=== PATIENT | female | born 1960 | race Caucasian/White ===

== ENCOUNTER → 2019-04-15 13:51 | Outpatient (CLI) | payer MEDICAID, SELFPAY ==
--- NOTE | 2019-04-15 13:57 | VDLE_ITS ---
RIGHT LEFT CFV is compressible, spontaneous, phasic, GSV is normal. competent and demonstrates normal CFV is compressible, spontaneous, phasic, augmentation. competent, and demonstrates normal Procedure augmentation. Exam performed in department. FV is compressible, spontaneous, phasic, The exam was of fair technical quality due to competent and demonstrates normal pt body habitus. augmentation. A preliminary report was called and/or faxed POP V is compressible, spontaneous, phasic, to Dr. Swann. competent and demonstrates normal augmentation. T/P Trunk is compressible. PTV is compressible. LT PerV is compressible. Interpretation Summary Deep veins of the left lower extremity are patent and compressible segmentally. There is no evidence of left lower extremity deep vein thrombosis. Valvular competence appears intact within the proximal deep venous system on the left . The left great saphenous vein appears patent and compressible segmentally. Ordering Physician: NGUYỄN SWANN Referring Physician: [facility] , Out of Performed By: Miguel Hui RVT
== END ==
DX: M79.662 Pain in left lower leg (principal)
CPT/HCPCS: 93971

== ENCOUNTER 2021-09-09 17:01 | Emergency (ER) | payer MEDICAID, SELFPAY ==
[2021-09-09 17:02] VITALS: BP 187/94; PULSE 94; RESP 15; TEMP 36.2; O2SAT 98; BMI 42.9
--- NOTE | 2021-09-09 18:02 | EDS_ITS ---
HPI History of Present Illness Chief Complaint: Abscess Informant: patient Narrative Narrative: Patient is a 61-year-old female presenting with continued drainage an d redness around an abscess on her back. She developed a pimple on her back about 9 days ago. She went to [facility] emergency room 2 days ago where they did an incision and drainage and started her on Bactrim. Packing was removed today. Patient had continued redness around the abscess and has had continued drainage after the packing was removed. Her sister was concerned that the infection was worsening. Patient states the pain has been improved since incision and drainage was performed. She denies any fever or systemic symptoms. No other complaints at this time. Was given outpatient referral for general surgery as there is concern that this is an infected sebaceous cyst PFSH PFS Medical History Anxiety Cholecystectomy planned Depression Diabetes Hypothyroidism Home Medications cephalexin 500 mg PO Q6 #40 cap 09/09/21 [Rx Last Taken Unknown] Allergy/AdvReac Type Severity Reaction Status Date / Time No Known Allergies Allergy Verified 09/09/21 17:02 Family History unable to obtain Social History Smoking Status: Never smoker ROS ROS ED Constitutional Constitutional ED: Denies chills or fever(s) Eyes Eyes: Denies change in vision Cardiovascular Cardiovascular: Denies chest pain Respiratory/Chest Respiratory/Chest: Denies dyspnea Gastrointestinal Gastrointestinal: Denies abdominal pain, nausea or vomiting Musculoskeletal Musculoskeletal: Reports back pain; Denies arthralgias or myalgias Integumentary Reports abscess and rash Neurologic Neurologic: Denies headache(s) or weakness Psychiatric Psychiatric: Denies depression EXAM Physical Exam Const Vital Signs: 09/09/21 17:02 09/09/21 20:12 Temperature 97.2 F L Temperature Source Temporal Pulse Rate 94 88 Respiratory Rate 15 15 Blood Pressure 187/94 H 175/89 H Blood Pressure Mean 125 Pulse Ox 98 96 Oxygen Delivery Method Room Air Positive well nourished and well developed General Appearance ED: well developed HEENT Reports moist mucous membranes Eyes PERRL and EOMs intact bilaterally Neck supple Chest Wall inspection of chest normal Resp normal respiratory effort and clear to auscultation bilaterally Cardio regular rate, regular rhythm and no murmurs GI normal to inspection, nondistended, normoactive bowel sounds Back/Spine no CVA tenderness Extremity normal to inspection General Extremety ED: Negative for edema or tenderness General Extremity: Negative for edema Neuro oriented x3 Sensorium / Orientation: alert Motor Exam: Negative for general weakness Skin Skin Narrative: 12 cm x 5 cm slightly irregular area of induration and erythema of the left lower back with a central area with a some slight purulent drainage. No fluctuance. No associated lymphangitic streaking. There are some mild associated warmth. Patient is scattered erythema and dry skin as well which she states is normal and consistent with her eczema. Image ED - Body Diagram Man: 1. Area of redness and induration with central drainage MDM MDM MDM Narrative Medical decision making narrative: Patient evaluated for continued drainage and redness on her back. 2 days ago she had 9 incision and drainage performed and packing placed. Packing was removed today at home. Family was concerned for worsening infection. Patient is not have any new systemic symptoms. She is currently on Bactrim. She does have some continued purulent drainage. This is expressed out. A bedside ultrasound performed by myself does not show any large areas of abscess that require repeat I&D. Patient will be started on Keflex in addition to her Bactrim. Her sister showed me pictures from 2 days ago and it looks slightly improved to me. It does not appear to be worsening. Patient is rebandaged and wound edges are demarcated by nursing staff. Counseled on further wound care such as continued warm compresses. Given return precautions and outpatient follow-up. Discharge Plan Triage Chief Complaint: Abscess ED Provider: Anaid Huang Dx/Rx/DC Orders Instructions: ED Abscess Antibiotic Treatment Only Prescriptions: New cephalexin 500 mg capsule 500 mg PO Q6 Qty: 40 RF: 0 Primary Care Provider: Loco Swann Referrals: Loco Swann MD [Primary Care Provider] - Dawood Jeffries MD [STAFF PHYSICIAN] - As Needed Disposition Disposition: Home, Self Care Discharge Date/Time: 09/09/21 20:15
[2021-09-09] MEDS: Cephalexin 250 MG Capsule 500 MG PO (20:11)
[2021-09-09 20:12] VITALS: BP 175/89; PULSE 88; RESP 15; O2SAT 96
== END 2021-09-09 20:15 | disposition home or self-care (01) ==
PROVIDERS: Emergency Provider Emergency Medicine; PCP Internal Medicine; Visit Provider Emergency Medicine
DX: L02.212 Cutaneous abscess of back [any part, except buttock and flank] (principal); E11.9 Type 2 diabetes mellitus without complications
CPT/HCPCS: 99283

== ENCOUNTER 2022-09-06 13:32 | Emergency (ER) | payer MEDICAID, SELFPAY ==
[2022-09-06 13:34] VITALS: BP 180/84; PULSE 82; RESP 16; TEMP 36.6; O2SAT 96; BMI 41.1
--- NOTE | 2022-09-06 16:03 | EX.ED.DYSGE1 ---
HPI History of Present Illness Chief Complaint: Wound Informant: patient Narrative Narrative: Patient sent in from [facility] secondary to red spots on her skin that they were concerned may be MRSA. Patient states she first noted the lesions about a week ago. She has a small lesion on her left lower leg, 2 on her right reece, and one on her left hand. She states it started like a small blister that filled with pus. She has not had fever or chills. She has not been on antibiotics. No one has tested to see if she has MRSA. [facility] Medical History Anxiety Cholecystectomy planned Depression Diabetes Hypothyroidism Home Medications cephalexin 500 mg capsule 500 mg PO Q6 #40 caps 09/09/21 [Rx Last Taken Unknown] doxycycline monohydrate 100 mg capsule 100 mg PO BID #20 CAPSULES 09/06/22 [Rx Last Taken Unknown] Allergy/AdvReac Type Severity Reaction Status Date / Time No Known Allergies Allergy Verified 09/06/22 13:34 Family History unable to obtain Social History Smoking Status: Never smoker ROS ROS ED Constitutional Constitutional ED: Denies chills or fever(s) Eyes Eyes: Denies change in vision or discharge from eye(s) ENT ENT ED: Denies discharge from eye(s), rhinorrhea or sore throat Cardiovascular Cardiovascular: Denies chest pain or palpitations Respiratory/Chest Respiratory/Chest: Denies cough or dyspnea Gastrointestinal Gastrointestinal: Denies abdominal pain, diarrhea, nausea or vomiting Genitourinary Genitourinary ED: Denies difficulty urinating or dysuria Musculoskeletal Musculoskeletal: Denies back pain or extremity pain Integumentary Reports rash; Denies Abrasions Neurologic Neurologic: Denies headache(s) or weakness Psychiatric Psychiatric: Denies anxiety or depression Allergic/Immunologic Allergic/Immunologic ED: Denies lip swelling or urticaria EXAM Physical Exam Const Vital Signs: 09/06/22 13:34 Temperature 98 F Temperature Source Temporal Pulse Rate 82 Respiratory Rate 16 Blood Pressure 180/84 H Blood Pressure Mean 116 Pulse Ox 96 Oxygen Delivery Method Room Air Positive well nourished and well developed General Appearance ED: well developed HEENT Reports moist mucous membranes Eyes PERRL Neck no lymphadenopathy Chest Wall inspection of chest normal and palpation of chest normal Resp normal respiratory effort and clear to auscultation bilaterally Cardio regular rate and regular rhythm GI normal to inspection, nondistended, normoactive bowel sounds Extremity Extremity Narrative: 1 small pustule noted to the webspace of the left hand between the thumb and index finger measuring approximate 3 mm in diameter. There is a healing small pustule on the left reece with no surrounding erythema or drainage. There is a black outlined border the patient states initially outlined in area of erythema and that has completely resolved. There are 2 small red pustules noted to the proximal right anterior reece with no surrounding cellulitis or sign of infection. There is no fluctuance. Neuro oriented x3 and no sensory deficits noted Motor Exam: strength 5/5 throughout MDM MDM MDM Narrative Medical decision making narrative: Patient does have areas of scattered healing wounds that appear to be pustules. She is clinically not ill. I advised her that there is no fluid at this time to swab and test for MRSA. Due to concern she will be given a course of doxycycline and wounds will be covered. She voices understanding and agreement. Discharge Plan Triage Chief Complaint: Wound Other Complaint: Cellulitis ED Provider: Divya Hale Dx/Rx/DC Orders Clinical Impression: Pustule Instructions: ED Wound Check (Infection) Prescriptions: New doxycycline monohydrate 100 mg capsule 100 mg PO BID Qty: 20 0RF No Action cephalexin 500 mg capsule 500 mg PO Q6 Qty: 40 0RF Primary Care Provider: Loco Swann Referrals: Loco Swann MD [Primary Care Provider] - 1 Week Disposition Disposition: Assisted Living Discharge Location: [facility]
--- NOTE | 2022-09-06 16:14 | ED.RN ---
called marino dupree regarding where to send rx. rxIS. does not come up in dr system. rx sent with pt for TT to assist
[2022-09-06] MEDS: Doxycycline 100 MG CAPSULE PO (16:42)
== END 2022-09-06 19:03 | disposition home or self-care (01) ==
PROVIDERS: Emergency Provider Emergency Medicine; PCP Internal Medicine; Visit Provider Emergency Medicine
DX: L08.9 Local infection of the skin and subcutaneous tissue, unspecified (principal); E11.9 Type 2 diabetes mellitus without complications
CPT/HCPCS: 99284

== ENCOUNTER 2022-09-24 18:54 | Inpatient (IN) | payer MEDICAID, SELFPAY ==
[2022-09-24] VITALS (8 sets, daily range): BP systolic 147–189; BP diastolic 77–113; PULSE 80–90; RESP 16–25; TEMP 36.4–36.8; O2SAT 85–97; BMI 46.0; BMI 43.2
--- NOTE | 2022-09-24 19:07 | EKG12_ITS ---
Test Reason : SOB Blood Pressure : / mmHG Vent. Rate : 085 BPM Atrial Rate : 085 BPM P-R Int : 178 ms QRS Dur : 076 ms QT Int : 376 ms P-R-T Axes : 046 -21 079 degrees QTc Int : 447 ms Normal sinus rhythm Normal ECG Confirmed by ZAFAR KAPADIA, YULY ([id number]), scientific publications editor HARSHIL CARDONA ([id number]) on 09/26/2022 8:54:50 AM Referred By: PRIYANKA Confirmed By:YULY STEPHEN MD
[2022-09-24] MEDS: Albuterol 2.5 MG/3 ML VIAL.NEB. INHALATION ×3 (19:13)
[2022-09-24 19:14] LABS: Absolute Lymphocyte Count 0.97 X10^3/uL (0.83-4.51); Absolute Neutrophil Count 3.7 X10^3/uL (2.0-7.7); Basophil# 0.01 X10^3/uL; Basophil% 0.2 % (0-1); Eosinophil# 0.19 X10^3/uL; Eosinophils% 3.4 % (0-5); Hematocrit 32.5 % (37-47); Hemoglobin 10.1 g/dL (12.0-15.0); Lymphocyte # 0.97 X10^3/ul (0.83-4.51); Lymphocyte % 17.5 % (19-41); Mean Corp Hgb Conc 31.1 g/dL (32-36); Mean Corpuscular Hgb 26.2 pg (27.0-32.0); Mean Corpuscular Volume 84.2 fL (81-99); Mean Platelet Vol. 10.2 fl (6.2-12.0); Monocyte# 0.61 X10^3/uL; NRBC Flagged by Analyzer 0 % (0-5); Neutrophil % 66.8 % (47-70); Platelet Count 254 K/mm3 (150-450); RBC Distribution Width CV 15.8 % (11.6-14.6); RBC Distribution Width SD 47.8 fl (35.1-43.9); Red Blood Count 3.86 M/mm3 (4.2-5.4); White Blood Count 5.5 K/mm3 (4.4-11.0)
--- NOTE | 2022-09-24 19:27 | ED.VIS.DYS ---
HPI History of Present Illness Chief Complaint: Shortness of Breath Narrative Narrative: Patient presents with dyspnea that started a few hours ago, a was worse when she was lying down. She was found to be hypoxic with a pulse ox of 85% on room air which improved to the mid 90s with 2 L. She feels better sitting up. She also has significant lower extremity edema. She tells me she does not have a history of CHF. She has no fever chills or cough. She has no pleuritic component. [facility] Medical History Anxiety Cholecystectomy planned Depression Diabetes Hypothyroidism Home Medications cephalexin 500 mg capsule 500 mg PO Q6 #40 caps 09/09/21 [Rx Last Taken Unknown] doxycycline monohydrate 100 mg capsule 100 mg PO BID #20 CAPSULES 09/06/22 [Rx Last Taken Unknown] Allergy/AdvReac Type Severity Reaction Status Date / Time No Known Allergies Allergy Verified 09/24/22 18:55 Surgical History History of cholecystectomy Social History Smoking Status: Never smoker ROS ROS ED ROS Narrative Past medical history: Reviewed, includes diabetes Medications: Reviewed Social history: Noncontributory Review of systems: All systems negative except as indicated General: No fever Eyes: No visual changes ENT: No upper airway congestion, normal voice Neck: No neck pain Cardiovascular: No chest pain Respiratory: Dyspnea as in HPI Gastrointestinal: No abdominal pain, nausea vomiting or diarrhea Genitourinary: No dysuria Musculoskeletal: Progressive worsening bilateral lower extremity edema Skin: No rash Neurological: No memory loss, confusion or any focal weakness EXAM Physical Exam Narrative Exam Narrative: Physical exam General: Patient appears uncomfortable Head: Normocephalic, Atraumatic Eyes: Conjunctiva not pale ENT: Moist mucous membranes Neck: Supple, Nontender, No lymphadenopathy Cardiovascular: Regular rate, Regular rhythm no obvious murmur. Auscultation is difficult but I can appreciate an S1 and S2 without an S3 or S4 sound. Respiratory: Diminished bilateral breath sounds with rales. Abdomen: Soft, Nontender, Nondistended Back: Nontender, Normal Inspection. Negative for: CVA tenderness Extremities: Nontender, bilateral symmetric lower extremity edema without any signs of cellulitis. Skin: Normal color, No rash Neurological: Alert, Normal Strength, Normal Sensation Const Vital Signs: 09/24/22 18:58 09/24/22 19:12 09/24/22 19:25 Temperature 98.3 F Temperature Source Oral Pulse Rate 88 85 Respiratory Rate 25 H 18 Respiratory Effort Short of Breath Blood Pressure 182/81 H Blood Pressure Mean 114 Pulse Ox 85 Oxygen Delivery Method Room Air 09/24/22 20:23 Temperature 97.9 F Temperature Source Oral Pulse Rate 90 Respiratory Rate 18 Respiratory Effort Blood Pressure 178/77 H Blood Pressure Mean 110 Pulse Ox 96 Oxygen Delivery Method Room Air MDM MDM MDM Narrative Medical decision making narrative: A. Problems addressed Patient is hypoxic. She likely has pneumonia on the x-ray which was treated with antibiotics, respiratory panel is pending. I scanned her for PE and this is negative. She has no evidence of CHF even though she had lower extremity edema and shortness of breath with hypoxia. She also has chronic leg pain which is being worked up and she asked for pain medications which I gave. Because she is hypoxic she will need admission. B. Amount and/or complexity of the data (2 out of 3) 1. CBC CMP BNP ordered and interpreted by me 2. Independent interpretation of test Telemetry: Sinus rhythm with a rate in the 80s without ectopy 3. I discussed with hospitalist for admission C. Risk of complications and/or morbidity Differential diagnosis: See above Lab Data Labs: Laboratory Results - last 24 hr 09/24/22 09/24/22 09/24/22 19:05 19:05 19:05 WBC 5.5 RBC 3.86 L Hgb 10.1 L Hct 32.5 L MCV 84.2 MCH 26.2 L MCHC 31.1 L RDW Std Deviation 47.8 H RDW Coeff of Vlad 15.8 H Plt Count 254 MPV 10.2 Immature Gran % (Auto) 1.100 H Neut % (Auto) 66.8 Lymph % (Auto) 17.5 L [place] % (Auto) 11.0 H Eos % (Auto) 3.4 Baso % (Auto) 0.2 Absolute Neuts (auto) 3.7 Absolute Lymphs (auto) 0.97 Nucleated RBC % 0 Sodium 140 Potassium 4.9 Chloride 107 Carbon Dioxide 27.0 Anion Gap 6 BUN 29 H Creatinine 1.19 H Estim Creat Clear Calc 41.24 Est GFR (MDRD) Af Amer 59 L Est GFR (MDRD) Non-Af 48 L BUN/Creatinine Ratio 24.4 H Glucose 302 H Calcium 8.7 Total Bilirubin 0.20 AST 15 ALT 20 Alkaline Phosphatase 92 Troponin I High Sens 24 B-Natriuretic Peptide 79.5 Total Protein 6.9 Albumin 3.1 L Globulin 3.8 Albumin/Globulin Ratio 0.8 L Radiography Diagnostic Testing: Clinical Impression(s) from Imaging Studies Chest X-Ray 09/24/22 19:40 IMPRESSION: Patchy bilateral infiltrates of unknown chronicity. In the appropriate clinical setting findings may represent pneumonia. Recommend short-term follow-up to resolution. Electronically Signed: Hubert Baker MD at 19:54 EST , Chest CTA 09/24/22 19:48 IMPRESSION: Normal CTA chest examination, without a demonstrated pulmonary embolism or arterial dissection. Scattered bilateral groundglass opacities with septal thickening, findings of uncertain chronicity. In the appropriate clinical setting findings may represent pneumonia including atypical or viral pneumonia. Electronically Signed: Hubert Baker MD at 20:42 EST , Chest x-ray read by me shows possible bilateral infiltrates. EKG Initial EKG: Comments: Sinus rhythm with a rate of 85. Normal SC and QTc intervals. No ischemic changes. Interpreted by emergency doctor Discharge Plan Triage Chief Complaint: Shortness of Breath ED Provider: Monroe Burns Dx/Rx/DC Orders Clinical Impression: Hypoxia, Pneumonia, Edema of both lower extremities Prescriptions: No Action cephalexin 500 mg capsule 500 mg PO Q6 Qty: 40 0RF doxycycline monohydrate 100 mg capsule 100 mg PO BID Qty: 20 0RF Primary Care Provider: Loco Swann Referrals: Loco Swann MD [Primary Care Provider] - Disposition Disposition: Acute Care Hospital [facility]
[2022-09-24 19:31] LABS: BNP,B-Type NATRIURETIC PEPTIDE 79.5 pg/mL (0-100)
[2022-09-24 19:34] LABS: ALB/GLOB Ratio 0.8 RATIO (0.9-2.4); AST(SGOT) 15 U/L (15-37); Alanine Aminotransfer ALT/SGPT 20 U/L (13-56); Albumin, Serum 3.1 g/dL (3.2-5.0); Alkaline Phosphatase 92 U/L (45-117); Anion Gap 6 (5-15); BUN 29 mg/dL (7-18); BUN/Creat Ratio 24.4 RATIO (10-20); Calcium,Total 8.7 mg/dL (8.5-10.1); Chloride 107 mmol/L (98-107); Creatinine, Serum 1.19 mg/dL (0.55-1.02); EST Glomerular Filtration Rate 48 mL/min (>60); Est Glom Filt Rate - Afr Amer 59 mL/min (>60); Estimated Creatinine Clearance 41.24 ml/min; Globulin 3.8 g/dL (2.2-4.2); Glucose 302 mg/dL (74-106); Potassium 4.9 mmol/L (3.5-5.1); Protein, Total 6.9 g/dL (6.4-8.2); Sodium Level 140 mmol/L (136-145); Troponin-I HS (w/2H Reflex) 24 pg/mL (3.0-54.0)
--- NOTE | 2022-09-24 19:40 | RAD_ITS ---
INDICATION: sob EXAMINATION/TECHNIQUE: X-RAY - portable upright AP chest x-ray COMPARISON: None. FINDINGS: LINES/DEVICES: None. LUNGS: Patchy bilateral airspace opacities without consolidation or pleural effusion. No vascular congestion. MEDIASTINUM AND CARDIOVASCULAR STRUCTURES: Cardiac silhouette not enlarged. Central airways and mediastinal contour are unremarkable. BONES AND SOFT TISSUES: Unremarkable. RAD/Chest 1 View (Portable) IMPRESSION: Patchy bilateral infiltrates of unknown chronicity. In the appropriate clinical setting findings may represent pneumonia. Recommend short-term follow-up to resolution. Electronically Signed: Hubert Baker MD at 19:54 EST ,
--- NOTE | 2022-09-24 19:48 | CT_ITS ---
STUDY: CTA CHEST REASON FOR EXAM: Female, 62 years old. Shortness of breath RADIATION DOSAGE (If Supplied By Facility): CTDIvol = ( 19.60 ) mGy, DLP = ( 704.49 ) mGycm TECHNIQUE: The examination was performed with the intravenous administration of 100mL Isovue-370. Post-processing of the angiographic images was performed, with multiplanar reformation and 3D reconstruction. Individualized dose optimization techniques were used for this CT. COMPARISON: None. FINDINGS: Normal enhancement of the main pulmonary artery and right and left pulmonary arteries. Normal enhancement of the bilateral peripheral pulmonary arteries. There is no demonstrated pulmonary embolism. Normal thoracic aorta and visualized great vessels. There is no demonstrated aortic dissection. Normal heart and pericardium. Normal mediastinum. Normal hilar regions. Normal visualized trachea and bronchi. Scattered bilateral dependent and/or fibrotic changes with patchy, multifocal groundglass opacities, peripheral septal thickening. No consolidations. Left basilar pleural effusion. Normal chest wall structures. No acute or aggressive osseous abnormality. No acute findings in the upper abdomen CT/CTA Chest W/WO Contrast IMPRESSION: Normal CTA chest examination, without a demonstrated pulmonary embolism or arterial dissection. Scattered bilateral groundglass opacities with septal thickening, findings of uncertain chronicity. In the appropriate clinical setting findings may represent pneumonia including atypical or viral pneumonia. Electronically Signed: Hubert Baker MD at 20:42 EST ,
[2022-09-24] MEDS: Ceftriaxone 1 GM/50 ML BAG IV (20:17)
[2022-09-24] MEDS: oxyCODONE 5 MG Tablet PO (20:56)
[2022-09-24 21:13] LABS: Reflex Troponin-HS? (from REC) Y
--- NOTE | 2022-09-24 21:21 | HP.PCM_ITS ---
HPI - General General Date of Admission: 09/24/22 Date of Service: 09/24/22 Chief Complaint: Dyspnea, hypoxia. 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, Chronic lymphedema,Possible CKD stage III unclear subtype, Possible chronic normocytic anemia, Morbid Obesity, Diabetes mellitus type II, Hypothyroidism, Depression and Anxiety, Prolonged hospitalization 1-08/2022 following LLE abscess with surgical intervention with from her description bacteremia and sepsis treated with daptomycin who presents to the [facility] ED on 09/24/22 with history of dyspnea starting approximately 2 to 3 hours prior to ED presentation noted to be worse exertion and certain positional changes with unchanged chronic BL LE edema/lym phedema with no specific recent weight gain nor any recent cough, congestion, fever or chills, but she does report history over the last ~ 4 weeks since her discharge BL LE paresthesias with mildly decreased sensation and severe constant aching pain to BL LE as well as gait difficulties with recent assessment at her facility with noted oxygenation 85% on room air which improved to mid 90s with 2 L nasal cannula. She also denies any recent chest pain. She notes difficulty walking secondary to the LE weakness and pain. Work-up in the ED included T98.3, heart rate 88, BP initially 182/81, respiratory rate 25, initially 85% on room air however improved following interventions 97% 2 L nasal cannula, CBC with WC 5.5, hemoglobin 10.1, MCV 84.2, platelet 254 with increased immature granulocytes, CMP with BUN/creat 29/1.19, glucose 302, unremarkable Paddock profile otherwise, troponin 24, BNP 79.5, chest x-ray with bilateral patchy infiltrates of unclear chronicity possibly concerning for pneumonia, follow-up CTPA with no evidence of PE or arterial dissection with scattered bilateral groundglass opacities with septal thickening of unclear chronicity possibly representing pneumonia including atypical or viral pneumonia, pending COVID flu rapid antigen testing as well as full respiratory viral panel per ED at request of evaluation. In the ED patient administered oxycodone 5 mg p.o. x1, a zithromycin 500 mg IV x1 and Rocephin 1 g IV x1 and albuterol treatments. [facility] Medical History (Updated 09/24/22 @ 22:[address] Preeti Culver MD) Anxiety and depression Chronic acquired lymphedema Chronic anemia CKD (chronic kidney disease), stage III Diabetes mellitus, type 2 HLD (hyperlipidemia) HTN (hypertension) Hypothyroidism Morbid obesity SACHIN (obstructive sleep apnea) Home Medications atorvastatin 10 mg tablet 10 mg PO DAILY 09/24/22 [History Last Taken Unknown] ergocalciferol (vitamin D2) 1,250 mcg (50,000 unit) capsule (Drisdol) 1,250 mcg PO QWEEK 09/24/22 [History Last Taken Unknown] escitalopram oxalate 10 mg tablet 10 mg PO DAILY 09/24/22 [History Last Taken Unknown] fenofibrate nanocrystallized 48 mg tablet (Tricor) 48 mg PO DAILY 09/24/22 [History Last Taken Unknown] gabapentin 100 mg capsule 200 mg PO BID 09/24/22 [History Last Taken Unknown] gabapentin 100 mg capsule 200 mg PO QHS 09/24/22 [History Last Taken Unknown] insulin glargine 100 unit/mL subcutaneous solution 45 unit subcut QHS 09/24/22 [History Last Taken Unknown] insulin lispro 100 unit/mL subcutaneous cartridge 09/24/22 [History Last Taken Unknown] levothyroxine 125 mcg tablet 125 mcg PO DAILY 09/24/22 [History Last Taken Unknown] metoclopramide HCl 5 mg tablet 5 mg PO BID 09/24/22 [History Last Taken Unknown] pantoprazole 40 mg tablet,delayed release 40 mg PO DAILY 09/24/22 [History Last Taken Unknown] potassium chloride 10 mEq tablet,extended release 10 meq PO DAILY 09/24/22 [History Last Taken Unknown] ropinirole 4 mg tablet 4 mg PO QHS 09/24/22 [History Last Taken Unknown] Allergy/AdvReac Type Severity Reaction Status Date / Time No Known Allergies Allergy Verified 09/24/22 18:55 Family History (Updated 09/24/22 @ 22:[address] Preeti Culver MD) Mother Heart disease Hypertension Diabetes Father Prostate cancer Surgical History (Updated 09/24/22 @ 22:[address] Preeti Culver MD) H/O cataract removal with insertion of prosthetic lens History of cholecystectomy History of surgery on lower extremity Social History (Updated 09/24/22 @ 22:[address] Preeti Culver MD) housing: group home Smoking Status: Never smoker alcohol intake: never substance use type: does not use ROS ROS Narrative Admission Review of Systems: CONSTITUTIONAL: No weight loss, fever, chills, + weakness or fatigue. HEENT: Eyes: No visual loss, blurred vision, double vision or yellow sclerae. Ears, Nose, Throat: No hearing loss, sneezing, congestion, runny nose or sore throat. SKIN: No rash or itching, lesions, wounds. CARDIOVASCULAR: + Chronic lymphedema, from discussions does have some chronic possible orthopnea complaints but she uses CPAP and is not wearing it at night. No chest pain, chest pressure or chest discomfort, palpitations, syncopal events. RESPIRATORY: + shortness of breath. No cough or sputum, wheezing, hemoptysis. GASTROINTESTINAL: No anorexia, nausea, vomiting or diarrhea, abdominal pain, melena, BRBPR. GENITOURINARY: No dysuria, frequency, urgency or retention. NEUROLOGICAL: No headache, dizziness, syncope, paralysis, ataxia, numbness or tingling in the extremities, focal weakness, change in bowel or bladder control, seizure. MUSCULOSKELETAL: + muscle, back pain, joint pain or stiffness. HEMATOLOGIC: + anemia, bleeding or bruising. LYMPHATICS: No enlarged nodes. No history of splenectomy. PSYCHIATRIC: + history of depression or anxiety. ENDOCRINOLOGIC: No reports of sweating, cold or heat intolerance. No polyuria or polydipsia. ALLERGIES: No history of asthma, hives, eczema or rhinitis. Vital Signs Vital Signs Vital Signs: 09/24/22 18:58 09/24/22 19:12 09/24/22 19:25 Temperature 98.3 F Temperature Source Oral Pulse Rate 88 85 Respiratory Rate 25 H 18 Respiratory Effort Short of Breath Blood Pressure 182/81 H Blood Pressure Mean 114 Pulse Ox 85 Oxygen Delivery Method Room Air 09/24/22 20:23 09/24/22 21:07 Temperature 97.9 F 97.9 F Temperature Source Oral Oral Pulse Rate 90 88 Respiratory Rate 18 18 Respiratory Effort Blood Pressure 178/77 H 187/100 H Blood Pressure Mean 110 129 Pulse Ox 96 97 Oxygen Delivery Method Room Air Room Air Weight Weight: 268 lb 4.841 oz Body Mass Index (BMI) 46.0 Physical Exam Narrative Physical Examination: General: Awake, alert, oriented x 3 and cooperative, laying flat in the ED bed, fatigued, no distress noted. Skin: Normal color, normal turgor, no icterus, no cyanosis except for some mild stasis changes to bilateral lower extremity. HEENT: AT/NC, EOMI, PERRLA, MMM, no carotid bruits, no obvious marked JVD noted; however, thickened neck makes evaluation difficult. Lungs: Mildly diminished, greater bases, moderate effort, no evidence of any respiratory distress, despite CT findings and the chest x-ray findings no rales, ronchi or wheezing. Heart: Currently regular rate and rhythm; no gallop, rub audible. Abdomen: Soft, morbidly obese NTTP, no obvious distention, distant normal BS, no obvious HSM however habitus makes evaluation difficult. Extremities: No cyanosis, no clubbing, chronic bilateral lower extremity lymphedema, no marked pitting, discomfort to the lower extremities over the last several weeks confounded by restless legs. Neurological: Patient awake, alert, oriented as noted, cognitive function intact; pupils equally reactive to light and accommodation, cranial nerves II- XII grossly normal, moving all 4 extremities except significant restlessness of the lower extremities, subjective paresthesias bilateral lower extremities, difficult to assess given movements but concern for bilateral mildly decreased reflexes lower extremity, strength bilaterally reduced but potentially more functional, equivocal Babinski Psychiatric: Affect appears fatigued, no acute evidence of depressive or anxiety feelings. Results Lab / Micro Data Result Diagrams: 09/24/22 19:05 09/24/22 19:05 Labs: Laboratory Results - last 24 hr 09/24/22 19:05: WBC 5.5, RBC 3.86 L, Hgb 10.1 L, Hct 32.5 L, MCV 84.2, MCH 26.2 L, MCHC 31.1 L, RDW Std Deviation 47.8 H, RDW Coeff of Vlad 15.8 H, Plt Count 254, MPV 10.2, Immature Gran % (Auto) 1.100 H, Neut % (Auto) 66.8, Lymph % (Auto) 17.5 L, Ogle % (Auto) 11.0 H, Eos % (Auto) 3.4, Baso % (Auto) 0.2, Absolute Neuts (auto) 3.7, Absolute Lymphs (auto) 0.97, Nucleated RBC % 0 09/24/22 19:05: Sodium 140, Potassium 4.9, Chloride 107, Carbon Dioxide 27.0, Anion Gap 6, BUN 29 H, Creatinine 1.19 H, Estim Creat Clear Calc 41.24, Est GFR (MDRD) Af Amer 59 L, Est GFR (MDRD) Non-Af 48 L, BUN/Creatinine Ratio 24.4 H, Glucose 302 H, Calcium 8.7, Total Bilirubin 0.20, AST 15, ALT 20, Alkaline Phosphatase 92, Troponin I High Sens 24, Total Protein 6.9, Albumin 3.1 L, Globulin 3.8, Albumin/Globulin Ratio 0.8 L 09/24/22 19:05: B-Natriuretic Peptide 79.5 Radiology Impression Chest X-Ray 09/24/22 19:40 IMPRESSION: Patchy bilateral infiltrates of unknown chronicity. In the appropriate clinical setting findings may represent pneumonia. Recommend short-term follow-up to resolution. Electronically Signed: Hubert Baker MD at 19:54 EST , Chest CTA 09/24/22 19:48 IMPRESSION: Normal CTA chest examination, without a demonstrated pulmonary embolism or arterial dissection. Scattered bilateral groundglass opacities with septal thickening, findings of uncertain chronicity. In the appropriate clinical setting findings may represent pneumonia including atypical or viral pneumonia. 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, Chronic lymphedema,Possible CKD stage III unclear subtype, Possible chronic normocytic anemia, Morbid Obesity, Diabetes mellitus type II, Hypothyroidism, Depression and Anxiety, Prolonged hospitalization 1-08/2022 following LLE abscess with surgical intervention with from her description bacteremia and sepsis treated with daptomycin who presents to the [facility] ED on 09/24/22 with history of dyspnea starting approximately 2 to 3 hours prior to ED presentation noted to be worse exertion and certain positional changes with unchanged chronic BL LE edema/lymphedema with no specific recent weight gain nor any recent cough, congestion, fever or chills, but she does report history over the last ~ 4 weeks since her discharge BL LE paresthesias with mildly decreased sensation and severe constant aching pain to BL LE as well as gait difficulties with recent assessment at her facility with noted oxygenation 85% on room air which improved to mid 90s with 2 L nasal cannula. #1. Acute Hypoxia secondary to Possible Acute Viral Pneumonia, Possible CHF Exacerbation, confounded by chronic BL LE lymphedema: Given BNP normal, trop normal, EKG without acute findings, will admit to MS, maintain on oxygen with wean as tolerated to room air, continue ATC duonebs, PRN albuterol, maintain on IV Rocephin and Azithromycin, HOB, IS parameters w/ pending sputum cultures and urine antigen and procalcitonin. Full respiratory panel pending per ED. Will add COVID PCR request. Will also request ECHO to be cautious. Pending labs/evaluation if unremarkable may trial pulse dose IV lasix. #2. Acute Bilateral Lower Extremity Weakness w/ Paresthesias, Neuropathy with Gait imbalance: Will maintain on fall precautions, PRN pain regimen, obtain MRI thoracic and lumbar spine without contrast, obtain CPK to assess for myopathy, monitor electrolytes w/ Mag/Phos also requested, evaluation of anemia as noted, PT/OT evaluation and treatment, obtain Neuropathy labs including ESR, LAINE, SPEP. If work-up unremarkable consider outpatient EMG/NCV. Once work-up obtained would consider Neurology consultation. Additionally, will obtain DORCAS/PVRs. Of note gait imbalance could be associated with this presentation but to be cautious w ill obtain MRI brain concurrently. #3. Recent Prolonged Hospitalist for LLE Abscess, Bacteremia, Possible Sepsis: Patient from her report had been hospitalized for nearly a month in [place] with left lower extremity abscess requiring surgical intervention and from review of medication records prolonged treatment with daptomycin, notes she is improved from this but since then following discharge has had the lower extremity weakness and paresthesias. #4. Anemia, normocytic, unclear chronicity: Admission hemoglobin 10.1, MCV 84.2, will obtain iron panel, ferritin, vitamin B12/folic acid, guaiac to be cautious, repeat CBC in AM. #5. Possible Chronic Kidney Disease Stage III unclear subtype versus renal insufficiency versus GASTON: Admission BUN/Cr 29/1.19, baseline renal function unknown however patient's current renal function GFR 48, repeat BMP in AM which will help further elucidate if this is chronic. #6 Diabetes mellitus type II: Hold oral home regimen, continue home insulin regimen, ADA diet, accu checks w/ ISS, HgbA1c pending. #7. Hypertension: Previous records appears that she had been on lisinopril, attempted to clarify if this is ongoing, currently blood pressure is elevated, PRN hydralazine in the interim. #8. Hyperlipidemia: We will continue patient on statin and fenofibrate therapy. #9. Hypothyroidism: We will continue patient home levothyroxine regimen, TSH pending. #10. Anxiety and depression: We will continue patient on escitalopram regimen. #11. Chronic bilateral lower extremity lymphedema: We will place night Alessio wraps if able to tolerate with elevation. Ongoing evaluation as noted #1. #12. SACHIN: CPAP q HS if willing to try. #13. Restless leg syndrome: We will continue patient on Requip regimen. #14. DVT prophylaxis: Lovenox. #15. CODE status: Patient does not have HCPOA or living will in place. Discussed CODE status at length including difference between FULL code, DNR-CCA and DNR-CC status. Following discussions about the differences in these status, requested Full Code status. Advanced Care Planning Face to Face Time: 16 adilia ulises. Admission Evaluation Time spent evaluating chart, patient history, patient evaluation, care planning and discussion with specialists: 76 minutes. Charges/Coding Visit Charges Inpatient E&M: 02824 Init Hosp L3 Procedures Hospitalists Procedures: 12170 Advncd Care Plan 30 Min
[2022-09-24 21:49] LABS: Troponin-I HS 30 pg/mL (3.0-54.0)
[2022-09-24 22:40] LABS: Procalcitonin 0.06 ng/mL (0.00-0.09)
[2022-09-24 22:47] LABS: CPK Total, Creatine Kinase 59 U/L (26-192); CRP < 2.90 mg/L (0.0-3.0); Magnesium 1.4 mg/dL (1.6-2.6); Phosphorus 2.5 mg/dL (2.5-4.9)
--- NOTE | 2022-09-24 22:52 | ART_ITS ---
Reason For Study: LEG PAIN Procedure A bilateral lower extremity continuous wave Doppler with analog waveform analysis and ankle brachial indexes. Left Segmental Pressures Left brachial= 147mmHg. Left posterior tibial artery = >254mmHg. Left dorsalis pedis artery = >254mmHg. Left digit = 115 mmHg. The left posterior tibial artery waveforms are triphasic. The left dorsalis pedis waveforms are triphasic. Right Segmental Pressures Right posterior tibial artery = >254mmHg. Right dorsalis pedis artery = >254mmHg. Right digit = 116 mmHg. The right posterior tibial artery waveforms are triphasic. The right dorsalis pedis waveforms are triphasic. Indices The right ankle brachial index by the posterior tibial artery is N/C. The right ankle brachial index by the dorsalis pedis is N/C. The right digital-brachial index is 0.79. The left ankle brachial index by the posterior tibial artery is N/C. The left ankle brachial index by the dorsalis pedis is N/C. The left digital-brachial index is 0.78. VL/Ankle Brachial Index Interpretation Summary Technically limited examination due to noncompliant stability of bilateral PT a nd DP vessels. The right posterior tibial and dorsalis pedis demonstrate normal triphasic wave forms with noncompressibility suggesting medial calcification of vessel gilbert Normal right digital brachial index of 0.79 The left posterior tibial and dorsalis pedis demonstrate normal triphasic Doppl er waveforms with noncompressibility suggesting medial calcification of vessel gilbert. Normal left digital brachial index of 0.78 Ordering Physician: Preeti Culver Referring Physician: Claus Swann Performed By: Carlos Brand RVT
--- NOTE | 2022-09-24 22:52 | ECHOD_ITS ---
Reason For Study: Dyspnea/SOB Procedure This was a 2D Doppler, Color Flow transthoracic echocardiogram. The study was technically difficult. Exam performed portable in patient room. Left Ventricle Moderate concentric left ventricular hypertrophy. Based upon the 2D echocardiographic images obtained there appears to be normal left ventricular size, wall motion, and systolic function. The estimated ejection fraction is 65 %. Diastolic function is indeterminate. Right Ventricle Normal RV size. Normal systolic function. Atria Normal left atrium. Normal right atrium. No doppler evidence for ASD. Mitral Valve There is mild mitral annular calcification. Extension of the mitral annular calcification onto the base of the posterior mitral valve leaflet. Mild (1+) mitral valve insufficiency. Tricuspid Valve Normal tricuspid valve. Trivial tricuspid valve insufficiency. Unable to estimate RV systolic pressure/pulmonary artery pressure due to technically difficult study. Aortic Valve Trisinus/trileaflet aortic valve. Mild focal aortic valve thickening. Pulmonic Valve The pulmonic valve is not well visualized. Trivial pulmonic valve insufficiency. Great Vessels Normal sized aortic root. Pericardium/Pleural No pericardial effusion. MMode/2D Measurements & Calculations LVIDd: 4.7 cm IVSd: 1.6 cm Ao root diam: 3.1 cm LVIDs: 3.1 cm LVPWd: 1.4 cm RVDd: 3.2 cm FS: 32.6 % LAV(MOD-bp): 49.2 ml LVAd ap4: 22.0 cm2 SV(MOD-sp4): 37.9 ml LAV(MOD-bp) Indexed: 22.5 ml/m2 LVLd ap4: 7.2 cm LAV(MOD-sp2): 47.0 ml EDV(MOD-sp4): 55.5 ml LAV(MOD-sp4): 44.3 ml EDV(sp4-el): 56.8 ml LVAs ap4: 11.2 cm2 LVLs ap4: 6.0 cm ESV(MOD-sp4): 17.7 ml ESV(sp4-el): 17.9 ml EF(MOD-sp4): 68.2 % EF(sp4-el): 68.5 % SV(sp4-el): 38.9 ml LA A4 area: 17.8 cm2 LA dimension(2D): 4.1 cm RA A4 area: 9.5 cm2 Time Measurements MV dec time: 0.25 sec Doppler Measurements & Calculations MV E max eze: 102.3 cm/sec Lat Peak E' Eze: 5.7 cm/sec Med Peak E' Eze: 4.9 cm/sec MV A max eze: 85.2 cm/sec E/E' lat: 18.0 E/E' med: 21.1 MV E/A: 1.2 Ao V2 max: 177.0 cm/sec LV V1 max: 113.3 cm/sec MV dec slope: 404.5 cm/sec2 Ao max P.5 mmHg LV V1 max P.1 mmHg Ao V2 mean: 134.9 cm/sec Ao mean P.9 mmHg Ao V2 VTI: 40.6 cm PA V2 max: 109.3 cm/sec ECHO/Echo Complete Interpretation Summary The study was technically difficult. Based upon the 2D echocardiographic images obtained there appears to be normal left ventricular size, wall motion, and systolic function The estimated ejection fraction is 65 %. Moderate concentric left ventricular hypertrophy. There is mild mitral annular calcification. Extension of the mitral annular calcification onto the base of the posterior mi tral valve leaflet. Mild (1+) mitral valve insufficiency. Trivial tricuspid valve insufficiency. Mild focal aortic valve thickening. Trivial pulmonic valve insufficiency. Unable to estimate RV systolic pressure/pulmonary artery pressure due to techni rach difficult study. Diastolic function is indeterminate. Ordering Physician: Preeti Culver Referring Physician: Claus Swann Performed By: Anamika Johnson RDCS, RVT
[2022-09-25] VITALS (12 sets, daily range): BP systolic 124–178; BP diastolic 65–87; PULSE 76–89; RESP 16–22; TEMP 36.6–36.9; O2SAT 83–99; BMI 43.2
[2022-09-25] MEDS: Enoxaparin 40 MG/0.4 ML Syringe SC ×3 (01:54→22:12)
[2022-09-25] MEDS: Magnesium Sulfate 4gm/100mL 4 GM/100 ML IV.SOLN. IV (01:54)
[2022-09-25 02:16] LABS: Bedside Glucose 224 mg/dL (74-106)
--- NOTE | 2022-09-25 06:01 | CPS ---
PT isn't compliant with cpap at home, does not want it here either
[2022-09-25 06:14] LABS: Erythrocyte Sedimentation Rate 19 mm/hr (0-30)
[2022-09-25 06:16] LABS: Absolute Lymphocyte Count 1.09 X10^3/uL (0.83-4.51); Absolute Neutrophil Count 3.3 X10^3/uL (2.0-7.7); Basophil# 0.02 X10^3/uL; Basophil% 0.4 % (0-1); Eosinophil# 0.18 X10^3/uL; Eosinophils% 3.5 % (0-5); Hematocrit 28.1 % (37-47); Hemoglobin 8.6 g/dL (12.0-15.0); Lymphocyte # 1.09 X10^3/ul (0.83-4.51); Mean Corp Hgb Conc 30.6 g/dL (32-36); Mean Corpuscular Hgb 26.1 pg (27.0-32.0); Mean Corpuscular Volume 85.4 fL (81-99); Monocyte# 0.61 X10^3/uL; Monocyte% 11.7 % (0-10); NRBC Flagged by Analyzer 0 % (0-5); Neutrophil # 3.26 X10^3/uL (2.7-7.7); Neutrophil % 62.6 % (47-70); Platelet Count 236 K/mm3 (150-450); RBC Distribution Width CV 15.8 % (11.6-14.6); RBC Distribution Width SD 48.7 fl (35.1-43.9); Red Blood Count 3.29 M/mm3 (4.2-5.4); White Blood Count 5.2 K/mm3 (4.4-11.0)
[2022-09-25 06:32] LABS: ALB/GLOB Ratio 0.8 RATIO (0.9-2.4); AST(SGOT) 14 U/L (15-37); Alanine Aminotransfer ALT/SGPT 19 U/L (13-56); Albumin, Serum 2.7 g/dL (3.2-5.0); Alkaline Phosphatase 65 U/L (45-117); Anion Gap 7 (5-15); BUN 28 mg/dL (7-18); BUN/Creat Ratio 26.9 RATIO (10-20); Calcium,Total 8.6 mg/dL (8.5-10.1); Chloride 107 mmol/L (98-107); Cholesterol 138 mg/dL (200); Creatinine, Serum 1.04 mg/dL (0.55-1.02); EST Glomerular Filtration Rate 57 mL/min (>60); Est Glom Filt Rate - Afr Amer 69 mL/min (>60); Estimated Creatinine Clearance 49.17 ml/min; Ferritin 75 ng/mL (8-252); Globulin 3.4 g/dL (2.2-4.2); Glucose 183 mg/dL (74-106); High Density Lipoprotein 51 mg/dL; Iron 51 ug/dL (50-170); Iron Binding Capacity,Total 265 ug/dL (250-450); Magnesium 2.5 mg/dL (1.6-2.6); PERCENT IRON SATURATION 19.2 % (15.0-55.0); Potassium 4.6 mmol/L (3.5-5.1); Protein, Total 6.1 g/dL (6.4-8.2); Sodium Level 140 mmol/L (136-145); Triglycerides 92 mg/dL; Very Low Density Lipoprotein 18 mg/dL (5-40)
[2022-09-25] MEDS: Ipratropium/Albuterol Sulfate 3 ML AMPUL.NEB INHALATION ×3 (07:34→19:38)
[2022-09-25 07:40] LABS: Bedside Glucose 151 mg/dL (74-106)
[2022-09-25 08:31] LABS: Vitamin B12 327 pg/mL (211-911)
[2022-09-25 08:34] LABS: Hemoglobin A1c 6.9 % (3.8-5.6)
--- NOTE | 2022-09-25 09:00 | MRI_ITS ---
STUDY: MRI THORACIC SPINE WITHOUT CONTRAST REASON FOR EXAM: Female, 62 years old. BL LE weakness, paresthesias TECHNIQUE: Standardized fat and water weighted pulse sequences were obtained in the sagittal and axial planes. COMPARISON: None. FINDINGS: Normal kyphosis of the thoracic spine. There is no substantial scoliosis. T1-2, T2-3, T3-4, T4-5, T5-6, T6-7, T7-8, T8-9, T9-10, T10-11, T11-12: Minimal ventral extradural defect at T7-T8 disc space level is small posterior bulging annulus. Normal disc space height throughout the thoracic spine. Normal vertebral body heights and alignment. Normal central canal and bilateral intervertebral neural foramina. Normal visualized thoracic cord. Normal conus medullaris that terminates at the T12-L1 disc space level. The soft tissue structures are unremarkable. MRI/Spine Thoracic (Routine) IMPRESSION: Small T7-T8 posterior bulging annulus high was negative MRI of the thoracic spine without contrast. Electronically Signed: Edgardo Garcia MD at 12:11 EST ,
--- NOTE | 2022-09-25 09:00 | MRI_ITS ---
EXAM: MR HEAD WITHOUT INTRAVENOUS CONTRAST CLINICAL INDICATION: Gait imbalance, LE weakness. TECHNIQUE: Multiplanar and multisequence MR images of the brain were obtained without intravenous contrast. This report was created using [email or web address] report generation technology. COMPARISON: None. FINDINGS: BRAIN AND EXTRA-AXIAL SPACES: T2 FLAIR hyperintensity foci in the white matter of both cerebral hemispheres are chronic white matter ischemic changes. Lingular T2 FLAIR hyperintensity foci across the pontine tegmentum are also chronic white matter ischemic changes. No intra- or extra-axial hemorrhage. Posterior fossa structures are unremarkable. Ventricles are appropriate for age. No hydrocephalus. Basal cisterns are patent. No diffusion restriction to suspect acute or subacute ischemic infarct. No remote cortical-based ischemic infarcts or old lacunar infarcts. No midline shift and no mass effects. SELLA: Unremarkable. Normal sella turcica, pituitary gland, infundibular stalk, optic chiasm and hypothalamus. AUDITORY SYSTEM: Unremarkable. The internal auditory canals are patent. BONES/JOINTS: Unremarkable. No discrete lytic or blastic abnormalities. SINUSES: Moderately pronounced mucosal thickening of the right sphenoid sinus. Normal remaining paranasal sinuses. MASTOID AIR CELLS: Unremarkable as visualized. Clear. ORBITS: Unremarkable as visualized. Both globes, extraocular muscles, optic nerves and retrobulbar fat appear unremarkable. VASCULATURE: Unremarkable as visualized. Normal flow voids in the major intracranial circulation. MRI/Brain without Contrast IMPRESSION: 1. No MRI evidence of acute or subacute ischemic infarct or acute intracranial abnormality. 2. Chronic white matter ischemic changes in both cerebral hemispheres and across the central pontine tegmentum. 3. Moderately pronounced right sphenoid sinusitis. Electronically Signed: Edgardo Garcia MD at 12:09 [facility] ,
--- NOTE | 2022-09-25 09:00 | MRI_ITS ---
STUDY: MRI LUMBAR SPINE WITHOUT CONTRAST REASON FOR EXAM: Female, 62 years old. Bilateral lower extremity weakness and paresthesia. TECHNIQUE: Standardized fat and water weighted pulse sequences were obtained in the sagittal and axial planes. COMPARISON: None FINDINGS: T10-T11, T11-T12 and T12-L1: (Sagittal only). Normal endplates. Normal disc height, hydration and morphology. No ventral extradural defects. Normal central canal and bilateral intervertebral neural foramina. Normal lumbar lordosis. There is no substantial scoliosis. Normal conus medullaris that terminates at the T12-L1 disc space level. L1-2: Normal endplates. Normal disc height, hydration and morphology. Normal bilateral facet joints. Normal central canal and bilateral lateral recesses. Normal bilateral intervertebral neural foramina. L2-3: Normal endplates. Minimal disc space height narrowing and minimal loss of disc hydration. Small right posterior L3 supra pedicular level foraminal zone disc protrusion without displacement of nerve root. Mild asymmetric degenerative facet arthropathy, right greater than left. Normal central canal and bilateral lateral recesses. Mild stenosis of the right intervertebral neural foramen. Normal left intervertebral neural foramen. L3-4: Normal endplates. Normal disc height, hydration and morphology. Small peripheral posterior bulging annulus in both sides causing mild stenosis of the bilateral intervertebral neural foramina. Mild to moderate bilateral degenerative facet arthropathy. Mild central canal stenosis with an AP canal diameter of 9 mm. Normal bilateral lateral recesses. Right dorsolateral extradural defect due to right posterior ligamentum flavum hypertrophy and right medial synovial hypertrophy with a tiny synovial cyst. L4-5: Normal endplates. Normal disc height, hydration and morphology. Normal bilateral facet joints. Normal central canal and bilateral lateral recesses. Normal bilateral intervertebral neural foramina. L5-S1: Normal endplates. Mild disc space height narrowing. Small posterior bulging annulus. Normal facet joints. Normal central canal and normal bilateral lateral recesses. Mild stenosis of the left intervertebral neural foramen. Normal right intervertebral neural foramen. Normal visualized sacral ala. Normal visualized paraspinous soft tissue structures. MRI/Spine Lumbar (Routine) IMPRESSION: 1. Small right posterior L3 supra pedicular level foraminal zone disc protrusion coming from the L2-L3 disc space causing mild stenosis of the right intervertebral neural foramen but no displacement of the right L2 nerve. 2. Mild central canal stenosis at L3-L4 disc space level with an AP canal diameter of 9 mm, small posterior bulging annulus and prominent right dorsolateral extradural defect due to right posterior ligamentum flavum hypertrophy and right medial synovial hypertrophy containing tiny cyst. 3. No MRI evidence of lumbar extruded disc fragment. Electronically Signed: Edgardo Garcia MD at 12:25 EST ,
[2022-09-25] MEDS: Acetaminophen 325 MG Tablet 650 MG PO ×2 (11:19→20:14)
[2022-09-25 12:25] LABS: Bedside Glucose 123 mg/dL (74-106)
[2022-09-25 14:22] LABS: Neutrophil-Band 5.2 % (0-5)
--- NOTE | 2022-09-25 14:31 | PN_ITS ---
Subjective Subjective Patient seen and examined. She was admitted with a complaint of shortness of braeth which started a few hours prior to admission and was found to have lower extremity edema. She had no known history of hypoxia. Patient had no complaints today. Her shortness of breath had improved. She denied any chest pain, palpita tions, dizziness, nausea vomiting or any other symptoms. Review of systems otherwise negative. She was on 2L of oxygen. She does admit to having a history of sleep apnea, and admits to not using her CPAP machine because it makes her feel claustrophobic. Objective Data Objective Data Vital Signs: Vital Signs Temp Pulse Resp BP Pulse Ox O2 Del Method O2 Flow Rate 98.0 F 77 18 124/65 H 94 Room Air 2 09/25/22 11:13 09/25/22 13:37 09/25/22 13:37 09/25/22 11:13 09/25/22 11:21 09/25/22 11:21 09/25/22 11:21 Oxygen Flow Rate (L/min) 2 Oxygen Delivery Method Room Air Weight: 259 lb 14.8 oz Body Mass Index (BMI) 43.2 Intake & Output: Intake and Output for Last 24 Hours 09/23/22 09/24/22 09/25/22 23:59 23:59 23:59 Intake Total 305 / 425 790 / 790 Output Total 850 / 850 Balance 305 / 425 -60 / -60 Lab / Micro Data Result Diagrams: 09/25/22 04:52 09/25/22 04:52 Labs: Laboratory Results - last 24 hr 09/24/22 19:05: WBC 5.5, RBC 3.86 L, Hgb 10.1 L, Hct 32.5 L, MCV 84.2, MCH 26.2 L, MCHC 31.1 L, RDW Std Deviation 47.8 H, RDW Coeff of Vlad 15.8 H, Plt Count 254, MPV 10.2, Immature Gran % (Auto) 1.100 H, Neut % (Auto) 66.8, Lymph % (Auto) 17.5 L, Imperial % (Auto) 11.0 H, Eos % (Auto) 3.4, Baso % (Auto) 0.2, Absolute Neuts (auto) 3.7, Absolute Lymphs (auto) 0.97, Nucleated RBC % 0 09/24/22 19:05: Sodium 140, Potassium 4.9, Chloride 107, Carbon Dioxide 27.0, Anion Gap 6, BUN 29 H, Creatinine 1.19 H, Estim Creat Clear Calc 41.24, Est GFR (MDRD) Af Amer 59 L, Est GFR (MDRD) Non-Af 48 L, BUN/Creatinine Ratio 24.4 H, Glucose 302 H, Calcium 8.7, Total Bilirubin 0.20, AST 15, ALT 20, Alkaline Phosphatase 92, Troponin I High Sens 24, Total Protein 6.9, Albumin 3.1 L, Globulin 3.8, Albumin/Globulin Ratio 0.8 L 09/24/22 19:05: B-Natriuretic Peptide 79.5 09/24/22 21:20: Troponin I High Sens 30 09/24/22 21:20: Phosphorus 2.5, Magnesium 1.4 L, Total Creatine Kinase 59, C- React Prot Ext Range < 2.90 09/24/22 21:36: Procalcitonin 0.06 09/24/22 23:50: COVID-19 (MAKENZIE) Not Detected 09/25/22 01:53: POC Glucose 224 H 09/25/22 04:52: WBC 5.2, RBC 3.29 L, Hgb 8.6 L, Hct 28.1 L, MCV 85.4, MCH 26.1 L , MCHC 30.6 L, RDW Std Deviation 48.7 H, RDW Coeff of Vlad 15.8 H, Plt Count 236, MPV 11.0, Immature Gran % (Auto) 0.800, Neut % (Auto) 62.6, Lymph % (Auto) 21.0, Imperial % (Auto) 11.7 H, Eos % (Auto) 3.5, Baso % (Auto) 0.4, Absolute Neuts (auto) 3.3, Absolute Lymphs (auto) 1.09, Band Neutrophils % 5.2 H, Nucleated RBC % 0, E SR 19 09/25/22 04:52: Sodium 140, Potassium 4.6, Chloride 107, Carbon Dioxide 26.0, Anion Gap 7, BUN 28 H, Creatinine 1.04 H, Estim Creat Clear Calc 49.17, Est GFR (MDRD) Af Amer 69, Est GFR (MDRD) Non-Af 57 L, BUN/Creatinine Ratio 26.9 H, Glucose 183 H, Calcium 8.6, Magnesium 2.5, Iron 51, TIBC 265, Iron Saturation 19.2, Ferritin 75, Total Bilirubin 0.20, AST 14 L, ALT 19, Alkaline Phosphatase 65, Total Protein 6.1 L, Albumin 2.7 L, Globulin 3.4, Albumin/Globulin Ratio 0.8 L, Triglycerides 92, Cholesterol 138, LDL Cholesterol 69, VLDL Cholesterol 18, HDL Cholesterol 51, Folate 5.00, TSH 66.70 H 09/25/22 04:52: Hemoglobin A1c 6.9 H 09/25/22 04:52: Vitamin B12 327 09/25/22 06:15: POC Glucose 151 H 09/25/22 11:10: POC Glucose 123 H Micro: Microbiology 09/24/22 20:15 Mucosa - Nasopharyngeal Respiratory Panel (PCR) - Final 09/24/22 19:25 Nasal Secretion SARS-CoV-2 & FLU Antigen (Rapid) - Final Radiography Diagnostic Testing: Radiology Impression Chest X-Ray 09/24/22 19:40 IMPRESSION: Patchy bilateral infiltrates of unknown chronicity. In the appropriate clinical setting findings may represent pneumonia. Recommend short-term follow-up to resolution. Electronically Signed: Hubert Baker MD at 19:54 EST , Chest CTA 09/24/22 19:48 IMPRESSION: Normal CTA chest examination, without a demonstrated pulmonary embolism or arterial dissection. Scattered bilateral groundglass opacities with septal thickening, findings of uncertain chronicity. In the appropriate clinical setting findings may represent pneumonia including atypical or viral pneumonia. Electronically Signed: Hubert Baker MD at 20:42 EST , Brain MRI 09/25/22 09:00 IMPRESSION: 1. No MRI evidence of acute or subacute ischemic infarct or acute intracranial abnormality. 2. Chronic white matter ischemic changes in both cerebral hemispheres and across the central pontine tegmentum. 3. Moderately pronounced right sphenoid sinusitis. Electronically Signed: Edgardo Garcia MD at 12:09 EST Reading Location ID and State: [facility] / [place] , Service support , Lumbar Spine MRI 09/25/22 09:00 IMPRESSION: 1. Small right posterior L3 supra pedicular level foraminal zone disc protrusion coming from the L2-L3 disc space causing mild stenosis of the right intervertebral neural foramen but no displacement of the right L2 nerve. 2. Mild central canal stenosis at L3-L4 disc space level with an AP canal diameter of 9 mm, small posterior bulging annulus and prominent right dorsolateral extradural defect due to right posterior ligamentum flavum hypertrophy and right medial synovial hypertrophy containing tiny cyst. 3. No MRI evidence of lumbar extruded disc fragment. Electronically Signed: Edgardo Garcia MD at 12:25 EST Reading Location ID and State: [facility] / [place] , Service support , Thoracic Spine MRI 09/25/22 09:00 IMPRESSION: Small T7-T8 posterior bulging annulus high was negative MRI of the thoracic spine without contrast. Electronically Signed: Edgardo Garcia MD at 12:11 EST , Physical Exam Const alert, oriented x3 and no apparent distress HEENT normocephalic, head/scalp atraumatic, EAC's normal and moist oral mucous membranes Eyes PERRL and EOMs intact bilaterally Neck no lymphadenopathy and supple Lymph Lymphatic: no lymphadenopathy noted Resp Resp Narrative: Mild diminished breath sounds bibasally. No wheezes or crackles. On 2 L of oxygen. Cardio regular rate, regular rhythm, S1 normal heart sound, S2 normal heart sound and no murmurs GI normal to inspection, nondistended, normoactive bowel sounds, soft to palpation and non-tender Extremity normal capillary refill and no clubbing, cyanosis or edema Skin General Skin Exam: no breakdown Neuro CN's II-XII intact bilaterally, no focal motor deficits and no sensory deficits noted Motor Exam: strength 5/5 throughout Psych Appearance: appropriate Assessment & Plan Assessment/Plan (1) Hypoxia: PLAN: Plan #Hypoxia * being managed for pneumonia as CTA chest was negative for PE, but did show scattered bilateral groundglass opacities with septal thickening * Patient however tells me that she does have a history of sleep apnea but has not been using his CPAP machine on account of her feeling claustrophobic with it. And therefore wondering if this hypoxia could be related to his sleep apnea. She was quite somnolent but arousable during review * COVID test was negative and respiratory panel was negative. 2D echo pending. * On IV ceftriaxone and azithromycin to cover presumptive pneumonia. * TSH is also markedly elevated at 66.7 so hypothyroidism may be playing a role in his somnolence and hypoxia. * Titrate oxygen currently and saturation above 90%. Breathing treatments with bronchodilators. * #Hypothyroidism: * On Synthroid 125 mcg daily. TSH is 66.7 so there is definitely poorly controlled hypothyroidism. * Will check free T4 and increase Synthroid dose to 150 mcg daily. * Patient counseled on compliance . #Acute on chronic anemia * Hb is 8.6. Was 10.1 on admission. * Reason for this precipitous drop is unclear. * We will check stool for occult blood. No previous baseline in EMR. * #Type 2 diabetes mellitus, Lantus 45 units nightly. Insulin sliding scale. Accu-Cheks ACHS. #Hyperlipidemia: On fenofibrate and statin #Depression: On escitalopram Restless leg syndrome: On ropinirole DVT prophylaxis: Lovenox Charges/Coding Visit Charges Inpatient E&M: 94280 Subs Hosp L2
[2022-09-25 15:19] LABS: T4 Free Direct 0.72 ng/dL (0.76-1.46)
[2022-09-25 17:15] LABS: Allen Test Positive; Base Excess 2 mmol/L (-2 to +2); Bicarbonate 26.2 mmol/L (22-26); Blood Gas Specimen Type ART; O2 Delivery Device Room Air; PO2 78 mmHG (75-100); SITE R Radial; SO2 96 % (95-99); Total Carbon Dioxide 27 mmol/L; pCO2 38.9 mmHg (35-45); pH 7.44 (7.35-7.45)
[2022-09-25 17:25] LABS: Bedside Glucose 171 mg/dL (74-106)
[2022-09-25] MEDS: Metoclopramide 5 MG TABLET PO (17:55)
[2022-09-25] MEDS: Pramipexole Di-HCl 0.5 MG Tablet 1.5 MG PO (20:14)
[2022-09-25] MEDS: Gabapentin 100 MG Capsule 200 MG PO (20:14)
[2022-09-25] MEDS: hydrALAZINE 20 MG/ML Vial 10 MG IV (20:15)
[2022-09-25] MEDS: 0.9% Saline Lock 10 ML Syringe IV ×2 (20:17→21:57)
--- NOTE | 2022-09-25 21:26 | PCM.HOSP.N ---
Hospitalist Note Patient with increased oxygen usage, now on 3 L with crackles at bases, evaluated also by RT, will dose with Lasix 40 mg IV x1 and continue to monitor.
[2022-09-25] MEDS: Furosemide 40 MG/4 ML Vial IV (21:57)
[2022-09-25] MEDS: Atorvastatin Calcium 10 MG Tablet PO (22:12)
[2022-09-25] MEDS: Insulin Lispro 100 UNIT/ML INSULN.PEN SC (22:12)
[2022-09-25] MEDS: Insulin Glargine-YFGN 100 UNIT/ML Pen 45 UNIT SC (22:13)
[2022-09-25] MEDS: Ceftriaxone 1 GM/50 ML BAG IV (22:18)
[2022-09-25] MEDS: Nystatin Powder 15gm Bottle 1 APPLIC TOPICAL (22:18)
[2022-09-25] MEDS: MELATONIN 3 MG TABLET PO (22:21)
[2022-09-25 22:40] LABS: Bedside Glucose 210 mg/dL (74-106)
[2022-09-25] MEDS: oxyCODONE 5 MG Tablet PO (23:01)
[2022-09-26] VITALS (9 sets, daily range): BP systolic 135–153; BP diastolic 69–81; PULSE 71–82; RESP 16–20; TEMP 36.4–36.9; O2SAT 93–99; BMI 42.7
[2022-09-26 05:26] LABS: Absolute Lymphocyte Count 0.92 X10^3/uL (0.83-4.51); Absolute Neutrophil Count 3.6 X10^3/uL (2.0-7.7); Basophil# 0.02 X10^3/uL; Basophil% 0.4 % (0-1); Eosinophil# 0.19 X10^3/uL; Eosinophils% 3.5 % (0-5); Hematocrit 27.4 % (37-47); Hemoglobin 8.6 g/dL (12.0-15.0); Lymphocyte # 0.92 X10^3/ul (0.83-4.51); Lymphocyte % 16.8 % (19-41); Mean Corp Hgb Conc 31.4 g/dL (32-36); Mean Corpuscular Hgb 26.5 pg (27.0-32.0); Mean Corpuscular Volume 84.3 fL (81-99); Mean Platelet Vol. 10.9 fl (6.2-12.0); Monocyte# 0.75 X10^3/uL; Monocyte% 13.7 % (0-10); NRBC Flagged by Analyzer 0 % (0-5); Neutrophil # 3.57 X10^3/uL (2.7-7.7); Neutrophil % 64.9 % (47-70); Platelet Count 224 K/mm3 (150-450); RBC Distribution Width CV 16.1 % (11.6-14.6); RBC Distribution Width SD 49.5 fl (35.1-43.9); Red Blood Count 3.25 M/mm3 (4.2-5.4); White Blood Count 5.5 K/mm3 (4.4-11.0)
[2022-09-26 06:06] LABS: Anion Gap 8 (5-15); BUN 37 mg/dL (7-18); BUN/Creat Ratio 29.6 RATIO (10-20); Calcium,Total 8.7 mg/dL (8.5-10.1); Chloride 103 mmol/L (98-107); Creatinine, Serum 1.25 mg/dL (0.55-1.02); EST Glomerular Filtration Rate 46 mL/min (>60); Est Glom Filt Rate - Afr Amer 55 mL/min (>60); Estimated Creatinine Clearance 40.91 ml/min; Glucose 147 mg/dL (74-106); Potassium 4.8 mmol/L (3.5-5.1); Sodium Level 138 mmol/L (136-145)
[2022-09-26] MEDS: Metoclopramide 5 MG TABLET PO ×2 (06:16→16:38)
[2022-09-26] MEDS: Levothyroxine 150 MCG Tablet PO (06:16)
[2022-09-26] MEDS: Gabapentin 100 MG Capsule 200 MG PO ×3 (06:16→22:26)
[2022-09-26] MEDS: Nystatin Powder 15gm Bottle 1 APPLIC TOPICAL ×3 (06:17→22:21)
[2022-09-26 06:51] LABS: Bedside Glucose 118 mg/dL (74-106)
[2022-09-26] MEDS: Ipratropium/Albuterol Sulfate 3 ML AMPUL.NEB INHALATION ×3 (07:36→19:00)
[2022-09-26] MEDS: Potassium Chloride Oral Tablet 10 MEQ PO (09:12)
[2022-09-26] MEDS: Escitalopram Oxalate 10 MG Tablet PO (09:12)
[2022-09-26] MEDS: Fenofibrate 48 MG Tablet PO (09:12)
[2022-09-26] MEDS: Pantoprazole Sodium 40 MG Tablet PO (09:13)
[2022-09-26] MEDS: Enoxaparin 40 MG/0.4 ML Syringe SC ×2 (09:13→22:21)
[2022-09-26] MEDS: Glucerna Shake 120 ML LIQUID PO ×3 (09:16→16:38)
--- NOTE | 2022-09-26 10:29 | PCM.PROGNOTE ---
Subjective Subjective Patient seen and examined. She had no active complaints today. She did have some increased work of breathing last night and still required oxygen be increased to 3 L of oxygen. She tells me she has been compliant with her Synthroid and her assisted living facility. She denies any shortness of breath this morning. She denies any chest pain, palpitations, dizziness, nausea vomiting or diarrhea. Review of systems otherwise negative. Objective Data Objective Data Vital Signs: Vital Signs Temp Pulse Resp BP Pulse Ox O2 Del Method O2 Flow Rate 97.6 F L 78 18 141/69 H 99 Room Air 2 09/26/22 09:09 09/26/22 09:09 09/26/22 09:09 09/26/22 09:09 09/26/22 09:09 09/26/22 09:19 09/26/22 09:09 Oxygen Flow Rate (L/min) 2 Oxygen Delivery Method Room Air Weight: 256 lb 9.889 oz Body Mass Index (BMI) 42.7 Intake & Output: Intake and Output for Last 24 Hours 09/24/22 09/25/22 09/26/22 23:59 23:59 23:59 Intake Total 305 / 425 1320 / 1720 855 / 855 Output Total 850 / 1750 1700 / 1700 Balance 305 / 425 470 / -30 -845 / -845 Lab / Micro Data Result Diagrams: 09/26/22 04:34 09/26/22 04:34 Labs: Laboratory Results - last 24 hr 09/24/22 21:20: Phosphorus 2.5, Magnesium 1.4 L, Total Creatine Kinase 59, C-React Prot Ext Range < 2.90 09/25/22 04:52: WBC 5.2, RBC 3.29 L, Hgb 8.6 L, Hct 28.1 L, MCV 85.4, MCH 26.1 L, MCHC 30.6 L, RDW Std Deviation 48.7 H, RDW Coeff of Vlad 15.8 H, Plt Count 236, MPV 11.0, Immature Gran % (Auto) 0.800, Neut % (Auto) 62.6, Lymph % (Auto) 21.0, [place] % (Auto) 11.7 H, Eos % (Auto) 3.5, Baso % (Auto) 0.4, Absolute Neuts (auto) 3.3, Absolute Lymphs (auto) 1.09, Band Neutrophils % 5.2 H, Nucleated RBC % 0, ESR 19 09/25/22 04:52: Free T4 0.72 L 09/25/22 11:10: POC Glucose 123 H 09/25/22 17:04: POC Glucose 171 H 09/25/22 22:03: POC Glucose 210 H 09/26/22 04:34: WBC 5.5, RBC 3.25 L, Hgb 8.6 L, Hct 27.4 L, MCV 84.3, MCH 26.5 L, MCHC 31.4 L, RDW Std Deviation 49.5 H, RDW Coeff of Vlad 16.1 H, Plt Count 224, MPV 10.9, Immature Gran % (Auto) 0.700, Neut % (Auto) 64.9, Lymph % (Auto) 16.8 L, [place] % (Auto) 13.7 H, Eos % (Auto) 3.5, Baso % (Auto) 0.4, Absolute Neuts (auto) 3.6, Absolute Lymphs (auto) 0.92, Nucleated RBC % 0 09/26/22 04:34: Sodium 138, Potassium 4.8, Chloride 103, Carbon Dioxide 27.0, Anion Gap 8, BUN 37 H, Creatinine 1.25 H, Estim Creat Clear Calc 40.91, Est GFR (MDRD) Af Amer 55 L, Est GFR (MDRD) Non-Af 46 L, BUN/Creatinine Ratio 29.6 H, Glucose 147 H, Calcium 8.7 09/26/22 06:19: POC Glucose 118 H Micro: Microbiology 09/25/22 21:21 Urine, Clean Catch Streptococcus pneumoniae Antigen (M - Final 09/25/22 21:21 Urine, Clean Catch Legionella Antigen - Final 09/24/22 20:15 Mucosa - Nasopharyngeal Respiratory Panel (PCR) - Final 09/24/22 19:25 Nasal Secretion SARS-CoV-2 & FLU Antigen (Rapid) - Final ABG Data ABG results: ABG 09/25/22 17:10 Specimen Type ART Sample Site R Radial pH 7.44 Bicarbonate Actual 26.2 H Total CO2 27 Base Excess 2 O2 Saturation 96 ABG pCO2 38.9 ABG pO2 78 Madi Test Positive O2 Delivery Device Room Air Radiography Diagnostic Testing: Radiology Impression Ankle Brachial Index 09/24/22 22:52 Interpretation Summary Technically limited examination due to noncompliant stability of bilateral PT and DP vessels. The right posterior tibial and dorsalis pedis demonstrate normal triphasic waveforms with noncompressibility suggesting medial calcification of vessel gilbert Normal right digital brachial index of 0.79 The left posterior tibial and dorsalis pedis demonstrate normal triphasic Doppler waveforms with noncompressibility suggesting medial calcification of vessel gilbert. Normal left digital brachial index of 0.78 Ordering Physician: Preeti Culver Referring Physician: Claus Swann Performed By: Carlos Brand, RVT Echocardiogram 09/24/22 22:52 Interpretation Summary The study was technically difficult. Based upon the 2D echocardiographic images obtained there appears to be normal left ventricular size, wall motion, and systolic function The estimated ejection fraction is 65 %. Moderate concentric left ventricular hypertrophy. There is mild mitral annular calcification. Extension of the mitral annular calcification onto the base of the posterior mitral valve leaflet. Mild (1+) mitral valve insufficiency. Trivial tricuspid valve insufficiency. Mild focal aortic valve thickening. Trivial pulmonic valve insufficiency. Unable to estimate RV systolic pressure/pulmonary artery pressure due to technically difficult study. Diastolic function is indeterminate. Ordering Physician: Preeti Culver Referring Physician: Claus Swann Performed By: Anamika Johnson, SHASHA, RVT Brain MRI 09/25/22 09:00 IMPRESSION: 1. No MRI evidence of acute or subacute ischemic infarct or acute intracranial abnormality. 2. Chronic white matter ischemic changes in both cerebral hemispheres and across the central pontine tegmentum. 3. Moderately pronounced right sphenoid sinusitis. Electronically Signed: Edgardo Garcia MD at 12:09 EST Reading Location ID and State: [facility] / [place] , Service support , Lumbar Spine MRI 09/25/22 09:00 IMPRESSION: 1. Small right posterior L3 supra pedicular level foraminal zone disc protrusion coming from the L2-L3 disc space causing mild stenosis of the right intervertebral neural foramen but no displacement of the right L2 nerve. 2. Mild central canal stenosis at L3-L4 disc space level with an AP canal diameter of 9 mm, small posterior bulging annulus and prominent right dorsolateral extradural defect due to right posterior ligamentum flavum hypertrophy and right medial synovial hypertrophy containing tiny cyst. 3. No MRI evidence of lumbar extruded disc fragment. Electronically Signed: Edgardo Garcia MD at 12:25 EST Reading Location ID and State: [facility] / [place] , Service support , Thoracic Spine MRI 09/25/22 09:00 IMPRESSION: Small T7-T8 posterior bulging annulus high was negative MRI of the thoracic spine without contrast. Electronically Signed: Edgardo Garcia MD at 12:11 EST Reading Location ID and State: [facility] / [place] , Service support , Physical Exam Const alert, oriented x3 and no apparent distress General Appearance: cooperative HEENT normocephalic, head/scalp atraumatic, EAC's normal and moist oral mucous membranes Eyes PERRL and EOMs intact bilaterally Neck no lymphadenopathy and supple Lymph Lymphatic: no lymphadenopathy noted Resp Resp Narrative: Mild diminished breath sounds bibasally. No wheezes or crackles. On room air Cardio regular rate, regular rhythm, S1 normal heart sound, S2 normal heart sound and no murmurs GI normal to inspection, nondistended, normoactive bowel sounds, soft to palpation and non-tender Extremity normal capillary refill and no clubbing, cyanosis or edema Skin General Skin Exam: no breakdown Neuro CN's II-XII intact bilaterally, no focal motor deficits and no sensory deficits noted Motor Exam: strength 5/5 throughout Psych thought process normal Appearance: appropriate Assessment & Plan Assessment/Plan (1) Hypoxia: PLAN: Plan #Hypoxia being managed for pneumonia as CTA chest was negative for PE, but did show scattered bilateral groundglass opacities with septal thickening does have a history of sleep apnea but has not been compliant with her CPAP machine She did get a bit hypoxic overnight and required increasing oxygen to 3 L. 2D echo showed moderate concentric left ventricular hypertrophy with EF of 65% and normal left ventricular size, wall motion and systolic function with indeterminate diastolic function. COVID test was negative and respiratory panel was negative. 2D echo pending. On IV ceftriaxone and azithromycin to cover presumptive pneumonia. TSH is also markedly elevated at 66.7 so hypothyroidism may be playing a role in her somnolence and hypoxia. Titrate oxygen currently and saturation above 90%. Breathing treatments with bronchodilators. will need follow up with pulmonology on outpatient basis for sleep study to set up her CPAP #Hypothyroidism: On Synthroid 125 mcg daily. TSH is 66.7 so there is definitely poorly controlled hypothyroidism. claims compliance with her medication. 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 . #Acute on chronic anemia Hb remains 8.6 today. Was 10.1 on admission stool for occult blood pending check iron panel #Type 2 diabetes mellitus, Lantus 45 units nightly. Insulin sliding scale. Accu-Cheks ACHS. #Hyperlipidemia: On fenofibrate and statin #Depression: On escitalopram Restless leg syndrome: On ropinirole DVT prophylaxis: Lovenox Disposition: Came from assisted living but needs to go to the skilled nursing side so will need placement. Awaiting precert Charges/Coding Visit Charges Inpatient E&M: 76132 Subs Hosp L2
--- NOTE | 2022-09-26 10:38 | CASEMGMT ---
Patient is from [facility]. SW reviewed patient's PT/OT evaluations yesterday and they are recommending longer term placement. SW met with patient. Introduced self and role at [facility]. SW explained to patient based on how she did yesterday therapy is recommending she go somewhere for rehab. Patient was not happy about this. Patient said she has only been at [facility] for a month and prior to that she was in rehab at [facility]. SW told patient we can see how she does with therapy today. WES will also send information to [facility] to make sure they are okay with her returning. SW did provide patient with a list of retirement facility providers including quality and resource use data and consistent with patient?s preferred geographic region, medical needs, and insurance network were provided from the [employer]. WES did ask patient if she would want to go to [facility] if she has to go for rehab or would she want to go somewhere else. Patient said she would go to [facility], but she prefers to return to [facility]. Plan: pending therapy notes today Varsha Villatoro ROD AND TUBE STRAIGHTENERChristy BELTRAN
--- NOTE | 2022-09-26 10:40 | CASEMGMT ---
WES faxed clinicals including PT/OT evaluations and treatments to [facility]. Varsha Villatoro MOTOR VEHICLES INSPECTOR RUBY
[2022-09-26 12:25] LABS: Bedside Glucose 143 mg/dL (74-106)
--- NOTE | 2022-09-26 13:40 | CASEMGMT ---
WES called [facility] and asked if they could review patient's PT/OT and let WES know if they are okay with patient returning. Varsha Villatoro EGG BUYER RUBY
--- NOTE | 2022-09-26 14:19 | CASEMGMT ---
SW received a call from Sarah at [facility] and she would prefer patient go somewhere for rehab before returning as they only have 1 aide for all of their patients. WES spoke with patient and let her know what Sarah said and patient ssaid she would go to [facility]. SW let patient know she will stay at [facility] until her insurance approves her. WES sent referral to [facility] via [facility]. Varsha BELTRAN
[2022-09-26 15:08] LABS: Albumin 3.1 g/dL (2.9-4.4); Alpha-1-Globulins 0.3 g/dL (0.0-0.4); Alpha-2-Globulins 0.8 g/dL (0.4-1.0); Gamma Globulin 0.6 g/dL (0.4-1.8); Immunoglobulin A 341 mg/dL (87-352); Immunoglobulin G 731 mg/dL (586-1602); PROEL- TOTAL PROTEIN 5.9 g/dL (6.0-8.5)
[2022-09-26] MEDS: Insulin Lispro 100 UNIT/ML INSULN.PEN SC ×2 (16:41→22:19)
[2022-09-26 17:25] LABS: Bedside Glucose 154 mg/dL (74-106)
[2022-09-26 19:36] LABS: ANTINUCLEAR ANTIBODIES DIRECT Negative (Negative)
[2022-09-26 19:45] LABS: Immunoglobulin M 20 mg/dL (26-217)
[2022-09-26] MEDS: Pramipexole Di-HCl 0.5 MG Tablet 1.5 MG PO (22:19)
[2022-09-26] MEDS: Ceftriaxone 1 GM/50 ML BAG IV (22:19)
[2022-09-26] MEDS: Insulin Glargine-YFGN 100 UNIT/ML Pen 45 UNIT SC (22:20)
[2022-09-26] MEDS: Atorvastatin Calcium 10 MG Tablet PO (22:21)
[2022-09-26] MEDS: MELATONIN 3 MG TABLET PO (22:25)
[2022-09-26] MEDS: oxyCODONE 5 MG Tablet PO (22:25)
[2022-09-26 22:55] LABS: Bedside Glucose 165 mg/dL (74-106)
[2022-09-27] VITALS (8 sets, daily range): BP systolic 117–147; BP diastolic 63–91; PULSE 65–76; RESP 16–20; TEMP 36.5–36.6; O2SAT 93–96; BMI 42.5
[2022-09-27] MEDS: Gabapentin 100 MG Capsule 200 MG PO ×2 (05:43→14:14)
[2022-09-27] MEDS: Metoclopramide 5 MG TABLET PO ×2 (05:43→16:33)
[2022-09-27] MEDS: Levothyroxine 150 MCG Tablet PO (05:44)
[2022-09-27] MEDS: Nystatin Powder 15gm Bottle 1 APPLIC TOPICAL ×2 (05:44→14:14)
[2022-09-27 05:54] LABS: Absolute Neutrophil Count 3.1 X10^3/uL (2.0-7.7); Basophil# 0.01 X10^3/uL; Basophil% 0.2 % (0-1); Eosinophil# 0.22 X10^3/uL; Eosinophils% 4.5 % (0-5); Hematocrit 28.1 % (37-47); Hemoglobin 8.7 g/dL (12.0-15.0); Lymphocyte % 18.3 % (19-41); Mean Corpuscular Hgb 26.1 pg (27.0-32.0); Mean Corpuscular Volume 84.4 fL (81-99); Monocyte# 0.66 X10^3/uL; Monocyte% 13.4 % (0-10); NRBC Flagged by Analyzer 0 % (0-5); Neutrophil # 3.07 X10^3/uL (2.7-7.7); Neutrophil % 62.6 % (47-70); Platelet Count 217 K/mm3 (150-450); RBC Distribution Width SD 49.2 fl (35.1-43.9); Red Blood Count 3.33 M/mm3 (4.2-5.4); White Blood Count 4.9 K/mm3 (4.4-11.0)
[2022-09-27 06:32] LABS: BUN 40 mg/dL (7-18); Creatinine, Serum 1.19 mg/dL (0.55-1.02); EST Glomerular Filtration Rate 48 mL/min (>60); Estimated Creatinine Clearance 42.98 ml/min; Glucose 139 mg/dL (74-106)
[2022-09-27 06:33] LABS: Anion Gap 7 (5-15); BUN/Creat Ratio 33.6 RATIO (10-20); Calcium,Total 8.8 mg/dL (8.5-10.1); Chloride 104 mmol/L (98-107); Est Glom Filt Rate - Afr Amer 59 mL/min (>60); Potassium 5.1 mmol/L (3.5-5.1); Sodium Level 139 mmol/L (136-145)
[2022-09-27 07:00] LABS: Bedside Glucose 103 mg/dL (74-106)
[2022-09-27] MEDS: Ipratropium/Albuterol Sulfate 3 ML AMPUL.NEB INHALATION ×3 (07:15→20:15)
[2022-09-27] MEDS: Escitalopram Oxalate 10 MG Tablet PO (08:46)
[2022-09-27] MEDS: Potassium Chloride Oral Tablet 10 MEQ PO (08:46)
[2022-09-27] MEDS: Fenofibrate 48 MG Tablet PO (08:47)
[2022-09-27] MEDS: Enoxaparin 40 MG/0.4 ML Syringe SC (08:47)
[2022-09-27] MEDS: Pantoprazole Sodium 40 MG Tablet PO (08:47)
[2022-09-27] MEDS: Acetaminophen 325 MG Tablet 650 MG PO (08:50)
--- NOTE | 2022-09-27 11:29 | PN_ITS ---
Subjective Subjective Patient seen and examined. Comfortably. She had no active complaints. She was initially on 2 L of oxygen but was weaned down to room air. Review of systems is otherwise negative. She has remained hemodynamically stable. She is awaiting placement. Objective Data Objective Data Vital Signs: Vital Signs Temp Pulse Resp BP Pulse Ox O2 Del Method O2 Flow Rate 97.7 F L 75 18 117/91 H 94 Room Air 2 09/27/22 08:43 09/27/22 08:43 09/27/22 08:43 09/27/22 08:43 09/27/22 08:43 09/27/22 08:43 09/27/22 07:15 Oxygen Flow Rate (L/min) 2 Oxygen Delivery Method Room Air Weight: 255 lb 12.8 oz Body Mass Index (BMI) 42.5 Intake & Output: Intake and Output for Last 24 Hours 09/25/22 09/26/22 09/27/22 23:59 23:59 23:59 Intake Total 1320 / 1720 905 / 1155 605 / 605 Output Total 850 / 1750 1700 / 2000 325 / 325 Balance 470 / -30 -795 / -845 280 / 280 Lab / Micro Data Result Diagrams: 09/27/22 04:40 09/27/22 04:40 Labs: Laboratory Results - last 24 hr 09/25/22 04:52: Total Protein (PEP) 5.9 L, Globulin 2.8, IgG 731, IgA 341, IgM 20 L, Immunofixation Screen Comment, Albumin (GUIDO) 3.1, Albumin/Globulin (GUIDO) 1.2, Whsmo-6-Zfbijsybu GUIDO 0.3, Enxxz-3-Idselmnqz GUIDO 0.8, Beta-Globulins (GUIDO) 1.1, Gamma Globulins (GUIDO) 0.6, GUIDO M-Kristofer , GUIDO Comments Comment 09/25/22 04:52: LAINE Screen Negative, CIRILO-1 Antibody Not Reportable, SS-A/Ro IgG Antibody Not Reportable, SS-B/La IgG Antibody Not Reportable, Sm (Yancey) Antibody Not Reportable, PERSONAL COUNSELOR Antibody Not Reportable, Scl-70 Scleroderma Ab Not Reportable, Double Strand DNA Ab Not Reportable, Centromere B Antibody Not Reportable 09/26/22 12:04: POC Glucose 143 H 09/26/22 16:41: POC Glucose 154 H 09/26/22 22:17: POC Glucose 165 H 09/27/22 04:40: WBC 4.9, RBC 3.33 L, Hgb 8.7 L, Hct 28.1 L, MCV 84.4, MCH 26.1 L , MCHC 31.0 L, RDW Std Deviation 49.2 H, RDW Coeff of Vlad 16.0 H, Plt Count 217, MPV 11.0, Immature Gran % (Auto) 1.000 H, Neut % (Auto) 62.6, Lymph % (Auto) 18.3 L, Island % (Auto) 13.4 H, Eos % (Auto) 4.5, Baso % (Auto) 0.2, Absolute Neuts (auto) 3.1, Absolute Lymphs (auto) 0.90, Nucleated RBC % 0 09/27/22 04:40: Sodium 139, Potassium 5.1, Chloride 104, Carbon Dioxide 28.0, Anion Gap 7, BUN 40 H, Creatinine 1.19 H, Estim Creat Clear Calc 42.98, Est GFR (MDRD) Af Amer 59 L, Est GFR (MDRD) Non-Af 48 L, BUN/Creatinine Ratio 33.6 H, Glucose 139 H, Calcium 8.8 09/27/22 06:42: POC Glucose 103 Micro: Microbiology 09/25/22 21:21 Urine, Clean Catch Streptococcus pneumoniae Antigen (M - Final 09/25/22 21:21 Urine, Clean Catch Legionella Antigen - Final 09/24/22 20:15 Mucosa - Nasopharyngeal Respiratory Panel (PCR) - Final 09/24/22 19:25 Nasal Secretion SARS-CoV-2 & FLU Antigen (Rapid) - Final Physical Exam Const alert, oriented x3 and no apparent distress General Appearance: cooperative HEENT normocephalic, head/scalp atraumatic, EAC's normal and moist oral mucous membranes Eyes PERRL and EOMs intact bilaterally Neck no lymphadenopathy and supple Lymph Lymphatic: no lymphadenopathy noted and no lymphedema noted Resp Resp Narrative: Mild diminished breath sounds bibasally. No wheezes or crackles. On room air Cardio regular rate, regular rhythm, S1 normal heart sound, S2 normal heart sound and no murmurs GI normal to inspection, nondistended, normoactive bowel sounds, soft to palpation and non-tender Extremity normal capillary refill and no clubbing, cyanosis or edema Skin General Skin Exam: no breakdown Neuro CN's II-XII intact bilaterally, no focal motor deficits and no sensory deficits noted Motor Exam: strength 5/5 throughout Psych thought process normal Appearance: appropriate Assessment & Plan Assessment/Plan (1) Hypoxia: PLAN: Plan #Hypoxia * being managed for pneumonia as CTA chest was negative for PE, but did show scattered bilateral groundglass opacities with septal thickening * does have a history of sleep apnea but has not been compliant with her CPAP machine * She did get a bit hypoxic overnight and required increasing oxygen to 3 L. * 2D echo showed moderate concentric left ventricular hypertrophy with EF of 65% and normal left ventricular size, wall motion and systolic function with indeterminate diastolic function. * COVID test was negative and respiratory panel was negative. 2D echo pending. * On IV ceftriaxone and azithromycin to cover presumptive pneumonia. * TSH is also markedly elevated at 66.7 so hypothyroidism may be playing a role in her somnolence and hypoxia. * Titrate oxygen currently and saturation above 90%. Breathing treatments with bronchodilators. * will need follow up with pulmonology on outpatient basis for sleep study to set up her CPAP * #Hypothyroidism: * On Synthroid 125 mcg daily. TSH is 66.7 so there is definitely poorly controlled hypothyroidism. * claims compliance with her medication. Will increase synthroid to 150mcg daily and to follow up with barrel painter on outpatient basis for monitoring of thyroid function. . #Acute on chronic anemia * Hb is 8.7 today. Was 10.1 on admission * stool for occult blood pending * check iron panel * * #Type 2 diabetes mellitus, Lantus 45 units nightly. Insulin sliding scale. Accu-Cheks ACHS. #Hyperlipidemia: On fenofibrate and statin #Depression: On escitalopram Restless leg syndrome: On ropinirole DVT prophylaxis: Lovenox Disposition: Came from assisted living but needs to go to the [facility] side so will need placement. Awaiting precert Charges/Coding Visit Charges Inpatient E&M: 80565 Subs Hosp L2
[2022-09-27 11:50] LABS: Bedside Glucose 78 mg/dL (74-106)
--- NOTE | 2022-09-27 14:42 | CASEMGMT ---
Patient was approved by insurance to go to [facility]. SW notified patient and physician. Varsha BELTRAN
[2022-09-27 14:45] LABS: Bedside Glucose 110 mg/dL (74-106)
--- NOTE | 2022-09-27 15:13 | TREXTCAR_ITS ---
Diet Diet Order/Speech Therapy: 09/24/22 22:52 Diet: Consistent Carb - Calorie Controlled Food consistency:: Regular Liquid Consistency:: Regular/Thin Dietary Modifications:: Cardiac / Heart Healthy Sodium Restricted How many daily calories?: 1800 calorie Routine Orders/Code Status Enema Type: Fleetz Enema Frequency: Daily PRN Suppository Type: Dulcolax 10mg O2 Frequency: PRN Keep PO Greater than or Equal to (%): 45 Wound(s) rt fa: Wound Type: Abrasion rt groin: Wound Type: excoriation LT HEEL: Wound Type: Pressure Injury Therapies Weight Bearing: Weight bearing as tolerated Physical Therapy: Eval and Treat Occupational Therapy: Eval and Treat Problem/Diagnosis (1) Hypoxia: Status: Acute Code(s): R09.02 - Hypoxemia Plan #Hypoxia * being managed for pneumonia as CTA chest was negative for PE, but did show scattered bilateral groundglass opacities with septal thickening * does have a history of sleep apnea but has not been compliant with her CPAP machine * She did get a bit hypoxic overnight and required increasing oxygen to 3 L. * 2D echo showed moderate concentric left ventricular hypertrophy with EF of 65% and normal left ventricular size, wall motion and systolic function with indeterminate diastolic function. * COVID test was negative and respiratory panel was negative. 2D echo pending. * On IV ceftriaxone and azithromycin to cover presumptive pneumonia. * TSH is also markedly elevated at 66.7 so hypothyroidism may be playing a role in her somnolence and hypoxia. * Titrate oxygen currently and saturation above 90%. Breathing treatments with bronchodilators. * will need follow up with pulmonology on outpatient basis for sleep study to set up her CPAP * #Hypothyroidism: * On Synthroid 125 mcg daily. TSH is 66.7 so there is definitely poorly controlled hypothyroidism. * claims compliance with her medication. Will increase synthroid to 150mcg daily and to follow up with director microbiology on outpatient basis for monitoring of thyroid function. . #Acute on chronic anemia * Hb is 8.7 today. Was 10.1 on admission * stool for occult blood pending * check iron panel * * #Type 2 diabetes mellitus, Lantus 45 units nightly. Insulin sliding scale. Accu-Cheks ACHS. #Hyperlipidemia: On fenofibrate and statin #Depression: On escitalopram Restless leg syndrome: On ropinirole DVT prophylaxis: Lovenox Disposition: Came from assisted living but needs to go to the [place] side so will need placement. Awaiting precert Allergies/Procedures Done in Hospital Allergies No Known Allergies Allergy (Verified 09/24/22 18:55) Procedures: None Type of Care/Length of Stay Estimated LOS: Convalescent Care Less Than 30 days Type of Care Needed: Skilled Rehab Potential: Fair Prognosis: Fair Additional Orders/Day of Discharge Day of Discharge: 09/27/22 Dietary and Speech Recommendations Dietitian Recommendations/Changes: Will adjust diet to 1800 calorie/consistent carbohydrate; cardiac/sodium-restricted. Fluid restriction as per physician. ONS not indicated; will offer if PO fails at meals. Discharge Plan Admission Admit Date/Time: 09/24/22 21:26 Primary Reason for Your Visit: hypoxia Attending Provider: Angelina Parker Primary Care Provider: Loco Swann Consulting Providers: Preeti Culver Instructions Patient Instructions: Shortness of Breath Coping Discharge Orders/Prescriptions Prescriptions: New levothyroxine 150 mcg Tablet 150 mcg PO DAILY@0600 Qty: 30 2RF Continued insulin glargine 100 unit/mL Solution 45 unit SUBCUT QHS atorvastatin 10 mg Tablet 10 mg PO DAILY potassium chloride 10 mEq Tablet Extended Release 10 meq PO DAILY metoclopramide HCl 5 mg Tablet 5 mg PO BID pantoprazole 40 mg Tablet,Delayed Release (Dr/Ec) 40 mg PO DAILY gabapentin 100 mg Capsule 200 mg PO BID gabapentin 100 mg Capsule 200 mg PO QHS ergocalciferol (vitamin D2) [Drisdol] 1,250 mcg (50,000 unit) Capsule 1,250 mcg PO QWEEK ropinirole 4 mg Tablet 4 mg PO QHS Rx Instructions: administer 1-3 hours before bedtime insulin lispro 100 unit/mL Cartridge Rx Instructions: Per sliding scale escitalopram oxalate 10 mg Tablet 10 mg PO DAILY fenofibrate nanocrystallized [Tricor] 48 mg Tablet 48 mg PO DAILY Discontinued levothyroxine 125 mcg Tablet 125 mcg PO DAILY Referrals / Follow Up: Loco Swann MD [Primary Care Provider] - Within 2 Weeks Gerson Cox DO [Med Staff - Active Staff] - Within 1 Month Disposition Disposition (needs filled in before D/C Order can be placed): Nursing Home Facility
--- NOTE | 2022-09-27 15:18 | DS.PCM_ITS ---
Providers Date of Admission: 09/24/22 Date of Discharge: 09/27/22 Primary Care Physician: Dr. Claus Swann MD Reason For Visit: HYPOXIA, POSSIBLE VIRAL PNA VS CHF, BL LE PARESTH Diagnosis Discharge Diagnosis (1) Hypoxia: Status: Acute Code(s): R09.02 - Hypoxemia Plan #Hypoxia * being managed for pneumonia as CTA chest was negative for PE, but did show scattered bilateral groundglass opacities with septal thickening * does have a history of sleep apnea but has not been compliant with her CPAP machine * She did get a bit hypoxic overnight and required increasing oxygen to 3 L. * 2D echo showed moderate concentric left ventricular hypertrophy with EF of 65% and normal left ventricular size, wall motion and systolic function with indeterminate diastolic function. * COVID test was negative and respiratory panel was negative. 2D echo pending. * On IV ceftriaxone and azithromycin to cover presumptive pneumonia. * TSH is also markedly elevated at 66.7 so hypothyroidism may be playing a role in her somnolence and hypoxia. * Titrate oxygen currently and saturation above 90%. Breathing treatments with bronchodilators. * will need follow up with pulmonology on outpatient basis for sleep study to set up her CPAP * #Hypothyroidism: * On Synthroid 125 mcg daily. TSH is 66.7 so there is definitely poorly controlled hypothyroidism. * claims compliance with her medication. Will increase synthroid to 150mcg daily and to follow up with crab fisherman on outpatient basis for monitoring of thyroid function. . #Acute on chronic anemia * Hb is 8.7 today. Was 10.1 on admission * stool for occult blood pending * check iron panel * * #Type 2 diabetes mellitus, Lantus 45 units nightly. Insulin sliding scale. Accu-Cheks ACHS. #Hyperlipidemia: On fenofibrate and statin #Depression: On escitalopram Restless leg syndrome: On ropinirole DVT prophylaxis: Lovenox Disposition: Came from assisted living but needs to go to the sn[facility] side so will need placement. Awaiting precert Medications at Discharge Home Medications atorvastatin 10 mg tablet 10 mg PO DAILY 09/24/22 ergocalciferol (vitamin D2) 1,250 mcg (50,000 unit) capsule (Drisdol) 1,250 mcg PO QWEEK 09/24/22 escitalopram oxalate 10 mg tablet 10 mg PO DAILY 09/24/22 fenofibrate nanocrystallized 48 mg tablet (Tricor) 48 mg PO DAILY 09/24/22 gabapentin 100 mg capsule 200 mg PO BID 09/24/22 gabapentin 100 mg capsule 200 mg PO QHS 09/24/22 insulin glargine 100 unit/mL subcutaneous solution 45 unit subcut QHS 09/24/22 insulin lispro 100 unit/mL subcutaneous cartridge 09/24/22 metoclopramide HCl 5 mg tablet 5 mg PO BID 09/24/22 pantoprazole 40 mg tablet,delayed release 40 mg PO DAILY 09/24/22 potassium chloride 10 mEq tablet,extended release 10 meq PO DAILY 09/24/22 ropinirole 4 mg tablet 4 mg PO QHS 09/24/22 levothyroxine 150 mcg tablet 150 mcg PO DAILY@0600 #30 tabs 09/27/22 Hospital Course Operations None Procedures None Summary of Care Provided Minutes Spent on Discharge: 50 Hospital Course: Patient is a 62-year-old female with an extensive past medical history as outlined was admitted through the ED on 09/24/2022 with a complaint of shortness of breath which started about 2 to 3 hours prior to admission and was worsened with exertion and with positional changes. She had no cough, congestion, fever or chills. Review of systems otherwise negative. She was noted to be saturating at 85% on room air which improved to mid 90s on 2 L of oxygen. BNP was not elevated and was only 79.5. Chest x-ray showed bilateral patchy infiltrates of unclear chronicity possibly concerning for pneumonia and CT of the chest showed no evidence of PE but showed bilateral scattered groundglass opacities with septal thickening of unclear chronicity possibly representing pneumonia including atypical viral pneumonia. COVID test was negative and respiratory panel was also negative. She was started on IV azithromycin and Rocephin due to concerns about pneumonia and was admitted to be managed for hypoxia due to probable pneumonia. 2D echo done showed moderate concentric left ventricular hypertrophy with EF of 65% and normal left ventricular size, wall motion and systolic function with indeterminate diastolic function. TSH was markedly elevated at 66.7 so it was thought that her hypothyroidism could be contributing to her hypoxia and somnolence. There was also concern for sleep apnea as patient said she did have a history of sleep apnea but had not been compliant with his CPAP machine because it made her uncomfortable. His Synthroid dose was increased to 150 mcg daily. His symptoms gradually improved and she remained stable on 2 L of oxygen. She was discharged to long-term facility on 09/27/2022. She is follow-up with her primary care doctor and was referred to pulmonology for evaluation for sleep apnea. Patient seen and examined prior to discharge. She had no complaints and felt well. She had an uneventful night and review of systems otherwise negative. Labs and vitals reviewed. Home medication reviewed and reconciled. Physical Exam Const alert, oriented x3 and no apparent distress General Appearance: cooperative, comfortable and well kempt Orientation / Consciousness: awake Exam Limitations: no limitations HEENT normocephalic, head/scalp atraumatic, hearing grossly normal bilaterally and moist oral mucous membranes Mouth: oral and palatal mucosa normal Eyes PERRL and EOMs intact bilaterally Neck no lymphadenopathy and supple Lymph Lymphatic: no lymphadenopathy noted and no lymphedema noted Resp Resp Narrative: Mild diminished breath sounds bibasally. No wheezes or crackles. On room air Cardio regular rate, regular rhythm, S1 normal heart sound, S2 normal heart sound and no murmurs GI normal to inspection, nondistended, normoactive bowel sounds, soft to palpation and non-tender Extremity normal to inspection, full ROM, normal capillary refill and no clubbing, cyanosis or edema Skin no rashes or lesions noted General Skin Exam: no breakdown Neuro oriented x3, CN's II-XII intact bilaterally, moves all extremities, no focal motor deficits and no sensory deficits noted Motor Exam: strength 5/5 throughout Psych thought process normal Appearance: appropriate Weight / BMI Weight Weight: 255 lb 12.8 oz Body Mass Index (BMI) 42.5 ABG / Lab / Microbiology Data Result Diagrams: 09/27/22 04:40 09/27/22 04:40 Laboratory: Laboratory Results - last 24 hr 09/25/22 04:52: Total Protein (PEP) 5.9 L, Globulin 2.8, IgG 731, IgA 341, IgM 20 L, Immunofixation Screen Comment, Albumin (GUIDO) 3.1, Albumin/Globulin (GUIDO) 1.2, Xqzpb-0-[place]su[place] GUIDO 0.3, Yvnzx-1-Svuvbuiff GUIDO 0.8, Beta-Globulins (GUIDO) 1.1, Gamma Globulins (GUIDO) 0.6, GUIDO M-Kristofer , GUIDO Comments Comment 09/25/22 04:52: LAINE Screen Negative, CIRILO-1 Antibody Not Reportable, SS-A/Ro IgG Antibody Not Reportable, SS-B/La IgG Antibody Not Reportable, Sm (Yanecy) Antibody Not Reportable, SUPERVISOR OFFSET PLATE PREPARATION Antibody Not Reportable, Scl-70 Scleroderma Ab Not Reportable, Double Strand DNA Ab Not Reportable, Centromere B Antibody Not Reportable 09/26/22 16:41: POC Glucose 154 H 09/26/22 22:17: POC Glucose 165 H 09/27/22 04:40: WBC 4.9, RBC 3.33 L, Hgb 8.7 L, Hct 28.1 L, MCV 84.4, MCH 26.1 L , MCHC 31.0 L, RDW Std Deviation 49.2 H, RDW Coeff of Vlad 16.0 H, Plt Count 217, MPV 11.0, Immature Gran % (Auto) 1.000 H, Neut % (Auto) 62.6, Lymph % (Auto) 18.3 L, Martin % (Auto) 13.4 H, Eos % (Auto) 4.5, Baso % (Auto) 0.2, Absolute Neuts (auto) 3.1, Absolute Lymphs (auto) 0.90, Nucleated RBC % 0 09/27/22 04:40: Sodium 139, Potassium 5.1, Chloride 104, Carbon Dioxide 28.0, Anion Gap 7, BUN 40 H, Creatinine 1.19 H, Estim Creat Clear Calc 42.98, Est GFR (MDRD) Af Amer 59 L, Est GFR (MDRD) Non-Af 48 L, BUN/Creatinine Ratio 33.6 H, Glucose 139 H, Calcium 8.8 09/27/22 06:42: POC Glucose 103 09/27/22 11:12: POC Glucose 78 09/27/22 14:24: POC Glucose 110 H Microbiology: Microbiology 09/25/22 21:21 Urine, Clean Catch Streptococcus pneumoniae Antigen (M - Final 09/25/22 21:21 Urine, Clean Catch Legionella Antigen - Final 09/24/22 20:15 Mucosa - Nasopharyngeal Respiratory Panel (PCR) - Final 09/24/22 19:25 Nasal Secretion SARS-CoV-2 & FLU Antigen (Rapid) - Final D/C Instructions Discharge Diet: Low fat / Low cholesterol Discharge Activity: Return to Normal Activity Weight Bearing Status: Weight bearing as tolerated Call your doctor if you observe: Fever of 101 or Higher, Shortness of breath, Dizziness, Swelling in the ankles, Chest pain, Increased palpitations (irregular heartbeat) and Calf discomfort Meaningful Use Info Meaningful Use Diagnoses (Choose all that apply): None applicable Discharge Plan Admission Admit Date/Time: 09/24/22 21:26 Primary Reason for Your Visit: hypoxia Attending Provider: Angelina Parker Primary Care Provider: Loco Swann Consulting Providers: Preeti Culver Instructions Patient Instructions: Shortness of Breath Coping Additional Instructions / Restrictions: use oxygen for shortness of breath as needed. Follow up with PCP and pulmonology for evaluation for sleep apnea Discharge Orders/Prescriptions Prescriptions: New levothyroxine 150 mcg Tablet 150 mcg PO DAILY@0600 Qty: 30 2RF Continued insulin glargine 100 unit/mL Solution 45 unit SUBCUT QHS atorvastatin 10 mg Tablet 10 mg PO DAILY potassium chloride 10 mEq Tablet Extended Release 10 meq PO DAILY metoclopramide HCl 5 mg Tablet 5 mg PO BID pantoprazole 40 mg Tablet,Delayed Release (Dr/Ec) 40 mg PO DAILY gabapentin 100 mg Capsule 200 mg PO BID gabapentin 100 mg Capsule 200 mg PO QHS ergocalciferol (vitamin D2) [Drisdol] 1,250 mcg (50,000 unit) Capsule 1,250 mcg PO QWEEK ropinirole 4 mg Tablet 4 mg PO QHS Rx Instructions: administer 1-3 hours before bedtime insulin lispro 100 unit/mL Cartridge Rx Instructions: Per sliding scale escitalopram oxalate 10 mg Tablet 10 mg PO DAILY fenofibrate nanocrystallized [Tricor] 48 mg Tablet 48 mg PO DAILY Discontinued levothyroxine 125 mcg Tablet 125 mcg PO DAILY Referrals / Follow Up: Loco Swann MD [Primary Care Provider] - Within 2 Weeks Gerson Cox DO [Med Staff - Active Staff] - Within 1 Month Disposition Disposition (needs filled in before D/C Order can be placed): Assisted Facility Charges/Coding Visit Charges Inpatient E&M: 72649 Disch Hosp >30min
--- NOTE | 2022-09-27 15:27 | CASEMGMT ---
WES notified [facility] that patient will be returning today. Await orders. Varsha Villatoro COLLEGE AND CAREER COUNSELORChristy BELTRAN
--- NOTE | 2022-09-27 16:23 | CASEMGMT ---
WES called [facility] as required by insurance to set up transport. WES spoke with Marita who told SW that they do not do facility to facility transfers. WES spoke with Case Management Managers Kacey and Caterina Ross. both gave permission to call [facility] and set up wheelchair van. SW called [facility] and arranged for patient to get picked up at 830 via wheelchair van. SW faxed orders and packing and wrapping supervisor time to [facility]. Plan: d/c to [facility] under skilled level of care on a PASRR. [facility] transported via wheelchair van. Varsha Villatoro PROFESSIONAL DEVELOPMENT DIRECTOR GRANTS ASSISTANT
--- NOTE | 2022-09-27 16:37 | CASEMGMT ---
SW faxed COVID test to [facility]. Varsha Villatoro FRONT DESK WORKER OPTIONS TRADER
[2022-09-27 17:10] LABS: Bedside Glucose 104 mg/dL (74-106)
--- NOTE | 2022-09-27 18:21 | NURSING ---
This RN called and gave report to CLEM Bassett at [facility].
== END 2022-09-27 20:55 | disposition skilled nursing facility (03) | DRG 139 ==
LOC: ED 21:01 → PCU 21:52
PROVIDERS: Admitting Provider Family Medicine; Emergency Provider Emergency Medicine; PCP Internal Medicine; Visit Provider Student in an Organized Health Care Education/Training Program
DX: J18.9 Pneumonia, unspecified organism (principal); E11.22 Type 2 diabetes mellitus with diabetic chronic kidney disease; E11.40 Type 2 diabetes mellitus with diabetic neuropathy, unspecified; E03.9 Hypothyroidism, unspecified; D64.9 Anemia, unspecified; Z79.4 Long term (current) use of insulin; E66.01 Morbid (severe) obesity due to excess calories; Z68.41 Body mass index [BMI] 40.0-44.9, adult; E78.5 Hyperlipidemia, unspecified; G47.33 Obstructive sleep apnea (adult) (pediatric); I12.9 Hypertensive chronic kidney disease with stage 1 through stage 4 chronic kidney disease, or unspecified chronic kidney disease; I89.0 Lymphedema, not elsewhere classified; G25.81 Restless legs syndrome; R09.02 Hypoxemia; F32.A Depression, unspecified; R60.0 Localized edema; M62.81 Muscle weakness (generalized)
CPT/HCPCS: 36415; 36600; 70551; 71045; 71275; 72146; 72148; 80048; 80053; 80061; 82550; 82607; 82728; 82746; 82784; 82803; 82962; 83036; 83540; 83550; 83735; 83880; 84100; 84145; 84165; 84439; 84443; 84484; 85025; 85652; 86038; 86140; 86225; 86235; 86334; 87428; 87449; 87633; 87635; 87811; 93005; 93306; 93922; 94640; 94668; 97110; 97116; 97162; 97166; 97530; 97535; 99285; J7050; Q9967; A4216; J1940; U0003; U0005

== ENCOUNTER 2022-11-14 10:15 | Outpatient (RCR) | payer MEDICAID, SELFPAY ==
[2022-10-24 10:04] VITALS: BP 145/81; PULSE 79; RESP 16; TEMP 36; BMI 40.4
--- NOTE | 2022-10-24 10:47 | PCM.WC.HP ---
History of Present Illness Date of Service: 10/24/22 Chief Complaint: Left posterior lateral heel History of Wound: Patient is a 62-year-old female with history of diabetes mellitus type 2 with peripheral polyneuropathy, morbid obesity, chronic lymphedema, SACHIN?noncompliance with CPAP, hypothyroidism, depression and anxiety, and history of incision and drainage of abscess of the left lower extremity performed in [place], [place] where she underwent long-term antibiotics and lengthy hospital stay in July 2022. Patient was recently admitted to [facility] and discharged on 09/27/2022 following episode of shortness of breath and weakness. She is a resident of an assisted living facility. She was referred to the wound care center for a left lateral heel ulceration, likely secondary to pressure. She states the ulcer site is painful. States the ulcer site has only been present for a few weeks. [facility] Medical History Anxiety and depression Chronic acquired lymphedema Chronic anemia CKD (chronic kidney disease), stage III Diabetes mellitus, type 2 HLD (hyperlipidemia) HTN (hypertension) Hypothyroidism Hypoxia Morbid obesity SACHIN (obstructive sleep apnea) Home Medications atorvastatin 10 mg tablet 10 mg PO DAILY 09/24/22 [History Last Taken Unknown] ergocalciferol (vitamin D2) 1,250 mcg (50,000 unit) capsule (Drisdol) 1,250 mcg PO QWEEK 09/24/22 [History Last Taken Unknown] escitalopram oxalate 10 mg tablet 10 mg PO DAILY 09/24/22 [History Last Taken Unknown] fenofibrate nanocrystallized 48 mg tablet (Tricor) 48 mg PO DAILY 09/24/22 [History Last Taken Unknown] gabapentin 100 mg capsule 200 mg PO BID 09/24/22 [History Last Taken Unknown] gabapentin 100 mg capsule 200 mg PO QHS 09/24/22 [History Last Taken Unknown] insulin glargine 100 unit/mL subcutaneous solution 45 unit subcut QHS 09/24/22 [History Last Taken Unknown] insulin lispro 100 unit/mL subcutaneous cartridge 09/24/22 [History Last Taken Unknown] metoclopramide HCl 5 mg tablet 5 mg PO BID 09/24/22 [History Last Taken Unknown] pantoprazole 40 mg tablet,delayed release 40 mg PO DAILY 09/24/22 [History Last Taken Unknown] potassium chloride 10 mEq tablet,extended release 10 meq PO DAILY 09/24/22 [History Last Taken Unknown] ropinirole 4 mg tablet 4 mg PO QHS 09/24/22 [History Last Taken Unknown] levothyroxine 150 mcg tablet 150 mcg PO DAILY@0600 #30 tabs 09/27/22 [Rx Last Taken Unknown] Allergy/AdvReac Type Severity Reaction Status Date / Time No Known Allergies Allergy Verified 09/24/22 18:55 Family History Mother Heart disease Hypertension Diabetes Father Prostate cancer Surgical History H/O cataract removal with insertion of prosthetic lens History of cholecystectomy History of surgery on lower extremity Social History housing: half-way Smoking Status: Never smoker alcohol intake: never substance use type: does not use ROS Constitutional Constitutional: Denies anorexia, chills, fatigue or fever(s) Eyes Eyes: Denies blurry vision, erythema or eye pain ENT HEENT: Denies dysphagia, nasal congestion or sore throat Cardiovascular Cardiovascular: Denies chest pain, claudication or dyspnea Respiratory/Chest Respiratory/Chest: Denies cough, hemoptysis or shortness of breath at rest Gastrointestinal Gastrointestinal: Denies abdominal pain, constipation, diarrhea, nausea or vomiting Genitourinary Genitourinary: Denies dysuria, hematuria, urinary frequency, urinary hesitancy, urinary incontinence or urinary urgency Musculoskeletal Musculoskeletal: Denies joint pain, joint stiffness or joint swelling Integumentary Integumentary: Denies lesions, pruritus or rash Neurologic Neurologic: Denies dizziness, numbness or seizures Psychiatric Psychiatric: Reports anxiety and depression Endocrine Endocrinology: Denies cold intolerance, heat intolerance or polydipsia Hematologic/Lymphatic Hematologic/Lymphatic: Denies easy bleeding or easy bruising Vital Signs Vital Signs Vital Signs: 10/24/22 10:04 Temperature 96.8 F L Temperature Source Temporal Pulse Rate 79 Respiratory Rate 16 Blood Pressure 145/81 H Blood Pressure Mean 102 Blood Pressure Source Manual Blood Pressure Position Semi-Fowlers Blood Pressure Location Right Forearm Weight Weight: 109.769 kg Body Mass Index (BMI) 40.4 Physical Exam Const alert, oriented x3, no apparent distress and well nourished General Appearance: cooperative HEENT normocephalic Eyes General Eye: normal appearance of both eyes Neck General: normal visual inspection Lymph Lymphatic: no lymphadenopathy noted and no lymphedema noted Resp normal respiratory effort Cardio regular rate and regular rhythm Extremity normal capillary refill, no joint enlargement and no pedal edema Extremity Narrative: DP and PT pulses weakly palpable secondary to obesity. Capillary fill time less than 4 seconds to the digits. Normal temperature gradient noted. Hair growth absent to the digits Musculoskeletal: Muscle strength 5 of 5 age-appropriate. Pain to palpation about the ulcerative site of the left heel. No pain to palpation to bones of the foot or ankle. Decreased range of motion of the ankle joint with the knee extended without pain or crepitus bilateral. There is decreased range of motion to the subtalar joint and first metatarsophalangeal joint without pain or crepitus bilateral. Skin no rashes or lesions noted, skin turgor normal and no jaundice Wound Narrative: Left lower extremity: Left plantar posterior heel ulceration is noted with mixed fibrogranular layer. Surrounding skin is atrophic and healthy appearing. Ulceration demonstrates no erythema, no malodor, no purulent drainage, no palpable fluctuance/bogginess, no visible abscess formation, no lymphangitic streaking. Neuro moves all extremities Neuro Narrative: Decreased protective sensation noted bilateral consistent with peripheral polyneuropathy Debridement Note Debridement Note Wound debrided: Left plantar lateral heel Laterality: Left Wound Grade/Stage: Mendoza stage I Type of Debridement: Excisional debridement Anesthesia Used: 5% Lidocaine Gel Depth: Down to and including healthy tissue and in the subcutaneous layer Percentage of wound debrided: 100 Instrument Used: - (1 mm curette) Tissue Removed: Fibrous, devitalized subcutaneous, biofilm, slough Severity: Fat Layer Exposed Amount of bleeding with debridement: Mild Bleeding Controlled with: Compression and gauze Patient tolerated procedure: Patient tolerated procedure well Post-Debridement Measurements and Additional Note: Post-Debridement Measurements/Treatment [facility] - Nurse 1 - General Ulcer Assessment Start: 10/24/22 10:04 Freq: Status: Active Protocol: CHERRI Activity Type Activity Date Activity User E-sign Co-sign Detail Recorded Client Recorded Date Recorded By Document 10/24/22 10:04 NETTA [id number] 10/24/22 10:17 NETTA 10/24/22 10:04 [facility] - Today's Visit Information Type of service Follow-up Visit (Physician/[facility] ) Arrival Mode Wheelchair Transfer Assistance Manual Patient Identification Verified (Name & Yes ) Patient Requires Transmission-Based No Precautions Height and Weight Height 5 ft 4.85 in Weight 109.769 kg Weight in Pounds 242.0 lbs Body Mass Index (BMI) 40.4 BMI Classification Obese BSA - Yan 2.14 Vital Signs Temperature (97.8 F-99.1 F) 96.8 F L Temperature Source Temporal Pulse Rate (60-100) 79 Pulse Location Monitor Respiratory Rate (12-18) 16 Respiratory rate source Observation Blood Pressure (90/60-120/80) 145/81 H Blood Pressure Mean 102 Source Manual Position Semi-Fowlers Blood Pressure Location Right Forearm History Since Last Visit- (Skip if this is Patient's initial visit) Left Footwear No Footwear Right Footwear No Footwear Pain Scale: 0-10 Numeric Is Patient Pain Free? Yes [facility] - Nurse 1 - General Ulcer Measurement Start: 10/24/22 10:04 Freq: Status: Active Protocol: Activity Type Activity Date Activity User E-sign Co-sign Detail Recorded Client Recorded Date Recorded By Document 10/24/22 10:04 NETTA [id number] 10/24/22 10:17 NETTA 10/24/22 10:04 Wound Center Nurse 1 1-LEFT LATERAL HEEL -Combined with other wound No -Current Size (cm) - Length 0.6 -Current Size (cm) - Width 0.3 -Current Size (cm) - Depth 0.2 -Total Square Cm 0.18 -Photo Taken Yes -Epithelialization None Present -Tunneling No -Undermining/Tunneling No -Circular Undermining No -Classification - Thickness Unclassifiable (Eschar Covered ) -Exudate Amt None Present -Wound Margin Indistinct, Non -Visible -Granulation Amt None Present (0 %) -Slough/Fibrin Yes -Necrosis Amt Large (67-100%) -Necrotic Tissue Type Adherent Slough -Structure Exposed N/A -Texture (Ofelia-wound Skin Appearance) Assessed, Localized Edema -Moisture (Ofelia-wound Skin Appearance) Assessed,Dry/ Scaly -Color (Ofelia-wound Skin Appearance) Assessed -Temperature (Ofelai-wound Skin No Abnormality Appearance) (Pt Warm) -Tenderness on Palpation (Ofelia-wound No Skin Appearance) -Ulcer Cleansing Rinsed/ Irrigated with Saline -Foul Odor after Cleansing No -Anesthetic Used 5% Lidocaine Gel Lower Limb Edema Present Yes Right Calf (cm) 47 Right Ankle (cm) 25.8 Left Calf (cm) 44.7 Left Ankle (cm) 25.0 Assessment/Plan Assessment/Plan (1) Morbid (severe) obesity due to excess calories: CODE(S): E66.01 - Morbid (severe) obesity due to excess calories (2) Lymphedema, not elsewhere classified: CODE(S): I89.0 - Lymphedema, not elsewhere classified (3) Type 2 diabetes mellitus with foot ulcer: CODE(S): E11.621 - Type 2 diabetes mellitus with foot ulcer; L97.509 - Non-pressure chronic ulcer of other part of unspecified foot with unspecified severity (4) Diabetes mellitus with diabetic polyneuropathy: CODE(S): E11.42 - Type 2 diabetes mellitus with diabetic polyneuropathy (5) Pressure ulcer of left heel, stage 1: CODE(S): L89.621 - Pressure ulcer of left heel, stage 1 PLAN: Plan Patient seen and evaluated I reviewed her LEAS performed on 09/24/22. Arterial study demonstrates triphasic waveforms on Doppler of the PT and DP arteries bilateral. DORCAS demonstrates noncompressible vessels bilateral DP and PT. Digital brachial indices 0.79 right and 0.78 left. Evidence of some arterial occlusive disease secondary to atherosclerosis. I do not feel vascular status will impede healing. Patient is diabetic with recent A1c of 6.9% on 09/26/2022. She is noted to have plantar lateral heel ulceration to the left foot. Ulceration underwent debridement as noted in the clinical panel above. Ulceration measures 0.6 cm x 0.3 cm x 0.2 cm. No signs of infection. Ulceration was dressed with Korina and dry sterile dressing. Patient was educated on performing dressing changes daily to the site. Discussed continued offloading of the left heel as this ulceration is likely to be secondary to pressure from recliner or bed. In addition to offloading discussed elevating both lower extremities at all times of rest to control edema. Encouraged healthy lifestyle with proper diabetic diet and exercise along with caloric reduction in order to maintain proper blood sugar level/A1c control and for weight loss. Recommended adequate protein intake to aid in healing. Recommended Turner supplementation. Patient seems to have a lives a fair attitude when it comes to her health. She states that she does not do much. Discussed the signs and symptoms of infection. Discussed that if she gets any redness about the ulcerative site that moves up the leg, purulent drainage, increasing foul odor, or if she experiences any fever greater than 101 ?F, nausea, vomiting, or chills that she is to report straight to the ED as these are signs of progressing infection and she should be started on IV antibiotics. The following work up and care recommendations were made: Dressing: Korina and dry sterile dressing, change daily. Wash: Soap and water Tissue growth optimization: Korina Offload: Continue to offload left heel at all times of rest. Recommend foam waffle boot for continued offloading. Vascular: Weakly palpable pedal pulses on examination. Recent arterial studies 10/15/2022 demonstrate triphasic waveforms of DP and PT pulses bilateral with noncompressible vessels of the DP and PT bilateral. Edema: Continue to elevate lower extremities at all times of rest, recommend Tubigrip compression stocking. Infection: No signs of infection Pain: She may take [id number] Tylenol for discomfort Host factors: DM type II with peripheral polyneuropathy, hypothyroidism, morbid obesity, chronic lymphedema, depression and anxiety. These factors impact healing potential and may complicate recovery. I answered all the patient's questions. To return to the wound healing center in 1 week or call sooner if the patient has any questions or concerns.
[2022-11-14 10:19] VITALS: BP 172/80; PULSE 80; RESP 22; TEMP 36.4; BMI 40.4
--- NOTE | 2022-11-14 10:27 | PCM.WC.PN ---
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 Patient was recently admitted to [facility] and discharged on 09/27/2022 following episode of shortness of breath and weakness. She is a resident of an assisted living facility. She was referred to the wound care center for a left lateral heel ulceration, likely secondary to pressure. She states the ulcer site is painful. States the ulcer site has only been present for a few weeks. Subjective Subjective This is a 62-year-old female who presents to the wound care center for follow-up of a left plantar lateral heel ulceration. She has been changing dressings to the site daily. Denies constitutional symptoms today. Denies further complaints today. Objective Data Objective Data Vital Signs: Vital Signs Temp Pulse Resp BP 97.5 F L 80 22 H 172/80 H 11/14/22 10:19 11/14/22 10:19 11/14/22 10:19 11/14/22 10:19 Weight: 109.769 kg Body Mass Index (BMI) 40.4 Physical Exam Const alert, oriented x3, no apparent distress and well nourished General Appearance: cooperative HEENT normocephalic Eyes General Eye: normal appearance of both eyes Neck General: normal visual inspection Lymph Lymphatic: no lymphadenopathy noted and no lymphedema noted Resp normal respiratory effort Cardio regular rate and regular rhythm Extremity normal capillary refill, no joint enlargement and no pedal edema Extremity Narrative: DP and PT pulses weakly palpable secondary to obesity. Capillary fill time less than 4 seconds to the digits. Normal temperature gradient noted. Hair growth absent to the digits Musculoskeletal: Muscle strength 5 of 5 age-appropriate. Pain to palpation about the ulcerative site of the left heel. No pain to palpation to bones of the foot or ankle. Decreased range of motion of the ankle joint with the knee extended without pain or crepitus bilateral. There is decreased range of motion to the subtalar joint and first metatarsophalangeal joint without pain or crepitus bilateral. Skin no rashes or lesions noted, skin turgor normal and no jaundice Wound Narrative: Left lower extremity: Left plantar posterior heel ulceration is noted with mixed fibrogranular layer. Surrounding skin is atrophic and healthy appearing. Ulceration demonstrates no erythema, no malodor, no purulent drainage, no palpable fluctuance/bogginess, no visible abscess formation, no lymphangitic streaking. Neuro moves all extremities Neuro Narrative: Decreased protective sensation noted bilateral consistent with peripheral polyneuropathy Debridement Note Debridement Note Wound debrided: Left plantar lateral heel Laterality: Left Wound Grade/Stage: Mendoza stage I Type of Debridement: Excisional debridement Anesthesia Used: 5% Lidocaine Gel Depth: Down to and including healthy tissue and in the subcutaneous layer Percentage of wound debrided: 100 Instrument Used: - (1 mm curette) Tissue Removed: Fibrous, devitalized subcutaneous, biofilm, slough Severity: Fat Layer Exposed Amount of bleeding with debridement: Mild Bleeding Controlled with: Compression and gauze Patient tolerated procedure: Patient tolerated procedure well Post-Debridement Measurements and Additional Note: Post-Debridement Measurements/Treatment - Nurse 1 - General Ulcer Assessment Start: 10/24/22 10:04 Freq: Status: Active Protocol: CHERRI Activity Type Activity Date Activity User E-sign Co-sign Detail Recorded Client Recorded Date Recorded By Document 10/24/22 10:04 [id number] 10/24/22 10:17 Document 11/14/22 10:19 [id number] 11/14/22 10:24 DL 10/24/22 11/14/22 10:04 10:19 - Today's Visit Information Type of service Follow-up Visit Follow-up Visit (Physician/HYDROPRESS OPERATOR (Physician/HYDROPRESS OPERATOR ) ) Arrival Mode Wheelchair Wheelchair Transfer Assistance Manual Manual Transfer Assist (Other) x1 Patient Identification Verified (Name & Yes Yes ) Patient Requires Transmission-Based No No Precautions Finger Stick Blood Sugar(mg/dl) (if 132 indicated): Blood Sugar Stated by Patient Height and Weight Height 5 ft 4.85 in Weight 109.769 kg Weight in Pounds 242.0 lbs Body Mass Index (BMI) 40.4 40.4 BMI Classification Obese Obese BSA - Yan 2.14 Vital Signs Temperature (97.8 F-99.1 F) 96.8 F L 97.5 F L Temperature Source Temporal Temporal Pulse Rate (60-100) 79 80 Pulse Location Monitor Monitor Respiratory Rate (12-18) 16 22 H Respiratory rate source Observation Observation Blood Pressure (90/60-120/80) 145/81 H 172/80 H Blood Pressure Mean (mm Hg) 102 110 Source Manual Monitor Position Semi-Fowlers Blood Pressure Location Right Forearm History Since Last Visit- (Skip if this is Patient's initial visit) Have you changed medications since your No last visit? Any new allergies or adverse reactions No Had a fall/change in ADL's that may No increase risk of falls Signs or symptoms of abuse and/or No neglect since last visit Have you been in the hospital since your No last visit? Has dressing in place as prescribed Yes Has compression in place as prescribed N/A Has offloadiing in place as prescribed N/A Left Footwear No Footwear Right Footwear No Footwear Pain Scale: 0-10 Numeric Is Patient Pain Free? Yes Yes WC - Nurse 1 - General Ulcer Measurement Start: 10/24/22 10:04 Freq: Status: Active Protocol: Activity Type Activity Date Activity User E-sign Co-sign Detail Recorded Client Recorded Date Recorded By Document 10/24/22 10:04 [id number] 10/24/22 10:17 JF Document 11/14/22 10:19 DL [id number] 11/14/22 10:24 DL 10/24/22 11/14/22 10:04 10:19 Wound Center Nurse 1 1-LEFT LATERAL HEEL -Combined with other wound No -Current Size (cm) - Length 0.6 0.1 -Current Size (cm) - Width 0.3 0.1 -Current Size (cm) - Depth 0.2 0.1 -Total Square Cm 0.18 0.01 -Photo Taken Yes Yes -Epithelialization None Present -Tunneling No -Undermining/Tunneling No -Circular Undermining No -Classification - Thickness Unclassifiable (Eschar Covered ) -Exudate Amt None Present None Present -Wound Margin Indistinct, Non Flat & Intact -Visible -Granulation Amt None Present (0 Large (67-100%) %) -Granulation Quality Pale,[place] -Slough/Fibrin Yes -Necrosis Amt Large (67-100%) None Present (0 %) -Necrotic Tissue Type Adherent Slough -Structure Exposed N/A N/A -Texture (Ofelia-wound Skin Appearance) Assessed, Callus Localized Edema -Moisture (Ofelia-wound Skin Appearance) Assessed,Dry/ Dry/Scaly Scaly -Color (Ofelia-wound Skin Appearance) Assessed No Abnormality -Temperature (Ofelia-wound Skin No Abnormality No Abnormality Appearance) (Pt Warm) (Pt Warm) -Tenderness on Palpation (Ofelia-wound No No Skin Appearance) -Ulcer Cleansing Rinsed/ Wound Cleanser Irrigated with Saline -Foul Odor after Cleansing No No -Anesthetic Used 5% Lidocaine 5% Lidocaine Gel Gel Lower Limb Edema Present Yes Right Calf (cm) 47 Right Ankle (cm) 25.8 Left Calf (cm) 44.7 Left Ankle (cm) 25.0 WC - Nurse 2 - General Ulcer CM Notes Start: 10/24/22 10:04 Freq: Status: Active Protocol: Activity Type Activity Date Activity User E-sign Co-sign Detail Recorded Client Recorded Date Recorded By Document 10/24/22 11:03 PL [id number] 10/24/22 11:08 PL 10/24/22 11:03 Wound Center Nurse 2 -Time 11:00 -Correct Patient Yes -Correct Side, Site, Position Yes -Correct Procedure Yes -Procedure Performed Yes -Type of Procedure Debridement -Clinical Debridement Subcutaneous -Tissue Removed Subcutaneous -Post Debridement (cm) - Length 0.6 -Post Debridement (cm) - Width 0.5 -Post Debridement (cm) - Depth 0.1 -Total Square (Post) (cm) 0.30 -Area of Debridement (cm) - Length 0.6 -Area of Debridement (cm) - Width 0.5 -Total Square (Area) (cm) 0.30 -Tunneling No -Undermining/Tunneling No -Circular Undermining No -Wound/Ulcer Outcome Not Healed -Ulcer Cleansing Rinsed/ Irrigated with Saline -Foul Odor after Cleansing No -Bioengineered Tissue No -Bleeding Controlled with Pressure -Treatment Response Procedure Tolerated Well -Debridement - Subq, 1st 20sq cm Yes Pain Scale: 0-10 Numeric Is Patient Pain Free? Yes WC - Nurse 3 - General Ulcer D/C NN Start: 10/24/22 10:04 Freq: Status: Active Protocol: Activity Type Activity Date Activity User E-sign Co-sign Detail Recorded Client Recorded Date Recorded By Document 10/24/22 11:54 NETTA [id number] 10/24/22 11:55 NETTA 10/24/22 11:54 Wound Care Center Nurse 3 1-LEFT LATERAL HEEL -Ulcer Cleansing Rinsed/ Irrigated with Saline -Foul Odor after Cleansing No -Primary Dressing Applied Promogran Korina Matter -Other Covering nurse's hat with an ABD pad -Promogran Korina Matter 1 Pain Scale: 0-10 Numeric Is Patient Pain Free? Yes WC - Visit Discharge Discharge Condition Stable Ambulatory Status Wheelchair Transportation assisted living transport Medication Reconcilliation completed & Yes provided to patient/care provider Clinical Summary of Care Provided Yes Assessment/Plan Assessment/Plan (1) Morbid (severe) obesity due to excess calories: CODE(S): E66.01 - Morbid (severe) obesity due to excess calories (2) Lymphedema, not elsewhere classified: CODE(S): I89.0 - Lymphedema, not elsewhere classified (3) Type 2 diabetes mellitus with foot ulcer: CODE(S): E11.621 - Type 2 diabetes mellitus with foot ulcer; L97.509 - Non-pressure chronic ulcer of other part of unspecified foot with unspecified severity (4) Diabetes mellitus with diabetic polyneuropathy: CODE(S): E11.42 - Type 2 diabetes mellitus with diabetic polyneuropathy (5) Pressure ulcer of left heel, stage 1: CODE(S): L89.621 - Pressure ulcer of left heel, stage 1 PLAN: Plan Patient seen and evaluated I reviewed her LEAS performed on 09/24/22. Arterial study demonstrates triphasic waveforms on Doppler of the PT and DP arteries bilateral. DORCAS demonstrates noncompressible vessels bilateral DP and PT. Digital brachial indices 0.79 right and 0.78 left. Evidence of some arterial occlusive disease secondary to atherosclerosis. I do not feel vascular status will impede healing. Patient is diabetic with recent A1c of 6.9% on 09/26/2022. She is noted to have plantar lateral heel ulceration to the left foot. Ulceration underwent debridement as noted in the clinical panel above. Ulceration measures 0.3 cm x 0.2 cm x 0.1 cm. No signs of infection. Ulceration was dressed with Korina and dry sterile dressing. Patient was educated on performing dressing changes daily to the site. Discussed continued offloading of the left heel as this ulceration is likely to be secondary to pressure from recliner or bed. Ulceration demonstrates reduction in size versus previous visit (0.6cm x 0.3cm x0.2cm). In addition to offloading discussed elevating both lower extremities at all times of rest to control edema. Encouraged healthy lifestyle with proper diabetic diet and exercise along with caloric reduction in order to maintain proper blood sugar level/A1c control and for weight loss. Recommended adequate protein intake to aid in healing. Recommended Turner supplementation. Patient seems to have a laissez-faire attitude when it comes to her health. She states that she does not do much. Discussed the signs and symptoms of infection. Discussed that if she gets any redness about the ulcerative site that moves up the leg, purulent drainage, increasing foul odor, or if she experiences any fever greater than 101 ?F, nausea, vomiting, or chills that she is to report straight to the ED as these are signs of progressing infection and she should be started on IV antibiotics. The following work up and care recommendations were made: Dressing: Korina and dry sterile dressing, change daily. Wash: Soap and water Tissue growth optimization: Korina Offload: Continue to offload left heel at all times of rest. Recommend foam waffle boot for continued offloading. Vascular: Weakly palpable pedal pulses on examination. Recent arterial studies 10/15/2022 demonstrate triphasic waveforms of DP and PT pulses bilateral with noncompressible vessels of the DP and PT bilateral. Edema: Continue to elevate lower extremities at all times of rest, recommend Tubigrip compression stocking. Infection: No signs of infection Pain: She may take [id number] Tylenol for discomfort Host factors: DM type II with peripheral polyneuropathy, hypothyroidism, morbid obesity, chronic lymphedema, depression and anxiety. These factors impact healing potential and may complicate recovery. I answered all the patient's questions. To return to the wound healing center in 2 weeks or call sooner if the patient has any questions or concerns.
== END 2022-11-17 23:59 | disposition home or self-care (01) ==
LOC: WC 10:15
PROVIDERS: PCP Internal Medicine; Referring Provider Nurse Practitioner Adult Health; Visit Provider Student in an Organized Health Care Education/Training Program
DX: E11.621 Type 2 diabetes mellitus with foot ulcer (principal); L89.621 Pressure ulcer of left heel, stage 1; E11.22 Type 2 diabetes mellitus with diabetic chronic kidney disease; E11.42 Type 2 diabetes mellitus with diabetic polyneuropathy; N18.30 Chronic kidney disease, stage 3 unspecified; I12.9 Hypertensive chronic kidney disease with stage 1 through stage 4 chronic kidney disease, or unspecified chronic kidney disease; I89.0 Lymphedema, not elsewhere classified; E78.5 Hyperlipidemia, unspecified; E03.9 Hypothyroidism, unspecified; F32.A Depression, unspecified; F41.9 Anxiety disorder, unspecified; G47.33 Obstructive sleep apnea (adult) (pediatric); E66.01 Morbid (severe) obesity due to excess calories; Z68.41 Body mass index [BMI] 40.0-44.9, adult; Z79.4 Long term (current) use of insulin; Z79.890 Hormone replacement therapy; Z79.899 Other long term (current) drug therapy
CPT/HCPCS: 11042; 99213; G0463

== ENCOUNTER 2022-11-15 17:09 | Inpatient (IN) | payer MEDICAID, SELFPAY ==
[2022-11-15] VITALS (8 sets, daily range): BP systolic 119–136; BP diastolic 54–74; PULSE 82–88; RESP 16–20; TEMP 36.7–36.9; O2SAT 89–96; BMI 28.7; BMI 42.3
--- NOTE | 2022-11-15 18:38 | EKG12_ITS ---
Test Reason : SOB Blood Pressure : / mmHG Vent. Rate : 083 BPM Atrial Rate : 083 BPM P-R Int : 166 ms QRS Dur : 076 ms QT Int : 396 ms P-R-T Axes : 024 -18 063 degrees QTc Int : 465 ms Normal sinus rhythm with sinus arrhythmia Normal ECG Confirmed by JENNIFER KAPADIA, NHUNG ([id number]), editorial intern HARSHIL CARDONA ([id number]) on 11/18/2022 11:32:47 AM Referred By: STEPHANIE/YESSI Confirmed By:LISA RODRIGUEZ MD
--- NOTE | 2022-11-15 18:53 | EDS_ITS ---
HPI History of Present Illness Chief Complaint: Shortness of Breath Informant: patient Onset/Context/Timing Onset: Days Context: gradual Timing: Continuous Current Severity: Mild Maximum Severity: Mild Worsened by: Exertion and Coughing Relieved by: Oxygen Associated Symptoms cough and green sputum; Negative for fever, sore throat or chills Chest Pain: Positive for None Narrative Narrative: 59-year-old female history of diabetes and chronic lymphedema. Denies any cardiac history. No history of DVT or PE. No recent travel, surgery immobilization. No calf pain or swelling. No hemoptysis. Denies any history of lung disease and no prior smoker. States that she had a cough shortness of breath approximately a week. She has been coughing up green sputum. No hemoptysis. No fever or chills. She is normally not on oxygen. PE Risk Factors: Negative for Cancer, OCP + Smoking + > 35, Prior DVT or PE, Recent immobilization, Recent surgery or Recent travel Prior similar symptoms: Yes Recent Illness/Hospitalization: No PFSH PFS Medical History Anxiety and depression Chronic acquired lymphedema Chronic anemia CKD (chronic kidney disease), stage III Diabetes mellitus, type 2 HLD (hyperlipidemia) HTN (hypertension) Hypothyroidism Hypoxia Morbid obesity SACHIN (obstructive sleep apnea) Home Medications atorvastatin 10 mg tablet 10 mg PO DAILY 09/24/22 [History Last Taken Unknown] ergocalciferol (vitamin D2) 1,250 mcg (50,000 unit) capsule (Drisdol) 1,250 mcg PO QWEEK 09/24/22 [History Last Taken Unknown] escitalopram oxalate 10 mg tablet 10 mg PO DAILY 09/24/22 [History Last Taken Unknown] fenofibrate nanocrystallized 48 mg tablet (Tricor) 48 mg PO DAILY 09/24/22 [History Last Taken Unknown] gabapentin 100 mg capsule 200 mg PO BID 09/24/22 [History Last Taken Unknown] gabapentin 100 mg capsule 200 mg PO QHS 09/24/22 [History Last Taken Unknown] insulin glargine 100 unit/mL subcutaneous solution 45 unit subcut QHS 09/24/22 [History Last Taken Unknown] insulin lispro 100 unit/mL subcutaneous cartridge 09/24/22 [History Last Taken Unknown] metoclopramide HCl 5 mg tablet 5 mg PO BID 09/24/22 [History Last Taken Unknown] pantoprazole 40 mg tablet,delayed release 40 mg PO DAILY 09/24/22 [History Last Taken Unknown] potassium chloride 10 mEq tablet,extended release 10 meq PO DAILY 09/24/22 [History Last Taken Unknown] ropinirole 4 mg tablet 4 mg PO QHS 09/24/22 [History Last Taken Unknown] levothyroxine 150 mcg tablet 150 mcg PO DAILY@0600 #30 tabs 09/27/22 [Rx Last Taken Unknown] Allergy/AdvReac Type Severity Reaction Status Date / Time No Known Allergies Allergy Verified 11/15/22 17:09 Family History Mother Heart disease Hypertension Diabetes Father Prostate cancer Surgical History H/O cataract removal with insertion of prosthetic lens History of cholecystectomy History of surgery on lower extremity Social History housing: snf Smoking Status: Never smoker alcohol intake: never substance use type: does not use ROS ROS ED ROS Narrative Cough. Green sputum. Shortness of breath. Review of Systems ROS Unobtainable: Denies due to encephalopathy Constitutional Constitutional ED: Denies chills or fever(s) Eyes Eyes: Denies blurry vision ENT ENT ED: Denies ear pain Cardiovascular Cardiovascular: Denies chest pain Respiratory/Chest Respiratory/Chest: Reports cough, dyspnea and sputum Gastrointestinal Gastrointestinal: Denies abdominal pain, diarrhea, nausea or vomiting Genitourinary Genitourinary ED: Denies dysuria or hematuria Musculoskeletal Musculoskeletal: Denies arthralgias or back pain Integumentary Denies abscess Neurologic Neurologic: Denies headache(s) Psychiatric Psychiatric: Denies anxiety or depression Endocrine Endocrinology: Denies cold intolerance Hematologic/Lymphatic Hematologic/Lymphatic: Denies easy bleeding Allergic/Immunologic Allergic/Immunologic ED: Denies mouth swelling EXAM Physical Exam Narrative Exam Narrative: She is very female no acute distress. Vital signs stable afebrile. Her pulse ox is only 89% on room air. On 2 L she is in the low to mid 90s. She is in no distress. H EENT exam unremarkable. Neck nontender. Lungs coarse breath sounds bilaterally. No rhonchi. No wheezing. No rales. Heart regular rate and rhythm rate about 80 no murmur. Chest wall nontender. Abdomen soft nontender. Moving all 4 extremities. Calves are nontender without edema or cords. Neurologically she is awake alert with no focal motor deficits. Const Vital Signs: 11/15/22 17:11 11/15/22 17:16 11/15/22 18:38 Temperature 98.4 F Temperature Source Temporal Pulse Rate 82 Respiratory Rate 20 H Respiratory Effort Short of Breath Respiratory Depth Normal Respiratory Pattern Normal Blood Pressure 133/69 H Blood Pressure Mean 90 Pulse Ox 89 Oxygen Delivery Method Room Air Nasal Cannula Nasal Cannula Oxygen Flow Rate (L/min) 2 2 11/15/22 19:12 11/15/22 19:09 11/15/22 20:03 Temperature 98.4 F Temperature Source Temporal Pulse Rate 88 86 85 Respiratory Rate 18 16 18 Respiratory Effort Respiratory Depth Respiratory Pattern Normal Blood Pressure 119/74 119/66 Blood Pressure Mean 89 83 Pulse Ox 95 95 Oxygen Delivery Method Room Air Room Air Oxygen Flow Rate (L/min) Positive well nourished, well developed and obese; Negative for cachectic, contractures or unkempt General Appearance ED: well developed and NAD; Negative for unkempt, cachectic, contractures or pallor Nutritional Appearance: obese; Negative for cachectic HEENT Reports moist mucous membranes; Denies dry mucous membranes atraumatic; Negative for trauma or tenderness Mouth ED: No dry mucous membranes Mouth: No dry mucous membranes Eyes PERRL and EOMs intact bilaterally General Eye ED: Negative for pale conjunctiva or scleral icterus Neck no lymphadenopathy, supple, no meningeal signs and no JVD General: Negative for tenderness Chest Wall Chest: Negative for other Resp normal respiratory effort and clear to auscultation bilaterally Resp Narrative: Coarse breath sounds. Wet sounding cough. Effort and Inspection: Negative for pain with movement Auscultation: Negative for rales, rhonchi or wheezes Cardio regular rate, regular rhythm, S1 normal heart sound, S2 normal heart sound and no murmurs Rate: Negative for bradycardia or tachycardic Rhythm: Negative for abnormal rhythm GI non-tender, non-distended and no masses Inspection: Negative for other Auscultation: normoactive bowel sounds Palpation: soft; Negative for tender or guarding Back/Spine no CVA tenderness and normal to inspection General Back: Negative for CVA tenderness or tenderness Extremity normal to inspection General Extremety ED: Negative for edema or tenderness General Extremity: Negative for edema Neuro oriented x3 and CN's II-XII intact bilaterally Sensorium / Orientation: alert, oriented to person, oriented to place and oriented to time; Negative for orientation impaired, confused, lethargic or stuporous Speech: speech normal Motor Exam: strength 5/5 throughout Psych mental status grossly normal Appearance: Negative for unkempt Attitude: No agitated Mood & Affect: Negative for depressed, anxious or tearful Thought Process: normal thought process Skin no wounds General Skin Exam: Negative for jaundice or pallor Lesions: no lesions Rashes: no rashes Trauma: Negative for abrasion or laceration MDM MDM MDM Narrative Medical decision making narrative: 62-year-old female hypoxic on room air and 88 to 89% range. Placed on O2 sats are in the low to mid 90s with oxygen. Clinically sounds like either a URI, bronchitis or pneumonia. Chest x-ray and labs are being obtained. Nurses put in protocols. I do not think this is cardiac etiology and I do not think it is an AR. She has no history of DVT or PE or recent risk factors. She will be given a DuoNeb aerosol due to her hypoxia. Repeat exam patient has not had any significant change. Clinically she either has bronchitis or pneumonia its not obvious on the chest x-ray. She remains normotensive. She will be started on Rocephin and Zithromax. Given a liter normal saline due to her renal insufficiency. Have already spoken to the hospitalist and she will be admitted to the medical unit on his service. History & Record Review Discussion w/independent historian: Patient Lab Data Attestation: I reviewed the patient's lab results. Lab results narrative: CBC shows a white count of 15.8. H&H 9.8 and 31.2. Platelets 294. Electrolytes show sodium 134. Gap of 5. BUN of 25 creatinine 1.52. Glucose of 187. Troponin normal at 10. Chest x-ray chronic changes no acute process. No obvious pneumonia. Patient has a baseline anemia this is along her normal blood counts. She has a baseline mild renal insufficiency. Labs: Laboratory Results - last 24 hr 11/15/22 11/15/22 18:49 18:49 WBC 15.8 H RBC 3.72 L Hgb 9.8 L Hct 31.2 L MCV 83.9 MCH 26.3 L MCHC 31.4 L RDW Std Deviation 44.7 H RDW Coeff of Vlad 14.5 Plt Count 294 MPV 10.3 Immature Gran % (Auto) 1.900 H Neut % (Auto) 76.3 H Lymph % (Auto) 8.0 L [place] % (Auto) 11.7 H Eos % (Auto) 1.8 Baso % (Auto) 0.3 Absolute Neuts (auto) 12.0 H Absolute Lymphs (auto) 1.26 Nucleated RBC % 0 Differential Comment SEE COMMENT Diff Path Review May foll Platelet Estimate ADEQUATE RBC Morphology N CHROM Hypochromasia RARE Anisocytosis RARE Microcytosis RARE Sodium 134 L Potassium 4.1 Chloride 102 Carbon Dioxide 27.0 Anion Gap 5 BUN 25 H Creatinine 1.52 H Estim Creat Clear Calc 32.29 Est GFR (MDRD) Af Amer 44 L Est GFR (MDRD) Non-Af 37 L BUN/Creatinine Ratio 16.4 Glucose 187 H Calcium 8.9 Troponin I High Sens 10 Radiography Chest X-Ray - ED: 1 View, Read by ED Physician, Normal, Heart, Lungs, Mediastinum, Bony Structures, No Acute Disease and Chronic Changes Diagnostic Testing: Clinical Impression(s) from Imaging Studies Chest X-Ray 11/15/22 19:00 IMPRESSION: There has been no change in the appearance of the chest since the prior study. Electronically Signed: Vivek Hughes MD at 19:29 EDT Reading Location ID and State: [facility] [place] / [place] , Service support , Chest x-ray, portable, single view, interpreted by myself and radiologist shows no acute process. Normal cardiac silhouette. No pneumonia. No failure. No effusions. Rhythm Strip Rhythm Strip: Sinus Rhythm Rate: 83 Ectopy: None EKG Initial EKG: Attestation: I personally reviewed and interpreted this EKG as follows: Interpretation: Sinus Rhythm and No Acute Injury Pattern Comments: Normal sinus rhythm rate 83 no acute signs of AR or ischemia. Unchanged from prior EKG from September 24. Prior EKG tracings: available for review Prior: Unchanged Differential Diagnosis Chest pain/SOB: pneumonia Management Discussion w/another healthcare provider: Hospitalist Discharge Plan Triage Chief Complaint: Shortness of Breath ED Provider: Jose Marroquin Dx/Rx/DC Orders Clinical Impression: Acute dyspnea, Hypoxia, Acute respiratory infection, History of diabetes mellitus, History of renal insufficiency Prescriptions: No Action insulin glargine 100 unit/mL Solution 45 unit SUBCUT QHS atorvastatin 10 mg Tablet 10 mg PO DAILY potassium chloride 10 mEq Tablet Extended Release 10 meq PO DAILY metoclopramide HCl 5 mg Tablet 5 mg PO BID pantoprazole 40 mg Tablet,Delayed Release (Dr/Ec) 40 mg PO DAILY gabapentin 100 mg Capsule 200 mg PO BID gabapentin 100 mg Capsule 200 mg PO QHS ergocalciferol (vitamin D2) [Drisdol] 1,250 mcg (50,000 unit) Capsule 1,250 mcg PO QWEEK ropinirole 4 mg Tablet 4 mg PO QHS Rx Instructions: administer 1-3 hours before bedtime insulin lispro 100 unit/mL Cartridge Rx Instructions: Per sliding scale escitalopram oxalate 10 mg Tablet 10 mg PO DAILY fenofibrate nanocrystallized [Tricor] 48 mg Tablet 48 mg PO DAILY levothyroxine 150 mcg Tablet 150 mcg PO DAILY@0600 Qty: 30 2RF Primary Care Provider: Lulu Luna HVAC REFRIGERATION TECHNICIAN Referrals: Loco Swann MD [Non-Staff] - Disposition Disposition: Acute Care Hospital [facility]
[2022-11-15 18:57] LABS: Absolute Lymphocyte Count 1.26 X10^3/uL (0.83-4.51); Basophil# 0.04 X10^3/uL; Basophil% 0.3 % (0-1); Eosinophil# 0.28 X10^3/uL; Eosinophils% 1.8 % (0-5); Hematocrit 31.2 % (37-47); Hemoglobin 9.8 g/dL (12.0-15.0); Lymphocyte # 1.26 X10^3/ul (0.83-4.51); Mean Corp Hgb Conc 31.4 g/dL (32-36); Mean Corpuscular Hgb 26.3 pg (27.0-32.0); Mean Corpuscular Volume 83.9 fL (81-99); Mean Platelet Vol. 10.3 fl (6.2-12.0); Monocyte# 1.85 X10^3/uL; Monocyte% 11.7 % (0-10); NRBC Flagged by Analyzer 0 % (0-5); Neutrophil # 12.02 X10^3/uL (2.7-7.7); Neutrophil % 76.3 % (47-70); POSITIVE DIFFERENTIAL YES; Platelet Count 294 K/mm3 (150-450); RBC Distribution Width CV 14.5 % (11.6-14.6); RBC Distribution Width SD 44.7 fl (35.1-43.9); Red Blood Count 3.72 M/mm3 (4.2-5.4); White Blood Count 15.8 K/mm3 (4.4-11.0)
--- NOTE | 2022-11-15 19:00 | RAD_ITS ---
STUDY: XR Chest 1 View 11/15/2022 6:57 PM REASON FOR EXAM: Female, 62 years old. CHEST PAIN SOB COMPARISON: 09/24/2022 TECHNIQUE: XR Chest 1 View FINDINGS: There is no demonstrated pleural abnormality. There is bilateral infiltrate / atelectasis. Enlarged heart size. Normal mediastinum. Normal rebekah. Prominent appearing increased interstitial lung markings. Normal visualized pulmonary arteries. There is atherosclerotic calcification of the aortic arch with tortuosity. There are diffuse degenerative changes of the visualized thoracic spine. There is degenerative osteoarthritis of the bilateral shoulders. There is no demonstrated abnormality of the visualized soft tissue structures of the upper abdomen. RAD/Chest 1 View (Portable) IMPRESSION: There has been no change in the appearance of the chest since the prior study. Electronically Signed: Vivek Hughes MD at 19:29 EDT ,
[2022-11-15] MEDS: Ipratropium/Albuterol Sulfate 3 ML AMPUL.NEB INHALATION (19:11)
[2022-11-15 19:12] LABS: Differential Indicated SCAN CRITERIA MET
[2022-11-15 19:21] LABS: Anion Gap 5 (5-15); BUN 25 mg/dL (7-18); BUN/Creat Ratio 16.4 RATIO (10-20); Calcium,Total 8.9 mg/dL (8.5-10.1); Chloride 102 mmol/L (98-107); Creatinine, Serum 1.52 mg/dL (0.55-1.02); EST Glomerular Filtration Rate 37 mL/min (>60); Est Glom Filt Rate - Afr Amer 44 mL/min (>60); Estimated Creatinine Clearance 32.29 ml/min; Glucose 187 mg/dL (74-106); Potassium 4.1 mmol/L (3.5-5.1); Sodium Level 134 mmol/L (136-145); Troponin-I HS 10 pg/mL (3.0-54.0)
[2022-11-15 19:33] LABS: Platelet Estimate ADEQUATE (ADEQ); Red Cell Morphology N CHROM NORMAL (NORM C&C)
[2022-11-15 19:34] LABS: Anisocytosis RARE; Hypochromasia RARE; Microcytosis RARE
[2022-11-15] MEDS: 0.9% Normal Saline 1,000 ML 999 ML IV (20:12)
--- NOTE | 2022-11-15 20:22 | HP.PCM.HOS_ITS ---
HPI - General General Date of Admission: 11/15/22 Date of Service: 11/15/22 Chief Complaint: Shortness of breath HPI Narrative TOBIN BIGGS, is a 62 F with a significant history of hypertension, hypothyroidism on Synthroid; diabetes mellitus, and obstructive sleep apnea (does not use her CPAP because she feels uncomfortable using it); and who lives at [facility] presenting to the emergency department with 1 week history of shortness of breath. Associated with her symptoms is productive cough of green sputum which has been worsening. Further she reports nightly subjective fever and chills. She reports anorexia. She reports watery eyes going on for about 2 weeks. Patient does not use baseline oxygen at home. At the emergency department he also saturation was found to be 88% on room air. Patient denies ever receiving a COVID-19 vaccination. [facility] Medical History Anxiety and depression Chronic acquired lymphedema Chronic anemia CKD (chronic kidney disease), stage III Diabetes mellitus, type 2 HLD (hyperlipidemia) HTN (hypertension) Hypothyroidism Hypoxia Morbid obesity SACHIN (obstructive sleep apnea) Home Medications atorvastatin 10 mg tablet 10 mg PO DAILY 09/24/22 [History Last Taken 11/15/22] ergocalciferol (vitamin D2) 1,250 mcg (50,000 unit) capsule (Drisdol) 1,250 mcg PO QWEEK 09/24/22 [History Last Taken Unknown] escitalopram oxalate 10 mg tablet 10 mg PO DAILY 09/24/22 [History Last Taken 11/15/22] fenofibrate nanocrystallized 48 mg tablet (Tricor) 48 mg PO DAILY 09/24/22 [History Last Taken 11/15/22] gabapentin 100 mg capsule 200 mg PO BID 09/24/22 [History Last Taken 11/15/22] gabapentin 100 mg capsule 200 mg PO QHS 09/24/22 [History Last Taken 11/14/22] insulin glargine 100 unit/mL subcutaneous solution 45 unit subcut QHS 09/24/22 [History Last Taken 11/14/22] insulin lispro 100 unit/mL subcutaneous cartridge See Rx Instructions .Route .COMPLEX 09/24/22 [History Last Taken 11/14/22] metoclopramide HCl 5 mg tablet 5 mg PO BID 09/24/22 [History Last Taken 11/15/22] pantoprazole 40 mg tablet,delayed release 40 mg PO DAILY 09/24/22 [History Last Taken 11/15/22] potassium chloride 10 mEq tablet,extended release 10 meq PO DAILY 09/24/22 [History Last Taken 11/15/22] ropinirole 4 mg tablet 4 mg PO QHS 09/24/22 [History Last Taken 11/14/22] levothyroxine 150 mcg tablet 150 mcg PO DAILY@0600 #30 tabs 09/27/22 [Rx Last Taken 11/14/22] Allergy/AdvReac Type Severity Reaction Status Date / Time No Known Allergies Allergy Verified 11/15/22 17:09 Family History Mother Heart disease Hypertension Diabetes Father Prostate cancer Surgical History H/O cataract removal with insertion of prosthetic lens History of cholecystectomy History of surgery on lower extremity Social History housing: detention Smoking Status: Never smoker alcohol intake: never substance use type: does not use ROS ROS Narrative Pertinent positives and pertinent negatives as noted in HPI. All other systems were reviewed and are negative Vital Signs Vital Signs Vital Signs: 11/15/22 17:11 11/15/22 17:16 11/15/22 18:38 Temperature 98.4 F Temperature Source Temporal Pulse Rate 82 Respiratory Rate 20 H Respiratory Effort Short of Breath Respiratory Depth Normal Respiratory Pattern Normal Blood Pressure 133/69 H Blood Pressure Mean 90 Pulse Ox 89 Oxygen Delivery Method Room Air Nasal Cannula Nasal Cannula Oxygen Flow Rate (L/min) 2 2 11/15/22 19:12 11/15/22 19:09 11/15/22 20:03 Temperature 98.4 F Temperature Source Temporal Pulse Rate 88 86 85 Respiratory Rate 18 16 18 Respiratory Effort Respiratory Depth Respiratory Pattern Normal Blood Pressure 119/74 119/66 Blood Pressure Mean 89 83 Pulse Ox 95 95 Oxygen Delivery Method Room Air Room Air Oxygen Flow Rate (L/min) Weight Weight: 78.2 kg Body Mass Index (BMI) 28.7 Physical Exam Narrative Physical exam: General: Well-nourished, well-developed. Head: Normocephalic, atraumatic, no tenderness Eyes: Mild injection of bilateral conjunctiva; vision is grossly intact. ENT, no trauma, no rhinorrhea Neck: Nontender, No thyromegaly. CVS: Regular rate and rhythm. S1-S2 present. No murmur, gallop or rub. Respiratory : Diminished, chest wall nontender Abdomen: Soft, nontender, nondistended, normal bowel sounds, no masses : Deferred Back: Nontender, no CVA tenderness, no midline spinal tenderness Extremities: Decreased range of motion of left leg compared to right leg (reports chronic). Peeling of skin of left heel and scabbed wound of the left hip Skin: Normal color, no trauma, abrasions Neuro: Alert, oriented, cranial nerves II through XII grossly intact. Psychiatry: Normal mood. Normal affect. Not depressed. Not anxious. Results Lab / Micro Data Result Diagrams: 11/15/22 18:49 11/15/22 18:49 Labs: Laboratory Results - last 24 hr 11/15/22 18:49: WBC 15.8 H, RBC 3.72 L, Hgb 9.8 L, Hct 31.2 L, MCV 83.9, MCH 26.3 L, MCHC 31.4 L, RDW Std Deviation 44.7 H, RDW Coeff of Vlad 14.5, Plt Count 294, MPV 10.3, Immature Gran % (Auto) 1.900 H, Neut % (Auto) 76.3 H, Lymph % (Auto) 8.0 L, [place] % (Auto) 11.7 H, Eos % (Auto) 1.8, Baso % (Auto) 0.3, Absolute Neuts (auto) 12.0 H, Absolute Lymphs (auto) 1.26, Nucleated RBC % 0, Differential Comment SEE COMMENT, Diff Path Review May foll, Platelet Estimate ADEQUATE, RBC Morphology N CHROM, Hypochromasia RARE, Anisocytosis RARE, Microcytosis RARE 11/15/22 18:49: Sodium 134 L, Potassium 4.1, Chloride 102, Carbon Dioxide 27.0, Anion Gap 5, BUN 25 H, Creatinine 1.52 H, Estim Creat Clear Calc 32.29, Est GFR (MDRD) Af Amer 44 L, Est GFR (MDRD) Non-Af 37 L, BUN/Creatinine Ratio 16.4, Glucose 187 H, Calcium 8.9, Troponin I High Sens 10 Micro: Microbiology 11/15/22 18:54 Nasal Secretion SARS-CoV-2 & FLU Antigen (Rapid) - Final Rhythm Strip Rhythm Strip: Sinus Rhythm Rate: 83 Ectopy: None Radiology Impression Chest X-Ray 11/15/22 19:00 IMPRESSION: There has been no change in the appearance of the chest since the prior study. Electronically Signed: Vivek Hughes MD at 19:29 EDT , Assessment & Plan Assessment/Plan (1) Acute dyspnea: (2) Hypoxia: (3) Acute respiratory infection: (4) Diabetes mellitus with diabetic polyneuropathy: (5) Type 2 diabetes mellitus with foot ulcer: (6) Morbid (severe) obesity due to excess calories: PLAN: Plan Acute bronchitis with hypoxia Etiology unclear. This could be viral or bacterial. Cannot rule out pneumonia. Interpretation of chest x-ray by radiology includes: Bilateral infiltrates/atelectasis. Hospitalist interpretation of chest x-ray: I agree with radiology interpretation. Echocardiogram on 09/25/2022 showed estimated EF of 65% and diastolic dysfunction. With leukocytosis and greenish sputum likely infectious. CBC of 15,800, trend. Review of records show the patient was admitted to the hospital on 09/24/2022 and discharged on 09/27/2022. On last admission among others patient was treated for hypoxia that was attributed to pneumonia as there were scattered bilateral groundglass opacities with septal thickening. On this presentation patient was started on azithromycin and ceftriaxone the ED, continue. The patient received 60 mg of IV Solu-Medrol at the emergency department. P rednisone 40 mg daily ordered. Mucinex ordered. Diabetes mellitus with polyneuropathy Patient with mild hyperglycemia on presentation Home basal insulin de-escalated in the hospital settings. Monitor Accu-Cheks Correction scale insulin ordered. GASTON on CKD stage III Creatinine of 1.52 on presentation. Baseline creatinine of around 1.2. BUN is 25. BUN over creatinine is 16.4. Likely ATN. CKD secondary to diabetic nephropathy. Gentle IV hydration. Avoid nephrotoxins. De-escalate as home dose of gabapentin. Trend BMP. Chronic anemia Stable Trend CBC Hypertension Blood pressure is stable Trend blood pressure . DVT prophylaxis Subcutaneous Lovenox ordered. Charges/Coding Visit Charges Inpatient E&M: 06772 Init Hosp L3
[2022-11-15] MEDS: Ceftriaxone 1 GM/50 ML BAG IV (20:38)
[2022-11-15] MEDS: 0.9% Normal Saline 1,000 ML 75 ML IV (21:26)
[2022-11-15] MEDS: Gabapentin 100 MG Capsule PO (21:52)
[2022-11-15] MEDS: Pramipexole Di-HCl 0.5 MG Tablet 1.5 MG PO (21:52)
[2022-11-15] MEDS: Atorvastatin Calcium 10 MG Tablet PO (21:52)
[2022-11-15] MEDS: guaiFENesin 1,200 MG Tablet 1200 MG PO (21:52)
[2022-11-15] MEDS: Metoclopramide 5 MG TABLET PO (21:52)
[2022-11-15] MEDS: Insulin Glargine-YFGN 100 UNIT/ML Pen 30 UNIT SC (21:53)
[2022-11-15] MEDS: Insulin Lispro 100 UNIT/ML INSULN.PEN SC (21:53)
[2022-11-15 22:00] LABS: Bedside Glucose 183 mg/dL (74-106)
[2022-11-15 23:52] LABS: Procalcitonin 0.18 ng/mL (0.00-0.09)
[2022-11-16] VITALS (9 sets, daily range): BP systolic 112–148; BP diastolic 53–92; PULSE 70–92; RESP 16–20; TEMP 35.9–36.4; O2SAT 94–99
[2022-11-16] MEDS: Levothyroxine 150 MCG Tablet PO (05:44)
[2022-11-16] MEDS: Gabapentin 100 MG Capsule PO ×3 (05:44→20:17)
[2022-11-16] MEDS: Ipratropium/Albuterol Sulfate 3 ML AMPUL.NEB INHALATION ×4 (06:08→19:23)
[2022-11-16] MEDS: guaiFENesin 10 ML UDC (200MG/10ML) 15 ML PO ×3 (06:17→19:37)
[2022-11-16] MEDS: Acetaminophen 325 MG Tablet 650 MG PO (06:31)
[2022-11-16] MEDS: 0.9% Normal Saline 1,000 ML 75 ML IV ×2 (06:33→19:39)
[2022-11-16 06:51] LABS: Bedside Glucose 125 mg/dL (74-106)
[2022-11-16 08:13] LABS: Absolute Neutrophil Count 8.4 X10^3/uL (2.0-7.7); Basophil# 0.03 X10^3/uL; Basophil% 0.3 % (0-1); Eosinophil# 0.23 X10^3/uL; Hematocrit 27.5 % (37-47); Hemoglobin 8.5 g/dL (12.0-15.0); Lymphocyte % 11.3 % (19-41); Mean Corp Hgb Conc 30.9 g/dL (32-36); Mean Corpuscular Hgb 26.2 pg (27.0-32.0); Mean Corpuscular Volume 84.9 fL (81-99); Mean Platelet Vol. 10.4 fl (6.2-12.0); Monocyte# 1.41 X10^3/uL; Monocyte% 12.2 % (0-10); NRBC Flagged by Analyzer 0 % (0-5); Neutrophil # 8.38 X10^3/uL (2.7-7.7); Neutrophil % 72.5 % (47-70); Platelet Count 261 K/mm3 (150-450); RBC Distribution Width CV 14.6 % (11.6-14.6); RBC Distribution Width SD 45.1 fl (35.1-43.9); Red Blood Count 3.24 M/mm3 (4.2-5.4); White Blood Count 11.6 K/mm3 (4.4-11.0)
[2022-11-16 08:31] LABS: Anion Gap 3 (5-15); BUN 29 mg/dL (7-18); Calcium,Total 8.3 mg/dL (8.5-10.1); Chloride 105 mmol/L (98-107); Creatinine, Serum 1.53 mg/dL (0.55-1.02); EST Glomerular Filtration Rate 36 mL/min (>60); Est Glom Filt Rate - Afr Amer 44 mL/min (>60); Estimated Creatinine Clearance 33.43 ml/min; Glucose 118 mg/dL (74-106); Potassium 3.9 mmol/L (3.5-5.1); Sodium Level 134 mmol/L (136-145)
[2022-11-16] MEDS: predniSONE 20 MG Tablet 40 MG PO (09:25)
[2022-11-16] MEDS: Enoxaparin 40 MG/0.4 ML Syringe SC (09:25)
[2022-11-16] MEDS: guaiFENesin 1,200 MG Tablet 1200 MG PO ×2 (09:25→20:17)
[2022-11-16] MEDS: Potassium Chloride Oral Tablet 10 MEQ PO (09:25)
[2022-11-16] MEDS: Fenofibrate 48 MG Tablet PO (09:25)
[2022-11-16] MEDS: Escitalopram Oxalate 10 MG Tablet PO (09:25)
[2022-11-16] MEDS: Metoclopramide 5 MG TABLET PO ×2 (09:26→20:17)
[2022-11-16] MEDS: Pantoprazole Sodium 40 MG Tablet PO (09:26)
--- NOTE | 2022-11-16 10:39 | CASEMGMT ---
Social Work Pt is here from [facility]. SW spoke w/jill, it is anticipated pt will be able to return to [facility] at discharge. SW met w/pt, confirmed she is here from [facility]. She states she is doing well enough to return when medically ready. Pt states uses a walker at [facility]. She receives help with meals, medications, cleaning, and bathing. She also has home health care but does not remember the agency. They are helping her with wound care. Pt confirms was recently at [facility] but does feel after this hospitalization she can return to [facility]. Pt has a C-clementina but does not wear it as it makes her feel claustrophobic. She does not have oxygen at [facility]. Pt does not have a preference for [facility], as long as they take her insurance. We discussed options, pt agreeable to a referral to [facility]. SW inquired about getting back to [facility] when discharged, she states will need a wheelchair van ride. SW also asked pt about medical POA. She states she is working on it and is going to make her brother her POA. She states she does have two children but one is in rehab and the other does not speak to her. SW encouraged her to complete the POA papers as without them, if decisions would need made were she not able, it would go to the children. Pt states understanding. SW called [facility], spoke w/Sarah, let her know that pt may be ready to return on the weekend. She states that pt has [facility]. SW sent updates to [facility] via [employer]. SW faxed updates to [facility] as they do not use [facility]. Green sheet on chart for pt to return to [facility], w/HHC, and possibly O2. No further needs anticipated at this time. ARIAN Philippe
--- NOTE | 2022-11-16 12:12 | PN.HOSP_ITS ---
Subjective Subjective Does not feel much better than when she came in, oxygen requirements remain at around 2 L Objective Data Objective Data Vital Signs: Vital Signs Temp Pulse Resp BP Pulse Ox O2 Del Method O2 Flow Rate 97.2 F L 92 18 112/58 L 99 Nasal Cannula 2 11/16/22 09:19 11/16/22 11:55 11/16/22 11:55 11/16/22 09:19 11/16/22 09:19 11/16/22 09:19 11/16/22 10:03 Oxygen Flow Rate (L/min) 2 Oxygen Delivery Method Nasal Cannula Weight: 254 lb 3.088 oz Body Mass Index (BMI) 42.3 Intake & Output: Intake and Output for Last 24 Hours 11/15/22 11/16/22 11/17/22 03:59 03:59 03:59 Intake Total 1405 / 1405 1000 / 1000 Balance 1405 / 1405 1000 / 1000 Lab / Micro Data Result Diagrams: 11/16/22 07:40 11/16/22 07:40 Labs: Laboratory Results - last 24 hr 11/15/22 18:49: WBC 15.8 H, RBC 3.72 L, Hgb 9.8 L, Hct 31.2 L, MCV 83.9, MCH 26.3 L, MCHC 31.4 L, RDW Std Deviation 44.7 H, RDW Coeff of Vlad 14.5, Plt Count 294, MPV 10.3, Immature Gran % (Auto) 1.900 H, Neut % (Auto) 76.3 H, Lymph % (Auto) 8.0 L, [place] % (Auto) 11.7 H, Eos % (Auto) 1.8, Baso % (Auto) 0.3, Absolute Neuts (auto) 12.0 H, Absolute Lymphs (auto) 1.26, Nucleated RBC % 0, Differential Comment SEE COMMENT, Diff Path Review May foll, Platelet Estimate ADEQUATE, RBC Morphology N CHROM, Hypochromasia RARE, Anisocytosis RARE, Microcytosis RARE 11/15/22 18:49: Sodium 134 L, Potassium 4.1, Chloride 102, Carbon Dioxide 27.0, Anion Gap 5, BUN 25 H, Creatinine 1.52 H, Estim Creat Clear Calc 32.29, Est GFR (MDRD) Af Amer 44 L, Est GFR (MDRD) Non-Af 37 L, BUN/Creatinine Ratio 16.4, Glucose 187 H, Calcium 8.9, Troponin I High Sens 10 11/15/22 21:41: POC Glucose 183 H 11/15/22 22:20: Procalcitonin 0.18 H 11/16/22 06:19: POC Glucose 125 H 11/16/22 07:40: WBC 11.6 H, RBC 3.24 L, Hgb 8.5 L, Hct 27.5 L, MCV 84.9, MCH 26.2 L, MCHC 30.9 L, RDW Std Deviation 45.1 H, RDW Coeff of Vlad 14.6, Plt Count 261, MPV 10.4, Immature Gran % (Auto) 1.700 H, Neut % (Auto) 72.5 H, Lymph % (Auto) 11.3 L, [place] % (Auto) 12.2 H, Eos % (Auto) 2.0, Baso % (Auto) 0.3, Absolute Neuts (auto) 8.4 H, Absolute Lymphs (auto) 1.30, Nucleated RBC % 0 11/16/22 07:40: Sodium 134 L, Potassium 3.9, Chloride 105, Carbon Dioxide 26.0, Anion Gap 3 L, BUN 29 H, Creatinine 1.53 H, Estim Creat Clear Calc 33.43, Est GFR (MDRD) Af Amer 44 L, Est GFR (MDRD) Non-Af 36 L, BUN/Creatinine Ratio 19.0, Glucose 118 H, Calcium 8.3 L Micro: Microbiology 11/15/22 23:30 Mucosa - Nasopharyngeal Respiratory Panel (PCR) - Final 11/15/22 01:54 Urine, Clean Catch Streptococcus pneumoniae Antigen (M - Final 11/15/22 01:54 Urine, Clean Catch Legionella Antigen - Final 11/15/22 18:54 Nasal Secretion SARS-CoV-2 & FLU Antigen (Rapid) - Final Radiography Diagnostic Testing: Radiology Impression Chest X-Ray 11/15/22 19:00 IMPRESSION: There has been no change in the appearance of the chest since the prior study. Electronically Signed: Vivek Hughes MD at 19:29 EDT , Rhythm Strip Rhythm Strip: Sinus Rhythm Rate: 83 Ectopy: None Physical Exam Narrative General: Alert, Oriented x3, Cooperative, No apparent distress HEENT: Atraumatic, PERRLA, EOMI, Normocephalic Oral: Moist Mucosa Neck: Supple, No JVD Lungs: Diminished, Normal air movement, mild rhonchi, No wheeze, No rales Cardiovascular: Regular rate, Regular Rhythm, Normal S1, Normal S2, No murmurs Abdomen: Soft, Non Tender, Non-Distended, No Hepato-splenomegaly Extremities: No edema, Capillary Refill Less than 3 Seconds Skin: No rashes, No breakdown Musculoskeletal: No Tenderness to Palpation of Joints or Extremities Neurological: Cranial nerves II-XII grossly intact, Motor Exam 5/5 strength throughout, Sensory exam intact to light touch and pain Psych/Mental Status: Flat Assessment & Plan Assessment/Plan (1) Acute dyspnea: (2) Hypoxia: (3) Acute respiratory infection: (4) Diabetes mellitus with diabetic polyneuropathy: (5) Type 2 diabetes mellitus with foot ulcer: (6) Morbid (severe) obesity due to excess calories: PLAN: Plan 1. Acute hypoxic hypoxia due to bronchitis versus bacterial pneumonia ? Viral etiology has been ruled out with a respiratory panel and a negative COVID test ? Sputum cultures pending ? We will continue with respiratory antibiotics ? Continue daily steroids ? Continue with Mucinex 2. HTN/HLD ? Blood pressures are stable ? Echo on 323 with an EF of 65% and diastolic dysfunction ? Continue with her home medications 3. DM2 with neuropathy/CKD 3 ? We will continue with her home insulin ? Accu-Cheks ACHS ? Scale insulin ? Make adjustments as necessary ? Continue with gabapentin ? Baseline creatinine is around 1.2 currently 1.5 we will continue to monitor 4. Chronic normocytic hypochromic anemia ? Iron studies at the end of September did not show an iron deficiency anemia ? Continue with outpatient follow-up DVT: Megannox Charges/Coding Visit Charges Inpatient E&M: 72634 Subs Hosp L2
[2022-11-16] MEDS: Insulin Lispro 100 UNIT/ML INSULN.PEN SC ×3 (12:23→20:12)
[2022-11-16 13:31] LABS: Bedside Glucose 179 mg/dL (74-106)
[2022-11-16 17:56] LABS: Bedside Glucose 267 mg/dL (74-106)
[2022-11-16] MEDS: Insulin Glargine-YFGN 100 UNIT/ML Pen 30 UNIT SC (20:13)
[2022-11-16] MEDS: Pramipexole Di-HCl 0.5 MG Tablet 1.5 MG PO (20:17)
[2022-11-16] MEDS: Atorvastatin Calcium 10 MG Tablet PO (20:17)
[2022-11-16 20:56] LABS: Bedside Glucose 320 mg/dL (74-106)
[2022-11-17] VITALS (12 sets, daily range): BP systolic 127–157; BP diastolic 64–91; PULSE 75–88; RESP 8–18; TEMP 36.3–36.9; O2SAT 91–98
[2022-11-17] MEDS: guaiFENesin 10 ML UDC (200MG/10ML) 15 ML PO ×4 (01:52→20:29)
[2022-11-17] MEDS: Ondansetron 4 MG/2 ML Vial IV (03:36)
[2022-11-17] MEDS: 0.9% Saline Lock 10 ML Syringe IV (03:36)
[2022-11-17] MEDS: Levothyroxine 150 MCG Tablet PO (05:02)
[2022-11-17] MEDS: Gabapentin 100 MG Capsule PO ×3 (05:03→21:06)
[2022-11-17 06:00] LABS: Absolute Lymphocyte Count 1.33 X10^3/uL (0.83-4.51); Absolute Neutrophil Count 8.3 X10^3/uL (2.0-7.7); Basophil# 0.04 X10^3/uL; Basophil% 0.4 % (0-1); Eosinophil# 0.12 X10^3/uL; Eosinophils% 1.1 % (0-5); Hematocrit 28.3 % (37-47); Hemoglobin 8.9 g/dL (12.0-15.0); Lymphocyte # 1.33 X10^3/ul (0.83-4.51); Lymphocyte % 11.9 % (19-41); Mean Corp Hgb Conc 31.4 g/dL (32-36); Mean Corpuscular Hgb 26.2 pg (27.0-32.0); Mean Corpuscular Volume 83.2 fL (81-99); Mean Platelet Vol. 10.4 fl (6.2-12.0); Monocyte# 0.94 X10^3/uL; Monocyte% 8.4 % (0-10); NRBC Flagged by Analyzer 0 % (0-5); Neutrophil # 8.29 X10^3/uL (2.7-7.7); Neutrophil % 74.1 % (47-70); Platelet Count 307 K/mm3 (150-450); RBC Distribution Width CV 14.4 % (11.6-14.6); White Blood Count 11.2 K/mm3 (4.4-11.0)
[2022-11-17 06:31] LABS: Anion Gap 6 (5-15); BUN 36 mg/dL (7-18); BUN/Creat Ratio 23.8 RATIO (10-20); Calcium,Total 8.4 mg/dL (8.5-10.1); Chloride 103 mmol/L (98-107); Creatinine, Serum 1.51 mg/dL (0.55-1.02); EST Glomerular Filtration Rate 37 mL/min (>60); Est Glom Filt Rate - Afr Amer 45 mL/min (>60); Estimated Creatinine Clearance 33.87 ml/min; Glucose 170 mg/dL (74-106); Sodium Level 136 mmol/L (136-145)
[2022-11-17 06:56] LABS: Bedside Glucose 142 mg/dL (74-106)
[2022-11-17] MEDS: Ipratropium/Albuterol Sulfate 3 ML AMPUL.NEB INHALATION ×4 (07:31→20:21)
[2022-11-17] MEDS: Potassium Chloride Oral Tablet 10 MEQ PO (08:13)
[2022-11-17] MEDS: Enoxaparin 40 MG/0.4 ML Syringe SC (08:13)
[2022-11-17] MEDS: Pantoprazole Sodium 40 MG Tablet PO (08:13)
[2022-11-17] MEDS: guaiFENesin 1,200 MG Tablet 1200 MG PO ×2 (08:14→21:09)
[2022-11-17] MEDS: Metoclopramide 5 MG TABLET PO ×2 (08:14→21:10)
[2022-11-17] MEDS: predniSONE 20 MG Tablet 40 MG PO (08:14)
[2022-11-17] MEDS: Fenofibrate 48 MG Tablet PO (08:14)
[2022-11-17] MEDS: Escitalopram Oxalate 10 MG Tablet PO (08:14)
--- NOTE | 2022-11-17 10:48 | PN.HOSP_ITS ---
Subjective Subjective Feels slightly better today than she did yesterday. Still having a productive cough Objective Data Objective Data Vital Signs: Vital Signs Temp Pulse Resp BP Pulse Ox O2 Del Method O2 Flow Rate 97.7 F L 80 16 127/64 H 97 Room Air 3 11/17/22 08:09 11/17/22 08:09 11/17/22 08:09 11/17/22 08:09 11/17/22 08:09 11/17/22 08:30 11/17/22 09:37 Oxygen Flow Rate (L/min) 3 Oxygen Delivery Method Room Air Weight: 254 lb 3.088 oz Body Mass Index (BMI) 42.3 Intake & Output: Intake and Output for Last 24 Hours 11/16/22 11/17/22 11/18/22 03:59 03:59 03:59 Intake Total 1405 / 1405 3336.25 / 3336.25 Balance 1405 / 1405 3336.25 / 3336.25 Lab / Micro Data Result Diagrams: 11/17/22 05:30 11/17/22 05:30 Labs: Laboratory Results - last 24 hr 11/16/22 12:21: POC Glucose 179 H 11/16/22 17:03: POC Glucose 267 H 11/16/22 20:10: POC Glucose 320 H 11/17/22 05:30: WBC 11.2 H, RBC 3.40 L, Hgb 8.9 L, Hct 28.3 L, MCV 83.2, MCH 26.2 L, MCHC 31.4 L, RDW Std Deviation 43.0, RDW Coeff of Vlad 14.4, Plt Count 307, MPV 10.4, Immature Gran % (Auto) 4.100 H, Neut % (Auto) 74.1 H, Lymph % (Auto) 11.9 L, [place] % (Auto) 8.4, Eos % (Auto) 1.1, Baso % (Auto) 0.4, Absolute Neuts (auto) 8.3 H, Absolute Lymphs (auto) 1.33, Nucleated RBC % 0 11/17/22 05:30: Sodium 136, Potassium 4.0, Chloride 103, Carbon Dioxide 27.0, Anion Gap 6, BUN 36 H, Creatinine 1.51 H, Estim Creat Clear Calc 33.87, Est GFR (MDRD) Af Amer 45 L, Est GFR (MDRD) Non-Af 37 L, BUN/Creatinine Ratio 23.8 H, Glucose 170 H, Calcium 8.4 L 11/17/22 06:26: POC Glucose 142 H Micro: Microbiology 11/16/22 01:54 Sputum, Expectorated/Coughed Gram Stain - Final 11/16/22 01:54 Sputum, Expectorated/Coughed Respiratory Culture - Preliminary Staphylococcus species 11/15/22 23:30 Mucosa - Nasopharyngeal Respiratory Panel (PCR) - Final 11/15/22 01:54 Urine, Clean Catch Streptococcus pneumoniae Antigen (M - Final 11/15/22 01:54 Urine, Clean Catch Legionella Antigen - Final 11/15/22 18:54 Nasal Secretion SARS-CoV-2 & FLU Antigen (Rapid) - Final Rhythm Strip Rhythm Strip: Sinus Rhythm Rate: 83 Ectopy: None Physical Exam Narrative General: Alert, Oriented x3, Cooperative, No apparent distress HEENT: Atraumatic, PERRLA, EOMI, Normocephalic Oral: Moist Mucosa Neck: Supple, No JVD Lungs: Diminished, Normal air movement, mild rhonchi, No wheeze, No rales Cardiovascular: Regular rate, Regular Rhythm, Normal S1, Normal S2, No murmurs Abdomen: Soft, Non Tender, Non-Distended, No Hepato-splenomegaly Extremities: No edema, Capillary Refill Less than 3 Seconds Skin: No rashes, No breakdown Musculoskeletal: No Tenderness to Palpation of Joints or Extremities Neurological: Cranial nerves II-XII grossly intact, Motor Exam 5/5 strength throughout, Sensory exam intact to light touch and pain Psych/Mental Status: Flat Assessment & Plan Assessment/Plan (1) Acute dyspnea: (2) Hypoxia: (3) Acute respiratory infection: (4) Diabetes mellitus with diabetic polyneuropathy: (5) Type 2 diabetes mellitus with foot ulcer: (6) Morbid (severe) obesity due to excess calories: PLAN: Plan 1. Acute hypoxia due to bronchitis versus bacterial pneumonia ? Viral etiology has been ruled out with a respiratory panel and a negative COVID test ? Sputum cultures pending, so far growing Staph aureus ? We will continue with respiratory antibiotics ? Continue daily steroids ? Continue with Mucinex 2. HTN/HLD ? Blood pressures are stable ? Echo on 09/24/2022 with an EF of 65% and diastolic dysfunction ? Continue with her home medications 3. DM2 with neuropathy/CKD 3 ? We will continue with her home insulin ? Accu-Cheks ACHS ? Sliding scale insulin ? Make adjustments as necessary ? Continue with gabapentin ? Baseline creatinine is around 1.2 currently 1.5 we will continue to monitor 4. Chronic normocytic hypochromic anemia ? Iron studies at the end of September did not show an iron deficiency anemia ? Continue with outpatient follow-up DVT: Lovenox Charges/Coding Visit Charges Inpatient E&M: 34640 Subs Hosp L2
[2022-11-17] MEDS: Insulin Lispro 100 UNIT/ML INSULN.PEN SC ×3 (11:53→21:07)
[2022-11-17] MEDS: 0.9% Normal Saline 1,000 ML 75 ML IV (11:53)
[2022-11-17 14:01] LABS: Bedside Glucose 202 mg/dL (74-106)
[2022-11-17 19:11] LABS: Bedside Glucose 349 mg/dL (74-106)
[2022-11-17] MEDS: Insulin Glargine-YFGN 100 UNIT/ML Pen 30 UNIT SC (21:08)
[2022-11-17] MEDS: Pramipexole Di-HCl 0.5 MG Tablet 1.5 MG PO (21:09)
[2022-11-17] MEDS: Atorvastatin Calcium 10 MG Tablet PO (21:09)
[2022-11-17 21:21] LABS: Bedside Glucose 335 mg/dL (74-106)
[2022-11-18] VITALS (11 sets, daily range): BP systolic 153–165; BP diastolic 71–92; PULSE 75–88; RESP 16–20; TEMP 36.3–36.5; O2SAT 86–100
[2022-11-18] MEDS: 0.9% Normal Saline 1,000 ML 75 ML IV (02:37)
[2022-11-18] MEDS: guaiFENesin 10 ML UDC (200MG/10ML) 15 ML PO ×2 (05:22→14:24)
[2022-11-18] MEDS: Levothyroxine 150 MCG Tablet PO (05:25)
[2022-11-18] MEDS: Gabapentin 100 MG Capsule PO ×2 (05:25→14:22)
[2022-11-18 06:59] LABS: Hematocrit 27.8 % (37-47); Hemoglobin 8.6 g/dL (12.0-15.0); Mean Corp Hgb Conc 30.9 g/dL (32-36); Mean Corpuscular Hgb 26.1 pg (27.0-32.0); Mean Corpuscular Volume 84.2 fL (81-99); Mean Platelet Vol. 10.3 fl (6.2-12.0); POSITIVE COUNT YES; POSITIVE MORPHOLOGY YES; Platelet Count 317 K/mm3 (150-450); RBC Distribution Width CV 14.3 % (11.6-14.6); White Blood Count 10.9 K/mm3 (4.4-11.0)
[2022-11-18] MEDS: Ipratropium/Albuterol Sulfate 3 ML AMPUL.NEB INHALATION ×3 (07:04→14:49)
[2022-11-18 07:05] LABS: Bedside Glucose 140 mg/dL (74-106)
[2022-11-18 07:08] LABS: Differential Indicated MANUAL DIFF
[2022-11-18 07:34] LABS: Anion Gap 5 (5-15); BUN 35 mg/dL (7-18); BUN/Creat Ratio 29.9 RATIO (10-20); Calcium,Total 8.8 mg/dL (8.5-10.1); Chloride 106 mmol/L (98-107); Creatinine, Serum 1.17 mg/dL (0.55-1.02); EST Glomerular Filtration Rate 49 mL/min (>60); Est Glom Filt Rate - Afr Amer 60 mL/min (>60); Estimated Creatinine Clearance 43.71 ml/min; Glucose 148 mg/dL (74-106); Sodium Level 137 mmol/L (136-145)
[2022-11-18] MEDS: guaiFENesin 1,200 MG Tablet 1200 MG PO (08:42)
[2022-11-18] MEDS: predniSONE 20 MG Tablet 40 MG PO (08:42)
[2022-11-18] MEDS: Escitalopram Oxalate 10 MG Tablet PO (08:42)
[2022-11-18] MEDS: Fenofibrate 48 MG Tablet PO (08:42)
[2022-11-18] MEDS: Metoclopramide 5 MG TABLET PO (08:42)
[2022-11-18] MEDS: Enoxaparin 40 MG/0.4 ML Syringe SC (08:42)
[2022-11-18] MEDS: Pantoprazole Sodium 40 MG Tablet PO (08:42)
[2022-11-18] MEDS: Potassium Chloride Oral Tablet 10 MEQ PO (08:42)
--- NOTE | 2022-11-18 08:51 | PN.HOSP_ITS ---
Reason for Visit Reason for Visit: Diagnoses Type 2 diabetes mellitus with diabetic polyneuropathy (11/15/22) Type 2 diabetes mellitus with foot ulcer (11/15/22) Morbid (severe) obesity due to excess calories (11/15/22) Unspecified acute lower respiratory infection (11/15/22) Non-pressure chronic ulcer of other part of unspecified foot with unspecified severity (11/15/22) Dyspnea, unspecified (11/15/22) Hypoxemia (11/15/22) Objective Data Objective Data Vital Signs: Vital Signs Temp Pulse Resp BP Pulse Ox O2 Del Method O2 Flow Rate 97.3 F L 84 16 153/84 H 86 Nasal Cannula 2 11/18/22 08:30 11/18/22 08:30 11/18/22 08:30 11/18/22 08:30 11/18/22 08:49 11/18/22 08:30 11/18/22 08:30 Oxygen Flow Rate (L/min) 2 Oxygen Delivery Method Nasal Cannula Weight: 115.3 kg Body Mass Index (BMI) 42.3 Intake & Output: Intake and Output for Last 24 Hours 11/16/22 11/17/22 11/18/22 23:59 23:59 23:59 Intake Total 3236.25 / 3336.25 2863.75 / 2863.75 522.5 / 522.5 Balance 3236.25 / 3336.25 2863.75 / 2863.75 522.5 / 522.5 Lab / Micro Data Result Diagrams: 11/18/22 06:39 11/18/22 06:39 Labs: Laboratory Results - last 24 hr 11/17/22 11:52: POC Glucose 202 H 11/17/22 16:57: POC Glucose 349 H 11/17/22 20:56: POC Glucose 335 H 11/18/22 06:33: POC Glucose 140 H 11/18/22 06:39: WBC 10.9, RBC 3.30 L, Hgb 8.6 L, Hct 27.8 L, MCV 84.2, MCH 26.1 L, MCHC 30.9 L, RDW Std Deviation 44.0 H, RDW Coeff of Vlad 14.3, Plt Count 317, MPV 10.3, Neut % (Auto) Not Reportable 11/18/22 06:39: Sodium 137, Potassium 4.0, Chloride 106, Carbon Dioxide 26.0, Anion Gap 5, BUN 35 H, Creatinine 1.17 H, Estim Creat Clear Calc 43.71, Est GFR (MDRD) Af Amer 60, Est GFR (MDRD) Non-Af 49 L, BUN/Creatinine Ratio 29.9 H, Glucose 148 H, Calcium 8.8 Micro: Microbiology 11/16/22 01:54 Sputum, Expectorated/Coughed Gram Stain - Final 11/16/22 01:54 Sputum, Expectorated/Coughed Respiratory Culture - Final Staphylococcus aureus 11/15/22 23:30 Mucosa - Nasopharyngeal Respiratory Panel (PCR) - Final 11/15/22 01:54 Urine, Clean Catch Streptococcus pneumoniae Antigen (M - Final 11/15/22 01:54 Urine, Clean Catch Legionella Antigen - Final 11/15/22 18:54 Nasal Secretion SARS-CoV-2 & FLU Antigen (Rapid) - Final Rhythm Strip Rhythm Strip: Sinus Rhythm Rate: 83 Ectopy: None Physical Exam Narrative General: Alert, Oriented x3, Cooperative, No apparent distress HEENT: Atraumatic, PERRLA, EOMI, Normocephalic Oral: Moist Mucosa Neck: Supple, No JVD Lungs: Diminished, Normal air movement, mild rhonchi, No wheeze, No rales Cardiovascular: Regular rate, Regular Rhythm, Normal S1, Normal S2, No murmurs Abdomen: Soft, Non Tender, Non-Distended, No Hepato-splenomegaly Extremities: No edema, Capillary Refill Less than 3 Seconds Skin: No rashes, No breakdown Musculoskeletal: No Tenderness to Palpation of Joints or Extremities Neurological: Cranial nerves II-XII grossly intact, Motor Exam 5/5 strength throughout, Sensory exam intact to light touch and pain Psych/Mental Status: Flat Assessment & Plan Assessment/Plan (1) Acute dyspnea: (2) Hypoxia: (3) Acute respiratory infection: (4) Diabetes mellitus with diabetic polyneuropathy: (5) Type 2 diabetes mellitus with foot ulcer: (6) Morbid (severe) obesity due to excess calories: PLAN: Plan 1. Acute hypoxia due to bronchitis versus bacterial pneumonia ? Viral etiology has been ruled out with a respiratory panel and a negative COVID test ? Sputum cultures pending, so far growing Staph aureus ? We will continue with respiratory antibiotics ? Continue daily steroids ? Continue with Mucinex 2. HTN/HLD ? Blood pressures are stable ? Echo on 09/24/2022 with an EF of 65% and diastolic dysfunction ? Continue with her home medications 3. DM2 with neuropathy/CKD 3 ? We will continue with her home insulin ? Accu-Cheks ACHS ? Sliding scale insulin ? Make adjustments as necessary ? Continue with gabapentin ? Baseline creatinine is around 1.2 currently 1.5 we will continue to monitor 4. Chronic normocytic hypochromic anemia ? Iron studies at the end of September did not show an iron deficiency anemia ? Continue with outpatient follow-up DVT: Lovenox
--- NOTE | 2022-11-18 08:51 | PCM.PN.HOSP ---
Reason for Visit Reason for Visit: Diagnoses Type 2 diabetes mellitus with diabetic polyneuropathy (11/15/22) Type 2 diabetes mellitus with foot ulcer (11/15/22) Morbid (severe) obesity due to excess calories (11/15/22) Unspecified acute lower respiratory infection (11/15/22) Non-pressure chronic ulcer of other part of unspecified foot with unspecified severity (11/15/22) Dyspnea, unspecified (11/15/22) Hypoxemia (11/15/22) Subjective Subjective Patient is a 62-year-old lady admitted with shortness of breath Objective Data Objective Data Vital Signs: Vital Signs Temp Pulse Resp BP Pulse Ox O2 Del Method O2 Flow Rate 97.3 F L 84 16 153/84 H 86 Nasal Cannula 2 11/18/22 08:30 11/18/22 08:30 11/18/22 08:30 11/18/22 08:30 11/18/22 08:49 11/18/22 08:30 11/18/22 08:30 Oxygen Flow Rate (L/min) 2 Oxygen Delivery Method Nasal Cannula Weight: 115.3 kg Body Mass Index (BMI) 42.3 Intake & Output: Intake and Output for Last 24 Hours 11/16/22 11/17/22 11/18/22 23:59 23:59 23:59 Intake Total 3236.25 / 3336.25 2863.75 / 2863.75 522.5 / 522.5 Balance 3236.25 / 3336.25 2863.75 / 2863.75 522.5 / 522.5 Lab / Micro Data Result Diagrams: 11/18/22 06:39 11/18/22 06:39 Labs: Laboratory Results - last 24 hr 11/17/22 11:52: POC Glucose 202 H 11/17/22 16:57: POC Glucose 349 H 11/17/22 20:56: POC Glucose 335 H 11/18/22 06:33: POC Glucose 140 H 11/18/22 06:39: WBC 10.9, RBC 3.30 L, Hgb 8.6 L, Hct 27.8 L, MCV 84.2, MCH 26.1 L, MCHC 30.9 L, RDW Std Deviation 44.0 H, RDW Coeff of Vlad 14.3, Plt Count 317, MPV 10.3, Neut % (Auto) Not Reportable 11/18/22 06:39: Sodium 137, Potassium 4.0, Chloride 106, Carbon Dioxide 26.0, Anion Gap 5, BUN 35 H, Creatinine 1.17 H, Estim Creat Clear Calc 43.71, Est GFR (MDRD) Af Amer 60, Est GFR (MDRD) Non-Af 49 L, BUN/Creatinine Ratio 29.9 H, Glucose 148 H, Calcium 8.8 Micro: Microbiology 11/16/22 01:54 Sputum, Expectorated/Coughed Gram Stain - Final 11/16/22 01:54 Sputum, Expectorated/Coughed Respiratory Culture - Final Staphylococcus aureus 11/15/22 23:30 Mucosa - Nasopharyngeal Respiratory Panel (PCR) - Final 11/15/22 01:54 Urine, Clean Catch Streptococcus pneumoniae Antigen (M - Final 11/15/22 01:54 Urine, Clean Catch Legionella Antigen - Final 11/15/22 18:54 Nasal Secretion SARS-CoV-2 & FLU Antigen (Rapid) - Final Rhythm Strip Rhythm Strip: Sinus Rhythm Rate: 83 Ectopy: None Physical Exam Narrative GENERAL: cooperative HEENT: Atraumatic; normocephalic EYES; Anicteric, Normal Conjunctiva NECK; supple, normal thyroid, RESPIRATORY: Diminished to auscultation CARDIOVASCULAR: Regular S1 S2, GI: soft, normoactive bowel sounds, : No Renal angle tenderness; EXTREMITIES: No edema, no clubbing, MUSCULOSKELETAL: no muscle wasting NEURO: Awake; no lateralizing signs. SKIN: No Rash PSYCH; Flat affect Assessment & Plan Assessment/Plan (1) Acute dyspnea: (2) Hypoxia: (3) Acute respiratory infection: (4) Diabetes mellitus with diabetic polyneuropathy: (5) Type 2 diabetes mellitus with foot ulcer: (6) Morbid (severe) obesity due to excess calories: PLAN: Plan Patient is a 62-year-old lady admitted with shortness of breath 1. Community-acquired pneumonia with methicillin sensitive Staph aureus ? Patient was initially managed with ceftriaxone and azithromycin switched to Levaquin on discharge 2. Acute hypoxia ? Secondary to pneumonia ? Patient was assessed for home oxygen prior to discharge 3. Diabetes mellitus type II -patient's oral hypoglycemics held. Placed on long acting insulin, Accu-Cheks a.c. and at bedtime and covered with sliding scale insulin 4. Hypertension - Blood pressure controlled, home medications continued with dose adjustment as needed 5. Chronic congestive heart failure with preserved ejection fraction ? Echo on 09/24/2022 demonstrated EF of 65% 6. Dyslipidemia -Patient is on statin therapy, continued at home dose 7. Anemia - Secondary to chronic disorder monitoring H&H and transfuse if patient becomes symptomatic or hemoglobin falls below 7 8. DVT prophylaxis - On enoxaparin Time spent in the patient's overall evaluation,decision-making process, review of diagnostic data, adjustment of management, discussion with other providers, nursing nursing and ancillary staff involved in patient's care documentation, 35 Minutes Charges/Coding Visit Charges Inpatient E&M: 94423 Subs Hosp L2
[2022-11-18 09:11] LABS: Eosinophil 4 % (0-5); Lymphocyte 20 % (19-41); Monocyte 6 % (0-10); Myelocyte 1 % (0-0); Neutrophil-Segmented 69 % (47-70); Total Cells Counted 100 (MANUAL DIFF)
[2022-11-18 09:12] LABS: Platelet Estimate ADEQUATE (ADEQ); Red Cell Morphology NORM C+C NORMAL (NORM C&C)
[2022-11-18 09:27] LABS: Absolute Lymphocyte Count 2.18 X10^3/uL (0.83-4.51); Absolute Neutrophil Count 7.5 X10^3/uL (2.0-7.7)
--- NOTE | 2022-11-18 11:25 | DS.PCM_ITS ---
Providers Date of Admission: 11/15/22 Date of Discharge: 11/18/22 Primary Care Physician: KELVIN Garcia Reason For Visit: ACUTE BRONCHITIS, POSSIBLE PNEUMONIA Diagnosis Discharge Diagnosis (1) Acute dyspnea: Status: Acute Code(s): R06.00 - Dyspnea, unspecified (2) Hypoxia: Status: Acute Code(s): R09.02 - Hypoxemia (3) Acute respiratory infection: Status: Acute Code(s): J22 - Unspecified acute lower respiratory infection (4) Diabetes mellitus with diabetic polyneuropathy: Status: Acute Code(s): E11.42 - Type 2 diabetes mellitus with diabetic polyneuropathy (5) Type 2 diabetes mellitus with foot ulcer: Status: Acute Code(s): E11.621 - Type 2 diabetes mellitus with foot ulcer; L97.509 - Non-pressure chronic ulcer of other part of unspecified foot with unspecified severity (6) Morbid (severe) obesity due to excess calories: Status: Acute Code(s): E66.01 - Morbid (severe) obesity due to excess calories Plan Patient is a 62-year-old lady admitted with shortness of breath 1. 1. Acute hypoxia due to bronchitis versus bacterial pneumonia ? Viral etiology has been ruled out with a respiratory panel and a negative COVID test ? Sputum cultures pending, so far growing Staph aureus ? We will continue with respiratory antibiotics ? Continue daily steroids ? Continue with Mucinex 2. HTN/HLD ? Blood pressures are stable ? Echo on 09/24/2022 with an EF of 65% and diastolic dysfunction ? Continue with her home medications 3. DM2 with neuropathy/CKD 3 ? We will continue with her home insulin ? Accu-Cheks ACHS ? Sliding scale insulin ? Make adjustments as necessary ? Continue with gabapentin ? Baseline creatinine is around 1.2 currently 1.5 we will continue to monitor 4. Chronic normocytic hypochromic anemia ? Iron studies at the end of September did not show an iron deficiency anemia ? Continue with outpatient follow-up DVT: Lovenox Medications at Discharge Home Medications atorvastatin 10 mg tablet 10 mg PO DAILY 09/24/22 ergocalciferol (vitamin D2) 1,250 mcg (50,000 unit) capsule (Drisdol) 1,250 mcg PO QWEEK 09/24/22 escitalopram oxalate 10 mg tablet 10 mg PO DAILY 09/24/22 fenofibrate nanocrystallized 48 mg tablet (Tricor) 48 mg PO DAILY 09/24/22 gabapentin 100 mg capsule 200 mg PO BID 09/24/22 gabapentin 100 mg capsule 200 mg PO QHS 09/24/22 insulin glargine 100 unit/mL subcutaneous solution 45 unit subcut QHS 09/24/22 insulin lispro 100 unit/mL subcutaneous cartridge See Rx Instructions .Route .COMPLEX 09/24/22 metoclopramide HCl 5 mg tablet 5 mg PO BID 09/24/22 pantoprazole 40 mg tablet,delayed release 40 mg PO DAILY 09/24/22 potassium chloride 10 mEq tablet,extended release 10 meq PO DAILY 09/24/22 ropinirole 4 mg tablet 4 mg PO QHS 09/24/22 levothyroxine 150 mcg tablet 150 mcg PO DAILY@0600 #30 tabs 09/27/22 azithromycin 500 mg tablet (Zithromax) 500 mg PO DAILY 3 days #3 tabs 11/18/22 cefdinir 300 mg capsule 300 mg PO BID #10 caps 11/18/22 guaifenesin 1,200 mg tablet, extended release 12 hr (Mucus Relief ER) 1,200 mg PO BID 10 days #20 tabs 11/18/22 prednisone 20 mg tablet 40 mg PO BREAKFAST 5 days #10 tabs 11/18/22 Hospital Course Summary of Care Provided Minutes Spent on Discharge: 35 Physical Exam Narrative GENERAL: cooperative HEENT: Atraumatic; normocephalic EYES; Anicteric, Normal Conjunctiva NECK; supple, normal thyroid, RESPIRATORY: Diminished to auscultation CARDIOVASCULAR: Regular S1 S2, GI: soft, normoactive bowel sounds, : No Renal angle tenderness; EXTREMITIES: No edema, no clubbing, MUSCULOSKELETAL: no muscle wasting NEURO: Awake; no lateralizing signs. SKIN: No Rash PSYCH; Flat affect Weight / BMI Weight Weight: 115.3 kg Body Mass Index (BMI) 42.3 ABG / Lab / Microbiology Data Result Diagrams: 11/18/22 06:39 11/18/22 06:39 Laboratory: Laboratory Results - last 24 hr 11/17/22 11:52: POC Glucose 202 H 11/17/22 16:57: POC Glucose 349 H 11/17/22 20:56: POC Glucose 335 H 11/18/22 06:33: POC Glucose 140 H 11/18/22 06:39: WBC 10.9, RBC 3.30 L, Hgb 8.6 L, Hct 27.8 L, MCV 84.2, MCH 26.1 L, MCHC 30.9 L, RDW Std Deviation 44.0 H, RDW Coeff of Vlad 14.3, Plt Count 317, MPV 10.3, Neut % (Auto) Not Reportable, Absolute Neuts (auto) 7.5, Absolute Lymphs (auto) 2.18, Total Counted 100, Neutrophils % (Manual) 69, Lymphocytes % (Manual) 20, Monocytes % (Manual) 6, Eosinophils % (Manual) 4, Myelocytes % 1 H, Diff Path Review November, Platelet Estimate ADEQUATE, RBC Morphology NORM C+C 11/18/22 06:39: Sodium 137, Potassium 4.0, Chloride 106, Carbon Dioxide 26.0, Anion Gap 5, BUN 35 H, Creatinine 1.17 H, Estim Creat Clear Calc 43.71, Est GFR (MDRD) Af Amer 60, Est GFR (MDRD) Non-Af 49 L, BUN/Creatinine Ratio 29.9 H, Glucose 148 H, Calcium 8.8 Microbiology: Microbiology 11/16/22 01:54 Sputum, Expectorated/Coughed Gram Stain - Final 11/16/22 01:54 Sputum, Expectorated/Coughed Respiratory Culture - Final Staphylococcus aureus 11/15/22 23:30 Mucosa - Nasopharyngeal Respiratory Panel (PCR) - Final 11/15/22 01:54 Urine, Clean Catch Streptococcus pneumoniae Antigen (M - Final 11/15/22 01:54 Urine, Clean Catch Legionella Antigen - Final 11/15/22 18:54 Nasal Secretion SARS-CoV-2 & FLU Antigen (Rapid) - Final D/C Instructions Discharge Diet: 1800 Calorie Control Diet Discharge Activity: Return to Normal Activity Call your doctor if you observe: Fever of 101 or Higher, Shortness of breath, Fainting spells and Chest pain Meaningful Use Info Meaningful Use Diagnoses (Choose all that apply): None applicable Discharge Plan Admission Admit Date/Time: 11/15/22 20:05 Attending Provider: Justin Centeno Primary Care Provider: Lulu Luna MAINTENANCE ELECTRICIAN Consulting Providers: Gaurav Winters ; Bobby White Discharge Orders/Prescriptions Prescriptions: New prednisone 20 mg Tablet 40 mg PO BREAKFAST 5 Days Qty: 10 0RF Mucus Relief ER 1,200 mg Tablet Extended Release 12hr 1,200 mg PO BID 10 Days Qty: 20 0RF azithromycin [Zithromax] 500 mg tablet 500 mg PO DAILY 3 Days Qty: 3 0RF cefdinir 300 mg capsule 300 mg PO BID Qty: 10 0RF Continued insulin glargine 100 unit/mL Solution 45 unit SUBCUT QHS atorvastatin 10 mg Tablet 10 mg PO DAILY potassium chloride 10 mEq Tablet Extended Release 10 meq PO DAILY metoclopramide HCl 5 mg Tablet 5 mg PO BID pantoprazole 40 mg Tablet,Delayed Release (Dr/Ec) 40 mg PO DAILY gabapentin 100 mg Capsule 200 mg PO BID gabapentin 100 mg Capsule 200 mg PO QHS ergocalciferol (vitamin D2) [Drisdol] 1,250 mcg (50,000 unit) Capsule 1,250 mcg PO QWEEK ropinirole 4 mg Tablet 4 mg PO QHS Rx Instructions: administer 1-3 hours before bedtime insulin lispro 100 unit/mL Cartridge See Rx Instructions .ROUTE .COMPLEX Rx Instructions: Per sliding scale escitalopram oxalate 10 mg Tablet 10 mg PO DAILY fenofibrate nanocrystallized [Tricor] 48 mg Tablet 48 mg PO DAILY levothyroxine 150 mcg Tablet 150 mcg PO DAILY@0600 Qty: 30 2RF Referrals / Follow Up: Loco Swann MD [Non-Staff] - Lulu Luna MAINTENANCE ELECTRICIAN, MAINTENANCE ELECTRICIAN-C [Primary Care Provider] - Disposition Disposition (needs filled in before D/C Order can be placed): Home, Self Care Charges/Coding Visit Charges Inpatient E&M: 35865 Disch Hosp >30min
--- NOTE | 2022-11-18 11:47 | PHA.DC.MR ---
Pharmacy Service has performed discharge medication reconciliation for this patient. The patient's discharge medication list was reviewed for discrepancies and discrepancies were resolved. Home Medications atorvastatin 10 mg tablet 10 mg PO DAILY 09/24/22 escitalopram oxalate 10 mg tablet 10 mg PO DAILY 09/24/22 fenofibrate nanocrystallized 48 mg tablet (Tricor) 48 mg PO DAILY 09/24/22 gabapentin 100 mg capsule 200 mg PO BID 09/24/22 gabapentin 100 mg capsule 200 mg PO QHS 09/24/22 insulin glargine 100 unit/mL subcutaneous solution 45 unit subcut QHS 09/24/22 insulin lispro 100 unit/mL subcutaneous cartridge See Rx Instructions .Route .COMPLEX 09/24/22 metoclopramide HCl 5 mg tablet 5 mg PO BID 09/24/22 pantoprazole 40 mg tablet,delayed release 40 mg PO DAILY 09/24/22 potassium chloride 10 mEq tablet,extended release 10 meq PO DAILY 09/24/22 ropinirole 4 mg tablet 4 mg PO QHS 09/24/22 levothyroxine 150 mcg tablet 150 mcg PO DAILY@0600 #30 tabs 09/27/22 guaifenesin 1,200 mg tablet, extended release 12 hr (Mucus Relief ER) 1,200 mg PO BID 10 days #20 tabs 11/18/22 levofloxacin 750 mg tablet 750 mg PO DAILY #7 tabs 11/18/22 prednisone 20 mg tablet 40 mg PO BREAKFAST 5 days #10 tabs 11/18/22
--- NOTE | 2022-11-18 12:04 | CASEMGMT ---
CLEM MELARA notified that patient will need home oxygen at discharge. CLEM MELARA received script for home oxygen. Referral sent to [facility] [place] [facility] via [facility], patient's preferred DME agency. CLEM MELARA updated SW regarding oxygen setup.
--- NOTE | 2022-11-18 12:22 | CASEMGMT ---
WES called [facility] and spoke with Haily letting her know patient will be returning today. Haily was concerned about patient's ability to return. WES checked with therapy and the MERCHANDISE PRESENTATION MANAGER that works with patient both feel patient can return to [place]. WES called Haily and let her know. WES also let Haily know that patient will need O2 which [facility] is setting up prior to return. WES called [facility] to set up transport as is required by patient's insurance. WES was told they do not provide wheelchairs. WES set up transport trip number [phone]. WES spoke with patient and she cannot get in and out of a car. WES called [facility] and canceled the trip. Varsha Villatoro INTELLIGENCE OPERATIONS SPECIALIST RUBY
[2022-11-18 13:30] LABS: Bedside Glucose 226 mg/dL (74-106)
--- NOTE | 2022-11-18 13:38 | CASEMGMT ---
WES spoke with Director Caterina and she gave permission for SW to arrange transport with [facility]. WES called [facility] and arranged for patient to get picked up 3p via wheelchair van. WES notified RN, patient, and [facility]. WES also faxed d/c instructions to [facility]. Plan: d/c back to [facility] stated they cannot provide a wheelchair so transport was arranged with [facility]. Varsha BELTRAN
[2022-11-19 09:54] LABS: Pathologist Review Reviewed
[2022-11-19 12:54] LABS: Pathologist Review Reviewed
== END 2022-11-18 16:05 | disposition home or self-care (01) | DRG 137 ==
LOC: ED 20:07 → PCU 11-16 01:50
PROVIDERS: Family Medicine; Admitting Provider Hospitalist; Emergency Provider Emergency Medicine; PCP Nurse Practitioner Adult Health; Visit Provider Internal Medicine
DX: J15.211 Pneumonia due to Methicillin susceptible Staphylococcus aureus (principal); L97.509 Non-pressure chronic ulcer of other part of unspecified foot with unspecified severity; D63.8 Anemia in other chronic diseases classified elsewhere; E11.21 Type 2 diabetes mellitus with diabetic nephropathy; E11.22 Type 2 diabetes mellitus with diabetic chronic kidney disease; D50.9 Iron deficiency anemia, unspecified; E11.42 Type 2 diabetes mellitus with diabetic polyneuropathy; I50.32 Chronic diastolic (congestive) heart failure; N18.30 Chronic kidney disease, stage 3 unspecified; E66.01 Morbid (severe) obesity due to excess calories; E11.621 Type 2 diabetes mellitus with foot ulcer; Z79.4 Long term (current) use of insulin; E11.65 Type 2 diabetes mellitus with hyperglycemia; Z68.41 Body mass index [BMI] 40.0-44.9, adult; I12.9 Hypertensive chronic kidney disease with stage 1 through stage 4 chronic kidney disease, or unspecified chronic kidney disease; E78.5 Hyperlipidemia, unspecified; J22 Unspecified acute lower respiratory infection; R09.02 Hypoxemia; Z87.891 Personal history of nicotine dependence
CPT/HCPCS: 11042; 36415; 71045; 80048; 82962; 84145; 84484; 85025; 87070; 87186; 87205; 87428; 87449; 87633; 93005; 94640; 94760; 97110; 97162; 97166; 97530; 97535; 99285; J7030; A4216; J0696; J2405

== ENCOUNTER 2022-12-05 10:24 | Outpatient (RCR) | payer MEDICAID, SELFPAY ==
[2022-11-18 00:11] VITALS: BP 172/80; PULSE 80; RESP 22; TEMP 36.4; BMI 40.4
[2022-12-05 10:36] VITALS: BP 149/69; PULSE 69; TEMP 35.8; BMI 40.4
--- NOTE | 2022-12-05 10:53 | PN.PCM_ITS ---
History of Present Illness Date of Service: 12/05/22 Chief Complaint: Left posterior lateral heel History of Wound: Patient is a 62-year-old female with history of diabetes mellitus type 2 with peripheral polyneuropathy, morbid obesity, chronic lymphedema, SACHIN?noncompliance with CPAP, hypothyroidism, depression and anxiety, and history of incision and drainage of abscess of the left lower extremity performed in [place], [place] where she underwent long-term antibiotics and lengthy hospital stay in July 2022. Patient was recently admitted to [facility] and discharged on 09/27/2022 following episode of shortness of breath and weakness. She is a resident of an assisted living facility. She was referred to the wound care center for a left lateral heel ulceration, likely secondary to pressure. She states the ulcer site is painful. States the ulcer site has only been present for a few weeks. Subjective Subjective This is a 62-year-old female who presents to the wound care center for follow-up of a left plantar lateral heel ulceration.? She has been changing dressings to the site daily.?Feels the wound has healed. Denies constitutional symptoms today.? Denies further complaints today. Objective Data Objective Data Vital Signs: Vital Signs Temp Pulse Resp BP 96.4 F L 69 22 H 149/69 H 12/05/22 10:36 12/05/22 10:36 11/18/22 00:11 12/05/22 10:36 Weight: 109.769 kg Body Mass Index (BMI) 40.4 Physical Exam Const alert, oriented x3, no apparent distress and well nourished General Appearance: cooperative HEENT normocephalic Eyes General Eye: normal appearance of both eyes Neck General: normal visual inspection Lymph Lymphatic: no lymphadenopathy noted and no lymphedema noted Resp normal respiratory effort Cardio regular rate and regular rhythm Extremity normal capillary refill, no calf tenderness and no pedal edema Extremity Narrative: DP and PT pulses weakly palpable secondary to obesity.? Capillary fill time less than 4 seconds to the digits.? Normal temperature gradient noted.? Hair growth absent to the digits Musculoskeletal: Muscle strength 5 of 5 age-appropriate.? Pain to palpation about the ulcerative site of the left heel.? No pain to palpation to bones of the foot or ankle.? Decreased range of motion of the ankle joint with the knee extended without pain or crepitus bilateral.? There is decreased range of motion to the subtalar joint and first metatarsophalangeal joint without pain or crepitus bilateral. Skin no rashes or lesions noted and skin turgor normal Wound Narrative: Left lower extremity: Left plantar posterior heel ulceration has healed. No signs of infection. Neuro moves all extremities Neuro Narrative: Decreased protective sensation noted bilateral consistent with peripheral polyneuropathy Debridement Note Debridement Note No debridement was completed: No debridement was completed today Post-Debridement Measurements and Additional Note: Post-Debridement Measurements/Treatment WC - Nurse 1 - General Ulcer Assessment Start: 12/05/22 10:31 Freq: Status: Active Protocol: CHERRI Activity Type Activity Date Activity User E-sign Co-sign Detail Recorded Client Recorded Date Recorded By Document 12/05/22 10:36 ELI [id number] 12/05/22 10:37 ELI 12/05/22 10:36 WC - Today's Visit Information Type of service Follow-up Visit (Physician/[employer] ) Arrival Mode Wheelchair Patient Identification Verified (Name & Yes ) Patient Requires Transmission-Based No Precautions Safety Precautions NA Height and Weight Body Mass Index (BMI) 40.4 BMI Classification Obese Vital Signs Temperature (97.8 F-99.1 F) 96.4 F L Temperature Source Temporal Pulse Rate (60-100) 69 Pulse Location Monitor Blood Pressure (90/60-120/80) 149/69 H Blood Pressure Mean (mm Hg) 95 Source Monitor History Since Last Visit- (Skip if this is Patient's initial visit) Have you changed medications since your No last visit? Any new allergies or adverse reactions No Had a fall/change in ADL's that may No increase risk of falls Signs or symptoms of abuse and/or No neglect since last visit Have you been in the hospital since your No last visit? Has dressing in place as prescribed Yes Has compression in place as prescribed N/A Has offloadiing in place as prescribed N/A Experienced any changes in pain level or No management Left Footwear Regular Shoe Right Footwear Regular Shoe Pain Scale: 0-10 Numeric Is Patient Pain Free? Yes [facility] - Nurse 1 - General Ulcer Measurement Start: 12/05/22 10:31 Freq: Status: Active Protocol: Activity Type Activity Date Activity User E-sign Co-sign Detail Recorded Client Recorded Date Recorded By Document 12/05/22 10:36 ELI [id number] 12/05/22 10:37 AK 12/05/22 10:36 Wound Center Nurse 1 1-LEFT LATERAL HEEL -Combined with other wound No -Current Size (cm) - Length 0.1 -Current Size (cm) - Width 0.1 -Current Size (cm) - Depth 0.1 -Total Square Cm 0.01 -Date of Last Picture (Recall this 12/05/22 field) -Photo Taken Yes -Tunneling No -Undermining/Tunneling No -Circular Undermining No -Change in Wound Grade/Stage No -Exudate Amt None Present -Granulation Amt None Present (0 %) -Granulation Quality N/A -Slough/Fibrin No -Necrosis Amt None Present (0 %) -Structure Exposed N/A -Texture (Ofelia-wound Skin Appearance) No Abnormality, Assessed -Moisture (Ofelia-wound Skin Appearance) No Abnormality, Assessed -Color (Ofelia-wound Skin Appearance) No Abnormality, Assessed -Temperature (Ofelia-wound Skin No Abnormality Appearance) (Pt Warm) -Tenderness on Palpation (Ofelia-wound No Skin Appearance) -Ulcer Cleansing Rinsed/ Irrigated with Saline -Foul Odor after Cleansing No -Anesthetic Used 5% Lidocaine Gel Assessment/Plan Assessment/Plan (1) Pressure ulcer of left heel, stage 1: CODE(S): L89.621 - Pressure ulcer of left heel, stage 1 (2) Diabetes mellitus with diabetic polyneuropathy: CODE(S): E11.42 - Type 2 diabetes mellitus with diabetic polyneuropathy (3) Type 2 diabetes mellitus with foot ulcer: CODE(S): E11.621 - Type 2 diabetes mellitus with foot ulcer; L97.509 - Non-pressure chronic ulcer of other part of unspecified foot with unspecified severity (4) Lymphedema, not elsewhere classified: CODE(S): I89.0 - Lymphedema, not elsewhere classified (5) Morbid (severe) obesity due to excess calories: CODE(S): E66.01 - Morbid (severe) obesity due to excess calories PLAN: Plan Patient seen and evaluated I reviewed her LEAS performed on 09/24/22.? Arterial study demonstrates triphasic waveforms on Doppler of the PT and DP arteries bilateral.? DORCAS demonstrates noncompressible vessels bilateral DP and PT.? Digital brachial indices 0.79 right and 0.78 left.? Evidence of some arterial occlusive disease secondary to atherosclerosis.? I do not feel vascular status will impede healing. Patient is diabetic with recent A1c of 6.9% on 09/26/2022. She is noted to have plantar lateral heel ulceration to the left foot.? This ulceration has healed today. No signs of infection. In addition to offloading discussed elevating both lower extremities at all times of rest to control edema. Encouraged healthy lifestyle with proper diabetic diet and exercise along with caloric reduction in order to maintain proper blood sugar level/A1c control and for weight loss.? Recommended adequate protein intake to aid in healing.? Recommended Turner supplementation.? Patient seems to have a laissez-faire attitude when it comes to her health.? She states that she does not do much. Discussed the signs and symptoms of infection.? Discussed that if she gets any redness about the ulcerative site that moves up the leg, purulent drainage, increasing foul odor, or if she experiences any fever greater than 101 ?F, nausea, vomiting, or chills that she is to report straight to the ED as these are signs of progressing infection and she should be started on IV antibiotics. The following work up and care recommendations were made: Dressing: None Wash: Soap and water Tissue growth optimization: None Offload: Continue to offload left heel at all times of rest.? Recommend foam waffle boot for continued offloading. Vascular: Weakly palpable pedal pulses on examination.? Recent arterial studies 10/15/2022 demonstrate triphasic waveforms of DP and PT pulses bilateral with noncompressible vessels of the DP and PT bilateral. Edema: Continue to elevate lower extremities at all times of rest, recommend Tubigrip compression stocking. Infection: No signs of infection Pain: She may take [id number] Tylenol for discomfort Host factors: DM type II with peripheral polyneuropathy, hypothyroidism, morbid obesity, chronic lymphedema, depression and anxiety.? These factors impact healing potential and may complicate recovery. At this time she is healed and discharged from the wound care center today. ? I answered all the patient's questions.? To return to the wound healing center as needed or call sooner if the patient has any questions or concerns.
== END 2022-12-18 23:59 | disposition home or self-care (01) ==
LOC: WC 10:24
PROVIDERS: PCP Nurse Practitioner Adult Health; Referring Provider Nurse Practitioner Adult Health; Visit Provider Student in an Organized Health Care Education/Training Program
DX: Z09 Encounter for follow-up examination after completed treatment for conditions other than malignant neoplasm (principal); E11.42 Type 2 diabetes mellitus with diabetic polyneuropathy; E66.01 Morbid (severe) obesity due to excess calories; Z68.41 Body mass index [BMI] 40.0-44.9, adult; E03.9 Hypothyroidism, unspecified; I89.0 Lymphedema, not elsewhere classified; G47.33 Obstructive sleep apnea (adult) (pediatric); F32.A Depression, unspecified; F41.9 Anxiety disorder, unspecified
CPT/HCPCS: 99213; G0463

== ENCOUNTER → 2023-03-25 | Outpatient (CLI) | payer MEDICARE, MEDICAID, SELFPAY ==
--- NOTE | 2023-03-25 10:03 | VDLE_ITS ---
Reason For Study: Bilateral leg pain RIGHT LEFT CFV is compressible, spontaneous, phasic, CFV is compressible, spontaneous, phasic, competent and demonstrates normal competent, and demonstrates normal augmentation. augmentation. FV is compressible, spontaneous, phasic, FV is compressible, spontaneous, phasic, competent and demonstrates normal competent and demonstrates normal augmentation. augmentation. POP V is compressible, spontaneous, phasic, POP V is compressible, spontaneous, phasic, competent and demonstrates normal competent and demonstrates normal augmentation. augmentation. T/P Trunk is compressible. T/P Trunk is compressible. PTV is compressible. PTV is compressible. RT PerV is compressible. LT PerV is compressible. SFJ is competent and measures 0.92 x 1.02 cm. SFJ is competent and measures 0.81 x 0.95 cm. GSV proximal thigh measures 0.39 x 0.38 cm. GSV proximal thigh measures 0.39 x 0.37 cm. GSV at knee measures 0.43 x 0.45 cm. GSV at knee measures 0.20 x 0.21 cm. GSV is competent throughout. GSV is competent throughout. SSV proximal calf is competent and measures SSV proximal calf is competent and measures 0.22 x 0.22 cm. 0.33 x 0.37 cm. ASV distal thigh is INCOMPETENT for greater ASV from SSV mid calf is INCOMPETENT for than 0.5 seconds and measures 0.20 x 0.19 cm. greater than 0.5 seconds and measures 0.28 x ASV from SSV mid calf is INCOMPETENT for 0.30 cm. greater than 0.5 seconds and measures 0.29 x INCOMPETENT outreach coordinator from SSV is noted 15 0.28 cm. cm above medial malleolus. Procedure This is a venous duplex using B-mode, color flow and spectral Doppler. Exam performed in department. VL/Venous Duplex US - Yann Extrem Interpretation Summary Deep veins of the bilateral lower extremities are patent and compressible segme ntally. There is no evidence of bilateral lower extremity deep vein thrombosis. The bilateral great saphenous veins appear patent and compressible segmentally. Positive for reflux in the right thigh accessory saphenous vein and calf access ory saphenous vein Positive for reflux in the left thigh accessory saphenous vein and calf accesso ry saphenous vein Ordering Physician: Court Pat Referring Physician: Lulu Luna Performed By: Connie Avilez RVT
== END | disposition home or self-care (01) ==
PROVIDERS: PCP Nurse Practitioner Adult Health; Referring Provider Physician Assistant; Visit Provider Physician Assistant
DX: M79.604 Pain in right leg (principal); M79.605 Pain in left leg
CPT/HCPCS: 93970

== ENCOUNTER 2023-04-14 16:18 | Inpatient (IN) | payer MEDICARE, MEDICAID, SELFPAY ==
[2023-04-14] VITALS (11 sets, daily range): BP systolic 137–165; BP diastolic 54–86; PULSE 65–70; RESP 8–19; TEMP 35.8–36.4; O2SAT 94–99; BMI 49.4; BMI 48.0
--- NOTE | 2023-04-14 16:24 | EDS_ITS ---
HPI History of Present Illness Chief Complaint: Shortness of Breath [facility] Medical History Anxiety and depression Chronic acquired lymphedema Chronic anemia CKD (chronic kidney disease), stage III Diabetes mellitus, type 2 HLD (hyperlipidemia) HTN (hypertension) Hypothyroidism Hypoxia Morbid obesity SACHIN (obstructive sleep apnea) Home Medications atorvastatin 10 mg tablet 10 mg PO DAILY 09/24/22 [History Last Taken 11/15/22] escitalopram oxalate 10 mg tablet 10 mg PO DAILY 09/24/22 [History Last Taken 11/15/22] fenofibrate nanocrystallized 48 mg tablet (Tricor) 48 mg PO DAILY 09/24/22 [History Last Taken 11/15/22] pantoprazole 40 mg tablet,delayed release 40 mg PO DAILY 09/24/22 [History Last Taken 11/15/22] levofloxacin 750 mg tablet 750 mg PO DAILY #7 tabs 11/18/22 [Rx Last Taken Unknown] aspirin 81 mg tablet,delayed release (Adult Low Dose Aspirin) 81 mg PO DAILY 03/05/23 [History Last Taken Unknown] exenatide microspheres 2 mg subcutaneous extended release suspension mg subcut 03/05/23 [History Last Taken Unknown] furosemide 20 mg tablet (Lasix) 20 mg PO DAILY 03/05/23 [History Last Taken Unknown] gabapentin 100 mg capsule 200 mg PO TID 03/05/23 [History Last Taken Unknown] glipizide 10 mg tablet 10 mg PO BID 03/05/23 [History Last Taken Unknown] insulin glargine 100 unit/mL subcutaneous solution 45 unit subcut QHS 03/05/23 [History Last Taken Unknown] levothyroxine 150 mcg tablet 125 mcg PO DAILY@0600 03/05/23 [History Last Taken Unknown] metformin 1,000 mg tablet 1,000 mg PO BID 03/05/23 [History Last Taken Unknown] ropinirole 4 mg tablet 4 mg PO QHS 03/05/23 [History Last Taken Unknown] sitagliptin phosphate 100 mg tablet (Januvia) 100 mg PO DAILY 03/05/23 [History Last Taken Unknown] triamcinolone acetonide 0.1 % topical cream 1 applic topical TID 03/05/23 [History Last Taken Unknown] dulaglutide 0.75 mg/0.5 mL subcutaneous pen injector (Trulicity) mg subcut 04/14/23 [History Last Taken Unknown] Allergy/AdvReac Type Severity Reaction Status Date / Time No Known Allergies Allergy Verified 04/14/23 16:28 Family History Mother Heart disease Hypertension Diabetes Father Prostate cancer Surgical History H/O cataract removal with insertion of prosthetic lens History of cholecystectomy History of surgery on lower extremity Social History housing: care home Smoking Status: Never smoker alcohol intake: never substance use type: does not use EXAM Physical Exam Const Vital Signs: 04/14/23 16:19 04/14/23 16:27 04/14/23 16:29 Temperature 97.6 F L 97.6 F L Temperature Source Oral Oral Pulse Rate 70 69 Respiratory Rate 19 H 17 Respiratory Effort Normal Non-Labored Respiratory Depth Normal Respiratory Pattern Normal Blood Pressure 142/62 H 143/64 H Blood Pressure Mean 88 90 Pulse Ox 97 99 Oxygen Delivery Method Nasal Cannula Nasal Cannula Nasal Cannula Oxygen Flow Rate (L/min) 4 4 4 04/14/23 16:53 04/14/23 17:13 04/14/23 17:53 Temperature 96.5 F L Temperature Source Axillary Pulse Rate 70 66 Respiratory Rate 16 14 Respiratory Effort Respiratory Depth Respiratory Pattern Blood Pressure 138/54 H 164/86 H Blood Pressure Mean 82 112 Pulse Ox 96 98 98 Oxygen Delivery Method Nasal Cannula Nasal Cannula Room Air Oxygen Flow Rate (L/min) 4 4 04/14/23 19:06 04/14/23 19:06 Temperature 97.6 F L Temperature Source Oral Pulse Rate 66 65 Respiratory Rate 17 19 H Respiratory Effort Respiratory Depth Respiratory Pattern Blood Pressure 137/62 H 137/62 H Blood Pressure Mean 87 87 Pulse Ox 96 97 Oxygen Delivery Method Nasal Cannula Nasal Cannula Oxygen Flow Rate (L/min) 4 4 MDM MDM MDM Narrative Medical decision making narrative: HISTORY OF PRESENT ILLNESS: 63-year-old female here with shortness of breath. She states she had lower extremity required some time that causes pain due to distention. States he has orthopnea. She notes a dry cough. She denies any keo chest pain. M the patient denies recent surgery in the last 4 weeks or immobilization in the last 3 days, denies previous diagnosis of DVT or PE, hemoptysis, unilateral leg swelling or malignancy with treatment the last 6 months or palliative. No estrogen use noted. She denies any bleeding diathesis. Denies any recent travel. Denies any sick contacts or care home. She states she typically wears 3 L of oxygen at night but has been having to wear oxygen throughout the day REVIEW OF SYSTEMS: Pertinent positives: Shortness of breath, cough, lower extremity edema Pertinent negatives: Unilateral leg swelling, chest pain PHYSICAL EXAM: Nursing triage notes reviewed, Vital signs reviewed Constitutional: please see mdm HENT: MMM Eyes: Pupils equal round and reactive to light, Extraocular muscles intact Neck: No stridor, no JVD, full neck ROM Lungs: Clear to auscultation, No wheezing or rales. No increased work of breathing, no conversational dyspnea, no accessory muscle use, no nasal flaring. No respiratory distress noted Heart: Regular rate and rhythm, No murmurs, No rubs and No gallops, 2+ distal pulses (radial, femoral, posterior tibial) in all extremities Abdomen: Soft, there is no tenderness, rigidity, rebound or guarding, no obvious peritoneal signs, no palpable pulsatile abdominal masses, no auscultated abdominal bruit : No CVAT Extremities: 2+ pittting edema. Neuro: No focal neurological deficits, cranial nerves II through XII intact, 5/5 strength in all extremities. Intact sensation to light touch in all extremities, 2+ reflexes bilateral patella tendons. Normal gait. No ataxia. Skin: No rash or lesions noted MEDICAL DECISION MAKING: Chief Complaint: Shortness of breath External records reviewed: Last hospitalization in October 2022 for clinical pneumonia Factors affecting care: Type 2 diabetes, Social determinants of health: long term resident History obtained from others: EMS Consults: Internal medicine MDM Narrative: Patient was initially HDS afebrile, non-toxic appearing I considered the following differential diagnosis: ACS, arrhythmia, anemia, pneumonia, PE, CHF exacerbation, COPD exacerbation, COVID ALL IMAGES (IF OBTAINED) HAVE BEEN PERSONALLY REVIEWED AND INTERPRETED BY MYSELF. EKG with normal sinus rhythm, left ax deviation, normal intervals, no STEMI Chest x-ray read reviewed myself shows worsening cardiomegaly and bilateral pulmonary edema consistent with heart failure CBC without leukocytosis to suggest systemic inflammation, mild anemia that is similar to prior studies, there is thrombocytopenia as well BMP with mild hyperkalemia, noted acute kidney injury Troponin is negative, no evidence of myocardial ischemia BNP elevated consistent with myocyte stretch The totality of the patient's labs images were consistent with acute heart failure exacerbation. I gave 40 mg IV Lasix. Patient was admitted to telemetry floor for ongoing monitoring and diuresis. Discussed with hospitalist Dr. Szymanski. The patient and/or family, caregivers express understanding. The patient and/or family, caregivers agrees with the plan. Shared decision making: I will have a discussion with the patient and or visitors regarding risk/benefits of further testing or admission. They will be made aware of of the risk/benefits inherent in this decision they will be given the opportunity to voice understanding. Total critical care time today provided was at least 0 [] minutes. This excludes separately billable procedures. Critical care time (if documented) is secondary to the patient having high probability of clinically significant/life threatening deterioration in the patient's condition which required my urgent intervention. Impression: 1. Acute CHF exacerbation 2. Anemia 3. Thrombocytopenia 4. Hyperkalemia 5. Acute kidney injury Dispo: Admit Lab Data Labs: Laboratory Results - last 24 hr 04/14/23 17:16 WBC 5.1 RBC 3.09 L Hgb 8.3 L Hct 28.2 L MCV 91.3 MCH 26.9 L MCHC 29.4 L RDW Std Deviation 50.0 H RDW Coeff of Vlad 15.3 H Plt Count 134 L MPV 11.2 Immature Gran % (Auto) 1.800 H Neut % (Auto) 63.1 Lymph % (Auto) 18.2 L [place] % (Auto) 11.2 H Eos % (Auto) 5.3 H Baso % (Auto) 0.4 Absolute Neuts (auto) 3.2 Absolute Lymphs (auto) 0.93 Nucleated RBC % 0 Sodium 139 Potassium 5.3 H Chloride 108 H Carbon Dioxide 28.0 Anion Gap 3 L BUN 45 H Creatinine 1.87 H Estim Creat Clear Calc 26.99 Est GFR (MDRD) Af Amer 35 L Est GFR (MDRD) Non-Af 29 L BUN/Creatinine Ratio 24.1 H Glucose 152 H Calcium 8.2 L Troponin I High Sens 8 B-Natriuretic Peptide 100.4 H Radiography Diagnostic Testing: Clinical Impression(s) from Imaging Studies Chest X-Ray 04/14/23 17:29 IMPRESSION: Nonspecific bilateral perihilar interstitial infiltrates or pulmonary edema Electronically Signed: Kee Resendiz MD at 17:50 EDT , Discharge Plan Triage Chief Complaint: Shortness of Breath ED Provider: Henry Mckinley Dx/Rx/DC Orders Prescriptions: No Action atorvastatin 10 mg Tablet 10 mg PO DAILY pantoprazole 40 mg Tablet,Delayed Release (Dr/Ec) 40 mg PO DAILY escitalopram oxalate 10 mg Tablet 10 mg PO DAILY fenofibrate nanocrystallized [Tricor] 48 mg Tablet 48 mg PO DAILY ropinirole 4 mg tablet 4 mg PO QHS Rx Instructions: administer 1-3 hours before bedtime levofloxacin 750 mg tablet 750 mg PO DAILY Qty: 7 0RF Trulicity 0.75 mg/0.5 mL pen injector SUBCUT Primary Care Provider: Lulu Luna [employer] Referrals: Lulu Luna [employer], [employer] [Primary Care Provider] -
--- NOTE | 2023-04-14 17:29 | RAD_ITS ---
STUDY: X-RAY CHEST REASON FOR EXAM: Female, 63 years old. sob TECHNIQUE: AP portable COMPARISON: November 15, 2022 FINDINGS: Bilateral perihilar reticulonodular interstitial infiltrates or pulmonary edema. There is no demonstrated pleural abnormality. Heart is enlarged.. Normal mediastinum and rebekah. Normal visualized pulmonary arteries. Normal visualized aortic arch and descending thoracic aorta. Dorsal spine and shoulders demonstrate degenerative change. Normal visualized ribs, and clavicles. There is no demonstrated abnormality of the visualized soft tissue structures of the upper abdomen. RAD/Chest 1 View (Portable) IMPRESSION: Nonspecific bilateral perihilar interstitial infiltrates or pulmonary edema Electronically Signed: Kee Resendiz MD at 17:50 EDT ,
[2023-04-14 17:40] LABS: Absolute Lymphocyte Count 0.93 X10^3/uL (0.83-4.51); Absolute Neutrophil Count 3.2 X10^3/uL (2.0-7.7); Basophil# 0.02 X10^3/uL; Basophil% 0.4 % (0-1); Eosinophil# 0.27 X10^3/uL; Eosinophils% 5.3 % (0-5); Hematocrit 28.2 % (37-47); Hemoglobin 8.3 g/dL (12.0-15.0); Lymphocyte # 0.93 X10^3/ul (0.83-4.51); Lymphocyte % 18.2 % (19-41); Mean Corp Hgb Conc 29.4 g/dL (32-36); Mean Corpuscular Hgb 26.9 pg (27.0-32.0); Mean Corpuscular Volume 91.3 fL (81-99); Mean Platelet Vol. 11.2 fl (6.2-12.0); Monocyte# 0.57 X10^3/uL; Monocyte% 11.2 % (0-10); NRBC Flagged by Analyzer 0 % (0-5); Neutrophil # 3.23 X10^3/uL (2.7-7.7); Neutrophil % 63.1 % (47-70); Platelet Count 134 K/mm3 (150-450); RBC Distribution Width CV 15.3 % (11.6-14.6); Red Blood Count 3.09 M/mm3 (4.2-5.4); White Blood Count 5.1 K/mm3 (4.4-11.0)
[2023-04-14 17:57] LABS: Anion Gap 3 (5-15); BUN 45 mg/dL (7-18); BUN/Creat Ratio 24.1 RATIO (10-20); Calcium,Total 8.2 mg/dL (8.5-10.1); Chloride 108 mmol/L (98-107); Creatinine, Serum 1.87 mg/dL (0.55-1.02); EST Glomerular Filtration Rate 29 mL/min (>60); Est Glom Filt Rate - Afr Amer 35 mL/min (>60); Estimated Creatinine Clearance 26.99 ml/min; Glucose 152 mg/dL (74-106); Potassium 5.3 mmol/L (3.5-5.1); Sodium Level 139 mmol/L (136-145); Troponin-I HS 8 pg/mL (3.0-54.0)
[2023-04-14 18:18] LABS: BNP,B-Type NATRIURETIC PEPTIDE 100.4 pg/mL (0-100)
[2023-04-14 19:19] LABS: Bacteria 0 SEEN /hpf (None Seen); Mucous, Urine 0 SEEN /hpf (<or=2+); Red Blood Cells-Urine 0 SEEN /hpf (0-5)
[2023-04-14] MEDS: Furosemide 40 MG/4 ML Vial IV (19:20)
[2023-04-14 19:21] LABS: Color, Urine Yellow (Yellow); Glucose, Dipstick 50 mg/dl (Normal); Ketone-Dipstick Negative (Negative); Leukocyte Esterase-Dipstick 500 /ul (Negative); Nitrite-Dipstick Negative (Negative); Occult Blood-Urine 10 /ul (Negative); Protein-Dipstick 500 mg/dl (Negative); Urine Bilirubin Dipstick Negative (Negative); Urine Clarity Sl. Cloudy (Clear); Urine Urobilinogen Normal (Normal)
--- NOTE | 2023-04-14 19:28 | HP.PCM.HOS_ITS ---
HPI - General General Date of Admission: 04/14/23 Date of Service: 04/14/23 Chief Complaint: SOB HPI Narrative TOBIN BIGGS, is a 63 F who presented urgency department at [facility] on 04/14/2023 complaining of worsening shortness of breath and hypoxia along with lower extremity swelling. She denied fever or chills, coughing, chest pain but did complain of some mild chest heaviness in the sense that she was unable to take a deep breath, nausea or vomiting, diarrhea or constipation. She does states she has had this rash on her legs which appears to be an eczema and she does report she has an history of eczema. She is also being undergoing injections into her eyes for what sounds like retinal hemorrhages. She vanessa cates she supposed to be on eyedrops that were prescribed today but is unclear what they are. She is also supposed to be on moistening drops for her eyes every couple hours while she is awake. She states that her symptoms have been ongoing for about 7 days now however it does appear that bilateral lower extremity Dopplers were performed on 03/25/2023 which was 20 days ago so I suspect that maybe this has been going on a little bit longer than she thinks. She states she has had difficulty ambulating ever since 2021 when she had sepsis. She typically wears 3 L of oxygen at night but had noted with exertion even on 3 L during the day her oxygen saturations dropped into the 70s. She has been diagnosed with sleep apnea but has not been able to tolerate CPAP and therefore just wears 3 L supplemental oxygen nocturnally. Vital signs on presentation show a temperature of 97.6, heart rate 70, blood pressure was 142/62, respiratory rate has been anywhere from 14-19 and oxygen saturation has been stable at 97% on 4 L nasal cannula. No room air documentation has been provided. Her CBC shows a normal white count with no left shift but she does have a monocytosis. Her hemoglobin is stable at 8.3. Platelet count is 134,000 which is significantly below her baseline. Her chemistry panel shows mild hyperkalemia with a potassium of 3.5, and elevated BUN/creatinine at 45 and 1.87. Her troponin was normal. Her BNP was mildly elevated 100.4. When compared to previous NT on 09/24/2022 it is elevated from 79.5 at that time. Her chest x-ray shows nonspecific bilateral perihilar interstitial infiltrates or pulmonary edema. Her UA shows protein and glucose and minimal occult blood at 10 with leuk esterase and white cells but no bacteria. EKG shows normal sinus rhythm without any ST-T wave changes concerning for acute ischemia. [facility] Medical History (Updated 04/14/23 @ 20:[address] Karissa Szymanski, DO) Anxiety and depression Chronic acquired lymphedema Chronic anemia CKD (chronic kidney disease), stage III Diabetes mellitus, type 2 HLD (hyperlipidemia) HTN (hypertension) Hypothyroidism Hypoxia Morbid obesity SACHIN (obstructive sleep apnea) Retinal hemorrhage Home Medications atorvastatin 10 mg tablet 10 mg PO DAILY 09/24/22 [History Last Taken 11/15/22] escitalopram oxalate 10 mg tablet 10 mg PO DAILY 09/24/22 [History Last Taken 11/15/22] fenofibrate nanocrystallized 48 mg tablet (Tricor) 48 mg PO DAILY 09/24/22 [History Last Taken 11/15/22] pantoprazole 40 mg tablet,delayed release 40 mg PO DAILY HEARTBURN 09/24/22 [History Last Taken 11/15/22] levofloxacin 750 mg tablet 750 mg PO DAILY SEE PCP #7 tabs 11/18/22 [Rx Last Taken Unknown] aspirin 81 mg tablet,delayed release (Adult Low Dose Aspirin) 81 mg PO DAILY 03/05/23 [History Last Taken Unknown] exenatide microspheres 2 mg subcutaneous extended release suspension mg subcut 03/05/23 [History Last Taken Unknown] furosemide 20 mg tablet (Lasix) 20 mg PO DAILY EDEMA 03/05/23 [History Last Taken Unknown] gabapentin 100 mg capsule 200 mg PO TID PAIN 03/05/23 [History Last Taken Unknown] glipizide 10 mg tablet 10 mg PO BID 03/05/23 [History Last Taken Unknown] insulin glargine 100 unit/mL subcutaneous solution 45 unit subcut QHS 03/05/23 [History Last Taken Unknown] levothyroxine 150 mcg tablet 150 mcg PO DAILY@0600 SEE PCP 03/05/23 [History Last Taken Unknown] metformin 1,000 mg tablet 1,000 mg PO BID 03/05/23 [History Last Taken Unknown] ropinirole 4 mg tablet 4 mg PO QHS 03/05/23 [History Last Taken Unknown] sitagliptin phosphate 100 mg tablet (Januvia) 100 mg PO DAILY 03/05/23 [History Last Taken Unknown] triamcinolone acetonide 0.1 % topical cream 1 applic topical TID 03/05/23 [History Last Taken Unknown] dulaglutide 0.75 mg/0.5 mL subcutaneous pen injector (Trulicity) mg subcut 04/14/23 [History Last Taken Unknown] fluconazole 100 mg tablet 150 mg PO QWEEK SEE PCP 04/14/23 [History Last Taken Unknown] gabapentin 400 mg capsule 400 mg PO QHS SEE PCP 04/14/23 [History Last Taken Unknown] insulin glargine 100 unit/mL (3 mL) subcutaneous pen (Lantus Solostar U-100 Insulin) 49 unit subcut QHS SEE PCP 04/14/23 [History Last Taken Unknown] insulin lispro 100 unit/mL subcutaneous pen 1 sliding scale dose subcut SEE PCP 04/14/23 [History Last Taken Unknown] metoclopramide HCl 5 mg tablet 5 mg PO BID SEE PCP 04/14/23 [History Last Taken Unknown] omega 5-imf-xgo-fish oil 300 mg-1,000 mg capsule (Fish Oil) 1 cap PO DAILY VITAMIN 04/14/23 [History Last Taken Unknown] pen needle, diabetic 31 gauge x 1/4 (Easy Touch) 04/14/23 [History Last Taken Unknown] potassium chloride 10 mEq capsule,extended release 10 meq PO DAILY SEE PCP 04/14/23 [History Last Taken Unknown] Allergy/AdvReac Type Severity Reaction Status Date / Time No Known Allergies Allergy Verified 04/14/23 16:28 Family History Mother Heart disease Hypertension Diabetes Father Prostate cancer Surgical History H/O cataract removal with insertion of prosthetic lens History of cholecystectomy History of surgery on lower extremity Social History housing: jail Smoking Status: Never smoker alcohol intake: never substance use type: does not use ROS Constitutional Constitutional: Reports weakness; Denies anorexia, change in weight, chills, fa tigue, fever(s), malaise, night sweats or other Eyes Eyes: Reports blurry vision; Denies change in eye color, change in vision, discharge from eye(s), double vision, erythema, eye pain, loss of vision or other ENT HEENT: Denies abnormal hearing, dysphagia, ear pain, epistaxis, headache(s), hearing loss, nasal congestion, nasal discharge, post nasal drip, sinus pressure, sore throat or other Cardiovascular Cardiovascular: Reports edema; Denies chest pain, claudication, dyspnea on exertion, lightheadedness, orthopnea, palpitations, paroxysmal nocturnal dyspnea, rapid heart rate, syncope or other Respiratory/Chest Respiratory/Chest: Reports dyspnea, shortness of breath at rest and shortness of breath with exertion; Denies cough, excessive phlegm production, hemoptysis, productive cough, wheezing or other Gastrointestinal Gastrointestinal: Denies abdominal pain, coffee ground emesis, constipation, diarrhea, dyspepsia, hematemesis, hematochezia, loose stools, melena, nausea, vomiting or other Genitourinary Genitourinary: Denies burning urination, difficulty urinating, dysuria, hematuria, nocturia, urinary frequency, urinary hesitancy, urinary incontinence, urinary urgency or other Musculoskeletal Musculoskeletal: Reports back pain; Denies arthralgias, joint pain, joint stiffness, joint swelling, myalgias, neck pain or other Neurologic Neurologic: Reports abnormal gait and other Details: Lateral lower extremity weakness Psychiatric Psychiatric: Reports anxiety and depression; Denies homicidal ideation, suicidal ideation or other Endocrine Endocrinology: Denies change in body appearance, cold intolerance, excessive sweating, heat intolerance, polydipsia, polyuria or other Hematologic/Lymphatic Hematologic/Lymphatic: Denies anemia, easy bleeding, easy bruising, lymphadenopathy or other Allergic/Immunologic Allergic/Immunologic: Denies rhinitis, hives, eczemia, asthma or other Vital Signs Vital Signs Vital Signs: 04/14/23 16:19 04/14/23 16:27 04/14/23 16:29 Temperature 97.6 F L 97.6 F L Temperature Source Oral Oral Pulse Rate 70 69 Respiratory Rate 19 H 17 Respiratory Effort Normal Non-Labored Respiratory Depth Normal Respiratory Pattern Normal Blood Pressure 142/62 H 143/64 H Blood Pressure Mean 88 90 Pulse Ox 97 99 Oxygen Delivery Method Nasal Cannula Nasal Cannula Nasal Cannula Oxygen Flow Rate (L/min) 4 4 4 04/14/23 16:53 04/14/23 17:13 04/14/23 17:53 Temperature 96.5 F L Temperature Source Axillary Pulse Rate 70 66 Respiratory Rate 16 14 Respiratory Effort Respiratory Depth Respiratory Pattern Blood Pressure 138/54 H 164/86 H Blood Pressure Mean 82 112 Pulse Ox 96 98 98 Oxygen Delivery Method Nasal Cannula Nasal Cannula Room Air Oxygen Flow Rate (L/min) 4 4 04/14/23 19:06 04/14/23 19:06 Temperature 97.6 F L Temperature Source Oral Pulse Rate 66 65 Respiratory Rate 17 19 H Respiratory Effort Respiratory Depth Respiratory Pattern Blood Pressure 137/62 H 137/62 H Blood Pressure Mean 87 87 Pulse Ox 96 97 Oxygen Delivery Method Nasal Cannula Nasal Cannula Oxygen Flow Rate (L/min) 4 4 Weight Weight: 134.9 kg Body Mass Index (BMI) 49.4 Physical Exam Const alert, oriented x3 and well nourished; Negative for no apparent distress, average body habitus or healthy appearing Constitutional Narrative: Upper middle-aged, white female, morbidly obese, sitting on bedside commode, appears older than stated age, significant shortness of breath with exertion and with conversation however no significant dyspnea with rest General Appearance: cooperative HEENT normocephalic, head/scalp atraumatic, hearing grossly normal bilaterally and moist oral mucous membranes HEENT Narrative: Mallampati 4, no thrush Eyes PERRL and EOMs intact bilaterally Eyes Narrative: Conjunctiva are mildly pale bilaterally, scleral injection on the right with conjunctival hemorrhage on the left Neck no lymphadenopathy and supple Neck Narrative: Neck is short and thick, trachea midline, no noted thyroid enlargement Resp Resp Narrative: Scattered bilateral crackles, tachypnea and significant conversational and exertional dyspnea Auscultation: crackles; Negative for rhonchi or wheezes Cardio regular rate, regular rhythm, S1 normal heart sound, S2 normal heart sound, no murmurs, no rub, no gallops and no clicks GI normal to inspection, nondistended, normoactive bowel sounds, soft to palpation and non-tender GI Narrative: Large protuberant abdomen Extremity Extremity Narrative: Trace to 1+ bilateral lower extremity edema with no cyanosis or clubbing Skin Skin Narrative: Eczema appearing rash bilateral lower extremities Neuro oriented x3, CN's II-XII intact bilaterally, moves all extremities and no focal motor deficits Neuro Narrative: Significant bilateral lower extremity generalized weakness with proximal musculature being weaker than distal musculature, upper extremity weakness in the same pattern however less severe Speech: speech normal Psych affect normal Psych Narrative: Mildly anxious but eye contact is good and patient interacts normally Mood & Affect: anxious Results Lab / Micro Data Attestation: I reviewed the patient's lab results. 04/14/23 17:16 04/14/23 17:16 Labs: Laboratory Results - last 24 hr 04/14/23 17:16: WBC 5.1, RBC 3.09 L, Hgb 8.3 L, Hct 28.2 L, MCV 91.3, MCH 26.9 L , MCHC 29.4 L, RDW Std Deviation 50.0 H, RDW Coeff of Vlad 15.3 H, Plt Count 134 L, MPV 11.2, Immature Gran % (Auto) 1.800 H, Neut % (Auto) 63.1, Lymph % (Auto) 18.2 L, [place] % (Auto) 11.2 H, Eos % (Auto) 5.3 H, Baso % (Auto) 0.4, Absolute Neuts (auto) 3.2, Absolute Lymphs (auto) 0.93, Nucleated RBC % 0, Sodium 139, Potassium 5.3 H, Chloride 108 H, Carbon Dioxide 28.0, Anion Gap 3 L, BUN 45 H, Creatinine 1.87 H, Estim Creat Clear Calc 26.99, Est GFR (MDRD) Af Amer 35 L, Est GFR (MDRD) Non-Af 29 L, BUN/Creatinine Ratio 24.1 H, Glucose 152 H, Calcium 8.2 L, Troponin I High Sens 8, B-Natriuretic Peptide 100.4 H 04/14/23 19:15: Urine Color Yellow, Urine Clarity Sl. Cloudy, Urine pH 7.0, Ur Specific [place] 1.010, Urine Protein 500 H, Urine Glucose (UA) 50 H, Urine Ketones Negative, Urine Occult Blood 10 H, Urine Nitrite Negative, Urine Bilirubin Negative, Urine Urobilinogen Normal, Ur Leukocyte Esterase 500 H Micro: Microbiology 04/14/23 17:16 Nasal Secretion SARS-CoV-2 Antigen (Rapid) - Final Radiology Impression Chest X-Ray 04/14/23 17:29 IMPRESSION: Nonspecific bilateral perihilar interstitial infiltrates or pulmonary edema Electronically Signed: Kee Resendiz MD at 17:50 EDT , Assessment & Plan Assessment/Plan (1) Lower extremity edema: (2) GASTON (acute kidney injury): (3) Hypoxia: (4) Hyperkalemia: (5) Thrombocytopenia: PLAN: Plan Acute hypoxia -Etiology is not exactly clear at this time however we will proceed with treatment for acute decompensated diastolic heart failure -Lasix drip -COVID is negative -Echocardiogram -Lower extremity Alessio bandages -Accurate I's and O's -Daily weights -Fluid and sodium restricted diet -Continue supplemental oxygen--> currently requiring 4 L and baseline is 3 L nocturnally only -Check respiratory viral panel -Check LAINE and ANCA with worsening renal function and thrombocytopenia -Unable to check CTA of the chest due to renal function--> would consider if renal function improves -VQ scan would be an accurate due to abnormal chest x-ray -Patient with recent negative lower extremity Dopplers -Check sed rate CRP -Plain CT of the chest is pending GASTON on CKD stage IIIa -Baseline serum creatinine appears to be between 1 and 1.3 -Current serum creatinine is 1.87 -Lasix drip to see if getting her back on the Starling curve will help with renal function and perfusion -Work-up for pulmonary renal syndrome is pending -Patient without any hemoptysis -Hold home metformin -UA shows mild hematuria Hyperkalemia -Mild at 5.3 -Hold home potassium supplement -Diuresis and repeat lab in a.m. Lower extremity edema -Diuretics as above -Recent lower extremity Dopplers unremarkable DM-2 -Hold home oral agents -Continue home basal insulin -SSI -Accu-Cheks as ordered -Cardiac/carb controlled diet Hypothyroidism Continue home senna -Check TSH GERD -Continue PI Restless leg syndrome -Continue home ropinirole Gastroparesis -Continue home Reglan Retinal hemorrhages secondary to DM-2 -Eyedrops -Will need to clarify with home med rec for other eyedrops as these have recently been prescribed and patient does not have them on her list Diabetic neuropathy -Continue home gabapentin 200 3 times daily -Hold 400 mg dosing at nightly due to renal dysfunction Hyperlipidemia -Continue home fenofibrate -Continue home atorvastatin SACHIN -Patient noncompliant with CPAP due to intolerance -Wears nocturnal oxygen 3 L Morbid obesity -BMI is 49.5 -Recommend weight loss -Complicates treatment, prognosis, outcomes Depression -Continue home escitalopram DVT prophylaxis -Heparin 3 times daily with renal dysfunction CODE STATUS -Full code as verified on presentation Charges/Coding Visit Charges Inpatient E&M: 27362 Init Hosp L3
[2023-04-14 19:43] LABS: Squamous Epithelial Cells - UA 5-10 SEEN /hpf (5-10); White Blood Cells 5-10 SEEN /hpf (0-5)
--- NOTE | 2023-04-14 20:39 | CT_ITS ---
INDICATION: hypoxia EXAMINATION: CT CHEST WITHOUT CONTRAST - CT Chest W/O Contrast Injection TECHNIQUE: Helically acquired images were obtained of the chest. A radiation dose optimization technique was used for this scan. IV Contrast dosage and agent: None. RADIATION DOSAGE (If Supplied By Facility): CTDIvol = ( 20.15 ) mGy, DLP = ( 694.78 ) mGycm COMPARISON: 09/24/2022 FINDINGS: LUNGS, PLEURA AND LARGE AIRWAYS: There is diffuse interstitial thickening with patchy groundglass opacities in both lungs suggesting pulmonary edema with small left pleural effusion . Superimposed pneumonia can''t be excluded. No pneumothorax. THYROID: No thyroid lesions. HEART AND PERICARDIUM: Heart size is normal. No pericardial effusion. CORONARY ARTERIES: Coronary artery calcification VESSELS: Thoracic aorta is not dilated. MEDIASTINUM AND LUCY: No mediastinal or hilar adenopathy. Esophagus is unremarkable. No hiatal hernia. UPPER ABDOMEN: No acute pathology. BONES: No suspicious lytic or blastic abnormality. CT/Chest without Contrast IMPRESSION: Pulmonary edema is worse since the previously. Small left pleural effusion has decreased in size. Electronically Signed: Fran Hidalgo MD at 5:49 EDT ,
[2023-04-14 21:02] LABS: CRP 5.84 mg/L (0.0-3.0)
--- NOTE | 2023-04-14 21:18 | ECHOCS_ITS ---
Reason For Study: CHF Procedure This was a 2D Doppler, Color Flow transthoracic echocardiogram. The study was technically difficult. Exam performed portable in patient room. Left Ventricle Normal LV size. Mild concentric left ventricular hypertrophy. The left ventricular ejection fraction is 65 %. Normal diastology for age. Right Ventricle The right ventricular apex is not well visualized. Atria Normal left atrium. The right atrium is not well visualized. Mitral Valve Mild mitral annular calcification. Tricuspid Valve Trivial tricuspid valve insufficiency. Unable to estimate RV systolic pressure due to insufficient tricuspid regurgitant envelope. Aortic Valve Normal aortic valve. Pulmonic Valve The pulmonic valve is not well visualized. Great Vessels Normal sized aortic root. Pericardium/Pleural No pericardial effusion. Medication Diluted definity 1ml given slow IV push to enhance endocardial definition. MMode/2D Measurements & Calculations LVIDd: 4.8 cm IVSd: 1.3 cm Ao root diam: 3.2 cm LVIDs: 3.2 cm LVPWd: 1.3 cm RVDd: 4.0 cm FS: 34.0 % LAV(MOD-bp): 64.8 ml LVAd ap2: 32.9 cm2 SV(MOD-sp2): 69.7 ml LAV(MOD-bp) Indexed: 28.1 ml/m2 LVLd ap2: 7.7 cm LAV(MOD-sp2): 59.0 ml EDV(MOD-sp2): 111.4 ml LAV(MOD-sp4): 63.0 ml EDV(sp2-el): 119.1 ml LVAs ap2: 17.8 cm2 LVLs ap2: 6.1 cm ESV(MOD-sp2): 41.7 ml ESV(sp2-el): 43.9 ml EF(MOD-sp2): 62.6 % LA A4 area: 21.9 cm2 LA dimension(2D): 4.1 cm RA A4 area: 18.4 cm2 Time Measurements MV dec time: 0.35 sec Doppler Measurements & Calculations MV E max eze: 79.4 cm/sec Lat Peak E' Eze: 8.0 cm/sec Med Peak E' Eze: 6.3 cm/sec MV A max eze: 73.2 cm/sec E/E' lat: 10.0 E/E' med: 12.6 MV E/A: 1.1 Ao V2 max: 106.9 cm/sec LV V1 max: 102.9 cm/sec PA V2 max: 111.5 cm/sec Ao max P.6 mmHg LV V1 max P.2 mmHg TR max eze: 255.9 cm/sec TR max P.2 mmHg ECHO/Echo Complete W/ Contrast Interpretation Summary Mild concentric left ventricular hypertrophy. The left ventricular ejection fraction is 65 %. Mild mitral annular calcification. The study was technically difficult. Ordering Physician: Karissa Szymanski Referring Physician: ORTIZ WANG Performed By: Mindy Guido RDCS
[2023-04-14 22:04] LABS: Erythrocyte Sedimentation Rate 21 mm/hr (0-30)
[2023-04-14] MEDS: Heparin Injection (Vial) 5,000 UNIT/ML VIAL 5000 UNIT SC (22:41)
[2023-04-14] MEDS: Insulin Glargine-YFGN 100 UNIT/ML Pen 49 UNIT SC (22:42)
[2023-04-14] MEDS: Pramipexole Di-HCl 0.5 MG Tablet 1.5 MG PO (22:45)
[2023-04-14] MEDS: Glycerin/Hypromellose/PEG400 15 ml Bottle 1 DRP EACH EYE (22:45)
[2023-04-14] MEDS: Metoclopramide 5 MG TABLET PO (22:45)
[2023-04-14] MEDS: Gabapentin 100 MG Capsule 200 MG PO (22:45)
[2023-04-14] MEDS: 0.9% Saline Lock 10 ML Syringe IV (22:45)
[2023-04-14] MEDS: Furosemide 500 MG in Empty Viaflex 50 mL 1 EACH CONT INF (22:45)
[2023-04-14 23:11] LABS: Bedside Glucose 132 mg/dL (74-106)
[2023-04-15] VITALS (7 sets, daily range): BP systolic 117–143; BP diastolic 51–65; PULSE 62–78; RESP 16–18; TEMP 36.2–36.5; O2SAT 94–98; BMI 47.2
[2023-04-15] MEDS: Glycerin/Hypromellose/PEG400 15 ml Bottle 1 DRP EACH EYE ×12 (00:50→22:53)
[2023-04-15] MEDS: Miconazole Nitrate 43 GM Bottle 1 APPLIC TOPICAL ×3 (05:14→21:14)
[2023-04-15] MEDS: Levothyroxine 150 MCG Tablet PO (05:14)
[2023-04-15] MEDS: Heparin Injection (Vial) 5,000 UNIT/ML VIAL 5000 UNIT SC ×3 (05:14→21:01)
[2023-04-15] MEDS: Gabapentin 100 MG Capsule 200 MG PO ×3 (05:19→21:05)
[2023-04-15 05:57] LABS: Absolute Neutrophil Count 2.7 X10^3/uL (2.0-7.7); Basophil# 0.01 X10^3/uL; Basophil% 0.2 % (0-1); Eosinophil# 0.28 X10^3/uL; Eosinophils% 6.3 % (0-5); Hematocrit 27.2 % (37-47); Hemoglobin 8.1 g/dL (12.0-15.0); Lymphocyte % 17.9 % (19-41); Mean Corp Hgb Conc 29.8 g/dL (32-36); Mean Corpuscular Hgb 26.3 pg (27.0-32.0); Mean Corpuscular Volume 88.3 fL (81-99); Mean Platelet Vol. 11.5 fl (6.2-12.0); Monocyte# 0.59 X10^3/uL; Monocyte% 13.2 % (0-10); NRBC Flagged by Analyzer 0 % (0-5); Neutrophil # 2.72 X10^3/uL (2.7-7.7); Neutrophil % 61.1 % (47-70); Platelet Count 136 K/mm3 (150-450); RBC Distribution Width CV 15.2 % (11.6-14.6); RBC Distribution Width SD 48.2 fl (35.1-43.9); Red Blood Count 3.08 M/mm3 (4.2-5.4); White Blood Count 4.5 K/mm3 (4.4-11.0)
[2023-04-15 06:46] LABS: ALB/GLOB Ratio 0.8 RATIO (0.9-2.4); AST(SGOT) 20 U/L (15-37); Alanine Aminotransfer ALT/SGPT 26 U/L (13-56); Albumin, Serum 2.8 g/dL (3.2-5.0); Alkaline Phosphatase 66 U/L (45-117); Anion Gap 2 (5-15); BUN 42 mg/dL (7-18); BUN/Creat Ratio 23.1 RATIO (10-20); Calcium,Total 8.7 mg/dL (8.5-10.1); Chloride 107 mmol/L (98-107); Creatinine, Serum 1.82 mg/dL (0.55-1.02); EST Glomerular Filtration Rate 30 mL/min (>60); Est Glom Filt Rate - Afr Amer 36 mL/min (>60); Estimated Creatinine Clearance 27.73 ml/min; Globulin 3.5 g/dL (2.2-4.2); Glucose 112 mg/dL (74-106); Magnesium 1.7 mg/dL (1.6-2.6); Phosphorus 3.6 mg/dL (2.5-4.9); Potassium 4.6 mmol/L (3.5-5.1); Protein, Total 6.3 g/dL (6.4-8.2); Sodium Level 143 mmol/L (136-145)
[2023-04-15 06:55] LABS: Bedside Glucose 96 mg/dL (74-106)
--- NOTE | 2023-04-15 07:57 | PN.HOSP_ITS ---
Reason for Visit Reason for Visit: Diagnoses Thrombocytopenia, unspecified (04/14/23) Hyperkalemia (04/14/23) Acute kidney failure, unspecified (04/14/23) Hypoxemia (04/14/23) Localized edema (04/14/23) Subjective Subjective Follow-up for CHF exacerbation. Objective Data Objective Data Vital Signs: Vital Signs Temp Pulse Resp BP Pulse Ox O2 Del Method O2 Flow Rate 974 F H 73 18 140/65 H 98 Nasal Cannula 4 04/15/23 03:15 04/15/23 03:15 04/15/23 03:15 04/15/23 03:15 04/15/23 03:15 04/15/23 03:15 04/15/23 03:15 Oxygen Flow Rate (L/min) 4 Oxygen Delivery Method Nasal Cannula Weight: 283 lb 8.231 oz Body Mass Index (BMI) 47.2 Intake & Output: Intake and Output for Last 24 Hours 04/13/23 04/14/23 04/15/23 23:59 23:59 23:59 Output Total 1999 Balance -1999 Lab / Micro Data 04/15/23 05:25 04/15/23 05:25 Labs: Laboratory Results - last 24 hr 04/14/23 17:16: WBC 5.1, RBC 3.09 L, Hgb 8.3 L, Hct 28.2 L, MCV 91.3, MCH 26.9 L , MCHC 29.4 L, RDW Std Deviation 50.0 H, RDW Coeff of Vlad 15.3 H, Plt Count 134 L, MPV 11.2, Immature Gran % (Auto) 1.800 H, Neut % (Auto) 63.1, Lymph % (Auto) 18.2 L, [place] % (Auto) 11.2 H, Eos % (Auto) 5.3 H, Baso % (Auto) 0.4, Absolute Neuts (auto) 3.2, Absolute Lymphs (auto) 0.93, Nucleated RBC % 0, Sodium 139, Potassium 5.3 H, Chloride 108 H, Carbon Dioxide 28.0, Anion Gap 3 L, BUN 45 H, Creatinine 1.87 H, Estim Creat Clear Calc 26.99, Est GFR (MDRD) Af Amer 35 L, Est GFR (MDRD) Non-Af 29 L, BUN/Creatinine Ratio 24.1 H, Glucose 152 H, Calcium 8.2 L, Troponin I High Sens 8, C-React Prot Ext Range 5.84 H, B-Natriuretic Peptide 100.4 H 04/14/23 19:15: Urine Color Yellow, Urine Clarity Sl. Cloudy, Urine pH 7.0, Ur Specific [place] 1.010, Urine Protein 500 H, Urine Glucose (UA) 50 H, Urine Ketones Negative, Urine Occult Blood 10 H, Urine Nitrite Negative, Urine Bilirubin Negative, Urine Urobilinogen Normal, Ur Leukocyte Esterase 500 H, Urine RBC 0 SEEN, Urine WBC 5-10 SEEN, Ur Squamous Epith Cells 5-10 SEEN, Urine Bacteria 0 SEEN, Urine Mucus 0 SEEN 04/14/23 21:26: ESR 21 04/14/23 22:40: POC Glucose 132 H 04/14/23 : Miscellaneous Test Cancelled 04/14/23 : Miscellaneous Test Cancelled 04/15/23 05:25: WBC 4.5, RBC 3.08 L, Hgb 8.1 L, Hct 27.2 L, MCV 88.3, MCH 26.3 L , MCHC 29.8 L, RDW Std Deviation 48.2 H, RDW Coeff of Vlad 15.2 H, Plt Count 136 L, MPV 11.5, Immature Gran % (Auto) 1.300 H, Neut % (Auto) 61.1, Lymph % (Auto) 17.9 L, [place] % (Auto) 13.2 H, Eos % (Auto) 6.3 H, Baso % (Auto) 0.2, Absolute Neuts (auto) 2.7, Absolute Lymphs (auto) 0.80 L, Nucleated RBC % 0, Sodium 143, Potassium 4.6, Chloride 107, Carbon Dioxide 34.0 H, Anion Gap 2 L, BUN 42 H, Creatinine 1.82 H, Estim Creat Clear Calc 27.73, Est GFR (MDRD) Af Amer 36 L, Est GFR (MDRD) Non-Af 30 L, BUN/Creatinine Ratio 23.1 H, Glucose 112 H, Calcium 8.7, Phosphorus 3.6, Magnesium 1.7, Total Bilirubin 0.30, AST 20, ALT 26, Alkaline Phosphatase 66, Total Protein 6.3 L, Albumin 2.8 L, Globulin 3.5, Albumin/Globulin Ratio 0.8 L, TSH 36.80 H 04/15/23 06:32: POC Glucose 96 Micro: Microbiology 04/14/23 23:00 Mucosa - Nasopharyngeal Respiratory Panel (PCR) - Final 04/14/23 17:16 Nasal Secretion SARS-CoV-2 Antigen (Rapid) - Final Radiography Diagnostic Testing: Radiology Impression Chest X-Ray 04/14/23 17:29 IMPRESSION: Nonspecific bilateral perihilar interstitial infiltrates or pulmonary edema Electronically Signed: Kee Resendiz MD at 17:50 EDT , Chest CT 04/14/23 20:39 IMPRESSION: Pulmonary edema is worse since the previously. Small left pleural effusion has decreased in size. Electronically Signed: Fran Hidalgo MD at 5:49 EDT , Physical Exam Narrative Seen and examined. History taken directly from the patient. The patient has progressive shortness of breath hypoxia and lower extremity swelling for about 1 to 2 weeks. Denies increasing abdominal girth. Patient stated her body weight increased from 240s to 280s in past few months. Physical exam General: Alert, Oriented x3, Cooperative, morbid obesity BMI 47.2 kg/m? HEENT: Atraumatic, PERRLA, EOMI, Normocephalic Oral: No Gingival or Mucosal Lesions/ Ulcerations Neck: Supple, elevated JVD, Negative Carotid Bruits Lungs: Air entry diminished in bilateral lung bases. Bilateral lung bases fine crepitations. Cardiovascular: Regular rate, Regular Rhythm, Normal S1, Normal S2, systolic murmur LLSB Abdomen: Bowel Sounds Present, Soft, Non Tender, Non-Distended : No renal angle tenderness. No suprapubic tenderness. Extremities: Below-knee 3+ bilateral pitting edema, Capillary Refill Less than 3 Seconds Skin: No rashes, No breakdown Musculoskeletal: No Tenderness to Palpation of Joints or Extremities. ROM restricted due to swelling. Muscle strength 4+/5 at knee and hip joints. Neurological: Cranial nerves II-XII grossly intact, DTR 2+/4. No acute focal neurological deficit. Psych/Mental Status: Flat affect. Assessment & Plan Assessment/Plan (1) Lower extremity edema: (2) GASTON (acute kidney injury): (3) Hypoxia: (4) Hyperkalemia: (5) Thrombocytopenia: PLAN: Plan 63-year-old female admitted with shortness of breath, leg swelling, orthopnea and hypoxia gradually worsening for about 1 to 2 weeks. Mild chest heaviness with sense of unable to take deep breath otherwise no chest pain. Patient has chronic eczematous rash in the legs. On 3 L of home oxygen but pulse ox dropped to 70% on 3 L on exertion. Venous duplex on 03/25/2023 was negative. 1. Acute pulmonary edema due to acute on chronic HFpEF/diastolic heart failure with associated hypoxia: Patient is being admitted in PCU. Patient is on Lasix drip. Patient feels improvement in symptoms. Patient had significant weight gain. BNP elevated. CT chest initially reviewed and shows bilateral patchy groundglass opacity with a small left pleural effusion most likely due to pulmonary edema. Heart failure core measures including intake and output, fluid restriction less than 1500 mL, daily weight monitoring, kidney and electrolytes monitoring. ESR elevated. Respiratory panel and SARS Cov rapid antigens are negative. I do not think infectious cause or pneumonia responsible for acute pulmonary edema. Recent lower extremity venous duplex were negative. Modified Wells criteria for PE is 0. Therefore I do not think patient needs VQ scan further to rule out PE 2. GASTON on CKD stage IIIa possible due to heart failure exacerbation: -Baseline serum creatinine appears to be between 1 and 1.3. Lasix drip to achieve effective heart pumping function in regards to Starling curve -Current serum creatinine is 1.87. Repeat creatinine stable today. Patient does not have hemoptysis. Monitor kidney function. UA shows no hematuria. 3. Hyperkalemia -Mild at 5.3 -Hold home potassium supplement. Repeat potassium is normal. 4. DM-2 -Hold home oral agents -Continue home basal insulin -SSI -Accu-Cheks as ordered -Cardiac/carb controlled diet 5. Hypothyroidism 04/15-TSH 36.8 high. Free T4 ordered for tomorrow AM. Levothyroxine dose increased. 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 -Eyedrops -Will need to clarify with home med rec for other eyedrops as these have recently been prescribed and patient does not have them on her list Diabetic neuropathy -Continue home gabapentin 200 3 times daily -Hold 400 mg dosing at nightly due to renal dysfunction Hyperlipidemia -Continue home fenofibrate -Continue home atorvastatin SACHIN -Patient noncompliant with CPAP due to intolerance -Wears nocturnal oxygen 3 L Morbid obesity -BMI is 49.5 -Recommend weight loss -Complicates treatment, prognosis, outcomes Depression -Continue home escitalopram DVT prophylaxis -Heparin 3 times daily with renal dysfunction CODE STATUS -Full code as verified on presentation Clinical Impression(s) from Imaging Studies Chest X-Ray 04/14/23 17:29 IMPRESSION: Nonspecific bilateral perihilar interstitial infiltrates or pulmonary edema Chest CT 04/14/23 20:39 IMPRESSION: Pulmonary edema is worse since the previously. Small left pleural effusion has decreased in size. Echocardiogram 04/14/23 21:18 Interpretation Summary Mild concentric left ventricular hypertrophy. The left ventricular ejection fraction is 65 %. Mild mitral annular calcification. The study was technically difficult. Charges/Coding Addendum Addendum: Total time of the visit including total time spent in counseling or coordination of care, (more than 50% of the total time, spent in obtaining medical information from nurses and other ancillary care providers,explaining to the patient about labs, imaging, diagnosis and management of active complex medical conditions), monitoring and titrating furosemide drip, review of labs and imaging is 40 minutes. Visit Charges Inpatient E&M: 799[address] [facility] Hosp L3
[2023-04-15] MEDS: Metoclopramide 5 MG TABLET PO ×2 (10:03→21:02)
[2023-04-15] MEDS: Escitalopram Oxalate 10 MG Tablet PO (10:03)
[2023-04-15] MEDS: Fenofibrate 48 MG Tablet PO (10:03)
[2023-04-15] MEDS: Acetaminophen 325 MG Tablet 650 MG PO (10:03)
[2023-04-15] MEDS: Pantoprazole Sodium 40 MG Tablet PO (10:03)
[2023-04-15] MEDS: Glucerna Shake 120 ML LIQUID PO ×2 (10:03→11:30)
[2023-04-15] MEDS: Flu Vacc QS2023-24(65YR UP)/PF 240 MCG/0.7 ML Syringe IM (10:05)
[2023-04-15 11:49] LABS: Bedside Glucose 134 mg/dL (74-106)
--- NOTE | 2023-04-15 13:31 | CASEMGMT ---
Social Work SW met with pt and discussed advance directives. 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 SW informed pt documents are not on file at [facility] and requested they be brought in for scanning into her medical record. Thomas Zaragoza
--- NOTE | 2023-04-15 13:38 | CASEMGMT ---
Social Work SW met with pt and introduced self and role of SW. Pt confirms that she has lived at [facility] since August 2021 and plans to return there upon discharge. Pt has a walker and a wheelchair and uses the walker for short distances and the wheelchair when she goes to the dining room and for distance. Pt states she is independent with dressing and staff assist with showers and medication management. Pt also had oxygen through [employer] and uses 3L continuously. Pt has a Change House Attendant through [facility], Ladan Bang. SW updated Ladan that pt has been admitted and will fax discharge orders upon discharge. JOYCE Zaragoza
[2023-04-15 17:03] LABS: Bedside Glucose 120 mg/dL (74-106)
[2023-04-15] MEDS: Atorvastatin Calcium 10 MG Tablet PO (21:01)
[2023-04-15] MEDS: Pramipexole Di-HCl 0.5 MG Tablet 1.5 MG PO (21:01)
[2023-04-15] MEDS: Insulin Glargine-YFGN 100 UNIT/ML Pen 49 UNIT SC (21:10)
[2023-04-15] MEDS: Insulin Lispro 100 UNIT/ML INSULN.PEN SC (21:11)
[2023-04-15 21:34] LABS: Bedside Glucose 223 mg/dL (74-106)
[2023-04-16] VITALS (18 sets, daily range): BP systolic 91–152; BP diastolic 54–68; PULSE 74–97; RESP 14–19; TEMP 36.4–36.9; O2SAT 82–97; BMI 47.7
[2023-04-16] MEDS: Glycerin/Hypromellose/PEG400 15 ml Bottle 1 DRP EACH EYE ×11 (01:03→21:31)
[2023-04-16] MEDS: Gabapentin 100 MG Capsule 200 MG PO ×3 (05:03→21:39)
[2023-04-16] MEDS: Heparin Injection (Vial) 5,000 UNIT/ML VIAL 5000 UNIT SC ×3 (05:03→21:30)
[2023-04-16] MEDS: Levothyroxine 175 MCG Tablet PO (05:07)
[2023-04-16] MEDS: Miconazole Nitrate 43 GM Bottle 1 APPLIC TOPICAL ×3 (05:19→21:32)
[2023-04-16 05:36] LABS: Absolute Lymphocyte Count 0.46 X10^3/uL (0.83-4.51); Absolute Neutrophil Count 2.4 X10^3/uL (2.0-7.7); Basophil# 0.01 X10^3/uL; Basophil% 0.3 % (0-1); Eosinophil# 0.29 X10^3/uL; Eosinophils% 7.8 % (0-5); Hematocrit 28.1 % (37-47); Hemoglobin 8.6 g/dL (12.0-15.0); Lymphocyte # 0.46 X10^3/ul (0.83-4.51); Lymphocyte % 12.4 % (19-41); Mean Corp Hgb Conc 30.6 g/dL (32-36); Mean Corpuscular Volume 88.4 fL (81-99); Mean Platelet Vol. 11.5 fl (6.2-12.0); Monocyte# 0.49 X10^3/uL; Monocyte% 13.2 % (0-10); NRBC Flagged by Analyzer 0 % (0-5); Neutrophil # 2.39 X10^3/uL (2.7-7.7); Neutrophil % 64.7 % (47-70); POSITIVE DIFFERENTIAL YES; Platelet Count 144 K/mm3 (150-450); RBC Distribution Width CV 15.3 % (11.6-14.6); RBC Distribution Width SD 49.1 fl (35.1-43.9); Red Blood Count 3.18 M/mm3 (4.2-5.4); White Blood Count 3.7 K/mm3 (4.4-11.0)
[2023-04-16 05:39] LABS: Differential Indicated SCAN CRITERIA MET
[2023-04-16 06:07] LABS: Anion Gap 6 (5-15); BUN 49 mg/dL (7-18); Chloride 101 mmol/L (98-107); Creatinine, Serum 2.45 mg/dL (0.55-1.02); EST Glomerular Filtration Rate 21 mL/min (>60); Est Glom Filt Rate - Afr Amer 25 mL/min (>60); Glucose 235 mg/dL (74-106); Potassium 4.6 mmol/L (3.5-5.1); Sodium Level 141 mmol/L (136-145); T4 Free Direct 0.85 ng/dL (0.76-1.46)
[2023-04-16 06:08] LABS: Differential Comment SCANNED
[2023-04-16] MEDS: Insulin Lispro 100 UNIT/ML INSULN.PEN SC ×3 (08:41→21:30)
[2023-04-16 09:03] LABS: Bedside Glucose 187 mg/dL (74-106)
[2023-04-16] MEDS: Escitalopram Oxalate 10 MG Tablet PO (09:26)
[2023-04-16] MEDS: Pantoprazole Sodium 40 MG Tablet PO (09:26)
[2023-04-16] MEDS: Metoclopramide 5 MG TABLET PO ×2 (09:26→21:33)
[2023-04-16] MEDS: Fenofibrate 48 MG Tablet PO (09:26)
--- NOTE | 2023-04-16 10:11 | CASEMGMT ---
Discharge Planning Updates faxed to [facility]. Louise King, Discharge Planning Asst.
[2023-04-16 12:15] LABS: Bedside Glucose 251 mg/dL (74-106)
--- NOTE | 2023-04-16 13:00 | PCM.PN.HOSP ---
Subjective Subjective Doing well, no issues overnight Objective Data Objective Data Vital Signs: Vital Signs Temp Pulse Resp BP Pulse Ox O2 Del Method O2 Flow Rate 98.0 F 74 18 100/54 L 95 Nasal Cannula 3 04/16/23 11:30 04/16/23 11:30 04/16/23 11:30 04/16/23 11:30 04/16/23 11:30 04/16/23 11:30 04/16/23 11:30 Oxygen Flow Rate (L/min) 3 Oxygen Delivery Method Nasal Cannula Weight: 286 lb 9.615 oz Body Mass Index (BMI) 47.7 Intake & Output: Intake and Output for Last 24 Hours 04/15/23 04/16/23 04/17/23 03:59 03:59 03:59 Intake Total 1450 / 1450 734.25 / 734.25 Output Total 500 / 500 5350 / 5350 825 / 825 Balance -500 / -500 -3900 / -3900 -90.75 / -90.75 Lab / Micro Data 04/16/23 04:51 04/16/23 04:51 Labs: Laboratory Results - last 24 hr 04/15/23 16:41: POC Glucose 120 H 04/15/23 21:08: POC Glucose 223 H 04/16/23 04:51: WBC 3.7 L, RBC 3.18 L, Hgb 8.6 L, Hct 28.1 L, MCV 88.4, MCH 27.0, MCHC 30.6 L, RDW Std Deviation 49.1 H, RDW Coeff of Vlad 15.3 H, Plt Count 144 L, MPV 11.5, Immature Gran % (Auto) 1.600 H, Neut % (Auto) 64.7, Lymph % (Auto) 12.4 L, [place] % (Auto) 13.2 H, Eos % (Auto) 7.8 H, Baso % (Auto) 0.3, Absolute Neuts (auto) 2.4, Absolute Lymphs (auto) 0.46 L, Nucleated RBC % 0, Differential Comment SCANNED, Diff Path Review November, Sodium 141, Potassium 4.6, Chloride 101, Carbon Dioxide 34.0 H, Anion Gap 6, BUN 49 H, Creatinine 2.45 H, Estim Creat Clear Calc 20.60, Est GFR (MDRD) Af Amer 25 L, Est GFR (MDRD) Non-Af 21 L, BUN/Creatinine Ratio 20.0, Glucose 235 H, Calcium 9.0, Free T4 0.85 04/16/23 08:39: POC Glucose 187 H 04/16/23 11:36: POC Glucose 251 H Micro: Microbiology 04/14/23 23:00 Mucosa - Nasopharyngeal Respiratory Panel (PCR) - Final 04/14/23 17:16 Nasal Secretion SARS-CoV-2 Antigen (Rapid) - Final Radiography Diagnostic Testing: Radiology Impression Echocardiogram 04/14/23 21:18 Interpretation Summary Mild concentric left ventricular hypertrophy. The left ventricular ejection fraction is 65 %. Mild mitral annular calcification. The study was technically difficult. Ordering Physician: Karissa Szymanski Referring Physician: ORTIZ WANG Performed By: Mindy Guido RDCS Physical Exam Narrative General: Alert, Oriented x3, Cooperative, No apparent distress HEENT: Atraumatic, PERRLA, EOMI, Normocephalic Oral: Moist Mucosa Neck: Supple, No JVD Lungs: Diminished, Normal air movement, No rhonchi, No wheeze, No rales Cardiovascular: Regular rate, Regular Rhythm, Normal S1, Normal S2, No murmurs Abdomen: Soft, Non Tender, Non-Distended, No Hepato-splenomegaly Extremities: Edema, Capillary Refill Less than 3 Seconds Skin: No rashes, No breakdown Musculoskeletal: No Tenderness to Palpation of Joints or Extremities Neurological: Cranial nerves II-XII grossly intact, Motor Exam 5/5 strength throughout, Sensory exam intact to light touch and pain Psych/Mental Status: Flat Assessment & Plan Assessment/Plan (1) Lower extremity edema: (2) GASTON (acute kidney injury): (3) Hypoxia: (4) Hyperkalemia: (5) Thrombocytopenia: PLAN: Plan 1. Acute pulmonary edema due to acute on chronic HFpEF/diastolic heart failure with associated hypoxia: Patient is being admitted in PCU. Patient is on Lasix drip. Patient feels improvement in symptoms. Patient had significant weight gain. BNP elevated. CT chest initially reviewed and shows bilateral patchy groundglass opacity with a small left pleural effusion most likely due to pulmonary edema. Heart failure core measures including intake and output, fluid restriction less than 1500 mL, daily weight monitoring, kidney and electrolytes monitoring. ESR elevated. Respiratory panel and SARS Cov rapid antigens are negative. I do not think infectious cause or pneumonia responsible for acute pulmonary edema. Recent lower extremity venous duplex were negative. Modified Wells criteria for PE is 0. Therefore I do not think patient needs VQ scan further to rule out PE 04/16/2023: We will consult pulmonology her BNP was only very slightly elevated and her echo demonstrated a normal EF, unfortunately her Lasix drip had to be discontinued given a rise in her renal function. Her GASTON could also explain the slight elevation in her BNP not 100% certain that this is heart failure 2. GASTON on CKD stage IIIa possible due to heart failure exacerbation: -Baseline serum creatinine appears to be between 1 and 1.3. Lasix drip to achieve effective heart pumping function in regards to Starling curve -Current serum creatinine is 1.87. Repeat creatinine stable today. Patient does not have hemoptysis. Monitor kidney function. UA shows no hematuria. 3. Hyperkalemia -Mild at 5.3 -Hold home potassium supplement. Repeat potassium is normal. 4. DM-2 -Hold home oral agents -Continue home basal insulin -SSI -Accu-Cheks as ordered -Cardiac/carb controlled diet 5. Hypothyroidism 04/15-TSH 36.8 high. Free T4 ordered for tomorrow AM. Levothyroxine dose increased. 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 -Eyedrops -Will need to clarify with home med rec for other eyedrops as these have recently been prescribed and patient does not have them on her list Diabetic neuropathy -Continue home gabapentin 200 3 times daily -Hold 400 mg dosing at nightly due to renal dysfunction Hyperlipidemia -Continue home fenofibrate -Continue home atorvastatin SACHIN -Patient noncompliant with CPAP due to intolerance -Wears nocturnal oxygen 3 L Morbid obesity -BMI is 49.5 -Recommend weight loss -Complicates treatment, prognosis, outcomes Depression -Continue home escitalopram DVT prophylaxis -Heparin 3 times daily with renal dysfunction Charges/Coding Visit Charges Inpatient E&M: 16882 Subs Hosp L2
[2023-04-16 13:08] LABS: Anti-Centromere B Ab <0.2 AI (0.0-0.9); Anti-Chromatin <0.2 AI (0.0-0.9); Anti-Jo <0.2 AI (0.0-0.9); Anti-Scleroderma-70 AB <0.2 AI (0.0-0.9); Anti-dsDNA Ab <1 IU/mL (0-9); RNP Ab <0.2 AI (0.0-0.9); SJOGREN'S Anti-SS-A test < 0.2 AI (0.0-0.9); SJOGREN'S Anti-SS-B test < 0.2 AI (0.0-0.9); Smith Ab <0.2 AI (0.0-0.9)
[2023-04-16 15:09] LABS: Cytoplasmic Ab (C-ANCA) <1:20 titer (Neg:<1:20); Perinuclear Ab (P-ANCA) <1:20 titer (Neg:<1:20)
--- NOTE | 2023-04-16 15:32 | EX.PCM.CONCC ---
Assessment & Plan Assessment/Plan (1) Hypoxia: (2) Morbid (severe) obesity due to excess calories: (3) Diabetes mellitus with diabetic polyneuropathy: (4) Thrombocytopenia: PLAN: Plan RECOMMENDATIONS: 1. Consider decrease in diuretic therapy 2. Initiate empiric steroids 3. Encourage incentive spirometer and out of bed as tolerated 4. Outpatient complete PFTs 5. Will likely need repeat imaging in 4 to 6 weeks IMPRESSIONS: 1. Acute hypoxic respiratory insufficiency Exact etiology is unclear at this time. Pattern is consistent with congestive heart failure, but BNP is only 100 and echocardiogram is relatively unremarkable. Patient does have a significant eosinophilia noted, so eosinophilic pneumonia, vasculitis or asthma would be a consideration. Patient does have a negative ANCA and LAINE. Patient does not have a travel history to suggest parasitic infection such as schistosomiasis. Unfortunately, patient cannot have PFTs at this time, so will empirically initiate on steroid therapy. Unfortunately, this will likely exacerbate patient's underlying diabetes, so glargine needs to be changed. Increase glargine 2. Acute kidney injury on CKD stage IIIa Clinical suspicion for Lasix as an etiology. No indication for renal replacement therapy. We will decrease diuretic therapy and continue to monitor. 3. 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 Unfortunately, will initiate steroids secondary problem #1. We will increase glargine to compensate. Patient may require additional sliding scale insulin. 4. Hypothyroidism/GERD/gastroparesis/restless legs/untreated SACHIN/hyperlipidemia/morbid obesity/decreased mobility/depression Complicates care, management, recovery and prognosis. Okay to continue with baseline medications. We will have to address patient's SACHIN as an outpatient and try to reinitiate therapy. Did stressed to the patient that control of SACHIN could help with her depression and restless legs. Patient is on appropriate DVT prophylaxis. HPI Consult Data Date of Consult: 04/16/23 HPI Narrative HPI Narrative: TOBIN BIGGS is a 63 F, with past medical history listed below, who presents to [facility] on 04/14/2023 secondary to progressive shortness of breath. Patient had been complaining of worsening lower extremity edema and pain secondary to distention along with orthopnea and a dry cough. Patient had denied any chest pain at that time. Patient denied any bleeding complications. Patient states she has been wearing 3 L nasal cannula at night secondary to an inability to tolerate CPAP. In the ER, patient was afebrile and normotensive, but requiring 4 L nasal cannula to maintain saturations. Laboratory data showed a white blood cell count of 5.1 with 5.3% eosinophils. Patient also noted to have a hemoglobin of 8.3 and platelets of 134. Chemistry showed a bicarbonate of 28 with a creatinine of 1.87 and a glucose of 152. BNP was only 100. Patient had a nonspecific perihilar interstitial infiltrate noted on chest x-ray. EKG did not show any interval changes. Patient did get some IV Lasix and was admitted to telemetry for further evaluation. Since being hospitalized, patient has been placed on a Lasix drip. Patient has had good diuresis, but renal function was worse. Patient is still requiring nasal cannula oxygen to maintain saturations, so a pulmonary consult was obtained. Patient states that she has never been a smoker. Patient states that she has not seen a net mvc developer or had PFTs previously. Patient was referred to [facility] as an outpatient, but appointment was in June. 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 Patient does not vape or have any other environmental exposures. Patient states she has been compliant with her Lasix therapy at the retirement. Patient does develop intermittent rashes on her backside and in her folds. Patient has not reported any change in joint pain. Patient does have a history of obstructive sleep apnea, but was not able to tolerate CPAP therapy. Patient states that she has used supplemental oxygen with sleeping, but recently increased it to 4 L/min secondary to concerns for morning headaches. Patient has had some nasal dryness, but no keo epistaxis has been reported. Patient is unclear on how severe her sleep apnea is. Review of systems otherwise negative from a constitutional, HEENT, respiratory, cardiovascular, GI, genitourinary, musculoskeletal, skin, neurologic, psychiatric and hematologic system unless stated above. [facility] Medical History Anxiety and depression Chronic acquired lymphedema Chronic anemia CKD (chronic kidney disease), stage III Diabetes mellitus, type 2 HLD (hyperlipidemia) HTN (hypertension) Hypothyroidism Hypoxia Morbid obesity SACHIN (obstructive sleep apnea) Retinal hemorrhage Home Medications atorvastatin 10 mg tablet 10 mg PO DAILY cholesterol 09/24/22 [History Last Taken 04/13/23] escitalopram oxalate 10 mg tablet 10 mg PO DAILY anxiety 09/24/22 [History Last Taken 04/13/23] fenofibrate nanocrystallized 48 mg tablet (Tricor) 48 mg PO DAILY cholesterol 09/24/22 [History Last Taken 04/13/23] pantoprazole 40 mg tablet,delayed release 40 mg PO DAILY HEARTBURN 09/24/22 [History Last Taken 11/15/22] levofloxacin 750 mg tablet 750 mg PO DAILY SEE PCP #7 tabs 11/18/22 [Rx Last Taken Unknown] aspirin 81 mg tablet,delayed release (Adult Low Dose Aspirin) 81 mg PO DAILY 03/05/23 [History Last Taken Unknown] exenatide microspheres 2 mg subcutaneous extended release suspension mg subcut 03/05/23 [History Last Taken Unknown] furosemide 20 mg tablet (Lasix) 20 mg PO DAILY EDEMA 03/05/23 [History Last Taken 04/13/23] gabapentin 100 mg capsule 200 mg PO BID PAIN 03/05/23 [History Last Taken 04/13/23] glipizide 10 mg tablet 10 mg PO BID 03/05/23 [History Last Taken Unknown] insulin glargine 100 unit/mL subcutaneous solution 45 unit subcut QHS 03/05/23 [History Last Taken Unknown] levothyroxine 150 mcg tablet 150 mcg PO DAILY@0600 SEE PCP 03/05/23 [History Last Taken Unknown] metformin 1,000 mg tablet 1,000 mg PO BID 03/05/23 [History Last Taken Unknown] ropinirole 4 mg tablet 4 mg PO QHS 03/05/23 [History Last Taken Unknown] sitagliptin phosphate 100 mg tablet (Januvia) 100 mg PO DAILY 03/05/23 [History Last Taken Unknown] triamcinolone acetonide 0.1 % topical cream 1 applic topical TID 03/05/23 [History Last Taken Unknown] dulaglutide 0.75 mg/0.5 mL subcutaneous pen injector (Trulicity) mg subcut 04/14/23 [History Last Taken Unknown] fluconazole 100 mg tablet 150 mg PO QWEEK SEE PCP 04/14/23 [History Last Taken Unknown] gabapentin 400 mg capsule 400 mg PO QHS SEE PCP 04/14/23 [History Last Taken 04/13/23] insulin glargine 100 unit/mL (3 mL) subcutaneous pen (Lantus Solostar U-100 Insulin) 49 unit subcut QHS SEE PCP 04/14/23 [History Last Taken Unknown] insulin lispro 100 unit/mL subcutaneous pen 1 sliding scale dose subcut TIDCM SEE PCP 04/14/23 [History Last Taken Unknown] metoclopramide HCl 5 mg tablet 5 mg PO BID SEE PCP 04/14/23 [History Last Taken Unknown] omega 6-axb-rjd-fish oil 300 mg-1,000 mg capsule (Fish Oil) 1 cap PO BID VITAMIN 04/14/23 [History Last Taken 04/13/23] pen needle, diabetic 31 gauge x 1/4 (Easy Touch) 04/14/23 [History Last Taken Unknown] potassium chloride 10 mEq capsule,extended release 10 meq PO DAILY SEE PCP 04/14/23 [History Last Taken Unknown] artifi.tears(hypromellose)(PF) 0.3 % eye drops 1 drp EACH EYE Q2H PRN retinal hemmorage 04/15/23 [History Last Taken Unknown] Allergy/AdvReac Type Severity Reaction Status Date / Time No Known Allergies Allergy Verified 04/14/23 16:28 Family History Mother Heart disease Hypertension Diabetes Father Prostate cancer Surgical History H/O cataract removal with insertion of prosthetic lens History of cholecystectomy History of surgery on lower extremity Social History housing: retirement Smoking Status: Never smoker alcohol intake: never substance use type: does not use ROS ROS Narrative See HPI Physical Exam Const alert, oriented x3 and well nourished; Negative for no apparent distress, average body habitus or healthy appearing General Appearance: cooperative; Negative for ill appearing HEENT normocephalic, head/scalp atraumatic, hearing grossly normal bilaterally and moist oral mucous membranes HEENT Narrative: Mallampati 4, no thrush Eyes PERRL and EOMs intact bilaterally Eyes Narrative: Conjunctiva are mildly pale bilaterally, scleral injection on the right with conjunctival hemorrhage on the left Neck no lymphadenopathy and supple General: trachea midline Resp Resp Narrative: No conversational dyspnea noted Auscultation: rales and diminished lung sounds; Negative for rhonchi or wheezes Cardio regular rate, regular rhythm, S1 normal heart sound, S2 normal heart sound, no murmurs, no rub, no gallops and no clicks GI normal to inspection, nondistended, normoactive bowel sounds, soft to palpation and non-tender GI Narrative: Large protuberant abdomen Extremity General Extremity: edema; Negative for clubbing Skin Skin Narrative: Eczema appearing rash bilateral lower extremities and irritation in the skin folds Neuro oriented x3, CN's II-XII intact bilaterally and moves all extremities Neuro Narrative: Proximal muscle weakness noted Speech: speech normal Psych cooperative and affect normal Medical Records Data Attestation: I reviewed the patient's medical records Lab / Micro Data Attestation: I reviewed the patient's lab results. 04/16/23 04:51 04/16/23 04:51 Labs: Laboratory Results - last 24 hr 04/14/23 21:26: CIRILO-1 Antibody <0.2, SS-A/Ro IgG Antibody < 0.2, SS-B/La IgG Antibody < 0.2, Sm (Yancey) Antibody <0.2, STRINGED INSTRUMENT REPAIRER Antibody <0.2, Scl-70 Scleroderma Ab <0.2, Double Strand DNA Ab <1, Centromere B Antibody <0.2 04/15/23 05:25: c-ANCA Antibody <1:20, Atypical p-ANCA <1:20, p-ANCA Antibody <1:20 04/15/23 16:41: POC Glucose 120 H 04/15/23 21:08: POC Glucose 223 H 04/16/23 04:51: WBC 3.7 L, RBC 3.18 L, Hgb 8.6 L, Hct 28.1 L, MCV 88.4, MCH 27.0, MCHC 30.6 L, RDW Std Deviation 49.1 H, RDW Coeff of Vlad 15.3 H, Plt Count 144 L, MPV 11.5, Immature Gran % (Auto) 1.600 H, Neut % (Auto) 64.7, Lymph % (Auto) 12.4 L, [place] % (Auto) 13.2 H, Eos % (Auto) 7.8 H, Baso % (Auto) 0.3, Absolute Neuts (auto) 2.4, Absolute Lymphs (auto) 0.46 L, Nucleated RBC % 0, Differential Comment SCANNED, Diff Path Review May foll, Sodium 141, Potassium 4.6, Chloride 101, Carbon Dioxide 34.0 H, Anion Gap 6, BUN 49 H, Creatinine 2.45 H, Estim Creat Clear Calc 20.60, Est GFR (MDRD) Af Amer 25 L, Est GFR (MDRD) Non-Af 21 L, BUN/Creatinine Ratio 20.0, Glucose 235 H, Calcium 9.0, Free T4 0.85 04/16/23 08:39: POC Glucose 187 H 04/16/23 11:36: POC Glucose 251 H Charges/Coding Visit Charges Inpatient E&M: 49478 Init Hosp L3
[2023-04-16 15:40] LABS: Pathologist Review Reviewed
[2023-04-16 16:41] LABS: Bedside Glucose 133 mg/dL (74-106)
[2023-04-16] MEDS: Methylprednisolone Sod Succ 40 MG/ML VIAL IV (17:35)
[2023-04-16] MEDS: prednisoLONE eye drops (5 mL) 1 DROP OPTH.BTL 1 DRP EACH EYE ×2 (18:29→21:34)
[2023-04-16] MEDS: Insulin Glargine-YFGN 100 UNIT/ML Pen 40 UNIT SC (21:29)
[2023-04-16] MEDS: Pramipexole Di-HCl 0.5 MG Tablet 1.5 MG PO (21:33)
[2023-04-16] MEDS: Atorvastatin Calcium 10 MG Tablet PO (21:33)
[2023-04-16 23:11] LABS: Bedside Glucose 261 mg/dL (74-106)
[2023-04-17] VITALS (9 sets, daily range): BP systolic 138–185; BP diastolic 58–74; PULSE 58–79; RESP 16–18; TEMP 35.9–36.8; O2SAT 94–97; BMI 47.2
[2023-04-17] MEDS: Methylprednisolone Sod Succ 40 MG/ML VIAL IV ×5 (00:13→21:22)
[2023-04-17] MEDS: Glycerin/Hypromellose/PEG400 15 ml Bottle 1 DRP EACH EYE ×11 (00:13→21:16)
[2023-04-17] MEDS: 0.9% Saline Lock 10 ML Syringe IV ×4 (00:28→18:33)
[2023-04-17] MEDS: Acetaminophen 325 MG Tablet 650 MG PO ×2 (03:57→10:07)
[2023-04-17] MEDS: Gabapentin 100 MG Capsule 200 MG PO ×3 (05:02→21:24)
[2023-04-17] MEDS: Levothyroxine 175 MCG Tablet PO (05:03)
[2023-04-17] MEDS: Heparin Injection (Vial) 5,000 UNIT/ML VIAL 5000 UNIT SC ×3 (05:03→21:17)
[2023-04-17] MEDS: Miconazole Nitrate 43 GM Bottle 1 APPLIC TOPICAL ×3 (05:03→21:16)
[2023-04-17 06:12] LABS: Absolute Lymphocyte Count 0.65 X10^3/uL (0.83-4.51); Absolute Neutrophil Count 3.4 X10^3/uL (2.0-7.7); Basophil# 0.02 X10^3/uL; Basophil% 0.5 % (0-1); Eosinophil# 0.05 X10^3/uL; Eosinophils% 1.1 % (0-5); Hematocrit 28.5 % (37-47); Hemoglobin 8.7 g/dL (12.0-15.0); Lymphocyte # 0.65 X10^3/ul (0.83-4.51); Lymphocyte % 14.8 % (19-41); Mean Corp Hgb Conc 30.5 g/dL (32-36); Mean Corpuscular Hgb 26.5 pg (27.0-32.0); Mean Corpuscular Volume 86.9 fL (81-99); Mean Platelet Vol. 11.6 fl (6.2-12.0); Monocyte# 0.16 X10^3/uL; Monocyte% 3.7 % (0-10); NRBC Flagged by Analyzer 0 % (0-5); Neutrophil # 3.35 X10^3/uL (2.7-7.7); Neutrophil % 76.5 % (47-70); Platelet Count 155 K/mm3 (150-450); RBC Distribution Width CV 14.9 % (11.6-14.6); RBC Distribution Width SD 47.8 fl (35.1-43.9); Red Blood Count 3.28 M/mm3 (4.2-5.4); White Blood Count 4.4 K/mm3 (4.4-11.0)
[2023-04-17] MEDS: Insulin Lispro 100 UNIT/ML INSULN.PEN SC ×4 (06:23→21:18)
[2023-04-17 06:38] LABS: Anion Gap 5 (5-15); BUN 50 mg/dL (7-18); BUN/Creat Ratio 19.7 RATIO (10-20); Calcium,Total 8.9 mg/dL (8.5-10.1); Chloride 100 mmol/L (98-107); Creatinine, Serum 2.54 mg/dL (0.55-1.02); EST Glomerular Filtration Rate 20 mL/min (>60); Est Glom Filt Rate - Afr Amer 24 mL/min (>60); Estimated Creatinine Clearance 19.87 ml/min; Glucose 266 mg/dL (74-106); Potassium 5.2 mmol/L (3.5-5.1); Sodium Level 137 mmol/L (136-145)
[2023-04-17 06:43] LABS: Bedside Glucose 222 mg/dL (74-106)
[2023-04-17 08:28] LABS: Procalcitonin 0.15 ng/mL (0.00-0.09)
--- NOTE | 2023-04-17 10:06 | PCM.PN.INT ---
Assessment & Plan Assessment/Plan (1) Hypoxia: (2) Morbid (severe) obesity due to excess calories: (3) Diabetes mellitus with diabetic polyneuropathy: (4) Thrombocytopenia: PLAN: Plan RECOMMENDATIONS: 1. Consider decrease in diuretic therapy 2. Continue empiric steroids 3. Encourage incentive spirometer and out of bed as tolerated 4. Outpatient complete PFTs 5. Will likely need repeat imaging in 4 to 6 weeks IMPRESSIONS: 1. Acute hypoxic respiratory insufficiency Exact etiology is unclear at this time. Pattern is consistent with congestive heart failure, but BNP is only 100 and echocardiogram is relatively unremarkable. Patient does have a significant eosinophilia noted, so eosinophilic pneumonia, vasculitis or asthma would be a consideration. Patient does have a negative ANCA and LAINE. Patient does not have a travel history to suggest parasitic infection such as schistosomiasis. Unfortunately, patient cannot have PFTs at this time, so empirically initiated on steroid therapy. Await clinical response in the next 24 to 48 hours 2. Acute kidney injury on CKD stage IIIa Clinical suspicion for Lasix as an etiology. No indication for renal replacement therapy. Continue to monitor renal function. Patient does have some hyperkalemia, but no associated changes 3. 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 Unfortunately, will initiate steroids secondary problem #1. Patient appears to be responding well to glargine changes. Patient may require additional sliding scale insulin. 4. Hypothyroidism/GERD/gastroparesis/restless legs/untreated SACHIN/hyperlipidemia/morbid obesity/decreased mobility/depression Complicates care, management, recovery and prognosis. Okay to continue with baseline medications. We will have to address patient's SACHIN as an outpatient and try to reinitiate therapy. Did stressed to the patient that control of SACHIN could help with her depression and restless legs. Patient is on appropriate DVT prophylaxis. Subjective Subjective Patient did okay overnight. No acute issues were reported. Patient is reporting a headache and sore throat this morning. Patient did have humidification added to her oxygen, but does not feel that this was helpful. Objective Data Objective Data Vital Signs: Vital Signs Temp Pulse Resp BP Pulse Ox O2 Del Method O2 Flow Rate 36.8 C 79 18 147/74 H 95 Nasal Cannula 3 04/17/23 03:53 04/17/23 03:53 04/17/23 03:53 04/17/23 03:53 04/17/23 07:40 04/17/23 07:40 04/17/23 07:40 Oxygen Flow Rate (L/min) 3 Oxygen Delivery Method Nasal Cannula Weight: 128.8 kg Body Mass Index (BMI) 47.2 Intake & Output: Intake and Output for Last 24 Hours 04/15/23 04/16/23 04/17/23 23:59 23:59 23:59 Intake Total 1450 / 1450 1334.25 / 1334.25 Output Total 4700 / 4700 1974 550 / 550 Balance -3250 / -3250 -640.75 / -640.75 -550 / -550 Lab / Micro Data Attestation: I reviewed the patient's lab results. 04/17/23 05:46 04/17/23 05:46 Labs: Laboratory Results - last 24 hr 04/14/23 21:26: CIRILO-1 Antibody <0.2, SS-A/Ro IgG Antibody < 0.2, SS-B/La IgG Antibody < 0.2, Sm (Yancey) Antibody <0.2, DIRECTOR MEDICAL WRITING Antibody <0.2, Scl-70 Scleroderma Ab <0.2, Double Strand DNA Ab <1, Centromere B Antibody <0.2 04/15/23 05:25: c-ANCA Antibody <1:20, Atypical p-ANCA <1:20, p-ANCA Antibody <1:20 04/16/23 04:51: Diff Path Review Reviewed 04/16/23 11:36: POC Glucose 251 H 04/16/23 16:19: POC Glucose 133 H 04/16/23 21:27: POC Glucose 261 H 04/17/23 05:46: WBC 4.4, RBC 3.28 L, Hgb 8.7 L, Hct 28.5 L, MCV 86.9, MCH 26.5 L, MCHC 30.5 L, RDW Std Deviation 47.8 H, RDW Coeff of Vlad 14.9 H, Plt Count 155, MPV 11.6, Immature Gran % (Auto) 3.400 H, Neut % (Auto) 76.5 H, Lymph % (Auto) 14.8 L, [place] % (Auto) 3.7, Eos % (Auto) 1.1, Baso % (Auto) 0.5, Absolute Neuts (auto) 3.4, Absolute Lymphs (auto) 0.65 L, Nucleated RBC % 0, Sodium 137, Potassium 5.2 H, Chloride 100, Carbon Dioxide 32.0, Anion Gap 5, BUN 50 H, Creatinine 2.54 H, Estim Creat Clear Calc 19.87, Est GFR (MDRD) Af Amer 24 L, Est GFR (MDRD) Non-Af 20 L, BUN/Creatinine Ratio 19.7, Glucose 266 H, Calcium 8.9, Procalcitonin 0.15 H 04/17/23 06:21: POC Glucose 222 H Micro: Microbiology 04/14/23 23:00 Mucosa - Nasopharyngeal Respiratory Panel (PCR) - Final 04/14/23 17:16 Nasal Secretion SARS-CoV-2 Antigen (Rapid) - Final Physical Exam Const alert, oriented x3 and well nourished; Negative for no apparent distress, average body habitus or healthy appearing General Appearance: cooperative; Negative for ill appearing HEENT normocephalic, head/scalp atraumatic, hearing grossly normal bilaterally and moist oral mucous membranes Eyes PERRL and EOMs intact bilaterally Eyes Narrative: Conjunctiva are mildly pale bilaterally, scleral injection on the right with conjunctival hemorrhage on the left Neck no lymphadenopathy and supple General: trachea midline Resp Resp Narrative: No conversational dyspnea noted Auscultation: rales and diminished lung sounds; Negative for rhonchi or wheezes Cardio regular rate, regular rhythm, S1 normal heart sound, S2 normal heart sound, no murmurs, no rub, no gallops and no clicks GI normal to inspection, nondistended, normoactive bowel sounds, soft to palpation and non-tender GI Narrative: Large protuberant abdomen Extremity General Extremity: edema; Negative for clubbing Skin Skin Narrative: Eczema appearing rash bilateral lower extremities and irritation in the skin folds Neuro oriented x3, CN's II-XII intact bilaterally and moves all extremities Neuro Narrative: Proximal muscle weakness noted Speech: speech normal Psych cooperative and affect normal Charges/Coding Visit Charges Inpatient E&M: 01544 Subs Hosp L2
[2023-04-17] MEDS: Metoclopramide 5 MG TABLET PO ×2 (10:08→21:22)
[2023-04-17] MEDS: Escitalopram Oxalate 10 MG Tablet PO (10:08)
[2023-04-17] MEDS: prednisoLONE eye drops (5 mL) 1 DROP OPTH.BTL 1 DRP EACH EYE ×3 (10:08→18:32)
[2023-04-17] MEDS: Fenofibrate 48 MG Tablet PO (10:08)
[2023-04-17] MEDS: Pantoprazole Sodium 40 MG Tablet PO (10:08)
[2023-04-17] MEDS: Insulin Glargine-YFGN 100 UNIT/ML Pen 40 UNIT SC (10:09)
--- NOTE | 2023-04-17 12:00 | PN.HOSP_ITS ---
Subjective Subjective No issues overnight, today she relays that she has been having difficulty gripping with her left hand for the last several weeks we will obtain an MRI Objective Data Objective Data Vital Signs: Vital Signs Temp Pulse Resp BP Pulse Ox O2 Del Method O2 Flow Rate 97.8 F 72 18 147/68 H 94 Nasal Cannula 3 04/17/23 10:00 04/17/23 10:00 04/17/23 10:00 04/17/23 10:00 04/17/23 10:00 04/17/23 10:00 04/17/23 10:00 Oxygen Flow Rate (L/min) 3 Oxygen Delivery Method Nasal Cannula Weight: 283 lb 15.286 oz Body Mass Index (BMI) 47.2 Intake & Output: Intake and Output for Last 24 Hours 04/16/23 04/17/23 04/18/23 03:59 03:59 03:59 Intake Total 1450 / 1450 1334.25 / 1334.25 Output Total 5350 / 5350 825 / 825 550 / 550 Balance -3900 / -3900 509.25 / 509.25 -550 / -550 Lab / Micro Data 04/17/23 05:46 04/17/23 05:46 Labs: Laboratory Results - last 24 hr 04/14/23 21:26: CIRILO-1 Antibody <0.2, SS-A/Ro IgG Antibody < 0.2, SS-B/La IgG Antibody < 0.2, Sm (Yancey) Antibody <0.2, CAMPAIGN CONSULTANT Antibody <0.2, Scl-70 Scleroderma Ab <0.2, Double Strand DNA Ab <1, Centromere B Antibody <0.2 04/15/23 05:25: c-ANCA Antibody <1:20, Atypical p-ANCA <1:20, p-ANCA Antibody <1:20 04/16/23 04:51: Diff Path Review Reviewed 04/16/23 11:36: POC Glucose 251 H 04/16/23 16:19: POC Glucose 133 H 04/16/23 21:27: POC Glucose 261 H 04/17/23 05:46: WBC 4.4, RBC 3.28 L, Hgb 8.7 L, Hct 28.5 L, MCV 86.9, MCH 26.5 L , MCHC 30.5 L, RDW Std Deviation 47.8 H, RDW Coeff of Vlad 14.9 H, Plt Count 155, MPV 11.6, Immature Gran % (Auto) 3.400 H, Neut % (Auto) 76.5 H, Lymph % (Auto) 14.8 L, [place] % (Auto) 3.7, Eos % (Auto) 1.1, Baso % (Auto) 0.5, Absolute Neuts (auto) 3.4, Absolute Lymphs (auto) 0.65 L, Nucleated RBC % 0, Sodium 137, Potassium 5.2 H, Chloride 100, Carbon Dioxide 32.0, Anion Gap 5, BUN 50 H, Creatinine 2.54 H, Estim Creat Clear Calc 19.87, Est GFR (MDRD) Af Amer 24 L, Est GFR (MDRD) Non-Af 20 L, BUN/Creatinine Ratio 19.7, Glucose 266 H, Calcium 8.9, Procalcitonin 0.15 H 04/17/23 06:21: POC Glucose 222 H Micro: Microbiology 04/14/23 23:00 Mucosa - Nasopharyngeal Respiratory Panel (PCR) - Final 04/14/23 17:16 Nasal Secretion SARS-CoV-2 Antigen (Rapid) - Final Physical Exam Narrative General: Alert, Oriented x3, Cooperative, No apparent distress HEENT: Atraumatic, PERRLA, EOMI, Normocephalic Oral: Moist Mucosa Neck: Supple, No JVD Lungs: Diminished, Normal air movement, No rhonchi, No wheeze, No rales Cardiovascular: Regular rate, Regular Rhythm, Normal S1, Normal S2, No murmurs Abdomen: Soft, Non Tender, Non-Distended, No Hepato-splenomegaly Extremities: Edema, Capillary Refill Less than 3 Seconds Skin: No rashes, No breakdown Musculoskeletal: No Tenderness to Palpation of Joints or Extremities Neurological: Cranial nerves II-XII grossly intact, Motor Exam 5/5 strength throughout, Sensory exam intact to light touch and pain Psych/Mental Status: Flat Assessment & Plan Assessment/Plan (1) Lower extremity edema: (2) GASTON (acute kidney injury): (3) Hypoxia: (4) Hyperkalemia: (5) Thrombocytopenia: PLAN: Plan 1. Eosinophilic pneumonia with hypoxia: Patient is being admitted in PCU. Patient is on Lasix drip. Patient feels improvement in symptoms. Patient had significant weight gain. BNP elevated. CT chest initially reviewed and shows bilateral patchy groundglass opacity with a small left pleural effusion most likely due to pulmonary edema. Heart failure core measures including intake and output, fluid restriction less than 1500 mL, daily weight monitoring, kidney and electrolytes monitoring. ESR elevated. Respiratory panel and SARS Cov rapid antigens are negative. I do not think infectious cause or pneumonia responsible for acute pulmonary edema. Recent lower extremity venous duplex were negative. Modified Wells criteria for PE is 0. Therefore I do not think patient needs VQ scan further to rule out PE 04/16/2023: We will consult pulmonology her BNP was only very slightly elevated and her echo demonstrated a normal EF, unfortunately her Lasix drip had to be discontinued given a rise in her renal function. Her GASTON could also explain the slight elevation in her BNP not 100% certain that this is heart failure 04/17/2023: Peripheral eosinophils were elevated and she was started on steroids and she has some subjective improvement although she still on her baseline o xygen requirements of 2 to 3 L nasal cannula. Renal function is still climbing slightly will monitor 2. GASTON on CKD stage IIIa possible due to heart failure exacerbation: -Baseline serum creatinine appears to be between 1 and 1.3. Lasix drip to achieve effective heart pumping function in regards to Starling curve -Current serum creatinine is 1.87. Repeat creatinine stable today. Patient does not have hemoptysis. Monitor kidney function. UA shows no hematuria. 04/17/2023: She was on Lasix drip with caused her renal function to rise. This was discontinued yesterday we will continue to monitor renal function 3. Hyperkalemia -Mild at 5.3 -Hold home potassium supplement. Repeat potassium is normal. 4. DM-2 -Hold home oral agents -Continue home basal insulin -SSI -Accu-Cheks as ordered -Cardiac/carb controlled diet 5. Hypothyroidism 04/15-TSH 36.8 high. Free T4 ordered for tomorrow AM. Levothyroxine dose increased. 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 -Eyedrops -Will need to clarify with home med rec for other eyedrops as these have recently been prescribed and patient does not have them on her list Diabetic neuropathy -Continue home gabapentin 200 3 times daily -Hold 400 mg dosing at nightly due to renal dysfunction Hyperlipidemia -Continue home fenofibrate -Continue home atorvastatin SACHIN -Patient noncompliant with CPAP due to intolerance -Wears nocturnal oxygen 3 L Morbid obesity -BMI is 49.5 -Recommend weight loss -Complicates treatment, prognosis, outcomes Depression -Continue home escitalopram DVT: Heparin Charges/Coding Visit Charges Inpatient E&M: 23741 Subs Hosp L2
[2023-04-17 12:02] LABS: Bedside Glucose 310 mg/dL (74-106)
--- NOTE | 2023-04-17 12:04 | MRI_ITS ---
STUDY: MRI BRAIN WITHOUT CONTRAST REASON FOR EXAM: Female, 63 years old. left hand weakness, bilateral leg weakness/numbness TECHNIQUE: Standardized multiplanar fat and water weighted pulse sequences were obtained. COMPARISON: September 25, 2022 FINDINGS: Mild atrophy and moderate periventricular white matter ischemic change without mass effect or restricted diffusion. Normal bilateral basal ganglia. Normal thalami. There is no extra-axial fluid accumulation. Normal flow voids within the major intracranial circulation suggesting patency by spin echo criteria. Normal sella turcica, pituitary gland, infundibular stalk, optic chiasm and hypothalamus. Normal tectal plate and pineal gland. Normal midbrain, and medulla. Chronic ischemic changes within the [place]. Normal cerebellum. Normal basal cisterns. Normal bilateral temporal bones. Normal bilateral internal auditory canals. Postsurgical changes of the orbits.. Normal visualized paranasal sinuses. Normal calvarium and skull base. Normal visualized soft tissue structures. Normal visualized upper cervical spine. There is no significant change since prior exam MRI/Brain without Contrast IMPRESSION: Moderate periventricular white matter ischemic changes without evidence for acute infarct. Chronic ischemic changes within the [place] Electronically Signed: Kee Resendiz MD at 16:36 EDT ,
[2023-04-17 17:17] LABS: Bedside Glucose 395 mg/dL (74-106)
[2023-04-17] MEDS: DIFLUPREDNATE 1 DRP OPTH.BTL OPHTHALMIC (21:17)
[2023-04-17] MEDS: Insulin Glargine-YFGN 100 UNIT/ML Pen 45 UNIT SC (21:20)
[2023-04-17] MEDS: Atorvastatin Calcium 10 MG Tablet PO (21:21)
[2023-04-17] MEDS: Pramipexole Di-HCl 0.5 MG Tablet 1.5 MG PO (21:21)
[2023-04-17 23:35] LABS: Bedside Glucose 363 mg/dL (74-106)
[2023-04-18] VITALS (9 sets, daily range): BP systolic 125–192; BP diastolic 61–83; PULSE 61–81; RESP 16–18; TEMP 36.3–36.7; O2SAT 90–97; BMI 45.3
[2023-04-18] MEDS: Glycerin/Hypromellose/PEG400 15 ml Bottle 1 DRP EACH EYE ×6 (00:41→11:38)
[2023-04-18] MEDS: Acetaminophen 325 MG Tablet 650 MG PO ×2 (02:09→09:32)
[2023-04-18] MEDS: Heparin Injection (Vial) 5,000 UNIT/ML VIAL 5000 UNIT SC (05:40)
[2023-04-18] MEDS: Gabapentin 100 MG Capsule 200 MG PO (05:40)
[2023-04-18] MEDS: Methylprednisolone Sod Succ 40 MG/ML VIAL IV ×2 (05:41→11:39)
[2023-04-18] MEDS: Miconazole Nitrate 43 GM Bottle 1 APPLIC TOPICAL (05:41)
[2023-04-18] MEDS: Levothyroxine 175 MCG Tablet PO (05:41)
[2023-04-18] MEDS: Insulin Lispro 100 UNIT/ML INSULN.PEN SC ×2 (05:43→11:37)
[2023-04-18 05:47] LABS: Anion Gap 4 (5-15); BUN 48 mg/dL (7-18); BUN/Creat Ratio 24.1 RATIO (10-20); Calcium,Total 9.2 mg/dL (8.5-10.1); Chloride 101 mmol/L (98-107); Creatinine, Serum 1.99 mg/dL (0.55-1.02); EST Glomerular Filtration Rate 27 mL/min (>60); Est Glom Filt Rate - Afr Amer 32 mL/min (>60); Estimated Creatinine Clearance 25.36 ml/min; Glucose 370 mg/dL (74-106); Potassium 4.6 mmol/L (3.5-5.1); Sodium Level 137 mmol/L (136-145)
[2023-04-18 06:53] LABS: Bedside Glucose 318 mg/dL (74-106)
--- NOTE | 2023-04-18 08:47 | PCM.PN.INT ---
Assessment & Plan Assessment/Plan (1) Hypoxia: (2) Morbid (severe) obesity due to excess calories: (3) Diabetes mellitus with diabetic polyneuropathy: (4) Thrombocytopenia: PLAN: Plan RECOMMENDATIONS: 1. Reinitiate baseline diuretic therapy 2. Continue empiric steroids 3. Encourage incentive spirometer and out of bed as tolerated 4. Check chest x-ray in a.m. 5. Increase insulin therapy IMPRESSIONS: 1. Acute hypoxic respiratory insufficiency Exact etiology is unclear at this time. Pattern is consistent with congestive heart failure, but BNP is only 100 and echocardiogram is relatively unremarkable. Patient does have a significant eosinophilia noted, so eosinophilic pneumonia, vasculitis or asthma would be a consideration. Patient does have a negative ANCA and LAINE. Patient does not have a travel history to suggest parasitic infection such as schistosomiasis. Unfortunately, patient cannot have PFTs at this time, so empirically initiated on steroid therapy. Patient encouraged to get out of bed and exert to see response to steroids. We will get a chest x-ray in the morning to evaluate for pulmonary infiltrates. 2. Acute kidney injury on CKD stage IIIa Improving. Clinical suspicion for Lasix as an etiology. No indication for renal replacement therapy. Continue to monitor renal function. Patient does have some hyperkalemia, but no associated changes. We will reinitiate baseline diuretic therapy 3. 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 Unfortunately, will initiate steroids secondary problem #1. Patient appears to be responding well to glargine changes. Slight increase in basal insulin has been ordered. Patient may require additional sliding scale insulin. 4. Hypothyroidism/GERD/gastroparesis/restless legs/untreated SACHIN/hyperlipidemia/morbid obesity/decreased mobility/depression Complicates care, management, recovery and prognosis. Okay to continue with baseline medications. We will have to address patient's SACHIN as an outpatient and try to reinitiate therapy. Did stressed to the patient that control of SACHIN could help with her depression and restless legs. Patient is on appropriate DVT prophylaxis. Subjective Subjective Patient did okay overnight. Patient continues to have a posterior headache. Patient states this has radiated down her neck. Patient did feel that it improved throughout the day yesterday. Objective Data Objective Data Vital Signs: Vital Signs Temp Pulse Resp BP Pulse Ox O2 Del Method O2 Flow Rate 36.7 C 81 16 125/71 H 95 Nasal Cannula 3 04/18/23 06:49 04/18/23 06:49 04/18/23 06:49 04/18/23 06:49 04/18/23 07:25 04/18/23 07:25 04/18/23 07:25 Oxygen Flow Rate (L/min) 3 Oxygen Delivery Method Nasal Cannula Weight: 123.8 kg Body Mass Index (BMI) 45.3 Intake & Output: Intake and Output for Last 24 Hours 04/16/23 04/17/23 04/18/23 23:59 23:59 23:59 Intake Total 1334.25 / 1334.25 120 / 120 Output Total 1974 1850 / 1850 600 / 600 Balance -640.75 / -640.75 -1730 / -1730 -600 / -600 Lab / Micro Data 04/17/23 05:46 04/18/23 04:45 Labs: Laboratory Results - last 24 hr 04/17/23 11:35: POC Glucose 310 H 04/17/23 16:41: POC Glucose 395 H 04/17/23 20:52: POC Glucose 363 H 04/18/23 04:45: Sodium 137, Potassium 4.6, Chloride 101, Carbon Dioxide 32.0, Anion Gap 4 L, BUN 48 H, Creatinine 1.99 H, Estim Creat Clear Calc 25.36, Est GFR (MDRD) Af Amer 32 L, Est GFR (MDRD) Non-Af 27 L, BUN/Creatinine Ratio 24.1 H, Glucose 370 H, Calcium 9.2 04/18/23 05:39: POC Glucose 318 H Micro: Microbiology 04/14/23 23:00 Mucosa - Nasopharyngeal Respiratory Panel (PCR) - Final 04/14/23 17:16 Nasal Secretion SARS-CoV-2 Antigen (Rapid) - Final Radiography Diagnostic Testing: Radiology Impression Brain MRI 04/17/23 12:04 IMPRESSION: Moderate periventricular white matter ischemic changes without evidence for acute infarct. Chronic ischemic changes within the [place] Electronically Signed: Kee Resendiz MD at 16:36 EDT , Physical Exam Const alert, oriented x3 and well nourished; Negative for no apparent distress, average body habitus or healthy appearing Constitutional Narrative: Patient more interactive today General Appearance: cooperative; Negative for ill appearing HEENT normocephalic, head/scalp atraumatic, hearing grossly normal bilaterally and moist oral mucous membranes Eyes PERRL and EOMs intact bilaterally Eyes Narrative: Conjunctiva are mildly pale bilaterally, scleral injection on the right with conjunctival hemorrhage on the left Neck no lymphadenopathy and supple General: trachea midline Resp Resp Narrative: No conversational dyspnea noted Auscultation: rales and diminished lung sounds; Negative for rhonchi or wheezes Cardio regular rate, regular rhythm, S1 normal heart sound, S2 normal heart sound, no murmurs, no rub, no gallops and no clicks GI normal to inspection, nondistended, normoactive bowel sounds, soft to palpation and non-tender GI Narrative: Large protuberant abdomen Extremity General Extremity: edema; Negative for clubbing Skin Skin Narrative: Eczema appearing rash bilateral lower extremities and irritation in the skin folds Neuro oriented x3, CN's II-XII intact bilaterally and moves all extremities Neuro Narrative: Proximal muscle weakness noted Speech: speech normal Psych cooperative and affect normal Charges/Coding Visit Charges Inpatient E&M: 28409 Subs Hosp L3
[2023-04-18] MEDS: Fenofibrate 48 MG Tablet PO (09:31)
[2023-04-18] MEDS: Furosemide 20 MG Tablet PO (09:31)
[2023-04-18] MEDS: Pantoprazole Sodium 40 MG Tablet PO (09:31)
[2023-04-18] MEDS: Metoclopramide 5 MG TABLET PO (09:31)
[2023-04-18] MEDS: Escitalopram Oxalate 10 MG Tablet PO (09:31)
[2023-04-18] MEDS: DIFLUPREDNATE 1 DRP OPTH.BTL OPHTHALMIC (09:32)
[2023-04-18] MEDS: Insulin Glargine-YFGN 100 UNIT/ML Pen 55 UNIT SC (09:36)
--- NOTE | 2023-04-18 10:48 | CASEMGMT ---
Discharge Planning TT updated via phone that patient will return today. Louise King, Discharge Planning Asst.
[2023-04-18] MEDS: 0.9% Saline Lock 10 ML Syringe IV (11:38)
--- NOTE | 2023-04-18 12:00 | PCM.DC ---
Discharge Instructions Diet Discharge Diet: Low fat / Low cholesterol, 6 Cup Fluid Restriction and Carb Control Diet Activity Discharge Activity: Return to Normal Activity Dressing / Incision Call your doctor if you observe: Fever of 101 or Higher, Shortness of breath, Dizziness, Fainting spells, Swelling in the ankles, Chest pain and Increased palpitations (irregular heartbeat) Follow Up Care Test Results: Test results from this visit will be discussed in further detail at your follow-up appointment, if applicable. Discharge Plan Admission Admit Date/Time: 04/14/23 19:22 Attending Provider: Bobby White Primary Care Provider: Lulu Luna SERVICE ESTABLISHMENT ATTENDANT Consulting Providers: Karissa Szymanski; Perico Casas; Jasper Ram Instructions Additional Instructions / Restrictions: Follow-up with your PCP in 3 to 5 days to monitor outpatient lab work including your renal function as you did have an GASTON on admission. You also continue to be anemic so we will continue to monitor that as well Discharge Orders/Prescriptions Prescriptions: New prednisone 10 mg tablet 40 mg PO DAILY Qty: 42 0RF Rx Instructions: Take 4 tablets daily for 4 days then 3 tablets daily for 4 days then 2 tablets daily for 4 days then 1 tablet daily for 4 days then half tablet daily for 4 days Continued furosemide [Lasix] 20 mg tablet 20 mg PO DAILY levothyroxine 150 mcg tablet 150 mcg PO DAILY@0600 atorvastatin 10 mg Tablet 10 mg PO DAILY pantoprazole 40 mg Tablet,Delayed Release (Dr/Ec) 40 mg PO DAILY escitalopram oxalate 10 mg Tablet 10 mg PO DAILY fenofibrate nanocrystallized [Tricor] 48 mg Tablet 48 mg PO DAILY gabapentin 100 mg capsule 200 mg PO BID Patient Comments: Takes morning and afternoon ropinirole 4 mg tablet 4 mg PO QHS Rx Instructions: administer 1-3 hours before bedtime levofloxacin 750 mg tablet 750 mg PO DAILY Qty: 7 0RF Hold Instructions: Pt has been DC'd Trulicity 0.75 mg/0.5 mL pen injector SUBCUT omega 2-nlf-tmz-fish oil [Fish Oil] 300-1,000 mg capsule 1 cap PO BID gabapentin 400 mg capsule 400 mg PO QHS metoclopramide HCl 5 mg tablet 5 mg PO BID (DME) pen needle, diabetic [Easy Touch] 31 gauge x 1/4 needle MISCELLANEOUS potassium chloride 10 mEq capsule, extended release 10 meq PO DAILY insulin lispro 100 unit/mL insulin pen 1 sliding scale dose SUBCUT TIDCM Rx Instructions: 150-200- 2 units 201-250- 4 units 251-300- 6 units 301-350- 8 units 351+ -10 units insulin glargine [Lantus Solostar U-100 Insulin] 100 unit/mL (3 mL) insulin pen 49 unit SUBCUT QHS fluconazole 100 mg tablet 150 mg PO QWEEK Patient Comments: take 1 tablet by mouth once daily artifi.tears(hypromellose)(PF) 0.3 % drops 1 drp EACH EYE Q2H PRN (Reason: retinal hemmorage) Referrals / Follow Up: Vidya Baez SERVICE ESTABLISHMENT ATTENDANT, SERVICE ESTABLISHMENT ATTENDANT-C [Med Staff - Adv Practice Prof] - Within 2 Weeks Lulu Lnua SERVICE ESTABLISHMENT ATTENDANT, SERVICE ESTABLISHMENT ATTENDANT-C [Primary Care Provider] - Within 1 Week Disposition Disposition (needs filled in before D/C Order can be placed): Assisted Living
[2023-04-18 12:18] LABS: Bedside Glucose 308 mg/dL (74-106)
--- NOTE | 2023-04-18 12:40 | CASEMGMT ---
Patient is returning to [facility] today. Varsha Villatoro SNOW TECHNICIAN RUBY
--- NOTE | 2023-04-18 12:43 | CASEMGMT ---
Discharge Planning Discharge instructions and transport time faxed to [facility]. [facility] will transport patient by wheelchair at 1:30. Nursing, SW, and patient updated. Louise King, Discharge Planning Asst.
--- NOTE | 2023-04-18 15:06 | PCM.DC.SUM ---
Providers Date of Admission: 04/14/23 Primary Care Physician: KELVIN Garcia Consultations 04/16/23 13:00 Consult: Cook Starch / Pulmonary Medicine Routine Consulting Provider: Jasper Ram Reason for Consult: Hypoxia and dyspnea EMERGENT Consult: No MD Notified: Yes Date Notified: 04/16/23 Time Notified: 13:00 Method of Notification: Text Reason For Visit: ACUTE ON CHRONIC DIASTOLIC HEART FAILURE Diagnosis Discharge Diagnosis (1) Hypoxia: Status: Acute Code(s): R09.02 - Hypoxemia (2) Morbid (severe) obesity due to excess calories: Status: Acute Code(s): E66.01 - Morbid (severe) obesity due to excess calories (3) Diabetes mellitus with diabetic polyneuropathy: Status: Acute Code(s): E11.42 - Type 2 diabetes mellitus with diabetic polyneuropathy (4) Thrombocytopenia: Status: Acute Code(s): D69.6 - Thrombocytopenia, unspecified Medications at Discharge Home Medications atorvastatin 10 mg tablet 10 mg PO DAILY cholesterol 09/24/22 escitalopram oxalate 10 mg tablet 10 mg PO DAILY anxiety 09/24/22 fenofibrate nanocrystallized 48 mg tablet (Tricor) 48 mg PO DAILY cholesterol 09/24/22 pantoprazole 40 mg tablet,delayed release 40 mg PO DAILY HEARTBURN 09/24/22 levofloxacin 750 mg tablet 750 mg PO DAILY SEE PCP #7 tabs 11/18/22 aspirin 81 mg tablet,delayed release (Adult Low Dose Aspirin) 81 mg PO DAILY 03/05/23 exenatide microspheres 2 mg subcutaneous extended release suspension mg subcut 03/05/23 furosemide 20 mg tablet (Lasix) 20 mg PO DAILY EDEMA 03/05/23 gabapentin 100 mg capsule 200 mg PO BID PAIN 03/05/23 glipizide 10 mg tablet 10 mg PO BID 03/05/23 insulin glargine 100 unit/mL subcutaneous solution 45 unit subcut QHS 03/05/23 levothyroxine 150 mcg tablet 150 mcg PO DAILY@0600 SEE PCP 03/05/23 metformin 1,000 mg tablet 1,000 mg PO BID 03/05/23 ropinirole 4 mg tablet 4 mg PO QHS 03/05/23 sitagliptin phosphate 100 mg tablet (Januvia) 100 mg PO DAILY 03/05/23 triamcinolone acetonide 0.1 % topical cream 1 applic topical TID 03/05/23 dulaglutide 0.75 mg/0.5 mL subcutaneous pen injector (Trulicity) mg subcut 04/14/23 fluconazole 100 mg tablet 150 mg PO QWEEK SEE PCP 04/14/23 gabapentin 400 mg capsule 400 mg PO QHS SEE PCP 04/14/23 insulin glargine 100 unit/mL (3 mL) subcutaneous pen (Lantus Solostar U-100 Insulin) 49 unit subcut QHS SEE PCP 04/14/23 insulin lispro 100 unit/mL subcutaneous pen 1 sliding scale dose subcut TIDCM SEE PCP 04/14/23 metoclopramide HCl 5 mg tablet 5 mg PO BID SEE PCP 04/14/23 omega 1-hhe-dpf-fish oil 300 mg-1,000 mg capsule (Fish Oil) 1 cap PO BID VITAMIN 04/14/23 pen needle, diabetic 31 gauge x 1/4 (Easy Touch) 04/14/23 potassium chloride 10 mEq capsule,extended release 10 meq PO DAILY SEE PCP 04/14/23 artifi.tears(hypromellose)(PF) 0.3 % eye drops 1 drp EACH EYE Q2H PRN retinal hemmorage 04/15/23 prednisone 10 mg tablet 40 mg (4 x 10 mg) PO DAILY #42 tabs 04/18/23 Hospital Course Operations None Procedures 2-D Echocardiogram Summary of Care Provided Minutes Spent on Discharge: 37 Hospital Course: Per HPI: TOBIN BIGGS, is a 63 F who presented urgency department at [facility] on 04/14/2023 complaining of worsening shortness of breath and hypoxia along with lower extremity swelling. She denied fever or chills, coughing, chest pain but did complain of some mild chest heaviness in the sense that she was unable to take a deep breath, nausea or vomiting, diarrhea or constipation. She does states she has had this rash on her legs which appears to be an eczema and she does report she has an history of eczema. She is also being undergoing injections into her eyes for what sounds like retinal hemorrhages. She indicates she supposed to be on eyedrops that were prescribed today but is unclear what they are. She is also supposed to be on moistening drops for her eyes every couple hours while she is awake. She states that her symptoms have been ongoing for about 7 days now however it does appear that bilateral lower extremity Dopplers were performed on 03/25/2023 which was 20 days ago so I suspect that maybe this has been going on a little bit longer than she thinks. She states she has had difficulty ambulating ever since 2021 when she had sepsis. She typically wears 3 L of oxygen at night but had noted with exertion even on 3 L during the day her oxygen saturations dropped into the 70s. She has been diagnosed with sleep apnea but has not been able to tolerate CPAP and therefore just wears 3 L supplemental oxygen nocturnally. Vital signs on presentation show a temperature of 97.6, heart rate 70, blood pressure was 142/62, respiratory rate has been anywhere from 14-19 and oxygen saturation has been stable at 97% on 4 L nasal cannula. No room air documentation has been provided. Her CBC shows a normal white count with no left shift but she does have a monocytosis. Her hemoglobin is stable at 8.3. Platelet count is 134,000 which is significantly below her baseline. Her chemistry panel shows mild hyperkalemia with a potassium of 3.5, and elevated BUN/creatinine at 45 and 1.87. Her troponin was normal. Her BNP was mildly elevated 100.4. When compared to previous NT on 09/24/2022 it is elevated from 79.5 at that time. Her chest x-ray shows nonspecific bilateral perihilar interstitial infiltrates or pulmonary edema. Her UA shows protein and glucose and minimal occult blood at 10 with leuk esterase and white cells but no bacteria. EKG shows normal sinus rhythm without any ST-T wave changes concerning for acute ischemia. Hospital Course: 1. 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 BNP was only slightly elevated 100.4. She was started on the Lasix drip without any significant improvement. The director selection and administration was consulted and felt that given the elevation in her peripheral eosinophil she could have eosinophilic pneumonia and was started on steroids with improvement. She was able to ambulate today on 2 L nasal cannula at 90% and 94% at rest at 2 L. I discussed with her the plan for discharge back to the assisted living and she expressed understanding of the risk benefits of going back home and would like to go today. Plan will be for slow steroid taper and she is to follow-up with pulmonology as an outpatient for further evaluation and outpatient PFTs, given the eosinophilia is possible as she does have reactive airway disease. 2. GASTON on CKD 3a?on admission she did have an GASTON as her baseline creatinine is around 1.1-1.2 when she presented at 1.87 however this significantly worsened to 2.54 during the Lasix drip. This was discontinued and she recovered on the day of discharge to 1.99. She was restarted on her p.o. Lasix. I do recommend that she follow-up with her PCP in 3 to 5 days for outpatient monitoring of her her renal function. 3. Type 2 diabetes, hypothyroidism, GERD, restless leg syndrome, gastroparesis, diabetic neuropathy, hyperlipidemia, SACHIN, morbid obesity, depression are all chronic medical conditions which complicate her care. Her home medications were continued where appropriate Physical Exam Narrative General: Alert, Oriented x3, Cooperative, No apparent distress HEENT: Atraumatic, PERRLA, EOMI, Normocephalic Oral: Moist Mucosa Neck: Supple, No JVD Lungs: Diminished, Normal air movement, No rhonchi, No wheeze, No rales Cardiovascular: Regular rate, Regular Rhythm, Normal S1, Normal S2, No murmurs Abdomen: Soft, Non Tender, Non-Distended, No Hepato-splenomegaly Extremities: Edema, Capillary Refill Less than 3 Seconds Skin: No rashes, No breakdown Musculoskeletal: No Tenderness to Palpation of Joints or Extremities Neurological: Cranial nerves II-XII grossly intact, Motor Exam 5/5 strength throughout, Sensory exam intact to light touch and pain Psych/Mental Status: Normal affect Weight / BMI Weight Weight: 272 lb 14.916 oz Body Mass Index (BMI) 45.3 ABG / Lab / Microbiology Data 04/17/23 05:46 04/18/23 04:45 Laboratory: Laboratory Results - last 24 hr 04/17/23 16:41: POC Glucose 395 H 04/17/23 20:52: POC Glucose 363 H 04/18/23 04:45: Sodium 137, Potassium 4.6, Chloride 101, Carbon Dioxide 32.0, Anion Gap 4 L, BUN 48 H, Creatinine 1.99 H, Estim Creat Clear Calc 25.36, Est GFR (MDRD) Af Amer 32 L, Est GFR (MDRD) Non-Af 27 L, BUN/Creatinine Ratio 24.1 H, Glucose 370 H, Calcium 9.2 04/18/23 05:39: POC Glucose 318 H 04/18/23 11:36: POC Glucose 308 H Microbiology: Microbiology 04/14/23 23:00 Mucosa - Nasopharyngeal Respiratory Panel (PCR) - Final 04/14/23 17:16 Nasal Secretion SARS-CoV-2 Antigen (Rapid) - Final Radiography Diagnostic Testing: Radiology Impression Brain MRI 04/17/23 12:04 IMPRESSION: Moderate periventricular white matter ischemic changes without evidence for acute infarct. Chronic ischemic changes within the [place] Electronically Signed: Kee Resendiz MD at 16:36 EDT , D/C Instructions Discharge Diet: Low fat / Low cholesterol, 6 Cup Fluid Restriction and Carb Control Diet Call your doctor if you observe: Fever of 101 or Higher, Shortness of breath, Dizziness, Fainting spells, Swelling in the ankles, Chest pain and Increased palpitations (irregular heartbeat) Meaningful Use Info Meaningful Use Diagnoses (Choose all that apply): None applicable Discharge Plan Admission Admit Date/Time: 04/14/23 19:22 Attending Provider: Bobby White Primary Care Provider: Lulu Luna NEPHROLOGY NURSE Consulting Providers: Karissa Szymanski; Perico Casas; Jasper Ram Instructions Additional Instructions / Restrictions: Follow-up with your PCP in 3 to 5 days to monitor outpatient lab work including your renal function as you did have an GASTON on admission. You also continue to be anemic so we will continue to monitor that as well Discharge Orders/Prescriptions Prescriptions: New prednisone 10 mg tablet 40 mg PO DAILY Qty: 42 0RF Rx Instructions: Take 4 tablets daily for 4 days then 3 tablets daily for 4 days then 2 tablets daily for 4 days then 1 tablet daily for 4 days then half tablet daily for 4 days Continued furosemide [Lasix] 20 mg tablet 20 mg PO DAILY levothyroxine 150 mcg tablet 150 mcg PO DAILY@0600 atorvastatin 10 mg Tablet 10 mg PO DAILY pantoprazole 40 mg Tablet,Delayed Release (Dr/Ec) 40 mg PO DAILY escitalopram oxalate 10 mg Tablet 10 mg PO DAILY fenofibrate nanocrystallized [Tricor] 48 mg Tablet 48 mg PO DAILY gabapentin 100 mg capsule 200 mg PO BID Patient Comments: Takes morning and afternoon ropinirole 4 mg tablet 4 mg PO QHS Rx Instructions: administer 1-3 hours before bedtime levofloxacin 750 mg tablet 750 mg PO DAILY Qty: 7 0RF Hold Instructions: Pt has been DC'd Trulicity 0.75 mg/0.5 mL pen injector SUBCUT omega 4-ugn-pgr-fish oil [Fish Oil] 300-1,000 mg capsule 1 cap PO BID gabapentin 400 mg capsule 400 mg PO QHS metoclopramide HCl 5 mg tablet 5 mg PO BID (DME) pen needle, diabetic [Easy Touch] 31 gauge x 1/4 needle MISCELLANEOUS potassium chloride 10 mEq capsule, extended release 10 meq PO DAILY insulin lispro 100 unit/mL insulin pen 1 sliding scale dose SUBCUT TIDCM Rx Instructions: 150-200- 2 units 201-250- 4 units 251-300- 6 units 301-350- 8 units 351+ -10 units insulin glargine [Lantus Solostar U-100 Insulin] 100 unit/mL (3 mL) insulin pen 49 unit SUBCUT QHS fluconazole 100 mg tablet 150 mg PO QWEEK Patient Comments: take 1 tablet by mouth once daily artifi.tears(hypromellose)(PF) 0.3 % drops 1 drp EACH EYE Q2H PRN (Reason: retinal hemmorage) Referrals / Follow Up: Vidya Baez NP, NEPHROLOGY NURSE-C [Med Staff - [facility] Practice Prof] - Within 2 Weeks Lulu Luna NP, NEPHROLOGY NURSE-C [Primary Care Provider] - Within 1 Week Disposition Disposition (needs filled in before D/C Order can be placed): Assisted Living Charges/Coding Visit Charges Inpatient E&M: 69345 Disch Hosp >30min
== END 2023-04-18 13:22 | disposition home or self-care (01) | DRG 196 ==
LOC: ED 16:58 → PCU 19:25
PROVIDERS: Internal Medicine; Internal Medicine Critical Care Medicine; Admitting Provider Internal Medicine; Emergency Provider Emergency Medicine; PCP Nurse Practitioner Adult Health; Visit Provider Family Medicine
DX: J82.81 Chronic eosinophilic pneumonia (principal); I50.33 Acute on chronic diastolic (congestive) heart failure; J81.0 Acute pulmonary edema; Z68.42 Body mass index [BMI] 45.0-49.9, adult; I13.0 Hypertensive heart and chronic kidney disease with heart failure and stage 1 through stage 4 chronic kidney disease, or unspecified chronic kidney disease; N17.9 Acute kidney failure, unspecified; J96.11 Chronic respiratory failure with hypoxia; D69.6 Thrombocytopenia, unspecified; D72.10 Eosinophilia, unspecified; E11.22 Type 2 diabetes mellitus with diabetic chronic kidney disease; D64.9 Anemia, unspecified; N18.31 Chronic kidney disease, stage 3a; E11.43 Type 2 diabetes mellitus with diabetic autonomic (poly)neuropathy; E66.01 Morbid (severe) obesity due to excess calories; E11.42 Type 2 diabetes mellitus with diabetic polyneuropathy; E03.9 Hypothyroidism, unspecified; G25.81 Restless legs syndrome; F32.A Depression, unspecified; K31.84 Gastroparesis; E87.5 Hyperkalemia; K21.9 Gastro-esophageal reflux disease without esophagitis; G47.33 Obstructive sleep apnea (adult) (pediatric); E78.5 Hyperlipidemia, unspecified; L30.9 Dermatitis, unspecified; Z79.84 Long term (current) use of oral hypoglycemic drugs
CPT/HCPCS: 36415; 70551; 71045; 71250; 80048; 80053; 81001; 82962; 83735; 83880; 84100; 84145; 84439; 84443; 84484; 85025; 85652; 86140; 86225; 86235; 86256; 87633; 87811; 93005; 93306; 94668; 97110; 97116; 97162; 97166; 97530; 97535; 97802; 99285; Q9957; 90662; A4216; C8929; J1940

== ENCOUNTER 2023-04-19 12:17 | Inpatient (IN) | payer MEDICARE, MEDICAID, SELFPAY ==
[2023-04-19] VITALS (20 sets, daily range): BP systolic 70–121; BP diastolic 26–74; PULSE 73–811; RESP 15–24; TEMP 35.9–37.7; O2SAT 90–98; BMI 48.0; BMI 46.6
--- NOTE | 2023-04-19 12:49 | EX.ED.DYSGE1 ---
HPI History of Present Illness Chief Complaint: Fever Informant: patient Narrative Narrative: Patient presents with chief complaint of I just do not feel good. Patient was just here and just discharged yesterday for some respiratory issues, mild fluid overload, slight GASTON. She states when she left the hospital she was feeling okay. Somewhere between then and now she started not feeling okay. There is report of slight fever. She denies any dyspnea. She denies any chest pain or abdominal pain. She denies nausea vomiting or diarrhea. She is denying any urinary symptoms. She does admit to myalgias when I specifically asked. She cannot define why she does not feel good. She cannot give me any any specific symptom. She states she just does not feel well. [facility] Medical History Anxiety and depression Chronic acquired lymphedema Chronic anemia CKD (chronic kidney disease), stage III Diabetes mellitus, type 2 HLD (hyperlipidemia) HTN (hypertension) Hypothyroidism Hypoxia Morbid obesity SACHIN (obstructive sleep apnea) Retinal hemorrhage Home Medications atorvastatin 10 mg tablet 10 mg PO DAILY cholesterol 09/24/22 [History Last Taken 04/13/23] escitalopram oxalate 10 mg tablet 10 mg PO DAILY anxiety 09/24/22 [History Last Taken 04/13/23] fenofibrate nanocrystallized 48 mg tablet (Tricor) 48 mg PO DAILY cholesterol 09/24/22 [History Last Taken 04/13/23] pantoprazole 40 mg tablet,delayed release 40 mg PO DAILY HEARTBURN 09/24/22 [History Last Taken 11/15/22] levofloxacin 750 mg tablet 750 mg PO DAILY SEE PCP #7 tabs 11/18/22 [Rx Last Taken Unknown] aspirin 81 mg tablet,delayed release (Adult Low Dose Aspirin) 81 mg PO DAILY 03/05/23 [History Last Taken Unknown] exenatide microspheres 2 mg subcutaneous extended release suspension mg subcut 03/05/23 [History Last Taken Unknown] furosemide 20 mg tablet (Lasix) 20 mg PO DAILY EDEMA 03/05/23 [History Last Taken 04/13/23] gabapentin 100 mg capsule 200 mg PO BID PAIN 03/05/23 [History Last Taken 04/13/23] glipizide 10 mg tablet 10 mg PO BID 03/05/23 [History Last Taken Unknown] insulin glargine 100 unit/mL subcutaneous solution 45 unit subcut QHS 03/05/23 [History Last Taken Unknown] levothyroxine 150 mcg tablet 150 mcg PO DAILY@0600 SEE PCP 03/05/23 [History Last Taken Unknown] metformin 1,000 mg tablet 1,000 mg PO BID 03/05/23 [History Last Taken Unknown] ropinirole 4 mg tablet 4 mg PO QHS 03/05/23 [History Last Taken Unknown] sitagliptin phosphate 100 mg tablet (Januvia) 100 mg PO DAILY 03/05/23 [History Last Taken Unknown] triamcinolone acetonide 0.1 % topical cream 1 applic topical TID 03/05/23 [History Last Taken Unknown] dulaglutide 0.75 mg/0.5 mL subcutaneous pen injector (Trulicity) mg subcut 04/14/23 [History Last Taken Unknown] fluconazole 100 mg tablet 150 mg PO QWEEK SEE PCP 04/14/23 [History Last Taken Unknown] gabapentin 400 mg capsule 400 mg PO QHS SEE PCP 04/14/23 [History Last Taken 04/13/23] insulin glargine 100 unit/mL (3 mL) subcutaneous pen (Lantus Solostar U-100 Insulin) 49 unit subcut QHS SEE PCP 04/14/23 [History Last Taken Unknown] insulin lispro 100 unit/mL subcutaneous pen 1 sliding scale dose subcut TIDCM SEE PCP 04/14/23 [History Last Taken Unknown] metoclopramide HCl 5 mg tablet 5 mg PO BID SEE PCP 04/14/23 [History Last Taken Unknown] omega 9-mjc-chi-fish oil 300 mg-1,000 mg capsule (Fish Oil) 1 cap PO BID VITAMIN 04/14/23 [History Last Taken 04/13/23] pen needle, diabetic 31 gauge x 1/4 (Easy Touch) 04/14/23 [History Last Taken Unknown] potassium chloride 10 mEq capsule,extended release 10 meq PO DAILY SEE PCP 04/14/23 [History Last Taken Unknown] artifi.tears(hypromellose)(PF) 0.3 % eye drops 1 drp EACH EYE Q2H PRN retinal hemmorage 04/15/23 [History Last Taken Unknown] prednisone 10 mg tablet 40 mg (4 x 10 mg) PO DAILY #42 tabs 04/18/23 [Rx Last Taken Unknown] Allergy/AdvReac Type Severity Reaction Status Date / Time No Known Allergies Allergy Verified 04/14/23 16:28 Family History Mother Heart disease Hypertension Diabetes Father Prostate cancer Surgical History H/O cataract removal with insertion of prosthetic lens History of cholecystectomy History of surgery on lower extremity Social History [facility]: [facility] Smoking Status: Never smoker alcohol intake: never substance use type: does not use ROS ROS ED Constitutional Constitutional ED: Reports fever(s) ENT ENT ED: Denies rhinorrhea or sore throat Cardiovascular Cardiovascular: Denies chest pain or palpitations Respiratory/Chest Respiratory/Chest: Denies cough or dyspnea Gastrointestinal Gastrointestinal: Denies abdominal pain, diarrhea, nausea or vomiting Genitourinary Genitourinary ED: Denies dysuria Musculoskeletal Musculoskeletal: Reports myalgias Integumentary Denies rash Neurologic Neurologic: Denies headache(s) Hematologic/Lymphatic Hematologic/Lymphatic: Denies easy bleeding or easy bruising Allergic/Immunologic Allergic/Immunologic ED: Denies urticaria EXAM Physical Exam Narrative Exam Narrative: General: Patient is awake and alert. She is nontoxic in appearance. HEENT: She does have some mildly dry mucous membranes. But as the patient just had some diuresis I am not giving her IV fluids acute this time. Her blood pressure is OK. Neck is thick no obvious JVD. Lungs do sound relatively clear. Saturations are 98% on 4 L. I turned her down to 3 L because evidently this is her normal. She is staying at about 96%. Heart is regular. Rate is about 90?100. I do not hear a murmur. Abdomen is obese but otherwise benign. Extremities show few areas of bruising. She has had recent IVs. She has trace edema. But no asymmetry. Skin: I do not see any rashes. But her skin does feel a bit warm here to me. Neurologic: Patient is awake. She is oriented. She knows she was just in the hospital. She is not the best informant for details though. Const Vital Signs: 04/19/23 12:18 04/19/23 12:23 04/19/23 12:25 Temperature 99.8 F H 99.8 F H Temperature Source Temporal Temporal Pulse Rate 101 H 99 Respiratory Rate 16 22 H Respiratory Effort Normal Non-Labored Respiratory Pattern Tachypnea Blood Pressure 101/61 101/61 Blood Pressure Mean 74 74 Pulse Ox 98 98 Oxygen Delivery Method Nasal Cannula Nasal Cannula Oxygen Flow Rate (L/min) 4 4 04/19/23 13:41 04/19/23 13:41 04/19/23 14:18 Temperature 99.2 F H 97.9 F Temperature Source Temporal Temporal Pulse Rate 92 90 Respiratory Rate 24 H 15 Respiratory Effort Respiratory Pattern Blood Pressure 98/57 L 98/53 L Blood Pressure Mean 70 68 Pulse Ox 95 95 95 Oxygen Delivery Method Nasal Cannula Nasal Cannula Nasal Cannula Oxygen Flow Rate (L/min) 4 4 4 04/19/23 15:14 04/19/23 15:00 04/19/23 15:30 Temperature 97.8 F Temperature Source Temporal Pulse Rate 88 88 88 Respiratory Rate 23 H 18 16 Respiratory Effort Respiratory Pattern Blood Pressure 90/55 L 99/56 L 104/53 L Blood Pressure Mean 66 70 70 Pulse Ox 94 90 94 Oxygen Delivery Method Nasal Cannula Nasal Cannula Nasal Cannula Oxygen Flow Rate (L/min) 4 2 2 04/19/23 16:30 04/19/23 17:11 Temperature 97.2 F L Temperature Source Temporal Pulse Rate 811 H 78 Respiratory Rate 20 H 21 H Respiratory Effort Respiratory Pattern Blood Pressure 90/71 75/26 L Blood Pressure Mean 77 42 Pulse Ox 94 90 Oxygen Delivery Method Nasal Cannula Nasal Cannula Oxygen Flow Rate (L/min) 3 3 MDM MDM MDM Narrative Medical decision making narrative: Patient CBC does show a new elevation of her white count. However, it sounds like she also may be on prednisone. Her hemoglobin is about baseline. Plate normal. Patient's electrolytes do show slight elevation in BUN and creatinine. But this is really at about the patient's recent baseline. Liver function test showed no acute abnormalities. Patient's lactic acid is normal. His COVID and influenza were negative. Blood and urine cultures are pending. Urine was slightly cloudy but not really showing any other significant indication of infection. My independent interpretation the patient's single AP chest x-ray shows no infiltrative process. She does appear to have some mild cardiomegaly but this is an AP film. Final reading shows overall improvement from the prior study. Patient has not been febrile here. Although she did break out into a sweat once and then stated she felt a little better. But her blood pressure has been soft here. She had a couple at 80 but when they were immediately rechecked it was more due to positional changes the way she was laying. But were getting general blood pressures at around 90 systolic at this time. This has been checked multiple times. Patient's lactate was normal. I cannot send the patient back to [facility] with this much generalized weakness and her low blood pressure. I am giving her fluids. I initially gave 500. We are now giving her a liter. She is only gotten about 1100 or 1200 in. This is only about 10 cc/kg. We will continue with further fluids at this time. I will discuss the case with the hospitalist. With the patient having initial tachycardia, white count, and an elevated respiratory rate she does meet SIRS criteria. With a history of fever and suspected infection she does meet criteria for sepsis. At this point we will give IV antibiotics. Lab Data Attestation: I reviewed the patient's lab results. Labs: Laboratory Results - last 24 hr 04/19/23 04/19/23 13:35 14:32 WBC 16.2 H RBC 3.50 L Hgb 9.4 L Hct 30.3 L MCV 86.6 MCH 26.9 L MCHC 31.0 L RDW Std Deviation 46.6 H RDW Coeff of Vlad 14.9 H Plt Count 165 MPV 11.4 Immature Gran % (Auto) 2.000 H Neut % (Auto) 78.7 H Lymph % (Auto) 1.7 L Upson % (Auto) 17.1 H Eos % (Auto) 0.4 Baso % (Auto) 0.1 Absolute Neuts (auto) 12.7 H Absolute Lymphs (auto) 0.28 L Nucleated RBC % 0 Sodium 139 Potassium 4.1 Chloride 101 Carbon Dioxide 32.0 Anion Gap 6 BUN 53 H Creatinine 2.00 H Estim Creat Clear Calc 25.23 Est GFR (MDRD) Af Amer 32 L Est GFR (MDRD) Non-Af 27 L BUN/Creatinine Ratio 26.5 H Glucose 92 Lactic Acid 1.6 Calcium 8.9 Total Bilirubin 0.20 AST 18 ALT 24 Alkaline Phosphatase 52 Total Protein 6.4 Albumin 2.9 L Globulin 3.5 Albumin/Globulin Ratio 0.8 L Urine Color Yellow Urine Clarity Sl. Cloudy Urine pH 5.0 Ur Specific Adams 1.020 Urine Protein 500 H Urine Glucose (UA) Normal Urine Ketones 5 H Urine Occult Blood 10 H Urine Nitrite Negative Urine Bilirubin Negative Urine Urobilinogen Normal Ur Leukocyte Esterase 25 H Urine RBC 0 SEEN Urine WBC 0-5 SEEN Ur Squamous Epith Cells 0-5 SEEN Ur Transition Epith Cell 0-5 SEEN Amorphous Sediment 1+ Urine Bacteria 0 SEEN Hyaline Casts 0-5 SEEN Fine Granular Casts 0-5 SEEN Urine Mucus 0 SEEN Radiography Diagnostic Testing: Clinical Impression(s) from Imaging Studies Chest X-Ray 04/19/23 13:45 IMPRESSION: Overall improvement compared to the previous study with decreased interstitial edema compared to the previous study. Follow-up recommended to assure complete resolution Electronically Signed: King Hadley MD at 13:56 EDT , EKG Initial EKG: Comments: My independent interpretation the patient's EKG shows sinus rhythm with overall rate of 99. No ectopy. No acute ST elevation or depression. MT interval, QRS duration and QTc normal Discharge Plan Dx/Rx/DC Orders Clinical Impression: History of fever, Malaise, Chronic kidney disease, Blood pressure abnormally low, Sepsis Disposition Disposition: [facility]
[2023-04-19] MEDS: Acetaminophen 500 MG Tablet 1000 MG PO (13:40)
--- NOTE | 2023-04-19 13:45 | RAD_ITS ---
STUDY: X-RAY CHEST REASON FOR EXAM: Female, 63 years old. Fever and cough TECHNIQUE: Single AP portable view of the chest. COMPARISON: 04/14/2023 FINDINGS: EKG leads overlie the chest Lungs are expanded with near complete resolution of previously noted interstitial edema. No demonstrated organizing infiltrate or effusion. Normal size heart. Normal mediastinum and rebekah. Normal visualized pulmonary arteries. Normal visualized aortic arch and descending thoracic aorta. Normal visualized thoracic spine. Normal visualized ribs, clavicles, and shoulders. There is no demonstrated abnormality of the visualized soft tissue structures of the upper abdomen. RAD/Chest 1 View (Portable) IMPRESSION: Overall improvement compared to the previous study with decreased interstitial edema compared to the previous study. Follow-up recommended to assure complete resolution Electronically Signed: King Hadley MD at 13:56 EDT ,
[2023-04-19 13:50] LABS: Absolute Lymphocyte Count 0.28 X10^3/uL (0.83-4.51); Absolute Neutrophil Count 12.7 X10^3/uL (2.0-7.7); Basophil# 0.02 X10^3/uL; Basophil% 0.1 % (0-1); Eosinophil# 0.06 X10^3/uL; Eosinophils% 0.4 % (0-5); Hematocrit 30.3 % (37-47); Hemoglobin 9.4 g/dL (12.0-15.0); Lymphocyte # 0.28 X10^3/ul (0.83-4.51); Lymphocyte % 1.7 % (19-41); Mean Corpuscular Hgb 26.9 pg (27.0-32.0); Mean Corpuscular Volume 86.6 fL (81-99); Mean Platelet Vol. 11.4 fl (6.2-12.0); Monocyte# 2.77 X10^3/uL; Monocyte% 17.1 % (0-10); NRBC Flagged by Analyzer 0 % (0-5); Neutrophil # 12.72 X10^3/uL (2.7-7.7); Neutrophil % 78.7 % (47-70); POSITIVE DIFFERENTIAL YES; Platelet Count 165 K/mm3 (150-450); RBC Distribution Width CV 14.9 % (11.6-14.6); RBC Distribution Width SD 46.6 fl (35.1-43.9); White Blood Count 16.2 K/mm3 (4.4-11.0)
[2023-04-19 13:55] LABS: Differential Indicated SCAN CRITERIA MET
[2023-04-19 14:16] LABS: Lactic Acid 1.6 mmol/L (0.4-1.9)
[2023-04-19 14:17] LABS: ALB/GLOB Ratio 0.8 RATIO (0.9-2.4); AST(SGOT) 18 U/L (15-37); Alanine Aminotransfer ALT/SGPT 24 U/L (13-56); Albumin, Serum 2.9 g/dL (3.2-5.0); Alkaline Phosphatase 52 U/L (45-117); Anion Gap 6 (5-15); BUN 53 mg/dL (7-18); BUN/Creat Ratio 26.5 RATIO (10-20); Calcium,Total 8.9 mg/dL (8.5-10.1); Chloride 101 mmol/L (98-107); EST Glomerular Filtration Rate 27 mL/min (>60); Est Glom Filt Rate - Afr Amer 32 mL/min (>60); Estimated Creatinine Clearance 25.23 ml/min; Globulin 3.5 g/dL (2.2-4.2); Glucose 92 mg/dL (74-106); Potassium 4.1 mmol/L (3.5-5.1); Protein, Total 6.4 g/dL (6.4-8.2); Sodium Level 139 mmol/L (136-145)
[2023-04-19 14:39] LABS: Bacteria 0 SEEN /hpf (None Seen); Mucous, Urine 0 SEEN /hpf (<or=2+); Red Blood Cells-Urine 0 SEEN /hpf (0-5)
[2023-04-19 14:51] LABS: Color, Urine Yellow (Yellow); Glucose, Dipstick Normal (Normal); Ketone-Dipstick 5 mg/dl (Negative); Leukocyte Esterase-Dipstick 25 /ul (Negative); Nitrite-Dipstick Negative (Negative); Occult Blood-Urine 10 /ul (Negative); Protein-Dipstick 500 mg/dl (Negative); Urine Bilirubin Dipstick Negative (Negative); Urine Clarity Sl. Cloudy (Clear); Urine Urobilinogen Normal (Normal)
[2023-04-19 15:01] LABS: Squamous Epithelial Cells - UA 0-5 SEEN /hpf (5-10); Transitional Epithelial - Ur 0-5 SEEN /hpf (0-5); White Blood Cells 0-5 SEEN /hpf (0-5)
[2023-04-19 15:02] LABS: Hyaline Cast 0-5 SEEN /lpf (0-5)
[2023-04-19 15:03] LABS: Fine Granular Cast- Urine 0-5 SEEN /lpf (0-5)
[2023-04-19 15:04] LABS: Amorphous Sediment 1+
[2023-04-19] MEDS: 0.9% Normal Saline (500mL Bag) 500 ML 999 ML IV (15:15)
[2023-04-19] MEDS: 0.9% Normal Saline (1000mL) 1,000 ML 999 ML IV ×4 (16:17→19:34)
--- NOTE | 2023-04-19 17:24 | HP.PCM.HOS_ITS ---
HPI - General General Date of Admission: 04/19/23 Date of Service: 04/19/23 Chief Complaint: Fever HPI Narrative TOBIN BIGGS, is a 63 F who presented to the emergency department from her assisted living facility with a fever and reported that she just did not feel well to the emergency room department doctor. She was unable to give me much of a history. 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 She reported that she was eating well at home and that sometime between when she was discharged and the time of presenting she did not feel well. She was unable to objectively tell me what her fever was and denied any shortness of breath, coughing, chest pain, nausea, vomiting, abdominal pain or diarrhea. She denied any urinary frequency but did complain of myalgias. Upon evaluation she was noted to be hypotensive and was initially given 5 cc bolus to express for responsiveness. Temperature on presentation was 99.8 with a Tmax of 99.8 while she is in the emergency department, she was mildly tachycardic at 101 and her initial blood pressure was 101/61 however despite the 500 cc she received on arrival her blood pressures continued to deteriorate she became more hypotensive with her most recent blood pressure being 88/50. Her CBC showed a leukocytosis with a white count of 16.2, her hemoglobin is 9.4 and her platelet count is normal. She does have a left shift of 78.7% h. Her eosinophils are normal at this time.Her chemistry panel is overall unremarkable and stable compared to yesterday. Her BUN is 53 and her serum creatinine is 2.0. (Serum creatinine at discharge was 1.99) . Despite her hypotension, her initial lactic acid was 1.6 and her liver functions are normal. Her UA is not consistent with infection as there are no bacteria or white cells. Her chest x-ray shows improvement from previous. With her continued hypotension she was given another liter and a half bolus and I will continue another liter on the floor to make up 3.5 L which is 30 cc/kg for her body weight to address her sepsis and blood and urine cultures were sent. She was given vancomycin and Zosyn which we will continue. [facility], [facility] Medical History Anxiety and depression Chronic acquired lymphedema Chronic anemia CKD (chronic kidney disease), stage III Diabetes mellitus, type 2 HLD (hyperlipidemia) HTN (hypertension) Hypothyroidism Hypoxia Morbid obesity SACHIN (obstructive sleep apnea) Retinal hemorrhage Home Medications atorvastatin 10 mg tablet 10 mg PO DAILY cholesterol 09/24/22 [History Last Taken 04/13/23] escitalopram oxalate 10 mg tablet 10 mg PO DAILY anxiety 09/24/22 [History Last Taken 04/13/23] fenofibrate nanocrystallized 48 mg tablet (Tricor) 48 mg PO DAILY cholesterol 09/24/22 [History Last Taken 04/13/23] pantoprazole 40 mg tablet,delayed release 40 mg PO DAILY HEARTBURN 09/24/22 [History Last Taken 11/15/22] levofloxacin 750 mg tablet 750 mg PO DAILY SEE PCP #7 tabs 11/18/22 [Rx Last Taken Unknown] aspirin 81 mg tablet,delayed release (Adult Low Dose Aspirin) 81 mg PO DAILY 03/05/23 [History Last Taken Unknown] exenatide microspheres 2 mg subcutaneous extended release suspension mg subcut 03/05/23 [History Last Taken Unknown] furosemide 20 mg tablet (Lasix) 20 mg PO DAILY EDEMA 03/05/23 [History Last Taken 04/13/23] gabapentin 100 mg capsule 200 mg PO BID PAIN 03/05/23 [History Last Taken 04/13/23] glipizide 10 mg tablet 10 mg PO BID 03/05/23 [History Last Taken Unknown] insulin glargine 100 unit/mL subcutaneous solution 45 unit subcut QHS 03/05/23 [History Last Taken Unknown] levothyroxine 150 mcg tablet 150 mcg PO DAILY@0600 SEE PCP 03/05/23 [History Last Taken Unknown] metformin 1,000 mg tablet 1,000 mg PO BID 03/05/23 [History Last Taken Unknown] ropinirole 4 mg tablet 4 mg PO QHS 03/05/23 [History Last Taken Unknown] sitagliptin phosphate 100 mg tablet (Januvia) 100 mg PO DAILY 03/05/23 [History Last Taken Unknown] triamcinolone acetonide 0.1 % topical cream 1 applic topical TID 03/05/23 [History Last Taken Unknown] dulaglutide 0.75 mg/0.5 mL subcutaneous pen injector (Trulicity) mg subcut 04/14/23 [History Last Taken Unknown] fluconazole 100 mg tablet 150 mg PO QWEEK SEE PCP 04/14/23 [History Last Taken Unknown] gabapentin 400 mg capsule 400 mg PO QHS SEE PCP 04/14/23 [History Last Taken 04/13/23] insulin glargine 100 unit/mL (3 mL) subcutaneous pen (Lantus Solostar U-100 Insulin) 49 unit subcut QHS SEE PCP 04/14/23 [History Last Taken Unknown] insulin lispro 100 unit/mL subcutaneous pen 1 sliding scale dose subcut TIDCM SEE PCP 04/14/23 [History Last Taken Unknown] metoclopramide HCl 5 mg tablet 5 mg PO BID SEE PCP 04/14/23 [History Last Taken Unknown] omega 9-azw-rsc-fish oil 300 mg-1,000 mg capsule (Fish Oil) 1 cap PO BID VITAMIN 04/14/23 [History Last Taken 04/13/23] pen needle, diabetic 31 gauge x 1/4 (Easy Touch) 04/14/23 [History Last Taken Unknown] potassium chloride 10 mEq capsule,extended release 10 meq PO DAILY SEE PCP 04/14/23 [History Last Taken Unknown] artifi.tears(hypromellose)(PF) 0.3 % eye drops 1 drp EACH EYE Q2H PRN retinal hemmorage 04/15/23 [History Last Taken Unknown] prednisone 10 mg tablet 40 mg (4 x 10 mg) PO DAILY #42 tabs 04/18/23 [Rx Last Taken Unknown] Allergy/AdvReac Type Severity Reaction Status Date / Time No Known Allergies Allergy Verified 04/14/23 16:28 Family History Mother Heart disease Hypertension Diabetes Father Prostate cancer Surgical History H/O cataract removal with insertion of prosthetic lens History of cholecystectomy History of surgery on lower extremity Social History housing: long-term Smoking Status: Never smoker alcohol intake: never substance use type: does not use ROS ROS Narrative Patient was a very poor historian and it was difficult to get much history from her what I could obtain from her was decreased p.o. intake since discharge, fatigue, fever without documented temperature, weakness that was generalized in nature. Otherwise she denied any significant issues however the accuracy of this is questionable as she appeared to have some confusion. Vital Signs Vital Signs Vital Signs: 04/19/23 12:18 04/19/23 12:23 04/19/23 12:25 Temperature 99.8 F H 99.8 F H Temperature Source Temporal Temporal Pulse Rate 101 H 99 Respiratory Rate 16 22 H Respiratory Effort Normal Non-Labored Respiratory Pattern Tachypnea Blood Pressure 101/61 101/61 Blood Pressure Mean 74 74 Pulse Ox 98 98 Oxygen Delivery Method Nasal Cannula Nasal Cannula Oxygen Flow Rate (L/min) 4 4 04/19/23 13:41 04/19/23 13:41 04/19/23 14:18 Temperature 99.2 F H 97.9 F Temperature Source Temporal Temporal Pulse Rate 92 90 Respiratory Rate 24 H 15 Respiratory Effort Respiratory Pattern Blood Pressure 98/57 L 98/53 L Blood Pressure Mean 70 68 Pulse Ox 95 95 95 Oxygen Delivery Method Nasal Cannula Nasal Cannula Nasal Cannula Oxygen Flow Rate (L/min) 4 4 4 04/19/23 15:14 04/19/23 15:00 04/19/23 15:30 Temperature 97.8 F Temperature Source Temporal Pulse Rate 88 88 88 Respiratory Rate 23 H 18 16 Respiratory Effort Respiratory Pattern Blood Pressure 90/55 L 99/56 L 104/53 L Blood Pressure Mean 66 70 70 Pulse Ox 94 90 94 Oxygen Delivery Method Nasal Cannula Nasal Cannula Nasal Cannula Oxygen Flow Rate (L/min) 4 2 2 04/19/23 16:30 04/19/23 17:11 Temperature 97.2 F L Temperature Source Temporal Pulse Rate 811 H 78 Respiratory Rate 20 H 21 H Respiratory Effort Respiratory Pattern Blood Pressure 90/71 75/26 L Blood Pressure Mean 77 42 Pulse Ox 94 90 Oxygen Delivery Method Nasal Cannula Nasal Cannula Oxygen Flow Rate (L/min) 3 3 Weight Weight: 131 kg Body Mass Index (BMI) 48.0 Physical Exam Const alert, no apparent distress and well nourished; Negative for oriented x3, average body habitus or healthy appearing Constitutional Narrative: Morbidly obese, white female, lying in Trendelenburg, patient is oriented to place and self however she is somewhat confused on time, she appears ill/toxic, comfortable at this time General Appearance: cooperative HEENT normocephalic and head/scalp atraumatic; Negative for hearing grossly normal bilaterally, moist oral mucous membranes or dentition normal HEENT Narrative: Dentition is poor, Mallampati is 3, no thrush, mild hearing loss, mucous membranes are dry Eyes PERRL, EOMs intact bilaterally and conjunctivae normal Eyes Narrative: No scleral icterus, conjunctival hemorrhage has resolved on the left, scleral erythema has resolved on the right Neck no lymphadenopathy and supple Neck Narrative: Short and thick, trachea is midline, no thigh regiment Resp normal respiratory effort, no retractions, no use of accessory muscles and clear to auscultation bilaterally Resp Narrative: Extremely distant due to body habitus however no adventitious sounds appreciated Auscultation: Negative for rales, rhonchi or wheezes Cardio regular rate, S1 normal heart sound, S2 normal heart sound, no murmurs, no rub, no gallops and no clicks Cardio Narrative: Distant heart tones due to habitus and patient positioning GI normal to inspection, nondistended, normoactive bowel sounds, soft to palpation and non-tender GI Narrative: Large protuberant abdomen Extremity no clubbing, cyanosis or edema Extremity Narrative: Pulses are 1+ Skin no wounds, skin turgor normal, no jaundice, no petechiae and no mottling Skin Narrative: Skin breakdown noted in the intertrigo regions Neuro CN's II-XII intact bilaterally, moves all extremities and no focal motor deficits Neuro Narrative: She is awake however she drifts in and out of sleep Sensorium / Orientation: awake, alert, oriented to person and oriented to place Psych Psych Narrative: Affect is extremely flat and mood is depressed which is appropriate for current situation and likely related to her above presentation Results Lab / Micro Data 04/19/23 13:35 04/19/23 13:35 Labs: Laboratory Results - last 24 hr 04/19/23 13:35: WBC 16.2 H, RBC 3.50 L, Hgb 9.4 L, Hct 30.3 L, MCV 86.6, MCH 26.9 L, MCHC 31.0 L, RDW Std Deviation 46.6 H, RDW Coeff of Vlad 14.9 H, Plt Count 165, MPV 11.4, Immature Gran % (Auto) 2.000 H, Neut % (Auto) 78.7 H, Lymph % (Auto) 1.7 L, [place] % (Auto) 17.1 H, Eos % (Auto) 0.4, Baso % (Auto) 0.1, Absolute Neuts (auto) 12.7 H, Absolute Lymphs (auto) 0.28 L, Nucleated RBC % 0, Sodium 139, Potassium 4.1, Chloride 101, Carbon Dioxide 32.0, Anion Gap 6, BUN 5 3 H, Creatinine 2.00 H, Estim Creat Clear Calc 25.23, Est GFR (MDRD) Af Amer 32 L, Est GFR (MDRD) Non-Af 27 L, BUN/Creatinine Ratio 26.5 H, Glucose 92, Lactic Acid 1.6, Calcium 8.9, Total Bilirubin 0.20, AST 18, ALT 24, Alkaline Phosphatase 52, Total Protein 6.4, Albumin 2.9 L, Globulin 3.5, Albumin/Globulin Ratio 0.8 L 04/19/23 14:32: Urine Color Yellow, Urine Clarity Sl. Cloudy, Urine pH 5.0, Ur Specific [place] 1.020, Urine Protein 500 H, Urine Glucose (UA) Normal, Urine Ketones 5 H, Urine Occult Blood 10 H, Urine Nitrite Negative, Urine Bilirubin Ne gative, Urine Urobilinogen Normal, Ur Leukocyte Esterase 25 H, Urine RBC 0 SEEN, Urine WBC 0-5 SEEN, Ur Squamous Epith Cells 0-5 SEEN, Ur Transition Epith Cell 0-5 SEEN, Amorphous Sediment 1+, Urine Bacteria 0 SEEN, Hyaline Casts 0-5 SEEN, Fine Granular Casts 0-5 SEEN, Urine Mucus 0 SEEN Micro: Microbiology 04/19/23 13:13 Nasal Secretion SARS-CoV-2 & FLU Antigen (Rapid) - Final Radiology Impression Chest X-Ray 04/19/23 13:45 IMPRESSION: Overall improvement compared to the previous study with decreased interstitial edema compared to the previous study. Follow-up recommended to assure complete resolution Electronically Signed: King Hadley MD at 13:56 EDT , Assessment & Plan Assessment/Plan (1) Toxic metabolic encephalopathy: PLAN: Plan Sepsis secondary to unidentified infection -Patient is hypotensive, tachypneic, has a leukocytosis and was transiently tachycardic on presentation -Patient has Medicare therefore under sepsis progression with SIRS and source qualifies for sepsis criteria -Blood and urine cultures are pending -COVID is negative -Patient was reported to be febrile prior to presentation however she has not yet been febrile here -On baseline oxygen of 3 L -Was recently hospitalized here for 4 days and we will therefore give vancomycin and Zosyn for now -Recent echocardiogram was overall unremarkable -We will give fluid boluses and reassess blood pressure--> May need pressors depending on response to IV fluids -Hold home Lasix -Admit to ICU and consult critical care medicine -Monica with Dr. Ram Leuksolomon -Etiology is unclear however she was on steroids -Need continue steroids for now as there was concern she had eosinophilic pneumonia at her last hospitalization Toxic/metabolic encephalopathy -Suspect related to the above -Patient with mild confusion and much more fatigued than when I evaluated her at her previous admission -Clinically she looks worse now than she did previously -Continue work-up as above with aggressive treatment for sepsis and continue to monitor Acute hypoxic respiratory failure -Work-up was in progress during her last hospitalization -Has been requiring 3 L [id number] where previously she was not -We will have pulmonary medicine evaluate her -Continue steroids for now as there was concern she could potentially have e osinophilic pneumonia at her last hospitalization DM-2 -Hold home oral agents -Continue home basal insulin--> if patient unable to eat will need to decrease basal insulin dose by 50% -SSI -Accu-Cheks as ordered -Cardiac/carb controlled diet Hypothyroidism Continue home levothyroxine 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 -Continue home eyedrops Diabetic neuropathy -Continue home gabapentin 200 3 times daily -Hold 400 mg dosing at nightly due to renal dysfunction Hyperlipidemia -Continue home fenofibrate -Continue home atorvastatin SACHIN -Patient noncompliant with CPAP due to intolerance -Wears nocturnal oxygen 3 L Morbid obesity -BMI is 48.1 -Recommend weight loss -Complicates treatment, prognosis, outcomes Depression -Continue home escitalopram DVT prophylaxis -Heparin 3 times daily with renal dysfunction CODE STATUS -Full code as verified on presentation Sepsis Attestation Sepsis Alert: Yes Sepsis Attestation: Agree w/Sepsis Date exam was performed: 04/19/23 Time exam was performed: 18:08 Possible Source of Sepsis: Skin/soft tissue Sepsis Organ Dysfunction Criteria Present: SBP < 90 mmHg or MAP < 65 mmHg, Creatinine > 2.0 mg/dL and New/Unexplained change in mental status Fluid Resuscitation Fluid resuscitation indicated?: Yes Fluid Resuscitation ordered: 30 ml/kg fluid bolus ordered Amount of fluid ordered: 3 Reason for lesser fluid bolus:: Other (Patient was actually given 3.5 l however I am unable to type half liters in the above box) Charges/Coding Visit Charges Inpatient E&M: 44417 Init Hosp L3
[2023-04-19] MEDS: Piperacil/Tazobactam 4.5 GM in 0.9% Normal Saline (100mL MB+) 100 ML IV (18:22)
[2023-04-19 18:57] LABS: Allen Test Positive; Base Excess 3 mmol/L (-2 to +2); Bicarbonate 27.4 mmol/L (22-26); Blood Gas Specimen Type ART; Mode Not entered; O2 Delivery Device Cannula; PO2 96 mmHG (75-100); SITE R Radial; SO2 98 % (95-99); Total Carbon Dioxide 29 mmol/L; pCO2 40.6 mmHg (35-45); pH 7.44 (7.35-7.45)
[2023-04-19 19:03] LABS: Lactic Acid 0.9 mmol/L (0.4-1.9)
[2023-04-19] MEDS: Vancomycin HCl 2,000 MG in 0.9% Normal Saline (500mL Bag) 500 ML 250 MG IV (19:24)
--- NOTE | 2023-04-19 20:08 | PCM.RX.CS ---
Consult Antibiotic Management Pharmacy has been consulted to manage selected antiobiotic: Vancomycin Type of Intervention Type of Consult: New start Suspected Infection Suspected Infection: Sepsis Labs Labs: Sodium 139 mmol/L (136-145) 04/19/23 13:35 Potassium 4.1 mmol/L (3.5-5.1) 04/19/23 13:35 Chloride 101 mmol/L (98-107) 04/19/23 13:35 Carbon Dioxide 32.0 mmol/L (21.0-32.0) 04/19/23 13:35 Anion Gap 6 (5-15) 04/19/23 13:35 BUN 53 mg/dL (7-18) H 04/19/23 13:35 Creatinine 2.00 mg/dL (0.55-1.02) H 04/19/23 13:35 Est GFR (MDRD) Af Amer 32 mL/min (>60) L 04/19/23 13:35 Est GFR (MDRD) Non-Af 27 mL/min (>60) L 04/19/23 13:35 BUN/Creatinine Ratio 26.5 RATIO (10-20) H 04/19/23 13:35 Glucose 92 mg/dL (74-106) 04/19/23 13:35 Microbiology Microbiology: Microbiology 04/19/23 13:13 Nasal Secretion SARS-CoV-2 & FLU Antigen (Rapid) - Final Dosing Weight Weight used for dosin kg Estimated Creatinine Clearance Estimated Creatinine Clearance: 37.6 Goal Trough Goal Trough: 15-20 mcg/mL Pharmacy Plan for Drug Dosing Pharmacy Plan for Drug Dosing: Pharmacy Service will continue to monitor and adjust dosing as required. Follow-Up Labs Follow-Up Labs: Trough: Vancomycin Date/Time Labs Ordered Labs to be done on [date and time ordered]: 04/21/23 @7316
[2023-04-19] MEDS: Gabapentin 100 MG Capsule 200 MG PO (20:20)
[2023-04-19] MEDS: Metoclopramide 5 MG TABLET PO (21:55)
[2023-04-19] MEDS: Atorvastatin Calcium 10 MG Tablet PO (21:55)
[2023-04-19] MEDS: Pramipexole Di-HCl 0.125 MG Tablet 0.375 MG PO (21:55)
--- NOTE | 2023-04-19 22:10 | NURSING ---
HS blood sugar 92. Pt refused HS insulin. I did not eat anything today. That will bottom me out. HS snack offered. Pt refused.
[2023-04-19 22:24] LABS: Bedside Glucose 92 mg/dL (74-106)
[2023-04-20] VITALS (36 sets, daily range): BP systolic 93–151; BP diastolic 42–97; PULSE 69–95; RESP 10–22; TEMP 36.1–37.5; O2SAT 90–100; BMI 46.8
[2023-04-20 01:50] LABS: Probe Check PASS
[2023-04-20 01:52] LABS: M R Staph aureus DNA By PCR POSITIVE (Negative)
--- NOTE | 2023-04-20 02:54 | NURSING ---
MRSA + placed in contact isolation.
[2023-04-20] MEDS: Levothyroxine 150 MCG Tablet PO (05:51)
[2023-04-20] MEDS: Pramipexole Di-HCl 0.125 MG Tablet 0.375 MG PO ×3 (05:51→20:00)
[2023-04-20] MEDS: Piperacil/Tazobactam 3.375 GM in 0.9% Normal Saline (50mL MB+) 50 ML IV ×3 (05:52→19:59)
--- NOTE | 2023-04-20 07:17 | PN.CC_ITS ---
Assessment & Plan Assessment/Plan (1) Hypoxia: (2) Morbid (severe) obesity due to excess calories: (3) Diabetes mellitus with diabetic polyneuropathy: (4) Thrombocytopenia: PLAN: Plan RECOMMENDATIONS: 1. Continue empiric antibiotics 2. Wean prednisone over the next 12 to 14 days 3. Encourage incentive spirometer and out of bed as tolerated 4. Possible CY if blood cultures continue to grow Staph aureus 5. Continue insulin therapy 6. Possible transfer out of the intensive care unit unit later today IMPRESSIONS: 1. Acute hypoxic respiratory insufficiency Patient recently hospitalized with significant hypoxia. Patient has improved significantly on steroid therapy suggestive of possible eosinophilic process. Chest x-ray on repeat admission shows resolution of bilateral infiltrates and ABG shows chronic metabolic alkalosis with increased AA gradient. 2. Acute kidney injury on CKD stage IIIa Stable. Clinical suspicion for Lasix as an etiology. No indication for renal replacement therapy. Continue to monitor renal function. Patient does have some hyperkalemia, but no associated changes. Baseline diuretics are on hold secondary to presenting hypotension 3. 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 Unfortunately, will initiate steroids secondary problem #1. Patient appears to be responding well to glargine changes. Slight increase in basal insulin has been ordered. Patient m ay require additional sliding scale insulin. 4. Sepsis secondary to Staph aureus Patient presented with hypotension and increasing leukocytosis. Patient does have Staph aureus growing from a blood culture. Patient has no obvious source outside of some skin rash without surrounding erythema. If these remain positive, patient may need a CY to evaluate for possible source. 5. Hypothyroidism/GERD/gastroparesis/restless legs/untreated SACHIN/hyperlipid emia/morbid obesity/decreased mobility/depression Complicates care, management, recovery and prognosis. Okay to continue with baseline medications. We will have to address patient's SACHIN as an outpatient and try to reinitiate therapy. Did stressed to the patient that control of SACHIN could help with her depression and restless legs. Patient is on appropriate DVT prophylaxis. Subjective Subjective Interim history: Patient unable to provide much additional information, but she was discharged on Friday on steroid therapy at 3 L/min. Patient subsequently came in yesterday with hypotension. Today patient is reporting generalized body aches, but not able to provide much additional information. Patient reports that she has not had any surgeries or implantations of foreign material. Patient is not able to localize a particular pain source. Patient did receive significant fluid resuscitation yesterday. Objective Data Objective Data Vital Signs: Vital Signs Temp Pulse Resp BP Pulse Ox O2 Del Method O2 Flow Rate 36.6 C 77 16 137/67 H 94 Nasal Cannula 6 04/20/23 06:00 04/20/23 06:00 04/20/23 06:00 04/20/23 06:00 04/20/23 06:00 04/20/23 06:00 04/20/23 06:00 Oxygen Flow Rate (L/min) 6 Oxygen Delivery Method Nasal Cannula Weight: 127.8 kg Body Mass Index (BMI) 46.8 Intake & Output: Intake and Output for Last 24 Hours 04/18/23 04/19/23 04/20/23 23:59 23:59 23:59 Intake Total 4455.55 / 5255.55 1950 / 1950 Output Total 600 / 600 Balance 4455.55 / 4955.55 1350 / 1350 Lab / Micro Data Attestation: I reviewed the patient's lab results. 04/19/23 13:35 04/19/23 13:35 Labs: Laboratory Results - last 24 hr 04/19/23 13:35: WBC 16.2 H, RBC 3.50 L, Hgb 9.4 L, Hct 30.3 L, MCV 86.6, MCH 26.9 L, MCHC 31.0 L, RDW Std Deviation 46.6 H, RDW Coeff of Vlad 14.9 H, Plt Count 165, MPV 11.4, Immature Gran % (Auto) 2.000 H, Neut % (Auto) 78.7 H, Lymph % (Auto) 1.7 L, [place] % (Auto) 17.1 H, Eos % (Auto) 0.4, Baso % (Auto) 0.1, Absolute Neuts (auto) 12.7 H, Absolute Lymphs (auto) 0.28 L, Nucleated RBC % 0, Diff Path Review November, Sodium 139, Potassium 4.1, Chloride 101, Carbon Dioxide 32.0, Anion Gap 6, BUN 53 H, Creatinine 2.00 H, Estim Creat Clear Calc 25.23, Est GFR (MDRD) Af Amer 32 L, Est GFR (MDRD) Non-Af 27 L, BUN/Creatinine Ratio 26.5 H, Glucose 92, Lactic Acid 1.6, Calcium 8.9, Total Bilirubin 0.20, AST 18, ALT 24, Alkaline Phosphatase 52, Total Protein 6.4, Albumin 2.9 L, Globulin 3.5, Albumin/Globulin Ratio 0.8 L 04/19/23 14:32: Urine Color Yellow, Urine Clarity Sl. Cloudy, Urine pH 5.0, Ur Specific [place] 1.020, Urine Protein 500 H, Urine Glucose (UA) Normal, Urine Ketones 5 H, Urine Occult Blood 10 H, Urine Nitrite Negative, Urine Bilirubin Negative, Urine Urobilinogen Normal, Ur Leukocyte Esterase 25 H, Urine RBC 0 SEEN, Urine WBC 0-5 SEEN, Ur Squamous Epith Cells 0-5 SEEN, Ur Transition Epith Cell 0-5 SEEN, Amorphous Sediment 1+, Urine Bacteria 0 SEEN, Hyaline Casts 0-5 SEEN, Fine Granular Casts 0-5 SEEN, Urine Mucus 0 SEEN 04/19/23 18:10: Lactic Acid 0.9 04/19/23 21:57: POC Glucose 92 04/19/23 22:00: MRSA (PCR) POSITIVE H Micro: Microbiology 04/20/23 04:35 Mucosa - Nose Coronavirus COVID-19 PCR - Final 04/19/23 13:23 Blood Culture (Wb) - Venous Bacteria Detection (PCR) - Preliminary Staphylococcus aureus 04/19/23 13:23 Blood Culture (Wb) - Venous Blood Culture - Preliminary 04/19/23 13:35 Blood Culture (Wb) - Venous Blood Culture - Preliminary 04/19/23 13:13 Nasal Secretion SARS-CoV-2 & FLU Antigen (Rapid) - Final ABG Data ABG results: ABG 04/19/23 18:52 Specimen Type ART Sample Site R Radial pH 7.44 Bicarbonate Actual 27.4 H Total CO2 29 Base Excess 3 H O2 Saturation 98 O2 % 4.0 ABG pCO2 40.6 ABG pO2 96 Madi Test Positive O2 Delivery Device Cannula Vent Mode Not entered Radiography Diagnostic Testing: Radiology Impression Chest X-Ray 04/19/23 13:45 IMPRESSION: Overall improvement compared to the previous study with decreased interstitial edema compared to the previous study. Follow-up recommended to assure complete resolution Electronically Signed: King Hadley MD at 13:56 EDT , Rhythm Strip Rhythm Strip: Sinus Rhythm Rate: 80 Physical Exam Const alert, oriented x3 and well nourished Constitutional Narrative: Patient moaning with generalized aches General Appearance: cooperative and in distress Positive for moderate; Negative for ill appearing HEENT normocephalic, head/scalp atraumatic, hearing grossly normal bilaterally and moist oral mucous membranes Eyes PERRL and EOMs intact bilaterally Eyes Narrative: Conjunctiva are mildly pale bilaterally, scleral injection on the right with conjunctival hemorrhage on the left Neck no lymphadenopathy and supple General: trachea midline Resp Resp Narrative: No conversational dyspnea noted Auscultation: diminished lung sounds; Negative for rales, rhonchi or wheezes Cardio regular rate, regular rhythm, S1 normal heart sound, S2 normal heart sound, no murmurs, no rub, no gallops and no clicks GI normal to inspection, nondistended, normoactive bowel sounds and soft to palpation GI Narrative: Large protuberant abdomen. Patient does have generalized tenderness with palpation, but no rebound or guarding Extremity Extremity Narrative: Tenderness to palpation General Extremity: edema; Negative for clubbing Neuro oriented x3, CN's II-XII intact bilaterally and moves all extremities Neuro Narrative: Proximal muscle weakness noted Speech: speech normal Psych cooperative and affect normal Charges/Coding Visit Charges Inpatient E&M: 30885 Subs Hosp L3
[2023-04-20] MEDS: predniSONE 20 MG Tablet 40 MG PO (07:49)
[2023-04-20] MEDS: Acetaminophen 325 MG Tablet 650 MG PO ×3 (07:51→20:13)
--- NOTE | 2023-04-20 08:50 | PCM.PN.HOSP ---
Subjective Subjective Doing well, no issues overnight. Does not require pressors though she is and little bit of respiratory distress secondary to the amount of IV fluid she is received Objective Data Objective Data Vital Signs: Vital Signs Temp Pulse Resp BP Pulse Ox O2 Del Method O2 Flow Rate 99.5 F H 95 22 H 151/60 H 96 Nasal Cannula 6 04/20/23 08:00 04/20/23 08:00 04/20/23 08:00 04/20/23 08:00 04/20/23 08:00 04/20/23 08:00 04/20/23 08:00 Oxygen Flow Rate (L/min) 6 Oxygen Delivery Method Nasal Cannula Weight: 281 lb 12.012 oz Body Mass Index (BMI) 46.8 Intake & Output: Intake and Output for Last 24 Hours 04/19/23 04/20/23 04/21/23 03:59 03:59 03:59 Intake Total 5405.55 / 6205.55 1000 / 1000 Output Total 300 / 600 325 / 325 Balance 5105.55 / 5605.55 675 / 675 Lab / Micro Data 04/19/23 13:35 04/19/23 13:35 Labs: Laboratory Results - last 24 hr 04/19/23 13:35: WBC 16.2 H, RBC 3.50 L, Hgb 9.4 L, Hct 30.3 L, MCV 86.6, MCH 26.9 L, MCHC 31.0 L, RDW Std Deviation 46.6 H, RDW Coeff of Vlad 14.9 H, Plt Count 165, MPV 11.4, Immature Gran % (Auto) 2.000 H, Neut % (Auto) 78.7 H, Lymph % (Auto) 1.7 L, [place]gs % (Auto) 17.1 H, Eos % (Auto) 0.4, Baso % (Auto) 0.1, Absolute Neuts (auto) 12.7 H, Absolute Lymphs (auto) 0.28 L, Nucleated RBC % 0, Diff Path Review November, Sodium 139, Potassium 4.1, Chloride 101, Carbon Dioxide 32.0, Anion Gap 6, BUN 53 H, Creatinine 2.00 H, Estim Creat Clear Calc 25.23, Est GFR (MDRD) Af Amer 32 L, Est GFR (MDRD) Non-Af 27 L, BUN/Creatinine Ratio 26.5 H, Glucose 92, Lactic Acid 1.6, Calcium 8.9, Total Bilirubin 0.20, AST 18, ALT 24, Alkaline Phosphatase 52, Total Protein 6.4, Albumin 2.9 L, Globulin 3.5, Albumin/Globulin Ratio 0.8 L 04/19/23 14:32: Urine Color Yellow, Urine Clarity Sl. Cloudy, Urine pH 5.0, Ur Specific [place] 1.020, Urine Protein 500 H, Urine Glucose (UA) Normal, Urine Ketones 5 H, Urine Occult Blood 10 H, Urine Nitrite Negative, Urine Bilirubin Negative, Urine Urobilinogen Normal, Ur Leukocyte Esterase 25 H, Urine RBC 0 SEEN, Urine WBC 0-5 SEEN, Ur Squamous Epith Cells 0-5 SEEN, Ur Transition Epith Cell 0-5 SEEN, Amorphous Sediment 1+, Urine Bacteria 0 SEEN, Hyaline Casts 0-5 SEEN, Fine Granular Casts 0-5 SEEN, Urine Mucus 0 SEEN 04/19/23 18:10: Lactic Acid 0.9 04/19/23 21:57: POC Glucose 92 04/19/23 22:00: MRSA (PCR) POSITIVE H Micro: Microbiology 04/20/23 04:35 Mucosa - Nose Coronavirus COVID-19 PCR - Final 04/19/23 13:23 Blood Culture (Wb) - Venous Bacteria Detection (PCR) - Preliminary Staphylococcus aureus 04/19/23 13:23 Blood Culture (Wb) - Venous Blood Culture - Preliminary 04/19/23 13:35 Blood Culture (Wb) - Venous Blood Culture - Preliminary 04/19/23 13:13 Nasal Secretion SARS-CoV-2 & FLU Antigen (Rapid) - Final ABG Data ABG results: ABG 04/19/23 18:52 Specimen Type ART Sample Site R Radial pH 7.44 Bicarbonate Actual 27.4 H Total CO2 29 Base Excess 3 H O2 Saturation 98 O2 % 4.0 ABG pCO2 40.6 ABG pO2 96 Madi Test Positive O2 Delivery Device Cannula Vent Mode Not entered Radiography Diagnostic Testing: Radiology Impression Chest X-Ray 04/19/23 13:45 IMPRESSION: Overall improvement compared to the previous study with decreased interstitial edema compared to the previous study. Follow-up recommended to assure complete resolution Electronically Signed: King Hadley MD at 13:56 EDT , Rhythm Strip Rhythm Strip: Sinus Rhythm Rate: 80 Physical Exam Narrative General: Alert, Oriented x3, Cooperative, mild respiratory distress, complaints of body aches HEENT: Atraumatic, PERRLA, EOMI, Normocephalic Oral: Moist Mucosa Neck: Supple, No JVD Lungs: Diminished, Normal air movement, No rhonchi, No wheeze, No rales, tachypneic Cardiovascular: Regular rate, Regular Rhythm, Normal S1, Normal S2, No murmurs Abdomen: Soft, Non Tender, Non-Distended, No Hepato-splenomegaly Extremities: No edema, Capillary Refill Less than 3 Seconds Skin: No rashes, No breakdown Musculoskeletal: No Tenderness to Palpation of Joints or Extremities Neurological: Cranial nerves II-XII grossly intact, Motor Exam 5/5 strength throughout, Sensory exam intact to light touch and pain Psych/Mental Status: Flat Const alert, no apparent distress and well nourished; Negative for oriented x3, average body habitus or healthy appearing Constitutional Narrative: Morbidly obese, white female, lying in Trendelenburg, patient is oriented to place and self however she is somewhat confused on time, she appears ill/toxic, comfortable at this time General Appearance: cooperative HEENT normocephalic and head/scalp atraumatic; Negative for hearing grossly normal bilaterally, moist oral mucous membranes or dentition normal Eyes PERRL, EOMs intact bilaterally and conjunctivae normal Eyes Narrative: No scleral icterus, conjunctival hemorrhage has resolved on the left, scleral erythema has resolved on the right Neck no lymphadenopathy and supple Neck Narrative: Short and thick, trachea is midline, no thigh regiment Resp normal respiratory effort, no retractions, no use of accessory muscles and clear to auscultation bilaterally Resp Narrative: Extremely distant due to body habitus however no adventitious sounds appreciated Auscultation: Negative for rales, rhonchi or wheezes Cardio regular rate, S1 normal heart sound, S2 normal heart sound, no murmurs, no rub, no gallops and no clicks Cardio Narrative: Distant heart tones due to habitus and patient positioning GI normal to inspection, nondistended, normoactive bowel sounds, soft to palpation and non-tender GI Narrative: Large protuberant abdomen Extremity no clubbing, cyanosis or edema Extremity Narrative: Pulses are 1+ Skin no wounds, skin turgor normal, no jaundice, no petechiae and no mottling Skin Narrative: Skin breakdown noted in the intertrigo regions Neuro CN's II-XII intact bilaterally, moves all extremities and no focal motor deficits Neuro Narrative: She is awake however she drifts in and out of sleep Sensorium / Orientation: awake, alert, oriented to person and oriented to place Psych Psych Narrative: Affect is extremely flat and mood is depressed which is appropriate for current situation and likely related to her above presentation Assessment & Plan Assessment/Plan (1) Toxic metabolic encephalopathy: PLAN: Plan 1. Sepsis secondary to staph bacteremia with acute hypoxic respiratory failure with metabolic encephalopathy/[place] ? MRSA PCR is positive however will wait for sensitivities ? Will repeat blood cultures tomorrow if they remain positive will likely need to proceed with a CY ? Unclear as to the source ? Hypoxic respiratory failure secondary to significant fluid overload given that her blood pressures have been more we will hold off on any further fluids, can likely restart home Lasix in a day or 2 versus IV Lasix ? We will continue with her CPAP for sleep apnea 2. Eosinophilic pneumonia ? She was recently discharged very stable on steroids for was thought to be eosinophilic pneumonia ? Chest x-ray on admission is normal we will continue with steroid taper 3. DM2 with gastroparesis neuropathy ? Hold home agents ? Continue with insulin ? Accu-Cheks ACHS ? We will monitor and make adjustments as necessary ? Continue with Reglan, can resume her home eyedrops for her retinal hemorrhages 4. Hypothyroidism ? Stable ? Continue with Synthroid she did have a recently elevated TSH but in light of all of her acute issues will hold off on increasing her Synthroid until her issues are stabilized and she can be monitored as an outpatient 5. GERD ? Stable ? Continue with PPI 6. Hyperlipidemia ? Stable ? Continue with her home medications 7. Anxiety/depression ? Stable ? Continue with escitalopram DVT: Heparin Charges/Coding Visit Charges Inpatient E&M: 67626 Subs Hosp L2
[2023-04-20 08:54] LABS: Bedside Glucose 85 mg/dL (74-106)
[2023-04-20] MEDS: Pantoprazole Sodium 40 MG Tablet PO (09:24)
[2023-04-20] MEDS: Fenofibrate 48 MG Tablet PO (09:24)
[2023-04-20] MEDS: Metoclopramide 5 MG TABLET PO ×2 (09:24→20:05)
[2023-04-20] MEDS: Escitalopram Oxalate 10 MG Tablet PO (09:24)
[2023-04-20] MEDS: Gabapentin 100 MG Capsule 200 MG PO ×2 (09:25→19:59)
[2023-04-20 11:40] LABS: Anion Gap 4 (5-15); BUN 49 mg/dL (7-18); BUN/Creat Ratio 26.3 RATIO (10-20); Chloride 102 mmol/L (98-107); Creatinine, Serum 1.86 mg/dL (0.55-1.02); EST Glomerular Filtration Rate 29 mL/min (>60); Est Glom Filt Rate - Afr Amer 35 mL/min (>60); Estimated Creatinine Clearance 27.13 ml/min; Glucose 118 mg/dL (74-106); Magnesium 1.6 mg/dL (1.6-2.6); Phosphorus 3.3 mg/dL (2.5-4.9); Potassium 4.2 mmol/L (3.5-5.1); Sodium Level 134 mmol/L (136-145)
[2023-04-20 11:46] LABS: Bedside Glucose 122 mg/dL (74-106)
[2023-04-20] MEDS: Heparin Injection (Vial) 5,000 UNIT/ML VIAL 5000 UNIT SC ×2 (15:24→20:07)
[2023-04-20 17:57] LABS: Bedside Glucose 148 mg/dL (74-106)
[2023-04-20] MEDS: Vancomycin HCl 1,500 MG in 0.9% Normal Saline (500mL Bag) 500 ML 250 MG IV (18:32)
[2023-04-20] MEDS: Atorvastatin Calcium 10 MG Tablet PO (20:05)
[2023-04-20] MEDS: Insulin Glargine-YFGN 100 UNIT/ML Pen 49 UNIT SC (20:22)
[2023-04-20 20:42] LABS: Bedside Glucose 211 mg/dL (74-106)
[2023-04-21] VITALS (14 sets, daily range): BP systolic 111–170; BP diastolic 54–77; PULSE 64–72; RESP 10–20; TEMP 36.1–36.2; O2SAT 93–100; BMI 47.0
[2023-04-21] MEDS: Piperacil/Tazobactam 3.375 GM in 0.9% Normal Saline (50mL MB+) 50 ML IV ×3 (06:12→21:13)
[2023-04-21] MEDS: Levothyroxine 150 MCG Tablet PO (06:12)
[2023-04-21] MEDS: Pramipexole Di-HCl 0.125 MG Tablet 0.375 MG PO ×3 (06:13→21:15)
[2023-04-21] MEDS: Acetaminophen 325 MG Tablet 650 MG PO ×2 (06:20→21:14)
[2023-04-21] MEDS: Heparin Injection (Vial) 5,000 UNIT/ML VIAL 5000 UNIT SC ×3 (06:20→21:13)
--- NOTE | 2023-04-21 06:51 | PN.CC_ITS ---
Assessment & Plan Assessment/Plan (1) Hypoxia: (2) Morbid (severe) obesity due to excess calories: (3) Diabetes mellitus with diabetic polyneuropathy: (4) Thrombocytopenia: PLAN: Plan RECOMMENDATIONS: 1. Continue empiric antibiotics. 2. Obtain repeat blood cultures. 3. Obtain follow-up chest x-ray. 4. Obtain infectious diseases consultation. 5. Wean prednisone over the course of the next 2 weeks. 6. Encourage incentive spirometer use and mobilize patient as tolerated. 7. The patient is medically stable for transfer out of the intensive care unit. 8. Follow-up with Dr. Ram following discharge. IMPRESSIONS: 1. Sepsis secondary to staph bacteremia Unclear etiology. The patient presented with hypotension and increasing leukocytosis. No obvious source of infection has been identified. Plan to repeat blood cultures today. Will obtain follow-up chest x-ray. Lastly, infectious diseases consultation will be obtained. Ultimately, the patient may require an echocardiogram. 2. Recent hospitalization for eosinophilic pneumonia The patient was recently hospitalized and treated at that time with steroids for presumptive eosinophilic pneumonia. Her subsequent chest imaging demonstrated improvement. Plan to continue to wean steroids over the course of the next 2 weeks. The patient should follow-up with Dr. Ram on an outpatient basis, as previously planned. Continue to wean supplemental oxygen to maintain saturations at or above 90%. 3. Morbid obesity/diabetes mellitus/hypothyroidism/obstructive sleep apnea/depression/hyperlipidemia Complicates care, management, recovery and prognosis. Continue home medications as indicated. Recommend outpatient follow-up to address the patient's underlying sleep apnea. This note was generated with [employer] dictation software. It may contain incorrect words, spelling, and punctuation that were not noted in checking the note before signing. Subjective Subjective The patient was seen and examined at the bedside this morning. Events from the last 24 hours have been reviewed. The patient is currently afebrile, hemodynamically stable and maintaining appropriate oxygen saturations on 3 L/min via nasal cannula. The patient is currently documented to be overall net +6 L for the hospitalization. She also reports the presence of left shoulder discomfort this morning. Objective Data Objective Data The patient's most recent lab work, culture data and imaging studies have all been personally reviewed. Blood cultures are currently demonstrating growth of Staph aureus. Vital Signs: Vital Signs Temp Pulse Resp BP Pulse Ox O2 Del Method O2 Flow Rate 97.1 F L 71 15 126/69 H 99 Nasal Cannula 3 04/21/23 03:00 04/21/23 06:00 04/21/23 06:00 04/21/23 06:00 04/21/23 06:00 04/21/23 06:00 04/21/23 06:00 FiO2 30 04/21/23 04:30 Oxygen Flow Rate (L/min) 3 Oxygen Delivery Method Nasal Cannula Weight: 282 lb 3.067 oz Body Mass Index (BMI) 47.0 Intake & Output: Intake and Output for Last 24 Hours 04/19/23 04/20/23 04/21/23 23:59 23:59 23:59 Intake Total 4455.55 / 5255.55 3760 / 3760 350 / 350 Output Total 1625 / 1625 900 / 900 Balance 4455.55 / 4955.55 2135 / 2135 -550 / -550 Lab / Micro Data Attestation: I reviewed the patient's lab results. 04/19/23 13:35 04/20/23 11:15 Labs: Laboratory Results - last 24 hr 04/20/23 08:32: POC Glucose 85 04/20/23 11:15: Sodium 134 L, Potassium 4.2, Chloride 102, Carbon Dioxide 28.0, Anion Gap 4 L, BUN 49 H, Creatinine 1.86 H, Estim Creat Clear Calc 27.13, Est GFR (MDRD) Af Amer 35 L, Est GFR (MDRD) Non-Af 29 L, BUN/Creatinine Ratio 26.3 H , Glucose 118 H, Calcium 8.0 L, Phosphorus 3.3, Magnesium 1.6 04/20/23 11:28: POC Glucose 122 H 04/20/23 17:40: POC Glucose 148 H 04/20/23 20:21: POC Glucose 211 H Micro: Microbiology 04/19/23 13:23 Blood Culture (Wb) - Venous Bacteria Detection (PCR) - Final Staphylococcus aureus 04/19/23 13:23 Blood Culture (Wb) - Venous Blood Culture - Preliminary 04/20/23 04:35 Mucosa - Nose Coronavirus COVID-19 PCR - Final 04/19/23 13:35 Blood Culture (Wb) - Venous Blood Culture - Preliminary 04/19/23 13:13 Nasal Secretion SARS-CoV-2 & FLU Antigen (Rapid) - Final Rhythm Strip Rhythm Strip: Sinus Rhythm Rate: 80 Physical Exam Const alert and no apparent distress Constitutional Narrative: Morbidly obese. Sitting upright in bed. General Appearance: cooperative HEENT normocephalic and head/scalp atraumatic Eyes PERRL, EOMs intact bilaterally and conjunctivae normal Neck supple General: trachea midline Chest inspection of chest normal Resp normal respiratory effort Auscultation: diminished lung sounds; Negative for rales, rhonchi or wheezes Cardio regular rate and regular rhythm GI normal to inspection, nondistended, normoactive bowel sounds Extremity General Extremity: edema; Negative for clubbing Skin no rashes or lesions noted Neuro CN's II-XII intact bilaterally, moves all extremities and no focal motor deficits Psych cooperative and affect normal Charges/Coding Visit Charges Inpatient E&M: 39435 Subs Hosp L2
--- NOTE | 2023-04-21 08:00 | RAD_ITS ---
STUDY: X-RAY CHEST REASON FOR EXAM: Female, 63 years old. Bacteremia TECHNIQUE: Single AP portable view of the chest. COMPARISON: Comparison is made with prior study dated April 19, 2023. FINDINGS: EKG electrodes are seen. Residual increased linear markings in the left mid lung and right lung base although there has been further improvement. There is no demonstrated pleural abnormality. There is mild cardiac enlargement. Normal mediastinum and rebekah. Normal visualized pulmonary arteries. Normal visualized aortic arch and descending thoracic aorta. There are degenerative changes of the visualized thoracic spine. Normal visualized ribs, clavicles, and shoulders. There is no demonstrated abnormality of the visualized soft tissue structures of the upper abdomen. RAD/Chest 1 View (Portable) IMPRESSION: Mild residual increased markings in the left midlung and right lung base although there has been improvement. Electronically Signed: Maximo Obrien MD at 8:24 EDT ,
[2023-04-21] MEDS: Escitalopram Oxalate 10 MG Tablet PO (08:27)
[2023-04-21] MEDS: predniSONE 20 MG Tablet 40 MG PO (08:27)
[2023-04-21] MEDS: Metoclopramide 5 MG TABLET PO ×2 (08:27→21:14)
[2023-04-21] MEDS: Pantoprazole Sodium 40 MG Tablet PO (08:27)
[2023-04-21] MEDS: Fenofibrate 48 MG Tablet PO (08:27)
[2023-04-21] MEDS: Gabapentin 100 MG Capsule 200 MG PO ×2 (08:29→21:14)
--- NOTE | 2023-04-21 08:46 | PN.HOSP_ITS ---
Subjective Subjective Doing well, no issues overnight feeling a little bit better Objective Data Objective Data Vital Signs: Vital Signs Temp Pulse Resp BP Pulse Ox O2 Del Method O2 Flow Rate 97.1 F L 68 15 135/77 H 100 Nasal Cannula 3 04/21/23 03:00 04/21/23 08:00 04/21/23 08:00 04/21/23 08:00 04/21/23 08:00 04/21/23 08:00 04/21/23 08:00 FiO2 30 04/21/23 04:30 Oxygen Flow Rate (L/min) 3 Oxygen Delivery Method Nasal Cannula Weight: 282 lb 3.067 oz Body Mass Index (BMI) 47.0 Intake & Output: Intake and Output for Last 24 Hours 04/20/23 04/21/23 04/22/23 03:59 03:59 03:59 Intake Total 5405.55 / 6205.55 2860 / 2860 300 / 300 Output Total 300 / 600 1325 / 1325 900 / 900 Balance 5105.55 / 5605.55 1535 / 1535 -600 / -600 Lab / Micro Data 04/19/23 13:35 04/20/23 11:15 Labs: Laboratory Results - last 24 hr 04/20/23 08:32: POC Glucose 85 04/20/23 11:15: Sodium 134 L, Potassium 4.2, Chloride 102, Carbon Dioxide 28.0, Anion Gap 4 L, BUN 49 H, Creatinine 1.86 H, Estim Creat Clear Calc 27.13, Est GFR (MDRD) Af Amer 35 L, Est GFR (MDRD) Non-Af 29 L, BUN/Creatinine Ratio 26.3 H , Glucose 118 H, Calcium 8.0 L, Phosphorus 3.3, Magnesium 1.6 04/20/23 11:28: POC Glucose 122 H 04/20/23 17:40: POC Glucose 148 H 04/20/23 20:21: POC Glucose 211 H Micro: Microbiology 04/19/23 13:23 Blood Culture (Wb) - Venous Bacteria Detection (PCR) - Final Staphylococcus aureus 04/19/23 13:23 Blood Culture (Wb) - Venous Blood Culture - Preliminary 04/20/23 04:35 Mucosa - Nose Coronavirus COVID-19 PCR - Final 04/19/23 13:35 Blood Culture (Wb) - Venous Blood Culture - Preliminary 04/19/23 13:13 Nasal Secretion SARS-CoV-2 & FLU Antigen (Rapid) - Final Radiography Diagnostic Testing: Radiology Impression Chest X-Ray 04/21/23 08:00 IMPRESSION: Mild residual increased markings in the left midlung and right lung base although there has been improvement. Electronically Signed: Maximo Obrien MD at 8:24 EDT , Rhythm Strip Rhythm Strip: Sinus Rhythm Rate: 80 Physical Exam Narrative General: Alert, Oriented x3, Cooperative, no acute distress HEENT: Atraumatic, PERRLA, EOMI, Normocephalic Oral: Moist Mucosa Neck: Supple, No JVD Lungs: Diminished, Normal air movement, No rhonchi, No wheeze, No rales Cardiovascular: Regular rate, Regular Rhythm, Normal S1, Normal S2, No murmurs Abdomen: Soft, Non Tender, Non-Distended, No Hepato-splenomegaly Extremities: No edema, Capillary Refill Less than 3 Seconds Skin: No rashes, No breakdown Musculoskeletal: No Tenderness to Palpation of Joints or Extremities Neurological: Cranial nerves II-XII grossly intact, Motor Exam 5/5 strength throughout, Sensory exam intact to light touch and pain Psych/Mental Status: Flat Assessment & Plan Assessment/Plan (1) Toxic metabolic encephalopathy: PLAN: Plan 1. Sepsis secondary to staph bacteremia with acute on chronic hypoxic respiratory failure with metabolic encephalopathy/[place] ? MRSA PCR is positive however will wait for sensitivities, no obvious source of infection at this time ? Repeat blood cultures today ?Respiratory failure has apparently resolved she is now back to her baseline oxygen requirement possible component of flash pulmonary edema with amount of IV fluids given ? We will continue with her CPAP for sleep apnea 2. Eosinophilic pneumonia ? She was recently discharged very stable on steroids for was thought to be eosi nophilic pneumonia ? Chest x-ray on admission is normal we will continue with steroid taper 3. DM2 with gastroparesis neuropathy ? Hold home agents ? Continue with insulin ? Accu-Cheks ACHS ? We will monitor and make adjustments as necessary ? Continue with Reglan, can resume her home eyedrops for her retinal hemorrhages 4. Hypothyroidism ? Stable ? Continue with Synthroid she did have a recently elevated TSH but in light of all of her acute issues will hold off on increasing her Synthroid until her issues are stabilized and she can be monitored as an outpatient 5. GERD ? Stable ? Continue with PPI 6. Hyperlipidemia ? Stable ? Continue with her home medications 7. Anxiety/depression ? Stable ? Continue with escitalopram DVT: Heparin Charges/Coding Visit Charges Inpatient E&M: 27575 Subs Hosp L2
[2023-04-21 08:47] LABS: Bedside Glucose 138 mg/dL (74-106)
--- NOTE | 2023-04-21 10:52 | CASEMGMT ---
Discharge Planning Updates faxed to [facility]. Louise King, Discharge Planning Asst.
[2023-04-21 11:27] LABS: Bedside Glucose 175 mg/dL (74-106)
[2023-04-21 13:20] LABS: Pathologist Review Reviewed
--- NOTE | 2023-04-21 13:42 | CASEMGMT ---
Social Work Patient has living will and power of attorney general- identified as her brother. Documents have not been brought in to be scanned into medical record. Genoveva Abrams, COMBINATION MAN, M[employer] PROJECT MANAGER
--- NOTE | 2023-04-21 13:54 | CASEMGMT ---
Social Work Patient states that she has a living will and identified power of assistant prosecuting attorney. Patient states that her brother, Verenice Brito Jr. is her power of assistant prosecuting attorney. Patient states that they just had the documents redone and she is waiting on hard copy to be returned to her. Pt encouraged to bring in hard copy to be put in medical record. Genoveva Abrams, COOKER MECHANIC, COORDINATOR CARDIOPULMONARY SERVICES
[2023-04-21] MEDS: Arthritis Pain Compound 60 CLICK TUBE TOPICAL (14:37)
--- NOTE | 2023-04-21 14:49 | PCM.CONS.GEN ---
Assessment & Plan Assessment/Plan (1) Sepsis: PLAN: MSSA bacteremia per pcr. Will stop vanc, cont zosyn for now. Repeat bcx pending, will repeat TTE. Will follow, thank you HPI Consult Data Date of Consult: 04/21/23 HPI Narrative Reason for Consultation: bacteremia HPI Narrative: TOBIN BIGGS, is a 63 F who presented from [facility] 04/19 with lethargy, fever. Had been discharged the day prior after admit for resp failure, given steroids for eosinophilic pneumonia. No new lines in place, did have some BLE edema with open drainage. No boils/abscess. Came to ED here, admitted, on vanc/zosyn, now Bcx x2 (+). No new joint or back pain, but shoulders are a little sore. Full ROS performed and neg except as noted above. [facility] Medical History Anxiety and depression Chronic acquired lymphedema Chronic anemia CKD (chronic kidney disease), stage III Diabetes mellitus, type 2 HLD (hyperlipidemia) HTN (hypertension) Hypothyroidism Hypoxia Morbid obesity SACHIN (obstructive sleep apnea) Retinal hemorrhage Home Medications atorvastatin 10 mg tablet 10 mg PO DAILY cholesterol 09/24/22 [History Last Taken 04/13/23] escitalopram oxalate 10 mg tablet 10 mg PO DAILY anxiety 09/24/22 [History Last Taken 04/13/23] fenofibrate nanocrystallized 48 mg tablet (Tricor) 48 mg PO DAILY cholesterol 09/24/22 [History Last Taken 04/13/23] pantoprazole 40 mg tablet,delayed release 40 mg PO DAILY HEARTBURN 09/24/22 [History Last Taken 11/15/22] levofloxacin 750 mg tablet 750 mg PO DAILY SEE PCP #7 tabs 11/18/22 [Rx Last Taken Unknown] aspirin 81 mg tablet,delayed release (Adult Low Dose Aspirin) 81 mg PO DAILY 03/05/23 [History Last Taken Unknown] exenatide microspheres 2 mg subcutaneous extended release suspension mg subcut 03/05/23 [History Last Taken Unknown] furosemide 20 mg tablet (Lasix) 20 mg PO DAILY EDEMA 03/05/23 [History Last Taken 04/13/23] gabapentin 100 mg capsule 200 mg PO BID PAIN 03/05/23 [History Last Taken 04/13/23] glipizide 10 mg tablet 10 mg PO BID 03/05/23 [History Last Taken Unknown] insulin glargine 100 unit/mL subcutaneous solution 45 unit subcut QHS 03/05/23 [History Last Taken Unknown] levothyroxine 150 mcg tablet 150 mcg PO DAILY@0600 SEE PCP 03/05/23 [History Last Taken Unknown] metformin 1,000 mg tablet 1,000 mg PO BID 03/05/23 [History Last Taken Unknown] ropinirole 4 mg tablet 4 mg PO QHS 03/05/23 [History Last Taken Unknown] sitagliptin phosphate 100 mg tablet (Januvia) 100 mg PO DAILY 03/05/23 [History Last Taken Unknown] triamcinolone acetonide 0.1 % topical cream 1 applic topical TID 03/05/23 [History Last Taken Unknown] dulaglutide 0.75 mg/0.5 mL subcutaneous pen injector (Trulicity) mg subcut 04/14/23 [History Last Taken Unknown] fluconazole 100 mg tablet 150 mg PO QWEEK SEE PCP 04/14/23 [History Last Taken Unknown] gabapentin 400 mg capsule 400 mg PO QHS SEE PCP 04/14/23 [History Last Taken 04/13/23] insulin glargine 100 unit/mL (3 mL) subcutaneous pen (Lantus Solostar U-100 Insulin) 49 unit subcut QHS SEE PCP 04/14/23 [History Last Taken Unknown] insulin lispro 100 unit/mL subcutaneous pen 1 sliding scale dose subcut TIDCM SEE PCP 04/14/23 [History Last Taken Unknown] metoclopramide HCl 5 mg tablet 5 mg PO BID SEE PCP 04/14/23 [History Last Taken Unknown] omega 4-oti-yqy-fish oil 300 mg-1,000 mg capsule (Fish Oil) 1 cap PO BID VITAMIN 04/14/23 [History Last Taken 04/13/23] pen needle, diabetic 31 gauge x 1/4 (Easy Touch) 04/14/23 [History Last Taken Unknown] potassium chloride 10 mEq capsule,extended release 10 meq PO DAILY SEE PCP 04/14/23 [History Last Taken Unknown] artifi.tears(hypromellose)(PF) 0.3 % eye drops 1 drp EACH EYE Q2H PRN retinal hemmorage 04/15/23 [History Last Taken Unknown] prednisone 10 mg tablet 40 mg (4 x 10 mg) PO DAILY #42 tabs 04/18/23 [Rx Last Taken Unknown] Allergy/AdvReac Type Severity Reaction Status Date / Time No Known Allergies Allergy Verified 04/14/23 16:28 Family History Mother Heart disease Hypertension Diabetes Father Prostate cancer Surgical History H/O cataract removal with insertion of prosthetic lens History of cholecystectomy History of surgery on lower extremity Social History housing: correction Smoking Status: Never smoker alcohol intake: never substance use type: does not use Physical Exam Const alert, oriented x3 and no apparent distress General Appearance: cooperative HEENT normocephalic and head/scalp atraumatic Eyes PERRL and EOMs intact bilaterally Neck supple and No nodes Resp normal air movement and clear to auscultation bilaterally Cardio regular rate and regular rhythm GI soft to palpation, non-tender and non-distended Extremity General Extremity: edema Skin no rashes or lesions noted Skin Narrative: no splinter hemorrhages on hands Neuro CN's II-XII intact bilaterally Lab / Micro Data Attestation: I reviewed the patient's lab results. 04/19/23 13:35 04/20/23 11:15 Labs: Laboratory Results - last 24 hr 04/19/23 13:35: Diff Path Review Reviewed 04/20/23 17:40: POC Glucose 148 H 04/20/23 20:21: POC Glucose 211 H 04/21/23 08:05: POC Glucose 138 H 04/21/23 11:08: POC Glucose 175 H Micro: Microbiology 04/19/23 13:35 Blood Culture (Wb) - Venous Blood Culture - Preliminary Staphylococcus aureus 04/19/23 13:23 Blood Culture (Wb) - Venous Bacteria Detection (PCR) - Final Staphylococcus aureus 04/19/23 13:23 Blood Culture (Wb) - Venous Blood Culture - Preliminary Staphylococcus aureus 04/19/23 14:32 Urine Catheter - Catheter Urine Culture - Preliminary Beta streptococcus Rhythm Strip Rhythm Strip: Sinus Rhythm Rate: 80 Radiology Impression Chest X-Ray 04/21/23 08:00 IMPRESSION: Mild residual increased markings in the left midlung and right lung base although there has been improvement. Electronically Signed: Maximo Obrien MD at 8:24 EDT ,
[2023-04-21 17:15] LABS: Bedside Glucose 307 mg/dL (74-106)
[2023-04-21] MEDS: Insulin Lispro 100 UNIT/ML INSULN.PEN SC (19:17)
[2023-04-21 19:47] LABS: Vancomycin, Trough Level 16.5 ug/mL (5.0-15.0)
--- NOTE | 2023-04-21 20:20 | PCM.RX.CS ---
Consult Antibiotic Management Pharmacy has been consulted to manage selected antiobiotic: Vancomycin Type of Intervention Type of Consult: Follow-up Suspected Infection Suspected Infection: Sepsis Prior Doses of Antibiotics Prior Doses of Antibiotics Received/Current Regimen: Currently on 1500mg iv q24h. Labs Labs: Sodium 134 mmol/L (136-145) L 04/20/23 11:15 Potassium 4.2 mmol/L (3.5-5.1) 04/20/23 11:15 Chloride 102 mmol/L (98-107) 04/20/23 11:15 Carbon Dioxide 28.0 mmol/L (21.0-32.0) 04/20/23 11:15 Anion Gap 4 (5-15) L 04/20/23 11:15 BUN 49 mg/dL (7-18) H 04/20/23 11:15 Creatinine 1.86 mg/dL (0.55-1.02) H 04/20/23 11:15 Est GFR (MDRD) Af Amer 35 mL/min (>60) L 04/20/23 11:15 Est GFR (MDRD) Non-Af 29 mL/min (>60) L 04/20/23 11:15 BUN/Creatinine Ratio 26.3 RATIO (10-20) H 04/20/23 11:15 Glucose 118 mg/dL (74-106) H 04/20/23 11:15 Vancomycin Trough 16.5 ug/mL (5.0-15.0) H 04/21/23 19:14 Microbiology Microbiology: Microbiology 04/19/23 13:35 Blood Culture (Wb) - Venous Blood Culture - Preliminary Staphylococcus aureus 04/19/23 13:23 Blood Culture (Wb) - Venous Bacteria Detection (PCR) - Final Staphylococcus aureus 04/19/23 13:23 Blood Culture (Wb) - Venous Blood Culture - Preliminary Staphylococcus aureus 04/19/23 14:32 Urine Catheter - Catheter Urine Culture - Preliminary Beta streptococcus 04/20/23 04:35 Mucosa - Nose Coronavirus COVID-19 PCR - Final 04/19/23 13:13 Nasal Secretion SARS-CoV-2 & FLU Antigen (Rapid) - Final Dosing Weight Weight used for dosin kg Estimated Creatinine Clearance Estimated Creatinine Clearance: 41ml/min Goal Trough Goal Trough: 15-20 mcg/mL Pharmacy Plan for Drug Dosing Pharmacy Plan for Drug Dosing: Trough today 16.5 and in therapeutic range. Renal CrCl ~41 using adjusted body weight 85.4kg. Continue same dose with repeat trough before another 3rd dose. Pharmacy Service will continue to monitor and adjust dosing as required. Follow-Up Labs Follow-Up Labs: Trough: Vancomycin (10.4.23 1800 before 1830 dose)
[2023-04-21] MEDS: Vancomycin HCl 1,500 MG in 0.9% Normal Saline (500mL Bag) 500 ML 250 MG IV (21:13)
[2023-04-21] MEDS: Atorvastatin Calcium 10 MG Tablet PO (21:14)
[2023-04-21] MEDS: Insulin Glargine-YFGN 100 UNIT/ML Pen 49 UNIT SC (21:15)
[2023-04-21 21:17] LABS: Bedside Glucose 362 mg/dL (74-106)
[2023-04-22] VITALS (7 sets, daily range): BP systolic 132–178; BP diastolic 61–75; PULSE 63–75; RESP 15–18; TEMP 36–36.4; O2SAT 94–98; BMI 47.4
--- NOTE | 2023-04-22 02:33 | CPS ---
Pt refused PAP therapy for the night.
[2023-04-22 03:44] LABS: Hemoglobin 7.7 g/dL (12.0-15.0); Mean Corp Hgb Conc 30.8 g/dL (32-36); Mean Corpuscular Volume 84.5 fL (81-99); Mean Platelet Vol. 12.6 fl (6.2-12.0); POSITIVE COUNT YES; POSITIVE DIFFERENTIAL YES; POSITIVE MORPHOLOGY YES; Platelet Count 83 K/mm3 (150-450); RBC Distribution Width CV 14.6 % (11.6-14.6); RBC Distribution Width SD 45.1 fl (35.1-43.9); Red Blood Count 2.96 M/mm3 (4.2-5.4); White Blood Count 3.3 K/mm3 (4.4-11.0)
[2023-04-22 04:18] LABS: Anion Gap 6 (5-15); BUN 43 mg/dL (7-18); Calcium,Total 8.1 mg/dL (8.5-10.1); Chloride 103 mmol/L (98-107); Creatinine, Serum 1.79 mg/dL (0.55-1.02); EST Glomerular Filtration Rate 30 mL/min (>60); Est Glom Filt Rate - Afr Amer 37 mL/min (>60); Estimated Creatinine Clearance 28.19 ml/min; Glucose 356 mg/dL (74-106); Potassium 4.2 mmol/L (3.5-5.1); Sodium Level 135 mmol/L (136-145)
[2023-04-22 05:00] LABS: Differential Indicated MANUAL DIFF
[2023-04-22 05:04] LABS: Anisocytosis 1+; Hypochromasia 1+; Platelet Estimate MOD DEC (ADEQ)
[2023-04-22 05:05] LABS: Absolute Lymphocyte Count 0.59 X10^3/uL (0.83-4.51); Absolute Neutrophil Count 2.2 X10^3/uL (2.0-7.7); Atypical Lymphocyte 1+ %; Lymphocyte 18 % (19-41); Metamyelocyte 3 % (0-1); Myelocyte 3 % (0-0); Neutrophil-Band 16 % (0-5); Neutrophil-Segmented 51 % (47-70); Promyelocyte 1 % (0-0); Total Cells Counted 100 (MANUAL DIFF)
[2023-04-22 05:06] LABS: Eosinophil 1 % (0-5); Monocyte 7 % (0-10)
[2023-04-22] MEDS: Piperacil/Tazobactam 3.375 GM in 0.9% Normal Saline (50mL MB+) 50 ML IV (05:44)
[2023-04-22] MEDS: Heparin Injection (Vial) 5,000 UNIT/ML VIAL 5000 UNIT SC ×3 (05:45→21:19)
[2023-04-22] MEDS: Pramipexole Di-HCl 0.125 MG Tablet 0.375 MG PO ×3 (05:45→21:19)
[2023-04-22] MEDS: Levothyroxine 150 MCG Tablet PO (05:45)
[2023-04-22] MEDS: Insulin Lispro 100 UNIT/ML INSULN.PEN SC ×4 (06:00→21:20)
[2023-04-22 06:18] LABS: Bedside Glucose 285 mg/dL (74-106)
--- NOTE | 2023-04-22 07:06 | PCM.PN.INT ---
Assessment & Plan Assessment/Plan (1) Hypoxia: (2) Morbid (severe) obesity due to excess calories: (3) Diabetes mellitus with diabetic polyneuropathy: (4) Thrombocytopenia: PLAN: Plan RECOMMENDATIONS: 1. Continue antibiotics per ID recommendations. 2. Wean prednisone over the course of the next 2 weeks. 3. Encourage incentive spirometer use and mobilize patient as tolerated. 4. Follow-up with Dr. Ram following discharge. IMPRESSIONS: 1. Sepsis secondary to staph bacteremia Unclear etiology. The patient presented with hypotension and increasing leukocytosis. No obvious source for the patient's bacteremia has been identified. Follow-up blood cultures are pending. Infectious diseases is following to assist with medical management. 2. Recent hospitalization for eosinophilic pneumonia The patient was recently hospitalized and treated at that time with steroids for presumptive eosinophilic pneumonia. Her subsequent chest imaging demonstrated improvement. Plan to continue to wean steroids over the course of the next 2 weeks. The patient should follow-up with Dr. Ram on an outpatient basis, as previously planned. Continue to wean supplemental oxygen to maintain saturations at or above 90%. 3. Morbid obesity/diabetes mellitus/hypothyroidism/obstructive sleep apnea/depression/hyperlipidemia Complicates care, management, recovery and prognosis. Continue home medications as indicated. Recommend outpatient follow-up to address the patient's underlying sleep apnea. This note was generated with [employer] dictation software. It may contain incorrect words, spelling, and punctuation that were not noted in checking the note before signing. Subjective Subjective The patient was seen and examined at the bedside this morning. Events from the last 24 hours have been reviewed. The patient is currently afebrile, hemodynamically stable and maintaining appropriate oxygen saturations on 2 L/min via nasal cannula. No overnight issues were identified by the nursing staff. Hemoglobin is down to 7.7 g/dL this morning. Creatinine has improved to 1.79. Objective Data Objective Data The patient's most recent lab work, culture data and imaging studies have all been personally reviewed. Blood cultures are currently demonstrating growth of Staph aureus. Vital Signs: Vital Signs Temp Pulse Resp BP Pulse Ox O2 Del Method O2 Flow Rate 97.6 F L 68 16 153/70 H 96 Nasal Cannula 2 04/22/23 04:00 04/22/23 04:00 04/22/23 04:00 04/22/23 04:00 04/22/23 04:00 04/22/23 04:00 04/22/23 04:00 FiO2 30 04/21/23 04:30 Oxygen Flow Rate (L/min) 2 Oxygen Delivery Method Nasal Cannula Weight: 284 lb 9.868 oz Body Mass Index (BMI) 47.4 Intake & Output: Intake and Output for Last 24 Hours 04/20/23 04/21/23 04/22/23 23:59 23:59 23:59 Intake Total 3760 / 3760 1440 / 1440 50 / 50 Output Total 1625 / 1625 1300 / 2300 1100 / 1100 Balance 2135 / 2135 140 / -860 -1050 / -1050 Lab / Micro Data Attestation: I reviewed the patient's lab results. 04/22/23 03:30 04/22/23 03:30 Labs: Laboratory Results - last 24 hr 04/19/23 13:35: Diff Path Review Reviewed 04/21/23 08:05: POC Glucose 138 H 04/21/23 11:08: POC Glucose 175 H 04/21/23 16:57: POC Glucose 307 H 04/21/23 19:14: Vancomycin Trough 16.5 H 04/21/23 20:51: POC Glucose 362 H 04/22/23 03:30: WBC 3.3 L, RBC 2.96 L, Hgb 7.7 L, Hct 25.0 L, MCV 84.5, MCH 26.0 L, MCHC 30.8 L, RDW Std Deviation 45.1 H, RDW Coeff of Vlad 14.6, Plt Count 83 L, MPV 12.6 H, Neut % (Auto) Not Reportable, Absolute Neuts (auto) 2.2, Absolute Lymphs (auto) 0.59 L, Total Counted 100, Neutrophils % (Manual) 51, Band Neutrophils % 16 H, Lymphocytes % (Manual) 18 L, Monocytes % (Manual) 7, Eosinophils % (Manual) 1, Metamyelocytes % 3 H, Myelocytes % 3 H, Promyelocytes % 1 H, Diff Path Review May foll, Atypical Lymphocytes 1+, Platelet Estimate MOD DEC, Hypochromasia 1+, Anisocytosis 1+, Sodium 135 L, Potassium 4.2, Chloride 103, Carbon Dioxide 26.0, Anion Gap 6, BUN 43 H, Creatinine 1.79 H, Estim Creat Clear Calc 28.19, Est GFR (MDRD) Af Amer 37 L, Est GFR (MDRD) Non-Af 30 L, BUN/Creatinine Ratio 24.0 H, Glucose 356 H, Calcium 8.1 L 04/22/23 05:57: POC Glucose 285 H Micro: Microbiology 04/19/23 13:35 Blood Culture (Wb) - Venous Blood Culture - Preliminary Staphylococcus aureus 04/19/23 13:23 Blood Culture (Wb) - Venous Bacteria Detection (PCR) - Final Staphylococcus aureus 04/19/23 13:23 Blood Culture (Wb) - Venous Blood Culture - Preliminary Staphylococcus aureus 04/19/23 14:32 Urine Catheter - Catheter Urine Culture - Preliminary Beta streptococcus 04/20/23 04:35 Mucosa - Nose Coronavirus COVID-19 PCR - Final 04/19/23 13:13 Nasal Secretion SARS-CoV-2 & FLU Antigen (Rapid) - Final Radiography Diagnostic Testing: Radiology Impression Chest X-Ray 04/21/23 08:00 IMPRESSION: Mild residual increased markings in the left midlung and right lung base although there has been improvement. Electronically Signed: Maximo Obrien MD at 8:24 EDT , Rhythm Strip Rhythm Strip: Sinus Rhythm Rate: 80 Physical Exam Const alert and no apparent distress Constitutional Narrative: Morbidly obese. Sitting in bedside recliner. General Appearance: cooperative HEENT normocephalic and head/scalp atraumatic Eyes PERRL, EOMs intact bilaterally and conjunctivae normal Neck supple General: trachea midline Chest inspection of chest normal Resp normal respiratory effort Auscultation: diminished lung sounds; Negative for rales, rhonchi or wheezes Cardio regular rate and regular rhythm GI normal to inspection, nondistended, normoactive bowel sounds Extremity General Extremity: edema; Negative for clubbing Skin no rashes or lesions noted Neuro CN's II-XII intact bilaterally, moves all extremities and no focal motor deficits Psych cooperative and affect normal Charges/Coding Visit Charges Inpatient E&M: 27477 Subs Hosp L2
[2023-04-22] MEDS: predniSONE 20 MG Tablet 40 MG PO (08:20)
[2023-04-22] MEDS: Escitalopram Oxalate 10 MG Tablet PO (09:59)
[2023-04-22] MEDS: Fenofibrate 48 MG Tablet PO (09:59)
[2023-04-22] MEDS: Metoclopramide 5 MG TABLET PO ×2 (09:59→21:19)
[2023-04-22] MEDS: Gabapentin 100 MG Capsule 200 MG PO ×2 (09:59→21:19)
[2023-04-22] MEDS: Pantoprazole Sodium 40 MG Tablet PO (09:59)
[2023-04-22] MEDS: Cefazolin 2 GM in 0.9% Normal Saline (100mL Bag) 100 ML IV ×2 (09:59→21:19)
[2023-04-22] MEDS: Arthritis Pain Compound 60 CLICK TUBE TOPICAL (10:00)
--- NOTE | 2023-04-22 10:35 | PCM.PN.ID ---
Physical Exam Narrative Feeling better, no fever, no n/v/d. Const alert and no apparent distress General Appearance: cooperative Resp normal air movement and clear to auscultation bilaterally Cardio regular rate and regular rhythm GI soft to palpation, non-tender and non-distended Skin no rashes or lesions noted ID ID: Route of nutrition/ use of supplements: [] Nutritional Intake: [] IV Site: [] Lyons Catheter: [] Assessment & Plan Assessment/Plan (1) Sepsis: PLAN: MSSA bacteremia. Will narrow to cefazolin. Repeat bcx pending, will order CY. Will follow
[2023-04-22 11:26] LABS: Bedside Glucose 308 mg/dL (74-106)
[2023-04-22 13:28] LABS: Pathologist Review Reviewed
--- NOTE | 2023-04-22 15:34 | PN.HOSP_ITS ---
Reason for Visit Reason for Visit: Diagnoses Sepsis, unspecified organism (04/19/23) Thrombocytopenia, unspecified (04/19/23) Type 2 diabetes mellitus with diabetic polyneuropathy (04/19/23) Morbid (severe) obesity due to excess calories (04/19/23) Other toxic encephalopathy (04/19/23) Hypoxemia (04/19/23) Subjective Subjective Patient was seen and examined today, I talked to her daughter who was in the room at the time my examination today. Infectious diseases ordered a CY on the patient. I talked briefly with pulmonary medicine about the patient's care. Patient's urine culture resulted positive for strep agalactiae, patient has methicillin sensitive Staph aureus in her blood culture from 04/19/2023. Objective Data Objective Data Vital Signs: Vital Signs Temp Pulse Resp BP Pulse Ox O2 Del Method O2 Flow Rate 96.8 F L 63 15 132/61 H 97 Nasal Cannula 2 04/22/23 14:53 04/22/23 14:53 04/22/23 14:53 04/22/23 14:53 04/22/23 14:53 04/22/23 14:53 04/22/23 14:53 FiO2 30 04/21/23 04:30 Oxygen Flow Rate (L/min) 2 Oxygen Delivery Method Nasal Cannula Weight: 129.1 kg Body Mass Index (BMI) 47.4 Intake & Output: Intake and Output for Last 24 Hours 04/20/23 04/21/23 04/22/23 23:59 23:59 23:59 Intake Total 3760 / 3760 1440 / 1440 210 / 210 Output Total 1625 / 1625 1300 / 2300 1500 / 1500 Balance 2135 / 2135 140 / -860 -1290 / -1290 Lab / Micro Data 04/22/23 03:30 04/22/23 03:30 Labs: Laboratory Results - last 24 hr 04/21/23 16:57: POC Glucose 307 H 04/21/23 19:14: Vancomycin Trough 16.5 H 04/21/23 20:51: POC Glucose 362 H 04/22/23 03:30: WBC 3.3 L, RBC 2.96 L, Hgb 7.7 L, Hct 25.0 L, MCV 84.5, MCH 26.0 L, MCHC 30.8 L, RDW Std Deviation 45.1 H, RDW Coeff of Vlad 14.6, Plt Count 83 L, MPV 12.6 H, Neut % (Auto) Not Reportable, Absolute Neuts (auto) 2.2, Absolute Lymphs (auto) 0.59 L, Total Counted 100, Neutrophils % (Manual) 51, Band Neutrophils % 16 H, Lymphocytes % (Manual) 18 L, Monocytes % (Manual) 7, Eosinophils % (Manual) 1, Metamyelocytes % 3 H, Myelocytes % 3 H, Promyelocytes % 1 H, Diff Path Review Reviewed, Atypical Lymphocytes 1+, Platelet Estimate MOD DEC, Hypochromasia 1+, Anisocytosis 1+, Sodium 135 L, Potassium 4.2, Chloride 103, Carbon Dioxide 26.0, Anion Gap 6, BUN 43 H, Creatinine 1.79 H, Estim Creat Clear Calc 28.19, Est GFR (MDRD) Af Amer 37 L, Est GFR (MDRD) Non-Af 30 L, BUN/Creatinine Ratio 24.0 H, Glucose 356 H, Calcium 8.1 L 04/22/23 05:57: POC Glucose 285 H 04/22/23 11:05: POC Glucose 308 H Micro: Microbiology 04/19/23 13:23 Blood Culture (Wb) - Venous Bacteria Detection (PCR) - Final Staphylococcus aureus 04/19/23 13:23 Blood Culture (Wb) - Venous Blood Culture - Final Staphylococcus aureus 04/19/23 13:35 Blood Culture (Wb) - Venous Blood Culture - Final Staphylococcus aureus 04/19/23 14:32 Urine Catheter - Catheter Urine Culture - Final Streptococcus agalactiae (B) 04/20/23 04:35 Mucosa - Nose Coronavirus COVID-19 PCR - Final 04/19/23 13:13 Nasal Secretion SARS-CoV-2 & FLU Antigen (Rapid) - Final Rhythm Strip Rhythm Strip: Sinus Rhythm Rate: 80 Physical Exam Const alert, oriented x3 and no apparent distress Constitutional Narrative: Patient is morbidly obese General Appearance: cooperative, well kempt and well developed Orientation / Consciousness: awake, oriented to person, oriented to place and oriented to time HEENT normocephalic, head/scalp atraumatic and moist oral mucous membranes Eyes PERRL, EOMs intact bilaterally and conjunctivae normal Neck supple, no JVD, thyroid normal and no carotid bruits General: trachea midline Resp normal respiratory effort, no retractions, no use of accessory muscles and clear to auscultation bilaterally Auscultation: Negative for rales, rhonchi or wheezes Cardio regular rate, regular rhythm, S1 normal heart sound, S2 normal heart sound, no murmurs, no rub and no gallops GI normal to inspection, nondistended, normoactive bowel sounds, soft to palpation, non-tender and non-distended Extremity Extremity Narrative: Edema is noted in both lower legs which is nonpitting Skin Skin Narrative: Diffuse skin changes are noted over the lower legs in keeping with chronic lymphedema Neuro oriented x3, CN's II-XII intact bilaterally, moves all extremities, no focal motor deficits and no sensory deficits noted Sensorium / Orientation: awake, alert, oriented to person, oriented to place and oriented to time Speech: speech normal Psych affect normal Assessment & Plan Assessment/Plan (1) Sepsis: PLAN: Plan 1. Sepsis secondary to methicillin sensitive Staph aureus-again infectious diseases is seeing the patient, patient is currently on IV Rocephin, a CY was ordered tomorrow. #2 chronic kidney disease stage IIIb secondary to type 2 diabetes-complicates care, medical course, recovery, and prognosis, labs will be monitored #3 type 2 diabetes-patient's blood sugars will be monitored, sliding scale insulin will be given per scale, she will remain on her basal insulin #4 hypothyroidism-patient will remain on Synthroid #5 morbid obesity-complicates care, medical course, recovery, and prognosis #6 lymphedema of the legs-complicates care, medical course, recovery, and p rognosis #7 chronic anemia-possibly secondary to chronic kidney disease, patient had a recent iron level performed in September of this year which showed a normal iron level. CBC will be monitored. Total clinical time spent by myself addressing the patient's medical issues, reviewing all of her data, and collaborating with patient's care team: 35 minutes Charges/Coding Visit Charges Inpatient E&M: 98682 Subs Hosp L2
[2023-04-22 18:16] LABS: Bedside Glucose 320 mg/dL (74-106)
[2023-04-22] MEDS: Atorvastatin Calcium 10 MG Tablet PO (21:19)
[2023-04-22] MEDS: Insulin Glargine-YFGN 100 UNIT/ML Pen 49 UNIT SC (21:20)
[2023-04-22 21:45] LABS: Bedside Glucose 364 mg/dL (74-106)
[2023-04-22] MEDS: Acetaminophen 325 MG Tablet 650 MG PO (23:31)
[2023-04-23] MEDS: Levothyroxine 150 MCG Tablet PO (05:43)
[2023-04-23] MEDS: Heparin Injection (Vial) 5,000 UNIT/ML VIAL 5000 UNIT SC ×3 (05:43→22:36)
[2023-04-23] MEDS: Pramipexole Di-HCl 0.125 MG Tablet 0.375 MG PO ×3 (05:43→22:36)
[2023-04-23] MEDS: Glycerin/Hypromellose/PEG400 15 ml Bottle 1 DRP EACH EYE (05:45)
[2023-04-23 05:51] VITALS: BMI 47.8
--- NOTE | 2023-04-23 08:00 | ECHOTEE_ITS ---
Reason For Study: ENDOCARDITIS Medication CY probe 6VT-D (SN [id number]) passed without difficulty. No complications were noted. Cetacaine Topical [place] given X3 orally. Versed 2 mg given slow IVP. Fentanyl 50 mcg given slow IVP. Performed a rapid injection of agitated mix of 9 cc saline and 1cc air to assess for atrial septal defect. Left Ventricle Normal LV size. Left ventricular systolic function is normal. The estimated ejection fraction is 60 %. No regional wall motion abnormalities noted. Right Ventricle Normal RV size. Normal systolic function. Atria Normal atrial septum. Bubble contrast study negative for right to left interatrial shunt. Normal left atrium. No thrombus is detected in the left atrial appendage. Normal right atrium. Mitral Valve Normal mitral valve. Tricuspid Valve Normal tricuspid valve. Aortic Valve Normal aortic valve. Trisinus/trileaflet aortic valve. Trivial aortic valve insufficiency. Pulmonic Valve Normal pulmonic valve. Vessels Normal aortic root. Normal arch. The pulmonary artery is normal size. Pericardium No pericardial effusion. ECHO/Echo Transesophageal (CY) Interpretation Summary Normal LV size. Left ventricular systolic function is normal. The estimated ejection fraction is 60 %. Bubble contrast study negative for right to left interatrial shunt. No thrombus is detected in the left atrial appendage. No obvious source of vegetation noted Ordering Physician: Tobias Dickerson Performed By: Krupa Johnson RDCS
[2023-04-23] MEDS: Insulin Lispro 100 UNIT/ML INSULN.PEN SC ×3 (08:40→22:39)
[2023-04-23] MEDS: Metoclopramide 5 MG TABLET PO ×2 (08:41→22:36)
[2023-04-23] MEDS: Fenofibrate 48 MG Tablet PO (08:41)
[2023-04-23] MEDS: Pantoprazole Sodium 40 MG Tablet PO (08:41)
[2023-04-23] MEDS: Escitalopram Oxalate 10 MG Tablet PO (08:41)
[2023-04-23] MEDS: predniSONE 20 MG Tablet 40 MG PO (08:41)
[2023-04-23] MEDS: Arthritis Pain Compound 60 CLICK TUBE TOPICAL (08:42)
[2023-04-23] MEDS: Cefazolin 2 GM in 0.9% Normal Saline (100mL Bag) 100 ML IV ×2 (08:42→22:40)
[2023-04-23 09:12] LABS: Bedside Glucose 171 mg/dL (74-106)
[2023-04-23 10:00] VITALS: BP 148/77; PULSE 63; RESP 14; TEMP 36.6; O2SAT 96
--- NOTE | 2023-04-23 10:21 | CASEMGMT ---
WES spoke with patient and she feels she will be fine to return to [facility]. Varsha Villatoro INFERTILITY NURSE RUBY
[2023-04-23 10:45] LABS: Anion Gap 6 (5-15); BUN 39 mg/dL (7-18); BUN/Creat Ratio 22.8 RATIO (10-20); Calcium,Total 8.6 mg/dL (8.5-10.1); Chloride 104 mmol/L (98-107); Creatinine, Serum 1.71 mg/dL (0.55-1.02); EST Glomerular Filtration Rate 32 mL/min (>60); Est Glom Filt Rate - Afr Amer 39 mL/min (>60); Estimated Creatinine Clearance 29.51 ml/min; Glucose 270 mg/dL (74-106); Potassium 3.7 mmol/L (3.5-5.1); Sodium Level 138 mmol/L (136-145)
[2023-04-23] MEDS: Gabapentin 100 MG Capsule 200 MG PO ×2 (11:04→22:36)
[2023-04-23 11:14] LABS: Hematocrit 25.3 % (37-47); Hemoglobin 8.1 g/dL (12.0-15.0); Mean Corpuscular Hgb 27.3 pg (27.0-32.0); Mean Corpuscular Volume 85.2 fL (81-99); Platelet Count 103 K/mm3 (150-450); RBC Distribution Width CV 14.5 % (11.6-14.6); RBC Distribution Width SD 44.9 fl (35.1-43.9); Red Blood Count 2.97 M/mm3 (4.2-5.4)
[2023-04-23 11:15] LABS: Absolute Lymphocyte Count 1.41 X10^3/uL (0.83-4.51); Absolute Neutrophil Count 2.8 X10^3/uL (2.0-7.7); Differential Indicated MANUAL DIFF; POSITIVE COUNT YES; POSITIVE MORPHOLOGY YES
[2023-04-23 11:16] LABS: Eosinophil 4 % (0-5); Lymphocyte 28 % (19-41); Metamyelocyte 1 % (0-1); Monocyte 7 % (0-10); Myelocyte 5 % (0-0); Neutrophil-Band 9 % (0-5); Neutrophil-Segmented 46 % (47-70)
[2023-04-23 11:17] LABS: Platelet Estimate SLT DEC (ADEQ); Red Cell Morphology NORM C+C NORMAL (NORM C&C)
[2023-04-23 11:25] LABS: Bedside Glucose 146 mg/dL (74-106)
--- NOTE | 2023-04-23 13:19 | PCM.PN.ID ---
Physical Exam Narrative Feeling ok, no fever, no n/v/d. Const alert and no apparent distress General Appearance: cooperative Resp normal air movement and clear to auscultation bilaterally Cardio regular rate and regular rhythm GI soft to palpation, non-tender and non-distended Skin no rashes or lesions noted ID ID: Route of nutrition/ use of supplements: [] Nutritional Intake: [] IV Site: [] Lyons Catheter: [] Assessment & Plan Assessment/Plan (1) Sepsis: PLAN: MSSA bacteremia. Cont cefazolin. Repeat bcx pending, pending CY. Will follow
--- NOTE | 2023-04-23 13:20 | NURSING ---
Cardiovascular team at bedside preparing patient for bedside CY with Dr Son. Patient signed consent, agreeable to procedure, denies questions or concerns.
[2023-04-23 14:05] VITALS: BP 168/84; PULSE 62; RESP 18; TEMP 36.7; O2SAT 94
--- NOTE | 2023-04-23 14:12 | PN.HOSP_ITS ---
Reason for Visit Reason for Visit: Diagnoses Sepsis, unspecified organism (04/19/23) Thrombocytopenia, unspecified (04/19/23) Type 2 diabetes mellitus with diabetic polyneuropathy (04/19/23) Morbid (severe) obesity due to excess calories (04/19/23) Other toxic encephalopathy (04/19/23) Hypoxemia (04/19/23) Subjective Subjective Patient was seen and examined today, she is currently on 2 L of nasal cannula oxygen, she underwent a CY today and the preliminary report is that there were no vegetations visible on the valves. Objective Data Objective Data Vital Signs: Vital Signs Temp Pulse Resp BP Pulse Ox O2 Del Method O2 Flow Rate 98.1 F 62 18 168/84 H 94 Nasal Cannula 2 04/23/23 14:05 04/23/23 14:05 04/23/23 14:05 04/23/23 14:05 04/23/23 14:05 04/23/23 14:05 04/23/23 14:05 FiO2 30 04/21/23 04:30 Oxygen Flow Rate (L/min) 2 Oxygen Delivery Method Nasal Cannula Weight: 130.2 kg Body Mass Index (BMI) 47.8 Intake & Output: Intake and Output for Last 24 Hours 04/21/23 04/22/23 04/23/23 23:59 23:59 23:59 Intake Total 1440 / 1440 420 / 420 110 / 110 Output Total 1300 / 2300 1500 / 1500 1050 / 1050 Balance 140 / -860 -1080 / -1080 -940 / -940 Lab / Micro Data 04/23/23 04:00 04/23/23 04:00 Labs: Laboratory Results - last 24 hr 04/22/23 17:01: POC Glucose 320 H 04/22/23 21:18: POC Glucose 364 H 04/23/23 04:00: WBC 5.0, RBC 2.97 L, Hgb 8.1 L, Hct 25.3 L, MCV 85.2, MCH 27.3, MCHC 32.0, RDW Std Deviation 44.9 H, RDW Coeff of Vlad 14.5, Plt Count 103 L, MPV 12.0, Neut % (Auto) Not Reportable, Absolute Neuts (auto) 2.8, Absolute Lymphs (auto) 1.41, Neutrophils % (Manual) 46 L, Band Neutrophils % 9 H, Lymphocytes % (Manual) 28, Monocytes % (Manual) 7, Eosinophils % (Manual) 4, Metamyelocytes % 1, Myelocytes % 5 H, Diff Path Review May foll, Platelet Estimate SLT DEC, RBC Morphology NORM C+C, Sodium 138, Potassium 3.7, Chloride 104, Carbon Dioxide 28.0, Anion Gap 6, BUN 39 H, Creatinine 1.71 H, Estim Creat Clear Calc 29.51, Est GFR (MDRD) Af Amer 39 L, Est GFR (MDRD) Non-Af 32 L, BUN/Creatinine Ratio 22.8 H, Glucose 270 H, Calcium 8.6 04/23/23 08:40: POC Glucose 171 H 04/23/23 11:03: POC Glucose 146 H Micro: Microbiology 04/21/23 09:50 Blood Culture (Wb) - Left Hand Blood Culture - Preliminary 04/21/23 09:40 Blood Culture (Wb) - Anticubital Left Bacteria Detection (PCR) - Final Staphylococcus aureus 04/21/23 09:40 Blood Culture (Wb) - Anticubital Left Blood Culture - Preliminary 04/19/23 13:23 Blood Culture (Wb) - Venous Bacteria Detection (PCR) - Final Staphylococcus aureus 04/19/23 13:23 Blood Culture (Wb) - Venous Blood Culture - Final Staphylococcus aureus 04/19/23 13:35 Blood Culture (Wb) - Venous Blood Culture - Final Staphylococcus aureus 04/19/23 14:32 Urine Catheter - Catheter Urine Culture - Final Streptococcus agalactiae (B) 04/20/23 04:35 Mucosa - Nose Coronavirus COVID-19 PCR - Final 04/19/23 13:13 Nasal Secretion SARS-CoV-2 & FLU Antigen (Rapid) - Final Rhythm Strip Rhythm Strip: Sinus Rhythm Rate: 80 Physical Exam Narrative alert, oriented x3 and no apparent distress Constitutional Narrative: Patient is morbidly obese General Appearance: cooperative, well kempt and well developed Orientation / Consciousness: awake, oriented to person, oriented to place and oriented to time HEENT normocephalic, head/scalp atraumatic and moist oral mucous membranes Eyes PERRL, EOMs intact bilaterally and conjunctivae normal Neck supple, no JVD, thyroid normal and no carotid bruits General: trachea midline Resp normal respiratory effort, no retractions, no use of accessory muscles and clear to auscultation bilaterally Auscultation: Negative for rales, rhonchi or wheezes Cardio regular rate, regular rhythm, S1 normal heart sound, S2 normal heart sound, no murmurs, no rub and no gallops GI normal to inspection, nondistended, normoactive bowel sounds, soft to palpation, non-tender and non-distended Extremity Extremity Narrative: Edema is noted in both lower legs which is nonpitting Skin Skin Narrative: Diffuse skin changes are noted over the lower legs in keeping with chronic lymphedema Neuro oriented x3, CN's II-XII intact bilaterally, moves all extremities, no focal motor deficits and no sensory deficits noted Sensorium / Orientation: awake, alert, oriented to person, oriented to place and oriented to time Speech: speech normal Psych affect normal Assessment & Plan Assessment/Plan (1) Sepsis: PLAN: Plan 1. Sepsis secondary to methicillin sensitive Staph aureus-again infectious diseases is seeing the patient, patient is currently on IV Ancef, patient's CY appears to show no valvular vegetations #2 chronic kidney disease stage IIIb secondary to type 2 diabetes-complicates care, medical course, recovery, and prognosis, labs will be monitored #3 type 2 diabetes-patient's blood sugars will be monitored, sliding scale insulin will be given per scale, she will remain on her basal insulin #4 hypothyroidism-patient will remain on Synthroid #5 morbid obesity-complicates care, medical course, recovery, and prognosis #6 lymphedema of the legs-complicates care, medical course, recovery, and prognosis #7 chronic anemia-possibly secondary to chronic kidney disease, patient had a recent iron level performed in September of this year which showed a normal iron level. CBC will be monitored. Patient's hemoglobin today does not indicate the need for blood transfusion. #8 recent eosinophilic pneumonia-patient remains on oral steroids at this time. Total clinical time spent by myself addressing the patient's medical issues, reviewing all of her data, and collaborating with patient's care team: 35 mi alicia Charges/Coding Visit Charges Inpatient E&M: 55604 Subs Hosp L2
[2023-04-23 16:00] VITALS: BP 168/79; PULSE 62; RESP 14; TEMP 36.6; O2SAT 97
[2023-04-23 16:42] LABS: Bedside Glucose 198 mg/dL (74-106)
[2023-04-23 20:00] VITALS: BP 166/76; PULSE 63; PULSE 65; RESP 15; TEMP 35.8; O2SAT 98
[2023-04-23 22:00] VITALS: BP 176/82; PULSE 66; RESP 18; TEMP 35.8; O2SAT 97
[2023-04-23] MEDS: Atorvastatin Calcium 10 MG Tablet PO (22:36)
[2023-04-23] MEDS: Insulin Glargine-YFGN 100 UNIT/ML Pen 49 UNIT SC (22:37)
[2023-04-23 23:12] LABS: Bedside Glucose 195 mg/dL (74-106)
[2023-04-24] VITALS (7 sets, daily range): BP systolic 138–182; BP diastolic 63–79; PULSE 62–72; RESP 13–17; TEMP 35.6–36.2; O2SAT 91–100; BMI 47.0
[2023-04-24] MEDS: hydrALAZINE 20 MG/ML Vial 10 MG IV (00:38)
[2023-04-24] MEDS: Acetaminophen 325 MG Tablet 650 MG PO ×2 (00:38→08:16)
[2023-04-24] MEDS: 0.9% Saline Lock 10 ML Syringe IV (00:39)
[2023-04-24] MEDS: Pramipexole Di-HCl 0.125 MG Tablet 0.375 MG PO ×3 (05:52→22:50)
[2023-04-24] MEDS: Heparin Injection (Vial) 5,000 UNIT/ML VIAL 5000 UNIT SC ×3 (05:52→22:49)
[2023-04-24] MEDS: Levothyroxine 150 MCG Tablet PO (05:52)
--- NOTE | 2023-04-24 06:50 | PCM.PN.INT ---
Assessment & Plan Assessment/Plan (1) Hypoxia: (2) Morbid (severe) obesity due to excess calories: (3) Diabetes mellitus with diabetic polyneuropathy: (4) Thrombocytopenia: PLAN: Plan RECOMMENDATIONS: 1. Continue antibiotics per ID recommendations. 2. Wean prednisone over the course of the next 2 weeks. 3. Encourage incentive spirometer use and mobilize patient as tolerated. 4. Follow-up with Dr. Ram following discharge. 5. We will sign off from a critical care perspective. Please call with any additional questions. IMPRESSIONS: 1. Sepsis secondary to staph bacteremia Unclear etiology. The patient presented with hypotension and increasing leukocytosis. No obvious source for the patient's bacteremia has been identified. Follow-up blood cultures are pending. Infectious diseases is following to assist with medical management. CY was negative for valvular vegetations. 2. Recent hospitalization for eosinophilic pneumonia The patient was recently hospitalized and treated at that time with steroids for presumptive eosinophilic pneumonia. Her subsequent chest imaging demonstrated improvement. Plan to continue to wean steroids over the course of the next 2 weeks. The patient should follow-up with Dr. Ram on an outpatient basis, as previously planned. Continue to wean supplemental oxygen to maintain saturations at or above 90%. 3. Morbid obesity/diabetes mellitus/hypothyroidism/obstructive sleep apnea/depression/hyperlipidemia Complicates care, management, recovery and prognosis. Continue home medications as indicated. Recommend outpatient follow-up to address the patient's underlying sleep apnea. This note was generated with [employer] dictation software. It may contain incorrect words, spelling, and punctuation that were not noted in checking the note before signing. Subjective Subjective The patient was seen and examined at the bedside this morning. Events from the last 24 hours have been reviewed. The patient is currently afebrile, hemodynamically stable and maintaining appropriate oxygen saturations on 2 L/min via nasal cannula. Transesophageal echocardiogram completed yesterday demonstrated no evidence of valvular vegetations. The patient is currently documented to be overall net +3.3 L for the hospitalization. The patient has no specific complaints this morning. Objective Data Objective Data The patient's most recent lab work, culture data and imaging studies have all been personally reviewed. Blood cultures are demonstrating growth of MSSA. Repeat blood cultures from April 23 are pending. Vital Signs: Vital Signs Temp Pulse Resp BP Pulse Ox O2 Del Method O2 Flow Rate 97.1 F L 68 16 145/68 H 98 Nasal Cannula 2 04/24/23 04:00 04/24/23 04:00 04/24/23 04:00 04/24/23 04:00 04/24/23 04:00 04/24/23 04:00 04/24/23 04:00 FiO2 30 04/21/23 04:30 Oxygen Flow Rate (L/min) 2 Oxygen Delivery Method Nasal Cannula Weight: 282 lb 3.067 oz Body Mass Index (BMI) 47.0 Intake & Output: Intake and Output for Last 24 Hours 04/22/23 04/23/23 04/24/23 23:59 23:59 23:59 Intake Total 420 / 420 220 / 220 Output Total 1500 / 1500 1950 / 2450 550 / 550 Balance -1080 / -1080 -1730 / -2230 -550 / -550 Lab / Micro Data Attestation: I reviewed the patient's lab results. 04/23/23 04:00 04/23/23 04:00 Labs: Laboratory Results - last 24 hr 04/23/23 04:00: WBC 5.0, RBC 2.97 L, Hgb 8.1 L, Hct 25.3 L, MCV 85.2, MCH 27.3, MCHC 32.0, RDW Std Deviation 44.9 H, RDW Coeff of Vlad 14.5, Plt Count 103 L, MPV 12.0, Neut % (Auto) Not Reportable, Absolute Neuts (auto) 2.8, Absolute Lymphs (auto) 1.41, Neutrophils % (Manual) 46 L, Band Neutrophils % 9 H, Lymphocytes % (Manual) 28, Monocytes % (Manual) 7, Eosinophils % (Manual) 4, Metamyelocytes % 1, Myelocytes % 5 H, Diff Path Review May foll, Platelet Estimate SLT DEC, RBC Morphology NORM C+C, Sodium 138, Potassium 3.7, Chloride 104, Carbon Dioxide 28.0, Anion Gap 6, BUN 39 H, Creatinine 1.71 H, Estim Creat Clear Calc 29.51, Est GFR (MDRD) Af Amer 39 L, Est GFR (MDRD) Non-Af 32 L, BUN/Creatinine Ratio 22.8 H, Glucose 270 H, Calcium 8.6 04/23/23 08:40: POC Glucose 171 H 04/23/23 11:03: POC Glucose 146 H 04/23/23 16:21: POC Glucose 198 H 04/23/23 22:38: POC Glucose 195 H Micro: Microbiology 04/21/23 09:50 Blood Culture (Wb) - Left Hand Blood Culture - Preliminary 04/21/23 09:40 Blood Culture (Wb) - Anticubital Left Bacteria Detection (PCR) - Final Staphylococcus aureus 04/21/23 09:40 Blood Culture (Wb) - Anticubital Left Blood Culture - Preliminary 04/19/23 13:23 Blood Culture (Wb) - Venous Bacteria Detection (PCR) - Final Staphylococcus aureus 04/19/23 13:23 Blood Culture (Wb) - Venous Blood Culture - Final Staphylococcus aureus 04/19/23 13:35 Blood Culture (Wb) - Venous Blood Culture - Final Staphylococcus aureus 04/19/23 14:32 Urine Catheter - Catheter Urine Culture - Final Streptococcus agalactiae (B) 04/20/23 04:35 Mucosa - Nose Coronavirus COVID-19 PCR - Final 04/19/23 13:13 Nasal Secretion SARS-CoV-2 & FLU Antigen (Rapid) - Final Radiography Diagnostic Testing: Radiology Impression Transesophageal Echocardiogram 04/23/23 08:00 Interpretation Summary Normal LV size. Left ventricular systolic function is normal. The estimated ejection fraction is 60 %. Bubble contrast study negative for right to left interatrial shunt. No thrombus is detected in the left atrial appendage. No obvious source of vegetation noted Ordering Physician: Tobias Dickerson Performed By: Krupa Johnson RDCS Rhythm Strip Rhythm Strip: Sinus Rhythm Rate: 80 Physical Exam Const alert and no apparent distress Constitutional Narrative: Morbidly obese. Sitting in bedside recliner. General Appearance: cooperative HEENT normocephalic and head/scalp atraumatic Eyes PERRL, EOMs intact bilaterally and conjunctivae normal Neck supple General: trachea midline Chest inspection of chest normal Resp normal respiratory effort Auscultation: diminished lung sounds; Negative for rales, rhonchi or wheezes Cardio regular rate and regular rhythm GI normal to inspection, nondistended, normoactive bowel sounds Extremity General Extremity: edema; Negative for clubbing Skin no rashes or lesions noted Neuro CN's II-XII intact bilaterally, moves all extremities and no focal motor deficits Psych cooperative and affect normal Charges/Coding Visit Charges Inpatient E&M: 45283 Subs Hosp L2
[2023-04-24] MEDS: Arthritis Pain Compound 60 CLICK TUBE TOPICAL (08:17)
[2023-04-24] MEDS: predniSONE 20 MG Tablet 40 MG PO (08:17)
[2023-04-24 08:39] LABS: Bedside Glucose 100 mg/dL (74-106)
--- NOTE | 2023-04-24 09:51 | PCM.PN.ID ---
Physical Exam Narrative Feeling better, CY neg. No fever. No n/v/d. Const alert and no apparent distress General Appearance: cooperative Resp normal air movement and clear to auscultation bilaterally Cardio regular rate and regular rhythm GI soft to palpation, non-tender and non-distended Skin no rashes or lesions noted ID ID: Route of nutrition/ use of supplements: [] Nutritional Intake: [] IV Site: [] Lyons Catheter: [] Assessment & Plan Assessment/Plan (1) Sepsis: PLAN: MSSA bacteremia. Cont cefazolin. Repeat bcx neg since 04/22, no veg seen on CY. If bcx from 04/22 is still neg tomorrow, plan will be for d/c home on po linezolid 600mg bid with stop date 05/06/23 to complete course of treatment of uncomplicated SA bacteremia. Is on low dose SSRI, should be at low risk for serotonin syndrome. Will follow, d/w primary team
[2023-04-24 09:57] LABS: Pathologist Review Reviewed
[2023-04-24] MEDS: Fenofibrate 48 MG Tablet PO (09:59)
[2023-04-24] MEDS: Pantoprazole Sodium 40 MG Tablet PO (09:59)
[2023-04-24] MEDS: Escitalopram Oxalate 10 MG Tablet PO (10:00)
[2023-04-24] MEDS: Metoclopramide 5 MG TABLET PO ×2 (10:00→22:50)
[2023-04-24] MEDS: Gabapentin 100 MG Capsule 200 MG PO ×2 (10:01→22:49)
[2023-04-24] MEDS: Cefazolin 2 GM in 0.9% Normal Saline (100mL Bag) 100 ML IV ×2 (10:07→22:49)
[2023-04-24 12:51] LABS: Bedside Glucose 161 mg/dL (74-106)
[2023-04-24] MEDS: Insulin Lispro 100 UNIT/ML INSULN.PEN SC ×3 (13:08→22:52)
--- NOTE | 2023-04-24 15:07 | CASEMGMT ---
Discharge Planning Updates sent to [facility] via fax and confirmed that pharmacy is [place]. SW updated. Louise King, Discharge Planning Asst.
--- NOTE | 2023-04-24 18:13 | PN.HOSP_ITS ---
Reason for Visit Reason for Visit: Diagnoses Sepsis, unspecified organism (04/19/23) Thrombocytopenia, unspecified (04/19/23) Type 2 diabetes mellitus with diabetic polyneuropathy (04/19/23) Morbid (severe) obesity due to excess calories (04/19/23) Other toxic encephalopathy (04/19/23) Hypoxemia (04/19/23) Subjective Subjective Patient was seen and examined today, I talked briefly with infectious diseases about her care-it appears that she may be able to go on oral antibiotics starting tomorrow as long as her blood cultures returned as negative. Patient was to go back to assisted living rather than to go to a group home facility Objective Data Objective Data Vital Signs: Vital Signs Temp Pulse Resp BP Pulse Ox O2 Del Method O2 Flow Rate 96.3 F L 66 16 163/72 H 96 Nasal Cannula 2 04/24/23 14:37 04/24/23 14:37 04/24/23 14:37 04/24/23 14:37 04/24/23 14:37 04/24/23 14:45 04/24/23 14:45 FiO2 30 04/21/23 04:30 Oxygen Flow Rate (L/min) 2 Oxygen Delivery Method Nasal Cannula Weight: 128 kg Body Mass Index (BMI) 47.0 Intake & Output: Intake and Output for Last 24 Hours 04/22/23 04/23/23 04/24/23 23:59 23:59 23:59 Intake Total 420 / 420 220 / 220 310 / 310 Output Total 1500 / 1500 1950 / 2450 1050 / 1050 Balance -1080 / -1080 -1730 / -2230 -740 / -740 Lab / Micro Data 04/23/23 04:00 04/23/23 04:00 Labs: Laboratory Results - last 24 hr 04/23/23 04:00: Diff Path Review Reviewed 04/23/23 22:38: POC Glucose 195 H 04/24/23 08:16: POC Glucose 100 04/24/23 12:33: POC Glucose 161 H Micro: Microbiology 04/21/23 09:50 Blood Culture (Wb) - Left Hand Blood Culture - Final Staphylococcus aureus 04/21/23 09:40 Blood Culture (Wb) - Anticubital Left Bacteria Detection (PCR) - Final Staphylococcus aureus 04/21/23 09:40 Blood Culture (Wb) - Anticubital Left Blood Culture - Preliminary Staphylococcus aureus 04/22/23 11:00 Blood Culture (Wb) - Right Hand Blood Culture - Preliminary No growth in 48 hours. 04/19/23 13:23 Blood Culture (Wb) - Venous Bacteria Detection (PCR) - Final Staphylococcus aureus 04/19/23 13:23 Blood Culture (Wb) - Venous Blood Culture - Final Staphylococcus aureus 04/19/23 13:35 Blood Culture (Wb) - Venous Blood Culture - Final Staphylococcus aureus 04/19/23 14:32 Urine Catheter - Catheter Urine Culture - Final Streptococcus agalactiae (B) 04/20/23 04:35 Mucosa - Nose Coronavirus COVID-19 PCR - Final 04/19/23 13:13 Nasal Secretion SARS-CoV-2 & FLU Antigen (Rapid) - Final Rhythm Strip Rhythm Strip: Sinus Rhythm Rate: 80 Physical Exam Narrative alert, oriented x3 and no apparent distress Constitutional Narrative: Patient is morbidly obese General Appearance: cooperative, well kempt and well developed Orientation / Consciousness: awake, oriented to person, oriented to place and oriented to time HEENT normocephalic, head/scalp atraumatic and moist oral mucous membranes Eyes PERRL, EOMs intact bilaterally and conjunctivae normal Neck supple, no JVD, thyroid normal and no carotid bruits General: trachea midline Resp normal respiratory effort, no retractions, no use of accessory muscles and clear to auscultation bilaterally Auscultation: Negative for rales, rhonchi or wheezes Cardio regular rate, regular rhythm, S1 normal heart sound, S2 normal heart sound, no murmurs, no rub and no gallops GI normal to inspection, nondistended, normoactive bowel sounds, soft to palpation, non-tender and non-distended Extremity Extremity Narrative: Edema is noted in both lower legs which is nonpitting Skin Skin Narrative: Diffuse skin changes are noted over the lower legs in keeping with chronic lymphedema Neuro oriented x3, CN's II-XII intact bilaterally, moves all extremities, no focal motor deficits and no sensory deficits noted Sensorium / Orientation: awake, alert, oriented to person, oriented to place and oriented to time Speech: speech normal Psych affect normal Assessment & Plan Assessment/Plan (1) Sepsis: PLAN: Plan 1. Sepsis secondary to methicillin sensitive Staph aureus-again infectious diseases is seeing the patient, patient is currently on IV Ancef, patient's CY appears to show no valvular vegetations #2 chronic kidney disease stage IIIb secondary to type 2 diabetes-complicates care, medical course, recovery, and prognosis, labs will be monitored as needed #3 type 2 diabetes-patient's blood sugars will be monitored, sliding scale insulin will be given per scale, she will remain on her basal insulin #4 hypothyroidism-patient will remain on Synthroid #5 morbid obesity-complicates care, medical course, recovery, and prognosis #6 lymphedema of the legs-complicates care, medical course, recovery, and prognosis #7 chronic anemia-possibly secondary to chronic kidney disease, patient had a recent iron level performed in September of this year which showed a normal iron level. CBC will be monitored. Patient's hemoglobin today does not indicate the need for blood transfusion. #8 recent eosinophilic pneumonia-patient remains on oral steroids at this time. #9 chronic hypoxic respiratory failure-patient remains on nasal cannula oxygen at 2 L Total clinical time spent by myself addressing the patient's medical issues, reviewing all of her data, and collaborating with patient's care team: 25 minutes Charges/Coding Visit Charges Inpatient E&M: 78636 Subs Hosp L1
[2023-04-24 18:21] LABS: Bedside Glucose 250 mg/dL (74-106)
[2023-04-24] MEDS: Atorvastatin Calcium 10 MG Tablet PO (22:50)
[2023-04-24] MEDS: Insulin Glargine-YFGN 100 UNIT/ML Pen 49 UNIT SC (22:53)
[2023-04-24 23:37] LABS: Bedside Glucose 314 mg/dL (74-106)
[2023-04-25 01:30] VITALS: BP 161/80; PULSE 81; RESP 18; TEMP 36.3; O2SAT 96
[2023-04-25 02:00] VITALS: BP 161/80; PULSE 77; RESP 18; TEMP 36.3; O2SAT 95
[2023-04-25] MEDS: Acetaminophen 325 MG Tablet 650 MG PO ×2 (03:21→07:57)
[2023-04-25 05:08] VITALS: BMI 47.1
[2023-04-25] MEDS: Pramipexole Di-HCl 0.125 MG Tablet 0.375 MG PO (06:05)
[2023-04-25] MEDS: Heparin Injection (Vial) 5,000 UNIT/ML VIAL 5000 UNIT SC (06:05)
[2023-04-25] MEDS: Levothyroxine 150 MCG Tablet PO (06:05)
[2023-04-25 06:07] LABS: Hematocrit 25.3 % (37-47); Hemoglobin 8.1 g/dL (12.0-15.0); Mean Corpuscular Hgb 27.1 pg (27.0-32.0); Mean Corpuscular Volume 84.6 fL (81-99); Mean Platelet Vol. 11.5 fl (6.2-12.0); POSITIVE COUNT YES; POSITIVE MORPHOLOGY YES; Platelet Count 145 K/mm3 (150-450); RBC Distribution Width CV 14.2 % (11.6-14.6); RBC Distribution Width SD 43.5 fl (35.1-43.9); Red Blood Count 2.99 M/mm3 (4.2-5.4)
[2023-04-25 06:21] LABS: Differential Indicated MANUAL DIFF
[2023-04-25 06:23] LABS: Anion Gap 4 (5-15); BUN 37 mg/dL (7-18); BUN/Creat Ratio 24.5 RATIO (10-20); Calcium,Total 8.3 mg/dL (8.5-10.1); Chloride 104 mmol/L (98-107); Creatinine, Serum 1.51 mg/dL (0.55-1.02); EST Glomerular Filtration Rate 37 mL/min (>60); Est Glom Filt Rate - Afr Amer 45 mL/min (>60); Estimated Creatinine Clearance 33.42 ml/min; Glucose 344 mg/dL (74-106); Potassium 3.7 mmol/L (3.5-5.1); Sodium Level 138 mmol/L (136-145)
[2023-04-25 06:37] LABS: Red Cell Morphology NORM C+C NORMAL (NORM C&C)
[2023-04-25 06:41] LABS: Absolute Lymphocyte Count 1.81 X10^3/uL (0.83-4.51); Absolute Neutrophil Count 3.7 X10^3/uL (2.0-7.7); Atypical Lymphocyte 1+ %; Eosinophil 2 % (0-5); Lymphocyte 26 % (19-41); Metamyelocyte 2 % (0-1); Monocyte 12 % (0-10); Myelocyte 5 % (0-0); Neutrophil-Band 11 % (0-5); Neutrophil-Segmented 42 % (47-70); Platelet Estimate SLT DEC (ADEQ); Total Cells Counted 100 (MANUAL DIFF)
[2023-04-25] MEDS: Insulin Lispro 100 UNIT/ML INSULN.PEN SC ×2 (07:55→12:09)
[2023-04-25] MEDS: Pantoprazole Sodium 40 MG Tablet PO (07:56)
[2023-04-25] MEDS: Metoclopramide 5 MG TABLET PO (07:56)
[2023-04-25] MEDS: Fenofibrate 48 MG Tablet PO (07:56)
[2023-04-25] MEDS: Cefazolin 2 GM in 0.9% Normal Saline (100mL Bag) 100 ML IV (07:57)
[2023-04-25] MEDS: Escitalopram Oxalate 10 MG Tablet PO (07:57)
[2023-04-25] MEDS: predniSONE 20 MG Tablet 40 MG PO (07:57)
[2023-04-25] MEDS: Gabapentin 100 MG Capsule 200 MG PO (07:58)
[2023-04-25 08:00] VITALS: BP 151/78; PULSE 92; RESP 93; TEMP 36.6; O2SAT 93
--- NOTE | 2023-04-25 11:16 | PCM.DC ---
Discharge Instructions Diet Discharge Diet: 1800 Calorie Control Diet Activity Discharge Activity: Return to Normal Activity and Use Walker Weight Bearing Status: Full weight bearing Follow Up Care Test Results: Test results from this visit will be discussed in further detail at your follow-up appointment, if applicable. Discharge Plan Admission Admit Date/Time: 04/19/23 17:31 Primary Reason for Your Visit: Sepsis secondary to staph Attending Provider: Geo Sharp Primary Care Provider: Lulu Luna [employer] Consulting Providers: Karissa Szymanski; Tobias Dickerson; Jasper Ram; Gerson Cox; Melvin Lang; Stephon Christianson; Balbir Nicholas; Vidya Baez [employer]; Bobby White Instructions Additional Instructions / Restrictions: Use oxygen at rest at 2 L/min, continue your nighttime oxygen setting while sleeping Discharge Orders/Prescriptions Prescriptions: New linezolid [Zyvox] 600 mg tablet 600 mg PO BID Qty: 21 0RF Rx Instructions: start in the evening on 04/25/22-take a total of 21 doses Continued furosemide [Lasix] 20 mg tablet 20 mg PO DAILY levothyroxine 150 mcg tablet 150 mcg PO DAILY@0600 atorvastatin 10 mg Tablet 10 mg PO DAILY pantoprazole 40 mg Tablet,Delayed Release (Dr/Ec) 40 mg PO DAILY escitalopram oxalate 10 mg Tablet 10 mg PO DAILY fenofibrate nanocrystallized [Tricor] 48 mg Tablet 48 mg PO DAILY gabapentin 100 mg capsule 200 mg PO BID Patient Comments: Takes morning and afternoon ropinirole 4 mg tablet 4 mg PO QHS Rx Instructions: administer 1-3 hours before bedtime levofloxacin 750 mg tablet 750 mg PO DAILY Qty: 7 0RF Hold Instructions: Pt has been DC'd Trulicity 0.75 mg/0.5 mL pen injector SUBCUT omega 5-rrd-pdg-fish oil [Fish Oil] 300-1,000 mg capsule 1 cap PO BID gabapentin 400 mg capsule 400 mg PO QHS metoclopramide HCl 5 mg tablet 5 mg PO BID (DME) pen needle, diabetic [Easy Touch] 31 gauge x 1/4 needle MISCELLANEOUS potassium chloride 10 mEq capsule, extended release 10 meq PO DAILY insulin lispro 100 unit/mL insulin pen 1 sliding scale dose SUBCUT TIDCM Rx Instructions: 150-200- 2 units 201-250- 4 units 251-300- 6 units 301-350- 8 units 351+ -10 units insulin glargine [Lantus Solostar U-100 Insulin] 100 unit/mL (3 mL) insulin pen 49 unit SUBCUT QHS fluconazole 100 mg tablet 150 mg PO QWEEK Patient Comments: take 1 tablet by mouth once daily artifi.tears(hypromellose)(PF) 0.3 % drops 1 drp EACH EYE Q2H PRN (Reason: retinal hemmorage) prednisone 10 mg tablet 40 mg PO DAILY Qty: 42 0RF Rx Instructions: Take 4 tablets daily for 4 days then 3 tablets daily for 4 days then 2 tablets daily for 4 days then 1 tablet daily for 4 days then half tablet daily for 4 days Discontinued insulin glargine 100 unit/mL solution 45 unit SUBCUT QHS Referrals / Follow Up: Lulu Luna [employer], [employer] [Primary Care Provider] - Within 2 Weeks Disposition Disposition (needs filled in before D/C Order can be placed): Assisted Living
[2023-04-25 11:31] VITALS: O2SAT 88; O2SAT 91; O2SAT 92
--- NOTE | 2023-04-25 11:58 | PCM.DC.SUM ---
Providers Date of Admission: 04/19/23 Date of Discharge: 04/25/23 Primary Care Physician: Lulu Luna, DIE EQUIPMENT OPERATOR-Mamadou Consultations 04/19/23 18:32 Consult: Time Clock Mechanic / Pulmonary Medicine Routine Consulting Provider: [facility] Reason for Consult: sepsis EMERGENT Consult: No Notified: Yes Date Notified: 04/19/23 Time Notified: 18:11 Method of Notification: Verbal 04/21/23 07:12 Consult: Infectious Disease Routine Consulting Provider: Tobias Dickerson Reason for Consult: Staph Bacteremia EMERGENT Consult: No Notified: No Date Notified: 04/21/23 Time Notified: 07:12 04/21/23 08:00 Consult: Infectious Disease Routine Consulting Provider: Tobias Dickerson Reason for Consult: staph bacteremia EMERGENT Consult: No Notified: Yes Date Notified: 04/21/23 Time Notified: 08:00 Method of Notification: Text Method of Consult:: In-Person Reason For Visit: SEPSIS/HYPOTENSION Diagnosis Discharge Diagnosis (1) Sepsis: Status: Acute Code(s): A41.9 - Sepsis, unspecified organism Plan 1. Sepsis secondary to methicillin sensitive Staph aureus-again infectious diseases is seeing the patient, patient is currently on IV Ancef, patient's CY appears to show no valvular vegetations #2 chronic kidney disease stage IIIb secondary to type 2 diabetes-complicates care, medical course, recovery, and prognosis, labs will be monitored as needed #3 type 2 diabetes-patient's blood sugars will be monitored, sliding scale insulin will be given per scale, she will remain on her basal insulin #4 hypothyroidism-patient will remain on Synthroid #5 morbid obesity-complicates care, medical course, recovery, and prognosis #6 lymphedema of the legs-complicates care, medical course, recovery, and prognosis #7 chronic anemia-possibly secondary to chronic kidney disease, patient had a recent iron level performed in September of this year which showed a normal iron level. CBC will be monitored. Patient's hemoglobin today does not indicate the need for blood transfusion. #8 recent eosinophilic pneumonia-patient remains on oral steroids at this time. #9 chronic hypoxic respiratory failure-patient remains on nasal cannula oxygen at 2 L Total clinical time spent by myself addressing the patient's medical issues, reviewing all of her data, and collaborating with patient's care team: 25 minutes Medications at Discharge Home Medications atorvastatin 10 mg tablet 10 mg PO DAILY cholesterol 09/24/22 escitalopram oxalate 10 mg tablet 10 mg PO DAILY anxiety 09/24/22 fenofibrate nanocrystallized 48 mg tablet (Tricor) 48 mg PO DAILY cholesterol 09/24/22 pantoprazole 40 mg tablet,delayed release 40 mg PO DAILY HEARTBURN 09/24/22 levofloxacin 750 mg tablet 750 mg PO DAILY SEE PCP #7 tabs 11/18/22 aspirin 81 mg tablet,delayed release (Adult Low Dose Aspirin) 81 mg PO DAILY 03/05/23 exenatide microspheres 2 mg subcutaneous extended release suspension mg subcut 03/05/23 furosemide 20 mg tablet (Lasix) 20 mg PO DAILY EDEMA 03/05/23 gabapentin 100 mg capsule 200 mg PO BID PAIN 03/05/23 glipizide 10 mg tablet 10 mg PO BID 03/05/23 levothyroxine 150 mcg tablet 150 mcg PO DAILY@0600 SEE PCP 03/05/23 metformin 1,000 mg tablet 1,000 mg PO BID 03/05/23 ropinirole 4 mg tablet 4 mg PO QHS 03/05/23 sitagliptin phosphate 100 mg tablet (Januvia) 100 mg PO DAILY 03/05/23 triamcinolone acetonide 0.1 % topical cream 1 applic topical TID 03/05/23 dulaglutide 0.75 mg/0.5 mL subcutaneous pen injector (Trulicity) mg subcut 04/14/23 fluconazole 100 mg tablet 150 mg PO QWEEK SEE PCP 04/14/23 gabapentin 400 mg capsule 400 mg PO QHS SEE PCP 04/14/23 insulin glargine 100 unit/mL (3 mL) subcutaneous pen (Lantus Solostar U-100 Insulin) 49 unit subcut QHS SEE PCP 04/14/23 insulin lispro 100 unit/mL subcutaneous pen 1 sliding scale dose subcut TIDCM SEE PCP 04/14/23 metoclopramide HCl 5 mg tablet 5 mg PO BID SEE PCP 04/14/23 omega 7-upc-myr-fish oil 300 mg-1,000 mg capsule (Fish Oil) 1 cap PO BID VITAMIN 04/14/23 pen needle, diabetic 31 gauge x 1/4 (Easy Touch) 04/14/23 potassium chloride 10 mEq capsule,extended release 10 meq PO DAILY SEE PCP 04/14/23 artifi.tears(hypromellose)(PF) 0.3 % eye drops 1 drp EACH EYE Q2H PRN retinal hemmorage 04/15/23 prednisone 10 mg tablet 40 mg (4 x 10 mg) PO DAILY #42 tabs 04/18/23 linezolid 600 mg tablet (Zyvox) 600 mg PO BID #21 tabs 04/25/23 Hospital Course Operations None Procedures Transesophageal Echo Summary of Care Provided Minutes Spent on Discharge: 31 Hospital Course: This 63-year-old white female was seen in the emergency room at [facility] with a chief complaint of malaise. She had been recently hospitalized for fluid overload, possible eosinophilic pneumonia, and acute kidney injury. Work-up in the emergency room showed the patient to have an elevated white blood cell count, chest x-ray showed no active infiltrate, urinalysis was unremarkable. Patient's blood pressure was in the 90s systolic in the ER, she was given fluids and she was admitted to the ICU for suspected sepsis and placed on IV antibiotics. Patient was seen in consultation by pulmonary medicine and infectious diseases. Patient's blood culture returned positive for methicillin sensitive Staph aureus, she underwent a CY which did not show any evidence of valvular vegetations. Patient improved during her hospitalization, it was felt she could return to assisted living at the time of discharge from the hospital. On 04/25/2023, patient was seen and examined:alert, oriented x3 and no apparent distress Constitutional Narrative: Patient is morbidly obese General Appearance: cooperative, well kempt and well developed Orientation / Consciousness: awake, oriented to person, oriented to place and oriented to time HEENT normocephalic, head/scalp atraumatic and moist oral mucous membranes Eyes PERRL, EOMs intact bilaterally and conjunctivae normal Neck supple, no JVD, thyroid normal and no carotid bruits General: trachea midline Resp normal respiratory effort, no retractions, no use of accessory muscles and clear to auscultation bilaterally Auscultation: Negative for rales, rhonchi or wheezes Cardio regular rate, regular rhythm, S1 normal heart sound, S2 normal heart sound, no murmurs, no rub and no gallops GI normal to inspection, nondistended, normoactive bowel sounds, soft to palpation, non-tender and non-distended Extremity Extremity Narrative: Edema is noted in both lower legs which is nonpitting Skin Skin Narrative: Diffuse skin changes are noted over the lower legs in keeping with chronic lymphedema Neuro oriented x3, CN's II-XII intact bilaterally, moves all extremities, no focal motor deficits and no sensory deficits noted Sensorium / Orientation: awake, alert, oriented to person, oriented to place and oriented to time Speech: speech normal Psych affect normal Patient was discharged to her assisted living facility on 04/25/2023 in stable condition. Weight / BMI Weight Weight: 128.4 kg Body Mass Index (BMI) 47.1 ABG / Lab / Microbiology Data 04/25/23 05:57 04/25/23 05:57 Laboratory: Laboratory Results - last 24 hr 04/24/23 12:33: POC Glucose 161 H 04/24/23 18:02: POC Glucose 250 H 04/24/23 22:52: POC Glucose 314 H 04/25/23 05:57: WBC 7.0, RBC 2.99 L, Hgb 8.1 L, Hct 25.3 L, MCV 84.6, MCH 27.1, MCHC 32.0, RDW Std Deviation 43.5, RDW Coeff of Vlad 14.2, Plt Count 145 L, MPV 11.5, Neut % (Auto) Not Reportable, Absolute Neuts (auto) 3.7, Absolute Lymphs (auto) 1.81, Total Counted 100, Neutrophils % (Manual) 42 L, Band Neutrophils % 11 H, Lymphocytes % (Manual) 26, Monocytes % (Manual) 12 H, Eosinophils % (Manual) 2, Metamyelocytes % 2 H, Myelocytes % 5 H, Diff Path Review May foll, Atypical Lymphocytes 1+, Platelet Estimate SLT DEC, RBC Morphology NORM C+C, Sodium 138, Potassium 3.7, Chloride 104, Carbon Dioxide 30.0, Anion Gap 4 L, BUN 37 H, Creatinine 1.51 H, Estim Creat Clear Calc 33.42, Est GFR (MDRD) Af Amer 45 L, Est GFR (MDRD) Non-Af 37 L, BUN/Creatinine Ratio 24.5 H, Glucose 344 H, Calcium 8.3 L Microbiology: Microbiology 04/21/23 09:40 Blood Culture (Wb) - Anticubital Left Bacteria Detection (PCR) - Final Staphylococcus aureus 04/21/23 09:40 Blood Culture (Wb) - Anticubital Left Blood Culture - Final Staphylococcus aureus 04/21/23 09:50 Blood Culture (Wb) - Left Hand Blood Culture - Final Staphylococcus aureus 04/22/23 11:00 Blood Culture (Wb) - Right Hand Blood Culture - Preliminary No growth in 48 hours. 04/19/23 13:23 Blood Culture (Wb) - Venous Bacteria Detection (PCR) - Final Staphylococcus aureus 04/19/23 13:23 Blood Culture (Wb) - Venous Blood Culture - Final Staphylococcus aureus 04/19/23 13:35 Blood Culture (Wb) - Venous Blood Culture - Final Staphylococcus aureus 04/19/23 14:32 Urine Catheter - Catheter Urine Culture - Final Streptococcus agalactiae (B) 04/20/23 04:35 Mucosa - Nose Coronavirus COVID-19 PCR - Final 04/19/23 13:13 Nasal Secretion SARS-CoV-2 & FLU Antigen (Rapid) - Final D/C Instructions Discharge Diet: 1800 Calorie Control Diet Weight Bearing Status: Full weight bearing Meaningful Use Info Meaningful Use Diagnoses (Choose all that apply): None applicable Discharge Plan Admission Admit Date/Time: 04/19/23 17:31 Primary Reason for Your Visit: Sepsis secondary to staph Attending Provider: Geo Sharp Primary Care Provider: Lulu Luna NP Consulting Providers: Karissa Szymanski; Tobias Dickerson; Jasper Ram; Gerson Cox; Melvin Lang; Stephon Christianson; Balbir Nicholas; Vidya Baez DIE EQUIPMENT OPERATOR; Bobby White Instructions Additional Instructions / Restrictions: Use oxygen at rest at 2 L/min, continue your nighttime oxygen setting while sleeping Discharge Orders/Prescriptions Prescriptions: New linezolid [Zyvox] 600 mg tablet 600 mg PO BID Qty: 21 0RF Rx Instructions: start in the evening on 04/25/22-take a total of 21 doses Continued furosemide [Lasix] 20 mg tablet 20 mg PO DAILY levothyroxine 150 mcg tablet 150 mcg PO DAILY@0600 atorvastatin 10 mg Tablet 10 mg PO DAILY pantoprazole 40 mg Tablet,Delayed Release (Dr/Ec) 40 mg PO DAILY escitalopram oxalate 10 mg Tablet 10 mg PO DAILY fenofibrate nanocrystallized [Tricor] 48 mg Tablet 48 mg PO DAILY gabapentin 100 mg capsule 200 mg PO BID Patient Comments: Takes morning and afternoon ropinirole 4 mg tablet 4 mg PO QHS Rx Instructions: administer 1-3 hours before bedtime levofloxacin 750 mg tablet 750 mg PO DAILY Qty: 7 0RF Hold Instructions: Pt has been DC'd Trulicity 0.75 mg/0.5 mL pen injector SUBCUT omega 1-zee-lbn-fish oil [Fish Oil] 300-1,000 mg capsule 1 cap PO BID gabapentin 400 mg capsule 400 mg PO QHS metoclopramide HCl 5 mg tablet 5 mg PO BID (DME) pen needle, diabetic [Easy Touch] 31 gauge x 1/4 needle MISCELLANEOUS potassium chloride 10 mEq capsule, extended release 10 meq PO DAILY insulin lispro 100 unit/mL insulin pen 1 sliding scale dose SUBCUT TIDCM Rx Instructions: 150-200- 2 units 201-250- 4 units 251-300- 6 units 301-350- 8 units 351+ -10 units insulin glargine [Lantus Solostar U-100 Insulin] 100 unit/mL (3 mL) insulin pen 49 unit SUBCUT QHS fluconazole 100 mg tablet 150 mg PO QWEEK Patient Comments: take 1 tablet by mouth once daily artifi.tears(hypromellose)(PF) 0.3 % drops 1 drp EACH EYE Q2H PRN (Reason: retinal hemmorage) prednisone 10 mg tablet 40 mg PO DAILY Qty: 42 0RF Rx Instructions: Take 4 tablets daily for 4 days then 3 tablets daily for 4 days then 2 tablets daily for 4 days then 1 tablet daily for 4 days then half tablet daily for 4 days Discontinued insulin glargine 100 unit/mL solution 45 unit SUBCUT QHS Referrals / Follow Up: Lulu Luna DIE EQUIPMENT OPERATOR, DIE EQUIPMENT OPERATOR-C [Primary Care Provider] - Within 2 Weeks Disposition Disposition (needs filled in before D/C Order can be placed): Assisted Living Charges/Coding Visit Charges Inpatient E&M: 15236 Disch Hosp >30min
[2023-04-25 12:05] LABS: Bedside Glucose 308 mg/dL (74-106)
--- NOTE | 2023-04-25 12:37 | CASEMGMT ---
CLEM CM NOTE: Home O2 ambulatory testing has been completed. Pt qualifies for O2 @ 2 l/m (pt's baseline) and now needs O2 @ 3 l/m w/exertion. Updated O2 script obtained from Dr Sharp and sent to [facility] via [facility] at this time. Shaun BSN RN CM
--- NOTE | 2023-04-25 12:53 | CASEMGMT ---
Social Work Per physician, pt is ready for discharge. WES met with pt to discuss discharge. Pt called her sister Amie while WES was in the room and Amie is able to transport home. Pt will need oxygen and sister is not able to get a tank from her home. SW provided pt with a portable tank from [facility] as this is pt's provider. Dischrage orders faxed to [facility] [place]. Nursing updated. JOYCE Zaragoza
[2023-04-25] MEDS: Linezolid 600 MG Tablet PO (12:56)
[2023-04-28 10:04] LABS: Pathologist Review Reviewed
== END 2023-04-25 13:50 | disposition home or self-care (01) | DRG 871 ==
LOC: ED 17:12 → ICU 17:57
PROVIDERS: Family Medicine; Internal Medicine Critical Care Medicine; Admitting Provider Internal Medicine; Emergency Provider Emergency Medicine; PCP Nurse Practitioner Adult Health; Visit Provider Internal Medicine
DX: A41.01 Sepsis due to Methicillin susceptible Staphylococcus aureus (principal); G92.8 Other toxic encephalopathy; J82.82 Acute eosinophilic pneumonia; J96.11 Chronic respiratory failure with hypoxia; Z68.42 Body mass index [BMI] 45.0-49.9, adult; D63.1 Anemia in chronic kidney disease; E11.22 Type 2 diabetes mellitus with diabetic chronic kidney disease; N18.32 Chronic kidney disease, stage 3b; E11.42 Type 2 diabetes mellitus with diabetic polyneuropathy; E66.01 Morbid (severe) obesity due to excess calories; Z79.4 Long term (current) use of insulin; E11.43 Type 2 diabetes mellitus with diabetic autonomic (poly)neuropathy; I12.9 Hypertensive chronic kidney disease with stage 1 through stage 4 chronic kidney disease, or unspecified chronic kidney disease; E03.9 Hypothyroidism, unspecified; G25.81 Restless legs syndrome; F32.A Depression, unspecified; E78.5 Hyperlipidemia, unspecified; I89.0 Lymphedema, not elsewhere classified; K21.9 Gastro-esophageal reflux disease without esophagitis; K31.84 Gastroparesis; G47.33 Obstructive sleep apnea (adult) (pediatric); F41.9 Anxiety disorder, unspecified; Z79.82 Long term (current) use of aspirin; Z79.84 Long term (current) use of oral hypoglycemic drugs; Z79.85 Long-term (current) use of injectable non-insulin antidiabetic drugs; Z79.899 Other long term (current) drug therapy
CPT/HCPCS: 36415; 36600; 71045; 80048; 80053; 80202; 81001; 82803; 82962; 83605; 83735; 84100; 85025; 87040; 87077; 87086; 87088; 87149; 87186; 87428; 87635; 87641; 93005; 93312; 93320; 93325; 94002; 94003; 97162; 97166; 97530; 97535; 99285; J7030; J7040; J7050; A4216

== ENCOUNTER 2023-05-01 22:40 | Inpatient (IN) | payer MEDICARE, MEDICAID, SELFPAY ==
[2023-05-01] VITALS (7 sets, daily range): BP systolic 189–211; BP diastolic 63–114; PULSE 80–90; RESP 12–26; TEMP 36.1; O2SAT 92–99; BMI 49.2
--- NOTE | 2023-05-01 22:45 | EKG12_ITS ---
Test Reason : SOB Blood Pressure : / mmHG Vent. Rate : 081 BPM Atrial Rate : 081 BPM P-R Int : 164 ms QRS Dur : 084 ms QT Int : 380 ms P-R-T Axes : 034 -09 098 degrees QTc Int : 441 ms Normal sinus rhythm Abnormal QRS-T angle, consider primary T wave abnormality Abnormal ECG Confirmed by ARMANDO KAPADIA, GARCIA ([id number]), editor index JOSH AGUILA ([id number]) on 05/06/2023 7:59:29 AM Referred By: Confirmed By:GARCIA ROBERTS MD
--- NOTE | 2023-05-01 22:48 | ED.VIS.DYS ---
HPI History of Present Illness Chief Complaint: Shortness of Breath Informant: patient and EMS Narrative Narrative: Patient presents with dyspnea that gradually worsened today, she was discharged from the hospital 2 days ago states that her symptoms were all better she was here for similar problems, but everything was still present, just continuing to get worse now. Per EMS, in the high 80%'s on her home 4 L and struggling to breathe. She states she has been having left shoulder and upper arm discomfort for several days, started while she was here in the hospital, worse to move her left arm, that is no different now, hurts a little more to take a breath on the left side, she is not sure if that is new or not. She denies any other new symptoms. She has a minor cough is nonproductive, when asked about swelling in her legs she states she does not know. When asked if she has a history of heart problems she states no but they run in the family. She is not sure why she was short of breath here in the hospital, she states she was diagnosed as possibly being septic without an obvious etiology. [facility] Medical History Anxiety and depression Chronic acquired lymphedema Chronic anemia CKD (chronic kidney disease), stage III Diabetes mellitus, type 2 HLD (hyperlipidemia) HTN (hypertension) Hypothyroidism Hypoxia Morbid obesity SACHIN (obstructive sleep apnea) Retinal hemorrhage Home Medications atorvastatin 10 mg tablet 10 mg PO DAILY cholesterol 09/24/22 [History Last Taken 04/13/23] escitalopram oxalate 10 mg tablet 10 mg PO DAILY anxiety 09/24/22 [History Last Taken 04/13/23] fenofibrate nanocrystallized 48 mg tablet (Tricor) 48 mg PO DAILY cholesterol 09/24/22 [History Last Taken 04/13/23] pantoprazole 40 mg tablet,delayed release 40 mg PO DAILY HEARTBURN 09/24/22 [History Last Taken 11/15/22] levofloxacin 750 mg tablet 750 mg PO DAILY SEE PCP #7 tabs 11/18/22 [Rx Last Taken Unknown] aspirin 81 mg tablet,delayed release (Adult Low Dose Aspirin) 81 mg PO DAILY 03/05/23 [History Last Taken Unknown] exenatide microspheres 2 mg subcutaneous extended release suspension mg subcut 03/05/23 [History Last Taken Unknown] furosemide 20 mg tablet (Lasix) 20 mg PO DAILY EDEMA 03/05/23 [History Last Taken 04/13/23] gabapentin 100 mg capsule 200 mg PO BID PAIN 03/05/23 [History Last Taken 04/13/23] glipizide 10 mg tablet 10 mg PO BID 03/05/23 [History Last Taken Unknown] levothyroxine 150 mcg tablet 150 mcg PO DAILY@0600 SEE PCP 03/05/23 [History Last Taken Unknown] metformin 1,000 mg tablet 1,000 mg PO BID 03/05/23 [History Last Taken Unknown] ropinirole 4 mg tablet 4 mg PO QHS 03/05/23 [History Last Taken Unknown] sitagliptin phosphate 100 mg tablet (Januvia) 100 mg PO DAILY 03/05/23 [History Last Taken Unknown] triamcinolone acetonide 0.1 % topical cream 1 applic topical TID 03/05/23 [History Last Taken Unknown] dulaglutide 0.75 mg/0.5 mL subcutaneous pen injector (Trulicity) 0.75 mg subcut 04/14/23 [History Last Taken Unknown] fluconazole 100 mg tablet 150 mg PO QWEEK SEE PCP 04/14/23 [History Last Taken Unknown] gabapentin 400 mg capsule 400 mg PO QHS SEE PCP 04/14/23 [History Last Taken 04/13/23] insulin glargine 100 unit/mL (3 mL) subcutaneous pen (Lantus Solostar U-100 Insulin) 49 unit subcut QHS SEE PCP 04/14/23 [History Last Taken Unknown] insulin lispro 100 unit/mL subcutaneous pen 1 sliding scale dose subcut TIDCM SEE PCP 04/14/23 [History Last Taken Unknown] metoclopramide HCl 5 mg tablet 5 mg PO BID SEE PCP 04/14/23 [History Last Taken Unknown] omega 9-upa-pqp-fish oil 300 mg-1,000 mg capsule (Fish Oil) 1 cap PO BID VITAMIN 04/14/23 [History Last Taken 04/13/23] pen needle, diabetic 31 gauge x 1/4 (Easy Touch) 04/14/23 [History Last Taken Unknown] potassium chloride 10 mEq capsule,extended release 10 meq PO DAILY SEE PCP 04/14/23 [History Last Taken Unknown] artifi.tears(hypromellose)(PF) 0.3 % eye drops 1 drp EACH EYE Q2H PRN retinal hemmorage 04/15/23 [History Last Taken Unknown] prednisone 10 mg tablet 40 mg (4 x 10 mg) PO DAILY #42 tabs 04/18/23 [Rx Last Taken Unknown] linezolid 600 mg tablet (Zyvox) 600 mg PO BID #21 tabs 04/25/23 [Rx Last Taken Unknown] Allergy/AdvReac Type Severity Reaction Status Date / Time No Known Allergies Allergy Verified 04/14/23 16:28 Family History Mother Heart disease Hypertension Diabetes Father Prostate cancer Surgical History H/O cataract removal with insertion of prosthetic lens History of cholecystectomy History of surgery on lower extremity Social History housing: group home Smoking Status: Never smoker alcohol intake: never substance use type: does not use ROS ROS ED Review of Systems ROS Unobtainable: other Details: Due to acuity, limited Constitutional Constitutional ED: Denies chills or fever(s) Cardiovascular Cardiovascular: Reports chest pain and orthopnea; Denies palpitations Respiratory/Chest Respiratory/Chest: Reports cough, dyspnea, dyspnea on exertion and orthopnea; Denies sputum Gastrointestinal Gastrointestinal: Denies abdominal pain, diarrhea, nausea or vomiting Musculoskeletal Musculoskeletal: Denies back pain or neck pain Integumentary Denies abscess or rash Neurologic Neurologic: Denies paresthesias or weakness EXAM Physical Exam Const Vital Signs: 05/01/23 22:41 05/01/23 22:45 05/01/23 22:47 Temperature 97.0 F L Temperature Source Temporal Pulse Rate 87 90 Respiratory Rate 26 H 26 H Respiratory Effort Short of Breath Labored Blood Pressure 211/90 H Blood Pressure Mean 130 Pulse Ox 92 92 Oxygen Delivery Method Nasal Cannula Nasal Cannula Nasal Cannula Oxygen Flow Rate (L/min) 4 4 2 Fraction of Inspired Oxygen (FIO2) 05/01/23 23:00 05/01/23 23:17 05/01/23 23:24 Temperature 97.0 F L Temperature Source Temporal Pulse Rate 87 80 84 Respiratory Rate 21 H 18 24 H Respiratory Effort Blood Pressure 189/63 H Blood Pressure Mean 105 Pulse Ox 99 98 Oxygen Delivery Method Bi-pap Oxygen Flow Rate (L/min) Fraction of Inspired Oxygen (FIO2) 30 05/01/23 23:24 05/01/23 23:51 Temperature Temperature Source Pulse Rate 87 Respiratory Rate 20 H Respiratory Effort Blood Pressure 189/114 H Blood Pressure Mean 139 Pulse Ox 98 97 Oxygen Delivery Method Bi-pap Nasal Cannula Oxygen Flow Rate (L/min) 6 Fraction of Inspired Oxygen (FIO2) Positive well nourished, well developed and obese Constitutional Narrative: Mild respiratory distress General Appearance ED: well developed Nutritional Appearance: obese HEENT Reports moist mucous membranes normocephalic and atraumatic Eyes PERRL and EOMs intact bilaterally Neck full ROM and supple Neck Narrative: Possible mild JVD exam limited by obesity Resp Resp Narrative: Patient in respiratory distress, grunting, speaking in 5-10 word sentences. Bibasilar Rales/rhonchi otherwise clear. Trachea midline. Equal sounds bilaterally. Cardio regular rate and regular rhythm Heart Sounds: murmur systolic I/ soft left sternal border GI non-tender and non-distended Auscultation: normoactive bowel sounds Palpation: soft Back/Spine no CVA tenderness General Back: other FROM Extremity normal to inspection General Extremety ED: Yes edema; Negative for pulses abnormal or tenderness General Extremity: edema bilateral lower extremity Details: moderate; Negative for pulses abnormal Neuro oriented x3, CN's II-XII intact bilaterally and no sensory deficits noted Sensorium / Orientation: awake and alert Motor Exam: strength 5/5 throughout Psych Mood & Affect: anxious Skin no rashes or lesions noted and no wounds MDM MDM MDM Narrative Medical decision making narrative: Reviewing some records, it appears that the patient had positive blood cultures with MSSA, what appears to be noncardiogenic pulmonary edema, and her lungs sound like that again. She is struggling somewhat of breathing grunting, uncomfortable. I had respiratory placed her emergently on BiPAP and obtain an ABG, also give her some albuterol, although she is edematous in her lower extremities I do not know that she necessarily is a full body fluid overloaded but given her blood pressure 211/90 and giving her Lasix in addition to all of this anyway. Tolerating BiPAP well, pressure came down some into the 180s, she does not have active chest discomfort right now, her shoulder hurts worse to move around suggesting possible musculoskeletal etiology. I did a D-dimer given her somewhat pleuritic nature of the discomfort, slightly elevated, renal function is just good enough to tolerate CTA so that was done and negative for pulmonary embolus, basically consistent with what the chest x-ray shows, pulmonary edema. Suggest noncardiogenic source. Is tolerating BiPAP doing very well her ABG did not show significant hypercapnia and so I am okay with stepdown admission. History & Record Review Discussion w/independent historian: EMS personnel and Patient Additional record(s) reviewed:: Other (Reviewed some prior recent inpatient records including echocardiogram) Lab Data Attestation: I reviewed the patient's lab results. Labs: Laboratory Results - last 24 hr 05/01/23 22:50 WBC 7.9 RBC 3.33 L Hgb 9.0 L Hct 29.4 L MCV 88.3 MCH 27.0 MCHC 30.6 L RDW Std Deviation 47.2 H RDW Coeff of Vlad 14.6 Plt Count 214 MPV 11.3 Immature Gran % (Auto) 4.100 H Neut % (Auto) 71.7 H Lymph % (Auto) 9.9 L Bladen % (Auto) 12.2 H Eos % (Auto) 1.7 Baso % (Auto) 0.4 Absolute Neuts (auto) 5.7 Absolute Lymphs (auto) 0.78 L Nucleated RBC % 0 D-Dimer Quant (PE/DVT) 0.71 H* Sodium 138 Potassium 4.9 Chloride 103 Carbon Dioxide 31.0 Anion Gap 4 L BUN 45 H Creatinine 1.66 H Estim Creat Clear Calc 30.40 Est GFR (MDRD) Af Amer 40 L Est GFR (MDRD) Non-Af 33 L BUN/Creatinine Ratio 27.1 H Glucose 330 H Lactic Acid 1.5 Calcium 9.0 Troponin I High Sens 21 B-Natriuretic Peptide 174.9 H ABG Data ABG results: ABG 05/01/23 23:09 Specimen Type ART Sample Site R Radial pH 7.42 Bicarbonate Actual 30.9 H Total CO2 32 Base Excess 6 H O2 Saturation 95 O2 % 35.0 ABG pCO2 48.2 H ABG pO2 77 Madi Test Positive O2 Delivery Device BiPAP Vent Mode Not entered Clinical Comments 16. 10. 35% Radiography Chest X-Ray - ED: 1 View, Read by ED Physician and - (pulmonary edema) Diagnostic Testing: Clinical Impression(s) from Imaging Studies Chest X-Ray 05/01/23 22:53 IMPRESSION: Bilateral interstitial and alveolar opacities especially in the lung bases. Findings may indicate edema or infection. Electronically Signed: Vivek Hong MD at 23:15 EDT Reading Location ID and State: [facility] / [place] Tel , Service support , Chest CTA 05/01/23 23:14 IMPRESSION: 1. Interstitial and alveolar pulmonary edema bilaterally, similar to the previous examination, with a small left pleural effusion. 2. No evidence of pulmonary embolism. Electronically Signed: Vivek Hong MD at 23:54 EDT , Rhythm Strip Rhythm Strip: Sinus Rhythm Rate: 80 Ectopy: None EKG Initial EKG: Attestation: I personally reviewed and interpreted this EKG as follows: Interpretation: Sinus Rhythm, No Acute Injury Pattern and Inverted T-Waves (I, aVL) Prior EKG tracings: available for review Prior: Unchanged Management Discussion w/another healthcare provider: Hospitalist Critical Care Time Critical Care Time: Yes Critical care time (excluding procedures): 30-74 minutes (36 min), Including time spent:, Discussing w/Patient &/or Family/National Account Director, Discussing w/Consultants, Arranging Admission or Transfer and Performing Direct Patient Care at Bedside Discharge Plan Triage Chief Complaint: Shortness of Breath ED Provider: Kai Bonilla Dx/Rx/DC Orders Clinical Impression: Acute hypoxic respiratory failure, Pulmonary edema, Pleural effusion, left, Hypertensive urgency Prescriptions: No Action furosemide [Lasix] 20 mg tablet 20 mg PO DAILY levothyroxine 150 mcg tablet 150 mcg PO DAILY@0600 atorvastatin 10 mg Tablet 10 mg PO DAILY pantoprazole 40 mg Tablet,Delayed Release (Dr/Ec) 40 mg PO DAILY escitalopram oxalate 10 mg Tablet 10 mg PO DAILY fenofibrate nanocrystallized [Tricor] 48 mg Tablet 48 mg PO DAILY gabapentin 100 mg capsule 200 mg PO BID Patient Comments: Takes morning and afternoon ropinirole 4 mg tablet 4 mg PO QHS Rx Instructions: administer 1-3 hours before bedtime levofloxacin 750 mg tablet 750 mg PO DAILY Qty: 7 0RF Hold Instructions: Pt has been DC'd Trulicity 0.75 mg/0.5 mL pen injector 0.75 mg SUBCUT omega 7-cxs-tll-fish oil [Fish Oil] 300-1,000 mg capsule 1 cap PO BID gabapentin 400 mg capsule 400 mg PO QHS metoclopramide HCl 5 mg tablet 5 mg PO BID (DME) pen needle, diabetic [Easy Touch] 31 gauge x 1/4 needle MISCELLANEOUS potassium chloride 10 mEq capsule, extended release 10 meq PO DAILY insulin lispro 100 unit/mL insulin pen 1 sliding scale dose SUBCUT TIDCM Rx Instructions: 150-200- 2 units 201-250- 4 units 251-300- 6 units 301-350- 8 units 351+ -10 units insulin glargine [Lantus Solostar U-100 Insulin] 100 unit/mL (3 mL) insulin pen 49 unit SUBCUT QHS fluconazole 100 mg tablet 150 mg PO QWEEK Patient Comments: take 1 tablet by mouth once daily artifi.tears(hypromellose)(PF) 0.3 % drops 1 drp EACH EYE Q2H PRN (Reason: retinal hemmorage) prednisone 10 mg tablet 40 mg PO DAILY Qty: 42 0RF Rx Instructions: Take 4 tablets daily for 4 days then 3 tablets daily for 4 days then 2 tablets daily for 4 days then 1 tablet daily for 4 days then half tablet daily for 4 days linezolid [Zyvox] 600 mg tablet 600 mg PO BID Qty: 21 0RF Rx Instructions: start in the evening on 04/25/22-take a total of 21 doses Primary Care Provider: Lulu Luna TANK SETTER Referrals: Lulu Luna TANK SETTER, [facility]TER-C [Primary Care Provider] - Disposition Disposition: Acute Care Hospital [facility]
--- NOTE | 2023-05-01 22:53 | RAD_ITS ---
EXAM: XR CHEST, 1 VIEW CLINICAL INDICATION: sob TECHNIQUE: Frontal view of the chest. COMPARISON: Single view chest 04/21/2023 FINDINGS: LUNGS AND PLEURAL SPACES: Bilateral interstitial and alveolar opacities especially in the lung bases. No pneumothorax. No effusion. HEART: Mild enlargement of the cardiac silhouette. MEDIASTINUM: Central airways and mediastinal contour are unremarkable. BONES/JOINTS: Unremarkable. SOFT TISSUES: Unremarkable. RAD/Chest 1 View (Portable) IMPRESSION: Bilateral interstitial and alveolar opacities especially in the lung bases. Findings may indicate edema or infection. Electronically Signed: Vivek Hong MD at 23:15 EDT ,
[2023-05-01 22:59] LABS: Absolute Lymphocyte Count 0.78 X10^3/uL (0.83-4.51); Absolute Neutrophil Count 5.7 X10^3/uL (2.0-7.7); Basophil# 0.03 X10^3/uL; Basophil% 0.4 % (0-1); Eosinophil# 0.13 X10^3/uL; Eosinophils% 1.7 % (0-5); Hematocrit 29.4 % (37-47); Lymphocyte # 0.78 X10^3/ul (0.83-4.51); Lymphocyte % 9.9 % (19-41); Mean Corp Hgb Conc 30.6 g/dL (32-36); Mean Corpuscular Volume 88.3 fL (81-99); Mean Platelet Vol. 11.3 fl (6.2-12.0); Monocyte# 0.96 X10^3/uL; Monocyte% 12.2 % (0-10); NRBC Flagged by Analyzer 0 % (0-5); Neutrophil # 5.65 X10^3/uL (2.7-7.7); Neutrophil % 71.7 % (47-70); Platelet Count 214 K/mm3 (150-450); RBC Distribution Width CV 14.6 % (11.6-14.6); RBC Distribution Width SD 47.2 fl (35.1-43.9); Red Blood Count 3.33 M/mm3 (4.2-5.4); White Blood Count 7.9 K/mm3 (4.4-11.0)
[2023-05-01 23:11] LABS: D-Dimer Quantitative (DVT/PE) 0.71 FEU/ug/m (0.27-0.49)
[2023-05-01 23:13] LABS: Allen Test Positive; Base Excess 6 mmol/L (-2 to +2); Bicarbonate 30.9 mmol/L (22-26); Blood Gas Specimen Type ART; Mode Not entered; O2 Delivery Device BiPAP; PO2 77 mmHG (75-100); SITE R Radial; SO2 95 % (95-99); Total Carbon Dioxide 32 mmol/L; pCO2 48.2 mmHg (35-45); pH 7.42 (7.35-7.45)
--- NOTE | 2023-05-01 23:14 | CT_ITS ---
EXAM: CT ANGIOGRAPHY CHEST WITHOUT AND WITH INTRAVENOUS CONTRAST CLINICAL INDICATION: left pleuritic CP, elevated d-dimer TECHNIQUE: Helically acquired angiography images were obtained of the chest without and with intravenous contrast. This CT exam was performed using one or more of the following dose reduction techniques: automated exposure control, adjustment of the mA and/or kV according to patient size, and/or use of iterative reconstruction technique. MIP reconstructed images were created and reviewed. CONTRAST: IV 100mL [id number] RADIATION DOSE: CTDIvol = 19.79 mGy, DLP = 562.41 mGy-cm COMPARISON: Chest CT 04/14/2023 FINDINGS: PULMONARY ARTERIES: Unremarkable. Normal in caliber. No evidence of pulmonary embolism. AORTA: Unremarkable. Normal in caliber. No evidence of dissection. GREAT VESSELS OF AORTIC ARCH: Unremarkable. Normal in caliber. No evidence of dissection. LUNGS AND PLEURAL SPACES: Interstitial and alveolar pulmonary edema bilaterally, similar to the previous examination, with a small left pleural effusion. No mass. No pneumothorax. HEART: Mild cardiomegaly. No pericardial effusion. No significant coronary artery calcifications. MEDIASTINUM: Unremarkable. No mediastinal or hilar adenopathy. Esophagus is unremarkable. No hiatal hernia. THYROID: Unremarkable. No thyroid lesions. BONES/JOINTS: Degenerative changes of the spine. No suspicious lytic or blastic abnormality. CT/CTA Chest W/WO Contrast IMPRESSION: 1. Interstitial and alveolar pulmonary edema bilaterally, similar to the previous examination, with a small left pleural effusion. 2. No evidence of pulmonary embolism. Electronically Signed: Vivek Hong MD at 23:54 EDT ,
[2023-05-01] MEDS: Albuterol 2.5 MG/3 ML VIAL.NEB. INHALATION ×3 (23:15)
[2023-05-01 23:20] LABS: Anion Gap 4 (5-15); BUN 45 mg/dL (7-18); BUN/Creat Ratio 27.1 RATIO (10-20); Chloride 103 mmol/L (98-107); Creatinine, Serum 1.66 mg/dL (0.55-1.02); EST Glomerular Filtration Rate 33 mL/min (>60); Est Glom Filt Rate - Afr Amer 40 mL/min (>60); Glucose 330 mg/dL (74-106); Lactic Acid 1.5 mmol/L (0.4-1.9); Potassium 4.9 mmol/L (3.5-5.1); Sodium Level 138 mmol/L (136-145); Troponin-I HS 21 pg/mL (3.0-54.0)
[2023-05-01 23:27] LABS: BNP,B-Type NATRIURETIC PEPTIDE 174.9 pg/mL (0-100)
[2023-05-01] MEDS: Furosemide 40 MG/4 ML Vial IV (23:48)
[2023-05-02] VITALS (9 sets, daily range): BP systolic 95–163; BP diastolic 37–83; PULSE 78–84; RESP 12–21; TEMP 35.7–37.2; O2SAT 94–99; BMI 47.3
--- NOTE | 2023-05-02 00:02 | PCM.HP.STD ---
HPI - General General Date of Admission: 05/02/23 Date of Service: 05/02/23 HPI Narrative TOBIN BIGGS, is a 63 F with a significant history of hypertension, hypothyroidism on Synthroid; diabetes mellitus, and obstructive sleep apnea (does not use her CPAP because she feels uncomfortable using it) who was recently admitted at [facility] and admitted at [facility] from 04/19/2023 to 04/25/2023 presenting to the ED by paramedics with shortness of breath that started on the same day of presentation. Patient was last discharged to assisted nursing facility on oxygen of 4 L. On this presentation on the oxygen 4 L her oxygen saturation by paramedics was 87 to 88%. On arrival to emergency department patient was placed on BiPAP. Also patient reports of left shoulder pain that restarted on the same day of presentation. She reported when she was at hospital she had this same left shoulder pain. She reports mild nonproductive cough. She denies any other symptoms. She has gained weight or not. She does not know whether she has had any increased swelling. [facility] Medical History Anxiety and depression Chronic acquired lymphedema Chronic anemia CKD (chronic kidney disease), stage III Diabetes mellitus, type 2 HLD (hyperlipidemia) HTN (hypertension) Hypothyroidism Hypoxia Morbid obesity SACHIN (obstructive sleep apnea) Retinal hemorrhage Home Medications atorvastatin 10 mg tablet 10 mg PO DAILY cholesterol 09/24/22 [History Last Taken 04/13/23] escitalopram oxalate 10 mg tablet 10 mg PO DAILY anxiety 09/24/22 [History Last Taken 04/13/23] fenofibrate nanocrystallized 48 mg tablet (Tricor) 48 mg PO DAILY cholesterol 09/24/22 [History Last Taken 04/13/23] pantoprazole 40 mg tablet,delayed release 40 mg PO DAILY HEARTBURN 09/24/22 [History Last Taken 11/15/22] levofloxacin 750 mg tablet 750 mg PO DAILY SEE PCP #7 tabs 11/18/22 [Rx Last Taken Unknown] aspirin 81 mg tablet,delayed release (Adult Low Dose Aspirin) 81 mg PO DAILY 03/05/23 [History Last Taken Unknown] exenatide microspheres 2 mg subcutaneous extended release suspension mg subcut 03/05/23 [History Last Taken Unknown] furosemide 20 mg tablet (Lasix) 20 mg PO DAILY EDEMA 03/05/23 [History Last Taken 04/13/23] gabapentin 100 mg capsule 200 mg PO BID PAIN 03/05/23 [History Last Taken 04/13/23] glipizide 10 mg tablet 10 mg PO BID 03/05/23 [History Last Taken Unknown] levothyroxine 150 mcg tablet 150 mcg PO DAILY@0600 SEE PCP 03/05/23 [History Last Taken Unknown] metformin 1,000 mg tablet 1,000 mg PO BID 03/05/23 [History Last Taken Unknown] ropinirole 4 mg tablet 4 mg PO QHS 03/05/23 [History Last Taken Unknown] sitagliptin phosphate 100 mg tablet (Januvia) 100 mg PO DAILY 03/05/23 [History Last Taken Unknown] triamcinolone acetonide 0.1 % topical cream 1 applic topical TID 03/05/23 [History Last Taken Unknown] dulaglutide 0.75 mg/0.5 mL subcutaneous pen injector (Trulicity) 0.75 mg subcut 04/14/23 [History Last Taken Unknown] fluconazole 100 mg tablet 150 mg PO QWEEK SEE PCP 04/14/23 [History Last Taken Unknown] gabapentin 400 mg capsule 400 mg PO QHS SEE PCP 04/14/23 [History Last Taken 04/13/23] insulin glargine 100 unit/mL (3 mL) subcutaneous pen (Lantus Solostar U-100 Insulin) 49 unit subcut QHS SEE PCP 04/14/23 [History Last Taken Unknown] insulin lispro 100 unit/mL subcutaneous pen 1 sliding scale dose subcut TIDCM SEE PCP 04/14/23 [History Last Taken Unknown] metoclopramide HCl 5 mg tablet 5 mg PO BID SEE PCP 04/14/23 [History Last Taken Unknown] omega 2-stx-bya-fish oil 300 mg-1,000 mg capsule (Fish Oil) 1 cap PO BID VITAMIN 04/14/23 [History Last Taken 04/13/23] pen needle, diabetic 31 gauge x 1/4 (Easy Touch) 04/14/23 [History Last Taken Unknown] potassium chloride 10 mEq capsule,extended release 10 meq PO DAILY SEE PCP 04/14/23 [History Last Taken Unknown] artifi.tears(hypromellose)(PF) 0.3 % eye drops 1 drp EACH EYE Q2H PRN retinal hemmorage 04/15/23 [History Last Taken Unknown] prednisone 10 mg tablet 40 mg (4 x 10 mg) PO DAILY #42 tabs 04/18/23 [Rx Last Taken Unknown] linezolid 600 mg tablet (Zyvox) 600 mg PO BID #21 tabs 04/25/23 [Rx Last Taken Unknown] Allergy/AdvReac Type Severity Reaction Status Date / Time No Known Allergies Allergy Verified 04/14/23 16:28 Family History Mother Heart disease Hypertension Diabetes Father Prostate cancer Surgical History H/O cataract removal with insertion of prosthetic lens History of cholecystectomy History of surgery on lower extremity Social History housing: long term Smoking Status: Never smoker alcohol intake: never substance use type: does not use ROS ROS Narrative Pertinent positives and pertinent negatives as noted in HPI. All other systems were reviewed and are negative or patient did not know. Vital Signs Vital Signs Vital Signs: 05/01/23 22:41 05/01/23 22:45 05/01/23 22:47 Temperature 97.0 F L Temperature Source Temporal Pulse Rate 87 90 Respiratory Rate 26 H 26 H Respiratory Effort Short of Breath Labored Blood Pressure 211/90 H Blood Pressure Mean 130 Pulse Ox 92 92 Oxygen Delivery Method Nasal Cannula Nasal Cannula Nasal Cannula Oxygen Flow Rate (L/min) 4 4 2 Fraction of Inspired Oxygen (FIO2) 05/01/23 23:00 05/01/23 23:17 05/01/23 23:24 Temperature 97.0 F L Temperature Source Temporal Pulse Rate 87 80 84 Respiratory Rate 21 H 18 24 H Respiratory Effort Blood Pressure 189/63 H Blood Pressure Mean 105 Pulse Ox 99 98 Oxygen Delivery Method Bi-pap Oxygen Flow Rate (L/min) Fraction of Inspired Oxygen (FIO2) 30 05/01/23 23:24 05/01/23 23:51 Temperature Temperature Source Pulse Rate 87 Respiratory Rate 20 H Respiratory Effort Blood Pressure 189/114 H Blood Pressure Mean 139 Pulse Ox 98 97 Oxygen Delivery Method Bi-pap Nasal Cannula Oxygen Flow Rate (L/min) 6 Fraction of Inspired Oxygen (FIO2) Weight Weight: 134.3 kg Body Mass Index (BMI) 49.2 Physical Exam Narrative Physical exam: General: Morbidly obese Head: Normocephalic, atraumatic, no tenderness Eyes: Vision is grossly intact. EOMI ENT: On bipap Neck: Nontender, No thyromegaly. CVS: Regular rate and rhythm. S1-S2 present. No murmur, gallop or rub. Respiratory : Diminished bilaterally, chest wall nontender Abdomen: Soft, nontender, nondistended, normal bowel sounds, no masses : Deferred Back: Nontender, no CVA tenderness. Extremities: Bilateral leg edema; nontender full range of motion, no trauma Skin: Normal color, no trauma, abrasions Neuro: Alert, oriented, cranial nerves II through XII grossly intact. Psychiatry: Normal mood. Normal affect. Results Lab / Micro Data 05/01/23 22:50 05/01/23 22:50 Labs: Laboratory Results - last 24 hr 05/01/23 22:50: WBC 7.9, RBC 3.33 L, Hgb 9.0 L, Hct 29.4 L, MCV 88.3, MCH 27.0, MCHC 30.6 L, RDW Std Deviation 47.2 H, RDW Coeff of Vlad 14.6, Plt Count 214, MPV 11.3, Immature Gran % (Auto) 4.100 H, Neut % (Auto) 71.7 H, Lymph % (Auto) 9.9 L, [place] % (Auto) 12.2 H, Eos % (Auto) 1.7, Baso % (Auto) 0.4, Absolute Neuts (auto) 5.7, Absolute Lymphs (auto) 0.78 L, Nucleated RBC % 0, D-Dimer Quant (PE/DVT) 0.71 H*, Sodium 138, Potassium 4.9, Chloride 103, Carbon Dioxide 31.0, Anion Gap 4 L, BUN 45 H, Creatinine 1.66 H, Estim Creat Clear Calc 30.40, Est GFR (MDRD) Af Amer 40 L, Est GFR (MDRD) Non-Af 33 L, BUN/Creatinine Ratio 27.1 H, Glucose 330 H, Lactic Acid 1.5, Calcium 9.0, Troponin I High Sens 21, B-Natriuretic Peptide 174.9 H ABG Data ABG results: ABG 05/01/23 23:09 Specimen Type ART Sample Site R Radial pH 7.42 Bicarbonate Actual 30.9 H Total CO2 32 Base Excess 6 H O2 Saturation 95 O2 % 35.0 ABG pCO2 48.2 H ABG pO2 77 Madi Test Positive O2 Delivery Device BiPAP Vent Mode Not entered Clinical Comments 16. 10. 35% Rhythm Strip Rhythm Strip: Sinus Rhythm Rate: 80 Ectopy: None Radiology Impression Chest X-Ray 05/01/23 22:53 IMPRESSION: Bilateral interstitial and alveolar opacities especially in the lung bases. Findings may indicate edema or infection. Electronically Signed: Vivek Hong MD at 23:15 EDT Reading Location ID and State: [facility] / [place] Tel , Service support , Chest CTA 05/01/23 23:14 IMPRESSION: 1. Interstitial and alveolar pulmonary edema bilaterally, similar to the previous examination, with a small left pleural effusion. 2. No evidence of pulmonary embolism. 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 This may indicate edema or infection. Chest x-ray was independently interpreted by hospitalist: Agrees with radiology interpretation. Review of labs showed elevated D-dimer of 0.71. Follow-up chest CTA was done. Per radiologist chest CTA with interstitial and alveolar pulmonary edema bilaterally, similar to the previous examination, with a small left pleural effusion. No evidence of pulmonary embolism. Patient is morbidly obese and understandably BNP would be low even for heart failure and should not be this low even with heart failure. CY on 04/23/2023 showed estimated ejection fraction of 60%. Daily weights. Fluid restriction. Lasix IV. Hypertensive emergency Improved with BiPAP. Continue home blood pressure medication. As needed hydralazine ordered. Left shoulder pain High-sensitivity troponin series ordered. Diabetes mellitus neuropathy and nephropathy Blood glucose is not within goal. Basal insulin continue. Accu-Chek with correction scale insulin ordered. Morbid obesity: BMI of 49.3 kg per metered square. Complicates care. Recent sepsis secondary to MRSA: Patient is no longer septic. Levaquin and Zyvox continued. CKD stage IIIb: Stable. DVT prophylaxis Subcutaneous Lovenox ordered. Time spent in the patient's overall evaluation,decision-making process, review of diagnostic data, adjustment of management, discussion with other providers, nursing nursing and ancillary staff involved in patient's care documentation, 74 minutes. Charges/Coding Visit Charges Inpatient E&M: 80604 Init Hosp L3
[2023-05-02 03:41] LABS: Hematocrit 26.7 % (37-47); Hemoglobin 8.1 g/dL (12.0-15.0); Mean Corp Hgb Conc 30.3 g/dL (32-36); Mean Corpuscular Hgb 26.3 pg (27.0-32.0); Mean Corpuscular Volume 86.7 fL (81-99); Mean Platelet Vol. 10.9 fl (6.2-12.0); Platelet Count 191 K/mm3 (150-450); RBC Distribution Width CV 14.6 % (11.6-14.6); RBC Distribution Width SD 45.4 fl (35.1-43.9); Red Blood Count 3.08 M/mm3 (4.2-5.4); White Blood Count 7.2 K/mm3 (4.4-11.0)
[2023-05-02 04:02] LABS: Troponin-I HS 28 pg/mL (3.0-54.0)
[2023-05-02 04:04] LABS: Anion Gap 3 (5-15); BUN 41 mg/dL (7-18); BUN/Creat Ratio 24.4 RATIO (10-20); Calcium,Total 8.8 mg/dL (8.5-10.1); Chloride 102 mmol/L (98-107); Creatinine, Serum 1.68 mg/dL (0.55-1.02); EST Glomerular Filtration Rate 33 mL/min (>60); Est Glom Filt Rate - Afr Amer 39 mL/min (>60); Estimated Creatinine Clearance 30.04 ml/min; Glucose 287 mg/dL (74-106); Potassium 4.8 mmol/L (3.5-5.1); Sodium Level 140 mmol/L (136-145)
[2023-05-02] MEDS: Levothyroxine 150 MCG Tablet PO (05:21)
[2023-05-02] MEDS: Acetaminophen 325 MG Tablet 650 MG PO ×2 (05:31→11:41)
[2023-05-02 05:57] LABS: Troponin-I HS 26 pg/mL (3.0-54.0)
[2023-05-02] MEDS: Insulin Lispro 100 UNIT/ML INSULN.PEN SC ×3 (06:36→16:36)
[2023-05-02 07:10] LABS: Bedside Glucose 216 mg/dL (74-106)
--- NOTE | 2023-05-02 08:19 | PN.HOSP_ITS ---
Subjective Subjective complaining of chest pain and pain going down her left arm. Objective Data Objective Data Vital Signs: Vital Signs Temp Pulse Resp BP Pulse Ox O2 Del Method O2 Flow Rate 36.6 C 81 16 105/37 L 98 Nasal Cannula 4 05/02/23 08:00 05/02/23 08:00 05/02/23 08:00 05/02/23 08:00 05/02/23 08:00 05/02/23 08:00 05/02/23 08:00 FiO2 30 05/02/23 01:24 Oxygen Flow Rate (L/min) 4 Oxygen Delivery Method Nasal Cannula Weight: 129 kg Body Mass Index (BMI) 47.3 Intake & Output: Intake and Output for Last 24 Hours 04/30/23 05/01/23 05/02/23 23:59 23:59 23:59 Output Total 2400 / 2400 Balance -2400 / -2400 Lab / Micro Data 05/02/23 03:30 05/02/23 03:30 Labs: Laboratory Results - last 24 hr 05/01/23 22:50: WBC 7.9, RBC 3.33 L, Hgb 9.0 L, Hct 29.4 L, MCV 88.3, MCH 27.0, MCHC 30.6 L, RDW Std Deviation 47.2 H, RDW Coeff of Vlad 14.6, Plt Count 214, MPV 11.3, Immature Gran % (Auto) 4.100 H, Neut % (Auto) 71.7 H, Lymph % (Auto) 9.9 L , [place] % (Auto) 12.2 H, Eos % (Auto) 1.7, Baso % (Auto) 0.4, Absolute Neuts (auto) 5.7, Absolute Lymphs (auto) 0.78 L, Nucleated RBC % 0, D-Dimer Quant (PE/DVT) 0.71 H*, Sodium 138, Potassium 4.9, Chloride 103, Carbon Dioxide 31.0, Anion Gap 4 L, BUN 45 H, Creatinine 1.66 H, Estim Creat Clear Calc 30.40, Est GFR (MDRD) Af Amer 40 L, Est GFR (MDRD) Non-Af 33 L, BUN/Creatinine Ratio 27.1 H , Glucose 330 H, Lactic Acid 1.5, Calcium 9.0, Troponin I High Sens 21, B- Natriuretic Peptide 174.9 H 05/02/23 03:30: WBC 7.2, RBC 3.08 L, Hgb 8.1 L, Hct 26.7 L, MCV 86.7, MCH 26.3 L , MCHC 30.3 L, RDW Std Deviation 45.4 H, RDW Coeff of Vlad 14.6, Plt Count 191, MPV 10.9, Sodium 140, Potassium 4.8, Chloride 102, Carbon Dioxide 35.0 H, Anion Gap 3 L, BUN 41 H, Creatinine 1.68 H, Estim Creat Clear Calc 30.04, Est GFR (MDRD) Af Amer 39 L, Est GFR (MDRD) Non-Af 33 L, BUN/Creatinine Ratio 24.4 H, Glucose 287 H, Calcium 8.8, Troponin I High Sens 28 05/02/23 05:20: Troponin I High Sens 26 05/02/23 06:35: POC Glucose 216 H ABG Data ABG results: ABG 05/01/23 23:09 Specimen Type ART Sample Site R Radial pH 7.42 Bicarbonate Actual 30.9 H Total CO2 32 Base Excess 6 H O2 Saturation 95 O2 % 35.0 ABG pCO2 48.2 H ABG pO2 77 Madi Test Positive O2 Delivery Device BiPAP Vent Mode Not entered Clinical Comments 16. 10. 35% Radiography Diagnostic Testing: Radiology Impression Chest X-Ray 05/01/23 22:53 IMPRESSION: Bilateral interstitial and alveolar opacities especially in the lung bases. Findings may indicate edema or infection. Electronically Signed: Vivek Hong MD at 23:15 EDT Reading Location ID and State: [facility] / [place] Tel , Service support , Chest CTA 05/01/23 23:14 IMPRESSION: 1. Interstitial and alveolar pulmonary edema bilaterally, similar to the previous examination, with a small left pleural effusion. 2. No evidence of pulmonary embolism. Electronically Signed: Vivek Hong MD at 23:54 EDT , Rhythm Strip Rhythm Strip: Sinus Rhythm Rate: 80 Ectopy: None Physical Exam Const alert and no apparent distress HEENT head/scalp atraumatic and moist oral mucous membranes Neck Neck Narrative: +JVD Resp normal respiratory effort, no retractions, no use of accessory muscles and clear to auscultation bilaterally Cardio regular rate, regular rhythm, S1 normal heart sound and S2 normal heart sound GI normal to inspection, nondistended, normoactive bowel sounds Extremity Extremity Narrative: limited empty can test on left. General Extremity: edema bilateral lower extremity Details: mild Assessment & Plan Assessment/Plan (1) Acute hypoxic respiratory failure: PLAN: Per EMS report, pulse ox was in the 80s on 4l/m with reporting struggling to breath. She was started on BiPAP, since weaned down to her 4l/m CTA shows bilateral interstitial and alveolar pulmonary edema bilaterally On IV furosemide Complicated by SACHIN. SACHIN is untreated as she cannot tolerate CPAP/BiPAP. Recommend outpt evaluation with pulm for evaluation for Inspire. (2) (HFpEF) heart failure with preserved ejection fraction: QUALIFIERS: Heart failure chronicity: acute Qualified Code(s): I50.31 - Acute diastolic (congestive) heart failure PLAN: acute EF 65% on echo from 04/15/23 on IV furosemide. troponins negative (3) Hypertensive emergency: PLAN: BP 211/90 on admission Subsequently improved Continued furosemide (4) Chest pain: PLAN: atypical. reproducible. troponins negative. 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 Basal insulin continue. Accu-Chek with correction scale insulin ordered. * Morbid obesity: BMI of 49.3 kg per metered square. Complicates care. * MSSA bacteremia: on linezolid through 05/06. * CKD stage IIIb: Stable. * hypothyroidism on levothyroxine * depression: hold escitalopram while on linezolid. DVT prophylaxis: Subcutaneous Lovenox ordered. Charges/Coding Visit Charges Inpatient E&M: 47217 Subs Hosp L2
[2023-05-02] MEDS: Fenofibrate 48 MG Tablet PO (09:03)
[2023-05-02] MEDS: Linezolid 600 MG Tablet PO ×2 (09:03→22:31)
[2023-05-02] MEDS: 0.9% Saline Lock 10 ML Syringe IV ×2 (09:04→17:54)
[2023-05-02] MEDS: Omega-3 Acid Ethyl Esters 1 GM Capsule PO ×2 (09:04→22:31)
[2023-05-02] MEDS: Nystatin Powder 15gm Bottle 1 APPLIC TOPICAL ×2 (09:04→22:33)
[2023-05-02] MEDS: Escitalopram Oxalate 10 MG Tablet PO (09:04)
[2023-05-02] MEDS: Menthol/Lanolin/Calamine/Znox 113 GM Tube 1 APPLIC TOPICAL ×2 (09:04→22:33)
[2023-05-02] MEDS: Furosemide 40 MG/4 ML Vial IV ×2 (09:04→17:54)
[2023-05-02] MEDS: Pantoprazole Sodium 40 MG Tablet PO (09:04)
[2023-05-02] MEDS: Gabapentin 100 MG Capsule 200 MG PO ×2 (09:09→22:36)
[2023-05-02 12:06] LABS: Bedside Glucose 234 mg/dL (74-106)
--- NOTE | 2023-05-02 12:24 | CASEMGMT ---
Patient is from [facility]. Plan will be for patient to return. However, SW will review therapy notes to make sure AL is the safest d/c plan. Varsha BELTRAN
--- NOTE | 2023-05-02 13:22 | CHAPLAIN ---
Type of Pastoral Visit _x__ Initial Visit ___ Follow-up Visit ___ On-call Visit ___ General Patient Visit ___ Spiritual Assessment ___ Family Conference ___ Bereavement ___ Rapid Response ___ Code Blue ___ Other (describe below) Pastoral Care Referral From _x__ Patient ___ Family ___ Nurse ___ Physician ___ Pot Maker ___ Fbi Profiler ___ Other (describe below) Sacrament/Intervention _x__ Active listening ___ Anointing ___ Orthodoxy ___ Bereavement ___ Communion ___ Tricia exploration ___ ___ Life review _x__ Prayer ___ Reconciliation ___ Sacrament of Sick _x__ Supportive presence ___ Wedding ___ Other (describe below) Pastoral Comments patient states that she returned to hospital after just two days from discharge; pt states that she has no worries and just focuses on getting well; pt presents with attitude of tricia in God and hope for better days; pt answers questions but does not engage in more conversation; however pt does desires prayer for support at this time
--- NOTE | 2023-05-02 15:15 | CASEMGMT ---
Patient said she just received her Healthcare Power of Patternmaker Plaster and Healthcare Living Will. SW reminded patient that [facility] needs a copy of these documents. Varsha BELTRAN
[2023-05-02] MEDS: oxyCODONE 5 MG Tablet PO (16:33)
[2023-05-02 16:56] LABS: Bedside Glucose 218 mg/dL (74-106)
[2023-05-02] MEDS: Acetaminophen 500 MG Tablet 1000 MG PO (22:29)
[2023-05-02] MEDS: Atorvastatin Calcium 10 MG Tablet PO (22:32)
[2023-05-02] MEDS: Insulin Glargine-YFGN 100 UNIT/ML Pen 49 UNIT SC (22:40)
[2023-05-02 23:46] LABS: Bedside Glucose 258 mg/dL (74-106)
[2023-05-03] VITALS (10 sets, daily range): BP systolic 108–152; BP diastolic 51–64; PULSE 70–76; RESP 12–19; TEMP 36.6–37.1; O2SAT 94–98; BMI 47.0
[2023-05-03] MEDS: Levothyroxine 150 MCG Tablet PO (05:27)
[2023-05-03] MEDS: Acetaminophen 500 MG Tablet 1000 MG PO ×3 (05:29→21:49)
[2023-05-03 07:02] LABS: Bedside Glucose 113 mg/dL (74-106)
[2023-05-03 08:42] LABS: Absolute Lymphocyte Count 0.58 X10^3/uL (0.83-4.51); Absolute Neutrophil Count 1.3 X10^3/uL (2.0-7.7); Basophil# 0.01 X10^3/uL; Basophil% 0.4 % (0-1); Eosinophil# 0.09 X10^3/uL; Eosinophils% 3.2 % (0-5); Hematocrit 22.5 % (37-47); Hemoglobin 6.8 g/dL (12.0-15.0); Lymphocyte # 0.58 X10^3/ul (0.83-4.51); Lymphocyte % 20.7 % (19-41); Mean Corp Hgb Conc 30.2 g/dL (32-36); Mean Corpuscular Hgb 26.7 pg (27.0-32.0); Mean Corpuscular Volume 88.2 fL (81-99); Mean Platelet Vol. 11.2 fl (6.2-12.0); Monocyte# 0.75 X10^3/uL; Monocyte% 26.8 % (0-10); NRBC Flagged by Analyzer 0 % (0-5); Neutrophil # 1.26 X10^3/uL (2.7-7.7); POSITIVE DIFFERENTIAL YES; Platelet Count 132 K/mm3 (150-450); RBC Distribution Width CV 15.2 % (11.6-14.6); RBC Distribution Width SD 48.1 fl (35.1-43.9); Red Blood Count 2.55 M/mm3 (4.2-5.4); White Blood Count 2.8 K/mm3 (4.4-11.0)
[2023-05-03 08:53] LABS: Differential Indicated SCAN CRITERIA MET
[2023-05-03 08:56] LABS: Anion Gap 2 (5-15); BUN 40 mg/dL (7-18); BUN/Creat Ratio 17.5 RATIO (10-20); Calcium,Total 8.4 mg/dL (8.5-10.1); Chloride 101 mmol/L (98-107); Creatinine, Serum 2.29 mg/dL (0.55-1.02); EST Glomerular Filtration Rate 23 mL/min (>60); Est Glom Filt Rate - Afr Amer 28 mL/min (>60); Estimated Creatinine Clearance 22.04 ml/min; Glucose 94 mg/dL (74-106); Potassium 4.9 mmol/L (3.5-5.1); Sodium Level 139 mmol/L (136-145)
[2023-05-03 09:43] LABS: Differential Comment SCANNED
--- NOTE | 2023-05-03 09:48 | PN.HOSP_ITS ---
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 Objective Data Objective Data Vital Signs: Vital Signs Temp Pulse Resp BP Pulse Ox O2 Del Method O2 Flow Rate 36.8 C 76 18 126/51 H 96 Nasal Cannula 2 05/03/23 02:51 05/03/23 02:51 05/03/23 02:51 05/03/23 02:51 05/03/23 08:18 05/03/23 08:18 05/03/23 08:18 FiO2 30 05/02/23 01:24 Oxygen Flow Rate (L/min) 2 Oxygen Delivery Method Nasal Cannula Weight: 128.4 kg Body Mass Index (BMI) 47.0 Intake & Output: Intake and Output for Last 24 Hours 05/01/23 05/02/23 05/03/23 23:59 23:59 23:59 Intake Total 300 / 300 Output Total 4300 / 4300 500 / 500 Balance -4000 / -4000 -500 / -500 Lab / Micro Data 05/03/23 08:24 05/03/23 08:24 Labs: Laboratory Results - last 24 hr 05/02/23 11:43: POC Glucose 234 H 05/02/23 16:35: POC Glucose 218 H 05/02/23 22:39: POC Glucose 258 H 05/03/23 06:43: POC Glucose 113 H 05/03/23 08:24: WBC 2.8 L, RBC 2.55 L, Hgb 6.8 L, Hct 22.5 L, MCV 88.2, MCH 26.7 L, MCHC 30.2 L, RDW Std Deviation 48.1 H, RDW Coeff of Vlad 15.2 H, Plt Count 132 L, MPV 11.2, Immature Gran % (Auto) 3.900 H, Neut % (Auto) 45.0 L, Lymph % (Auto) 20.7, [place] % (Auto) 26.8 H, Eos % (Auto) 3.2, Baso % (Auto) 0.4, Absolute Neuts (auto) 1.3 L, Absolute Lymphs (auto) 0.58 L, Nucleated RBC % 0, Differential Comment SCANNED, Diff Path Review May foll, Sodium 139, Potassium 4.9, Chloride 101, Carbon Dioxide 36.0 H, Anion Gap 2 L, BUN 40 H, Creatinine 2.29 H, Estim Creat Clear Calc 22.04, Est GFR (MDRD) Af Amer 28 L, Est GFR (MDRD) Non-Af 23 L, BUN/Creatinine Ratio 17.5, Glucose 94, Calcium 8.4 L Rhythm Strip Rhythm Strip: Sinus Rhythm Rate: 80 Ectopy: None Physical Exam Const alert and no apparent distress HEENT head/scalp atraumatic and moist oral mucous membranes Resp normal respiratory effort and no retractions Resp Narrative: bilateral crackles. Cardio regular rate, regular rhythm, S1 normal heart sound and S2 normal heart sound GI normal to inspection, nondistended, normoactive bowel sounds Extremity normal to inspection General Extremity: edema bilateral lower extremity Details: moderate Neuro Sensorium / Orientation: awake and alert Assessment & Plan Assessment/Plan (1) Acute hypoxic respiratory failure: PLAN: Per EMS report, pulse ox was in the 80s on 4l/m with reporting struggling to breath. She was started on BiPAP, since weaned down to her 4l/m CTA shows bilateral interstitial and alveolar pulmonary edema bilaterally Complicated by SACHIN. SACHIN is untreated as she cannot tolerate CPAP/BiPAP. Recommen d outpt evaluation with pulm/ENT for evaluation for Inspire. Though today patient said she actual did tolerate the BiPAP here, but cannot tolerate her nasal pillows with her CPAP at home. Will use BiPAP QHS. Will DC furosemide given GASTON. (2) (HFpEF) heart failure with preserved ejection fraction: QUALIFIERS: Heart failure chronicity: acute Qualified Code(s): I50.31 - Acute diastolic (congestive) heart failure PLAN: acute EF 65% on echo from 04/15/23 on IV furosemide. troponins negative (3) Hypertensive emergency: PLAN: BP 211/90 on admission Subsequently improved Continued furosemide (4) Chest pain: PLAN: atypical. reproducible. troponins negative. (5) GASTON (acute kidney injury): PLAN: Creatinine jumped from 1.68 to 2.29 Likely due diuresis. Will dc furosemide Hold off on IVF as it may provoke worsening CHF. 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 Basal insulin continue. Accu-Chek with correction scale insulin ordered. * Morbid obesity: BMI of 49.3 kg per metered square. Complicates care. * MSSA bacteremia: on linezolid through 05/06. * CKD stage IIIb: Stable. * hypothyroidism on levothyroxine * depression: hold escitalopram while on linezolid. DVT prophylaxis: Subcutaneous Lovenox ordered. Charges/Coding Visit Charges Inpatient E&M: 66028 Subs Hosp L2
[2023-05-03] MEDS: 0.9% Saline Lock 10 ML Syringe IV ×2 (10:07→21:44)
[2023-05-03] MEDS: Lidocaine 5% Patch 1 PATCH TOPICAL (10:07)
[2023-05-03] MEDS: Furosemide 40 MG/4 ML Vial IV (10:07)
[2023-05-03] MEDS: Gabapentin 100 MG Capsule 200 MG PO ×2 (10:08→21:48)
[2023-05-03] MEDS: Menthol/Lanolin/Calamine/Znox 113 GM Tube 1 APPLIC TOPICAL ×2 (10:08→21:44)
[2023-05-03] MEDS: Escitalopram Oxalate 10 MG Tablet PO (10:09)
[2023-05-03] MEDS: Omega-3 Acid Ethyl Esters 1 GM Capsule PO ×2 (10:09→21:48)
[2023-05-03] MEDS: Nystatin Powder 15gm Bottle 1 APPLIC TOPICAL ×2 (10:09→21:48)
[2023-05-03] MEDS: Linezolid 600 MG Tablet PO ×2 (10:10→21:49)
[2023-05-03] MEDS: Fenofibrate 48 MG Tablet PO (10:10)
[2023-05-03] MEDS: Pantoprazole Sodium 40 MG Tablet PO (10:10)
[2023-05-03 11:35] LABS: Bedside Glucose 132 mg/dL (74-106)
[2023-05-03 14:17] LABS: Hematocrit 24.4 % (37-47); Hemoglobin 7.5 g/dL (12.0-15.0); Mean Corp Hgb Conc 30.7 g/dL (32-36); Mean Corpuscular Hgb 26.8 pg (27.0-32.0); Mean Corpuscular Volume 87.1 fL (81-99); Mean Platelet Vol. 11.3 fl (6.2-12.0); POSITIVE COUNT YES; POSITIVE DIFFERENTIAL YES; POSITIVE MORPHOLOGY YES; Platelet Count 120 K/mm3 (150-450); RBC Distribution Width CV 15.3 % (11.6-14.6); RBC Distribution Width SD 48.7 fl (35.1-43.9)
[2023-05-03 14:31] LABS: Differential Indicated MANUAL DIFF
[2023-05-03 15:07] LABS: Lymphocyte 26 % (19-41); Monocyte 16 % (0-10); Myelocyte 4 % (0-0); Neutrophil-Band 6 % (0-5); Neutrophil-Segmented 48 % (47-70); Platelet Estimate ADEQUATE (ADEQ); Red Cell Morphology NORM C+C NORMAL (NORM C&C); Total Cells Counted 100 (MANUAL DIFF)
[2023-05-03 15:09] LABS: Absolute Lymphocyte Count 0.78 X10^3/uL (0.83-4.51); Absolute Neutrophil Count 1.6 X10^3/uL (2.0-7.7)
[2023-05-03 17:05] LABS: Bedside Glucose 141 mg/dL (74-106)
[2023-05-03] MEDS: oxyCODONE 5 MG Tablet PO (18:21)
[2023-05-03] MEDS: Insulin Lispro 100 UNIT/ML INSULN.PEN SC (21:45)
[2023-05-03] MEDS: Insulin Glargine-YFGN 100 UNIT/ML Pen 49 UNIT SC (21:46)
[2023-05-03] MEDS: Atorvastatin Calcium 10 MG Tablet PO (21:48)
[2023-05-04] VITALS (13 sets, daily range): BP systolic 98–132; BP diastolic 43–67; PULSE 67–88; RESP 12–20; TEMP 36.3–36.9; O2SAT 93–97; BMI 47.0
--- NOTE | 2023-05-04 02:59 | CPS ---
Pt took off bipap after 1am . 3L nasal o2 applied
--- NOTE | 2023-05-04 03:02 | CPS ---
Pt states she has cpap at home, however it uses a nasal mask and pt is a mouth breather we noticed. Not sure of home setting but pt states it maddie her. At hospital is now on bipap with face mask 05/05 and does very well. When taken off bipap and pt falls back to sleep the pulse ox alarm wakes her and takes deep breaths for a few seconds until she falls asleep. Pt definitely needs to wear CPAP machine at home. RT encouraged use of home cpap .
[2023-05-04 04:46] LABS: Bedside Glucose 214 mg/dL (74-106)
--- NOTE | 2023-05-04 05:10 | RAD_ITS ---
INDICATION: cough, chest discomfort, congestion EXAMINATION/TECHNIQUE: X-RAY - XR Chest 1 View AP portable. 5:06 AM COMPARISON: 05/01/2023 FINDINGS: LINES/DEVICES: None. LUNGS: Mild interstitial alveolar infiltrates not significantly changed. No consolidation. No pneumothorax. MEDIASTINUM: Unremarkable. CARDIAC SILHOUETTE: Enlarged. Stable size. BONES AND SOFT TISSUES: No acute abnormalities. RAD/Chest 1 View (Portable) IMPRESSION: No change bilateral infiltrates likely pulmonary edema. Electronically Signed: Lydia Arthur MD at 5:44 EDT ,
[2023-05-04] MEDS: Levothyroxine 150 MCG Tablet PO (05:46)
[2023-05-04] MEDS: Acetaminophen 500 MG Tablet 1000 MG PO ×3 (05:46→21:06)
[2023-05-04] MEDS: guaiFENesin 1,200 MG Tablet 1200 MG PO ×2 (05:46→21:07)
[2023-05-04 06:04] LABS: Absolute Lymphocyte Count 0.67 X10^3/uL (0.83-4.51); Absolute Neutrophil Count 0.8 X10^3/uL (2.0-7.7); Basophil# 0.01 X10^3/uL; Basophil% 0.4 % (0-1); Eosinophil# 0.08 X10^3/uL; Eosinophils% 3.1 % (0-5); Hematocrit 23.1 % (37-47); Hemoglobin 6.9 g/dL (12.0-15.0); Lymphocyte # 0.67 X10^3/ul (0.83-4.51); Mean Corp Hgb Conc 29.9 g/dL (32-36); Mean Corpuscular Hgb 26.3 pg (27.0-32.0); Mean Corpuscular Volume 88.2 fL (81-99); Mean Platelet Vol. 11.5 fl (6.2-12.0); Monocyte# 0.87 X10^3/uL; Monocyte% 33.7 % (0-10); NRBC Flagged by Analyzer 0 % (0-5); Neutrophil # 0.84 X10^3/uL (2.7-7.7); Neutrophil % 32.5 % (47-70); POSITIVE DIFFERENTIAL YES; Platelet Count 102 K/mm3 (150-450); RBC Distribution Width CV 15.5 % (11.6-14.6); RBC Distribution Width SD 48.9 fl (35.1-43.9); Red Blood Count 2.62 M/mm3 (4.2-5.4); White Blood Count 2.6 K/mm3 (4.4-11.0)
[2023-05-04 06:11] LABS: Differential Indicated SCAN CRITERIA MET
[2023-05-04 07:07] LABS: Bedside Glucose 91 mg/dL (74-106)
[2023-05-04 07:08] LABS: Anion Gap 6 (5-15); BUN 43 mg/dL (7-18); BUN/Creat Ratio 17.6 RATIO (10-20); Calcium,Total 8.3 mg/dL (8.5-10.1); Chloride 98 mmol/L (98-107); Creatinine, Serum 2.45 mg/dL (0.55-1.02); EST Glomerular Filtration Rate 21 mL/min (>60); Est Glom Filt Rate - Afr Amer 25 mL/min (>60); Glucose 87 mg/dL (74-106); Potassium 4.8 mmol/L (3.5-5.1); Sodium Level 137 mmol/L (136-145)
[2023-05-04 08:10] LABS: Procalcitonin 0.26 ng/mL (0.00-0.09)
--- NOTE | 2023-05-04 08:28 | PN.HOSP_ITS ---
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 Was able to tolerate BIPAP for a short period. Objective Data Objective Data Vital Signs: Vital Signs Temp Pulse Resp BP Pulse Ox O2 Del Method O2 Flow Rate 36.8 C 77 20 H 130/59 H 97 Room Air 4 05/04/23 04:40 05/04/23 04:40 05/04/23 04:40 05/04/23 04:40 05/04/23 04:40 05/04/23 04:42 05/04/23 04:42 FiO2 30 05/04/23 01:25 Oxygen Flow Rate (L/min) 4 Oxygen Delivery Method Room Air Weight: 128.367 kg Body Mass Index (BMI) 47.0 Intake & Output: Intake and Output for Last 24 Hours 05/02/23 05/03/23 05/04/23 23:59 23:59 23:59 Intake Total 300 / 300 120 / 120 120 / 120 Output Total 4300 / 4300 2049 / 2049 400 / 400 Balance -4000 / -4000 -1930 / -1930 -280 / -280 Lab / Micro Data 05/04/23 05:49 05/04/23 05:49 Labs: Laboratory Results - last 24 hr 05/03/23 08:24: WBC 2.8 L, RBC 2.55 L, Hgb 6.8 L, Hct 22.5 L, MCV 88.2, MCH 26.7 L, MCHC 30.2 L, RDW Std Deviation 48.1 H, RDW Coeff of Vlad 15.2 H, Plt Count 132 L, MPV 11.2, Immature Gran % (Auto) 3.900 H, Neut % (Auto) 45.0 L, Lymph % (Auto) 20.7, [place] % (Auto) 26.8 H, Eos % (Auto) 3.2, Baso % (Auto) 0.4, Absolute Neuts (auto) 1.3 L, Absolute Lymphs (auto) 0.58 L, Nucleated RBC % 0, Differential Comment SCANNED, Diff Path Review November patrick, Sodium 139, Potassium 4.9, Chloride 101, Carbon Dioxide 36.0 H, Anion Gap 2 L, BUN 40 H, Creatinine 2.29 H, Estim Creat Clear Calc 22.04, Est GFR (MDRD) Af Amer 28 L, Est GFR (M DRD) Non-Af 23 L, BUN/Creatinine Ratio 17.5, Glucose 94, Calcium 8.4 L 05/03/23 11:11: POC Glucose 132 H 05/03/23 14:06: WBC 3.0 L, RBC 2.80 L, Hgb 7.5 L, Hct 24.4 L, MCV 87.1, MCH 26.8 L, MCHC 30.7 L, RDW Std Deviation 48.7 H, RDW Coeff of Vlad 15.3 H, Plt Count 120 L, MPV 11.3, Neut % (Auto) Not Reportable, Absolute Neuts (auto) 1.6 L, Absolute Lymphs (auto) 0.78 L, Total Counted 100, Neutrophils % (Manual) 48, Band Neutrophils % 6 H, Lymphocytes % (Manual) 26, Monocytes % (Manual) 16 H, Myelocytes % 4 H, Diff Path Review November patrick, Platelet Estimate ADEQUATE, RBC Morphology NORM C+C 05/03/23 16:40: POC Glucose 141 H 05/03/23 21:43: POC Glucose 214 H 05/04/23 05:49: WBC 2.6 L, RBC 2.62 L, Hgb 6.9 L, Hct 23.1 L, MCV 88.2, MCH 26.3 L, MCHC 29.9 L, RDW Std Deviation 48.9 H, RDW Coeff of Vlad 15.5 H, Plt Count 102 L, MPV 11.5, Immature Gran % (Auto) 4.300 H, Neut % (Auto) 32.5 L, Lymph % (Auto) 26.0, [place] % (Auto) 33.7 H, Eos % (Auto) 3.1, Baso % (Auto) 0.4, Absolute Neuts (auto) 0.8 L, Absolute Lymphs (auto) 0.67 L, Nucleated RBC % 0, Sodium 137, Potassium 4.8, Chloride 98, Carbon Dioxide 33.0 H, Anion Gap 6, BUN 43 H, Creatinine 2.45 H, Estim Creat Clear Calc 20.60, Est GFR (MDRD) Af Amer 25 L, Est GFR (MDRD) Non-Af 21 L, BUN/Creatinine Ratio 17.6, Glucose 87, Calcium 8.3 L , Procalcitonin 0.26 H 05/04/23 06:49: POC Glucose 91 Radiography Diagnostic Testing: Radiology Impression Chest X-Ray 05/04/23 05:10 IMPRESSION: No change bilateral infiltrates likely pulmonary edema. Electronically Signed: Lydia Arthur MD at 5:44 EDT , Rhythm Strip Rhythm Strip: Sinus Rhythm Rate: 80 Ectopy: None Physical Exam Const alert and no apparent distress HEENT head/scalp atraumatic and moist oral mucous membranes Resp normal respiratory effort, no retractions, no use of accessory muscles and clear to auscultation bilaterally Cardio regular rate, regular rhythm, S1 normal heart sound and S2 normal heart sound GI normal to inspection, nondistended, normoactive bowel sounds, soft to palpation, non-tender and non-distended Extremity normal to inspection Assessment & Plan Assessment/Plan (1) Acute hypoxic respiratory failure: PLAN: Per EMS report, pulse ox was in the 80s on 4l/m with reporting struggling to breath. She was started on BiPAP, since weaned down to her 4l/m CTA shows bilateral interstitial and alveolar pulmonary edema bilaterally Complicated by SACHIN. SACHIN is untreated as she cannot tolerate CPAP/BiPAP. Recommend outpt evaluation with pulm/ENT for evaluation for Inspire. Though today patient said she actual did tolerate the BiPAP here, but cannot tolerate her nasal pillows with her CPAP at home. Will use BiPAP QHS. Will DC furosemide given GASTON. (2) (HFpEF) heart failure with preserved ejection fraction: QUALIFIERS: Heart failure chronicity: acute Qualified Code(s): I50.31 - Acute diastolic (congestive) heart failure PLAN: acute EF 65% on echo from 04/15/23 on IV furosemide. troponins negative (3) Hypertensive emergency: PLAN: BP 211/90 on admission Subsequently improved Continued furosemide (4) Chest pain: PLAN: atypical. reproducible. troponins negative. (5) GASTON (acute kidney injury): PLAN: Acute on chronic kidney disease. Baseline creatinine is around 1.5. Creatinine jumped from 1.68 to 2.29 to now 2.45 Suspect multifactorial from diuresis, and contrast nephropathy. Will dc furosemide Hold off on IVF as it may provoke worsening CHF. Check urine studies, check kidney ultrasound (6) Anemia: PLAN: Chronically anemic, however has slowly trended down. Today, her Hg is 6.9. Will transfuse 1 unit PRBCs. Iron 30, Ferritin 195, Folate 12 B12 pending TSH elevated, will check FT4. Will start ferrous sulfate. 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 Basal insulin continue. Accu-Chek with correction scale insulin ordered. * Morbid obesity: BMI of 49.3 kg per metered square. Complicates care. * MSSA bacteremia: on linezolid through 05/06. * hypothyroidism on levothyroxine * depression: hold escitalopram while on linezolid. DVT prophylaxis: Subcutaneous Lovenox ordered.
[2023-05-04] MEDS: Nystatin Powder 15gm Bottle 1 APPLIC TOPICAL ×2 (09:08→21:11)
[2023-05-04] MEDS: Menthol/Lanolin/Calamine/Znox 113 GM Tube 1 APPLIC TOPICAL ×2 (09:08→21:12)
[2023-05-04] MEDS: Lidocaine 5% Patch 1 PATCH TOPICAL (09:09)
[2023-05-04] MEDS: Gabapentin 100 MG Capsule 200 MG PO ×2 (09:09→21:07)
[2023-05-04] MEDS: Escitalopram Oxalate 10 MG Tablet PO (09:09)
[2023-05-04] MEDS: Fenofibrate 48 MG Tablet PO (09:09)
[2023-05-04] MEDS: Omega-3 Acid Ethyl Esters 1 GM Capsule PO ×2 (09:09→21:07)
[2023-05-04] MEDS: Pantoprazole Sodium 40 MG Tablet PO (09:09)
[2023-05-04] MEDS: Linezolid 600 MG Tablet PO ×2 (09:10→21:07)
[2023-05-04 09:55] LABS: Ferritin 195 ng/mL (8-252); Iron 34 ug/dL (50-170); Iron Binding Capacity,Total 251 ug/dL (250-450); PERCENT IRON SATURATION 13.5 % (15.0-55.0)
[2023-05-04 10:51] LABS: Differential Comment SCANNED
[2023-05-04 11:47] LABS: Bedside Glucose 106 mg/dL (74-106)
[2023-05-04] MEDS: 0.9% Saline Lock 10 ML Syringe IV (12:42)
--- NOTE | 2023-05-04 12:46 | US_ITS ---
STUDY: RENAL ULTRASOUND - COMPLETE REASON FOR EXAM: Female, 63 years old. GASTON TECHNIQUE: Ultrasound evaluation of the kidneys was performed with real-time and static collier-scale imaging. COMPARISON: CTA chest with contrast 05/01/2023. No prior CT abdomen for comparison. No prior renal ultrasounds for comparison. FINDINGS: RIGHT KIDNEY: Normal location of the right kidney, which is normal in size. The right kidney measures 11.4 x 4.9 x 4.7 cm. There is a normal cortex of the right kidney. The renal cortex measures 1.6 cm. There is no right renal mass or cyst. There are no right renal calculi. There is no right hydronephrosis. DISTAL RIGHT URETER: There is non-visualization of the distal right ureter. There is no demonstrated right ureterovesical junction calculus. There is nonvisualization of the right ureteral jet. LEFT KIDNEY: Normal location of the left kidney, which is normal in size. The left kidney measures 12.3 x 5.0 x 4.9 cm. There is a normal cortex of the left kidney. The renal cortex measures 1.7 cm. There is no left renal mass or cyst. There are no left renal calculi. There is no left hydronephrosis. DISTAL LEFT URETER: There is non-visualization of the distal left ureter. There is no demonstrated left ureterovesical junction calculus. There is nonvisualization of the left ureteral jet. BLADDER: Not visualized. US/Kidney and Bladder IMPRESSION: 1. Normal ultrasound of the kidneys. 2. Nonvisualization of the urinary bladder. This is presumably empty bladder. Electronically Signed: Edgardo Garcia MD at 14:53 EDT ,
[2023-05-04 17:22] LABS: Bedside Glucose 121 mg/dL (74-106)
[2023-05-04] MEDS: Atorvastatin Calcium 10 MG Tablet PO (21:07)
[2023-05-04] MEDS: Insulin Glargine-YFGN 100 UNIT/ML Pen 49 UNIT SC (21:07)
[2023-05-04] MEDS: Insulin Lispro 100 UNIT/ML INSULN.PEN SC (21:07)
[2023-05-04 21:22] LABS: Mucous, Urine 0 SEEN /hpf (<or=2+)
[2023-05-04 21:27] LABS: Color, Urine Yellow (Yellow); Glucose, Dipstick Normal (Normal); Ketone-Dipstick Negative (Negative); Leukocyte Esterase-Dipstick 25 /ul (Negative); Nitrite-Dipstick Positive (Negative); Occult Blood-Urine 25 /ul (Negative); Protein-Dipstick 500 mg/dl (Negative); Urine Bilirubin Dipstick Negative (Negative); Urine Clarity Clear (Clear); Urine Urobilinogen Normal (Normal)
[2023-05-04 21:36] LABS: Urea Nitrogen, Urine 538 mg/dL (NO RANGE EST.)
[2023-05-04 21:38] LABS: Bacteria RARE /hpf (None Seen); Red Blood Cells-Urine 0-5 SEEN /hpf (0-5); Squamous Epithelial Cells - UA 0-5 SEEN /hpf (5-10); White Blood Cells 0-5 SEEN /hpf (0-5)
[2023-05-04 21:39] LABS: Amorphous Sediment 1+ PHOS
[2023-05-04 22:36] LABS: Bedside Glucose 152 mg/dL (74-106)
[2023-05-04] MEDS: oxyCODONE 5 MG Tablet PO (23:54)
[2023-05-04] MEDS: MELATONIN 3 MG TABLET PO (23:54)
[2023-05-05] VITALS (9 sets, daily range): BP systolic 97–132; BP diastolic 49–71; PULSE 62–70; RESP 12–18; TEMP 36.3–36.6; O2SAT 93–98; BMI 46.7
[2023-05-05] MEDS: Levothyroxine 150 MCG Tablet PO (05:46)
[2023-05-05] MEDS: Acetaminophen 500 MG Tablet 1000 MG PO ×3 (05:47→23:57)
[2023-05-05 06:01] LABS: Absolute Lymphocyte Count 0.79 X10^3/uL (0.83-4.51); Absolute Neutrophil Count 0.5 X10^3/uL (2.0-7.7); Basophil# 0.02 X10^3/uL; Basophil% 0.9 % (0-1); Eosinophil# 0.09 X10^3/uL; Eosinophils% 3.8 % (0-5); Hematocrit 25.1 % (37-47); Hemoglobin 7.5 g/dL (12.0-15.0); Lymphocyte # 0.79 X10^3/ul (0.83-4.51); Lymphocyte % 33.8 % (19-41); Mean Corp Hgb Conc 29.9 g/dL (32-36); Mean Corpuscular Hgb 27.3 pg (27.0-32.0); Mean Corpuscular Volume 91.3 fL (81-99); Mean Platelet Vol. 12.3 fl (6.2-12.0); Monocyte# 0.82 X10^3/uL; NRBC Flagged by Analyzer 0 % (0-5); Neutrophil # 0.53 X10^3/uL (2.7-7.7); Neutrophil % 22.7 % (47-70); POSITIVE COUNT YES; POSITIVE DIFFERENTIAL YES; Platelet Count 72 K/mm3 (150-450); RBC Distribution Width CV 15.8 % (11.6-14.6); RBC Distribution Width SD 51.8 fl (35.1-43.9); Red Blood Count 2.75 M/mm3 (4.2-5.4); White Blood Count 2.3 K/mm3 (4.4-11.0)
[2023-05-05 06:04] LABS: Differential Indicated SCAN CRITERIA MET
[2023-05-05 06:30] LABS: Bedside Glucose 58 mg/dL (74-106)
[2023-05-05 06:39] LABS: Anisocytosis 1+; Platelet Estimate MOD DEC (ADEQ)
[2023-05-05 06:43] LABS: Anion Gap 4 (5-15); BUN 49 mg/dL (7-18); BUN/Creat Ratio 19.2 RATIO (10-20); Chloride 102 mmol/L (98-107); Creatinine, Serum 2.55 mg/dL (0.55-1.02); EST Glomerular Filtration Rate 20 mL/min (>60); Est Glom Filt Rate - Afr Amer 24 mL/min (>60); Estimated Creatinine Clearance 19.79 ml/min; Glucose 61 mg/dL (74-106); Potassium 4.6 mmol/L (3.5-5.1); Sodium Level 138 mmol/L (136-145); T4 Free Direct 0.85 ng/dL (0.76-1.46)
[2023-05-05] MEDS: Lidocaine 5% Patch 1 PATCH TOPICAL (07:50)
[2023-05-05] MEDS: guaiFENesin 1,200 MG Tablet 1200 MG PO ×2 (07:50→21:30)
[2023-05-05] MEDS: Escitalopram Oxalate 10 MG Tablet PO (07:50)
[2023-05-05] MEDS: Omega-3 Acid Ethyl Esters 1 GM Capsule PO ×2 (07:50→21:28)
[2023-05-05] MEDS: Pantoprazole Sodium 40 MG Tablet PO (07:51)
[2023-05-05] MEDS: Fenofibrate 48 MG Tablet PO (07:51)
[2023-05-05] MEDS: Linezolid 600 MG Tablet PO ×2 (07:51→21:29)
[2023-05-05] MEDS: Gabapentin 100 MG Capsule 200 MG PO ×2 (07:54→21:36)
[2023-05-05 08:24] LABS: Vitamin B12 399 pg/mL (211-911)
--- NOTE | 2023-05-05 09:24 | CASEMGMT ---
WES spoke with patient and asked if she feels she is okay to return to assisted living. Patient said she thinks she should be okay. SW told patient that the physician is going to discharge her today. Patient thinks she is okay to return to [facility]. Varsha BELTRAN
--- NOTE | 2023-05-05 09:30 | CASEMGMT ---
Discharge Planning Updates faxed to [facility]. Louise King, Discharge Planning Asst.
[2023-05-05] MEDS: Nystatin Powder 15gm Bottle 1 APPLIC TOPICAL ×2 (11:24→21:30)
[2023-05-05] MEDS: Menthol/Lanolin/Calamine/Znox 113 GM Tube 1 APPLIC TOPICAL ×2 (11:24→21:34)
[2023-05-05 11:41] LABS: Bedside Glucose 111 mg/dL (74-106)
--- NOTE | 2023-05-05 13:33 | PN_ITS ---
Subjective Subjective Patient seen and examined. She had no active complaints. She felt her breathing had improved. She denied any chest pain, palpitations, dizziness, nauea, vomiting or any other symptoms. Review of systems is otherwise negative. Objective Data Objective Data Vital Signs: Vital Signs Temp Pulse Resp BP Pulse Ox O2 Del Method O2 Flow Rate 97.7 F L 62 18 106/56 L 96 Nasal Cannula 3 05/05/23 07:45 05/05/23 07:45 05/05/23 07:45 05/05/23 07:45 05/05/23 07:45 05/05/23 08:05 05/05/23 08:05 FiO2 30 05/05/23 00:05 Oxygen Flow Rate (L/min) 3 Oxygen Delivery Method Nasal Cannula Weight: 281 lb 1.43 oz Body Mass Index (BMI) 46.7 Intake & Output: Intake and Output for Last 24 Hours 05/03/23 05/04/23 05/05/23 23:59 23:59 23:59 Intake Total 120 / 120 520 / 520 690 / 690 Output Total 2049 / 2049 401 / 401 875 / 875 Balance -1930 / -1930 119 / 119 -185 / -185 Lab / Micro Data 05/05/23 05:23 05/05/23 05:23 Labs: Laboratory Results - last 24 hr 05/04/23 09:03: Vitamin B12 399, Crossmatch See Detail 05/04/23 16:47: POC Glucose 121 H 05/04/23 20:15: Urine Color Yellow, Urine Clarity Clear, Urine pH 7.0, Ur Specific [place] 1.010, Urine Protein 500 H, Urine Glucose (UA) Normal, Urine Ketones Negative, Urine Occult Blood 25 H, Urine Nitrite Positive H, Urine Bi lirubin Negative, Urine Urobilinogen Normal, Ur Leukocyte Esterase 25 H, Urine RBC 0-5 SEEN, Urine WBC 0-5 SEEN, Ur Squamous Epith Cells 0-5 SEEN, Amorphous Sediment 1+ PHOS, Urine Bacteria RARE, Urine Mucus 0 SEEN, Urine Creatinine 82.50, Urine Urea Nitrogen 538 05/04/23 21:04: POC Glucose 152 H 05/05/23 05:23: WBC 2.3 L, RBC 2.75 L, Hgb 7.5 L, Hct 25.1 L, MCV 91.3, MCH 27.3, MCHC 29.9 L, RDW Std Deviation 51.8 H, RDW Coeff of Vlad 15.8 H, Plt Count 72 L, MPV 12.3 H, Immature Gran % (Auto) 3.800 H, Neut % (Auto) 22.7 L, Lymph % (Auto) 33.8, [place] % (Auto) 35.0 H, Eos % (Auto) 3.8, Baso % (Auto) 0.9, Absolute Neuts (auto) 0.5 L, Absolute Lymphs (auto) 0.79 L, Nucleated RBC % 0, Platelet Estimate MOD DEC, Anisocytosis 1+, Sodium 138, Potassium 4.6, Chloride 102, Carbon Dioxide 32.0, Anion Gap 4 L, BUN 49 H, Creatinine 2.55 H, Estim Creat Clear Calc 19.79, Est GFR (MDRD) Af Amer 24 L, Est GFR (MDRD) Non-Af 20 L, BUN/Creatinine Ratio 19.2, Glucose 61 L, Calcium 8.0 L, Free T4 0.85 05/05/23 05:45: POC Glucose 58 L 05/05/23 11:23: POC Glucose 111 H Micro: Microbiology 05/04/23 17:00 Stool Stool Occult Blood (KEIKO) - Final Occult Blood Positive Rhythm Strip Rhythm Strip: Sinus Rhythm Rate: 80 Ectopy: None Physical Exam Const alert, oriented x3 and no apparent distress General Appearance: cooperative and well developed HEENT normocephalic, head/scalp atraumatic and moist oral mucous membranes Eyes PERRL and EOMs intact bilaterally Neck no lymphadenopathy, supple and no JVD Lymph Lymphatic: no lymphadenopathy noted and no lymphedema noted Resp Resp Narrative: mildly diminished breath sounds bibasally, no wheezes or crackles. on 3L of oxygen by nasal canula Cardio regular rate, regular rhythm, S1 normal heart sound, S2 normal heart sound and no murmurs GI normal to inspection, nondistended, normoactive bowel sounds, soft to palpation, non-tender and non-distended Extremity normal capillary refill, no clubbing, cyanosis or edema and no calf tenderness Skin General Skin Exam: no breakdown Neuro CN's II-XII intact bilaterally, no focal motor deficits, no sensory deficits noted and deep tendon reflexes 2+ bilaterally Motor Exam: strength 5/5 throughout and general weakness Psych thought process normal and cooperative Appearance: appropriate Assessment & Plan Assessment/Plan (1) Chest pain: PLAN: Plan #Acute hypoxic respiratory failure due o acuge exacerbation of HFpEF * being diuresed with IV lasix * on 3L of oxygen by nasal canula * breathing treatment with bronchodilators * titrate oxygen to maintain sats >90% * lasix on hold due to GASTON * #Hypertensive emergency: lasix on hold due to GASTON. Otherwise resolved #Anemia: stable. Hb is 7.5. #TYpe 2 diabetes mellitus with neuropathy and nephropathy: * On basal insulin 49 units qhs. * Insulin Sliding scale. Checks ACHS. #GASTON on CKD 3: * Cr is 2.55, with a base of ~ 1.5. lasix on hold. * Will monitor, and consult nephrology if it trends further upwards. * check FeUrea * #MSSA bacteremia: On linezolid with stop date of 1016. #Hypothyroidism: On Synthroid. TSH is 15.9 #Depression: On escitalopram which is currently on hold as she is on linezolid. DVT prophylaxis: SCDs Charges/Coding Visit Charges Inpatient E&M: 65783 Subs Hosp L3
[2023-05-05] MEDS: Insulin Glargine-YFGN 100 UNIT/ML Pen 49 UNIT SC (21:28)
[2023-05-05] MEDS: Atorvastatin Calcium 10 MG Tablet PO (21:29)
[2023-05-05 22:50] LABS: Bedside Glucose 153 mg/dL (74-106)
[2023-05-06] VITALS (8 sets, daily range): BP systolic 107–132; BP diastolic 50–58; PULSE 62–77; RESP 12–21; TEMP 36–37.2; O2SAT 93–98; BMI 47.3
[2023-05-06 01:58] LABS: Bedside Glucose 109 mg/dL (74-106)
[2023-05-06 05:55] LABS: Absolute Lymphocyte Count 0.55 X10^3/uL (0.83-4.51); Absolute Neutrophil Count 0.8 X10^3/uL (2.0-7.7); Eosinophils% 4.9 % (0-5); Hematocrit 24.8 % (37-47); Hemoglobin 7.6 g/dL (12.0-15.0); Lymphocyte # 0.55 X10^3/ul (0.83-4.51); Lymphocyte % 27.1 % (19-41); Mean Corp Hgb Conc 30.6 g/dL (32-36); Mean Corpuscular Hgb 27.2 pg (27.0-32.0); Mean Corpuscular Volume 88.9 fL (81-99); Mean Platelet Vol. 12.2 fl (6.2-12.0); Monocyte# 0.53 X10^3/uL; Monocyte% 26.1 % (0-10); NRBC Flagged by Analyzer 0 % (0-5); Neutrophil # 0.82 X10^3/uL (2.7-7.7); Neutrophil % 40.4 % (47-70); POSITIVE COUNT YES; POSITIVE DIFFERENTIAL YES; Platelet Count 75 K/mm3 (150-450); RBC Distribution Width CV 15.9 % (11.6-14.6); RBC Distribution Width SD 51.7 fl (35.1-43.9); Red Blood Count 2.79 M/mm3 (4.2-5.4)
[2023-05-06 05:57] LABS: Differential Indicated SCAN CRITERIA MET
[2023-05-06] MEDS: Levothyroxine 150 MCG Tablet PO (06:15)
[2023-05-06] MEDS: Acetaminophen 500 MG Tablet 1000 MG PO ×3 (06:16→22:06)
[2023-05-06 06:21] LABS: Anion Gap 3 (5-15); BUN 45 mg/dL (7-18); BUN/Creat Ratio 19.1 RATIO (10-20); Calcium,Total 7.9 mg/dL (8.5-10.1); Chloride 102 mmol/L (98-107); Creatinine, Serum 2.36 mg/dL (0.55-1.02); EST Glomerular Filtration Rate 22 mL/min (>60); Est Glom Filt Rate - Afr Amer 27 mL/min (>60); Estimated Creatinine Clearance 21.39 ml/min; Glucose 134 mg/dL (74-106); Potassium 4.4 mmol/L (3.5-5.1); Sodium Level 137 mmol/L (136-145)
[2023-05-06 06:31] LABS: Anisocytosis 1+; Platelet Estimate MOD DEC (ADEQ)
[2023-05-06 06:32] LABS: Hypochromasia 1+
[2023-05-06 06:47] LABS: Bedside Glucose 115 mg/dL (74-106)
--- NOTE | 2023-05-06 08:42 | EX.PCM.CON.G ---
HPI Consult Data Date of Consult: 05/06/23 HPI Narrative Reason for Consultation: Anemia HPI Narrative: TOBIN BIGGS, is a 63 F who presented to the ED with shortness of breath. Past medical history is significant for hypertension, hypothyroidism on Synthroid; diabetes mellitus, and obstructive sleep apnea (does not use her CPAP because she feels uncomfortable using it) who was recently admitted at [facility] [place] and admitted at [facility] [place] from 04/19/2023 to 04/25/2023 presenting to the ED by paramedics with shortness of breath that started on the same day of presentation. Patient was last discharged to assisted nursing facility on oxygen of 4 L. On this presentation on the oxygen 4 L her oxygen saturation by paramedics was 87 to 88%. On arrival to emergency department patient was placed on BiPAP. Also patient reports of left shoulder pain that restarted on the same day of presentation. She reported when she was at hospital she had this same left shoulder pain. She reports mild nonproductive cough. She denies any other symptoms. She has gained weight or not. She does not know whether she has had any increased swelling. She was started on BiPAP, since weaned down to her 4l/m CTA shows bilateral interstitial and alveolar pulmonary edema bilaterally Complicated by SACHIN. SACHIN is untreated as she cannot tolerate CPAP/BiPAP. I was called to see her because throughout her stay in the hospital her hemoglobin has been slowly decreasing. She does take a baby aspirin but does not take the blood thinners. She also has been taking prednisone for acute shortness of breath and exacerbation of COPD. [facility] Medical History Anxiety and depression Chronic acquired lymphedema Chronic anemia CKD (chronic kidney disease), stage III Diabetes mellitus, type 2 HLD (hyperlipidemia) HTN (hypertension) Hypothyroidism Hypoxia Morbid obesity SACHIN (obstructive sleep apnea) Retinal hemorrhage Home Medications atorvastatin 10 mg tablet 10 mg PO DAILY cholesterol 09/24/22 [History Last Taken 04/13/23] escitalopram oxalate 10 mg tablet 10 mg PO DAILY anxiety 09/24/22 [History Last Taken 04/13/23] fenofibrate nanocrystallized 48 mg tablet (Tricor) 48 mg PO DAILY cholesterol 09/24/22 [History Last Taken 04/13/23] pantoprazole 40 mg tablet,delayed release 40 mg PO DAILY HEARTBURN 09/24/22 [History Last Taken 11/15/22] levofloxacin 750 mg tablet 750 mg PO DAILY SEE PCP #7 tabs 11/18/22 [Rx Last Taken Unknown] aspirin 81 mg tablet,delayed release (Adult Low Dose Aspirin) 81 mg PO DAILY cardiac 03/05/23 [History Last Taken 05/01/23] furosemide 20 mg tablet (Lasix) 20 mg PO DAILY EDEMA 03/05/23 [History Last Taken 04/13/23] gabapentin 100 mg capsule 200 mg PO BID PAIN 03/05/23 [History Last Taken 04/13/23] glipizide 10 mg tablet 10 mg PO BID dm2 03/05/23 [History Last Taken 05/02/23] levothyroxine 150 mcg tablet 150 mcg PO DAILY@0600 SEE PCP 03/05/23 [History Last Taken Unknown] metformin 1,000 mg tablet 1,000 mg PO BID dm2 03/05/23 [History Last Taken 05/01/23] ropinirole 4 mg tablet 4 mg PO QHS restless legs 03/05/23 [History Last Taken 05/01/23] sitagliptin phosphate 100 mg tablet (Januvia) 100 mg PO DAILY DM2 03/05/23 [History Last Taken Unknown] triamcinolone acetonide 0.1 % topical cream 1 applic topical TID rash 03/05/23 [History Last Taken Unknown] dulaglutide 0.75 mg/0.5 mL subcutaneous pen injector (Trulicity) 0.75 mg subcut .once a week dm2 04/14/23 [History Last Taken 04/25/23] fluconazole 100 mg tablet 150 mg PO QWEEK SEE PCP 04/14/23 [History Last Taken Unknown] gabapentin 400 mg capsule 400 mg PO QHS SEE PCP 04/14/23 [History Last Taken 04/13/23] insulin glargine 100 unit/mL (3 mL) subcutaneous pen (Lantus Solostar U-100 Insulin) 49 unit subcut QHS SEE PCP 04/14/23 [History Last Taken Unknown] insulin lispro 100 unit/mL subcutaneous pen 1 sliding scale dose subcut TIDCM SEE PCP 04/14/23 [History Last Taken Unknown] metoclopramide HCl 5 mg tablet 5 mg PO BID SEE PCP 04/14/23 [History Last Taken Unknown] omega 6-cyf-kik-fish oil 300 mg-1,000 mg capsule (Fish Oil) 1 cap PO BID VITAMIN 04/14/23 [History Last Taken 04/13/23] pen needle, diabetic 31 gauge x 1/4 (Easy Touch) 04/14/23 [History Last Taken Unknown] potassium chloride 10 mEq capsule,extended release 10 meq PO DAILY SEE PCP 04/14/23 [History Last Taken 05/01/23] artifi.tears(hypromellose)(PF) 0.3 % eye drops 1 drp EACH EYE Q2H PRN retinal hemmorage 04/15/23 [History Last Taken Unknown] linezolid 600 mg tablet (Zyvox) 600 mg PO BID #21 tabs 04/25/23 [Rx Last Taken Unknown] prednisone 10 mg tablet 20 mg PO DAILY SOB 05/02/23 [History Last Taken 05/01/23] Allergy/AdvReac Type Severity Reaction Status Date / Time No Known Allergies Allergy Verified 04/14/23 16:28 Family History Mother Heart disease Hypertension Diabetes Father Prostate cancer Surgical History H/O cataract removal with insertion of prosthetic lens History of cholecystectomy History of surgery on lower extremity Social History housing: half-way Smoking Status: Never smoker alcohol intake: never substance use type: does not use ROS ROS Narrative Pertinent positives and pertinent negatives as noted in HPI. All other systems were reviewed and are negative or patient did not know. Physical Exam Const alert, oriented x3 and no apparent distress General Appearance: cooperative and well developed HEENT normocephalic, head/scalp atraumatic and moist oral mucous membranes Eyes PERRL and EOMs intact bilaterally Neck no lymphadenopathy, supple and no JVD Lymph Lymphatic: no lymphadenopathy noted and no lymphedema noted Resp normal respiratory effort, no retractions, no use of accessory muscles and clear to auscultation bilaterally Resp Narrative: mildly diminished breath sounds bibasally, no wheezes or crackles. on 2 L of oxygen by nasal canula Cardio regular rate, regular rhythm, S1 normal heart sound, S2 normal heart sound and no murmurs GI normal to inspection, nondistended, normoactive bowel sounds, soft to palpation, non-tender and non-distended Extremity normal to inspection, normal capillary refill, no clubbing, cyanosis or edema and no calf tenderness General Extremity: edema bilateral lower extremity Details: moderate Skin General Skin Exam: no breakdown Neuro CN's II-XII intact bilaterally, no focal motor deficits, no sensory deficits noted and deep tendon reflexes 2+ bilaterally Sensorium / Orientation: awake and alert Motor Exam: strength 5/5 throughout and general weakness Psych thought process normal and cooperative Appearance: appropriate Lab / Micro Data 05/07/23 05:50 05/07/23 05:50 Labs: Laboratory Results - last 24 hr 05/03/23 08:24: Diff Path Review Reviewed 05/03/23 14:06: Diff Path Review Reviewed 05/06/23 11:28: POC Glucose 47 L 05/06/23 11:29: POC Glucose 52 L 05/06/23 11:40: Glucose 55 L 05/06/23 12:23: POC Glucose 187 H 05/06/23 15:36: POC Glucose 68 L 05/06/23 16:17: POC Glucose 159 H 05/06/23 22:03: POC Glucose 80 05/07/23 05:50: WBC 2.0 L, RBC 2.82 L, Hgb 7.7 L, Hct 25.8 L, MCV 91.5, MCH 27.3, MCHC 29.8 L, RDW Std Deviation 52.8 H, RDW Coeff of Vlad 15.9 H, Plt Count 76 L, MPV 11.5, Immature Gran % (Auto) 1.500 H, Neut % (Auto) 26.4 L, Lymph % (Auto) 44.9 H, [place] % (Auto) 22.2 H, Eos % (Auto) 4.5, Baso % (Auto) 0.5, Absolute Neuts (auto) 0.5 L, Absolute Lymphs (auto) 0.89, Nucleated RBC % 0, Platelet Estimate MOD DEC, Hypochromasia 1+, Anisocytosis 1+, Sodium 141, Potassium 4.0, Chloride 105, Carbon Dioxide 31.0, Anion Gap 5, BUN 42 H, Creatinine 2.29 H, Estim Creat Clear Calc 22.04, Est GFR (MDRD) Af Amer 28 L, Est GFR (MDRD) Non-Af 23 L, BUN/Creatinine Ratio 18.3, Glucose 105, Calcium 8.3 L 05/07/23 06:26: POC Glucose 91 Rhythm Strip Rhythm Strip: Sinus Rhythm Rate: 80 Ectopy: None Assessment & Plan Assessment/Plan (1) Acute hypoxic respiratory failure: (2) History of diabetes mellitus: (3) Diabetes mellitus with diabetic polyneuropathy: QUALIFIERS: Diabetes mellitus type: type 2 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 This may indicate edema or infection. She is being seen by pulmonary. Improved with BiPAP. Continue home blood pressure medication. Pancytopenia from unknown cause. She is also has a mixed iron deficiency anemia along with anemia chronic disease. She will undergo an upper endoscopy to evaluate the GI tract due to risk factors for GI blood loss upper GI tract due to aspirin and prednisone. She was explained alternatives, risk, benefits include not withstanding bleeding, infection, sepsis, perforation, need for emergent and . She have an ASA of 3. Charges/Coding Visit Charges Inpatient E&M: 05656 Init Hosp L3
[2023-05-06] MEDS: Pantoprazole Sodium 40 MG Tablet PO (09:23)
[2023-05-06] MEDS: Omega-3 Acid Ethyl Esters 1 GM Capsule PO ×2 (09:23→22:08)
[2023-05-06] MEDS: Ferrous Sulfate 325 MG Tablet PO (09:23)
[2023-05-06] MEDS: Escitalopram Oxalate 10 MG Tablet PO (09:23)
[2023-05-06] MEDS: guaiFENesin 1,200 MG Tablet 1200 MG PO ×2 (09:23→22:07)
[2023-05-06] MEDS: Fenofibrate 48 MG Tablet PO (09:23)
[2023-05-06] MEDS: Gabapentin 100 MG Capsule 200 MG PO ×2 (09:23→22:20)
[2023-05-06] MEDS: Lidocaine 5% Patch 1 PATCH TOPICAL (09:24)
[2023-05-06] MEDS: Nystatin Powder 15gm Bottle 1 APPLIC TOPICAL (09:24)
[2023-05-06] MEDS: Menthol/Lanolin/Calamine/Znox 113 GM Tube 1 APPLIC TOPICAL (09:24)
[2023-05-06] MEDS: 0.9% Saline Lock 10 ML Syringe IV ×5 (09:28→22:15)
[2023-05-06 09:38] LABS: Pathologist Review Reviewed
[2023-05-06 09:38] LABS: Pathologist Review Reviewed
[2023-05-06 11:59] LABS: Glucose 55 mg/dL (74-106)
[2023-05-06] MEDS: Dextrose 50%-Water 25 GM/50 ML DISP.SYRIN IV ×2 (12:17→15:57)
[2023-05-06 12:41] LABS: Bedside Glucose 187 mg/dL (74-106)
--- NOTE | 2023-05-06 15:31 | PN_ITS ---
Subjective Subjective Patient seen and examined. She had no active complaints. She had an uneventful night. Review of systems is otherwise negative. Objective Data Objective Data Vital Signs: Vital Signs Temp Pulse Resp BP Pulse Ox O2 Del Method O2 Flow Rate 97.7 F L 71 14 107/55 L 98 Nasal Cannula 2 05/06/23 09:01 05/06/23 09:01 05/06/23 09:01 05/06/23 09:01 05/06/23 09:01 05/06/23 09:04 05/06/23 14:46 FiO2 30 05/06/23 05:05 Oxygen Flow Rate (L/min) 2 Oxygen Delivery Method Nasal Cannula Weight: 284 lb 9.868 oz Body Mass Index (BMI) 47.3 Intake & Output: Intake and Output for Last 24 Hours 05/04/23 05/05/23 05/06/23 23:59 23:59 23:59 Intake Total 520 / 520 1340 / 1390 410 / 410 Output Total 401 / 401 1325 / 1825 1175 / 1175 Balance 119 / 119 15 / -435 -765 / -765 Lab / Micro Data 05/06/23 05:42 05/06/23 11:40 Labs: Laboratory Results - last 24 hr 05/03/23 08:24: Diff Path Review Reviewed 05/03/23 14:06: Diff Path Review Reviewed 05/05/23 16:13: POC Glucose 109 H 05/05/23 21:23: POC Glucose 153 H 05/06/23 05:42: WBC 2.0 L, RBC 2.79 L, Hgb 7.6 L, Hct 24.8 L, MCV 88.9, MCH 27.2, MCHC 30.6 L, RDW Std Deviation 51.7 H, RDW Coeff of Vlad 15.9 H, Plt Count 75 L, MPV 12.2 H, Immature Gran % (Auto) 1.500 H, Neut % (Auto) 40.4 L, Lymph % (Auto) 27.1, [place] % (Auto) 26.1 H, Eos % (Auto) 4.9, Baso % (Auto) 0.0, Absolute Neuts (auto) 0.8 L, Absolute Lymphs (auto) 0.55 L, Nucleated RBC % 0, Diff Path Review May foll, Platelet Estimate MOD DEC, Hypochromasia 1+, Anisocytosis 1+, Sodium 137, Potassium 4.4, Chloride 102, Carbon Dioxide 32.0, Anion Gap 3 L, BUN 45 H, Creatinine 2.36 H, Estim Creat Clear Calc 21.39, Est GFR (MDRD) Af Amer 27 L, Est GFR (MDRD) Non-Af 22 L, BUN/Creatinine Ratio 19.1, Glucose 134 H, Calcium 7.9 L 05/06/23 06:16: POC Glucose 115 H 05/06/23 11:40: Glucose 55 L 05/06/23 12:23: POC Glucose 187 H Micro: Microbiology 05/04/23 17:00 Stool Stool Occult Blood (KEIKO) - Final Occult Blood Positive Rhythm Strip Rhythm Strip: Sinus Rhythm Rate: 80 Ectopy: None Physical Exam Const alert, oriented x3 and no apparent distress General Appearance: cooperative and well developed HEENT normocephalic, head/scalp atraumatic and moist oral mucous membranes Eyes PERRL and EOMs intact bilaterally Neck no lymphadenopathy, supple and no JVD Lymph Lymphatic: no lymphadenopathy noted and no lymphedema noted Resp normal respiratory effort, no retractions, no use of accessory muscles and clear to auscultation bilaterally Resp Narrative: mildly diminished breath sounds bibasally, no wheezes or crackles. on 2 L of oxygen by nasal canula Cardio regular rate, regular rhythm, S1 normal heart sound, S2 normal heart sound and no murmurs GI normal to inspection, nondistended, normoactive bowel sounds, soft to palpation, non-tender and non-distended Extremity normal to inspection, normal capillary refill, no clubbing, cyanosis or edema and no calf tenderness General Extremity: edema bilateral lower extremity Details: moderate Skin General Skin Exam: no breakdown Neuro CN's II-XII intact bilaterally, no focal motor deficits, no sensory deficits noted and deep tendon reflexes 2+ bilaterally Sensorium / Orientation: awake and alert Motor Exam: strength 5/5 throughout and general weakness Psych thought process normal and cooperative Appearance: appropriate Assessment & Plan Assessment/Plan (1) Chest pain: PLAN: Plan #Acute hypoxic respiratory failure due o acuge exacerbation of HFpEF * being diuresed with IV lasix * on 3L of oxygen by nasal canula * breathing treatment with bronchodilators * titrate oxygen to maintain sats >90% * lasix on hold due to GASTON * * #Pancytopenia * platelets are 75, with wbc of 2 and Hb of 7.6. * platelets were 72 yesterday and have improved slightly. Baseline platelets are 214 from 05/01/2023. Will monitor. If it continues dropping, will consider HIT workup. * WBC baseline is also ~ 8. Will monitor. * #Hypertensive emergency: lasix on hold due to GASTON. Otherwise resolved #Anemia: * Hb is 7.6. Stool for occult blood positive. GI consulted. * Started on IV pantoprazole. * Iron studies showed iron of 34 with iron sats of 13.5% #Type 2 diabetes mellitus with neuropathy and nephropathy: * On basal insulin 49 units qhs. * Insulin Sliding scale. Checks ACHS. #GASTON on CKD 3: * Cr is today is 2.36, with a base of ~ 1.5. lasix on hold. * Cr trending down. * Continue gentle hydration with IVF * renal USG was normal * #MSSA bacteremia: On linezolid with stop date of 05/06. #Hypothyroidism: On Synthroid. TSH is 15.9. Is down from 66.7 in September 2022. #Depression: On escitalopram which is currently on hold as she is on linezolid. DVT prophylaxis: SCDs Charges/Coding Visit Charges Inpatient E&M: 85032 Subs Hosp L2
[2023-05-06 16:58] LABS: Bedside Glucose 159 mg/dL (74-106)
[2023-05-06 16:58] LABS: Bedside Glucose 68 mg/dL (74-106)
[2023-05-06] MEDS: Atorvastatin Calcium 10 MG Tablet PO (22:07)
[2023-05-06 22:40] LABS: Bedside Glucose 80 mg/dL (74-106)
[2023-05-06] MEDS: oxyCODONE 5 MG Tablet PO (23:05)
[2023-05-07] VITALS (15 sets, daily range): BP systolic 95–163; BP diastolic 50–100; PULSE 62–77; RESP 12–19; TEMP 36–36.7; O2SAT 91–100; BMI 47.2
[2023-05-07] MEDS: Levothyroxine 150 MCG Tablet PO (05:31)
[2023-05-07] MEDS: Acetaminophen 500 MG Tablet 1000 MG PO ×3 (05:31→21:58)
[2023-05-07 06:03] LABS: Absolute Lymphocyte Count 0.89 X10^3/uL (0.83-4.51); Absolute Neutrophil Count 0.5 X10^3/uL (2.0-7.7); Basophil# 0.01 X10^3/uL; Basophil% 0.5 % (0-1); Eosinophil# 0.09 X10^3/uL; Eosinophils% 4.5 % (0-5); Hematocrit 25.8 % (37-47); Hemoglobin 7.7 g/dL (12.0-15.0); Lymphocyte # 0.89 X10^3/ul (0.83-4.51); Lymphocyte % 44.9 % (19-41); Mean Corp Hgb Conc 29.8 g/dL (32-36); Mean Corpuscular Hgb 27.3 pg (27.0-32.0); Mean Corpuscular Volume 91.5 fL (81-99); Mean Platelet Vol. 11.5 fl (6.2-12.0); Monocyte# 0.44 X10^3/uL; Monocyte% 22.2 % (0-10); NRBC Flagged by Analyzer 0 % (0-5); Neutrophil # 0.52 X10^3/uL (2.7-7.7); Neutrophil % 26.4 % (47-70); POSITIVE COUNT YES; POSITIVE DIFFERENTIAL YES; POSITIVE MORPHOLOGY YES; Platelet Count 76 K/mm3 (150-450); RBC Distribution Width CV 15.9 % (11.6-14.6); RBC Distribution Width SD 52.8 fl (35.1-43.9); Red Blood Count 2.82 M/mm3 (4.2-5.4)
[2023-05-07 06:06] LABS: Differential Indicated SCAN CRITERIA MET
[2023-05-07 06:28] LABS: Anion Gap 5 (5-15); BUN 42 mg/dL (7-18); BUN/Creat Ratio 18.3 RATIO (10-20); Calcium,Total 8.3 mg/dL (8.5-10.1); Chloride 105 mmol/L (98-107); Creatinine, Serum 2.29 mg/dL (0.55-1.02); EST Glomerular Filtration Rate 23 mL/min (>60); Est Glom Filt Rate - Afr Amer 28 mL/min (>60); Estimated Creatinine Clearance 22.04 ml/min; Glucose 105 mg/dL (74-106); Sodium Level 141 mmol/L (136-145)
[2023-05-07 06:31] LABS: Anisocytosis 1+; Platelet Estimate MOD DEC (ADEQ)
[2023-05-07 06:32] LABS: Hypochromasia 1+
[2023-05-07 07:02] LABS: Bedside Glucose 91 mg/dL (74-106)
[2023-05-07 08:05] LABS: Bedside Glucose 47 mg/dL (74-106)
[2023-05-07 08:05] LABS: Bedside Glucose 52 mg/dL (74-106)
[2023-05-07] MEDS: Lactated Ringers 1,000 ML 15 ML IV (08:29)
--- NOTE | 2023-05-07 09:04 | OP.CCLET_ITS ---
05/07/2023 Lulu Luna Re : Upper GI endoscopy procedure for Jie Mckoy Dear Jeremy This procedure was performed on Sunday, May 07, 2023. My impressions and recommendations are as follows: Impressions : - Normal esophagus. - Oozing gastric ulcer with pigmented material. Injected. Treated with a heater probe. Clips were placed. 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 - Oozing gastric ulcer with a visible vessel. Treated with a heater probe. - Acute duodenitis. Biopsied. Recommendations : - [facility] for [facility] care. - Full liquid diet. - Repeat upper endoscopy in 3 months for surveillance. - Use Protonix (pantoprazole) 40 mg PO BID for 12 weeks. - Use sucralfate tablets 1 gram PO QID for 4 weeks. - No aspirin, ibuprofen, naproxen, or other non-steroidal anti-inflammatory drugs for 12 weeks. My findings are described in the full procedure note, which is enclosed. If I can be of further assistance, please feel free to contact me at . Sincerely, Holden Calderon, 05/07/2023 9:03:56 AM This report has been signed electronically.
--- NOTE | 2023-05-07 09:04 | OP.EGD_ITS ---
Patient Name: Jie Mckoy Procedure Date: 05/07/2023 8:39 AM Date of : 1960 Age: 63 Procedure: Upper GI endoscopy Indications: Iron deficiency anemia Providers: Holden Calderon DO Medicines: Monitored Anesthesia Care Patient Profile: This is a 63 year old female. Refer to note in patient chart for documentation of history and physical. Patient has symptoms of acute epigastric abdominal pain and acute dyspepsia. Complications: No immediate complications. Procedure: Pre-Anesthesia Assessment: - Prior to the procedure, a History and Physical was performed, and patient medications and allergies were reviewed. The patient is competent. The risks and benefits of the procedure and the sedation options and risks were discussed with the patient. All questions were answered and informed consent was obtained. Patient identification and proposed procedure were verified by the physician in the pre-procedure area. Mental Status Examination: alert and oriented. Airway Examination: normal oropharyngeal airway and neck mobility. Respiratory Examination: clear to auscultation. CV Examination: normal. Prophylactic Antibiotics: The patient does not require prophylactic antibiotics. Prior Anticoagulants: The patient has taken no anticoagulant or antiplatelet agents. ASA Grade Assessment: III - A patient with severe systemic disease. After reviewing the risks and benefits, the patient was deemed in satisfactory condition to undergo the procedure. The anesthesia plan was to use monitored anesthesia care (MAC). Immediately prior to administration of medications, the patient was re-assessed for adequacy to receive sedatives. The heart rate, respiratory rate, oxygen saturations, blood pressure, adequacy of pulmonary ventilation, and response to care were monitored throughout the procedure. The physical status of the patient was re-assessed after the procedure. After obtaining informed consent, the endoscope was passed under direct vision. Throughout the procedure, the patient's blood pressure, pulse, and oxygen saturations were monitored continuously. The Endoscope was introduced through the mouth, and advanced to the second part of duodenum. The upper GI endoscopy was accomplished without difficulty. The patient tolerated the procedure well. Scope In: 8:49:24 AM Scope Out: 8:55:27 AM Total Procedure Duration Time 0 hours 6 minutes 3 seconds Findings: The examined esophagus was normal. One oozing cratered gastric ulcer with pigmented material was found on the greater curvature of the stomach. The lesion was 15 mm in largest dimension. Area was successfully injected with 8 mL of a 0.1 mg/mL solution of epinephrine for drug delivery. Coagulation for hemostasis using heater probe was successful. For hemostasis, two hemostatic clips were successfully placed. Clip nurse unit manager: [employer]. There was no bleeding at the end of the procedure. One oozing linear gastric ulcer with a visible vessel was found on the lesser curvature of the stomach. The lesion was 6 mm in largest dimension. Coagulation for hemostasis using heater probe was successful. Estimated blood loss was minimal. Segmental moderate inflammation characterized by erosions, erythema and friability was found in the duodenal bulb and in the first portion of the duodenum. Biopsies were taken with a cold forceps for histology. Verification of patient identification for the specimen was done. Estimated blood loss was minimal. Biopsies were taken with a cold forceps for Helicobacter pylori testing. Verification of patient identification for the specimen was done. Estimated blood loss was minimal. Impression: - Normal esophagus. - Oozing gastric ulcer with pigmented material. Injected. Treated with a heater probe. Clips were placed. Clip nurse unit manager: [employer]. - Oozing gastric ulcer with a visible vessel. Treated with a heater probe. - Acute duodenitis. Biopsied. Recommendation: - Return patient to [facility] for ongoing care. - Full liquid diet. - Repeat upper endoscopy in 3 months for surveillance. - Use Protonix (pantoprazole) 40 mg PO BID for 12 weeks. - Use sucralfate tablets 1 gram PO QID for 4 weeks. - No aspirin, ibuprofen, naproxen, or other non-steroidal anti-inflammatory drugs for 12 weeks. Procedure Code(s): --- Professional --- 53447, 59, Esophagogastroduodenoscopy, flexible, transoral; with control of bleeding, any method 82806, Esophagogastroduodenoscopy, flexible, transoral; with biopsy, single or multiple 34346, 59,51, Esophagogastroduodenoscopy, flexible, transoral; with directed submucosal injection(s), any substance CPT copyright 2021 [employer]. All rights reserved. The codes documented in this report are preliminary and upon performing artist review may be revised to meet current compliance requirements. Holden Calderon DO 05/07/2023 9:03:56 AM This report has been signed electronically. Number of Addenda: 0 Note Initiated On: 05/07/2023 8:39 AM
[2023-05-07] MEDS: Menthol/Lanolin/Calamine/Znox 113 GM Tube 1 APPLIC TOPICAL ×2 (09:54→22:08)
[2023-05-07] MEDS: guaiFENesin 1,200 MG Tablet 1200 MG PO ×2 (09:55→22:07)
[2023-05-07] MEDS: Fenofibrate 48 MG Tablet PO (09:55)
[2023-05-07] MEDS: Pantoprazole Sodium 40 MG Tablet PO ×2 (09:55→22:01)
[2023-05-07] MEDS: Lidocaine 5% Patch 1 PATCH TOPICAL (09:55)
[2023-05-07] MEDS: Nystatin Powder 15gm Bottle 1 APPLIC TOPICAL (09:55)
[2023-05-07] MEDS: Gabapentin 100 MG Capsule 200 MG PO ×2 (10:03→22:06)
[2023-05-07] MEDS: Escitalopram Oxalate 10 MG Tablet PO (10:03)
[2023-05-07 10:09] LABS: Urea Nitrogen, Urine 484 mg/dL (NO RANGE EST.)
[2023-05-07 11:43] LABS: Bedside Glucose 90 mg/dL (74-106)
[2023-05-07 12:58] LABS: Pathologist Review Reviewed
[2023-05-07] MEDS: Omega-3 Acid Ethyl Esters 1 GM Capsule PO ×2 (14:56→22:00)
[2023-05-07 16:35] LABS: Bedside Glucose 102 mg/dL (74-106)
--- NOTE | 2023-05-07 16:53 | PN_ITS ---
Subjective Subjective Patient seen and examined. She had no active complaints. She had an uneventful night. She had EGD which showed an oozing gastric ulcer which was injected and another oozing gastric ulcer with a visible vessel which was treated with heater probe. She has remained stable. Objective Data Objective Data Vital Signs: Vital Signs Temp Pulse Resp BP Pulse Ox O2 Del Method O2 Flow Rate 97.4 F L 64 16 108/50 L 99 Nasal Cannula 2 05/07/23 15:50 05/07/23 15:50 05/07/23 15:50 05/07/23 15:50 05/07/23 15:50 05/07/23 15:50 05/07/23 15:50 FiO2 98 05/07/23 07:20 Oxygen Flow Rate (L/min) 2 Oxygen Delivery Method Nasal Cannula Weight: 283 lb 8.231 oz Body Mass Index (BMI) 47.2 Intake & Output: Intake and Output for Last 24 Hours 05/05/23 05/06/23 05/07/23 23:59 23:59 23:59 Intake Total 1340 / 1390 835 / 955 320 / 320 Output Total 1325 / 1825 1475 / 1475 550 / 550 Balance 15 / -435 -640 / -520 -230 / -230 Lab / Micro Data 05/07/23 05:50 05/07/23 05:50 Labs: Laboratory Results - last 24 hr 05/05/23 23:44: Urine Creatinine 64.00, Urine Urea Nitrogen 484 05/06/23 05:42: Diff Path Review Reviewed 05/06/23 11:28: POC Glucose 47 L 05/06/23 11:29: POC Glucose 52 L 05/06/23 15:36: POC Glucose 68 L 05/06/23 16:17: POC Glucose 159 H 05/06/23 22:03: POC Glucose 80 05/07/23 05:50: WBC 2.0 L, RBC 2.82 L, Hgb 7.7 L, Hct 25.8 L, MCV 91.5, MCH 27.3, MCHC 29.8 L, RDW Std Deviation 52.8 H, RDW Coeff of Vlad 15.9 H, Plt Count 76 L, MPV 11.5, Immature Gran % (Auto) 1.500 H, Neut % (Auto) 26.4 L, Lymph % (Auto) 44.9 H, [place] % (Auto) 22.2 H, Eos % (Auto) 4.5, Baso % (Auto) 0.5, Absolute Neuts (auto) 0.5 L, Absolute Lymphs (auto) 0.89, Nucleated RBC % 0, Pl atelet Estimate MOD DEC, Hypochromasia 1+, Anisocytosis 1+, Sodium 141, Potassium 4.0, Chloride 105, Carbon Dioxide 31.0, Anion Gap 5, BUN 42 H, Creatinine 2.29 H, Estim Creat Clear Calc 22.04, Est GFR (MDRD) Af Amer 28 L, Est GFR (MDRD) Non-Af 23 L, BUN/Creatinine Ratio 18.3, Glucose 105, Calcium 8.3 L 05/07/23 06:26: POC Glucose 91 05/07/23 11:20: POC Glucose 90 05/07/23 15:54: POC Glucose 102 Micro: Microbiology 05/04/23 17:00 Stool Stool Occult Blood (KEIKO) - Final Occult Blood Positive Rhythm Strip Rhythm Strip: Sinus Rhythm Rate: 80 Ectopy: None Physical Exam Const alert, oriented x3 and no apparent distress General Appearance: cooperative and well developed HEENT normocephalic, head/scalp atraumatic and moist oral mucous membranes Eyes PERRL and EOMs intact bilaterally Neck no lymphadenopathy, supple and no JVD Lymph Lymphatic: no lymphadenopathy noted and no lymphedema noted Resp normal respiratory effort, no retractions and no use of accessory muscles Resp Narrative: mildly diminished breath sounds bibasally, no wheezes or crackles. on 2 L of oxygen by nasal canula Cardio regular rate, regular rhythm, S1 normal heart sound, S2 normal heart sound and no murmurs GI normal to inspection, nondistended, normoactive bowel sounds, soft to palpation, non-tender and non-distended Extremity normal to inspection, normal capillary refill, no clubbing, cyanosis or edema and no calf tenderness Skin General Skin Exam: no breakdown Neuro CN's II-XII intact bilaterally, no focal motor deficits, no sensory deficits noted and deep tendon reflexes 2+ bilaterally Sensorium / Orientation: awake and alert Motor Exam: strength 5/5 throughout and general weakness Psych thought process normal and cooperative Appearance: appropriate Assessment & Plan Assessment/Plan (1) Chest pain: PLAN: Plan #Acute hypoxic respiratory failure due to acute exacerbation of HFpEF * on 2L of oxygen by nasal canula * breathing treatment with bronchodilators * titrate oxygen to maintain sats >90% * lasix on hold due to GASTON * * #Pancytopenia * platelets are 76 today, with wbc of 2 and Hb of 7.7. * . Baseline platelets are 214 from 05/01/2023. Will monitor. * WBC baseline is also ~ 8. Will monitor. * Platelets have essentially plateaued. We will continue monitoring. * #Hypertensive emergency: lasix on hold due to GASTON. Otherwise resolved #Anemia: * Hb is 7.7 today. Stool for occult blood positive. GI consulted. * Started on IV pantoprazole. * Iron studies showed iron of 34 with iron sats of 13.5% * She had EGD which showed oozing gastric ulcers with visible vessel which was treated with heater probe and injected. * Will switch to p.o. pantoprazole 40 mg twice daily and sucralfate. #Type 2 diabetes mellitus with neuropathy and nephropathy: * On basal insulin 49 units qhs. * Insulin Sliding scale. Checks ACHS. #GASTON on CKD 3: * Cr is today is 2.36, with a base of ~ 1.5. lasix on hold. * Creatinine has trended down to 2.29 today. * Continue gentle hydration with IVF * renal USG was normal * #MSSA bacteremia: Completed a course of linezolid. #Hypothyroidism: On Synthroid. TSH is 15.9. Is down from 66.7 in September 2022. #Depression: On escitalopram which is currently on hold as she is on linezolid. DVT prophylaxis: SCDs Disposition: For likely DC over the next 24-48 hours Charges/Coding Visit Charges Inpatient E&M: 78912 Subs Hosp L2
[2023-05-07] MEDS: oxyCODONE 5 MG Tablet PO (22:06)
[2023-05-07] MEDS: Sucralfate 1 GM Tablet PO (22:08)
[2023-05-07] MEDS: Insulin Glargine-YFGN 100 UNIT/ML Pen 49 UNIT SC (22:10)
[2023-05-07] MEDS: Atorvastatin Calcium 10 MG Tablet PO (22:11)
[2023-05-07 22:31] LABS: Bedside Glucose 162 mg/dL (74-106)
[2023-05-08] VITALS (8 sets, daily range): BP systolic 102–126; BP diastolic 54–63; PULSE 62–70; RESP 12–18; TEMP 36.4–36.6; O2SAT 88–100; BMI 47.0
[2023-05-08] MEDS: MELATONIN 3 MG TABLET PO (01:02)
[2023-05-08] MEDS: Levothyroxine 150 MCG Tablet PO (05:22)
[2023-05-08] MEDS: Acetaminophen 500 MG Tablet 1000 MG PO ×2 (05:22→13:39)
[2023-05-08 05:41] LABS: Bedside Glucose 144 mg/dL (74-106)
[2023-05-08 06:09] LABS: Absolute Lymphocyte Count 0.74 X10^3/uL (0.83-4.51); Absolute Neutrophil Count 0.9 X10^3/uL (2.0-7.7); Eosinophil# 0.09 X10^3/uL; Eosinophils% 4.4 % (0-5); Hematocrit 25.7 % (37-47); Hemoglobin 7.9 g/dL (12.0-15.0); Lymphocyte # 0.74 X10^3/ul (0.83-4.51); Lymphocyte % 36.3 % (19-41); Mean Corp Hgb Conc 30.7 g/dL (32-36); Mean Corpuscular Hgb 27.5 pg (27.0-32.0); Mean Corpuscular Volume 89.5 fL (81-99); Mean Platelet Vol. 11.7 fl (6.2-12.0); Monocyte# 0.35 X10^3/uL; Monocyte% 17.2 % (0-10); NRBC Flagged by Analyzer 0 % (0-5); Neutrophil # 0.85 X10^3/uL (2.7-7.7); Neutrophil % 41.6 % (47-70); POSITIVE COUNT YES; POSITIVE DIFFERENTIAL YES; Platelet Count 81 K/mm3 (150-450); RBC Distribution Width CV 15.9 % (11.6-14.6); RBC Distribution Width SD 52.8 fl (35.1-43.9); Red Blood Count 2.87 M/mm3 (4.2-5.4)
[2023-05-08 06:18] LABS: Differential Indicated SCAN CRITERIA MET
[2023-05-08 06:39] LABS: Anisocytosis 1+; Platelet Estimate MOD DEC (ADEQ)
[2023-05-08 06:41] LABS: Hypochromasia 1+
[2023-05-08 06:52] LABS: Anion Gap 4 (5-15); BUN 38 mg/dL (7-18); BUN/Creat Ratio 18.3 RATIO (10-20); Calcium,Total 8.4 mg/dL (8.5-10.1); Chloride 108 mmol/L (98-107); Creatinine, Serum 2.08 mg/dL (0.55-1.02); EST Glomerular Filtration Rate 25 mL/min (>60); Est Glom Filt Rate - Afr Amer 31 mL/min (>60); Estimated Creatinine Clearance 24.26 ml/min; Glucose 157 mg/dL (74-106); Potassium 4.1 mmol/L (3.5-5.1); Sodium Level 142 mmol/L (136-145)
[2023-05-08] MEDS: Sucralfate 1 GM Tablet PO ×2 (08:09→11:27)
[2023-05-08] MEDS: Gabapentin 100 MG Capsule 200 MG PO (09:02)
[2023-05-08] MEDS: Nystatin Powder 15gm Bottle 1 APPLIC TOPICAL (09:02)
[2023-05-08] MEDS: Pantoprazole Sodium 40 MG Tablet PO (09:03)
[2023-05-08] MEDS: Ferrous Sulfate 325 MG Tablet PO (09:03)
[2023-05-08] MEDS: guaiFENesin 1,200 MG Tablet 1200 MG PO (09:03)
[2023-05-08] MEDS: Omega-3 Acid Ethyl Esters 1 GM Capsule PO (09:03)
[2023-05-08] MEDS: Fenofibrate 48 MG Tablet PO (09:03)
[2023-05-08] MEDS: Menthol/Lanolin/Calamine/Znox 113 GM Tube 1 APPLIC TOPICAL (09:03)
[2023-05-08] MEDS: Lidocaine 5% Patch 1 PATCH TOPICAL (09:04)
[2023-05-08] MEDS: Escitalopram Oxalate 10 MG Tablet PO (09:04)
--- NOTE | 2023-05-08 11:00 | CASEMGMT ---
WES spoke with patient about returning to [facility] today. Patient said she will need transportation back. Louise d/irena event planning intern notified [facility] patient will be returning today. Varsha BELTRAN
[2023-05-08 12:01] LABS: Bedside Glucose 108 mg/dL (74-106)
--- NOTE | 2023-05-08 12:28 | DCINST_ITS ---
Discharge Instructions Diet Discharge Diet: Low fat / Low cholesterol Activity Discharge Activity: Return to Normal Activity Weight Bearing Status: Weight bearing as tolerated Dressing / Incision Call your doctor if you observe: Fever of 101 or Higher, Shortness of breath, Dizziness and Swelling in the ankles Follow Up Care Test Results: Test results from this visit will be discussed in further detail at your follow- up appointment, if applicable. Discharge Plan Admission Admit Date/Time: 05/02/23 00:16 Primary Reason for Your Visit: heart failure, anemia Attending Provider: Angelina Parker Primary Care Provider: Lulu Luna FIRST LINE SUPERVISOR Consulting Providers: Gaurav Winters; Jason Hernandez Instructions Patient Instructions: ED Heart Failure, Congestive (CHF), Heart Failure Discharge Orders/Prescriptions Prescriptions: Continued aspirin [Adult Low Dose Aspirin] 81 mg tablet,delayed release (DR/EC) 81 mg PO DAILY furosemide [Lasix] 20 mg tablet 20 mg PO DAILY levothyroxine 150 mcg tablet 150 mcg PO DAILY@0600 glipizide 10 mg tablet 10 mg PO BID Januvia 100 mg tablet 100 mg PO DAILY triamcinolone acetonide 0.1 % cream 1 applic topical TID Rx Instructions: to affected area atorvastatin 10 mg Tablet 10 mg PO DAILY pantoprazole 40 mg Tablet,Delayed Release (Dr/Ec) 40 mg PO DAILY escitalopram oxalate 10 mg Tablet 10 mg PO DAILY fenofibrate nanocrystallized [Tricor] 48 mg Tablet 48 mg PO DAILY gabapentin 100 mg capsule 200 mg PO BID Patient Comments: Takes morning and afternoon ropinirole 4 mg tablet 4 mg PO QHS Rx Instructions: administer 1-3 hours before bedtime Trulicity 0.75 mg/0.5 mL pen injector 0.75 mg SUBCUT .once a week omega 6-mlm-hip-fish oil [Fish Oil] 300-1,000 mg capsule 1 cap PO BID gabapentin 400 mg capsule 400 mg PO QHS metoclopramide HCl 5 mg tablet 5 mg PO BID (DME) pen needle, diabetic [Easy Touch] 31 gauge x 1/4 needle MISCELLANEOUS potassium chloride 10 mEq capsule, extended release 10 meq PO DAILY insulin lispro 100 unit/mL insulin pen 1 sliding scale dose SUBCUT TIDCM Rx Instructions: 150-200- 2 units 201-250- 4 units 251-300- 6 units 301-350- 8 units 351+ -10 units insulin glargine [Lantus Solostar U-100 Insulin] 100 unit/mL (3 mL) insulin pen 49 unit SUBCUT QHS fluconazole 100 mg tablet 150 mg PO QWEEK Patient Comments: take 1 tablet by mouth once daily artifi.tears(hypromellose)(PF) 0.3 % drops 1 drp EACH EYE Q2H PRN (Reason: retinal hemmorage) prednisone 10 mg tablet 20 mg PO DAILY Rx Instructions: Take 4 tablets daily for 4 days then 3 tablets daily for 4 days then 2 tablets daily for 4 days then 1 tablet daily for 4 days then half tablet daily for 4 days Discontinued metformin 1,000 mg tablet 1,000 mg PO BID levofloxacin 750 mg tablet 750 mg PO DAILY Qty: 7 0RF Hold Instructions: Pt has been DC'd linezolid [Zyvox] 600 mg tablet 600 mg PO BID Qty: 21 0RF Rx Instructions: start in the evening on 04/25/22-take a total of 21 doses Referrals / Follow Up: Lulu Luna FIRST LINE SUPERVISOR, FIRST LINE SUPERVISOR-C [Primary Care Provider] - Within 2 Weeks Disposition Disposition (needs filled in before D/C Order can be placed): Assisted Living
--- NOTE | 2023-05-08 12:31 | PCM.DC.SUM ---
Providers Date of Admission: 05/02/23 Date of Discharge: 05/08/23 Primary Care Physician: Lulu Luna, NEERU-Mamadou Consultations 05/06/23 08:25 Consult: Gastroenterology Routine Consulting Provider: [facility] Reason for Consult: anemia, positive blood in stool EMERGENT Consult: No MD Notified: Yes Date Notified: 05/06/23 Time Notified: 08:25 Method of Notification: Text Reason For Visit: ACUTE HYPOXEMIC RESPIRATORY FAILURE Diagnosis Discharge Diagnosis (1) Chest pain: Status: Acute Code(s): R07.9 - Chest pain, unspecified Plan #Acute hypoxic respiratory failure due to acute exacerbation of HFpEF on 2L of oxygen by nasal canula breathing treatment with bronchodilators titrate oxygen to maintain sats >90% lasix on hold due to GASTON #Pancytopenia platelets are 76 today, with wbc of 2 and Hb of 7.7. . Baseline platelets are 214 from 05/01/2023. Will monitor. WBC baseline is also ~ 8. Will monitor. Platelets have essentially plateaued. We will continue monitoring. #Hypertensive emergency: lasix on hold due to GASTON. Otherwise resolved #Anemia: Hb is 7.7 today. Stool for occult blood positive. GI consulted. Started on IV pantoprazole. Iron studies showed iron of 34 with iron sats of 13.5% She had EGD which showed oozing gastric ulcers with visible vessel which was treated with heater probe and injected. Will switch to p.o. pantoprazole 40 mg twice daily and sucralfate. #Type 2 diabetes mellitus with neuropathy and nephropathy: On basal insulin 49 units qhs. Insulin Sliding scale. Checks ACHS. #GASTON on CKD 3: Cr is today is 2.36, with a base of ~ 1.5. lasix on hold. Creatinine has trended down to 2.29 today. Continue gentle hydration with IVF renal USG was normal #MSSA bacteremia: Completed a course of linezolid. #Hypothyroidism: On Synthroid. TSH is 15.9. Is down from 66.7 in September 2022. #Depression: On escitalopram which is currently on hold as she is on linezolid. DVT prophylaxis: SCDs Disposition: For likely DC over the next 24-48 hours Medications at Discharge Home Medications atorvastatin 10 mg tablet 10 mg PO DAILY cholesterol 09/24/22 escitalopram oxalate 10 mg tablet 10 mg PO DAILY anxiety 09/24/22 fenofibrate nanocrystallized 48 mg tablet (Tricor) 48 mg PO DAILY cholesterol 09/24/22 aspirin 81 mg tablet,delayed release (Adult Low Dose Aspirin) 81 mg PO DAILY cardiac 03/05/23 furosemide 20 mg tablet (Lasix) 20 mg PO DAILY EDEMA 03/05/23 gabapentin 100 mg capsule 200 mg PO BID PAIN 03/05/23 glipizide 10 mg tablet 10 mg PO BID dm2 03/05/23 levothyroxine 150 mcg tablet 150 mcg PO DAILY@0600 SEE PCP 03/05/23 ropinirole 4 mg tablet 4 mg PO QHS restless legs 03/05/23 sitagliptin phosphate 100 mg tablet (Januvia) 100 mg PO DAILY DM2 03/05/23 triamcinolone acetonide 0.1 % topical cream 1 applic topical TID rash 03/05/23 dulaglutide 0.75 mg/0.5 mL subcutaneous pen injector (Trulicity) 0.75 mg subcut .once a week dm2 04/14/23 fluconazole 100 mg tablet 150 mg PO QWEEK SEE PCP 04/14/23 gabapentin 400 mg capsule 400 mg PO QHS SEE PCP 04/14/23 insulin glargine 100 unit/mL (3 mL) subcutaneous pen (Lantus Solostar U-100 Insulin) 49 unit subcut QHS SEE PCP 04/14/23 insulin lispro 100 unit/mL subcutaneous pen 1 sliding scale dose subcut TIDCM SEE PCP 04/14/23 metoclopramide HCl 5 mg tablet 5 mg PO BID SEE PCP 04/14/23 omega 9-zwk-krc-fish oil 300 mg-1,000 mg capsule (Fish Oil) 1 cap PO BID VITAMIN 04/14/23 pen needle, diabetic 31 gauge x 1/4 (Easy Touch) 04/14/23 potassium chloride 10 mEq capsule,extended release 10 meq PO DAILY SEE PCP 04/14/23 artifi.tears(hypromellose)(PF) 0.3 % eye drops 1 drp EACH EYE Q2H PRN retinal hemmorage 04/15/23 prednisone 10 mg tablet 20 mg PO DAILY SOB 05/02/23 pantoprazole 40 mg tablet,delayed release 40 mg PO BID #60 tabs 05/08/23 sucralfate 1 gram tablet (Carafate) 1 g PO BID #60 tabs 10/19/23 Hospital Course Operations None Procedures EGD Summary of Care Provided Minutes Spent on Discharge: 55 Hospital Course: Patient is a 63-year-old female with a past medical history as outlined was admitted through the ED with a complaint of shortness of breath. She was admitted on 05/02/2023. She had recently been admitted at [facility] from 04/19/2023 to 04/25/2023. She has subsequently been [place] [facility] on 4 L of oxygen. However on the day of presentation she was found to be hypoxic even on her 4 L of oxygen so she was brought into the ED. She complained of left shoulder pain. Chest x-ray done showed interstitial and alveolar pulmonary edema bilaterally similar to previous examination. She was admitted and managed for acute hypoxic respiratory failure which was thought to be due to CHF exacerbation. She had had a CY done on 04/23/2023 when she was admitted for MSSA bacteremia which showed EF of 60%. She was placed on IV Lasix. Blood pressure was also markedly elevated on admission and subsequently improved after her BP meds were resumed. Troponins were negative. Patient was continued on linezolid which she was taking for MSSA bacteremia from previous admission and finished the course on 05/06/2023. She was diuresed with Lasix and his shortness of breath improved. She felt much better. Hospital course was complicated by acute on chronic anemia. She was placed on pantoprazole. Iron study showed evidence of iron deficiency anemia. She had EGD which showed oozing gastric ulcers with visible vessel which was treated with a heater probe and injected. She was placed on p.o. pantoprazole and sucralfate. Patient remained stable and was discharged to [place] [facility] on 05/08/2023. She was discharged on p.o. pantoprazole as well as sucralfate. She was also discharged on p.o. Lasix. She is follow-up with her primary care doctor and gastroenterology within 1 to 2 weeks. Of note her metformin was discontinued on account of worsening renal function. Patient seen and examined prior to discharge. He had no complaints and had an uneventful night. Review of systems otherwise negative. Labs and vitals reviewed. Home medication reviewed and reconciled. Physical Exam Const alert, oriented x3 and no apparent distress General Appearance: cooperative, comfortable, well kempt and well developed Orientation / Consciousness: awake Exam Limitations: no limitations HEENT normocephalic, head/scalp atraumatic, hearing grossly normal bilaterally and moist oral mucous membranes Mouth: oral and palatal mucosa normal Eyes PERRL, EOMs intact bilaterally and conjunctivae normal Neck no lymphadenopathy, supple and no JVD Neck Narrative: +JVD Lymph Lymphatic: no lymphadenopathy noted and no lymphedema noted Resp normal respiratory effort, no retractions, no use of accessory muscles and clear to auscultation bilaterally Resp Narrative: mildly diminished breath sounds bibasally, no wheezes or crackles. on 2 L of oxygen by nasal canula Cardio regular rate, regular rhythm, S1 normal heart sound, S2 normal heart sound and no murmurs GI normal to inspection, nondistended, normoactive bowel sounds, soft to palpation, non-tender and non-distended Extremity normal to inspection, full ROM, normal capillary refill, no clubbing, cyanosis or edema and no calf tenderness General Extremity: edema bilateral lower extremity Details: moderate Skin no rashes or lesions noted General Skin Exam: no breakdown Neuro oriented x3, CN's II-XII intact bilaterally, moves all extremities, no focal motor deficits, no sensory deficits noted and deep tendon reflexes 2+ bilaterally Sensorium / Orientation: awake and alert Motor Exam: strength 5/5 throughout and general weakness Psych thought process normal and cooperative Appearance: appropriate Weight / BMI Weight Weight: 283 lb 1.176 oz Body Mass Index (BMI) 47.0 ABG / Lab / Microbiology Data 05/08/23 05:25 05/08/23 05:25 Laboratory: Laboratory Results - last 24 hr 05/06/23 05:42: Diff Path Review Reviewed 05/07/23 15:54: POC Glucose 102 05/07/23 21:52: POC Glucose 162 H 05/08/23 05:20: POC Glucose 144 H 05/08/23 05:25: WBC 2.0 L, RBC 2.87 L, Hgb 7.9 L, Hct 25.7 L, MCV 89.5, MCH 27.5, MCHC 30.7 L, RDW Std Deviation 52.8 H, RDW Coeff of Vlad 15.9 H, Plt Count 81 L, MPV 11.7, Immature Gran % (Auto) 0.500, Neut % (Auto) 41.6 L, Lymph % (Auto) 36.3, [place] % (Auto) 17.2 H, Eos % (Auto) 4.4, Baso % (Auto) 0.0, Absolute Neuts (auto) 0.9 L, Absolute Lymphs (auto) 0.74 L, Nucleated RBC % 0, Platelet Estimate MOD DEC, Hypochromasia 1+, Anisocytosis 1+, Sodium 142, Potassium 4.1, Chloride 108 H, Carbon Dioxide 30.0, Anion Gap 4 L, BUN 38 H, Creatinine 2.08 H, Estim Creat Clear Calc 24.26, Est GFR (MDRD) Af Amer 31 L, Est GFR (MDRD) Non-Af 25 L, BUN/Creatinine Ratio 18.3, Glucose 157 H, Calcium 8.4 L 05/08/23 11:24: POC Glucose 108 H Microbiology: Microbiology 05/04/23 17:00 Stool Stool Occult Blood (KEIKO) - Final Occult Blood Positive D/C Instructions Discharge Diet: Low fat / Low cholesterol Discharge Activity: Return to Normal Activity Weight Bearing Status: Weight bearing as tolerated Call your doctor if you observe: Fever of 101 or Higher, Shortness of breath, Dizziness and Swelling in the ankles Meaningful Use Info Meaningful Use Diagnoses (Choose all that apply): CHF CHF WILDER/ARB ordered at discharge?: No Reason WILDER/ARB not ordered?: Worsening renal disease Documented LVEF (%): 60 Discharge Plan Admission Admit Date/Time: 05/02/23 00:16 Primary Reason for Your Visit: heart failure, anemia Attending Provider: Angelina Parker Primary Care Provider: Lulu Luna [employer]TERATION TAILOR APPRENTICE Consulting Providers: Gaurav Winters; Jason Hernandez Instructions Patient Instructions: ED Heart Failure, Congestive (CHF), Heart Failure Discharge Orders/Prescriptions Prescriptions: New sucralfate [Carafate] 1 gram tablet 1 g PO BID Qty: 60 1RF pantoprazole 40 mg tablet,delayed release (DR/EC) 40 mg PO BID Qty: 60 2RF Continued aspirin [Adult Low Dose Aspirin] 81 mg tablet,delayed release (DR/EC) 81 mg PO DAILY furosemide [Lasix] 20 mg tablet 20 mg PO DAILY levothyroxine 150 mcg tablet 150 mcg PO DAILY@0600 glipizide 10 mg tablet 10 mg PO BID Januvia 100 mg tablet 100 mg PO DAILY triamcinolone acetonide 0.1 % cream 1 applic topical TID Rx Instructions: to affected area atorvastatin 10 mg Tablet 10 mg PO DAILY escitalopram oxalate 10 mg Tablet 10 mg PO DAILY fenofibrate nanocrystallized [Tricor] 48 mg Tablet 48 mg PO DAILY gabapentin 100 mg capsule 200 mg PO BID Patient Comments: Takes morning and afternoon ropinirole 4 mg tablet 4 mg PO QHS Rx Instructions: administer 1-3 hours before bedtime Trulicity 0.75 mg/0.5 mL pen injector 0.75 mg SUBCUT .once a week omega 2-mbc-dqy-fish oil [Fish Oil] 300-1,000 mg capsule 1 cap PO BID gabapentin 400 mg capsule 400 mg PO QHS metoclopramide HCl 5 mg tablet 5 mg PO BID (DME) pen needle, diabetic [Easy Touch] 31 gauge x 1/4 needle MISCELLANEOUS potassium chloride 10 mEq capsule, extended release 10 meq PO DAILY insulin lispro 100 unit/mL insulin pen 1 sliding scale dose SUBCUT TIDCM Rx Instructions: 150-200- 2 units 201-250- 4 units 251-300- 6 units 301-350- 8 units 351+ -10 units insulin glargine [Lantus Solostar U-100 Insulin] 100 unit/mL (3 mL) insulin pen 49 unit SUBCUT QHS fluconazole 100 mg tablet 150 mg PO QWEEK Patient Comments: take 1 tablet by mouth once daily artifi.tears(hypromellose)(PF) 0.3 % drops 1 drp EACH EYE Q2H PRN (Reason: retinal hemmorage) prednisone 10 mg tablet 20 mg PO DAILY Rx Instructions: Take 4 tablets daily for 4 days then 3 tablets daily for 4 days then 2 tablets daily for 4 days then 1 tablet daily for 4 days then half tablet daily for 4 days Discontinued metformin 1,000 mg tablet 1,000 mg PO BID pantoprazole 40 mg Tablet,Delayed Release (Dr/Ec) 40 mg PO DAILY levofloxacin 750 mg tablet 750 mg PO DAILY Qty: 7 0RF Hold Instructions: Pt has been DC'd linezolid [Zyvox] 600 mg tablet 600 mg PO BID Qty: 21 0RF Rx Instructions: start in the evening on 04/25/22-take a total of 21 doses Referrals / Follow Up: Lulu Luna ALTERATION TAILOR APPRENTICE, ALTERATION TAILOR APPRENTICE-C [Primary Care Provider] - Within 2 Weeks Holden Calderon, DO [Med Staff - Active Staff] - Within 2 Weeks Disposition Disposition (needs filled in before D/C Order can be placed): Assisted Living Charges/Coding Visit Charges Inpatient E&M: 40439 Disch Hosp >30min
--- NOTE | 2023-05-08 13:41 | CASEMGMT ---
SW received a call from [facility] and hospice is there taking her stuff as patient revoked hospice. They are concerned as patient will not have O2. WES explained that RN CM will set up O2 for patient before she returns today. RN CM aware. Varsha BELTRAN
--- NOTE | 2023-05-08 13:45 | CASEMGMT ---
Discharge Planning Discharge instructions and pickup time faxed to [facility]. Physcians will transport patient by wheelchair at 4p. Nursing, SW, and patient updated. Patient stated that she will notify her family. Louise King, Discharge Planning Asst.
--- NOTE | 2023-05-08 14:30 | CASEMGMT ---
CLEM MELARA updated that patient will need home oxygen at dischage by SW and patient prefers [employer]. Script received and referral sent to [facility] via [facility]. CLEM MELARA arranged for equipment to be delivered to Assisted Living at 4pm. WES updated.
--- NOTE | 2023-05-08 16:07 | NURSING ---
called report to nurse moreau at [facility]
== END 2023-05-08 16:04 | disposition home or self-care (01) | DRG 291 ==
LOC: ED 05-02 00:34 → PCU 05-02 01:09
PROVIDERS: Internal Medicine Gastroenterology; Admitting Provider Hospitalist; Emergency Provider Emergency Medicine; PCP Nurse Practitioner Adult Health; Visit Provider Student in an Organized Health Care Education/Training Program
PROC: 0DJ08ZZ Inspection of Upper Intestinal Tract, Via Natural or Artificial Opening Endoscopic (ICD-10-PCS; CPT 43235; principal; 2023-05-07 08:25)
DX: I13.0 Hypertensive heart and chronic kidney disease with heart failure and stage 1 through stage 4 chronic kidney disease, or unspecified chronic kidney disease (principal); K25.4 Chronic or unspecified gastric ulcer with hemorrhage; J96.01 Acute respiratory failure with hypoxia; I50.31 Acute diastolic (congestive) heart failure; D61.818 Other pancytopenia; R78.81 Bacteremia; N17.9 Acute kidney failure, unspecified; I16.1 Hypertensive emergency; J90 Pleural effusion, not elsewhere classified; E11.21 Type 2 diabetes mellitus with diabetic nephropathy; N18.32 Chronic kidney disease, stage 3b; E11.22 Type 2 diabetes mellitus with diabetic chronic kidney disease; E11.42 Type 2 diabetes mellitus with diabetic polyneuropathy; Z79.4 Long term (current) use of insulin; E03.9 Hypothyroidism, unspecified; D50.9 Iron deficiency anemia, unspecified; D63.8 Anemia in other chronic diseases classified elsewhere; E78.5 Hyperlipidemia, unspecified; G47.33 Obstructive sleep apnea (adult) (pediatric); K29.80 Duodenitis without bleeding; B95.61 Methicillin susceptible Staphylococcus aureus infection as the cause of diseases classified elsewhere; R91.8 Other nonspecific abnormal finding of lung field
CPT/HCPCS: 36415; 36600; 51702; 71045; 71275; 76770; 80048; 81001; 82274; 82570; 82607; 82728; 82746; 82803; 82947; 82962; 83540; 83550; 83605; 83880; 84145; 84439; 84443; 84484; 84540; 85025; 85027; 85379; 86850; 86900; 86901; 86920; 86922; 93005; 94002; 94003; 94640; 94762; 97110; 97162; 97166; 97530; 97535; 99252; 99285; J7040; J7120; P9016; Q9967; A4216; G0463; J1940

== ENCOUNTER 2023-07-14 18:35 | Inpatient (IN) | payer MEDICARE, MEDICAID, SELFPAY ==
[2023-07-14] VITALS (9 sets, daily range): BP systolic 175–197; BP diastolic 87–93; PULSE 70–99; RESP 12–38; TEMP 36.4–36.6; O2SAT 70–98; BMI 49.7; BMI 47.5
--- NOTE | 2023-07-14 18:47 | EKG12_ITS ---
Test Reason : DYSRHYTHMIA Blood Pressure : / mmHG Vent. Rate : 096 BPM Atrial Rate : 096 BPM P-R Int : 188 ms QRS Dur : 080 ms QT Int : 366 ms P-R-T Axes : 061 -20 114 degrees QTc Int : 462 ms Normal sinus rhythm Left ventricular hypertrophy with repolarization abnormality ( R in aVL ) Abnormal ECG Confirmed by GARCIA ROBERTS MD ([id number]), development editor ROSE KAUFMAN ([id number]) on 07/22/2023 9:25:32 AM Referred By: YESSI Confirmed By:GARCIA ROBERTS MD
--- NOTE | 2023-07-14 18:48 | ED.VIS.DYS ---
HPI History of Present Illness Chief Complaint: Shortness of Breath Informant: patient Onset/Context/Timing Onset: Today and Hours Context: sudden Timing: Continuous Quality: Negative for Wheezing Current Severity: Mild Maximum Severity: Mild Worsened by: Nothing Relieved by: Oxygen Associated Symptoms Negative for cough or rhinorrhea Chest Pain: Positive for None Narrative Narrative: 63-year-old female history of home O2 use. States she has been feeling fine denies any recent illness. She denies any fever or chills. She denies any nausea, vomiting or diarrhea. She denies any melena. No chest pain. No new leg pain or swelling. No history of DVT or PE. No recent hospitalization, surgery or travel. She uses oxygen at night 4 L. Today after she woke up from a nap she was more short of breath and just felt tired. PE Risk Factors: Negative for Cancer, OCP + Smoking + > 35, Prior DVT or PE, Recent immobilization, Recent surgery or Recent travel Prior similar symptoms: Yes Recent Illness/Hospitalization: No PFSH PFSH Medical History (HFpEF) heart failure with preserved ejection fraction GASTON (acute kidney injury) Anemia Anxiety and depression Chest pain Chronic acquired lymphedema Chronic anemia CKD (chronic kidney disease), stage III Diabetes mellitus with diabetic polyneuropathy Diabetes mellitus, type 2 History of diabetes mellitus History of fever HLD (hyperlipidemia) HTN (hypertension) Hypothyroidism Hypoxia Malaise Morbid obesity SACHIN (obstructive sleep apnea) Pleural effusion, left Pulmonary edema Retinal hemorrhage Home Medications atorvastatin 10 mg tablet 10 mg PO DAILY cholesterol 09/24/22 [History Last Taken 04/13/23] escitalopram oxalate 10 mg tablet 10 mg PO DAILY anxiety 09/24/22 [History Last Taken 04/13/23] fenofibrate nanocrystallized 48 mg tablet (Tricor) 48 mg PO DAILY cholesterol 09/24/22 [History Last Taken 04/13/23] aspirin 81 mg tablet,delayed release (Adult Low Dose Aspirin) 81 mg PO DAILY cardiac 03/05/23 [History Last Taken 05/01/23] furosemide 20 mg tablet (Lasix) 20 mg PO DAILY EDEMA 03/05/23 [History Last Taken 04/13/23] gabapentin 100 mg capsule 200 mg PO BID PAIN 03/05/23 [History Last Taken 04/13/23] glipizide 10 mg tablet 10 mg PO BID dm2 03/05/23 [History Last Taken 05/02/23] levothyroxine 150 mcg tablet 150 mcg PO DAILY@0600 SEE PCP 03/05/23 [History Last Taken Unknown] ropinirole 4 mg tablet 4 mg PO QHS restless legs 03/05/23 [History Last Taken 05/01/23] sitagliptin phosphate 100 mg tablet (Januvia) 100 mg PO DAILY DM2 03/05/23 [History Last Taken Unknown] triamcinolone acetonide 0.1 % topical cream 1 applic topical TID rash 03/05/23 [History Last Taken Unknown] dulaglutide 0.75 mg/0.5 mL subcutaneous pen injector (Trulicity) 0.75 mg subcut .once a week dm2 04/14/23 [History Last Taken 04/25/23] fluconazole 100 mg tablet 150 mg PO QWEEK SEE PCP 04/14/23 [History Last Taken Unknown] gabapentin 400 mg capsule 400 mg PO QHS SEE PCP 04/14/23 [History Last Taken 04/13/23] insulin glargine 100 unit/mL (3 mL) subcutaneous pen (Lantus Solostar U-100 Insulin) 49 unit subcut QHS SEE PCP 04/14/23 [History Last Taken Unknown] insulin lispro 100 unit/mL subcutaneous pen 1 sliding scale dose subcut TIDCM SEE PCP 04/14/23 [History Last Taken Unknown] metoclopramide HCl 5 mg tablet 5 mg PO BID SEE PCP 04/14/23 [History Last Taken Unknown] omega 3-gus-pnn-fish oil 300 mg-1,000 mg capsule (Fish Oil) 1 cap PO BID VITAMIN 04/14/23 [History Last Taken 04/13/23] pen needle, diabetic 31 gauge x 1/4 (Easy Touch) 04/14/23 [History Last Taken Unknown] potassium chloride 10 mEq capsule,extended release 10 meq PO DAILY SEE PCP 04/14/23 [History Last Taken 05/01/23] artifi.tears(hypromellose)(PF) 0.3 % eye drops 1 drp EACH EYE Q2H PRN retinal hemmorage 04/15/23 [History Last Taken Unknown] prednisone 10 mg tablet 20 mg PO DAILY SOB 05/02/23 [History Last Taken 05/01/23] pantoprazole 40 mg tablet,delayed release 40 mg PO BID #60 tabs 05/08/23 [Rx Last Taken Unknown] sucralfate 1 gram tablet (Carafate) 1 g PO BID #60 tabs 05/08/23 [Rx Last Taken Unknown] Allergy/AdvReac Type Severity Reaction Status Date / Time No Known Allergies Allergy Verified 07/14/23 18:45 Family History Mother Heart disease Hypertension Diabetes Father Prostate cancer Surgical History H/O cataract removal with insertion of prosthetic lens History of cholecystectomy History of surgery on lower extremity Social History [facility]: [facility] Smoking Status: Never smoker alcohol intake: never substance use type: does not use ROS ROS ED ROS Narrative Shortness of breath. Tired. Review of Systems ROS Unobtainable: Denies due to encephalopathy Constitutional Constitutional ED: Denies chills or fever(s) Eyes Eyes: Denies blurry vision ENT ENT ED: Denies ear pain Cardiovascular Cardiovascular: Denies chest pain or palpitations Respiratory/Chest Respiratory/Chest: Reports dyspnea; Denies cough Gastrointestinal Gastrointestinal: Denies abdominal pain, diarrhea, melena, nausea or vomiting Genitourinary Genitourinary ED: Denies dysuria or hematuria Musculoskeletal Musculoskeletal: Denies arthralgias Integumentary Denies abscess Neurologic Neurologic: Denies headache(s) Psychiatric Psychiatric: Denies anxiety or depression Endocrine Endocrinology: Denies cold intolerance or heat intolerance Hematologic/Lymphatic Hematologic/Lymphatic: Denies easy bleeding, easy bruising or lymphadenopathy Allergic/Immunologic Allergic/Immunologic ED: Denies mouth swelling, tongue swelling or urticaria EXAM Physical Exam Narrative Exam Narrative: 63-year-old female currently on BiPAP. Her vital signs are stable and afebrile. Her pulse ox is 97% on the BiPAP. She is awake alert. Answering questions and following commands. HEENT exam unremarkable. Neck nontender no JVD. No lymphadenopathy. Lungs currently her lungs are clear to auscultation bilaterally. No rales, rhonchi or wheezing. Equal and symmetrical. Heart regular rhythm rate in 90s no murmur. Chest wall nontender. Abdomen soft nontender. Moving all 4 extremities. Calves are nontender without edema or cords. Neurologically she is awake and alert. Answering questions and following commands. Const Vital Signs: 07/14/23 18:37 07/14/23 18:36 07/14/23 18:47 Temperature 97.5 F L Temperature Source Temporal Pulse Rate 97 95 Respiratory Rate 19 H 26 H Respiratory Pattern Blood Pressure 191/87 H 191/88 H Blood Pressure Mean 121 122 Pulse Ox 97 98 98 Oxygen Delivery Method Bi-pap Bi-pap Bi-pap Fraction of Inspired Oxygen (FIO2) 07/14/23 19:40 07/14/23 18:40 Temperature Temperature Source Pulse Rate 83 99 Respiratory Rate 17 38 H Respiratory Pattern Tachypnea Blood Pressure 175/89 H Blood Pressure Mean 117 Pulse Ox 95 93 Oxygen Delivery Method Bi-pap Fraction of Inspired Oxygen (FIO2) 40 Positive well nourished and well developed; Negative for cachectic, contractures or unkempt General Appearance ED: well developed; Negative for unkempt, cachectic, contractures or pallor Nutritional Appearance: Negative for cachectic HEENT Reports moist mucous membranes; Denies dry mucous membranes or other atraumatic; Negative for trauma, tenderness or other Mouth ED: No dry mucous membranes Mouth: No dry mucous membranes Eyes PERRL and EOMs intact bilaterally General Eye ED: Negative for pale conjunctiva or scleral icterus Neck no lymphadenopathy, supple, no meningeal signs and no JVD General: Negative for tenderness Lymph Lymphatic: Negative for other Chest Wall Chest: Negative for other Resp normal respiratory effort and clear to auscultation bilaterally Effort and Inspection: Negative for pain with movement Auscultation: Negative for rales, rhonchi or wheezes Cardio regular rate, regular rhythm, S1 normal heart sound, S2 normal heart sound and no murmurs Rate: Negative for bradycardia or tachycardic Rhythm: Negative for abnormal rhythm GI non-tender, non-distended and no masses Inspection: Negative for other Auscultation: normoactive bowel sounds Palpation: soft; Negative for tender, guarding or rebound tenderness present Back/Spine no CVA tenderness and normal to inspection General Back: Negative for CVA tenderness Extremity normal to inspection General Extremety ED: Negative for edema or tenderness General Extremity: Negative for edema Neuro oriented x3 and CN's II-XII intact bilaterally Sensorium / Orientation: alert, oriented to person, oriented to place and oriented to time; Negative for orientation impaired, confused or lethargic Speech: speech normal Motor Exam: strength 5/5 throughout Psych mental status grossly normal Appearance: Negative for unkempt Attitude: No agitated Mood & Affect: Negative for depressed or anxious Thought Process: normal thought process Skin no wounds and skin turgor normal General Skin Exam: Negative for jaundice or pallor Lesions: no lesions Rashes: no rashes Trauma: Negative for abrasion or laceration MDM MDM MDM Narrative Medical decision making narrative: 63-year-old female on home O2 at night awoke from a nap and was short of breath. Comes in on CPAP around 90% saturation. Converted to BiPAP. She is clinically looking better already. Differential would include cardiac etiology versus infectious versus other. She has not had other symptoms. This is relatively quick onset she has a history of CHF. Cardiac workup and labs are being obtained. Cynthiafranky did reportedly treat her with Solu-Medrol prior to arrival. Repeat exam patient is improved at 7:48 PM. Remains on the BiPAP. She will continue on that. She will be getting subcu insulin for her hyperglycemia. Her gap is normal I do not think this is DKA. I will speak to the hospitalist about admission for hypoxia due to flash pulmonary edema. History & Record Review Discussion w/independent historian: EMS personnel and Patient Additional record(s) reviewed:: Prior inpatient record, Prior outpatient record, Prior ED visit, Prior labs and No prior records Lab Data Attestation: I reviewed the patient's lab results. Lab results narrative: Chest x-ray consistent with pulmonary congestion secondary to pulmonary edema or CHF. CBC shows a white count of 6.1. H&H 9.7 and 31. Platelets 163. Electrolytes show a gap of 4 BUN of 45 creatinine 2.57 she has a history of renal insufficiency. Glucose is elevated at 600 patient is diabetic. Troponin is normal at 20 BNP is slightly elevated at 108. Labs: Laboratory Results - last 24 hr 07/14/23 18:55 WBC 6.1 RBC 3.59 L Hgb 9.7 L Hct 31.0 L MCV 86.4 MCH 27.0 MCHC 31.3 L RDW Std Deviation 46.7 H RDW Coeff of Vlad 14.9 H Plt Count 163 MPV 11.6 Immature Gran % (Auto) 4.100 H Neut % (Auto) 63.1 Lymph % (Auto) 18.1 L Davidson % (Auto) 8.9 Eos % (Auto) 5.3 H Baso % (Auto) 0.5 Absolute Neuts (auto) 3.8 Absolute Lymphs (auto) 1.10 Nucleated RBC % 0 Sodium 139 Potassium 5.1 Chloride 106 Carbon Dioxide 29.0 Anion Gap 4 L BUN 45 H Creatinine 2.57 H Estim Creat Clear Calc 19.64 Est GFR (MDRD) Af Amer 24 L Est GFR (MDRD) Non-Af 20 L BUN/Creatinine Ratio 17.5 Glucose 600 H* Calcium 8.8 Troponin I High Sens 20 B-Natriuretic Peptide 108.2 H Radiography Chest X-Ray - ED: 1 View, Read by ED Physician, Heart, Mediastinum, Bony Structures, Chronic Changes and CHF Diagnostic Testing: Clinical Impression(s) from Imaging Studies Chest X-Ray 07/14/23 18:55 IMPRESSION: Vascular congestion with interstitial opacities that may represent edema. Electronically Signed: Severino Mao MD at 19:23 EST , Chest x-ray, portable, single view interpreted by myself and the radiologist shows normal cardiac silhouette. Vascular congestion consistent with pulmonary edema and congestive heart failure. No significant effusions. Rhythm Strip Rhythm Strip: Sinus Rhythm Rate: 96 Ectopy: None EKG Initial EKG: Attestation: I personally reviewed and interpreted this EKG as follows: Interpretation: Sinus Rhythm and No Acute Injury Pattern Comments: Normal sinus rhythm rate of 96. LVH. No acute signs of MO, ischemia or dysrhythmia. Critical Care Time Critical Care Time: Yes Critical care time (excluding procedures): 30-74 minutes, Including time spent:, Discussing w/Patient &/or Family/Fire Official, Discussing w/Consultants, Arranging Admission or Transfer, Performing Direct Patient Care at Bedside and - (40 min) Discharge Plan Dx/Rx/DC Orders Clinical Impression: Hypoxia, Chronic kidney disease, Respiratory failure, Pulmonary edema, CHF (congestive heart failure), Hyperglycemia due to diabetes mellitus Disposition Disposition: Acute Care [facility]
--- NOTE | 2023-07-14 18:55 | RAD_ITS ---
EXAM: XR CHEST, 1 VIEW CLINICAL INDICATION: chest pain TECHNIQUE: Frontal view of the chest. COMPARISON: 05/04/2023 FINDINGS: LUNGS AND PLEURAL SPACES: Vascular congestion with interstitial opacities may represent edema. No pneumothorax. No effusion. HEART: Unremarkable. Cardiac silhouette not enlarged. MEDIASTINUM: Central airways and mediastinal contour are unremarkable. BONES/JOINTS: Unremarkable. No acute fracture. SOFT TISSUES: Unremarkable. RAD/Chest 1 View (Portable) IMPRESSION: Vascular congestion with interstitial opacities that may represent edema. Electronically Signed: Severino Mao MD at 19:23 EST ,
[2023-07-14 19:09] LABS: Absolute Neutrophil Count 3.8 X10^3/uL (2.0-7.7); Basophil# 0.03 X10^3/uL; Basophil% 0.5 % (0-1); Eosinophil# 0.32 X10^3/uL; Eosinophils% 5.3 % (0-5); Hemoglobin 9.7 g/dL (12.0-15.0); Lymphocyte % 18.1 % (19-41); Mean Corp Hgb Conc 31.3 g/dL (32-36); Mean Corpuscular Volume 86.4 fL (81-99); Mean Platelet Vol. 11.6 fl (6.2-12.0); Monocyte# 0.54 X10^3/uL; Monocyte% 8.9 % (0-10); NRBC Flagged by Analyzer 0 % (0-5); Neutrophil # 3.84 X10^3/uL (2.7-7.7); Neutrophil % 63.1 % (47-70); Platelet Count 163 K/mm3 (150-450); RBC Distribution Width CV 14.9 % (11.6-14.6); RBC Distribution Width SD 46.7 fl (35.1-43.9); Red Blood Count 3.59 M/mm3 (4.2-5.4); White Blood Count 6.1 K/mm3 (4.4-11.0)
[2023-07-14 19:21] LABS: BNP,B-Type NATRIURETIC PEPTIDE 108.2 pg/mL (0-100)
[2023-07-14 19:38] LABS: Anion Gap 4 (5-15); BUN 45 mg/dL (7-18); BUN/Creat Ratio 17.5 RATIO (10-20); Calcium,Total 8.8 mg/dL (8.5-10.1); Chloride 106 mmol/L (98-107); Creatinine, Serum 2.57 mg/dL (0.55-1.02); EST Glomerular Filtration Rate 20 mL/min (>60); Est Glom Filt Rate - Afr Amer 24 mL/min (>60); Estimated Creatinine Clearance 19.64 ml/min; Glucose 600 mg/dL (74-106); Potassium 5.1 mmol/L (3.5-5.1); Sodium Level 139 mmol/L (136-145); Troponin-I HS 20 pg/mL (3.0-54.0)
--- NOTE | 2023-07-14 19:59 | PCM.HP.STD ---
HPI - General General Date of Admission: 07/14/23 Date of Service: 07/14/23 HPI Narrative TOBIN BIGGS, is a 63 F who presented to [facility] ED on 07/14/2023 from assisted living with worsening shortness of breath. Patient seen at bedside in the ED. Patient was placed on a BiPAP on arrival to the ED, was on the BiPAP for about 30 minutes to an hour and then was taken off and placed on 4 L nasal cannula. Patient was on 4 L nasal cannula on my interview. She was sitting up in bed comfortably, conversing normally, in no acute distress. Was satting in the low to mid 90s, no increased work of breathing noted. Patient states that she feels moderately improved from earlier today after using the BiPAP. Patient states that until this morning, she had been doing well at home with no significant issues. She took a nap around midday, and when she woke up she had fairly significant shortness of breath and came to the ED for this. Patient notably was hospitalized about 2 months ago for similar concerns, states she thinks this episode was somewhat more mild than that episode. States she has been taking her home medications as prescribed recently. Does not check her blood pressure or blood sugars at home regularly. Currently denies any chest pain, shortness of breath, fevers or chills, lightheadedness or dizziness, abdominal pain. No other acute concerns at this time. [facility] Medical History (HFpEF) heart failure with preserved ejection fraction GASTON (acute kidney injury) Anemia Anxiety and depression Chest pain Chronic acquired lymphedema Chronic anemia CKD (chronic kidney disease), stage III Diabetes mellitus with diabetic polyneuropathy Diabetes mellitus, type 2 History of diabetes mellitus History of fever HLD (hyperlipidemia) HTN (hypertension) Hypothyroidism Hypoxia Malaise Morbid obesity SACHIN (obstructive sleep apnea) Pleural effusion, left Pulmonary edema Retinal hemorrhage Home Medications atorvastatin 10 mg tablet 10 mg PO DAILY cholesterol 09/24/22 [History Last Taken 04/13/23] escitalopram oxalate 10 mg tablet 10 mg PO DAILY anxiety 09/24/22 [History Last Taken 04/13/23] fenofibrate nanocrystallized 48 mg tablet (Tricor) 48 mg PO DAILY cholesterol 09/24/22 [History Last Taken 04/13/23] furosemide 20 mg tablet (Lasix) 20 mg PO DAILY EDEMA 03/05/23 [History Last Taken 04/13/23] gabapentin 100 mg capsule 200 mg PO BID PAIN 03/05/23 [History Last Taken 04/13/23] levothyroxine 150 mcg tablet 150 mcg PO DAILY@0600 SEE PCP 03/05/23 [History Last Taken Unknown] ropinirole 4 mg tablet 4 mg PO QHS restless legs 03/05/23 [History Last Taken 05/01/23] dulaglutide 0.75 mg/0.5 mL subcutaneous pen injector (Trulicity) 0.75 mg subcut .once a week dm2 04/14/23 [History Last Taken 04/25/23] gabapentin 400 mg capsule 400 mg PO QHS SEE PCP 04/14/23 [History Last Taken 04/13/23] insulin glargine 100 unit/mL (3 mL) subcutaneous pen (Lantus Solostar U-100 Insulin) 52 unit subcut QHS SEE PCP 04/14/23 [History Last Taken Unknown] insulin lispro 100 unit/mL subcutaneous pen 1 sliding scale dose subcut TIDCM SEE PCP 04/14/23 [History Last Taken Unknown] metoclopramide HCl 5 mg tablet 5 mg PO BID SEE PCP 04/14/23 [History Last Taken Unknown] omega 9-wja-olz-fish oil 300 mg-1,000 mg capsule (Fish Oil) 1 cap PO BID VITAMIN 04/14/23 [History Last Taken 04/13/23] pen needle, diabetic 31 gauge x 1/4 (Easy Touch) 04/14/23 [History Last Taken Unknown] potassium chloride 10 mEq capsule,extended release 10 meq PO DAILY SEE PCP 04/14/23 [History Last Taken 05/01/23] artifi.tears(hypromellose)(PF) 0.3 % eye drops 1 drp EACH EYE Q2H PRN retinal hemmorage 04/15/23 [History Last Taken Unknown] pantoprazole 40 mg tablet,delayed release 40 mg PO BID #60 tabs 05/08/23 [Rx Last Taken Unknown] sucralfate 1 gram tablet (Carafate) 1 g PO BID #60 tabs 05/08/23 [Rx Last Taken Unknown] Allergy/AdvReac Type Severity Reaction Status Date / Time No Known Allergies Allergy Verified 07/14/23 18:45 Family History Mother Heart disease Hypertension Diabetes Father Prostate cancer Surgical History H/O cataract removal with insertion of prosthetic lens History of cholecystectomy History of surgery on lower extremity Social History housing: skilled nursing Smoking Status: Never smoker alcohol intake: never substance use type: does not use ROS Constitutional Constitutional: Denies chills, fatigue, fever(s) or weakness Eyes Eyes: Denies change in vision Cardiovascular Cardiovascular: Denies chest pain, edema, lightheadedness, palpitations, rapid heart rate or syncope Respiratory/Chest Respiratory/Chest: Reports shortness of breath with exertion; Denies cough, shortness of breath at rest or wheezing Gastrointestinal Gastrointestinal: Denies abdominal pain, nausea or vomiting Genitourinary Genitourinary: Denies dysuria Neurologic Neurologic: Denies confusion, dizziness, focal weakness or headache(s) Vital Signs Vital Signs Vital Signs: 07/14/23 18:37 07/14/23 18:36 07/14/23 18:47 Temperature 97.5 F L Temperature Source Temporal Pulse Rate 97 95 Respiratory Rate 19 H 26 H Respiratory Pattern Blood Pressure 191/87 H 191/88 H Blood Pressure Mean 121 122 Pulse Ox 97 98 98 Oxygen Delivery Method Bi-pap Bi-pap Bi-pap Fraction of Inspired Oxygen (FIO2) 07/14/23 19:40 07/14/23 18:40 Temperature Temperature Source Pulse Rate 83 99 Respiratory Rate 17 38 H Respiratory Pattern Tachypnea Blood Pressure 175/89 H Blood Pressure Mean 117 Pulse Ox 95 93 Oxygen Delivery Method Bi-pap Fraction of Inspired Oxygen (FIO2) 40 Weight Weight: 135.6 kg Body Mass Index (BMI) 49.7 Physical Exam Const alert, oriented x3 and no apparent distress Constitutional Narrative: Pleasant elderly female, morbidly obese, sitting comfortably in bed, conversing normally, no acute distress. General Appearance: cooperative and comfortable HEENT normocephalic, head/scalp atraumatic, hearing grossly normal bilaterally, nasal mucous membranes and turbinates normal and moist oral mucous membranes Eyes PERRL, EOMs intact bilaterally and conjunctivae normal Neck full ROM, no lymphadenopathy and supple Lymph Lymphatic: no lymphadenopathy noted Chest inspection of chest normal Resp Resp Narrative: Satting in the low to mid 90s on 4 L nasal cannula, no increased work of breathing noted. Diminished breath sounds bilaterally throughout, may be due to patient's body habitus. No wheezing noted. No crackles noted. Cardio regular rate, regular rhythm, no murmurs and peripheral pulses 2+ throughout GI normal to inspection, nondistended, normoactive bowel sounds, soft to palpation, non-tender and non-distended Back/Spine normal ROM Extremity normal to inspection, full ROM and no pedal edema Skin no rashes or lesions noted Neuro moves all extremities and no focal motor deficits Speech: speech normal Psych mental status grossly normal Results Lab / Micro Data 07/14/23 18:55 07/14/23 18:55 Labs: Laboratory Results - last 24 hr 07/14/23 18:55: WBC 6.1, RBC 3.59 L, Hgb 9.7 L, Hct 31.0 L, MCV 86.4, MCH 27.0, MCHC 31.3 L, RDW Std Deviation 46.7 H, RDW Coeff of Vlad 14.9 H, Plt Count 163, MPV 11.6, Immature Gran % (Auto) 4.100 H, Neut % (Auto) 63.1, Lymph % (Auto) 18.1 L, Evans % (Auto) 8.9, Eos % (Auto) 5.3 H, Baso % (Auto) 0.5, Absolute Neuts (auto) 3.8, Absolute Lymphs (auto) 1.10, Nucleated RBC % 0, Sodium 139, Potassium 5.1, Chloride 106, Carbon Dioxide 29.0, Anion Gap 4 L, BUN 45 H, Creatinine 2.57 H, Estim Creat Clear Calc 19.64, Est GFR (MDRD) Af Amer 24 L, Est GFR (MDRD) Non-Af 20 L, BUN/Creatinine Ratio 17.5, Glucose 600 H*, Calcium 8.8, Troponin I High Sens 20, B-Natriuretic Peptide 108.2 H Rhythm Strip Rhythm Strip: Sinus Rhythm Rate: 96 Ectopy: None Imagaing Radiology Impression Chest X-Ray 07/14/23 18:55 IMPRESSION: Vascular congestion with interstitial opacities that may represent edema. Electronically Signed: Severino Mao MD at 19:23 EST , Assessment & Plan Assessment/Plan (1) Hypoxia: (2) Hyperglycemia due to diabetes mellitus: (3) Hypertensive urgency: PLAN: Plan Patient is a 63-year-old female who presented to [facility] ED on 07/14/2023 from assisted living with worsening shortness of breath. 1. Acute hypoxia, suspected hypertensive urgency Chest x-ray showed vascular congestion with interstitial opacities likely representing edema. Initially placed on BiPAP in the ED with good O2 saturations, transitioned shortly after to 4 L nasal cannula with O2 saturations in the low to mid 90s. Does not wear home oxygen during the daytime. Highest concern is for hypertensive urgency causing a degree of flash pulmonary edema, given persistently elevated blood pressures in the 170s to 190s on admission. ? Admit under observation status to PCU. Patient notably was admitted in April 2023 for similar presentation; blood pressures were elevated on admit but it appears they improved significantly without much intervention, and patient was discharged on only her home Lasix for blood pressure control. Have concern that patient has uncontrolled hypertension at baseline, given LVH changes on EKG, mild concentric hypertrophy noted on echo in 03/2023. Patient does not check blood pressure at home. Given 1 dose IV Lasix 40 mg in the ED. Will start amlodipine 5 mg daily and resume home Lasix, with IV hydralazine as needed for elevated BP. Will likely need O2 ambulatory test prior to discharge. 2. Type 2 diabetes mellitus with severe hyperglycemia and diabetic neuropathy BG 600 on admit, no anion gap, no concern for DKA. Home regimen of glargine 52 units at night, Humalog sliding scale with meals, Trulicity weekly. Only A1c in our system is from 09/2022, A1c of 6.9% at that time. Patient does not check blood sugars at home. ? Given 12 units of Humalog in the ED. Will start Lantus 45 units at night, Humalog 10 units 3 times daily AC with sliding scale insulin as needed. Adjust regimen as needed. A1c ordered. Continue home gabapentin. 3. History of pancytopenia Hemoglobin 7.9, WBC count 2.0K, platelets 81 on previous discharge on 05/08/23. Etiology noted to be unclear at that time, recommendation was for outpatient follow-up. Labs on this admission with hemoglobin 9.7, WBC count 6.1K, platelets 163. Suspect some degree of hemoconcentration but labs are improved from previous. ? Follow-up a.m. CBC. Chronic medical conditions: ? SACHIN on 4 L nasal cannula at night ? Morbid obesity: BMI 47.5 on admit. Encouraged lifestyle modifications. Complicates hospital course, care and prognosis. ? CKD stage IV: Creatinine 2.57, BUN 45 on admit. Baseline creatinine around 2.1-2.4. Stable. ? Hypothyroidism: Continue home Synthroid. ? GERD: Continue home PPI and sucralfate. ? Hyperlipidemia: Continue home statin and fenofibrate. ? Anxiety/depression, restless leg syndrome: Continue home escitalopram, ropinirole. DVT prophylaxis: Heparin subcu CODE STATUS: Full code, verified Expected disposition: Home (assisted living), tomorrow Total clinical time spent by myself addressing the patient's medical issues, reviewing all the data, and collaborating with patient's care team: 55 minutes. Charges/Coding Visit Charges Inpatient E&M: 71099 Init Hosp L2
[2023-07-14] MEDS: Insulin Lispro 100 UNIT/ML INSULN.PEN 12 UNIT SC (20:51)
[2023-07-14] MEDS: Furosemide 40 MG/4 ML Vial IV (20:52)
[2023-07-14] MEDS: amLODIPine 5 MG Tablet PO (22:28)
[2023-07-14] MEDS: Heparin Injection (Vial) 5,000 UNIT/ML VIAL 5000 UNIT SC (22:28)
[2023-07-14] MEDS: Pramipexole Di-HCl 0.5 MG Tablet 1.5 MG PO (22:28)
[2023-07-14] MEDS: Atorvastatin Calcium 10 MG Tablet PO (22:28)
[2023-07-14] MEDS: Insulin Glargine-YFGN 100 UNIT/ML Pen 45 UNIT SC (22:28)
[2023-07-14] MEDS: Pantoprazole Sodium 40 MG Tablet PO (22:29)
[2023-07-14] MEDS: Gabapentin 400 MG Capsule PO (22:34)
[2023-07-14 23:04] LABS: Bedside Glucose 410 mg/dL (74-106)
[2023-07-15] VITALS (11 sets, daily range): BP systolic 118–163; BP diastolic 58–88; PULSE 71–89; RESP 16–18; TEMP 36.5–36.8; O2SAT 84–100
[2023-07-15] MEDS: Sucralfate 1 GM Tablet PO ×2 (05:23→15:40)
[2023-07-15] MEDS: Levothyroxine 150 MCG Tablet PO (05:23)
[2023-07-15] MEDS: Miconazole Nitrate 43 GM Bottle 1 APPLIC TOPICAL (05:23)
[2023-07-15 06:02] LABS: Hematocrit 29.9 % (37-47); Hemoglobin 9.7 g/dL (12.0-15.0); Mean Corp Hgb Conc 32.4 g/dL (32-36); Mean Corpuscular Hgb 27.2 pg (27.0-32.0); Mean Platelet Vol. 11.3 fl (6.2-12.0); Platelet Count 169 K/mm3 (150-450); RBC Distribution Width CV 14.7 % (11.6-14.6); Red Blood Count 3.56 M/mm3 (4.2-5.4); White Blood Count 5.9 K/mm3 (4.4-11.0)
[2023-07-15 06:30] LABS: Anion Gap 7 (5-15); BUN 49 mg/dL (7-18); BUN/Creat Ratio 20.7 RATIO (10-20); Calcium,Total 8.9 mg/dL (8.5-10.1); Chloride 103 mmol/L (98-107); Creatinine, Serum 2.37 mg/dL (0.55-1.02); EST Glomerular Filtration Rate 22 mL/min (>60); Est Glom Filt Rate - Afr Amer 26 mL/min (>60); Estimated Creatinine Clearance 21.29 ml/min; Glucose 599 mg/dL (74-106); Sodium Level 139 mmol/L (136-145)
[2023-07-15 08:09] LABS: Bedside Glucose > 500 mg/dL (74-106)
--- NOTE | 2023-07-15 08:09 | PN.HOSP_ITS ---
Reason for Visit Reason for Visit: Diagnoses Type 2 diabetes mellitus with hyperglycemia (07/14/23) Hypertensive urgency (07/14/23) Hypoxemia (07/14/23) Subjective Subjective States that she became acutely short of breath after taking a nap yesterday. Feeling better but currently on oxygen. Objective Data Objective Data Vital Signs: Vital Signs Temp Pulse Resp BP Pulse Ox O2 Del Method O2 Flow Rate 36.6 C 89 18 163/88 H 93 Nasal Cannula 4 07/15/23 05:00 07/15/23 05:00 07/15/23 05:00 07/15/23 05:00 07/15/23 05:00 07/15/23 05:00 07/15/23 05:00 FiO2 30 07/14/23 23:22 Oxygen Flow Rate (L/min) 4 Oxygen Delivery Method Nasal Cannula Weight: 129.6 kg Body Mass Index (BMI) 47.5 Intake & Output: Intake and Output for Last 24 Hours 07/13/23 07/14/23 07/15/23 23:59 23:59 23:59 Intake Total 500 / 500 Output Total 400 / 400 Balance 100 / 100 Lab / Micro Data 07/15/23 05:05 07/15/23 05:05 Labs: Laboratory Results - last 24 hr 07/14/23 18:55: WBC 6.1, RBC 3.59 L, Hgb 9.7 L, Hct 31.0 L, MCV 86.4, MCH 27.0, MCHC 31.3 L, RDW Std Deviation 46.7 H, RDW Coeff of Vlad 14.9 H, Plt Count 163, MPV 11.6, Immature Gran % (Auto) 4.100 H, Neut % (Auto) 63.1, Lymph % (Auto) 18.1 L, Putnam % (Auto) 8.9, Eos % (Auto) 5.3 H, Baso % (Auto) 0.5, Absolute Neuts (auto) 3.8, Absolute Lymphs (auto) 1.10, Nucleated RBC % 0, Sodium 139, Potassium 5.1, Chloride 106, Carbon Dioxide 29.0, Anion Gap 4 L, BUN 45 H, Creatinine 2.57 H, Estim Creat Clear Calc 19.64, Est GFR (MDRD) Af Amer 24 L, Est GFR (MDRD) Non-Af 20 L, BUN/Creatinine Ratio 17.5, Glucose 600 H*, Calcium 8.8, Troponin I High Sens 20, B-Natriuretic Peptide 108.2 H 07/14/23 22:44: POC Glucose 410 H 07/15/23 05:05: WBC 5.9, RBC 3.56 L, Hgb 9.7 L, Hct 29.9 L, MCV 84.0, MCH 27.2, MCHC 32.4, RDW Std Deviation 45.0 H, RDW Coeff of Vlad 14.7 H, Plt Count 169, MPV 11.3, Sodium 139, Potassium 5.0, Chloride 103, Carbon Dioxide 29.0, Anion Gap 7, BUN 49 H, Creatinine 2.37 H, Estim Creat Clear Calc 21.29, Est GFR (MDRD) Af Amer 26 L, Est GFR (MDRD) Non-Af 22 L, BUN/Creatinine Ratio 20.7 H, Glucose 599 H*, Calcium 8.9 Radiography Diagnostic Testing: Radiology Impression Chest X-Ray 07/14/23 18:55 IMPRESSION: Vascular congestion with interstitial opacities that may represent edema. Electronically Signed: Severino Mao MD at 19:23 EST , Rhythm Strip Rhythm Strip: Sinus Rhythm Rate: 96 Ectopy: None Physical Exam Const alert and no apparent distress Resp normal respiratory effort, no retractions, no use of accessory muscles and clear to auscultation bilaterally Cardio regular rate, regular rhythm, S1 normal heart sound and S2 normal heart sound GI normal to inspection, nondistended, normoactive bowel sounds, soft to palpation, non-tender and non-distended Neuro Sensorium / Orientation: awake and alert Assessment & Plan Assessment/Plan (1) Hypoxia: (2) Hyperglycemia due to diabetes mellitus: (3) Hypertensive urgency: PLAN: Plan Patient is a 63-year-old female who presented to [facility] ED on 07/14/2023 from assisted living with worsening shortness of breath. Acute HFpEF * Concerned this could been flash pulmonary edema as patient acutely felt short of breath and was hypertensive. * EF 65% on 2d echo from 04/14/2023. * Received a dose of IV furosemide. Will IV furosemide. * No WILDER-/ARB given CKD HTN urgency * improving. continue amlodipine, but increase from 5 to 10mg/day. PRN hydralazine Acute hypoxia * 2/2 CHF exacerbation. Wean oxygen as tolerated. Type 2 diabetes mellitus: * with severe hyperglycemia and diabetic neuropathy BG 600 on admit, no anion gap, no concern for DKA. * Home regimen of glargine 52 units at night, Humalog sliding scale with meals, Trulicity weekly. A1c is 8.7. * Will increase glargine to 35 units twice daily. Continue with 10 units with meals of Humalog. Chronic conditions: * History of pancytopenia Hemoglobin 7.9, WBC count 2.0K, platelets 81 on previous discharge on 05/08/23. Etiology noted to be unclear at that time, recommendation was for outpatient follow-up. Labs on this admission with hemoglobin 9.7, WBC count 6.1K, platelets 163. Suspect some degree of hemo concentration but labs are improved from previous.Follow-up a.m. CBC. * SACHIN on 4 L nasal cannula at night * Morbid obesity: BMI 47.5 on admit. Encouraged lifestyle modifications. Complicates hospital course, care and prognosis. * CKD stage IV: Creatinine 2.57, BUN 45 on admit. Baseline creatinine around 2.1-2.4. Stable. * Hypothyroidism: Continue home Synthroid. * GERD: Continue home PPI and sucralfate. * Hyperlipidemia: Continue home statin and fenofibrate. * Anxiety/depression, restless leg syndrome: Continue home escitalopram, ropinirole. DVT prophylaxis: Heparin subcu CODE STATUS: Full code, verified Expected disposition: To be determined. Continue with diuresis. Charges/Coding Visit Charges Inpatient E&M: 58980 Subs Hosp L2
[2023-07-15] MEDS: Pantoprazole Sodium 40 MG Tablet PO ×2 (08:27→22:49)
[2023-07-15] MEDS: Aspirin E.C. 81 MG Tablet PO (08:27)
[2023-07-15] MEDS: Escitalopram Oxalate 10 MG Tablet PO (08:27)
[2023-07-15] MEDS: Heparin Injection (Vial) 5,000 UNIT/ML VIAL 5000 UNIT SC ×2 (08:28→22:49)
[2023-07-15] MEDS: Gabapentin 100 MG Capsule 200 MG PO ×2 (08:33→11:34)
[2023-07-15] MEDS: amLODIPine 10 MG Tablet PO (08:33)
[2023-07-15] MEDS: Furosemide 40 MG/4 ML Vial IV ×2 (08:34→17:26)
[2023-07-15 08:40] LABS: Hemoglobin A1c 8.7 % (3.8-5.6)
[2023-07-15] MEDS: Insulin Lispro 100 UNIT/ML INSULN.PEN 12 UNIT SC (08:45)
[2023-07-15] MEDS: Insulin Lispro 100 UNIT/ML INSULN.PEN 10 UNIT SC ×3 (09:22→17:25)
[2023-07-15 11:22] LABS: Bedside Glucose 441 mg/dL (74-106)
[2023-07-15] MEDS: Insulin Lispro 100 UNIT/ML INSULN.PEN SC ×3 (11:30→22:54)
--- NOTE | 2023-07-15 14:00 | CASEMGMT ---
Social Work This loan underwriter received notice that patient is from [facility]. Noted that patient was set up with home oxygen in the fall through [employer], upon discharge from [facility] back to the assisted living. Met with patient briefly, introducing self and social work role. Patient was sleepy in apologized repeatedly to this loan underwriter. Patient was able to confirm that would like to return back to the assisted living. Reports belief that does have a power of sap functional analyst for healthcare and living will. Patient agreeable with this loan underwriter to reach out to assisted living to see if the facility has such documents. Patient also indicated would be okay to talk to daughter if needed. This loan underwriter called the assisted living and spoke with Connie. Asked Connie to check on whether advance directives are on file. Connie agreed to do so and took both fax and phone numbers to call back. Plan: Anticipate return back to assisted living. -ARIAN Weaver, PACKING SUPERVISOR *This note was generated with [employer] dictation software. It may contain incorrect words, spelling, and punctuation that were not noted in review of the chart prior to signing*
[2023-07-15 17:02] LABS: Bedside Glucose 316 mg/dL (74-106)
[2023-07-15] MEDS: Atorvastatin Calcium 10 MG Tablet PO (22:49)
[2023-07-15] MEDS: Gabapentin 400 MG Capsule PO (22:49)
[2023-07-15] MEDS: Pramipexole Di-HCl 0.5 MG Tablet 1.5 MG PO (22:49)
[2023-07-15] MEDS: Insulin Glargine-YFGN 100 UNIT/ML Pen 35 UNIT SC (23:08)
[2023-07-15 23:34] LABS: Bedside Glucose 245 mg/dL (74-106)
[2023-07-16] VITALS (10 sets, daily range): BP systolic 101–115; BP diastolic 43–69; PULSE 63–76; RESP 16–18; TEMP 36.4–36.8; O2SAT 93–100
[2023-07-16 04:28] LABS: Bedside Glucose 208 mg/dL (74-106)
[2023-07-16] MEDS: Insulin Lispro 100 UNIT/ML INSULN.PEN SC ×2 (04:32→09:27)
[2023-07-16] MEDS: Levothyroxine 150 MCG Tablet PO (06:06)
[2023-07-16] MEDS: Sucralfate 1 GM Tablet PO ×2 (06:06→16:00)
[2023-07-16 06:47] LABS: Absolute Neutrophil Count 3.6 X10^3/uL (2.0-7.7); Basophil# 0.02 X10^3/uL; Basophil% 0.3 % (0-1); Eosinophil# 0.22 X10^3/uL; Eosinophils% 3.8 % (0-5); Hematocrit 30.8 % (37-47); Hemoglobin 9.5 g/dL (12.0-15.0); Lymphocyte % 22.3 % (19-41); Mean Corp Hgb Conc 30.8 g/dL (32-36); Mean Corpuscular Hgb 26.8 pg (27.0-32.0); Mean Platelet Vol. 11.3 fl (6.2-12.0); Monocyte# 0.52 X10^3/uL; Monocyte% 8.9 % (0-10); NRBC Flagged by Analyzer 0 % (0-5); Neutrophil # 3.63 X10^3/uL (2.7-7.7); Neutrophil % 62.5 % (47-70); Platelet Count 159 K/mm3 (150-450); RBC Distribution Width SD 47.8 fl (35.1-43.9); Red Blood Count 3.54 M/mm3 (4.2-5.4); White Blood Count 5.8 K/mm3 (4.4-11.0)
[2023-07-16 07:19] LABS: Anion Gap 5 (5-15); BUN 65 mg/dL (7-18); BUN/Creat Ratio 25.4 RATIO (10-20); Calcium,Total 9.2 mg/dL (8.5-10.1); Chloride 102 mmol/L (98-107); Creatinine, Serum 2.56 mg/dL (0.55-1.02); EST Glomerular Filtration Rate 20 mL/min (>60); Est Glom Filt Rate - Afr Amer 24 mL/min (>60); Estimated Creatinine Clearance 19.71 ml/min; Glucose 191 mg/dL (74-106); Potassium 4.2 mmol/L (3.5-5.1); Sodium Level 139 mmol/L (136-145)
[2023-07-16 08:23] LABS: Bedside Glucose 171 mg/dL (74-106)
[2023-07-16] MEDS: Aspirin E.C. 81 MG Tablet PO (09:26)
[2023-07-16] MEDS: Escitalopram Oxalate 10 MG Tablet PO (09:26)
[2023-07-16] MEDS: Heparin Injection (Vial) 5,000 UNIT/ML VIAL 5000 UNIT SC ×3 (09:26→22:29)
[2023-07-16] MEDS: Pantoprazole Sodium 40 MG Tablet PO ×2 (09:26→22:29)
[2023-07-16] MEDS: Insulin Glargine-YFGN 100 UNIT/ML Pen 35 UNIT SC (09:27)
[2023-07-16] MEDS: Insulin Lispro 100 UNIT/ML INSULN.PEN 10 UNIT SC (09:27)
[2023-07-16] MEDS: Furosemide 40 MG/4 ML Vial IV ×2 (09:49→10:09)
[2023-07-16] MEDS: Gabapentin 100 MG Capsule 200 MG PO (09:49)
[2023-07-16] MEDS: Miconazole Nitrate 43 GM Bottle 1 APPLIC TOPICAL (09:51)
[2023-07-16] MEDS: Menthol/Lanolin/Calamine/Znox 113 GM Tube 1 APPLIC TOPICAL (09:52)
--- NOTE | 2023-07-16 09:53 | PCM.PN.HOSP ---
Reason for Visit Reason for Visit: Shortness of breath Subjective Subjective Patient is a 63-year-old white female who presented to the emergency department at [facility] on 07/14/2023 with worsening shortness of breath. She resides at assisted living at baseline and she noted up until that morning she had been doing well at home with no significant issues. She indicated she took a nap around midday and then woke up and had fairly significant shortness of breath so she came to emergency department. She was hospitalized about 2 months ago for similar concerns and the patient reported that her symptoms were similar to that however more mild at this presentation. She reported that she has been compliant with her home medication and does check her blood pressures and blood sugars regularly. She is noncompliant with CPAP. She was placed on BiPAP on presentation due to her increased work of breathing and required this for about 30 minutes and then was transitioned to nasal cannula at 4 L. She is not on oxygen at baseline. Vital signs on presentation showed a temperature of 97.5, heart rate 97, respiratory rate was 16, blood pressure was 191/87 and oxygen saturations were 97% on BiPAP. Her CBC was unremarkable other than her chronic stable anemia due to her renal disease. Her chemistry panel showed normal electrolytes with a BUN of 45 and a serum creatinine of 2.57, blood glucose was 600 and her BNP was 108.2. Patient states she is having some ongoing shortness of breath with some chest congestion and cough which is new. She denies any headache or nasal congestion/drainage. No known sick contacts. It does appear she is much more optimized from a volume standpoint and blood pressure standpoint however she still is requiring oxygen. Patient overall states that she is feeling better. Objective Data Objective Data Vital Signs: Vital Signs Temp Pulse Resp BP Pulse Ox O2 Del Method O2 Flow Rate 97.9 F 76 16 106/60 96 Nasal Cannula 4 07/16/23 09:21 07/16/23 09:21 07/16/23 09:21 07/16/23 09:21 07/16/23 09:21 07/16/23 09:21 07/16/23 09:21 FiO2 30 07/14/23 23:22 Oxygen Flow Rate (L/min) 4 Oxygen Delivery Method Nasal Cannula Weight: 129.6 kg Body Mass Index (BMI) 47.5 Intake & Output: Intake and Output for Last 24 Hours 07/14/23 07/15/23 07/16/23 23:59 23:59 23:59 Intake Total 1800 / 1800 Output Total 1900 / 1900 Balance -100 / -100 Lab / Micro Data 07/16/23 06:27 07/16/23 06:27 Labs: Laboratory Results - last 24 hr 07/15/23 11:03: POC Glucose 441 H 07/15/23 16:43: POC Glucose 316 H 07/15/23 22:50: POC Glucose 245 H 07/16/23 04:01: POC Glucose 208 H 07/16/23 06:27: WBC 5.8, RBC 3.54 L, Hgb 9.5 L, Hct 30.8 L, MCV 87.0, MCH 26.8 L, MCHC 30.8 L, RDW Std Deviation 47.8 H, RDW Coeff of Vlad 15.0 H, Plt Count 159, MPV 11.3, Immature Gran % (Auto) 2.200 H, Neut % (Auto) 62.5, Lymph % (Auto) 22.3, [place] % (Auto) 8.9, Eos % (Auto) 3.8, Baso % (Auto) 0.3, Absolute Neuts (auto) 3.6, Absolute Lymphs (auto) 1.30, Nucleated RBC % 0, Sodium 139, Potassium 4.2, Chloride 102, Carbon Dioxide 32.0, Anion Gap 5, BUN 65 H, Creatinine 2.56 H, Estim Creat Clear Calc 19.71, Est GFR (MDRD) Af Amer 24 L, Est GFR (MDRD) Non-Af 20 L, BUN/Creatinine Ratio 25.4 H, Glucose 191 H, Calcium 9.2 07/16/23 08:03: POC Glucose 171 H Rhythm Strip Rhythm Strip: Sinus Rhythm Rate: 96 Ectopy: None Physical Exam Const alert, oriented x3, no apparent distress and well nourished; Negative for average body habitus or healthy appearing Constitutional Narrative: Morbidly obese, upper middle-aged, white female, sitting up in a chair at the bedside, watching television, appears comfortable and nontoxic HEENT head/scalp atraumatic and moist oral mucous membranes HEENT Narrative: Mallampati 3-4, no thrush Resp normal respiratory effort, no retractions, no use of accessory muscles and clear to auscultation bilaterally Resp Narrative: Diminished likely related to body habitus but clear Auscultation: Negative for rales, rhonchi or wheezes Cardio regular rate, regular rhythm, S1 normal heart sound, S2 normal heart sound, no murmurs, no rub and no clicks GI normal to inspection, nondistended, normoactive bowel sounds, soft to palpation and non-tender GI Narrative: Markedly protuberant abdomen Extremity no clubbing, cyanosis or edema Extremity Narrative: Pedal pulses are 2+ Neuro oriented x3, moves all extremities and no focal motor deficits Speech: speech normal Psych affect normal Psych Narrative: Contact is good, patient interacts appropriately Assessment & Plan Assessment/Plan (1) Hypertensive urgency: (2) Acute hypoxic respiratory failure: (3) Flash pulmonary edema: PLAN: Plan Acute hypoxic respiratory failure 2/2 acute exacerbation of heart failure with preserved ejection fraction/possible viral infection -Likely complicated due to lack of compliance with CPAP -Most recent echo on 04/14/2023 showed an EF of 65%, normal diastology for age, does have concentric LVH -required BiPAP on presentation due to work of breathing -Chest x-ray was consistent with volume overload and blood pressures were markedly elevated on presentation however they are normalized at this time -Has been weaned to 4 L nasal cannula oxygen saturations appear to run between 92 and 100% -Patient is not oxygen dependent at baseline -Wean oxygen as able--> nursing has trialed her on room air and her sats were stable however she is somnolent so they have kept oxygen on her because she wears oxygen during sleep -Check ambulatory pulse ox tomorrow -Continue Lasix but transition from IV back to oral dosing at 40 mg p.o. twice daily -BUN and serum creatinine have gone up -Check I's and O's -Sodium and fluid restriction -Daily weights -With complaint of cough and chest congestion will obtain COVID, respiratory viral panel, flu testing as she does seem to be more optimized from a volume standpoint Hypertensive emergency -Markedly hypertensive on presentation--> etiology is unclear as patient reports that she is compliant -Continue amlodipine but dose was increased -IV Lasix as noted above -Blood pressures are much improved and now normalized DM-2 -Hold home oral agents -Fasting blood glucose this morning is 191 -Increase basal insulin to 40 units twice daily -Increase prandial insulin to 15 units 3 times daily -A1c 8.7 07/15/23 -SSI -Accu-Cheks as ordered -Cardiac/carb controlled diet Hypothyroidism Continue home levothyroxine History of pancytopenia -Resolved -Will follow CKD stage IV -Baseline serum creatinine runs between 2.1 and 2.4 -Continue to monitor with diuretics -Repeat BMP in a.m. GERD/peptic ulcer disease/duodenitis -EGD done on 05/07/2023 and showed an oozing gastric ulcer that was injected and treated with heater probe x 2 and acute duodenitis -Continue PPI 40 mg p.o. twice daily -Continue Carafate -Will need GI follow-up Restless leg syndrome -Continue home ropinirole Gastroparesis -Continue home Reglan History of retinal hemorrhages secondary to DM-2 -No current issues Diabetic neuropathy -Continue gabapentin 400 mg nightly and 200 mg twice daily Hyperlipidemia -Continue home fenofibrate -Continue home atorvastatin SACHIN -Patient noncompliant with CPAP due to intolerance -Did require BiPAP on admission due to work of breathing -Wears nocturnal oxygen 4 L Morbid obesity -BMI is 47.5 -Recommend weight loss -Complicates treatment, prognosis, outcomes Depression -Continue home escitalopram DVT prophylaxis -Increase heparin to 5000 units 3 times daily with BMI CODE STATUS -Full code as verified on presentation Charges/Coding Visit Charges Inpatient E&M: 87599 Subs Hosp L2
[2023-07-16] MEDS: Insulin Glargine-YFGN 100 UNIT/ML Pen SC (10:08)
[2023-07-16 12:01] LABS: Bedside Glucose 135 mg/dL (74-106)
[2023-07-16] MEDS: Insulin Lispro 100 UNIT/ML INSULN.PEN 15 UNIT SC (12:57)
--- NOTE | 2023-07-16 14:07 | CHAPLAIN ---
Type of Pastoral Visit _x__ Initial Visit ___ Follow-up Visit ___ On-call Visit ___ General Patient Visit ___ Spiritual Assessment ___ Family Conference ___ Bereavement ___ Rapid Response ___ Code Blue ___ Other (describe below) Pastoral Care Referral From _x__ Patient ___ Family ___ Nurse ___ Physician ___ Hydrogenation Still Operator ___ Central Supply Clerk ___ Other (describe below) Sacrament/Intervention _x__ Active listening ___ Anointing ___ Restorationist ___ Bereavement ___ Communion ___ Tricia exploration ___ ___ Life review _x__ Prayer ___ Reconciliation ___ Sacrament of Sick _x__ Supportive presence ___ Wedding ___ Other (describe below) Pastoral Comments patient answers questions but is a little slow to respond; pt states that she is better than when she arrived at hospital; pt asks for water and ice as only request; pt did welcome a prayer to be said also
[2023-07-16 16:33] LABS: Bedside Glucose 79 mg/dL (74-106)
[2023-07-16] MEDS: Furosemide 40 MG Tablet PO (18:02)
[2023-07-16 18:29] LABS: Bedside Glucose 72 mg/dL (74-106)
[2023-07-16 20:11] LABS: Bedside Glucose 126 mg/dL (74-106)
[2023-07-16] MEDS: Pramipexole Di-HCl 0.5 MG Tablet 1.5 MG PO (22:29)
[2023-07-16] MEDS: Gabapentin 400 MG Capsule PO (22:29)
[2023-07-16] MEDS: Atorvastatin Calcium 10 MG Tablet PO (22:29)
[2023-07-17] VITALS (12 sets, daily range): BP systolic 76–107; BP diastolic 43–58; PULSE 60–73; RESP 12–22; TEMP 35.8–36.1; O2SAT 96–100
--- NOTE | 2023-07-17 02:38 | CPS ---
Pt refused PAP therapy for the night, on 4L
[2023-07-17] MEDS: Insulin Lispro 100 UNIT/ML INSULN.PEN SC ×2 (03:34→06:10)
[2023-07-17 03:57] LABS: Bedside Glucose 218 mg/dL (74-106)
[2023-07-17 06:05] LABS: Absolute Lymphocyte Count 0.88 X10^3/uL (0.83-4.51); Absolute Neutrophil Count 3.7 X10^3/uL (2.0-7.7); Basophil# 0.02 X10^3/uL; Basophil% 0.4 % (0-1); Eosinophil# 0.24 X10^3/uL; Eosinophils% 4.5 % (0-5); Hematocrit 29.4 % (37-47); Hemoglobin 9.1 g/dL (12.0-15.0); Lymphocyte # 0.88 X10^3/ul (0.83-4.51); Lymphocyte % 16.3 % (19-41); Mean Corpuscular Hgb 26.8 pg (27.0-32.0); Mean Corpuscular Volume 86.5 fL (81-99); Mean Platelet Vol. 10.8 fl (6.2-12.0); Monocyte% 9.3 % (0-10); NRBC Flagged by Analyzer 0 % (0-5); Neutrophil # 3.66 X10^3/uL (2.7-7.7); Neutrophil % 67.8 % (47-70); Platelet Count 160 K/mm3 (150-450); RBC Distribution Width SD 47.1 fl (35.1-43.9); White Blood Count 5.4 K/mm3 (4.4-11.0)
[2023-07-17] MEDS: Sucralfate 1 GM Tablet PO (06:09)
[2023-07-17] MEDS: Heparin Injection (Vial) 5,000 UNIT/ML VIAL 5000 UNIT SC ×3 (06:09→22:16)
[2023-07-17] MEDS: Levothyroxine 150 MCG Tablet PO (06:09)
[2023-07-17 06:36] LABS: Bedside Glucose 181 mg/dL (74-106)
[2023-07-17 06:48] LABS: Anion Gap 5 (5-15); BUN 74 mg/dL (7-18); BUN/Creat Ratio 29.1 RATIO (10-20); Calcium,Total 8.8 mg/dL (8.5-10.1); Chloride 98 mmol/L (98-107); Creatinine, Serum 2.54 mg/dL (0.55-1.02); EST Glomerular Filtration Rate 20 mL/min (>60); Est Glom Filt Rate - Afr Amer 24 mL/min (>60); Estimated Creatinine Clearance 19.87 ml/min; Glucose 213 mg/dL (74-106); Potassium 4.1 mmol/L (3.5-5.1); Sodium Level 136 mmol/L (136-145)
[2023-07-17] MEDS: Aspirin E.C. 81 MG Tablet PO (09:06)
[2023-07-17] MEDS: Gabapentin 100 MG Capsule 200 MG PO ×2 (09:06→12:46)
[2023-07-17] MEDS: Escitalopram Oxalate 10 MG Tablet PO (09:06)
[2023-07-17] MEDS: Insulin Lispro 100 UNIT/ML INSULN.PEN 15 UNIT SC ×2 (09:07→12:46)
[2023-07-17] MEDS: Insulin Glargine-YFGN 100 UNIT/ML Pen 40 UNIT SC ×2 (09:07→22:14)
[2023-07-17] MEDS: Pantoprazole Sodium 40 MG Tablet PO ×2 (09:07→22:13)
[2023-07-17] MEDS: Ondansetron 4 MG/2 ML Vial IV (09:10)
[2023-07-17] MEDS: LACTATED RINGERS 500 ML 999 ML IV ×2 (11:36)
[2023-07-17 13:37] LABS: Bedside Glucose 125 mg/dL (74-106)
--- NOTE | 2023-07-17 13:52 | PCM.PN.HOSP ---
Reason for Visit Reason for Visit: Shortness of breath Subjective Subjective No issues overnight and patient has been compliant with her BiPAP while she has been here but refuses to wear at home. I did discuss with her her need for treatment at home with regards to her sleep apnea and will make referral for pulmonary medicine as there are different masks now. She has not previously tolerated BiPAP due to not tolerating her mask. Blood pressure is on the low side this morning I think with the increase in amlodipine and diuretics this is likely the etiology for this. She was given IV boluses. Still somnolent during the day. Patient with significant lack of motivation overall. Patient did complain of lightheadedness. Objective Data Objective Data Vital Signs: Vital Signs Temp Pulse Resp BP Pulse Ox O2 Del Method O2 Flow Rate 96.9 F L 70 16 76/58 L 96 Bi-pap 2 07/17/23 12:47 07/17/23 12:47 07/17/23 12:47 07/17/23 12:47 07/17/23 12:47 07/17/23 13:22 07/17/23 09:22 FiO2 30 07/14/23 23:22 Oxygen Flow Rate (L/min) 2 Oxygen Delivery Method Bi-pap Weight: 129.6 kg Body Mass Index (BMI) 47.5 Intake & Output: Intake and Output for Last 24 Hours 07/15/23 07/16/23 07/17/23 23:59 23:59 23:59 Intake Total 1800 / 1800 780 / 780 1000 / 1000 Output Total 1900 / 1900 1400 / 1400 Balance -100 / -100 -620 / -620 1000 / 1000 Lab / Micro Data 07/17/23 05:39 07/17/23 05:39 Labs: Laboratory Results - last 24 hr 07/16/23 16:09: POC Glucose 79 07/16/23 17:58: POC Glucose 72 L 07/16/23 19:52: POC Glucose 126 H 07/17/23 03:26: POC Glucose 218 H 07/17/23 05:39: WBC 5.4, RBC 3.40 L, Hgb 9.1 L, Hct 29.4 L, MCV 86.5, MCH 26.8 L, MCHC 31.0 L, RDW Std Deviation 47.1 H, RDW Coeff of Vlad 15.0 H, Plt Count 160, MPV 10.8, Immature Gran % (Auto) 1.700 H, Neut % (Auto) 67.8, Lymph % (Auto) 16.3 L, [place] % (Auto) 9.3, Eos % (Auto) 4.5, Baso % (Auto) 0.4, Absolute Neuts (auto) 3.7, Absolute Lymphs (auto) 0.88, Nucleated RBC % 0, Sodium 136, Potassium 4.1, Chloride 98, Carbon Dioxide 33.0 H, Anion Gap 5, BUN 74 H, Creatinine 2.54 H, Estim Creat Clear Calc 19.87, Est GFR (MDRD) Af Amer 24 L, Est GFR (MDRD) Non-Af 20 L, BUN/Creatinine Ratio 29.1 H, Glucose 213 H, Calcium 8.8 07/17/23 06:08: POC Glucose 181 H 07/17/23 12:39: POC Glucose 125 H Micro: Microbiology 07/16/23 16:36 Mucosa - Nasopharyngeal Coronavirus COVID-19 PCR - Final 07/16/23 16:36 Mucosa - Nasopharyngeal Respiratory Panel (PCR) - Final Rhythm Strip Rhythm Strip: Sinus Rhythm Rate: 96 Ectopy: None Physical Exam Const alert, oriented x3, no apparent distress and well nourished; Negative for average body habitus or healthy appearing Constitutional Narrative: Morbidly obese, upper middle-aged, white female, sitting up in a chair at the bedside, was sleeping with food in her mouth when I walked in the room, awakens easily and was appropriate upon awakening appears comfortable and nontoxic General Appearance: cooperative and comfortable HEENT normocephalic, head/scalp atraumatic, hearing grossly normal bilaterally and moist oral mucous membranes HEENT Narrative: Mallampati 3-4, no thrush Resp normal respiratory effort, no retractions, no use of accessory muscles and clear to auscultation bilaterally Resp Narrative: Diminished secondary to body habitus but clear Auscultation: Negative for rales, rhonchi or wheezes Cardio regular rate, regular rhythm, S1 normal heart sound, S2 normal heart sound, no murmurs, no rub, no clicks and peripheral pulses 2+ throughout GI normal to inspection, nondistended, normoactive bowel sounds, soft to palpation and non-tender GI Narrative: Markedly protuberant abdomen Extremity no clubbing, cyanosis or edema Extremity Narrative: Pedal pulses are 2+ Neuro oriented x3, moves all extremities and no focal motor deficits Neuro Narrative: Sleepy but interacts appropriately when awake Speech: speech normal Psych mental status grossly normal and affect normal Psych Narrative: Contact is good, patient interacts appropriately but sleepy Assessment & Plan Assessment/Plan (1) Hypertensive urgency: (2) Acute hypoxic respiratory failure: (3) Flash pulmonary edema: (4) Somnolence: (5) Hypotension: PLAN: Plan Acute hypoxic respiratory failure 2/2 acute exacerbation of heart failure with preserved ejection fraction/possible viral infection -Likely complicated due to lack of compliance with CPAP -Most recent echo on 04/14/2023 showed an EF of 65%, normal diastology for age, does have concentric LVH -required BiPAP on presentation due to work of breathing prior to admission -Chest x-ray was consistent with volume overload and blood pressures were markedly elevated on presentation however they are normalized at this time -Patient on room air -Per discussion with case management her order for oxygen at home is 2 L [id number] however patient is not compliant and only wears 4 L with sleeping and is on room air during the day -Check ambulatory pulse ox prior to discharge -Hold Lasix -Check I's and O's -Sodium and fluid restriction -Daily weights -With complaint of cough and chest congestion will obtain COVID, respiratory viral panel, flu testing as she does seem to be more optimized from a volume standpoint Somnolence -Could be related to untreated sleep apnea and intermittent compliance with BiPAP -Will check ABG -Check ammonia level -Prelunch blood sugar was 125 Hypertensive emergency -Resolved and patient is now hypotensive -Fluid boluses with 2 L given for resuscitation due to hypotension -Patient's only complaint is lightheadedness -Hold Lasix -Hold amlodipine Hypotension -Fluid boluses -Hold Lasix -Hold amlodipine DM-2 -Hold home oral agents -Fasting blood glucose this morning is 191 -Increase basal insulin to 40 units twice daily -Increase prandial insulin to 15 units 3 times daily -A1c 8.7 07/15/23 -SSI -Accu-Cheks as ordered -Cardiac/carb controlled diet Hypothyroidism Continue home levothyroxine History of pancytopenia -Resolved -Will follow CKD stage IV -Baseline serum creatinine runs between 2.1 and 2.4 -Current serum creatinine is 2.54 -Diuretics on hold -Repeat BMP in a.m. -Outpatient neurology 5 GERD/peptic ulcer disease/duodenitis -EGD done on 05/07/2023 and showed an oozing gastric ulcer that was injected and treated with heater probe x 2 and acute duodenitis -Continue PPI 40 mg p.o. twice daily -Continue Carafate -Will need GI follow-up -Hemoglobin is stable Restless leg syndrome -Continue home ropinirole Gastroparesis -Continue home Reglan History of retinal hemorrhages secondary to DM-2 -No current issues Diabetic neuropathy -Hold gabapentin with somnolence and renal Hyperlipidemia -Continue home fenofibrate -Continue home atorvastatin SACHIN -Patient noncompliant with CPAP due to intolerance -Did require BiPAP on admission due to work of breathing -Wears nocturnal oxygen 4 L Morbid obesity -BMI is 47.5 -Recommend weight loss -Complicates treatment, prognosis, outcomes Depression -Continue home escitalopram DVT prophylaxis -Continue heparin 5000 units 3 times daily CODE STATUS -Full code as verified on presentation Charges/Coding Visit Charges Inpatient E&M: 49821 Subs Hosp L2
[2023-07-17] MEDS: 0.9% Normal Saline (1000mL) 1,000 ML 999 ML IV (14:33)
--- NOTE | 2023-07-17 16:13 | PCM.HOSP.N ---
Hospitalist Note Ammonia level is only slightly elevated at 34 and I doubt this is the etiology of her somnolence. ABG does show a pH of 7.299 with an elevated pCO2 at 62. I have requested that they put her on AVAPS mode continuous with noninvasive ventilation and repeat an ABG in 2 hours. Will again discuss tomorrow the importance of utilizing BiPAP at home as I highly suspect this is contributing to her frequent hospitalizations.
[2023-07-17 18:01] LABS: Blood Gas Specimen Type ART
[2023-07-17 18:02] LABS: Allen Test POS; O2 Delivery Device BiPAP; SITE R RADIAL
[2023-07-17 18:03] LABS: EPAP 12; IPAP 16; RR 12; Time Given 1430
[2023-07-17 18:05] LABS: Base Excess 6 mmol/L (-2 to +2); Bicarbonate 32.2 mmol/L (22-26); PO2 96 mmHG (75-100); SO2 96 % (95-99); Total Carbon Dioxide 34 mmol/L; pCO2 65.7 mmHg (35-45)
[2023-07-17 19:03] LABS: Allen Test Positive; Base Excess 2 mmol/L (-2 to +2); Bicarbonate 26.4 mmol/L (22-26); Blood Gas Specimen Type ART; Mode Not entered; O2 Delivery Device Cannula; PO2 120 mmHG (75-100); SITE R Radial; SO2 99 % (95-99); Total Carbon Dioxide 28 mmol/L; pCO2 42.5 mmHg (35-45)
[2023-07-17] MEDS: Pramipexole Di-HCl 0.5 MG Tablet 1.5 MG PO (22:13)
[2023-07-17] MEDS: Atorvastatin Calcium 10 MG Tablet PO (22:13)
[2023-07-18] VITALS (11 sets, daily range): BP systolic 102–123; BP diastolic 63–67; PULSE 60–65; RESP 12–18; TEMP 35.4–36.6; O2SAT 91–100
[2023-07-18 00:15] LABS: Bedside Glucose 136 mg/dL (74-106)
--- NOTE | 2023-07-18 02:34 | CPS ---
patient removed mask, she wanted to take a break and eat apple sauce
[2023-07-18 04:43] LABS: Bedside Glucose 134 mg/dL (74-106)
[2023-07-18] MEDS: Sucralfate 1 GM Tablet PO (05:59)
[2023-07-18] MEDS: Heparin Injection (Vial) 5,000 UNIT/ML VIAL 5000 UNIT SC (05:59)
[2023-07-18] MEDS: Levothyroxine 150 MCG Tablet PO (05:59)
[2023-07-18 07:20] LABS: Absolute Lymphocyte Count 0.95 X10^3/uL (0.83-4.51); Absolute Neutrophil Count 3.1 X10^3/uL (2.0-7.7); Basophil# 0.02 X10^3/uL; Basophil% 0.4 % (0-1); Eosinophil# 0.22 X10^3/uL; Eosinophils% 4.5 % (0-5); Hematocrit 27.7 % (37-47); Hemoglobin 8.7 g/dL (12.0-15.0); Lymphocyte # 0.95 X10^3/ul (0.83-4.51); Lymphocyte % 19.5 % (19-41); Mean Corp Hgb Conc 31.4 g/dL (32-36); Mean Corpuscular Hgb 27.1 pg (27.0-32.0); Mean Corpuscular Volume 86.3 fL (81-99); Mean Platelet Vol. 11.6 fl (6.2-12.0); Monocyte# 0.48 X10^3/uL; Monocyte% 9.9 % (0-10); NRBC Flagged by Analyzer 0 % (0-5); Neutrophil # 3.11 X10^3/uL (2.7-7.7); Neutrophil % 63.9 % (47-70); Platelet Count 141 K/mm3 (150-450); RBC Distribution Width CV 14.8 % (11.6-14.6); RBC Distribution Width SD 46.7 fl (35.1-43.9); Red Blood Count 3.21 M/mm3 (4.2-5.4); White Blood Count 4.9 K/mm3 (4.4-11.0)
[2023-07-18 08:10] LABS: Anion Gap 8 (5-15); BUN 72 mg/dL (7-18); BUN/Creat Ratio 27.2 RATIO (10-20); Calcium,Total 8.7 mg/dL (8.5-10.1); Chloride 102 mmol/L (98-107); Creatinine, Serum 2.65 mg/dL (0.55-1.02); EST Glomerular Filtration Rate 19 mL/min (>60); Est Glom Filt Rate - Afr Amer 23 mL/min (>60); Estimated Creatinine Clearance 19.04 ml/min; Glucose 145 mg/dL (74-106); Potassium 4.1 mmol/L (3.5-5.1); Sodium Level 139 mmol/L (136-145)
[2023-07-18] MEDS: Insulin Glargine-YFGN 100 UNIT/ML Pen 40 UNIT SC (08:40)
[2023-07-18] MEDS: Aspirin E.C. 81 MG Tablet PO (08:46)
[2023-07-18] MEDS: Escitalopram Oxalate 10 MG Tablet PO (08:46)
[2023-07-18] MEDS: Pantoprazole Sodium 40 MG Tablet PO (08:46)
--- NOTE | 2023-07-18 10:34 | CASEMGMT ---
Discharge Planning Call placed to [facility] to update of patients return today. Requested updates faxed. Louise King, Discharge Planning Asst.
[2023-07-18 12:17] LABS: Bedside Glucose 123 mg/dL (74-106)
--- NOTE | 2023-07-18 14:41 | PCM.DC.SUM ---
Providers Date of Admission: 07/15/23 Date of Discharge: 07/18/23 Primary Care Physician: KELVIN Garcia Reason For Visit: HYPERTENSIVE URGENCY Diagnosis Discharge Diagnosis (1) Hypertensive urgency: Status: Acute Code(s): I16.0 - Hypertensive urgency (2) Acute hypoxic respiratory failure: Status: Acute Code(s): J96.01 - Acute respiratory failure with hypoxia (3) Flash pulmonary edema: Status: Acute Code(s): J81.0 - Acute pulmonary edema (4) Somnolence: Status: Acute Code(s): R40.0 - Somnolence (5) Hypotension: Status: Acute Code(s): I95.9 - Hypotension, unspecified Medications at Discharge Home Medications atorvastatin 10 mg tablet 10 mg PO DAILY cholesterol 09/24/22 escitalopram oxalate 10 mg tablet 10 mg PO DAILY anxiety 09/24/22 fenofibrate nanocrystallized 48 mg tablet (Tricor) 48 mg PO DAILY cholesterol 09/24/22 furosemide 20 mg tablet (Lasix) 20 mg PO DAILY EDEMA 03/05/23 gabapentin 100 mg capsule 200 mg PO BID PAIN 03/05/23 levothyroxine 150 mcg tablet 150 mcg PO DAILY@0600 SEE PCP 03/05/23 ropinirole 4 mg tablet 4 mg PO QHS restless legs 03/05/23 dulaglutide 0.75 mg/0.5 mL subcutaneous pen injector (Trulicity) 0.75 mg subcut .once a week dm2 04/14/23 gabapentin 400 mg capsule 400 mg PO QHS SEE PCP 04/14/23 insulin glargine 100 unit/mL (3 mL) subcutaneous pen (Lantus Solostar U-100 Insulin) 52 unit subcut QHS SEE PCP 04/14/23 insulin lispro 100 unit/mL subcutaneous pen 1 sliding scale dose subcut TIDCM SEE PCP 04/14/23 metoclopramide HCl 5 mg tablet 5 mg PO BID SEE PCP 04/14/23 omega 3-czk-bpr-fish oil 300 mg-1,000 mg capsule (Fish Oil) 1 cap PO BID VITAMIN 04/14/23 pen needle, diabetic 31 gauge x 1/4 (Easy Touch) 04/14/23 potassium chloride 10 mEq capsule,extended release 10 meq PO DAILY SEE PCP 04/14/23 artifi.tears(hypromellose)(PF) 0.3 % eye drops 1 drp EACH EYE Q2H PRN retinal hemmorage 04/15/23 pantoprazole 40 mg tablet,delayed release 40 mg PO BID #60 tabs 05/08/23 sucralfate 1 gram tablet (Carafate) 1 g PO BID #60 tabs 05/08/23 Hospital Course Procedures EKG and - (Chest ray) Summary of Care Provided Minutes Spent on Discharge: 39 Hospital Course: Patient is a 63-year-old white female who presented to the emergency department at [facility] on 07/14/2023 with worsening shortness of breath. She resides at assisted living at baseline and she noted up until that morning she had been doing well at home with no significant issues. She indicated she took a nap around midday and then woke up and had fairly significant shortness of breath so she came to emergency department. She was hospitalized about 2 months ago for similar concerns and the patient reported that her symptoms were similar to that however more mild at this presentation. She reported that she has been compliant with her home medication and does check her blood pressures and blood sugars regularly. She is noncompliant with CPAP. She was placed on BiPAP on presentation due to her increased work of breathing and required this for about 30 minutes and then was transitioned to nasal cannula at 4 L. She is not on oxygen at baseline. Vital signs on presentation showed a temperature of 97.5, heart rate 97, respiratory rate was 16, blood pressure was 191/87 and oxygen saturations were 97% on BiPAP. Her CBC was unremarkable other than her chronic stable anemia due to her renal disease. Her chemistry panel showed normal electrolytes with a BUN of 45 and a serum creatinine of 2.57, blood glucose was 600 and her BNP was 108.2. She diuresed and actually became hypotensive. We decreased the increased dose of Norvasc that was started on presentation for her blood pressure elevation and her blood pressures were stable throughout her entire course on her baseline medications with them being held while she was hypotensive. I did have to give her some fluid bolus due to the hypotension which she responded well. She was also found to be very sleepy on 07/17/2023 and had been refusing her CPAP. We got an ammonia level which was unremarkable however an ABG showed that she had a respiratory acidosis with a pH of 7.299 and a pCO2 of 62. She was placed on AVAPS with a repeat ABG showing complete resolution of her respiratory acidosis and her mental status improved dramatically. I had extensive conversation with her on 07/18/2023 with regards to her not being compliant at home with her CPAP as the etiology for several of her hospitalizations. She does express that she has significant daytime somnolence and difficulty staying awake while she is an active. She overall is not very motivated. I discussed with her the importance of wearing her noninvasive ventilation while sleeping as this would likely help with her daytime somnolence and sleep habits, blood pressure, volume status and overall wellbeing. Patient was not able to tell me why she is not compliant with this and states she just does not wear it. They have tried different masks for her and she did not indicate she was particularly intolerant of them. I have asked her to view this like a medication that is lifesaving and to utilize her CPAP on a regular basis. She voiced understanding and stated she would try. Her blood sugars were well-controlled at the time of discharge with her home regimen so I do question whether or not she is compliant at home with her medications given her blood glucose on admission. We did arrange for follow-up with pulmonary medicine to be seen early next week with regards to her sleep apnea to see if there is a different mask that she would tolerate better and to have sufficient follow-up for her sleep apnea. Again I did severely impress upon her the importance of follow-up and continued use of her mask. She states she had a titration within the last 12 months so her current pressure should be adequate. She was discharged home with no medication changes on 07/18/2023. Her noncompliance does put her at high risk for readmissions and this was also discussed with her. Discharge diagnoses: Acute on chronic hypoxic and hypercapnic respiratory failure SACHIN with noncompliance Acute exacerbation of HFpEF-resolved Hypotension-resolved Somnolence-resolved Hypertensive emergency-resolved Hypotension-resolved DM-2-A1c 8.7 Hypothyroidism History of pancytopenia CKD stage IV GERD History of peptic ulcer Duodenitis Restless leg syndrome Gastroparesis History of retinal hemorrhages secondary to DM-2 Diabetic neuropathy Hyperlipidemia SACHIN Morbid obesity Depression Physical Exam Narrative Mentation is back to baseline, patient able to hold a conversation with me and interact appropriately. States she has a CPAP at home that was recently titrated however she is noncompliant and is not really able to tell me why. We had an extensive conversation on the importance of compliance and her overall wellbeing and and avoidance of multiple hospitalizations. She voiced understanding. Const alert, oriented x3, no apparent distress and well nourished; Negative for average body habitus or healthy appearing Constitutional Narrative: Morbidly obese, upper middle-aged, white female, sitting up in bed, eating breakfast and watching cartoons on the television, appears comfortable and nontoxic General Appearance: cooperative, comfortable, well kempt and well developed Nutritional Appearance: morbidly obese HEENT normocephalic, head/scalp atraumatic, hearing grossly normal bilaterally and moist oral mucous membranes HEENT Narrative: Mallampati 3-4, no thrush Eyes PERRL Eyes Narrative: No scleral icterus, mild conjunctival pallor Neck no lymphadenopathy and supple Neck Narrative: Trachea midline, no JVD, no enlargement, neck is short and thick Resp normal respiratory effort, no retractions, no use of accessory muscles and clear to auscultation bilaterally Resp Narrative: Diminished secondary to body habitus but clear Auscultation: Negative for rales, rhonchi or wheezes Cardio regular rate, regular rhythm, S1 normal heart sound, S2 normal heart sound, no murmurs, no rub and no clicks GI normal to inspection, nondistended, normoactive bowel sounds, soft to palpation and non-tender GI Narrative: Markedly protuberant abdomen Extremity no clubbing, cyanosis or edema Extremity Narrative: Pedal pulses are 2+ Skin no wounds, skin turgor normal and no jaundice Skin Narrative: Patient with intertrigo yeast Neuro oriented x3, CN's II-XII intact bilaterally, moves all extremities and no focal motor deficits Speech: speech normal Psych mental status grossly normal and affect normal Psych Narrative: Contact is good, patient interacts appropriately not at all sleepy today Weight / BMI Weight Weight: 129.6 kg Body Mass Index (BMI) 47.5 ABG / Lab / Microbiology Data 07/18/23 06:40 07/18/23 06:40 Laboratory: Laboratory Results - last 24 hr 07/17/23 22:02: POC Glucose 136 H 07/18/23 03:19: POC Glucose 134 H 07/18/23 06:40: WBC 4.9, RBC 3.21 L, Hgb 8.7 L, Hct 27.7 L, MCV 86.3, MCH 27.1, MCHC 31.4 L, RDW Std Deviation 46.7 H, RDW Coeff of Vlad 14.8 H, Plt Count 141 L, MPV 11.6, Immature Gran % (Auto) 1.800 H, Neut % (Auto) 63.9, Lymph % (Auto) 19.5, Barron % (Auto) 9.9, Eos % (Auto) 4.5, Baso % (Auto) 0.4, Absolute Neuts (auto) 3.1, Absolute Lymphs (auto) 0.95, Nucleated RBC % 0, Sodium 139, Potassium 4.1, Chloride 102, Carbon Dioxide 29.0, Anion Gap 8, BUN 72 H, Creatinine 2.65 H, Estim Creat Clear Calc 19.04, Est GFR (MDRD) Af Amer 23 L, Est GFR (MDRD) Non-Af 19 L, BUN/Creatinine Ratio 27.2 H, Glucose 145 H, Calcium 8.7 07/18/23 11:59: POC Glucose 123 H Microbiology: Microbiology 07/16/23 16:36 Mucosa - Nasopharyngeal Coronavirus COVID-19 PCR - Final 07/16/23 16:36 Mucosa - Nasopharyngeal Respiratory Panel (PCR) - Final ABG: ABG 07/17/23 07/17/23 14:30 18:57 Specimen Type ART ART Sample Site R RADIAL R Radial pH 7.30 L 7.40 Bicarbonate Actual 32.2 H 26.4 H Total CO2 34 28 Base Excess 6 H 2 O2 Saturation 96 99 O2 % 30.0 3.0 ABG pCO2 65.7 H 42.5 ABG pO2 96 120 H Madi Test POS Positive Respiration Rate 12 O2 Delivery Device BiPAP Cannula Vent Mode Not entered EPAP 12 IPAP 16 Crit Call To/Read Back Yes Blood Gas Notified Whom DAVID Blood Gas Notified Time 1430 D/C Instructions Discharge Diet: Low fat / Low cholesterol and 1800 Calorie Control Diet Discharge Activity: No Restrictions Meaningful Use Info Meaningful Use Diagnoses (Choose all that apply): None applicable Discharge Plan Admission Admit Date/Time: 07/15/23 12:54 Primary Reason for Your Visit: Shortness of breath Attending Provider: Karissa Szymanski Primary Care Provider: Lulu Luna SKIP TENDER Consulting Providers: Mike Hassan; Jason Hernandez Instructions Additional Instructions / Restrictions: 1. Compliance with your CPAP at night and with naps is essential Discharge Orders/Prescriptions Prescriptions: Continued furosemide [Lasix] 20 mg tablet 20 mg PO DAILY levothyroxine 150 mcg tablet 150 mcg PO DAILY@0600 atorvastatin 10 mg Tablet 10 mg PO DAILY escitalopram oxalate 10 mg Tablet 10 mg PO DAILY fenofibrate nanocrystallized [Tricor] 48 mg Tablet 48 mg PO DAILY gabapentin 100 mg capsule 200 mg PO BID Patient Comments: Takes morning and afternoon ropinirole 4 mg tablet 4 mg PO QHS Rx Instructions: administer 1-3 hours before bedtime Trulicity 0.75 mg/0.5 mL pen injector 0.75 mg SUBCUT .once a week omega 3-lii-ouz-fish oil [Fish Oil] 300-1,000 mg capsule 1 cap PO BID gabapentin 400 mg capsule 400 mg PO QHS metoclopramide HCl 5 mg tablet 5 mg PO BID (DME) pen needle, diabetic [Easy Touch] 31 gauge x 1/4 needle MISCELLANEOUS potassium chloride 10 mEq capsule, extended release 10 meq PO DAILY insulin lispro 100 unit/mL insulin pen 1 sliding scale dose SUBCUT TIDCM Rx Instructions: 150-200- 2 units 201-250- 4 units 251-300- 6 units 301-350- 8 units 351+ -10 units insulin glargine [Lantus Solostar U-100 Insulin] 100 unit/mL (3 mL) insulin pen 52 unit SUBCUT QHS artifi.tears(hypromellose)(PF) 0.3 % drops 1 drp EACH EYE Q2H PRN (Reason: retinal hemmorage) sucralfate [Carafate] 1 gram tablet 1 g PO BID Qty: 60 1RF pantoprazole 40 mg tablet,delayed release (DR/EC) 40 mg PO BID Qty: 60 2RF Referrals / Follow Up: Vidya Baez NP, SKIP TENDER-C [Med Staff - [facility] Practice [facility]] - 07/24/23 10:45 am Lulu Luna SKIP TENDER, SKIP TENDER-C [Primary Care Provider] - Disposition Disposition (needs filled in before D/C Order can be placed): Assisted Living Charges/Coding Visit Charges Inpatient E&M: 07649 Disch Hosp >30min
--- NOTE | 2023-07-18 15:52 | CASEMGMT ---
Discharge Planning Discharge Instructions and transport time faxed to [facility]. [facility] will transport patient by wheelchair at 6:30. Nursing, SW and patient updated. Patient stated she will notify her daughter. Louise King, Discharge Planning Asst.
[2023-07-18 16:57] LABS: Bedside Glucose 110 mg/dL (74-106)
== END 2023-07-18 20:30 | disposition home or self-care (01) | DRG 291 ==
LOC: ED 19:56 → PCU 20:21
PROVIDERS: Admitting Provider Hospitalist; Emergency Provider Emergency Medicine; PCP Nurse Practitioner Adult Health; Visit Provider Internal Medicine
DX: I13.0 Hypertensive heart and chronic kidney disease with heart failure and stage 1 through stage 4 chronic kidney disease, or unspecified chronic kidney disease (principal); I50.31 Acute diastolic (congestive) heart failure; J96.21 Acute and chronic respiratory failure with hypoxia; J81.0 Acute pulmonary edema; J96.22 Acute and chronic respiratory failure with hypercapnia; E87.29 Other acidosis; N18.4 Chronic kidney disease, stage 4 (severe); Z68.42 Body mass index [BMI] 45.0-49.9, adult; I16.1 Hypertensive emergency; I95.9 Hypotension, unspecified; E11.42 Type 2 diabetes mellitus with diabetic polyneuropathy; E11.22 Type 2 diabetes mellitus with diabetic chronic kidney disease; D63.1 Anemia in chronic kidney disease; E11.43 Type 2 diabetes mellitus with diabetic autonomic (poly)neuropathy; E11.65 Type 2 diabetes mellitus with hyperglycemia; Z79.4 Long term (current) use of insulin; E66.01 Morbid (severe) obesity due to excess calories; E03.9 Hypothyroidism, unspecified; G25.81 Restless legs syndrome; F32.A Depression, unspecified; I16.0 Hypertensive urgency; K21.9 Gastro-esophageal reflux disease without esophagitis; G47.33 Obstructive sleep apnea (adult) (pediatric); E78.5 Hyperlipidemia, unspecified; K31.84 Gastroparesis; K29.80 Duodenitis without bleeding; K25.9 Gastric ulcer, unspecified as acute or chronic, without hemorrhage or perforation; Z91.199 Patient's noncompliance with other medical treatment and regimen due to unspecified reason
CPT/HCPCS: 36415; 36600; 71045; 80048; 82140; 82803; 82962; 83036; 83880; 84484; 85025; 85027; 87633; 87635; 93005; 94002; 94003; 94668; 94762; 97162; 97166; 97530; 97535; 99285; J7030; J7120; A4216; J1940; J2405

== ENCOUNTER 2023-08-26 20:44 | Inpatient (IN) | payer MEDICARE, MEDICAID, SELFPAY ==
[2023-08-26] VITALS (8 sets, daily range): BP systolic 119–144; BP diastolic 70–99; PULSE 70–76; RESP 12–30; TEMP 35.2; O2SAT 91–98; BMI 52.2
[2023-08-26 21:06] LABS: Hematocrit 25.9 % (37-47); Hemoglobin 8.1 g/dL (12.0-15.0); Mean Corp Hgb Conc 31.3 g/dL (32-36); Mean Corpuscular Hgb 27.8 pg (27.0-32.0); Mean Platelet Vol. 11.5 fl (6.2-12.0); POSITIVE COUNT YES; POSITIVE MORPHOLOGY YES; Platelet Count 162 K/mm3 (150-450); RBC Distribution Width CV 16.3 % (11.6-14.6); RBC Distribution Width SD 52.6 fl (35.1-43.9); Red Blood Count 2.91 M/mm3 (4.2-5.4)
[2023-08-26 21:15] LABS: Differential Indicated MANUAL DIFF
--- NOTE | 2023-08-26 21:23 | ED.VIS.DYS ---
HPI History of Present Illness Chief Complaint: Shortness of Breath Informant: patient Onset/Context/Timing Onset: Today Context: gradual Timing: Continuous Quality: Positive for Dyspnea on exertion and Orthopnea Worsened by: Exertion and Lying flat Associated Symptoms subjective and chills; Negative for cough, rhinorrhea, ear pain, fever, sore throat, sweats, clear sputum, white sputum, yellow sputum or green sputum Chest Pain: Positive for None Narrative Narrative: Patient presents with shortness of breath that became worse today. Patient states it is gradually getting worse throughout the day today. Patient states her breathing is worse whenever she lays flat and exerts herself. Patient states nothing seems to help with it. Patient states she has a history of congestive heart failure and this feels similar to prior episodes of that. Patient admits to some subjective chills but denies any fevers. Patient denies any sore throat or cough. [facility] Medical History (HFpEF) heart failure with preserved ejection fraction GASTON (acute kidney injury) Anemia Anxiety Anxiety and depression Chest pain Chronic acquired lymphedema Chronic anemia Chronic kidney disease CKD (chronic kidney disease), stage III CPAP (continuous positive airway pressure) dependence Diabetes mellitus with diabetic polyneuropathy Diabetes mellitus, type 2 Gastroparesis History of diabetes mellitus History of fever HLD (hyperlipidemia) HTN (hypertension) Hypothyroidism Hypoxia Malaise Morbid obesity On home oxygen therapy SACHIN (obstructive sleep apnea) Pleural effusion, left Pulmonary edema Retinal hemorrhage Sleep apnea Home Medications atorvastatin 10 mg tablet 10 mg PO DAILY cholesterol 09/24/22 [History Last Taken 04/13/23] escitalopram oxalate 10 mg tablet 10 mg PO DAILY anxiety 09/24/22 [History Last Taken 04/13/23] fenofibrate nanocrystallized 48 mg tablet (Tricor) 48 mg PO DAILY cholesterol 09/24/22 [History Last Taken 04/13/23] furosemide 20 mg tablet (Lasix) 20 mg PO DAILY EDEMA 03/05/23 [History Last Taken 04/13/23] gabapentin 100 mg capsule 200 mg PO BID PAIN 03/05/23 [History Last Taken 04/13/23] levothyroxine 150 mcg tablet 150 mcg PO DAILY@0600 SEE PCP 03/05/23 [History Last Taken Unknown] ropinirole 4 mg tablet 4 mg PO QHS restless legs 03/05/23 [History Last Taken 10/12/23] dulaglutide 0.75 mg/0.5 mL subcutaneous pen injector (Trulicity) 0.75 mg subcut .once a week dm2 04/14/23 [History Last Taken 08/15/23] gabapentin 400 mg capsule 400 mg PO QHS SEE PCP 04/14/23 [History Last Taken 04/13/23] insulin glargine 100 unit/mL (3 mL) subcutaneous pen (Lantus Solostar U-100 Insulin) 54 unit subcut QHS SEE PCP 04/14/23 [History Last Taken Unknown] insulin lispro 100 unit/mL subcutaneous pen 1 sliding scale dose subcut TIDCM SEE PCP 04/14/23 [History Last Taken Unknown] metoclopramide HCl 5 mg tablet 5 mg PO BID SEE PCP 04/14/23 [History Last Taken Unknown] omega 6-vkt-[id number]-fish oil 300 mg-1,000 mg capsule (Fish Oil) 1 cap PO BID VITAMIN 04/14/23 [History Last Taken 04/13/23] pen needle, diabetic 31 gauge x 1/4 (Easy Touch) 04/14/23 [History Last Taken Unknown] potassium chloride 10 mEq capsule,extended release 10 meq PO DAILY SEE PCP 04/14/23 [History Last Taken 05/01/23] artifi.tears(hypromellose)(PF) 0.3 % eye drops 1 drp EACH EYE Q2H PRN retinal hemmorage 04/15/23 [History Last Taken Unknown] pantoprazole 40 mg tablet,delayed release 40 mg PO BID #60 tabs 05/08/23 [Rx Last Taken Unknown] sucralfate 1 gram tablet (Carafate) 1 g PO BID #60 tabs 05/08/23 [Rx Last Taken Unknown] acetaminophen 325 mg tablet 650 mg PO Q6H PRN pain 08/26/23 [History Last Taken Unknown] difluprednate 0.05 % eye drops 1 drp ophthalmic (eye) .QID 08/26/23 [History Last Taken Unknown] insulin lispro 100 unit/mL subcutaneous pen 6 unit subcut TID 08/26/23 [History Last Taken Unknown] nystatin 100,000 unit/gram topical powder (Nystop) 1 applic topical BID 08/26/23 [History Last Taken Unknown] Allergy/AdvReac Type Severity Reaction Status Date / Time No Known Allergies Allergy Verified 07/14/23 18:45 Family History Mother Heart disease Hypertension Diabetes Father Prostate cancer Surgical History H/O cataract removal with insertion of prosthetic lens History of cholecystectomy History of surgery on lower extremity Social History housing: shelter Smoking Status: Never smoker alcohol intake: never substance use type: does not use ROS ROS ED Constitutional Constitutional ED: Denies chills or fever(s) Eyes Eyes: Denies blurry vision or change in vision ENT ENT ED: Denies rhinorrhea or sore throat Cardiovascular Cardiovascular: Denies chest pain or palpitations Respiratory/Chest Respiratory/Chest: Reports dyspnea; Denies cough Gastrointestinal Gastrointestinal: Denies nausea or vomiting Genitourinary Genitourinary ED: Denies dysuria or hematuria Musculoskeletal Musculoskeletal: Denies back pain or neck pain Integumentary Reports rash; Denies abscess Neurologic Neurologic: Denies headache(s) or weakness Allergic/Immunologic Allergic/Immunologic ED: Denies mouth swelling or urticaria EXAM Physical Exam Const Vital Signs: 08/26/23 20:45 08/26/23 20:53 08/26/23 20:58 Temperature 95.3 F L Temperature Source Temporal Pulse Rate 76 70 Respiratory Rate 30 H 14 Respiratory Effort Short of Breath Labored Respiratory Depth Respiratory Pattern Normal Blood Pressure 144/74 H 144/74 H Blood Pressure Mean 97 97 Pulse Ox 91 96 Oxygen Delivery Method Nasal Cannula Nasal Cannula Oxygen Flow Rate (L/min) 6 8 Fraction of Inspired Oxygen (FIO2) 08/26/23 22:14 08/26/23 22:14 08/26/23 22:18 Temperature Temperature Source Pulse Rate Respiratory Rate Respiratory Effort Normal Respiratory Depth Shallow Respiratory Pattern Tachypnea Blood Pressure Blood Pressure Mean Pulse Ox 94 94 Oxygen Delivery Method Nasal Cannula Bi-pap Bi-pap Oxygen Flow Rate (L/min) 8 Fraction of Inspired Oxygen (FIO2) 08/26/23 22:05 08/26/23 22:42 Temperature Temperature Source Pulse Rate 76 72 Respiratory Rate 21 H 17 Respiratory Effort Respiratory Depth Respiratory Pattern Tachypnea Normal Blood Pressure Blood Pressure Mean Pulse Ox 97 98 Oxygen Delivery Method Oxygen Flow Rate (L/min) Fraction of Inspired Oxygen (FIO2) 50 30 Positive well nourished, well developed and obese General Appearance ED: well developed Nutritional Appearance: obese HEENT Reports moist mucous membranes Neck supple and no JVD Resp normal respiratory effort Auscultation: rales bilateral 1/2 way up Cardio regular rate and regular rhythm GI non-tender and non-distended Palpation: soft Extremity General Extremety ED: Yes edema and tenderness General Extremity: edema Neuro oriented x3, CN's II-XII intact bilaterally and no sensory deficits noted Jessica Coma Scale: document GCS findings Spontaneous Obeys Commands Oriented 15 Sensorium / Orientation: alert Speech: speech normal Motor Exam: strength 5/5 throughout MDM MDM MDM Narrative Medical decision making narrative: Differential diagnosis includes congestive heart failure, pneumonia, cardiac dysrhythmia, cardiac ischemia, viral illness, and pulmonary embolism. Chest x-ray will be obtained to assess for pneumonia and congestive heart failure. EKG will be obtained to assess for cardiac dysrhythmia and cardiac ischemia. CBC will be obtained to assess for leukocytosis and anemia. Basic metabolic profile will be obtained to assess for electrolyte abnormality and renal function. Serum lactate will be obtained to assess for sepsis. High-sensitivity troponin will be obtained to assess for cardiac ischemia. BNP will be obtained to assess for congestive heart failure. PT with INR and PTT will be obtained to assess for coagulopathy. 2-hour repeat troponin will be obtained to assess for ongoing cardiac ischemia. History & Record Review Additional record(s) reviewed:: Prior labs Lab Data Attestation: I reviewed the patient's lab results. Lab results narrative: CBC was reviewed. There is an anemia with a hemoglobin of 8.1 and hematocrit 25.9. This is consistent with previous results. Basic metabolic profile was reviewed. BUN was 47 and creatinine was 2.37. These are consistent with prior results. Glucose was elevated at 407. High-sensitivity troponin was reviewed and was normal at 14. BNP was reviewed and was only slightly elevated at 114.4. This is consistent with prior results. D-dimer was reviewed and was normal for her age at 0.63. Urinalysis was reviewed. Leukocyte esterase is 100. Glucose was 1000. There are 10-25 white blood cells and 10-25 epithelial cells. There is 2+ bacteria. Arterial blood gas was reviewed. pH was 7.19, pCO2 was 72.7, pO2 was 115.4, bicarb was 27.8, and O2 saturation was 97% on BiPAP. Labs: Laboratory Results - last 24 hr 08/26/23 08/26/23 08/26/23 20:55 22:06 Unknown WBC 5.0 RBC 2.91 L Hgb 8.1 L Hct 25.9 L MCV 89.0 MCH 27.8 MCHC 31.3 L RDW Std Deviation 52.6 H RDW Coeff of Vlad 16.3 H Plt Count 162 MPV 11.5 Neut % (Auto) Not Reportable Absolute Neuts (auto) 3.2 Absolute Lymphs (auto) 1.11 Total Counted 100 Neutrophils % (Manual) 57 Band Neutrophils % 6 H Lymphocytes % (Manual) 22 Monocytes % (Manual) 3 Eosinophils % (Manual) 4 Metamyelocytes % 4 H Myelocytes % 4 H Diff Path Review May foll Platelet Estimate ADEQUATE RBC Morphology N CHROM Anisocytosis RARE Macrocytosis RARE Ovalocytes RARE PT 12.0 INR 0.9 APTT 32.5 D-Dimer Quant (PE/DVT) 0.63 H* Sodium 136 Potassium 4.9 Chloride 107 Carbon Dioxide 30.0 Anion Gap -1 L BUN 47 H Creatinine 2.37 H Estim Creat Clear Calc 34.04 Est GFR (MDRD) Af Amer 26 L Est GFR (MDRD) Non-Af 22 L BUN/Creatinine Ratio 19.8 Glucose 407 H Lactic Acid 1.0 Calcium 8.4 L Troponin I High Sens 14 B-Natriuretic Peptide 114.4 H Urine Color Yellow Urine Clarity Cloudy Urine pH 6.0 Ur Specific [place] 1.015 Urine Protein 500 H Urine Glucose (UA) 1000 H Urine Ketones Negative Urine Occult Blood 10 H Urine Nitrite Negative Urine Bilirubin Negative Urine Urobilinogen Normal Ur Leukocyte Esterase 100 H Urine RBC 0 SEEN Urine WBC 10-25 SEEN Ur Squamous Epith Cells 10-25 SEEN Urine Bacteria 2+ Urine Mucus 0 SEEN ABG Data ABG results: ABG 08/26/23 22:29 Specimen Type ART Sample Site L Radial pH 7.19 L* Bicarbonate Actual 27.8 H Total CO2 30 Base Excess 0 O2 Saturation 97 O2 % 50.0 ABG pCO2 72.7 H* ABG pO2 115 H Madi Test Positive O2 Delivery Device BiPAP Vent Mode Not entered Crit Call To/Read Back Yes Blood Gas Notified Whom Mayra Blood Gas Notified Time 22:31:32 Clinical Comments 18/12 12 50% Radiography Chest X-Ray - ED: 1 View, Read by ED Physician, Read by Radiologist and CHF Diagnostic Testing: Portable chest x-ray was obtained. There is 1 view. On my independent interpretation, there is evidence of congestive heart failure. There is cardiomegaly noted. There is no acute infiltrate noted. Bony thorax is normal. EKG Initial EKG: Attestation: I personally reviewed and interpreted this EKG as follows: Interpretation: Sinus Rhythm (70) and Non-Specific ST Changes Comments: EKG was obtained. On my independent interpretation, it showed a normal sinus rhythm with a rate of 70. MO interval, QRS interval, and QTc intervals were all normal. [place] was normal. There are nonspecific ST-T wave changes. Prior EKG tracings: available for review Prior: Unchanged (07/15/2023) Management Discussion w/another healthcare provider: Hospitalist Additional Tests and Interventions Additional Tests or Interventions: Urine culture was ordered. Treatment and Re-Evaluation :: Patient was given a dose of Lasix. Patient was given nitroglycerin paste. Patient was given aspirin. Patient was started on BiPAP. Patient was feeling better on BiPAP. Patient was advised of the need for admission to the hospital. Patient is agreeable with this. Case was discussed with the hospitalist. He will admit the patient to ICU. Patient understood and was agreeable with the plan. All questions were answered. Critical Care Time Critical Care Time: Yes Critical care time (excluding procedures): 30-74 minutes (34), Including time spent:, Discussing w/Patient &/or Family/Information Systems Security Developer, Discussing w/Consultants, Arranging Admission or Transfer and Performing Direct Patient Care at Bedside Discharge Plan Dx/Rx/DC Orders Clinical Impression: Respiratory failure, Lower extremity edema, Chronic kidney disease, Congestive heart failure Disposition Disposition: Acute Care [facility]
[2023-08-26 21:24] LABS: Anion Gap -1 (5-15); BUN 47 mg/dL (7-18); BUN/Creat Ratio 19.8 RATIO (10-20); Calcium,Total 8.4 mg/dL (8.5-10.1); Chloride 107 mmol/L (98-107); Creatinine, Serum 2.37 mg/dL (0.55-1.02); EST Glomerular Filtration Rate 22 mL/min (>60); Est Glom Filt Rate - Afr Amer 26 mL/min (>60); Estimated Creatinine Clearance 34.04 ml/min; Glucose 407 mg/dL (74-106); Potassium 4.9 mmol/L (3.5-5.1); Sodium Level 136 mmol/L (136-145); Troponin-I HS 14 pg/mL (3.0-54.0)
[2023-08-26 21:40] LABS: International Normalized Ratio 0.9
[2023-08-26] MEDS: Furosemide 40 MG/4 ML Vial IV (21:40)
[2023-08-26 21:41] LABS: Partial Thromboplast Time 32.5 Seconds (24.1-36.2)
[2023-08-26 21:42] LABS: Eosinophil 4 % (0-5); Lymphocyte 22 % (19-41); Metamyelocyte 4 % (0-1); Monocyte 3 % (0-10); Myelocyte 4 % (0-0); Neutrophil-Band 6 % (0-5); Neutrophil-Segmented 57 % (47-70); Total Cells Counted 100 (MANUAL DIFF)
[2023-08-26 21:44] LABS: Absolute Lymphocyte Count 1.11 X10^3/uL (0.83-4.51); Absolute Neutrophil Count 3.2 X10^3/uL (2.0-7.7)
[2023-08-26 21:45] LABS: Anisocytosis RARE; Macrocytosis RARE; Ovalocyte RARE; Platelet Estimate ADEQUATE (ADEQ); Red Cell Morphology N CHROM NORMAL (NORM C&C)
[2023-08-26 21:53] LABS: BNP,B-Type NATRIURETIC PEPTIDE 114.4 pg/mL (0-100)
[2023-08-26] MEDS: Nitroglycerin Oint 1 INCH PACKET TD (21:56)
[2023-08-26] MEDS: Aspirin 81 MG TAB.CHEW 324 MG PO (22:04)
--- NOTE | 2023-08-26 22:12 | RAD_ITS ---
STUDY: X-RAY CHEST REASON FOR EXAM: Female, 63 years old. sob TECHNIQUE: Single AP portable view of the chest. COMPARISON: 07/14/2023. FINDINGS: The lungs are underexpanded with fullness of the central vascularity is, Elda B-lines and hazy densities in the hilar regions concerning for early congestive heart failure/pulmonary edema. Cannot exclude superimposed pneumonitis. There is no demonstrated pleural abnormality. There is mild cardiac enlargement. Normal mediastinum and rebekah. Normal visualized pulmonary arteries. Normal visualized aortic arch and descending thoracic aorta. There are diffuse degenerative changes of the visualized thoracic spine. Normal visualized ribs, clavicles, and shoulders. There is no demonstrated abnormality of the visualized soft tissue structures of the upper abdomen. RAD/Chest 1 View (Portable) IMPRESSION: Early congestive heart failure/pulmonary edema. Electronically Signed: Esthela Carrillo MD at 23:18 EST ,
[2023-08-26 22:34] LABS: Allen Test Positive; Base Excess 0 mmol/L (-2 to +2); Bicarbonate 27.8 mmol/L (22-26); Blood Gas Specimen Type ART; Comment 18/12 12 50%; Mode Not entered; O2 Delivery Device BiPAP; PO2 115 mmHG (75-100); SITE L Radial; SO2 97 % (95-99); Time Given 22:31:32; Total Carbon Dioxide 30 mmol/L; pCO2 72.7 mmHg (35-45); pH 7.19 (7.35-7.45)
[2023-08-26 22:36] LABS: Mucous, Urine 0 SEEN /hpf (<or=2+); Red Blood Cells-Urine 0 SEEN /hpf (0-5)
[2023-08-26 22:39] LABS: D-Dimer Quantitative (DVT/PE) 0.63 FEU/ug/m (0.27-0.49)
[2023-08-26 22:44] LABS: Color, Urine Yellow (Yellow); Glucose, Dipstick 1000 mg/dl (Normal); Ketone-Dipstick Negative (Negative); Leukocyte Esterase-Dipstick 100 /ul (Negative); Nitrite-Dipstick Negative (Negative); Occult Blood-Urine 10 /ul (Negative); Protein-Dipstick 500 mg/dl (Negative); Specific Gravity, Urine 1.015 (1.002-1.030); Urine Bilirubin Dipstick Negative (Negative); Urine Clarity Cloudy (Clear); Urine Urobilinogen Normal (Normal)
--- NOTE | 2023-08-26 22:50 | CPS ---
[2242] Pt.'s ABG indicated hypercapnia at this time. IPAP increased from 18 to 20 to help assist pt.'s ventilatory status. agreeable with change.
[2023-08-26 22:57] LABS: Bacteria 2+ /hpf (None Seen); Squamous Epithelial Cells - UA 10-25 SEEN /hpf (5-10); White Blood Cells 10-25 SEEN /hpf (0-5)
--- NOTE | 2023-08-26 23:02 | HP.PCM.HOS_ITS ---
HPI - General General Date of Admission: 08/26/23 Date of Service: 08/26/23 Chief Complaint: Gradual worsening of legs extremity for 3 to 4 weeks and shortness of breath probably for 3 weeks. HPI Narrative TOBIN BIGGS, is a 63 F with history of heart failure on patient on home oxygen 2 L during daytime and 4 L at night was brought to ED by EMS for shortness of breath. Patient has CPAP at home but it is not working. As per EMS, she co mplained of shortness of breath for past 4 days with a gradual worsening but she stated she is short of breath for about 3 weeks probably worsened over 4 days.. Denies any chest pain or pressure or discomfort. This is started with leg swelling, left leg more swollen than right for about 4 weeks. EMS blood pressure was high 176/134, blood pressure 199/82. She denies fever but had chills but. No acute cough or sputum production. Denies recent URI symptoms. In ED, blood pressure got better but patient was still short of breath on 8 L of oxygen with tachypnea therefore put on BiPAP. ABG was done which shows pH 7.19, pCO2 73, pO2 205 on BiPAP 50% FiO2. Chest x-ray individually reviewed and shows congestive changes/interstitial asthma. Patient bicarb is around 30 in previous admission and ABG showed her pCO2 was in 40s therefore it looks like acute retention of pCO2 probably from pulmonary edema. Twelve-lead EKG done shows normal sinus rhythm 70 bpm, chronic T inversion in 1 and aVL QTc 471 ms. No acute change in EKG from previous EKG of July 14, 2023 which also shows LVH with repolarization and T wave inversion in 1 and aVL. Patient was given IV furosemide 40 and further admitted in ICU. [facility] Medical History (HFpEF) heart failure with preserved ejection fraction GASTON (acute kidney injury) Anemia Anxiety Anxiety and depression Chest pain Chronic acquired lymphedema Chronic anemia Chronic kidney disease CKD (chronic kidney disease), stage III CPAP (continuous positive airway pressure) dependence Diabetes mellitus with diabetic polyneuropathy Diabetes mellitus, type 2 Gastroparesis History of diabetes mellitus History of fever HLD (hyperlipidemia) HTN (hypertension) Hypothyroidism Hypoxia Malaise Morbid obesity On home oxygen therapy SACHIN (obstructive sleep apnea) Pleural effusion, left Pulmonary edema Retinal hemorrhage Sleep apnea Home Medications atorvastatin 10 mg tablet 10 mg PO DAILY cholesterol 09/24/22 [History Last Taken 04/13/23] escitalopram oxalate 10 mg tablet 10 mg PO DAILY anxiety 09/24/22 [History Last Taken 04/13/23] fenofibrate nanocrystallized 48 mg tablet (Tricor) 48 mg PO DAILY cholesterol 09/24/22 [History Last Taken 04/13/23] furosemide 20 mg tablet (Lasix) 20 mg PO DAILY EDEMA 03/05/23 [History Last Taken 04/13/23] gabapentin 100 mg capsule 200 mg PO BID PAIN 03/05/23 [History Last Taken 04/13/23] levothyroxine 150 mcg tablet 150 mcg PO DAILY@0600 SEE PCP 03/05/23 [History Last Taken Unknown] ropinirole 4 mg tablet 4 mg PO QHS restless legs 03/05/23 [History Last Taken 05/01/23] dulaglutide 0.75 mg/0.5 mL subcutaneous pen injector (Trulicity) 0.75 mg subcut .once a week dm2 04/14/23 [History Last Taken 08/15/23] gabapentin 400 mg capsule 400 mg PO QHS SEE PCP 04/14/23 [History Last Taken 04/13/23] insulin glargine 100 unit/mL (3 mL) subcutaneous pen (Lantus Solostar U-100 Insulin) 54 unit subcut QHS SEE PCP 04/14/23 [History Last Taken Unknown] insulin lispro 100 unit/mL subcutaneous pen 1 sliding scale dose subcut TIDCM SEE PCP 04/14/23 [History Last Taken Unknown] metoclopramide HCl 5 mg tablet 5 mg PO BID SEE PCP 04/14/23 [History Last Taken Unknown] omega [id number]-fish oil 300 mg-1,000 mg capsule (Fish Oil) 1 cap PO BID VITAMIN 04/14/23 [History Last Taken 04/13/23] pen needle, diabetic 31 gauge x 1/4 (Easy Touch) 04/14/23 [History Last Taken Unknown] potassium chloride 10 mEq capsule,extended release 10 meq PO DAILY SEE PCP 04/14/23 [History Last Taken 05/01/23] artifi.tears(hypromellose)(PF) 0.3 % eye drops 1 drp EACH EYE Q2H PRN retinal hemmorage 04/15/23 [History Last Taken Unknown] pantoprazole 40 mg tablet,delayed release 40 mg PO BID #60 tabs 05/08/23 [Rx Last Taken Unknown] sucralfate 1 gram tablet (Carafate) 1 g PO BID #60 tabs 05/08/23 [Rx Last Taken Unknown] acetaminophen 325 mg tablet 650 mg PO Q6H PRN pain 08/26/23 [History Last Taken Unknown] difluprednate 0.05 % eye drops 1 drp ophthalmic (eye) .QID 08/26/23 [History Last Taken Unknown] insulin lispro 100 unit/mL subcutaneous pen 6 unit subcut TID 08/26/23 [History Last Taken Unknown] nystatin 100,000 unit/gram topical powder (Nystop) 1 applic topical BID 08/26/23 [History Last Taken Unknown] Allergy/AdvReac Type Severity Reaction Status Date / Time No Known Allergies Allergy Verified 07/14/23 18:45 Family History Mother Heart disease Hypertension Diabetes Father Prostate cancer Surgical History H/O cataract removal with insertion of prosthetic lens History of cholecystectomy History of surgery on lower extremity Social History housing: long term Smoking Status: Never smoker alcohol intake: never substance use type: does not use ROS ROS Narrative 14 system ROS was tried to and obtain but patient is on BiPAP therefore difficult to communicate. Constitutional: Reports fatigue and weakness. No fever. HEENT: Reports systems reviewed and no addt'l complaints, except as documented Respiratory/Chest: Shortness of breath progressively worsening. CVS: No chest pain or discomfort. Gastrointestinal: Mild abdominal swelling. Denies coffee ground emesis, hematemesis or vomiting Genitourinary: Denies burning urination or new urinary tract symptoms Musculoskeletal: Bilateral leg swelling. Denies acute joint pain or limited range of motion. No acute injury Neurologic: Denies seizure-like symptoms. skin: No ulcer. No rash Endocrinology: Reports systems reviewed and no addt'l complaints, except as documented Hematologic/Lymphatic: Reports systems reviewed and no addt'l complaints, except as documented Rest 14 ROS are negative except as mentioned in HPI Vital Signs Vital Signs Vital Signs: 08/26/23 20:45 08/26/23 20:53 08/26/23 20:58 Temperature 95.3 F L Temperature Source Temporal Pulse Rate 76 70 Respiratory Rate 30 H 14 Respiratory Effort Short of Breath Labored Respiratory Depth Respiratory Pattern Normal Blood Pressure 144/74 H 144/74 H Blood Pressure Mean 97 97 Pulse Ox 91 96 Oxygen Delivery Method Nasal Cannula Nasal Cannula Oxygen Flow Rate (L/min) 6 8 Fraction of Inspired Oxygen (FIO2) 08/26/23 22:14 08/26/23 22:14 08/26/23 22:18 Temperature Temperature Source Pulse Rate Respiratory Rate Respiratory Effort Normal Respiratory Depth Shallow Respiratory Pattern Tachypnea Blood Pressure Blood Pressure Mean Pulse Ox 94 94 Oxygen Delivery Method Nasal Cannula Bi-pap Bi-pap Oxygen Flow Rate (L/min) 8 Fraction of Inspired Oxygen (FIO2) 08/26/23 22:05 08/26/23 22:42 Temperature Temperature Source Pulse Rate 76 72 Respiratory Rate 21 H 17 Respiratory Effort Respiratory Depth Respiratory Pattern Tachypnea Normal Blood Pressure Blood Pressure Mean Pulse Ox 97 98 Oxygen Delivery Method Oxygen Flow Rate (L/min) Fraction of Inspired Oxygen (FIO2) 50 30 Weight Weight: 313 lb 11.485 oz Body Mass Index (BMI) 52.2 Physical Exam Narrative General: Alert, Oriented x3, Cooperative, morbid obesity BMI 52.2 kg/m2. HEENT: Atraumatic, PERRLA, EOMI, Normocephalic. Oral: On BiPAP. Could not examine mouth/oral cavity. Neck: Supple, No JVD, Negative Carotid Bruits Chest wall/Lungs: Dyspnea at rest. On BiPAP. Air entry severely diminished. Bilateral coarse crepitations. Cardiovascular: Regular rate, Regular Rhythm, Normal S1, Normal S2, No M/G/R Abdomen: Abdominal distended possible fluid. Bowel Sounds Present, Soft, Non Tender : No dysuria. No renal angle tenderness. No suprapubic tenderness. Extremities: Bilateral lower leg edema below knee, left more than right. Mild tenderness present on left calf., Capillary Refill Less than 3 Seconds Skin: No rashes, No breakdown Musculoskeletal: ROM restricted due to chronic arthritis and morbid obesity at knees and hip joints. Neurological: Cranial nerves II-XII grossly intact, DTR 2+/4. No acute focal neurological deficit. Psych/Mental Status: Flat affect. Results Lab / Micro Data 08/26/23 20:55 08/26/23 20:55 Labs: Laboratory Results - last 24 hr 08/26/23 20:55: WBC 5.0, RBC 2.91 L, Hgb 8.1 L, Hct 25.9 L, MCV 89.0, MCH 27.8, MCHC 31.3 L, RDW Std Deviation 52.6 H, RDW Coeff of Vlad 16.3 H, Plt Count 162, MPV 11.5, Neut % (Auto) Not Reportable, Absolute Neuts (auto) 3.2, Absolute Lymphs (auto) 1.11, Total Counted 100, Neutrophils % (Manual) 57, Band Neutrophils % 6 H, Lymphocytes % (Manual) 22, Monocytes % (Manual) 3, Eosinophils % (Manual) 4, Metamyelocytes % 4 H, Myelocytes % 4 H, Diff Path Review May foll, Platelet Estimate ADEQUATE, RBC Morphology N CHROM, Anisocytosis RARE, Macrocytosis RARE, Ovalocytes RARE, PT 12.0, INR 0.9, APTT 32.5, Sodium 136, Potassium 4.9, Chloride 107, Carbon Dioxide 30.0, Anion Gap -1 L, BUN 47 H, Creatinine 2.37 H, Estim Creat Clear Calc 34.04, Est GFR (MDRD) Af Amer 26 L, Est GFR (MDRD) Non-Af 22 L, BUN/Creatinine Ratio 19.8, Glucose 407 H, Lactic Acid 1.0, Calcium 8.4 L, Troponin I High Sens 14, B-Natriuretic Peptide 114.4 H 08/26/23 22:06: D-Dimer Quant (PE/DVT) 0.63 H* 08/26/23 : Urine Color Yellow, Urine Clarity Cloudy, Urine pH 6.0, Ur Specific Coffey 1.015, Urine Protein 500 H, Urine Glucose (UA) 1000 H, Urine Ketones Negative, Urine Occult Blood 10 H, Urine Nitrite Negative, Urine Bilirubin Negative, Urine Urobilinogen Normal, Ur Leukocyte Esterase 100 H, Urine RBC 0 SEEN, Urine WBC 10-25 SEEN, Ur Squamous Epith Cells 10-25 SEEN, Urine Bacteria 2+, Urine Mucus 0 SEEN ABG Data ABG results: ABG 08/26/23 22:29 Specimen Type ART Sample Site L Radial pH 7.19 L* Bicarbonate Actual 27.8 H Total CO2 30 Base Excess 0 O2 Saturation 97 O2 % 50.0 ABG pCO2 72.7 H* ABG pO2 115 H Madi Test Positive O2 Delivery Device BiPAP Vent Mode Not entered Crit Call To/Read Back Yes Blood Gas Notified Whom Mayra Blood Gas Notified Time 22:31:32 Clinical Comments 07/07 12 50% Assessment & Plan Assessment/Plan (1) Acute on chronic respiratory failure with hypoxia and hypercapnia: (2) Acute on chronic heart failure with preserved ejection fraction (HFpEF): PLAN: Plan This is a 63-year-old female being admitted for acute worsening of shortness of breath over 3 weeks and bilateral lower extremity edema consistent with acute on chronic combined respiratory failure. 1. Acute on chronic combined respiratory failure due to CHF exacerbation complicated with obstructive sleep apnea/OSH, rule out DVT/PE: Patient is being admitted in ICU on BiPAP. Initial ABG consistent with respiratory acidosis with pCO2 72.7. Repeat ABG after 2 hours shows improvement with pH 7.31 and pCO2 42.5. Previous ABG showed pCO2 42.5 at baseline. Started on furosemide 40 mg IV every 12 hourly. Heart failure core measures including intake and output, fluid restriction less than 1500 mL, daily weight monitoring, kidney and electrolytes monitoring. BNP is on baseline preoperative falsely normal probably due to morbid obesity. Information Management Specialist consult. Patient denies history of COPD but has obstructive sleep apnea and her home CPAP not working. Less likely infectious cause for respiratory failure but pneumonia workup ordered. Lactic acid normal. I do not think patient requires antibiotics but continue monitoring. Corrected D-dimer is 0.65, within limit for age. But for asymmetric leg swelling, venous duplex and VQ scan ordered. With suspicion of DVT/PE 1 dose of enoxaparin 1 mg/kg body weight ordered. Will need pulmonary follow-up as an outpatient after discharge. 2. Acute on chronic HFpEF: Patient had last echo in March 2023 which shows EF 65% with mild concentric LVH, study was technically difficult. She was last admitted for similar diagnosis of CHF exacerbation in June 2023. Patient denies chest pain pressure or history of MT or cardiac cath. Patient not on beta-daniel probably will need to restart once she is euvolemic. 3. Hypertensive emergency: Patient blood pressure was high high 176/134, blood pressure 199/82 As per EMS vitals. Eleazar improved after furosemide. Curr ently 131/64 but it meets the diagnosis of hypertensive emergency with endorgan dysfunction pulmonary edema and acute on chronic combined respiratory failure. Patient not candidate for WILDER or ARB due to CKD stage IV admission below. 4. CKD stage IV: Patient baseline creatinine runs around 2.1-2.4. It is on baseline, currently BUN/creatinine 47/2.37. Nephrology consult requested. Patient was advised to follow-up with nephrology after discharge during previous admission. UA shows WBC 10-25 cells but squamous epithelium 10-25 cells therefore urine specimen is not correct. Urine culture is ordered. Clinically patient denies dysuria or new urine symptoms. 5. Diabetes mellitus type 2 complicated with diabetic neuropathy: Glucose is high in BMP 407. Patient on high-dose of Lantus insulin at home and Humalog insulin. Humalog dose increased but Lantus insulin dose continued. Accu-Cheks ACHS, with no sliding scale.-A1c 8.7 07/15/23 6. GERD/peptic ulcer/duodenitis:EGD done on 05/07/2023 and showed an oozing gastric ulcer that was injected and treated with heater probe x 2 and acute duodenitis -Continue PPI 40 mg p.o. twice daily -Continue Carafate 7. Hypothyroidism: TSH ordered. Continue home levothyroxine 8. Dyslipidemia: Patient on fenofibrate and atorvastatin. Fasting profile tomorrow AM. 9. Other multiple comorbidities include restless leg syndrome, obstructive sleep apnea; or CPAP not working, anxiety and depression: BMI is 51.5 kg/m? increased from the previous 47.5 kg/m? blood probably mainly fluid weight. Home medication reconciliation done. PT and OT ordered. 10. DVT prophylaxis: 1 dose of Lovenox given. If PE ruled out will need to put DVT prophylaxis dose Living will/advanced directive/end of life care: Patient does not living will or advanced directive. She states her brother is power of real estate attorney for health. After discussion of benefits/risks procedures involved with full code, DNR CC arrest and DNR CC, the patient opted for full code. Patient does want artificial life support including intubation, tube feed, ventilator and/chest compression, central venous catheter, vasopressor and DC shock if needed Total time spent in [id number] encounter in discussion of advanced directive 17 minutes. Laboratory Results 08/26/23 20:55: WBC 5.0, RBC 2.91 L, Hgb 8.1 L, Hct 25.9 L, MCV 89.0, MCH 27.8, MCHC 31.3 L, RDW Std Deviation 52.6 H, RDW Coeff of Vlad 16.3 H, Plt Count 162, MPV 11.5, Neut % (Auto) Not Reportable, Absolute Neuts (auto) 3.2, Absolute Lymphs (auto) 1.11, Total Counted 100, Neutrophils % (Manual) 57, Band Neutrophils % 6 H, Lymphocytes % (Manual) 22, Monocytes % (Manual) 3, Eosi nophils % (Manual) 4, Metamyelocytes % 4 H, Myelocytes % 4 H, Diff Path Review May foll, Platelet Estimate ADEQUATE, RBC Morphology N CHROM, Anisocytosis RARE, Macrocytosis RARE, Ovalocytes RARE, PT 12.0, INR 0.9, APTT 32.5, Sodium 136, Potassium 4.9, Chloride 107, Carbon Dioxide 30.0, Anion Gap -1 L, BUN 47 H, Creatinine 2.37 H, Estim Creat Clear Calc 34.04, Est GFR (MDRD) Af Amer 26 L, Est GFR (MDRD) Non-Af 22 L, BUN/Creatinine Ratio 19.8, Glucose 407 H, Lactic Acid 1.0, Calcium 8.4 L, Troponin I High Sens 14, B-Natriuretic Peptide 114.4 H 08/26/23 22:06: D-Dimer Quant (PE/DVT) 0.63 H* 08/26/23 22:29: Specimen Type ART, Sample Site L Radial, pH 7.19 L*, Bicarbonate Actual 27.8 H, Total CO2 30, Base Excess 0, O2 Saturation 97, O2 % 50.0, ABG pCO2 72.7 H*, ABG pO2 115 H, Madi Test Positive, O2 Delivery Device BiPAP, Vent Mode Not entered, Crit Call To/Read Back Yes, Blood Gas Notified Whom Mayra Blood Gas Notified Time 22:31:32, Clinical Comments 07/07 12 50% 08/26/23 23:07: Phosphorus 3.9, Magnesium 1.7, Troponin I High Sens 11 08/26/23 : Urine Color Yellow, Urine Clarity Cloudy, Urine pH 6.0, Ur Specific Coffey 1.015, Urine Protein 500 H, Urine Glucose (UA) 1000 H, Urine Ketones Negative, Urine Occult Blood 10 H, Urine Nitrite Negative, Urine Bilirubin Negative, Urine Urobilinogen Normal, Ur Leukocyte Esterase 100 H, Urine RBC 0 SEEN, Urine WBC 10-25 SEEN, Ur Squamous Epith Cells 10-25 SEEN, Urine Bacteria 2+, Urine Mucus 0 SEEN 08/27/23 00:18: Specimen Type ART, Sample Site L Radial, pH 7.31 L, Bicarbonate Actual 26.4 H, Total CO2 28, Base Excess 0, O2 Saturation 98, ABG pCO2 52.5 H, ABG pO2 110 H, Madi Test Positive, O2 Delivery Device BiPAP, Vent Mode Not entered, Clinical Comments 09/07 12 30% Echo March 2023 Interpretation Summary Mild concentric left ventricular hypertrophy. The left ventricular ejection fraction is 65 %. Mild mitral annular calcification. The study was technically difficultAcute hypoxic respiratory failure 2/2 acute exacerbation of heart failure with preserved ejection fraction/possible viral infection - Charges/Coding Visit Charges Inpatient E&M: 20454 Init Hosp L3 Procedures Hospitalists Procedures: 63132 Advncd Care Plan 30 Min
[2023-08-26 23:57] LABS: Magnesium 1.7 mg/dL (1.6-2.6); Troponin-I HS (w/2H Reflex) 11 pg/mL (3.0-54.0)
[2023-08-27] VITALS (31 sets, daily range): BP systolic 89–134; BP diastolic 54–99; PULSE 59–70; RESP 12–23; TEMP 34.9–36.5; O2SAT 94–99; BMI 51.5
[2023-08-27 00:15] LABS: Phosphorus 3.9 mg/dL (2.5-4.9)
[2023-08-27] MEDS: Enoxaparin 150 MG/ML Syringe SC (00:26)
[2023-08-27 01:00] LABS: Allen Test Positive; Base Excess 0 mmol/L (-2 to +2); Bicarbonate 26.4 mmol/L (22-26); Blood Gas Specimen Type ART; Comment 20/12 12 30%; Mode Not entered; O2 Delivery Device BiPAP; PO2 110 mmHG (75-100); SITE L Radial; SO2 98 % (95-99); Total Carbon Dioxide 28 mmol/L; pCO2 52.5 mmHg (35-45); pH 7.31 (7.35-7.45)
--- NOTE | 2023-08-27 01:32 | VDLE_ITS ---
Reason For Study: Swelling RIGHT LEFT GSV is normal. GSV is normal. CFV is compressible, spontaneous, phasic, CFV is compressible, spontaneous, phasic, competent and demonstrates normal competent, and demonstrates normal augmentation. augmentation. FV is compressible, spontaneous, phasic, FV is compressible, spontaneous, phasic, competent and demonstrates normal competent and demonstrates normal augmentation. augmentation. POP V is compressible, spontaneous, phasic, POP V is compressible, spontaneous, phasic, competent and demonstrates normal competent and demonstrates normal augmentation. augmentation. T/P Trunk is compressible. T/P Trunk is compressible. PTV is compressible. PTV is compressible. RT PerV is compressible. LT PerV is compressible. Patient unable to tolerate compression in Patient unable to tolerate compression in the distal thigh; relied on color doppler. groin and distal thigh; relied on color Procedure doppler. This is a venous duplex using B-mode, color flow and spectral Doppler. Exam performed portable in ICU/CCU. A preliminary report was called and/or faxed to [facility] [place]. VL/Venous Duplex US - Yann Extrem Interpretation Summary Deep veins of the bilateral lower extremities are patent and compressible segme ntally. There is no evidence of bilateral lower extremity deep vein thrombosis. The bilateral great saphenous veins appear patent and compressible segmentally. Ordering Physician: Perico Casas Referring Physician: Lulu Luna Performed By: Anamika Johnson, SHASHA, RVT
[2023-08-27] MEDS: Furosemide 40 MG/4 ML Vial IV (01:49)
[2023-08-27 02:00] LABS: Bedside Glucose 401 mg/dL (74-106)
[2023-08-27] MEDS: Acetaminophen 325 MG Tablet 650 MG PO (02:11)
[2023-08-27] MEDS: Piperacil/Tazobactam 3.375 GM in 0.9% Normal Saline (50mL MB+) 50 ML IV ×3 (02:11→21:52)
[2023-08-27] MEDS: guaiFENesin 1,200 MG Tablet 1200 MG PO ×3 (02:11→21:43)
[2023-08-27] MEDS: Ipratropium/Albuterol Sulfate 3 ML AMPUL.NEB INHALATION ×6 (03:15→22:36)
[2023-08-27 03:21] LABS: Absolute Lymphocyte Count 0.93 X10^3/uL (0.83-4.51); Basophil# 0.02 X10^3/uL; Basophil% 0.3 % (0-1); Eosinophils% 3.2 % (0-5); Hematocrit 22.4 % (37-47); Hemoglobin 6.9 g/dL (12.0-15.0); Lymphocyte # 0.93 X10^3/ul (0.83-4.51); Lymphocyte % 14.9 % (19-41); Mean Corp Hgb Conc 30.8 g/dL (32-36); Mean Corpuscular Hgb 27.3 pg (27.0-32.0); Mean Corpuscular Volume 88.5 fL (81-99); Mean Platelet Vol. 11.3 fl (6.2-12.0); Monocyte# 0.71 X10^3/uL; Monocyte% 11.3 % (0-10); NRBC Flagged by Analyzer 0 % (0-5); Neutrophil # 4.04 X10^3/uL (2.7-7.7); Neutrophil % 64.5 % (47-70); POSITIVE COUNT YES; POSITIVE MORPHOLOGY YES; Platelet Count 131 K/mm3 (150-450); RBC Distribution Width CV 16.4 % (11.6-14.6); RBC Distribution Width SD 51.8 fl (35.1-43.9); Red Blood Count 2.53 M/mm3 (4.2-5.4); White Blood Count 6.3 K/mm3 (4.4-11.0)
[2023-08-27 03:44] LABS: Anion Gap -1 (5-15); BUN 49 mg/dL (7-18); BUN/Creat Ratio 21.2 RATIO (10-20); Calcium,Total 8.2 mg/dL (8.5-10.1); Chloride 107 mmol/L (98-107); Cholesterol 144 mg/dL (200); Creatinine, Serum 2.31 mg/dL (0.55-1.02); EST Glomerular Filtration Rate 23 mL/min (>60); Est Glom Filt Rate - Afr Amer 27 mL/min (>60); Estimated Creatinine Clearance 34.63 ml/min; Glucose 419 mg/dL (74-106); High Density Lipoprotein 49 mg/dL; Potassium 4.8 mmol/L (3.5-5.1); Sodium Level 137 mmol/L (136-145); Triglycerides 286 mg/dL; Very Low Density Lipoprotein 57 mg/dL (5-40)
[2023-08-27 03:46] LABS: Troponin-I HS 13 pg/mL (3.0-54.0)
[2023-08-27 04:04] LABS: Differential Indicated SCAN CRITERIA MET
[2023-08-27 04:33] LABS: Differential Comment SCANNED
[2023-08-27] MEDS: Gabapentin 100 MG Capsule 200 MG PO (05:56)
[2023-08-27] MEDS: Sucralfate 1 GM Tablet PO ×2 (05:56→15:57)
[2023-08-27] MEDS: Levothyroxine 150 MCG Tablet PO (05:56)
--- NOTE | 2023-08-27 06:33 | CON.PCM.CC_ITS ---
Assessment & Plan Assessment/Plan (1) Acute on chronic respiratory failure with hypoxia and hypercapnia: PLAN: Plan RECOMMENDATIONS: 1. Continue to wean supplemental oxygen as tolerated. 2. Recommend BiPAP therapy with naps and nightly. 3. Continue empiric antibiotics. 4. Encourage incentive spirometer use and mobilize patient as tolerated. 5. Perform ambulatory walking oximetry study prior to discharge home. 6. Given elevated TSH, check free T4 level. 7. Transfuse for hemoglobin less than 7 g/dL. Continue PPI therapy. 8. Again, recommend outpatient pulmonary follow-up for further optimization. The patient would benefit from a retitration polysomnogram. IMPRESSIONS: 1. Acute on chronic combined respiratory failure Most likely secondary to noncompliance with prescribed outpatient therapy. The patient may have an element of alveolar hypoventilation secondary to obesity coupled with known obstructive sleep apnea, for which the patient has been noncompliant with the use of CPAP therapy. On several occasions, the patient has been referred to the pulmonary office for further workup and management of her sleep apnea, but has failed to follow-up. She utilizes 2 L/min of supplemental oxygen throughout the day and 4 L/min nightly. The patient has responded to the use of noninvasive positive pressure ventilatory support. She is back to her baseline from a respiratory perspective following BiPAP therapy a nd gentle diuresis. In the interim, continue to wean supplemental oxygen as tolerated. Encourage incentive spirometer use and mobilize patient as tolerated. Continue PAP therapy with naps and nightly. 2. Anemia Hemoglobin dropped to 6.9 g/dL this morning. Plan to send type and screen and transfuse 1 unit of packed red blood cells. Continue to monitor H&H and transf use for hemoglobin less than 7 g/dL. Continue PPI therapy as ordered. Low threshold to consult gastroenterology, if anemia worsens. 3. Morbid obesity/medical noncompliance/hypertension/diabetes mellitus/hypothyroidism/chronic kidney disease/GERD Complicates care, management, recovery and prognosis. Continue home medications as indicated. This note was generated with [employer] dictation software. It may contain incorrect words, spelling, and punctuation that were not noted in checking the note before signing. HPI Consult Data Date of Consult: 08/27/23 HPI Narrative Reason for Consultation: Acute combined respiratory failure HPI Narrative: The patient is a 63-year-old female, with a history as outlined below, who presented to the emergency department via EMS on August 26 with shortness of breath and orthopnea. The patient had just been discharged from the hospital on July 18, 2023 under similar circumstances after presenting with shortness of breath, in the setting of hypertensive urgency. She has a history of sleep apnea with PAP noncompliance. In addition, she has chronic hypoxemic respiratory failure with supplemental oxygen noncompliance. Her medical history is also significant for hypertension, diabetes mellitus, hypothyroidism, chronic kidney disease, GERD and hyperlipidemia. It should be noted that from a pulmonary perspective, the patient was scheduled to follow-up in our office on July 24. However, she no showed for her appointment. The patient reported that she was unaware of this appointment. She did confirm to me that her CPAP is no longer functional. Accordingly, she has been noncompliant with his nightly use. She did confirm that she has been utilizing supplemental oxygen at 2 L/min during the day and 4 L/min nightly. On presentation to the emergency department, the patient was documented to have a temperature of 95.3 ?F. She was tachypneic but otherwise hemodynamically stable and maintaining appropriate oxygen saturations on nasal cannula O2. Initial laboratory evaluation revealed no evidence of a leukocytosis. Initial hemoglobin was noted to be 8.1 g/dL with a platelet count of 162,000. Arterial blood gas demonstrated a pH of 7.2 with a pCO2 of 72 and pO2 of 115. Chemistry profile was notable for a BUN of 47 and creatinine of 2.37. Lactate was normal. BNP was mildly elevated at 114. TSH was increased to 48.9. Urine analysis was positive for leukocyte esterase and 2+ urine bacteria. Chest x-ray demonstrated cardiomegaly with concern for early pulmonary edema. Respiratory viral panel was negative. COVID, influenza and RSV PCR's were negative. Blood and urine cultures are pending. The patient was initiated on diuretics, antibiotics and BiPAP therapy. She was subsequently admitted to the medical intensive care unit for further management. Surface echocardiogram completed in March 2023 demonstrated normal LV size with an ejection fraction of 65%. RVSP was unable to be estimated. [facility] Medical History (HFpEF) heart failure with preserved ejection fraction GASTON (acute kidney injury) Anemia Anxiety Anxiety and depression Chest pain Chronic acquired lymphedema Chronic anemia Chronic kidney disease CKD (chronic kidney disease), stage III CPAP (continuous positive airway pressure) dependence Diabetes mellitus with diabetic polyneuropathy Diabetes mellitus, type 2 Gastroparesis History of diabetes mellitus History of fever HLD (hyperlipidemia) HTN (hypertension) Hypothyroidism Hypoxia Malaise Morbid obesity On home oxygen therapy SACHIN (obstructive sleep apnea) Pleural effusion, left Pulmonary edema Retinal hemorrhage Sleep apnea Home Medications atorvastatin 10 mg tablet 10 mg PO DAILY cholesterol 09/24/22 [History Last Taken 04/13/23] escitalopram oxalate 10 mg tablet 10 mg PO DAILY anxiety 09/24/22 [History Last Taken 04/13/23] fenofibrate nanocrystallized 48 mg tablet (Tricor) 48 mg PO DAILY cholesterol 09/24/22 [History Last Taken 04/13/23] furosemide 20 mg tablet (Lasix) 20 mg PO DAILY EDEMA 03/05/23 [History Last Take n 04/13/23] gabapentin 100 mg capsule 200 mg PO BID PAIN 03/05/23 [History Last Taken 04/13/23] levothyroxine 150 mcg tablet 150 mcg PO DAILY@0600 SEE PCP 03/05/23 [History Last Taken Unknown] ropinirole 4 mg tablet 4 mg PO QHS restless legs 03/05/23 [History Last Taken 05/01/23] dulaglutide 0.75 mg/0.5 mL subcutaneous pen injector (Trulicity) 0.75 mg subcut .once a week dm2 04/14/23 [History Last Taken 08/15/23] gabapentin 400 mg capsule 400 mg PO QHS SEE PCP 04/14/23 [History Last Taken 04/13/23] insulin glargine 100 unit/mL (3 mL) subcutaneous pen (Lantus Solostar U-100 Insulin) 54 unit subcut QHS SEE PCP 04/14/23 [History Last Taken Unknown] insulin lispro 100 unit/mL subcutaneous pen 1 sliding scale dose subcut TIDCM SEE PCP 04/14/23 [History Last Taken Unknown] metoclopramide HCl 5 mg tablet 5 mg PO BID SEE PCP 04/14/23 [History Last Taken Unknown] omega 3-oiu-glp-fish oil 300 mg-1,000 mg capsule (Fish Oil) 1 cap PO BID VITAMIN 04/14/23 [History Last Taken 04/13/23] pen needle, diabetic 31 gauge x 1/4 (Easy Touch) 04/14/23 [History Last Taken Unknown] potassium chloride 10 mEq capsule,extended release 10 meq PO DAILY SEE PCP 04/14/23 [History Last Taken 05/01/23] artifi.tears(hypromellose)(PF) 0.3 % eye drops 1 drp EACH EYE Q2H PRN retinal hemmorage 04/15/23 [History Last Taken Unknown] pantoprazole 40 mg tablet,delayed release 40 mg PO BID #60 tabs 05/08/23 [Rx Last Taken Unknown] sucralfate 1 gram tablet (Carafate) 1 g PO BID #60 tabs 05/08/23 [Rx Last Taken Unknown] acetaminophen 325 mg tablet 650 mg PO Q6H PRN pain 08/26/23 [History Last Taken Unknown] difluprednate 0.05 % eye drops 1 drp ophthalmic (eye) .QID 08/26/23 [History Last Taken Unknown] insulin lispro 100 unit/mL subcutaneous pen 6 unit subcut TID 08/26/23 [History Last Taken Unknown] nystatin 100,000 unit/gram topical powder (Nystop) 1 applic topical BID 08/26/23 [History Last Taken Unknown] Allergy/AdvReac Type Severity Reaction Status Date / Time No Known Allergies Allergy Verified 07/14/23 18:45 Family History Mother Heart disease Hypertension Diabetes Father Prostate cancer Surgical History H/O cataract removal with insertion of prosthetic lens History of cholecystectomy History of surgery on lower extremity Social History housing: [facility] Smoking Status: Never smoker alcohol intake: never substance use type: does not use ROS ROS Narrative 10 systems were reviewed with pertinent positives as noted in the HPI above. Physical Exam Const alert and no apparent distress Constitutional Narrative: Morbidly obese. General Appearance: cooperative HEENT normocephalic and head/scalp atraumatic Eyes PERRL, EOMs intact bilaterally and conjunctivae normal Neck supple General: trachea midline Chest inspection of chest normal Resp normal respiratory effort Auscultation: diminished lung sounds; Negative for rales, rhonchi or wheezes Cardio regular rate and regular rhythm GI normal to inspection, nondistended, normoactive bowel sounds Extremity General Extremity: edema bilateral lower extremity; Negative for clubbing Skin no rashes or lesions noted Neuro CN's II-XII intact bilaterally and no focal motor deficits Psych Mood & Affect: flat affect Lab / Micro Data 08/27/23 03:10 08/27/23 03:10 Labs: Laboratory Results - last 24 hr 08/26/23 20:55: WBC 5.0, RBC 2.91 L, Hgb 8.1 L, Hct 25.9 L, MCV 89.0, MCH 27.8, MCHC 31.3 L, RDW Std Deviation 52.6 H, RDW Coeff of Vlad 16.3 H, Plt Count 162, MPV 11.5, Neut % (Auto) Not Reportable, Absolute Neuts (auto) 3.2, Absolute Lymphs (auto) 1.11, Total Counted 100, Neutrophils % (Manual) 57, Band Neutrophils % 6 H, Lymphocytes % (Manual) 22, Monocytes % (Manual) 3, Eosinophils % (Manual) 4, Metamyelocytes % 4 H, Myelocytes % 4 H, Diff Path Review May foll, Platelet Estimate ADEQUATE, RBC Morphology N CHROM, Anisocyt osis RARE, Macrocytosis RARE, Ovalocytes RARE, PT 12.0, INR 0.9, APTT 32.5, Sodium 136, Potassium 4.9, Chloride 107, Carbon Dioxide 30.0, Anion Gap -1 L, BUN 47 H, Creatinine 2.37 H, Estim Creat Clear Calc 34.04, Est GFR (MDRD) Af Amer 26 L, Est GFR (MDRD) Non-Af 22 L, BUN/Creatinine Ratio 19.8, Glucose 407 H, Lactic Acid 1.0, Calcium 8.4 L, Troponin I High Sens 14, B-Natriuretic Peptide 114.4 H 08/26/23 22:06: D-Dimer Quant (PE/DVT) 0.63 H* 08/26/23 23:07: Phosphorus 3.9, Magnesium 1.7, Troponin I High Sens 11 08/26/23 : Urine Color Yellow, Urine Clarity Cloudy, Urine pH 6.0, Ur Specific [place] 1.015, Urine Protein 500 H, Urine Glucose (UA) 1000 H, Urine Ketones Negative, Urine Occult Blood 10 H, Urine Nitrite Negative, Urine Bilirubin Negative, Urine Urobilinogen Normal, Ur Leukocyte Esterase 100 H, Urine RBC 0 SEEN, Urine WBC 10-25 SEEN, Ur Squamous Epith Cells 10-25 SEEN, Urine Bacteria 2+, Urine Mucus 0 SEEN 08/27/23 01:25: POC Glucose 401 H 08/27/23 03:10: WBC 6.3, RBC 2.53 L, Hgb 6.9 L, Hct 22.4 L, MCV 88.5, MCH 27.3, MCHC 30.8 L, RDW Std Deviation 51.8 H, RDW Coeff of Vlad 16.4 H, Plt Count 131 L, MPV 11.3, Immature Gran % (Auto) 5.800 H, Neut % (Auto) 64.5, Lymph % (Auto) 14.9 L, [place] % (Auto) 11.3 H, Eos % (Auto) 3.2, Baso % (Auto) 0.3, Absolute Neuts (auto) 4.0, Absolute Lymphs (auto) 0.93, Nucleated RBC % 0, Differential Comment SCANNED, Diff Path Review November, Sodium 137, Potassium 4.8, Chloride 107, Carbon Dioxide 31.0, Anion Gap -1 L, BUN 49 H, Creatinine 2.31 H, Estim Creat Clear Calc 34.63, Est GFR (MDRD) Af Amer 27 L, Est GFR (MDRD) Non-Af 23 L, BUN/Creatinine Ratio 21.2 H, Glucose 419 H, Calcium 8.2 L, Troponin I High Sens 13, Triglycerides 286 H, Cholesterol 144, LDL Cholesterol 38, VLDL Cholesterol 57 H, HDL Cholesterol 49, TSH 48.90 H Micro: Microbiology 08/27/23 01:35 Mucosa - Nasopharyngeal Respiratory Panel (PCR) - Final 08/27/23 01:50 Urine, Clean Catch Legionella Antigen - Final 08/27/23 01:50 Urine, Clean Catch Streptococcus pneumoniae Antigen (M - Final 08/27/23 01:35 Mucosa - Nasopharyngeal SARS-CoV-2, Influenza & RSV (PCR) - Final ABG Data ABG results: ABG 08/26/23 08/27/23 22:29 00:18 Specimen Type ART ART Sample Site L Radial L Radial pH 7.19 L* 7.31 L Bicarbonate Actual 27.8 H 26.4 H Total CO2 30 28 Base Excess 0 0 O2 Saturation 97 98 O2 % 50.0 ABG pCO2 72.7 H* 52.5 H ABG pO2 115 H 110 H Madi Test Positive Positive O2 Delivery Device BiPAP BiPAP Vent Mode Not entered Not entered Crit Call To/Read Back Yes Blood Gas Notified Whom Mayra Blood Gas Notified Time 22:31:32 Clinical Comments 07/07 12 50% 09/07 12 30% Imaging Radiology Impression Chest X-Ray 08/26/23 22:12 IMPRESSION: Early congestive heart failure/pulmonary edema. Electronically Signed: Esthela Carrillo MD at 23:18 EST , Charges/Coding Visit Charges Inpatient E&M: 83103 Init Hosp L3
[2023-08-27 07:04] LABS: T4 Free Direct 0.73 ng/dL (0.76-1.46)
[2023-08-27 08:23] LABS: M R Staph aureus DNA By PCR Negative (Negative); Probe Check PASS; Specimen Processing Control PASS
--- NOTE | 2023-08-27 08:30 | NM_ITS ---
CLINICAL: 63-year-old female with history of shortness of breath. VENTILATION-PERFUSION LUNG SCINTIGRAPHY COMPARISON: Plain film chest radiograph report 08/26/2023 FINDINGS: The patient was administered 52.0 mCi 99m Tc DTPA aerosol. The aerosol ventilation study demonstrates heterogeneous ventilation in the left lung without corresponding consolidative radiographic changes visualized on review of plain film chest x-ray dated 08/26/2023. Relatively uniform ventilation is defined in the right lung. Central clumping of the aerosol is not identified. Following the intravenous administration of 5.8 mCi of 99m Tc MAA, the pulmonary perfusion study reveals matching non-uniform perfusion in the left lung correlating with the previously defined ventilation pattern. No moderate subsegmental or large segmental ventilation-perfusion mismatches are noted. There is relative preservation of perfusion in the right lung. NM/Lung Scan Vent/Perf IMPRESSION: 1. VERY LOW PROBABILITY FOR PULMONARY EMBOLUS (<10%) 99m Tc DTPA aerosol ventilation / 99m Tc MAA pulmonary perfusion imaging examination, according to PIOPED II interpretive criteria with regard given to the presence of > 2 ventilation-perfusion matches without corresponding radiographic changes. (Sotsman et al, Radiology 246: 941, 2008 Sotsman et al, J Nucl Med 49: 1741, 2008). Electronically Signed: Pierce Baker DO at 9:26 EST ,
[2023-08-27 08:47] LABS: Reflex Troponin-HS? (from REC) N
[2023-08-27] MEDS: Insulin Lispro 100 UNIT/ML INSULN.PEN 15 UNIT SC ×3 (09:25→18:01)
[2023-08-27] MEDS: Insulin Lispro 100 UNIT/ML INSULN.PEN SC ×3 (09:26→18:03)
[2023-08-27] MEDS: Pantoprazole Sodium 40 MG Tablet PO ×2 (09:27→21:43)
[2023-08-27] MEDS: Fenofibrate 48 MG Tablet PO (09:27)
[2023-08-27] MEDS: Potassium Chloride Oral Tablet 10 MEQ PO (09:27)
[2023-08-27] MEDS: Escitalopram Oxalate 10 MG Tablet PO (09:27)
[2023-08-27 09:41] LABS: Bedside Glucose 290 mg/dL (74-106)
[2023-08-27 10:09] LABS: Hematocrit 21.7 % (37-47); Hemoglobin 6.7 g/dL (12.0-15.0)
--- NOTE | 2023-08-27 11:05 | CON.PCM.RE_ITS ---
Assessment & Plan Assessment/Plan (1) History of renal insufficiency: (2) GASTON (acute kidney injury): PLAN: Baseline creatinine appears to be around 1.5-2 with several fluctuations. Urine analysis shows significant amount of proteinuria, few WBC, few RBCs. In March she had serologic workup, ANCA negative, serum protein electrophor esis negative, double-stranded DNA negative I will send a urine protein creatinine ratio, urine immunofixation and anti-GBM antibody Renal ultrasound was negative. Currently denies any obstructive symptoms. Acute renal failure is likely hemodynamic. Other workup Previous echocardiogram with preserved ejection fraction, pulmonary hypertension could not be assessed due to insufficient tricuspid regurgitation flow BNP is on the lower side at 110, although this could be artificially low in someone with morbid obesity Chest x-ray does show edema/infiltrates. Clinically she does have moderate amount of peripheral edema. JVD could not be assessed. Discussed with ICU attending. She has received a dose of IV Lasix and is symptomatically better. Blood pressure values are borderline. For today hold Lasix. If blood pressure is stable, we will resume IV Lasix may be tomorrow. Rest of the workup ordered. HPI Consult Data Date of Consult: 08/27/23 HPI Narrative Reason for Consultation: Acute renal failure HPI Narrative: TOBIN BIGGS, is a 63 F who presents to the hospital with shortness of breath. Nephrology on consultation in view of acute renal failure. She is known to us from previous visits. She has known history of CKD stage IIIb, baseline creatinine around 1.5-1.8. Lives at [facility], seen by a physician over there. She says lower extremity edema has been getting worse, associated shortness of breath over the last several days. She does not check her weight at home. Usually walks around with a walker. Does not know baseline weight. Denies any urinary complaints. Overnight she was transferred to the ICU for shortness of breath. Received 1 dose of IV Lasix. Symptomatically better. [facility] Medical History (Updated 08/27/23 @ 11:[address] Jose Luis Lechuga MD) (HFpEF) heart failure with preserved ejection fraction GASTON (acute kidney injury) Anemia Anxiety Anxiety and depression Chest pain Chronic acquired lymphedema Chronic anemia Chronic kidney disease CKD (chronic kidney disease), stage III CPAP (continuous positive airway pressure) dependence Diabetes mellitus with diabetic polyneuropathy Diabetes mellitus, type 2 Gastroparesis History of diabetes mellitus History of fever HLD (hyperlipidemia) HTN (hypertension) Hypothyroidism Hypoxia Malaise Morbid obesity On home oxygen therapy SACHIN (obstructive sleep apnea) Pleural effusion, left Pulmonary edema Retinal hemorrhage Sleep apnea Home Medications atorvastatin 10 mg tablet 10 mg PO DAILY cholesterol 09/24/22 [History Last Taken 04/13/23] escitalopram oxalate 10 mg tablet 10 mg PO DAILY anxiety 09/24/22 [History Last Taken 04/13/23] fenofibrate nanocrystallized 48 mg tablet (Tricor) 48 mg PO DAILY cholesterol 09/24/22 [History Last Taken 04/13/23] furosemide 20 mg tablet (Lasix) 20 mg PO DAILY EDEMA 03/05/23 [History Last Taken 04/13/23] gabapentin 100 mg capsule 200 mg PO BID PAIN 03/05/23 [History Last Taken 04/13/23] levothyroxine 150 mcg tablet 150 mcg PO DAILY@0600 SEE PCP 03/05/23 [History Last Taken Unknown] ropinirole 4 mg tablet 4 mg PO QHS restless legs 03/05/23 [History Last Taken 05/01/23] dulaglutide 0.75 mg/0.5 mL subcutaneous pen injector (Trulicity) 0.75 mg subcut .once a week dm2 04/14/23 [History Last Taken 08/15/23] gabapentin 400 mg capsule 400 mg PO QHS SEE PCP 04/14/23 [History Last Taken 04/13/23] insulin glargine 100 unit/mL (3 mL) subcutaneous pen (Lantus Solostar U-100 Insulin) 54 unit subcut QHS SEE PCP 04/14/23 [History Last Taken Unknown] insulin lispro 100 unit/mL subcutaneous pen 1 sliding scale dose subcut TIDCM SEE PCP 04/14/23 [History Last Taken Unknown] metoclopramide HCl 5 mg tablet 5 mg PO BID SEE PCP 04/14/23 [History Last Taken Unknown] omega 1-ejh-gvo-fish oil 300 mg-1,000 mg capsule (Fish Oil) 1 cap PO BID VITAMIN 04/14/23 [History Last Taken 04/13/23] pen needle, diabetic 31 gauge x 1/4 (Easy Touch) 04/14/23 [History Last Taken Unknown] potassium chloride 10 mEq capsule,extended release 10 meq PO DAILY SEE PCP 04/14/23 [History Last Taken 05/01/23] artifi.tears(hypromellose)(PF) 0.3 % eye drops 1 drp EACH EYE Q2H PRN retinal hemmorage 04/15/23 [History Last Taken Unknown] pantoprazole 40 mg tablet,delayed release 40 mg PO BID #60 tabs 05/08/23 [Rx Last Taken Unknown] sucralfate 1 gram tablet (Carafate) 1 g PO BID #60 tabs 05/08/23 [Rx Last Taken Unknown] acetaminophen 325 mg tablet 650 mg PO Q6H PRN pain 08/26/23 [History Last Taken Unknown] difluprednate 0.05 % eye drops 1 drp ophthalmic (eye) .QID 08/26/23 [History Last Taken Unknown] insulin lispro 100 unit/mL subcutaneous pen 6 unit subcut TID 08/26/23 [History Last Taken Unknown] nystatin 100,000 unit/gram topical powder (Nystop) 1 applic topical BID 08/26/23 [History Last Taken Unknown] Allergy/AdvReac Type Severity Reaction Status Date / Time No Known Allergies Allergy Verified 07/14/23 18:45 Family History Mother Heart disease Hypertension Diabetes Father Prostate cancer Surgical History H/O cataract removal with insertion of prosthetic lens History of cholecystectomy History of surgery on lower extremity Social History housing: custodial Smoking Status: Never smoker alcohol intake: never substance use type: does not use ROS ROS Narrative Negative except above Physical Exam Narrative Alert awake oriented x 3 no obvious distress no pallor no icterus no JVD s1s2 no murmurs lungs clear abdomen soft no organomegaly no edema no cyanosis Lab / Micro Data 08/27/23 09:50 08/27/23 03:10 Labs: Laboratory Results - last 24 hr 08/26/23 20:55: WBC 5.0, RBC 2.91 L, Hgb 8.1 L, Hct 25.9 L, MCV 89.0, MCH 27.8, MCHC 31.3 L, RDW Std Deviation 52.6 H, RDW Coeff of Vlad 16.3 H, Plt Count 162, MPV 11.5, Neut % (Auto) Not Reportable, Absolute Neuts (auto) 3.2, Absolute Lymphs (auto) 1.11, Total Counted 100, Neutrophils % (Manual) 57, Band Neutrophils % 6 H, Lymphocytes % (Manual) 22, Monocytes % (Manual) 3, Eo sinophils % (Manual) 4, Metamyelocytes % 4 H, Myelocytes % 4 H, Diff Path Review May foll, Platelet Estimate ADEQUATE, RBC Morphology N CHROM, Anisocytosis RARE, Macrocytosis RARE, Ovalocytes RARE, PT 12.0, INR 0.9, APTT 32.5, Sodium 136, Potassium 4.9, Chloride 107, Carbon Dioxide 30.0, Anion Gap -1 L, BUN 47 H, Creatinine 2.37 H, Estim Creat Clear Calc 34.04, Est GFR (MDRD) Af Amer 26 L, Est GFR (MDRD) Non-Af 22 L, BUN/Creatinine Ratio 19.8, Glucose 407 H, Lactic Acid 1.0, Calcium 8.4 L, Troponin I High Sens 14, B-Natriuretic Peptide 114.4 H 08/26/23 22:06: D-Dimer Quant (PE/DVT) 0.63 H* 08/26/23 23:07: Phosphorus 3.9, Magnesium 1.7, Troponin I High Sens 11 08/26/23 : Urine Color Yellow, Urine Clarity Cloudy, Urine pH 6.0, Ur Specific [place] 1.015, Urine Protein 500 H, Urine Glucose (UA) 1000 H, Urine Ketones Negative, Urine Occult Blood 10 H, Urine Nitrite Negative, Urine Bilirubin Negative, Urine Urobilinogen Normal, Ur Leukocyte Esterase 100 H, Urine RBC 0 SEEN, Urine WBC 10-25 SEEN, Ur Squamous Epith Cells 10-25 SEEN, Urine Bacteria 2+, Urine Mucus 0 SEEN 08/27/23 01:25: POC Glucose 401 H 08/27/23 01:35: MRSA (PCR) Negative 08/27/23 03:10: WBC 6.3, RBC 2.53 L, Hgb 6.9 L, Hct 22.4 L, MCV 88.5, MCH 27.3, MCHC 30.8 L, RDW Std Deviation 51.8 H, RDW Coeff of Vlad 16.4 H, Plt Count 131 L, MPV 11.3, Immature Gran % (Auto) 5.800 H, Neut % (Auto) 64.5, Lymph % (Auto) 14.9 L, [place] % (Auto) 11.3 H, Eos % (Auto) 3.2, Baso % (Auto) 0.3, Absolute N euts (auto) 4.0, Absolute Lymphs (auto) 0.93, Nucleated RBC % 0, Differential Comment SCANNED, Diff Path Review November, Sodium 137, Potassium 4.8, Chloride 107, Carbon Dioxide 31.0, Anion Gap -1 L, BUN 49 H, Creatinine 2.31 H, Estim Creat Clear Calc 34.63, Est GFR (MDRD) Af Amer 27 L, Est GFR (MDRD) Non-Af 23 L, BUN/Creatinine Ratio 21.2 H, Glucose 419 H, Calcium 8.2 L, Troponin I High Sens 13, Triglycerides 286 H, Cholesterol 144, LDL Cholesterol 38, VLDL Cholesterol 57 H, HDL Cholesterol 49, TSH 48.90 H, Free T4 0.73 L 08/27/23 06:45: Blood Type B POSITIVE, Antibody Screen NEGATIVE, Crossmatch See Detail 08/27/23 06:50: Procalcitonin 0.10 H 08/27/23 09:22: POC Glucose 290 H 08/27/23 09:50: Hgb 6.7 L, Hct 21.7 L Micro: Microbiology 08/27/23 01:35 Mucosa - Nasopharyngeal Respiratory Panel (PCR) - Final 08/27/23 01:50 Urine, Clean Catch Legionella Antigen - Final 08/27/23 01:50 Urine, Clean Catch Streptococcus pneumoniae Antigen (M - Final 08/27/23 01:35 Mucosa - Nasopharyngeal SARS-CoV-2, Influenza & RSV (PCR) - Final ABG Data ABG results: ABG 08/26/23 08/27/23 22:29 00:18 Specimen Type ART ART Sample Site L Radial L Radial pH 7.19 L* 7.31 L Bicarbonate Actual 27.8 H 26.4 H Total CO2 30 28 Base Excess 0 0 O2 Saturation 97 98 O2 % 50.0 ABG pCO2 72.7 H* 52.5 H ABG pO2 115 H 110 H Madi Test Positive Positive O2 Delivery Device BiPAP BiPAP Vent Mode Not entered Not entered Crit Call To/Read Back Yes Blood Gas Notified Whom Schwiger Blood Gas Notified Time 22:31:32 Clinical Comments 07/07 12 50% 09/07 12 30% Imaging Radiology Impression Chest X-Ray 08/26/23 22:12 IMPRESSION: Early congestive heart failure/pulmonary edema. Electronically Signed: Esthela Carrillo MD at 23:18 EST , Lung Scan-VQ NM 08/27/23 08:30 IMPRESSION: 1. VERY LOW PROBABILITY FOR PULMONARY EMBOLUS (<10%) 99m Tc DTPA aerosol ventilation / 99m Tc MAA pulmonary perfusion imaging examination, according to PIOPED II interpretive criteria with regard given to the presence of > 2 ventilation-perfusion matches without corresponding radiographic changes. (Sotsman et al, Radiology 246: 941, 2008 Sogabriela et al, J Nucl Med 49: 1741, 2008). Electronically Signed: Pierce Baker DO at 9:26 EST ,
--- NOTE | 2023-08-27 11:30 | CASEMGMT ---
Discharge Planning Updates faxed to [facility]. Louise King, Discharge Planning Asst.
[2023-08-27] MEDS: 0.9% Saline Lock 10 ML Syringe IV ×2 (12:07→13:40)
[2023-08-27 12:43] LABS: Bedside Glucose 285 mg/dL (74-106)
[2023-08-27 12:54] LABS: Protein, Urine (Random) 450.3 mg/dL (<11.9); Protein:Creat Ratio 9768 mg/g CRE (0-200)
--- NOTE | 2023-08-27 12:55 | CASEMGMT ---
SW met with patient. Introduced self and role at [facility]. SW asked patient about her cpap machine not working. Patient said it recently started acting up. Patient stated it is from [employer]. SW will check with CLEM MELARA on getting [employer] to look at patient's cpap machine. Varsha Villatoro BUSINESS APPLICATIONS DEVELOPER RUBY
--- NOTE | 2023-08-27 13:03 | CASEMGMT ---
WES called [facility] to notify them of patient's admission. Patient has a different case filler now. Patient's case filler is Evelyne Shields. Varsha BELTRAN
[2023-08-27] MEDS: 0.9% Normal Saline (500mL Bag) 500 ML 15 ML IV (13:40)
--- NOTE | 2023-08-27 15:28 | PCM.PN.HOSP ---
Reason for Visit Reason for Visit: Diagnoses Acute on chronic diastolic (congestive) heart failure (08/26/23) Acute and chronic respiratory failure with hypoxia (08/26/23) Acute and chronic respiratory failure with hypercapnia (08/26/23) Acute kidney failure, unspecified (08/26/23) Personal history of other diseases of urinary system (08/26/23) Subjective Subjective Patient admitted yesterday evening for concern for heart failure exacerbation. Seen at bedside this morning. Patient was sitting up in bed, conversing normally during our encounter. She did have mildly increased work of breathing noted on 2 L nasal cannula, though her oxygen saturations remained in the mid to upper 90s. Patient states that she continues to feel like her legs are more swollen than normal, same as on admission. She does report feeling slightly more fatigued today than yesterday. She otherwise denies any chest pain or abdominal pain. Denies any fevers or chills. No other acute concerns this time. Objective Data Objective Data Vital Signs: Vital Signs Temp Pulse Resp BP Pulse Ox O2 Del Method O2 Flow Rate 95.6 F L 70 12 108/60 97 Nasal Cannula 2 08/27/23 14:46 08/27/23 14:46 08/27/23 14:46 08/27/23 14:46 08/27/23 14:46 08/27/23 14:46 08/27/23 14:46 FiO2 30 08/27/23 05:00 Oxygen Flow Rate (L/min) 2 Oxygen Delivery Method Nasal Cannula Weight: 140.4 kg Body Mass Index (BMI) 51.5 Intake & Output: Intake and Output for Last 24 Hours 08/25/23 08/26/23 08/27/23 23:59 23:59 23:59 Intake Total 530 / 530 Output Total 900 / 900 Balance -370 / -370 Lab / Micro Data 08/27/23 09:50 08/27/23 03:10 Labs: Laboratory Results - last 24 hr 08/26/23 20:55: WBC 5.0, RBC 2.91 L, Hgb 8.1 L, Hct 25.9 L, MCV 89.0, MCH 27.8, MCHC 31.3 L, RDW Std Deviation 52.6 H, RDW Coeff of Vlad 16.3 H, Plt Count 162, MPV 11.5, Neut % (Auto) Not Reportable, Absolute Neuts (auto) 3.2, Absolute Lymphs (auto) 1.11, Total Counted 100, Neutrophils % (Manual) 57, Band Neutrophils % 6 H, Lymphocytes % (Manual) 22, Monocytes % (Manual) 3, Eosinophils % (Manual) 4, Metamyelocytes % 4 H, Myelocytes % 4 H, Diff Path Review May foll, Platelet Estimate ADEQUATE, RBC Morphology N CHROM, Anisocytosis RARE, Macrocytosis RARE, Ovalocytes RARE, PT 12.0, INR 0.9, APTT 32.5, Sodium 136, Potassium 4.9, Chloride 107, Carbon Dioxide 30.0, Anion Gap -1 L, BUN 47 H, Creatinine 2.37 H, Estim Creat Clear Calc 34.04, Est GFR (MDRD) Af Amer 26 L, Est GFR (MDRD) Non-Af 22 L, BUN/Creatinine Ratio 19.8, Glucose 407 H, Lactic Acid 1.0, Calcium 8.4 L, Troponin I High Sens 14, B-Natriuretic Peptide 114.4 H 08/26/23 22:06: D-Dimer Quant (PE/DVT) 0.63 H* 08/26/23 23:07: Phosphorus 3.9, Magnesium 1.7, Troponin I High Sens 11 08/26/23 : Urine Color Yellow, Urine Clarity Cloudy, Urine pH 6.0, Ur Specific [place] 1.015, Urine Protein 500 H, Urine Glucose (UA) 1000 H, Urine Ketones Negative, Urine Occult Blood 10 H, Urine Nitrite Negative, Urine Bilirubin Negative, Urine Urobilinogen Normal, Ur Leukocyte Esterase 100 H, Urine RBC 0 SEEN, Urine WBC 10-25 SEEN, Ur Squamous Epith Cells 10-25 SEEN, Urine Bacteria 2+, Urine Mucus 0 SEEN 08/27/23 01:25: POC Glucose 401 H 08/27/23 01:35: MRSA (PCR) Negative 08/27/23 03:10: WBC 6.3, RBC 2.53 L, Hgb 6.9 L, Hct 22.4 L, MCV 88.5, MCH 27.3, MCHC 30.8 L, RDW Std Deviation 51.8 H, RDW Coeff of Vlad 16.4 H, Plt Count 131 L, MPV 11.3, Immature Gran % (Auto) 5.800 H, Neut % (Auto) 64.5, Lymph % (Auto) 14.9 L, Josephine % (Auto) 11.3 H, Eos % (Auto) 3.2, Baso % (Auto) 0.3, Absolute Neuts (auto) 4.0, Absolute Lymphs (auto) 0.93, Nucleated RBC % 0, Differential Comment SCANNED, Diff Path Review November, Sodium 137, Potassium 4.8, Chloride 107, Carbon Dioxide 31.0, Anion Gap -1 L, BUN 49 H, Creatinine 2.31 H, Estim Creat Clear Calc 34.63, Est GFR (MDRD) Af Amer 27 L, Est GFR (MDRD) Non-Af 23 L, BUN/Creatinine Ratio 21.2 H, Glucose 419 H, Calcium 8.2 L, Troponin I High Sens 13, Triglycerides 286 H, Cholesterol 144, LDL Cholesterol 38, VLDL Cholesterol 57 H, HDL Cholesterol 49, TSH 48.90 H, Free T4 0.73 L 08/27/23 06:45: Blood Type B POSITIVE, Antibody Screen NEGATIVE, Crossmatch See Detail 08/27/23 06:45: Crossmatch See Detail 08/27/23 06:50: Procalcitonin 0.10 H 08/27/23 09:22: POC Glucose 290 H 08/27/23 09:50: Hgb 6.7 L, Hct 21.7 L 08/27/23 11:25: U Random Total Protein 450.3 H, Urine Creatinine 46.10, Protein/Creatinin Ratio 9768 H 08/27/23 11:55: POC Glucose 285 H Micro: Microbiology 08/27/23 01:35 Mucosa - Nasopharyngeal Respiratory Panel (PCR) - Final 08/27/23 01:50 Urine, Clean Catch Legionella Antigen - Final 08/27/23 01:50 Urine, Clean Catch Streptococcus pneumoniae Antigen (M - Final 08/27/23 01:35 Mucosa - Nasopharyngeal SARS-CoV-2, Influenza & RSV (PCR) - Final ABG Data ABG results: ABG 08/26/23 08/27/23 22:29 00:18 Specimen Type ART ART Sample Site L Radial L Radial pH 7.19 L* 7.31 L Bicarbonate Actual 27.8 H 26.4 H Total CO2 30 28 Base Excess 0 0 O2 Saturation 97 98 O2 % 50.0 ABG pCO2 72.7 H* 52.5 H ABG pO2 115 H 110 H Madi Test Positive Positive O2 Delivery Device BiPAP BiPAP Vent Mode Not entered Not entered Crit Call To/Read Back Yes Blood Gas Notified Whom Mayra Blood Gas Notified Time 22:31:32 Clinical Comments 07/07 12 50% 09/07 12 30% Radiography Diagnostic Testing: Radiology Impression Chest X-Ray 08/26/23 22:12 IMPRESSION: Early congestive heart failure/pulmonary edema. Electronically Signed: Esthela Carrillo MD at 23:18 EST , Lung Scan-VQ NM 08/27/23 08:30 IMPRESSION: 1. VERY LOW PROBABILITY FOR PULMONARY EMBOLUS (<10%) 99m Tc DTPA aerosol ventilation / 99m Tc MAA pulmonary perfusion imaging examination, according to PIOPED II interpretive criteria with regard given to the presence of > 2 ventilation-perfusion matches without corresponding radiographic changes. (Sotsman et al, Radiology 246: 941, 2008 Sogabriela et al, J Nucl Med 49: 1741, 2008). Electronically Signed: Pierce Baker DO at 9:26 EST , Physical Exam Const alert and oriented x3 Constitutional Narrative: Elderly female, morbidly obese, sitting up comfortably in bed, conversing normally, mild distress due to increased work of breathing noted. General Appearance: cooperative HEENT normocephalic, head/scalp atraumatic, hearing grossly normal bilaterally, nasal mucous membranes and turbinates normal and moist oral mucous membranes Eyes PERRL, EOMs intact bilaterally and conjunctivae normal Neck full ROM, no lymphadenopathy and supple Lymph Lymphatic: no lymphadenopathy noted Chest inspection of chest normal Resp Resp Narrative: Mild increased work of breathing noted on 2 L nasal cannula. Moderately diminished breath sounds bilaterally, no wheezing or crackles noted. Cardio regular rate, regular rhythm, no murmurs and peripheral pulses 2+ throughout GI normal to inspection, nondistended, normoactive bowel sounds, soft to palpation, non-tender and non-distended Back/Spine normal ROM Extremity full ROM Extremity Narrative: +3-4 lower extremity pitting edema noted. Skin no rashes or lesions noted Neuro no focal motor deficits and no sensory deficits noted Speech: speech normal Psych mental status grossly normal Assessment & Plan Assessment/Plan (1) Acute on chronic heart failure with preserved ejection fraction (HFpEF): (2) Acute on chronic respiratory failure with hypoxia and hypercapnia: (3) GASTON (acute kidney injury): PLAN: Plan Patient is a 63-year-old female who presented to [facility] ED on 08/26/2023 with worsening shortness of breath at rest. 1. Acute on chronic combined respiratory failure, improved Suspect secondary to noncompliance with prescribed outpatient therapy, has not been compliant with home CPAP. May also have an element of obesity hypoventilation syndrome. Per light rail signal technician, patient has been referred to pulmonology for sleep apnea multiple occasions but has failed to follow-up. Currently using 2 L nasal cannula during the day and 4 L nasal cannula at night. ? Hearing Instrument Specialist following. Patient returned to her baseline on morning of 08/27 with positive pressure ventilation. BiPAP therapy with naps and at night. Okay with gentle diuresis. Encourage incentive spirometry use and mobilize patient as able. 2. Acute on chronic anemia Hemoglobin 8.1 on admit, down trended to hemoglobin 6.9 on hospital day 2. Baseline hemoglobin appears to be around 7-8. No overt signs of bleeding noted. Seems most likely due to lab draws and hemodilution on admission, but patient does have history of peptic ulcer disease with duodenitis requiring EGD in 04/2023. ? Transfused 1 unit of packed red blood cells on 08/27, repeat hemoglobin pending. Continue home PPI therapy. Low threshold to consult GI if anemia worsens. 3. Type 2 diabetes mellitus with hyperglycemia and with diabetic neuropathy Blood glucose in the 400s on admission, no evidence of DKA. Home regimen of Lantus 54 units at night, Humalog 6 units with meals plus sliding scale insulin, Trulicity weekly. A1c 8.7% on 07/15/23. ? Continue Lantus 50 units at night, Humalog 15 units with meals plus sliding scale insulin, can adjust as needed. Continue home gabapentin. 4. GASTON on CKD stage IV ? Nephrology following. Patient appears to have mild GASTON on CKD. Given 1 dose of IV Lasix on 08/26 with moderate urine output, holding Lasix for now given borderline hypotension on 08/27. Monitor daily BMP. 5. History of GERD with peptic ulcer disease and duodenitis ? EGD on 05/07/2023 showed an oozing gastric ulcer noted injected and treated with heater probe x 2 as well as acute duodenitis. No further GI bleeding since then per patient. Continue home p.o. PPI twice daily and Carafate. 6. Hypothyroidism ? TSH 48 on admit, free T4 low. No evidence of myxedema coma. Unclear if patient has been nonadherent to home Synthroid. Continue home Synthroid 150 mcg daily. Recommend repeat TSH and T4 check in 6 to 8 weeks. Chronic medical conditions: ? Morbid obesity: BMI 51 on admit. Complicates hospital course, care and prognosis. ? Hyperlipidemia: Continue home statin and fenofibrate. ? 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 ? Restless leg syndrome: Continue home ropinirole. DVT prophylaxis: SCDs CODE STATUS: Full code, verified Expected disposition: TBD Total clinical time spent by myself addressing the patient's medical issues, reviewing all the data, and collaborating with patient's care team: 35 minutes. Charges/Coding Visit Charges Inpatient E&M: 82119 Subs Hosp L2
[2023-08-27 19:05] LABS: Bedside Glucose 279 mg/dL (74-106)
[2023-08-27] MEDS: Pramipexole Di-HCl 0.5 MG Tablet 1.5 MG PO (21:43)
[2023-08-27] MEDS: Insulin Glargine-YFGN 100 UNIT/ML Pen 50 UNIT SC (21:43)
[2023-08-27] MEDS: Atorvastatin Calcium 10 MG Tablet PO (21:43)
[2023-08-27] MEDS: Gabapentin 400 MG Capsule PO (21:46)
[2023-08-27] MEDS: Nystatin Powder 15gm Bottle 1 APPLIC TOPICAL (21:52)
[2023-08-27] MEDS: Menthol/Lanolin/Calamine/Znox 113 GM Tube 1 APPLIC TOPICAL (21:52)
[2023-08-27 22:28] LABS: Bedside Glucose 258 mg/dL (74-106)
[2023-08-28] VITALS (12 sets, daily range): BP systolic 93–148; BP diastolic 49–69; PULSE 64–79; RESP 12–24; TEMP 35.8–36; O2SAT 94–100; BMI 51.5
[2023-08-28] MEDS: Ipratropium/Albuterol Sulfate 3 ML AMPUL.NEB INHALATION ×6 (03:03→23:16)
--- NOTE | 2023-08-28 06:09 | PCM.PN.INT ---
Assessment & Plan Assessment/Plan (1) Acute on chronic respiratory failure with hypoxia and hypercapnia: PLAN: Plan RECOMMENDATIONS: 1. Continue to wean supplemental oxygen as tolerated. 2. Recommend BiPAP therapy with naps and nightly. 3. Continue empiric antibiotics. Obtain repeat blood cultures. Obtain ID consultation. 4. Encourage incentive spirometer use and mobilize patient as tolerated. 5. Perform ambulatory walking oximetry study prior to discharge home. 6. Transfuse for hemoglobin less than 7 g/dL. Continue PPI therapy. 7. Obtain echocardiogram 8. Again, recommend outpatient pulmonary follow-up for further optimization. The patient would benefit from a retitration polysomnogram. IMPRESSIONS: 1. Acute on chronic combined respiratory failure Most likely secondary to noncompliance with prescribed outpatient therapy. The patient may have an element of alveolar hypoventilation secondary to obesity coupled with known obstructive sleep apnea, for which the patient has been noncompliant with the use of CPAP therapy. On several occasions, the patient has been referred to the pulmonary office for further workup and management of her sleep apnea, but has failed to follow-up. She utilizes 2 L/min of supplemental oxygen throughout the day and 4 L/min nightly. The patient has responded to the use of noninvasive positive pressure ventilatory support. She is back to her baseline from a respiratory perspective following BiPAP therapy and gentle diuresis. In the interim, continue to wean supplemental oxygen as tolerated. Encourage incentive spirometer use and mobilize patient as tolerated. Continue PAP therapy with naps and nightly. 2. Staphylococcal bacteremia The patient had positive blood cultures for Staphylococcus aureus dated August 27. Repeat blood cultures will be obtained this morning. In addition, ID consultation and echocardiogram will be obtained. 3. Anemia The patient presented with a hemoglobin less than 7 g/dL. She was subsequently transfused 1 unit packed red blood cells with improvement in hemoglobin noted. Plan to continue to monitor H&H daily and transfuse for hemoglobin less than 7 g/dL. Continue PPI therapy as ordered. Low threshold to consult gastroenterology, if anemia worsens. 4. Morbid obesity/medical noncompliance/hypertension/diabetes mellitus/hypothyroidism/chronic kidney disease/GERD Complicates care, management, recovery and prognosis. Continue home medications as indicated. This note was generated with [employer] software. It may contain incorrect words, spelling, and punctuation that were not noted in checking the note before signing. Subjective Subjective The patient was seen and examined at the bedside this morning. Events from the last 24 hours have been reviewed. The patient is currently afebrile, hemodynamically stable and maintaining appropriate oxygen saturations on 2 L/min via nasal cannula. The patient was partially compliant with PAP therapy overnight. Hemoglobin is improved this morning at 7.4 g/dL. Creatinine is stable at 2.39. Objective Data Objective Data The patient's most recent lab work, culture data and imaging studies have all been personally reviewed. Pulmonary VQ scan revealed very low probability for PE. Lower extremity Doppler study was negative for DVT. Blood culture dated August 27 with positive for Staph aureus. Vital Signs: Vital Signs Temp Pulse Resp BP Pulse Ox O2 Del Method O2 Flow Rate 96.7 F L 68 20 H 109/60 96 Nasal Cannula 2 08/28/23 03:48 08/28/23 03:48 08/28/23 03:48 08/28/23 03:48 08/28/23 03:48 08/28/23 03:50 08/28/23 03:50 FiO2 30 08/28/23 01:38 Oxygen Flow Rate (L/min) 2 Oxygen Delivery Method Nasal Cannula Weight: 309 lb 4.937 oz Body Mass Index (BMI) 51.5 Intake & Output: Intake and Output for Last 24 Hours 08/26/23 08/27/23 08/28/23 23:59 23:59 23:59 Intake Total 1148.5 / 1148.5 50 / 50 Output Total 1000 / 1000 Balance 148.5 / 148.5 50 / 50 Lab / Micro Data Attestation: I reviewed the patient's lab results. 08/28/23 06:27 08/28/23 06:27 Labs: Laboratory Results - last 24 hr 08/27/23 01:35: MRSA (PCR) Negative 08/27/23 03:10: Free T4 0.73 L 08/27/23 06:45: Blood Type B POSITIVE, Antibody Screen NEGATIVE, Crossmatch See Detail 08/27/23 06:45: Crossmatch See Detail 08/27/23 06:50: Procalcitonin 0.10 H 08/27/23 09:22: POC Glucose 290 H 08/27/23 09:50: Hgb 6.7 L, Hct 21.7 L 08/27/23 11:25: U Random Total Protein 450.3 H, Urine Creatinine 46.10, Protein/Creatinin Ratio 9768 H 08/27/23 11:55: POC Glucose 285 H 08/27/23 15:52: POC Glucose 279 H 08/27/23 21:41: POC Glucose 258 H Micro: Microbiology 08/27/23 01:29 Blood Culture (Wb) - Anticubital Left Bacteria Detection (PCR) - Preliminary Staphylococcus aureus 08/27/23 01:29 Blood Culture (Wb) - Anticubital Left Blood Culture - Preliminary 08/27/23 01:35 Mucosa - Nasopharyngeal Respiratory Panel (PCR) - Final 08/27/23 01:50 Urine, Clean Catch Legionella Antigen - Final 08/27/23 01:50 Urine, Clean Catch Streptococcus pneumoniae Antigen (M - Final 08/27/23 01:35 Mucosa - Nasopharyngeal SARS-CoV-2, Influenza & RSV (PCR) - Final Radiography Diagnostic Testing: Radiology Impression Venous Doppler Study 08/27/23 01:32 Interpretation Summary Deep veins of the bilateral lower extremities are patent and compressible segmentally. There is no evidence of bilateral lower extremity deep vein thrombosis. The bilateral great saphenous veins appear patent and compressible segmentally. Ordering Physician: Perico Casas Referring Physician: Lulu Luna Performed By: Anamika Johnson, SHASHA, RVT Lung Scan-VQ NM 08/27/23 08:30 IMPRESSION: 1. VERY LOW PROBABILITY FOR PULMONARY EMBOLUS (<10%) 99m Tc DTPA aerosol ventilation / 99m Tc MAA pulmonary perfusion imaging examination, according to PIOPED II interpretive criteria with regard given to the presence of > 2 ventilation-perfusion matches without corresponding radiographic changes. (Sogabriela et al, Radiology 246: 941, 2008 Sogabriela et al, J Nucl Med 49: 1741, 2008). Electronically Signed: Pierce Baker DO at 9:26 EST , Physical Exam Const alert and no apparent distress Constitutional Narrative: Morbidly obese. General Appearance: cooperative HEENT normocephalic and head/scalp atraumatic Eyes PERRL, EOMs intact bilaterally and conjunctivae normal Neck supple General: trachea midline Chest inspection of chest normal Resp normal respiratory effort Auscultation: diminished lung sounds; Negative for rales, rhonchi or wheezes Cardio regular rate and regular rhythm GI normal to inspection, nondistended, normoactive bowel sounds Extremity General Extremity: edema bilateral lower extremity; Negative for clubbing Skin no rashes or lesions noted Neuro CN's II-XII intact bilaterally and no focal motor deficits Psych Mood & Affect: flat affect Charges/Coding Visit Charges Inpatient E&M: 23569 Subs Hosp L2
[2023-08-28] MEDS: Piperacil/Tazobactam 3.375 GM in 0.9% Normal Saline (50mL MB+) 50 ML IV (06:29)
[2023-08-28] MEDS: Levothyroxine 150 MCG Tablet PO (06:30)
[2023-08-28] MEDS: Sucralfate 1 GM Tablet PO ×2 (06:30→16:57)
[2023-08-28] MEDS: Gabapentin 100 MG Capsule 200 MG PO (06:34)
[2023-08-28 06:53] LABS: Hemoglobin 7.4 g/dL (12.0-15.0); Mean Corp Hgb Conc 30.8 g/dL (32-36); Mean Corpuscular Hgb 27.5 pg (27.0-32.0); Mean Corpuscular Volume 89.2 fL (81-99); Mean Platelet Vol. 12.1 fl (6.2-12.0); POSITIVE COUNT YES; POSITIVE MORPHOLOGY YES; Platelet Count 111 K/mm3 (150-450); RBC Distribution Width CV 16.8 % (11.6-14.6); RBC Distribution Width SD 52.4 fl (35.1-43.9); Red Blood Count 2.69 M/mm3 (4.2-5.4); White Blood Count 6.4 K/mm3 (4.4-11.0)
[2023-08-28 07:14] LABS: Anion Gap 1 (5-15); BUN 54 mg/dL (7-18); BUN/Creat Ratio 22.6 RATIO (10-20); Calcium,Total 8.6 mg/dL (8.5-10.1); Chloride 115 mmol/L (98-107); Creatinine, Serum 2.39 mg/dL (0.55-1.02); EST Glomerular Filtration Rate 22 mL/min (>60); Est Glom Filt Rate - Afr Amer 26 mL/min (>60); Estimated Creatinine Clearance 33.46 ml/min; Glucose 109 mg/dL (74-106); Potassium 5.3 mmol/L (3.5-5.1); Sodium Level 145 mmol/L (136-145)
[2023-08-28 07:18] LABS: Differential Indicated MANUAL DIFF
--- NOTE | 2023-08-28 08:51 | CASEMGMT ---
Social Work SW called [facility], message left requesting a call back regarding whether or not pt will be able to return when ready for discharge. WES also did fax the PT evaluation to [facility] for their review. ARIAN Philippe
[2023-08-28 08:53] LABS: Eosinophil 6 % (0-5); Lymphocyte 20 % (19-41); Monocyte 7 % (0-10); Myelocyte 2 % (0-0); Neutrophil-Band 3 % (0-5); Neutrophil-Segmented 62 % (47-70); Platelet Estimate SLT DEC (ADEQ); Red Cell Morphology NORM C+C NORMAL (NORM C&C); Total Cells Counted 100 (MANUAL DIFF)
[2023-08-28 08:54] LABS: Absolute Neutrophil Count 4.2 X10^3/uL (2.0-7.7)
[2023-08-28] MEDS: Menthol/Lanolin/Calamine/Znox 113 GM Tube 1 APPLIC TOPICAL ×2 (09:16→20:47)
[2023-08-28] MEDS: Potassium Chloride Oral Tablet 10 MEQ PO (09:16)
[2023-08-28] MEDS: Escitalopram Oxalate 10 MG Tablet PO (09:16)
[2023-08-28] MEDS: 0.9% Saline Lock 10 ML Syringe IV (09:16)
[2023-08-28] MEDS: guaiFENesin 1,200 MG Tablet 1200 MG PO ×2 (09:17→20:48)
[2023-08-28] MEDS: Fenofibrate 48 MG Tablet PO (09:17)
[2023-08-28] MEDS: Nystatin Powder 15gm Bottle 1 APPLIC TOPICAL ×2 (09:17→20:48)
[2023-08-28] MEDS: Pantoprazole Sodium 40 MG Tablet PO ×2 (09:17→20:48)
[2023-08-28 09:19] LABS: Pathologist Review Reviewed
[2023-08-28 09:19] LABS: Pathologist Review Reviewed
--- NOTE | 2023-08-28 09:28 | ECHOCS_ITS ---
Reason For Study: murmur Procedure This was a 2D Doppler, Color Flow transthoracic echocardiogram. The study was technically difficult. Due to bodyhabitus, poor apical windows. Contrast injection was performed. Exam performed portable in patient room. Left Ventricle Normal LV size. Mild concentric left ventricular hypertrophy. The left ventricular ejection fraction is 65 %. Normal diastology for age. Right Ventricle Normal right ventricle. Atria The left and right atria are normal. Mitral Valve Mild mitral annular calcification. Mild (1+) eccentric mitral valve insufficiency. Tricuspid Valve Mild tricuspid valve insufficiency. Right ventricular systolic pressure estimated to be 40 mmHg. Aortic Valve Trisinus/trileaflet aortic valve. Pulmonic Valve The pulmonic valve is not well visualized. Great Vessels Normal sized aortic root. Pericardium/Pleural No pericardial effusion. Medication Diluted definity 3.0ml given slow IV push to enhance endocardial definition. MMode/2D Measurements & Calculations LVIDd: 5.3 cm IVSd: 1.3 cm LVOT diam: 2.0 cm LVIDs: 3.4 cm LVPWd: 1.2 cm RVDd: 3.5 cm FS: 36.3 % LVOT area: 3.2 cm2 Ao root diam: 2.7 cm LAV(MOD-bp): 68.2 ml LVAd ap4: 40.2 cm2 LAV(MOD-bp) Indexed: 28.7 ml/m2 LVLd ap4: 8.9 cm LAV(MOD-sp2): 70.6 ml EDV(MOD-sp4): 154.3 ml LAV(MOD-sp4): 58.2 ml EDV(sp4-el): 155.1 ml LVAs ap4: 23.0 cm2 LVLs ap4: 7.0 cm ESV(MOD-sp4): 63.2 ml ESV(sp4-el): 63.9 ml EF(MOD-sp4): 59.1 % EF(sp4-el): 58.8 % LVAd ap2: 35.7 cm2 SV(MOD-sp4): 91.1 ml SV(MOD-sp2): 70.2 ml LVLd ap2: 9.2 cm EDV(MOD-sp2): 112.7 ml EDV(sp2-el): 118.0 ml LVAs ap2: 19.2 cm2 LVLs ap2: 7.5 cm ESV(MOD-sp2): 42.5 ml ESV(sp2-el): 41.9 ml EF(MOD-sp2): 62.3 % SV(sp4-el): 91.2 ml LA dimension(2D): 4.2 cm LA A4 area: 21.2 cm2 RA A4 area: 15.5 cm2 TAPSE: 2.0 cm Time Measurements MV dec time: 0.22 sec Doppler Measurements & Calculations MV E max zee: 121.8 cm/sec Lat Peak E' Eze: 7.3 cm/sec Med Peak E' Eze: 7.6 cm/sec MV A max eze: 104.0 cm/sec E/E' lat: 16.6 E/E' med: 16.0 MV E/A: 1.2 MV V2 max: 144.6 cm/sec MV P1/2t max eze: 151.5 cm/sec Ao V2 max: 193.8 cm/sec MV max P.4 mmHg MV P1/2t: 73.7 msec Ao max P.0 mmHg MV V2 mean: 88.2 cm/sec Ao V2 mean: 141.1 cm/sec MV mean P.5 mmHg MV dec slope: 602.1 cm/sec2 Ao mean P.7 mmHg MV V2 VTI: 37.2 cm MVA(P1/2t): 3.0 cm2 Ao V2 VTI: 43.9 cm AV (velocity ratio): 0.60 MVA(VTI): 2.3 cm2 DAYDAY(I,D): 1.9 cm2 DAYDAY(V,D): 1.8 cm2 LV V1 max: 108.2 cm/sec SV(LVOT): 84.8 ml PA V2 max: 97.0 cm/sec LV V1 max P.7 mmHg PA V2 mean: 70.9 cm/sec LV V1 mean P.5 mmHg LV V1 mean: 75.1 cm/sec LV V1 VTI: 26.3 cm TR max eze: 247.8 cm/sec TR max P.6 mmHg ECHO/Echo Complete W/ Contrast Interpretation Summary The left ventricular ejection fraction is 65 %. Mild mitral annular calcification. Mild (1+) eccentric mitral valve insufficiency. Right ventricular systolic pressure estimated to be 40 mmHg. Mild tricuspid valve insufficiency. The study was technically difficult. Ordering Physician: Tobias Dickerson Referring Physician: Elsy Luna Performed By: Mallika Lucero, SHASHA, RVT
--- NOTE | 2023-08-28 10:22 | CON.PCM.ID_ITS ---
Assessment & Plan Assessment/Plan (1) Respiratory failure: (2) Congestive heart failure: (3) MSSA bacteremia: PLAN: MSSA bacteremia per pcr, several weeks of worsened edema/orthopnea, splinter hemorrhage on L thumb - concern for endocarditis. Will narrow abx to cefazolin. Ordered echo, repeat bcx pending. Had MSSA bacteremia 04/2023 as well. Will follow, thank you, d/w Dr. Cox HPI Consult Data Date of Consult: 08/28/23 HPI Narrative Reason for Consultation: bacteremia HPI Narrative: TOBIN BIGGS, is a 63 F who presented 08/26 with about 3 weeks increased BLE edema, 2 weeks progressive dyspnea/orthopnea. On 2L during day, 4L at night. No fever or chills. Mild headache. Admitted to icu, started on zosyn 08/27. Now bcx with mssa per pcr. No rash, no new joint/back pain. Had MSSA bacteremia 04/2023, CY neg, completed course with po linezolid after bcx cleared rapidly. Full ROS performed and neg except as noted above. [facility] Medical History (HFpEF) heart failure with preserved ejection fraction GASTON (acute kidney injury) Anemia Anxiety Anxiety and depression Chest pain Chronic acquired lymphedema Chronic anemia Chronic kidney disease CKD (chronic kidney disease), stage III CPAP (continuous positive airway pressure) dependence Diabetes mellitus with diabetic polyneuropathy Diabetes mellitus, type 2 Gastroparesis History of diabetes mellitus History of fever HLD (hyperlipidemia) HTN (hypertension) Hypothyroidism Hypoxia Malaise Morbid obesity On home oxygen therapy SACHIN (obstructive sleep apnea) Pleural effusion, left Pulmonary edema Retinal hemorrhage Sleep apnea Home Medications atorvastatin 10 mg tablet 10 mg PO DAILY cholesterol 09/24/22 [History Last Taken 04/13/23] escitalopram oxalate 10 mg tablet 10 mg PO DAILY anxiety 09/24/22 [History Last Taken 04/13/23] fenofibrate nanocrystallized 48 mg tablet (Tricor) 48 mg PO DAILY cholesterol 09/24/22 [History Last Taken 04/13/23] furosemide 20 mg tablet (Lasix) 20 mg PO DAILY EDEMA 03/05/23 [History Last Taken 04/13/23] gabapentin 100 mg capsule 200 mg PO BID PAIN 03/05/23 [History Last Taken 04/13/23] levothyroxine 150 mcg tablet 150 mcg PO DAILY@0600 SEE PCP 03/05/23 [History Last Taken Unknown] ropinirole 4 mg tablet 4 mg PO QHS restless legs 03/05/23 [History Last Taken 05/01/23] dulaglutide 0.75 mg/0.5 mL subcutaneous pen injector (Trulicity) 0.75 mg subcut .once a week dm2 04/14/23 [History Last Taken 08/15/23] gabapentin 400 mg capsule 400 mg PO QHS SEE PCP 04/14/23 [History Last Taken 04/13/23] insulin glargine 100 unit/mL (3 mL) subcutaneous pen (Lantus Solostar U-100 Insulin) 54 unit subcut QHS SEE PCP 04/14/23 [History Last Taken Unknown] insulin lispro 100 unit/mL subcutaneous pen 1 sliding scale dose subcut TIDCM SEE PCP 04/14/23 [History Last Taken Unknown] metoclopramide HCl 5 mg tablet 5 mg PO BID SEE PCP 04/14/23 [History Last Taken Unknown] omega 0-ryj-hai-fish oil 300 mg-1,000 mg capsule (Fish Oil) 1 cap PO BID VITAMIN 04/14/23 [History Last Taken 04/13/23] pen needle, diabetic 31 gauge x 1/4 (Easy Touch) 04/14/23 [History Last Taken Unknown] potassium chloride 10 mEq capsule,extended release 10 meq PO DAILY SEE PCP 04/14/23 [History Last Taken 05/01/23] artifi.tears(hypromellose)(PF) 0.3 % eye drops 1 drp EACH EYE Q2H PRN retinal hemmorage 04/15/23 [History Last Taken Unknown] pantoprazole 40 mg tablet,delayed release 40 mg PO BID #60 tabs 05/08/23 [Rx Last Taken Unknown] sucralfate 1 gram tablet (Carafate) 1 g PO BID #60 tabs 05/08/23 [Rx Last Taken Unknown] acetaminophen 325 mg tablet 650 mg PO Q6H PRN pain 08/26/23 [History Last Taken Unknown] difluprednate 0.05 % eye drops 1 drp ophthalmic (eye) .QID 08/26/23 [History Last Taken Unknown] insulin lispro 100 unit/mL subcutaneous pen 6 unit subcut TID 08/26/23 [History Last Taken Unknown] nystatin 100,000 unit/gram topical powder (Nystop) 1 applic topical BID 08/26/23 [History Last Taken Unknown] Allergy/AdvReac Type Severity Reaction Status Date / Time No Known Allergies Allergy Verified 07/14/23 18:45 Family History Mother Heart disease Hypertension Diabetes Father Prostate cancer Surgical History H/O cataract removal with insertion of prosthetic lens History of cholecystectomy History of surgery on lower extremity Social History housing: [facility] Smoking Status: Never smoker alcohol intake: never substance use type: does not use Physical Exam Const alert, oriented x3 and no apparent distress General Appearance: cooperative HEENT normocephalic and head/scalp atraumatic Eyes PERRL and EOMs intact bilaterally Neck supple and No nodes Resp Auscultation: diminished lung sounds Cardio regular rate and regular rhythm Heart Sounds: murmur GI soft to palpation, non-tender and non-distended Extremity General Extremity: edema Skin Skin Narrative: L thumb splinter hemorrhage Neuro CN's II-XII intact bilaterally Lab / Micro Data Attestation: I reviewed the patient's lab results. 08/28/23 06:27 08/28/23 06:27 Labs: Laboratory Results - last 24 hr 08/26/23 20:55: Diff Path Review Reviewed 08/27/23 03:10: Diff Path Review Reviewed 08/27/23 06:45: Blood Type B POSITIVE, Antibody Screen NEGATIVE, Crossmatch See Detail 08/27/23 06:45: Crossmatch See Detail 08/27/23 11:25: U Random Total Protein 450.3 H, Urine Creatinine 46.10, Protein/Creatinin Ratio 9768 H 08/27/23 11:55: POC Glucose 285 H 08/27/23 15:52: POC Glucose 279 H 08/27/23 21:41: POC Glucose 258 H 08/28/23 06:27: WBC 6.4, RBC 2.69 L, Hgb 7.4 L, Hct 24.0 L, MCV 89.2, MCH 27.5, MCHC 30.8 L, RDW Std Deviation 52.4 H, RDW Coeff of Vlad 16.8 H, Plt Count 111 L, MPV 12.1 H, Neut % (Auto) Not Reportable, Absolute Neuts (auto) 4.2, Absolute Lymphs (auto) 1.30, Total Counted 100, Neutrophils % (Manual) 62, Band Neutrophils % 3, Lymphocytes % (Manual) 20, Monocytes % (Manual) 7, Eosinophils % (Manual) 6 H, Myelocytes % 2 H, Diff Path Review May foll, Platelet Estimate SLT DEC, RBC Morphology NORM C+C, Sodium 145, Potassium 5.3 H, Chloride 115 H, Carbon Dioxide 29.0, Anion Gap 1 L, BUN 54 H, Creatinine 2.39 H, Estim Creat Clear Calc 33.46, Est GFR (MDRD) Af Amer 26 L, Est GFR (MDRD) Non-Af 22 L, BUN/Creatinine Ratio 22.6 H, Glucose 109 H, Calcium 8.6 Micro: Microbiology 08/27/23 01:29 Blood Culture (Wb) - Anticubital Left Bacteria Detection (PCR) - Final Staphylococcus aureus 08/27/23 01:29 Blood Culture (Wb) - Anticubital Left Blood Culture - Preliminary Staphylococcus aureus Imaging Radiology Impression Venous Doppler Study 08/27/23 01:32 Interpretation Summary Deep veins of the bilateral lower extremities are patent and compressible segmentally. There is no evidence of bilateral lower extremity deep vein thrombosis. The bilateral great saphenous veins appear patent and compressible segmentally. Ordering Physician: Perico Casas Referring Physician: Lulu Luna Performed By: Anamika Johnson RDCS, RVT
--- NOTE | 2023-08-28 10:23 | PN.RENAL_ITS ---
Documented by User: KELVIN Gomez 08/28/23 10:31 Subjective Subjective Resting in bed. No overnight events. Eating breakfast. Objective Data Objective Data Vital Signs: Vital Signs Temp Pulse Resp BP Pulse Ox O2 Del Method O2 Flow Rate 96.8 F L 73 16 93/49 L 95 Nasal Cannula 2 08/28/23 09:19 08/28/23 09:19 08/28/23 09:19 08/28/23 09:19 08/28/23 09:19 08/28/23 09:27 08/28/23 09:27 FiO2 30 08/28/23 01:38 Oxygen Flow Rate (L/min) 2 Oxygen Delivery Method Nasal Cannula Weight: 140.3 kg Body Mass Index (BMI) 51.5 Intake & Output: Intake and Output for Last 24 Hours 08/26/23 08/27/23 08/28/23 23:59 23:59 23:59 Intake Total 1148.5 / 1148.5 150 / 150 Output Total 1000 / 1000 300 / 300 Balance 148.5 / 148.5 -150 / -150 Lab / Micro Data 08/28/23 06:27 08/28/23 06:27 Labs: Laboratory Results - last 24 hr 08/26/23 20:55: Diff Path Review Reviewed 08/27/23 03:10: Diff Path Review Reviewed 08/27/23 06:45: Blood Type B POSITIVE, Antibody Screen NEGATIVE, Crossmatch See Detail 08/27/23 06:45: Crossmatch See Detail 08/27/23 11:25: U Random Total Protein 450.3 H, Urine Creatinine 46.10, Protein/Creatinin Ratio 9768 H 08/27/23 11:55: POC Glucose 285 H 08/27/23 15:52: POC Glucose 279 H 08/27/23 21:41: POC Glucose 258 H 08/28/23 06:27: WBC 6.4, RBC 2.69 L, Hgb 7.4 L, Hct 24.0 L, MCV 89.2, MCH 27.5, MCHC 30.8 L, RDW Std Deviation 52.4 H, RDW Coeff of Vlad 16.8 H, Plt Count 111 L, MPV 12.1 H, Neut % (Auto) Not Reportable, Absolute Neuts (auto) 4.2, Absolute Lymphs (auto) 1.30, Total Counted 100, Neutrophils % (Manual) 62, Band Neutrophils % 3, Lymphocytes % (Manual) 20, Monocytes % (Manual) 7, Eosinophils % (Manual) 6 H, Myelocytes % 2 H, Diff Path Review May foll, Platelet Estimate SLT DEC, RBC Morphology NORM C+C, Sodium 145, Potassium 5.3 H, Chloride 115 H, Carbon Dioxide 29.0, Anion Gap 1 L, BUN 54 H, Creatinine 2.39 H, Estim Creat Clear Calc 33.46, Est GFR (MDRD) Af Amer 26 L, Est GFR (MDRD) Non-Af 22 L, BUN/Creatinine Ratio 22.6 H, Glucose 109 H, Calcium 8.6 Micro: Microbiology 08/27/23 01:29 Blood Culture (Wb) - Anticubital Left Bacteria Detection (PCR) - Final Staphylococcus aureus 08/27/23 01:29 Blood Culture (Wb) - Anticubital Left Blood Culture - Preliminary Staphylococcus aureus 08/27/23 01:35 Mucosa - Nasopharyngeal Respiratory Panel (PCR) - Final 08/27/23 01:50 Urine, Clean Catch Legionella Antigen - Final 08/27/23 01:50 Urine, Clean Catch Streptococcus pneumoniae Antigen (M - Final 08/27/23 01:35 Mucosa - Nasopharyngeal SARS-CoV-2, Influenza & RSV (PCR) - Final Radiography Diagnostic Testing: Radiology Impression Venous Doppler Study 08/27/23 01:32 Interpretation Summary Deep veins of the bilateral lower extremities are patent and compressible segmentally. There is no evidence of bilateral lower extremity deep vein thrombosis. The bilateral great saphenous veins appear patent and compressible segmentally. Ordering Physician: Perico Casas Referring Physician: Lulu Luna Performed By: Anamika Johnson, RDCS, RVT Physical Exam Narrative Alert awake oriented x 3 no obvious distress no JVD s1s2 no murmurs lungs clear anteriorly abdomen soft Trace bilateral lower extremity edema Assessment & Plan Assessment/Plan (1) History of renal insufficiency: (2) GASTON (acute kidney injury): PLAN: Baseline creatinine had been around 1.5-2 with several fluctuations. In June 2023 serum creatinine ranging 2.3 to 2.6 mg/dL. Urine analysis shows significant amount of proteinuria, few WBC, few RBCs. In March she had serologic workup: ANCA negative, serum protein electropho resis negative, double-stranded DNA negative Urine protein creatinine ratio 9.8 g Pending urine immunofixation and anti-GBM antibody Renal ultrasound was negative. Acute renal failure versus some progression of CKD now at baseline, GASTON is likely hemodynamic. Serum creatinine 2.3 on admission and again today is 2.3 mg/dL. No acute indication for AUXILIARY EQUIPMENT TENDER. Patient has good urine output. Previous echocardiogram with preserved ejection fraction, pulmonary hypertension could not be assessed due to insufficient tricuspid regurgitation flow. V/Q scan low probability for PE. Venous Doppler negative DVT BNP is on the lower side at 110, although this could be artificially low in someone with morbid obesity Chest x-ray does show edema/infiltrates. Clinically she does have moderate amount of peripheral edema. Responded well to dose of IV Lasix, breathing has improved. Home Lasix dose was 20 mg daily. Will give dose lasix today. Documented by User: Dr. Jose Luis Lechuga MD 08/28/23 14:44 Objective Data Lab / Micro Data 08/28/23 06:27 08/28/23 06:27 Assessment & Plan Assessment/Plan (1) History of renal insufficiency: (2) GASTON (acute kidney injury): PLAN: Baseline creatinine had been around 1.5-2 with several fluctuations. In June 2023 serum creatinine ranging 2.3 to 2.6 mg/dL. Urine analysis shows significant amount of proteinuria, few WBC, few RBCs. In March she had serologic workup: ANCA negative, serum protein electrophoresis negative, double-stranded DNA negative Urine protein creatinine ratio 9.8 g Pending urine immunofixation and anti-GBM antibody Renal ultrasound was negative. Acute renal failure versus some progression of CKD now at baseline, GASTON is likely hemodynamic. Serum creatinine 2.3 on admission and again today is 2.3 mg/dL. No acute indication for AUXILIARY EQUIPMENT TENDER. Patient has good urine output. Previous echocardiogram with preserved ejection fraction, pulmonary hypertension could not be assessed due to insufficient tricuspid regurgitation flow. V/Q scan low probability for PE. Venous Doppler negative DVT BNP is on the lower side at 110, although this could be artificially low in someone with morbid obesity Chest x-ray does show edema/infiltrates. Clinically she does have moderate amount of peripheral edema. Responded well to dose of IV Lasix, breathing has improved. Home Lasix dose was 20 mg daily. Will give dose lasix today. 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 diabetes related Urine GUIDO pending Bp borderline MSSA bacteremia low BP values lasix PRN
--- NOTE | 2023-08-28 11:13 | PCM.PN.HOSP ---
Reason for Visit Reason for Visit: Diagnoses Methicillin susceptible Staphylococcus aureus infection as the cause of diseases classified elsewhere (08/26/23) Acute on chronic diastolic (congestive) heart failure (08/26/23) Heart failure, unspecified (08/26/23) Acute and chronic respiratory failure with hypoxia (08/26/23) Acute and chronic respiratory failure with hypercapnia (08/26/23) Respiratory failure, unspecified, unspecified whether with hypoxia or hypercapnia (08/26/23) Acute kidney failure, unspecified (08/26/23) Bacteremia (08/26/23) Personal history of other diseases of urinary system (08/26/23) Subjective Subjective No acute events overnight. Patient seen at bedside this morning. Patient sitting up comfortably in bed, conversing normally, no acute distress. Patient appears more comfortable today than yesterday. No increased work of breathing noted this morning. Patient currently states she is very fatigued today, similar to previous days. She has not felt like eating or drinking very much. States she feels slightly better after the blood transfusion yesterday but still fatigued and weak. She denies any fevers or chills. Denies any other pain or discomfort. No other acute concerns morning. Objective Data Objective Data Vital Signs: Vital Signs Temp Pulse Resp BP Pulse Ox O2 Del Method O2 Flow Rate 96.8 F L 73 16 93/49 L 95 Nasal Cannula 2 08/28/23 09:19 08/28/23 09:19 08/28/23 09:19 08/28/23 09:19 08/28/23 09:19 08/28/23 09:27 08/28/23 09:27 FiO2 30 08/28/23 01:38 Oxygen Flow Rate (L/min) 2 Oxygen Delivery Method Nasal Cannula Weight: 140.3 kg Body Mass Index (BMI) 51.5 Intake & Output: Intake and Output for Last 24 Hours 08/26/23 08/27/23 08/28/23 23:59 23:59 23:59 Intake Total 1148.5 / 1148.5 200 / 200 Output Total 1000 / 1000 300 / 300 Balance 148.5 / 148.5 -100 / -100 Lab / Micro Data 08/28/23 06:27 08/28/23 06:27 Labs: Laboratory Results - last 24 hr 08/26/23 20:55: Diff Path Review Reviewed 08/27/23 03:10: Diff Path Review Reviewed 08/27/23 06:45: Blood Type B POSITIVE, Antibody Screen NEGATIVE, Crossmatch See Detail 08/27/23 06:45: Crossmatch See Detail 08/27/23 11:25: U Random Total Protein 450.3 H, Urine Creatinine 46.10, Protein/Creatinin Ratio 9768 H 08/27/23 11:55: POC Glucose 285 H 08/27/23 15:52: POC Glucose 279 H 08/27/23 21:41: POC Glucose 258 H 08/28/23 06:27: WBC 6.4, RBC 2.69 L, Hgb 7.4 L, Hct 24.0 L, MCV 89.2, MCH 27.5, MCHC 30.8 L, RDW Std Deviation 52.4 H, RDW Coeff of Vlad 16.8 H, Plt Count 111 L, MPV 12.1 H, Neut % (Auto) Not Reportable, Absolute Neuts (auto) 4.2, Absolute Lymphs (auto) 1.30, Total Counted 100, Neutrophils % (Manual) 62, Band Neutrophils % 3, Lymphocytes % (Manual) 20, Monocytes % (Manual) 7, Eosinophils % (Manual) 6 H, Myelocytes % 2 H, Diff Path Review May foll, Platelet Estimate SLT DEC, RBC Morphology NORM C+C, Sodium 145, Potassium 5.3 H, Chloride 115 H, Carbon Dioxide 29.0, Anion Gap 1 L, BUN 54 H, Creatinine 2.39 H, Estim Creat Clear Calc 33.46, Est GFR (MDRD) Af Amer 26 L, Est GFR (MDRD) Non-Af 22 L, BUN/Creatinine Ratio 22.6 H, Glucose 109 H, Calcium 8.6 Micro: Microbiology 08/27/23 01:29 Blood Culture (Wb) - Anticubital Left Bacteria Detection (PCR) - Final Staphylococcus aureus 08/27/23 01:29 Blood Culture (Wb) - Anticubital Left Blood Culture - Preliminary Staphylococcus aureus 08/27/23 01:35 Mucosa - Nasopharyngeal Respiratory Panel (PCR) - Final 08/27/23 01:50 Urine, Clean Catch Legionella Antigen - Final 08/27/23 01:50 Urine, Clean Catch Streptococcus pneumoniae Antigen (M - Final 08/27/23 01:35 Mucosa - Nasopharyngeal SARS-CoV-2, Influenza & RSV (PCR) - Final Radiography Diagnostic Testing: Radiology Impression Venous Doppler Study 08/27/23 01:32 Interpretation Summary Deep veins of the bilateral lower extremities are patent and compressible segmentally. There is no evidence of bilateral lower extremity deep vein thrombosis. The bilateral great saphenous veins appear patent and compressible segmentally. Ordering Physician: Perico Casas Referring Physician: Lulu Luna Performed By: Anamika Johnson RDCS, RVT Physical Exam Const alert and oriented x3 Constitutional Narrative: Elderly female, morbidly obese, sitting up comfortably in bed, conversing normally, mild distress due to increased work of breathing noted. General Appearance: cooperative HEENT normocephalic, head/scalp atraumatic, hearing grossly normal bilaterally, nasal mucous membranes and turbinates normal and moist oral mucous membranes Eyes PERRL, EOMs intact bilaterally and conjunctivae normal Neck full ROM, no lymphadenopathy and supple Lymph Lymphatic: no lymphadenopathy noted Chest inspection of chest normal Resp Resp Narrative: No increased work of breathing noted on 2 L nasal cannula. Moderately diminished breath sounds bilaterally, no wheezing or crackles noted, similar to previous. Cardio regular rate, regular rhythm, no murmurs and peripheral pulses 2+ throughout GI normal to inspection, nondistended, normoactive bowel sounds, soft to palpation, non-tender and non-distended Back/Spine normal ROM Extremity full ROM Extremity Narrative: +2-3 lower extremity pitting edema noted. Skin no rashes or lesions noted Neuro no focal motor deficits and no sensory deficits noted Speech: speech normal Psych mental status grossly normal Assessment & Plan Assessment/Plan (1) Acute on chronic heart failure with preserved ejection fraction (HFpEF): (2) Acute on chronic respiratory failure with hypoxia and hypercapnia: (3) GASTON (acute kidney injury): PLAN: Plan Patient is a 63-year-old female who presented to [facility] ED on 08/26/2023 with worsening shortness of breath at rest. 1. Acute on chronic combined respiratory failure, improved Suspect secondary to noncompliance with prescribed outpatient therapy, has not been compliant with home CPAP. May also have an element of obesity hypoventilation syndrome. Per antique clocks repairer, patient has been referred to pulmonology for sleep apnea multiple occasions but has failed to follow-up. Currently using 2 L nasal cannula during the day and 4 L nasal cannula at night. ? Cloth Mercerizer Back Tender following. Patient returned to her baseline on morning of 08/27 with positive pressure ventilation. BiPAP therapy with naps and at night. Okay for gentle diuresis as needed. Encourage incentive spirometry use and mobilize patient as able. 2. Acute on chronic anemia Hemoglobin 8.1 on admit, down trended to hemoglobin 6.9 on hospital day 2. Baseline hemoglobin appears to be around 7-8. Seems most likely due to lab draws and hemodilution on admission, but patient does have history of peptic ulcer disease with duodenitis requiring EGD in 04/2023. Patient denies any dark or bloody stools. ? Transfused 1 unit of packed red blood cells on 08/27, repeat hemoglobin 7.5 on morning of 08/28. Will recheck hemoglobin this afternoon at 2 PM to ensure it remains stable. Continue home PPI therapy. Low threshold to consult GI if anemia worsens. 3. MSSA bacteremia ? Blood cultures 08/27 positive for MSSA. Infectious disease following. Splinter hemorrhage on left thumb concerning for endocarditis, TTE ordered. Antibiotics narrowed to Ancef on 08/28. Repeat blood cultures pending. Notably did have MSSA bacteremia in 04/2023 as well. 4. GASTON on CKD stage IV ? Nephrology following. Patient appears to have mild GASTON on CKD, versus progression of CKD now at new baseline. Urine output has been adequate. Restarted on home Lasix 20 mg daily on 08/28. Monitor. 5. Type 2 diabetes mellitus with hyperglycemia and with diabetic neuropathy Blood glucose in the 400s on admission, no evidence of DKA. Home regimen of Lantus 54 units at night, Humalog 6 units with meals plus sliding scale insulin, Trulicity weekly. A1c 8.7% on 07/15/23. ? Continue Lantus 50 units at night, Humalog 10 units with meals plus sliding scale insulin, can adjust as needed. Continue home gabapentin. 6. History of GERD with peptic ulcer disease and duodenitis ? EGD on 05/07/2023 showed an oozing gastric ulcer noted injected and treated with heater probe x 2 as well as acute duodenitis. No further GI bleeding since then per patient. Continue home p.o. PPI twice daily and Carafate. 7. Hypothyroidism ? TSH 48 on admit, free T4 low. No evidence of myxedema coma. Unclear if patient has been nonadherent to home Synthroid. Continue home Synthroid 150 mcg daily. Recommend repeat TSH and T4 check in 6 to 8 weeks. Chronic medical conditions: ? Morbid obesity: BMI 51 on admit. Complicates hospital course, care and prognosis. ? Hyperlipidemia: Continue home statin and fenofibrate. ? 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 ? Restless leg syndrome: Continue home ropinirole. DVT prophylaxis: SCDs CODE STATUS: Full code, verified Expected disposition: TBD Total clinical time spent by myself addressing the patient's medical issues, reviewing all the data, and collaborating with patient's care team: 35 minutes. Charges/Coding Visit Charges Inpatient E&M: 63514 Subs Hosp L2
[2023-08-28] MEDS: Cefazolin 2 GM in 0.9% Normal Saline (100mL Bag) 100 ML IV ×2 (11:35→21:31)
--- NOTE | 2023-08-28 11:59 | CASEMGMT ---
Social Work SW spoke w/Jennie from [facility]. They reviewed therapy and do think pt needs to go somewhere for rehab. SW spoke w/pt, provided to pt a list via [facility] of group home facilities in pt's insurance network, preferred geographic area, and complete w/quality and resource use data. Pt would prefer to return to [facility] but is agreeable to a referral to [facility]. SW notified d/c hospital clinic assistant Louise and she will send the referral. ARIAN Philippe
--- NOTE | 2023-08-28 12:11 | CASEMGMT ---
Addendum entered by Louise King 08/28/23 12:39: Patient has been accepted by [facility]. Precert will be submitted. Louise King, Discharge Planning Asst. Original Note: Discharge Planning Referral sent via [facility] to [facility]. Louise King, Discharge Planning Asst.
[2023-08-28 15:17] LABS: Hematocrit 23.2 % (37-47); Mean Corp Hgb Conc 30.2 g/dL (32-36); Mean Corpuscular Volume 89.6 fL (81-99); Mean Platelet Vol. 11.7 fl (6.2-12.0); Platelet Count 105 K/mm3 (150-450); RBC Distribution Width SD 53.8 fl (35.1-43.9); Red Blood Count 2.59 M/mm3 (4.2-5.4); White Blood Count 5.7 K/mm3 (4.4-11.0)
[2023-08-28 16:51] LABS: Bedside Glucose 92 mg/dL (74-106)
[2023-08-28] MEDS: Gabapentin 400 MG Capsule PO (20:48)
[2023-08-28] MEDS: Pramipexole Di-HCl 0.5 MG Tablet 1.5 MG PO (20:49)
[2023-08-28] MEDS: Atorvastatin Calcium 10 MG Tablet PO (20:49)
[2023-08-28] MEDS: Insulin Glargine-YFGN 100 UNIT/ML Pen 50 UNIT SC (20:52)
[2023-08-28 21:12] LABS: Bedside Glucose 134 mg/dL (74-106)
[2023-08-29] VITALS (18 sets, daily range): BP systolic 112–148; BP diastolic 53–73; PULSE 63–78; RESP 12–19; TEMP 35.9–36.6; O2SAT 95–100; BMI 51.0
[2023-08-29 04:28] LABS: Anion Gap 4 (5-15); BUN 54 mg/dL (7-18); BUN/Creat Ratio 22.6 RATIO (10-20); Calcium,Total 8.7 mg/dL (8.5-10.1); Chloride 114 mmol/L (98-107); Creatinine, Serum 2.39 mg/dL (0.55-1.02); EST Glomerular Filtration Rate 22 mL/min (>60); Est Glom Filt Rate - Afr Amer 26 mL/min (>60); Estimated Creatinine Clearance 33.31 ml/min; Glucose 77 mg/dL (74-106); Potassium 5.4 mmol/L (3.5-5.1); Sodium Level 148 mmol/L (136-145)
[2023-08-29] MEDS: Levothyroxine 150 MCG Tablet PO (05:53)
[2023-08-29] MEDS: Gabapentin 100 MG Capsule 200 MG PO ×2 (05:53→14:24)
[2023-08-29] MEDS: Sucralfate 1 GM Tablet PO ×2 (05:53→15:30)
[2023-08-29] MEDS: 0.9% Saline Lock 10 ML Syringe IV (05:53)
[2023-08-29 06:15] LABS: Bedside Glucose 56 mg/dL (74-106)
--- NOTE | 2023-08-29 06:20 | PCM.PN.INT ---
Assessment & Plan Assessment/Plan (1) Acute on chronic respiratory failure with hypoxia and hypercapnia: PLAN: Plan RECOMMENDATIONS: 1. Continue to wean supplemental oxygen as tolerated. 2. Recommend BiPAP therapy with naps and nightly. 3. Continue antibiotics per ID recommendations. 4. Encourage incentive spirometer use and mobilize patient as tolerated. 5. Transfuse for hemoglobin less than 7 g/dL. Continue PPI therapy. 6. Obtain gastroenterology consultation. 7. Recommend outpatient pulmonary follow-up for further optimization. The patient would benefit from a retitration polysomnogram. IMPRESSIONS: 1. Acute on chronic combined respiratory failure Most likely secondary to noncompliance with prescribed outpatient therapy. The patient may have an element of alveolar hypoventilation secondary to obesity coupled with known obstructive sleep apnea, for which the patient has been noncompliant with the use of CPAP therapy. On several occasions, the patient has been referred to the pulmonary office for further workup and management of her sleep apnea, but has failed to follow-up. She utilizes 2 L/min of supplemental oxygen throughout the day and 4 L/min nightly. The patient has responded to the use of noninvasive positive pressure ventilatory support. She is back to her baseline from a respiratory perspective following BiPAP therapy and gentle diuresis. In the interim, continue to wean supplemental oxygen as tolerated. Encourage incentive spirometer use and mobilize patient as tolerated. Continue PAP therapy with naps and nightly. 2. 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 Infectious diseases currently following. Repeat blood cultures have not demonstrated any growth to date. Plan to continue antibiotics per ID recommendations. Surface echocardiogram did not reveal any evidence of any valvular vegetations. 3. Anemia The patient presented with a hemoglobin less than 7 g/dL. She was subsequently transfused packed red blood cells with improvement in hemoglobin noted. Plan to continue to monitor H&H daily and transfuse for hemoglobin less than 7 g/dL. Continue PPI therapy as ordered. Given continued evidence of anemia, gastroenterology has been consulted. 4. Morbid obesity/medical noncompliance/hypertension/diabetes mellitus/hypothyroidism/chronic kidney disease/GERD Complicates care, management, recovery and prognosis. Continue home medications as indicated. This note was generated with [employer] software. It may contain incorrect words, spelling, and punctuation that were not noted in checking the note before signing. Subjective Subjective The patient was seen and examined at the bedside this morning. Events from the last 24 hours have been reviewed. The patient is currently afebrile, hemodynamically stable and maintaining appropriate oxygen saturations on 2 L/min via nasal cannula. Hemoglobin has dropped to 6.9 g/dL. Accordingly, gastroenterology was consulted. Objective Data Objective Data The patient's most recent lab work, culture data and imaging studies have all been personally reviewed. Pulmonary VQ scan revealed very low probability for PE. Lower extremity Doppler study was negative for DVT. Blood culture dated August 27 with positive for Staph aureus. Urine culture is currently demonstrating growth of a gram-negative jagjit, lactose outreach clinician. Vital Signs: Vital Signs Temp Pulse Resp BP Pulse Ox O2 Del Method O2 Flow Rate 97.8 F 65 16 112/55 L 95 Nasal Cannula 2 08/29/23 05:00 08/29/23 05:00 08/29/23 05:00 08/29/23 05:00 08/29/23 05:00 08/29/23 05:00 08/29/23 05:00 FiO2 30 08/29/23 03:57 Oxygen Flow Rate (L/min) 2 Oxygen Delivery Method Nasal Cannula Weight: 307 lb 1.663 oz Body Mass Index (BMI) 51.0 Intake & Output: Intake and Output for Last 24 Hours 08/27/23 08/28/23 08/29/23 23:59 23:59 23:59 Intake Total 1148.5 / 1148.5 520 / 520 100 / 100 Output Total 1000 / 1000 850 / 850 600 / 600 Balance 148.5 / 148.5 -330 / -330 -500 / -500 Lab / Micro Data Attestation: I reviewed the patient's lab results. 08/29/23 04:06 08/29/23 04:06 Labs: Laboratory Results - last 24 hr 08/26/23 20:55: Diff Path Review Reviewed 08/27/23 03:10: Diff Path Review Reviewed 08/28/23 06:27: WBC 6.4, RBC 2.69 L, Hgb 7.4 L, Hct 24.0 L, MCV 89.2, MCH 27.5, MCHC 30.8 L, RDW Std Deviation 52.4 H, RDW Coeff of Vlad 16.8 H, Plt Count 111 L, MPV 12.1 H, Neut % (Auto) Not Reportable, Absolute Neuts (auto) 4.2, Absolute Lymphs (auto) 1.30, Total Counted 100, Neutrophils % (Manual) 62, Band Neutrophils % 3, Lymphocytes % (Manual) 20, Monocytes % (Manual) 7, Eosinophils % (Manual) 6 H, Myelocytes % 2 H, Diff Path Review November, Platelet Estimate SLT DEC, RBC Morphology NORM C+C, Sodium 145, Potassium 5.3 H, Chloride 115 H, Carbon Dioxide 29.0, Anion Gap 1 L, BUN 54 H, Creatinine 2.39 H, Estim Creat Clear Calc 33.46, Est GFR (MDRD) Af Amer 26 L, Est GFR (MDRD) Non-Af 22 L, BUN/Creatinine Ratio 22.6 H, Glucose 109 H, Calcium 8.6 08/28/23 15:00: WBC 5.7, RBC 2.59 L, Hgb 7.0 L, Hct 23.2 L, MCV 89.6, MCH 27.0, MCHC 30.2 L, RDW Std Deviation 53.8 H, RDW Coeff of Vlad 17.0 H, Plt Count 105 L, MPV 11.7 08/28/23 16:31: POC Glucose 92 08/28/23 20:46: POC Glucose 134 H 08/29/23 04:06: Sodium 148 H, Potassium 5.4 H, Chloride 114 H, Carbon Dioxide 30.0, Anion Gap 4 L, BUN 54 H, Creatinine 2.39 H, Estim Creat Clear Calc 33.31, Est GFR (MDRD) Af Amer 26 L, Est GFR (MDRD) Non-Af 22 L, BUN/Creatinine Ratio 22.6 H, Glucose 77, Calcium 8.7 08/29/23 05:57: POC Glucose 56 L Micro: Microbiology 08/27/23 01:50 Urine, Clean Catch Urine Culture - Preliminary GNR lactose outreach clinician 08/27/23 01:29 Blood Culture (Wb) - Anticubital Left Bacteria Detection (PCR) - Final Staphylococcus aureus 08/27/23 01:29 Blood Culture (Wb) - Anticubital Left Blood Culture - Preliminary Staphylococcus aureus 08/27/23 01:35 Mucosa - Nasopharyngeal Respiratory Panel (PCR) - Final 08/27/23 01:50 Urine, Clean Catch Legionella Antigen - Final 08/27/23 01:50 Urine, Clean Catch Streptococcus pneumoniae Antigen (M - Final 08/27/23 01:35 Mucosa - Nasopharyngeal SARS-CoV-2, Influenza & RSV (PCR) - Final Radiography Diagnostic Testing: Radiology Impression Echocardiogram 08/28/23 09:28 Interpretation Summary The left ventricular ejection fraction is 65 %. Mild mitral annular calcification. Mild (1+) eccentric mitral valve insufficiency. Right ventricular systolic pressure estimated to be 40 mmHg. Mild tricuspid valve insufficiency. The study was technically difficult. Ordering Physician: Tobias Dickerson Referring Physician: Elsy Luna Performed By: Mallika Lucero, SHASHA, RVT Physical Exam Const alert and no apparent distress Constitutional Narrative: Morbidly obese. General Appearance: cooperative HEENT normocephalic and head/scalp atraumatic Eyes PERRL, EOMs intact bilaterally and conjunctivae normal Neck supple General: trachea midline Chest inspection of chest normal Resp normal respiratory effort Auscultation: diminished lung sounds; Negative for rales, rhonchi or wheezes Cardio regular rate and regular rhythm GI normal to inspection, nondistended, normoactive bowel sounds Extremity General Extremity: edema bilateral lower extremity; Negative for clubbing Skin no rashes or lesions noted Neuro CN's II-XII intact bilaterally and no focal motor deficits Psych Mood & Affect: flat affect Charges/Coding Visit Charges Inpatient E&M: 41288 Subs Hosp L2
[2023-08-29 06:30] LABS: Absolute Lymphocyte Count 0.77 X10^3/uL (0.83-4.51); Basophil# 0.02 X10^3/uL; Basophil% 0.4 % (0-1); Eosinophil# 0.19 X10^3/uL; Hematocrit 22.8 % (37-47); Hemoglobin 6.9 g/dL (12.0-15.0); Lymphocyte # 0.77 X10^3/ul (0.83-4.51); Mean Corp Hgb Conc 30.3 g/dL (32-36); Mean Corpuscular Hgb 27.4 pg (27.0-32.0); Mean Corpuscular Volume 90.5 fL (81-99); Mean Platelet Vol. 11.9 fl (6.2-12.0); Monocyte# 0.62 X10^3/uL; Monocyte% 12.9 % (0-10); NRBC Flagged by Analyzer 0.6 % (0-5); Neutrophil # 2.98 X10^3/uL (2.7-7.7); Neutrophil % 61.9 % (47-70); POSITIVE COUNT YES; Platelet Count 98 K/mm3 (150-450); RBC Distribution Width CV 17.1 % (11.6-14.6); RBC Distribution Width SD 55.6 fl (35.1-43.9); Red Blood Count 2.52 M/mm3 (4.2-5.4); White Blood Count 4.8 K/mm3 (4.4-11.0)
[2023-08-29 06:40] LABS: Bedside Glucose 71 mg/dL (74-106)
[2023-08-29 07:23] LABS: Pathologist Review Reviewed
[2023-08-29] MEDS: Ipratropium/Albuterol Sulfate 3 ML AMPUL.NEB INHALATION ×4 (07:40→19:51)
--- NOTE | 2023-08-29 10:54 | CASEMGMT ---
Social Work Pt was accepted at [facility] and precert started, however OT eval pending, pt likely to be seen today. SW let pt know that [facility] did accept and started precert. SW had spoken to the doctor earlier and he states pt will be here through the weekend, SW spoke w/pt about this and she was aware. SW to follow up Friday. ARIAN Philippe
[2023-08-29] MEDS: Cefazolin 2 GM in 0.9% Normal Saline (100mL Bag) 100 ML IV (10:59)
[2023-08-29] MEDS: Pantoprazole Sodium 40 MG Tablet PO ×2 (11:00→21:17)
[2023-08-29] MEDS: Escitalopram Oxalate 10 MG Tablet PO (11:00)
[2023-08-29] MEDS: Fenofibrate 48 MG Tablet PO (11:00)
[2023-08-29] MEDS: guaiFENesin 1,200 MG Tablet 1200 MG PO ×2 (11:00→21:17)
[2023-08-29] MEDS: Nystatin Powder 15gm Bottle 1 APPLIC TOPICAL ×2 (11:04→22:17)
[2023-08-29] MEDS: Menthol/Lanolin/Calamine/Znox 113 GM Tube 1 APPLIC TOPICAL ×2 (11:04→21:15)
--- NOTE | 2023-08-29 11:05 | CASEMGMT ---
Discharge Planning OT eval sent via [facility] to [facility]. Louise King, Discharge Planning Asst.
--- NOTE | 2023-08-29 11:20 | EGD_PTH ---
PATHOLOGY RESULTS PATIENT: TOBIN BIGGS LOC: [facility] U#:[id number] AGE/SX: 63/F ROOM: [facility] RE08/26/[address]: Dr. Mike Hassan DO : 1960 BED: 1 DIS: 09/01/2023 SPEC #: [id number] RECD: 09/01/23 07:29 STATUS: KADI REQ #: [id number] SYDNI: 08/29/23 11:[address]: Holden Calderon DEPT: SURGICAL PATHOLOGY RECD BY: Melva Wen ENTERED: 09/01/23 07:29 SP TYPE: EGD BIOPSY OTHR DR: DO Dr. Jose Luis Dorantes MD Dr. Prakash Chand, MD Dr. Robert Leininger, MD Tamara Faith Howard, [employer] Tissues: Duodenum, NOS Procedures: Surgery Specimen Level IV Comments: @ Ordering doctor for SUIV edited from to @ radha MARIN at 09/01/23 1421 @ Submitting doctor edited from to @ radha MARIN at 09/01/23 1421 HEADER OPERATION: EGD with cautery PRE-OP DIAGNOSIS: GI bleed TISSUE SUBMITTED: Duodenum MICROSCOPIC DIAGNOSIS Duodenum, biopsy: Fragments of duodenal mucosa with denuded epithelium and nonspecific chronic inflammation. PORFIRIO:haroldo 09/02/2023 MICROSCOPIC DESCRIPTION Slides are reviewed. GROSS DESCRIPTION Received in fixative is one container labeled with the patient's name and designated duodenum. The specimen consists of multiple irregular fragments of light echavarria soft tissue that in aggregate measure 1.0 x 0.3 x 0.1 cm. The specimen is totally submitted in one cassette. / PORFIRIO:haroldo 09/01/2023 TC:3 CPT: 72376
--- NOTE | 2023-08-29 11:20 | PCM.PN.REN ---
Documented by User: KELVIN Gomez 08/29/23 11:27 Subjective Subjective Sitting in chair. No overnight events. To get 1 unit of blood. Objective Data Objective Data Vital Signs: Vital Signs Temp Pulse Resp BP Pulse Ox O2 Del Method O2 Flow Rate 97.7 F L 67 16 115/53 L 100 Nasal Cannula 3 08/29/23 11:10 08/29/23 11:10 08/29/23 11:10 08/29/23 11:10 08/29/23 11:10 08/29/23 11:10 08/29/23 11:10 FiO2 30 08/29/23 03:57 Oxygen Flow Rate (L/min) 3 Oxygen Delivery Method Nasal Cannula Weight: 139.3 kg Body Mass Index (BMI) 51.0 Intake & Output: Intake and Output for Last 24 Hours 08/27/23 08/28/23 08/29/23 23:59 23:59 23:59 Intake Total 1148.5 / 1148.5 520 / 520 100 / 100 Output Total 1000 / 1000 850 / 850 600 / 600 Balance 148.5 / 148.5 -330 / -330 -500 / -500 Lab / Micro Data 08/29/23 04:06 08/29/23 04:06 Labs: Laboratory Results - last 24 hr 08/27/23 06:45: Blood Type B POSITIVE, Antibody Screen NEGATIVE, Crossmatch See Detail 08/28/23 06:27: Diff Path Review Reviewed 08/28/23 15:00: WBC 5.7, RBC 2.59 L, Hgb 7.0 L, Hct 23.2 L, MCV 89.6, MCH 27.0, MCHC 30.2 L, RDW Std Deviation 53.8 H, RDW Coeff of Vlad 17.0 H, Plt Count 105 L, MPV 11.7 08/28/23 16:31: POC Glucose 92 08/28/23 20:46: POC Glucose 134 H 08/29/23 04:06: WBC 4.8, RBC 2.52 L, Hgb 6.9 L, Hct 22.8 L, MCV 90.5, MCH 27.4, MCHC 30.3 L, RDW Std Deviation 55.6 H, RDW Coeff of Vlad 17.1 H, Plt Count 98 L, MPV 11.9, Immature Gran % (Auto) 4.800 H, Neut % (Auto) 61.9, Lymph % (Auto) 16.0 L, [place] % (Auto) 12.9 H, Eos % (Auto) 4.0, Baso % (Auto) 0.4, Absolute Neuts (auto) 3.0, Absolute Lymphs (auto) 0.77 L, Nucleated RBC % 0.6, Sodium 148 H, Potassium 5.4 H, Chloride 114 H, Carbon Dioxide 30.0, Anion Gap 4 L, BUN 54 H, Creatinine 2.39 H, Estim Creat Clear Calc 33.31, Est GFR (MDRD) Af Amer 26 L, Est GFR (MDRD) Non-Af 22 L, BUN/Creatinine Ratio 22.6 H, Glucose 77, Calcium 8.7 08/29/23 05:57: POC Glucose 56 L 08/29/23 06:21: POC Glucose 71 L Micro: Microbiology 08/27/23 01:47 Blood Culture (Wb) - Anticubital Right Blood Culture - Preliminary No growth in 48 hours. 08/27/23 01:50 Urine, Clean Catch Urine Culture - Preliminary Klebsiella aerogenes 08/27/23 01:29 Blood Culture (Wb) - Anticubital Left Bacteria Detection (PCR) - Final Staphylococcus aureus 08/27/23 01:29 Blood Culture (Wb) - Anticubital Left Blood Culture - Preliminary Staphylococcus aureus 08/27/23 01:35 Mucosa - Nasopharyngeal Respiratory Panel (PCR) - Final 08/27/23 01:50 Urine, Clean Catch Legionella Antigen - Final 08/27/23 01:50 Urine, Clean Catch Streptococcus pneumoniae Antigen (M - Final 08/27/23 01:35 Mucosa - Nasopharyngeal SARS-CoV-2, Influenza & RSV (PCR) - Final Radiography Diagnostic Testing: Radiology Impression Echocardiogram 08/28/23 09:28 Interpretation Summary The left ventricular ejection fraction is 65 %. Mild mitral annular calcification. Mild (1+) eccentric mitral valve insufficiency. Right ventricular systolic pressure estimated to be 40 mmHg. Mild tricuspid valve insufficiency. The study was technically difficult. Ordering Physician: Tobias Dickerson Referring Physician: Elsy Luna Performed By: Mallika Lucero, SHASHA, RVT Physical Exam Narrative Alert awake oriented x 3 no obvious distress no JVD s1s2 no murmurs lungs clear anteriorly abdomen soft Trace bilateral lower extremity edema Assessment & Plan Assessment/Plan (1) History of renal insufficiency: (2) GASTON (acute kidney injury): PLAN: Baseline creatinine had been around 1.5-2 with several fluctuations. In June 2023 serum creatinine ranging 2.3 to 2.6 mg/dL. Urine analysis shows significant amount of proteinuria, few WBC, few RBCs. In March she had serologic workup: ANCA negative, serum protein electrophoresis negative, double-stranded DNA negative Urine protein creatinine ratio 9.8 g, possible diabetes related Pending urine immunofixation and anti-GBM antibody Renal ultrasound was negative. - Acute renal failure versus some progression of CKD now at baseline, GASTON is likely hemodynamic. Serum creatinine 2.3 on admission and has been 2.3 mg/dL over 4 days. No acute indication for [employer]. Patient has good urine output. Previous echocardiogram with preserved ejection fraction, pulmonary hypertension could not be assessed due to insufficient tricuspid regurgitation flow. V/Q scan low probability for PE. Venous Doppler negative DVT BNP is on the lower side at 110, although this could be artificially low in someone with morbid obesity Chest x-ray does show edema/infiltrates. Clinically she does have moderate amount of peripheral edema. Responded well to dose of IV Lasix, breathing improved. Home Lasix dose was 20 mg daily. Can use lasix as needed. Patient is getting 1 unit PRBC now, will give low dose lasix which may also help with kaluresis, bps have improved - K+ 5.4 today. Stopped oral potassium yesterday. Added low K+ diet restrictions. To get low dose lasix after PRBC today. - MSSA bacteremia. Echo no evidence vegetations, ef 65%. Repeat BC drawn 08/28 pending Documented by User: Dr. Jose Luis Lechuga MD 08/29/23 12:51 Objective Data Lab / Micro Data 08/29/23 04:06 08/29/23 04:06 Assessment & Plan Assessment/Plan (1) History of renal insufficiency: (2) GASTON (acute kidney injury): PLAN: Baseline creatinine had been around 1.5-2 with several fluctuations. In June 2023 serum creatinine ranging 2.3 to 2.6 mg/dL. Urine analysis shows significant amount of proteinuria, few WBC, few RBCs. In March she had serologic workup: ANCA negative, serum protein electrophoresis negative, double-stranded DNA negative Urine protein creatinine ratio 9.8 g, possible diabetes related Pending urine immunofixation and anti-GBM antibody Renal ultrasound was negative. - Acute renal failure versus some progression of CKD now at baseline, GASTON is likely hemodynamic. Serum creatinine 2.3 on admission and has been 2.3 mg/dL over 4 days. No acute indication for [employer]. Patient has good urine output. Previous echocardiogram with preserved ejection fraction, pulmonary hypertension could not be assessed due to insufficient tricuspid regurgitation flow. V/Q scan low probability for PE. Venous Doppler negative DVT BNP is on the lower side at 110, although this could be artificially low in someone with morbid obesity Chest x-ray does show edema/infiltrates. Clinically she does have moderate amount of peripheral edema. Responded well to dose of IV Lasix, breathing improved. Home Lasix dose was 20 mg daily. Can use lasix as needed. Patient is getting 1 unit PRBC now, will give low dose lasix which may also help with kaluresis, bps have improved - K+ 5.4 today. Stopped oral potassium yesterday. Added low K+ diet restrictions. To get low dose lasix after PRBC today. - MSSA bacteremia. Echo no evidence vegetations, ef 65%. Repeat BC drawn 08/28 pending Agree with above add oral lasix for maintenance Urine GUIDO pending anti GBM pending most likely nephrotic syndrome related to diabetes
[2023-08-29 11:24] LABS: Bedside Glucose 120 mg/dL (74-106)
--- NOTE | 2023-08-29 12:27 | PCM.PN.ID ---
Physical Exam Narrative Feeling better, breathing improved, no fever. No dysuria. Const alert and no apparent distress Resp Auscultation: diminished lung sounds Cardio regular rate and regular rhythm GI soft to palpation, non-tender and non-distended Extremity General Extremity: edema Skin no rashes or lesions noted ID ID: Route of nutrition/ use of supplements: [] Nutritional Intake: [] IV Site: [] Lyons Catheter: [] Assessment & Plan Assessment/Plan (1) Respiratory failure: (2) Congestive heart failure: (3) MSSA bacteremia: PLAN: MSSA bacteremia per pcr, several weeks of worsened edema/orthopnea, splinter hemorrhage on L thumb - concern for endocarditis. Ordered CY, repeat bcx pending. Had MSSA bacteremia 04/2023 as well. Ucx with klebs, moderate pyuria; will change cefazolin to cefepime to cover blood and urine. Will follow
[2023-08-29] MEDS: Cefepime HCl 2 GM in 0.9% Normal Saline (100mL MB+) 100 ML IV ×2 (14:23→21:14)
[2023-08-29] MEDS: Furosemide 20 MG/2 ML VIAL IV (14:24)
--- NOTE | 2023-08-29 14:49 | PCM.PN.HOSP ---
Reason for Visit Reason for Visit: Diagnoses Methicillin susceptible Staphylococcus aureus infection as the cause of diseases classified elsewhere (08/26/23) Acute on chronic diastolic (congestive) heart failure (08/26/23) Heart failure, unspecified (08/26/23) Acute and chronic respiratory failure with hypoxia (08/26/23) Acute and chronic respiratory failure with hypercapnia (08/26/23) Respiratory failure, unspecified, unspecified whether with hypoxia or hypercapnia (08/26/23) Acute kidney failure, unspecified (08/26/23) Bacteremia (08/26/23) Personal history of other diseases of urinary system (08/26/23) Subjective Subjective No acute events overnight. Patient seen at bedside this morning. Patient was sitting up comfortably in bedside chair, conversing normally, no acute distress. Patient appeared to have better energy this morning than previous days. Denied any acute pain or discomforts morning. Stated that she had better appetite today than previous days. No other acute concerns this time. Objective Data Objective Data Vital Signs: Vital Signs Temp Pulse Resp BP Pulse Ox O2 Del Method O2 Flow Rate 96.6 F L 78 16 125/57 H 97 Nasal Cannula 3 08/29/23 14:07 08/29/23 14:07 08/29/23 14:07 08/29/23 14:07 08/29/23 14:07 08/29/23 14:07 08/29/23 14:07 FiO2 30 08/29/23 03:57 Oxygen Flow Rate (L/min) 3 Oxygen Delivery Method Nasal Cannula Weight: 139.3 kg Body Mass Index (BMI) 51.0 Intake & Output: Intake and Output for Last 24 Hours 08/27/23 08/28/23 08/29/23 23:59 23:59 23:59 Intake Total 1148.5 / 1148.5 520 / 520 211 / 211 Output Total 1000 / 1000 850 / 850 600 / 600 Balance 148.5 / 148.5 -330 / -330 -389 / -389 Lab / Micro Data 08/29/23 04:06 08/29/23 04:06 Labs: Laboratory Results - last 24 hr 08/27/23 06:45: Blood Type B POSITIVE, Antibody Screen NEGATIVE, Crossmatch See Detail 08/28/23 06:27: Diff Path Review Reviewed 08/28/23 15:00: WBC 5.7, RBC 2.59 L, Hgb 7.0 L, Hct 23.2 L, MCV 89.6, MCH 27.0, MCHC 30.2 L, RDW Std Deviation 53.8 H, RDW Coeff of Vlad 17.0 H, Plt Count 105 L, MPV 11.7 08/28/23 16:31: POC Glucose 92 08/28/23 20:46: POC Glucose 134 H 08/29/23 04:06: WBC 4.8, RBC 2.52 L, Hgb 6.9 L, Hct 22.8 L, MCV 90.5, MCH 27.4, MCHC 30.3 L, RDW Std Deviation 55.6 H, RDW Coeff of Vlad 17.1 H, Plt Count 98 L, MPV 11.9, Immature Gran % (Auto) 4.800 H, Neut % (Auto) 61.9, Lymph % (Auto) 16.0 L, [place] % (Auto) 12.9 H, Eos % (Auto) 4.0, Baso % (Auto) 0.4, Absolute Neuts (auto) 3.0, Absolute Lymphs (auto) 0.77 L, Nucleated RBC % 0.6, Sodium 148 H, Potassium 5.4 H, Chloride 114 H, Carbon Dioxide 30.0, Anion Gap 4 L, BUN 54 H, Creatinine 2.39 H, Estim Creat Clear Calc 33.31, Est GFR (MDRD) Af Amer 26 L, Est GFR (MDRD) Non-Af 22 L, BUN/Creatinine Ratio 22.6 H, Glucose 77, Calcium 8.7 08/29/23 05:57: POC Glucose 56 L 08/29/23 06:21: POC Glucose 71 L 08/29/23 11:02: POC Glucose 120 H Micro: Microbiology 08/27/23 01:47 Blood Culture (Wb) - Anticubital Right Blood Culture - Preliminary No growth in 48 hours. 08/27/23 01:50 Urine, Clean Catch Urine Culture - Preliminary Klebsiella aerogenes 08/27/23 01:29 Blood Culture (Wb) - Anticubital Left Bacteria Detection (PCR) - Final Staphylococcus aureus 08/27/23 01:29 Blood Culture (Wb) - Anticubital Left Blood Culture - Preliminary Staphylococcus aureus 08/27/23 01:35 Mucosa - Nasopharyngeal Respiratory Panel (PCR) - Final 08/27/23 01:50 Urine, Clean Catch Legionella Antigen - Final 08/27/23 01:50 Urine, Clean Catch Streptococcus pneumoniae Antigen (M - Final 08/27/23 01:35 Mucosa - Nasopharyngeal SARS-CoV-2, Influenza & RSV (PCR) - Final Radiography Diagnostic Testing: Radiology Impression Echocardiogram 08/28/23 09:28 Interpretation Summary The left ventricular ejection fraction is 65 %. Mild mitral annular calcification. Mild (1+) eccentric mitral valve insufficiency. Right ventricular systolic pressure estimated to be 40 mmHg. Mild tricuspid valve insufficiency. The study was technically difficult. Ordering Physician: Tobias Dickerson Referring Physician: Elsy Luna Performed By: Mallika Lucero RDCS, RVT Physical Exam Const alert and oriented x3 Constitutional Narrative: Elderly female, morbidly obese, energy appears improved today, sitting up comfortably in bedside chair, conversing normally, no acute distress. General Appearance: cooperative HEENT normocephalic, head/scalp atraumatic, hearing grossly normal bilaterally, nasal mucous membranes and turbinates normal and moist oral mucous membranes Eyes PERRL, EOMs intact bilaterally and conjunctivae normal Neck full ROM, no lymphadenopathy and supple Lymph Lymphatic: no lymphadenopathy noted Chest inspection of chest normal Resp Resp Narrative: No increased work of breathing noted on 2 L nasal cannula. Moderately diminished breath sounds bilaterally, no wheezing or crackles noted, similar to previous. Cardio regular rate, regular rhythm, no murmurs and peripheral pulses 2+ throughout GI normal to inspection, nondistended, normoactive bowel sounds, soft to palpation, non-tender and non-distended Back/Spine normal ROM Extremity full ROM Extremity Narrative: +2-3 lower extremity edema noted, stable. Skin no rashes or lesions noted Neuro no focal motor deficits and no sensory deficits noted Speech: speech normal Psych mental status grossly normal Assessment & Plan Assessment/Plan (1) Acute on chronic heart failure with preserved ejection fraction (HFpEF): (2) Acute on chronic respiratory failure with hypoxia and hypercapnia: (3) GASTON (acute kidney injury): PLAN: Plan Patient is a 63-year-old female who presented to [facility] ED on 08/26/2023 with worsening shortness of breath at rest. 1. Acute on chronic combined respiratory failure, improved Suspect secondary to noncompliance with prescribed outpatient therapy, has not been compliant with home CPAP. May also have an element of obesity hypoventilation syndrome. Per resume writer, patient has been referred to pulmonology for sleep apnea multiple occasions but has failed to follow-up. Currently using 2 L nasal cannula during the day and 4 L nasal cannula at night. ? Tub Mender following. Patient returned to her baseline on morning of 08/27 with positive pressure ventilation. BiPAP therapy with naps and at night. Okay for gentle diuresis as needed. Encourage incentive spirometry use and mobilize patient as able. Okay for transfer out of ICU on 08/29. 2. Acute on chronic anemia Hemoglobin 8.1 on admit, down trended to hemoglobin 6.9 on hospital day 2. Baseline hemoglobin appears to be around 7-8. Seems most likely due to lab draws and hemodilution on admission, but patient does have history of peptic ulcer disease with duodenitis requiring EGD in 04/2023. Patient denies any dark or bloody stools. ? Gastroenterology consulted. Hemoglobin 6.9 on 08/29, will transfuse second unit of blood today. Continue home PPI therapy. N.p.o. at midnight for possible EGD tomorrow. 3. MSSA bacteremia ? Blood cultures 08/27 positive for MSSA. Infectious disease following. Splinter hemorrhage on left thumb concerning for endocarditis. TTE 08/28 did not show any evidence of endocarditis or significant valvular dysfunction. Per ID, CY ordered on 08/29. Antibiotics narrowed to Ancef on 08/28. Repeat blood cultures pending. Notably did have MSSA bacteremia in 04/2023 as well. 4. GASTON on CKD stage IV ? Nephrology following. Patient appears to have mild GASTON on CKD, versus progression of CKD now at new baseline. Urine output has been adequate. Restarted on home Lasix 20 mg daily on 08/28. Monitor. 5. Type 2 diabetes mellitus with hyperglycemia and with diabetic neuropathy Blood glucose in the 400s on admission, no evidence of DKA. Home regimen of Lantus 54 units at night, Humalog 6 units with meals plus sliding scale insulin, Trulicity weekly. A1c 8.7% on 07/15/23. ? Decreased to Lantus 40 units at night, Humalog 10 units with meals plus sliding scale insulin given some borderline low sugars, continue to adjust as needed. Continue home gabapentin. 6. History of GERD with peptic ulcer disease and duodenitis ? EGD on 05/07/2023 showed an oozing gastric ulcer noted injected and treated with heater probe x 2 as well as acute duodenitis. No further GI bleeding since then per patient. Continue home p.o. PPI twice daily and Carafate. 7. Hypothyroidism ? TSH 48 on admit, free T4 low. No evidence of myxedema coma. Unclear if patient has been nonadherent to home Synthroid. Continue home Synthroid 150 mcg daily. Recommend repeat TSH and T4 check in 6 to 8 weeks. Chronic medical conditions: ? Morbid obesity: BMI 51 on admit. Complicates hospital course, care and prognosis. ? Hyperlipidemia: Continue home statin and fenofibrate. ? 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 ? Restless leg syndrome: Continue home ropinirole. DVT prophylaxis: SCDs CODE STATUS: Full code, verified Expected disposition: TBD Total clinical time spent by myself addressing the patient's medical issues, reviewing all the data, and collaborating with patient's care team: 35 minutes. Charges/Coding Visit Charges Inpatient E&M: 48894 Subs Hosp L2
[2023-08-29] MEDS: Insulin Lispro 100 UNIT/ML INSULN.PEN 10 UNIT SC (15:31)
[2023-08-29] MEDS: Insulin Lispro 100 UNIT/ML INSULN.PEN SC ×2 (15:32→21:24)
[2023-08-29 15:51] LABS: Bedside Glucose 152 mg/dL (74-106)
--- NOTE | 2023-08-29 18:25 | NURSING ---
report received from Madalyn DENTAL ASSISTANT. patient arrived to PCU 101 in stable condition.
--- NOTE | 2023-08-29 19:52 | CON.PCM.GI_ITS ---
HPI Consult Data Date of Consult: 08/29/23 HPI Narrative Reason for Consultation: Anemia HPI Narrative: TOBIN BIGGS, is a 63 F with history of heart failure on patient on home oxygen 2 L during daytime and 4 L at night was brought to ED by EMS for shortness of breath. Patient has CPAP at home but it is not working. She complained of shortness of breath for past 4 days with a gradual worsening but she stated she is short of breath for about 3 weeks probably worsened over 4 days.. Denies any chest pain or pressure or discomfort. This is started with leg swelling, left leg more swollen than right for about 4 weeks. Admitted to icu, started on zosyn 08/27. She was identified as having MSSA bacteremia. She had MSSA bacteremia 04/2023, CY neg, completed course with po linezolid after bcx cleared rapidly. I saw her in consultation back in April 2023. She diagnosed with acute on chronic anemia. She was placed on pantoprazole. Iron study showed evidence of iron deficiency anemia. She had EGD which showed oozing gastric ulcers with visible vessel which was treated with a heater probe and injected. She was placed on p.o. pantoprazole and sucralfate. Patient remained stable and was discharged to a [facility] facility on 05/08/2023. She was discharged on p.o. pantoprazole as well as sucralfate. I was asked if you were in consultation again because she has decreasing hemoglobin. [facility] Medical History (HFpEF) heart failure with preserved ejection fraction GASTON (acute kidney injury) Anemia Anxiety Anxiety and depression Chest pain Chronic acquired lymphedema Chronic anemia Chronic kidney disease CKD (chronic kidney disease), stage III CPAP (continuous positive airway pressure) dependence Diabetes mellitus with diabetic polyneuropathy Diabetes mellitus, type 2 Gastroparesis History of diabetes mellitus History of fever HLD (hyperlipidemia) HTN (hypertension) Hypothyroidism Hypoxia Malaise Morbid obesity On home oxygen therapy SACHIN (obstructive sleep apnea) Pleural effusion, left Pulmonary edema Retinal hemorrhage Sleep apnea Home Medications atorvastatin 10 mg tablet 10 mg PO DAILY cholesterol 09/24/22 [History Last Taken 04/13/23] escitalopram oxalate 10 mg tablet 10 mg PO DAILY anxiety 09/24/22 [History Last Taken 04/13/23] fenofibrate nanocrystallized 48 mg tablet (Tricor) 48 mg PO DAILY cholesterol 09/24/22 [History Last Taken 04/13/23] furosemide 20 mg tablet (Lasix) 20 mg PO DAILY EDEMA 03/05/23 [History Last Taken 04/13/23] gabapentin 100 mg capsule 200 mg PO BID PAIN 03/05/23 [History Last Taken 04/13/23] levothyroxine 150 mcg tablet 150 mcg PO DAILY@0600 SEE PCP 03/05/23 [History Last Taken Unknown] ropinirole 4 mg tablet 4 mg PO QHS restless legs 03/05/23 [History Last Taken 05/01/23] dulaglutide 0.75 mg/0.5 mL subcutaneous pen injector (Trulicity) 0.75 mg subcut .once a week dm2 04/14/23 [History Last Taken 08/15/23] gabapentin 400 mg capsule 400 mg PO QHS SEE PCP 04/14/23 [History Last Taken 04/13/23] insulin glargine 100 unit/mL (3 mL) subcutaneous pen (Lantus Solostar U-100 Insulin) 54 unit subcut QHS SEE PCP 04/14/23 [History Last Taken Unknown] insulin lispro 100 unit/mL subcutaneous pen 1 sliding scale dose subcut TIDCM SEE PCP 04/14/23 [History Last Taken Unknown] metoclopramide HCl 5 mg tablet 5 mg PO BID SEE PCP 04/14/23 [History Last Taken Unknown] omega 8-bfp-byk-fish oil 300 mg-1,000 mg capsule (Fish Oil) 1 cap PO BID VITAMIN 04/14/23 [History Last Taken 04/13/23] pen needle, diabetic 31 gauge x 1/4 (Easy Touch) 04/14/23 [History Last Taken Unknown] potassium chloride 10 mEq capsule,extended release 10 meq PO DAILY SEE PCP 04/14/23 [History Last Taken 05/01/23] artifi.tears(hypromellose)(PF) 0.3 % eye drops 1 drp EACH EYE Q2H PRN retinal hemmorage 04/15/23 [History Last Taken Unknown] pantoprazole 40 mg tablet,delayed release 40 mg PO BID #60 tabs 05/08/23 [Rx Last Taken Unknown] sucralfate 1 gram tablet (Carafate) 1 g PO BID #60 tabs 05/08/23 [Rx Last Taken Unknown] acetaminophen 325 mg tablet 650 mg PO Q6H PRN pain 08/26/23 [History Last Taken Unknown] difluprednate 0.05 % eye drops 1 drp ophthalmic (eye) .QID 08/26/23 [History Last Taken Unknown] insulin lispro 100 unit/mL subcutaneous pen 6 unit subcut TID 08/26/23 [History Last Taken Unknown] nystatin 100,000 unit/gram topical powder (Nystop) 1 applic topical BID 08/26/23 [History Last Taken Unknown] Allergy/AdvReac Type Severity Reaction Status Date / Time No Known Allergies Allergy Verified 07/14/23 18:45 Family History Mother Heart disease Hypertension Diabetes Father Prostate cancer Surgical History H/O cataract removal with insertion of prosthetic lens History of cholecystectomy History of surgery on lower extremity Social History housing: assisted Smoking Status: Never smoker alcohol intake: never substance use type: does not use ROS ROS Narrative 10 systems were reviewed with pertinent positives as noted in the HPI above. Physical Exam Const alert and no apparent distress Constitutional Narrative: Morbidly obese. General Appearance: cooperative HEENT normocephalic and head/scalp atraumatic Eyes PERRL, EOMs intact bilaterally and conjunctivae normal Neck supple General: trachea midline Chest inspection of chest normal Resp normal respiratory effort Auscultation: diminished lung sounds; Negative for rales, rhonchi or wheezes Cardio regular rate and regular rhythm GI normal to inspection, nondistended, normoactive bowel sounds Extremity General Extremity: edema bilateral lower extremity; Negative for clubbing Skin no rashes or lesions noted Neuro CN's II-XII intact bilaterally and no focal motor deficits Psych Mood & Affect: flat affect Lab / Micro Data 08/29/23 04:06 08/29/23 04:06 Labs: Laboratory Results - last 24 hr 08/27/23 06:45: Blood Type B POSITIVE, Antibody Screen NEGATIVE, Crossmatch See Detail 08/27/23 11:25: Urine Immunofixation Comment 08/28/23 06:27: Diff Path Review Reviewed 08/28/23 20:46: POC Glucose 134 H 08/29/23 04:06: WBC 4.8, RBC 2.52 L, Hgb 6.9 L, Hct 22.8 L, MCV 90.5, MCH 27.4, MCHC 30.3 L, RDW Std Deviation 55.6 H, RDW Coeff of Vlad 17.1 H, Plt Count 98 L, MPV 11.9, Immature Gran % (Auto) 4.800 H, Neut % (Auto) 61.9, Lymph % (Auto) 16.0 L, [place] % (Auto) 12.9 H, Eos % (Auto) 4.0, Baso % (Auto) 0.4, Absolute Neuts (auto) 3.0, Absolute Lymphs (auto) 0.77 L, Nucleated RBC % 0.6, Sodium 148 H, Potassium 5.4 H, Chloride 114 H, Carbon Dioxide 30.0, Anion Gap 4 L, BUN 54 H , Creatinine 2.39 H, Estim Creat Clear Calc 33.31, Est GFR (MDRD) Af Amer 26 L, Est GFR (MDRD) Non-Af 22 L, BUN/Creatinine Ratio 22.6 H, Glucose 77, Calcium 8.7 08/29/23 05:57: POC Glucose 56 L 08/29/23 06:21: POC Glucose 71 L 08/29/23 11:02: POC Glucose 120 H 08/29/23 15:30: POC Glucose 152 H Micro: Microbiology 08/27/23 01:47 Blood Culture (Wb) - Anticubital Right Blood Culture - Preliminary No growth in 48 hours. 08/27/23 01:50 Urine, Clean Catch Urine Culture - Preliminary Klebsiella aerogenes 08/27/23 01:29 Blood Culture (Wb) - Anticubital Left Bacteria Detection (PCR) - Final Staphylococcus aureus 08/27/23 01:29 Blood Culture (Wb) - Anticubital Left Blood Culture - Preliminary Staphylococcus aureus Assessment & Plan Assessment/Plan (1) Acute hypoxic respiratory failure: (2) History of diabetes mellitus: (3) Diabetes mellitus with diabetic polyneuropathy: QUALIFIERS: Diabetes mellitus type: type 2 Diabetes mellitus long term care pharmacist insulin use: with usp use Qualified Code(s): E11.42 - Type 2 diabetes mellitus with diabetic polyneuropathy; Z79.4 - FPC (current) use of insulin PLAN: Plan Pancytopenia from unknown cause. She is also has a mixed iron deficiency anemia along with anemia chronic disease. She will undergo an upper endoscopy to evaluate the GI tract due to risk factors for GI blood loss upper GI tract due to aspirin and prednisone. She was explained alternatives, risk, benefits include not withstanding bleeding, infection, sepsis, perforation, need for emergent and . She have an ASA of 3. NPO after midnight for egd in the am. Charges/Coding Visit Charges Inpatient E&M: 95413 Init Hosp L3
[2023-08-29] MEDS: Gabapentin 400 MG Capsule PO (21:14)
[2023-08-29] MEDS: Pramipexole Di-HCl 0.5 MG Tablet 1.5 MG PO (21:17)
[2023-08-29] MEDS: Atorvastatin Calcium 10 MG Tablet PO (21:17)
[2023-08-29] MEDS: Insulin Glargine-YFGN 100 UNIT/ML Pen 13 UNIT SC (22:55)
[2023-08-29 23:29] LABS: Bedside Glucose 204 mg/dL (74-106)
[2023-08-30] VITALS (17 sets, daily range): BP systolic 90–134; BP diastolic 43–74; PULSE 58–79; RESP 14–19; TEMP 35.7–36.7; O2SAT 95–100; BMI 51.0
--- NOTE | 2023-08-30 05:55 | EKG12_ITS ---
Test Reason : PRE-OP Blood Pressure : / mmHG Vent. Rate : 062 BPM Atrial Rate : 062 BPM P-R Int : 210 ms QRS Dur : 084 ms QT Int : 430 ms P-R-T Axes : 047 -17 120 degrees QTc Int : 436 ms Sinus rhythm with 1st degree A-V block T wave abnormality, consider lateral ischemia Abnormal ECG Confirmed by Dawood Rand ([id number]), offline editor HARSHIL CARDONA ([id number]) on 09/02/2023 9:40:03 AM Referred By: Confirmed By:Dawood Rand
[2023-08-30 06:13] LABS: Hematocrit 25.4 % (37-47); Hemoglobin 7.9 g/dL (12.0-15.0); Mean Corp Hgb Conc 31.1 g/dL (32-36); Mean Corpuscular Volume 90.1 fL (81-99); POSITIVE COUNT YES; Platelet Count 89 K/mm3 (150-450); RBC Distribution Width CV 16.6 % (11.6-14.6); Red Blood Count 2.82 M/mm3 (4.2-5.4); White Blood Count 4.7 K/mm3 (4.4-11.0)
[2023-08-30 06:20] LABS: Scan Indicated on CBC? Y/N NO
[2023-08-30 06:37] LABS: Prothrombin Time (Protime)PT. 13.2 SECONDS (11.7-14.9)
[2023-08-30 06:38] LABS: Partial Thromboplast Time 33.9 Seconds (24.1-36.2)
[2023-08-30] MEDS: Ipratropium/Albuterol Sulfate 3 ML AMPUL.NEB INHALATION ×5 (06:47→23:50)
[2023-08-30 06:48] LABS: Anion Gap 3 (5-15); BUN 53 mg/dL (7-18); BUN/Creat Ratio 25.4 RATIO (10-20); Chloride 113 mmol/L (98-107); Creatinine, Serum 2.09 mg/dL (0.55-1.02); EST Glomerular Filtration Rate 25 mL/min (>60); Est Glom Filt Rate - Afr Amer 31 mL/min (>60); Estimated Creatinine Clearance 38.06 ml/min; Glucose 169 mg/dL (74-106); Magnesium 2.1 mg/dL (1.6-2.6); Potassium 5.5 mmol/L (3.5-5.1); Sodium Level 145 mmol/L (136-145)
[2023-08-30 06:51] LABS: Bedside Glucose 161 mg/dL (74-106)
[2023-08-30] MEDS: Nystatin Powder 15gm Bottle 1 APPLIC TOPICAL ×2 (08:41→22:20)
[2023-08-30] MEDS: Cefepime HCl 2 GM in 0.9% Normal Saline (100mL MB+) 100 ML IV ×2 (08:47→22:28)
--- NOTE | 2023-08-30 08:58 | PN.CC_ITS ---
Subjective Subjective Pt seen and examined. Used NIV over night. No new complaints. Still with CARTWRIGHT but stable. No cough. On 2L O2 with sats mid/upper 90s. Pending endoscopy today. PE: General: Well developed, in no distress; morbidly obese HEENT: anicteric Sclera, nl nose; supple neck, no masses Cardiovascular: S1/S2; No rubs, gallops; no displaced PM Respiratory: diminished; no crackles, wheezes, or rhonchi Abdominal: Non-tender; Non distended; hypoBS x 4; No Hepatosplenomegaly Extremities: Warm, well perfused; No clubbing, cyanosis; capillary refill < 2 sec Skin: intact, no rashes Neurological: no gross deficits appreciated A/P: #Acute on chronic respiratory failure with hypoxia and hypercapnia #Staphylococcal bacteremia/gram-negative UTI #Acute on likely chronic anemia #SACHIN #Morbid obesity/medical noncompliance/hypertension/diabetes mellitus/hypothyroidism/chronic kidney disease/GERD -Continue to wean supplemental oxygen as tolerated; recommend NIV therapy with naps and nightly. Encourage incentive spirometer use and mobilize patient as tolerated -Continue antibiotics per ID recommendations. -Transfuse for hemoglobin less than 7 g/dL. Continue PPI therapy. GI consulted & planning upper endoscopy today Recommend outpatient pulmonary follow-up for further optimization & the patient would benefit from a retitration polysomnogram. Will sign off but please notify our service if acute issues arise. The entirety of this encounter was completed via telemedicine. Objective Data Objective Data Vital Signs: Vital Signs Temp Pulse Resp BP Pulse Ox O2 Del Method O2 Flow Rate 36.2 C L 63 18 115/73 95 Nasal Cannula 2 08/30/23 08:34 08/30/23 08:34 08/30/23 08:34 08/30/23 08:34 08/30/23 08:34 08/30/23 08:34 08/30/23 08:34 FiO2 30 08/30/23 02:40 Oxygen Flow Rate (L/min) 2 Oxygen Delivery Method Nasal Cannula Weight: 139.3 kg Body Mass Index (BMI) 51.0 Intake & Output: Intake and Output for Last 24 Hours 08/28/23 08/29/23 08/30/23 23:59 23:59 23:59 Intake Total 520 / 520 651 / 651 0 / 0 Output Total 850 / 850 1000 / 1000 600 / 600 Balance -330 / -330 -349 / -349 -600 / -600 Lab / Micro Data 08/30/23 05:53 08/30/23 05:53 Labs: Laboratory Results - last 24 hr 08/27/23 06:45: Blood Type B POSITIVE, Antibody Screen NEGATIVE, Crossmatch See Detail 08/27/23 11:25: Urine Immunofixation Comment 08/29/23 11:02: POC Glucose 120 H 08/29/23 15:30: POC Glucose 152 H 08/29/23 21:23: POC Glucose 204 H 08/30/23 05:53: WBC 4.7, RBC 2.82 L, Hgb 7.9 L, Hct 25.4 L, MCV 90.1, MCH 28.0, MCHC 31.1 L, RDW Std Deviation 54.0 H, RDW Coeff of Vlad 16.6 H, Plt Count 89 L, MPV 12.0, PT 13.2, INR 1.0, APTT 33.9, Sodium 145, Potassium 5.5 H, Chloride 113 H, Carbon Dioxide 29.0, Anion Gap 3 L, BUN 53 H, Creatinine 2.09 H, Estim Creat Clear Calc 38.06, Est GFR (MDRD) Af Amer 31 L, Est GFR (MDRD) Non-Af 25 L, BUN/Creatinine Ratio 25.4 H, Glucose 169 H, Calcium 9.0, Magnesium 2.1, TSH 23.70 H 08/30/23 06:33: POC Glucose 161 H Micro: Microbiology 08/27/23 01:47 Blood Culture (Wb) - Anticubital Right Blood Culture - Preliminary No growth in 48 hours. 08/27/23 01:50 Urine, Clean Catch Urine Culture - Preliminary Klebsiella aerogenes 08/27/23 01:29 Blood Culture (Wb) - Anticubital Left Bacteria Detection (PCR) - Final Staphylococcus aureus 08/27/23 01:29 Blood Culture (Wb) - Anticubital Left Blood Culture - P reliminary Staphylococcus aureus 08/27/23 01:35 Mucosa - Nasopharyngeal Respiratory Panel (PCR) - Final 08/27/23 01:50 Urine, Clean Catch Legionella Antigen - Final 08/27/23 01:50 Urine, Clean Catch Streptococcus pneumoniae Antigen (M - Final 08/27/23 01:35 Mucosa - Nasopharyngeal SARS-CoV-2, Influenza & RSV (PCR) - Final
[2023-08-30 09:19] LABS: Hemoglobin A1c 8.9 % (3.8-5.6)
[2023-08-30 12:08] LABS: Bedside Glucose 124 mg/dL (74-106)
--- NOTE | 2023-08-30 12:20 | PN.HOSP_ITS ---
Reason for Visit Reason for Visit: Diagnoses Methicillin susceptible Staphylococcus aureus infection as the cause of diseases classified elsewhere (08/26/23) Type 2 diabetes mellitus with diabetic polyneuropathy (08/26/23) Acute on chronic diastolic (congestive) heart failure (08/26/23) Heart failure, unspecified (08/26/23) Acute respiratory failure with hypoxia (08/26/23) Acute and chronic respiratory failure with hypoxia (08/26/23) Acute and chronic respiratory failure with hypercapnia (08/26/23) Respiratory failure, unspecified, unspecified whether with hypoxia or hypercapnia (08/26/23) Acute kidney failure, unspecified (08/26/23) Bacteremia (08/26/23) 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 Patient seen at bedside this morning. Patient was fatigued appearing but otherwise uncomfortably in bed, conversing normally, no acute distress. Patient has been n.p.o. since midnight, reported feeling somewhat hungry but otherwise denied any acute pain or discomfort. No other acute concerns this time. Objective Data Objective Data Vital Signs: Vital Signs Temp Pulse Resp BP Pulse Ox O2 Del Method O2 Flow Rate 97.1 F L 65 16 115/73 95 Nasal Cannula 2 08/30/23 08:34 08/30/23 10:47 08/30/23 10:47 08/30/23 08:34 08/30/23 08:34 08/30/23 08:58 08/30/23 08:58 FiO2 30 08/30/23 02:40 Oxygen Flow Rate (L/min) 2 Oxygen Delivery Method Nasal Cannula Weight: 139.3 kg Body Mass Index (BMI) 51.0 Intake & Output: Intake and Output for Last 24 Hours 08/28/23 08/29/23 08/30/23 23:59 23:59 23:59 Intake Total 520 / 520 651 / 651 100 / 100 Output Total 850 / 850 1000 / 1000 600 / 600 Balance -330 / -330 -349 / -349 -500 / -500 Lab / Micro Data 08/30/23 05:53 08/30/23 05:53 Labs: Laboratory Results - last 24 hr 08/27/23 06:45: Crossmatch See Detail 08/27/23 11:25: Urine Immunofixation Comment 08/29/23 15:30: POC Glucose 152 H 08/29/23 21:23: POC Glucose 204 H 08/30/23 05:53: WBC 4.7, RBC 2.82 L, Hgb 7.9 L, Hct 25.4 L, MCV 90.1, MCH 28.0, MCHC 31.1 L, RDW Std Deviation 54.0 H, RDW Coeff of Vlad 16.6 H, Plt Count 89 L, MPV 12.0, PT 13.2, INR 1.0, APTT 33.9, Sodium 145, Potassium 5.5 H, Chloride 113 H, Carbon Dioxide 29.0, Anion Gap 3 L, BUN 53 H, Creatinine 2.09 H, Estim Creat Clear Calc 38.06, Est GFR (MDRD) Af Amer 31 L, Est GFR (MDRD) Non-Af 25 L, BUN/Creatinine Ratio 25.4 H, Glucose 169 H, Hemoglobin A1c 8.9 H, Calcium 9.0, Magnesium 2.1, TSH 23.70 H 08/30/23 06:33: POC Glucose 161 H 08/30/23 11:51: POC Glucose 124 H Micro: Microbiology 08/27/23 01:50 Urine, Clean Catch Urine Culture - Final Klebsiella aerogenes Streptococcus agalactiae (B) 08/27/23 01:47 Blood Culture (Wb) - Anticubital Right Blood Culture - Preliminary No growth in 48 hours. 08/27/23 01:29 Blood Culture (Wb) - Anticubital Left Bacteria Detection (PCR) - Final Staphylococcus aureus 08/27/23 01:29 Blood Culture (Wb) - Anticubital Left Blood Culture - Preliminary Staphylococcus aureus 08/27/23 01:35 Mucosa - Nasopharyngeal Respiratory Panel (PCR) - Final 08/27/23 01:50 Urine, Clean Catch Legionella Antigen - Final 08/27/23 01:50 Urine, Clean Catch Streptococcus pneumoniae Antigen (M - Final 08/27/23 01:35 Mucosa - Nasopharyngeal SARS-CoV-2, Influenza & RSV (PCR) - Final Physical Exam Const alert and oriented x3 Constitutional Narrative: Elderly female, morbidly obese, laying comfortably in bed, conversing normally, no acute distress. General Appearance: cooperative HEENT normocephalic, head/scalp atraumatic, hearing grossly normal bilaterally, nasal mucous membranes and turbinates normal and moist oral mucous membranes Eyes PERRL, EOMs intact bilaterally and conjunctivae normal Neck full ROM, no lymphadenopathy and supple Lymph Lymphatic: no lymphadenopathy noted Chest inspection of chest normal Resp Resp Narrative: No increased work of breathing noted on 2 L nasal cannula. Moderately diminished breath sounds bilaterally, no wheezing or crackles noted, similar to previous. Cardio regular rate, regular rhythm, no murmurs and peripheral pulses 2+ throughout GI normal to inspection, nondistended, normoactive bowel sounds, soft to palpation, non-tender and non-distended Back/Spine normal ROM Extremity full ROM Extremity Narrative: +2-3 lower extremity edema noted, stable. Skin no rashes or lesions noted Neuro no focal motor deficits and no sensory deficits noted Speech: speech normal Psych mental status grossly normal Assessment & Plan Assessment/Plan (1) Acute on chronic heart failure with preserved ejection fraction (HFpEF): (2) Acute on chronic respiratory failure with hypoxia and hypercapnia: (3) GASTON (acute kidney injury): PLAN: Plan Patient is a 63-year-old female who presented to [facility] ED on 08/26/2023 with worsening shortness of breath at rest. 1. Acute on chronic combined respiratory failure, improved Suspect secondary to noncompliance with prescribed outpatient therapy, has not been compliant with home CPAP. May also have an element of obesity hypoventilation syndrome. Per manager quantitative, patient has been referred to pulmonology for sleep apnea multiple occasions but has failed to follow-up. Currently using 2 L nasal cannula during the day and 4 L nasal cannula at night. ? 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 Patient returned to her baseline on morning of 08/27 with positive pressure ventilation. BiPAP therapy with naps and at night. Okay for gentle diuresis as needed. Encourage incentive spirometry use and mobilize patient as able. Okay for transfer out of ICU on 08/29. 2. Acute on chronic anemia, recurrent upper GI bleed due to gastric ulcer Hemoglobin 8.1 on admit, down trended to hemoglobin 6.9 on hospital day 2. Baseline hemoglobin appears to be around 7-8. Seems most likely due to lab draws and hemodilution on admission, but patient does have history of peptic ul cer disease with duodenitis requiring EGD in 04/2023. Patient denies any dark or bloody stools. S/p 2 units packed red blood cells transfused as of 08/30. ? Gastroenterology following. Hemoglobin 6.9 on 08/29, improved to hemoglobin 7.9 on 08/30 after unit of blood. S/p EGD on 08/30 that showed an oozing gastric ulcer with pigmented material that was injected and treated with heater probe as well as acute duodenitis was biopsied. Okay to continue home p.o. PPI twice daily. Monitor CBC daily. 3. MSSA bacteremia ? Blood cultures 08/27 positive for MSSA. Infectious disease following. Splinter hemorrhage on left thumb concerning for endocarditis. TTE 08/28 did not show any evidence of endocarditis or significant valvular dysfunction. Per ID, CY ordered on 08/29. Antibiotics narrowed to Ancef on 08/28. Repeat blood cultures pending. Notably did have MSSA bacteremia in 04/2023 as well. 4. GASTON on CKD stage IV, stable; mild hyperkalemia ? Nephrology following. Patient appears to have mild GASTON on CKD, versus progression of CKD now at new baseline. Urine output has been adequate. Potas sium 5.5 on 08/30, slowly been trending up. Diuretics increased to p.o. Lasix 40 mg twice daily on 08/30, patient on renal diet. Monitor daily BMP. 5. Type 2 diabetes mellitus with hyperglycemia and with diabetic neuropathy Blood glucose in the 400s on admission, no evidence of DKA. Home regimen of Lantus 54 units at night, Humalog 6 units with meals plus sliding scale insulin, Trulicity weekly. A1c 8.7% on 07/15/23. ? Continue Lantus 40 units at night, Humalog 10 units with meals plus sliding scale insulin, adjust as needed. Continue home gabapentin. 6. History of GERD with peptic ulcer disease and duodenitis ? EGD on 05/07/2023 showed an oozing gastric ulcer noted injected and treated with heater probe x 2 as well as acute duodenitis. No further GI bleeding since then per patient. Continue home p.o. PPI twice daily and Carafate. 7. Hypothyroidism ? TSH 48 on admit, free T4 low. No evidence of myxedema coma. Unclear if patient has been nonadherent to home Synthroid. Continue home Synthroid 150 mcg daily. Recommend repeat TSH and T4 check in 6 to 8 weeks. Chronic medical conditions: ? Morbid obesity: BMI 51 on admit. Complicates hospital course, care and prognosis. ? Hyperlipidemia: Continue home statin and fenofibrate. ? 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 ? Restless leg syndrome: Continue home ropinirole. DVT prophylaxis: SCDs CODE STATUS: Full code, verified Expected disposition: SNF, TBD Total clinical time spent by myself addressing the patient's medical issues, reviewing all the data, and collaborating with patient's care team: 35 minutes. Charges/Coding Visit Charges Inpatient E&M: 22889 Subs Hosp L2
--- NOTE | 2023-08-30 12:31 | OP.EGD_ITS ---
Patient Name: Jie Mckoy Procedure Date: 08/30/2023 11:14 AM Date of : 1960 Age: 63 Procedure: Upper GI endoscopy Indications: Iron deficiency anemia Providers: Holden Calderon DO Medicines: Monitored Anesthesia Care Patient Profile: This is a 63 year old female. Refer to note in patient chart for documentation of history and physical. Patient has symptoms. Complications: No immediate complications. Procedure: Pre-Anesthesia Assessment: - Prior to the procedure, a History and Physical was performed, and patient medications and allergies were reviewed. The patient is competent. The risks and benefits of the procedure and the sedation options and risks were discussed with the patient. All questions were answered and informed consent was obtained. Patient identification and proposed procedure were verified by the physician in the pre-procedure area. Mental Status Examination: alert and oriented. Airway Examination: normal oropharyngeal airway and neck mobility. Respiratory Examination: clear to auscultation. CV Examination: normal. Prophylactic Antibiotics: The patient does not require prophylactic antibiotics. Prior Anticoagulants: The patient has taken no anticoagulant or antiplatelet agents. ASA Grade Assessment: III - A patient with severe systemic disease. After reviewing the risks and benefits, the patient was deemed in satisfactory condition to undergo the procedure. The anesthesia plan was to use monitored anesthesia care (MAC). Immediately prior to administration of medications, the patient was re-assessed for adequacy to receive sedatives. The heart rate, respiratory rate, oxygen saturations, blood pressure, adequacy of pulmonary ventilation, and response to care were monitored throughout the procedure. The physical status of the patient was re-assessed after the procedure. After obtaining informed consent, the endoscope was passed under direct vision. Throughout the procedure, the patient's blood pressure, pulse, and oxygen saturations were monitored continuously. The Endoscope was introduced through the mouth, and advanced to the second part of duodenum. The upper GI endoscopy was accomplished without difficulty. The patient tolerated the procedure well. Scope In: 12:11:14 PM Scope Out: 12:19:09 PM Total Procedure Duration Time 0 hours 7 minutes 55 seconds Findings: The examined esophagus was normal. Localized mild inflammation characterized by congestion (edema) was found in the gastric body. One oozing linear gastric ulcer with pigmented material was found at the pylorus. The lesion was 7 mm in largest dimension. Area was successfully injected with 5 mL of a 0.1 mg/mL solution of epinephrine for drug delivery. Coagulation for hemostasis using heater probe was successful. Estimated blood loss was minimal. Patchy mild inflammation characterized by erosions, erythema and friability was found in the duodenal bulb. Biopsies were taken with a cold forceps for Helicobacter pylori testing. Verification of patient identification for the specimen was done. Estimated blood loss was minimal. Impression: - Normal esophagus. - Bile gastritis. - Oozing gastric ulcer with pigmented material. Injected. Treated with a heater probe. - Acute duodenitis. Biopsied. Recommendation: - Return [facility] to [facility] for [facility] care. - Use Protonix (pantoprazole) 40 mg PO BID. - Continue present medications. Procedure Code(s): --- Professional --- 01339, 59, Esophagogastroduodenoscopy, flexible, transoral; with control of bleeding, any method 10602, Esophagogastroduodenoscopy, flexible, transoral; with biopsy, single or multiple 53743, 59,51, Esophagogastroduodenoscopy, flexible, transoral; with directed submucosal injection(s), any substance CPT copyright 2021 [employer]. All rights reserved. The codes documented in this report are preliminary and upon seam closer review may be revised to meet current compliance requirements. Holden Calderon DO 08/30/2023 12:30:58 PM This report has been signed electronically. Number of Addenda: 0 Note Initiated On: 08/30/2023 11:14 AM
--- NOTE | 2023-08-30 12:31 | OP.CCLET_ITS ---
08/30/2023 Lulu Luna Re : Upper GI endoscopy procedure for Jie Mckoy Dear Jeremy This procedure was performed on Wednesday, August 30, 2023. My impressions and recommendations are as follows: Impressions : - Normal esophagus. - Bile gastritis. - Oozing gastric ulcer with pigmented material. Injected. Treated with a heater probe. - Acute duodenitis. Biopsied. Recommendations : - Return patient to [facility] for ongoing care. - Use Protonix (pantoprazole) 40 mg PO BID. - Continue present medications. My findings are described in the full procedure note, which is enclosed. If I can be of further assistance, please feel free to contact me at . Sincerely, Holden Calderon, 08/30/2023 12:30:58 PM This report has been signed electronically.
[2023-08-30] MEDS: Menthol/Lanolin/Calamine/Znox 113 GM Tube 1 APPLIC TOPICAL ×2 (13:30→22:20)
[2023-08-30] MEDS: Fenofibrate 48 MG Tablet PO (13:31)
[2023-08-30] MEDS: Pantoprazole Sodium 40 MG Tablet PO ×2 (13:31→22:21)
[2023-08-30] MEDS: Escitalopram Oxalate 10 MG Tablet PO (13:31)
[2023-08-30] MEDS: guaiFENesin 1,200 MG Tablet 1200 MG PO ×2 (13:31→22:16)
[2023-08-30] MEDS: Gabapentin 100 MG Capsule 200 MG PO (15:22)
[2023-08-30] MEDS: Sucralfate 1 GM Tablet PO (16:07)
[2023-08-30 16:28] LABS: Bedside Glucose 113 mg/dL (74-106)
[2023-08-30] MEDS: Furosemide 40 MG Tablet PO (17:36)
[2023-08-30] MEDS: Gabapentin 400 MG Capsule PO (22:15)
[2023-08-30] MEDS: Pramipexole Di-HCl 0.5 MG Tablet 1.5 MG PO (22:21)
[2023-08-30] MEDS: Atorvastatin Calcium 10 MG Tablet PO (22:21)
[2023-08-30] MEDS: 0.9% Saline Lock 10 ML Syringe IV (22:31)
[2023-08-30 23:31] LABS: Bedside Glucose 106 mg/dL (74-106)
[2023-08-31] VITALS (11 sets, daily range): BP systolic 124–142; BP diastolic 60–77; PULSE 61–66; RESP 14–20; TEMP 35.3–36.4; O2SAT 96–99; BMI 50.7
[2023-08-31] MEDS: Ipratropium/Albuterol Sulfate 3 ML AMPUL.NEB INHALATION ×5 (03:27→20:02)
[2023-08-31] MEDS: Sucralfate 1 GM Tablet PO ×2 (06:11→15:00)
[2023-08-31] MEDS: Levothyroxine 150 MCG Tablet PO (06:11)
[2023-08-31] MEDS: Gabapentin 100 MG Capsule 200 MG PO ×2 (06:11→15:00)
[2023-08-31 06:36] LABS: Bedside Glucose 112 mg/dL (74-106)
[2023-08-31 07:20] LABS: Hemoglobin 7.8 g/dL (12.0-15.0); Mean Corpuscular Hgb 27.5 pg (27.0-32.0); Mean Corpuscular Volume 91.5 fL (81-99); Mean Platelet Vol. 11.9 fl (6.2-12.0); POSITIVE COUNT YES; Platelet Count 82 K/mm3 (150-450); RBC Distribution Width CV 16.4 % (11.6-14.6); RBC Distribution Width SD 54.6 fl (35.1-43.9); Red Blood Count 2.84 M/mm3 (4.2-5.4); White Blood Count 3.9 K/mm3 (4.4-11.0)
[2023-08-31 07:26] LABS: Anion Gap 4 (5-15); BUN 50 mg/dL (7-18); BUN/Creat Ratio 27.3 RATIO (10-20); Calcium,Total 9.1 mg/dL (8.5-10.1); Chloride 113 mmol/L (98-107); Creatinine, Serum 1.83 mg/dL (0.55-1.02); EST Glomerular Filtration Rate 29 mL/min (>60); Est Glom Filt Rate - Afr Amer 36 mL/min (>60); Estimated Creatinine Clearance 43.31 ml/min; Glucose 112 mg/dL (74-106); Potassium 5.4 mmol/L (3.5-5.1); Sodium Level 145 mmol/L (136-145)
[2023-08-31] MEDS: Nystatin Powder 15gm Bottle 1 APPLIC TOPICAL ×2 (09:53→21:37)
[2023-08-31] MEDS: Menthol/Lanolin/Calamine/Znox 113 GM Tube 1 APPLIC TOPICAL ×2 (09:54→21:20)
[2023-08-31] MEDS: Pantoprazole Sodium 40 MG Tablet PO ×2 (09:54→21:20)
[2023-08-31] MEDS: Escitalopram Oxalate 10 MG Tablet PO (09:54)
[2023-08-31] MEDS: Furosemide 40 MG Tablet PO ×2 (09:54→16:46)
[2023-08-31] MEDS: guaiFENesin 1,200 MG Tablet 1200 MG PO ×2 (09:55→21:19)
[2023-08-31] MEDS: Fenofibrate 48 MG Tablet PO (09:55)
[2023-08-31] MEDS: Cefepime HCl 2 GM in 0.9% Normal Saline (100mL MB+) 100 ML IV ×2 (10:21→21:35)
[2023-08-31] MEDS: Insulin Lispro 100 UNIT/ML INSULN.PEN SC ×2 (12:13→16:45)
[2023-08-31 12:36] LABS: Bedside Glucose 176 mg/dL (74-106)
--- NOTE | 2023-08-31 13:46 | PCM.PN.HOSP ---
Reason for Visit Reason for Visit: Diagnoses Methicillin susceptible Staphylococcus aureus infection as the cause of diseases classified elsewhere (08/26/23) Type 2 diabetes mellitus with diabetic polyneuropathy (08/26/23) Acute on chronic diastolic (congestive) heart failure (08/26/23) Heart failure, unspecified (08/26/23) Acute respiratory failure with hypoxia (08/26/23) Acute and chronic respiratory failure with hypoxia (08/26/23) Acute and chronic respiratory failure with hypercapnia (08/26/23) Respiratory failure, unspecified, unspecified whether with hypoxia or hypercapnia (08/26/23) Acute kidney failure, unspecified (08/26/23) Bacteremia (08/26/23) 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 Patient seen at bedside this morning. Patient was completing a breathing treatment when I saw her. Stated she felt fatigued this morning, similar to previous days but otherwise denied any acute pain or discomfort. No other acute concerns this morning. Objective Data Objective Data Vital Signs: Vital Signs Temp Pulse Resp BP Pulse Ox O2 Del Method O2 Flow Rate 96.0 F L 64 16 124/66 H 96 Nasal Cannula 2 08/31/23 09:45 08/31/23 10:34 08/31/23 10:34 08/31/23 09:45 08/31/23 09:45 08/31/23 10:00 08/31/23 10:15 FiO2 30 08/30/23 23:50 Oxygen Flow Rate (L/min) 2 Oxygen Delivery Method Nasal Cannula Weight: 138.3 kg Body Mass Index (BMI) 50.7 Intake & Output: Intake and Output for Last 24 Hours 08/29/23 08/30/23 08/31/23 23:59 23:59 23:59 Intake Total 651 / 651 850 / 850 100 / 100 Output Total 1000 / 1000 600 / 600 1300 / 1300 Balance -349 / -349 250 / 250 -1200 / -1200 Lab / Micro Data 08/31/23 06:07 08/31/23 06:07 Labs: Laboratory Results - last 24 hr 08/30/23 16:05: POC Glucose 113 H 08/30/23 22:12: POC Glucose 106 08/31/23 06:07: WBC 3.9 L, RBC 2.84 L, Hgb 7.8 L, Hct 26.0 L, MCV 91.5, MCH 27.5, MCHC 30.0 L, RDW Std Deviation 54.6 H, RDW Coeff of Vlad 16.4 H, Plt Count 82 L, MPV 11.9, Sodium 145, Potassium 5.4 H, Chloride 113 H, Carbon Dioxide 28.0, Anion Gap 4 L, BUN 50 H, Creatinine 1.83 H, Estim Creat Clear Calc 43.31, Est GFR (MDRD) Af Amer 36 L, Est GFR (MDRD) Non-Af 29 L, BUN/Creatinine Ratio 27.3 H, Glucose 112 H, Calcium 9.1 08/31/23 06:15: POC Glucose 112 H 08/31/23 12:12: POC Glucose 176 H Micro: Microbiology 08/29/23 13:55 Blood Culture (Wb) - Anticubital Left Blood Culture - Preliminary No growth in 48 hours. 08/28/23 09:05 Blood Culture (Wb) - Left Hand Blood Culture - Preliminary No growth in 48 hours. 08/28/23 08:55 Blood Culture (Wb) - Anticubital Left Blood Culture - Preliminary No growth in 48 hours. 08/27/23 01:50 Urine, Clean Catch Urine Culture - Final Klebsiella aerogenes Streptococcus agalactiae (B) 08/27/23 01:47 Blood Culture (Wb) - Anticubital Right Blood Culture - Preliminary No growth in 48 hours. 08/27/23 01:29 Blood Culture (Wb) - Anticubital Left Bacteria Detection (PCR) - Final Staphylococcus aureus 08/27/23 01:29 Blood Culture (Wb) - Anticubital Left Blood Culture - Preliminary Staphylococcus aureus 08/27/23 01:35 Mucosa - Nasopharyngeal Respiratory Panel (PCR) - Final 08/27/23 01:50 Urine, Clean Catch Legionella Antigen - Final 08/27/23 01:50 Urine, Clean Catch Streptococcus pneumoniae Antigen (M - Final 08/27/23 01:35 Mucosa - Nasopharyngeal SARS-CoV-2, Influenza & RSV (PCR) - Final Physical Exam Const alert and oriented x3 Constitutional Narrative: Elderly female, morbidly obese, laying comfortably in bed, conversing normally, no acute distress. General Appearance: cooperative HEENT normocephalic, head/scalp atraumatic, hearing grossly normal bilaterally, nasal mucous membranes and turbinates normal and moist oral mucous membranes Eyes PERRL, EOMs intact bilaterally and conjunctivae normal Neck full ROM, no lymphadenopathy and supple Lymph Lymphatic: no lymphadenopathy noted Chest inspection of chest normal Resp Resp Narrative: No increased work of breathing noted on 2 L nasal cannula. Moderately diminished breath sounds bilaterally, no wheezing or crackles noted, similar to previous. Cardio regular rate, regular rhythm, no murmurs and peripheral pulses 2+ throughout GI normal to inspection, nondistended, normoactive bowel sounds, soft to palpation, non-tender and non-distended Back/Spine normal ROM Extremity full ROM Extremity Narrative: +2-3 lower extremity edema noted, stable. Skin no rashes or lesions noted Neuro no focal motor deficits and no sensory deficits noted Speech: speech normal Psych mental status grossly normal Assessment & Plan Assessment/Plan (1) Acute on chronic heart failure with preserved ejection fraction (HFpEF): (2) Acute on chronic respiratory failure with hypoxia and hypercapnia: (3) GASTON (acute kidney injury): PLAN: Plan Patient is a 63-year-old female who presented to [facility] ED on 08/26/2023 with worsening shortness of breath at rest. 1. Acute on chronic combined respiratory failure, improved Suspect secondary to noncompliance with prescribed outpatient therapy, has not been compliant with home CPAP. May also have an element of obesity hypoventilation syndrome. Per veneer jointer, patient has been referred to pulmonology for sleep apnea multiple occasions but has failed to follow-up. Currently using 2 L nasal cannula during the day and 4 L nasal cannula at night. ? 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 Patient returned to her baseline on morning of 08/27 with positive pressure ventilation. Transferred out of ICU on 08/29. BiPAP therapy with naps and at night. Encourage incentive spirometry use and mobilize patient as able. 2. Acute on chronic anemia, recurrent upper GI bleed due to gastric ulcer Hemoglobin 8.1 on admit, down trended to hemoglobin 6.9 on hospital day 2. Baseline hemoglobin appears to be around 7-8. Seems most likely due to lab draws and hemodilution on admission, but patient does have history of peptic ulcer disease with duodenitis requiring EGD in 04/2023. Patient denies any dark or bloody stools. S/p 2 units packed red blood cells transfused as of 08/30. ? Gastroenterology followed. S/p EGD on 08/30 that showed an oozing gastric ulcer with pigmented material that was injected and treated with heater probe as well as acute duodenitis was biopsied. Hemoglobin stable post EGD, continue to monitor CBC daily. Continue home p.o. PPI twice daily. 3. MSSA bacteremia ? Blood cultures 08/27 positive for MSSA. Infectious disease following. Splinter hemorrhage on left thumb concerning for endocarditis. TTE 08/28 did not show any evidence of endocarditis or significant valvular dysfunction. Planning for CY on 09/01, n.p.o. at midnight. Antibiotics narrowed to Ancef on 08/28. Repeat blood cultures with no growth to date. Notably did have MSSA bacteremia in 04/2023 as well. 4. GASTON on CKD stage IV, improving; mild hyperkalemia ? Nephrology following. Patient appears to have mild GASTON on CKD, versus progression of CKD now at new baseline. Urine output has been adequate. Potassium 5.4 on 08/31, stable. Diuretics increased to p.o. Lasix 40 mg twice daily on 08/30, continue this for now. Renal diet. Monitor daily BMP. 5. Type 2 diabetes mellitus with hyperglycemia and with diabetic neuropathy Blood glucose in the 400s on admission, no evidence of DKA. Home regimen of Lantus 54 units at night, Humalog 6 units with meals plus sliding scale insulin, Trulicity weekly. A1c 8.7% on 07/15/23. ? Continue Lantus 40 units at night, Humalog 10 units with meals plus sliding scale insulin, adjust as needed. Continue home gabapentin. 6. History of GERD with peptic ulcer disease and duodenitis ? EGD on 05/07/2023 showed an oozing gastric ulcer noted injected and treated with heater probe x 2 as well as acute duodenitis. No further GI bleeding since then per patient. Continue home p.o. PPI twice daily and Carafate. 7. Hypothyroidism ? TSH 48 on admit, free T4 low. No evidence of myxedema coma. Unclear if patient has been nonadherent to home Synthroid. Continue home Synthroid 150 mcg daily. Recommend repeat TSH and T4 check in 6 to 8 weeks. Chronic medical conditions: ? Morbid obesity: BMI 51 on admit. Complicates hospital course, care and prognosis. ? Hyperlipidemia: Continue home statin and fenofibrate. ? 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 ? Restless leg syndrome: Continue home ropinirole. DVT prophylaxis: SCDs CODE STATUS: Full code, verified Expected disposition: SNF, TBD Total clinical time spent by myself addressing the patient's medical issues, reviewing all the data, and collaborating with patient's care team: 35 minutes.
[2023-08-31] MEDS: Insulin Lispro 100 UNIT/ML INSULN.PEN 10 UNIT SC (16:46)
[2023-08-31 17:05] LABS: Bedside Glucose 162 mg/dL (74-106)
[2023-08-31] MEDS: Gabapentin 400 MG Capsule PO (21:18)
[2023-08-31] MEDS: Atorvastatin Calcium 10 MG Tablet PO (21:19)
[2023-08-31] MEDS: Pramipexole Di-HCl 0.5 MG Tablet 1.5 MG PO (21:19)
[2023-08-31] MEDS: 0.9% Saline Lock 10 ML Syringe IV (21:36)
[2023-08-31 23:07] LABS: Bedside Glucose 138 mg/dL (74-106)
[2023-09-01] VITALS (8 sets, daily range): BP systolic 91–135; BP diastolic 55–67; PULSE 56–62; RESP 18; TEMP 36.2–36.5; O2SAT 95–100; BMI 50.7; BMI 50.6
[2023-09-01 06:17] LABS: Hematocrit 25.1 % (37-47); Hemoglobin 7.7 g/dL (12.0-15.0); Mean Corp Hgb Conc 30.7 g/dL (32-36); Mean Corpuscular Volume 91.3 fL (81-99); Mean Platelet Vol. 12.2 fl (6.2-12.0); POSITIVE COUNT YES; Platelet Count 78 K/mm3 (150-450); RBC Distribution Width CV 16.4 % (11.6-14.6); RBC Distribution Width SD 53.7 fl (35.1-43.9); Red Blood Count 2.75 M/mm3 (4.2-5.4)
[2023-09-01 06:49] LABS: Bedside Glucose 97 mg/dL (74-106)
[2023-09-01 06:52] LABS: Anion Gap 4 (5-15); BUN 51 mg/dL (7-18); BUN/Creat Ratio 26.8 RATIO (10-20); Calcium,Total 9.3 mg/dL (8.5-10.1); Chloride 110 mmol/L (98-107); EST Glomerular Filtration Rate 28 mL/min (>60); Est Glom Filt Rate - Afr Amer 34 mL/min (>60); Estimated Creatinine Clearance 41.66 ml/min; Glucose 95 mg/dL (74-106); Potassium 5.5 mmol/L (3.5-5.1); Sodium Level 143 mmol/L (136-145)
[2023-09-01] MEDS: Ipratropium/Albuterol Sulfate 3 ML AMPUL.NEB INHALATION ×3 (07:08→15:06)
--- NOTE | 2023-09-01 07:43 | PN.GI_ITS ---
Subjective Subjective Patient is doing very well. She is not having any signs of bleeding. Objective Data Objective Data Vital Signs: Vital Signs Temp Pulse Resp BP Pulse Ox O2 Del Method O2 Flow Rate 97.5 F L 59 L 18 129/63 H 100 Nasal Cannula 2 09/01/23 15:55 09/01/23 15:55 09/01/23 15:55 09/01/23 15:55 09/01/23 15:55 09/01/23 15:55 09/01/23 15:55 FiO2 30 08/31/23 23:00 Oxygen Flow Rate (L/min) 2 Oxygen Delivery Method Nasal Cannula Weight: 304 lb 3.806 oz Body Mass Index (BMI) 50.6 Intake & Output: Intake and Output for Last 24 Hours 08/30/23 08/31/23 09/01/23 23:59 23:59 23:59 Intake Total 850 / 850 200 / 200 220 / 220 Output Total 600 / 600 1450 / 1450 650 / 650 Balance 250 / 250 -1250 / -1250 -430 / -430 Lab / Micro Data 09/01/23 05:20 09/01/23 05:20 Labs: Laboratory Results - last 24 hr 08/31/23 21:16: POC Glucose 138 H 09/01/23 05:20: WBC 3.0 L, RBC 2.75 L, Hgb 7.7 L, Hct 25.1 L, MCV 91.3, MCH 28.0, MCHC 30.7 L, RDW Std Deviation 53.7 H, RDW Coeff of Vlad 16.4 H, Plt Count 78 L, MPV 12.2 H, PT 13.6, INR 1.0, APTT 36.6 H, Sodium 143, Potassium 5.5 H, Chloride 110 H, Carbon Dioxide 29.0, Anion Gap 4 L, BUN 51 H, Creatinine 1.90 H, Estim Creat Clear Calc 41.66, Est GFR (MDRD) Af Amer 34 L, Est GFR (MDRD) Non-Af 28 L, BUN/Creatinine Ratio 26.8 H, Glucose 95, Calcium 9.3 09/01/23 06:21: POC Glucose 97 09/01/23 11:14: POC Glucose 86 09/01/23 16:05: POC Glucose 132 H Micro: Microbiology 08/27/23 01:29 Blood Culture (Wb) - Anticubital Left Bacteria Detection (PCR) - Final Staphylococcus aureus 08/27/23 01:29 Blood Culture (Wb) - Anticubital Left Blood Culture - Final Staphylococcus aureus 08/27/23 01:47 Blood Culture (Wb) - Anticubital Right Blood Culture - Final No growth in 5 days. 08/29/23 13:55 Blood Culture (Wb) - Anticubital Left Blood Culture - Preliminary No growth in 48 hours. 08/28/23 09:05 Blood Culture (Wb) - Left Hand Blood Culture - Preliminary No growth in 48 hours. 08/28/23 08:55 Blood Culture (Wb) - Anticubital Left Blood Culture - Preliminary No growth in 48 hours. 08/27/23 01:50 Urine, Clean Catch Urine Culture - Final Klebsiella aerogenes Streptococcus agalactiae (B) 08/27/23 01:35 Mucosa - Nasopharyngeal Respiratory Panel (PCR) - Final 08/27/23 01:50 Urine, Clean Catch Legionella Antigen - Final 08/27/23 01:50 Urine, Clean Catch Streptococcus pneumoniae Antigen (M - Final 08/27/23 01:35 Mucosa - Nasopharyngeal SARS-CoV-2, Influenza & RSV (PCR) - Final Physical Exam Const alert and oriented x3 Constitutional Narrative: Elderly female, morbidly obese, laying comfortably in bed, conversing normally, no acute distress. General Appearance: cooperative HEENT normocephalic, head/scalp atraumatic, hearing grossly normal bilaterally, nasal mucous membranes and turbinates normal and moist oral mucous membranes Eyes PERRL, EOMs intact bilaterally and conjunctivae normal Neck full ROM, no lymphadenopathy and supple Lymph Lymphatic: no lymphadenopathy noted Chest inspection of chest normal Resp Resp Narrative: No increased work of breathing noted on 2 L nasal cannula. Moderately diminished breath sounds bilaterally, no wheezing or crackles noted, similar to previous. Cardio regular rate, regular rhythm, no murmurs and peripheral pulses 2+ throughout GI normal to inspection, nondistended, normoactive bowel sounds, soft to palpation, non-tender and non-distended Back/Spine normal ROM Extremity full ROM Extremity Narrative: +2-3 lower extremity edema noted, stable. Skin no rashes or lesions noted Neuro no focal motor deficits and no sensory deficits noted Speech: speech normal Psych mental status grossly normal Assessment & Plan Assessment/Plan (1) Acute on chronic heart failure with preserved ejection fraction (HFpEF): (2) Acute on chronic respiratory failure with hypoxia and hypercapnia: (3) GASTON (acute kidney injury): PLAN: Plan Patient is a 63-year-old female who presented to [facility] ED on 08/26/2023 with worsening shortness of breath at rest. Acute on chronic anemia, recurrent upper GI bleed due to gastric ulcer Hemoglobin 8.1 on admit, down trended to hemoglobin 6.9 on hospital day 2. Baseline hemoglobin appears to be around 7-8. Seems most likely due to lab draws and hemodilution on admission, but patient does have history of peptic ulcer disease with duodenitis requiring EGD in 04/2023. Patient denies any dark or bloody stools. S/p 2 units packed red blood cells transfused as of 08/30. S/p EGD on 08/30 that showed an oozing gastric ulcer with pigmented material that was injected and treated with heater probe as well as acute duodenitis was biopsied. Hemoglobin stable post EGD, continue to monitor CBC daily. Continue home p.o. PPI twice daily. . Charges/Coding Visit Charges Inpatient E&M: 06034 [facility] H[facility] L3
[2023-09-01 08:24] LABS: Prothrombin Time (Protime)PT. 13.6 SECONDS (11.7-14.9)
[2023-09-01 08:32] LABS: Partial Thromboplast Time 36.6 Seconds (24.1-36.2)
--- NOTE | 2023-09-01 08:48 | CASEMGMT ---
Discharge Planning [facility] has received auth. SW updated. Louise King, Discharge Planning Asst.
[2023-09-01] MEDS: Cefepime HCl 2 GM in 0.9% Normal Saline (100mL MB+) 100 ML IV (09:45)
[2023-09-01] MEDS: Menthol/Lanolin/Calamine/Znox 113 GM Tube 1 APPLIC TOPICAL (09:45)
[2023-09-01] MEDS: Nystatin Powder 15gm Bottle 1 APPLIC TOPICAL (09:46)
--- NOTE | 2023-09-01 10:31 | PCM.PN.REN ---
Subjective Subjective No new complaints. Breathing is acceptable. CY Objective Data Objective Data Vital Signs: Vital Signs Temp Pulse Resp BP Pulse Ox O2 Del Method O2 Flow Rate 97.2 F L 60 18 91/55 L 98 Nasal Cannula 2 09/01/23 09:45 09/01/23 09:45 09/01/23 09:45 09/01/23 09:45 09/01/23 09:45 09/01/23 09:45 09/01/23 09:45 FiO2 30 08/31/23 23:00 Oxygen Flow Rate (L/min) 2 Oxygen Delivery Method Nasal Cannula Weight: 138 kg Body Mass Index (BMI) 50.6 Intake & Output: Intake and Output for Last 24 Hours 08/30/23 08/31/23 09/01/23 23:59 23:59 23:59 Intake Total 850 / 850 200 / 200 100 / 100 Output Total 600 / 600 1450 / 1450 150 / 150 Balance 250 / 250 -1250 / -1250 -50 / -50 Lab / Micro Data 09/01/23 05:20 09/01/23 05:20 Labs: Laboratory Results - last 24 hr 08/31/23 12:12: POC Glucose 176 H 08/31/23 16:44: POC Glucose 162 H 08/31/23 21:16: POC Glucose 138 H 09/01/23 05:20: WBC 3.0 L, RBC 2.75 L, Hgb 7.7 L, Hct 25.1 L, MCV 91.3, MCH 28.0, MCHC 30.7 L, RDW Std Deviation 53.7 H, RDW Coeff of Vlad 16.4 H, Plt Count 78 L, MPV 12.2 H, PT 13.6, INR 1.0, APTT 36.6 H, Sodium 143, Potassium 5.5 H, Chloride 110 H, Carbon Dioxide 29.0, Anion Gap 4 L, BUN 51 H, Creatinine 1.90 H, Estim Creat Clear Calc 41.66, Est GFR (MDRD) Af Amer 34 L, Est GFR (MDRD) Non-Af 28 L, BUN/Creatinine Ratio 26.8 H, Glucose 95, Calcium 9.3 09/01/23 06:21: POC Glucose 97 Micro: Microbiology 08/27/23 01:29 Blood Culture (Wb) - Anticubital Left Bacteria Detection (PCR) - Final Staphylococcus aureus 08/27/23 01:29 Blood Culture (Wb) - Anticubital Left Blood Culture - Final Staphylococcus aureus 08/27/23 01:47 Blood Culture (Wb) - Anticubital Right Blood Culture - Final No growth in 5 days. 08/29/23 13:55 Blood Culture (Wb) - Anticubital Left Blood Culture - Preliminary No growth in 48 hours. 08/28/23 09:05 Blood Culture (Wb) - Left Hand Blood Culture - Preliminary No growth in 48 hours. 08/28/23 08:55 Blood Culture (Wb) - Anticubital Left Blood Culture - Preliminary No growth in 48 hours. 08/27/23 01:50 Urine, Clean Catch Urine Culture - Final Klebsiella aerogenes Streptococcus agalactiae (B) 08/27/23 01:35 Mucosa - Nasopharyngeal Respiratory Panel (PCR) - Final 08/27/23 01:50 Urine, Clean Catch Legionella Antigen - Final 08/27/23 01:50 Urine, Clean Catch Streptococcus pneumoniae Antigen (M - Final 08/27/23 01:35 Mucosa - Nasopharyngeal SARS-CoV-2, Influenza & RSV (PCR) - Final Physical Exam Narrative Alert awake oriented x 3 no obvious distress no JVD s1s2 no murmurs lungs clear anteriorly abdomen soft Trace bilateral lower extremity edema Assessment & Plan Assessment/Plan (1) History of renal insufficiency: (2) GASTON (acute kidney injury): PLAN: Baseline creatinine had been around 1.5-2 with several fluctuations. In June 2023 serum creatinine ranging 2.3 to 2.6 mg/dL. Urine analysis shows significant amount of proteinuria, few WBC, few RBCs. In March she had serologic workup: ANCA negative, serum protein electrophoresis negative, double-stranded DNA negative Urine protein creatinine ratio 9.8 g, possible diabetes related Pending anti-GBM antibody Renal ultrasound was negative. Urine immunofixation negative - Acute renal failure versus some progression of CKD now at baseline, GASTON is likely hemodynamic. Serum creatinine 2.3 on admission and has been 2.3 mg/dL over 4 days. No acute indication for COMMAND AND CONTROL SPECIALIST. Patient has good urine output. Previous echocardiogram with preserved ejection fraction, pulmonary hypertension could not be assessed due to insufficient tricuspid regurgitation flow. V/Q scan low probability for PE. Venous Doppler negative DVT BNP is on the lower side at 110, although this could be artificially low in someone with morbid obesity Chest x-ray does show edema/infiltrates. Continue p.o. Lasix. Hyperkalemia. Potassium has been borderline high. Currently she is n.p.o. We will give a dose of Kayexalate tomorrow
[2023-09-01] MEDS: Pantoprazole Sodium 40 MG Tablet PO (11:07)
[2023-09-01] MEDS: guaiFENesin 1,200 MG Tablet 1200 MG PO (11:07)
[2023-09-01] MEDS: Furosemide 40 MG Tablet PO (11:07)
[2023-09-01] MEDS: Escitalopram Oxalate 10 MG Tablet PO (11:07)
[2023-09-01] MEDS: Fenofibrate 48 MG Tablet PO (11:07)
[2023-09-01 11:43] LABS: Bedside Glucose 86 mg/dL (74-106)
--- NOTE | 2023-09-01 13:24 | PCM.PN.HOSP ---
Reason for Visit Reason for Visit: Diagnoses Methicillin susceptible Staphylococcus aureus infection as the cause of diseases classified elsewhere (08/26/23) Type 2 diabetes mellitus with diabetic polyneuropathy (08/26/23) Acute on chronic diastolic (congestive) heart failure (08/26/23) Heart failure, unspecified (08/26/23) Acute respiratory failure with hypoxia (08/26/23) Acute and chronic respiratory failure with hypoxia (08/26/23) Acute and chronic respiratory failure with hypercapnia (08/26/23) Respiratory failure, unspecified, unspecified whether with hypoxia or hypercapnia (08/26/23) Acute kidney failure, unspecified (08/26/23) Bacteremia (08/26/23) 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 Patient seen at bedside this morning. Sitting up comfortably in bed, conversing normally, no acute distress. Patient denies any acute pain or discomfort this morning. Feels similar today to the last few days. No other acute concerns this time. Objective Data Objective Data Vital Signs: Vital Signs Temp Pulse Resp BP Pulse Ox O2 Del Method O2 Flow Rate 97.2 F L 61 18 91/55 L 98 Nasal Cannula 2 09/01/23 09:45 09/01/23 10:31 09/01/23 10:31 09/01/23 09:45 09/01/23 09:45 09/01/23 09:45 09/01/23 09:45 FiO2 30 08/31/23 23:00 Oxygen Flow Rate (L/min) 2 Oxygen Delivery Method Nasal Cannula Weight: 138 kg Body Mass Index (BMI) 50.6 Intake & Output: Intake and Output for Last 24 Hours 08/30/23 08/31/23 09/01/23 23:59 23:59 23:59 Intake Total 850 / 850 200 / 200 220 / 220 Output Total 600 / 600 1450 / 1450 650 / 650 Balance 250 / 250 -1250 / -1250 -430 / -430 Lab / Micro Data 09/01/23 05:20 09/01/23 05:20 Labs: Laboratory Results - last 24 hr 08/31/23 16:44: POC Glucose 162 H 08/31/23 21:16: POC Glucose 138 H 09/01/23 05:20: WBC 3.0 L, RBC 2.75 L, Hgb 7.7 L, Hct 25.1 L, MCV 91.3, MCH 28.0, MCHC 30.7 L, RDW Std Deviation 53.7 H, RDW Coeff of Vlad 16.4 H, Plt Count 78 L, MPV 12.2 H, PT 13.6, INR 1.0, APTT 36.6 H, Sodium 143, Potassium 5.5 H, Chloride 110 H, Carbon Dioxide 29.0, Anion Gap 4 L, BUN 51 H, Creatinine 1.90 H, Estim Creat Clear Calc 41.66, Est GFR (MDRD) Af Amer 34 L, Est GFR (MDRD) Non-Af 28 L, BUN/Creatinine Ratio 26.8 H, Glucose 95, Calcium 9.3 09/01/23 06:21: POC Glucose 97 09/01/23 11:14: POC Glucose 86 Micro: Microbiology 08/27/23 01:29 Blood Culture (Wb) - Anticubital Left Bacteria Detection (PCR) - Final Staphylococcus aureus 08/27/23 01:29 Blood Culture (Wb) - Anticubital Left Blood Culture - Final Staphylococcus aureus 08/27/23 01:47 Blood Culture (Wb) - Anticubital Right Blood Culture - Final No growth in 5 days. 08/29/23 13:55 Blood Culture (Wb) - Anticubital Left Blood Culture - Preliminary No growth in 48 hours. 08/28/23 09:05 Blood Culture (Wb) - Left Hand Blood Culture - Preliminary No growth in 48 hours. 08/28/23 08:55 Blood Culture (Wb) - Anticubital Left Blood Culture - Preliminary No growth in 48 hours. 08/27/23 01:50 Urine, Clean Catch Urine Culture - Final Klebsiella aerogenes Streptococcus agalactiae (B) 08/27/23 01:35 Mucosa - Nasopharyngeal Respiratory Panel (PCR) - Final 08/27/23 01:50 Urine, Clean Catch Legionella Antigen - Final 08/27/23 01:50 Urine, Clean Catch Streptococcus pneumoniae Antigen (M - Final 08/27/23 01:35 Mucosa - Nasopharyngeal SARS-CoV-2, Influenza & RSV (PCR) - Final Physical Exam Const alert and oriented x3 Constitutional Narrative: Elderly female, morbidly obese, laying comfortably in bed, conversing normally, no acute distress. General Appearance: cooperative HEENT normocephalic, head/scalp atraumatic, hearing grossly normal bilaterally, nasal mucous membranes and turbinates normal and moist oral mucous membranes Eyes PERRL, EOMs intact bilaterally and conjunctivae normal Neck full ROM, no lymphadenopathy and supple Lymph Lymphatic: no lymphadenopathy noted Chest inspection of chest normal Resp Resp Narrative: No increased work of breathing noted on 2 L nasal cannula. Moderately diminished breath sounds bilaterally, no wheezing or crackles noted, similar to previous. Cardio regular rate, regular rhythm, no murmurs and peripheral pulses 2+ throughout GI normal to inspection, nondistended, normoactive bowel sounds, soft to palpation, non-tender and non-distended Back/Spine normal ROM Extremity full ROM Extremity Narrative: +2-3 lower extremity edema noted, stable. Skin no rashes or lesions noted Neuro no focal motor deficits and no sensory deficits noted Speech: speech normal Psych mental status grossly normal Assessment & Plan Assessment/Plan (1) Acute on chronic heart failure with preserved ejection fraction (HFpEF): (2) Acute on chronic respiratory failure with hypoxia and hypercapnia: (3) GASTON (acute kidney injury): PLAN: Plan Patient is a 63-year-old female who presented to [facility] ED on 08/26/2023 with worsening shortness of breath at rest. 1. Acute on chronic combined respiratory failure, improved Suspect secondary to noncompliance with prescribed outpatient therapy, has not been compliant with home CPAP. May also have an element of obesity hypoventilation syndrome. Per e business specialist, patient has been referred to pulmonology for sleep apnea multiple occasions but has failed to follow-up. Currently using 2 L nasal cannula during the day and 4 L nasal cannula at night. ? Plumbing Mechanic followed. Patient returned to her baseline on morning of 08/27 with positive pressure ventilation. Transferred out of ICU on 08/29. BiPAP therapy with naps and at night. Encourage incentive spirometry use and mobilize patient as able. 2. Acute on chronic anemia, recurrent upper GI bleed due to gastric ulcer Hemoglobin 8.1 on admit, down trended to hemoglobin 6.9 on hospital day 2. Baseline hemoglobin appears to be around 7-8. Seems most likely due to lab draws and hemodilution on admission, but patient does have history of peptic ulcer disease with duodenitis requiring EGD in 04/2023. Patient denies any dark or bloody stools. S/p 2 units packed red blood cells transfused as of 08/30. ? Gastroenterology followed. S/p EGD on 08/30 that showed an oozing gastric ulcer with pigmented material that was injected and treated with heater probe as well as acute duodenitis was biopsied. Hemoglobin stable post EGD, continue to monitor CBC daily. Continue home p.o. PPI twice daily. 3. MSSA bacteremia ? Infectious disease following. Blood cultures 08/27 positive for MSSA. Splinter hemorrhage on left thumb concerning for endocarditis. TTE 08/28 did not show any evidence of endocarditis or significant valvular dysfunction. Antibiotics narrowed to Ancef on 08/28. Repeat blood cultures with no growth to date. Discussed with cardiology, unfortunately not able to complete CY due to recent upper GI bleed from gastric ulcer. Per ID, okay for discharge on 10 more days of linezolid on 09/01, stop date 09/10. 4. GASTON on CKD stage IV, improving; mild hyperkalemia ? Nephrology following. Patient appears to have mild GASTON on CKD, versus progression of CKD now at new baseline. Urine output has been adequate. Potassium 5.4 on 08/31, stable. Diuretics increased to p.o. Lasix 40 mg twice daily on 08/30, continue this for now. Renal diet. Monitor daily BMP. 5. Type 2 diabetes mellitus with hyperglycemia and with diabetic neuropathy Blood glucose in the 400s on admission, no evidence of DKA. Home regimen of Lantus 54 units at night, Humalog 6 units with meals plus sliding scale insulin, Trulicity weekly. A1c 8.7% on 07/15/23. ? Continue Lantus 40 units at night, Humalog 10 units with meals plus sliding scale insulin, adjust as needed. Continue home gabapentin. 6. History of GERD with peptic ulcer disease and duodenitis ? EGD on 05/07/2023 showed an oozing gastric ulcer noted injected and treated with heater probe x 2 as well as acute duodenitis. No further GI bleeding since then per patient. Continue home p.o. PPI twice daily and Carafate. 7. Hypothyroidism ? TSH 48 on admit, free T4 low. No evidence of myxedema coma. Unclear if patient has been nonadherent to home Synthroid. Continue home Synthroid 150 mcg daily. Recommend repeat TSH and T4 check in 6 to 8 weeks. Chronic medical conditions: ? Morbid obesity: BMI 51 on admit. Complicates hospital course, care and prognosis. ? Hyperlipidemia: Continue home statin and fenofibrate. ? 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 ? Restless leg syndrome: Continue home ropinirole. DVT prophylaxis: SCDs CODE STATUS: Full code, verified Expected disposition: SNF, 1-2 days Total clinical time spent by myself addressing the patient's medical issues, reviewing all the data, and collaborating with patient's care team: 35 minutes. Charges/Coding Visit Charges Inpatient E&M: 43178 Subs Hosp L2
--- NOTE | 2023-09-01 13:36 | PCM.PN.ID ---
Physical Exam Narrative Feeling better, unable to do CY. No fever Const alert and no apparent distress General Appearance: cooperative Resp normal air movement and clear to auscultation bilaterally Cardio regular rate and regular rhythm GI soft to palpation, non-tender and non-distended Skin no rashes or lesions noted Skin Narrative: L thumbnail with dark verticle line in crease of nail ID ID: Route of nutrition/ use of supplements: [] Nutritional Intake: [] IV Site: [] Lyons Catheter: [] Assessment & Plan Assessment/Plan (1) Respiratory failure: (2) Congestive heart failure: (3) MSSA bacteremia: PLAN: MSSA bacteremia per pcr, several weeks of worsened edema/orthopnea - Had MSSA bacteremia 04/2023 as well. Ucx with klebs, moderate pyuria; will change cefazolin to cefepime to cover blood and urine. Repeat bcx rapidly cleared 08/28. Doubt true splinter hemorrhage on L thumb; seems related to crease in nail instead. TTE neg for veg, unable to get CY due to esophageal disease. Ok for discharge on 10 more days po linezlid, updated med list. Will follow
[2023-09-01] MEDS: Gabapentin 100 MG Capsule 200 MG PO (14:04)
--- NOTE | 2023-09-01 15:48 | DCINST_ITS ---
Discharge Instructions Diet Discharge Diet: Renal Diet Activity Discharge Activity: No Restrictions Weight Bearing Status: Full weight bearing Follow Up Care Test Results: Test results from this visit will be discussed in further detail at your follow- up appointment, if applicable. Discharge Plan Admission Admit Date/Time: 08/26/23 23:01 Primary Reason for Your Visit: worsening shortness of breath Attending Provider: Mike Hassan Primary Care Provider: Lulu Luna GRAPHIC PRE PRESS TRADES WORKER Consulting Providers: Perico Casas; Tobias Dickerson; Jose Luis Lechuga Discharge Orders/Prescriptions Prescriptions: New linezolid 600 mg tablet 600 mg PO Q12H 10 Days Qty: 20 0RF insulin glargine-yfgn 100 unit/mL (3 mL) Insulin Pen 13 unit subcut QHS Qty: 0 0RF furosemide 40 mg Tablet 40 mg PO DAILY Qty: 0 0RF insulin lispro [Humalog KwikPen Insulin] 100 unit/mL Insulin Pen 10 unit subcut TIDAC Qty: 0 0RF Continued levothyroxine 150 mcg tablet 150 mcg PO DAILY@0600 atorvastatin 10 mg Tablet 10 mg PO DAILY escitalopram oxalate 10 mg Tablet 10 mg PO DAILY fenofibrate nanocrystallized [Tricor] 48 mg Tablet 48 mg PO DAILY gabapentin 100 mg capsule 200 mg PO BID Patient Comments: Takes morning and afternoon ropinirole 4 mg tablet 4 mg PO QHS Rx Instructions: administer 1-3 hours before bedtime Trulicity 0.75 mg/0.5 mL pen injector 0.75 mg SUBCUT .once a week omega [id number]-[id number]-fish oil [Fish Oil] 300-1,000 mg capsule 1 cap PO BID gabapentin 400 mg capsule 400 mg PO QHS (DME) pen needle, diabetic [Easy Touch] 31 gauge x 1/4 needle MISCELLANEOUS artifi.tears(hypromellose)(PF) 0.3 % drops 1 drp EACH EYE Q2H PRN (Reason: retinal hemmorage) sucralfate [Carafate] 1 gram tablet 1 g PO BID Qty: 60 1RF pantoprazole 40 mg tablet,delayed release (DR/EC) 40 mg PO BID Qty: 60 2RF acetaminophen 325 mg tablet 650 mg PO Q6H PRN (Reason: pain) difluprednate 0.05 % drops 1 drp ophthalmic (eye) .QID Rx Instructions: BOTH EYES- HAD SHOTS IN HER EYES W BLEEDING BEHIND THEM nystatin [Nystop] 100,000 unit/gram powder 1 applic TOPICAL BID Discontinued furosemide [Lasix] 20 mg tablet 20 mg PO DAILY metoclopramide HCl 5 mg tablet 5 mg PO BID potassium chloride 10 mEq capsule, extended release 10 meq PO DAILY insulin lispro 100 unit/mL insulin pen 1 sliding scale dose SUBCUT TIDCM Hold Instructions: CHNAGED Rx Instructions: 150-200- 2 units 201-250- 4 units 251-300- 6 units 301-350- 8 units 351+ -10 units insulin glargine [Lantus Solostar U-100 Insulin] 100 unit/mL (3 mL) insulin pen 54 unit SUBCUT QHS insulin lispro 100 unit/mL insulin pen 6 unit subcut TID Referrals / Follow Up: Lulu Luna GRAPHIC PRE PRESS TRADES WORKER, GRAPHIC PRE PRESS TRADES WORKER-C [Primary Care Provider] - Disposition Disposition (needs filled in before D/C Order can be placed): Residential Facility
--- NOTE | 2023-09-01 15:53 | PCM.TXEXTCAR ---
Diet Diet Order/Speech Therapy: 09/01/23 13:17 Diet: Renal - Protein Restricted Food consistency:: Regular Dietary Modifications:: Consistent Carbohydrate Potassium Restricted Is pt able to select menu?: No Diet Comments: Chew thoroughly Routine Orders/Code Status O2 Liters per Minute: 2 O2 Frequency: Continuous Keep PO Greater than or Equal to (%): 88 Code Status: Full Code Wound(s) right buttock: Wound Type: Pressure Injury Therapies Weight Bearing: Weight bearing as tolerated Extremity Affected:: Bilateral Lower Physical Therapy: Eval and Treat Occupational Therapy: Eval and Treat Problem/Diagnosis (1) Acute on chronic heart failure with preserved ejection fraction (HFpEF): Status: Acute Code(s): I50.33 - Acute on chronic diastolic (congestive) heart failure (2) Acute on chronic respiratory failure with hypoxia and hypercapnia: Status: Chronic Code(s): J96.21 - Acute and chronic respiratory failure with hypoxia; J96.22 - Acute and chronic respiratory failure with hypercapnia (3) GASTON (acute kidney injury): Status: Acute Code(s): N17.9 - Acute kidney failure, unspecified Plan Patient is a 63-year-old female who presented to [facility] ED on 08/26/2023 with worsening shortness of breath at rest. Hospital course as noted below. Discharged to care home facility in stable condition on 09/01. 1. Acute on chronic combined respiratory failure, improved Suspect secondary to noncompliance with prescribed outpatient therapy, has not been compliant with home CPAP. May also have an element of obesity hypoventilation syndrome. Per superintendent fish hatchery, patient has been referred to pulmonology for sleep apnea multiple occasions but has failed to follow-up. Currently using 2 L nasal cannula during the day and 4 L nasal cannula at night. ? Actuarial Technician followed. Patient returned to her baseline on morning of 08/27 with positive pressure ventilation. Transferred out of ICU on 08/29. BiPAP therapy with naps and at night. Encourage incentive spirometry use and mobilize patient as able. 2. Acute on chronic anemia, recurrent upper GI bleed due to gastric ulcer Hemoglobin 8.1 on admit, down trended to hemoglobin 6.9 on hospital day 2. Baseline hemoglobin appears to be around 7-8. Seems most likely due to lab draws and hemodilution on admission, but patient does have history of peptic ulcer disease with duodenitis requiring EGD in 04/2023. Patient denies any dark or bloody stools. S/p 2 units packed red blood cells transfused as of 08/30. ? Gastroenterology followed. S/p EGD on 08/30 that showed an oozing gastric ulcer with pigmented material that was injected and treated with heater probe as well as acute duodenitis was biopsied. Hemoglobin stable post EGD. Continue home p.o. PPI twice daily. Recommend repeat CBC in 5 to 7 days to ensure stability. 3. MSSA bacteremia ? Infectious disease followed. Blood cultures 08/27 positive for MSSA. Splinter hemorrhage on left thumb concerning for endocarditis. TTE 08/28 did not show any evidence of endocarditis or significant valvular dysfunction. Antibiotics narrowed to Ancef on 08/28. Repeat blood cultures with no growth to date. Discussed with cardiology, unfortunately not able to complete CY due to recent upper GI bleed from gastric ulcer. Per ID, okay for discharge on 10 more days of linezolid on 09/01, stop date 09/10. 4. GASTON on CKD stage IV, improved; mild hyperkalemia ? Nephrology followed. Patient appeared to have mild GASTON on CKD, versus progression of CKD now at new baseline. Urine output has been adequate. Potassium stable between 5.0 and 5.5 for last several days of admission. Continue p.o. Lasix 40 mg daily on discharge. Renal diet on discharge. Recommend repeat BMP in 5 to 7 days to ensure stability. 5. Type 2 diabetes mellitus with hyperglycemia and with diabetic neuropathy Blood glucose in the 400s on admission, no evidence of DKA. Home regimen of Lantus 54 units at night, Humalog 6 units with meals plus sliding scale insulin, Trulicity weekly. A1c 8.7% on 07/15/23. ? Patient's dosing while inpatient was significantly lower than home dosing. Had good blood sugar control while inpatient. Will discharge on Lantus 13 units at night, Humalog 10 units with meals. Continue home gabapentin. 6. History of GERD with peptic ulcer disease and duodenitis ? EGD on 05/07/2023 showed an oozing gastric ulcer noted injected and treated with heater probe x 2 as well as acute duodenitis. No further GI bleeding since then per patient. Continue home p.o. PPI twice daily and Carafate. 7. Hypothyroidism ? TSH 48 on admit, free T4 low. No evidence of myxedema coma. Unclear if patient has been nonadherent to home Synthroid. Continue home Synthroid 150 mcg daily. Recommend repeat TSH and T4 check in 6 to 8 weeks. Chronic medical conditions: ? Morbid obesity: BMI 51 on admit. Complicates hospital course, care and prognosis. ? Hyperlipidemia: Continue home statin and fenofibrate. ? 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 ? Restless leg syndrome: Continue home ropinirole. Total clinical time spent by myself addressing the patient's discharge needs: 35 minutes. Allergies/Procedures Done in Hospital Allergies No Known Allergies Allergy (Verified 07/14/23 18:45) Procedures: EGD, EKG, Transthoracic Echo and - (chest x-ray, VQ lung scan, venous doppler study) Type of Care/Length of Stay Estimated LOS: Convalescent Care Less Than 30 days Type of Care Needed: Skilled Rehab Potential: Fair Prognosis: Fair Additional Orders/Day of Discharge Day of Discharge: 09/01/23 Dietary and Speech Recommendations Dietitian Recommendations/Changes: Will change diet to Renal Low Protein, 1800CCD, potassium restricted diet to manage medical conditions. Discharge Plan Admission Admit Date/Time: 08/26/23 23:01 Primary Reason for Your Visit: worsening shortness of breath Attending Provider: Mike Hassan Primary Care Provider: Lulu Luna ACETYLENE TORCH SOLDERER Consulting Providers: Perico Casas; Tobias Dickerson; Jose Luis Lechuga Discharge Orders/Prescriptions Prescriptions: New linezolid 600 mg tablet 600 mg PO Q12H 10 Days Qty: 20 0RF insulin glargine-yfgn 100 unit/mL (3 mL) Insulin Pen 13 unit subcut QHS Qty: 0 0RF furosemide 40 mg Tablet 40 mg PO DAILY Qty: 0 0RF insulin lispro [Humalog KwikPen Insulin] 100 unit/mL Insulin Pen 10 unit subcut TIDAC Qty: 0 0RF Continued levothyroxine 150 mcg tablet 150 mcg PO DAILY@0600 atorvastatin 10 mg Tablet 10 mg PO DAILY escitalopram oxalate 10 mg Tablet 10 mg PO DAILY fenofibrate nanocrystallized [Tricor] 48 mg Tablet 48 mg PO DAILY gabapentin 100 mg capsule 200 mg PO BID Patient Comments: Takes morning and afternoon ropinirole 4 mg tablet 4 mg PO QHS Rx Instructions: administer 1-3 hours before bedtime Trulicity 0.75 mg/0.5 mL pen injector 0.75 mg SUBCUT .once a week omega 9-ern-ptz-fish oil [Fish Oil] 300-1,000 mg capsule 1 cap PO BID gabapentin 400 mg capsule 400 mg PO QHS (DME) pen needle, diabetic [Easy Touch] 31 gauge x 1/4 needle MISCELLANEOUS artifi.tears(hypromellose)(PF) 0.3 % drops 1 drp EACH EYE Q2H PRN (Reason: retinal hemmorage) sucralfate [Carafate] 1 gram tablet 1 g PO BID Qty: 60 1RF pantoprazole 40 mg tablet,delayed release (DR/EC) 40 mg PO BID Qty: 60 2RF acetaminophen 325 mg tablet 650 mg PO Q6H PRN (Reason: pain) difluprednate 0.05 % drops 1 drp ophthalmic (eye) .QID Rx Instructions: BOTH EYES- HAD SHOTS IN HER EYES W BLEEDING BEHIND THEM nystatin [Nystop] 100,000 unit/gram powder 1 applic TOPICAL BID Discontinued furosemide [Lasix] 20 mg tablet 20 mg PO DAILY metoclopramide HCl 5 mg tablet 5 mg PO BID potassium chloride 10 mEq capsule, extended release 10 meq PO DAILY insulin lispro 100 unit/mL insulin pen 1 sliding scale dose SUBCUT TIDCM Hold Instructions: CHNAGED Rx Instructions: 150-200- 2 units 201-250- 4 units 251-300- 6 units 301-350- 8 units 351+ -10 units insulin glargine [Lantus Solostar U-100 Insulin] 100 unit/mL (3 mL) insulin pen 54 unit SUBCUT QHS insulin lispro 100 unit/mL insulin pen 6 unit subcut TID Referrals / Follow Up: Lulu Luna ACETYLENE TORCH SOLDERER, ACETYLENE TORCH SOLDERER-C [Primary Care Provider] - Disposition Disposition (needs filled in before D/C Order can be placed): [facility] Charges/Coding Visit Charges Inpatient E&M: 54293 Disch Hosp >30min
--- NOTE | 2023-09-01 15:57 | PCM.DC.SUM ---
Providers Date of Admission: 08/26/23 Date of Discharge: 09/01/23 Primary Care Physician: KELVIN Garcia Consultations 08/27/23 01:36 Consult: Nephrology Routine Consulting Provider: Jose Luis Lechuga Reason for Consult: CKD stage iv on diuretics for CHF EXA EMERGENT Consult: No Notified: Yes Date Notified: 08/27/23 Time Notified: 01:36 Method of Notification: Text 08/28/23 09:29 Consult: Infectious Disease Routine Consulting Provider: Tobias Dickerson Reason for Consult: MRSA Bacteremia EMERGENT Consult: No Notified: Yes Date Notified: 08/28/23 Time Notified: 09:29 Method of Notification: Verbal 08/29/23 07:14 Consult: Gastroenterology Routine Consulting Provider: [facility] Reason for Consult: worsening anemia w/ recent h/o upper GI bleed EMERGENT Consult: No Notified: Yes Date Notified: 08/29/23 Time Notified: 07:34 Method of Notification: Text Reason For Visit: ACUTE RESP FAILURE Diagnosis Discharge Diagnosis (1) Acute on chronic heart failure with preserved ejection fraction (HFpEF): Status: Acute Code(s): I50.33 - Acute on chronic diastolic (congestive) heart failure (2) Acute on chronic respiratory failure with hypoxia and hypercapnia: Status: Chronic Code(s): J96.21 - Acute and chronic respiratory failure with hypoxia; J96.22 - Acute and chronic respiratory failure with hypercapnia (3) GASTON (acute kidney injury): Status: Acute Code(s): N17.9 - Acute kidney failure, unspecified Medications at Discharge Home Medications atorvastatin 10 mg tablet 10 mg PO DAILY cholesterol 09/24/22 escitalopram oxalate 10 mg tablet 10 mg PO DAILY anxiety 09/24/22 fenofibrate nanocrystallized 48 mg tablet (Tricor) 48 mg PO DAILY cholesterol 09/24/22 gabapentin 100 mg capsule 200 mg PO BID PAIN 03/05/23 levothyroxine 150 mcg tablet 150 mcg PO DAILY@0600 SEE PCP 03/05/23 ropinirole 4 mg tablet 4 mg PO QHS restless legs 03/05/23 dulaglutide 0.75 mg/0.5 mL subcutaneous pen injector (Trulicity) 0.75 mg subcut .once a week dm2 04/14/23 gabapentin 400 mg capsule 400 mg PO QHS SEE PCP 04/14/23 omega 7-zgx-xjc-fish oil 300 mg-1,000 mg capsule (Fish Oil) 1 cap PO BID VITAMIN 04/14/23 pen needle, diabetic 31 gauge x 1/4 (Easy Touch) 04/14/23 artifi.tears(hypromellose)(PF) 0.3 % eye drops 1 drp EACH EYE Q2H PRN retinal hemmorage 04/15/23 pantoprazole 40 mg tablet,delayed release 40 mg PO BID #60 tabs 05/08/23 sucralfate 1 gram tablet (Carafate) 1 g PO BID #60 tabs 05/08/23 acetaminophen 325 mg tablet 650 mg PO Q6H PRN pain 08/26/23 difluprednate 0.05 % eye drops 1 drp ophthalmic (eye) .QID 08/26/23 nystatin 100,000 unit/gram topical powder (Nystop) 1 applic topical BID 08/26/23 furosemide 40 mg tablet 40 mg PO DAILY #0 tabs 09/01/23 insulin glargine-yfgn 100 unit/mL (3 mL) subcutaneous pen 13 unit (0.13 mL) subcut QHS #0 mL 09/01/23 insulin lispro 100 unit/mL subcutaneous pen (Humalog KwikPen (U-100) Insulin) 10 unit (0.1 mL) subcut TIDAC #0 mL 09/01/23 linezolid 600 mg tablet 600 mg PO Q12H 10 days #20 tabs 09/01/23 Hospital Course Operations None Procedures EGD, EKG, Transthoracic echo and - (chest x-ray, VQ scan, venous doppler study) Summary of Care Provided Minutes Spent on Discharge: 35 Hospital Course: Patient is a 63-year-old female who presented to [facility] ED on 08/26/2023 with worsening shortness of breath at rest. Hospital course as noted below. Discharged to group home facility in stable condition on 09/01. . Acute on chronic combined respiratory failure, improved Suspect secondary to noncompliance with prescribed outpatient therapy, has not been compliant with home CPAP. May also have an element of obesity hypoventilation syndrome. Per plant wrapper, patient has been referred to pulmonology for sleep apnea multiple occasions but has failed to follow-up. Currently using 2 L nasal cannula during the day and 4 L nasal cannula at night. ? Nuclear Equipment Research Engineer followed. Patient returned to her baseline on morning of 08/27 with positive pressure ventilation. Transferred out of ICU on 08/29. BiPAP therapy with naps and at night. Encourage incentive spirometry use and mobilize patient as able. 2. Acute on chronic anemia, recurrent upper GI bleed due to gastric ulcer Hemoglobin 8.1 on admit, down trended to hemoglobin 6.9 on hospital day 2. Baseline hemoglobin appears to be around 7-8. Seems most likely due to lab draws and hemodilution on admission, but patient does have history of peptic ulcer disease with duodenitis requiring EGD in 04/2023. Patient denies any dark or bloody stools. S/p 2 units packed red blood cells transfused as of 08/30. ? Gastroenterology followed. S/p EGD on 08/30 that showed an oozing gastric ulcer with pigmented material that was injected and treated with heater probe as well as acute duodenitis was biopsied. Hemoglobin stable post EGD. Continue home p.o. PPI twice daily. Recommend repeat CBC in 5 to 7 days to ensure stability. 3. MSSA bacteremia ? Infectious disease followed. Blood cultures 08/27 positive for MSSA. Splinter hemorrhage on left thumb concerning for endocarditis. TTE 08/28 did not show any evidence of endocarditis or significant valvular dysfunction. Antibiotics narrowed to Ancef on 08/28. Repeat blood cultures with no growth to date. Discussed with cardiology, unfortunately not able to complete CY due to recent upper GI bleed from gastric ulcer. Per ID, okay for discharge on 10 more days of linezolid on 09/01, stop date 09/10. 4. GASTON on CKD stage IV, improved; mild hyperkalemia ? Nephrology followed. Patient appeared to have mild GASTON on CKD, versus progression of CKD now at new baseline. Urine output has been adequate. Potassium stable between 5.0 and 5.5 for last several days of admission. Continue p.o. Lasix 40 mg daily on discharge. Renal diet on discharge. Recommend repeat BMP in 5 to 7 days to ensure stability. 5. Type 2 diabetes mellitus with hyperglycemia and with diabetic neuropathy Blood glucose in the 400s on admission, no evidence of DKA. Home regimen of Lantus 54 units at night, Humalog 6 units with meals plus sliding scale insulin, Trulicity weekly. A1c 8.7% on 07/15/23. ? Patient's dosing while inpatient was significantly lower than home dosing. Had good blood sugar control while inpatient. Will discharge on Lantus 13 units at night, Humalog 10 units with meals. Continue home gabapentin. 6. History of GERD with peptic ulcer disease and duodenitis ? EGD on 05/07/2023 showed an oozing gastric ulcer noted injected and treated with heater probe x 2 as well as acute duodenitis. No further GI bleeding since then per patient. Continue home p.o. PPI twice daily and Carafate. 7. Hypothyroidism ? TSH 48 on admit, free T4 low. No evidence of myxedema coma. Unclear if patient has been nonadherent to home Synthroid. Continue home Synthroid 150 mcg daily. Recommend repeat TSH and T4 check in 6 to 8 weeks. Chronic medical conditions: ? Morbid obesity: BMI 51 on admit. Complicates hospital course, care and prognosis. ? Hyperlipidemia: Continue home statin and fenofibrate. ? 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 ? Restless leg syndrome: Continue home ropinirole. Total clinical time spent by myself addressing the patient's discharge needs: 35 minutes. Physical Exam Const alert and oriented x3 Constitutional Narrative: Elderly female, morbidly obese, laying comfortably in bed, conversing normally, no acute distress. General Appearance: cooperative HEENT normocephalic, head/scalp atraumatic, hearing grossly normal bilaterally, nasal mucous membranes and turbinates normal and moist oral mucous membranes Eyes PERRL, EOMs intact bilaterally and conjunctivae normal Neck full ROM, no lymphadenopathy and supple Lymph Lymphatic: no lymphadenopathy noted Chest inspection of chest normal Resp Resp Narrative: No increased work of breathing noted on 2 L nasal cannula. Moderately diminished breath sounds bilaterally, no wheezing or crackles noted, similar to previous. Cardio regular rate, regular rhythm, no murmurs and peripheral pulses 2+ throughout GI normal to inspection, nondistended, normoactive bowel sounds, soft to palpation, non-tender and non-distended Back/Spine normal ROM Extremity full ROM Extremity Narrative: +2-3 lower extremity edema noted, stable. Skin no rashes or lesions noted Neuro no focal motor deficits and no sensory deficits noted Speech: speech normal Psych mental status grossly normal Weight / BMI Weight Weight: 138 kg Body Mass Index (BMI) 50.6 ABG / Lab / Microbiology Data 09/01/23 05:20 09/01/23 05:20 Laboratory: Laboratory Results - last 24 hr 08/31/23 16:44: POC Glucose 162 H 08/31/23 21:16: POC Glucose 138 H 09/01/23 05:20: WBC 3.0 L, RBC 2.75 L, Hgb 7.7 L, Hct 25.1 L, MCV 91.3, MCH 28.0, MCHC 30.7 L, RDW Std Deviation 53.7 H, RDW Coeff of Vlad 16.4 H, Plt Count 78 L, MPV 12.2 H, PT 13.6, INR 1.0, APTT 36.6 H, Sodium 143, Potassium 5.5 H, Chloride 110 H, Carbon Dioxide 29.0, Anion Gap 4 L, BUN 51 H, Creatinine 1.90 H, Estim Creat Clear Calc 41.66, Est GFR (MDRD) Af Amer 34 L, Est GFR (MDRD) Non-Af 28 L, BUN/Creatinine Ratio 26.8 H, Glucose 95, Calcium 9.3 09/01/23 06:21: POC Glucose 97 09/01/23 11:14: POC Glucose 86 Microbiology: Microbiology 08/27/23 01:29 Blood Culture (Wb) - Anticubital Left Bacteria Detection (PCR) - Final Staphylococcus aureus 08/27/23 01:29 Blood Culture (Wb) - Anticubital Left Blood Culture - Final Staphylococcus aureus 08/27/23 01:47 Blood Culture (Wb) - Anticubital Right Blood Culture - Final No growth in 5 days. 08/29/23 13:55 Blood Culture (Wb) - Anticubital Left Blood Culture - Preliminary No growth in 48 hours. 08/28/23 09:05 Blood Culture (Wb) - Left Hand Blood Culture - Preliminary No growth in 48 hours. 08/28/23 08:55 Blood Culture (Wb) - Anticubital Left Blood Culture - Preliminary No growth in 48 hours. 08/27/23 01:50 Urine, Clean Catch Urine Culture - Final Klebsiella aerogenes Streptococcus agalactiae (B) 08/27/23 01:35 Mucosa - Nasopharyngeal Respiratory Panel (PCR) - Final 08/27/23 01:50 Urine, Clean Catch Legionella Antigen - Final 08/27/23 01:50 Urine, Clean Catch Streptococcus pneumoniae Antigen (M - Final 08/27/23 01:35 Mucosa - Nasopharyngeal SARS-CoV-2, Influenza & RSV (PCR) - Final D/C Instructions Discharge Diet: Renal Diet Weight Bearing Status: Full weight bearing Meaningful Use Info Meaningful Use Diagnoses (Choose all that apply): None applicable Discharge Plan Admission Admit Date/Time: 08/26/23 23:01 Primary Reason for Your Visit: worsening shortness of breath Attending Provider: Mike Hassan Primary Care Provider: Lulu Luna COVER CUTTER MACHINE Consulting Providers: Perico Casas; Tobias Dickerson; Jose Luis Lechuga Discharge Orders/Prescriptions Prescriptions: New linezolid 600 mg tablet 600 mg PO Q12H 10 Days Qty: 20 0RF insulin glargine-yfgn 100 unit/mL (3 mL) Insulin Pen 13 unit subcut QHS Qty: 0 0RF furosemide 40 mg Tablet 40 mg PO DAILY Qty: 0 0RF insulin lispro [Humalog KwikPen Insulin] 100 unit/mL Insulin Pen 10 unit subcut TIDAC Qty: 0 0RF Continued levothyroxine 150 mcg tablet 150 mcg PO DAILY@0600 atorvastatin 10 mg Tablet 10 mg PO DAILY escitalopram oxalate 10 mg Tablet 10 mg PO DAILY fenofibrate nanocrystallized [Tricor] 48 mg Tablet 48 mg PO DAILY gabapentin 100 mg capsule 200 mg PO BID Patient Comments: Takes morning and afternoon ropinirole 4 mg tablet 4 mg PO QHS Rx Instructions: administer 1-3 hours before bedtime Trulicity 0.75 mg/0.5 mL pen injector 0.75 mg SUBCUT .once a week omega 1-zrp-ktd-fish oil [Fish Oil] 300-1,000 mg capsule 1 cap PO BID gabapentin 400 mg capsule 400 mg PO QHS (DME) pen needle, diabetic [Easy Touch] 31 gauge x 1/4 needle MISCELLANEOUS artifi.tears(hypromellose)(PF) 0.3 % drops 1 drp EACH EYE Q2H PRN (Reason: retinal hemmorage) sucralfate [Carafate] 1 gram tablet 1 g PO BID Qty: 60 1RF pantoprazole 40 mg tablet,delayed release (DR/EC) 40 mg PO BID Qty: 60 2RF acetaminophen 325 mg tablet 650 mg PO Q6H PRN (Reason: pain) difluprednate 0.05 % drops 1 drp ophthalmic (eye) .QID Rx Instructions: BOTH EYES- HAD SHOTS IN HER EYES W BLEEDING BEHIND THEM nystatin [Nystop] 100,000 unit/gram powder 1 applic TOPICAL BID Discontinued furosemide [Lasix] 20 mg tablet 20 mg PO DAILY metoclopramide HCl 5 mg tablet 5 mg PO BID potassium chloride 10 mEq capsule, extended release 10 meq PO DAILY insulin lispro 100 unit/mL insulin pen 1 sliding scale dose SUBCUT TIDCM Hold Instructions: CHNAGED Rx Instructions: 150-200- 2 units 201-250- 4 units 251-300- 6 units 301-350- 8 units 351+ -10 units insulin glargine [Lantus Solostar U-100 Insulin] 100 unit/mL (3 mL) insulin pen 54 unit SUBCUT QHS insulin lispro 100 unit/mL insulin pen 6 unit subcut TID Referrals / Follow Up: Lulu Luna COVER CUTTER MACHINE, COVER CUTTER MACHINE-C [Primary Care Provider] - Disposition Disposition (needs filled in before D/C Order can be placed): Intermediate Facility Charges/Coding Visit Charges Inpatient E&M: 83120 Disch Hosp >30min
--- NOTE | 2023-09-01 16:06 | CASEMGMT ---
Patient is ready for discharge to [facility]. SW completed a 7000 in VSS Monitoring system. Plan: d/c to [facility] under skilled level of care on a convalescent stay. Physicians will transport patient via wheelchair van. Varsha BELTRAN
[2023-09-01] MEDS: Sucralfate 1 GM Tablet PO (16:07)
--- NOTE | 2023-09-01 16:22 | NURSING ---
Report called to nurse Vela for pt to be d/c to [facility].
[2023-09-01 16:27] LABS: Bedside Glucose 132 mg/dL (74-106)
--- NOTE | 2023-09-01 16:36 | CASEMGMT ---
Discharge Planning Discharge orders, signed med list, and transport time sent to [facility] via [facility]. Physicians will transport patient by 6p. Nursing, SW, patient, and her daughter updated. Louise King, Discharge Planning Asst.
[2023-09-01 21:07] LABS: Anti-Glomerular Basement Memb < 0.2 units (0.0-0.9)
--- NOTE | 2023-09-03 10:59 | CASEMGMT ---
Social Work SW received message from [facility] asking where pt was discharged to. WES returned call and updated on pt dc disposition and date. JOYCE Zaragoza
== END 2023-09-01 18:22 | disposition skilled nursing facility (03) | DRG 291 ==
LOC: ED 23:03 → ICU 23:15 → PCU 08-29 18:07
PROVIDERS: Emergency Medicine; Internal Medicine Critical Care Medicine; Internal Medicine Gastroenterology; Internal Medicine Infectious Disease; Internal Medicine Nephrology; Nurse Practitioner Adult Health; Admitting Provider Internal Medicine; Emergency Provider Emergency Medicine; PCP Nurse Practitioner Adult Health; Visit Provider Hospitalist
PROC: 0DJ08ZZ Inspection of Upper Intestinal Tract, Via Natural or Artificial Opening Endoscopic (ICD-10-PCS; CPT 43235; principal; 2023-08-30 11:15)
DX: I13.0 Hypertensive heart and chronic kidney disease with heart failure and stage 1 through stage 4 chronic kidney disease, or unspecified chronic kidney disease (principal); J96.21 Acute and chronic respiratory failure with hypoxia; K25.4 Chronic or unspecified gastric ulcer with hemorrhage; I50.33 Acute on chronic diastolic (congestive) heart failure; J96.22 Acute and chronic respiratory failure with hypercapnia; R78.81 Bacteremia; E87.29 Other acidosis; E66.2 Morbid (severe) obesity with alveolar hypoventilation; N04.9 Nephrotic syndrome with unspecified morphologic changes; N18.4 Chronic kidney disease, stage 4 (severe); Z68.43 Body mass index [BMI] 50.0-59.9, adult; N17.9 Acute kidney failure, unspecified; I16.1 Hypertensive emergency; N39.0 Urinary tract infection, site not specified; D63.8 Anemia in other chronic diseases classified elsewhere; E11.22 Type 2 diabetes mellitus with diabetic chronic kidney disease; E11.65 Type 2 diabetes mellitus with hyperglycemia; E11.43 Type 2 diabetes mellitus with diabetic autonomic (poly)neuropathy; E11.42 Type 2 diabetes mellitus with diabetic polyneuropathy; Z79.4 Long term (current) use of insulin; E03.9 Hypothyroidism, unspecified; G25.81 Restless legs syndrome; D50.0 Iron deficiency anemia secondary to blood loss (chronic); K29.80 Duodenitis without bleeding; E78.5 Hyperlipidemia, unspecified; K21.9 Gastro-esophageal reflux disease without esophagitis; S60.352A Superficial foreign body of left thumb, initial encounter; K29.70 Gastritis, unspecified, without bleeding; E87.5 Hyperkalemia; B95.61 Methicillin susceptible Staphylococcus aureus infection as the cause of diseases classified elsewhere; Z51.5 Encounter for palliative care; Z66 Do not resuscitate; Z91.199 Patient's noncompliance with other medical treatment and regimen due to unspecified reason; B95.62 Methicillin resistant Staphylococcus aureus infection as the cause of diseases classified elsewhere; Z87.448 Personal history of other diseases of urinary system
CPT/HCPCS: 36415; 36600; 71045; 78582; 80048; 80061; 81001; 82570; 82803; 82962; 83036; 83520; 83605; 83735; 83880; 84100; 84145; 84156; 84439; 84443; 84484; 85014; 85018; 85025; 85027; 85379; 85610; 85730; 86335; 86644; 86850; 86900; 86901; 86920; 86921; 86922; 87040; 87077; 87086; 87088; 87149; 87186; 87449; 87631; 87633; 87641; 88305; 92507; 92526; 92610; 93005; 93306; 93970; 94002; 94003; 94640; 94668; 94760; 94762; 97110; 97162; 97166; 97530; 97535; 99252; 99285; A9540; A9567; J7040; P9016; P9040; Q9957; A4216; C8929; G0463; J1940

== ENCOUNTER 2023-09-07 09:49 | Inpatient (IN) | payer MEDICARE, MEDICAID, SELFPAY ==
[2023-09-07] VITALS (31 sets, daily range): BP systolic 85–123; BP diastolic 45–77; PULSE 44–68; RESP 10–23; TEMP 30.3–36.5; O2SAT 92–100; BMI 49.5; BMI 49.6
--- NOTE | 2023-09-07 10:07 | EX.ED.DYSGE1 ---
HPI History of Present Illness Chief Complaint: Confusion [facility] Medical History (Updated 09/07/23 @ 00:01 by Background Teena) (HFpEF) heart failure with preserved ejection fraction GASTON (acute kidney injury) Anemia Anxiety Anxiety and depression Chest pain Chronic acquired lymphedema Chronic anemia Chronic kidney disease Chronic kidney disease CKD (chronic kidney disease), stage III Congestive heart failure COPD (chronic obstructive pulmonary disease) CPAP (continuous positive airway pressure) dependence Current use of insulin Diabetes Diabetes mellitus with diabetic polyneuropathy Diabetes mellitus, type 2 Gastroparesis History of diabetes mellitus History of fever History of renal insufficiency History of stress test HLD (hyperlipidemia) HTN (hypertension) Hypothyroidism Hypoxia Irregular heartbeat Lower extremity edema Malaise Morbid obesity On home oxygen therapy SACIHN (obstructive sleep apnea) Pleural effusion, left Pulmonary edema Restless legs Retinal hemorrhage Sleep apnea Home Medications atorvastatin 10 mg tablet 10 mg PO DAILY cholesterol 09/24/22 [History Last Taken 04/13/23] escitalopram oxalate 10 mg tablet 10 mg PO DAILY anxiety 09/24/22 [History Last Taken 04/13/23] fenofibrate nanocrystallized 48 mg tablet (Tricor) 48 mg PO DAILY cholesterol 09/24/22 [History Last Taken 04/13/23] gabapentin 100 mg capsule 200 mg PO BID PAIN 03/05/23 [History Last Taken 04/13/23] levothyroxine 150 mcg tablet 150 mcg PO DAILY@0600 SEE PCP 03/05/23 [History Last Taken Unknown] ropinirole 4 mg tablet 4 mg PO QHS restless legs 03/05/23 [History Last Taken 05/01/23] dulaglutide 0.75 mg/0.5 mL subcutaneous pen injector (Trulicity) 0.75 mg subcut .once a week dm2 04/14/23 [History Last Taken 08/15/23] gabapentin 400 mg capsule 400 mg PO QHS SEE PCP 04/14/23 [History Last Taken 04/13/23] omega 1-isz-pxt-fish oil 300 mg-1,000 mg capsule (Fish Oil) 1 cap PO BID VITAMIN 04/14/23 [History Last Taken 04/13/23] pen needle, diabetic 31 gauge x 1/4 (Easy Touch) 04/14/23 [History Last Taken Unknown] artifi.tears(hypromellose)(PF) 0.3 % eye drops 1 drp EACH EYE Q2H PRN retinal hemmorage 04/15/23 [History Last Taken Unknown] pantoprazole 40 mg tablet,delayed release 40 mg PO BID #60 tabs 05/08/23 [Rx Last Taken Unknown] sucralfate 1 gram tablet (Carafate) 1 g PO BID #60 tabs 05/08/23 [Rx Last Taken Unknown] acetaminophen 325 mg tablet 650 mg PO Q6H PRN pain 08/26/23 [History Last Taken Unknown] difluprednate 0.05 % eye drops 1 drp ophthalmic (eye) .QID 08/26/23 [History Last Taken Unknown] nystatin 100,000 unit/gram topical powder (Nystop) 1 applic topical BID 08/26/23 [History Last Taken Unknown] furosemide 40 mg tablet 40 mg PO DAILY #0 tabs 09/01/23 [Rx Last Taken Unknown] insulin glargine-yfgn 100 unit/mL (3 mL) subcutaneous pen 13 unit (0.13 mL) subcut QHS #0 mL 09/01/23 [Rx Last Taken Unknown] insulin lispro 100 unit/mL subcutaneous pen (Humalog KwikPen (U-100) Insulin) 10 unit (0.1 mL) subcut TIDAC #0 mL 09/01/23 [Rx Last Taken Unknown] linezolid 600 mg tablet 600 mg PO Q12H 10 days #20 tabs 09/01/23 [Rx Last Taken Unknown] Allergy/AdvReac Type Severity Reaction Status Date / Time No Known Allergies Allergy Verified 07/14/23 18:45 Family History Mother Heart disease Hypertension Diabetes Father Prostate cancer Surgical History H/O cataract removal with insertion of prosthetic lens History of cholecystectomy History of surgery on lower extremity Social History housing: long term Smoking Status: Never smoker alcohol intake: never substance use type: does not use EXAM Physical Exam Const Vital Signs: 09/07/23 09:50 09/07/23 10:45 09/07/23 10:47 Temperature 86.6 F L 86.8 F L Temperature Source Rectal Core Pulse Rate 47 L 47 L 47 L Respiratory Rate 16 12 Blood Pressure 112/77 99/62 100/67 Blood Pressure Mean 88 74 78 Pulse Ox 100 96 Oxygen Delivery Method Nasal Cannula Nasal Cannula Oxygen Flow Rate (L/min) 2 2 [facility] [place] Narrative Medical decision making narrative: HISTORY OF PRESENT ILLNESS: 63-year-old female presents with increased confusion. Per nursing report there was a mechanical fall from standing today. Patient reports headache. Denies any focal weakness. Denies any chest pain, shortness of breath. Denies any increased urination. REVIEW OF SYSTEMS: Pertinent positives: Headache, altered mental status Pertinent negatives: Chest pain, shortness of breath, abdominal pain, nausea vomiting PHYSICAL EXAM: Nursing triage notes reviewed, Vital signs reviewed Constitutional: please see mdm HENT: MMM Eyes: Pupils equal round and reactive to light, Extraocular muscles intact Neck: No stridor, no JVD, full neck ROM Lungs: Clear to auscultation, No wheezing or rales. No increased work of breathing, no conversational dyspnea, no accessory muscle use, no nasal flaring. No respiratory distress noted Heart: Regular rate and rhythm, No murmurs, No rubs and No gallops, 2+ distal pulses (radial, femoral, posterior tibial) in all extremities Abdomen: Soft, there is no tenderness, rigidity, rebound or guarding, no obvious peritoneal signs, no palpable pulsatile abdominal masses, no auscultated abdominal bruit : No CVAT Extremities: Bilateral lower extremity edema, lymphedema Neuro: No focal neurological deficits, cranial nerves II through XII intact, 5/5 strength in all extremities. Intact sensation to light touch in all extremities, 2+ reflexes bilateral patella tendons. Normal gait. No ataxia. Skin: Intertriginous changes to the bilateral lower extremities in the groin to the anterior thigh consistent with likely tinea cruris MEDICAL DECISION MAKING: Chief Complaint: Altered mental status External records reviewed: Recent ED visit in August 2023 . BiPAP at that time admitted to the ICU secondary to acute on chronic CHF exacerbation. Discharged from hospital on 09/01/2023. Baseline oxygen requirement of 2 L during the day, 4 L at night Patient is a patient factors affecting care: CHF, type 2 diabetes, hypothyroidism Social determinants of health: USP patient History obtained from others: EMS Consults: no internal medicine, ICU MDM Narrative: Patient was initially hypothermic, bradycardic, saturating well on 2 L nasal cannula. Exam without obvious neurodeficit . I considered the following differential diagnosis: Intracranial hemorrhage, cervical spine abnormality, CHF exacerbation, ACS, anemia, electrolyte disturbance, hypothyroidism (myxedema coma), infectious encephalopathy, metabolic encephalopathy I obtained a broad lab and imaging workup to further elucidate etiology patient complaints. Given initial hypothermia I placed the patient on a blanket warmer, gave warmed IV fluids. Gave empiric stress dose steroids given initial concern for myxedema coma. Varinder blood cultures lactate per sepsis protocol. ALL IMAGES (IF OBTAINED) HAVE BEEN PERSONALLY REVIEWED AND INTERPRETED BY MYSELF. EKG with sinus bradycardia, prolonged MS interval, first-degree AV block, left axis deviation, prolonged QT interval, no obvious STEMI pneumonia within normal limits making hepatic encephalopathy slightly less likely although not definitive PTT elevated otherwise no obvious coagulopathy High-sensitivity troponin is negative, no evidence of myocardial ischemia CBC without leukocytosis, stable severe anemia, worsening severe thrombocytopenia BMP with severe hyperkalemia, there is no evidence of metabolic acidosis, there is no elevated anion gap to suggest endorgan hypoperfusion. There is noted GASTON on CKD Lactate is wnl indicating no end-organ hypoperfusion and/or hypoxia. LFTs with mild elevation in AST and ALT however bilirubin alkaline phosphatase are normal BNP mildly elevated TSH is elevated consistent with hypothyroidism however free T4 is within normal limits making eczema, less likely Lipase mildly elevated Urinalysis has evidence of bacteria white blood cells and inflammation concerning for UTI in the setting of altered mental status VBG with severe respiratory acidosis that appears acute, CO2 in this VBG is 73 prior VBG fromGiven concerning results she started on BiPAP The patient and/or family, caregivers express understanding. The patient and/or family, caregivers agrees with the plan. Shared decision making: I will have a discussion with the patient and or visitors regarding risk/benefits of further testing or admission. They will be made aware of of the risk/benefits inherent in this decision they will be given the opportunity to voice understanding. Total critical care time today provided was at least 0 [] minutes. This excludes separately billable procedures. Critical care time (if documented) is secondary to the patient having high probability of clinically significant/life threatening deterioration in the patient's condition which required my urgent intervention. Impression: 1. Altered mental status 2. Hypothermia 3. Bradycardia 4. UTI 5. History of hypothyroidism Dispo: [] This note was generated with [employer]emPath[employer] software. It may contain incorrect words, spelling, and punctuation that were not noted in review of the chart prior to signing. Lab Data Labs: Laboratory Results - last 24 hr 09/07/23 09/07/23 09/07/23 10:21 10:35 10:41 WBC 3.2 L RBC 3.22 L Hgb 8.8 L Hct 30.3 L MCV 94.1 MCH 27.3 MCHC 29.0 L RDW Std Deviation 56.9 H RDW Coeff of Vlad 16.4 H Plt Count 46 L* MPV 12.5 H Immature Gran % (Auto) 8.800 H Neut % (Auto) 62.2 Lymph % (Auto) 18.1 L Harmon % (Auto) 6.9 Eos % (Auto) 3.4 Baso % (Auto) 0.6 Absolute Neuts (auto) 2.0 Absolute Lymphs (auto) 0.58 L Nucleated RBC % 0.6 Platelet Estimate MOD DEC RBC Morphology NORM C+C PT 12.7 INR 1.0 APTT 47.5 H Sodium 143 Potassium 5.8 H Chloride 113 H Carbon Dioxide 28.0 Anion Gap 2 L BUN 72 H Creatinine 3.61 H Estim Creat Clear Calc 21.63 Est GFR (MDRD) Af Amer 16 L Est GFR (MDRD) Non-Af 13 L BUN/Creatinine Ratio 19.9 Glucose 99 Lactic Acid 0.4 Calcium 8.6 Total Bilirubin 0.40 AST 120 H ALT 82 H Alkaline Phosphatase 111 Ammonia 22.0 Troponin I High Sens 14 B-Natriuretic Peptide 144.1 H Total Protein 6.7 Albumin 3.1 L Globulin 3.6 Albumin/Globulin Ratio 0.9 Lipase 138 H TSH 25.90 H Free T4 0.94 Free T3 pg/dL 1.3 L Urine Color Yellow Urine Clarity Sl. Cloudy Urine pH 5.0 Ur Specific [place] 1.025 Urine Protein 500 H Urine Glucose (UA) 100 H Urine Ketones Negative Urine Occult Blood 10 H Urine Nitrite Negative Urine Bilirubin Negative Urine Urobilinogen Normal Ur Leukocyte Esterase 100 H Urine RBC 0-5 SEEN Urine WBC 5-10 SEEN Ur Squamous Epith Cells 0-5 SEEN Urine Bacteria 2+ Urine Mucus 0 SEEN Urine Opiates Screen NEGATIVE Urine Methadone Screen NEGATIVE Ur Barbiturates Screen NEGATIVE Ur Phencyclidine Scrn NEGATIVE Ur Amphetamines Screen NEGATIVE MDMA (Ecstasy) Screen NEGATIVE U Benzodiazepines Scrn NEGATIVE Urine Cocaine Screen NEGATIVE U Cannabinoids Screen NEGATIVE Ur Drug Screen Comment Discharge Plan Triage Chief Complaint: Confusion ED Provider: Henry Mckinley Dx/Rx/DC Orders Prescriptions: No Action levothyroxine 150 mcg tablet 150 mcg PO DAILY@0600 atorvastatin 10 mg Tablet 10 mg PO DAILY escitalopram oxalate 10 mg Tablet 10 mg PO DAILY fenofibrate nanocrystallized [Tricor] 48 mg Tablet 48 mg PO DAILY gabapentin 100 mg capsule 200 mg PO BID Patient Comments: Takes morning and afternoon ropinirole 4 mg tablet 4 mg PO QHS Rx Instructions: administer 1-3 hours before bedtime Trulicity 0.75 mg/0.5 mL pen injector 0.75 mg SUBCUT .once a week omega 2-mce-ofr-fish oil [Fish Oil] 300-1,000 mg capsule 1 cap PO BID gabapentin 400 mg capsule 400 mg PO QHS (DME) pen needle, diabetic [Easy Touch] 31 gauge x 1/4 needle MISCELLANEOUS artifi.tears(hypromellose)(PF) 0.3 % drops 1 drp EACH EYE Q2H PRN (Reason: retinal hemmorage) sucralfate [Carafate] 1 gram tablet 1 g PO BID Qty: 60 1RF pantoprazole 40 mg tablet,delayed release (DR/EC) 40 mg PO BID Qty: 60 2RF acetaminophen 325 mg tablet 650 mg PO Q6H PRN (Reason: pain) difluprednate 0.05 % drops 1 drp ophthalmic (eye) .QID Rx Instructions: BOTH EYES- HAD SHOTS IN HER EYES W BLEEDING BEHIND THEM nystatin [Nystop] 100,000 unit/gram powder 1 applic TOPICAL BID linezolid 600 mg tablet 600 mg PO Q12H 10 Days Qty: 20 0RF insulin glargine-yfgn 100 unit/mL (3 mL) Insulin Pen 13 unit subcut QHS Qty: 0 0RF furosemide 40 mg Tablet 40 mg PO DAILY Qty: 0 0RF insulin lispro [Humalog KwikPen Insulin] 100 unit/mL Insulin Pen 10 unit subcut TIDAC Qty: 0 0RF Primary Care Provider: Lulu Luna ADMIN SECRETARY Referrals: Lulu Luna ADMIN SECRETARY, ADMIN SECRETARY-C [Primary Care Provider] -
--- NOTE | 2023-09-07 10:19 | RAD_ITS ---
STUDY: X-RAY CHEST REASON FOR EXAM: Female, 63 years old. Chest pain/pressure TECHNIQUE: Single AP portable view of the chest. COMPARISON: 08/26/2023 FINDINGS: EKG leads overlie the chest Lungs are expanded. Partial but not yet complete resolution of previously noted diffuse interstitial edema in both lung reyes. Continued follow-up recommended to ensure complete resolution. Stable cardiomegaly. Normal mediastinum and rebekah. Normal visualized pulmonary arteries. Normal visualized aortic arch and descending thoracic aorta. There are diffuse degenerative changes of the visualized thoracic spine. Normal visualized ribs, clavicles, and shoulders. There is no demonstrated abnormality of the visualized soft tissue structures of the upper abdomen. RAD/Chest 1 View (Portable) IMPRESSION: Partial but not yet complete resolution of previously noted diffuse interstitial edema in both lung reyes. Continued follow-up recommended to ensure complete resolution Electronically Signed: King Hadley MD at 12:05 EST ,
--- NOTE | 2023-09-07 10:19 | CT_ITS ---
STUDY: CT BRAIN WITHOUT CONTRAST REASON FOR EXAM: Female, 63 years old. AMS RADIATION DOSAGE (If Supplied By Facility): CTDIvol = ( 44.99 ) mGy, DLP = ( 796.11 ) mGycm TECHNIQUE: Transaxial CT imaging of the brain was performed without administration of intravenous contrast material. Study limited due to motion artifact Individualized dose optimization techniques were used for this CT. COMPARISON: MR brain from 04/17/2023 FINDINGS: Normal soft tissue structures. Normal calvarium. Normal size ventricles and extra-axial spaces for the patient''s age. Normal white matter tracts of the cerebral hemispheres. Normal basal ganglia and thalami. Normal brainstem. Normal cerebellum. There is no intracranial hemorrhage. There are no findings of an acute ischemic infarction. Normal visualized paranasal sinuses. CT/Brain/Head without Contrast IMPRESSION: Chronic involutional changes of the brain. No acute hemorrhage Electronically Signed: King Hadley MD at 12:04 EST ,
--- NOTE | 2023-09-07 10:20 | EKG12_ITS ---
Test Reason : FATIGUE Blood Pressure : / mmHG Vent. Rate : 048 BPM Atrial Rate : 048 BPM P-R Int : 256 ms QRS Dur : 102 ms QT Int : 550 ms P-R-T Axes : 056 -17 069 degrees QTc Int : 491 ms Sinus bradycardia with 1st degree A-V block Prolonged QT Abnormal ECG Confirmed by ARMANDO KAPADIA, GARCIA ([id number]), index editor HARSHIL CARDONA ([id number]) on 09/08/2023 10:19:58 AM Referred By: Confirmed By:GARCIA ROBERTS MD
--- NOTE | 2023-09-07 10:25 | CT_ITS ---
STUDY: CT CERVICAL SPINE WITHOUT CONTRAST REASON FOR EXAM: Female, 63 years old. Neck pain and headache RADIATION DOSAGE (If Supplied By Facility): CTDIvol = ( 27.93 ) mGy, DLP = ( 584.22 ) mGycm TECHNIQUE: High resolution transaxial imaging was performed without contrast material. Sagittal and coronal images were reconstructed. Individualized dose optimization techniques were used for this CT. COMPARISON: None FINDINGS: Normal craniovertebral junction. There are degenerative changes of the anterior atlantoaxial articulation. Normal odontoid process. There is straightening of the normal cervical lordosis. Normal vertebral bodies and posterior osseous elements. C2-3: Normal endplates. Normal disc height and morphology. Normal central canal and intervertebral neuroforamina. C3-4: Normal endplates. Disc space narrowing. Normal central canal and intervertebral neuroforamina. C4-5: Normal endplates. Disc space narrowing. Normal central canal and intervertebral neuroforamina. C5-6: Sclerotic endplate changes with disc space narrowing and posterior uncovertebral spurs. There is a broad-based central disc bulge with borderline central canal narrowing at 8 mm. There is bilateral foraminal narrowing due to a combination of facet joint hypertrophy and uncovertebral spurs. C6-7: Sclerotic endplate changes with disc space narrowing and posterior uncovertebral spurs. There is a broad-based central disc bulge with borderline central canal narrowing at 8 mm. There is bilateral foraminal narrowing due to a combination of facet joint hypertrophy and uncovertebral spurs. C7-T1: Normal endplates. Disc space narrowing. Normal central canal and intervertebral neuroforamina. Soft tissues show peripheral calcifications in the carotid artery bulbs, no airway narrowing or deviation. CT/Spine Cervical without Contras IMPRESSION: Multilevel degenerative changes, as described above. No demonstrated fracture or suspicious osseous lesion. Findings are most pronounced at C5-6 and C6-7 Electronically Signed: King Hadley MD at 12:09 EST ,
[2023-09-07] MEDS: 0.9% Normal Saline (500mL Bag) 500 ML 1000 ML IV (10:30)
[2023-09-07 10:42] LABS: Absolute Lymphocyte Count 0.58 X10^3/uL (0.83-4.51); Basophil# 0.02 X10^3/uL; Basophil% 0.6 % (0-1); Eosinophil# 0.11 X10^3/uL; Eosinophils% 3.4 % (0-5); Hematocrit 30.3 % (37-47); Hemoglobin 8.8 g/dL (12.0-15.0); Lymphocyte # 0.58 X10^3/ul (0.83-4.51); Lymphocyte % 18.1 % (19-41); Mean Corpuscular Hgb 27.3 pg (27.0-32.0); Mean Corpuscular Volume 94.1 fL (81-99); Mean Platelet Vol. 12.5 fl (6.2-12.0); Monocyte# 0.22 X10^3/uL; Monocyte% 6.9 % (0-10); NRBC Flagged by Analyzer 0.6 % (0-5); Neutrophil # 1.99 X10^3/uL (2.7-7.7); Neutrophil % 62.2 % (47-70); POSITIVE COUNT YES; POSITIVE DIFFERENTIAL YES; POSITIVE MORPHOLOGY YES; RBC Distribution Width CV 16.4 % (11.6-14.6); RBC Distribution Width SD 56.9 fl (35.1-43.9); Red Blood Count 3.22 M/mm3 (4.2-5.4); White Blood Count 3.2 K/mm3 (4.4-11.0)
[2023-09-07] MEDS: Hydrocortisone Sod Succinate 100 MG/2 ML Vial IV (10:42)
[2023-09-07 10:46] LABS: Mucous, Urine 0 SEEN /hpf (<or=2+)
[2023-09-07 10:52] LABS: Color, Urine Yellow (Yellow); Glucose, Dipstick 100 mg/dl (Normal); Ketone-Dipstick Negative (Negative); Leukocyte Esterase-Dipstick 100 /ul (Negative); Nitrite-Dipstick Negative (Negative); Occult Blood-Urine 10 /ul (Negative); Protein-Dipstick 500 mg/dl (Negative); Specific Gravity, Urine 1.025 (1.002-1.030); Urine Bilirubin Dipstick Negative (Negative); Urine Clarity Sl. Cloudy (Clear); Urine Urobilinogen Normal (Normal)
[2023-09-07 10:52] LABS: Prothrombin Time (Protime)PT. 12.7 SECONDS (11.7-14.9)
[2023-09-07 10:53] LABS: Partial Thromboplast Time 47.5 Seconds (24.1-36.2)
[2023-09-07 11:00] LABS: ALB/GLOB Ratio 0.9 RATIO (0.9-2.4); AST(SGOT) 120 U/L (15-37); Alanine Aminotransfer ALT/SGPT 82 U/L (13-56); Albumin, Serum 3.1 g/dL (3.2-5.0); Alkaline Phosphatase 111 U/L (45-117); Anion Gap 2 (5-15); BUN 72 mg/dL (7-18); BUN/Creat Ratio 19.9 RATIO (10-20); Calcium,Total 8.6 mg/dL (8.5-10.1); Chloride 113 mmol/L (98-107); Creatinine, Serum 3.61 mg/dL (0.55-1.02); Differential Indicated SCAN CRITERIA MET; EST Glomerular Filtration Rate 13 mL/min (>60); Est Glom Filt Rate - Afr Amer 16 mL/min (>60); Estimated Creatinine Clearance 21.63 ml/min; Free T3 1.3 pg/mL (2.18-3.98); Globulin 3.6 g/dL (2.2-4.2); Glucose 99 mg/dL (74-106); Lipase 138 U/L (13-75); Platelet Count 46 K/mm3 (150-450); Potassium 5.8 mmol/L (3.5-5.1); Protein, Total 6.7 g/dL (6.4-8.2); Sodium Level 143 mmol/L (136-145); T4 Free Direct 0.94 ng/dL (0.76-1.46); Troponin-I HS (w/2H Reflex) 14 pg/mL (3.0-54.0)
[2023-09-07 11:01] LABS: Platelet Estimate MOD DEC (ADEQ); Red Cell Morphology NORM C+C NORMAL (NORM C&C)
[2023-09-07 11:02] LABS: Bacteria 2+ /hpf (None Seen); Red Blood Cells-Urine 0-5 SEEN /hpf (0-5); Squamous Epithelial Cells - UA 0-5 SEEN /hpf (5-10); White Blood Cells 5-10 SEEN /hpf (0-5)
[2023-09-07 11:04] LABS: BNP,B-Type NATRIURETIC PEPTIDE 144.1 pg/mL (0-100)
[2023-09-07 11:09] LABS: Lactic Acid 0.4 mmol/L (0.4-1.9)
[2023-09-07 11:13] LABS: Amphetamine Urine VISTA NEGATIVE (<1000 ng/mL); Barbiturate Urine VISTA NEGATIVE (< 200 ng/mL); Benzodiazepine Urine VISTA NEGATIVE (< 200 ng/mL); Cocaine Urine VISTA NEGATIVE (< 300 ng/mL); Ecstacy Urine VISTA NEGATIVE (< 500 ng/mL); Methadone Urine VISTA NEGATIVE (< 300 ng/mL); PCP Urine VISTA NEGATIVE (< 25 ng/mL); THC Urine VISTA NEGATIVE (< 50 ng/mL); Vista UDS pH Range 5
[2023-09-07 11:49] LABS: Blood Gas Specimen Type VEN; O2 Delivery Device Cannula; SITE Not entered; Time Given 11:46:42; VBG BASE EXCESS -3 mmol/L (-1.0-3.5); VBG Bicarbonate 26 mmol/L (22-26); VBG PO2 105 mmHg (25-40); VBG SO2 96 % (50-70); VBG TCO2 29 mmol/L (23-33); VBG pCO2 73.6 mmHg (41-51); VBG pH 7.16 (7.32-7.42)
[2023-09-07] MEDS: Dextrose 50%-Water 25 GM/50 ML DISP.SYRIN IV (12:21)
[2023-09-07] MEDS: INSULIN LISPRO 999 UNIT IV (12:22)
[2023-09-07] MEDS: Sodium Bicarbonate 8.4% 50 ML Syringe 50 MEQ IV ×2 (12:24→14:06)
[2023-09-07 12:36] LABS: Reflex Troponin-HS? (from REC) Y
[2023-09-07] MEDS: Cefepime HCl 2 GM in 0.9% Normal Saline (100mL MB+) 100 ML IV (12:36)
[2023-09-07 12:54] LABS: Bedside Glucose 104 mg/dL (74-106)
--- NOTE | 2023-09-07 12:55 | NURSING ---
ICU [facility] ACUTE RESP FAILURE, HYPOTHERMIA, HYPERKALEMIA
[2023-09-07 13:20] LABS: Allen Test Positive; Base Excess 0 mmol/L (-2 to +2); Bicarbonate 29.1 mmol/L (22-26); Blood Gas Specimen Type ART; Mode avaps; O2 Delivery Device BiPAP; PO2 144 mmHG (75-100); RR 12; SITE R Radial; SO2 98 % (95-99); Time Given 13:17:01; Total Carbon Dioxide 32 mmol/L; pCO2 85.1 mmHg (35-45); pH 7.14 (7.35-7.45)
[2023-09-07 13:28] LABS: Bedside Glucose 142 mg/dL (74-106)
[2023-09-07] MEDS: 0.9% Normal Saline (1000mL) 1,000 ML 125 ML IV ×2 (14:13→22:15)
[2023-09-07 14:25] LABS: Bedside Glucose 118 mg/dL (74-106)
--- NOTE | 2023-09-07 14:25 | PCM.HP.STD ---
HPI - General General Date of Admission: 09/07/23 Date of Service: 09/07/23 Chief Complaint: Lethargy, mental status change HPI Narrative TOBIN BIGGS, is a 63 F who presents to the emergency room at [facility] from an extended care facility due to lethargy, confusion, and generalized weakness. She had recently been in the hospital here and discharged last week to the nursing facility after being treated for acute on chronic combined respiratory failure, acute on chronic anemia due to recurrent upper GI bleed from gastric ulcer, and MSSA bacteremia. Labs obtained on the patient revealed a white blood cell count of 3.2, hemoglobin of 8.8 and a platelet count of 46,000. Patient's CHEM profile revealed a potassium of 5.8, chloride of 113, BUN of 72 and creatinine of 3.61. AST and ALT were elevated, beta natruretic peptide was 144, lipase was 138, TSH was 25.9, free T4 was normal, free T3 was low at 1.3. Urinalysis showed +2 bacteria, 5-10 WBCs and 100 leukocyte Estrace. Patient's chest x-ray was remarkable for a partial but not yet complete resolution of the previously noted diffuse interstitial infiltrates of both lungs. Patient had a venous blood gas performed which showed acidosis. She was placed on BiPAP to maintain her pulse ox above 90%. Patient was admitted to ICU for acute combined respiratory failure, urinary tract infection, and acute kidney injury. [facility] Medical History (Updated 09/07/23 @ 14:[address] Geo Sharp, DO) (HFpEF) heart failure with preserved ejection fraction GASTON (acute kidney injury) Anemia Anxiety Anxiety and depression Chest pain Chronic acquired lymphedema Chronic anemia Chronic kidney disease Chronic kidney disease CKD (chronic kidney disease), stage III Congestive heart failure COPD (chronic obstructive pulmonary disease) CPAP (continuous positive airway pressure) dependence Current use of insulin Diabetes Diabetes mellitus with diabetic polyneuropathy Diabetes mellitus, type 2 Gastroparesis History of diabetes mellitus History of fever History of renal insufficiency History of stress test HLD (hyperlipidemia) HTN (hypertension) Hypothyroidism Hypoxia Irregular heartbeat Lower extremity edema Malaise Morbid obesity On home oxygen therapy SACHIN (obstructive sleep apnea) Pleural effusion, left Pulmonary edema Restless legs Retinal hemorrhage Sleep apnea Home Medications atorvastatin 10 mg tablet 10 mg PO DAILY cholesterol 09/24/22 [History Last Taken 04/13/23] escitalopram oxalate 10 mg tablet 10 mg PO DAILY anxiety 09/24/22 [History Last Taken 04/13/23] fenofibrate nanocrystallized 48 mg tablet (Tricor) 48 mg PO DAILY cholesterol 09/24/22 [History Last Taken 04/13/23] gabapentin 100 mg capsule 200 mg PO BID PAIN 03/05/23 [History Last Taken 04/13/23] levothyroxine 150 mcg tablet 150 mcg PO DAILY@0600 THYROID 03/05/23 [History Last Taken Unknown] ropinirole 4 mg tablet 4 mg PO QHS restless legs 03/05/23 [History Last Taken 05/01/23] dulaglutide 0.75 mg/0.5 mL subcutaneous pen injector (Trulicity) 0.75 mg subcut WE DIABETES 04/14/23 [History Last Taken 08/15/23] gabapentin 400 mg capsule 400 mg PO QHS PAIN 04/14/23 [History Last Taken 04/13/23] omega 2-kpr-siv-fish oil 300 mg-1,000 mg capsule (Fish Oil) 1 cap PO BID VITAMIN 04/14/23 [History Last Taken 04/13/23] pen needle, diabetic 31 gauge x 1/4 (Easy Touch) 04/14/23 [History Last Taken Unknown] pantoprazole 40 mg tablet,delayed release 40 mg PO BID #60 tabs 05/08/23 [Rx Last Taken Unknown] sucralfate 1 gram tablet (Carafate) 1 g PO BID #60 tabs 05/08/23 [Rx Last Taken Unknown] acetaminophen 325 mg tablet 650 mg PO Q6H PRN pain 08/26/23 [History Last Taken Unknown] difluprednate 0.05 % eye drops 1 drp ophthalmic (eye) 4X/DAY 08/26/23 [History Last Taken Unknown] nystatin 100,000 unit/gram topical powder (Nystop) 1 applic topical BID 08/26/23 [History Last Taken Unknown] furosemide 40 mg tablet 40 mg PO DAILY #0 tabs 09/01/23 [Rx Last Taken Unknown] insulin glargine-yfgn 100 unit/mL (3 mL) subcutaneous pen 13 unit (0.13 mL) subcut QHS #0 mL 09/01/23 [Rx Last Taken Unknown] insulin lispro 100 unit/mL subcutaneous pen (Humalog KwikPen (U-100) Insulin) 10 unit (0.1 mL) subcut TIDAC #0 mL 09/01/23 [Rx Last Taken Unknown] linezolid 600 mg tablet 600 mg PO Q12H 10 days #20 tabs 09/01/23 [Rx Last Taken Unknown] artificial tears(hypromellose) 0.3 % eye gel 1 drp EACH EYE Q2H PRN dry eye(s) 09/07/23 [History Last Taken Unknown] Allergy/AdvReac Type Severity Reaction Status Date / Time No Known Allergies Allergy Verified 07/14/23 18:45 Family History Mother Heart disease Hypertension Diabetes Father Prostate cancer Surgical History H/O cataract removal with insertion of prosthetic lens History of cholecystectomy History of surgery on lower extremity Social History housing: long-term Smoking Status: Never smoker alcohol intake: never substance use type: does not use ROS ROS Narrative Review of systems was unable to be obtained due to patient's lethargy and the fact she was on BiPAP Vital Signs Vital Signs Vital Signs: 09/07/23 09:50 09/07/23 10:45 09/07/23 10:47 Temperature 86.6 F L 86.8 F L Temperature Source Rectal Core Pulse Rate 47 L 47 L 47 L Respiratory Rate 16 12 Respiratory Pattern Blood Pressure 112/77 99/62 100/67 Blood Pressure Mean 88 74 78 Pulse Ox 100 96 Oxygen Delivery Method Nasal Cannula Nasal Cannula Oxygen Flow Rate (L/min) 2 2 Fraction of Inspired Oxygen (FIO2) 09/07/23 11:42 09/07/23 11:48 09/07/23 12:03 Temperature 87.4 F L 87.1 F L 87.6 F L Temperature Source Core Core Core Pulse Rate 50 L 50 L 44 L Respiratory Rate 10 L 12 20 H Respiratory Pattern Blood Pressure 107/62 107/62 123/69 H Blood Pressure Mean 77 77 87 Pulse Ox 92 95 98 Oxygen Delivery Method Nasal Cannula Nasal Cannula Bi-pap Oxygen Flow Rate (L/min) 3 3 Fraction of Inspired Oxygen (FIO2) 09/07/23 12:00 09/07/23 12:00 09/07/23 12:33 Temperature 87.6 F L 88.1 F L Temperature Source Core Core Pulse Rate 44 L 49 L 45 L Respiratory Rate 13 18 23 H Respiratory Pattern Normal Blood Pressure 123/69 H 109/55 L Blood Pressure Mean 87 73 Pulse Ox 99 98 100 Oxygen Delivery Method Bi-pap Bi-pap Oxygen Flow Rate (L/min) Fraction of Inspired Oxygen (FIO2) 50 09/07/23 12:41 09/07/23 13:12 09/07/23 13:49 Temperature 88.1 F L 88.9 F L Temperature Source Core Pulse Rate 45 L 50 L 48 L Respiratory Rate 22 H 18 13 Respiratory Pattern Normal Blood Pressure 109/55 L 99/54 L Blood Pressure Mean 73 69 Pulse Ox 100 92 99 Oxygen Delivery Method Bi-pap Oxygen Flow Rate (L/min) Fraction of Inspired Oxygen (FIO2) 35 Weight Weight: 135 kg Body Mass Index (BMI) 49.5 Physical Exam Const Constitutional Narrative: Patient had rapid respirations, she responded to verbal and painful stimuli, she was on BiPAP and could not carry out a conversation Patient is morbidly obese General Appearance: cooperative and well developed Orientation / Consciousness: awake and oriented to person HEENT normocephalic, head/scalp atraumatic, hearing grossly normal bilaterally and moist oral mucous membranes Eyes PERRL, EOMs intact bilaterally and conjunctivae normal Neck supple, no JVD, thyroid normal and no carotid bruits General: trachea midline Resp Resp Narrative: Patient has rapid shallow respirations, breath sounds are diminished bilaterally Auscultation: Negative for rales, rhonchi or wheezes Cardio regular rate, regular rhythm, S1 normal heart sound, S2 normal heart sound, no murmurs, no rub and no gallops GI normal to inspection, nondistended, normoactive bowel sounds, soft to palpation, non-tender and non-distended Extremity no clubbing, cyanosis or edema Skin no rashes or lesions noted General Skin Exam: no breakdown Neuro CN's II-XII intact bilaterally, no focal motor deficits and no sensory deficits noted Neuro Narrative: Patient is lethargic, she does awaken to verbal and painful stimulation and says a few words Sensorium / Orientation: awake Speech: speech normal Psych Psych Narrative: Patient is lethargic but does answer yes or no questions Results Lab / Micro Data 09/07/23 10:21 09/07/23 10:21 Labs: Laboratory Results - last 24 hr 09/07/23 10:21: WBC 3.2 L, RBC 3.22 L, Hgb 8.8 L, Hct 30.3 L, MCV 94.1, MCH 27.3, MCHC 29.0 L, RDW Std Deviation 56.9 H, RDW Coeff of Vlad 16.4 H, Plt Count 46 L*, MPV 12.5 H, Immature Gran % (Auto) 8.800 H, Neut % (Auto) 62.2, Lymph % (Auto) 18.1 L, [place] % (Auto) 6.9, Eos % (Auto) 3.4, Baso % (Auto) 0.6, Absolute Neuts (auto) 2.0, Absolute Lymphs (auto) 0.58 L, Nucleated RBC % 0.6, Platelet Estimate MOD DEC, RBC Morphology NORM C+C, PT 12.7, INR 1.0, APTT 47.5 H, Sodium 143, Potassium 5.8 H, Chloride 113 H, Carbon Dioxide 28.0, Anion Gap 2 L, BUN 72 H, Creatinine 3.61 H, Estim Creat Clear Calc 21.63, Est GFR (MDRD) Af Amer 16 L, Est GFR (MDRD) Non-Af 13 L, BUN/Creatinine Ratio 19.9, Glucose 99, Lactic Acid 0.4, Calcium 8.6, Total Bilirubin 0.40, AST 120 H, ALT 82 H, Alkaline Phosphatase 111, Troponin I High Sens 14, B-Natriuretic Peptide 144.1 H, Total Protein 6.7, Albumin 3.1 L, Globulin 3.6, Albumin/Globulin Ratio 0.9, Lipase 138 H, TSH 25.90 H, Free T4 0.94, Free T3 pg/dL 1.3 L 09/07/23 10:35: Ammonia 22.0 09/07/23 10:41: Urine Color Yellow, Urine Clarity Sl. Cloudy, Urine pH 5.0, Ur Specific [place] 1.025, Urine Protein 500 H, Urine Glucose (UA) 100 H, Urine Ketones Negative, Urine Occult Blood 10 H, Urine Nitrite Negative, Urine Bilirubin Negative, Urine Urobilinogen Normal, Ur Leukocyte Esterase 100 H, Urine RBC 0-5 SEEN, Urine WBC 5-10 SEEN, Ur Squamous Epith Cells 0-5 SEEN, Urine Bacteria 2+, Urine Mucus 0 SEEN, Urine Opiates Screen NEGATIVE, Urine Methadone Screen NEGATIVE, Ur Barbiturates Screen NEGATIVE, Ur Phencyclidine Scrn NEGATIVE, Ur Amphetamines Screen NEGATIVE, MDMA (Ecstasy) Screen NEGATIVE, U Benzodiazepines Scrn NEGATIVE, Urine Cocaine Screen NEGATIVE, U Cannabinoids Screen NEGATIVE, Ur Drug Screen Comment 09/07/23 12:08: POC Glucose 104 09/07/23 13:11: POC Glucose 142 H 09/07/23 14:00: POC Glucose 118 H Micro: Microbiology 09/07/23 10:33 Mucosa - Nose SARS-CoV-2, Influenza & RSV (PCR) - Final ABG Data ABG results: ABG 09/07/23 09/07/23 11:44 13:15 Specimen Type IMCHAEL ART Sample Site Not entered R Radial pH 7.14 L* Bicarbonate Actual 29.1 H Total CO2 32 Base Excess 0 O2 Saturation 98 O2 % 5.0 50.0 ABG pCO2 85.1 H* ABG pO2 144 H Madi Test Positive VBG pH 7.16 L* VBG pO2 105 H VBG HCO3 26 VBG Total CO2 29 VBG O2 Sat (Calc) 96 H VBG Base Excess -3 L POC Mix VBG pCO2 Pt Tmp 73.6 H* Respiration Rate 12 O2 Delivery Device Cannula BiPAP Vent Mode avaps Tidal Volume 450.0 Crit Call To/Read Back Yes Yes Blood Gas Notified Whom frankie david Blood Gas Notified Time 11:46:42 13:17:01 Imaging Radiology Impression Brain CT 09/07/23 10:19 IMPRESSION: Chronic involutional changes of the brain. No acute hemorrhage Electronically Signed: King Hadley MD at 12:04 EST , Chest X-Ray 09/07/23 10:19 IMPRESSION: Partial but not yet complete resolution of previously noted diffuse interstitial edema in both lung reyes. Continued follow-up recommended to ensure complete resolution Electronically Signed: King Hadley MD at 12:05 EST , Cervical Spine CT 09/07/23 10:25 IMPRESSION: Multilevel degenerative changes, as described above. No demonstrated fracture or suspicious osseous lesion. Findings are most pronounced at C5-6 and C6-7 Electronically Signed: King Hadley MD at 12:09 EST , Assessment & Plan Assessment/Plan (1) Respiratory failure with hypoxia and hypercapnia: PLAN: Plan 1. Combined respiratory failure, patient will be admitted to ICU, she will be maintained on BiPAP, and arterial blood gas will be obtained, aerosol treatments will be administered, critical care will be consulted #2 acute kidney injury-patient will be given IV fluids, labs will be monitored #3 urinary tract infection-patient will be placed on Zosyn, await cultures #4 MSSA [id number] patient will be on Zosyn, she had been on Zyvox at the long-term #5 morbid obesity-complicates care, medical course, recovery, and prognosis #6 type 2 diabetes-patient's blood sugars will be monitored, sliding scale insulin will be given as needed, patient is n.p.o. due to BiPAP Total clinical time spent by myself addressing the patient's medical issues, reviewing all of the data, and collaborating with patient's care team: 75 minutes Charges/Coding Visit Charges Inpatient E&M: 58340 Init Hosp L3
[2023-09-07] MEDS: Piperacil/Tazobactam 3.375 GM in 0.9% Normal Saline (50mL MB+) 50 ML IV ×2 (15:18→21:12)
[2023-09-07] MEDS: 0.9% Saline Lock 10 ML Syringe IV (15:58)
[2023-09-07 17:22] LABS: Allen Test Positive; Base Excess 3 mmol/L (-2 to +2); Blood Gas Specimen Type ART; Mode avaps; O2 Delivery Device BiPAP; RR 12; SITE R Radial; Time Given 14:09:35; Total Carbon Dioxide 32 mmol/L; pCO2 67.7 mmHg (35-45); pH 7.25 (7.35-7.45)
[2023-09-07] MEDS: LEVOTHYROXINE SODIUM 100 MCG VIAL IV (17:40)
[2023-09-07 17:45] LABS: Bedside Glucose 94 mg/dL (74-106)
[2023-09-07] MEDS: Pantoprazole Sodium 40 MG in 0.9% Normal Saline (100mL MB+) 100 ML 330 MG IV (21:12)
[2023-09-07] MEDS: Nystatin Powder 15gm Bottle 1 APPLIC TOPICAL (21:12)
[2023-09-08] VITALS (34 sets, daily range): BP systolic 101–141; BP diastolic 47–101; PULSE 49–74; RESP 12–26; TEMP 34.1–36.8; O2SAT 94–100; BMI 50.0
[2023-09-08 02:51] LABS: Bedside Glucose 73 mg/dL (74-106)
[2023-09-08] MEDS: Piperacil/Tazobactam 3.375 GM in 0.9% Normal Saline (50mL MB+) 50 ML IV ×2 (05:31→20:33)
[2023-09-08] MEDS: 0.9% Normal Saline (1000mL) 1,000 ML 125 ML IV (05:31)
[2023-09-08 05:39] LABS: Blood Gas Specimen Type VEN; O2 Delivery Device BiPAP; RR 12; SITE Not entered; VBG BASE EXCESS 0 mmol/L (-1.0-3.5); VBG Bicarbonate 25 mmol/L (22-26); VBG PO2 78 mmHg (25-40); VBG SO2 96 % (50-70); VBG TCO2 26 mmol/L (23-33); VBG pCO2 38.2 mmHg (41-51); VBG pH 7.42 (7.32-7.42)
[2023-09-08 05:44] LABS: Absolute Lymphocyte Count 0.58 X10^3/uL (0.83-4.51); Absolute Neutrophil Count 4.2 X10^3/uL (2.0-7.7); Basophil# 0.01 X10^3/uL; Basophil% 0.2 % (0-1); Eosinophil# 0.08 X10^3/uL; Eosinophils% 1.4 % (0-5); Hematocrit 24.9 % (37-47); Hemoglobin 7.5 g/dL (12.0-15.0); Lymphocyte # 0.58 X10^3/ul (0.83-4.51); Lymphocyte % 10.4 % (19-41); Mean Corp Hgb Conc 30.1 g/dL (32-36); Mean Corpuscular Hgb 27.7 pg (27.0-32.0); Mean Corpuscular Volume 91.9 fL (81-99); Mean Platelet Vol. 12.6 fl (6.2-12.0); Monocyte# 0.48 X10^3/uL; Monocyte% 8.6 % (0-10); NRBC Flagged by Analyzer 0.4 % (0-5); Neutrophil # 4.23 X10^3/uL (2.7-7.7); Neutrophil % 75.5 % (47-70); POSITIVE COUNT YES; POSITIVE DIFFERENTIAL YES; RBC Distribution Width CV 17.1 % (11.6-14.6); RBC Distribution Width SD 56.5 fl (35.1-43.9); Red Blood Count 2.71 M/mm3 (4.2-5.4); White Blood Count 5.6 K/mm3 (4.4-11.0)
[2023-09-08 06:04] LABS: Anion Gap 3 (5-15); BUN 76 mg/dL (7-18); BUN/Creat Ratio 18.5 RATIO (10-20); Calcium,Total 8.1 mg/dL (8.5-10.1); Chloride 119 mmol/L (98-107); EST Glomerular Filtration Rate 12 mL/min (>60); Est Glom Filt Rate - Afr Amer 14 mL/min (>60); Estimated Creatinine Clearance 18.85 ml/min; Glucose 81 mg/dL (74-106); Potassium 5.8 mmol/L (3.5-5.1); Sodium Level 149 mmol/L (136-145)
[2023-09-08 06:11] LABS: Differential Indicated SCAN CRITERIA MET; Platelet Count 47 K/mm3 (150-450)
[2023-09-08] MEDS: Nystatin Powder 15gm Bottle 1 APPLIC TOPICAL ×3 (06:54→20:33)
--- NOTE | 2023-09-08 07:25 | CPS ---
Patient found on Avaps/Bipap mask with green bile-like vomit in mask and on face, pillow and gown. Mask removed and placed on nasal cannula. RN alerted.
[2023-09-08] MEDS: 0.45% Normal Saline 1,000 ML 75 ML IV (08:10)
[2023-09-08 08:24] LABS: Phosphorus 5.2 mg/dL (2.5-4.9)
[2023-09-08] MEDS: CHLORHEXIDINE GLUC 2% CLOTH 1 EACH TOWELETTE TOPICAL (09:25)
[2023-09-08] MEDS: LEVOTHYROXINE SODIUM 100 MCG VIAL IV (09:25)
[2023-09-08] MEDS: Pantoprazole Sodium 40 MG in 0.9% Normal Saline (100mL MB+) 100 ML 330 MG IV ×2 (09:27→20:32)
[2023-09-08 10:01] LABS: Allen Test Positive; Base Excess -1 mmol/L (-2 to +2); Bicarbonate 25.7 mmol/L (22-26); Blood Gas Specimen Type ART; Mode Not entered; O2 Delivery Device Cannula; PO2 106 mmHG (75-100); SITE R Radial; SO2 97 % (95-99); Total Carbon Dioxide 27 mmol/L; pCO2 52.6 mmHg (35-45)
--- NOTE | 2023-09-08 10:03 | EX.PCM.CONCC ---
Assessment & Plan Assessment/Plan (1) Respiratory failure with hypoxia and hypercapnia: PLAN: Plan RECOMMENDATIONS: 1. Continue AVAPS therapy as ordered with sleep. 2. Supplemental oxygen to maintain saturations at or above 90%. 3. Empiric antimicrobials, pending finalized infectious workup. 4. Nephrology consultation pending. 5. N.p.o. status for now. 6. Obtain follow-up arterial blood gas. IMPRESSIONS: 1. Acute on chronic combined respiratory failure Once again appears secondary to noncompliance with prescribed PAP therapy. The patient may have an element of alveolar hypoventilation secondary to obesity coupled with known obstructive sleep apnea, for which the patient has been noncompliant with the use of PAP therapy. On several occasions, the patient has been referred to the pulmonary office for further workup and management of her sleep apnea, but has failed to follow-up. She utilizes 2 L/min of supplemental oxygen throughout the day and 4 L/min nightly. For now, recommend continuing AVAPS therapy with naps and nightly. Will obtain arterial blood gas this morning. The patient will be kept n.p.o. for now, pending improvement in her mental status. 2. Encephalopathy Most likely metabolic in nature with CO2 retention and uremia contributing. In addition, an underlying UTI may also be yet another contributing etiology. The patient is being maintained on appropriate antibiotics for now. Continue supportive care with PAP therapy. Nephrology consultation is currently pending. Although TSH was elevated, free T4 was normal. 3. Anemia The patient has a history of recurrent upper GI bleeding secondary to gastric ulcer. Continue to monitor H&H daily and transfuse if hemoglobin drops below 7 g/dL. Continue twice daily PPI therapy. 4. Morbid obesity/medical noncompliance/hypertension/diabetes mellitus/hypothyroidism/chronic kidney disease/GERD Complicates care, management, recovery and prognosis. Continue home medications as indicated. The patient's noncompliance with prescribed medical therapy is clearly leading to recurrent hospitalizations. This note was generated with [employer] dictation software. It may contain incorrect words, spelling, and punctuation that were not noted in checking the note before signing. HPI Consult Data Date of Consult: 09/08/23 HPI Narrative Reason for Consultation: Chronic combined respiratory failure HPI Narrative: The patient is a 63-year-old female, well-known from prior hospitalizations, who presented to the emergency department on September 07 from [facility] with increasing lethargy. The patient was just discharged from the hospital earlier this month after being hospitalized with acute on chronic combined respiratory failure and staphylococcal bacteremia/gram-negative UTI. The patient has a known history of outpatient noncompliance with prescribed PAP therapy. She has chronic hypoxemic respiratory failure with a baseline oxygen requirement of 2 L/min throughout the day and 4 L/min nightly. The patient was supposed to be utilizing BiPAP therapy at her nursing facility, but was apparently refusing the aforementioned therapy. Her medical history is also significant for hypertension, diabetes mellitus, hypothyroidism, chronic kidney disease, GERD and hyperlipidemia. It should be noted that from a pulmonary perspective, the patient was scheduled to follow-up in our office on July 24. However, she no showed for her appointment. On presentation to the emergency department, the patient was documented to have a temperature of 86.6 ?F. She was also bradycardic but otherwise hemodynamically stable and maintaining appropriate oxygen saturations on 2 L/min via nasal cannula. She was pancytopenic with a hemoglobin of 8.8 g/dL and platelet count of 46,000. Her initial ABG demonstrated a pH of 7.14 with a pCO2 of 85 and pO2 of 144. Chemistry profile was notable for a potassium of 5.8, chloride of 113 and creatinine of 3.61. TSH was elevated at 25 with a normal free T4. Urine analysis was positive for leukocyte esterase and 2+ urine bacteria. Toxicology screen was negative. CT head revealed chronic involutional changes of the brain. Chest x-ray demonstrated findings concerning for interstitial edema. The patient was placed on AVAPS therapy and started on antimicrobials. She was subsequently admitted to the medical intensive care unit for further management. [facility] Medical History (HFpEF) heart failure with preserved ejection fraction GASTON (acute kidney injury) Anemia Anxiety Anxiety and depression Chest pain Chronic acquired lymphedema Chronic anemia Chronic kidney disease Chronic kidney disease CKD (chronic kidney disease), stage III Congestive heart failure COPD (chronic obstructive pulmonary disease) CPAP (continuous positive airway pressure) dependence Current use of insulin Diabetes Diabetes mellitus with diabetic polyneuropathy Diabetes mellitus, type 2 Gastroparesis History of diabetes mellitus History of fever History of renal insufficiency History of stress test HLD (hyperlipidemia) HTN (hypertension) Hypothyroidism Hypoxia Irregular heartbeat Lower extremity edema Malaise Morbid obesity On home oxygen therapy SACHIN (obstructive sleep apnea) Pleural effusion, left Pulmonary edema Restless legs Retinal hemorrhage Sleep apnea Home Medications atorvastatin 10 mg tablet 10 mg PO DAILY cholesterol 09/24/22 [History Last Taken 04/13/23] escitalopram oxalate 10 mg tablet 10 mg PO DAILY anxiety 09/24/22 [History Last Taken 04/13/23] fenofibrate nanocrystallized 48 mg tablet (Tricor) 48 mg PO DAILY cholesterol 09/24/22 [History Last Taken 04/13/23] gabapentin 100 mg capsule 200 mg PO BID PAIN 03/05/23 [History Last Taken 04/13/23] levothyroxine 150 mcg tablet 150 mcg PO DAILY@0600 THYROID 03/05/23 [History Last Taken Unknown] ropinirole 4 mg tablet 4 mg PO QHS restless legs 03/05/23 [History Last Taken 05/01/23] dulaglutide 0.75 mg/0.5 mL subcutaneous pen injector (Trulicity) 0.75 mg subcut WE DIABETES 04/14/23 [History Last Taken 08/15/23] gabapentin 400 mg capsule 400 mg PO QHS PAIN 04/14/23 [History Last Taken 04/13/23] omega 2-sie-sjs-fish oil 300 mg-1,000 mg capsule (Fish Oil) 1 cap PO BID VITAMIN 04/14/23 [History Last Taken 04/13/23] pen needle, diabetic 31 gauge x 1/4 (Easy Touch) 04/14/23 [History Last Taken Unknown] pantoprazole 40 mg tablet,delayed release 40 mg PO BID #60 tabs 05/08/23 [Rx Last Taken Unknown] sucralfate 1 gram tablet (Carafate) 1 g PO BID #60 tabs 05/08/23 [Rx Last Taken Unknown] acetaminophen 325 mg tablet 650 mg PO Q6H PRN pain 08/26/23 [History Last Taken Unknown] difluprednate 0.05 % eye drops 1 drp ophthalmic (eye) 4X/DAY 08/26/23 [History Last Taken Unknown] nystatin 100,000 unit/gram topical powder (Nystop) 1 applic topical BID 08/26/23 [History Last Taken Unknown] furosemide 40 mg tablet 40 mg PO DAILY #0 tabs 09/01/23 [Rx Last Taken Unknown] insulin glargine-yfgn 100 unit/mL (3 mL) subcutaneous pen 13 unit (0.13 mL) subcut QHS #0 mL 09/01/23 [Rx Last Taken Unknown] insulin lispro 100 unit/mL subcutaneous pen (Humalog KwikPen (U-100) Insulin) 10 unit (0.1 mL) subcut TIDAC #0 mL 09/01/23 [Rx Last Taken Unknown] linezolid 600 mg tablet 600 mg PO Q12H 10 days #20 tabs 09/01/23 [Rx Last Taken Unknown] artificial tears(hypromellose) 0.3 % eye gel 1 drp EACH EYE Q2H PRN dry eye(s) 09/07/23 [History Last Taken Unknown] Allergy/AdvReac Type Severity Reaction Status Date / Time No Known Allergies Allergy Verified 07/14/23 18:45 Family History Mother Heart disease Hypertension Diabetes Father Prostate cancer Surgical History H/O cataract removal with insertion of prosthetic lens History of cholecystectomy History of surgery on lower extremity Social History housing: [facility] Smoking Status: Never smoker alcohol intake: never substance use type: does not use ROS Review of Systems ROS Unobtainable: due to mental status Physical Exam Const Constitutional Narrative: Lethargic. Audibly moaning. HEENT normocephalic and head/scalp atraumatic Eyes PERRL and EOMs intact bilaterally Neck supple General: trachea midline Chest inspection of chest normal Resp normal respiratory effort Auscultation: diminished lung sounds; Negative for rales, rhonchi or wheezes Cardio regular rate and regular rhythm GI normal to inspection, nondistended, normoactive bowel sounds Extremity no clubbing, cyanosis or edema Skin no rashes or lesions noted Neuro Neuro Narrative: Responsive to painful stimulation but will not answer questions. Psych Mood & Affect: flat affect Lab / Micro Data 09/08/23 05:30 09/08/23 05:30 Labs: Laboratory Results - last 24 hr 09/07/23 10:21: WBC 3.2 L, RBC 3.22 L, Hgb 8.8 L, Hct 30.3 L, MCV 94.1, MCH 27.3, MCHC 29.0 L, RDW Std Deviation 56.9 H, RDW Coeff of Vlad 16.4 H, Plt Count 46 L*, MPV 12.5 H, Immature Gran % (Auto) 8.800 H, Neut % (Auto) 62.2, Lymph % (Auto) 18.1 L, [place] % (Auto) 6.9, Eos % (Auto) 3.4, Baso % (Auto) 0.6, Absolute Neuts (auto) 2.0, Absolute Lymphs (auto) 0.58 L, Nucleated RBC % 0.6, Platelet Estimate MOD DEC, RBC Morphology NORM C+C, PT 12.7, INR 1.0, APTT 47.5 H, Sodium 143, Potassium 5.8 H, Chloride 113 H, Carbon Dioxide 28.0, Anion Gap 2 L, BUN 72 H, Creatinine 3.61 H, Estim Creat Clear Calc 21.63, Est GFR (MDRD) Af Amer 16 L, Est GFR (MDRD) Non-Af 13 L, BUN/Creatinine Ratio 19.9, Glucose 99, Lactic Acid 0.4, Calcium 8.6, Total Bilirubin 0.40, AST 120 H, ALT 82 H, Alkaline Phosphatase 111, Troponin I High Sens 14, B-Natriuretic Peptide 144.1 H, Total Protein 6.7, Albumin 3.1 L, Globulin 3.6, Albumin/Globulin Ratio 0.9, Lipase 138 H, TSH 25.90 H, Free T4 0.94, Free T3 pg/dL 1.3 L 09/07/23 10:35: Ammonia 22.0 09/07/23 10:41: Troponin I High Sens Cancelled, Urine Color Yellow, Urine Clarity Sl. Cloudy, Urine pH 5.0, Ur Specific [place] 1.025, Urine Protein 500 H, Urine Glucose (UA) 100 H, Urine Ketones Negative, Urine Occult Blood 10 H, Urine Nitrite Negative, Urine Bilirubin Negative, Urine Urobilinogen Normal, Ur Leukocyte Esterase 100 H, Urine RBC 0-5 SEEN, Urine WBC 5-10 SEEN, Ur Squamous Epith Cells 0-5 SEEN, Urine Bacteria 2+, Urine Mucus 0 SEEN, Urine Opiates Screen NEGATIVE, Urine Methadone Screen NEGATIVE, Ur Barbiturates Screen NEGATIVE, Ur Phencyclidine Scrn NEGATIVE, Ur Amphetamines Screen NEGATIVE, MDMA (Ecstasy) Screen NEGATIVE, U Benzodiazepines Scrn NEGATIVE, Urine Cocaine Screen NEGATIVE, U Cannabinoids Screen NEGATIVE, Ur Drug Screen Comment 09/07/23 12:08: POC Glucose 104 09/07/23 13:11: POC Glucose 142 H 09/07/23 14:00: POC Glucose 118 H 09/07/23 17:27: POC Glucose 94 09/08/23 02:29: POC Glucose 73 L 09/08/23 05:30: WBC 5.6, RBC 2.71 L, Hgb 7.5 L, Hct 24.9 L, MCV 91.9, MCH 27.7, MCHC 30.1 L, RDW Std Deviation 56.5 H, RDW Coeff of Vlad 17.1 H, Plt Count 47 L*, MPV 12.6 H, Immature Gran % (Auto) 3.900 H, Neut % (Auto) 75.5 H, Lymph % (Auto) 10.4 L, [place] % (Auto) 8.6, Eos % (Auto) 1.4, Baso % (Auto) 0.2, Absolute Neuts (auto) 4.2, Absolute Lymphs (auto) 0.58 L, Nucleated RBC % 0.4, Sodium 149 H, Potassium 5.8 H, Chloride 119 H, Carbon Dioxide 27.0, Anion Gap 3 L, BUN 76 H, Creatinine 4.10 H, Estim Creat Clear Calc 18.85, Est GFR (MDRD) Af Amer 14 L, Est GFR (MDRD) Non-Af 12 L, BUN/Creatinine Ratio 18.5, Glucose 81, Calcium 8.1 L, Phosphorus 5.2 H, Magnesium 2.0 Micro: Microbiology 09/07/23 10:33 Mucosa - Nose SARS-CoV-2, Influenza & RSV (PCR) - Final ABG Data ABG results: ABG 09/07/23 09/07/23 09/07/23 11:44 13:15 14:07 Specimen Type MICHAEL ART ART Sample Site Not entered R Radial R Radial pH 7.14 L* 7.25 L Bicarbonate Actual 29.1 H 30.0 H Total CO2 32 32 Base Excess 0 3 H O2 Saturation 98 TNP O2 % 5.0 50.0 35.0 ABG pCO2 85.1 H* 67.7 H* ABG pO2 144 H TNP Madi Test Positive Positive VBG pH 7.16 L* VBG pO2 105 H VBG HCO3 26 VBG Total CO2 29 VBG O2 Sat (Calc) 96 H VBG Base Excess -3 L POC Mix VBG pCO2 Pt Tmp 73.6 H* Respiration Rate 12 12 O2 Delivery Device Cannula BiPAP BiPAP Vent Mode avaps avaps Tidal Volume 450.0 500.0 Crit Call To/Read Back Yes Yes Yes Blood Gas Notified Whom frankie david kenroyyuni Blood Gas Notified Time 11:46:42 13:17:01 14:09:35 Clinical Comments 09/08/23 09/08/23 05:34 09:56 Specimen Type MICHAEL ART Sample Site Not entered R Radial pH 7.30 L Bicarbonate Actual 25.7 Total CO2 27 Base Excess -1 O2 Saturation 97 O2 % 30.0 3.0 ABG pCO2 52.6 H ABG pO2 106 H Madi Test Positive VBG pH 7.42 VBG pO2 78 H VBG HCO3 25 VBG Total CO2 26 VBG O2 Sat (Calc) 96 H VBG Base Excess 0 POC Mix VBG pCO2 Pt Tmp 38.2 L Respiration Rate 12 O2 Delivery Device BiPAP Cannula Vent Mode Not entered Tidal Volume Crit Call To/Read Back Blood Gas Notified Whom Blood Gas Notified Time Clinical Comments Imaging Radiology Impression Brain CT 09/07/23 10:19 IMPRESSION: Chronic involutional changes of the brain. No acute hemorrhage Electronically Signed: King Hadley MD at 12:04 EST , Chest X-Ray 09/07/23 10:19 IMPRESSION: Partial but not yet complete resolution of previously noted diffuse interstitial edema in both lung reyes. Continued follow-up recommended to ensure complete resolution Electronically Signed: King Hadley MD at 12:05 EST , Cervical Spine CT 09/07/23 10:25 IMPRESSION: Multilevel degenerative changes, as described above. No demonstrated fracture or suspicious osseous lesion. Findings are most pronounced at C5-6 and C6-7 Electronically Signed: King Hadley MD at 12:09 EST , Charges/Coding Visit Charges Inpatient E&M: 93938 Init Hosp L3
[2023-09-08] MEDS: Sodium Polystyrene Sulfonate 15 GM/60 ML UDC 30 GM RC (10:14)
--- NOTE | 2023-09-08 10:44 | PN_ITS ---
Subjective Subjective Patient seen and examined. She was admitted with a complaint of shortness of breath and is being managed for acute on chronic respiratory failure. She was hypercapnic also and was placed on BIPAP. She threw up into her BIPAP today. She was transitioned to 3L of oxygen. She is quite confused and just muttering. Unab le to do review of systems. Objective Data Objective Data Vital Signs: Vital Signs Temp Pulse Resp BP Pulse Ox O2 Del Method O2 Flow Rate 97.3 F L 65 23 H 117/56 L 98 Nasal Cannula 3 09/08/23 10:00 09/08/23 10:02 09/08/23 10:02 09/08/23 10:00 09/08/23 10:02 09/08/23 10:00 09/08/23 10:00 FiO2 30 09/08/23 10:02 Oxygen Flow Rate (L/min) 3 Oxygen Delivery Method Nasal Cannula Weight: 300 lb 4.313 oz Body Mass Index (BMI) 50.0 Intake & Output: Intake and Output for Last 24 Hours 09/06/23 09/07/23 09/08/23 23:59 23:59 23:59 Intake Total 1760.05 / 1760.05 1455.83 / 1455.83 Output Total 425 / 425 210 / 210 Balance 1335.05 / 1335.05 1245.83 / 1245.83 Lab / Micro Data 09/08/23 05:30 09/08/23 05:30 Labs: Laboratory Results - last 24 hr 09/07/23 10:21: WBC 3.2 L, RBC 3.22 L, Hgb 8.8 L, Hct 30.3 L, MCV 94.1, MCH 27.3, MCHC 29.0 L, RDW Std Deviation 56.9 H, RDW Coeff of Vlad 16.4 H, Plt Count 46 L*, MPV 12.5 H, Immature Gran % (Auto) 8.800 H, Neut % (Auto) 62.2, Lymph % (Auto) 18.1 L, [place] % (Auto) 6.9, Eos % (Auto) 3.4, Baso % (Auto) 0.6, Absolute Neuts (auto) 2.0, Absolute Lymphs (auto) 0.58 L, Nucleated RBC % 0.6, Platelet Estimate MOD DEC, RBC Morphology NORM C+C, PT 12.7, INR 1.0, APTT 47.5 H, Sodium 143, Potassium 5.8 H, Chloride 113 H, Carbon Dioxide 28.0, Anion Gap 2 L, BUN 72 H, Creatinine 3.61 H, Estim Creat Clear Calc 21.63, Est GFR (MDRD) Af Amer 16 L, Est GFR (MDRD) Non-Af 13 L, BUN/Creatinine Ratio 19.9, Glucose 99, Lactic Acid 0.4, Calcium 8.6, Total Bilirubin 0.40, AST 120 H, ALT 82 H, Alkaline Phosphatase 111, Troponin I High Sens 14, B-Natriuretic Peptide 144.1 H, Total Protein 6.7, Albumin 3.1 L, Globulin 3.6, Albumin/Globulin Ratio 0.9, Lipase 138 H, TSH 25.90 H, Free T4 0.94, Free T3 pg/dL 1.3 L 09/07/23 10:35: Ammonia 22.0 09/07/23 10:41: Troponin I High Sens Cancelled, Urine Color Yellow, Urine Clarity Sl. Cloudy, Urine pH 5.0, Ur Specific [place] 1.025, Urine Protein 500 H , Urine Glucose (UA) 100 H, Urine Ketones Negative, Urine Occult Blood 10 H, Urine Nitrite Negative, Urine Bilirubin Negative, Urine Urobilinogen Normal, Ur Leukocyte Esterase 100 H, Urine RBC 0-5 SEEN, Urine WBC 5-10 SEEN, Ur Squamous Epith Cells 0-5 SEEN, Urine Bacteria 2+, Urine Mucus 0 SEEN, Urine Opiates Screen NEGATIVE, Urine Methadone Screen NEGATIVE, Ur Barbiturates Screen NEGATIVE, Ur Phencyclidine Scrn NEGATIVE, Ur Amphetamines Screen NEGATIVE, MDMA (Ecstasy) Screen NEGATIVE, U Benzodiazepines Scrn NEGATIVE, Urine Cocaine Screen NEGATIVE, U Cannabinoids Screen NEGATIVE, Ur Drug Screen Comment 09/07/23 12:08: POC Glucose 104 09/07/23 13:11: POC Glucose 142 H 09/07/23 14:00: POC Glucose 118 H 09/07/23 17:27: POC Glucose 94 09/08/23 02:29: POC Glucose 73 L 09/08/23 05:30: WBC 5.6, RBC 2.71 L, Hgb 7.5 L, Hct 24.9 L, MCV 91.9, MCH 27.7, MCHC 30.1 L, RDW Std Deviation 56.5 H, RDW Coeff of Vlad 17.1 H, Plt Count 47 L*, MPV 12.6 H, Immature Gran % (Auto) 3.900 H, Neut % (Auto) 75.5 H, Lymph % (Auto) 10.4 L, [place] % (Auto) 8.6, Eos % (Auto) 1.4, Baso % (Auto) 0.2, Absolute Neuts (auto) 4.2, Absolute Lymphs (auto) 0.58 L, Nucleated RBC % 0.4, Sodium 149 H, Potassium 5.8 H, Chloride 119 H, Carbon Dioxide 27.0, Anion Gap 3 L, BUN 76 H, Creatinine 4.10 H, Estim Creat Clear Calc 18.85, Est GFR (MDRD) Af Amer 14 L, Est GFR (MDRD) Non-Af 12 L, BUN/Creatinine Ratio 18.5, Glucose 81, Calcium 8.1 L , Phosphorus 5.2 H, Magnesium 2.0 Micro: Microbiology 09/07/23 10:41 Urine Catheter - Beach Urine Culture - Preliminary Culture exhibits no growth. 09/07/23 10:33 Mucosa - Nose SARS-CoV-2, Influenza & RSV (PCR) - Final ABG Data ABG results: ABG 09/07/23 09/07/23 09/07/23 11:44 13:15 14:07 Specimen Type MICHAEL ART ART Sample Site Not entered R Radial R Radial pH 7.14 L* 7.25 L Bicarbonate Actual 29.1 H 30.0 H Total CO2 32 32 Base Excess 0 3 H O2 Saturation 98 TNP O2 % 5.0 50.0 35.0 ABG pCO2 85.1 H* 67.7 H* ABG pO2 144 H TNP Madi Test Positive Positive VBG pH 7.16 L* VBG pO2 105 H VBG HCO3 26 VBG Total CO2 29 VBG O2 Sat (Calc) 96 H VBG Base Excess -3 L POC Mix VBG pCO2 Pt Tmp 73.6 H* Respiration Rate 12 12 O2 Delivery Device Cannula BiPAP BiPAP Vent Mode avaps avaps Tidal Volume 450.0 500.0 Crit Call To/Read Back Yes Yes Yes Blood Gas Notified Whom frankie mckeon Blood Gas Notified Time 11:46:42 13:17:01 14:09:35 Clinical Comments 09/08/23 09/08/23 05:34 09:56 Specimen Type MIHCAEL ART Sample Site Not entered R Radial pH 7.30 L Bicarbonate Actual 25.7 Total CO2 27 Base Excess -1 O2 Saturation 97 O2 % 30.0 3.0 ABG pCO2 52.6 H ABG pO2 106 H Madi Test Positive VBG pH 7.42 VBG pO2 78 H VBG HCO3 25 VBG Total CO2 26 VBG O2 Sat (Calc) 96 H VBG Base Excess 0 POC Mix VBG pCO2 Pt Tmp 38.2 L Respiration Rate 12 O2 Delivery Device BiPAP Cannula Vent Mode Not entered Tidal Volume Crit Call To/Read Back Blood Gas Notified Whom Blood Gas Notified Time Clinical Comments Radiography Diagnostic Testing: Radiology Impression Brain CT 09/07/23 10:19 IMPRESSION: Chronic involutional changes of the brain. No acute hemorrhage Electronically Signed: King Hadley MD at 12:04 EST Reading Location ID and State: [facility] / [place] , Service support , Chest X-Ray 09/07/23 10:19 IMPRESSION: Partial but not yet complete resolution of previously noted diffuse interstitial edema in both lung reyes. Continued follow-up recommended to ensure complete resolution Electronically Signed: King Hadley MD at 12:05 EST , Cervical Spine CT 09/07/23 10:25 IMPRESSION: Multilevel degenerative changes, as described above. No demonstrated fracture or suspicious osseous lesion. Findings are most pronounced at C5-6 and C6-7 Electronically Signed: King Hadley MD at 12:09 EST , Physical Exam Const alert Constitutional Narrative: confused, lethargic HEENT normocephalic and head/scalp atraumatic HEENT Narrative: tongue and lips appear mildly swollen Eyes PERRL and EOMs intact bilaterally Neck no lymphadenopathy and supple Lymph Lymphatic: no lymphadenopathy noted Resp Resp Narrative: mildly diminished breath sounds bilaterally, no wheezes or crackles. On 3L of oxygen. Cardio regular rate, regular rhythm, S1 normal heart sound, S2 normal heart sound and no murmurs GI normal to inspection, nondistended, normoactive bowel sounds, soft to palpation, non-tender and non-distended GI Narrative: has mild erythema in the intertriginous folds. Extremity normal capillary refill and no clubbing, cyanosis or edema Skin General Skin Exam: no breakdown Neuro CN's II-XII intact bilaterally Neuro Narrative: confused, lethargic, restless. Motor Exam: general weakness Assessment & Plan Assessment/Plan (1) Respiratory failure with hypoxia and hypercapnia: (2) MSSA bacteremia: PLAN: Plan #Acute on chronic hypoxic and hypercapnic respiratory failure * threw up in her BIPAP so now off of it. Now on 3L of oxygen by nasal canula * patient is quite restless and lethargic. Lips and tongue mildly swollen, but she has no stridor or wheezinig * CT brain on admission showed no acute intracranial pathology * urine tox was negative * ABG done showed elevated CO2, and PCO2 is 52 today. * critical care consulted * breathing treatment with bronchodilators * titrate oxygen to maintain sats >90% * on empiric antibiotics * blood cultures ordered * #GASTON on CKD with hyperkalemia * Cr has trended up to 4. * Baseline Cr * being gently hydrated with iVF * nephrology consulted. await recs * insert beach catheter. * Potassium is 5.8 and creatinine is 4.1. Will give rectal Kayexalate. Fluid switched to 0.45 normal saline due to hypernatremia. * #UTI * urinalysis showed evidence of UTI * on IV zosyn. Urine cultures pending * #MSSA bacteremia: hd been on zyvox in hr SNF. Now on IV zosyn. #Thrombocytopenia: * platelets are 47.Platelets have been low since the beginning of this month. * will monitor, and if it drops any lower, consider hematology consult * In light of patient's altered mental status and confusion, low platelets and kidney impairment, TTP is a possibility. WIll ask hematology lab to review slide for schistocytes. * platelets were 46 yesterday, and 47 today, so it hasnt really dropped further. She was also discharged on zyvox which can cause thrombocytopenia and will explain it. * IF platelets drop further, will get hematology consult. #Anemia: hb is 7.5. Has chronic anemia. Will monitor #Hypernatremia: sodium is 149. Likely due to IVF hydration. switch fluids to 0.45 NS. #Super morbid obesity: BMI is 50. Complicates acute care, expected recovery and prognosis. #TYpe 2 diabetes mellitus: on ISS. Accuchecks ACHS. #Hypothyroidism: on synthroid. TSH elevated at 25,but it appears her TSH has been chronically elevated and is now even lower than previously. On IV synthroid DVT prophylaxis; SCDs. Charges/Coding Visit Charges Inpatient E&M: 98269 Subs Hosp L3
[2023-09-08 12:21] LABS: Bedside Glucose 81 mg/dL (74-106)
--- NOTE | 2023-09-08 15:45 | PCM.CONS.R ---
Assessment & Plan Assessment/Plan (1) GASTON (acute kidney injury): PLAN: Plan Acute renal failure. History of CKD stage on the day of discharge, her creatinine was close to baseline. Recent diagnosis proteinuria, nephrotic range. Immunofixation negative. Other serologies negative. Etiology of GASTON unclear. Currently she is markedly confused. On review of chart, her platelet counts have been decreasing send LDH and haptoglobin [place] catheter indwelling Hyperkalemia. Borderline. No EKG changes Discussed with hospitalist Discussed with family at bedside may need HD temporarily if no improvement HPI Consult Data Date of Consult: 09/08/23 HPI Narrative Reason for Consultation: Acute renal failure HPI Narrative: TOBIN BIGGS, is a 63 F who presents to the hospital with altered mental status. She was recently discharged from the hospital after an admission for fluid overload, respiratory failure. She was also found to have MSSA bacteremia. Discharged on Zyvox. As per family at bedside, she was okay for PICC and started getting confused for the couple of days. Apparently she took a fall and came into the ER. CT head was negative. Currently on BiPAP, extremely confused. This is new compared to how she was when she left the hospital. Beach catheter indwelling, some urine output. Review of systems could not be obtained [facility] Medical History (Updated 09/08/23 @ 15:[address] Jose Luis Lechuga MD) (HFpEF) heart failure with preserved ejection fraction GASTON (acute kidney injury) Anemia Anxiety Anxiety and depression Chest pain Chronic acquired lymphedema Chronic anemia Chronic kidney disease Chronic kidney disease CKD (chronic kidney disease), stage III Congestive heart failure COPD (chronic obstructive pulmonary disease) CPAP (continuous positive airway pressure) dependence Current use of insulin Diabetes Diabetes mellitus with diabetic polyneuropathy Diabetes mellitus, type 2 Gastroparesis History of diabetes mellitus History of fever History of renal insufficiency History of stress test HLD (hyperlipidemia) HTN (hypertension) Hypothyroidism Hypoxia Irregular heartbeat Lower extremity edema Malaise Morbid obesity On home oxygen therapy SACHIN (obstructive sleep apnea) Pleural effusion, left Pulmonary edema Restless legs Retinal hemorrhage Sleep apnea Home Medications atorvastatin 10 mg tablet 10 mg PO DAILY cholesterol 09/24/22 [History Last Taken 04/13/23] escitalopram oxalate 10 mg tablet 10 mg PO DAILY anxiety 09/24/22 [History Last Taken 04/13/23] fenofibrate nanocrystallized 48 mg tablet (Tricor) 48 mg PO DAILY cholesterol 09/24/22 [History Last Taken 04/13/23] gabapentin 100 mg capsule 200 mg PO BID PAIN 03/05/23 [History Last Taken 04/13/23] levothyroxine 150 mcg tablet 150 mcg PO DAILY@0600 THYROID 03/05/23 [History Last Taken Unknown] ropinirole 4 mg tablet 4 mg PO QHS restless legs 03/05/23 [History Last Taken 05/01/23] dulaglutide 0.75 mg/0.5 mL subcutaneous pen injector (Trulicity) 0.75 mg subcut WE DIABETES 04/14/23 [History Last Taken 08/15/23] gabapentin 400 mg capsule 400 mg PO QHS PAIN 04/14/23 [History Last Taken 04/13/23] omega 9-wmz-jii-fish oil 300 mg-1,000 mg capsule (Fish Oil) 1 cap PO BID VITAMIN 04/14/23 [History Last Taken 04/13/23] pen needle, diabetic 31 gauge x 1/4 (Easy Touch) 04/14/23 [History Last Taken Unknown] pantoprazole 40 mg tablet,delayed release 40 mg PO BID #60 tabs 05/08/23 [Rx Last Taken Unknown] sucralfate 1 gram tablet (Carafate) 1 g PO BID #60 tabs 05/08/23 [Rx Last Taken Unknown] acetaminophen 325 mg tablet 650 mg PO Q6H PRN pain 08/26/23 [History Last Taken Unknown] difluprednate 0.05 % eye drops 1 drp ophthalmic (eye) 4X/DAY 08/26/23 [History Last Taken Unknown] nystatin 100,000 unit/gram topical powder (Nystop) 1 applic topical BID 08/26/23 [History Last Taken Unknown] furosemide 40 mg tablet 40 mg PO DAILY #0 tabs 09/01/23 [Rx Last Taken Unknown] insulin glargine-yfgn 100 unit/mL (3 mL) subcutaneous pen 13 unit (0.13 mL) subcut QHS #0 mL 09/01/23 [Rx Last Taken Unknown] insulin lispro 100 unit/mL subcutaneous pen (Humalog KwikPen (U-100) Insulin) 10 unit (0.1 mL) subcut TIDAC #0 mL 09/01/23 [Rx Last Taken Unknown] linezolid 600 mg tablet 600 mg PO Q12H 10 days #20 tabs 09/01/23 [Rx Last Taken Unknown] artificial tears(hypromellose) 0.3 % eye gel 1 drp EACH EYE Q2H PRN dry eye(s) 09/07/23 [History Last Taken Unknown] Allergy/AdvReac Type Severity Reaction Status Date / Time No Known Allergies Allergy Verified 07/14/23 18:45 Family History Mother Heart disease Hypertension Diabetes Father Prostate cancer Surgical History H/O cataract removal with insertion of prosthetic lens History of cholecystectomy History of surgery on lower extremity Social History housing: senior care Smoking Status: Never smoker alcohol intake: never substance use type: does not use Physical Exam Narrative Confused no obvious distress no pallor no icterus no JVD s1s2 no murmurs lungs clear abdomen soft no organomegaly no edema no cyanosis beach + Lab / Micro Data 09/08/23 05:30 09/08/23 05:30 Labs: Laboratory Results - last 24 hr 09/07/23 10:41: Troponin I High Sens Cancelled 09/07/23 17:27: POC Glucose 94 09/08/23 02:29: POC Glucose 73 L 09/08/23 05:30: WBC 5.6, RBC 2.71 L, Hgb 7.5 L, Hct 24.9 L, MCV 91.9, MCH 27.7, MCHC 30.1 L, RDW Std Deviation 56.5 H, RDW Coeff of Vlad 17.1 H, Plt Count 47 L*, MPV 12.6 H, Immature Gran % (Auto) 3.900 H, Neut % (Auto) 75.5 H, Lymph % (Auto) 10.4 L, [place] % (Auto) 8.6, Eos % (Auto) 1.4, Baso % (Auto) 0.2, Absolute Neuts (auto) 4.2, Absolute Lymphs (auto) 0.58 L, Nucleated RBC % 0.4, Sodium 149 H, Potassium 5.8 H, Chloride 119 H, Carbon Dioxide 27.0, Anion Gap 3 L, BUN 76 H, Creatinine 4.10 H, Estim Creat Clear Calc 18.85, Est GFR (MDRD) Af Amer 14 L, Est GFR (MDRD) Non-Af 12 L, BUN/Creatinine Ratio 18.5, Glucose 81, Calcium 8.1 L, Phosphorus 5.2 H, Magnesium 2.0 09/08/23 12:04: POC Glucose 81 Micro: Microbiology 09/07/23 10:41 Urine Catheter - [place] Urine Culture - Preliminary Culture exhibits no growth. 09/07/23 10:33 Mucosa - Nose SARS-CoV-2, Influenza & RSV (PCR) - Final ABG Data ABG results: ABG 09/07/23 09/08/23 09/08/23 14:07 05:34 09:56 Specimen Type ART MICHAEL ART Sample Site R Radial Not entered R Radial pH 7.25 L 7.30 L Bicarbonate Actual 30.0 H 25.7 Total CO2 32 27 Base Excess 3 H -1 O2 Saturation TNP 97 O2 % 35.0 30.0 3.0 ABG pCO2 67.7 H* 52.6 H ABG pO2 TNP 106 H Madi Test Positive Positive VBG pH 7.42 VBG pO2 78 H VBG HCO3 25 VBG Total CO2 26 VBG O2 Sat (Calc) 96 H VBG Base Excess 0 POC Mix VBG pCO2 Pt Tmp 38.2 L Respiration Rate 12 12 O2 Delivery Device BiPAP BiPAP Cannula Vent Mode avaps Not entered Tidal Volume 500.0 Crit Call To/Read Back Yes Blood Gas Notified Whom tereletsky Blood Gas Notified Time 14:09:35 Clinical Comments
[2023-09-08 17:08] LABS: LDH 229 U/L (84-246)
[2023-09-08 17:56] LABS: Bedside Glucose 63 mg/dL (74-106)
[2023-09-08] MEDS: 0.9% Normal Saline (250mL Bag) 250 ML 15 ML IV (18:04)
[2023-09-08] MEDS: Dextrose 5%-Water (1000mL Bag) 1,000 ML 75 ML IV (18:04)
--- NOTE | 2023-09-08 18:27 | ONC.CONSULT ---
Assessment & Plan Assessment/Plan (1) GASTON (acute kidney injury): Status: Acute Code(s): N17.9 - Acute kidney failure, unspecified (2) Thrombocytopenia: Status: Resolved Code(s): D69.6 - Thrombocytopenia, unspecified Plan: Thrombocytopenia has been present since the last admission, etiology may be multifactorial including medications, sepsis, renal failure. Peripheral Blood film reviewed, saw a Bite cell so TTP is unlikely. Will ask Pathology to review Slide tomorrow. I would suggest supportive management, Transfuse PLT if PLT drop below 10K. HPI Consult Data Date of Service:: 09/08/23 PCP / Referring Provider: KEVLIN Garcia Attending: Dr. Angelina Parker MD Chief Complaint Chief Complaint: Asked to see Pt to R/O TTP. History of Present Illness History of Present Illness: 63-year-old woman With history of MSSA bacteremia, acute on chronic respiratory failure, chronic anemia due to upper GI bleed as readmitted to the hospital with general weakness, confusion, WBC 3.2, hemoglobin 8.8 and platelets of 46, creatinine 3.6.She had a peripheral smear which was thought to have schistocytes. Advanced Directives Power of Director Of Event Sales: No Living Will: No [facility] Medical History (Updated 09/08/23 @ 15:[address] Jose Luis Lechuga MD) (HFpEF) heart failure with preserved ejection fraction GASTON (acute kidney injury) Anemia Anxiety Anxiety and depression Chest pain Chronic acquired lymphedema Chronic anemia Chronic kidney disease Chronic kidney disease CKD (chronic kidney disease), stage III Congestive heart failure COPD (chronic obstructive pulmonary disease) CPAP (continuous positive airway pressure) dependence Current use of insulin Diabetes Diabetes mellitus with diabetic polyneuropathy Diabetes mellitus, type 2 Gastroparesis History of diabetes mellitus History of fever History of renal insufficiency History of stress test HLD (hyperlipidemia) HTN (hypertension) Hypothyroidism Hypoxia Irregular heartbeat Lower extremity edema Malaise Morbid obesity On home oxygen therapy SACHIN (obstructive sleep apnea) Pleural effusion, left Pulmonary edema Restless legs Retinal hemorrhage Sleep apnea Home Medications atorvastatin 10 mg tablet 10 mg PO DAILY cholesterol 09/24/22 [History Last Taken 04/13/23] escitalopram oxalate 10 mg tablet 10 mg PO DAILY anxiety 09/24/22 [History Last Taken 04/13/23] fenofibrate nanocrystallized 48 mg tablet (Tricor) 48 mg PO DAILY cholesterol 09/24/22 [History Last Taken 04/13/23] gabapentin 100 mg capsule 200 mg PO BID PAIN 03/05/23 [History Last Taken 04/13/23] levothyroxine 150 mcg tablet 150 mcg PO DAILY@0600 THYROID 03/05/23 [History Last Taken Unknown] ropinirole 4 mg tablet 4 mg PO QHS restless legs 03/05/23 [History Last Taken 05/01/23] dulaglutide 0.75 mg/0.5 mL subcutaneous pen injector (Trulicity) 0.75 mg subcut WE DIABETES 04/14/23 [History Last Taken 08/15/23] gabapentin 400 mg capsule 400 mg PO QHS PAIN 04/14/23 [History Last Taken 04/13/23] omega 9-wqz-cih-fish oil 300 mg-1,000 mg capsule (Fish Oil) 1 cap PO BID VITAMIN 04/14/23 [History Last Taken 04/13/23] pen needle, diabetic 31 gauge x 1/4 (Easy Touch) 04/14/23 [History Last Taken Unknown] pantoprazole 40 mg tablet,delayed release 40 mg PO BID #60 tabs 05/08/23 [Rx Last Taken Unknown] sucralfate 1 gram tablet (Carafate) 1 g PO BID #60 tabs 05/08/23 [Rx Last Taken Unknown] acetaminophen 325 mg tablet 650 mg PO Q6H PRN pain 08/26/23 [History Last Taken Unknown] difluprednate 0.05 % eye drops 1 drp ophthalmic (eye) 4X/DAY 08/26/23 [History Last Taken Unknown] nystatin 100,000 unit/gram topical powder (Nystop) 1 applic topical BID 08/26/23 [History Last Taken Unknown] furosemide 40 mg tablet 40 mg PO DAILY #0 tabs 09/01/23 [Rx Last Taken Unknown] insulin glargine-yfgn 100 unit/mL (3 mL) subcutaneous pen 13 unit (0.13 mL) subcut QHS #0 mL 09/01/23 [Rx Last Taken Unknown] insulin lispro 100 unit/mL subcutaneous pen (Humalog KwikPen (U-100) Insulin) 10 unit (0.1 mL) subcut TIDAC #0 mL 09/01/23 [Rx Last Taken Unknown] linezolid 600 mg tablet 600 mg PO Q12H 10 days #20 tabs 09/01/23 [Rx Last Taken Unknown] artificial tears(hypromellose) 0.3 % eye gel 1 drp EACH EYE Q2H PRN dry eye(s) 09/07/23 [History Last Taken Unknown] Allergy/AdvReac Type Severity Reaction Status Date / Time No Known Allergies Allergy Verified 07/14/23 18:45 Family History Mother Heart disease Hypertension Diabetes Father Prostate cancer Surgical History H/O cataract removal with insertion of prosthetic lens History of cholecystectomy History of surgery on lower extremity Social History housing: detention Smoking Status: Never smoker alcohol intake: never substance use type: does not use Physical Exam Narrative Pt lying in bed, talking to daughter and granddaughter. Const no apparent distress HEENT normocephalic Eyes conjunctivae normal and no scleral icterus Neck supple Lymph Lymphatic: no lymphadenopathy noted Resp clear to auscultation bilaterally Cardio regular rate, regular rhythm, S1 normal heart sound and S2 normal heart sound GI soft to palpation Extremity no clubbing, cyanosis or edema Neuro moves all extremities Psych Psych Narrative: Awake, recognized her daughter and grand daughter in front of me. Vital Signs Temperature 96.5 F L 09/08/23 16:00 Temperature Source Temporal 09/08/23 16:00 Pulse Rate 59 L 09/08/23 17:00 Pulse Strength Weak (1+) 09/08/23 09:10 Respiratory Rate 21 H 09/08/23 17:00 Respiratory Effort Normal, Non-Labored 09/08/23 15:49 Respiratory Depth Normal 09/08/23 15:49 Respiratory Pattern Normal 09/08/23 15:49 Blood Pressure 131/68 H 09/08/23 17:00 Blood Pressure Mean 89 09/08/23 17:00 Blood Pressure Source Monitor 09/08/23 17:00 Blood Pressure Position Semi-Fowlers 09/08/23 17:00 Blood Pressure Location Right Forearm 09/08/23 17:00 Pulse Ox 97 09/08/23 17:15 Oxygen Delivery Method Nasal Cannula 09/08/23 17:15 Oxygen Flow Rate (L/min) 2 09/08/23 17:15 Fraction of Inspired Oxygen (FIO2) 30 09/08/23 17:00 Laboratory Results - last 24 hr 09/07/23 10:41: Troponin I High Sens Cancelled 09/08/23 02:29: POC Glucose 73 L 09/08/23 05:30: WBC 5.6, RBC 2.71 L, Hgb 7.5 L, Hct 24.9 L, MCV 91.9, MCH 27.7, MCHC 30.1 L, RDW Std Deviation 56.5 H, RDW Coeff of Vlad 17.1 H, Plt Count 47 L*, MPV 12.6 H, Immature Gran % (Auto) 3.900 H, Neut % (Auto) 75.5 H, Lymph % (Auto) 10.4 L, [place] % (Auto) 8.6, Eos % (Auto) 1.4, Baso % (Auto) 0.2, Absolute Neuts (auto) 4.2, Absolute Lymphs (auto) 0.58 L, Nucleated RBC % 0.4, Sodium 149 H, Potassium 5.8 H, Chloride 119 H, Carbon Dioxide 27.0, Anion Gap 3 L, BUN 76 H, Creatinine 4.10 H, Estim Creat Clear Calc 18.85, Est GFR (MDRD) Af Amer 14 L, Est GFR (MDRD) Non-Af 12 L, BUN/Creatinine Ratio 18.5, Glucose 81, Calcium 8.1 L, Phosphorus 5.2 H, Magnesium 2.0 09/08/23 12:04: POC Glucose 81 09/08/23 16:00: Lactate Dehydrogenase 229 09/08/23 17:39: POC Glucose 63 L Microbiology 09/07/23 10:41 Urine Catheter - [place] Urine Culture - Preliminary Culture exhibits no growth. Diagnostic Data Brain CT 09/07/23 10:19 IMPRESSION: Chronic involutional changes of the brain. No acute hemorrhage Electronically Signed: King Hadley MD at 12:04 EST , Chest X-Ray 09/07/23 10:19 IMPRESSION: Partial but not yet complete resolution of previously noted diffuse interstitial edema in both lung reyes. Continued follow-up recommended to ensure complete resolution Electronically Signed: King Hadley MD at 12:05 EST , Cervical Spine CT 09/07/23 10:25 IMPRESSION: Multilevel degenerative changes, as described above. No demonstrated fracture or suspicious osseous lesion. Findings are most pronounced at C5-6 and C6-7 Electronically Signed: King Hadley MD at 12:09 EST , Charges/Coding Visit Charges Office Visits / Consults: [id number] IP Consult L3
[2023-09-08 23:27] LABS: Bedside Glucose 87 mg/dL (74-106)
[2023-09-09] VITALS (31 sets, daily range): BP systolic 97–152; BP diastolic 51–98; PULSE 47–81; RESP 12–24; TEMP 34.1–36.7; O2SAT 90–100; BMI 49.7
[2023-09-09 03:12] LABS: Absolute Lymphocyte Count 0.75 X10^3/uL (0.83-4.51); Absolute Neutrophil Count 2.6 X10^3/uL (2.0-7.7); Basophil# 0.01 X10^3/uL; Basophil% 0.3 % (0-1); Eosinophil# 0.09 X10^3/uL; Eosinophils% 2.3 % (0-5); Hematocrit 24.3 % (37-47); Hemoglobin 7.1 g/dL (12.0-15.0); Lymphocyte # 0.75 X10^3/ul (0.83-4.51); Lymphocyte % 19.2 % (19-41); Mean Corp Hgb Conc 29.2 g/dL (32-36); Mean Corpuscular Hgb 27.6 pg (27.0-32.0); Mean Corpuscular Volume 94.6 fL (81-99); Mean Platelet Vol. 13.2 fl (6.2-12.0); Monocyte# 0.42 X10^3/uL; Monocyte% 10.7 % (0-10); NRBC Flagged by Analyzer 0 % (0-5); Neutrophil # 2.59 X10^3/uL (2.7-7.7); Neutrophil % 66.2 % (47-70); POSITIVE COUNT YES; Platelet Count 42 K/mm3 (150-450); RBC Distribution Width CV 17.2 % (11.6-14.6); RBC Distribution Width SD 59.8 fl (35.1-43.9); Red Blood Count 2.57 M/mm3 (4.2-5.4); White Blood Count 3.9 K/mm3 (4.4-11.0)
[2023-09-09 03:43] LABS: Anion Gap 3 (5-15); BUN 73 mg/dL (7-18); BUN/Creat Ratio 17.9 RATIO (10-20); Calcium,Total 7.8 mg/dL (8.5-10.1); Chloride 120 mmol/L (98-107); Creatinine, Serum 4.07 mg/dL (0.55-1.02); EST Glomerular Filtration Rate 12 mL/min (>60); Est Glom Filt Rate - Afr Amer 14 mL/min (>60); Estimated Creatinine Clearance 18.92 ml/min; Glucose 118 mg/dL (74-106); Potassium 5.6 mmol/L (3.5-5.1); Sodium Level 149 mmol/L (136-145)
[2023-09-09 03:55] LABS: Differential Comment SCANNED
[2023-09-09] MEDS: CHLORHEXIDINE GLUC 2% CLOTH 1 EACH TOWELETTE TOPICAL (05:11)
[2023-09-09] MEDS: 0.9% Saline Lock 10 ML Syringe IV ×2 (05:11→08:20)
[2023-09-09] MEDS: Nystatin Powder 15gm Bottle 1 APPLIC TOPICAL ×3 (05:11→21:49)
[2023-09-09 05:32] LABS: Bedside Glucose 92 mg/dL (74-106)
--- NOTE | 2023-09-09 06:15 | PN.CC_ITS ---
Assessment & Plan Assessment/Plan (1) Respiratory failure with hypoxia and hypercapnia: PLAN: Plan RECOMMENDATIONS: 1. Continue PAP therapy as ordered with sleep. 2. Supplemental oxygen to maintain saturations at or above 90%. 3. Empiric antimicrobials, pending finalized infectious workup. 4. Send type and screen. Transfuse if hemoglobin drops below 7 g/dL. 5. Continue twice daily PPI therapy. IMPRESSIONS: 1. Acute on chronic combined respiratory failure Once again appears secondary to noncompliance with prescribed PAP therapy. The patient may have an element of alveolar hypoventilation secondary to obesity coupled with known obstructive sleep apnea, for which the patient has been noncompliant with the use of PAP therapy. On several occasions, the patient has been referred to the pulmonary office for further workup and management of her sleep apnea, but has failed to follow-up. She utilizes 2 L/min of supplemental oxygen throughout the day and 4 L/min nightly. For now, recommend continuing AVAPS therapy with naps and nightly. Continue supplemental oxygen when not on PAP therapy to maintain saturations at or above 90%. 2. Encephalopathy Most likely metabolic in nature with CO2 retention and uremia contributing. In addition, an underlying UTI may also be yet another contributing etiology. The patient is being maintained on appropriate antibiotics for now. Continue supp ortive care with PAP therapy. Nephrology is following to assist with medical management of renal failure. Although TSH was elevated, free T4 was normal. 3. Anemia/thrombocytopenia The patient has a history of recurrent upper GI bleeding secondary to gastric ulcer. Continue to monitor H&H daily and transfuse if hemoglobin drops below 7 g/dL. Continue twice daily PPI therapy. The patient was evaluated by hematology who felt that the patient's thrombocytopenia was likely multifactorial with recent sepsis and renal failure contributing. Continue to monitor daily platelet count and transfuse if counts drop below 10,000. 4. Morbid obesity/medical noncompliance/hypertension/diabetes mellitus/hypothyroidism/chronic kidney disease/GERD Complicates care, management, recovery and prognosis. Continue home medications as indicated. The patient's noncompliance with prescribed medical therapy is clearly leading to recurrent hospitalizations. This note was generated with [employer] software. It may contain incorrect words, spelling, and punctuation that were not noted in checking the note before signing. Subjective Subjective The patient was seen and examined at the bedside this morning. Events from the last 24 hours have been reviewed. The patient is currently afebrile, hemodynamically stable and maintaining appropriate oxygen saturations on AVAPS with an FiO2 of 30%. The patient is documented to be overall net +3 L for the hospitalization. The patient remains pancytopenic with a hemoglobin of 7.1 g/dL and platelet count of 42,000. Sodium remains elevated at 149 with a potassium of 5.6, chloride of 120, BUN of 73 and creatinine of 4.07. The patient seems more alert this morning, but is still difficult to understand, with audible moa clara. Objective Data Objective Data The patient's most recent lab work, culture data and imaging studies have all been personally reviewed. Blood and urine cultures are pending. Vital Signs: Vital Signs Temp Pulse Resp BP Pulse Ox O2 Del Method O2 Flow Rate 98.0 F 64 17 123/57 H 98 Bi-pap 2 09/09/23 06:00 09/09/23 06:00 09/09/23 06:00 09/09/23 06:00 09/09/23 06:00 09/09/23 06:00 09/08/23 20:00 FiO2 30 09/09/23 06:00 Oxygen Flow Rate (L/min) 2 Oxygen Delivery Method Bi-pap Weight: 298 lb 8.094 oz Body Mass Index (BMI) 49.7 Intake & Output: Intake and Output for Last 24 Hours 09/07/23 09/08/23 09/09/23 23:59 23:59 23:59 Intake Total 1760.05 / 1760.05 2327.33 / 2327.33 50 / 50 Output Total 425 / 425 520 / 520 125 / 125 Balance 1335.05 / 1335.05 1807.33 / 1807.33 -75 / -75 Lab / Micro Data Attestation: I reviewed the patient's lab results. 09/09/23 03:00 09/09/23 03:00 Labs: Laboratory Results - last 24 hr 09/08/23 05:30: Phosphorus 5.2 H, Magnesium 2.0 09/08/23 12:04: POC Glucose 81 09/08/23 16:00: Lactate Dehydrogenase 229 09/08/23 17:39: POC Glucose 63 L 09/08/23 23:08: POC Glucose 87 09/09/23 03:00: WBC 3.9 L, RBC 2.57 L, Hgb 7.1 L, Hct 24.3 L, MCV 94.6, MCH 27.6, MCHC 29.2 L, RDW Std Deviation 59.8 H, RDW Coeff of Vlad 17.2 H, Plt Count 42 L*, MPV 13.2 H, Immature Gran % (Auto) 1.300 H, Neut % (Auto) 66.2, Lymph % (Auto) 19.2, [place] % (Auto) 10.7 H, Eos % (Auto) 2.3, Baso % (Auto) 0.3, Absolute Neuts (auto) 2.6, Absolute Lymphs (auto) 0.75 L, Nucleated RBC % 0, Differential Comment SCANNED, Diff Path Review November, Sodium 149 H, Potassium 5.6 H, Chloride 120 H, Carbon Dioxide 26.0, Anion Gap 3 L, BUN 73 H, Creatinine 4.07 H, Estim Creat Clear Calc 18.92, Est GFR (MDRD) Af Amer 14 L, Est GFR (MDRD) Non-Af 12 L, BUN/Creatinine Ratio 17.9, Glucose 118 H, Calcium 7.8 L 09/09/23 05:09: POC Glucose 92 Micro: Microbiology 09/07/23 10:41 Urine Catheter - [place] Urine Culture - Preliminary Culture exhibits no growth. 09/07/23 10:33 Mucosa - Nose SARS-CoV-2, Influenza & RSV (PCR) - Final ABG Data ABG results: ABG 09/07/23 09/08/23 14:07 09:56 Specimen Type ART Sample Site R Radial pH 7.30 L Bicarbonate Actual 25.7 Total CO2 27 Base Excess -1 O2 Saturation TNP 97 O2 % 3.0 ABG pCO2 52.6 H ABG pO2 TNP 106 H Madi Test Positive O2 Delivery Device Cannula Vent Mode Not entered Physical Exam Const Constitutional Narrative: More alert than yesterday, but still remains somewhat lethargic and difficult to understand, with audible moaning. Morbidly obese. Currently tolerating PAP. HEENT normocephalic and head/scalp atraumatic Eyes PERRL and EOMs intact bilaterally Neck supple General: trachea midline Chest inspection of chest normal Resp normal respiratory effort Auscultation: diminished lung sounds; Negative for rales, rhonchi or wheezes Cardio regular rate and regular rhythm GI normal to inspection, nondistended, normoactive bowel sounds Extremity no clubbing, cyanosis or edema Skin no rashes or lesions noted Neuro no focal motor deficits Psych Mood & Affect: flat affect Charges/Coding Visit Charges Inpatient E&M: 80914 Subs Hosp L3
[2023-09-09] MEDS: Dextrose 5%-Water (1000mL Bag) 1,000 ML 75 ML IV ×2 (07:17→20:05)
[2023-09-09] MEDS: Morphine 2 MG/ML Syringe 1 MG IV (08:20)
[2023-09-09] MEDS: Sodium Polystyrene Sulfonate 15 GM/60 ML UDC 30 GM RC (08:46)
[2023-09-09] MEDS: LEVOTHYROXINE SODIUM 100 MCG VIAL IV (09:29)
[2023-09-09] MEDS: Pantoprazole Sodium 40 MG in 0.9% Normal Saline (100mL MB+) 100 ML 330 MG IV ×2 (09:29→20:05)
[2023-09-09] MEDS: Piperacil/Tazobactam 3.375 GM in 0.9% Normal Saline (50mL MB+) 50 ML IV (10:01)
--- NOTE | 2023-09-09 11:46 | PCM.PN.REN ---
Subjective Subjective Patient is alert but confused and has been pulling at her lines today. Otherwise no overnight events. Objective Data Objective Data Vital Signs: Vital Signs Temp Pulse Resp BP Pulse Ox O2 Del Method O2 Flow Rate 96.9 F L 73 21 H 152/74 H 98 Bi-pap 2 09/09/23 10:00 09/09/23 11:00 09/09/23 11:00 09/09/23 11:00 09/09/23 11:00 09/09/23 11:00 09/09/23 09:00 FiO2 30 09/09/23 11:00 Oxygen Flow Rate (L/min) 2 Oxygen Delivery Method Bi-pap Weight: 135.4 kg Body Mass Index (BMI) 49.7 Intake & Output: Intake and Output for Last 24 Hours 09/07/23 09/08/23 09/09/23 23:59 23:59 23:59 Intake Total 1760.05 / 1760.05 2327.33 / 2327.33 1287.00 / 1287.00 Output Total 425 / 425 520 / 520 125 / 125 Balance 1335.05 / 1335.05 1807.33 / 1807.33 1162.00 / 1162.00 Lab / Micro Data 09/09/23 03:00 09/09/23 03:00 Labs: Laboratory Results - last 24 hr 09/08/23 12:04: POC Glucose 81 09/08/23 16:00: Lactate Dehydrogenase 229 09/08/23 17:39: POC Glucose 63 L 09/08/23 23:08: POC Glucose 87 09/09/23 03:00: WBC 3.9 L, RBC 2.57 L, Hgb 7.1 L, Hct 24.3 L, MCV 94.6, MCH 27.6, MCHC 29.2 L, RDW Std Deviation 59.8 H, RDW Coeff of Vlad 17.2 H, Plt Count 42 L*, MPV 13.2 H, Immature Gran % (Auto) 1.300 H, Neut % (Auto) 66.2, Lymph % (Auto) 19.2, [place] % (Auto) 10.7 H, Eos % (Auto) 2.3, Baso % (Auto) 0.3, Absolute Neuts (auto) 2.6, Absolute Lymphs (auto) 0.75 L, Nucleated RBC % 0, Differential Comment SCANNED, Diff Path Review November foll, Sodium 149 H, Potassium 5.6 H, Chloride 120 H, Carbon Dioxide 26.0, Anion Gap 3 L, BUN 73 H, Creatinine 4.07 H, Estim Creat Clear Calc 18.92, Est GFR (MDRD) Af Amer 14 L, Est GFR (MDRD) Non-Af 12 L, BUN/Creatinine Ratio 17.9, Glucose 118 H, Calcium 7.8 L 09/09/23 05:09: POC Glucose 92 09/09/23 08:02: Blood Type B POSITIVE, Antibody Screen NEGATIVE Micro: Microbiology 09/07/23 10:41 Urine Catheter - Beach Urine Culture - Final Culture exhibits no growth. 09/07/23 10:33 Mucosa - Nose SARS-CoV-2, Influenza & RSV (PCR) - Final Physical Exam Narrative Confused no obvious distress s1s2 no murmurs lungs clear abdomen soft no pitting edema beach + Assessment & Plan Assessment/Plan (1) GASTON (acute kidney injury): PLAN: Plan Acute kidney injury superimposed on CKD. History of CKD stage IV, creatinine has been around 1.5-2 with several fluctuations. In June 2023 serum creatinine ranging around 2.3 to 2.6 mg/dL. On the day of discharge, her creatinine was 1.9 mg/dL on September 01. On admission, September 07 creatinine 3.6, creatinine 4.1 yesterday and creatinine is 4.07 today. Potassium is 5.6, patient received dose of Kayexalate again today. Bicarb normal. Urine output so far today 125 mL. Patient is on gentle IV fluids, D5W Recent diagnosis proteinuria, nephrotic range. Immunofixation negative. Other serologies negative. Etiology of GASTON unclear. Currently she is confused with some asterixis. On review of chart, her platelet counts have been decreasing LDH normal and haptoglobin pending Beach catheter indwelling Hyperkalemia. Borderline. No EKG changes. Received another dose of Kayexalate again today. Once diet started recommend low K+ may need HD temporarily if no improvement
[2023-09-09 11:47] LABS: Bedside Glucose 88 mg/dL (74-106)
--- NOTE | 2023-09-09 14:09 | PN_ITS ---
Subjective Subjective Patient seen and examined. She still remains weak and confused. Unable to do review of systems. Objective Data Objective Data Vital Signs: Vital Signs Temp Pulse Resp BP Pulse Ox O2 Del Method O2 Flow Rate 97.2 F L 74 19 H 135/69 H 95 Nasal Cannula 2 09/09/23 12:00 09/09/23 13:00 09/09/23 13:00 09/09/23 13:00 09/09/23 13:00 09/09/23 13:00 09/09/23 13:00 FiO2 30 09/09/23 11:00 Oxygen Flow Rate (L/min) 2 Oxygen Delivery Method Nasal Cannula Weight: 298 lb 8.094 oz Body Mass Index (BMI) 49.7 Intake & Output: Intake and Output for Last 24 Hours 09/07/23 09/08/23 09/09/23 23:59 23:59 23:59 Intake Total 1760.05 / 1760.05 2327.33 / 2327.33 1287.00 / 1287.00 Output Total 425 / 425 520 / 520 525 / 525 Balance 1335.05 / 1335.05 1807.33 / 1807.33 762.00 / 762.00 Lab / Micro Data 09/09/23 03:00 09/09/23 03:00 Labs: Laboratory Results - last 24 hr 09/08/23 16:00: Lactate Dehydrogenase 229 09/08/23 17:39: POC Glucose 63 L 09/08/23 23:08: POC Glucose 87 09/09/23 03:00: WBC 3.9 L, RBC 2.57 L, Hgb 7.1 L, Hct 24.3 L, MCV 94.6, MCH 27.6, MCHC 29.2 L, RDW Std Deviation 59.8 H, RDW Coeff of Vlad 17.2 H, Plt Count 42 L*, MPV 13.2 H, Immature Gran % (Auto) 1.300 H, Neut % (Auto) 66.2, Lymph % (Auto) 19.2, [place] % (Auto) 10.7 H, Eos % (Auto) 2.3, Baso % (Auto) 0.3, Absolute Neuts (auto) 2.6, Absolute Lymphs (auto) 0.75 L, Nucleated RBC % 0, Differential Comment SCANNED, Diff Path Review May foll, Sodium 149 H, Potassium 5.6 H, Chloride 120 H, Carbon Dioxide 26.0, Anion Gap 3 L, BUN 73 H, Creatinine 4.07 H, Estim Creat Clear Calc 18.92, Est GFR (MDRD) Af Amer 14 L, Est GFR (MDRD) Non-Af 12 L, BUN/Creatinine Ratio 17.9, Glucose 118 H, Calcium 7.8 L 09/09/23 05:09: POC Glucose 92 09/09/23 08:02: Blood Type B POSITIVE, Antibody Screen NEGATIVE 09/09/23 11:29: POC Glucose 88 Micro: Microbiology 09/07/23 10:24 Blood Culture (Wb) - Anticubital Right Blood Culture - Preliminary No growth in 48 hours. 09/07/23 10:21 Blood Culture (Wb) - Anticubital Left Blood Culture - Preliminary No growth in 48 hours. 09/07/23 10:41 Urine Catheter - [place] Urine Culture - Final Culture exhibits no growth. 09/07/23 10:33 Mucosa - Nose SARS-CoV-2, Influenza & RSV (PCR) - Final Physical Exam Const Constitutional Narrative: confused, lethargic Orientation / Consciousness: confused and lethargic HEENT normocephalic, head/scalp atraumatic, hearing grossly normal bilaterally and moist oral mucous membranes Eyes PERRL, EOMs intact bilaterally and conjunctivae normal Neck no lymphadenopathy, supple, no JVD, thyroid normal and no carotid bruits General: trachea midline Lymph Lymphatic: no lymphadenopathy noted Resp Resp Narrative: mildly diminished breath sounds bilaterally, no wheezes or crackles. On 2 L of oxygen. Auscultation: Negative for rales, rhonchi or wheezes Cardio regular rate, regular rhythm, S1 normal heart sound, S2 normal heart sound, no murmurs, no rub and no gallops GI normal to inspection, nondistended, normoactive bowel sounds, soft to palpation, non-tender and non-distended GI Narrative: has mild erythema in the intertriginous folds. Extremity normal capillary refill and no clubbing, cyanosis or edema Skin Skin Narrative: erythema in the intertriginous folds General Skin Exam: no breakdown Neuro no focal motor deficits and no sensory deficits noted Neuro Narrative: confused, lethargic, restless. Motor Exam: general weakness Psych Psych Narrative: Patient is lethargic and confused Assessment & Plan Assessment/Plan (1) Respiratory failure with hypoxia and hypercapnia: (2) MSSA bacteremia: PLAN: Plan #Acute on chronic hypoxic and hypercapnic respiratory failure * on 2L of oxygen by nasal canula * remains restless and lethargic. * CT brain on admission showed no acute intracranial pathology * urine tox was negative * critical care on board. * breathing treatment with bronchodilators * titrate oxygen to maintain sats >90% * on empiric antibiotics * blood cultures and urine cultures negative. * #GASTON on CKD with hyperkalemia * Cr still elevted at 4.07. potassium is 5.6 today. * Baseline Cr is ~ 1.5-1.7 * management as per nephrology * insert beach catheter. * will give rectal kayexalate again today * #UTI * urinalysis showed evidence of UTI * on IV zosyn. Urine cultures negative. * #MSSA bacteremia: hd been on zyvox in hr SNF. Now on IV zosyn. #Thrombocytopenia: * platelets are down to 42 today; from 47 yesterday.Platelets have been low since the beginning of this month. * In light of patient's altered mental status and confusion, low platelets and kidney impairment, TTP is a possibility. WIll ask hematology lab to review slide for schistocytes. * She was also discharged on zyvox which can cause thrombocytopenia and will explain it. * hematology consulted due to worsening thrombocytopenia and appearance of schistocytes on the peripheral smear. Per hematology, it appears to be more of bite cells, not schistocytes. #Acute on chronic Anemia: * hb is down to 7.1; was 7.5 yesterday * transfuse if Hb <7. Has chronic anemia. Will monitor #Hypernatremia: sodium remains 149. Likely due to IVF hydration. management as per nephrology #Super morbid obesity: BMI is 50. Complicates acute care, expected recovery and prognosis. #TYpe 2 diabetes mellitus: on ISS. Accuchecks ACHS. #Hypothyroidism: on synthroid. TSH elevated at 25,but it appears her TSH has been chronically elevated and is now even lower than previously. On IV synthroid DVT prophylaxis; SCDs. Charges/Coding Visit Charges Inpatient E&M: 81337 Subs Hosp L3
[2023-09-09] MEDS: oxyCODONE 5 MG Tablet PO (17:36)
[2023-09-09 17:56] LABS: Bedside Glucose 115 mg/dL (74-106)
[2023-09-09] MEDS: 0.9% Normal Saline (250mL Bag) 250 ML 15 ML IV ×2 (20:05→20:06)
[2023-09-09] MEDS: Cefazolin 1 GM/50 ML BAG IV (21:49)
[2023-09-10] VITALS (17 sets, daily range): BP systolic 103–138; BP diastolic 55–109; PULSE 48–61; RESP 12–18; TEMP 32–36.1; O2SAT 96–100; BMI 50.1
[2023-09-10 00:19] LABS: Bedside Glucose 120 mg/dL (74-106)
[2023-09-10 05:07] LABS: Haptoglobin 101 mg/dL (37-355)
[2023-09-10] MEDS: oxyCODONE 5 MG Tablet PO ×3 (05:07→21:22)
[2023-09-10] MEDS: 0.9% Saline Lock 10 ML Syringe IV ×2 (05:07→21:22)
[2023-09-10] MEDS: Nystatin Powder 15gm Bottle 1 APPLIC TOPICAL ×3 (05:09→21:00)
[2023-09-10 05:12] LABS: Absolute Lymphocyte Count 0.81 X10^3/uL (0.83-4.51); Absolute Neutrophil Count 1.9 X10^3/uL (2.0-7.7); Basophil# 0.01 X10^3/uL; Basophil% 0.3 % (0-1); Hematocrit 25.8 % (37-47); Hemoglobin 7.5 g/dL (12.0-15.0); Lymphocyte # 0.81 X10^3/ul (0.83-4.51); Lymphocyte % 24.5 % (19-41); Mean Corp Hgb Conc 29.1 g/dL (32-36); Mean Corpuscular Hgb 27.8 pg (27.0-32.0); Mean Corpuscular Volume 95.6 fL (81-99); Mean Platelet Vol. 11.4 fl (6.2-12.0); Monocyte# 0.45 X10^3/uL; Monocyte% 13.6 % (0-10); NRBC Flagged by Analyzer 0.6 % (0-5); Neutrophil # 1.85 X10^3/uL (2.7-7.7); Neutrophil % 55.9 % (47-70); POSITIVE COUNT YES; Platelet Count 33 K/mm3 (150-450); RBC Distribution Width SD 59.4 fl (35.1-43.9); White Blood Count 3.3 K/mm3 (4.4-11.0)
[2023-09-10 05:18] LABS: Differential Indicated SCAN CRITERIA MET
[2023-09-10 05:31] LABS: Anion Gap 2 (5-15); BUN 69 mg/dL (7-18); BUN/Creat Ratio 17.2 RATIO (10-20); Calcium,Total 8.1 mg/dL (8.5-10.1); Chloride 119 mmol/L (98-107); Creatinine, Serum 4.01 mg/dL (0.55-1.02); EST Glomerular Filtration Rate 12 mL/min (>60); Est Glom Filt Rate - Afr Amer 14 mL/min (>60); Glucose 149 mg/dL (74-106); Potassium 4.6 mmol/L (3.5-5.1); Sodium Level 148 mmol/L (136-145)
[2023-09-10 05:49] LABS: Bedside Glucose 128 mg/dL (74-106)
[2023-09-10 06:07] LABS: Platelet Estimate MKD DEC (ADEQ)
--- NOTE | 2023-09-10 06:12 | PCM.PN.INT ---
Assessment & Plan Assessment/Plan (1) Respiratory failure with hypoxia and hypercapnia: PLAN: Plan RECOMMENDATIONS: 1. Continue PAP therapy as ordered with sleep. This will need to be continued upon her discharge from the hospital. 2. Supplemental oxygen to maintain saturations at or above 90%. 3. Continue antibiotics. 4. Continue to monitor H&H daily and transfuse if hemoglobin drops below 7 g/dL. 5. Continue twice daily PPI therapy. 6. Encourage incentive spirometer use and mobilize patient as tolerated. 7. Recommend outpatient pulmonary follow-up for further optimization. The patient would benefit from a retitration polysomnogram. IMPRESSIONS: 1. Acute on chronic combined respiratory failure Once again appears secondary to noncompliance with prescribed PAP therapy. The patient may have an element of alveolar hypoventilation secondary to obesity coupled with known obstructive sleep apnea, for which the patient has been noncompliant with the use of PAP therapy. On several occasions, the patient has been referred to the pulmonary office for further workup and management of her sleep apnea, but has failed to follow-up. She utilizes 2 L/min of supplemental oxygen throughout the day and 4 L/min nightly. For now, recommend continuing PAP therapy with naps and nightly. Continue supplemental oxygen when not on PAP therapy to maintain saturations at or above 90%. 2. Encephalopathy Improving. Most likely metabolic in nature with CO2 retention and uremia contributing. Continue supportive care with PAP therapy. Nephrology is following to assist with medical management of renal failure. Although TSH was elevated, free T4 was normal. 3. Anemia/thrombocytopenia The patient has a history of recurrent upper GI bleeding secondary to gastric ulcer. Continue to monitor H&H daily and transfuse if hemoglobin drops below 7 g/dL. Continue twice daily PPI therapy. The patient was evaluated by hematology who felt that the patient's thrombocytopenia was likely multifactorial with recent sepsis and renal failure contributing. Continue to monitor daily platelet count and transfuse if counts drop below 10,000. 4. Morbid obesity/medical noncompliance/hypertension/diabetes mellitus/hypothyroidism/chronic kidney disease/GERD Complicates care, management, recovery and prognosis. Continue home medications as indicated. The patient's noncompliance with prescribed medical therapy is clearly leading to recurrent hospitalizations. This note was generated with [employer] software. It may contain incorrect words, spelling, and punctuation that were not noted in checking the note before signing. Subjective Subjective The patient was seen and examined at the bedside this morning. Events from the last 24 hours have been reviewed. The patient is currently afebrile, hemodynamically stable and maintaining appropriate oxygen saturations on 2 L/min via nasal cannula. Hemoglobin is stable at 7.5 g/dL with a platelet count of 33,000. Sodium is noted to be 148 with a chloride of 119, BUN of 69 and creatinine of 4.01. The patient continues to be tolerant of PAP therapy on a nightly basis. She is alert and able to answer my questions this morning. Objective Data Objective Data The patient's most recent lab work, culture data and imaging studies have all been personally reviewed. Blood and urine cultures have not demonstrated any growth to date. Vital Signs: Vital Signs Temp Pulse Resp BP Pulse Ox O2 Del Method O2 Flow Rate 96.9 F L 52 L 14 138/73 H 100 Nasal Cannula 2 09/10/23 04:00 09/10/23 06:00 09/10/23 06:00 09/10/23 06:00 09/10/23 06:00 09/10/23 06:00 09/10/23 06:00 FiO2 30 09/10/23 04:00 Oxygen Flow Rate (L/min) 2 Oxygen Delivery Method Nasal Cannula Weight: 300 lb 14.896 oz Body Mass Index (BMI) 50.1 Intake & Output: Intake and Output for Last 24 Hours 09/08/23 09/09/23 09/10/23 23:59 23:59 23:59 Intake Total 2327.33 / 2327.33 2537.50 / 2537.50 Output Total 520 / 520 725 / 825 300 / 300 Balance 1807.33 / 1807.33 1812.50 / 1712.50 -300 / -300 Lab / Micro Data Attestation: I reviewed the patient's lab results. 09/10/23 05:00 09/10/23 05:00 Labs: Laboratory Results - last 24 hr 09/08/23 16:00: Haptoglobin 101 09/09/23 08:02: Blood Type B POSITIVE, Antibody Screen NEGATIVE 09/09/23 11:29: POC Glucose 88 09/09/23 17:38: POC Glucose 115 H 09/10/23 00:00: POC Glucose 120 H 09/10/23 05:00: WBC 3.3 L, RBC 2.70 L, Hgb 7.5 L, Hct 25.8 L, MCV 95.6, MCH 27.8, MCHC 29.1 L, RDW Std Deviation 59.4 H, RDW Coeff of Vlad 17.0 H, Plt Count 33 L*, MPV 11.4, Immature Gran % (Auto) 2.700 H, Neut % (Auto) 55.9, Lymph % (Auto) 24.5, [place] % (Auto) 13.6 H, Eos % (Auto) 3.0, Baso % (Auto) 0.3, Absolute Neuts (auto) 1.9 L, Absolute Lymphs (auto) 0.81 L, Nucleated RBC % 0.6, Diff Path Review November, Platelet Estimate MKD DEC, Sodium 148 H, Potassium 4.6, Chloride 119 H, Carbon Dioxide 27.0, Anion Gap 2 L, BUN 69 H, Creatinine 4.01 H, Estim Creat Clear Calc 19.30, Est GFR (MDRD) Af Amer 14 L, Est GFR (MDRD) Non-Af 12 L, BUN/Creatinine Ratio 17.2, Glucose 149 H, Calcium 8.1 L 09/10/23 05:30: POC Glucose 128 H Micro: Microbiology 09/07/23 10:24 Blood Culture (Wb) - Anticubital Right Blood Culture - Preliminary No growth in 48 hours. 09/07/23 10:21 Blood Culture (Wb) - Anticubital Left Blood Culture - Preliminary No growth in 48 hours. 09/07/23 10:41 Urine Catheter - [place] Urine Culture - Final Culture exhibits no growth. 09/07/23 10:33 Mucosa - Nose SARS-CoV-2, Influenza & RSV (PCR) - Final ABG Data ABG results: ABG 09/07/23 09/08/23 14:07 09:56 Specimen Type ART Sample Site R Radial pH 7.30 L Bicarbonate Actual 25.7 Total CO2 27 Base Excess -1 O2 Saturation TNP 97 O2 % 3.0 ABG pCO2 52.6 H ABG pO2 TNP 106 H Madi Test Positive O2 Delivery Device Cannula Vent Mode Not entered Physical Exam Const alert and no apparent distress Constitutional Narrative: Speech remains somewhat garbled. General Appearance: cooperative HEENT normocephalic and head/scalp atraumatic Eyes PERRL and EOMs intact bilaterally Neck supple General: trachea midline Chest inspection of chest normal Resp normal respiratory effort Auscultation: diminished lung sounds; Negative for rales, rhonchi or wheezes Cardio regular rate and regular rhythm GI normal to inspection, nondistended, normoactive bowel sounds Extremity no clubbing, cyanosis or edema Skin no rashes or lesions noted Neuro no focal motor deficits Psych Mood & Affect: flat affect Charges/Coding Visit Charges Inpatient E&M: 95343 Subs Hosp L2
[2023-09-10] MEDS: Dextrose 5%-Water (1000mL Bag) 1,000 ML 75 ML IV ×2 (07:41→18:27)
[2023-09-10] MEDS: Pantoprazole Sodium 40 MG in 0.9% Normal Saline (100mL MB+) 100 ML 330 MG IV ×2 (07:42→21:00)
[2023-09-10] MEDS: LEVOTHYROXINE SODIUM 100 MCG VIAL IV (07:43)
[2023-09-10] MEDS: Cefazolin 1 GM/50 ML BAG IV ×2 (09:26→21:40)
--- NOTE | 2023-09-10 09:52 | PN.RENAL_ITS ---
Documented by User: KELVIN Gomez 09/10/23 10:44 Subjective Subjective Patient is sitting up in bed, more alert today. On O2 via nasal cannula. Objective Data Objective Data Vital Signs: Vital Signs Temp Pulse Resp BP Pulse Ox O2 Del Method O2 Flow Rate 96.9 F L 52 L 14 132/70 H 100 Nasal Cannula 2 09/10/23 04:00 09/10/23 08:00 09/10/23 08:00 09/10/23 08:00 09/10/23 08:00 09/10/23 08:00 09/10/23 08:00 FiO2 30 09/10/23 04:00 Oxygen Flow Rate (L/min) 2 Oxygen Delivery Method Nasal Cannula Weight: 136.5 kg Body Mass Index (BMI) 50.1 Intake & Output: Intake and Output for Last 24 Hours 09/08/23 09/09/23 09/10/23 23:59 23:59 23:59 Intake Total 2327.33 / 2327.33 2537.50 / 2537.50 980 / 980 Output Total 520 / 520 725 / 825 300 / 300 Balance 1807.33 / 1807.33 1812.50 / 1712.50 680 / 680 Lab / Micro Data 09/10/23 05:00 09/10/23 05:00 Labs: Laboratory Results - last 24 hr 09/08/23 16:00: Haptoglobin 101 09/09/23 11:29: POC Glucose 88 09/09/23 17:38: POC Glucose 115 H 09/10/23 00:00: POC Glucose 120 H 09/10/23 05:00: WBC 3.3 L, RBC 2.70 L, Hgb 7.5 L, Hct 25.8 L, MCV 95.6, MCH 27.8, MCHC 29.1 L, RDW Std Deviation 59.4 H, RDW Coeff of Vlad 17.0 H, Plt Count 33 L*, MPV 11.4, Immature Gran % (Auto) 2.700 H, Neut % (Auto) 55.9, Lymph % (Auto) 24.5, [place] % (Auto) 13.6 H, Eos % (Auto) 3.0, Baso % (Auto) 0.3, Absolute Neuts (auto) 1.9 L, Absolute Lymphs (auto) 0.81 L, Nucleated RBC % 0.6, Diff Path Review November foll, Platelet Estimate MKD DEC, Sodium 148 H, Potassium 4.6, Chloride 119 H, Carbon Dioxide 27.0, Anion Gap 2 L, BUN 69 H, Creatinine 4.01 H, Estim Creat Clear Calc 19.30, Est GFR (MDRD) Af Amer 14 L, Est GFR (MDRD) Non-Af 12 L, BUN/Creatinine Ratio 17.2, Glucose 149 H, Calcium 8.1 L 09/10/23 05:30: POC Glucose 128 H Micro: Microbiology 09/07/23 10:24 Blood Culture (Wb) - Anticubital Right Blood Culture - Preliminary No growth in 48 hours. 09/07/23 10:21 Blood Culture (Wb) - Anticubital Left Blood Culture - Preliminary No growth in 48 hours. 09/07/23 10:41 Urine Catheter - [place] Urine Culture - Final Culture exhibits no growth. 09/07/23 10:33 Mucosa - Nose SARS-CoV-2, Influenza & RSV (PCR) - Final Physical Exam Narrative Alert to person and place no obvious distress s1s2 no murmurs lungs clear anteriorly, no wheezes, rhonchi or rales noted abdomen soft, nontender no pitting edema beach + Assessment & Plan Assessment/Plan (1) GASTON (acute kidney injury): PLAN: Plan Acute kidney injury superimposed on CKD. History of CKD stage IV, creatinine has been around 1.5-2 with several fluctuations. In June 2023 serum creatinine ranging around 2.3 to 2.6 mg/dL. On the day of discharge, her creatinine was 1.9 mg/dL on September 01. On admission, September 07 creatinine 3.6, creatinine 4.1--> creatinine is 4.0 last 2 days. Potassium is normal today, Bicarb normal. Urine output looks to be picking up. Patient is on gentle IV fluids, D5W Recent diagnosis proteinuria, nephrotic range. Immunofixation negative. Other serologies negative. Etiology of GASTON unclear. More alert today. On review of chart, her platelet counts have been decreasing, LDH and haptoglobin normal Beach catheter indwelling Hyperkalemia; potassium mildly elevated over past 2 weeks ranging 5.3-5.8. Today her potassium is 4.6. Will continue on low potassium diet restrictions. No EKG changes. Received Kayexalate last 2 days. Does not need Kayexalate today There has been some improvement in mentation, urine output seems to be picking up. No acute indication for renal placement therapy at this time. Documented by User: Dr. Jose Luis Lechuga MD 09/10/23 14:50 Objective Data Lab / Micro Data 09/10/23 05:00 09/10/23 05:00 Assessment & Plan Assessment/Plan (1) GASTON (acute kidney injury): PLAN: Plan Acute kidney injury superimposed on CKD. History of CKD stage IV, creatinine has been around 1.5-2 with several fluctuations. In June 2023 serum creatinine ranging around 2.3 to 2.6 mg/dL. On the day of discharge, her creatinine was 1.9 mg/dL on September 01. On admission, September 07 creatinine 3.6, creatinine 4.1--> creatinine is 4.0 last 2 days. Potassium is normal today, Bicarb normal. Urine output looks to be picking up. Patient is on gentle IV fluids, D5W Recent diagnosis proteinuria, nephrotic range. Immunofixation negative. Other serologies negative. Etiology of GASTON unclear. More alert today. On review of chart, her platelet counts have been decreasing, LDH and haptoglobin normal [place] catheter indwelling Hyperkalemia; potassium mildly elevated over past 2 weeks ranging 5.3-5.8. Today her potassium is 4.6. Will continue on low potassium diet restrictions. No EKG changes. Received Kayexalate last 2 days. Does not need Kayexalate today There has been some improvement in mentation, urine output seems to be picking up. No acute indication for renal placement therapy at this time. Patient was seen and examined independently. Mental status is better. She is more alert. Potassium is improved. Creatinine is about the same. In view of platelet count being low, sent LDH and haptoglobin which were normal. Hematology consult reviewed. No acute indications for renal replacement thera py. Urine output is decent.
--- NOTE | 2023-09-10 10:12 | CASEMGMT ---
Social Work SW met w/pt, pt less confused today. Pt aware of where she is, knows she came in from [facility] and normally lives at [facility]. SW inquired w/pt if she would like to return to [facility]. SW offered to give pt a list of correction facilities if she would want to make a change, pt states no, wants to return to [facility]. Pt then asked if SW could call her daughter to see if her daughter has her cell phone. SW called pt's daughter Nayla w/pt, then put Nayla on the phone w/pt. Pt's phone in room, SW put it to charge for pt. SW will continue to follow, updates to be sent to [facility] today. ARIAN Philippe
--- NOTE | 2023-09-10 10:42 | CASEMGMT ---
Discharge Planning Updates sent via [facility] to [facility] and requested that precert be submitted. Louise King, Discharge Planning Asst.
--- NOTE | 2023-09-10 10:50 | NURSING ---
2 silver colored rings removed from patient's fingers d/t swelling. Daughter, Nayla, took both rings home.
--- NOTE | 2023-09-10 11:00 | NURSING ---
Beach replaced with new core temp beach per Dr Cox's orders. temperature reading 89 degrees. Betty abimael placed on patient.
[2023-09-10] MEDS: Insulin Lispro 100 UNIT/ML INSULN.PEN SC (11:50)
[2023-09-10 12:05] LABS: Bedside Glucose 151 mg/dL (74-106)
[2023-09-10 12:08] LABS: Pathologist Review Reviewed
[2023-09-10 12:21] LABS: Pathologist Review Reviewed
[2023-09-10 12:34] LABS: Pathologist Review Reviewed
--- NOTE | 2023-09-10 14:27 | PN_ITS ---
Subjective Subjective Patient seen and examined. She is more alert and communicative today. She had no active complaints. SHe was able to tell me where she was; she denied any fever, chills, palpitations, dizziness, nausea, vomiting or any other symptoms. Review of systems was otherwise negative. Objective Data Objective Data Vital Signs: Vital Signs Temp Pulse Resp BP Pulse Ox O2 Del Method O2 Flow Rate 92.4 F L 50 L 18 122/64 H 100 Nasal Cannula 2 09/10/23 14:00 09/10/23 14:00 09/10/23 14:00 09/10/23 14:00 09/10/23 14:00 09/10/23 14:00 09/10/23 14:00 FiO2 30 09/10/23 04:00 Oxygen Flow Rate (L/min) 2 Oxygen Delivery Method Nasal Cannula Weight: 300 lb 14.896 oz Body Mass Index (BMI) 50.1 Intake & Output: Intake and Output for Last 24 Hours 09/08/23 09/09/23 09/10/23 23:59 23:59 23:59 Intake Total 2327.33 / 2327.33 2537.50 / 2537.50 1360 / 1360 Output Total 520 / 520 725 / 825 500 / 500 Balance 1807.33 / 1807.33 1812.50 / 1712.50 860 / 860 Lab / Micro Data 09/10/23 05:00 09/10/23 05:00 Labs: Laboratory Results - last 24 hr 09/08/23 05:30: Diff Path Review Reviewed 09/08/23 16:00: Haptoglobin 101 09/09/23 03:00: Diff Path Review Reviewed 09/09/23 17:38: POC Glucose 115 H 09/10/23 00:00: POC Glucose 120 H 09/10/23 05:00: WBC 3.3 L, RBC 2.70 L, Hgb 7.5 L, Hct 25.8 L, MCV 95.6, MCH 27.8, MCHC 29.1 L, RDW Std Deviation 59.4 H, RDW Coeff of Vlad 17.0 H, Plt Count 33 L*, MPV 11.4, Immature Gran % (Auto) 2.700 H, Neut % (Auto) 55.9, Lymph % (Auto) 24.5, [place] % (Auto) 13.6 H, Eos % (Auto) 3.0, Baso % (Auto) 0.3, Absolute Neuts (auto) 1.9 L, Absolute Lymphs (auto) 0.81 L, Nucleated RBC % 0.6, Diff Path Review Reviewed, Platelet Estimate MKD DEC, Sodium 148 H, Potassium 4.6, Chloride 119 H, Carbon Dioxide 27.0, Anion Gap 2 L, BUN 69 H, Creatinine 4.01 H, Estim Creat Clear Calc 19.30, Est GFR (MDRD) Af Amer 14 L, Est GFR (MDRD) Non-Af 12 L, BUN/Creatinine Ratio 17.2, Glucose 149 H, Calcium 8.1 L 09/10/23 05:30: POC Glucose 128 H 09/10/23 11:46: POC Glucose 151 H Micro: Microbiology 09/07/23 10:24 Blood Culture (Wb) - Anticubital Right Blood Culture - Preliminary No growth in 48 hours. 09/07/23 10:21 Blood Culture (Wb) - Anticubital Left Blood Culture - P reliminary No growth in 48 hours. 09/07/23 10:41 Urine Catheter - Beach Urine Culture - Final Culture exhibits no growth. 09/07/23 10:33 Mucosa - Nose SARS-CoV-2, Influenza & RSV (PCR) - Final Physical Exam Const alert Constitutional Narrative: more alert and communicative today. General Appearance: cooperative and well developed Orientation / Consciousness: awake HEENT normocephalic, head/scalp atraumatic, hearing grossly normal bilaterally and moist oral mucous membranes Eyes PERRL, EOMs intact bilaterally and conjunctivae normal Neck no lymphadenopathy, supple, no JVD, thyroid normal and no carotid bruits General: trachea midline Lymph Lymphatic: no lymphadenopathy noted Resp Resp Narrative: mildly diminished breath sounds bilaterally, no wheezes or crackles. On 2 L of oxygen. Auscultation: Negative for rales, rhonchi or wheezes Cardio regular rate, regular rhythm, S1 normal heart sound, S2 normal heart sound, no murmurs, no rub and no gallops GI normal to inspection, nondistended, normoactive bowel sounds, soft to palpation, non-tender and non-distended GI Narrative: has mild erythema in the intertriginous folds. Extremity normal capillary refill and no clubbing, cyanosis or edema Skin no rashes or lesions noted Skin Narrative: erythema in the intertriginous folds General Skin Exam: no breakdown Neuro CN's II-XII intact bilaterally, no focal motor deficits and no sensory deficits noted Neuro Narrative: confused, lethargic, restless. Sensorium / Orientation: awake Speech: speech normal Motor Exam: general weakness Psych thought process normal and cooperative Mood & Affect: flat affect Assessment & Plan Assessment/Plan (1) Respiratory failure with hypoxia and hypercapnia: (2) MSSA bacteremia: PLAN: Plan #Acute on chronic hypoxic and hypercapnic respiratory failure * on 2L of oxygen by nasal canula * more alert and communicative * CT brain on admission showed no acute intracranial pathology * urine tox was negative * critical care on board. * breathing treatment with bronchodilators * titrate oxygen to maintain sats >90% * on empiric antibiotics * blood cultures and urine cultures negative. * #GASTON on CKD with hyperkalemia * Cr still elevated at 4.01 today, though it has trended down very slightly. Hyperkalemia has resolved. * Baseline Cr is ~ 1.5-1.7 * management as per nephrology * insert beach catheter. * * #UTI * urinalysis showed evidence of UTI * on IV zosyn. Urine cultures negative. * #MSSA bacteremia: hd been on zyvox in hr SNF. Now on IV zosyn. #Thrombocytopenia: * platelets are down further down to 33 today, from 42 yesterday..Platelets have been low since the beginning of this month. * In light of patient's altered mental status and confusion, low platelets and kidney impairment, TTP is a possibility. * She was also discharged on zyvox which can cause thrombocytopenia and will explain it. * hematology consulted due to worsening thrombocytopenia and appearance of schi stocytes on the peripheral smear. Per hematology, it appears to be more of bite cells, not schistocytes. Per hematology, to transfuse platelets if <10k #Acute on chronic Anemia: * Hb remains 7.5 * transfuse if Hb <7. Has chronic anemia. Will monitor #Hypernatremia: sodium remains 148. Likely due to IVF hydration. management as per nephrology #Super morbid obesity: BMI is 50. Complicates acute care, expected recovery and prognosis. #TYpe 2 diabetes mellitus: on ISS. Accuchecks ACHS. #Hypothyroidism: on synthroid. TSH elevated at 25,but it appears her TSH has been chronically elevated and is now even lower than previously. On IV synthroid DVT prophylaxis; SCDs. Charges/Coding Visit Charges Inpatient E&M: 32450 Subs Hosp L3
[2023-09-10 16:40] LABS: Bedside Glucose 141 mg/dL (74-106)
[2023-09-10] MEDS: Atorvastatin Calcium 10 MG Tablet PO (20:59)
[2023-09-10] MEDS: Pramipexole Di-HCl 0.5 MG Tablet 1.5 MG PO (20:59)
[2023-09-10] MEDS: Omega-3 Acid Ethyl Esters 1 GM Capsule PO (20:59)
[2023-09-10] MEDS: Sucralfate 1 GM Tablet PO (21:00)
[2023-09-10 21:49] LABS: Bedside Glucose 123 mg/dL (74-106)
[2023-09-11] VITALS (10 sets, daily range): BP systolic 109–126; BP diastolic 62–69; PULSE 42–54; RESP 12–18; TEMP 35.7–36; O2SAT 96–100; BMI 51.6
[2023-09-11] MEDS: Morphine 2 MG/ML Syringe 1 MG IV (01:34)
[2023-09-11] MEDS: 0.9% Saline Lock 10 ML Syringe IV (01:35)
[2023-09-11] MEDS: oxyCODONE 5 MG Tablet PO (01:35)
--- NOTE | 2023-09-11 01:41 | NURSING ---
Pt complaining of 10/10 right thigh burning pain that goes down to her knee. Skin in that area is intact, pink, WNL; no erythema, no wounds. PRN 1mg IV morphine and 5mg PO oxycodone given. Ice pack applied to leg.
[2023-09-11] MEDS: Dextrose 5%-Water (1000mL Bag) 1,000 ML 75 ML IV ×2 (06:25→18:47)
[2023-09-11] MEDS: Nystatin Powder 15gm Bottle 1 APPLIC TOPICAL ×3 (06:26→20:27)
[2023-09-11] MEDS: Levothyroxine 150 MCG Tablet PO (06:26)
[2023-09-11 06:48] LABS: Bedside Glucose 141 mg/dL (74-106)
[2023-09-11 07:40] LABS: Absolute Lymphocyte Count 0.73 X10^3/uL (0.83-4.51); Absolute Neutrophil Count 2.4 X10^3/uL (2.0-7.7); Basophil# 0.01 X10^3/uL; Basophil% 0.3 % (0-1); Eosinophil# 0.12 X10^3/uL; Eosinophils% 3.2 % (0-5); Hematocrit 27.4 % (37-47); Hemoglobin 7.9 g/dL (12.0-15.0); Lymphocyte # 0.73 X10^3/ul (0.83-4.51); Lymphocyte % 19.6 % (19-41); Mean Corp Hgb Conc 28.8 g/dL (32-36); Mean Corpuscular Hgb 27.4 pg (27.0-32.0); Mean Corpuscular Volume 95.1 fL (81-99); Mean Platelet Vol. 13.1 fl (6.2-12.0); Monocyte# 0.33 X10^3/uL; Monocyte% 8.9 % (0-10); NRBC Flagged by Analyzer 0.5 % (0-5); Neutrophil # 2.41 X10^3/uL (2.7-7.7); Neutrophil % 64.8 % (47-70); POSITIVE COUNT YES; RBC Distribution Width CV 16.3 % (11.6-14.6); RBC Distribution Width SD 57.4 fl (35.1-43.9); Red Blood Count 2.88 M/mm3 (4.2-5.4); White Blood Count 3.7 K/mm3 (4.4-11.0)
[2023-09-11 07:47] LABS: Platelet Count 36 K/mm3 (150-450)
[2023-09-11 08:01] LABS: Anion Gap 1 (5-15); BUN 71 mg/dL (7-18); BUN/Creat Ratio 18.5 RATIO (10-20); Calcium,Total 8.5 mg/dL (8.5-10.1); Chloride 118 mmol/L (98-107); Creatinine, Serum 3.84 mg/dL (0.55-1.02); EST Glomerular Filtration Rate 13 mL/min (>60); Est Glom Filt Rate - Afr Amer 15 mL/min (>60); Estimated Creatinine Clearance 20.53 ml/min; Glucose 162 mg/dL (74-106); Potassium 4.7 mmol/L (3.5-5.1); Sodium Level 144 mmol/L (136-145)
[2023-09-11] MEDS: Pantoprazole Sodium 40 MG in 0.9% Normal Saline (100mL MB+) 100 ML 330 MG IV ×2 (08:40→21:52)
[2023-09-11] MEDS: Fenofibrate 48 MG Tablet PO (08:43)
[2023-09-11] MEDS: Omega-3 Acid Ethyl Esters 1 GM Capsule PO ×2 (08:43→20:26)
[2023-09-11] MEDS: Escitalopram Oxalate 10 MG Tablet PO (08:43)
[2023-09-11] MEDS: Cefazolin 1 GM/50 ML BAG IV ×2 (09:10→20:25)
--- NOTE | 2023-09-11 10:28 | CASEMGMT ---
Patient was approved to return to [facility]. Physician plans on discharging patient tomorrow. Louise updated [facility]. Plan: d/c back to [facility] when medically ready. Varsha BELTRAN
--- NOTE | 2023-09-11 10:58 | PN.RENAL_ITS ---
Subjective Subjective Sitting in chair. Patient was moved out of ICU. More alert and oriented again today. Reports drinking water but states at times has pain when swallowing. Objective Data Objective Data Vital Signs: Vital Signs Temp Pulse Resp BP Pulse Ox O2 Del Method O2 Flow Rate 96.4 F L 49 L 18 122/67 H 96 Nasal Cannula 2 09/11/23 08:17 09/11/23 08:17 09/11/23 08:17 09/11/23 08:17 09/11/23 09:26 09/11/23 08:17 09/11/23 09:26 FiO2 30 09/11/23 05:10 Oxygen Flow Rate (L/min) 2 Oxygen Delivery Method Nasal Cannula Weight: 140.5 kg Body Mass Index (BMI) 51.6 Intake & Output: Intake and Output for Last 24 Hours 09/09/23 09/10/23 09/11/23 23:59 23:59 23:59 Intake Total 2537.50 / 2537.50 2597.5 / 2597.5 1057.5 / 1057.5 Output Total 725 / 825 850 / 850 100 / 100 Balance 1812.50 / 1712.50 1747.5 / 1747.5 957.5 / 957.5 Lab / Micro Data 09/11/23 06:40 09/11/23 06:40 Labs: Laboratory Results - last 24 hr 09/08/23 05:30: Diff Path Review Reviewed 09/09/23 03:00: Diff Path Review Reviewed 09/10/23 05:00: Diff Path Review Reviewed 09/10/23 11:46: POC Glucose 151 H 09/10/23 16:20: POC Glucose 141 H 09/10/23 21:27: POC Glucose 123 H 09/11/23 06:28: POC Glucose 141 H 09/11/23 06:40: WBC 3.7 L, RBC 2.88 L, Hgb 7.9 L, Hct 27.4 L, MCV 95.1, MCH 27.4, MCHC 28.8 L, RDW Std Deviation 57.4 H, RDW Coeff of Vlad 16.3 H, Plt Count 36 L*, MPV 13.1 H, Immature Gran % (Auto) 3.200 H, Neut % (Auto) 64.8, Lymph % (Auto) 19.6, [place] % (Auto) 8.9, Eos % (Auto) 3.2, Baso % (Auto) 0.3, Absolute Neuts (auto) 2.4, Absolute Lymphs (auto) 0.73 L, Nucleated RBC % 0.5, Sodium 144, Potassium 4.7, Chloride 118 H, Carbon Dioxide 25.0, Anion Gap 1 L, BUN 71 H , Creatinine 3.84 H, Estim Creat Clear Calc 20.53, Est GFR (MDRD) Af Amer 15 L, Est GFR (MDRD) Non-Af 13 L, BUN/Creatinine Ratio 18.5, Glucose 162 H, Calcium 8.5 Micro: Microbiology 09/07/23 10:24 Blood Culture (Wb) - Anticubital Right Blood Culture - Preliminary No growth in 48 hours. 09/07/23 10:21 Blood Culture (Wb) - Anticubital Left Blood Culture - Preliminary No growth in 48 hours. 09/07/23 10:41 Urine Catheter - Beach Urine Culture - Final Culture exhibits no growth. 09/07/23 10:33 Mucosa - Nose SARS-CoV-2, Influenza & RSV (PCR) - Final Physical Exam Narrative Alert to person and place no obvious distress s1s2 no murmurs lungs clear anteriorly and posteriorly abdomen soft, nontender no pitting edema beach + Assessment & Plan Assessment/Plan (1) GASTON (acute kidney injury): PLAN: Plan Acute kidney injury superimposed on CKD. History of CKD stage IV, creatinine has been around 1.5-2 with several fluctuations. In June 2023 serum creatinine ranging around 2.3 to 2.6 mg/dL. On the day of discharge, her creatinine was 1.9 mg/dL on September 01. On admission, September 07 creatinine 3.6, creatinine 4.1--> creatinine is 4.0 for few days--> today SCr 3.84. Potassium is normal today, Bicarb normal. Urine output looks to be picking up. Patient is on gentle IV fluids, D5W Recent diagnosis proteinuria, nephrotic range. Immunofixation negative. Other serologies negative. Etiology of GASTON unclear. More alert again today. Heme consult for thrombocytopenia possibly multi factoral, unlikely TTP. platelet counts have been decreasing, LDH and haptoglobin normal Beach catheter indwelling Hyperkalemia; potassium mildly elevated over past 2 weeks ranging 5.3-5.8. Today her potassium is 4.7. Will continue on low potassium diet restrictions. No EKG changes. Does not need Kayexalate today. Recommend for patient to be on low potassium diet once discharged from hospital. There has been some improvement in mentation, urine output seems to be picking up. No acute indication for renal placement therapy at this time however given recurrent GASTON vs some progression of CKD in near future patient may need [employer]NA[employer]. We discussed this with patient's daughter and granddaughter at time of admission. Also discussed this with patient today and she seems to voice understanding. Possible discharge to [facility] tomorrow. Will arrange hospital follow-up.
[2023-09-11] MEDS: Sucralfate 1 GM Tablet PO ×2 (11:09→20:26)
[2023-09-11] MEDS: Insulin Lispro 100 UNIT/ML INSULN.PEN SC (11:10)
[2023-09-11 11:34] LABS: Bedside Glucose 172 mg/dL (74-106)
--- NOTE | 2023-09-11 14:42 | PN_ITS ---
Subjective Subjective Patient seen and examined. She felt much better today. She denied any fever, chills, palpitations, dizziness or shortness of breath. Review of systems otherwise negative. She is down to 2 L of oxygen. Chest remained hemodynamically stable. Objective Data Objective Data Vital Signs: Vital Signs Temp Pulse Resp BP Pulse Ox O2 Del Method O2 Flow Rate 96.4 F L 49 L 18 122/67 H 96 Nasal Cannula 2 09/11/23 08:17 09/11/23 08:17 09/11/23 08:17 09/11/23 08:17 09/11/23 09:26 09/11/23 13:26 09/11/23 13:26 FiO2 30 09/11/23 05:10 Oxygen Flow Rate (L/min) 2 Oxygen Delivery Method Nasal Cannula Weight: 309 lb 11.991 oz Body Mass Index (BMI) 51.6 Intake & Output: Intake and Output for Last 24 Hours 09/09/23 09/10/23 09/11/23 23:59 23:59 23:59 Intake Total 2537.50 / 2537.50 2597.5 / 2597.5 1177.5 / 1177.5 Output Total 725 / 825 850 / 850 200 / 200 Balance 1812.50 / 1712.50 1747.5 / 1747.5 977.5 / 977.5 Lab / Micro Data 09/11/23 06:40 09/11/23 06:40 Labs: Laboratory Results - last 24 hr 09/10/23 16:20: POC Glucose 141 H 09/10/23 21:27: POC Glucose 123 H 09/11/23 06:28: POC Glucose 141 H 09/11/23 06:40: WBC 3.7 L, RBC 2.88 L, Hgb 7.9 L, Hct 27.4 L, MCV 95.1, MCH 2 7.4, MCHC 28.8 L, RDW Std Deviation 57.4 H, RDW Coeff of Vlad 16.3 H, Plt Count 36 L*, MPV 13.1 H, Immature Gran % (Auto) 3.200 H, Neut % (Auto) 64.8, Lymph % (Auto) 19.6, [place] % (Auto) 8.9, Eos % (Auto) 3.2, Baso % (Auto) 0.3, Absolute Neuts (auto) 2.4, Absolute Lymphs (auto) 0.73 L, Nucleated RBC % 0.5, Diff Path Review November foll, Sodium 144, Potassium 4.7, Chloride 118 H, Carbon Dioxide 25.0, Anion Gap 1 L, BUN 71 H, Creatinine 3.84 H, Estim Creat Clear Calc 20.53, Est GFR (MDRD) Af Amer 15 L, Est GFR (MDRD) Non-Af 13 L, BUN/Creatinine Ratio 18.5, Glucose 162 H, Calcium 8.5 09/11/23 11:07: POC Glucose 172 H Micro: Microbiology 09/07/23 10:24 Blood Culture (Wb) - Anticubital Right Blood Culture - Preliminary No growth in 48 hours. 09/07/23 10:21 Blood Culture (Wb) - Anticubital Left Blood Culture - Preliminary No growth in 48 hours. 09/07/23 10:41 Urine Catheter - [place] Urine Culture - Final Culture exhibits no growth. 09/07/23 10:33 Mucosa - Nose SARS-CoV-2, Influenza & RSV (PCR) - Final Physical Exam Const alert, oriented x3 and no apparent distress General Appearance: cooperative Orientation / Consciousness: awake and oriented to person HEENT normocephalic, head/scalp atraumatic, hearing grossly normal bilaterally and moist oral mucous membranes Eyes PERRL, EOMs intact bilaterally and conjunctivae normal Neck no lymphadenopathy, supple, no JVD, thyroid normal and no carotid bruits General: trachea midline Lymph Lymphatic: no lymphadenopathy noted Resp Resp Narrative: mildly diminished breath sounds bilaterally, no wheezes or crackles. On 2 L of oxygen. Auscultation: Negative for rales, rhonchi or wheezes Cardio regular rate, regular rhythm, S1 normal heart sound, S2 normal heart sound, no murmurs, no rub and no gallops GI normal to inspection, nondistended, normoactive bowel sounds, soft to palpation, non-tender and non-distended GI Narrative: has mild erythema in the intertriginous folds. Extremity normal capillary refill and no clubbing, cyanosis or edema Skin no rashes or lesions noted Skin Narrative: erythema in the intertriginous folds General Skin Exam: no breakdown Neuro CN's II-XII intact bilaterally, no focal motor deficits and no sensory deficits noted Sensorium / Orientation: awake Speech: speech normal Motor Exam: strength 5/5 throughout and general weakness Psych thought process normal and cooperative Mood & Affect: flat affect Assessment & Plan Assessment/Plan (1) Respiratory failure with hypoxia and hypercapnia: (2) MSSA bacteremia: PLAN: Plan #Acute on chronic hypoxic and hypercapnic respiratory failure * on 2L of oxygen by nasal canula * more alert and communicative * CT brain on admission showed no acute intracranial pathology * urine tox was negative * critical care on board. * breathing treatment with bronchodilators * titrate oxygen to maintain sats >90% * on empiric antibiotics * blood cultures and urine cultures negative. * #GASTON on CKD with hyperkalemia * Creatinine down to 3.84 today. Improving slowly. Hyperkalemia has resolved. * Baseline Cr is ~ 1.5-1.7 * management as per nephrology * * #UTI * urinalysis showed evidence of UTI * on IV zosyn. Urine cultures negative. * #MSSA bacteremia: had been on zyvox in hr SNF. Now on IV zosyn. #Thrombocytopenia: * Platelets slightly up to 36 today. WIll monitor closely. * She was also discharged on zyvox which can cause thrombocytopenia and will explain it. * hematology consulted due to worsening thrombocytopenia and appearance of schistocytes on the peripheral smear. Per hematology, it appears to be more of bite cells, not schistocytes. Per hematology, to transfuse platelets if <10k #Acute on chronic Anemia: * Hb is 7.9 today * transfuse if Hb <7. Has chronic anemia. Will monitor #Hypernatremia:resolved. #Super morbid obesity: BMI is 50. Complicates acute care, expected recovery and prognosis. #TYpe 2 diabetes mellitus: on ISS. Accuchecks ACHS. #Hypothyroidism: on synthroid. TSH elevated at 25,but it appears her TSH has been chronically elevated and is now even lower than previously. On IV synthroid DVT prophylaxis; SCDs. Charges/Coding Visit Charges Inpatient E&M: 76811 Subs Hosp L2
[2023-09-11 17:17] LABS: Bedside Glucose 145 mg/dL (74-106)
[2023-09-11] MEDS: Atorvastatin Calcium 10 MG Tablet PO (20:26)
[2023-09-11] MEDS: Pramipexole Di-HCl 0.5 MG Tablet 1.5 MG PO (20:27)
[2023-09-11 20:52] LABS: Bedside Glucose 137 mg/dL (74-106)
[2023-09-12] VITALS (7 sets, daily range): BP systolic 117–123; BP diastolic 60–70; PULSE 40–57; RESP 12–18; TEMP 35.7–36.1; O2SAT 94–100; BMI 51.7
[2023-09-12] MEDS: oxyCODONE 5 MG Tablet PO (02:43)
[2023-09-12] MEDS: Morphine 2 MG/ML Syringe 1 MG IV (05:29)
[2023-09-12] MEDS: 0.9% Saline Lock 10 ML Syringe IV ×2 (05:30→09:49)
[2023-09-12] MEDS: Nystatin Powder 15gm Bottle 1 APPLIC TOPICAL ×3 (05:33→20:30)
[2023-09-12] MEDS: Levothyroxine 150 MCG Tablet PO (05:33)
[2023-09-12 05:51] LABS: Hemoglobin 7.5 g/dL (12.0-15.0); Mean Corpuscular Hgb 28.1 pg (27.0-32.0); Mean Corpuscular Volume 93.6 fL (81-99); Mean Platelet Vol. 13.4 fl (6.2-12.0); POSITIVE COUNT YES; POSITIVE DIFFERENTIAL YES; POSITIVE MORPHOLOGY YES; RBC Distribution Width CV 16.1 % (11.6-14.6); RBC Distribution Width SD 54.9 fl (35.1-43.9); Red Blood Count 2.67 M/mm3 (4.2-5.4); White Blood Count 3.5 K/mm3 (4.4-11.0)
[2023-09-12 06:12] LABS: Anion Gap 2 (5-15); BUN 69 mg/dL (7-18); BUN/Creat Ratio 18.8 RATIO (10-20); Calcium,Total 8.3 mg/dL (8.5-10.1); Chloride 114 mmol/L (98-107); Creatinine, Serum 3.67 mg/dL (0.55-1.02); EST Glomerular Filtration Rate 13 mL/min (>60); Est Glom Filt Rate - Afr Amer 16 mL/min (>60); Estimated Creatinine Clearance 21.52 ml/min; Glucose 176 mg/dL (74-106); Potassium 4.7 mmol/L (3.5-5.1); Sodium Level 141 mmol/L (136-145)
[2023-09-12] MEDS: Insulin Lispro 100 UNIT/ML INSULN.PEN SC ×3 (06:32→20:45)
[2023-09-12 06:59] LABS: Differential Indicated MANUAL DIFF; Platelet Count 33 K/mm3 (150-450)
[2023-09-12 07:00] LABS: Bedside Glucose 166 mg/dL (74-106)
[2023-09-12] MEDS: Dextrose 5%-Water (1000mL Bag) 1,000 ML 75 ML IV ×2 (08:11→21:23)
--- NOTE | 2023-09-12 08:29 | PCM.PN.INT ---
Assessment & Plan Assessment/Plan (1) Respiratory failure with hypoxia and hypercapnia: PLAN: Plan RECOMMENDATIONS: 1. Continue PAP therapy with sleep. This will need to be continued upon her discharge from the hospital. 2. Supplemental oxygen to maintain saturations at or above 90%. 3. Continue to monitor H&H daily and transfuse if hemoglobin drops below 7 g/dL. 4. Continue twice daily PPI therapy. 5. Encourage incentive spirometer use and mobilize patient as tolerated. 6. Recommend outpatient pulmonary follow-up for further optimization. The patient would benefit from a retitration polysomnogram. 7. Will sign off at this time. Please call with any additional questions. IMPRESSIONS: 1. Acute on chronic combined respiratory failure Once again appears secondary to noncompliance with prescribed PAP therapy. The patient may have an element of alveolar hypoventilation secondary to obesity coupled with known obstructive sleep apnea, for which the patient has been noncompliant with the use of PAP therapy. On several occasions, the patient has been referred to the pulmonary office for further workup and management of her sleep apnea, but has failed to follow-up. She utilizes 2 L/min of supplemental oxygen throughout the day and 4 L/min nightly. For now, recommend continuing PAP therapy with naps and nightly. Continue supplemental oxygen when not on PAP therapy to maintain saturations at or above 90%. It is imperative that patient utilize her BiPAP therapy on a nightly basis while at the [place], to prevent recurrent hospitalizations in the future. 2. Encephalopathy Improved. Most likely metabolic in nature with CO2 retention and uremia contributing. Continue supportive care with PAP therapy. Nephrology is following to assist with medical management of renal failure. Although TSH was elevated, free T4 was normal. 3. Anemia/thrombocytopenia The patient has a history of recurrent upper GI bleeding secondary to gastric ulcer. Continue to monitor H&H daily and transfuse if hemoglobin drops below 7 g/dL. Continue twice daily PPI therapy. The patient was evaluated by hematology who felt that the patient's thrombocytopenia was likely multifactorial with recent sepsis and renal failure contributing. Continue to monitor daily platelet count and transfuse if counts drop below 10,000. 4. Morbid obesity/medical noncompliance/hypertension/diabetes mellitus/hypothyroidism/chronic kidney disease/GERD Complicates care, management, recovery and prognosis. Continue home medications as indicated. The patient's noncompliance with prescribed medical therapy is clearly leading to recurrent hospitalizations. This note was generated with [employer] dictation software. It may contain incorrect words, spelling, and punctuation that were not noted in checking the note before signing. Subjective Subjective The patient was seen and examined at the bedside this morning. Events from the last 24 hours have been reviewed. The patient is currently afebrile, hemodynamically stable and maintaining appropriate oxygen saturations on 2 L/min via nasal cannula. The patient continues to report diffuse musculoskeletal pain. Hemoglobin is stable this morning at 7.5 g/dL. Platelet count remains low at 33,000. Creatinine has improved to 3.67. Objective Data Objective Data The patient's most recent lab work, culture data and imaging studies have all been personally reviewed. Blood and urine cultures have not demonstrated any growth to date. Vital Signs: Vital Signs Temp Pulse Resp BP Pulse Ox O2 Del Method O2 Flow Rate 96.3 F L 57 L 16 123/60 H 98 Nasal Cannula 2 09/12/23 02:40 09/12/23 02:40 09/12/23 02:40 09/12/23 02:40 09/12/23 02:40 09/12/23 07:16 09/12/23 07:16 FiO2 30 09/12/23 02:53 Oxygen Flow Rate (L/min) 2 Oxygen Delivery Method Nasal Cannula Weight: 310 lb 10.101 oz Body Mass Index (BMI) 51.7 Intake & Output: Intake and Output for Last 24 Hours 09/10/23 09/11/23 09/12/23 23:59 23:59 23:59 Intake Total 2597.5 / 2597.5 2685.0 / 2685.0 1050 / 1050 Output Total 850 / 850 625 / 625 100 / 100 Balance 1747.5 / 1747.5 2060.0 / 2060.0 950 / 950 Lab / Micro Data Attestation: I reviewed the patient's lab results. 09/12/23 04:45 09/12/23 04:45 Labs: Laboratory Results - last 24 hr 09/11/23 06:40: Diff Path Review November09/11/23 11:07: POC Glucose 172 H 09/11/23 16:59: POC Glucose 145 H 09/11/23 20:34: POC Glucose 137 H 09/12/23 04:45: WBC 3.5 L, RBC 2.67 L, Hgb 7.5 L, Hct 25.0 L, MCV 93.6, MCH 28.1, MCHC 30.0 L, RDW Std Deviation 54.9 H, RDW Coeff of Vlad 16.1 H, Plt Count 33 L*, MPV 13.4 H, Neut % (Auto) Not Reportable, Sodium 141, Potassium 4.7, Chloride 114 H, Carbon Dioxide 25.0, Anion Gap 2 L, BUN 69 H, Creatinine 3.67 H, Estim Creat Clear Calc 21.52, Est GFR (MDRD) Af Amer 16 L, Est GFR (MDRD) Non-Af 13 L, BUN/Creatinine Ratio 18.8, Glucose 176 H, Calcium 8.3 L 09/12/23 06:31: POC Glucose 166 H Micro: Microbiology 09/07/23 10:24 Blood Culture (Wb) - Anticubital Right Blood Culture - Preliminary No growth in 48 hours. 09/07/23 10:21 Blood Culture (Wb) - Anticubital Left Blood Culture - Preliminary No growth in 48 hours. 09/07/23 10:41 Urine Catheter - [place] Urine Culture - Final Culture exhibits no growth. 09/07/23 10:33 Mucosa - Nose SARS-CoV-2, Influenza & RSV (PCR) - Final ABG Data ABG results: ABG 09/07/23 09/08/23 14:07 09:56 Specimen Type ART Sample Site R Radial pH 7.30 L Bicarbonate Actual 25.7 Total CO2 27 Base Excess -1 O2 Saturation TNP 97 O2 % 3.0 ABG pCO2 52.6 H ABG pO2 TNP 106 H Madi Test Positive O2 Delivery Device Cannula Vent Mode Not entered Physical Exam Const alert, oriented x3 and no apparent distress General Appearance: cooperative HEENT normocephalic and head/scalp atraumatic Eyes PERRL and EOMs intact bilaterally Neck supple General: trachea midline Chest inspection of chest normal Resp normal respiratory effort Auscultation: diminished lung sounds; Negative for rales, rhonchi or wheezes Cardio regular rate and regular rhythm GI normal to inspection, nondistended, normoactive bowel sounds Extremity no clubbing, cyanosis or edema Skin no rashes or lesions noted Neuro CN's II-XII intact bilaterally and no focal motor deficits Psych cooperative Charges/Coding Visit Charges Inpatient E&M: 44702 Subs Hosp L2
[2023-09-12] MEDS: Cefazolin 1 GM/50 ML BAG IV ×2 (08:45→20:38)
[2023-09-12] MEDS: Omega-3 Acid Ethyl Esters 1 GM Capsule PO ×2 (08:46→20:30)
[2023-09-12] MEDS: Escitalopram Oxalate 10 MG Tablet PO (08:46)
[2023-09-12] MEDS: Fenofibrate 48 MG Tablet PO (08:46)
[2023-09-12 08:59] LABS: Myelocyte 1 % (0-0); Neutrophil-Band 4 % (0-5); Neutrophil-Segmented 70 % (47-70); Promyelocyte 1 % (0-0); Total Cells Counted 100 (MANUAL DIFF)
[2023-09-12 09:00] LABS: Anisocytosis 1+; Atypical Lymphocyte 1+ %; Eosinophil 3 % (0-5); Lymphocyte 18 % (19-41); Monocyte 3 % (0-10); Nucleated Red Bld Cells,Manual 2 % (0-5); Platelet Estimate MKD DEC (ADEQ); Reactive Lymphocyte 1+; Red Cell Morphology N CHROM NORMAL (NORM C&C)
[2023-09-12 09:02] LABS: Absolute Lymphocyte Count 0.62 X10^3/uL (0.83-4.51); Absolute Neutrophil Count 2.6 X10^3/uL (2.0-7.7)
[2023-09-12 09:15] LABS: Pathologist Review Reviewed
[2023-09-12] MEDS: Pantoprazole Sodium 40 MG in 0.9% Normal Saline (100mL MB+) 100 ML 330 MG IV ×2 (09:49→21:53)
[2023-09-12] MEDS: Sucralfate 1 GM Tablet PO ×2 (11:32→20:29)
--- NOTE | 2023-09-12 11:39 | PN_ITS ---
Subjective Subjective Patient seen and examined. She had no active complaints and had an uneventful night. Review of systems is otherwise negative. She has remained hemodynamically stable. Objective Data Objective Data Vital Signs: Vital Signs Temp Pulse Resp BP Pulse Ox O2 Del Method O2 Flow Rate 96.4 F L 49 L 18 119/60 98 Room Air 2 09/12/23 08:40 09/12/23 08:40 09/12/23 08:40 09/12/23 08:40 09/12/23 10:35 09/12/23 08:40 09/12/23 10:35 FiO2 30 09/12/23 02:53 Oxygen Flow Rate (L/min) 2 Oxygen Delivery Method Room Air Weight: 310 lb 10.101 oz Body Mass Index (BMI) 51.7 Intake & Output: Intake and Output for Last 24 Hours 09/10/23 09/11/23 09/12/23 23:59 23:59 23:59 Intake Total 2597.5 / 2597.5 2685.0 / 2685.0 1450 / 1450 Output Total 850 / 850 625 / 625 600 / 600 Balance 1747.5 / 1747.5 2060.0 / 2060.0 850 / 850 Lab / Micro Data 09/12/23 04:45 09/12/23 04:45 Labs: Laboratory Results - last 24 hr 09/11/23 06:40: Diff Path Review Reviewed 09/11/23 16:59: POC Glucose 145 H 09/11/23 20:34: POC Glucose 137 H 09/12/23 04:45: WBC 3.5 L, RBC 2.67 L, Hgb 7.5 L, Hct 25.0 L, MCV 93.6, MCH 28.1, MCHC 30.0 L, RDW Std Deviation 54.9 H, RDW Coeff of Vlad 16.1 H, Plt Count 33 L*, MPV 13.4 H, Neut % (Auto) Not Reportable, Absolute Neuts (auto) 2.6, Absolute Lymphs (auto) 0.62 L, Total Counted 100, Neutrophils % (Manual) 70, Band Neutrophils % 4, Lymphocytes % (Manual) 18 L, Monocytes % (Manual) 3, Eosinophils % (Manual) 3, Myelocytes % 1 H, Promyelocytes % 1 H, Nucleated RBCs/100 WBC 2, Diff Path Review May foll, Atypical Lymphocytes 1+, Reactive Lymphocytes 1+, Platelet Estimate MKD DEC, RBC Morphology N CHROM, Anisocytosis 1+, Sodium 141, Potassium 4.7, Chloride 114 H, Carbon Dioxide 25.0, Anion Gap 2 L, BUN 69 H, Creatinine 3.67 H, Estim Creat Clear Calc 21.52, Est GFR (MDRD) Af Amer 16 L, Est GFR (MDRD) Non-Af 13 L, BUN/Creatinine Ratio 18.8, Glucose 176 H, Calcium 8.3 L 09/12/23 06:31: POC Glucose 166 H Micro: Microbiology 09/07/23 10:24 Blood Culture (Wb) - Anticubital Right Blood Culture - Final No growth in 5 days. 09/07/23 10:21 Blood Culture (Wb) - Anticubital Left Blood Culture - Final No growth in 5 days. 09/07/23 10:41 Urine Catheter - [place] Urine Culture - Final Culture exhibits no growth. 09/07/23 10:33 Mucosa - Nose SARS-CoV-2, Influenza & RSV (PCR) - Final Physical Exam Const alert, oriented x3 and no apparent distress Constitutional Narrative: more alert and communicative today. General Appearance: cooperative and well developed Orientation / Consciousness: awake and oriented to person HEENT normocephalic, head/scalp atraumatic, hearing grossly normal bilaterally and moist oral mucous membranes Eyes PERRL, EOMs intact bilaterally and conjunctivae normal Neck no lymphadenopathy, supple, no JVD, thyroid normal and no carotid bruits General: trachea midline Lymph Lymphatic: no lymphadenopathy noted Resp Resp Narrative: mildly diminished breath sounds bilaterally, no wheezes or crackles. On 2L of oxygen. Auscultation: Negative for rales, rhonchi or wheezes Cardio regular rate, regular rhythm, S1 normal heart sound, S2 normal heart sound, no murmurs, no rub and no gallops GI normal to inspection, nondistended, normoactive bowel sounds, soft to palpation, non-tender and non-distended GI Narrative: has mild erythema in the intertriginous folds. Extremity normal capillary refill and no clubbing, cyanosis or edema Skin no rashes or lesions noted Skin Narrative: erythema in the intertriginous folds General Skin Exam: no breakdown Neuro CN's II-XII intact bilaterally, no focal motor deficits and no sensory deficits noted Neuro Narrative: lethargic Sensorium / Orientation: awake Speech: speech normal Motor Exam: strength 5/5 throughout and general weakness Psych thought process normal and cooperative Assessment & Plan Assessment/Plan (1) Respiratory failure with hypoxia and hypercapnia: (2) MSSA bacteremia: PLAN: Plan #Acute on chronic hypoxic and hypercapnic respiratory failure * on 2L of oxygen by nasal canula * more alert and communicative * CT brain on admission showed no acute intracranial pathology * urine tox was negative * critical care on board. * breathing treatment with bronchodilators * titrate oxygen to maintain sats >90% * on empiric antibiotics * blood cultures and urine cultures negative. * #GASTON on CKD with hyperkalemia * Cr is 3.67. * gradually improving. * Baseline Cr is ~ 1.5-1.7 * management as per nephrology * #UTI * urinalysis showed evidence of UTI * on IV zosyn. Urine cultures negative. * #MSSA bacteremia: had been on zyvox in hr SNF. Now on IV zosyn. #Thrombocytopenia: * Platelets are 33 today. Will monitor closely. * She was also discharged on zyvox which can cause thrombocytopenia and will explain it. * hematology consulted due to worsening thrombocytopenia and appearance of schistocytes on the peripheral smear. Per hematology, it appears to be more of bite cells, not schistocytes. Per hematology, to transfuse platelets if <10k #Acute on chronic Anemia: * Hb is 7.5 today * transfuse if Hb <7. * Has chronic anemia. * Will monitor #Hypernatremia:resolved. #Super morbid obesity: BMI is 50. Complicates acute care, expected recovery and prognosis. #TYpe 2 diabetes mellitus: on ISS. Accuchecks ACHS. #Hypothyroidism: on synthroid. TSH elevated at 25,but it appears her TSH has been chronically elevated and is now even lower than previously. On IV synthroid DVT prophylaxis; SCDs. Charges/Coding Visit Charges Inpatient E&M: 67769 Subs Hosp L2
--- NOTE | 2023-09-12 12:03 | PCM.PN.REN ---
Subjective Subjective No new complaints today. Appears more alert, awake. Objective Data Objective Data Vital Signs: Vital Signs Temp Pulse Resp BP Pulse Ox O2 Del Method O2 Flow Rate 96.4 F L 49 L 18 119/60 98 Room Air 2 09/12/23 08:40 09/12/23 08:40 09/12/23 08:40 09/12/23 08:40 09/12/23 10:35 09/12/23 08:40 09/12/23 10:35 FiO2 30 09/12/23 02:53 Oxygen Flow Rate (L/min) 2 Oxygen Delivery Method Room Air Weight: 140.9 kg Body Mass Index (BMI) 51.7 Intake & Output: Intake and Output for Last 24 Hours 09/10/23 09/11/23 09/12/23 23:59 23:59 23:59 Intake Total 2597.5 / 2597.5 2685.0 / 2685.0 1450 / 1450 Output Total 850 / 850 625 / 625 600 / 600 Balance 1747.5 / 1747.5 2060.0 / 2060.0 850 / 850 Lab / Micro Data 09/12/23 04:45 09/12/23 04:45 Labs: Laboratory Results - last 24 hr 09/11/23 06:40: Diff Path Review Reviewed 09/11/23 16:59: POC Glucose 145 H 09/11/23 20:34: POC Glucose 137 H 09/12/23 04:45: WBC 3.5 L, RBC 2.67 L, Hgb 7.5 L, Hct 25.0 L, MCV 93.6, MCH 28.1, MCHC 30.0 L, RDW Std Deviation 54.9 H, RDW Coeff of Vlad 16.1 H, Plt Count 33 L*, MPV 13.4 H, Neut % (Auto) Not Reportable, Absolute Neuts (auto) 2.6, Absolute Lymphs (auto) 0.62 L, Total Counted 100, Neutrophils % (Manual) 70, Band Neutrophils % 4, Lymphocytes % (Manual) 18 L, Monocytes % (Manual) 3, Eosinophils % (Manual) 3, Myelocytes % 1 H, Promyelocytes % 1 H, Nucleated RBCs/100 WBC 2, Diff Path Review May foll, Atypical Lymphocytes 1+, Reactive Lymphocytes 1+, Platelet Estimate MKD DEC, RBC Morphology N CHROM, Anisocytosis 1+, Sodium 141, Potassium 4.7, Chloride 114 H, Carbon Dioxide 25.0, Anion Gap 2 L, BUN 69 H, Creatinine 3.67 H, Estim Creat Clear Calc 21.52, Est GFR (MDRD) Af Amer 16 L, Est GFR (MDRD) Non-Af 13 L, BUN/Creatinine Ratio 18.8, Glucose 176 H, Calcium 8.3 L 09/12/23 06:31: POC Glucose 166 H Micro: Microbiology 09/07/23 10:24 Blood Culture (Wb) - Anticubital Right Blood Culture - Final No growth in 5 days. 09/07/23 10:21 Blood Culture (Wb) - Anticubital Left Blood Culture - Final No growth in 5 days. 09/07/23 10:41 Urine Catheter - [place] Urine Culture - Final Culture exhibits no growth. 09/07/23 10:33 Mucosa - Nose SARS-CoV-2, Influenza & RSV (PCR) - Final Physical Exam Narrative Alert to person and place no obvious distress s1s2 no murmurs lungs clear anteriorly and posteriorly abdomen soft, nontender no pitting edema beach + Assessment & Plan Assessment/Plan (1) GASTON (acute kidney injury): PLAN: Plan Acute kidney injury superimposed on CKD. History of CKD stage IV, creatinine has been around 1.5-2 with several fluctuations. In June 2023 serum creatinine ranging around 2.3 to 2.6 mg/dL. On the day of discharge, her creatinine was 1.9 mg/dL on September 01. On admission, September 07 creatinine 3.6, creatinine 4.1--> creatinine is 4.0 for few days--> today SCr 3.6. Potassium is normal today, Bicarb normal. Urine output looks to be picking up. proteinuria, nephrotic range. Immunofixation negative. Other serologies negative. Heme consult for thrombocytopenia possibly multi factoral, unlikely TTP. platelet counts have been decreasing, LDH and haptoglobin normal. Beach catheter indwelling Hyperkalemia; better today Improving mentation, improving creatinine. No plans for renal replacement therapy Given her advanced CKD and proteinuria, she will likely need to start dialysis soon. We will arrange follow-up as outpatient for access placement etc.
[2023-09-12 12:16] LABS: Bedside Glucose 147 mg/dL (74-106)
--- NOTE | 2023-09-12 13:52 | CASEMGMT ---
Dishcarge Planning [facility] updated that patient would not return today. Requested wknd phone/fax. oLuise King, Discharge Planning Asst.
--- NOTE | 2023-09-12 14:12 | CASEMGMT ---
Patient's pre-cert is good through Friday. Therefore, if patient is not discharged Friday she will have to stay at [facility] until another pre-cert is obtained. Plan: d/c back to when medically ready. Varsha BELTRAN
[2023-09-12] MEDS: Glucerna Shake 120 ML LIQUID PO ×2 (14:21→20:35)
[2023-09-12 17:20] LABS: Bedside Glucose 158 mg/dL (74-106)
[2023-09-12] MEDS: Atorvastatin Calcium 10 MG Tablet PO (20:30)
[2023-09-12] MEDS: Pramipexole Di-HCl 0.5 MG Tablet 1.5 MG PO (20:30)
[2023-09-12 21:33] LABS: Bedside Glucose 154 mg/dL (74-106)
[2023-09-13 02:48] VITALS: BP 112/73; PULSE 44; RESP 18; TEMP 35.7; O2SAT 100
[2023-09-13 02:50] VITALS: RESP 14
[2023-09-13] MEDS: Morphine 2 MG/ML Syringe 1 MG IV (04:41)
[2023-09-13] MEDS: 0.9% Saline Lock 10 ML Syringe IV (04:42)
[2023-09-13 04:52] VITALS: BMI 51.9
[2023-09-13] MEDS: Nystatin Powder 15gm Bottle 1 APPLIC TOPICAL (05:13)
[2023-09-13] MEDS: Levothyroxine 150 MCG Tablet PO (05:13)
[2023-09-13] MEDS: Glucerna Shake 120 ML LIQUID PO (05:14)
[2023-09-13 07:06] LABS: Bedside Glucose 141 mg/dL (74-106)
[2023-09-13 07:15] LABS: Basophil# 0.03 X10^3/uL; Eosinophil# 0.12 X10^3/uL; Hematocrit 25.6 % (37-47); Hemoglobin 7.6 g/dL (12.0-15.0); Mean Corp Hgb Conc 29.7 g/dL (32-36); Mean Corpuscular Hgb 27.3 pg (27.0-32.0); Mean Corpuscular Volume 92.1 fL (81-99); Mean Platelet Vol. 12.6 fl (6.2-12.0); Monocyte# 0.27 X10^3/uL; NRBC Flagged by Analyzer 1.3 % (0-5); POSITIVE COUNT YES; POSITIVE DIFFERENTIAL YES; POSITIVE MORPHOLOGY YES; RBC Distribution Width CV 15.9 % (11.6-14.6); RBC Distribution Width SD 54.1 fl (35.1-43.9); Red Blood Count 2.78 M/mm3 (4.2-5.4); White Blood Count 3.7 K/mm3 (4.4-11.0)
[2023-09-13 07:20] VITALS: O2SAT 97
[2023-09-13 07:23] LABS: Differential Indicated SCAN CRITERIA MET; Platelet Count 31 K/mm3 (150-450)
[2023-09-13 07:35] LABS: Anion Gap 2 (5-15); BUN 68 mg/dL (7-18); BUN/Creat Ratio 18.1 RATIO (10-20); Calcium,Total 8.5 mg/dL (8.5-10.1); Chloride 112 mmol/L (98-107); Creatinine, Serum 3.76 mg/dL (0.55-1.02); EST Glomerular Filtration Rate 13 mL/min (>60); Est Glom Filt Rate - Afr Amer 16 mL/min (>60); Estimated Creatinine Clearance 21.05 ml/min; Glucose 158 mg/dL (74-106); Potassium 4.8 mmol/L (3.5-5.1); Sodium Level 137 mmol/L (136-145)
[2023-09-13 07:53] LABS: Eosinophil 1 % (0-5); Lymphocyte 29 % (19-41); Metamyelocyte 5 % (0-1); Monocyte 3 % (0-10); Myelocyte 1 % (0-0); Neutrophil-Band 3 % (0-5); Neutrophil-Segmented 58 % (47-70)
[2023-09-13 07:54] LABS: Anisocytosis 2+; Hypochromasia 1+; Platelet Estimate MKD DEC (ADEQ)
[2023-09-13 07:55] LABS: Scan Smear per Review Criteria MANUAL DIFF
[2023-09-13 07:56] LABS: Absolute Lymphocyte Count 1.07 X10^3/uL (0.83-4.51); Absolute Neutrophil Count 2.3 X10^3/uL (2.0-7.7); Lymphocyte # 1.07 X10^3/ul (0.83-4.51)
[2023-09-13 08:35] VITALS: BP 104/50; PULSE 49; RESP 18; TEMP 36.1; O2SAT 99
[2023-09-13] MEDS: Fenofibrate 48 MG Tablet PO (08:36)
[2023-09-13] MEDS: Escitalopram Oxalate 10 MG Tablet PO (08:37)
[2023-09-13] MEDS: Omega-3 Acid Ethyl Esters 1 GM Capsule PO (08:37)
[2023-09-13] MEDS: Pantoprazole Sodium 40 MG in 0.9% Normal Saline (100mL MB+) 100 ML 330 MG IV (08:37)
[2023-09-13] MEDS: Cefazolin 1 GM/50 ML BAG IV (11:13)
[2023-09-13] MEDS: Sucralfate 1 GM Tablet PO (11:16)
--- NOTE | 2023-09-13 12:06 | EKG12_ITS ---
Test Reason : Blood Pressure : / mmHG Vent. Rate : 047 BPM Atrial Rate : 047 BPM P-R Int : 266 ms QRS Dur : 096 ms QT Int : 516 ms P-R-T Axes : 008 -19 054 degrees QTc Int : 456 ms Sinus bradycardia with 1st degree A-V block Otherwise normal ECG When compared with ECG of 07-SEP-2023 10:36, No significant change was found Confirmed by ARMANDO KAPADIA, GARCIA ([id number]), web editor HARSHIL CARDONA ([id number]) on 09/15/2023 1:04:45 PM Referred By: ELIZABETH Confirmed By:GARCIA ROBERTS MD
[2023-09-13 12:16] LABS: Bedside Glucose 146 mg/dL (74-106)
--- NOTE | 2023-09-13 13:27 | TREXTCAR_ITS ---
Diet Diet Order/Speech Therapy: 09/10/23 09:58 Diet: Renal - General Food consistency:: Easy to Chew Liquid Consistency:: Regular/Thin Is pt able to select menu?: No Diet Comments: Direct Supervision/Assist Routine Orders/Code Status Enema Type: Fleetz Enema Frequency: Daily PRN Suppository Type: Dulcolax 10mg Suppository Frequency: Daily PRN O2 Frequency: PRN Keep PO Greater than or Equal to (%): 90 Wound(s) abd fold, under breasts: Wound Type: shearing injury under chin: Wound Type: Abrasion Therapies Weight Bearing: Weight bearing as tolerated Physical Therapy: Eval and Treat Occupational Therapy: Eval and Treat Problem/Diagnosis (1) GASTON (acute kidney injury): Status: Acute Code(s): N17.9 - Acute kidney failure, unspecified Plan #Acute on chronic hypoxic and hypercapnic respiratory failure * on 2L of oxygen by nasal canula * more alert and communicative * CT brain on admission showed no acute intracranial pathology * urine tox was negative * critical care on board. * breathing treatment with bronchodilators * titrate oxygen to maintain sats >90% * on empiric antibiotics * blood cultures and urine cultures negative. * #GASTON on CKD with hyperkalemia * Cr is 3.67. * gradually improving. * Baseline Cr is ~ 1.5-1.7 * management as per nephrology * #UTI * urinalysis showed evidence of UTI * on IV zosyn. Urine cultures negative. * #MSSA bacteremia: had been on zyvox in SNF. Now on IV zosyn. #Thrombocytopenia: * Platelets are 33 today. Will monitor closely. * She was also discharged on zyvox which can cause thrombocytopenia and will explain it. * hematology consulted due to worsening thrombocytopenia and appearance of schistocytes on the peripheral smear. Per hematology, it appears to be more of bite cells, not schistocytes. Per hematology, to transfuse platelets if <10k #Acute on chronic Anemia: * Hb is 7.5 today * transfuse if Hb <7. * Has chronic anemia. * Will monitor #Hypernatremia:resolved. #Super morbid obesity: BMI is 50. Complicates acute care, expected recovery and prognosis. #TYpe 2 diabetes mellitus: on ISS. Accuchecks ACHS. #Hypothyroidism: on synthroid. TSH elevated at 25,but it appears her TSH has been chronically elevated and is now even lower than previously. On IV synthroid DVT prophylaxis; SCDs. Allergies/Procedures Done in Hospital Allergies No Known Allergies Allergy (Verified 07/14/23 18:45) Procedures: None Type of Care/Length of Stay Estimated LOS: Convalescent Care Less Than 30 days Type of Care Needed: Skilled Rehab Potential: Fair Prognosis: Fair Additional Orders/Day of Discharge Day of Discharge: 09/13/23 Dietary and Speech Recommendations Dietitian Recommendations/Changes: continue renal general diet as tolerated- texture/consistency per [employer]; will offer 120mL glucerna TID d/t poor PO intake and adjust diet/ONS as appropriate Discharge Plan Admission Admit Date/Time: 09/07/23 12:32 Primary Reason for Your Visit: worsening CKD. Attending Provider: Angelina Parker Primary Care Provider: Lulu Luna [employer] Consulting Providers: Geo Sharp; Jose Luis Lechuga; Justin Marinelli; Gaurav Albrecht; Raine Oconnor; Tobias Maria; Haider Bruce; Amado Her; Dane Eng; Judy Mixon [employer] Instructions Patient Instructions: Kidney Failure Healthcare Team, ED Chronic Kidney Disease (CKD) Discharge Orders/Prescriptions Prescriptions: Continued levothyroxine 150 mcg tablet 150 mcg PO DAILY@0600 atorvastatin 10 mg Tablet 10 mg PO DAILY escitalopram oxalate 10 mg Tablet 10 mg PO DAILY fenofibrate nanocrystallized [Tricor] 48 mg Tablet 48 mg PO DAILY gabapentin 100 mg capsule 200 mg PO BID Patient Comments: Takes morning and afternoon ropinirole 4 mg tablet 4 mg PO QHS Rx Instructions: administer 1-3 hours before bedtime Trulicity 0.75 mg/0.5 mL pen injector 0.75 mg SUBCUT WE omega [id number] oil [Fish Oil] 300-1,000 mg capsule 1 cap PO BID gabapentin 400 mg capsule 400 mg PO QHS (DME) pen needle, diabetic [Easy Touch] 31 gauge x 1/4 needle MISCELLANEOUS sucralfate [Carafate] 1 gram tablet 1 g PO BID Qty: 60 1RF pantoprazole 40 mg tablet,delayed release (DR/EC) 40 mg PO BID Qty: 60 2RF acetaminophen 325 mg tablet 650 mg PO Q6H PRN (Reason: pain) difluprednate 0.05 % drops 1 drp ophthalmic (eye) 4X/DAY Rx Instructions: BOTH EYES- HAD SHOTS IN HER EYES W BLEEDING BEHIND THEM nystatin [Nystop] 100,000 unit/gram powder 1 applic TOPICAL BID Rx Instructions: APPLY TO GROIN AND UNDER BREASTS insulin glargine-yfgn 100 unit/mL (3 mL) Insulin Pen 13 unit subcut QHS Qty: 0 0RF furosemide 40 mg Tablet 40 mg PO DAILY Qty: 0 0RF insulin lispro [Humalog KwikPen Insulin] 100 unit/mL Insulin Pen 10 unit subcut TIDAC Qty: 0 0RF artificial tears(hypromellose) 0.3 % gel 1 drp EACH EYE Q2H PRN (Reason: dry eye(s)) Discontinued linezolid 600 mg tablet 600 mg PO Q12H 10 Days Qty: 20 0RF Referrals / Follow Up: Jose Luis Lechuga MD [Med Staff - Consulting] - Within 1 Week Gaurav Albrecht MD [Med Staff - Active Staff] - Within 2 Weeks Lulu Luna NP, [employer] [Primary Care Provider] - Within 1 Week Disposition Disposition (needs filled in before D/C Order can be placed): [facility]
--- NOTE | 2023-09-13 13:28 | DS.PCM_ITS ---
Providers Date of Admission: 09/07/23 Date of Discharge: 09/13/23 Primary Care Physician: Lulu Luna, WOODS SUPERINTENDENT-[employer] Consultations 09/08/23 07:27 Consult: Nephrology Routine Consulting Provider: Jose Luis Lechuga Reason for Consult: GASTON on CKD EMERGENT Consult: No Notified: Yes Date Notified: 09/08/23 Time Notified: 07:27 Method of Notification: Text 09/08/23 08:27 Consult: Is Project Manager / Pulmonary Medicine Routine Consulting Provider: Intensivists/Pulmonary Med Reason for Consult: acute hypoxic respiratory failure EMERGENT Consult: No Notified: Yes Date Notified: 09/08/23 Time Notified: 08:27 Method of Notification: Text 09/08/23 17:17 Consult: Oncology/Hematology Routine Consulting Provider: [facility]) Reason for Consult: thrombocytopenia EMERGENT Consult: No Notified: Yes Date Notified: 09/08/23 Time Notified: 17:17 Method of Notification: Text Comments:: informed verbally by hospitalist Reason For Visit: RESPIRATORY FAILURE, METABOLIC ENCEPHALOPATHY, UTI Diagnosis Discharge Diagnosis (1) GASTON (acute kidney injury): Status: Acute Code(s): N17.9 - Acute kidney failure, unspecified Plan #Acute on chronic hypoxic and hypercapnic respiratory failure * on 2L of oxygen by nasal canula * more alert and communicative * CT brain on admission showed no acute intracranial pathology * urine tox was negative * critical care on board. * breathing treatment with bronchodilators * titrate oxygen to maintain sats >90% * on empiric antibiotics * blood cultures and urine cultures negative. * #GASTON on CKD with hyperkalemia * Cr is 3.67. * gradually improving. * Baseline Cr is ~ 1.5-1.7 * management as per nephrology * #UTI * urinalysis showed evidence of UTI * on IV zosyn. Urine cultures negative. * #MSSA bacteremia: had been on zyvox in hr SNF. Now on IV zosyn. #Thrombocytopenia: * Platelets are 33 today. Will monitor closely. * She was also discharged on zyvox which can cause thrombocytopenia and will explain it. * hematology consulted due to worsening thrombocytopenia and appearance of schistocytes on the peripheral smear. Per hematology, it appears to be more of bite cells, not schistocytes. Per hematology, to transfuse platelets if <10k #Acute on chronic Anemia: * Hb is 7.5 today * transfuse if Hb <7. * Has chronic anemia. * Will monitor #Hypernatremia:resolved. #Super morbid obesity: BMI is 50. Complicates acute care, expected recovery and prognosis. #TYpe 2 diabetes mellitus: on ISS. Accuchecks ACHS. #Hypothyroidism: on synthroid. TSH elevated at 25,but it appears her TSH has been chronically elevated and is now even lower than previously. On IV synthroid DVT prophylaxis; SCDs. Medications at Discharge Home Medications atorvastatin 10 mg tablet 10 mg PO DAILY cholesterol 09/24/22 escitalopram oxalate 10 mg tablet 10 mg PO DAILY anxiety 09/24/22 fenofibrate nanocrystallized 48 mg tablet (Tricor) 48 mg PO DAILY cholesterol 09/24/22 gabapentin 100 mg capsule 200 mg PO BID PAIN 03/05/23 levothyroxine 150 mcg tablet 150 mcg PO DAILY@0600 THYROID 03/05/23 ropinirole 4 mg tablet 4 mg PO QHS restless legs 03/05/23 dulaglutide 0.75 mg/0.5 mL subcutaneous pen injector (Trulicity) 0.75 mg subcut WE DIABETES 04/14/23 gabapentin 400 mg capsule 400 mg PO QHS PAIN 04/14/23 omega 1-cyj-den-fish oil 300 mg-1,000 mg capsule (Fish Oil) 1 cap PO BID VITAMIN 04/14/23 pen needle, diabetic 31 gauge x 1/4 (Easy Touch) 04/14/23 pantoprazole 40 mg tablet,delayed release 40 mg PO BID #60 tabs 05/08/23 sucralfate 1 gram tablet (Carafate) 1 g PO BID #60 tabs 05/08/23 acetaminophen 325 mg tablet 650 mg PO Q6H PRN pain 08/26/23 difluprednate 0.05 % eye drops 1 drp ophthalmic (eye) 4X/DAY 08/26/23 nystatin 100,000 unit/gram topical powder (Nystop) 1 applic topical BID 08/26/23 furosemide 40 mg tablet 40 mg PO DAILY #0 tabs 09/01/23 insulin glargine-yfgn 100 unit/mL (3 mL) subcutaneous pen 13 unit (0.13 mL) s ubcut QHS #0 mL 09/01/23 insulin lispro 100 unit/mL subcutaneous pen (Humalog KwikPen (U-100) Insulin) 10 unit (0.1 mL) subcut TIDAC #0 mL 09/01/23 artificial tears(hypromellose) 0.3 % eye gel 1 drp EACH EYE Q2H PRN dry eye(s) 09/07/23 Hospital Course Operations None Procedures 2-D Echocardiogram Summary of Care Provided Minutes Spent on Discharge: 55 Hospital Course: Patient is a 63-year-old female with past medical history as outlined was admitted through the ED on 09/07/2023 with a complaint of lethargy, confusion and generalized weakness. She had recently been admitted and managed for acute on chronic combined respiratory failure with acute on chronic anemia due to recurrent upper GI bleed from gastric ulcer and she also had MSSA bacteremia. She was discharged on p.o. on linezolid for 10-day course. Patient was however brought back on account of the above-mentioned symptoms. She was hyperkalemic on admission with creatinine of 3.61. TSH was elevated at 25.9 and urinalysis showed evidence of UTI. Chest x-ray showed diffuse interstitial infiltrates of both lungs. She was placed on BiPAP and managed for acute hypoxic and hypercapnic respiratory failure as well as UTI and GASTON on CKD. She was initially admitted to the ICU as she required BiPAP. She was placed on IV Zosyn. Nephrology was also consulted. She was also noted to be thrombocytopenic which worsened. Hematology was consulted and felt it was due to acute illness and also have him being on Zyvox. Patient was noted to be bradycardic during this admission. Of note she had very poorly controlled hypothyroidism with TSH of 25 and this was thought to be the cause of her bradycardia. Her heart rate was usually in the mid 40s but was asymptomatic. She was placed on her Synthroid. Free T4 was WNL. TSH had been much higher in the past but had improved to 25. Patient was eventually transferred out of the ICU after she became more alert and communicative. She also had a hyponatremia which resolved after being hydrated with D5 water. Patient was discharged to intermediate facility on 09/13/2023. She is follow-up with her primary care doctor within 1 to 2 weeks. If her bradycardia worsens, she is to call her PCP or come to the ED. she is to follow-up BMP to monitor her platelet levels which is expected to improve with time. Patient was seen and examined prior to discharge. She had no complaints. Review of systems otherwise negative. Labs and vitals reviewed. Home medica tion reviewed and reconciled. Physical Exam Const alert, oriented x3 and no apparent distress Constitutional Narrative: more alert and communicative today. General Appearance: cooperative, comfortable and well developed Orientation / Consciousness: awake and oriented to person HEENT normocephalic, head/scalp atraumatic, hearing grossly normal bilaterally and moist oral mucous membranes Eyes PERRL, EOMs intact bilaterally and conjunctivae normal Neck no lymphadenopathy, supple, no JVD, thyroid normal and no carotid bruits General: trachea midline Lymph Lymphatic: no lymphadenopathy noted Resp Resp Narrative: mildly diminished breath sounds bilaterally, no wheezes or crackles. On 2L of oxygen. Auscultation: Negative for rales, rhonchi or wheezes Cardio regular rhythm, S1 normal heart sound, S2 normal heart sound, no murmurs, no rub and no gallops Cardio Narrative: bradycardic GI normal to inspection, nondistended, normoactive bowel sounds, soft to palpation, non-tender and non-distended GI Narrative: has mild erythema in the intertriginous folds. Extremity normal capillary refill and no clubbing, cyanosis or edema Skin no rashes or lesions noted Skin Narrative: erythema in the intertriginous folds General Skin Exam: no breakdown Neuro CN's II-XII intact bilaterally, moves all extremities, no focal motor deficits and no sensory deficits noted Neuro Narrative: lethargic Sensorium / Orientation: awake and alert Speech: speech normal Motor Exam: strength 5/5 throughout and general weakness Psych thought process normal and cooperative Psych Narrative: Patient is lethargic and confused Mood & Affect: flat affect Weight / BMI Weight Weight: 311 lb 11.738 oz Body Mass Index (BMI) 51.9 ABG / Lab / Microbiology Data 09/13/23 06:40 09/13/23 06:40 Laboratory: Laboratory Results - last 24 hr 09/12/23 16:40: POC Glucose 158 H 09/12/23 20:44: POC Glucose 154 H 09/13/23 06:40: WBC 3.7 L, RBC 2.78 L, Hgb 7.6 L, Hct 25.6 L, MCV 92.1, MCH 27.3, MCHC 29.7 L, RDW Std Deviation 54.1 H, RDW Coeff of Vlad 15.9 H, Plt Count 31 L*, MPV 12.6 H, Immature Gran % (Auto) WO[employer]S SUPERINTENDENT, Neut % (Auto) WO[employer]S SUPERINTENDENT, Lymph % (Auto) WOODS SUPERINTENDENT, Greene % (Auto) WOODS SUPERINTENDENT, Eos % (Auto) WO[employer]S SUPERINTENDENT, Baso % (Auto) WO[employer]S SUPERINTENDENT, Absolute Neuts (auto) 2.3, Absolute Lymphs (auto) 1.07, Total Counted WOODS SUPERINTENDENT, Neutrophils % (Manual) 58, Band Neutrophils % 3, Lymphocytes % (Manual) 29, Monocytes % (Manual) 3, Eosinophils % (Manual) 1, Metamyelocytes % 5 H, Myelocytes % 1 H, Other Cells % 0.60, Nucleated RBC % 1.3, Diff Path Review November, Platelet Estimate MKD DEC, Hypochromasia 1+, Anisocytosis 2+, Sodium 137, Potassium 4.8, Chloride 112 H, Carbon Dioxide 23.0, Anion Gap 2 L, BUN 68 H, Creatinine 3.76 H, Estim Creat Clear Calc 21.05, Est GFR (MDRD) Af Amer 16 L, Est GFR (MDRD) Non-Af 13 L, BUN/ Creatinine Ratio 18.1, Glucose 158 H, Calcium 8.5 09/13/23 06:45: POC Glucose 141 H 09/13/23 11:52: POC Glucose 146 H Microbiology: Microbiology 09/07/23 10:24 Blood Culture (Wb) - Anticubital Right Blood Culture - Final No growth in 5 days. 09/07/23 10:21 Blood Culture (Wb) - Anticubital Left Blood Culture - Final No growth in 5 days. 09/07/23 10:41 Urine Catheter - Lyons Urine Culture - Final Culture exhibits no growth. 09/07/23 10:33 Mucosa - Nose SARS-CoV-2, Influenza & RSV (PCR) - Final D/C Instructions Discharge Diet: Low fat / Low cholesterol Discharge Activity: Return to Normal Activity Meaningful Use Info Meaningful Use Diagnoses (Choose all that apply): None applicable Discharge Plan Admission Admit Date/Time: 09/07/23 12:32 Primary Reason for Your Visit: worsening CKD. Attending Provider: Angelina Parker Primary Care Provider: Lulu Luna WOODS SUPERINTENDENT Consulting Providers: Geo Sharp; Jose Luis Lechuga; Justin Marinelli; Gaurav Albrecht; Raine Oconnor; Tobias Maria; Haider Bruce; Amado Her; Dane Eng; Judy Mixon WOODS SUPERINTENDENT Instructions Patient Instructions: Kidney Failure Healthcare Team, ED Chronic Kidney Disease (CKD) Discharge Orders/Prescriptions Prescriptions: Continued levothyroxine 150 mcg tablet 150 mcg PO DAILY@0600 atorvastatin 10 mg Tablet 10 mg PO DAILY escitalopram oxalate 10 mg Tablet 10 mg PO DAILY fenofibrate nanocrystallized [Tricor] 48 mg Tablet 48 mg PO DAILY gabapentin 100 mg capsule 200 mg PO BID Patient Comments: Takes morning and afternoon ropinirole 4 mg tablet 4 mg PO QHS Rx Instructions: administer 1-3 hours before bedtime Trulicity 0.75 mg/0.5 mL pen injector 0.75 mg SUBCUT WE omega 0-cfs-hfp-fish oil [Fish Oil] 300-1,000 mg capsule 1 cap PO BID gabapentin 400 mg capsule 400 mg PO QHS (DME) pen needle, diabetic [Easy Touch] 31 gauge x 1/4 needle MISCELLANEOUS sucralfate [Carafate] 1 gram tablet 1 g PO BID Qty: 60 1RF pantoprazole 40 mg tablet,delayed release (DR/EC) 40 mg PO BID Qty: 60 2RF acetaminophen 325 mg tablet 650 mg PO Q6H PRN (Reason: pain) difluprednate 0.05 % drops 1 drp ophthalmic (eye) 4X/DAY Rx Instructions: BOTH EYES- HAD SHOTS IN HER EYES W BLEEDING BEHIND THEM nystatin [Nystop] 100,000 unit/gram powder 1 applic TOPICAL BID Rx Instructions: APPLY TO GROIN AND UNDER BREASTS insulin glargine-yfgn 100 unit/mL (3 mL) Insulin Pen 13 unit subcut QHS Qty: 0 0RF furosemide 40 mg Tablet 40 mg PO DAILY Qty: 0 0RF insulin lispro [Humalog KwikPen Insulin] 100 unit/mL Insulin Pen 10 unit subcut TIDAC Qty: 0 0RF artificial tears(hypromellose) 0.3 % gel 1 drp EACH EYE Q2H PRN (Reason: dry eye(s)) Discontinued linezolid 600 mg tablet 600 mg PO Q12H 10 Days Qty: 20 0RF Referrals / Follow Up: Jose Luis Lechuga MD [Med Staff - Consulting] - Within 1 Week Gaurav Albrecht MD [Med Staff - Active Staff] - Within 2 Weeks Lulu Luna WOODS SUPERINTENDENT, WOODS SUPERINTENDENT-C [Primary Care Provider] - Within 1 Week Disposition Disposition (needs filled in before D/C Order can be placed): [facility] Charges/Coding Visit Charges Inpatient E&M: 41115 Disch Hosp >30min
[2023-09-13 14:18] VITALS: BP 107/58; PULSE 48; RESP 18; TEMP 36.6; O2SAT 100
--- NOTE | 2023-09-13 14:33 | NURSING ---
called report to deloris turcios [facility]
[2023-09-15 14:12] LABS: Pathologist Review Reviewed
[2023-09-15 14:13] LABS: Pathologist Review Reviewed
== END 2023-09-13 15:30 | disposition skilled nursing facility (03) | DRG 189 ==
LOC: ED 12:46 → ICU 13:10 → PCU 09-10 17:38
PROVIDERS: Internal Medicine Nephrology; Admitting Provider Internal Medicine; Emergency Provider Emergency Medicine; PCP Nurse Practitioner Adult Health; Visit Provider Student in an Organized Health Care Education/Training Program
DX: J96.21 Acute and chronic respiratory failure with hypoxia (principal); G93.41 Metabolic encephalopathy; D61.818 Other pancytopenia; R78.81 Bacteremia; E87.0 Hyperosmolality and hypernatremia; N17.9 Acute kidney failure, unspecified; I13.0 Hypertensive heart and chronic kidney disease with heart failure and stage 1 through stage 4 chronic kidney disease, or unspecified chronic kidney disease; Z68.42 Body mass index [BMI] 45.0-49.9, adult; I50.32 Chronic diastolic (congestive) heart failure; N39.0 Urinary tract infection, site not specified; E11.22 Type 2 diabetes mellitus with diabetic chronic kidney disease; B95.61 Methicillin susceptible Staphylococcus aureus infection as the cause of diseases classified elsewhere; N18.30 Chronic kidney disease, stage 3 unspecified; J44.9 Chronic obstructive pulmonary disease, unspecified; E66.01 Morbid (severe) obesity due to excess calories; E11.42 Type 2 diabetes mellitus with diabetic polyneuropathy; J96.22 Acute and chronic respiratory failure with hypercapnia; Z79.4 Long term (current) use of insulin; E03.9 Hypothyroidism, unspecified; G25.81 Restless legs syndrome; E78.5 Hyperlipidemia, unspecified; K21.9 Gastro-esophageal reflux disease without esophagitis; G47.33 Obstructive sleep apnea (adult) (pediatric); E87.5 Hyperkalemia; F41.8 Other specified anxiety disorders; R80.9 Proteinuria, unspecified; Z91.199 Patient's noncompliance with other medical treatment and regimen due to unspecified reason; Z99.89 Dependence on other enabling machines and devices; Z99.81 Dependence on supplemental oxygen; Z79.899 Other long term (current) drug therapy; Z79.85 Long-term (current) use of injectable non-insulin antidiabetic drugs; Z98.49 Cataract extraction status, unspecified eye; Z90.49 Acquired absence of other specified parts of digestive tract
CPT/HCPCS: 36415; 36600; 70450; 71045; 72125; 80048; 80053; 80307; 81001; 81002; 82140; 82803; 82962; 83010; 83605; 83615; 83690; 83735; 83880; 84100; 84439; 84443; 84481; 84484; 85025; 85610; 85730; 86850; 86900; 86901; 87040; 87086; 87631; 92526; 92610; 93005; 94002; 94003; 94660; 94762; 97162; 97166; 97530; 97535; 97802; 97803; 99284; J7030; J7040; J7050; A4216

== ENCOUNTER 2023-09-16 08:52 | Inpatient (IN) | payer MEDICARE, MEDICAID, SELFPAY ==
[2023-09-16] VITALS (16 sets, daily range): BP systolic 97–133; BP diastolic 44–65; PULSE 55–66; RESP 14–32; TEMP 35–36.5; O2SAT 86–100; BMI 52.2; BMI 51.5
--- NOTE | 2023-09-16 09:01 | RAD_ITS ---
STUDY: X-RAY CHEST REASON FOR EXAM: Female, 63 years old. Dyspnea TECHNIQUE: Single AP portable view of the chest. COMPARISON: Comparison is made with prior study dated September 07, 2023. FINDINGS: EKG electrodes are seen. Vascular congestion and CHF. Blunting of the costophrenic angles. Prominence of the azygos vein. Cardiomegaly. Normal mediastinum and rebekah. Normal visualized pulmonary arteries. Normal visualized aortic arch and descending thoracic aorta. There are diffuse degenerative changes of the visualized thoracic spine. Normal visualized ribs, clavicles, and shoulders. There is no demonstrated abnormality of the visualized soft tissue structures of the upper abdomen. RAD/Chest 1 View (Portable) IMPRESSION: Cardiomegaly and CHF. Electronically Signed: Maximo Obrien MD at 10:30 EST ,
--- NOTE | 2023-09-16 09:01 | EKG12_ITS ---
Test Reason : SOB Blood Pressure : / mmHG Vent. Rate : 058 BPM Atrial Rate : 058 BPM P-R Int : 190 ms QRS Dur : 092 ms QT Int : 464 ms P-R-T Axes : 000 -09 073 degrees QTc Int : 455 ms Sinus bradycardia Otherwise normal ECG Confirmed by JENNIFER KAPADIA, NHUNG ([id number]), sound editor ROSE KAUFMAN ([id number]) on 09/22/2023 10:06:40 AM Referred By: Confirmed By:LISA RODRIGUEZ MD
[2023-09-16] MEDS: Ipratropium/Albuterol Sulfate 3 ML AMPUL.NEB INHALATION (09:06)
--- NOTE | 2023-09-16 09:06 | EDS_ITS ---
HPI History of Present Illness Chief Complaint: Shortness of Breath Detail of Chief Complaint: Shortness of breath Informant: patient Narrative Narrative: Patient presents the emergency department complaint of shortness of breath. She states that she was admitted and discharged from the hospital recently for respiratory failure and UTI. [facility]. Initially called for hypoglycemia however on EMS arrival her blood glucose was 105. They noted she was tachypneic and pulse ox was 86% on her 4 L. Patient was placed on nonrebreather and transferred to the emergency department. She does describe a cough. She denies any chest pain. She denies fevers. Patient has history of CKD as well as CHF and COPD. [facility] Medical History (Updated 09/16/23 @ 10:[address] Nito Caraballo, ) (HFpEF) heart failure with preserved ejection fraction GASTON (acute kidney injury) Anemia Anxiety Anxiety and depression Chest pain Chronic acquired lymphedema Chronic anemia Chronic kidney disease Chronic kidney disease CKD (chronic kidney disease), stage III Congestive heart failure COPD (chronic obstructive pulmonary disease) CPAP (continuous positive airway pressure) dependence Current use of insulin Diabetes Diabetes mellitus with diabetic polyneuropathy Diabetes mellitus, type 2 Gastroparesis History of diabetes mellitus History of fever History of renal insufficiency History of stress test HLD (hyperlipidemia) HTN (hypertension) Hypothyroidism Hypoxia Irregular heartbeat Lower extremity edema Malaise Morbid obesity On home oxygen therapy SACHIN (obstructive sleep apnea) Pleural effusion, left Pulmonary edema Restless legs Retinal hemorrhage Sleep apnea Home Medications atorvastatin 10 mg tablet 10 mg PO QHS cholesterol 09/24/22 [History Last Taken 04/13/23] escitalopram oxalate 10 mg tablet 10 mg PO DAILY depression 09/24/22 [History Last Taken 04/13/23] fenofibrate nanocrystallized 48 mg tablet (Tricor) 48 mg PO DAILY cholesterol 09/24/22 [History Last Taken 04/13/23] gabapentin 100 mg capsule 200 mg PO BID PAIN 03/05/23 [History Last Taken 04/13/23] levothyroxine 150 mcg tablet 150 mcg PO DAILY@0600 THYROID 03/05/23 [History Last Taken Unknown] ropinirole 4 mg tablet 4 mg PO QHS restless legs 03/05/23 [History Last Taken 05/01/23] dulaglutide 0.75 mg/0.5 mL subcutaneous pen injector (Trulicity) 0.75 mg subcut WE DIABETES 04/14/23 [History Last Taken 08/15/23] gabapentin 400 mg capsule 400 mg PO QHS PAIN 04/14/23 [History Last Taken 04/13/23] omega 6-zqs-qfd-fish oil 300 mg-1,000 mg capsule (Fish Oil) 1 cap PO BID VITAMIN 04/14/23 [History Last Taken 04/13/23] pen needle, diabetic 31 gauge x 1/4 (Easy Touch) 04/14/23 [History Last Taken Unknown] pantoprazole 40 mg tablet,delayed release 40 mg PO BID heartburn #60 tabs 05/08/23 [Rx Last Taken Unknown] sucralfate 1 gram tablet (Carafate) 1 g PO BID heartburn #60 tabs 05/08/23 [Rx Last Taken Unknown] acetaminophen 325 mg tablet 650 mg PO Q6H PRN pain 08/26/23 [History Last Taken Unknown] difluprednate 0.05 % eye drops 1 drp ophthalmic (eye) 4X/DAY bleeding behind eyes 08/26/23 [History Last Taken Unknown] nystatin 100,000 unit/gram topical powder (Nystop) 1 applic topical BID yeast 08/26/23 [History Last Taken Unknown] furosemide 40 mg tablet 40 mg PO DAILY chf #0 tabs 09/01/23 [Rx Last Taken Unknown] insulin glargine-yfgn 100 unit/mL (3 mL) subcutaneous pen 13 unit (0.13 mL) subcut QHS diabetes #0 mL 09/01/23 [Rx Last Taken Unknown] insulin lispro 100 unit/mL subcutaneous pen (Humalog KwikPen (U-100) Insulin) 10 unit (0.1 mL) subcut TIDAC diabetes #0 mL 09/01/23 [Rx Last Taken Unknown] artificial tears(hypromellose) 0.3 % eye gel 1 drp EACH EYE Q2H PRN dry eye(s) 09/07/23 [History Last Taken Unknown] flash glucose sensor (FreeStyle [place] 2 Sensor kit) 09/16/23 [History Last Taken Unknown] Allergy/AdvReac Type Severity Reaction Status Date / Time No Known Allergies Allergy Verified 09/16/23 08:52 Family History Mother Heart disease Hypertension Diabetes Father Prostate cancer Surgical History H/O cataract removal with insertion of prosthetic lens History of cholecystectomy History of surgery on lower extremity Social History housing: penitentiary Smoking Status: Never smoker alcohol intake: never substance use type: does not use ROS ROS ED Review of Systems ROS Unobtainable: other Constitutional Constitutional ED: Reports lethargy; Denies chills, fever(s), sweats or weight loss Eyes Eyes: Denies blurry vision, change in vision or diplopia ENT ENT ED: Denies rhinorrhea or sore throat Cardiovascular Cardiovascular: Denies chest pain, orthopnea or racing heartbeat Respiratory/Chest Respiratory/Chest: Reports cough, dyspnea and dyspnea on exertion; Denies orthopnea or sputum Gastrointestinal Gastrointestinal: Denies abdominal pain, diarrhea, nausea or vomiting Genitourinary Genitourinary ED: Denies dysuria, hematuria or urinary frequency Musculoskeletal Musculoskeletal: Denies arthralgias, back pain, myalgias or neck pain Integumentary Denies abscess, Abrasions or rash Neurologic Neurologic: Denies headache(s) or weakness Psychiatric Psychiatric: Denies anxiety, depression or suicidal thoughts Endocrine Endocrinology: Denies polydipsia, polyphagia or polyuria Hematologic/Lymphatic Hematologic/Lymphatic: Denies easy bleeding, easy bruising or lymphadenopathy Allergic/Immunologic Allergic/Immunologic ED: Denies mouth swelling, tongue swelling or urticaria EXAM Physical Exam Const Vital Signs: 09/16/23 08:54 09/16/23 08:58 09/16/23 09:01 Temperature 95.7 F L 95.7 F L Temperature Source Temporal Temporal Pulse Rate 64 64 Respiratory Rate 32 H 32 H Respiratory Effort Short of Breath Respiratory Pattern Tachypnea Blood Pressure 97/56 L 97/56 L Blood Pressure Mean 69 69 Pulse Ox 93 96 Oxygen Delivery Method Nasal Cannula Nasal Cannula Nasal Cannula Oxygen Flow Rate (L/min) 6 09/16/23 09:25 09/16/23 09:27 09/16/23 09:26 Temperature Temperature Source Pulse Rate 59 L 59 L Respiratory Rate 20 H 16 Respiratory Effort Respiratory Pattern Blood Pressure 133/64 H Blood Pressure Mean 87 Pulse Ox 96 Oxygen Delivery Method Nasal Cannula Nasal Cannula Oxygen Flow Rate (L/min) 6 09/16/23 10:00 09/16/23 10:40 09/16/23 11:00 Temperature 95.7 F L 95.8 F L 95.8 F L Temperature Source Temporal Temporal Temporal Pulse Rate 60 60 60 Respiratory Rate 19 H 20 H 20 H Respiratory Effort Respiratory Pattern Blood Pressure 113/61 118/44 L 118/44 L Blood Pressure Mean 78 68 68 Pulse Ox 90 92 92 Oxygen Delivery Method Nasal Cannula Nasal Cannula Nasal Cannula Oxygen Flow Rate (L/min) 5 5 5 Positive well nourished and well developed General Appearance ED: well developed and NAD HEENT Reports TM's clear and dry mucous membranes normocephalic and atraumatic; Negative for trauma or tenderness Tympanic Membrane ED: Yes TM's clear Mouth ED: Yes dry mucous membranes Mouth: dry mucous membranes Eyes PERRL and EOMs intact bilaterally General Eye ED: Negative for pale conjunctiva or scleral icterus Neck no lymphadenopathy, supple and no JVD General: Negative for tenderness Chest Wall inspection of chest normal and palpation of chest normal Chest: Negative for tenderness Resp normal respiratory effort Resp Narrative: Diminished breath sounds in the right lower lobe with few rales. She has some f aint expiratory wheezes bilaterally. Mild tachypnea. No accessory muscle use or retractions. Effort and Inspection: Negative for respiratory distress or pain with movement Auscultation: Negative for rhonchi, wheezes or diminished lung sounds Cardio regular rate, regular rhythm, S1 normal heart sound, S2 normal heart sound and no murmurs Peripheral Pulses: pulses 2+ throughout GI normal to inspection, nondistended, normoactive bowel sounds, soft to palpation, non-tender, non-distended and no masses Back/Spine no CVA tenderness and no thoracic nor lumbar tenderness Extremity Extremity Narrative: Patient with +2 edema both lower extremities. No cellulitic changes. Neurovascularly intact. General Extremety ED: Yes edema General Extremity: edema Neuro oriented x3, CN's II-XII intact bilaterally, no sensory deficits noted and gait normal Sensorium / Orientation: awake, alert, oriented to person, oriented to place and oriented to time Motor Exam: strength 5/5 throughout and strength abnormal Psych mental status grossly normal Skin no rashes or lesions noted and no wounds MDM MDM MDM Narrative Medical decision making narrative: Patient presents to the emergency department with complaint of dyspnea. Recent admission for respiratory failure and UTI. IV line as well as cultures and lactate will be ordered. Urinalysis will be ordered. Patient was ordered a DuoNeb aerosol. Basic labs will be obtained as well as EKG. patient initially given a DuoNeb aerosol. Workup shows a normal white blood cell count of 5.4 with hemoglobin 7.5 and platelet count of 24,000. Chemistries unremarkable. BUN elevated 74 and creatinine 3.9 with troponin that was normal at 11 and BNP that was elevated to 21. Chest x-ray shows CHF. I ordered Lasix 80 mg IV. Case will be discussed with hospitalist to evaluate patient for admission for dyspnea and CHF. Lab Data Attestation: I reviewed the patient's lab results. Labs: Laboratory Results - last 24 hr 09/16/23 09:20 WBC 5.4 RBC 2.74 L Hgb 7.5 L Hct 24.7 L MCV 90.1 MCH 27.4 MCHC 30.4 L RDW Std Deviation 52.4 H RDW Coeff of Vlad 16.0 H Plt Count 24 L* MPV 13.2 H Immature Gran % (Auto) 2.600 H Neut % (Auto) 81.5 H Lymph % (Auto) 5.2 L [place] % (Auto) 8.6 Eos % (Auto) 1.9 Baso % (Auto) 0.2 Absolute Neuts (auto) 4.4 Absolute Lymphs (auto) 0.28 L Nucleated RBC % 0.4 Differential Comment SCANNED Diff Path Review May foll Platelet Estimate MKD DEC Sodium 141 Potassium 5.1 Chloride 115 H Carbon Dioxide 25.0 Anion Gap 1 L BUN 74 H Creatinine 3.90 H Estim Creat Clear Calc 20.36 Est GFR (MDRD) Af Amer 15 L Est GFR (MDRD) Non-Af 12 L BUN/Creatinine Ratio 19.0 Glucose 104 Lactic Acid 0.9 Calcium 8.4 L Troponin I High Sens 11 B-Natriuretic Peptide 221.1 H Radiography Diagnostic Testing: Clinical Impression(s) from Imaging Studies Chest X-Ray 09/16/23 09:01 IMPRESSION: Cardiomegaly and CHF. Electronically Signed: Maximo Obrien MD at 10:30 EST , 1 view chest x-ray obtained interpreted by myself as cardiomegaly with pulmonary congestion. Radiology in agreement felt there was cardiomegaly and CHF. EKG Initial EKG: Attestation: I personally reviewed and interpreted this EKG as follows: Comments: Sinus bradycardia with rate of 58 bpm Discharge Plan Dx/Rx/DC Orders Clinical Impression: CHF (congestive heart failure), Hypoxemia, Dyspnea, CKD (chronic kidney disease), Chronic anemia, Thrombocytopenia Disposition Disposition: Acute Care Hospital [facility] Discharge Date/Time: 09/16/23 12:12
[2023-09-16] MEDS: 0.9% Normal Saline (1000mL) 1,000 ML 150 ML IV (09:19)
[2023-09-16 09:39] LABS: Absolute Lymphocyte Count 0.28 X10^3/uL (0.83-4.51); Absolute Neutrophil Count 4.4 X10^3/uL (2.0-7.7); Basophil# 0.01 X10^3/uL; Basophil% 0.2 % (0-1); Eosinophils% 1.9 % (0-5); Hematocrit 24.7 % (37-47); Hemoglobin 7.5 g/dL (12.0-15.0); Lymphocyte # 0.28 X10^3/ul (0.83-4.51); Lymphocyte % 5.2 % (19-41); Mean Corp Hgb Conc 30.4 g/dL (32-36); Mean Corpuscular Hgb 27.4 pg (27.0-32.0); Mean Corpuscular Volume 90.1 fL (81-99); Mean Platelet Vol. 13.2 fl (6.2-12.0); Monocyte# 0.46 X10^3/uL; Monocyte% 8.6 % (0-10); NRBC Flagged by Analyzer 0.4 % (0-5); Neutrophil # 4.37 X10^3/uL (2.7-7.7); Neutrophil % 81.5 % (47-70); POSITIVE COUNT YES; POSITIVE DIFFERENTIAL YES; RBC Distribution Width SD 52.4 fl (35.1-43.9); Red Blood Count 2.74 M/mm3 (4.2-5.4); White Blood Count 5.4 K/mm3 (4.4-11.0)
[2023-09-16 09:49] LABS: Differential Indicated SCAN CRITERIA MET; Platelet Count 24 K/mm3 (150-450)
[2023-09-16 10:00] LABS: Lactic Acid 0.9 mmol/L (0.4-1.9)
[2023-09-16 10:02] LABS: Anion Gap 1 (5-15); BUN 74 mg/dL (7-18); Calcium,Total 8.4 mg/dL (8.5-10.1); Chloride 115 mmol/L (98-107); EST Glomerular Filtration Rate 12 mL/min (>60); Est Glom Filt Rate - Afr Amer 15 mL/min (>60); Estimated Creatinine Clearance 20.36 ml/min; Glucose 104 mg/dL (74-106); Potassium 5.1 mmol/L (3.5-5.1); Sodium Level 141 mmol/L (136-145); Troponin-I HS 11 pg/mL (3.0-54.0)
[2023-09-16 10:07] LABS: BNP,B-Type NATRIURETIC PEPTIDE 221.1 pg/mL (0-100)
[2023-09-16 10:16] LABS: Differential Comment SCANNED; Platelet Estimate MKD DEC (ADEQ)
[2023-09-16] MEDS: Furosemide 100 MG/10 ML Vial 80 MG IV (10:45)
--- NOTE | 2023-09-16 11:18 | PCM.HP.STD ---
HPI - General General Date of Admission: 09/16/23 Date of Service: 09/16/23 Chief Complaint: shortness of breath HPI Narrative TOBIN BIGGS, is a 63 F with a PMH as outlined who was admitted via the ED with a complaint of shortness of breath. SHe was recently discharged from the hospital after being admitted and managed for acute on combined respiratory failure due to acute on chronic hypoxic and hypercapnic respiratory failure due to fluid overload in the setting of GASTON on CKD. She was discharged to the residential on 09/13/2023. However she apparently got short of breath today. She was saturating 86% on 4 L of oxygen. She had a cough but denied any chest pain or palpitations, dizziness, nausea vomiting or any other symptoms. Review of systems otherwise negative. Was initially thought that she had hypoglycemia in the residential but on arrival in the ED her blood glucose was 105. Of note, during her previous admission nephrology saw her in light of her increasing creatinine and recommendation was that patient will need to be started on dialysis sooner rather than later. Vitals in the ED where blood pressure 118/44, pulse rate of 60 and respiratory rate of 20. Temperature was 95.8 Fahrenheit and she was saturating at 92% on 5 L of oxygen. CBC showed hemoglobin of 7.5 with WBC of 5.4 and platelets of 24. Chemistry showed sodium of 141 with chloride of 115 and creatinine of 3.9. BNP is 221. Chest x-ray showed evidence of cardiomegaly and CHF. She has been admitted to be managed for hypoxia in the setting of fluid overload from cardiomegaly and CHF and worsening CKD. [facility] Medical History (Updated 09/16/23 @ 10:[address] Nito aCraballo DO) (HFpEF) heart failure with preserved ejection fraction GASTON (acute kidney injury) Anemia Anxiety Anxiety and depression Chest pain Chronic acquired lymphedema Chronic anemia Chronic kidney disease Chronic kidney disease CKD (chronic kidney disease), stage III Congestive heart failure COPD (chronic obstructive pulmonary disease) CPAP (continuous positive airway pressure) dependence Current use of insulin Diabetes Diabetes mellitus with diabetic polyneuropathy Diabetes mellitus, type 2 Gastroparesis History of diabetes mellitus History of fever History of renal insufficiency History of stress test HLD (hyperlipidemia) HTN (hypertension) Hypothyroidism Hypoxia Irregular heartbeat Lower extremity edema Malaise Morbid obesity On home oxygen therapy SACHIN (obstructive sleep apnea) Pleural effusion, left Pulmonary edema Restless legs Retinal hemorrhage Sleep apnea Home Medications atorvastatin 10 mg tablet 10 mg PO QHS cholesterol 09/24/22 [History Last Taken 04/13/23] escitalopram oxalate 10 mg tablet 10 mg PO DAILY depression 09/24/22 [History Last Taken 04/13/23] fenofibrate nanocrystallized 48 mg tablet (Tricor) 48 mg PO DAILY cholesterol 09/24/22 [History Last Taken 04/13/23] gabapentin 100 mg capsule 200 mg PO BID PAIN 03/05/23 [History Last Taken 04/13/23] levothyroxine 150 mcg tablet 150 mcg PO DAILY@0600 THYROID 03/05/23 [History Last Taken Unknown] ropinirole 4 mg tablet 4 mg PO QHS restless legs 03/05/23 [History Last Taken 05/01/23] dulaglutide 0.75 mg/0.5 mL subcutaneous pen injector (Trulicity) 0.75 mg subcut WE DIABETES 04/14/23 [History Last Taken 08/15/23] gabapentin 400 mg capsule 400 mg PO QHS PAIN 04/14/23 [History Last Taken 04/13/23] omega 2-qzc-rat-fish oil 300 mg-1,000 mg capsule (Fish Oil) 1 cap PO BID VITAMIN 04/14/23 [History Last Taken 04/13/23] pen needle, diabetic 31 gauge x 1/4 (Easy Touch) 04/14/23 [History Last Taken Unknown] pantoprazole 40 mg tablet,delayed release 40 mg PO BID heartburn #60 tabs 05/08/23 [Rx Last Taken Unknown] sucralfate 1 gram tablet (Carafate) 1 g PO BID heartburn #60 tabs 05/08/23 [Rx Last Taken Unknown] acetaminophen 325 mg tablet 650 mg PO Q6H PRN pain 08/26/23 [History Last Taken Unknown] difluprednate 0.05 % eye drops 1 drp ophthalmic (eye) 4X/DAY bleeding behind eyes 08/26/23 [History Last Taken Unknown] nystatin 100,000 unit/gram topical powder (Nystop) 1 applic topical BID yeast 08/26/23 [History Last Taken Unknown] furosemide 40 mg tablet 40 mg PO DAILY chf #0 tabs 09/01/23 [Rx Last Taken Unknown] insulin glargine-yfgn 100 unit/mL (3 mL) subcutaneous pen 13 unit (0.13 mL) subcut QHS diabetes #0 mL 09/01/23 [Rx Last Taken Unknown] insulin lispro 100 unit/mL subcutaneous pen (Humalog KwikPen (U-100) Insulin) 10 unit (0.1 mL) subcut TIDAC diabetes #0 mL 09/01/23 [Rx Last Taken Unknown] artificial tears(hypromellose) 0.3 % eye gel 1 drp EACH EYE Q2H PRN dry eye(s) 09/07/23 [History Last Taken Unknown] flash glucose sensor (FreeStyle [place] 2 Sensor kit) 09/16/23 [History Last Taken Unknown] Allergy/AdvReac Type Severity Reaction Status Date / Time No Known Allergies Allergy Verified 09/16/23 08:52 Family History Mother Heart disease Hypertension Diabetes Father Prostate cancer Surgical History H/O cataract removal with insertion of prosthetic lens History of cholecystectomy History of surgery on lower extremity Social History housing: residential Smoking Status: Never smoker alcohol intake: never substance use type: does not use ROS Constitutional Constitutional: Reports fatigue, malaise and weakness; Denies anorexia, chills or fever(s) Eyes Eyes: Denies blurry vision ENT HEENT: Denies dysphagia or headache(s) Cardiovascular Cardiovascular: Reports orthopnea; Denies chest pain, edema, palpitations, paroxysmal nocturnal dyspnea or syncope Respiratory/Chest Respiratory/Chest: Reports cough, shortness of breath at rest and shortness of breath with exertion; Denies wheezing Gastrointestinal Gastrointestinal: Denies abdominal pain, constipation, nausea or vomiting Genitourinary Genitourinary: Denies dysuria Neurologic Neurologic: Reports confusion; Denies dizziness, focal weakness or headache(s) Psychiatric Psychiatric: Denies anxiety or depression Vital Signs Vital Signs Vital Signs: 09/16/23 08:54 09/16/23 08:58 09/16/23 09:01 Temperature 95.7 F L 95.7 F L Temperature Source Temporal Temporal Pulse Rate 64 64 Respiratory Rate 32 H 32 H Respiratory Effort Short of Breath Respiratory Pattern Tachypnea Blood Pressure 97/56 L 97/56 L Blood Pressure Mean 69 69 Pulse Ox 93 96 Oxygen Delivery Method Nasal Cannula Nasal Cannula Nasal Cannula Oxygen Flow Rate (L/min) 6 6 09/16/23 09:25 09/16/23 09:27 09/16/23 09:26 Temperature Temperature Source Pulse Rate 59 L 59 L Respiratory Rate 20 H 16 Respiratory Effort Respiratory Pattern Blood Pressure 133/64 H Blood Pressure Mean 87 Pulse Ox 96 Oxygen Delivery Method Nasal Cannula Nasal Cannula Oxygen Flow Rate (L/min) 6 6 09/16/23 10:00 09/16/23 10:40 09/16/23 11:00 Temperature 95.7 F L 95.8 F L 95.8 F L Temperature Source Temporal Temporal Temporal Pulse Rate 60 60 60 Respiratory Rate 19 H 20 H 20 H Respiratory Effort Respiratory Pattern Blood Pressure 113/61 118/44 L 118/44 L Blood Pressure Mean 78 68 68 Pulse Ox 90 92 92 Oxygen Delivery Method Nasal Cannula Nasal Cannula Nasal Cannula Oxygen Flow Rate (L/min) 5 5 5 Weight Weight: 313 lb 7.957 oz Body Mass Index (BMI) 52.2 Physical Exam Const alert Constitutional Narrative: morbidly obese Orientation / Consciousness: lethargic HEENT normocephalic Mouth: dry mucous membranes Eyes PERRL and EOMs intact bilaterally Neck no lymphadenopathy, supple and no JVD Lymph Lymphatic: no lymphadenopathy noted and no lymphedema noted Resp Resp Narrative: moderately diminished breath sounds bilaterally, no wheezes or crackles. On 5L of oxygen by nasal canula Cardio regular rate, regular rhythm, S1 normal heart sound, S2 normal heart sound and no murmurs GI normal to inspection, nondistended, normoactive bowel sounds, soft to palpation, non-tender and non-distended GI Narrative: obese abdomen Extremity Extremity Narrative: minimal bilateral lower extremity edema General Extremity: no tenderness to palpation of joints or extremities Skin Skin Narrative: has ecchymosis over right half of chin General Skin Exam: no breakdown Neuro CN's II-XII intact bilaterally, no focal motor deficits, no sensory deficits noted and deep tendon reflexes 2+ bilaterally Psych thought process normal, cooperative and affect normal Mood & Affect: flat affect Results Lab / Micro Data 09/16/23 09:20 09/16/23 09:20 Labs: Laboratory Results - last 24 hr 09/16/23 09:20: WBC 5.4, RBC 2.74 L, Hgb 7.5 L, Hct 24.7 L, MCV 90.1, MCH 27.4, MCHC 30.4 L, RDW Std Deviation 52.4 H, RDW Coeff of Vlad 16.0 H, Plt Count 24 L*, MPV 13.2 H, Immature Gran % (Auto) 2.600 H, Neut % (Auto) 81.5 H, Lymph % (Auto) 5.2 L, [place] % (Auto) 8.6, Eos % (Auto) 1.9, Baso % (Auto) 0.2, Absolute Neuts (auto) 4.4, Absolute Lymphs (auto) 0.28 L, Nucleated RBC % 0.4, Differential Comment SCANNED, Diff Path Review November, Platelet Estimate MKD DEC, Sodium 141, Potassium 5.1, Chloride 115 H, Carbon Dioxide 25.0, Anion Gap 1 L, BUN 74 H, Creatinine 3.90 H, Estim Creat Clear Calc 20.36, Est GFR (MDRD) Af Amer 15 L, Est GFR (MDRD) Non-Af 12 L, BUN/Creatinine Ratio 19.0, Glucose 104, Lactic Acid 0.9, Calcium 8.4 L, Troponin I High Sens 11, B-Natriuretic Peptide 221.1 H Micro: Microbiology 09/16/23 09:20 Mucosa - Nose SARS-CoV-2, Influenza & RSV (PCR) - Final Imaging Radiology Impression Chest X-Ray 09/16/23 09:01 IMPRESSION: Cardiomegaly and CHF. Electronically Signed: Maximo Obrien MD at 10:30 EST , Assessment & Plan Assessment/Plan (1) Thrombocytopenia: (2) Dyspnea: (3) Hypoxemia: (4) CHF (congestive heart failure): (5) Respiratory failure with hypoxia and hypercapnia: PLAN: Plan #Acute on chronic hypoxic respiratory failure due to acute exacerbation of heart failure and fluid overload Patient requiring 5 L of oxygen. Was very short of breath in her residential. Has a history of CKD which has been worsening and per nephrology she likely needs to start dialysis. Will start diuresis now with IV Lasix 40 mg twice daily. nephrology consulted for initiation of hemodialysis. breathing treatment with bronchodilators titrate oxygen to maintain sats >90% #CKD IV Patient has worsening CKD. Cr is 3.9 today; creatinine was 3.67 at time of discharge. As stated above nephrology consulted. Patient likely needs initiation of dialysis. #Thrombocytopenia Thrombocytopenia has worsened since discharge. Patient had been on Zyvox for MSSA infection in a previous admission. During her last admission Zyvox was discontinued because of thrombocytopenia. Platelets were 33 at time of discharge. Platelets are down to 24 today. Hematology was consulted during previous admission and it was thought that the thrombocytopenia was due to the Zyvox and her acute illness. Consulted hematology again in light of worsening thrombocytopenia # Acute on chronic anemia: Hemoglobin is 7.5 which is around where his baseline has been. Will monitor. Transfuse if hemoglobin is less than 7. #Type 2 diabetes mellitus: Score. Tactics ACHS. #Hypothyroidism: On Synthroid. This is well-controlled as TSH has been elevated. Continue Synthroid. #Super morbid obesity: BMI is 51.5. Complicates acute care, expected recovery and prognosis DVT prophylaxis: SCDs CODE STATUS: full code Patient has episode of confusion possible to tell me that she would want everything done for him and would want to have CPR reviewed and ventilated if needed. CODE STATUS is full code. Total [id number] time 16 minutes. # Charges/Coding Visit Charges Inpatient E&M: 66989 Init Hosp L3 Procedures Hospitalists Procedures: 89338 Advncd Care Plan 30 Min
--- NOTE | 2023-09-16 11:20 | NURSING ---
DR ELIZABETH BARAJAS
--- NOTE | 2023-09-16 11:26 | NURSING ---
PCU [facility] CHF, HYPOXEMIA, CHRONIC KIDNEY DISEASE, THROMBOCYTOPENIA
[2023-09-16 13:40] LABS: Bedside Glucose 76 mg/dL (74-106)
--- NOTE | 2023-09-16 14:25 | CASEMGMT ---
Social Work Per chart review, patient does not have advance directives and has declined further information. Stephanie Gomez ACTIVITIES ASSISTANT, [employer]
[2023-09-16] MEDS: Nystatin Powder 15gm Bottle 1 APPLIC TOPICAL ×2 (15:40→21:33)
[2023-09-16 16:21] LABS: Bedside Glucose 91 mg/dL (74-106)
--- NOTE | 2023-09-16 16:48 | PCM.PN.BLA ---
Progress Note Well-known to me from previous admissions. CKD stage IIIb, recent GASTON. Massive proteinuria. Serology workup negative. Came back with shortness of breath, chest x-ray consistent with fluid overload. Will likely need initiation of dialysis. Platelet counts are low. Has been seen by hematology last admit and was told that could be related to Zyvox/sepsis. LDH and haptoglobin are normal. Platelet counts are lower. Will have to check with surgery/hematology about platelet infusions for procedure. She is no longer on Zyvox. Discussed with hospitalist.
--- NOTE | 2023-09-16 17:25 | CON.PCM.ON_ITS ---
Assessment & Plan Assessment/Plan (1) Thrombocytopenia: Status: Acute Code(s): D69.6 - Thrombocytopenia, unspecified Plan: As evident by platelet count today 24,000. Patient with 2 ecchymotic areas on exam but no evidence of acute bleeding (aside from gastric ulcer). Thorough review of her chart reveals on 08/26/23 when she presented during first of three admissions this month, platelets were within normal limits. To address multiple issues including UTI, MSSA bacteremia she has been exposed to several antimicrobials and started on PPI to address findings of oozing gastric ulcer visualized during EGD on 08/30/23. 4Ts score 3- low probability of HIT. Therefore, thrombocytopenia is most likely drug induced. Monitor for improvement of platelets after up to 2 weeks following discontinuation of offensive agent. No role for transfusion at this time. (2) Acute on chronic anemia: Status: Chronic Code(s): D64.9 - Anemia, unspecified Plan: Multifactorial given worsening of renal dysfunction and most recent acute GI bleed. Request iron studies, b12, folate. Case was discussed with Dr. Oconnor who was in agreement aforementioned plan. HPI Consult Data Date of Service:: 09/16/23 PCP / Referring Provider: Dr. Cortez Smith DO Attending: Dr. Angelina Parker MD Chief Complaint Chief Complaint: Thrombocytopenia History of Present Illness History of Present Illness: Ms. Mckoy is a 63 yo woman with a PMH significant for CKD, COPD, CHF, DM, anxiety, polyneuropathy, gastroparesis, SACHIN, pulmonary edema, and morbid obesity who presented to [facility] ED earlier this morning with c/o dyspnea.??She was found to be hypoxic. Labs revealed WBC 5.4, Hgb 7.5 and platelets 24K.? Cr 3.9 (baseline 2.5 until last week) , troponin normal and BNP 21.? CXR showed CHF.? ?Blood cultures are pending. She was subsequently admitted for management of CHF.? Hematology has been consulted to address ongoing thrombocytopenia, present since 09/07/23. Of note patient was admitted to [facility] 09/07/23-09/13/23 for management of UTI, respiratory failure and GASTON on CKD (dialysis was recommended) and 08/26/23-09/01/23 ?for management of acute on chronic respiratory failure, acute on chronic anemia d/t recurrent GI bleed from gastric ulcer and MSSA bacteremia (dis[place] [facility] [place]).? Upon admission 08/26/23 platelets were WNL, on 08/27/23 thrombocytopenia became evident. Patient has been provided multiple antimicrobials to over the course of several weeks and was placed on PPI during first admission that has continued since that time. ?? Interval History Interval History: Upon entering the room the patient is sitting upright in bedside chair. She is drowsy and unable to remain awake for much of our discussion. Advanced Directives Power of Door Fitter: No Living Will: No PFSH Medical History (Updated 09/16/23 @ 17:[address] PL[address] CHANGE ROOF BOLTER, PLACE CHANGE ROOF BOLTER-C) (HFpEF) heart failure with preserved ejection fraction Acute on chronic anemia GASTON (acute kidney injury) Anemia Anxiety Anxiety and depression Chest pain Chronic acquired lymphedema Chronic anemia Chronic kidney disease Chronic kidney disease CKD (chronic kidney disease), stage III Congestive heart failure COPD (chronic obstructive pulmonary disease) CPAP (continuous positive airway pressure) dependence Current use of insulin Diabetes Diabetes mellitus with diabetic polyneuropathy Diabetes mellitus, type 2 Gastroparesis History of diabetes mellitus History of fever History of renal insufficiency History of stress test HLD (hyperlipidemia) HTN (hypertension) Hypothyroidism Hypoxia Irregular heartbeat Lower extremity edema Malaise Morbid obesity On home oxygen therapy SACHIN (obstructive sleep apnea) Pleural effusion, left Pulmonary edema Restless legs Retinal hemorrhage Sleep apnea Home Medications atorvastatin 10 mg tablet 10 mg PO QHS cholesterol 09/24/22 [History Last Taken 04/13/23] escitalopram oxalate 10 mg tablet 10 mg PO DAILY depression 09/24/22 [History Last Taken 04/13/23] fenofibrate nanocrystallized 48 mg tablet (Tricor) 48 mg PO DAILY cholesterol 09/24/22 [History Last Taken 04/13/23] gabapentin 100 mg capsule 200 mg PO BID PAIN 03/05/23 [History Last Taken 04/13/23] levothyroxine 150 mcg tablet 150 mcg PO DAILY@0600 THYROID 03/05/23 [History Last Taken Unknown] ropinirole 4 mg tablet 4 mg PO QHS restless legs 03/05/23 [History Last Taken 05/01/23] dulaglutide 0.75 mg/0.5 mL subcutaneous pen injector (Trulicity) 0.75 mg subcut WE DIABETES 04/14/23 [History Last Taken 08/15/23] gabapentin 400 mg capsule 400 mg PO QHS PAIN 04/14/23 [History Last Taken 04/13/23] omega 1-ahm-mof-fish oil 300 mg-1,000 mg capsule (Fish Oil) 1 cap PO BID VITAMIN 04/14/23 [History Last Taken 04/13/23] pen needle, diabetic 31 gauge x 1/4 (Easy Touch) 04/14/23 [History Last Taken Unknown] pantoprazole 40 mg tablet,delayed release 40 mg PO BID heartburn #60 tabs 05/08/23 [Rx Last Taken Unknown] sucralfate 1 gram tablet (Carafate) 1 g PO BID heartburn #60 tabs 05/08/23 [Rx Last Taken Unknown] acetaminophen 325 mg tablet 650 mg PO Q6H PRN pain 08/26/23 [History Last Taken Unknown] difluprednate 0.05 % eye drops 1 drp ophthalmic (eye) 4X/DAY bleeding behind eyes 08/26/23 [History Last Taken Unknown] nystatin 100,000 unit/gram topical powder (Nystop) 1 applic topical BID yeast 08/26/23 [History Last Taken Unknown] furosemide 40 mg tablet 40 mg PO DAILY chf #0 tabs 09/01/23 [Rx Last Taken Unknown] insulin glargine-yfgn 100 unit/mL (3 mL) subcutaneous pen 13 unit (0.13 mL) subcut QHS diabetes #0 mL 09/01/23 [Rx Last Taken Unknown] insulin lispro 100 unit/mL subcutaneous pen (Humalog KwikPen (U-100) Insulin) 10 unit (0.1 mL) subcut TIDAC diabetes #0 mL 09/01/23 [Rx Last Taken Unknown] artificial tears(hypromellose) 0.3 % eye gel 1 drp EACH EYE Q2H PRN dry eye(s) 09/07/23 [History Last Taken Unknown] flash glucose sensor (FreeStyle Bandar 2 Sensor kit) 09/16/23 [History Last Taken Unknown] Allergy/AdvReac Type Severity Reaction Status Date / Time No Known Allergies Allergy Verified 09/16/23 08:52 Family History Mother Heart disease Hypertension Diabetes Father Prostate cancer Surgical History H/O cataract removal with insertion of prosthetic lens History of cholecystectomy History of surgery on lower extremity Social History [facility] [facility] Smoking Status: Never smoker alcohol intake: never substance use type: does not use ROS Review of Systems ROS Unobtainable: due to mental status and other Details: Drowsy Physical Exam Const alert Constitutional Narrative: morbidly obese Orientation / Consciousness: lethargic HEENT normocephalic Mouth: dry mucous membranes Eyes PERRL and no scleral icterus Neck no lymphadenopathy, supple and no JVD Lymph Lymphatic: no lymphadenopathy noted and no lymphedema noted Resp Resp Narrative: moderately diminished breath sounds bilaterally, no wheezes or crackles. On 5L of oxygen by nasal canula Cardio regular rate, regular rhythm, S1 normal heart sound, S2 normal heart sound and no murmurs GI normal to inspection, nondistended, normoactive bowel sounds, soft to palpation, non-tender and non-distended GI Narrative: presence/absence of hepatosplenomegaly difficult to discern d/t large body habitus Inspection: central obesity Extremity General Extremity: edema bilateral lower extremity Details: mild and no tenderness to palpation of joints or extremities Skin Skin Narrative: ecchymosis over right half of chin/neck and right knee Psych cooperative Attention / Concentration: attention grossly impaired and concentration grossly impaired Vital Signs Temperature 96.1 F L 09/16/23 13:10 Temperature Source Oral 09/16/23 13:10 Pulse Rate 55 L 09/16/23 13:10 Respiratory Rate 18 09/16/23 13:10 Respiratory Effort Non-Labored 09/16/23 12:55 Respiratory Depth Deep 09/16/23 12:55 Respiratory Pattern Tachypnea 09/16/23 12:55 Blood Pressure 112/53 L 09/16/23 13:10 Blood Pressure Mean 72 09/16/23 13:10 Pulse Ox 86 09/16/23 15:34 Oxygen Delivery Method Nasal Cannula 09/16/23 14:47 Oxygen Flow Rate (L/min) 5 09/16/23 16:17 Laboratory Results - last 24 hr 09/16/23 09:20: WBC 5.4, RBC 2.74 L, Hgb 7.5 L, Hct 24.7 L, MCV 90.1, MCH 27.4, MCHC 30.4 L, RDW Std Deviation 52.4 H, RDW Coeff of Vlad 16.0 H, Plt Count 24 L*, MPV 13.2 H, Immature Gran % (Auto) 2.600 H, Neut % (Auto) 81.5 H, Lymph % (Auto) 5.2 L, [place] % (Auto) 8.6, Eos % (Auto) 1.9, Baso % (Auto) 0.2, Absolute Neuts (auto) 4.4, Absolute Lymphs (auto) 0.28 L, Nucleated RBC % 0.4, Differential Comment SCANNED, Diff Path Review November, Platelet Estimate MKD DEC, Sodium 141, Potassium 5.1, Chloride 115 H, Carbon Dioxide 25.0, Anion Gap 1 L, BUN 74 H , Creatinine 3.90 H, Estim Creat Clear Calc 20.36, Est GFR (MDRD) Af Amer 15 L, Est GFR (MDRD) Non-Af 12 L, BUN/Creatinine Ratio 19.0, Glucose 104, Lactic Acid 0.9, Calcium 8.4 L, Troponin I High Sens 11, B-Natriuretic Peptide 221.1 H 09/16/23 13:17: POC Glucose 76 09/16/23 16:03: POC Glucose 91 Microbiology 09/16/23 09:20 Mucosa - Nose SARS-CoV-2, Influenza & RSV (PCR) - Final Diagnostic Data Chest X-Ray 09/16/23 09:01 IMPRESSION: Cardiomegaly and CHF. Electronically Signed: Maximo Obrien MD at 10:30 EST ,
[2023-09-16] MEDS: Furosemide 40 MG/4 ML Vial IV (17:36)
[2023-09-16] MEDS: 0.9% Saline Lock 10 ML Syringe IV (17:37)
[2023-09-16] MEDS: Gabapentin 400 MG Capsule PO (21:26)
[2023-09-16] MEDS: Omega-3 Acid Ethyl Esters 1 GM Capsule PO (21:30)
[2023-09-16] MEDS: Pantoprazole Sodium 40 MG Tablet PO (21:30)
[2023-09-16] MEDS: Atorvastatin Calcium 10 MG Tablet PO (21:30)
[2023-09-16] MEDS: Pramipexole Di-HCl 0.5 MG Tablet 1.5 MG PO (21:31)
[2023-09-16 22:31] LABS: Bedside Glucose 93 mg/dL (74-106)
[2023-09-17] VITALS (15 sets, daily range): BP systolic 90–166; BP diastolic 46–150; PULSE 55–79; RESP 12–26; TEMP 34.4–36.5; O2SAT 92–99; BMI 50.2
[2023-09-17] MEDS: Sucralfate 1 GM Tablet PO (06:10)
[2023-09-17] MEDS: Nystatin Powder 15gm Bottle 1 APPLIC TOPICAL ×2 (06:10→23:00)
[2023-09-17] MEDS: Levothyroxine 150 MCG Tablet PO (06:10)
[2023-09-17 07:03] LABS: Absolute Lymphocyte Count 0.31 X10^3/uL (0.83-4.51); Absolute Neutrophil Count 9.3 X10^3/uL (2.0-7.7); Basophil# 0.01 X10^3/uL; Basophil% 0.1 % (0-1); Eosinophil# 0.12 X10^3/uL; Eosinophils% 1.1 % (0-5); Hematocrit 24.5 % (37-47); Hemoglobin 7.6 g/dL (12.0-15.0); Lymphocyte # 0.31 X10^3/ul (0.83-4.51); Mean Corpuscular Hgb 28.3 pg (27.0-32.0); Mean Corpuscular Volume 91.1 fL (81-99); Mean Platelet Vol. 13.7 fl (6.2-12.0); Monocyte# 0.57 X10^3/uL; Monocyte% 5.4 % (0-10); NRBC Flagged by Analyzer 0.3 % (0-5); Neutrophil # 9.28 X10^3/uL (2.7-7.7); Neutrophil % 88.6 % (47-70); POSITIVE COUNT YES; POSITIVE DIFFERENTIAL YES; RBC Distribution Width CV 16.2 % (11.6-14.6); RBC Distribution Width SD 53.1 fl (35.1-43.9); Red Blood Count 2.69 M/mm3 (4.2-5.4); White Blood Count 10.5 K/mm3 (4.4-11.0)
[2023-09-17 07:28] LABS: Platelet Count 25 K/mm3 (150-450)
[2023-09-17 08:19] LABS: Differential Comment SCANNED; Differential Indicated SCAN CRITERIA MET
[2023-09-17 08:20] LABS: Platelet Estimate MKD DEC (ADEQ)
[2023-09-17 08:51] LABS: Vitamin B12 1376 pg/mL (211-911)
--- NOTE | 2023-09-17 09:15 | CASEMGMT ---
WES sent updates to [facility] notifying them patient will be starting dialysis. WES asked [facility] if they are able to transport patient to and from dialysis? Await response. Varsha Villatoro SURGICAL SERVICES ASSISTANT RUBY
[2023-09-17 09:45] LABS: Bedside Glucose 76 mg/dL (74-106)
--- NOTE | 2023-09-17 09:51 | PN_ITS ---
Subjective Subjective Patient seen and examined. She was lethargic but able to answer questions. She was on BIPAP. Hb is 7.6. Wbc is 10.5. Platelets are 25. Review of systems is otherwise negative. Objective Data Objective Data Vital Signs: Vital Signs Temp Pulse Resp BP Pulse Ox O2 Del Method O2 Flow Rate 96.8 F L 58 L 16 90/51 L 97 Nasal Cannula 4 09/17/23 09:00 09/17/23 09:00 09/17/23 09:00 09/17/23 09:00 09/17/23 09:00 09/17/23 09:00 09/17/23 09:00 FiO2 40 09/17/23 02:43 Oxygen Flow Rate (L/min) 4 Oxygen Delivery Method Nasal Cannula Weight: 309 lb 8.464 oz Body Mass Index (BMI) 51.5 Intake & Output: Intake and Output for Last 24 Hours 09/15/23 09/16/23 09/17/23 23:59 23:59 23:59 Intake Total 585 / 585 Output Total 1075 / 1075 300 / 300 Balance -490 / -490 -300 / -300 Lab / Micro Data 09/17/23 06:42 09/16/23 09:20 Labs: Laboratory Results - last 24 hr 09/16/23 09:20: Differential Comment SCANNED, Diff Path Review November, Platelet Estimate MKD DEC, Sodium 141, Potassium 5.1, Chloride 115 H, Carbon Dioxide 25.0, Anion Gap 1 L, BUN 74 H, Creatinine 3.90 H, Estim Creat Clear Calc 20.36, Est GFR (MDRD) Af Amer 15 L, Est GFR (MDRD) Non-Af 12 L, BUN/Creatinine Ratio 19.0, Glucose 104, Lactic Acid 0.9, Calcium 8.4 L, Troponin I High Sens 11, B-Natriuretic Peptide 221.1 H 09/16/23 13:17: POC Glucose 76 09/16/23 16:03: POC Glucose 91 09/16/23 21:29: POC Glucose 93 09/17/23 06:07: POC Glucose 76 09/17/23 06:42: WBC 10.5, RBC 2.69 L, Hgb 7.6 L, Hct 24.5 L, MCV 91.1, MCH 28.3, MCHC 31.0 L, RDW Std Deviation 53.1 H, RDW Coeff of Vlad 16.2 H, Plt Count 25 L*, MPV 13.7 H, Immature Gran % (Auto) 1.800 H, Neut % (Auto) 88.6 H, Lymph % (Auto) 3.0 L, [place] % (Auto) 5.4, Eos % (Auto) 1.1, Baso % (Auto) 0.1, Absolute Neuts (auto) 9.3 H, Absolute Lymphs (auto) 0.31 L, Nucleated RBC % 0.3, Differential Comment SCANNED, Diff Path Review November foll, Platelet Estimate MKD JUN, Vitamin B12 1376 H Micro: Microbiology 09/16/23 09:20 Mucosa - Nose SARS-CoV-2, Influenza & RSV (PCR) - Final Radiography Diagnostic Testing: Radiology Impression Chest X-Ray 09/16/23 09:01 IMPRESSION: Cardiomegaly and CHF. Electronically Signed: Maximo Obrien MD at 10:30 EST Reading Location ID and State: [facility] / [place] , Service support , Physical Exam Const alert Constitutional Narrative: morbidly obese Orientation / Consciousness: lethargic HEENT normocephalic, head/scalp atraumatic and moist oral mucous membranes Eyes PERRL and EOMs intact bilaterally Neck no lymphadenopathy, supple and no JVD Lymph Lymphatic: no lymphadenopathy noted and no lymphedema noted Resp Resp Narrative: moderately diminished breath sounds bilaterally, no wheezes or crackles. On 4L of oxygen by nasal canula Cardio regular rate, regular rhythm, S1 normal heart sound, S2 normal heart sound and no murmurs GI normal to inspection, nondistended, normoactive bowel sounds, soft to palpation, non-tender and non-distended GI Narrative: obese abdomen Extremity Extremity Narrative: minimal bilateral lower extremity edema General Extremity: no tenderness to palpation of joints or extremities Skin Skin Narrative: has ecchymosis over right half of chin General Skin Exam: no breakdown Neuro CN's II-XII intact bilaterally, no focal motor deficits, no sensory deficits noted and deep tendon reflexes 2+ bilaterally Motor Exam: general weakness Psych thought process normal, cooperative and affect normal Mood & Affect: flat affect Assessment & Plan Assessment/Plan (1) Thrombocytopenia: (2) Dyspnea: (3) Hypoxemia: (4) CHF (congestive heart failure): (5) Respiratory failure with hypoxia and hypercapnia: PLAN: Plan #Acute on chronic hypoxic respiratory failure due to acute exacerbation of heart failure and fluid overload * Patient requiring 5 L of oxygen. Was very short of breath in her longterm. * Has a history of CKD which has been worsening and per nephrology she likely needs to start dialysis. * Will start diuresis now with IV Lasix 40 mg twice daily. * nephrology consulted for initiation of hemodialysis. * breathing treatment with bronchodilators * titrate oxygen to maintain sats >90% * #CKD V * Patient has worsening CKD.CR was 3.9 yesterday. * nephrology on board. Likely needs initiation of dialysis * * #Thrombocytopenia * platelets are 25, from 24 yesterday * Hematology was consulted during previous admission and it was thought that the thrombocytopenia was due to the Zyvox and her acute illness. * Hematology on board and thinks this is likely due to her meds she was on. Conservative management now. Will monitor. # Acute on chronic anemia: Hemoglobin is 7.6 which is around where his baseline has been. Will monitor. Transfuse if hemoglobin is less than 7. #Type 2 diabetes mellitus:on latus 13 units qhs. ISS. Accuchecks ACHS. #Hypothyroidism: On Synthroid. This is well-controlled as TSH has been elevated. Continue Synthroid. #Super morbid obesity: BMI is 51.5. Complicates acute care, expected recovery and prognosis DVT prophylaxis: SCDs CODE STATUS: full code * Patient has episode of confusion possible to tell me that she would want everything done for him and would want to have CPR reviewed and ventilated if needed. * CODE STATUS is full code. * Total blns-na-fmfu time 16 minutes. * * Charges/Coding Visit Charges Inpatient E&M: 52747 Subs Hosp L3
[2023-09-17] MEDS: Dextrose 5%-Water (1000mL Bag) 1,000 ML 60 ML IV (09:53)
[2023-09-17 10:02] LABS: Bedside Glucose 74 mg/dL (74-106)
[2023-09-17] MEDS: Gabapentin 100 MG Capsule 200 MG PO (10:08)
[2023-09-17] MEDS: Pantoprazole Sodium 40 MG Tablet PO (10:08)
[2023-09-17] MEDS: Escitalopram Oxalate 10 MG Tablet PO (10:08)
[2023-09-17] MEDS: Omega-3 Acid Ethyl Esters 1 GM Capsule PO (10:08)
[2023-09-17] MEDS: Fenofibrate 48 MG Tablet PO (10:09)
[2023-09-17 10:46] LABS: Anion Gap 2 (5-15); BUN 76 mg/dL (7-18); BUN/Creat Ratio 19.8 RATIO (10-20); Calcium,Total 8.9 mg/dL (8.5-10.1); Chloride 118 mmol/L (98-107); Creatinine, Serum 3.84 mg/dL (0.55-1.02); EST Glomerular Filtration Rate 13 mL/min (>60); Est Glom Filt Rate - Afr Amer 15 mL/min (>60); Estimated Creatinine Clearance 20.52 ml/min; Ferritin 271 ng/mL (8-252); Glucose 79 mg/dL (74-106); Iron 47 ug/dL (50-170); Iron Binding Capacity,Total 307 ug/dL (250-450); PERCENT IRON SATURATION 15.3 % (15.0-55.0); Potassium 4.9 mmol/L (3.5-5.1); Sodium Level 144 mmol/L (136-145)
--- NOTE | 2023-09-17 10:56 | CASEMGMT ---
RN SARITHA called [facility] to inquire if patient was wearing Bipap at facility. Per nurse Stokes, Bipap is by patient's bedside but per report patient was not wearing it. CLEM MELARA updated SW and nursing.
[2023-09-17 11:25] LABS: Bedside Glucose 85 mg/dL (74-106)
--- NOTE | 2023-09-17 11:35 | PCM.CONS.R ---
Assessment & Plan Assessment/Plan (1) GASTON (acute kidney injury): PLAN: Baseline creatinine was around 2.0, sustained GASTON during last 2 previous admissions. Serologic workup negative. Obstructive workup negative. Massive proteinuria of 10 g. Presumably this is diabetes related. Currently has volume overload. On examination today she is somewhat confused/altered. Not sure if this is uremia related or hypercapnia related. Discussed with hospitalist. Blood gas will be sent today. She will need to start dialysis. I tried to talk to her but she is fairly somnolent. I did call her daughter Nayla and updated. She is agreeable with dialysis. Issue is thrombocytopenia. Previous workup showed normal LDH and haptoglobin, unlikely HUS or any form of TMA. Hematology has been consulted and opinion is that this is related to Zyvox, sepsis. Zyvox was discontinued last admission. She may need some platelets transfusion to be given with dialysis catheter. Daughter is agreeable for it. Called and spoke to surgery service. We will start with a temporary catheter and eventually converted to tunneled catheter by next week if the platelet counts are better. HPI Consult Data Date of Consult: 09/17/23 HPI Narrative Reason for Consultation: Acute on chronic renal failure HPI Narrative: TOBIN BIGGS, is a 63 F who presents To the hospital with shortness of breath. She is known to me from recent admissions. History of CKD stage IIIb, baseline creatinine around 2.0. Massive proteinuria, serologic workup negative. She was admitted with GASTON last admission, improved somewhat and was discharged to assisted living facility. Came back with worsening shortness of breath. Chest x-ray looks pretty wet. She is somewhat somnolent today, most of the history is obtained from the charts. When I asked her if she has any complaints she said no. [facility] Medical History (Updated 09/16/23 @ 17:31 by Judy Mixon HEAD END DESIZING MACHINE OPERATOR, HEAD END DESIZING MACHINE OPERATOR-C) (HFpEF) heart failure with preserved ejection fraction Acute on chronic anemia GASTON (acute kidney injury) Anemia Anxiety Anxiety and depression Chest pain Chronic acquired lymphedema Chronic anemia Chronic kidney disease Chronic kidney disease CKD (chronic kidney disease), stage III Congestive heart failure COPD (chronic obstructive pulmonary disease) CPAP (continuous positive airway pressure) dependence Current use of insulin Diabetes Diabetes mellitus with diabetic polyneuropathy Diabetes mellitus, type 2 Gastroparesis History of diabetes mellitus History of fever History of renal insufficiency History of stress test HLD (hyperlipidemia) HTN (hypertension) Hypothyroidism Hypoxia Irregular heartbeat Lower extremity edema Malaise Morbid obesity On home oxygen therapy SACHIN (obstructive sleep apnea) Pleural effusion, left Pulmonary edema Restless legs Retinal hemorrhage Sleep apnea Home Medications atorvastatin 10 mg tablet 10 mg PO QHS cholesterol 09/24/22 [History Last Taken 04/13/23] escitalopram oxalate 10 mg tablet 10 mg PO DAILY depression 09/24/22 [History Last Taken 04/13/23] fenofibrate nanocrystallized 48 mg tablet (Tricor) 48 mg PO DAILY cholesterol 09/24/22 [History Last Taken 04/13/23] gabapentin 100 mg capsule 200 mg PO BID PAIN 03/05/23 [History Last Taken 04/13/23] levothyroxine 150 mcg tablet 150 mcg PO DAILY@0600 THYROID 03/05/23 [History Last Taken Unknown] ropinirole 4 mg tablet 4 mg PO QHS restless legs 03/05/23 [History Last Taken 05/01/23] dulaglutide 0.75 mg/0.5 mL subcutaneous pen injector (Trulicity) 0.75 mg subcut WE DIABETES 04/14/23 [History Last Taken 08/15/23] gabapentin 400 mg capsule 400 mg PO QHS PAIN 04/14/23 [History Last Taken 04/13/23] omega 2-etj-ijq-fish oil 300 mg-1,000 mg capsule (Fish Oil) 1 cap PO BID VITAMIN 04/14/23 [History Last Taken 04/13/23] pen needle, diabetic 31 gauge x 1/4 (Easy Touch) 04/14/23 [History Last Taken Unknown] pantoprazole 40 mg tablet,delayed release 40 mg PO BID heartburn #60 tabs 05/08/23 [Rx Last Taken Unknown] sucralfate 1 gram tablet (Carafate) 1 g PO BID heartburn #60 tabs 05/08/23 [Rx Last Taken Unknown] acetaminophen 325 mg tablet 650 mg PO Q6H PRN pain 08/26/23 [History Last Taken Unknown] difluprednate 0.05 % eye drops 1 drp ophthalmic (eye) 4X/DAY bleeding behind eyes 08/26/23 [History Last Taken Unknown] nystatin 100,000 unit/gram topical powder (Nystop) 1 applic topical BID yeast 08/26/23 [History Last Taken Unknown] furosemide 40 mg tablet 40 mg PO DAILY chf #0 tabs 09/01/23 [Rx Last Taken Unknown] insulin glargine-yfgn 100 unit/mL (3 mL) subcutaneous pen 13 unit (0.13 mL) subcut QHS diabetes #0 mL 09/01/23 [Rx Last Taken Unknown] insulin lispro 100 unit/mL subcutaneous pen (Humalog KwikPen (U-100) Insulin) 10 unit (0.1 mL) subcut TIDAC diabetes #0 mL 09/01/23 [Rx Last Taken Unknown] artificial tears(hypromellose) 0.3 % eye gel 1 drp EACH EYE Q2H PRN dry eye(s) 09/07/23 [History Last Taken Unknown] flash glucose sensor (FreeStyle Bandar 2 Sensor kit) 09/16/23 [History Last Taken Unknown] Allergy/AdvReac Type Severity Reaction Status Date / Time No Known Allergies Allergy Verified 09/16/23 08:52 Family History Mother Heart disease Hypertension Diabetes Father Prostate cancer Surgical History H/O cataract removal with insertion of prosthetic lens History of cholecystectomy History of surgery on lower extremity Social History housing: snf Smoking Status: Never smoker alcohol intake: never substance use type: does not use ROS ROS Narrative Unable to obtain due to mental status Physical Exam Narrative Drowsy no obvious distress no pallor no icterus no JVD s1s2 no murmurs lungs rales abdomen soft no organomegaly no edema no cyanosis beach + Lab / Micro Data 09/17/23 06:42 09/17/23 06:42 Labs: Laboratory Results - last 24 hr 09/16/23 13:17: POC Glucose 76 09/16/23 16:03: POC Glucose 91 09/16/23 21:29: POC Glucose 93 09/17/23 06:07: POC Glucose 76 09/17/23 06:42: WBC 10.5, RBC 2.69 L, Hgb 7.6 L, Hct 24.5 L, MCV 91.1, MCH 28.3, MCHC 31.0 L, RDW Std Deviation 53.1 H, RDW Coeff of Vlad 16.2 H, Plt Count 25 L*, MPV 13.7 H, Immature Gran % (Auto) 1.800 H, Neut % (Auto) 88.6 H, Lymph % (Auto) 3.0 L, [place] % (Auto) 5.4, Eos % (Auto) 1.1, Baso % (Auto) 0.1, Absolute Neuts (auto) 9.3 H, Absolute Lymphs (auto) 0.31 L, Nucleated RBC % 0.3, Differential Comment SCANNED, Diff Path Review November foll, Platelet Estimate MKD DEC, Sodium 144, Potassium 4.9, Chloride 118 H, Carbon Dioxide 24.0, Anion Gap 2 L, BUN 76 H, Creatinine 3.84 H, Estim Creat Clear Calc 20.52, Est GFR (MDRD) Af Amer 15 L, Est GFR (MDRD) Non-Af 13 L, BUN/Creatinine Ratio 19.8, Glucose 79, Calcium 8.9, Iron 47 L, TIBC 307, Iron Saturation 15.3, Ferritin 271 H, Vitamin B12 1376 H, Folate 9.80 09/17/23 09:21: POC Glucose 74 09/17/23 10:53: POC Glucose 85 Micro: Microbiology 09/16/23 09:20 Mucosa - Nose SARS-CoV-2, Influenza & RSV (PCR) - Final
--- NOTE | 2023-09-17 11:47 | EX.PCM.CON.S ---
Assessment & Plan Assessment/Plan (1) ESRF (end stage renal failure): PLAN: I have been consulted in conjunction with Dr. Ruiz. She will independently evaluate this patient. Upon arriving into patient's room, she was sitting in a chair. Patient is very lethargic and only able to answer simple one or two questions. She keeps her eyes open for very short periods of time and then closes them. Patient does note she is scared to proceed with dialysis. Patient's platelet count is very low and is believed to be from Zyvox that was prescribed to treat bacteremia from one of her hospitalizations. We will order platelets to be given just prior to the planned procedure and will give a 2nd unit to the patient once the procedure is completed. Dr. Ruiz will plan to perform a temporary right IJ dialysis catheter placement at bedside due to the overall high-risk morbidities of the patient. This will allow patient to receive dialysis quickly in hope that she recovers a little more to then transition her to a tunneled dialysis catheter. Procedure was briefly discussed with the patient, however she was not able to stay awake enough for a complete explanation. I did contact her daughter, Nayla, whom is listed in the chart. Daughter is aware that dialysis is being initiated and is agreeable to have the patient proceed with dialysis catheter placement at bedside. Patient's daughter confirms that Al, patient's brother, is patient's legal POA. Al's number is listed within the patient's chart. Al will need to be contacted for consent to proceed with the proposed procedure. Thank you for allowing us to participate in this patient's care. HPI Consult Data Date of Consult: 09/17/23 HPI Narrative Reason for Consultation: In need of dialysis assess HPI Narrative: TOBIN BIGGS, is a 63 F who presents to the ED via EMS from [facility] [place] secondary to shortness of breath. Majority of the history is from patient's chart due to patient is very lethargic upon my arrival and is unable to appropriately answer questions. Patient has had multiple recent hospitalizations for lethargy, confusion and shortness of breath. Patient is chronically on oxygen due to her COPD. She has multiple co-morbidities. She has a history of renal failure and is in end stage failure failure needing dialysis. Patient apparently had a fall at the group home prior to coming into her last hospitalization leaving a cut on her chin and large bruise on her right chin into her neck. Patient has never been on dialysis previously. She has been following with Dr. Lechuga for her renal failure. Patient is unsure if she has had any recent central lines placed in the right neck. She states she is scared to proceed with dialysis. [facility] Medical History (Updated 09/17/23 @ 15:12 by Leigh ROME, PARachelC) (HFpEF) heart failure with preserved ejection fraction Acute on chronic anemia GASTON (acute kidney injury) Anemia Anxiety Anxiety and depression Chest pain Chronic acquired lymphedema Chronic anemia Chronic kidney disease Chronic kidney disease CKD (chronic kidney disease), stage III Congestive heart failure COPD (chronic obstructive pulmonary disease) CPAP (continuous positive airway pressure) dependence Current use of insulin Diabetes Diabetes mellitus with diabetic polyneuropathy Diabetes mellitus, type 2 Gastroparesis History of diabetes mellitus History of fever History of renal insufficiency History of stress test HLD (hyperlipidemia) HTN (hypertension) Hypothyroidism Hypoxia Irregular heartbeat Lower extremity edema Malaise Morbid obesity On home oxygen therapy SACHIN (obstructive sleep apnea) Pleural effusion, left Pulmonary edema Restless legs Retinal hemorrhage Sleep apnea Home Medications atorvastatin 10 mg tablet 10 mg PO QHS cholesterol 09/24/22 [History Last Taken 04/13/23] escitalopram oxalate 10 mg tablet 10 mg PO DAILY depression 09/24/22 [History Last Taken 04/13/23] fenofibrate nanocrystallized 48 mg tablet (Tricor) 48 mg PO DAILY cholesterol 09/24/22 [History Last Taken 04/13/23] gabapentin 100 mg capsule 200 mg PO BID PAIN 03/05/23 [History Last Taken 04/13/23] levothyroxine 150 mcg tablet 150 mcg PO DAILY@0600 THYROID 03/05/23 [History Last Taken Unknown] ropinirole 4 mg tablet 4 mg PO QHS restless legs 03/05/23 [History Last Taken 05/01/23] dulaglutide 0.75 mg/0.5 mL subcutaneous pen injector (Trulicity) 0.75 mg subcut WE DIABETES 04/14/23 [History Last Taken 08/15/23] gabapentin 400 mg capsule 400 mg PO QHS PAIN 04/14/23 [History Last Taken 04/13/23] omega 1-rxd-pxs-fish oil 300 mg-1,000 mg capsule (Fish Oil) 1 cap PO BID VITAMIN 04/14/23 [History Last Taken 04/13/23] pen needle, diabetic 31 gauge x 1/4 (Easy Touch) 04/14/23 [History Last Taken Unknown] pantoprazole 40 mg tablet,delayed release 40 mg PO BID heartburn #60 tabs 05/08/23 [Rx Last Taken Unknown] sucralfate 1 gram tablet (Carafate) 1 g PO BID heartburn #60 tabs 05/08/23 [Rx Last Taken Unknown] acetaminophen 325 mg tablet 650 mg PO Q6H PRN pain 08/26/23 [History Last Taken Unknown] difluprednate 0.05 % eye drops 1 drp ophthalmic (eye) 4X/DAY bleeding behind eyes 08/26/23 [History Last Taken Unknown] nystatin 100,000 unit/gram topical powder (Nystop) 1 applic topical BID yeast 08/26/23 [History Last Taken Unknown] furosemide 40 mg tablet 40 mg PO DAILY chf #0 tabs 09/01/23 [Rx Last Taken Unknown] insulin glargine-yfgn 100 unit/mL (3 mL) subcutaneous pen 13 unit (0.13 mL) subcut QHS diabetes #0 mL 09/01/23 [Rx Last Taken Unknown] insulin lispro 100 unit/mL subcutaneous pen (Humalog KwikPen (U-100) Insulin) 10 unit (0.1 mL) subcut TIDAC diabetes #0 mL 09/01/23 [Rx Last Taken Unknown] artificial tears(hypromellose) 0.3 % eye gel 1 drp EACH EYE Q2H PRN dry eye(s) 09/07/23 [History Last Taken Unknown] flash glucose sensor (FreeStyle Bandar 2 Sensor kit) 09/16/23 [History Last Taken Unknown] Allergy/AdvReac Type Severity Reaction Status Date / Time No Known Allergies Allergy Verified 09/16/23 08:52 Family History Mother Heart disease Hypertension Diabetes Father Prostate cancer Surgical History H/O cataract removal with insertion of prosthetic lens History of cholecystectomy History of surgery on lower extremity Social History housing: group home Smoking Status: Never smoker alcohol intake: never substance use type: does not use ROS Review of Systems ROS Unobtainable: due to mental condition and due to mental status Constitutional Constitutional: Reports lethargy Physical Exam Const General Appearance: uncooperative, disheveled and lethargic Orientation / Consciousness: lethargic Nutritional Appearance: morbidly obese HEENT normocephalic and head/scalp atraumatic HEENT Narrative: Nasal canula intact Eyes PERRL Neck Neck Narrative: right chin and neck with significant ecchymosis noted Lymph Lymphatic: no lymphadenopathy noted Chest inspection of chest normal Resp normal respiratory effort Cardio regular rate and regular rhythm GI Inspection: central obesity no CVA tenderness Back/Spine no CVA tenderness Extremity General Extremity: edema bilateral lower extremity Skin General Skin Exam: ecchymosis Neuro no focal motor deficits and no sensory deficits noted Psych Appearance: disheveled Attitude: uncooperative Lab / Micro Data 09/17/23 06:42 09/17/23 06:42 Labs: Laboratory Results - last 24 hr 09/16/23 13:17: POC Glucose 76 09/16/23 16:03: POC Glucose 91 09/16/23 21:29: POC Glucose 93 09/17/23 06:07: POC Glucose 76 09/17/23 06:42: WBC 10.5, RBC 2.69 L, Hgb 7.6 L, Hct 24.5 L, MCV 91.1, MCH 28.3, MCHC 31.0 L, RDW Std Deviation 53.1 H, RDW Coeff of Vlad 16.2 H, Plt Count 25 L*, MPV 13.7 H, Immature Gran % (Auto) 1.800 H, Neut % (Auto) 88.6 H, Lymph % (Auto) 3.0 L, [place] % (Auto) 5.4, Eos % (Auto) 1.1, Baso % (Auto) 0.1, Absolute Neuts (auto) 9.3 H, Absolute Lymphs (auto) 0.31 L, Nucleated RBC % 0.3, Differential Comment SCANNED, Diff Path Review May foll, Platelet Estimate MKD DEC, Sodium 144, Potassium 4.9, Chloride 118 H, Carbon Dioxide 24.0, Anion Gap 2 L, BUN 76 H, Creatinine 3.84 H, Estim Creat Clear Calc 20.52, Est GFR (MDRD) Af Amer 15 L, Est GFR (MDRD) Non-Af 13 L, BUN/Creatinine Ratio 19.8, Glucose 79, Calcium 8.9, Iron 47 L, TIBC 307, Iron Saturation 15.3, Ferritin 271 H, Vitamin B12 1376 H, Folate 9.80 09/17/23 09:21: POC Glucose 74 09/17/23 10:53: POC Glucose 85 Micro: Microbiology 09/16/23 09:20 Mucosa - Nose SARS-CoV-2, Influenza & RSV (PCR) - Final Charges/Coding Visit Charges Office Visits / Consults: 11415 IP Consult L3
[2023-09-17 12:01] LABS: Allen Test Positive; Base Excess -1 mmol/L (-2 to +2); Bicarbonate 26.6 mmol/L (22-26); Blood Gas Specimen Type ART; Mode Not entered; O2 Delivery Device Cannula; PO2 75 mmHG (75-100); SITE R Radial; SO2 91 % (95-99); Total Carbon Dioxide 29 mmol/L; pCO2 64.8 mmHg (35-45); pH 7.22 (7.35-7.45)
[2023-09-17 13:42] LABS: Pathologist Review Reviewed
--- NOTE | 2023-09-17 13:47 | CHAPLAIN ---
Type of Pastoral Visit _x__ Initial Visit ___ Follow-up Visit ___ On-call Visit ___ General Patient Visit ___ Spiritual Assessment ___ Family Conference ___ Bereavement ___ Rapid Response ___ Code Blue ___ Other (describe below) Pastoral Care Referral From _x__ Patient ___ Family ___ Nurse ___ Physician ___ Hat Cleaner ___ Camera Operator ___ Other (describe below) Sacrament/Intervention ___ Active listening ___ Anointing ___ Mormon ___ Bereavement ___ Communion ___ Tricia exploration ___ ___ Life review _x__ Prayer ___ Reconciliation ___ Sacrament of Sick _x__ Supportive presence ___ Wedding ___ Other (describe below) Pastoral Comments patient is sitting up in chair with a Bi Pap machine on; pt is given offer of support by this channel development manager; pt tries repeatedly to take off the Bi Pap from her face but is not able to do so; pt encouraged to keep the Bi-Pap on and to relax; pt is given calm tone and offer of having presence and prayer; pt does not respond with any words that can be understood; prayer is given for the patient; words of assurance and calm given to keep pt focused on her help and not on pulling off mask
[2023-09-17 22:48] LABS: Bedside Glucose 95 mg/dL (74-106)
[2023-09-17] MEDS: Menthol/Lanolin/Calamine/Znox 113 GM Tube 1 APPLIC TOPICAL (22:57)
[2023-09-18] VITALS (30 sets, daily range): BP systolic 47–148; BP diastolic 45–117; PULSE 60–75; RESP 12–26; TEMP 35.5–36.5; O2SAT 92–97; BMI 51.3
[2023-09-18] MEDS: Dextrose 5%-Water (1000mL Bag) 1,000 ML 60 ML IV ×2 (00:10→18:05)
[2023-09-18 00:24] LABS: Bedside Glucose 90 mg/dL (74-106)
[2023-09-18 06:31] LABS: Bedside Glucose 87 mg/dL (74-106)
[2023-09-18 07:04] LABS: Absolute Lymphocyte Count 0.57 X10^3/uL (0.83-4.51); Basophil# 0.01 X10^3/uL; Basophil% 0.1 % (0-1); Eosinophil# 0.15 X10^3/uL; Eosinophils% 1.7 % (0-5); Hematocrit 21.8 % (37-47); Hemoglobin 6.8 g/dL (12.0-15.0); Lymphocyte # 0.57 X10^3/ul (0.83-4.51); Lymphocyte % 6.6 % (19-41); Mean Corp Hgb Conc 31.2 g/dL (32-36); Mean Corpuscular Hgb 28.2 pg (27.0-32.0); Mean Corpuscular Volume 90.5 fL (81-99); Monocyte# 0.66 X10^3/uL; Monocyte% 7.6 % (0-10); NRBC Flagged by Analyzer 0.6 % (0-5); Neutrophil # 7.02 X10^3/uL (2.7-7.7); Neutrophil % 80.8 % (47-70); POSITIVE COUNT YES; POSITIVE DIFFERENTIAL YES; POSITIVE MORPHOLOGY YES; Platelet Count 24 K/mm3 (150-450); RBC Distribution Width CV 16.5 % (11.6-14.6); RBC Distribution Width SD 53.7 fl (35.1-43.9); Red Blood Count 2.41 M/mm3 (4.2-5.4); White Blood Count 8.7 K/mm3 (4.4-11.0)
[2023-09-18] MEDS: Nystatin Powder 15gm Bottle 1 APPLIC TOPICAL ×3 (07:09→20:53)
[2023-09-18 07:18] LABS: Differential Indicated SCAN CRITERIA MET
[2023-09-18 07:27] LABS: Anion Gap 1 (5-15); BUN 74 mg/dL (7-18); BUN/Creat Ratio 19.5 RATIO (10-20); Calcium,Total 8.7 mg/dL (8.5-10.1); Chloride 118 mmol/L (98-107); EST Glomerular Filtration Rate 13 mL/min (>60); Est Glom Filt Rate - Afr Amer 15 mL/min (>60); Estimated Creatinine Clearance 21.02 ml/min; Glucose 87 mg/dL (74-106); Potassium 4.7 mmol/L (3.5-5.1); Sodium Level 144 mmol/L (136-145)
[2023-09-18 09:02] LABS: Differential Comment SCANNED
[2023-09-18 09:03] LABS: Platelet Estimate MKD DEC (ADEQ)
[2023-09-18] MEDS: Furosemide 40 MG/4 ML Vial IV ×2 (09:39→16:07)
[2023-09-18] MEDS: Pantoprazole Sodium 40 MG in 0.9% Normal Saline (100mL MB+) 100 ML 330 MG IV ×2 (09:40→21:01)
[2023-09-18] MEDS: 0.9% Normal Saline (250mL Bag) 250 ML 15 ML IV (09:40)
--- NOTE | 2023-09-18 10:40 | RAD_ITS ---
STUDY: X-RAY CHEST REASON FOR EXAM: Female, 63 years old. Line p[lace ment TECHNIQUE: Single AP portable view of the chest. COMPARISON: Comparison is made with prior study dated September 16, 2023. FINDINGS: A right-sided internal jugular venous catheter has been placed. The tip is at the junction of the superior vena cava and right atrium. EKG electrodes are seen. Worsening bilateral airspace disease suggestive of developing pulmonary edema. There is no demonstrated pleural abnormality. There is mild cardiac enlargement. Normal mediastinum and rebekah. Normal visualized pulmonary arteries. Normal visualized aortic arch and descending thoracic aorta. Normal visualized thoracic spine. Normal visualized ribs, clavicles, and shoulders. There is no demonstrated abnormality of the visualized soft tissue structures of the upper abdomen. RAD/Chest 1 View (Portable) IMPRESSION: Diffuse bilateral airspace disease suggestive of pulmonary edema. Cardiomegaly. The tip of the right internal jugular venous catheter is at the junction of the superior vena cava and right atrium. Electronically Signed: Maximo Obrien MD at 12:07 EST ,
--- NOTE | 2023-09-18 10:51 | PCM.PN.REN ---
Subjective Subjective Alert to name. No overnight events. Just had nontunneled HD catheter placed right IJ. Objective Data Objective Data Vital Signs: Vital Signs Temp Pulse Resp BP Pulse Ox O2 Del Method O2 Flow Rate 97.7 F L 60 18 143/45 H 96 Nasal Cannula 5 09/18/23 06:36 09/18/23 06:46 09/18/23 06:46 09/18/23 06:36 09/18/23 08:40 09/18/23 08:40 09/18/23 08:40 FiO2 30 09/18/23 06:46 Oxygen Flow Rate (L/min) 5 Oxygen Delivery Method Nasal Cannula Weight: 140 kg Body Mass Index (BMI) 51.3 Intake & Output: Intake and Output for Last 24 Hours 09/16/23 09/17/23 09/18/23 23:59 23:59 23:59 Intake Total 585 / 585 0 / 0 1427 / 1427 Output Total 1075 / 1075 500 / 500 525 / 525 Balance -490 / -490 -500 / -500 902 / 902 Lab / Micro Data 09/18/23 06:45 09/18/23 06:45 Labs: Laboratory Results - last 24 hr 09/16/23 09:20: Diff Path Review Reviewed 09/17/23 10:53: POC Glucose 85 09/17/23 12:25: Blood Type B POSITIVE, Antibody Screen NEGATIVE, Crossmatch See Detail 09/17/23 16:28: POC Glucose 95 09/17/23 22:56: POC Glucose 90 09/18/23 06:14: POC Glucose 87 09/18/23 06:45: WBC 8.7, RBC 2.41 L, Hgb 6.8 L, Hct 21.8 L, MCV 90.5, MCH 28.2, MCHC 31.2 L, RDW Std Deviation 53.7 H, RDW Coeff of Vlad 16.5 H, Plt Count 24 L*, MPV Not Reportable, Immature Gran % (Auto) 3.200 H, Neut % (Auto) 80.8 H, Lymph % (Auto) 6.6 L, [place] % (Auto) 7.6, Eos % (Auto) 1.7, Baso % (Auto) 0.1, Absolute Neuts (auto) 7.0, Absolute Lymphs (auto) 0.57 L, Nucleated RBC % 0.6, Differential Comment SCANNED, Diff Path Review November foll, Platelet Estimate MKD DEC, Sodium 144, Potassium 4.7, Chloride 118 H, Carbon Dioxide 25.0, Anion Gap 1 L, BUN 74 H, Creatinine 3.80 H, Estim Creat Clear Calc 21.02, Est GFR (MDRD) Af Amer 15 L, Est GFR (MDRD) Non-Af 13 L, BUN/Creatinine Ratio 19.5, Glucose 87, Calcium 8.7 Micro: Microbiology 09/16/23 09:20 Mucosa - Nose SARS-CoV-2, Influenza & RSV (PCR) - Final ABG Data ABG results: ABG 09/17/23 11:58 Specimen Type ART Sample Site R Radial pH 7.22 L Bicarbonate Actual 26.6 H Total CO2 29 Base Excess -1 O2 Saturation 91 L O2 % 4.0 ABG pCO2 64.8 H ABG pO2 75 Madi Test Positive O2 Delivery Device Cannula Vent Mode Not entered Physical Exam Narrative Drowsy, alert to name no obvious distress s1s2 no murmurs lungs rales anteriorly and posteriorly. On oxygen abdomen soft, non tender edema b/l legs beach + Assessment & Plan Assessment/Plan (1) GASTON (acute kidney injury): PLAN: Baseline creatinine was around 2.0, sustained GASTON during last 2 previous admissions. Serologic workup negative. Obstructive workup negative. Massive proteinuria of 10 g. Presumably this is diabetes related. Currently has volume overload. - hypervolemic GASTON superimposed on CKD: SCr over past few weeks 3.6-4 with mild uremia and fluid overload. No improvement in kidney function and patient is heading towards needing FAMILY AND CONSUMER SCIENCES PROFESSOR. Last admission and again yesterday this was discussed with patient's family who are in agreement with hemodialysis. We also discussed this with patient last admission when she was more alert and oriented and she was in agreement for hemodialysis if needed. Non-tunneled hemodialysis catheter placed today, appreciate surgery placing line. Patient to undergo hemodialysis today and again tomorrow. Will remove fluid with dialysis as patient/blood pressure tolerates. - Thrombocytopenia. Previous workup showed normal LDH and haptoglobin, unlikely HUS or any form of TMA. Hematology has been consulted and opinion is multi-factoral related to Zyvox, sepsis, low probability of HIT, most likely drug induced. Zyvox was discontinued last admission. Heparin induced Plt ab pending. Patient received platelet transfusion today. She is also to receive PRBC during dialysis today, hgb 6.8 today. - eventually will need tunneled catheter by next week if the platelet counts are better - Outpatient hemodialysis arrangements underway, diagnosis GASTON
[2023-09-18] MEDS: Menthol/Lanolin/Calamine/Znox 113 GM Tube 1 APPLIC TOPICAL ×2 (10:55→20:54)
[2023-09-18] MEDS: Omega-3 Acid Ethyl Esters 1 GM Capsule PO ×2 (10:56→20:53)
[2023-09-18] MEDS: Fenofibrate 48 MG Tablet PO (10:56)
[2023-09-18] MEDS: Escitalopram Oxalate 10 MG Tablet PO (10:56)
--- NOTE | 2023-09-18 11:01 | PCM.OPRPT ---
Report of Operation Date of Procedure: 09/18/23 Pre-Operative Diagnosis: Acute on chronic kidney disease, thrombocytopenia Post-Operative Diagnosis: Same Surgery/Procedure Performed:: Insertion of right IJ temporary dialysis catheter, use of ultrasound Surgeon: Suzette Ruiz Type of Anesthesia: Local Specimen's removed: none Estimated Blood Loss (mL): 10 cc Description of Procedure: Procedure: A time-out was completed to verify correct patient, indication, medication allergies, procedure, coagulation studies, informed consent signed, and equipment needed. The patient was placed in the supine position for a central line placement to the right IJ vein. The patients right neck was prepped using chlorhexidine and a full body sterile drape was applied. 1% lidocaine was used to anesthetize the surrounding skin. Unit of platelets was given prior to procedure due to patient's thrombocytopenia of 24. A Mahurkar Elite 12 [place]ian x16 cm (ref [id number] lot [id number]) Temporary hemodialysis catheter introduced into the internal jugular vein using the modified Seldinger technique with the assistance of ultrasound. The site was dilated up twice in a stepwise fashion. The catheter was threaded smoothly over the guidewire, the guidewire was removed easily, nonpulsatile blood returned. All ports were aspirated of air and flushed with sterile saline no heparin was placed as patient has platelets of 24. The catheter was sutured in place and covered with an occlusive dressing impregnated with chlorhexidine. Chest x-ray done showed catheter in place in the proximal SVC and no pneumothorax on my read. Dialysis aware. Grafts/Implants Used: Mahurkar Elite 12 [place]ian x16 cm (ref [id number] lot [id number])
[2023-09-18] MEDS: Gabapentin 100 MG Capsule 200 MG PO ×2 (11:02→15:59)
[2023-09-18 11:48] LABS: Hepatitis B Surface Antigen Non-Reactive (Nonreactive)
[2023-09-18 11:54] LABS: Bedside Glucose 80 mg/dL (74-106)
[2023-09-18] MEDS: PureFlow B 2K Dialysis Soln 1 BAG 6 BAG PF (11:59)
[2023-09-18] MEDS: 0.9% Normal Saline 1,000 ML IV.SOLN. 1000 ML OPERA.SITE (11:59)
--- NOTE | 2023-09-18 13:23 | NURSING ---
PRBC GIVEN VIA TEMP DIAYLSIS CATH. FIRST UNIT COMPLETED AT 1302. SECOND UNIT STARTED AT 1302.
--- NOTE | 2023-09-18 15:19 | PCM.PROGNOTE ---
Objective Data Objective Data Vital Signs: Vital Signs Temp Pulse Resp BP Pulse Ox O2 Del Method O2 Flow Rate 96.5 F L 66 18 136/76 H 95 Nasal Cannula 5 09/18/23 13:52 09/18/23 14:04 09/18/23 14:04 09/18/23 14:04 09/18/23 14:04 09/18/23 14:04 09/18/23 14:04 FiO2 30 09/18/23 06:46 Oxygen Flow Rate (L/min) 5 Oxygen Delivery Method Nasal Cannula Weight: 308 lb 10.354 oz Body Mass Index (BMI) 51.3 Intake & Output: Intake and Output for Last 24 Hours 09/16/23 09/17/23 09/18/23 23:59 23:59 23:59 Intake Total 585 / 585 0 / 0 1759 / 1759 Output Total 1075 / 1075 500 / 500 1755 / 1755 Balance -490 / -490 -500 / -500 4 / 4 Lab / Micro Data 09/18/23 06:45 09/18/23 06:45 Labs: Laboratory Results - last 24 hr 09/17/23 12:25: Crossmatch See Detail 09/17/23 16:28: POC Glucose 95 09/17/23 22:56: POC Glucose 90 09/18/23 06:14: POC Glucose 87 09/18/23 06:45: WBC 8.7, RBC 2.41 L, Hgb 6.8 L, Hct 21.8 L, MCV 90.5, MCH 28.2, MCHC 31.2 L, RDW Std Deviation 53.7 H, RDW Coeff of Vlad 16.5 H, Plt Count 24 L*, MPV Not Reportable, Immature Gran % (Auto) 3.200 H, Neut % (Auto) 80.8 H, Lymph % (Auto) 6.6 L, [place] % (Auto) 7.6, Eos % (Auto) 1.7, Baso % (Auto) 0.1, Absolute Neuts (auto) 7.0, Absolute Lymphs (auto) 0.57 L, Nucleated RBC % 0.6, Differential Comment SCANNED, Diff Path Review May , Platelet Estimate MKD DEC, Sodium 144, Potassium 4.7, Chloride 118 H, Carbon Dioxide 25.0, Anion Gap 1 L, BUN 74 H, Creatinine 3.80 H, Estim Creat Clear Calc 21.02, Est GFR (MDRD) Af Amer 15 L, Est GFR (MDRD) Non-Af 13 L, BUN/Creatinine Ratio 19.5, Glucose 87, Calcium 8.7, Hep Bs Antigen Non-Reactive 09/18/23 11:36: POC Glucose 80 Micro: Microbiology 09/16/23 09:20 Mucosa - Nose SARS-CoV-2, Influenza & RSV (PCR) - Final Radiography Diagnostic Testing: Radiology Impression Chest X-Ray 09/18/23 10:40 IMPRESSION: Diffuse bilateral airspace disease suggestive of pulmonary edema. Cardiomegaly. The tip of the right internal jugular venous catheter is at the junction of the superior vena cava and right atrium. Electronically Signed: Maximo Obrien MD at 12:07 EST ,
--- NOTE | 2023-09-18 15:41 | PN_ITS ---
Subjective Subjective Patient seen and examined. She was a bit more lethargic today. She had no active complaints. Hemoglobin is down to 6.8. She is on 5 L of oxygen. Review of systems otherwise negative. Objective Data Objective Data Vital Signs: Vital Signs Temp Pulse Resp BP Pulse Ox O2 Del Method O2 Flow Rate 97.5 F L 67 17 136/80 H 93 Nasal Cannula 5 09/18/23 15:26 09/18/23 15:26 09/18/23 15:26 09/18/23 15:26 09/18/23 15:26 09/18/23 15:26 09/18/23 15:26 FiO2 30 09/18/23 06:46 Oxygen Flow Rate (L/min) 5 Oxygen Delivery Method Nasal Cannula Weight: 308 lb 10.354 oz Body Mass Index (BMI) 51.3 Intake & Output: Intake and Output for Last 24 Hours 09/16/23 09/17/23 09/18/23 23:59 23:59 23:59 Intake Total 585 / 585 0 / 0 1759 / 1759 Output Total 1075 / 1075 500 / 500 2155 / 2155 Balance -490 / -490 -500 / -500 -396 / -396 Lab / Micro Data 09/18/23 06:45 09/18/23 06:45 Labs: Laboratory Results - last 24 hr 09/17/23 12:25: Crossmatch See Detail 09/17/23 16:28: POC Glucose 95 09/17/23 22:56: POC Glucose 90 09/18/23 06:14: POC Glucose 87 09/18/23 06:45: WBC 8.7, RBC 2.41 L, Hgb 6.8 L, Hct 21.8 L, MCV 90.5, MCH 28.2, MCHC 31.2 L, RDW Std Deviation 53.7 H, RDW Coeff of Vlad 16.5 H, Plt Count 24 L*, MPV Not Reportable, Immature Gran % (Auto) 3.200 H, Neut % (Auto) 80.8 H, Lymph % (Auto) 6.6 L, [place] % (Auto) 7.6, Eos % (Auto) 1.7, Baso % (Auto) 0.1, Absolute Neuts (auto) 7.0, Absolute Lymphs (auto) 0.57 L, Nucleated RBC % 0.6, Differential Comment SCANNED, Diff Path Review November foll, Platelet Estimate MKD DEC, Sodium 144, Potassium 4.7, Chloride 118 H, Carbon Dioxide 25.0, Anion Gap 1 L, BUN 74 H, Creatinine 3.80 H, Estim Creat Clear Calc 21.02, Est GFR (MDRD) Af Amer 15 L, Est GFR (MDRD) Non-Af 13 L, BUN/Creatinine Ratio 19.5, Glucose 87, Calcium 8.7, Hep Bs Antigen Non-Reactive 09/18/23 11:36: POC Glucose 80 Micro: Microbiology 09/16/23 09:20 Mucosa - Nose SARS-CoV-2, Influenza & RSV (PCR) - Final Radiography Diagnostic Testing: Radiology Impression Chest X-Ray 09/18/23 10:40 IMPRESSION: Diffuse bilateral airspace disease suggestive of pulmonary edema. Cardiomegaly. The tip of the right internal jugular venous catheter is at the junction of the superior vena cava and right atrium. Electronically Signed: Maximo Obrien MD at 12:07 EST , Physical Exam Const alert Constitutional Narrative: morbidly obese Orientation / Consciousness: lethargic HEENT normocephalic, head/scalp atraumatic and moist oral mucous membranes Eyes PERRL and EOMs intact bilaterally Neck no lymphadenopathy, supple and no JVD Lymph Lymphatic: no lymphadenopathy noted and no lymphedema noted Resp Resp Narrative: moderately diminished breath sounds bilaterally, no wheezes or crackles. On 5 L of oxygen by nasal canula Cardio regular rate, regular rhythm, S1 normal heart sound, S2 normal heart sound and no murmurs GI normal to inspection, nondistended, normoactive bowel sounds, soft to palpation, non-tender and non-distended GI Narrative: obese abdomen Extremity Extremity Narrative: minimal bilateral lower extremity edema General Extremity: no tenderness to palpation of joints or extremities Skin Skin Narrative: has ecchymosis over right half of chin General Skin Exam: no breakdown Neuro CN's II-XII intact bilaterally, no focal motor deficits, no sensory deficits noted and deep tendon reflexes 2+ bilaterally Motor Exam: general weakness Psych thought process normal, cooperative and affect normal Mood & Affect: flat affect Assessment & Plan Assessment/Plan (1) Thrombocytopenia: (2) Dyspnea: (3) Hypoxemia: (4) CHF (congestive heart failure): (5) Respiratory failure with hypoxia and hypercapnia: PLAN: Plan #Acute on chronic hypoxic respiratory failure due to acute exacerbation of heart failure and fluid overload * Patient requiring 5 L of oxygen. Was very short of breath in her long term. * Has a history of CKD which has been worsening and per nephrology she likely needs to start dialysis. * On IV Lasix 40 mg twice daily. * nephrology consulted for initiation of hemodialysis. * breathing treatment with bronchodilators * titrate oxygen to maintain sats >90% * Had dialysis catheter inserted today. * #CKD V * Patient has worsening CKD.CR was 3.9 yesterday. * nephrology on board. Likely needs initiation of dialysis * Dialysis catheter inserted today for initiation of dialysis as per nephrology. * #Thrombocytopenia * Platelets are still 24 today. * Hematology was consulted during previous admission and it was thought that the thrombocytopenia was due to the Zyvox and her acute illness. * Hematology on board and thinks this is likely due to her meds she was on. Conservative management now. Will monitor. # Acute on chronic anemia: Hemoglobin is down to 6.8 today. On IV pantoprazole. Gastroenterology consulted. Transfused 2 units of packed red blood cells today. #Type 2 diabetes mellitus:on latus 13 units qhs. ISS. Accuchecks ACHS. #Hypothyroidism: On Synthroid. This is well-controlled as TSH has been elevated. Continue Synthroid. #Super morbid obesity: BMI is 51.5. Complicates acute care, expected recovery and prognosis DVT prophylaxis: SCDs CODE STATUS: full code * Charges/Coding Visit Charges Inpatient E&M: 43568 Subs Hosp L3
[2023-09-18] MEDS: Sucralfate 1 GM Tablet PO (15:55)
[2023-09-18] MEDS: Acetaminophen 325 MG Tablet 650 MG PO (15:59)
[2023-09-18] MEDS: 0.9% Saline Lock 10 ML Syringe IV (16:08)
[2023-09-18 16:29] LABS: Bedside Glucose 126 mg/dL (74-106)
[2023-09-18 17:07] LABS: Heparin-Induced Plt Ab 0.069 OD (0.000-0.400)
--- NOTE | 2023-09-18 19:13 | EX.PCM.CON.G ---
HPI Consult Data Date of Consult: 09/18/23 HPI Narrative Reason for Consultation: Anemia HPI Narrative: TOBIN BIGGS, is a 63 F who was recently discharged from the hospital after being admitted and managed for acute on combined respiratory failure due to acute on chronic hypoxic and hypercapnic respiratory failure due to fluid overload in the setting of GASTON on CKD. [facility] on 09[facility]23. However she apparently got short of breath today. She was saturating 86% on 4 L of oxygen. She had a cough but denied any chest pain or palpitations, dizziness, nausea vomiting or any other symptoms. She was initially thought that she had hypoglycemia in the [facility] but on arrival in the ED her blood glucose was 105. Of note, during her previous admission nephrology saw her in light of her increasing creatinine and recommendation was that patient will need to be started on dialysis sooner rather than later. Vitals in the ED where blood pressure 118/44, pulse rate of 60 and respiratory rate of 20. Temperature was 95.8 Fahrenheit and she was saturating at 92% on 5 L of oxygen. CBC showed hemoglobin of 7.5 with WBC of 5.4 and platelets of 24. Chemistry showed sodium of 141 with chloride of 115 and creatinine of 3.9. BNP is 221. Chest x-ray showed evidence of cardiomegaly and CHF. She has been admitted to be managed for hypoxia in the setting of fluid overload from cardiomegaly and CHF and worsening CKD. She is being seen by hematology oncology for possible drug-induced thrombocytopenia. I was asked to see her due to worsening anemia. I saw her previous for acute on chronic anemia, recurrent upper GI bleed due to gastric ulcer. Her hemoglobin 8.1 on admit, down trended to hemoglobin 6.9. . Baseline hemoglobin appears to be around 7-8. She also does have history of peptic ulcer disease with duodenitis requiring EGD in 04/2023. Patient denies any dark or bloody stools. S/p 2 units packed red blood cells. EGD on 08/30 that showed an oozing gastric ulcer with pigmented material that was injected and treated with heater probe as well as acute duodenitis was biopsied. Hemoglobin stable post EGD. [facility] Medical History (Updated 09/17/23 @ 15:12 by Leigh ROME, WENDYC) (HFpEF) heart failure with preserved ejection fraction Acute on chronic anemia GASTON (acute kidney injury) Anemia Anxiety Anxiety and depression Chest pain Chronic acquired lymphedema Chronic anemia Chronic kidney disease Chronic kidney disease CKD (chronic kidney disease), stage III Congestive heart failure COPD (chronic obstructive pulmonary disease) CPAP (continuous positive airway pressure) dependence Current use of insulin Diabetes Diabetes mellitus with diabetic polyneuropathy Diabetes mellitus, type 2 Gastroparesis History of diabetes mellitus History of fever History of renal insufficiency History of stress test HLD (hyperlipidemia) HTN (hypertension) Hypothyroidism Hypoxia Irregular heartbeat Lower extremity edema Malaise Morbid obesity On home oxygen therapy SACHIN (obstructive sleep apnea) Pleural effusion, left Pulmonary edema Restless legs Retinal hemorrhage Sleep apnea Home Medications atorvastatin 10 mg tablet 10 mg PO QHS cholesterol 09/24/22 [History Last Taken 04/13/23] escitalopram oxalate 10 mg tablet 10 mg PO DAILY depression 09/24/22 [History Last Taken 04/13/23] fenofibrate nanocrystallized 48 mg tablet (Tricor) 48 mg PO DAILY cholesterol 09/24/22 [History Last Taken 04/13/23] gabapentin 100 mg capsule 200 mg PO BID PAIN 03/05/23 [History Last Taken 04/13/23] levothyroxine 150 mcg tablet 150 mcg PO DAILY@0600 THYROID 03/05/23 [History Last Taken Unknown] ropinirole 4 mg tablet 4 mg PO QHS restless legs 03/05/23 [History Last Taken 05/01/23] dulaglutide 0.75 mg/0.5 mL subcutaneous pen injector (Trulicity) 0.75 mg subcut WE DIABETES 04/14/23 [History Last Taken 08/15/23] gabapentin 400 mg capsule 400 mg PO QHS PAIN 04/14/23 [History Last Taken 04/13/23] omega 9-aek-tje-fish oil 300 mg-1,000 mg capsule (Fish Oil) 1 cap PO BID VITAMIN 04/14/23 [History Last Taken 04/13/23] pen needle, diabetic 31 gauge x 1/4 (Easy Touch) 04/14/23 [History Last Taken Unknown] pantoprazole 40 mg tablet,delayed release 40 mg PO BID heartburn #60 tabs 05/08/23 [Rx Last Taken Unknown] sucralfate 1 gram tablet (Carafate) 1 g PO BID heartburn #60 tabs 05/08/23 [Rx Last Taken Unknown] acetaminophen 325 mg tablet 650 mg PO Q6H PRN pain 08/26/23 [History Last Taken Unknown] difluprednate 0.05 % eye drops 1 drp ophthalmic (eye) 4X/DAY bleeding behind eyes 08/26/23 [History Last Taken Unknown] nystatin 100,000 unit/gram topical powder (Nystop) 1 applic topical BID yeast 08/26/23 [History Last Taken Unknown] furosemide 40 mg tablet 40 mg PO DAILY chf #0 tabs 09/01/23 [Rx Last Taken Unknown] insulin glargine-yfgn 100 unit/mL (3 mL) subcutaneous pen 13 unit (0.13 mL) subcut QHS diabetes #0 mL 09/01/23 [Rx Last Taken Unknown] insulin lispro 100 unit/mL subcutaneous pen (Humalog KwikPen (U-100) Insulin) 10 unit (0.1 mL) subcut TIDAC diabetes #0 mL 09/01/23 [Rx Last Taken Unknown] artificial tears(hypromellose) 0.3 % eye gel 1 drp EACH EYE Q2H PRN dry eye(s) 09/07/23 [History Last Taken Unknown] flash glucose sensor (FreeStyle Bandar 2 Sensor kit) 09/16/23 [History Last Taken Unknown] Allergy/AdvReac Type Severity Reaction Status Date / Time No Known Allergies Allergy Verified 09/16/23 08:52 Family History Mother Heart disease Hypertension Diabetes Father Prostate cancer Surgical History H/O cataract removal with insertion of prosthetic lens History of cholecystectomy History of surgery on lower extremity Social History housing: [facility] Smoking Status: Never smoker alcohol intake: never substance use type: does not use ROS Review of Systems ROS Unobtainable: due to mental condition and due to mental status Constitutional Constitutional: Reports lethargy Physical Exam Const alert Constitutional Narrative: morbidly obese Orientation / Consciousness: lethargic HEENT normocephalic, head/scalp atraumatic and moist oral mucous membranes Eyes PERRL and EOMs intact bilaterally Neck no lymphadenopathy, supple and no JVD Lymph Lymphatic: no lymphadenopathy noted and no lymphedema noted Resp Resp Narrative: moderately diminished breath sounds bilaterally, no wheezes or crackles. On 5 L of oxygen by nasal canula Cardio regular rate, regular rhythm, S1 normal heart sound, S2 normal heart sound and no murmurs GI normal to inspection, nondistended, normoactive bowel sounds, soft to palpation, non-tender and non-distended GI Narrative: obese abdomen Extremity Extremity Narrative: minimal bilateral lower extremity edema General Extremity: no tenderness to palpation of joints or extremities Skin Skin Narrative: has ecchymosis over right half of chin General Skin Exam: no breakdown Neuro CN's II-XII intact bilaterally, no focal motor deficits, no sensory deficits noted and deep tendon reflexes 2+ bilaterally Motor Exam: general weakness Psych thought process normal, cooperative and affect normal Mood & Affect: flat affect Lab / Micro Data 09/18/23 06:45 09/18/23 06:45 Labs: Laboratory Results - last 24 hr 09/17/23 10:06: Heparin-induced Plt Ab 0.069 09/17/23 12:25: Crossmatch See Detail 09/17/23 16:28: POC Glucose 95 09/17/23 22:56: POC Glucose 90 09/18/23 06:14: POC Glucose 87 09/18/23 06:45: WBC 8.7, RBC 2.41 L, Hgb 6.8 L, Hct 21.8 L, MCV 90.5, MCH 28.2, MCHC 31.2 L, RDW Std Deviation 53.7 H, RDW Coeff of Vlad 16.5 H, Plt Count 24 L*, MPV Not Reportable, Immature Gran % (Auto) 3.200 H, Neut % (Auto) 80.8 H, Lymph % (Auto) 6.6 L, [place] % (Auto) 7.6, Eos % (Auto) 1.7, Baso % (Auto) 0.1, Absolute Neuts (auto) 7.0, Absolute Lymphs (auto) 0.57 L, Nucleated RBC % 0.6, Differential Comment SCANNED, Diff Path Review May foll, Platelet Estimate MKD DEC, Sodium 144, Potassium 4.7, Chloride 118 H, Carbon Dioxide 25.0, Anion Gap 1 L, BUN 74 H, Creatinine 3.80 H, Estim Creat Clear Calc 21.02, Est GFR (MDRD) Af Amer 15 L, Est GFR (MDRD) Non-Af 13 L, BUN/Creatinine Ratio 19.5, Glucose 87, Calcium 8.7, Hep Bs Antigen Non-Reactive 09/18/23 11:36: POC Glucose 80 09/18/23 16:05: POC Glucose 126 H Imaging Radiology Impression Chest X-Ray 09/18/23 10:40 IMPRESSION: Diffuse bilateral airspace disease suggestive of pulmonary edema. Cardiomegaly. The tip of the right internal jugular venous catheter is at the junction of the superior vena cava and right atrium. Electronically Signed: Maximo Obrien MD at 12:07 EST , Assessment & Plan Assessment/Plan (1) GASTON (acute kidney injury): PLAN: 63-year-old with end-stage renal disease, acute on chronic renal failure, possible drug-induced thrombocytopenia, CHF, recent respiratory failure with hypoxia and hypercapnia who is having worsening anemia possibly secondary to GI blood loss from previous peptic ulcer disease. Recommend upper endoscopy to evaluate upper GI tract as she had performed previously. Recommend n.p.o. past midnight transfuse hemoglobin for hematocrit less than 30% and hemoglobin less than 7. Charges/Coding Visit Charges Inpatient E&M: 76044 Init Hosp L3
[2023-09-18] MEDS: Atorvastatin Calcium 10 MG Tablet PO (20:53)
[2023-09-18] MEDS: Gabapentin 400 MG Capsule PO (20:53)
[2023-09-18] MEDS: Pramipexole Di-HCl 0.5 MG Tablet 1.5 MG PO (20:53)
[2023-09-18 22:37] LABS: Bedside Glucose 114 mg/dL (74-106)
[2023-09-19] VITALS (23 sets, daily range): BP systolic 72–158; BP diastolic 56–87; PULSE 68–86; RESP 12–25; TEMP 36.4–36.8; O2SAT 90–99; BMI 50.8; BMI 50.9; BMI 50.3
[2023-09-19 03:25] LABS: Bedside Glucose 118 mg/dL (74-106)
[2023-09-19] MEDS: Miconazole Nitrate 43 GM Bottle 1 APPLIC TOPICAL ×3 (05:32→21:24)
[2023-09-19 06:45] LABS: Bedside Glucose 111 mg/dL (74-106)
[2023-09-19 07:05] LABS: Hematocrit 26.1 % (37-47); Hemoglobin 8.2 g/dL (12.0-15.0); Mean Corp Hgb Conc 31.4 g/dL (32-36); Mean Corpuscular Hgb 27.8 pg (27.0-32.0); Mean Corpuscular Volume 88.5 fL (81-99); Mean Platelet Vol. 12.4 fl (6.2-12.0); POSITIVE COUNT YES; POSITIVE DIFFERENTIAL YES; POSITIVE MORPHOLOGY YES; RBC Distribution Width CV 15.9 % (11.6-14.6); RBC Distribution Width SD 51.2 fl (35.1-43.9); Red Blood Count 2.95 M/mm3 (4.2-5.4); White Blood Count 7.6 K/mm3 (4.4-11.0)
[2023-09-19 07:08] LABS: International Normalized Ratio 1.9; Prothrombin Time (Protime)PT. 21.7 SECONDS (11.7-14.9)
[2023-09-19 07:14] LABS: Partial Thromboplast Time 96.1 Seconds (24.1-36.2)
[2023-09-19 07:17] LABS: Differential Indicated MANUAL DIFF
[2023-09-19 07:18] LABS: Platelet Count 42 K/mm3 (150-450)
[2023-09-19 07:34] LABS: Anion Gap 2 (5-15); BUN 58 mg/dL (7-18); BUN/Creat Ratio 20.3 RATIO (10-20); Calcium,Total 8.7 mg/dL (8.5-10.1); Chloride 114 mmol/L (98-107); Creatinine, Serum 2.86 mg/dL (0.55-1.02); EST Glomerular Filtration Rate 18 mL/min (>60); Est Glom Filt Rate - Afr Amer 21 mL/min (>60); Estimated Creatinine Clearance 27.75 ml/min; Glucose 111 mg/dL (74-106); Sodium Level 142 mmol/L (136-145); Thyroid Stim Hormone (TSH) 4.07 uIU/mL (0.358-3.74)
[2023-09-19] MEDS: 0.9% Normal Saline 1,000 ML IV.SOLN. 1000 ML OPERA.SITE (07:50)
[2023-09-19] MEDS: 0.9% Saline Lock 10 ML Syringe IV ×3 (07:51→17:29)
[2023-09-19] MEDS: PureFlow B 2K Dialysis Soln 1 BAG 6 BAG PF (07:51)
--- NOTE | 2023-09-19 08:33 | PN.SURG_ITS ---
Subjective Subjective .Temporary dialysis catheter working well, patient's platelets are up to 43. Patient is more alert Objective Data Objective Data Vital Signs: Vital Signs Temp Pulse Resp BP Pulse Ox O2 Del Method O2 Flow Rate 97.7 F L 75 19 H 146/74 H 94 Bi-pap 5 09/19/23 05:31 09/19/23 08:23 09/19/23 08:23 09/19/23 08:23 09/19/23 08:23 09/19/23 08:23 09/19/23 02:44 FiO2 45 09/19/23 08:23 Oxygen Flow Rate (L/min) 5 Oxygen Delivery Method Bi-pap Weight: 305 lb 8.971 oz Body Mass Index (BMI) 50.9 Intake & Output: Intake and Output for Last 24 Hours 09/17/23 09/18/23 09/19/23 23:59 23:59 23:59 Intake Total 0 / 0 2286 / 2286 Output Total 500 / 500 3530 / 3530 550 / 550 Balance -500 / -500 -1244 / -1244 -550 / -550 Lab / Micro Data 09/19/23 06:45 09/19/23 06:45 Labs: Laboratory Results - last 24 hr 09/17/23 10:06: Heparin-induced Plt Ab 0.069 09/17/23 12:25: Crossmatch See Detail 09/18/23 06:45: MPV Not Reportable, Differential Comment SCANNED, Diff Path Review Debbie nguyen, Platelet Estimate MKD DEC, Hep Bs Antigen Non-Reactive 09/18/23 11:36: POC Glucose 80 09/18/23 16:05: POC Glucose 126 H 09/18/23 22:11: POC Glucose 114 H 09/19/23 03:04: POC Glucose 118 H 09/19/23 06:26: POC Glucose 111 H 09/19/23 06:45: WBC 7.6, RBC 2.95 L, Hgb 8.2 L, Hct 26.1 L, MCV 88.5, MCH 27.8, MCHC 31.4 L, RDW Std Deviation 51.2 H, RDW Coeff of Vlad 15.9 H, Plt Count 42 L*, MPV 12.4 H, Neut % (Auto) Not Reportable, PT 21.7 H, INR 1.9, APTT 96.1 H*, Sodium 142, Potassium 4.0, Chloride 114 H, Carbon Dioxide 26.0, Anion Gap 2 L, BUN 58 H, Creatinine 2.86 H, Estim Creat Clear Calc 27.75, Est GFR (MDRD) Af Amer 21 L, Est GFR (MDRD) Non-Af 18 L, BUN/Creatinine Ratio 20.3 H, Glucose 111 H, Calcium 8.7, TSH 4.07 H Micro: Microbiology 09/16/23 09:20 Mucosa - Nose SARS-CoV-2, Influenza & RSV (PCR) - Final Radiography Diagnostic Testing: Radiology Impression Chest X-Ray 09/18/23 10:40 IMPRESSION: Diffuse bilateral airspace disease suggestive of pulmonary edema. Cardiomegaly. The tip of the right internal jugular venous catheter is at the junction of the superior vena cava and right atrium. Electronically Signed: Maximo Obrien MD at 12:07 EST , Physical Exam Narrative Right IJ temporary dialysis catheter in place working well currently on dialysis Const no apparent distress Constitutional Narrative: Patient is much more alert than yesterday Resp Resp Narrative: Patient's BiPAP in place Assessment & Plan Assessment/Plan (1) ESRF (end stage renal failure): PLAN: Patient's temporary dialysis catheter is working well. Will plan to convert to a tunneled dialysis catheter next week if she is likely going to require outpatient dialysis. Hopefully patient's platelets will continue to improve. Suzette Ruiz M.D. Pager: [phone] [facility] [address] [place] [address], [facility], [address] [place] [address] Office: [phone] Charges/Coding Visit Charges Inpatient E&M: 92594 Subs Hosp L2
[2023-09-19 08:55] LABS: Eosinophil 5 % (0-5); Lymphocyte 6 % (19-41); Monocyte 11 % (0-10); Neutrophil-Segmented 78 % (47-70); Nucleated Red Bld Cells,Manual 1 % (0-5); Total Cells Counted 100 (MANUAL DIFF)
[2023-09-19 08:57] LABS: Platelet Estimate MKD DEC (ADEQ); Red Cell Morphology NORM C+C NORMAL (NORM C&C)
[2023-09-19 09:17] LABS: Hemoglobin A1c 7.6 % (3.8-5.6)
[2023-09-19 10:11] LABS: Pathologist Review Reviewed
[2023-09-19] MEDS: 0.9% Normal Saline (500mL Bag) 500 ML 15 ML IV (10:55)
--- NOTE | 2023-09-19 10:55 | CASEMGMT ---
CLEM CM to pt room at this time to provide options regarding HD. Pt is off the floor at a procedure at this time. Will follow once returns.
--- NOTE | 2023-09-19 11:30 | EGD_PTH ---
PATHOLOGY RESULTS PATIENT: TOBIN BIGGS LOC: [facility] U#:[id number] AGE/SX: 63/F ROOM: [facility] RE09/16/[address]: Dr. Mike Hassan DO : 1960 BED: 1 DIS: 09/25/2023 SPEC #: [id number] RECD: 09/22/23 08:04 STATUS: KADI REQ #: [id number] SYDNI: 09/19/23 11:[address]: Holden Calderon DEPT: SURGICAL PATHOLOGY RECD BY: Melva Wen ENTERED: 09/22/23 08:05 SP TYPE: EGD BIOPSY OTHR DR: DO Dr. Justin Dorantes MD Dr. Jayaprakas Dasari, MD Dr. Joseph Prah, MD Dr. Jonathan Vogt, DO Dr. Mansour Isckarus, MD Dr. Nana Yaa Koram, MD Dr. Robert Field, MD Dr. Ryan Jin, MD Dr. Roger Macklis, MD Dr. Steve Walston, MD Judy Aguilera Dr., PULLMAN CONDUCTOR-C Tissues: Gastric mucous membrane Procedures: Surgery Specimen Level IV Comments: @ Ordering doctor for SUIV edited from to @ by TANIA at 09/22/23925 @ Submitting doctor edited from to @ by TANIA at 09/22/23925 HEADER OPERATION: EGD PRE-OP DIAGNOSIS: GI bleed TISSUE SUBMITTED: Lesser curvature biopsy MICROSCOPIC DIAGNOSIS Stomach, lesser curvature, biopsy: Chronic gastritis with focal minimal acute gastritis. Squamocolumnar junctional mucosa with chronic inflammation. See comment. JOSTIN:haroldo 09/23/2023 COMMENT The results of immunohistochemistry for Helicobacter pylori will be reported separately ([id number]). Contamination or mix up between anatomic site is a possibility. Clinical correlation is necessary. MICROSCOPIC DESCRIPTION Slides are reviewed. GROSS DESCRIPTION Received in fixative is one container labeled with the patient's name and designated lesser curvature biopsy. The specimen consists of two irregular fragments of light echavarria soft tissue that in aggregate measure 1.0 x 0.3 x 0.1 cm. The specimen is totally submitted in one cassette. / PORFIRIO:haroldo 09/22/2023 TC:2 CPT: 33068
--- NOTE | 2023-09-19 11:30 | IMM_PTH ---
PATHOLOGY RESULTS PATIENT: TOBIN BIGGS LOC: [facility] U#:[id number] AGE/SX: 63/F ROOM: [facility] RE09/16/[address]: Dr. Mike Hassan DO : 1960 BED: 1 DIS: 09/25/2023 SPEC #: [id number] RECD: 09/22/23 09:26 STATUS: SOUPriyank REQ #: [id number] SYDNI: 09/19/23 11:[address]: Holden Calderon DEPT: IMMUNOHISTOCHEMISTRY RECD BY: Jud Santiago ENTERED: 09/22/23 09:27 SP TYPE: IMMUNO OTHR DR: DO Dr. Justin Dorantes MD Dr. Jayaprakas Dasari, MD Dr. Joseph Prah, MD Dr. Jonathan Vogt, DO Dr. Mansour Isckarus, MD Dr. Nana Yaa Koram, MD Dr. Robert Field, MD Dr. Ryan Jin, MD Dr. Roger Macklis, MD Dr. Steve Walston, DO Dr. Tamera Robotham, MD Tyra Schlabach, COMPOSITE ENGINEER-C Tissues: Stomach, NOS Procedures: H Pylori (initial) PHYSICIAN & [place] [address] SPECIMEN INFORMATION: Tissue Source: Nicolas chavarria Clinical Info: GI bleed Specimen Number: [id number] CPT code: 86654 METHODOLOGY: Deparaffinized sections of prefer/formalin-fixed tissue or PAP/DQ stained slides are incubated with monoclonal/polyclonal antibodies/oligonucleotide probes. Localization is made via biotin free immunoperoxidase method. Appropriate controls are performed and reacted as expected. Results on target cell population are indicated in the following table: RESULTS: ANTIBODY / CLONE RESULT H Pylori (polyclonal) negative These tests were developed and their performance characteristics determined by [facility]. They may not have been cleared or approved by the [place]. Food and Drug Administration. The FDA has determined that such clearance or approval is not necessary. The above immunohistochemical/dualISH markers are ordered and reviewed by the Pathologist. INTERPRETATION: Lesser curvature, biopsy: Negative for Helicobacter pylori organisms. PORFIRIO:haroldo 09/23/2023
--- NOTE | 2023-09-19 11:57 | OP.EGD_ITS ---
Patient Name: Jie Mckoy Procedure Date: 09/19/2023 11:26 AM Date of : 1960 Age: 63 Procedure: Upper GI endoscopy Indications: Iron deficiency anemia Providers: Holden Calderon DO Medicines: Monitored Anesthesia Care Patient Profile: This is a 63 year old female. Refer to note in patient chart for documentation of history and physical. Patient has symptoms of acute abdominal distention and acute vomiting. Complications: No immediate complications. Procedure: Pre-Anesthesia Assessment: - Prior to the procedure, a History and Physical was performed, and patient medications and allergies were reviewed. The patient is competent. The risks and benefits of the procedure and the sedation options and risks were discussed with the patient. All questions were answered and informed consent was obtained. Patient identification and proposed procedure were verified by the physician in the pre-procedure area. Mental Status Examination: alert and oriented. Airway Examination: normal oropharyngeal airway and neck mobility. Respiratory Examination: clear to auscultation. CV Examination: normal. ASA Grade Assessment: IV - A patient with severe systemic disease that is a constant threat to life. After reviewing the risks and benefits, the patient was deemed in satisfactory condition to undergo the procedure. The anesthesia plan was to use monitored anesthesia care (MAC). Immediately prior to administration of medications, the patient was re-assessed for adequacy to receive sedatives. The heart rate, respiratory rate, oxygen saturations, blood pressure, adequacy of pulmonary ventilation, and response to care were monitored throughout the procedure. The physical status of the patient was re-assessed after the procedure. After obtaining informed consent, the endoscope was passed under direct vision. Throughout the procedure, the patient's blood pressure, pulse, and oxygen saturations were monitored continuously. The Endoscope was introduced through the mouth, and advanced to the second part of duodenum. The upper GI endoscopy was accomplished without difficulty. The patient tolerated the procedure well. Scope In: 11:42:33 AM Scope Out: 11:45:37 AM Total Procedure Duration Time 0 hours 3 minutes 4 seconds Findings: One benign-appearing, intrinsic moderate (circumferential scarring or stenosis; an endoscope may pass) stenosis was found 18 to 20 cm from the incisors. This stenosis measured 4 mm (inner diameter) x 3 cm (in length). The stenosis was traversed after dilation. A guidewire was placed and the scope was withdrawn. Dilation was performed with a Savary dilator with no resistance at 42 Fr. The dilation site was examined and showed moderate mucosal disruption. Estimated blood loss was minimal. Patchy severe inflammation characterized by erosions, erythema and friability was found in the cardia. Biopsies were taken with a cold forceps for histology. Verification of patient identification for the specimen was done. Estimated blood loss was minimal. Biopsies were taken with a cold forceps for Helicobacter pylori testing. Verification of patient identification for the specimen was done. Estimated blood loss was minimal. Multiple localized 5 mm erosions with active bleeding were found in the cardia. Coagulation for hemostasis using heater probe was successful. Estimated blood loss was minimal. No gross lesions were noted in the first portion of the duodenum. Impression: - Benign-appearing esophageal stenosis. Dilated. - Acute gastritis. Biopsied. - Erosive gastropathy with active bleeding. Treated with a heater probe. - No gross lesions in the first portion of the duodenum. Recommendation: - Return patient to [facility] for [facility] care. - Full liquid diet today. - Continue present medications. - Await pathology results. Procedure Code(s): --- Professional --- 22706, 59, Esophagogastroduodenoscopy, flexible, transoral; with control of bleeding, any method 27848, Esophagogastroduodenoscopy, flexible, transoral; with insertion of guide wire followed by passage of dilator(s) through esophagus over guide wire 00027, 59,51, Esophagogastroduodenoscopy, flexible, transoral; with biopsy, single or multiple CPT copyright 2021 [employer]. All rights reserved. The codes documented in this report are preliminary and upon whiting machine operator review may be revised to meet current compliance requirements. Holden Calderon DO 09/19/2023 11:57:06 AM This report has been signed electronically. Number of Addenda: 0 Note Initiated On: 09/19/2023 11:26 AM
--- NOTE | 2023-09-19 11:57 | OP.CCLET_ITS ---
09/19/2023 Cortez Smith Do Re : Upper GI endoscopy procedure for Jie Mckoy Dear Dr. Smith This procedure was performed on Tuesday, September 19, 2023. My impressions and recommendations are as follows: Impressions : - Benign-appearing esophageal stenosis. Dilated. - Acute gastritis. Biopsied. - Erosive gastropathy with active bleeding. Treated with a heater probe. - No gross lesions in the first portion of the duodenum. Recommendations : - Return patient to [facility] for ongoing care. - Full liquid diet today. - Continue present medications. - Await pathology results. My findings are described in the full procedure note, which is enclosed. If I can be of further assistance, please feel free to contact me at . Sincerely, Holden Calderon DO 09/19/2023 11:57:06 AM This report has been signed electronically.
[2023-09-19] MEDS: Furosemide 40 MG/4 ML Vial IV ×2 (12:15→17:27)
--- NOTE | 2023-09-19 12:54 | PCM.PROGNOTE ---
Subjective Subjective Patient seen and examined. She was having dialysis. She was on BIPAP. She had no active complaints. Review of systems is otherwise negative. She was on BIPAP but was weaned off and placed on 4L of oxygen. Objective Data Objective Data Vital Signs: Vital Signs Temp Pulse Resp BP Pulse Ox O2 Del Method O2 Flow Rate 97.7 F L 81 20 H 115/70 94 Simple Mask 4 09/19/23 12:42 09/19/23 12:42 09/19/23 12:42 09/19/23 12:42 09/19/23 12:42 09/19/23 12:42 09/19/23 12:42 FiO2 40 09/19/23 10:43 Oxygen Flow Rate (L/min) 4 Oxygen Delivery Method Simple Mask Weight: 302 lb 7.587 oz Body Mass Index (BMI) 50.3 Intake & Output: Intake and Output for Last 24 Hours 09/17/23 09/18/23 09/19/23 23:59 23:59 23:59 Intake Total 0 / 0 2286 / 2286 980 / 980 Output Total 500 / 500 3530 / 3530 2575 / 2575 Balance -500 / -500 -1244 / -1244 -1595 / -1595 Lab / Micro Data 09/19/23 06:45 09/19/23 06:45 Labs: Laboratory Results - last 24 hr 09/17/23 06:42: Diff Path Review Reviewed 09/17/23 10:06: Heparin-induced Plt Ab 0.069 09/17/23 12:25: Crossmatch See Detail 09/18/23 16:05: POC Glucose 126 H 09/18/23 22:11: POC Glucose 114 H 09/19/23 03:04: POC Glucose 118 H 09/19/23 06:26: POC Glucose 111 H 09/19/23 06:45: WBC 7.6, RBC 2.95 L, Hgb 8.2 L, Hct 26.1 L, MCV 88.5, MCH 27.8, MCHC 31.4 L, RDW Std Deviation 51.2 H, RDW Coeff of Vlad 15.9 H, Plt Count 42 L*, MPV 12.4 H, Neut % (Auto) Not Reportable, Total Counted 100, Neutrophils % (Manual) 78 H, Lymphocytes % (Manual) 6 L, Monocytes % (Manual) 11 H, Eosinophils % (Manual) 5, Nucleated RBCs/100 WBC 1, Diff Path Review November, Platelet Estimate MKD DEC, RBC Morphology NORM C+C, PT 21.7 H, INR 1.9, APTT 96.1 H*, Sodium 142, Potassium 4.0, Chloride 114 H, Carbon Dioxide 26.0, Anion Gap 2 L, BUN 58 H, Creatinine 2.86 H, Estim Creat Clear Calc 27.75, Est GFR (MDRD) Af Amer 21 L, Est GFR (MDRD) Non-Af 18 L, BUN/Creatinine Ratio 20.3 H, Glucose 111 H, Hemoglobin A1c 7.6 H, Calcium 8.7, TSH 4.07 H Micro: Microbiology 09/16/23 09:20 Mucosa - Nose SARS-CoV-2, Influenza & RSV (PCR) - Final Physical Exam Const alert Constitutional Narrative: morbidly obese Orientation / Consciousness: lethargic HEENT normocephalic, head/scalp atraumatic and moist oral mucous membranes Eyes PERRL and EOMs intact bilaterally Neck no lymphadenopathy, supple and no JVD Lymph Lymphatic: no lymphadenopathy noted and no lymphedema noted Resp Resp Narrative: moderately diminished breath sounds bilaterally, no wheezes or crackles. On 4 L of oxygen by nasal canula Cardio regular rate, regular rhythm, S1 normal heart sound, S2 normal heart sound and no murmurs GI normal to inspection, nondistended, normoactive bowel sounds, soft to palpation, non-tender and non-distended GI Narrative: obese abdomen Extremity Extremity Narrative: minimal bilateral lower extremity edema General Extremity: no tenderness to palpation of joints or extremities Skin Skin Narrative: has ecchymosis over right half of chin General Skin Exam: no breakdown Neuro CN's II-XII intact bilaterally, no focal motor deficits, no sensory deficits noted and deep tendon reflexes 2+ bilaterally Motor Exam: general weakness Psych thought process normal, cooperative and affect normal Mood & Affect: flat affect Assessment & Plan Assessment/Plan (1) Thrombocytopenia: (2) Dyspnea: (3) Hypoxemia: (4) CHF (congestive heart failure): (5) Respiratory failure with hypoxia and hypercapnia: PLAN: Plan #Acute on chronic hypoxic respiratory failure due to acute exacerbation of heart failure and fluid overload Patient now on 4L of oxygen. Has a history of CKD which has been worsening and per nephrology she likely needs to start dialysis. On IV Lasix 40 mg twice daily. nephrology consulted for initiation of hemodialysis. breathing treatment with bronchodilators titrate oxygen to maintain sats >90% Had dialysis catheter inserted yesterday and she was initiated on dialysis. #ESRD dialysis catheter inserted and patient now on dialysis. Patient has worsening CKD.Cr down to 2.86. nephrology on board. Likely needs initiation of dialysis Dialysis catheter inserted today for initiation of dialysis as per nephrology. #Thrombocytopenia platelets are up to 42 today; was 24 yesterday. Hematology was consulted during previous admission and it was thought that the thrombocytopenia was due to the Zyvox and her acute illness. Hematology on board and thinks this is likely due to her meds she was on. Conservative management now. Will monitor. # Acute on chronic anemia: Hb up to 8.2 today after she was transfused with 2 units of PRBCs. On IV pantoprazole. Gastroenterology consulted. #Type 2 diabetes mellitus:on lantus 13 units qhs. ISS. Accuchecks ACHS. #Hypothyroidism: On Synthroid. This is well-controlled as TSH has been elevated. Continue Synthroid. #Super morbid obesity: BMI is 51.5. Complicates acute care, expected recovery and prognosis DVT prophylaxis: SCDs CODE STATUS: full code Charges/Coding Visit Charges Inpatient E&M: 96742 Subs Hosp L2
[2023-09-19] MEDS: Pantoprazole Sodium 40 MG in 0.9% Normal Saline (100mL MB+) 100 ML 330 MG IV ×2 (13:54→21:23)
[2023-09-19] MEDS: Dextrose 5%-Water (1000mL Bag) 1,000 ML 60 ML IV (14:13)
--- NOTE | 2023-09-19 14:21 | NURSING ---
Daughter Nayla updated on poc and results of egd
--- NOTE | 2023-09-19 14:27 | CASEMGMT ---
Addendum entered by Bertha Pyle 09/19/23 15:35: [facility] states that they should be able to provide pt transportation as long as it is between 0800 and 1600. TC to the pt daughter at this time. Pt daughter states no preference on the days or times for the pt. Denies dialysis history. Referral submitted to [facility] the [facility] at this time through the online [facility]. This RN CM included: Demographics sheet, H&P, Nephrology note, recent hospitalist note, Hep B screening, current med list, vaccination history, allergy list, HD orders, and a report sheet of the recent HD the pt received here. Awaiting response from [facility]. SW updated that the referral has been sent. Original Note: Pt returns to room and RN CM to pt room at this time. Pt appears confused at this time and cannot answer this RN CM questions appropriately. The pt RN is at bedside at this time and is talking to the pt Daughter Nayla on the phone. This RN CM was able to talk to the pt daughter at this time regarding dialysis facility preference. Pt daughter refuses a verbal list of in-network facilities states that she has no preference and is OK with [facility].
[2023-09-19 14:28] LABS: Pathologist Review Reviewed
[2023-09-19 14:34] LABS: Pathologist Review Reviewed
--- NOTE | 2023-09-19 16:54 | PN.RENAL_ITS ---
Subjective Subjective no new events Objective Data Objective Data Vital Signs: Vital Signs Temp Pulse Resp BP Pulse Ox O2 Del Method O2 Flow Rate 97.5 F L 69 20 H 136/66 H 92 Bi-pap 4 09/19/23 13:44 09/19/23 14:22 09/19/23 14:22 09/19/23 13:44 09/19/23 14:22 09/19/23 14:09 09/19/23 12:42 FiO2 50 09/19/23 14:22 Oxygen Flow Rate (L/min) 4 Oxygen Delivery Method Bi-pap Weight: 137.2 kg Body Mass Index (BMI) 50.3 Intake & Output: Intake and Output for Last 24 Hours 09/17/23 09/18/23 09/19/23 23:59 23:59 23:59 Intake Total 0 / 0 2286 / 2286 1090 / 1090 Output Total 500 / 500 3530 / 3530 2575 / 2575 Balance -500 / -500 -1244 / -1244 -1485 / -1485 Lab / Micro Data 09/19/23 06:45 09/19/23 06:45 Labs: Laboratory Results - last 24 hr 09/17/23 06:42: Diff Path Review Reviewed 09/17/23 10:06: Heparin-induced Plt Ab 0.069 09/18/23 06:45: Diff Path Review Reviewed 09/18/23 22:11: POC Glucose 114 H 09/19/23 03:04: POC Glucose 118 H 09/19/23 06:26: POC Glucose 111 H 09/19/23 06:45: WBC 7.6, RBC 2.95 L, Hgb 8.2 L, Hct 26.1 L, MCV 88.5, MCH 27.8, MCHC 31.4 L, RDW Std Deviation 51.2 H, RDW Coeff of Vlad 15.9 H, Plt Count 42 L*, MPV 12.4 H, Neut % (Auto) Not Reportable, Total Counted 100, Neutrophils % (Manual) 78 H, Lymphocytes % (Manual) 6 L, Monocytes % (Manual) 11 H, Eosinophils % (Manual) 5, Nucleated RBCs/100 WBC 1, Diff Path Review Reviewed, Platelet Estimate MKD DEC, RBC Morphology NORM C+C, PT 21.7 H, INR 1.9, APTT 96.1 H*, Sodium 142, Potassium 4.0, Chloride 114 H, Carbon Dioxide 26.0, Anion Gap 2 L, BUN 58 H, Creatinine 2.86 H, Estim Creat Clear Calc 27.75, Est GFR (MDRD) Af Amer 21 L, Est GFR (MDRD) Non-Af 18 L, BUN/Creatinine Ratio 20.3 H, Glucose 111 H, Hemoglobin A1c 7.6 H, Calcium 8.7, TSH 4.07 H Micro: Microbiology 09/16/23 09:20 Mucosa - Nose SARS-CoV-2, Influenza & RSV (PCR) - Final Physical Exam Narrative Drowsy, alert to name no obvious distress s1s2 no murmurs lungs rales anteriorly and posteriorly. On oxygen abdomen soft, non tender edema b/l legs beach + Assessment & Plan Assessment/Plan (1) GASTON (acute kidney injury): PLAN: Baseline creatinine was around 2.0, sustained GASTON during last 2 previous admissions. Serologic workup negative. Obstructive workup negative. Massive proteinuria of 10 g. Presumably this is diabetes related. Currently has volume overload. - hypervolemic GASTON superimposed on CKD: SCr over past few weeks 3.6-4 with mild uremia and fluid overload. HD today - Thrombocytopenia. Previous workup showed normal LDH and haptoglobin, unlikely HUS or any form of TMA. Hematology has been consulted and opinion is multi- factoral related to Zyvox, sepsis, low probability of HIT, most likely drug induced. Zyvox was discontinued last admission. Heparin induced Plt ab pending. - eventually will need tunneled catheter by next week if the platelet counts are better - Outpatient hemodialysis arrangements underway, diagnosis GASTON
[2023-09-19] MEDS: Sucralfate 1 GM Tablet PO (17:29)
[2023-09-19] MEDS: Gabapentin 100 MG Capsule 200 MG PO (17:32)
[2023-09-19 18:15] LABS: Bedside Glucose 122 mg/dL (74-106)
--- NOTE | 2023-09-19 20:19 | RAD_ITS ---
INDICATION: increase oxygen needs EXAMINATION/TECHNIQUE: X-RAY - XR Chest 1 View COMPARISON: 09/18/2023. FINDINGS: Slight worsening in aeration of the lungs. The cardiomediastinal silhouette is stable. Unchanged right IJ central venous catheter. No pleural effusion or pneumothorax. The osseous structures are unchanged. RAD/Chest 1 View (Portable) IMPRESSION: Slight worsening in aeration of the lungs. Otherwise, no change from prior study. Electronically Signed: Claus Dent MD at 21:23 EST ,
[2023-09-19 20:29] LABS: Absolute Lymphocyte Count 0.46 X10^3/uL (0.83-4.51); Absolute Neutrophil Count 5.9 X10^3/uL (2.0-7.7)
[2023-09-19] MEDS: Menthol/Lanolin/Calamine/Znox 113 GM Tube 1 APPLIC TOPICAL (21:24)
[2023-09-19 21:58] LABS: Bedside Glucose 114 mg/dL (74-106)
[2023-09-19 22:13] LABS: BNP,B-Type NATRIURETIC PEPTIDE 259.4 pg/mL (0-100)
[2023-09-20] VITALS (11 sets, daily range): BP systolic 110–129; BP diastolic 49–65; PULSE 54–76; RESP 15–20; TEMP 36.4–36.7; O2SAT 94–99; BMI 50.3
[2023-09-20 01:36] LABS: Bedside Glucose 79 mg/dL (74-106)
[2023-09-20] MEDS: Dextrose 50%-Water 25 GM/50 ML DISP.SYRIN IV (01:50)
[2023-09-20] MEDS: Dextrose 5%-Water (1000mL Bag) 1,000 ML 30 ML IV (01:50)
[2023-09-20] MEDS: Miconazole Nitrate 43 GM Bottle 1 APPLIC TOPICAL ×3 (05:07→20:02)
[2023-09-20 06:48] LABS: Bedside Glucose 114 mg/dL (74-106)
[2023-09-20 07:56] LABS: Absolute Lymphocyte Count 0.69 X10^3/uL (0.83-4.51); Basophil# 0.03 X10^3/uL; Basophil% 0.5 % (0-1); Eosinophil# 0.13 X10^3/uL; Eosinophils% 2.1 % (0-5); Hematocrit 25.6 % (37-47); Hemoglobin 7.7 g/dL (12.0-15.0); Lymphocyte # 0.69 X10^3/ul (0.83-4.51); Lymphocyte % 11.3 % (19-41); Mean Corp Hgb Conc 30.1 g/dL (32-36); Mean Corpuscular Hgb 27.7 pg (27.0-32.0); Mean Corpuscular Volume 92.1 fL (81-99); Mean Platelet Vol. 12.5 fl (6.2-12.0); Monocyte# 0.88 X10^3/uL; Monocyte% 14.4 % (0-10); NRBC Flagged by Analyzer 0.8 % (0-5); Neutrophil # 3.96 X10^3/uL (2.7-7.7); Neutrophil % 65.1 % (47-70); POSITIVE COUNT YES; POSITIVE MORPHOLOGY YES; Platelet Count 50 K/mm3 (150-450); RBC Distribution Width SD 53.8 fl (35.1-43.9); Red Blood Count 2.78 M/mm3 (4.2-5.4); White Blood Count 6.1 K/mm3 (4.4-11.0)
[2023-09-20 07:59] LABS: Differential Indicated SCAN CRITERIA MET
--- NOTE | 2023-09-20 08:02 | CASEMGMT ---
Pt has been accepted at [facility] in [place] and first treatment is 09/24/23 at 1:30pm. Pt is tentatively scheduled for a M/W/ rotation at 1:30pm.
--- NOTE | 2023-09-20 08:17 | PCM.PN.SRG ---
Subjective Subjective There did not seem to be any issues overnight. Objective Data Objective Data Vital Signs: Vital Signs Temp Pulse Resp BP Pulse Ox O2 Del Method O2 Flow Rate 97.6 F L 69 17 125/61 H 94 Nasal Cannula 5 09/20/23 08:09 09/20/23 08:09 09/20/23 08:09 09/20/23 08:09 09/20/23 08:09 09/20/23 08:09 09/20/23 08:09 FiO2 40 09/20/23 05:04 Oxygen Flow Rate (L/min) 5 Oxygen Delivery Method Nasal Cannula Weight: 301 lb 13.005 oz Body Mass Index (BMI) 50.3 Intake & Output: Intake and Output for Last 24 Hours 09/18/23 09/19/23 09/20/23 23:59 23:59 23:59 Intake Total 2286 / 2286 2700.00 / 2700.00 Output Total 3530 / 3530 3575 / 3575 200 / 200 Balance -1244 / -1244 -875.00 / -875.00 -200 / -200 Lab / Micro Data 09/20/23 07:35 09/19/23 06:45 Labs: Laboratory Results - last 24 hr 09/17/23 06:42: Diff Path Review Reviewed 09/18/23 06:45: Diff Path Review Reviewed 09/19/23 06:45: Absolute Neuts (auto) 5.9, Absolute Lymphs (auto) 0.46 L, Total Counted 100, Neutrophils % (Manual) 78 H, Lymphocytes % (Manual) 6 L, Monocytes % (Manual) 11 H, Eosinophils % (Manual) 5, Nucleated RBCs/100 WBC 1, Diff Path Review Reviewed, Platelet Estimate MKD DEC, RBC Morphology NORM C+C, Hemoglobin A1c 7.6 H 09/19/23 17:34: POC Glucose 122 H 09/19/23 21:29: POC Glucose 114 H 09/19/23 21:45: B-Natriuretic Peptide 259.4 H 09/20/23 01:17: POC Glucose 79 09/20/23 05:01: POC Glucose 114 H 09/20/23 07:35: WBC 6.1, RBC 2.78 L, Hgb 7.7 L, Hct 25.6 L, MCV 92.1, MCH 27.7, MCHC 30.1 L, RDW Std Deviation 53.8 H, RDW Coeff of Vlad 16.0 H, Plt Count 50 L*, MPV 12.5 H, Immature Gran % (Auto) 6.600 H, Neut % (Auto) 65.1, Lymph % (Auto) 11.3 L, [place] % (Auto) 14.4 H, Eos % (Auto) 2.1, Baso % (Auto) 0.5, Absolute Neuts (auto) 4.0, Absolute Lymphs (auto) 0.69 L, Nucleated RBC % 0.8 Micro: Microbiology 09/16/23 09:20 Mucosa - Nose SARS-CoV-2, Influenza & RSV (PCR) - Final Radiography Diagnostic Testing: Radiology Impression Chest X-Ray 09/19/23 20:19 IMPRESSION: Slight worsening in aeration of the lungs. Otherwise, no change from prior study. Electronically Signed: Claus Dent MD at 21:23 EST , Physical Exam Const no apparent distress Resp normal respiratory effort GI normal to inspection, nondistended, normoactive bowel sounds Assessment & Plan Assessment/Plan (1) ESRF (end stage renal failure): PLAN: Patient continues to be anemic. She has her temporary line in place and this will be tunneled next week. Brian Burton MD Pager: [facility] [address] [place] [address], [address] [place] [address] Office:
[2023-09-20 08:23] LABS: Anion Gap 1 (5-15); BUN 46 mg/dL (7-18); BUN/Creat Ratio 19.2 RATIO (10-20); Calcium,Total 8.7 mg/dL (8.5-10.1); Chloride 113 mmol/L (98-107); Creatinine, Serum 2.39 mg/dL (0.55-1.02); Differential Comment SCANNED; EST Glomerular Filtration Rate 22 mL/min (>60); Est Glom Filt Rate - Afr Amer 26 mL/min (>60); Estimated Creatinine Clearance 32.96 ml/min; Glucose 109 mg/dL (74-106); Potassium 3.6 mmol/L (3.5-5.1); Sodium Level 142 mmol/L (136-145)
--- NOTE | 2023-09-20 09:19 | PN_ITS ---
Subjective Subjective Patient seen and examined. She was lying comfortably in bed. She was was taken off and she was placed on nasal cannula 5 L during my review. She looks significantly less edematous. She had no active complaints. Review of systems is otherwise negative. Objective Data Objective Data Vital Signs: Vital Signs Temp Pulse Resp BP Pulse Ox O2 Del Method O2 Flow Rate 97.6 F L 69 17 125/61 H 94 Nasal Cannula 5 09/20/23 08:09 09/20/23 08:09 09/20/23 08:09 09/20/23 08:09 09/20/23 08:09 09/20/23 08:09 09/20/23 08:09 FiO2 40 09/20/23 07:09 Oxygen Flow Rate (L/min) 5 Oxygen Delivery Method Nasal Cannula Weight: 301 lb 13.005 oz Body Mass Index (BMI) 50.3 Intake & Output: Intake and Output for Last 24 Hours 09/18/23 09/19/23 09/20/23 23:59 23:59 23:59 Intake Total 2286 / 2286 2700.00 / 2700.00 Output Total 3530 / 3530 3575 / 3575 200 / 200 Balance -1244 / -1244 -875.00 / -875.00 -200 / -200 Lab / Micro Data 09/20/23 07:35 09/20/23 07:35 Labs: Laboratory Results - last 24 hr 09/17/23 06:42: Diff Path Review Reviewed 09/18/23 06:45: Diff Path Review Reviewed 09/19/23 06:45: Absolute Neuts (auto) 5.9, Absolute Lymphs (auto) 0.46 L, Diff Path Review Reviewed 09/19/23 17:34: POC Glucose 122 H 09/19/23 21:29: POC Glucose 114 H 09/19/23 21:45: B-Natriuretic Peptide 259.4 H 09/20/23 01:17: POC Glucose 79 09/20/23 05:01: POC Glucose 114 H 09/20/23 07:35: WBC 6.1, RBC 2.78 L, Hgb 7.7 L, Hct 25.6 L, MCV 92.1, MCH 27.7, MCHC 30.1 L, RDW Std Deviation 53.8 H, RDW Coeff of Vlad 16.0 H, Plt Count 50 L*, MPV 12.5 H, Immature Gran % (Auto) 6.600 H, Neut % (Auto) 65.1, Lymph % (Auto) 11.3 L, [place] % (Auto) 14.4 H, Eos % (Auto) 2.1, Baso % (Auto) 0.5, Absolute Neuts (auto) 4.0, Absolute Lymphs (auto) 0.69 L, Nucleated RBC % 0.8, Differential Comment SCANNED, Diff Path Review November, Sodium 142, Potassium 3.6, Chloride 113 H, Carbon Dioxide 28.0, Anion Gap 1 L, BUN 46 H, Creatinine 2.39 H, Estim Creat Clear Calc 32.96, Est GFR (MDRD) Af Amer 26 L, Est GFR (MDRD) Non-Af 22 L, BUN/Creatinine Ratio 19.2, Glucose 109 H, Calcium 8.7 Micro: Microbiology 09/16/23 09:20 Mucosa - Nose SARS-CoV-2, Influenza & RSV (PCR) - Final Radiography Diagnostic Testing: Radiology Impression Chest X-Ray 09/19/23 20:19 IMPRESSION: Slight worsening in aeration of the lungs. Otherwise, no change from prior study. Electronically Signed: Claus Dent MD at 21:23 EST , Physical Exam Const alert Constitutional Narrative: morbidly obese Orientation / Consciousness: lethargic HEENT normocephalic, head/scalp atraumatic and moist oral mucous membranes Eyes PERRL and EOMs intact bilaterally Neck no lymphadenopathy, supple and no JVD Lymph Lymphatic: no lymphadenopathy noted and no lymphedema noted Resp Resp Narrative: moderately diminished breath sounds bilaterally, no wheezes or crackles. On 5 L of oxygen by nasal canula Cardio regular rate, regular rhythm, S1 normal heart sound, S2 normal heart sound and no murmurs GI normal to inspection, nondistended, normoactive bowel sounds, soft to palpation, non-tender and non-distended GI Narrative: obese abdomen Extremity Extremity Narrative: minimal bilateral lower extremity edema General Extremity: no tenderness to palpation of joints or extremities Skin Skin Narrative: has ecchymosis over right half of chin General Skin Exam: no breakdown Neuro CN's II-XII intact bilaterally, no focal motor deficits, no sensory deficits noted and deep tendon reflexes 2+ bilaterally Motor Exam: general weakness Psych thought process normal, cooperative and affect normal Mood & Affect: flat affect Assessment & Plan Assessment/Plan (1) Thrombocytopenia: (2) Dyspnea: (3) Hypoxemia: (4) CHF (congestive heart failure): (5) Respiratory failure with hypoxia and hypercapnia: PLAN: Plan #Acute on chronic hypoxic respiratory failure due to acute exacerbation of heart failure and fluid overload * Patient on 5 L of oxygen. * Has a history of CKD which has been worsening and per nephrology she likely needs to start dialysis. * On IV Lasix 40 mg twice daily. * breathing treatment with bronchodilators * titrate oxygen to maintain sats >90% * dialysis catheter in place,and patient now on hemodiialysis. * * #ESRD * dialysis catheter inserted and patient now on dialysis. * Patient has worsening CKD.Cr down to 2.39 today. * nephrology on board. * #Thrombocytopenia * improving. Platelets are up to 50 today, from 42 yesterday. Was down to 24 at time of admission. * Hematology on board and thinks this is likely due to her meds she was on. Conservative management now. Will monitor. # Acute on chronic anemia: * Hb today is 7.7 On IV pantoprazole. * She had EGD on 09/19/2023 which showed benign-appearing esophageal stenosis which was dilated as well as acute gastritis and erosive gastropathy with active bleeding which was treated with heater probe. #Type 2 diabetes mellitus:on lantus 13 units qhs. ISS. Accu-checks ACHS. A1C is 7.6. #Hypothyroidism: On Synthroid. TSH is 4.07. #Super morbid obesity: BMI is 51.5. Complicates acute care, expected recovery and prognosis DVT prophylaxis: SCDs CODE STATUS: full code * Charges/Coding Visit Charges Inpatient E&M: 54196 Subs Hosp L2
[2023-09-20] MEDS: Furosemide 40 MG/4 ML Vial IV ×2 (09:54→18:25)
[2023-09-20] MEDS: 0.9% Saline Lock 10 ML Syringe IV ×2 (09:55→18:27)
[2023-09-20] MEDS: Menthol/Lanolin/Calamine/Znox 113 GM Tube 1 APPLIC TOPICAL ×2 (10:02→20:01)
[2023-09-20] MEDS: Pantoprazole Sodium 40 MG in 0.9% Normal Saline (100mL MB+) 100 ML 330 MG IV ×2 (10:06→20:06)
[2023-09-20] MEDS: Fenofibrate 48 MG Tablet PO (10:11)
[2023-09-20] MEDS: Gabapentin 100 MG Capsule 200 MG PO ×2 (10:11→15:36)
[2023-09-20] MEDS: Omega-3 Acid Ethyl Esters 1 GM Capsule PO (10:11)
[2023-09-20] MEDS: Escitalopram Oxalate 10 MG Tablet PO (10:11)
[2023-09-20 11:52] LABS: Bedside Glucose 108 mg/dL (74-106)
[2023-09-20] MEDS: Sucralfate 1 GM Tablet PO (15:36)
[2023-09-20 15:38] LABS: Bedside Glucose 111 mg/dL (74-106)
[2023-09-20 17:03] LABS: Bedside Glucose 118 mg/dL (74-106)
[2023-09-20] MEDS: Pramipexole Di-HCl 0.5 MG Tablet 1.5 MG PO (20:01)
[2023-09-20] MEDS: Atorvastatin Calcium 10 MG Tablet PO (20:01)
[2023-09-20] MEDS: Gabapentin 400 MG Capsule PO (20:07)
[2023-09-21] VITALS (9 sets, daily range): BP systolic 102–153; BP diastolic 56–73; PULSE 62–81; RESP 15–19; TEMP 36.4–36.8; O2SAT 94–97; BMI 50.0
[2023-09-21] MEDS: Dextrose 5%-Water (1000mL Bag) 1,000 ML 30 ML IV (04:22)
--- NOTE | 2023-09-21 04:45 | NURSING ---
This RN was notified that patient's personal dexcom was saying that her blood sugar was low at 64. I checked patient's blood sugar with our glucometer. Blood sugar reads 88. Patient is receiving D5W at 30 mL/hr continuous.
[2023-09-21 05:00] LABS: Bedside Glucose 88 mg/dL (74-106)
[2023-09-21] MEDS: Miconazole Nitrate 43 GM Bottle 1 APPLIC TOPICAL ×3 (06:22→20:53)
[2023-09-21 07:45] LABS: Hematocrit 26.9 % (37-47); Hemoglobin 8.2 g/dL (12.0-15.0); Mean Corp Hgb Conc 30.5 g/dL (32-36); Mean Corpuscular Hgb 27.8 pg (27.0-32.0); Mean Corpuscular Volume 91.2 fL (81-99); POSITIVE COUNT YES; POSITIVE MORPHOLOGY YES; Platelet Count 63 K/mm3 (150-450); RBC Distribution Width CV 16.1 % (11.6-14.6); RBC Distribution Width SD 53.5 fl (35.1-43.9); Red Blood Count 2.95 M/mm3 (4.2-5.4); White Blood Count 6.3 K/mm3 (4.4-11.0)
[2023-09-21 07:46] LABS: Differential Indicated MANUAL DIFF
[2023-09-21 07:58] LABS: Anion Gap 2 (5-15); BUN 48 mg/dL (7-18); BUN/Creat Ratio 19.6 RATIO (10-20); Calcium,Total 8.9 mg/dL (8.5-10.1); Chloride 113 mmol/L (98-107); Creatinine, Serum 2.45 mg/dL (0.55-1.02); EST Glomerular Filtration Rate 21 mL/min (>60); Est Glom Filt Rate - Afr Amer 25 mL/min (>60); Estimated Creatinine Clearance 32.05 ml/min; Glucose 94 mg/dL (74-106); Potassium 3.5 mmol/L (3.5-5.1); Sodium Level 144 mmol/L (136-145)
--- NOTE | 2023-09-21 08:55 | PN.SURG_ITS ---
Subjective Subjective Patient does not have any complaints Objective Data Objective Data Vital Signs: Vital Signs Temp Pulse Resp BP Pulse Ox O2 Del Method O2 Flow Rate 97.5 F L 71 18 120/57 L 95 Bi-pap 4 09/21/23 05:00 09/21/23 05:00 09/21/23 05:00 09/21/23 05:00 09/21/23 05:00 09/21/23 05:00 09/20/23 21:00 FiO2 40 09/21/23 03:00 Oxygen Flow Rate (L/min) 4 Oxygen Delivery Method Bi-pap Weight: 300 lb 4.313 oz Body Mass Index (BMI) 50.0 Intake & Output: Intake and Output for Last 24 Hours 09/19/23 09/20/23 09/21/23 23:59 23:59 23:59 Intake Total 2700.00 / 2700.00 220 / 220 796 / 796 Output Total 3575 / 3575 1200 / 1475 1275 / 1275 Balance -875.00 / -875.00 -980 / -1255 -479 / -479 Lab / Micro Data 09/21/23 07:05 09/21/23 07:05 Labs: Laboratory Results - last 24 hr 09/20/23 11:35: POC Glucose 108 H 09/20/23 15:18: POC Glucose 111 H 09/20/23 16:46: POC Glucose 118 H 09/21/23 04:41: POC Glucose 88 09/21/23 07:05: WBC 6.3, RBC 2.95 L, Hgb 8.2 L, Hct 26.9 L, MCV 91.2, MCH 27.8, MCHC 30.5 L, RDW Std Deviation 53.5 H, RDW Coeff of Vlad 16.1 H, Plt Count 63 L, MPV 12.0, Neut % (Auto) Not Reportable, Sodium 144, Potassium 3.5, Chloride 113 H, Carbon Dioxide 29.0, Anion Gap 2 L, BUN 48 H, Creatinine 2.45 H, Estim Creat Clear Calc 32.05, Est GFR (MDRD) Af Amer 25 L, Est GFR (MDRD) Non-Af 21 L, BUN/Creatinine Ratio 19.6, Glucose 94, Calcium 8.9 Micro: Microbiology 09/16/23 09:20 Mucosa - Nose SARS-CoV-2, Influenza & RSV (PCR) - Final Physical Exam Const no apparent distress Resp normal respiratory effort Cardio regular rate and regular rhythm GI normal to inspection, nondistended, normoactive bowel sounds Assessment & Plan Assessment/Plan (1) ESRF (end stage renal failure): PLAN: White count is still normal. Platelets are up to [address] Ruiz plans on transitioning this to a tunneled catheter at some point this week. Brian Burton MD Pager: [facility] [address] [place] [address], [address] [place] [address] Office:
[2023-09-21] MEDS: Menthol/Lanolin/Calamine/Znox 113 GM Tube 1 APPLIC TOPICAL ×2 (09:07→20:53)
[2023-09-21] MEDS: Furosemide 40 MG/4 ML Vial IV (09:07)
[2023-09-21] MEDS: Omega-3 Acid Ethyl Esters 1 GM Capsule PO ×2 (09:08→20:54)
[2023-09-21] MEDS: Escitalopram Oxalate 10 MG Tablet PO (09:08)
[2023-09-21] MEDS: Gabapentin 100 MG Capsule 200 MG PO ×2 (09:08→15:11)
[2023-09-21] MEDS: Pantoprazole Sodium 40 MG in 0.9% Normal Saline (100mL MB+) 100 ML 330 MG IV (09:08)
[2023-09-21] MEDS: Fenofibrate 48 MG Tablet PO (09:08)
--- NOTE | 2023-09-21 09:30 | PN_ITS ---
Subjective Subjective Patient seen and examined. She had no complaints today. She is on 4 L of oxygen. She denies coughing or chest pain, palpitations, dizziness, nausea or vomiting. Review of symptoms otherwise negative. Objective Data Objective Data Vital Signs: Vital Signs Temp Pulse Resp BP Pulse Ox O2 Del Method O2 Flow Rate 97.6 F L 76 15 136/60 H 97 Nasal Cannula 4 09/21/23 08:58 09/21/23 08:58 09/21/23 08:58 09/21/23 08:58 09/21/23 08:58 09/21/23 08:58 09/21/23 08:58 FiO2 40 09/21/23 03:00 Oxygen Flow Rate (L/min) 4 Oxygen Delivery Method Nasal Cannula Weight: 300 lb 4.313 oz Body Mass Index (BMI) 50.0 Intake & Output: Intake and Output for Last 24 Hours 09/19/23 09/20/23 09/21/23 23:59 23:59 23:59 Intake Total 2700.00 / 2700.00 220 / 220 796 / 796 Output Total 3575 / 3575 1200 / 1475 1275 / 1275 Balance -875.00 / -875.00 -980 / -1255 -479 / -479 Lab / Micro Data 09/21/23 07:05 09/21/23 07:05 Labs: Laboratory Results - last 24 hr 09/20/23 11:35: POC Glucose 108 H 09/20/23 15:18: POC Glucose 111 H 09/20/23 16:46: POC Glucose 118 H 09/21/23 04:41: POC Glucose 88 09/21/23 07:05: WBC 6.3, RBC 2.95 L, Hgb 8.2 L, Hct 26.9 L, MCV 91.2, MCH 27.8, MCHC 30.5 L, RDW Std Deviation 53.5 H, RDW Coeff of Vlad 16.1 H, Plt Count 63 L, MPV 12.0, Neut % (Auto) Not Reportable, Sodium 144, Potassium 3.5, Chloride 113 H, Carbon Dioxide 29.0, Anion Gap 2 L, BUN 48 H, Creatinine 2.45 H, Estim Creat Clear Calc 32.05, Est GFR (MDRD) Af Amer 25 L, Est GFR (MDRD) Non-Af 21 L, BUN/Creatinine Ratio 19.6, Glucose 94, Calcium 8.9 Micro: Microbiology 09/16/23 09:20 Mucosa - Nose SARS-CoV-2, Influenza & RSV (PCR) - Final Physical Exam Const alert and oriented x3 Constitutional Narrative: morbidly obese General Appearance: cooperative HEENT normocephalic, head/scalp atraumatic and moist oral mucous membranes Eyes PERRL and EOMs intact bilaterally Neck no lymphadenopathy, supple and no JVD Lymph Lymphatic: no lymphadenopathy noted and no lymphedema noted Resp Resp Narrative: moderately diminished breath sounds bilaterally, no wheezes or crackles. On 5 L of oxygen by nasal canula Cardio regular rate, regular rhythm, S1 normal heart sound, S2 normal heart sound and no murmurs GI normal to inspection, nondistended, normoactive bowel sounds, soft to palpation, non-tender and non-distended GI Narrative: obese abdomen Extremity Extremity Narrative: minimal bilateral lower extremity edema, temporary dialysis catheter in situ General Extremity: no tenderness to palpation of joints or extremities Skin Skin Narrative: has ecchymosis over right half of chin General Skin Exam: no breakdown Neuro CN's II-XII intact bilaterally, no focal motor deficits, no sensory deficits noted and deep tendon reflexes 2+ bilaterally Motor Exam: general weakness Psych thought process normal, cooperative and affect normal Appearance: appropriate Assessment & Plan Assessment/Plan (1) Thrombocytopenia: (2) Dyspnea: (3) Hypoxemia: (4) CHF (congestive heart failure): (5) Respiratory failure with hypoxia and hypercapnia: PLAN: Plan #Acute on chronic hypoxic respiratory failure due to acute exacerbation of heart failure and fluid overload * Patient on 4 L of oxygen. * Has a history of CKD which has been worsening and per nephrology she likely needs to start dialysis. * On IV Lasix 40 mg twice daily. * breathing treatment with bronchodilators * titrate oxygen to maintain sats >90% * dialysis catheter in place,and patient now on hemodiialysis. * #ESRD * dialysis catheter inserted and patient now on dialysis. * nephrology on board. * to have tunneled dialysis catheter inserted during this week * #Thrombocytopenia * Platelets continue to improve. Up to 63 from 50 yesterday. Was down to 24 at time of admission. * Hematology on board and thinks this is likely due to her meds she was on. Conservative management now. Will monitor. # Acute on chronic anemia: * Hb today is 8.2 On IV pantoprazole. * She had EGD on 09/19/2023 which showed benign-appearing esophageal stenosis which was dilated as well as acute gastritis and erosive gastropathy with active bleeding which was treated with heater probe. * Will switch to p.o. pantoprazole. #Type 2 diabetes mellitus:on lantus 13 units qhs. ISS. Accu-checks ACHS. A1C is 7.6. #Hypothyroidism: On Synthroid. TSH is 4.07. #Super morbid obesity: BMI is 51.5. Complicates acute care, expected recovery and prognosis DVT prophylaxis: SCDs CODE STATUS: full code * Charges/Coding Visit Charges Inpatient E&M: 43535 Subs Hosp L2
[2023-09-21 09:37] LABS: Eosinophil 1 % (0-5); Lymphocyte 14 % (19-41); Metamyelocyte 1 % (0-1); Monocyte 5 % (0-10); Myelocyte 4 % (0-0); Neutrophil-Band 5 % (0-5); Neutrophil-Segmented 70 % (47-70); Platelet Estimate MKD DEC (ADEQ); Red Cell Morphology NORM C+C NORMAL (NORM C&C); Total Cells Counted 100 (MANUAL DIFF)
[2023-09-21 09:38] LABS: Absolute Lymphocyte Count 0.88 X10^3/uL (0.83-4.51); Absolute Neutrophil Count 4.7 X10^3/uL (2.0-7.7)
[2023-09-21] MEDS: Sucralfate 1 GM Tablet PO (15:12)
--- NOTE | 2023-09-21 16:14 | PN.RENAL_ITS ---
Subjective Subjective Alert, awake. Denies any new complaints. Objective Data Objective Data Vital Signs: Vital Signs Temp Pulse Resp BP Pulse Ox O2 Del Method O2 Flow Rate 98 F 72 15 102/56 L 95 Nasal Cannula 3 09/21/23 15:00 09/21/23 15:00 09/21/23 15:00 09/21/23 15:00 09/21/23 15:00 09/21/23 15:00 09/21/23 15:00 FiO2 40 09/21/23 03:00 Oxygen Flow Rate (L/min) 3 Oxygen Delivery Method Nasal Cannula Weight: 136.2 kg Body Mass Index (BMI) 50.0 Intake & Output: Intake and Output for Last 24 Hours 09/19/23 09/20/23 09/21/23 23:59 23:59 23:59 Intake Total 2700.00 / 2700.00 220 / 220 906 / 906 Output Total 3575 / 3575 1200 / 1475 3525 / 3525 Balance -875.00 / -875.00 -980 / -1255 -2619 / -2619 Lab / Micro Data 09/21/23 07:05 09/21/23 07:05 Labs: Laboratory Results - last 24 hr 09/20/23 16:46: POC Glucose 118 H 09/21/23 04:41: POC Glucose 88 09/21/23 07:05: WBC 6.3, RBC 2.95 L, Hgb 8.2 L, Hct 26.9 L, MCV 91.2, MCH 27.8, MCHC 30.5 L, RDW Std Deviation 53.5 H, RDW Coeff of Vlad 16.1 H, Plt Count 63 L, MPV 12.0, Neut % (Auto) Not Reportable, Absolute Neuts (auto) 4.7, Absolute Lymphs (auto) 0.88, Total Counted 100, Neutrophils % (Manual) 70, Band Neutrophils % 5, Lymphocytes % (Manual) 14 L, Monocytes % (Manual) 5, Eosinophils % (Manual) 1, Metamyelocytes % 1, Myelocytes % 4 H, Diff Path Review May , Platelet Estimate MKD DEC, RBC Morphology NORM C+C, Sodium 144, Potassium 3.5, Chloride 113 H, Carbon Dioxide 29.0, Anion Gap 2 L, BUN 48 H, Creatinine 2.45 H, Estim Creat Clear Calc 32.05, Est GFR (MDRD) Af Amer 25 L, Est GFR (MDRD) Non-Af 21 L, BUN/Creatinine Ratio 19.6, Glucose 94, Calcium 8.9 Micro: Microbiology 09/16/23 09:20 Blood Culture (Wb) - Left Hand Blood Culture - Final No growth in 5 days. 09/16/23 09:20 Blood Culture (Wb) #2 - Anticubital Right Blood Culture - Final No growth in 5 days. 09/16/23 09:20 Mucosa - Nose SARS-CoV-2, Influenza & RSV (PCR) - Final Physical Exam Narrative no obvious distress s1s2 no murmurs lungs rales anteriorly and posteriorly. On oxygen abdomen soft, non tender edema b/l legs Assessment & Plan Assessment/Plan (1) GASTON (acute kidney injury): PLAN: Baseline creatinine was around 2.0, sustained GASTON during last 2 previous admissions. Serologic workup negative. Obstructive workup negative. Massive proteinuria of 10 g. Presumably this is diabetes related. Currently has volume overload. - hypervolemic GASTON superimposed on CKD: SCr over past few weeks 3.6-4 with mild uremia and fluid overload. Started dialysis, finished 3 treatments. Symptomatically better. - Thrombocytopenia. Previous workup showed normal LDH and haptoglobin, unlikely HUS or any form of TMA. Hematology has been consulted and opinion is multi- factoral related to Zyvox, sepsis, low probability of HIT, most likely drug induced. Zyvox was discontinued last admission. Platelets are better - eventually will need tunneled catheter once the platelet counts are better - Outpatient hemodialysis arrangements underway, diagnosis GASTON
--- NOTE | 2023-09-21 18:14 | PN.GI_ITS ---
Subjective Subjective Patient denies any complaints. She denies any chest pain or shortness of breath. She denies any nausea and is tolerating a diet on 4 L of oxygen. Objective Data Objective Data Vital Signs: Vital Signs Temp Pulse Resp BP Pulse Ox O2 Del Method O2 Flow Rate 98 F 72 15 102/56 L 95 Nasal Cannula 3 09/21/23 15:00 09/21/23 15:00 09/21/23 15:00 09/21/23 15:00 09/21/23 15:00 09/21/23 15:00 09/21/23 15:00 FiO2 40 09/21/23 03:00 Oxygen Flow Rate (L/min) 3 Oxygen Delivery Method Nasal Cannula Weight: 300 lb 4.313 oz Body Mass Index (BMI) 50.0 Intake & Output: Intake and Output for Last 24 Hours 09/19/23 09/20/23 09/21/23 23:59 23:59 23:59 Intake Total 2700.00 / 2700.00 220 / 220 906 / 906 Output Total 3575 / 3575 1200 / 1475 3525 / 3525 Balance -875.00 / -875.00 -980 / -1255 -2619 / -2619 Lab / Micro Data 09/21/23 07:05 09/21/23 07:05 Labs: Laboratory Results - last 24 hr 09/21/23 04:41: POC Glucose 88 09/21/23 07:05: WBC 6.3, RBC 2.95 L, Hgb 8.2 L, Hct 26.9 L, MCV 91.2, MCH 27.8, MCHC 30.5 L, RDW Std Deviation 53.5 H, RDW Coeff of Vlad 16.1 H, Plt Count 63 L, MPV 12.0, Neut % (Auto) Not Reportable, Absolute Neuts (auto) 4.7, Absolute Lymphs (auto) 0.88, Total Counted 100, Neutrophils % (Manual) 70, Band Neutrophils % 5, Lymphocytes % (Manual) 14 L, Monocytes % (Manual) 5, Eo sinophils % (Manual) 1, Metamyelocytes % 1, Myelocytes % 4 H, Diff Path Review May , Platelet Estimate MKD DEC, RBC Morphology NORM C+C, Sodium 144, Potassium 3.5, Chloride 113 H, Carbon Dioxide 29.0, Anion Gap 2 L, BUN 48 H, Creatinine 2.45 H, Estim Creat Clear Calc 32.05, Est GFR (MDRD) Af Amer 25 L, Est GFR (MDRD) Non-Af 21 L, BUN/Creatinine Ratio 19.6, Glucose 94, Calcium 8.9 Micro: Microbiology 09/16/23 09:20 Blood Culture (Wb) - Left Hand Blood Culture - Final No growth in 5 days. 09/16/23 09:20 Blood Culture (Wb) #2 - Anticubital Right Blood Culture - Final No growth in 5 days. 09/16/23 09:20 Mucosa - Nose SARS-CoV-2, Influenza & RSV (PCR) - Final Physical Exam Const alert and oriented x3 Constitutional Narrative: morbidly obese General Appearance: cooperative HEENT normocephalic, head/scalp atraumatic and moist oral mucous membranes Eyes PERRL and EOMs intact bilaterally Neck no lymphadenopathy, supple and no JVD Lymph Lymphatic: no lymphadenopathy noted and no lymphedema noted Resp Resp Narrative: moderately diminished breath sounds bilaterally, no wheezes or crackles. On 5 L of oxygen by nasal canula Cardio regular rate, regular rhythm, S1 normal heart sound, S2 normal heart sound and no murmurs GI normal to inspection, nondistended, normoactive bowel sounds, soft to palpation, non-tender and non-distended GI Narrative: obese abdomen Extremity Extremity Narrative: minimal bilateral lower extremity edema, temporary dialysis catheter in situ General Extremity: no tenderness to palpation of joints or extremities Skin Skin Narrative: has ecchymosis over right half of chin General Skin Exam: no breakdown Neuro CN's II-XII intact bilaterally, no focal motor deficits, no sensory deficits noted and deep tendon reflexes 2+ bilaterally Motor Exam: general weakness Psych thought process normal, cooperative and affect normal Appearance: appropriate Assessment & Plan Assessment/Plan (1) Acute on chronic heart failure with preserved ejection fraction (HFpEF): (2) Acute on chronic respiratory failure with hypoxia and hypercapnia: (3) GASTON (acute kidney injury): PLAN: Plan Patient is a 63-year-old female who presented to [facility] ED on 08/26/2023 with worsening shortness of breath at rest and altered mental status. She was discovered to have significant decrease in hemoglobin. Acute on chronic anemia, recurrent upper GI bleed due to gastric ulcer Hemoglobin 9.1 on admit, down trended to hemoglobin 6.9 on hospital day 2. Jassi stewart hemoglobin appears to be around 8-9. Seems most likely due to lab draws and hemodilution on admission, but patient does have history of peptic ulcer disease with duodenitis requiring EGD in 04/2023. Patient denies any dark or bloody stools. S/p 2 units packed red blood cells transfused as of 08/30. - EGD on 08/30 that showed an oozing gastric ulcer with pigmented material that was injected and treated with heater probe as well as acute duodenitis was biopsied. Hemoglobin stable post EGD, continue to monitor CBC daily. Continue home p.o. PPI twice daily. - EGD on 09/18 displayed: One benign-appearing, intrinsic moderate (circumferential scarring or stenosis; an endoscope may pass) stenosis was found 18 to 20 cm from the incisors. This stenosis measured 4 mm (inner diameter) x 3 cm (in length). The stenosis was traversed after dilation. A guidewire was placed and the scope was withdrawn. Dilation was performed with a Savary dilator with no resistance at 42 Fr. The dilation site was examined and showed moderate mucosal disruption. Estimated blood loss was minimal. Patchy severe inflammation characterized by erosions, erythema and friability was found in the cardia. Biopsies were taken with a cold forceps for histology. Verification of patient identification for the specimen was done. Estimated blood loss was minimal. Biopsies were taken with a cold forceps for Helicobacter pylori testing. Verification of patient identification for the specimen was done. Estimated blood loss was minimal. Multiple localized 5 mm erosions with active bleeding were found in the cardia. Coagulation for hemostasis using heater probe was successful. Recommendations: Continue PPI therapy and monitor hemoglobin. She will need an outpatient colonoscopy.. Charges/Coding Visit Charges Inpatient E&M: 28067 Subs Hosp L3
[2023-09-21] MEDS: Gabapentin 400 MG Capsule PO (20:54)
[2023-09-21] MEDS: Pramipexole Di-HCl 0.5 MG Tablet 1.5 MG PO (20:54)
[2023-09-21] MEDS: Atorvastatin Calcium 10 MG Tablet PO (20:54)
[2023-09-21] MEDS: Pantoprazole Sodium 40 MG Tablet PO (20:58)
[2023-09-22] VITALS (15 sets, daily range): BP systolic 77–172; BP diastolic 52–72; PULSE 66–90; RESP 14–20; TEMP 36.1–36.6; O2SAT 93–99; BMI 49.8; BMI 49.2
[2023-09-22] MEDS: Miconazole Nitrate 43 GM Bottle 1 APPLIC TOPICAL ×3 (05:55→21:32)
[2023-09-22] MEDS: Sucralfate 1 GM Tablet PO ×2 (05:59→15:56)
[2023-09-22] MEDS: Levothyroxine 150 MCG Tablet PO (05:59)
[2023-09-22] MEDS: 0.9% Normal Saline 1,000 ML IV.SOLN. 1000 ML OPERA.SITE (07:54)
[2023-09-22] MEDS: 0.9% Saline Lock 10 ML Syringe IV ×2 (07:54→10:16)
[2023-09-22] MEDS: PureFlow B 3K Dialysis Soln 1 BAG 6 BAG PF (07:54)
[2023-09-22 10:55] LABS: Hematocrit 28.5 % (37-47); Hemoglobin 8.8 g/dL (12.0-15.0); Mean Corp Hgb Conc 30.9 g/dL (32-36); Mean Corpuscular Hgb 28.3 pg (27.0-32.0); Mean Corpuscular Volume 91.6 fL (81-99); Mean Platelet Vol. 11.9 fl (6.2-12.0); POSITIVE COUNT YES; Platelet Count 90 K/mm3 (150-450); RBC Distribution Width CV 15.7 % (11.6-14.6); RBC Distribution Width SD 51.9 fl (35.1-43.9); Red Blood Count 3.11 M/mm3 (4.2-5.4); White Blood Count 7.9 K/mm3 (4.4-11.0)
[2023-09-22 11:07] LABS: Anion Gap 1 (5-15); BUN 29 mg/dL (7-18); BUN/Creat Ratio 19.3 RATIO (10-20); Calcium,Total 9.1 mg/dL (8.5-10.1); Chloride 110 mmol/L (98-107); EST Glomerular Filtration Rate 37 mL/min (>60); Est Glom Filt Rate - Afr Amer 45 mL/min (>60); Estimated Creatinine Clearance 51.85 ml/min; Glucose 101 mg/dL (74-106); Potassium 3.1 mmol/L (3.5-5.1); Sodium Level 143 mmol/L (136-145)
[2023-09-22 11:09] LABS: Scan Indicated on CBC? Y/N YES- FLAGS NOTED
[2023-09-22] MEDS: Fenofibrate 48 MG Tablet PO (11:27)
[2023-09-22] MEDS: Escitalopram Oxalate 10 MG Tablet PO (11:27)
[2023-09-22] MEDS: Pantoprazole Sodium 40 MG Tablet PO ×2 (11:27→21:33)
[2023-09-22] MEDS: Gabapentin 100 MG Capsule 200 MG PO ×2 (11:27→15:55)
[2023-09-22] MEDS: Menthol/Lanolin/Calamine/Znox 113 GM Tube 1 APPLIC TOPICAL ×2 (11:28→21:31)
--- NOTE | 2023-09-22 12:04 | PN.SURG_ITS ---
Subjective Subjective Patient has no complaints currently. Platelets are up to 90 Objective Data Objective Data Vital Signs: Vital Signs Temp Pulse Resp BP Pulse Ox O2 Del Method O2 Flow Rate 97 F L 75 18 134/56 H 95 Nasal Cannula 2 09/22/23 11:34 09/22/23 11:34 09/22/23 11:34 09/22/23 11:34 09/22/23 11:34 09/22/23 11:34 09/22/23 11:34 FiO2 40 09/21/23 03:00 Oxygen Flow Rate (L/min) 2 Oxygen Delivery Method Nasal Cannula Weight: 295 lb 10.238 oz Body Mass Index (BMI) 49.2 Intake & Output: Intake and Output for Last 24 Hours 09/20/23 09/21/23 09/22/23 23:59 23:59 23:59 Intake Total 220 / 220 906 / 906 Output Total 1200 / 1475 4525 / 5825 3800 / 3800 Balance -980 / -1255 -3619 / -4919 -3800 / -3800 Lab / Micro Data 09/22/23 10:42 09/22/23 10:42 Labs: Laboratory Results - last 24 hr 09/22/23 10:42: WBC 7.9, RBC 3.11 L, Hgb 8.8 L, Hct 28.5 L, MCV 91.6, MCH 28.3, MCHC 30.9 L, RDW Std Deviation 51.9 H, RDW Coeff of Vlad 15.7 H, Plt Count 90 L, MPV 11.9, Sodium 143, Potassium 3.1 L, Chloride 110 H, Carbon Dioxide 32.0, Anion Gap 1 L, BUN 29 H, Creatinine 1.50 H, Estim Creat Clear Calc 51.85, Est GFR (MDRD) Af Amer 45 L, Est GFR (MDRD) Non-Af 37 L, BUN/Creatinine Ratio 19.3, Glucose 101, Calcium 9.1 Micro: Microbiology 09/16/23 09:20 Blood Culture (Wb) - Left Hand Blood Culture - Final No growth in 5 days. 09/16/23 09:20 Blood Culture (Wb) #2 - Anticubital Right Blood Culture - Final No growth in 5 days. 09/16/23 09:20 Mucosa - Nose SARS-CoV-2, Influenza & RSV (PCR) - Final Physical Exam Narrative Temporary right IJ dialysis catheter in place Const oriented x3 and no apparent distress Resp normal respiratory effort Cardio regular rate GI soft to palpation and non-tender Assessment & Plan Assessment/Plan (1) ESRF (end stage renal failure): PLAN: Will plan to transition to a tunneled dialysis catheter this week?discussed procedure with patient she had no further questions this time. Will talk with hospitalist about timing. Patient's platelets are improving currently at 90. Suzette Ruiz M.D. Pager: [phone] [facility] [address] [place] [address], [facility], [address] [place] [address] Office: [phone] Charges/Coding Visit Charges Inpatient E&M: 79583 Subs Hosp L2
[2023-09-22 13:09] LABS: Pathologist Review Reviewed
[2023-09-22 13:12] LABS: Pathologist Review Reviewed
[2023-09-22] MEDS: Dextrose 5%-Water (1000mL Bag) 1,000 ML 30 ML IV (15:56)
--- NOTE | 2023-09-22 17:02 | CASEMGMT ---
Social Work SW checked in / in regard to dialysis time, if they can transport pt. They said they will let SW know. SW sent them another message at the end of the day. SW will continue to follow. ARIAN Philippe
--- NOTE | 2023-09-22 18:25 | PN.GI_ITS ---
Subjective Subjective She is looking a lot better and her mental status seems to be clear today. Objective Data Objective Data Vital Signs: Vital Signs Temp Pulse Resp BP Pulse Ox O2 Del Method O2 Flow Rate 98 F 71 17 154/66 H 96 Nasal Cannula 2 09/22/23 15:50 09/22/23 15:50 09/22/23 15:50 09/22/23 15:50 09/22/23 15:50 09/22/23 15:50 09/22/23 15:50 FiO2 40 09/21/23 03:00 Oxygen Flow Rate (L/min) 2 Oxygen Delivery Method Nasal Cannula Weight: 295 lb 10.238 oz Body Mass Index (BMI) 49.2 Intake & Output: Intake and Output for Last 24 Hours 09/20/23 09/21/23 09/22/23 23:59 23:59 23:59 Intake Total 220 / 220 906 / 906 1000 / 1000 Output Total 1200 / 1475 4525 / 5825 4400 / 4400 Balance -980 / -1255 -3619 / -4919 -3400 / -3400 Lab / Micro Data 09/22/23 10:42 09/22/23 10:42 Labs: Laboratory Results - last 24 hr 09/20/23 07:35: Diff Path Review Reviewed 09/21/23 07:05: Diff Path Review Reviewed 09/22/23 10:42: WBC 7.9, RBC 3.11 L, Hgb 8.8 L, Hct 28.5 L, MCV 91.6, MCH 28.3, MCHC 30.9 L, RDW Std Deviation 51.9 H, RDW Coeff of Vlad 15.7 H, Plt Count 90 L, MPV 11.9, Sodium 143, Potassium 3.1 L, Chloride 110 H, Carbon Dioxide 32.0, Anion Gap 1 L, BUN 29 H, Creatinine 1.50 H, Estim Creat Clear Calc 51.85, Est GFR (MDRD) Af Amer 45 L, Est GFR (MDRD) Non-Af 37 L, BUN/Creatinine Ratio 19.3, Glucose 101, Calcium 9.1 Micro: Microbiology 09/16/23 09:20 Blood Culture (Wb) - Left Hand Blood Culture - Final No growth in 5 days. 09/16/23 09:20 Blood Culture (Wb) #2 - Anticubital Right Blood Culture - Final No growth in 5 days. 09/16/23 09:20 Mucosa - Nose SARS-CoV-2, Influenza & RSV (PCR) - Final Physical Exam Narrative Temporary right IJ dialysis catheter in place Const oriented x3 and no apparent distress Resp normal respiratory effort Cardio regular rate GI soft to palpation and non-tender Assessment & Plan Assessment/Plan (1) Acute on chronic heart failure with preserved ejection fraction (HFpEF): (2) Acute on chronic respiratory failure with hypoxia and hypercapnia: (3) GASTON (acute kidney injury): PLAN: Plan Patient is a 63-year-old female who presented to [facility] ED on 08/26/2023 with worsening shortness of breath at rest and altered mental status. She was discovered to have significant decrease in hemoglobin. Acute on chronic anemia, recurrent upper GI bleed due to gastric ulcer Hemoglobin 9.1 on admit, down trended to hemoglobin 6.9 on hospital day 2. Baseline hemoglobin appears to be around 8-9. Seems most likely due to lab draws and hemodilution on admission, but patient does have history of peptic ulcer disease with duodenitis requiring EGD in 04/2023. Patient denies any dark or bloody stools. S/p 2 units packed red blood cells transfused as of 08/30. - EGD on 08/30 that showed an oozing gastric ulcer with pigmented material that was injected and treated with heater probe as well as acute duodenitis was biopsied. Hemoglobin stable post EGD, continue to monitor CBC daily. Continue home p.o. PPI twice daily. - EGD on 09/18 displayed: One benign-appearing, intrinsic moderate (circumferential scarring or stenosis; an endoscope may pass) stenosis was found 18 to 20 cm from the incisors. This stenosis measured 4 mm (inner diameter) x 3 cm (in length). The stenosis was traversed after dilation. A guidewire was placed and the scope was withdrawn. Dilation was performed with a Savary dilator with no resistance at 42 Fr. The dilation site was examined and showed moderate mucosal disruption. Estimated blood loss was minimal. Patchy severe inflammation characterized by erosions, erythema and friability was found in the cardia. Biopsies were taken with a cold forceps for histology. Verification of patient identification for the specimen was done. Estimated blood loss was minimal. Biopsies were taken with a cold forceps for Helicobacter pylori testing. Verification of patient identification for the specimen was done. Estimated blood loss was minimal. Multiple localized 5 mm erosions with active bleeding were found in the cardia. Coagulation for hemostasis using heater probe was successful. Recommendations: Continue PPI therapy and monitor hemoglobin. She will need an outpatient colonoscopy.. 09/22/23-patient's platelet count and hemoglobin are improving nicely. Thromb ocytopenia likely secondary to drug toxicity. Patient continues to do well. Continue PPI p.o. twice daily and Carafate 1 p.o. twice daily and continue to monitor blood counts. Charges/Coding Visit Charges Inpatient E&M: 18867 [facility] Hosp L3
[2023-09-22] MEDS: Omega-3 Acid Ethyl Esters 1 GM Capsule PO (21:33)
[2023-09-22] MEDS: Pramipexole Di-HCl 0.5 MG Tablet 1.5 MG PO (21:33)
[2023-09-22] MEDS: Atorvastatin Calcium 10 MG Tablet PO (21:33)
[2023-09-22] MEDS: Gabapentin 400 MG Capsule PO (21:36)
--- NOTE | 2023-09-22 23:32 | PN.HOSP_ITS ---
Reason for Visit Reason for Visit: Diagnoses Anemia, unspecified (09/16/23) Thrombocytopenia, unspecified (09/16/23) Acute on chronic diastolic (congestive) heart failure (09/16/23) Heart failure, unspecified (09/16/23) Acute and chronic respiratory failure with hypoxia (09/16/23) Acute and chronic respiratory failure with hypercapnia (09/16/23) Respiratory failure, unspecified with hypoxia (09/16/23) Respiratory failure, unspecified with hypercapnia (09/16/23) Acute kidney failure, unspecified (09/16/23) End stage renal disease (09/16/23) Dyspnea, unspecified (09/16/23) Hypoxemia (09/16/23) Subjective Subjective No acute events overnight. Patient seen at bedside this morning. Patient was moderately lethargic appearing on exam. She was laying back comfortably in bed but appeared very fatigued and answer questions with weak, short responses. She denied any acute pain or discomfort. No other acute concerns. Objective Data Objective Data Vital Signs: Vital Signs Temp Pulse Resp BP Pulse Ox O2 Del Method O2 Flow Rate 97.6 F L 90 16 139/65 H 94 Nasal Cannula 2 09/22/23 21:27 09/22/23 21:27 09/22/23 21:27 09/22/23 21:27 09/22/23 21:27 09/22/23 22:00 09/22/23 22:00 FiO2 40 09/21/23 03:00 Oxygen Flow Rate (L/min) 2 Oxygen Delivery Method Nasal Cannula Weight: 134.1 kg Body Mass Index (BMI) 49.2 Intake & Output: Intake and Output for Last 24 Hours 09/20/23 09/21/23 09/22/23 23:59 23:59 23:59 Intake Total 220 / 220 906 / 906 1000 / 1000 Output Total 1200 / 1475 4525 / 5825 4650 / 4650 Balance -980 / -1255 -3619 / -4919 -3650 / -3650 Lab / Micro Data 09/22/23 10:42 09/22/23 10:42 Labs: Laboratory Results - last 24 hr 09/20/23 07:35: Diff Path Review Reviewed 09/21/23 07:05: Diff Path Review Reviewed 09/22/23 10:42: WBC 7.9, RBC 3.11 L, Hgb 8.8 L, Hct 28.5 L, MCV 91.6, MCH 28.3, MCHC 30.9 L, RDW Std Deviation 51.9 H, RDW Coeff of Vlad 15.7 H, Plt Count 90 L, MPV 11.9, Sodium 143, Potassium 3.1 L, Chloride 110 H, Carbon Dioxide 32.0, Anion Gap 1 L, BUN 29 H, Creatinine 1.50 H, Estim Creat Clear Calc 51.85, Est GFR (MDRD) Af Amer 45 L, Est GFR (MDRD) Non-Af 37 L, BUN/Creatinine Ratio 19.3, Glucose 101, Calcium 9.1 Micro: Microbiology 09/16/23 09:20 Blood Culture (Wb) - Left Hand Blood Culture - Final No growth in 5 days. 09/16/23 09:20 Blood Culture (Wb) #2 - Anticubital Right Blood Culture - Final No growth in 5 days. 09/16/23 09:20 Mucosa - Nose SARS-CoV-2, Influenza & RSV (PCR) - Final Physical Exam Const alert and no apparent distress Constitutional Narrative: Elderly female, morbidly obese, laying back in bed comfortably, moderately lethargic appearing on exam today, making appropriate eye contact but only gives a weak short responses to questions, otherwise in no acute distress. General Appearance: cooperative and comfortable Orientation / Consciousness: lethargic HEENT normocephalic, head/scalp atraumatic, hearing grossly normal bilaterally and nasal mucous membranes and turbinates normal Eyes PERRL, EOMs intact bilaterally and conjunctivae normal Neck full ROM Neck Narrative: HD catheter line in place, site appears clean and dry. Chest inspection of chest normal Resp normal respiratory effort and no use of accessory muscles Resp Narrative: Mildly decreased breath sounds throughout bilaterally. No wheezing or crackles noted. Breathing comfortably on 2 L nasal cannula. Cardio regular rate, regular rhythm, no murmurs and peripheral pulses 2+ throughout GI normal to inspection, nondistended, normoactive bowel sounds, soft to palpation, non-tender and non-distended Back/Spine normal ROM Extremity normal to inspection Extremity Narrative: +1-2 bilateral nonpitting lower extremity edema, chronic. Skin no rashes or lesions noted Neuro no focal motor deficits and no sensory deficits noted Assessment & Plan Assessment/Plan (1) ESRF (end stage renal failure): (2) Acute on chronic anemia: (3) Thrombocytopenia: PLAN: Plan Patient is a 63-year-old female who presented to [facility] ED on 09/16/2023 with worsening shortness of breath. 1. History of CKD stage V with progression to ESRD ? Nephrology following. Has right IJ temporary dialysis catheter in place cur rently. Has completed 3 rounds of dialysis as of 09/21. Tentatively planning for placement of tunneled dialysis catheter with surgery on 09/23. Planning for discharge back to SNF with outpatient dialysis, nephrology and case management to assist with this. 2. Acute on chronic hypoxic respiratory failure secondary to volume overload, improved ? On 4 L of oxygen at baseline. Improved with volume removal with dialysis sessions as noted above. Continue home bronchodilators. Incentive spirometry at bedside. 3. Thrombocytopenia, improving ? Evaluated by oncology on 09/16, felt most likely drug-induced secondary to recent exposure to several antimicrobials as well as recently starting PPI. Pl atelet count improving, up to 93 on 09/21. Continue to monitor CBC daily. Continue SCDs for DVT prophylaxis for now. 4. Acute on chronic anemia ? GI following. EGD 09/18 showed benign-appearing esophageal stenosis which was dilated, as well as acute gastritis and erosive gastropathy with active bleeding which was treated with heater probe. Continue p.o. PPI twice daily. Hemoglobin stable at 8-9, monitor CBC daily. 5. Intermittent lethargy ? Unclear etiology, could potentially be medication related. Noted to be fairly lethargic on 09/21 after home gabapentin administration. Currently on gabapentin 200 mg twice daily and 400 mg at night, may have an issue with clearing this medication due to her ESRD. Will decrease to gabapentin 100 mg twice daily and 300 mg at night. Continue to monitor. 6. Debility ? PT/OT/case management following. Planning for return to SNF on discharge. Chronic medical conditions: ? Super morbid obesity: BMI 51 on admit. Complicates hospital course, care, recovery and prognosis. ? Type 2 diabetes mellitus: A1c 7.6% on admit. Continue Lantus 13 units at night with sliding scale insulin with meals, adjust as needed. ? Hypothyroidism: TSH 4.07 on admit. Continue home Synthroid. DVT prophylaxis: SCDs CODE STATUS: Full code, unverified Expected disposition: Likely back to SNF, TBD Total clinical time spent by myself addressing the patient's medical issues, reviewing all the data, and collaborating with patient's care team: 35 minutes. Charges/Coding Visit Charges Inpatient E&M: 38844 Subs Hosp L2
[2023-09-23] VITALS (8 sets, daily range): BP systolic 150–186; BP diastolic 51–91; PULSE 64–108; RESP 16–20; TEMP 35.9–36.8; O2SAT 92–99; BMI 46.7
[2023-09-23] MEDS: Levothyroxine 150 MCG Tablet PO (05:25)
[2023-09-23] MEDS: Miconazole Nitrate 43 GM Bottle 1 APPLIC TOPICAL ×3 (05:25→22:04)
[2023-09-23] MEDS: Sucralfate 1 GM Tablet PO (05:27)
[2023-09-23 06:52] LABS: Hematocrit 27.6 % (37-47); Hemoglobin 8.4 g/dL (12.0-15.0); Mean Corp Hgb Conc 30.4 g/dL (32-36); Mean Corpuscular Hgb 27.5 pg (27.0-32.0); Mean Corpuscular Volume 90.2 fL (81-99); Mean Platelet Vol. 13.1 fl (6.2-12.0); POSITIVE COUNT YES; POSITIVE MORPHOLOGY YES; Platelet Count 26 K/mm3 (150-450); RBC Distribution Width CV 15.4 % (11.6-14.6); RBC Distribution Width SD 50.7 fl (35.1-43.9); Red Blood Count 3.06 M/mm3 (4.2-5.4); White Blood Count 5.3 K/mm3 (4.4-11.0)
[2023-09-23 07:00] LABS: Scan Indicated on CBC? Y/N YES- FLAGS NOTED
[2023-09-23 07:04] LABS: Anion Gap 2 (5-15); BUN 29 mg/dL (7-18); Calcium,Total 8.7 mg/dL (8.5-10.1); Chloride 110 mmol/L (98-107); Creatinine, Serum 1.53 mg/dL (0.55-1.02); EST Glomerular Filtration Rate 36 mL/min (>60); Est Glom Filt Rate - Afr Amer 44 mL/min (>60); Estimated Creatinine Clearance 49.33 ml/min; Glucose 115 mg/dL (74-106); Potassium 3.3 mmol/L (3.5-5.1); Sodium Level 141 mmol/L (136-145)
[2023-09-23 08:44] LABS: Hematocrit 24.1 % (37-47); Hemoglobin 7.4 g/dL (12.0-15.0); Mean Corp Hgb Conc 30.7 g/dL (32-36); Mean Corpuscular Hgb 27.5 pg (27.0-32.0); Mean Corpuscular Volume 89.6 fL (81-99); Mean Platelet Vol. 11.4 fl (6.2-12.0); POSITIVE COUNT YES; RBC Distribution Width CV 15.2 % (11.6-14.6); RBC Distribution Width SD 49.1 fl (35.1-43.9); Red Blood Count 2.69 M/mm3 (4.2-5.4); White Blood Count 6.3 K/mm3 (4.4-11.0)
[2023-09-23 08:45] LABS: Platelet Count 100 K/mm3 (150-450)
[2023-09-23 08:46] LABS: Scan Indicated on CBC? Y/N NO
[2023-09-23] MEDS: Gabapentin 100 MG Capsule PO (08:53)
[2023-09-23] MEDS: Fenofibrate 48 MG Tablet PO (08:53)
[2023-09-23] MEDS: Omega-3 Acid Ethyl Esters 1 GM Capsule PO (08:53)
[2023-09-23] MEDS: Pantoprazole Sodium 40 MG Tablet PO (08:53)
[2023-09-23] MEDS: Escitalopram Oxalate 10 MG Tablet PO (08:53)
[2023-09-23] MEDS: Potassium Chloride Oral Tablet 20 MEQ 40 MEQ PO (08:53)
[2023-09-23] MEDS: Menthol/Lanolin/Calamine/Znox 113 GM Tube 1 APPLIC TOPICAL ×2 (08:54→22:04)
--- NOTE | 2023-09-23 10:14 | PCM.PN.HOSP ---
Reason for Visit Reason for Visit: Diagnoses Anemia, unspecified (09/16/23) Thrombocytopenia, unspecified (09/16/23) Acute on chronic diastolic (congestive) heart failure (09/16/23) Heart failure, unspecified (09/16/23) Acute and chronic respiratory failure with hypoxia (09/16/23) Acute and chronic respiratory failure with hypercapnia (09/16/23) Respiratory failure, unspecified with hypoxia (09/16/23) Respiratory failure, unspecified with hypercapnia (09/16/23) Acute kidney failure, unspecified (09/16/23) End stage renal disease (09/16/23) Dyspnea, unspecified (09/16/23) Hypoxemia (09/16/23) Subjective Subjective No acute events overnight. Patient seen at bedside this morning. Patient continued to appear fatigued but was more awake and alert this morning than yesterday. She had just had a bowel movement and her main concern was having nursing staff, help to clean her out. She otherwise denied any acute pain or discomfort this morning. She was look forward to getting up out of bed with the assistance of nursing staff and therapy. No other acute concerns. Objective Data Objective Data Vital Signs: Vital Signs Temp Pulse Resp BP Pulse Ox O2 Del Method O2 Flow Rate 98.3 F 71 17 150/66 H 94 Nasal Cannula 2 09/23/23 08:55 09/23/23 08:55 09/23/23 08:55 09/23/23 08:55 09/23/23 08:55 09/23/23 08:55 09/23/23 08:55 FiO2 30 09/23/23 05:21 Oxygen Flow Rate (L/min) 2 Oxygen Delivery Method Nasal Cannula Weight: 127.6 kg Body Mass Index (BMI) 46.7 Intake & Output: Intake and Output for Last 24 Hours 09/21/23 09/22/23 09/23/23 23:59 23:59 23:59 Intake Total 906 / 906 1200 / 1200 50 / 50 Output Total 4525 / 5825 5600 / 5600 500 / 500 Balance -3619 / -4919 -4400 / -4400 -450 / -450 Lab / Micro Data 09/23/23 08:25 09/23/23 06:35 Labs: Laboratory Results - last 24 hr 09/20/23 07:35: Diff Path Review Reviewed 09/21/23 07:05: Diff Path Review Reviewed 09/22/23 10:42: WBC 7.9, RBC 3.11 L, Hgb 8.8 L, Hct 28.5 L, MCV 91.6, MCH 28.3, MCHC 30.9 L, RDW Std Deviation 51.9 H, RDW Coeff of Vlad 15.7 H, Plt Count 90 L, MPV 11.9, Sodium 143, Potassium 3.1 L, Chloride 110 H, Carbon Dioxide 32.0, Anion Gap 1 L, BUN 29 H, Creatinine 1.50 H, Estim Creat Clear Calc 51.85, Est GFR (MDRD) Af Amer 45 L, Est GFR (MDRD) Non-Af 37 L, BUN/Creatinine Ratio 19.3, Glucose 101, Calcium 9.1 09/23/23 06:35: WBC 5.3, RBC 3.06 L, Hgb 8.4 L, Hct 27.6 L, MCV 90.2, MCH 27.5, MCHC 30.4 L, RDW Std Deviation 50.7 H, RDW Coeff of Vlad 15.4 H, Plt Count 26 L*, MPV 13.1 H, Differential Comment COMMENT, Diff Path Review May , Sodium 141, Potassium 3.3 L, Chloride 110 H, Carbon Dioxide 29.0, Anion Gap 2 L, BUN 29 H, Creatinine 1.53 H, Estim Creat Clear Calc 49.33, Est GFR (MDRD) Af Amer 44 L, Est GFR (MDRD) Non-Af 36 L, BUN/Creatinine Ratio 19.0, Glucose 115 H, Calcium 8.7 09/23/23 08:25: WBC 6.3, RBC 2.69 L, Hgb 7.4 L, Hct 24.1 L, MCV 89.6, MCH 27.5, MCHC 30.7 L, RDW Std Deviation 49.1 H, RDW Coeff of Vlad 15.2 H, Plt Count 100 L, MPV 11.4 Micro: Microbiology 09/16/23 09:20 Blood Culture (Wb) - Left Hand Blood Culture - Final No growth in 5 days. 09/16/23 09:20 Blood Culture (Wb) #2 - Anticubital Right Blood Culture - Final No growth in 5 days. 09/16/23 09:20 Mucosa - Nose SARS-CoV-2, Influenza & RSV (PCR) - Final Physical Exam Const alert and no apparent distress Constitutional Narrative: Elderly female, morbidly obese, laying back in bed comfortably, fatigued but otherwise much more awake and alert today than yesterday, conversing normally, in no acute distress. General Appearance: cooperative and comfortable Orientation / Consciousness: lethargic HEENT normocephalic, head/scalp atraumatic, hearing grossly normal bilaterally and nasal mucous membranes and turbinates normal Eyes PERRL, EOMs intact bilaterally and conjunctivae normal Neck full ROM Neck Narrative: HD catheter line in place in right IJ, site appears clean and dry. Chest inspection of chest normal Resp normal respiratory effort and no use of accessory muscles Resp Narrative: Mildly decreased breath sounds throughout bilaterally. No wheezing or crackles noted. Breathing comfortably on 2 L nasal cannula. Cardio regular rate, regular rhythm, no murmurs and peripheral pulses 2+ throughout GI normal to inspection, nondistended, normoactive bowel sounds, soft to palpation, non-tender and non-distended Back/Spine normal ROM Extremity normal to inspection Extremity Narrative: +1-2 bilateral nonpitting lower extremity edema, chronic. Skin no rashes or lesions noted Neuro no focal motor deficits and no sensory deficits noted Speech: speech normal Psych affect normal Assessment & Plan Assessment/Plan (1) ESRF (end stage renal failure): (2) Acute on chronic anemia: (3) Thrombocytopenia: PLAN: Plan Patient is a 63-year-old female who presented to [facility] ED on 09/16/2023 with worsening shortness of breath. 1. History of CKD stage V with progression to ESRD ? Nephrology following. Has right IJ temporary dialysis catheter in place currently. Has completed 3 rounds of dialysis as of 09/21. Tentatively planning for placement of tunneled dialysis catheter with surgery on 09/23. Planning for discharge back to [facility] with outpatient dialysis, nephrology and case management to assist with this. 2. Acute on chronic hypoxic respiratory failure secondary to volume overload, improved ? On 4 L of oxygen at baseline. Improved with volume removal with dialysis sessions as noted above. Continue home bronchodilators. Incentive spirometry at bedside. 3. Thrombocytopenia, improving ? Evaluated by oncology on 09/16, felt most likely drug-induced secondary to recent exposure to several antimicrobials as well as recently starting PPI. Platelet count improving, up to 93 on 09/21. Notably had a platelet count of 26 on initial 09/22 morning CBC, however repeat CBC drawn in blue tube with citrate showed platelet count of 100, presume initial sample was not accurate due to platelet clumping. Continue to monitor daily CBC, will have drawn in blue tube. 4. Acute on chronic anemia ? GI following. EGD 09/18 showed benign-appearing esophageal stenosis which was dilated, as well as acute gastritis and erosive gastropathy with active bleeding which was treated with heater probe. Continue p.o. PPI twice daily. Hemoglobin slowly downtrending, most recent hemoglobin 7.4 on 09/22. Continue to monitor CBC daily, transfuse for hemoglobin less than 7. 5. Intermittent lethargy, improved ? Unclear etiology, suspected to be medication related. Patient was quite lethargic on exam on 09/21. Decreased home gabapentin dosing to 100 mg twice daily and 300 mg at night. Mentation much improved on 09/22. Monitor. 6. Debility ? PT/OT/case management following. Planning for return to SNF on discharge. Chronic medical conditions: ? Super morbid obesity: BMI 51 on admit. Complicates hospital course, care, recovery and prognosis. ? Type 2 diabetes mellitus: A1c 7.6% on admit. Continue Lantus 13 units at night with sliding scale insulin with meals, adjust as needed. ? Hypothyroidism: TSH 4.07 on admit. Continue home Synthroid. DVT prophylaxis: SCDs CODE STATUS: Full code, unverified Expected disposition: Likely back to SNF, TBD Total clinical time spent by myself addressing the patient's medical issues, reviewing all the data, and collaborating with patient's care team: 35 minutes. Charges/Coding Visit Charges Inpatient E&M: 85904 Subs Hosp L2
--- NOTE | 2023-09-23 11:09 | CASEMGMT ---
Satish is having troubles arranging pickling grader at dialysis for patient. They asked if [facility] could get something earlier. RN CM checked with [facility] and the only other time is T,Th,Sat at 12:40. WES let Satish know. WES also asked Satish if they would be able to transport patient to the [facility]. Await response. Varsha Villatoro MARKETING TEACHER RUBY
--- NOTE | 2023-09-23 11:17 | PCM.PN.SRG ---
Subjective Subjective Initial platelets were 29 on recheck they were 100. Objective Data Objective Data Vital Signs: Vital Signs Temp Pulse Resp BP Pulse Ox O2 Del Method O2 Flow Rate 98.3 F 71 17 150/66 H 94 Nasal Cannula 2 09/23/23 08:55 09/23/23 08:55 09/23/23 08:55 09/23/23 08:55 09/23/23 08:55 09/23/23 08:55 09/23/23 08:55 FiO2 30 09/23/23 05:21 Oxygen Flow Rate (L/min) 2 Oxygen Delivery Method Nasal Cannula Weight: 281 lb 4.957 oz Body Mass Index (BMI) 46.7 Intake & Output: Intake and Output for Last 24 Hours 09/21/23 09/22/23 09/23/23 23:59 23:59 23:59 Intake Total 906 / 906 1200 / 1200 50 / 50 Output Total 4525 / 5825 5600 / 5600 500 / 500 Balance -3619 / -4919 -4400 / -4400 -450 / -450 Lab / Micro Data 09/23/23 08:25 09/23/23 06:35 Labs: Laboratory Results - last 24 hr 09/20/23 07:35: Diff Path Review Reviewed 09/21/23 07:05: Diff Path Review Reviewed 09/22/23 10:42: Plt Count 90 L 09/23/23 06:35: WBC 5.3, RBC 3.06 L, Hgb 8.4 L, Hct 27.6 L, MCV 90.2, MCH 27.5, MCHC 30.4 L, RDW Std Deviation 50.7 H, RDW Coeff of Vlad 15.4 H, Plt Count 26 L*, MPV 13.1 H, Differential Comment COMMENT, Diff Path Review November, Sodium 141, Potassium 3.3 L, Chloride 110 H, Carbon Dioxide 29.0, Anion Gap 2 L, BUN 29 H, Creatinine 1.53 H, Estim Creat Clear Calc 49.33, Est GFR (MDRD) Af Amer 44 L, Est GFR (MDRD) Non-Af 36 L, BUN/Creatinine Ratio 19.0, Glucose 115 H, Calcium 8.7 09/23/23 08:25: WBC 6.3, RBC 2.69 L, Hgb 7.4 L, Hct 24.1 L, MCV 89.6, MCH 27.5, MCHC 30.7 L, RDW Std Deviation 49.1 H, RDW Coeff of Vlad 15.2 H, Plt Count 100 L, MPV 11.4 Micro: Microbiology 09/16/23 09:20 Blood Culture (Wb) - Left Hand Blood Culture - Final No growth in 5 days. 09/16/23 09:20 Blood Culture (Wb) #2 - Anticubital Right Blood Culture - Final No growth in 5 days. 09/16/23 09:20 Mucosa - Nose SARS-CoV-2, Influenza & RSV (PCR) - Final Physical Exam Narrative Temporary right IJ dialysis catheter in place Const oriented x3 and no apparent distress Resp normal respiratory effort Cardio regular rate GI soft to palpation and non-tender Assessment & Plan Assessment/Plan (1) ESRF (end stage renal failure): PLAN: Will plan placement of tunneled dialysis catheter tomorrow a.m.?discussed procedure with patient she had no further questions this time. Recheck platelets are at 100. Will have dialysis pull temporary dialysis catheter today. Suzette Ruiz M.D. Pager: [phone] [facility] [address] [place] [address], Outpatient [place], [address] [place] [address] Office: [phone] Charges/Coding Visit Charges Inpatient E&M: 40676 Subs Hosp L2
--- NOTE | 2023-09-23 12:41 | PN.RENAL_ITS ---
Subjective Subjective no new complaints Objective Data Objective Data Vital Signs: Vital Signs Temp Pulse Resp BP Pulse Ox O2 Del Method O2 Flow Rate 98.3 F 71 17 150/66 H 94 Nasal Cannula 2 09/23/23 08:55 09/23/23 08:55 09/23/23 08:55 09/23/23 08:55 09/23/23 08:55 09/23/23 08:55 09/23/23 08:55 FiO2 30 09/23/23 05:21 Oxygen Flow Rate (L/min) 2 Oxygen Delivery Method Nasal Cannula Weight: 127.6 kg Body Mass Index (BMI) 46.7 Intake & Output: Intake and Output for Last 24 Hours 09/21/23 09/22/23 09/23/23 23:59 23:59 23:59 Intake Total 906 / 906 1200 / 1200 50 / 50 Output Total 4525 / 5825 5600 / 5600 500 / 500 Balance -3619 / -4919 -4400 / -4400 -450 / -450 Lab / Micro Data 09/23/23 08:25 09/23/23 06:35 Labs: Laboratory Results - last 24 hr 09/20/23 07:35: Diff Path Review Reviewed 09/21/23 07:05: Diff Path Review Reviewed 09/23/23 06:35: WBC 5.3, RBC 3.06 L, Hgb 8.4 L, Hct 27.6 L, MCV 90.2, MCH 27.5, MCHC 30.4 L, RDW Std Deviation 50.7 H, RDW Coeff of Vlad 15.4 H, Plt Count 26 L*, MPV 13.1 H, Differential Comment COMMENT, Diff Path Review November, Sodium 141, Potassium 3.3 L, Chloride 110 H, Carbon Dioxide 29.0, Anion Gap 2 L, BUN 29 H, Creatinine 1.53 H, Estim Creat Clear Calc 49.33, Est GFR (MDRD) Af Amer 44 L, Est GFR (MDRD) Non-Af 36 L, BUN/Creatinine Ratio 19.0, Glucose 115 H, Calcium 8.7 09/23/23 08:25: WBC 6.3, RBC 2.69 L, Hgb 7.4 L, Hct 24.1 L, MCV 89.6, MCH 27.5, MCHC 30.7 L, RDW Std Deviation 49.1 H, RDW Coeff of Vlad 15.2 H, Plt Count 100 L, MPV 11.4 Micro: Microbiology 09/16/23 09:20 Blood Culture (Wb) - Left Hand Blood Culture - Final No growth in 5 days. 09/16/23 09:20 Blood Culture (Wb) #2 - Anticubital Right Blood Culture - Final No growth in 5 days. 09/16/23 09:20 Mucosa - Nose SARS-CoV-2, Influenza & RSV (PCR) - Final Physical Exam Narrative no obvious distress s1s2 no murmurs lungs rales anteriorly and posteriorly. On oxygen abdomen soft, non tender edema b/l legs Assessment & Plan Assessment/Plan (1) GASTON (acute kidney injury): PLAN: Baseline creatinine was around 2.0, sustained GASTON during last 2 previous admissions. Serologic workup negative. Obstructive workup negative. Massive proteinuria of 10 g. Presumably this is diabetes related. Currently has volume overload. - hypervolemic GASTON superimposed on CKD: SCr over past few weeks 3.6-4 with mild uremia and fluid overload. Started dialysis, Symptomatically better. - Thrombocytopenia. Previous workup showed normal LDH and haptoglobin, unlikely HUS or any form of TMA. Hematology has been consulted and opinion is multi- factoral related to Zyvox, sepsis, low probability of HIT, most likely drug induced. Zyvox was discontinued last admission. Platelets are better Tunneled line tomorrow urine output is better overall will keep her on HD for a while she has had 3 hospitalizations with GASTON and fluid issues
--- NOTE | 2023-09-23 15:15 | CASEMGMT ---
CLEM MELARA was able to get patient into [facility] with two chair time options. WES sent these times to [facility] and they will work on setting up transport. [facility] notified WES that they were able to get transport for 10:50a with picker tender of 330p. WES notified CLEM MELARA who notified Alethea at [facility]. WES also asked [facility] to please start the pre-cert. Varsha Villatoro PSYCHIATRIC CLINICIAN RUBY
--- NOTE | 2023-09-23 15:25 | CASEMGMT ---
CLEM MELARA updated by WES that SNF is having difficulty finding transportation to [facility] and requested location be changed to [facility]. CLEM MELARA called [facility] and spoke with Alethea. Per Alethea they have a chair time of MWF at 1040. CLEM MELARA updated SW. WES updated [facility] and they are able to arrange transport for that chair time. CLEM MELARA called Alethea back at [facility] to confirm chair time for MWF at 1040. Anticipated start of care for Friday at [facility]. CM updated SW with confirmed chair time and HD center.
--- NOTE | 2023-09-23 16:01 | CASEMGMT ---
Discharge Planning Updates sent to [facility] for precert to be submitted. Louise King, Discharge Planning Asst.
--- NOTE | 2023-09-23 18:59 | EX.PCM.PN.GI ---
Subjective Subjective Patient continues to improve and is more alert and awake today. She is up and sitting in chair and eating. Objective Data Objective Data Vital Signs: Vital Signs Temp Pulse Resp BP Pulse Ox O2 Del Method O2 Flow Rate 97.8 F 72 17 154/51 H 95 Nasal Cannula 2 09/23/23 15:00 09/23/23 15:00 09/23/23 15:00 09/23/23 15:00 09/23/23 15:00 09/23/23 15:00 09/23/23 15:00 FiO2 30 09/23/23 05:21 Oxygen Flow Rate (L/min) 2 Oxygen Delivery Method Nasal Cannula Weight: 281 lb 4.957 oz Body Mass Index (BMI) 46.7 Intake & Output: Intake and Output for Last 24 Hours 09/21/23 09/22/23 09/23/23 23:59 23:59 23:59 Intake Total 906 / 906 1200 / 1200 50 / 50 Output Total 4525 / 5825 5600 / 5600 650 / 650 Balance -3619 / -4919 -4400 / -4400 -600 / -600 Lab / Micro Data 09/23/23 08:25 09/23/23 06:35 Labs: Laboratory Results - last 24 hr 09/23/23 06:35: WBC 5.3, RBC 3.06 L, Hgb 8.4 L, Hct 27.6 L, MCV 90.2, MCH 27.5, MCHC 30.4 L, RDW Std Deviation 50.7 H, RDW Coeff of Vlad 15.4 H, Plt Count 26 L*, MPV 13.1 H, Differential Comment COMMENT, Diff Path Review November, Sodium 141, Potassium 3.3 L, Chloride 110 H, Carbon Dioxide 29.0, Anion Gap 2 L, BUN 29 H, Creatinine 1.53 H, Estim Creat Clear Calc 49.33, Est GFR (MDRD) Af Amer 44 L, Est GFR (MDRD) Non-Af 36 L, BUN/Creatinine Ratio 19.0, Glucose 115 H, Calcium 8.7 09/23/23 08:25: WBC 6.3, RBC 2.69 L, Hgb 7.4 L, Hct 24.1 L, MCV 89.6, MCH 27.5, MCHC 30.7 L, RDW Std Deviation 49.1 H, RDW Coeff of Vlad 15.2 H, Plt Count 100 L, MPV 11.4 Micro: Microbiology 09/16/23 09:20 Blood Culture (Wb) - Left Hand Blood Culture - Final No growth in 5 days. 09/16/23 09:20 Blood Culture (Wb) #2 - Anticubital Right Blood Culture - Final No growth in 5 days. 09/16/23 09:20 Mucosa - Nose SARS-CoV-2, Influenza & RSV (PCR) - Final Physical Exam Narrative Temporary right IJ dialysis catheter in place Const oriented x3 and no apparent distress Resp normal respiratory effort Cardio regular rate GI soft to palpation and non-tender Assessment & Plan Assessment/Plan (1) Acute on chronic heart failure with preserved ejection fraction (HFpEF): (2) Acute on chronic respiratory failure with hypoxia and hypercapnia: (3) GASTON (acute kidney injury): PLAN: Plan Patient is a 63-year-old female who presented to [facility] ED on 08/26/2023 with worsening shortness of breath at rest and altered mental status. She was discovered to have significant decrease in hemoglobin. Acute on chronic anemia, recurrent upper GI bleed due to gastric ulcer Hemoglobin 9.1 on admit, down trended to hemoglobin 6.9 on hospital day 2. Baseline hemoglobin appears to be around 8-9. Seems most likely due to lab draws and hemodilution on admission, but patient does have history of peptic ulcer disease with duodenitis requiring EGD in 04/2023. Patient denies any dark or bloody stools. S/p 2 units packed red blood cells transfused as of 08/30. - EGD on 08/30 that showed an oozing gastric ulcer with pigmented material that was injected and treated with heater probe as well as acute duodenitis was biopsied. Hemoglobin stable post EGD, continue to monitor CBC daily. Continue home p.o. PPI twice daily. - EGD on 09/18 displayed: One benign-appearing, intrinsic moderate (circumferential scarring or stenosis; an endoscope may pass) stenosis was found 18 to 20 cm from the incisors. This stenosis measured 4 mm (inner diameter) x 3 cm (in length). The stenosis was traversed after dilation. A guidewire was placed and the scope was withdrawn. Dilation was performed with a Savary dilator with no resistance at 42 Fr. The dilation site was examined and showed moderate mucosal disruption. Estimated blood loss was minimal. Patchy severe inflammation characterized by erosions, erythema and friability was found in the cardia. Biopsies were taken with a cold forceps for histology. Verification of patient identification for the specimen was done. Estimated blood loss was minimal. Biopsies were taken with a cold forceps for Helicobacter pylori testing. Verification of patient identification for the specimen was done. Estimated blood loss was minimal. Multiple localized 5 mm erosions with active bleeding were found in the cardia. Coagulation for hemostasis using heater probe was successful. Recommendations: Continue PPI therapy and monitor hemoglobin. She will need an outpatient colonoscopy.. 09/22/23-patient's platelet count and hemoglobin are improving nicely. Thrombocytopenia likely secondary to drug toxicity. Patient continues to do well. Continue PPI p.o. twice daily and Carafate 1 p.o. twice daily and continue to monitor blood counts. 09/23/23-platelet count continues to improve. Hemoglobin is holding steady. It is up to hematology oncology if she stays on PPI therapy as it can cause thrombocytopenia. I am okay with her going to an H2 receptor daniel if needed. Continue Carafate therapy. Charges/Coding Visit Charges Inpatient E&M: 83629 Subs Hosp L3
[2023-09-23] MEDS: Ondansetron 4 MG/2 ML Vial IV (22:03)
[2023-09-23] MEDS: 0.9% Saline Lock 10 ML Syringe IV (22:03)
[2023-09-24] VITALS (16 sets, daily range): BP systolic 74–199; BP diastolic 48–74; PULSE 57–90; RESP 14–18; TEMP 36.6–37.9; O2SAT 90–100; BMI 45.8; BMI 44.8
[2023-09-24] MEDS: Dextrose 5%-Water (1000mL Bag) 1,000 ML 30 ML IV (00:40)
--- NOTE | 2023-09-24 03:26 | CPS ---
Pt has been throwing up this evening, Bipap not applied this pm. Pt is easy to wake on 2 of nasal O2
[2023-09-24] MEDS: Sucralfate 1 GM Tablet PO ×2 (06:25→16:18)
[2023-09-24] MEDS: Pantoprazole Sodium 40 MG Tablet PO ×2 (06:25→21:48)
[2023-09-24] MEDS: Levothyroxine 150 MCG Tablet PO (06:25)
[2023-09-24] MEDS: Miconazole Nitrate 43 GM Bottle 1 APPLIC TOPICAL ×3 (06:25→21:55)
[2023-09-24 06:54] LABS: International Normalized Ratio 1.4; Prothrombin Time (Protime)PT. 17.1 SECONDS (11.7-14.9)
[2023-09-24 06:57] LABS: Absolute Lymphocyte Count 0.19 X10^3/uL (0.83-4.51); Absolute Neutrophil Count 8.6 X10^3/uL (2.0-7.7); Basophil# 0.05 X10^3/uL; Basophil% 0.5 % (0-1); Eosinophil# 0.04 X10^3/uL; Eosinophils% 0.4 % (0-5); Hematocrit 29.1 % (37-47); Lymphocyte # 0.19 X10^3/ul (0.83-4.51); Lymphocyte % 1.9 % (19-41); Mean Corp Hgb Conc 30.9 g/dL (32-36); Mean Corpuscular Hgb 27.4 pg (27.0-32.0); Mean Corpuscular Volume 88.7 fL (81-99); Mean Platelet Vol. 11.5 fl (6.2-12.0); Monocyte# 0.63 X10^3/uL; Monocyte% 6.3 % (0-10); NRBC Flagged by Analyzer 0 % (0-5); Neutrophil # 8.62 X10^3/uL (2.7-7.7); Neutrophil % 85.4 % (47-70); POSITIVE COUNT YES; POSITIVE DIFFERENTIAL YES; POSITIVE MORPHOLOGY YES; RBC Distribution Width CV 15.1 % (11.6-14.6); RBC Distribution Width SD 48.6 fl (35.1-43.9); Red Blood Count 3.28 M/mm3 (4.2-5.4); White Blood Count 10.1 K/mm3 (4.4-11.0)
[2023-09-24 06:58] LABS: Anion Gap 5 (5-15); BUN 24 mg/dL (7-18); BUN/Creat Ratio 14.1 RATIO (10-20); Calcium,Total 8.7 mg/dL (8.5-10.1); Chloride 109 mmol/L (98-107); EST Glomerular Filtration Rate 32 mL/min (>60); Est Glom Filt Rate - Afr Amer 39 mL/min (>60); Estimated Creatinine Clearance 43.83 ml/min; Glucose 177 mg/dL (74-106); Potassium 3.4 mmol/L (3.5-5.1); Sodium Level 146 mmol/L (136-145)
[2023-09-24 07:01] LABS: Platelet Count 106 K/mm3 (150-450)
[2023-09-24 07:02] LABS: Differential Indicated SCAN CRITERIA MET
[2023-09-24 09:20] LABS: Pathologist Review Reviewed
[2023-09-24] MEDS: 0.9% Normal Saline (1000mL) 1,000 ML 15 ML IV (10:19)
[2023-09-24] MEDS: Cefazolin 3 GM in 0.9% Normal Saline (100mL Bag) 100 ML IV (11:07)
[2023-09-24] MEDS: Lidocaine 1% (30 ml sdv) 30 ML Vial (11:14)
[2023-09-24] MEDS: Bupiv/Epi 0.25% 30 ML Vial (11:14)
[2023-09-24] MEDS: Heparin 10,000 UNITS/10 ML Vial 10000 UNITS (11:25)
--- NOTE | 2023-09-24 11:32 | PCM.OPRPT ---
Report of Operation Date of Procedure: 09/24/23 Pre-Operative Diagnosis: End-stage renal failure Post-Operative Diagnosis: Same Surgery/Procedure Performed:: Placement of right IJ tunnel dialysis catheter Use of fluoroscopy Use of ultrasound Surgeon: Suzette Ruiz Type of Anesthesia: Local MAC Anesthesiologist: sOcar Constantino Special Medications: Ancef 3 g IV x 1 Specimen's removed: None Estimated Blood Loss (mL): < 10cc Description of Procedure: After informed consent was given, the patient was brought to the operating room and placed in the supine position. Appropriate time out protocol was followed. She was then given IV conscious sedation for anesthesia. The patient's right upper chest and neck were then prepped with a surgical skin preparation and sterile surgical drapes were placed. After proper landmarks were ascertained, the skin at the upper right chest area was then infiltrated with 1:1 mixture of 1% lidocaine with epinephrine and 0.25% maricaine. A needle trocar was then inserted into the right internal jugular vein with ultrasound guidance-multiple vessels were viewed with u/s and the right IJ was chosen-- and there was good aspiration of venous blood. A wire was then threaded into the needle trocar and this was visualized under fluoroscopy to ensure that the wire was in the superior vena cava. Once this was done, then the needle trocar was removed. A small incision was made with an 11 blade knife at the wire entrance site. The dilator x2 with the introducer sheath attached was then placed over the wire into the right internal jugular vein via the Seldinger technique and this was visualized under fluoroscopy. Next the introducer and sheath were in proper position as visualized by fluoroscopy. The location of the cuffed was estimated on the skin, an incision was made with a 15 blade scalpel. The 14.5 Fr x 19 cm Palindrome dual lumen (Lot [id number] reference [id number]) was tunneled from the chest incision to the right neck incision. The sheath was removed. The catheter was placed through the introducer and was positioned with its tip at the junction of the superior vena cava and the right atrium as visualized under fluoroscopy. The cuff of the catheter was in the subcutaneous tissue. The catheter flushed and omayra well with saline. Catheter was also flushed with 1.5 cc of 1-10,000 of heparin. Hemostasis was assured. Silver dressing was placed at the catheter exit site. Catheter was sutured with 3-0 nylon sutures. The neck incision was sutured with interrupted 3-0 Vicryl interrupted sutures x2 and Steri-Strips were placed. A large OpSite was placed over the catheter site and a small OpSite over the neck incision. The patient tolerated the procedure well. Grafts/Implants Used: 14.5 Fr x 19 cm Palindrome dual lumen (Lot [id number] reference [id number] Complications none
--- NOTE | 2023-09-24 11:55 | RAD_ITS ---
HISTORY: dialysis catheter -- pacu. TECHNIQUE: XR Chest 1 View. COMPARISON: 09/19/2023. FINDINGS: LINES/TUBES: Double lumen right internal jugular central venous catheter tip at the level of the distal superior vena cava. CARDIOMEDIASTINAL BORDERS: Stable borderline cardiomegaly. LUNGS: Mild decreased mixed interstitial and alveolar opacities. PLEURA: No pleural effusion or pneumothorax. RAD/Chest 1 View (Portable) IMPRESSION: Satisfactory position of central venous catheter. Slightly decreased pulmonary edema or pneumonia. Electronically Signed: Sofía Yu MD at 12:10 EST ,
[2023-09-24] MEDS: 0.9% Saline Lock 10 ML Syringe IV ×2 (12:30→13:02)
--- NOTE | 2023-09-24 12:55 | PN.RENAL_ITS ---
Subjective Subjective no new events Objective Data Objective Data Vital Signs: Vital Signs Temp Pulse Resp BP Pulse Ox O2 Del Method O2 Flow Rate 97.8 F 72 18 139/49 H 92 Nasal Cannula 4 09/24/23 12:19 09/24/23 12:19 09/24/23 12:19 09/24/23 12:19 09/24/23 12:19 09/24/23 12:27 09/24/23 12:27 FiO2 30 09/23/23 05:21 Oxygen Flow Rate (L/min) 4 Oxygen Delivery Method Nasal Cannula Weight: 124.9 kg Body Mass Index (BMI) 45.8 Intake & Output: Intake and Output for Last 24 Hours 09/22/23 09/23/23 09/24/23 23:59 23:59 23:59 Intake Total 1200 / 1200 100 / 100 1654.5 / 1654.5 Output Total 5600 / 5600 2550 / 2550 1000 / 1000 Balance -4400 / -4400 -2450 / -2450 654.5 / 654.5 Lab / Micro Data 09/24/23 06:05 09/24/23 06:05 Labs: Laboratory Results - last 24 hr 09/23/23 06:35: Diff Path Review Reviewed 09/24/23 06:05: WBC 10.1, RBC 3.28 L, Hgb 9.0 L, Hct 29.1 L, MCV 88.7, MCH 27.4, MCHC 30.9 L, RDW Std Deviation 48.6 H, RDW Coeff of Vlad 15.1 H, Plt Count 106 L, MPV 11.5, Immature Gran % (Auto) 5.500 H, Neut % (Auto) 85.4 H, Lymph % (Auto) 1.9 L, [place] % (Auto) 6.3, Eos % (Auto) 0.4, Baso % (Auto) 0.5, Absolute Neuts (auto) 8.6 H, Absolute Lymphs (auto) 0.19 L, Nucleated RBC % 0, PT 17.1 H, INR 1.4, Sodium 146 H, Potassium 3.4 L, Chloride 109 H, Carbon Dioxide 32.0, Anion Gap 5, BUN 24 H, Creatinine 1.70 H, Estim Creat Clear Calc 43.83, Est GFR (MDRD) Af Amer 39 L, Est GFR (MDRD) Non-Af 32 L, BUN/Creatinine Ratio 14.1, Glucose 177 H, Calcium 8.7 Micro: Microbiology 09/16/23 09:20 Blood Culture (Wb) - Left Hand Blood Culture - Final No growth in 5 days. 09/16/23 09:20 Blood Culture (Wb) #2 - Anticubital Right Blood Culture - Final No growth in 5 days. 09/16/23 09:20 Mucosa - Nose SARS-CoV-2, Influenza & RSV (PCR) - Final Radiography Diagnostic Testing: Radiology Impression Chest X-Ray 09/24/23 11:55 IMPRESSION: Satisfactory position of central venous catheter. Slightly decreased pulmonary edema or pneumonia. Electronically Signed: Sofía Yu MD at 12:10 EST , Physical Exam Narrative no obvious distress s1s2 no murmurs lungs rales anteriorly and posteriorly. On oxygen abdomen soft, non tender edema b/l legs Assessment & Plan Assessment/Plan (1) GASTON (acute kidney injury): PLAN: Baseline creatinine was around 2.0, sustained GASTON during last 2 previous admissions. Serologic workup negative. Obstructive workup negative. Massive proteinuria of 10 g. Presumably this is diabetes related. - hypervolemic GASTON superimposed on CKD: SCr over past few weeks 3.6-4 with mild uremia and fluid overload. Started dialysis, Symptomatically better. - Thrombocytopenia. Previous workup showed normal LDH and haptoglobin, unlikely HUS or any form of TMA. Hematology has been consulted and opinion is multi- factoral related to Zyvox, sepsis, low probability of HIT, most likely drug induced. Zyvox was discontinued last admission. Platelets are better Tunneled line today urine output better if her breathing is stable for 3-4 weeks and she manages to stay out of hospital for that time we may be able to take her off dialysis.
[2023-09-24] MEDS: 0.9% Normal Saline 1,000 ML IV.SOLN. 1000 ML OPERA.SITE (13:01)
[2023-09-24] MEDS: PureFlow B 3K Dialysis Soln 1 BAG 6 BAG PF (13:01)
--- NOTE | 2023-09-24 13:24 | PCM.PN.HOSP ---
Reason for Visit Reason for Visit: Diagnoses Anemia, unspecified (09/16/23) Thrombocytopenia, unspecified (09/16/23) Acute on chronic diastolic (congestive) heart failure (09/16/23) Heart failure, unspecified (09/16/23) Acute and chronic respiratory failure with hypoxia (09/16/23) Acute and chronic respiratory failure with hypercapnia (09/16/23) Respiratory failure, unspecified with hypoxia (09/16/23) Respiratory failure, unspecified with hypercapnia (09/16/23) Acute kidney failure, unspecified (09/16/23) End stage renal disease (09/16/23) Dyspnea, unspecified (09/16/23) Hypoxemia (09/16/23) Subjective Subjective No acute events overnight. Patient seen at bedside this afternoon as she was having her tunneled HD catheter line placed with surgery this morning. Nurse at bedside, patient was having hemodialysis done in the room during our encounter. Patient appeared fatigued but was answering questions appropriately and her mentation appeared similar to yesterday, which was significantly improved from previous. She denied any pain or discomfort at the new HD catheter site. No other acute concerns at this time. Objective Data Objective Data Vital Signs: Vital Signs Temp Pulse Resp BP Pulse Ox O2 Del Method O2 Flow Rate 97.8 F 68 18 143/59 H 92 Nasal Cannula 3.5 09/24/23 12:19 09/24/23 12:30 09/24/23 12:30 09/24/23 12:30 09/24/23 12:30 09/24/23 12:30 09/24/23 12:30 FiO2 30 09/23/23 05:21 Oxygen Flow Rate (L/min) 3.5 Oxygen Delivery Method Nasal Cannula Weight: 124.9 kg Body Mass Index (BMI) 45.8 Intake & Output: Intake and Output for Last 24 Hours 09/22/23 09/23/23 09/24/23 23:59 23:59 23:59 Intake Total 1200 / 1200 100 / 100 1654.5 / 1654.5 Output Total 5600 / 5600 2550 / 2550 1000 / 1000 Balance -4400 / -4400 -2450 / -2450 654.5 / 654.5 Lab / Micro Data 09/24/23 06:05 09/24/23 06:05 Labs: Laboratory Results - last 24 hr 09/23/23 06:35: Diff Path Review Reviewed 09/24/23 06:05: WBC 10.1, RBC 3.28 L, Hgb 9.0 L, Hct 29.1 L, MCV 88.7, MCH 27.4, MCHC 30.9 L, RDW Std Deviation 48.6 H, RDW Coeff of Vlad 15.1 H, Plt Count 106 L, MPV 11.5, Immature Gran % (Auto) 5.500 H, Neut % (Auto) 85.4 H, Lymph % (Auto) 1.9 L, Chase % (Auto) 6.3, Eos % (Auto) 0.4, Baso % (Auto) 0.5, Absolute Neuts (auto) 8.6 H, Absolute Lymphs (auto) 0.19 L, Nucleated RBC % 0, PT 17.1 H, INR 1.4, Sodium 146 H, Potassium 3.4 L, Chloride 109 H, Carbon Dioxide 32.0, Anion Gap 5, BUN 24 H, Creatinine 1.70 H, Estim Creat Clear Calc 43.83, Est GFR (MDRD) Af Amer 39 L, Est GFR (MDRD) Non-Af 32 L, BUN/Creatinine Ratio 14.1, Glucose 177 H, Calcium 8.7 Micro: Microbiology 09/16/23 09:20 Blood Culture (Wb) - Left Hand Blood Culture - Final No growth in 5 days. 09/16/23 09:20 Blood Culture (Wb) #2 - Anticubital Right Blood Culture - Final No growth in 5 days. 09/16/23 09:20 Mucosa - Nose SARS-CoV-2, Influenza & RSV (PCR) - Final Radiography Diagnostic Testing: Radiology Impression Chest X-Ray 09/24/23 11:55 IMPRESSION: Satisfactory position of central venous catheter. Slightly decreased pulmonary edema or pneumonia. Electronically Signed: Sofía Yu MD at 12:10 EST , Physical Exam Const alert and no apparent distress Constitutional Narrative: Elderly female, morbidly obese, laying back in bed comfortably, fatigued but otherwise much more awake and alert today than yesterday, conversing normally, in no acute distress. General Appearance: cooperative and comfortable Orientation / Consciousness: lethargic HEENT normocephalic, head/scalp atraumatic, hearing grossly normal bilaterally and nasal mucous membranes and turbinates normal Eyes PERRL, EOMs intact bilaterally and conjunctivae normal Neck full ROM Neck Narrative: Temporary right IJ catheter removed, bandage over site appears clean and dry. Chest inspection of chest normal Chest Narrative: New tunneled HD catheter line in place, site appears clean and dry. Resp normal respiratory effort and no use of accessory muscles Resp Narrative: Mildly decreased breath sounds throughout bilaterally. No wheezing or crackles noted. Breathing comfortably on 2 L nasal cannula. Cardio regular rate, regular rhythm, no murmurs and peripheral pulses 2+ throughout GI normal to inspection, nondistended, normoactive bowel sounds, soft to palpation, non-tender and non-distended Back/Spine normal ROM Extremity normal to inspection Extremity Narrative: +1-2 bilateral nonpitting lower extremity edema, chronic. Skin no rashes or lesions noted Neuro no focal motor deficits and no sensory deficits noted Speech: speech normal Psych affect normal Assessment & Plan Assessment/Plan (1) ESRF (end stage renal failure): (2) Acute on chronic anemia: (3) Thrombocytopenia: PLAN: Plan Patient is a 63-year-old female who presented to [facility] ED on 09/16/2023 with worsening shortness of breath. 1. History of CKD stage V with progression to ESRD ? Nephrology following. Has right IJ temporary dialysis catheter in place currently. Has completed 3 rounds of dialysis as of 09/21. S/p placement of tunneled HD catheter line with surgery on 09/23. S/p hemodialysis on afternoon of 09/23, patient tolerated without issue. Planning for discharge back to [facility] with outpatient dialysis; has outpatient chair ready at this time with plan to start on Monday 09/25. 2. Acute on chronic hypoxic respiratory failure secondary to volume overload, resolved ? On 4 L of oxygen at baseline. Improved with volume removal with dialysis sessions as noted above. Continue home bronchodilators. Incentive spirometry at bedside. 3. Thrombocytopenia, improving ? Evaluated by oncology on 09/16, felt most likely drug-induced secondary to recent exposure to several antimicrobials as well as recently starting PPI. Platelet count improving, up to 93 on 09/21. Notably had a platelet count of 26 on initial 09/22 morning CBC, however repeat CBC drawn in blue tube with citrate showed platelet count of 100, presume initial sample was not accurate due to platelet clumping. Continue to monitor daily CBC, will have drawn in blue tube. 4. Acute on chronic anemia ? GI following. EGD 09/18 showed benign-appearing esophageal stenosis which was dilated, as well as acute gastritis and erosive gastropathy with active bleeding which was treated with heater probe. Continue p.o. PPI twice daily. Hemoglobin slowly downtrending, most recent hemoglobin 9.0 on 09/23. Continue to monitor CBC daily, transfuse for hemoglobin less than 7. 5. Intermittent lethargy, improved ? Unclear etiology, suspected to be medication related. Patient was quite lethargic on exam on 09/21. Decreased home gabapentin dosing to 100 mg twice daily and 300 mg at night. Mentation much improved on 09/22. Monitor. 6. Debility ? PT/OT/case management following. Planning for return to SNF on discharge, hopeful that patient will be medically stable for discharge on 09/24. Chronic medical conditions: ? Super morbid obesity: BMI 51 on admit. Complicates hospital course, care, recovery and prognosis. ? Type 2 diabetes mellitus: A1c 7.6% on admit. Continue Lantus 13 units at night with sliding scale insulin with meals, adjust as needed. ? Hypothyroidism: TSH 4.07 on admit. Continue home Synthroid. DVT prophylaxis: SCDs CODE STATUS: Full code, unverified Expected disposition: Back to SNF, 1 to 2 days Total clinical time spent by myself addressing the patient's medical issues, reviewing all the data, and collaborating with patient's care team: 35 minutes. Charges/Coding Visit Charges Inpatient E&M: 19802 Subs Hosp L2
--- NOTE | 2023-09-24 14:42 | CASEMGMT ---
WES updated patient that dialysis has been set up and [facility] will be able to transport her back and forth to dialysis. Plan: d/c to [facility] pending insurance approval. Varsha BELTRAN
[2023-09-24] MEDS: Gabapentin 100 MG Capsule PO (16:18)
[2023-09-24] MEDS: Fenofibrate 48 MG Tablet PO (16:18)
[2023-09-24] MEDS: Escitalopram Oxalate 10 MG Tablet PO (16:18)
[2023-09-24] MEDS: Atorvastatin Calcium 10 MG Tablet PO (21:48)
[2023-09-24] MEDS: Gabapentin 300 MG Capsule PO (21:48)
[2023-09-24] MEDS: Pramipexole Di-HCl 0.5 MG Tablet 1.5 MG PO (21:48)
[2023-09-24] MEDS: Menthol/Lanolin/Calamine/Znox 113 GM Tube 1 APPLIC TOPICAL (21:55)
[2023-09-25 03:33] VITALS: BMI 44.8
[2023-09-25 04:06] VITALS: BP 141/56; PULSE 76; RESP 16; TEMP 36.9; O2SAT 98
[2023-09-25 04:11] VITALS: O2SAT 94
[2023-09-25] MEDS: Miconazole Nitrate 43 GM Bottle 1 APPLIC TOPICAL (06:12)
[2023-09-25 06:38] LABS: Bedside Glucose 112 mg/dL (74-106)
[2023-09-25 06:51] LABS: Hematocrit 25.3 % (37-47); Hemoglobin 7.9 g/dL (12.0-15.0); Mean Corp Hgb Conc 31.2 g/dL (32-36); Mean Corpuscular Hgb 27.4 pg (27.0-32.0); Mean Corpuscular Volume 87.8 fL (81-99); Mean Platelet Vol. 12.6 fl (6.2-12.0); POSITIVE COUNT YES; Platelet Count 60 K/mm3 (150-450); RBC Distribution Width CV 14.8 % (11.6-14.6); RBC Distribution Width SD 47.6 fl (35.1-43.9); Red Blood Count 2.88 M/mm3 (4.2-5.4); White Blood Count 3.7 K/mm3 (4.4-11.0)
[2023-09-25 07:05] LABS: Scan Indicated on CBC? Y/N YES- FLAGS NOTED
[2023-09-25 07:37] LABS: Anion Gap 7 (5-15); BUN 23 mg/dL (7-18); BUN/Creat Ratio 14.7 RATIO (10-20); Calcium,Total 8.3 mg/dL (8.5-10.1); Chloride 108 mmol/L (98-107); Creatinine, Serum 1.56 mg/dL (0.55-1.02); EST Glomerular Filtration Rate 35 mL/min (>60); Est Glom Filt Rate - Afr Amer 43 mL/min (>60); Estimated Creatinine Clearance 47.11 ml/min; Glucose 114 mg/dL (74-106); Potassium 3.3 mmol/L (3.5-5.1); Sodium Level 145 mmol/L (136-145)
[2023-09-25 07:46] VITALS: O2SAT 94
--- NOTE | 2023-09-25 08:11 | PN.SURG_ITS ---
Subjective Subjective no issues with dialysis yesterday w new catheter Objective Data Objective Data Vital Signs: Vital Signs Temp Pulse Resp BP Pulse Ox O2 Del Method O2 Flow Rate 98.4 F 76 16 141/56 H 94 Nasal Cannula 2 09/25/23 04:06 09/25/23 04:06 09/25/23 04:06 09/25/23 04:06 09/25/23 04:11 09/25/23 04:11 09/25/23 04:11 FiO2 30 09/23/23 05:21 Oxygen Flow Rate (L/min) 2 Oxygen Delivery Method Nasal Cannula Weight: 268 lb 15.423 oz Body Mass Index (BMI) 44.8 Intake & Output: Intake and Output for Last 24 Hours 09/23/23 09/24/23 09/25/23 23:59 23:59 23:59 Intake Total 100 / 100 1654.5 / 1654.5 Output Total 2550 / 2550 4300 / 4300 100 / 100 Balance -2450 / -2450 -2645.5 / -2645.5 -100 / -100 Lab / Micro Data 09/25/23 06:27 09/25/23 06:27 Labs: Laboratory Results - last 24 hr 09/23/23 06:35: Diff Path Review Reviewed 09/25/23 06:16: POC Glucose 112 H 09/25/23 06:27: WBC 3.7 L, RBC 2.88 L, Hgb 7.9 L, Hct 25.3 L, MCV 87.8, MCH 27.4, MCHC 31.2 L, RDW Std Deviation 47.6 H, RDW Coeff of Vlad 14.8 H, Plt Count 60 L, MPV 12.6 H, Sodium 145, Potassium 3.3 L, Chloride 108 H, Carbon Dioxide 30.0, Anion Gap 7, BUN 23 H, Creatinine 1.56 H, Estim Creat Clear Calc 47.11, Est GFR (MDRD) Af Amer 43 L, Est GFR (MDRD) Non-Af 35 L, BUN/Creatinine Ratio 14.7, Glucose 114 H, Calcium 8.3 L Micro: Microbiology 09/16/23 09:20 Blood Culture (Wb) - Left Hand Blood Culture - Final No growth in 5 days. 09/16/23 09:20 Blood Culture (Wb) #2 - Anticubital Right Blood Culture - Final No growth in 5 days. 09/16/23 09:20 Mucosa - Nose SARS-CoV-2, Influenza & RSV (PCR) - Final Radiography Diagnostic Testing: Radiology Impression Chest X-Ray 09/24/23 11:55 IMPRESSION: Satisfactory position of central venous catheter. Slightly decreased pulmonary edema or pneumonia. Electronically Signed: Sofía Yu MD at 12:10 EST Reading Location ID and State: [facility] / [place] Tel , Service support , Physical Exam Narrative right neck/chest- dialysis catheter in place, dressing clean/dry Const no apparent distress Assessment & Plan Assessment/Plan (1) ESRF (end stage renal failure): PLAN: no issues with catheter for dialysis yesterday. will s/o call with questions. Suzette Ruiz M.D. Pager: [phone] [facility] [address] [place] [address], [address] [place] [address] Office: [phone]
[2023-09-25 09:04] VITALS: BP 143/58; PULSE 68; RESP 16; TEMP 36.6; O2SAT 93
[2023-09-25] MEDS: Pantoprazole Sodium 40 MG Tablet PO (09:06)
[2023-09-25] MEDS: Omega-3 Acid Ethyl Esters 1 GM Capsule PO (09:06)
[2023-09-25] MEDS: Menthol/Lanolin/Calamine/Znox 113 GM Tube 1 APPLIC TOPICAL (09:09)
[2023-09-25] MEDS: Gabapentin 100 MG Capsule PO ×2 (09:09→16:28)
[2023-09-25] MEDS: Escitalopram Oxalate 10 MG Tablet PO (09:09)
[2023-09-25 10:12] LABS: Bedside Glucose 111 mg/dL (74-106)
--- NOTE | 2023-09-25 13:43 | PCM.DC ---
Discharge Instructions Diet Discharge Diet: No restrictions Activity Discharge Activity: No Restrictions Weight Bearing Status: Full weight bearing Follow Up Care Test Results: Test results from this visit will be discussed in further detail at your follow-up appointment, if applicable. Discharge Plan Admission Admit Date/Time: 09/16/23 11:30 Primary Reason for Your Visit: shortness of breath, volume overload Attending Provider: Mike Hassan Primary Care Provider: Cortez Smith Consulting Providers: Jose Luis Lechuga; Justin Marinelli; Gaurav Albrecht; Raine Oconnor; Tobias Maria; Haider Bruce; Amado Her; Dane Eng; Judy Mixon NP; Suzette Ruiz; Angelina Parker Discharge Orders/Prescriptions Prescriptions: New gabapentin 300 mg Capsule 300 mg PO QHS Qty: 0 0RF gabapentin 100 mg Capsule 100 mg PO BID@1000,1600 Qty: 0 0RF Continued levothyroxine 150 mcg tablet 150 mcg PO DAILY@0600 atorvastatin 10 mg Tablet 10 mg PO QHS escitalopram oxalate 10 mg Tablet 10 mg PO DAILY fenofibrate nanocrystallized [Tricor] 48 mg Tablet 48 mg PO DAILY ropinirole 4 mg tablet 4 mg PO QHS Rx Instructions: administer 1-3 hours before bedtime Trulicity 0.75 mg/0.5 mL pen injector 0.75 mg SUBCUT WE omega 7-kog-xzf-fish oil [Fish Oil] 300-1,000 mg capsule 1 cap PO BID (DME) pen needle, diabetic [Easy Touch] 31 gauge x 1/4 needle MISCELLANEOUS sucralfate [Carafate] 1 gram tablet 1 g PO BID Qty: 60 1RF pantoprazole 40 mg tablet,delayed release (DR/EC) 40 mg PO BID Qty: 60 2RF acetaminophen 325 mg tablet 650 mg PO Q6H PRN (Reason: pain) difluprednate 0.05 % drops 1 drp ophthalmic (eye) 4X/DAY Rx Instructions: BOTH EYES- HAD SHOTS IN HER EYES W BLEEDING BEHIND THEM nystatin [Nystop] 100,000 unit/gram powder 1 applic TOPICAL BID Rx Instructions: APPLY TO GROIN AND UNDER BREASTS insulin glargine-yfgn 100 unit/mL (3 mL) Insulin Pen 13 unit subcut QHS Qty: 0 0RF insulin lispro [Humalog KwikPen Insulin] 100 unit/mL Insulin Pen 10 unit subcut TIDAC Qty: 0 0RF artificial tears(hypromellose) 0.3 % gel 1 drp EACH EYE Q2H PRN (Reason: dry eye(s)) (DME) FreeStyle Bandar 2 Sensor Kit MISCELLANEOUS Discontinued gabapentin 400 mg capsule 400 mg PO QHS furosemide 40 mg Tablet 40 mg PO DAILY Qty: 0 0RF No Action gabapentin 100 mg capsule 200 mg PO BID Patient Comments: Takes morning and afternoon Referrals / Follow Up: Cortez Smith DO [Primary Care Provider] - Lulu Luna SUPERVISOR JEWELRY DEPARTMENT, SUPERVISOR JEWELRY DEPARTMENT-C [Non-Staff] - Disposition Disposition (needs filled in before D/C Order can be placed): Long Term Facility
--- NOTE | 2023-09-25 13:47 | TREXTCAR_ITS ---
Diet Diet Order/Speech Therapy: 09/24/23 11:45 Diet: Renal - General Food consistency:: Mechanical (Minced/Moist) Liquid Consistency:: Regular/Thin Type of Dietary Supplement:: 120mL Nepro TID Is pt able to select menu?: Yes Fluid restriction:: 1500 mL Diet Comments: TOTAL FEED ONLY IF FULLY ALERT Routine Orders/Code Status O2 Frequency: Continuous Keep PO Greater than or Equal to (%): 88 Code Status: Full Code Wound(s) rt abdomen: Wound Type: Abrasion coccyx: Wound Type: Pressure Injury RT CHEST: Wound Type: Surgical Incision Therapies Weight Bearing: Full weight bearing Physical Therapy: Eval and Treat Occupational Therapy: Eval and Treat Problem/Diagnosis (1) ESRF (end stage renal failure): Status: Acute Code(s): N18.6 - End stage renal disease Plan Patient is a 63-year-old female who presented to [facility] ED on 09/16/2023 with worsening shortness of breath. Hospital course as noted below. Patient discharged to nursing home facility in stable condition on 09/24. 1. History of CKD stage V with progression to ESRD ? Nephrology followed. Presented w/ volume overload, resistant to diuretics with worsening creatinine. Received dialysis through right IJ temporary d ialysis catheter for majority of admissions. S/p hemodialysis on afternoon of 09/23, patient tolerated without issue. Most recent HD session was on 09/23. Patient will be on HD MWF schedule, has outpatient dialysis set up for her. 2. Acute on chronic hypoxic respiratory failure secondary to volume overload, resolved ? On 4 L of oxygen at baseline. Improved with volume removal with dialysis ses sions as noted above. Continue home bronchodilators. 3. Thrombocytopenia, improving ? Evaluated by oncology on 09/16, felt most likely drug-induced secondary to recent exposure to several antimicrobials as well as recently starting PPI. Platelet count improving, up to 93 on 09/21. Notably had a platelet count of 26 on initial 09/22 morning CBC, however repeat CBC drawn in blue tube with citrate showed platelet count of 100, presume initial sample was not accurate due to platelet clumping. Platelet count 106 on discharge. Recommend repeat CBC in 5- 7 days as noted below to ensure no significant drop. 4. Acute on chronic anemia ? GI following. EGD 09/18 showed benign-appearing esophageal stenosis which was dilated, as well as acute gastritis and erosive gastropathy with active bleeding which was treated with heater probe. Continue p.o. PPI twice daily. Hemoglobin stable ~8-9 for most of admission, last hemoglobin 7.9 on discharge. Recommend repeat CBC in 5-7 days as noted below to ensure no significant drop. 5. Intermittent lethargy, resolved ? Unclear etiology, suspected to be medication related. Patient was quite lethargic on exam on 09/21. Decreased home gabapentin dosing to 100 mg twice daily and 300 mg at night. Mentation much improved on 09/22. Remained stable for remainder of hospitalization. 6. Debility ? PT/OT/case management followed. Medically stable for discharge on 09/24, discharged to SNF in stable condition on 09/24. Chronic medical conditions: ? Super morbid obesity: BMI 51 on admit. Complicated hospital course, care, recovery and prognosis. ? Type 2 diabetes mellitus: A1c 7.6% on admit. Continue Lantus 13 units at night with sliding scale insulin with meals, adjust as needed. Okay to resume home regimen on discharge. ? Hypothyroidism: TSH 4.07 on admit. Continue home Synthroid. Total clinical time spent by myself addressing the patient's medical issues, reviewing all the data, and collaborating with patient's care team: 35 minutes. Allergies/Procedures Done in Hospital Allergies No Known Allergies Allergy (Verified 09/16/23 08:52) Procedures: Central line placement, Dialysis, EKG and - (chest x-ray x 4) Type of Care/Length of Stay Estimated LOS: Convalescent Care Less Than 30 days Type of Care Needed: Skilled Rehab Potential: Fair Prognosis: Fair Additional Orders/Day of Discharge H&P will serve as current which was dated: 09/16/23 Day of Discharge: 09/25/23 Dietary and Speech Recommendations Dietitian Recommendations/Changes: Will adjust diet to Renal with consistency as per [employer] REPAIR TECHNICIAN, currently pureed food/thin liquids. Monitor need to restrict carbohydrates. Initiate renal diet education as appropriate. Will add 120mL PO Nepro TID w/ meals as tolerated. Discharge Plan Admission Admit Date/Time: 09/16/23 11:30 Primary Reason for Your Visit: shortness of breath, volume overload Attending Provider: Mike Hassan Primary Care Provider: Cortez Smith Consulting Providers: Jose Luis Lechuga; Justin Marinelli; Gaurav Albrecht; Raine Oconnor; Tobias Maria; Haider Bruce; Amado Her; Dane Eng; Judy Mixon NP; Suzette Ruiz; Angelina Parker Discharge Orders/Prescriptions Prescriptions: New gabapentin 300 mg Capsule 300 mg PO QHS Qty: 0 0RF gabapentin 100 mg Capsule 100 mg PO BID@1000,1600 Qty: 0 0RF Continued levothyroxine 150 mcg tablet 150 mcg PO DAILY@0600 atorvastatin 10 mg Tablet 10 mg PO QHS escitalopram oxalate 10 mg Tablet 10 mg PO DAILY fenofibrate nanocrystallized [Tricor] 48 mg Tablet 48 mg PO DAILY ropinirole 4 mg tablet 4 mg PO QHS Rx Instructions: administer 1-3 hours before bedtime Trulicity 0.75 mg/0.5 mL pen injector 0.75 mg SUBCUT WE omega 8-isy-bgt-fish oil [Fish Oil] 300-1,000 mg capsule 1 cap PO BID (DME) pen needle, diabetic [Easy Touch] 31 gauge x 1/4 needle MISCELLANEOUS sucralfate [Carafate] 1 gram tablet 1 g PO BID Qty: 60 1RF pantoprazole 40 mg tablet,delayed release (DR/EC) 40 mg PO BID Qty: 60 2RF acetaminophen 325 mg tablet 650 mg PO Q6H PRN (Reason: pain) difluprednate 0.05 % drops 1 drp ophthalmic (eye) 4X/DAY Rx Instructions: BOTH EYES- HAD SHOTS IN HER EYES W BLEEDING BEHIND THEM nystatin [Nystop] 100,000 unit/gram powder 1 applic TOPICAL BID Rx Instructions: APPLY TO GROIN AND UNDER BREASTS insulin glargine-yfgn 100 unit/mL (3 mL) Insulin Pen 13 unit subcut QHS Qty: 0 0RF insulin lispro [Humalog KwikPen Insulin] 100 unit/mL Insulin Pen 10 unit subcut TIDAC Qty: 0 0RF artificial tears(hypromellose) 0.3 % gel 1 drp EACH EYE Q2H PRN (Reason: dry eye(s)) (DME) FreeStyle Bandar 2 Sensor Kit MISCELLANEOUS Discontinued gabapentin 400 mg capsule 400 mg PO QHS furosemide 40 mg Tablet 40 mg PO DAILY Qty: 0 0RF No Action gabapentin 100 mg capsule 200 mg PO BID Patient Comments: Takes morning and afternoon Referrals / Follow Up: Cortez Smith DO [Primary Care Provider] - Lulu Luna ENVIRONMENTAL PROTECTION OFFICER, ENVIRONMENTAL PROTECTION OFFICER-C [Non-Staff] - Disposition Disposition (needs filled in before D/C Order can be placed): Care Home Facility Charges/Coding Visit Charges Inpatient E&M: 36416 Disch Hosp >30min
--- NOTE | 2023-09-25 13:54 | PCM.DC.SUM ---
Providers Date of Admission: 09/16/23 Date of Discharge: 09/25/23 Primary Care Physician: Dr. Cortez Smith, Consultations 09/16/23 12:20 Consult: Nephrology Routine Consulting Provider: Jose Luis Lechuga Reason for Consult: fluid overload in the setting of worsening CKD EMERGENT Consult: No MD Notified: Yes Date Notified: 09/16/23 Time Notified: 11:32 Method of Notification: Text 09/16/23 14:11 Consult: Oncology/Hematology Routine Consulting Provider: [facility]) Reason for Consult: Thrombocytopenia EMERGENT Consult: No Notified: Yes Date Notified: 09/16/23 Time Notified: 14:12 Method of Notification: Text 09/17/23 10:59 Consult: General Surgery Routine Consulting Provider: Suzette Ruiz Reason for Consult: GASTON dialysis catheter EMERGENT Consult: No Notified: Yes Date Notified: 09/17/23 Time Notified: 10:59 Method of Notification: Verbal 09/18/23 07:48 Consult: Gastroenterology Routine Consulting Provider: [facility] Reason for Consult: acute on chronic anemia EMERGENT Consult: No Notified: Yes Date Notified: 09/18/23 Time Notified: 07:49 Method of Notification: Text Reason For Visit: ACUTE ON CHRONIC HEART FAILURE, WORSENING CKD Diagnosis Discharge Diagnosis (1) ESRF (end stage renal failure): Status: Acute Code(s): N18.6 - End stage renal disease Medications at Discharge Home Medications atorvastatin 10 mg tablet 10 mg PO QHS cholesterol 09/24/22 escitalopram oxalate 10 mg tablet 10 mg PO DAILY depression 09/24/22 fenofibrate nanocrystallized 48 mg tablet (Tricor) 48 mg PO DAILY cholesterol 09/24/22 gabapentin 100 mg capsule 200 mg PO BID PAIN 03/05/23 levothyroxine 150 mcg tablet 150 mcg PO DAILY@0600 THYROID 03/05/23 ropinirole 4 mg tablet 4 mg PO QHS restless legs 03/05/23 dulaglutide 0.75 mg/0.5 mL subcutaneous pen injector (Trulicity) 0.75 mg subcut WE DIABETES 04/14/23 omega 3-tkx-dok-fish oil 300 mg-1,000 mg capsule (Fish Oil) 1 cap PO BID VITAMIN 04/14/23 pen needle, diabetic 31 gauge x 1/4 (Easy Touch) 04/14/23 pantoprazole 40 mg tablet,delayed release 40 mg PO BID heartburn #60 tabs 05/08/23 sucralfate 1 gram tablet (Carafate) 1 g PO BID heartburn #60 tabs 05/08/23 acetaminophen 325 mg tablet 650 mg PO Q6H PRN pain 08/26/23 difluprednate 0.05 % eye drops 1 drp ophthalmic (eye) 4X/DAY bleeding behind eyes 08/26/23 nystatin 100,000 unit/gram topical powder (Nystop) 1 applic topical BID yeast 08/26/23 insulin glargine-yfgn 100 unit/mL (3 mL) subcutaneous pen 13 unit (0.13 mL) subcut QHS diabetes #0 mL 09/01/23 insulin lispro 100 unit/mL subcutaneous pen (Humalog KwikPen (U-100) Insulin) 10 unit (0.1 mL) subcut TIDAC diabetes #0 mL 09/01/23 artificial tears(hypromellose) 0.3 % eye gel 1 drp EACH EYE Q2H PRN dry eye(s) 09/07/23 flash glucose sensor (FreeStyle Bandar 2 Sensor kit) 09/16/23 gabapentin 100 mg capsule 100 mg PO BID@1000,1600 #0 caps 09/25/23 gabapentin 300 mg capsule 300 mg PO QHS #0 caps 09/25/23 Hospital Course Operations None Procedures Central line placement, Dialysis, EKG and - (Right chest tunneled HD catheter placement, chest x-ray x 4) Summary of Care Provided Minutes Spent on Discharge: 35 Hospital Course: Patient is a 63-year-old female who presented to [facility] ED on 09/16/2023 with worsening shortness of breath. Hospital course as noted below. Patient discharged to assisted facility in stable condition on 09/24. 1. History of CKD stage V with progression to ESRD ? Nephrology followed. Presented w/ volume overload, resistant to diuretics with worsening creatinine. Received dialysis through right IJ temporary dialysis catheter for majority of admissions. S/p hemodialysis on afternoon of 09/23, patient tolerated without issue. Most recent HD session was on 09/23. Patient will be on HD MWF schedule, has outpatient dialysis set up for her. 2. Acute on chronic hypoxic respiratory failure secondary to volume overload, resolved ? On 4 L of oxygen at baseline. Improved with volume removal with dialysis sessions as noted above. Continue home bronchodilators. 3. Thrombocytopenia, improving ? Evaluated by oncology on 09/16, felt most likely drug-induced secondary to recent exposure to several antimicrobials as well as recently starting PPI. Platelet count improving, up to 93 on 09/21. Notably had a platelet count of 26 on initial 09/22 morning CBC, however repeat CBC drawn in blue tube with citrate showed platelet count of 100, presume initial sample was not accurate due to platelet clumping. Platelet count 106 on discharge. Recommend repeat CBC in 5-7 days as noted below to ensure no significant drop. 4. Acute on chronic anemia ? GI following. EGD 09/18 showed benign-appearing esophageal stenosis which was dilated, as well as acute gastritis and erosive gastropathy with active bleeding which was treated with heater probe. Continue p.o. PPI twice daily. Hemoglobin stable ~8-9 for most of admission, last hemoglobin 7.9 on discharge. Recommend repeat CBC in 5-7 days as noted below to ensure no significant drop. 5. Intermittent lethargy, resolved ? Unclear etiology, suspected to be medication related. Patient was quite lethargic on exam on 09/21. Decreased home gabapentin dosing to 100 mg twice daily and 300 mg at night. Mentation much improved on 09/22. Remained stable for remainder of hospitalization. 6. Debility ? PT/OT/case management followed. Medically stable for discharge on 09/24, discharged to SNF in stable condition on 09/24. Chronic medical conditions: ? Super morbid obesity: BMI 51 on admit. Complicated hospital course, care, recovery and prognosis. ? Type 2 diabetes mellitus: A1c 7.6% on admit. Continue Lantus 13 units at night with sliding scale insulin with meals, adjust as needed. Okay to resume home regimen on discharge. ? Hypothyroidism: TSH 4.07 on admit. Continue home Synthroid. Total clinical time spent by myself addressing the patient's medical issues, reviewing all the data, and collaborating with patient's care team: 35 minutes. Physical Exam Const alert and no apparent distress Constitutional Narrative: Elderly female, morbidly obese, laying back in bed comfortably, fatigued but otherwise much more awake and alert today than yesterday, conversing normally, in no acute distress. General Appearance: cooperative and comfortable Orientation / Consciousness: lethargic HEENT normocephalic, head/scalp atraumatic, hearing grossly normal bilaterally and nasal mucous membranes and turbinates normal Eyes PERRL, EOMs intact bilaterally and conjunctivae normal Neck full ROM Neck Narrative: Temporary right IJ catheter removed, bandage over site appears clean and dry, does have some bruising and tenderness to palpation noted around previous catheter site. Chest inspection of chest normal Chest Narrative: Tunneled HD catheter line in place, site appears clean and dry. Resp normal respiratory effort and no use of accessory muscles Resp Narrative: Mildly decreased breath sounds throughout bilaterally. No wheezing or crackles noted. Breathing comfortably on 2 L nasal cannula. Cardio regular rate, regular rhythm, no murmurs and peripheral pulses 2+ throughout GI normal to inspection, nondistended, normoactive bowel sounds, soft to palpation, non-tender and non-distended Back/Spine normal ROM Extremity normal to inspection Extremity Narrative: +1-2 bilateral nonpitting lower extremity edema, chronic. Skin no rashes or lesions noted Neuro no focal motor deficits and no sensory deficits noted Speech: speech normal Psych affect normal Weight / BMI Weight Weight: 122 kg Body Mass Index (BMI) 44.8 ABG / Lab / Microbiology Data 09/25/23 06:27 09/25/23 06:27 Laboratory: Laboratory Results - last 24 hr 09/25/23 06:16: POC Glucose 112 H 09/25/23 06:27: WBC 3.7 L, RBC 2.88 L, Hgb 7.9 L, Hct 25.3 L, MCV 87.8, MCH 27.4, MCHC 31.2 L, RDW Std Deviation 47.6 H, RDW Coeff of Vlad 14.8 H, Plt Count 60 L, MPV 12.6 H, Sodium 145, Potassium 3.3 L, Chloride 108 H, Carbon Dioxide 30.0, Anion Gap 7, BUN 23 H, Creatinine 1.56 H, Estim Creat Clear Calc 47.11, Est GFR (MDRD) Af Amer 43 L, Est GFR (MDRD) Non-Af 35 L, BUN/Creatinine Ratio 14.7, Glucose 114 H, Calcium 8.3 L 09/25/23 09:54: POC Glucose 111 H Microbiology: Microbiology 09/16/23 09:20 Blood Culture (Wb) - Left Hand Blood Culture - Final No growth in 5 days. 09/16/23 09:20 Blood Culture (Wb) #2 - Anticubital Right Blood Culture - Final No growth in 5 days. 09/16/23 09:20 Mucosa - Nose SARS-CoV-2, Influenza & RSV (PCR) - Final D/C Instructions Discharge Diet: No restrictions Weight Bearing Status: Full weight bearing Meaningful Use Info Meaningful Use Diagnoses (Choose all that apply): None applicable Discharge Plan Admission Admit Date/Time: 09/16/23 11:30 Primary Reason for Your Visit: shortness of breath, volume overload Attending Provider: Mike Hassan Primary Care Provider: Cortez Smith Consulting Providers: Jose Luis Lechuga; Justin Marinelli; Gaurav Albrecht; Raine Oconnor; Tobias Maria; Haider Bruce; Amado Her; Dane Eng; Judy Mixon NP; Suzette Ruiz; Angelina Parker Discharge Orders/Prescriptions Prescriptions: New gabapentin 300 mg Capsule 300 mg PO QHS Qty: 0 0RF gabapentin 100 mg Capsule 100 mg PO BID@1000,1600 Qty: 0 0RF Continued levothyroxine 150 mcg tablet 150 mcg PO DAILY@0600 atorvastatin 10 mg Tablet 10 mg PO QHS escitalopram oxalate 10 mg Tablet 10 mg PO DAILY fenofibrate nanocrystallized [Tricor] 48 mg Tablet 48 mg PO DAILY ropinirole 4 mg tablet 4 mg PO QHS Rx Instructions: administer 1-3 hours before bedtime Trulicity 0.75 mg/0.5 mL pen injector 0.75 mg SUBCUT WE omega 3-tyj-lui-fish oil [Fish Oil] 300-1,000 mg capsule 1 cap PO BID (DME) pen needle, diabetic [Easy Touch] 31 gauge x 1/4 needle MISCELLANEOUS sucralfate [Carafate] 1 gram tablet 1 g PO BID Qty: 60 1RF pantoprazole 40 mg tablet,delayed release (DR/EC) 40 mg PO BID Qty: 60 2RF acetaminophen 325 mg tablet 650 mg PO Q6H PRN (Reason: pain) difluprednate 0.05 % drops 1 drp ophthalmic (eye) 4X/DAY Rx Instructions: BOTH EYES- HAD SHOTS IN HER EYES W BLEEDING BEHIND THEM nystatin [Nystop] 100,000 unit/gram powder 1 applic TOPICAL BID Rx Instructions: APPLY TO GROIN AND UNDER BREASTS insulin glargine-yfgn 100 unit/mL (3 mL) Insulin Pen 13 unit subcut QHS Qty: 0 0RF insulin lispro [Humalog KwikPen Insulin] 100 unit/mL Insulin Pen 10 unit subcut TIDAC Qty: 0 0RF artificial tears(hypromellose) 0.3 % gel 1 drp EACH EYE Q2H PRN (Reason: dry eye(s)) (DME) FreeStyle Bandar 2 Sensor Kit MISCELLANEOUS Discontinued gabapentin 400 mg capsule 400 mg PO QHS furosemide 40 mg Tablet 40 mg PO DAILY Qty: 0 0RF No Action gabapentin 100 mg capsule 200 mg PO BID Patient Comments: Takes morning and afternoon Referrals / Follow Up: Cortez Smith DO [Primary Care Provider] - Lulu Luna BOARD DESIGN ENGINEER, BOARD DESIGN ENGINEER-C [Non-Staff] - Disposition Disposition (needs filled in before D/C Order can be placed): Care Home Facility Charges/Coding Visit Charges Inpatient E&M: 87709 Disch Hosp >30min
[2023-09-25 13:57] VITALS: BP 97/62; PULSE 70; RESP 18; TEMP 36.7; O2SAT 98
--- NOTE | 2023-09-25 14:22 | CASEMGMT ---
Patient was approved to go to [facility]. SW notified physician. Plan: d/c back to [facility] under skilled level of care. Physicians will transport patient. Varsha BELTRAN
--- NOTE | 2023-09-25 14:49 | PHA.DC.MR.R ---
Pharmacy [place] Med Reconciliation Pharmacy Service has performed discharge medication reconciliation for this patient upon transfer to [facility] The patient's discharge medication list was reviewed for discrepancies and discrepancies were resolved. Medications at Discharge Home Medications atorvastatin 10 mg tablet 10 mg PO QHS cholesterol 09/24/22 escitalopram oxalate 10 mg tablet 10 mg PO DAILY depression 09/24/22 fenofibrate nanocrystallized 48 mg tablet (Tricor) 48 mg PO DAILY cholesterol 09/24/22 gabapentin 100 mg capsule 200 mg PO BID PAIN 03/05/23 levothyroxine 150 mcg tablet 150 mcg PO DAILY@0600 THYROID 03/05/23 ropinirole 4 mg tablet 4 mg PO QHS restless legs 03/05/23 dulaglutide 0.75 mg/0.5 mL subcutaneous pen injector (Trulicity) 0.75 mg subcut WE DIABETES 04/14/23 omega 1-kwp-uub-fish oil 300 mg-1,000 mg capsule (Fish Oil) 1 cap PO BID VITAMIN 04/14/23 pen needle, diabetic 31 gauge x 1/4 (Easy Touch) 04/14/23 pantoprazole 40 mg tablet,delayed release 40 mg PO BID heartburn #60 tabs 05/08/23 sucralfate 1 gram tablet (Carafate) 1 g PO BID heartburn #60 tabs 05/08/23 acetaminophen 325 mg tablet 650 mg PO Q6H PRN pain 08/26/23 difluprednate 0.05 % eye drops 1 drp ophthalmic (eye) 4X/DAY bleeding behind eyes 08/26/23 nystatin 100,000 unit/gram topical powder (Nystop) 1 applic topical BID yeast 08/26/23 insulin glargine-yfgn 100 unit/mL (3 mL) subcutaneous pen 13 unit (0.13 mL) subcut QHS diabetes #0 mL 09/01/23 insulin lispro 100 unit/mL subcutaneous pen (Humalog KwikPen (U-100) Insulin) 10 unit (0.1 mL) subcut TIDAC diabetes #0 mL 09/01/23 artificial tears(hypromellose) 0.3 % eye gel 1 drp EACH EYE Q2H PRN dry eye(s) 09/07/23 flash glucose sensor (FreeStyle Bandar 2 Sensor kit) 09/16/23 gabapentin 100 mg capsule 100 mg PO BID@1000,1600 #0 caps 09/25/23 gabapentin 300 mg capsule 300 mg PO QHS #0 caps 09/25/23
[2023-09-25 15:00] VITALS: BP 103/56; PULSE 64; RESP 17; TEMP 36.4; O2SAT 99
--- NOTE | 2023-09-25 15:20 | CASEMGMT ---
Discharge Planning Discharge orders, signed med list, and transport time sent to [facility] via [facility]. Physicians will transport patient by wheelchair at 5p. Nursing, SW, patient, and her daughter updated. Louise King, Discharge Planning Asst.
--- NOTE | 2023-09-25 16:00 | NURSING ---
Left message at [facility] for return call to give report.
[2023-09-25 16:48] LABS: Bedside Glucose 119 mg/dL (74-106)
--- NOTE | 2023-09-25 19:32 | PN.RENAL_ITS ---
Subjective Subjective no new events Objective Data Objective Data Vital Signs: Vital Signs Temp Pulse Resp BP Pulse Ox O2 Del Method O2 Flow Rate 97.6 F L 64 17 103/56 L 99 Nasal Cannula 2 09/25/23 15:00 09/25/23 15:00 09/25/23 15:00 09/25/23 15:00 09/25/23 15:00 09/25/23 15:00 09/25/23 15:00 FiO2 30 09/23/23 05:21 Oxygen Flow Rate (L/min) 2 Oxygen Delivery Method Nasal Cannula Weight: 122 kg Body Mass Index (BMI) 44.8 Intake & Output: Intake and Output for Last 24 Hours 09/23/23 09/24/23 09/25/23 23:59 23:59 23:59 Intake Total 100 / 100 1654.5 / 1654.5 100 / 100 Output Total 2550 / 2550 4300 / 4300 100 / 100 Balance -2450 / -2450 -2645.5 / -2645.5 0 / 0 Lab / Micro Data 09/25/23 06:27 09/25/23 06:27 Labs: Laboratory Results - last 24 hr 09/25/23 06:16: POC Glucose 112 H 09/25/23 06:27: WBC 3.7 L, RBC 2.88 L, Hgb 7.9 L, Hct 25.3 L, MCV 87.8, MCH 27.4, MCHC 31.2 L, RDW Std Deviation 47.6 H, RDW Coeff of Vlad 14.8 H, Plt Count 60 L, MPV 12.6 H, Sodium 145, Potassium 3.3 L, Chloride 108 H, Carbon Dioxide 30.0, Anion Gap 7, BUN 23 H, Creatinine 1.56 H, Estim Creat Clear Calc 47.11, Est GFR (MDRD) Af Amer 43 L, Est GFR (MDRD) Non-Af 35 L, BUN/Creatinine Ratio 14.7, Glucose 114 H, Calcium 8.3 L 09/25/23 09:54: POC Glucose 111 H 09/25/23 16:26: POC Glucose 119 H Micro: Microbiology 09/16/23 09:20 Blood Culture (Wb) - Left Hand Blood Culture - Final No growth in 5 days. 09/16/23 09:20 Blood Culture (Wb) #2 - Anticubital Right Blood Culture - Final No growth in 5 days. 09/16/23 09:20 Mucosa - Nose SARS-CoV-2, Influenza & RSV (PCR) - Final Physical Exam Narrative no obvious distress s1s2 no murmurs lungs rales anteriorly and posteriorly. On oxygen abdomen soft, non tender edema b/l legs Assessment & Plan Assessment/Plan (1) GASTON (acute kidney injury): PLAN: Baseline creatinine was around 2.0, sustained GASTON during last 2 previous admissions. Serologic workup negative. Obstructive workup negative. Massive proteinuria of 10 g. Presumably this is diabetes related. - hypervolemic GASTON superimposed on CKD: SCr over past few weeks 3.6-4 with mild uremia and fluid overload. Started dialysis, Symptomatically better. - Thrombocytopenia. Previous workup showed normal LDH and haptoglobin, unlikely HUS or any form of TMA. Hematology has been consulted and opinion is multi- factoral related to Zyvox, sepsis, low probability of HIT, most likely drug induced. Zyvox was discontinued last admission. Platelets are better dc today. possible some renal function present. will reevaluate as outpatient
== END 2023-09-25 16:57 | disposition skilled nursing facility (03) | DRG 291 ==
LOC: ED 10:40 → PCU 11:40
PROVIDERS: Anesthesiology; Emergency Medicine; Internal Medicine; Internal Medicine Gastroenterology; Internal Medicine Nephrology; Nurse Practitioner Adult Health; Nurse Practitioner Family; Surgery; Admitting Provider Student in an Organized Health Care Education/Training Program; Emergency Provider Emergency Medicine; PCP Internal Medicine; Visit Provider Hospitalist
PROC: 0DJ08ZZ Inspection of Upper Intestinal Tract, Via Natural or Artificial Opening Endoscopic (ICD-10-PCS; CPT 43235; principal; 2023-09-19 11:25)
PROC: 0JH63XZ Insertion of Tunneled Vascular Access Device into Chest Subcutaneous Tissue and Fascia, Percutaneous Approach (ICD-10-PCS; principal; 2023-09-24 10:00)
DX: I13.2 Hypertensive heart and chronic kidney disease with heart failure and with stage 5 chronic kidney disease, or end stage renal disease (principal); J96.21 Acute and chronic respiratory failure with hypoxia; K29.71 Gastritis, unspecified, with bleeding; N18.6 End stage renal disease; I50.33 Acute on chronic diastolic (congestive) heart failure; Z68.43 Body mass index [BMI] 50.0-59.9, adult; D69.6 Thrombocytopenia, unspecified; D63.1 Anemia in chronic kidney disease; K22.2 Esophageal obstruction; E11.22 Type 2 diabetes mellitus with diabetic chronic kidney disease; E11.42 Type 2 diabetes mellitus with diabetic polyneuropathy; J44.9 Chronic obstructive pulmonary disease, unspecified; E66.01 Morbid (severe) obesity due to excess calories; Z79.4 Long term (current) use of insulin; Z99.2 Dependence on renal dialysis; E03.9 Hypothyroidism, unspecified; E78.5 Hyperlipidemia, unspecified; K29.80 Duodenitis without bleeding; K29.00 Acute gastritis without bleeding; E87.70 Fluid overload, unspecified; D64.9 Anemia, unspecified; R53.81 Other malaise; Z87.11 Personal history of peptic ulcer disease
CPT/HCPCS: 36415; 36600; 71045; 76000; 80048; 82607; 82728; 82746; 82803; 82962; 83036; 83540; 83550; 83605; 83880; 84443; 84484; 85025; 85027; 85610; 85730; 86022; 86850; 86900; 86901; 86920; 86965; 87040; 87340; 87631; 88305; 88342; 90937; 92526; 92610; 93005; 94002; 94003; 94640; 94668; 94762; 97110; 97162; 97166; 97530; 97535; 97802; 97803; 99252; 99285; J7030; J7040; J7050; P9016; P9035; A4216; C1750; C1752; G0257; G0463; J1940; J2405

== ENCOUNTER 2023-12-31 12:26 | Emergency (ER) | payer MEDICARE, MEDICAID, SELFPAY ==
[2023-12-31] VITALS (18 sets, daily range): BP systolic 98–159; BP diastolic 41–75; PULSE 61–100; RESP 13–18; TEMP 36.6–36.8; O2SAT 91–100
--- NOTE | 2023-12-31 12:37 | EKG12_ITS ---
Test Reason : Blood Pressure : / mmHG Vent. Rate : 074 BPM Atrial Rate : 074 BPM P-R Int : 180 ms QRS Dur : 076 ms QT Int : 438 ms P-R-T Axes : 011 -19 036 degrees QTc Int : 486 ms Normal sinus rhythm NS ST & Abnormal ECG BASELINE ARTIFACT Confirmed by ARMANDO KAPADIA, GARCIA ([id number]), associate editor ROSE KAUFMAN ([id number]) on 01/05/2024 11:43:49 AM Referred By: NAKITA Confirmed By:GARCIA ROBERTS MD
[2023-12-31 12:47] LABS: Absolute Lymphocyte Count 0.94 X10^3/uL (0.83-4.51); Absolute Neutrophil Count 2.2 X10^3/uL (2.0-7.7); Basophil# 0.01 X10^3/uL; Basophil% 0.3 % (0-1); Eosinophil# 0.04 X10^3/uL; Eosinophils% 1.1 % (0-5); Hematocrit 28.4 % (37-47); Hemoglobin 8.9 g/dL (12.0-15.0); Lymphocyte # 0.94 X10^3/ul (0.83-4.51); Lymphocyte % 25.1 % (19-41); Mean Corp Hgb Conc 31.3 g/dL (32-36); Mean Corpuscular Hgb 27.7 pg (27.0-32.0); Mean Corpuscular Volume 88.5 fL (81-99); Mean Platelet Vol. 10.6 fl (6.2-12.0); Monocyte# 0.46 X10^3/uL; Monocyte% 12.3 % (0-10); NRBC Flagged by Analyzer 0 % (0-5); Neutrophil # 2.23 X10^3/uL (2.7-7.7); Neutrophil % 59.6 % (47-70); POSITIVE COUNT YES; Platelet Count 94 K/mm3 (150-450); RBC Distribution Width CV 17.5 % (11.6-14.6); Red Blood Count 3.21 M/mm3 (4.2-5.4); White Blood Count 3.7 K/mm3 (4.4-11.0)
--- NOTE | 2023-12-31 13:00 | RAD_ITS ---
STUDY: X-RAY CHEST REASON FOR EXAM: Female, 63 years old. Chest pain TECHNIQUE: Single AP portable view of the chest. COMPARISON: Comparison is made with prior study dated September 24, 2023. FINDINGS: A right-sided double catheter seen with the tip at the junction of the superior vena cava and right atrium. EKG electrodes are seen. The lungs are clear and expanded. There is no demonstrated pleural abnormality. Normal size heart. Normal mediastinum and rebekah. Normal visualized pulmonary arteries. Normal visualized aortic arch and descending thoracic aorta. Normal visualized thoracic spine. Normal visualized ribs, clavicles, and shoulders. There is no demonstrated abnormality of the visualized soft tissue structures of the upper abdomen. RAD/Chest 1 View (Portable) IMPRESSION: Normal x-ray examination of the chest. Electronically Signed: Maximo Obrien MD at 13:16 EDT ,
[2023-12-31 13:15] LABS: Anion Gap 8 (5-15); BUN 54 mg/dL (7-18); Calcium,Total 9.3 mg/dL (8.5-10.1); Chloride 100 mmol/L (98-107); Creatinine, Serum 4.14 mg/dL (0.55-1.02); EST Glomerular Filtration Rate 11 mL/min (>60); Est Glom Filt Rate - Afr Amer 14 mL/min (>60); Glucose 176 mg/dL (74-106); Potassium 3.8 mmol/L (3.5-5.1); Sodium Level 135 mmol/L (136-145); Troponin-I HS (w/2H Reflex) 9 pg/mL (3.0-54.0)
[2023-12-31 14:42] LABS: Reflex Troponin-HS? (from REC) Y
--- NOTE | 2023-12-31 15:08 | ED.VIS.CHEST ---
HPI History of Present Illness Chief Complaint: Chest Pain Narrative Narrative: 63-year-old female presents from dialysis with complaint of chest pain. She complains of a pressure in the center of her chest. She denies any nausea or vomiting but states she feels shaky. She states she usually gets dialysis Friday, Friday, and Friday. She felt like this prior to dialysis and when she got there, told them that she was having chest pain and pressure, so she did not receive any of her dialysis and they sent her to the emergency department for evaluation. She states her last dialysis was 2 days ago. She denies any fevers or chills, no exacerbating or alleviating factors. [facility] Medical History Acute on chronic anemia CKD (chronic kidney disease) Hypoxemia CHF (congestive heart failure) Respiratory failure with hypoxia and hypercapnia Diabetes Current use of insulin Restless legs COPD (chronic obstructive pulmonary disease) History of stress test Irregular heartbeat MSSA bacteremia Congestive heart failure Gastroparesis Anxiety CPAP (continuous positive airway pressure) dependence Sleep apnea On home oxygen therapy Chronic kidney disease Anemia Chest pain (HFpEF) heart failure with preserved ejection fraction Pleural effusion, left Pulmonary edema Chronic kidney disease Malaise History of fever GASTON (acute kidney injury) Retinal hemorrhage Lower extremity edema History of renal insufficiency History of diabetes mellitus Diabetes mellitus with diabetic polyneuropathy SACHIN (obstructive sleep apnea) Chronic acquired lymphedema Chronic anemia CKD (chronic kidney disease), stage III HLD (hyperlipidemia) HTN (hypertension) Morbid obesity Diabetes mellitus, type 2 Anxiety and depression Hypoxia Hypothyroidism Home Medications ?Medication ?Instructions ?Recorded ?Last Taken ?Type atorvastatin 10 mg tablet 10 mg PO QHS cholesterol 09/24/22 04/13/23 History fenofibrate nanocrystallized 48 mg 48 mg PO DAILY cholesterol 09/24/22 04/13/23 History tablet (Tricor) gabapentin 100 mg capsule 200 mg PO BID PAIN 03/05/23 04/13/23 History levothyroxine 150 mcg tablet 150 mcg PO DAILY@0600 THYROID 03/05/23 Unknown History ropinirole 4 mg tablet 4 mg PO QHS restless legs 03/05/23 05/01/23 History pen needle, diabetic 31 gauge x 04/14/23 Unknown History 1/ (Easy Touch) pantoprazole 40 mg tablet,delayed 40 mg PO BID heartburn #60 tabs 10/19/23 Unknown Rx release sucralfate 1 gram tablet (Carafate) 1 g PO BID heartburn #60 tabs 05/08/23 Unknown Rx acetaminophen 325 mg tablet 650 mg PO Q6H PRN pain 08/26/23 Unknown History difluprednate 0.05 % eye drops 1 drp ophthalmic (eye) 4X/DAY 08/26/23 Unknown History bleeding behind eyes nystatin 100,000 unit/gram topical 1 applic topical BID yeast 08/26/23 Unknown History powder (Nystop) insulin glargine-yfgn 100 unit/mL 13 unit (0.13 mL) subcut QHS 09/01/23 Unknown Rx (3 mL) subcutaneous pen diabetes #0 mL insulin lispro 100 unit/mL 10 unit (0.1 mL) subcut TIDAC 09/01/23 Unknown Rx subcutaneous pen (Humalog KwikPen diabetes #0 mL (U-100) Insulin) artificial tears(hypromellose) 0.3 1 drp EACH EYE Q2H PRN dry eye(s) 09/07/23 Unknown History % eye gel flash glucose sensor (FreeStyle 09/16/23 Unknown History Bandar 2 Sensor kit) gabapentin 100 mg capsule 100 mg PO BID@1000,1600 #0 caps 09/25/23 Unknown Rx gabapentin 300 mg capsule 300 mg PO QHS #0 caps 09/25/23 Unknown Rx fenofibrate micronized 67 mg PO 12/31/23 Unknown History capsule midodrine 10 mg tablet PO 12/31/23 Unknown History sennosides 8.6 mg-docusate sodium 2 tab-cap PO DAILY PRN constipation 12/31/23 Unknown History 50 mg tablet (2-in-1 Laxative) zinc sulfate 50 mg zinc (220 mg) 50 mg PO DAILY 12/31/23 Unknown History tablet Allergy/AdvReac Type Severity Reaction Status Date / Time No Known Allergies Allergy Verified 09/16/23 08:52 Family History Mother Heart disease Hypertension Diabetes Father Prostate cancer Surgical History H/O cataract removal with insertion of prosthetic lens History of surgery on lower extremity History of cholecystectomy Social History [facility] Smoking Status: Never smoker alcohol intake: never substance use type: does not use ROS ROS ED ROS Narrative Constitutional: No fever, no chills. Feelings of shakiness. HEENT: No sore throat. No neck pain. No loss of vision. No rhinorrhea. Cardiovascular: Positive midsternal chest pressure/chest pain. No palpitations. No pedal edema. Respiratory: No cough, no shortness of breath. Abdominal: No abdominal pain. No nausea. No vomiting. Genitourinary: No dysuria. No hematuria. Musculoskeletal: No myalgias. No arthralgias. Neurologic: No headaches. No dizziness. No lightheadedness. Skin: No rash. No change in color. Psychiatric: No depression. No anxiety. EXAM Physical Exam Narrative Exam Narrative: Afebrile. Vital signs noted. HEENT: Normocephalic. Atraumatic. PERRL, EOMI. Neck soft and supple. No point tenderness or step off. Cardiovascular: Regular rate and rhythm. No murmurs, rubs, or gallops appreciated. Respiratory: No tachypnea. Lungs clear to auscultation bilaterally. Gastrointestinal: Abdomen soft, nontender, with normoactive bowel sounds. No rebound or guarding. Neurological: Awake. Alert. Nonfocal, nonlateralizing. Skin: No rash. Normal color. No pallor. Musculoskeletal: No pedal edema. Full range of motion extremities. Const Vital Signs: 12/31/23 12:28 12/31/23 12:30 12/31/23 12:32 Temperature 97.8 F Temperature Source Temporal Pulse Rate 75 Respiratory Rate 17 Respiratory Effort Normal Blood Pressure 112/60 Blood Pressure Mean 77 Pulse Ox 100 Oxygen Delivery Method Room Air 12/31/23 13:06 12/31/23 13:32 12/31/23 14:00 Temperature Temperature Source Pulse Rate 69 72 Respiratory Rate 13 15 Respiratory Effort Blood Pressure 100/41 L 104/46 L Blood Pressure Mean 60 65 Pulse Ox 94 Oxygen Delivery Method Room Air 12/31/23 15:00 Temperature Temperature Source Pulse Rate 100 Respiratory Rate 15 Respiratory Effort Blood Pressure 126/66 H Blood Pressure Mean 86 Pulse Ox 97 Oxygen Delivery Method MDM MDM MDM Narrative Medical decision making narrative: In the differential is ACS versus pneumonia versus pneumothorax. History and physical does not support the latter 2 diagnoses. Comprehensive workup was pursued. EKG was obtained and interpreted by myself independently as normal sinus rhythm at 74 bpm without ectopy or acute ST changes. No STEMI. I reviewed her laboratory work and she is neutropenic with a WBC count of 3.7 but this is a chronic finding. Additionally, she has a chronic anemia and her hemoglobin is 8.9, platelet count low at 94. This is chronic thrombocytopenia, and additionally it has been as low as in the 20s. I do not feel she needs emergent platelet transfusion. Review of her electrolyte panel shows sodium 135 with a normal potassium of 3.8, BUN elevated at 54 and creatinine is elevated 4.14 consistent with her end-stage renal disease. Glucose is appropriately elevated at 176 with a normal anion gap of 8. Initial high-sensitivity troponin is 9. Her chest x-ray in 1 view interpreted by myself independently shows no evidence of pneumothorax or pneumonia. I reviewed the radiology report which confirms my independent interpretation. Upon repeat examination, she is resting comfortably. I am not sure as to the cause of her shakiness, but there may be some anxiety component related. 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 Weir, who agrees with outpatient dialysis. He will either arrange for her to be done tomorrow, or it may be able to wait until Friday as she has a normal electrolyte panel currently. As well as her second HST is negative, I feel [facility] Patient will be signed out to the oncoming physician, Dr. Kai Bonilla to check the repeat/second HST at the 2-hour claudio and make final disposition on this patient which I anticipate will be discharged. She is in stable condition. Lab Data Attestation: I reviewed the patient's lab results. Labs: Laboratory Results - last 24 hr 12/31/23 12:09 WBC 3.7 L RBC 3.21 L Hgb 8.9 L Hct 28.4 L MCV 88.5 MCH 27.7 MCHC 31.3 L RDW Std Deviation 56.0 H RDW Coeff of Vlad 17.5 H Plt Count 94 L MPV 10.6 Immature Gran % (Auto) 1.600 H Neut % (Auto) 59.6 Lymph % (Auto) 25.1 Miner % (Auto) 12.3 H Eos % (Auto) 1.1 Baso % (Auto) 0.3 Absolute Neuts (auto) 2.2 Absolute Lymphs (auto) 0.94 Nucleated RBC % 0 Sodium 135 L Potassium 3.8 Chloride 100 Carbon Dioxide 27.0 Anion Gap 8 BUN 54 H Creatinine 4.14 H Est GFR (MDRD) Af Amer 14 L Est GFR (MDRD) Non-Af 11 L BUN/Creatinine Ratio 13.0 Glucose 176 H Calcium 9.3 Troponin I High Sens 9 Radiography Diagnostic Testing: Clinical Impression(s) from Imaging Studies Chest X-Ray 12/31/23 13:00 IMPRESSION: Normal x-ray examination of the chest. Electronically Signed: Maximo Obrien MD at 13:16 EDT , Discharge Plan Triage Chief Complaint: Chest Pain ED Provider: Edgardo Ernst Dx/Rx/DC Orders Clinical Impression: Chest pain, Thrombocytopenia, ESRF (end stage renal failure), Shakiness Instructions: Diabetes and Kidney Disease, ED Chest Pain, Uncertain Cause Prescriptions: No Action levothyroxine 150 mcg tablet 150 mcg PO DAILY@0600 atorvastatin 10 mg Tablet 10 mg PO QHS fenofibrate nanocrystallized [Tricor] 48 mg Tablet 48 mg PO DAILY gabapentin 100 mg capsule 200 mg PO BID Patient Comments: Takes morning and afternoon ropinirole 4 mg tablet 4 mg PO QHS Rx Instructions: administer 1-3 hours before bedtime (DME) pen needle, diabetic [Easy Touch] 31 gauge x 1/4 needle MISCELLANEOUS sucralfate [Carafate] 1 gram tablet 1 g PO BID Qty: 60 1RF pantoprazole 40 mg tablet,delayed release (DR/EC) 40 mg PO BID Qty: 60 2RF acetaminophen 325 mg tablet 650 mg PO Q6H PRN (Reason: pain) difluprednate 0.05 % drops 1 drp ophthalmic (eye) 4X/DAY Rx Instructions: BOTH EYES- HAD SHOTS IN HER EYES W BLEEDING BEHIND THEM nystatin [Nystop] 100,000 unit/gram powder 1 applic TOPICAL BID Rx Instructions: APPLY TO GROIN AND UNDER BREASTS insulin glargine-yfgn 100 unit/mL (3 mL) Insulin Pen 13 unit subcut QHS Qty: 0 0RF insulin lispro [Humalog KwikPen Insulin] 100 unit/mL Insulin Pen 10 unit subcut TIDAC Qty: 0 0RF artificial tears(hypromellose) 0.3 % gel 1 drp EACH EYE Q2H PRN (Reason: dry eye(s)) fenofibrate micronized 67 mg capsule PO midodrine 10 mg tablet PO sennosides-docusate sodium [2-in-1 Laxative] 8.6-50 mg tablet 2 tab-cap PO DAILY PRN (Reason: constipation) zinc sulfate 50 mg zinc (220 mg) tablet 50 mg PO DAILY (DME) FreeStyle Bandar 2 Sensor Kit MISCELLANEOUS gabapentin 300 mg Capsule 300 mg PO QHS Qty: 0 0RF gabapentin 100 mg Capsule 100 mg PO BID@1000,1600 Qty: 0 0RF Primary Care Provider: Cortez Smith Referrals: Cortez Smith DO [Primary Care Provider] - Activity Restrictions/Additional Instructions: Your geothermal powerplant mechanic helper has been contacted. He may arrange for you to have your dialysis tomorrow as an outpatient. Print Language: Pashto Disposition Disposition: Home, Self Care
[2023-12-31 16:59] LABS: Troponin-I HS 8 pg/mL (3.0-54.0)
[2023-12-31] MEDS: Acetaminophen 500 MG Tablet 1000 MG PO (17:57)
[2023-12-31] MEDS: 0.9% Normal Saline (500mL Bag) 500 ML 999 ML IV (17:58)
== END 2023-12-31 21:45 | disposition skilled nursing facility (03) ==
PROVIDERS: Emergency Provider Emergency Medicine; PCP Internal Medicine; Visit Provider Emergency Medicine
DX: R07.9 Chest pain, unspecified (principal); I13.2 Hypertensive heart and chronic kidney disease with heart failure and with stage 5 chronic kidney disease, or end stage renal disease; N18.6 End stage renal disease; I50.30 Unspecified diastolic (congestive) heart failure; J44.9 Chronic obstructive pulmonary disease, unspecified; E11.22 Type 2 diabetes mellitus with diabetic chronic kidney disease; Z79.4 Long term (current) use of insulin; Z99.2 Dependence on renal dialysis; G47.33 Obstructive sleep apnea (adult) (pediatric); Z99.89 Dependence on other enabling machines and devices; Z79.899 Other long term (current) drug therapy; E03.9 Hypothyroidism, unspecified; Z90.49 Acquired absence of other specified parts of digestive tract
CPT/HCPCS: 71045; 80048; 84484; 85025; 93005; 96360; 99285; J7030; J7040; A4216

== ENCOUNTER 2024-01-07 08:15 | Inpatient (IN) | payer MEDICARE, MEDICAID, SELFPAY ==
[2024-01-07] VITALS (44 sets, daily range): BP systolic 69–117; BP diastolic 27–95; PULSE 47–88; RESP 10–26; TEMP 32.3–36.6; O2SAT 72–100; BMI 38.2
--- NOTE | 2024-01-07 08:19 | NURSING ---
STROKE ALERT CALLED 12 MIN PRIOR TO ARRIVAL [id number]
--- NOTE | 2024-01-07 08:23 | EKG12_ITS ---
Test Reason : NEURO Blood Pressure : / mmHG Vent. Rate : 060 BPM Atrial Rate : 060 BPM P-R Int : 256 ms QRS Dur : 094 ms QT Int : 468 ms P-R-T Axes : 066 -21 125 degrees QTc Int : 468 ms Sinus rhythm with 1st degree A-V block Low voltage QRS Nonspecific T wave abnormality Abnormal ECG Confirmed by ARMANDO KAPADIA, GARCIA ([id number]), medical editor HARSHIL CARDONA ([id number]) on 01/08/2024 8:25:04 AM Referred By: Confirmed By:GARCIA ROBERTS MD
--- NOTE | 2024-01-07 08:28 | ED.RN ---
per dr garozn, no stroke alert at this time
[2024-01-07] MEDS: 0.9% Normal Saline (1000mL) 1,000 ML 999 ML IV ×3 (08:30→11:41)
--- NOTE | 2024-01-07 08:31 | CT_ITS ---
STUDY: CT BRAIN WITHOUT CONTRAST REASON FOR EXAM: Female, 63 years old. ms change RADIATION DOSAGE (If Supplied By Facility): CTDIvol = ( 44.99 ) mGy, DLP = ( 829.85 ) mGycm TECHNIQUE: Transaxial CT imaging of the brain was performed without administration of intravenous contrast material. Individualized dose optimization techniques were used for this CT. COMPARISON: 09/07/2023 FINDINGS: Normal soft tissue structures. Normal calvarium. Normal size ventricles and extra-axial spaces for the patient''s age. There are areas of decreased attenuation within the white matter tracts of the supratentorial brain, consistent with microvascular disease changes. Normal basal ganglia and thalami. Normal brainstem. Normal cerebellum. There is no intracranial hemorrhage. There are no findings of an acute ischemic infarction. Normal visualized paranasal sinuses. CT/Brain/Head without Contrast IMPRESSION: Age consistent senescent changes, no acute hemorrhage, no interval change Electronically Signed: King Hadley MD at 9:31 EDT ,
[2024-01-07 08:32] LABS: Absolute Lymphocyte Count 1.08 X10^3/uL (0.83-4.51); Absolute Neutrophil Count 2.8 X10^3/uL (2.0-7.7); Basophil# 0.01 X10^3/uL; Basophil% 0.2 % (0-1); Eosinophil# 0.04 X10^3/uL; Eosinophils% 0.9 % (0-5); Hematocrit 29.9 % (37-47); Lymphocyte # 1.08 X10^3/ul (0.83-4.51); Lymphocyte % 23.5 % (19-41); Mean Corp Hgb Conc 30.1 g/dL (32-36); Mean Corpuscular Hgb 26.9 pg (27.0-32.0); Mean Corpuscular Volume 89.5 fL (81-99); Mean Platelet Vol. 11.2 fl (6.2-12.0); NRBC Flagged by Analyzer 0.4 % (0-5); Neutrophil % 60.9 % (47-70); POSITIVE COUNT YES; Platelet Count 29 K/mm3 (150-450); Red Blood Count 3.34 M/mm3 (4.2-5.4); White Blood Count 4.6 K/mm3 (4.4-11.0)
--- NOTE | 2024-01-07 08:32 | EX.ED.DYSGE1 ---
HPI History of Present Illness Chief Complaint: Neuro S/Sx Informant: patient and EMS Onset/Context/Timing Onset: Days Context: Gradual Onset Timing: Continuous Current Severity: Moderate Maximum Severity: Moderate Narrative Narrative: 63-year-old female from a local extended care facility. She has a history of end-stage renal disease gets dialysis 3 times a week, anemia, CHF, diabetic. She has a chronic aphasia. According to [facility] staff she has had low blood pressures for the last several days and last night went to bed around 530 and slept all night. Today they thought she was more sluggish and again had a low blood pressure called the squad. 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 Prior similar symptoms: No Recent Illness/Hospitalization: No PFSH PFSH Medical History Acute on chronic anemia CKD (chronic kidney disease) Hypoxemia CHF (congestive heart failure) Respiratory failure with hypoxia and hypercapnia Diabetes Current use of insulin Restless legs COPD (chronic obstructive pulmonary disease) History of stress test Irregular heartbeat MSSA bacteremia Congestive heart failure Gastroparesis Anxiety CPAP (continuous positive airway pressure) dependence Sleep apnea On home oxygen therapy Chronic kidney disease Anemia Chest pain (HFpEF) heart failure with preserved ejection fraction Pleural effusion, left Pulmonary edema Chronic kidney disease Malaise History of fever GASTON (acute kidney injury) Retinal hemorrhage Lower extremity edema History of renal insufficiency History of diabetes mellitus Diabetes mellitus with diabetic polyneuropathy SACHIN (obstructive sleep apnea) Chronic acquired lymphedema Chronic anemia CKD (chronic kidney disease), stage III HLD (hyperlipidemia) HTN (hypertension) Morbid obesity Diabetes mellitus, type 2 Anxiety and depression Hypoxia Hypothyroidism Home Medications ?Medication ?Instructions ?Recorded ?Last Taken ?Type atorvastatin 10 mg tablet 10 mg PO QHS cholesterol 09/24/22 04/13/23 History fenofibrate nanocrystallized 48 mg 48 mg PO DAILY cholesterol 09/24/22 04/13/23 History tablet (Tricor) levothyroxine 150 mcg tablet 150 mcg PO DAILY@0600 THYROID 03/05/23 Unknown History ropinirole 4 mg tablet 4 mg PO QHS restless legs 03/05/23 05/01/23 History pen needle, diabetic 31 gauge x 09/25/23 Unknown History 1/4 (Easy Touch) pantoprazole 40 mg tablet,delayed 40 mg PO BID heartburn #60 tabs 05/08/23 Unknown Rx release sucralfate 1 gram tablet (Carafate) 1 g PO BID heartburn #60 tabs 05/08/23 Unknown Rx acetaminophen 325 mg tablet 650 mg PO Q6H PRN pain 08/26/23 Unknown History difluprednate 0.05 % eye drops 1 drp ophthalmic (eye) 4X/DAY 08/26/23 Unknown History bleeding behind eyes nystatin 100,000 unit/gram topical 1 applic topical BID yeast 08/26/23 Unknown History powder (Nystop) artificial tears(hypromellose) 0.3 1 drp EACH EYE Q2H PRN dry eye(s) 09/07/23 Unknown History % eye gel flash glucose sensor (FreeStyle 09/16/23 Unknown History Bandar 2 Sensor kit) gabapentin 300 mg capsule 300 mg PO QHS #0 caps 09/25/23 Unknown Rx midodrine 10 mg tablet 30 mg PO MOWEFR 12/31/23 Unknown History sennosides 8.6 mg-docusate sodium 2 tab-cap PO DAILY PRN constipation 12/31/23 Unknown History 50 mg tablet (2-in-1 Laxative) zinc sulfate 50 mg zinc (220 mg) 50 mg PO DAILY 12/31/23 Unknown History tablet B complex-vitamin C-folic acid ER 1 tab PO DAILY 01/07/24 Unknown History 400 mcg tablet,extended release cefuroxime axetil 250 mg tablet 250 mg PO QHS INFECTION 01/07/24 Unknown History doxycycline hyclate 100 mg tablet 100 mg PO BID 01/07/24 Unknown History midodrine 5 mg tablet 5 mg PO TIDCM 01/07/24 Unknown History mirtazapine 15 mg tablet 15 mg PO QHS 01/07/24 Unknown History Allergy/AdvReac Type Severity Reaction Status Date / Time No Known Allergies Allergy Verified 09/16/23 08:52 Family History Mother Heart disease Hypertension Diabetes Father Prostate cancer Surgical History H/O cataract removal with insertion of prosthetic lens History of surgery on lower extremity History of cholecystectomy Social History housing: [facility] Smoking Status: Never smoker alcohol intake: never substance use type: does not use ROS ROS ED ROS Narrative Patient denies specific complaints. Limited informant. Review of Systems ROS Unobtainable: due to encephalopathy Constitutional Constitutional ED: Denies chills or fever(s) Eyes Eyes: Denies blurry vision ENT ENT ED: Denies ear pain Cardiovascular Cardiovascular: Denies chest pain Respiratory/Chest Respiratory/Chest: Denies cough or dyspnea Gastrointestinal Gastrointestinal: Denies abdominal pain Genitourinary Genitourinary ED: Denies dysuria or hematuria Musculoskeletal Musculoskeletal: Denies arthralgias Integumentary Denies abscess Neurologic Neurologic: Denies headache(s) Endocrine Endocrinology: Denies cold intolerance Allergic/Immunologic Allergic/Immunologic ED: Denies mouth swelling, tongue swelling or urticaria EXAM Physical Exam Narrative Exam Narrative: 63-year-old female hypotensive with blood pressure 76/32. Temperature initially temperature was 95.4. Pulse ox 90%. She is awake. She is sluggish but she will open her eyes. She does answer questions. Follows limited commands. H EENT exam pupils round react light. No facial droop. She is speaking it is intelligible. Neck nontender. Lungs are clear. Heart regular rhythm rate about 60 and appreciate a murmur. Chest wall and ribs are nontender. Abdomen is soft and nontender. She has 5-5 vp integration strength. She has dorsi and plantarflexion both lower extremities are symmetrically weak. She can lift either heel off the bed. Neurologically she is awake. Her eyes are open. She is follows limited commands. She is a limited informant. Again has normal vp integration strength in her hands and symmetrical weakness of both lower extremities. She has a chronic thank you speech impediment. Const Vital Signs: 01/07/24 08:23 01/07/24 08:27 01/07/24 08:55 Temperature 95.4 F L Temperature Source Temporal Pulse Rate 60 57 L Respiratory Rate 17 14 Blood Pressure 76/32 L 69/51 L Blood Pressure Mean 46 57 Pulse Ox 98 97 Oxygen Delivery Method Room Air Room Air Room Air 01/07/24 09:15 01/07/24 09:54 01/07/24 10:41 Temperature Temperature Source Pulse Rate 54 L 53 L 51 L Respiratory Rate 16 18 18 Blood Pressure 94/40 L 71/40 L 73/52 L Blood Pressure Mean 58 50 59 Pulse Ox 97 98 97 Oxygen Delivery Method Room Air Room Air Room Air 01/07/24 11:21 01/07/24 11:22 Temperature 97.8 F Temperature Source Pulse Rate 51 L Respiratory Rate 18 Blood Pressure 80/50 L 80/50 L Blood Pressure Mean 60 60 Pulse Ox 98 Oxygen Delivery Method Positive well nourished and well developed; Negative for cachectic, contractures or unkempt General Appearance ED: well developed; Negative for unkempt, cachectic, contractures, cyanotic, diaphoretic, NAD or pallor Nutritional Appearance: Negative for cachectic HEENT Reports dry mucous membranes; Denies moist mucous membranes Negative for trauma or tenderness Mouth ED: Yes dry mucous membranes Mouth: dry mucous membranes Eyes PERRL and EOMs intact bilaterally General Eye ED: Negative for pale conjunctiva or scleral icterus Neck no lymphadenopathy, supple and no JVD General: Negative for tenderness Chest Wall inspection of chest normal and palpation of chest normal Chest: Negative for other Resp normal respiratory effort and clear to auscultation bilaterally Effort and Inspection: Negative for retractions Auscultation: Negative for rales, rhonchi or wheezes Cardio regular rate, regular rhythm, S1 normal heart sound, S2 normal heart sound and no murmurs Rate: Negative for bradycardia or tachycardic Rhythm: Negative for abnormal rhythm GI normal to inspection, nondistended, normoactive bowel sounds, non-tender, non-distended and no masses Inspection: Negative for abdominal distention Auscultation: normoactive bowel sounds Palpation: soft; Negative for tender, guarding or rebound tenderness present Back/Spine no CVA tenderness General Back: Negative for CVA tenderness Cervical Spine: Negative for cervical spine tenderness Thoracic Spine / Upper Back: Negative for thoracic spinal tenderness or paraspinal muscle tenderness Lumbar Spine / Lower Back: Negative for lumbar spinal tenderness Extremity normal to inspection General Extremety ED: Negative for edema or tenderness General Extremity: Negative for edema Neuro oriented x3 and CN's II-XII intact bilaterally Sensorium / Orientation: alert; Negative for orientation impaired, lethargic or stuporous Motor Exam: strength 5/5 throughout; Negative for general weakness or strength abnormal Psych mental status grossly normal Appearance: Negative for unkempt Attitude: No agitated Mood & Affect: Negative for depressed, anxious or tearful Skin no rashes or lesions noted and no wounds General Skin Exam: Negative for jaundice or pallor Lesions: No lesion noted Rashes: No rashes noted Trauma: Negative for abrasion MDM MDM MDM Narrative Medical decision making narrative: 63-year-old from a [place] hypotensive with decreased mental status. Clinically I do not think this is a stroke I think she may be dehydrated or infectious etiology or even sepsis. She undergo a stroke/sepsis protocol. She is receiving a liter normal saline to improve her blood pressure and she will go for a CAT scan and will straight catheter for UA. Multiple repeat exams currently at 11 AM patient is awake. Her eyes are open. The blood pressures reading 73/46 and Ultec that is anchored she has a strong radial pulse. I Meban the nurses take it manually. She has been given fluid boluses. Patient may or may not have a UTI that looks contaminated but was a cath specimen. She was started on Rocephin a urine culture and blood cultures are being obtained. I will speak to the hospitalist about admission. I did speak to the extended care facility she has been there since around August. She not been doing well for about 5 days. Started having issues last Friday she has had lower than normal blood pressures and decreasing mental status. Today when she looked worse they decided to send her into the emergency department. Patient has received 1 L on her second liter normal receive her third liter of saline. I spoke with hospitalist Dr. Vanessa Szymanski. I written for the patient to be started on Rocephin for her UTI/urosepsis. And she will be down to evaluate the patient admitted to the ICU. History & Record Review Discussion w/independent historian: Patient Additional record(s) reviewed:: Prior inpatient record, Prior outpatient record, Prior ED visit and Prior labs Lab Data Attestation: I reviewed the patient's lab results. Lab results narrative: CBC shows a white count of 4.6. H&H 9.0 and 29. Platelet count is low at 29,000. PT, INR and PTT are 14, 1 and 66. Electrolytes show a gap 7. BUN is 67 creatinine 5.47 she has a history of renal insufficiency. Lactic acid is normal at 0.9. Troponin is normal at 6. Patient has had low platelet counts like this before. Patient is on dialysis. Urine shows no nitrates but green 100 white cells. It is contaminated with 10-25 epithelial cells but this was a cath specimen. 4+ bacteria. This will be treated as a possible UTI and a urine culture will be sent. Labs: Laboratory Results - last 24 hr 01/07/24 01/07/24 08:23 09:17 WBC 4.6 RBC 3.34 L Hgb 9.0 L Hct 29.9 L MCV 89.5 MCH 26.9 L MCHC 30.1 L RDW Std Deviation 57.0 H RDW Coeff of Vlad 18.0 H Plt Count 29 L* MPV 11.2 Immature Gran % (Auto) 1.500 H Neut % (Auto) 60.9 Lymph % (Auto) 23.5 [place] % (Auto) 13.0 H Eos % (Auto) 0.9 Baso % (Auto) 0.2 Absolute Neuts (auto) 2.8 Absolute Lymphs (auto) 1.08 Nucleated RBC % 0.4 Diff Path Review May foll Platelet Estimate MKD JUN PT 14.9 INR 1.2 APTT 66.9 H Sodium 137 Potassium 4.1 Chloride 103 Carbon Dioxide 27.0 Anion Gap 7 BUN 67 H Creatinine 5.47 H Estim Creat Clear Calc 12.28 Est GFR (MDRD) Af Amer 10 L Est GFR (MDRD) Non-Af 8 L BUN/Creatinine Ratio 12.2 Glucose 115 H Lactic Acid 0.9 Calcium 9.4 Troponin I High Sens 6 Urine Color Yellow Urine Clarity Cloudy Urine pH 6.0 Ur Specific [place] 1.015 Urine Protein 500 H Urine Glucose (UA) Normal Urine Ketones 5 H Urine Occult Blood 50 H Urine Nitrite Negative Urine Bilirubin 1 H Urine Urobilinogen 1 H Ur Leukocyte Esterase 500 H Urine RBC 0 SEEN Urine WBC >100 SEEN Ur Squamous Epith Cells 10-25 SEEN Ur Transition Epith Cell 0-5 SEEN Ur Renal Epithelial Cell 0-5 SEEN Urine Bacteria 4+ Urine Mucus 0 SEEN Radiography Chest X-Ray - ED: 1 View, Read by ED Physician, Read by Radiologist, Normal, Heart, Lungs, Mediastinum, Bony Structures and No Acute Disease Diagnostic Testing: Clinical Impression(s) from Imaging Studies Brain CT 01/07/24 08:31 IMPRESSION: Age consistent senescent changes, no acute hemorrhage, no interval change Electronically Signed: King Hadley MD at 9:31 EDT , Chest X-Ray 01/07/24 08:47 IMPRESSION: No acute pulmonary process Electronically Signed: King Hadley MD at 9:02 EDT , Chest x-ray, portable, single view interpreted both by myself and the radiologist shows no acute abnormality. Normal cardiac silhouette. Normal lung reyes. Right-sided Vas-Cath. Rhythm Strip Rhythm Strip: Sinus Rhythm Rate: 60 Ectopy: None EKG Initial EKG: Attestation: I personally reviewed and interpreted this EKG as follows: Interpretation: Sinus Rhythm and No Acute Injury Pattern Comments: Normal sinus rhythm rate of 60 first-degree AV block ND interval of 256. No acute signs of SC or ischemia. No dysrhythmia. Critical Care Time Critical Care Time: Yes Critical care time (excluding procedures): 30-74 minutes, Including time spent:, Discussing w/Patient &/or Family/Lumber Puller, Discussing w/Consultants, Arranging Admission or Transfer, Performing Direct Patient Care at Bedside and - (40 minutes) Discharge Plan Dx/Rx/DC Orders Clinical Impression: Altered mental status, Acute hypotension, Acute UTI, Hx of renal failure, History of renal dialysis, History of diabetes mellitus Disposition Disposition: [facility]
[2024-01-07 08:38] LABS: Differential Indicated SCAN CRITERIA MET
[2024-01-07 08:44] LABS: International Normalized Ratio 1.2; Prothrombin Time (Protime)PT. 14.9 SECONDS (11.7-14.9)
[2024-01-07 08:45] LABS: Partial Thromboplast Time 66.9 Seconds (24.1-36.2)
--- NOTE | 2024-01-07 08:47 | RAD_ITS ---
STUDY: X-RAY CHEST REASON FOR EXAM: Female, 63 years old. Chest pain/pressure TECHNIQUE: Single AP portable view of the chest. COMPARISON: 12/31/2023 FINDINGS: Stable appearance of a right subclavian catheter, EKG leads overlie the chest The lungs are clear and expanded. There is no demonstrated pleural abnormality. Normal size heart. Normal mediastinum and rebekah. Normal visualized pulmonary arteries. Normal visualized aortic arch and descending thoracic aorta. There are diffuse degenerative changes of the visualized thoracic spine. Normal visualized ribs, clavicles, and shoulders. There is no demonstrated abnormality of the visualized soft tissue structures of the upper abdomen. RAD/Chest 1 View IMPRESSION: No acute pulmonary process Electronically Signed: King Hadley MD at 9:02 EDT ,
[2024-01-07 08:57] LABS: Anion Gap 7 (5-15); BUN 67 mg/dL (7-18); BUN/Creat Ratio 12.2 RATIO (10-20); Calcium,Total 9.4 mg/dL (8.5-10.1); Chloride 103 mmol/L (98-107); Creatinine, Serum 5.47 mg/dL (0.55-1.02); EST Glomerular Filtration Rate 8 mL/min (>60); Est Glom Filt Rate - Afr Amer 10 mL/min (>60); Estimated Creatinine Clearance 12.28 ml/min; Glucose 115 mg/dL (74-106); Potassium 4.1 mmol/L (3.5-5.1); Sodium Level 137 mmol/L (136-145); Troponin-I HS 6 pg/mL (3.0-54.0)
[2024-01-07 08:59] LABS: Lactic Acid 0.9 mmol/L (0.4-1.9)
[2024-01-07 09:10] LABS: Platelet Estimate MKD DEC (ADEQ)
[2024-01-07 09:28] LABS: Mucous, Urine 0 SEEN /hpf (<or=2+); Red Blood Cells-Urine 0 SEEN /hpf (0-5)
[2024-01-07 09:31] LABS: Color, Urine Yellow (Yellow); Glucose, Dipstick Normal (Normal); Ketone-Dipstick 5 mg/dl (Negative); Leukocyte Esterase-Dipstick 500 /ul (Negative); Nitrite-Dipstick Negative (Negative); Occult Blood-Urine 50 /ul (Negative); Protein-Dipstick 500 mg/dl (Negative); Specific Gravity, Urine 1.015 (1.002-1.030); Urine Clarity Cloudy (Clear); Urine Urobilinogen 1 mg/dl (Normal)
[2024-01-07 09:37] LABS: Urine Bilirubin Dipstick 1 mg/dL (Negative)
[2024-01-07 09:42] LABS: Bacteria 4+ /hpf (None Seen)
[2024-01-07 09:46] LABS: Squamous Epithelial Cells - UA 10-25 SEEN /hpf (5-10); Transitional Epithelial - Ur 0-5 SEEN /hpf (0-5); White Blood Cells >100 SEEN /hpf (0-5)
[2024-01-07 09:49] LABS: Renal Epithelial Cells 0-5 SEEN /hpf (0-5)
[2024-01-07] MEDS: Midodrine HCl 5 MG Tablet 10 MG PO (09:52)
--- NOTE | 2024-01-07 11:21 | ED.RN ---
Dr. Marroquin made aware of patients low BP and difficulty to arouse. Manual BP 80/50.
--- NOTE | 2024-01-07 11:24 | NURSING ---
ICU DAVID HYPOTENSION, UTI, UROSEPSIS, ESRD, DM
--- NOTE | 2024-01-07 11:28 | CT_ITS ---
STUDY: CT ABDOMEN AND PELVIS WITHOUT CONTRAST REASON FOR EXAM: Female, 63 years old. UTI with hypotension RADIATION DOSAGE (If Supplied By Facility): CTDIvol = ( 23.03 ) mGy, DLP = ( 1410.02 ) mGycm TECHNIQUE: Transaxial images were obtained from the dome of the diaphragm to the symphysis pubis without oral contrast, and without intravenous contrast. Sagittal and coronal images were reconstructed. Individualized dose optimization techniques were used for this CT. COMPARISON: None. FINDINGS: Increased markings at the lung bases slightly worse on the left side suggesting bibasilar atelectasis and/or infiltrates. Coronary artery calcification. A catheter is seen within the superior vena cava. Normal liver. There are surgical clips in the gallbladder fossa consistent with a prior cholecystectomy. There are multiple benign calcified granulomata of the spleen. Mild splenomegaly. Normal pancreas. Normal bilateral adrenal glands. Normal right kidney. Normal left kidney. Normal visualized stomach. Normal small intestine. Moderate amount of fecal material is seen in the colon. The appendix is visualized and appears normal. There is diffuse atherosclerotic calcification of the abdominal aorta and its major visceral branches, without a demonstrated aneurysm. Normal inferior vena cava. There is borderline retroperitoneal lymphadenopathy with enlarged nodes no greater than 10mm in the short axis diameter. The urinary bladder is empty. Calcified fibroid uterus. Normal abdominal wall. There are mild degenerative changes of the visualized lumbar spine. CT/Abdomen/Pelvis without Cont IMPRESSION: Increased markings at the lung bases slightly worse on the left side suggestive of bibasilar atelectasis and/or infiltrates. Splenomegaly. Atherosclerotic calcification of the abdominal aorta and major visceral branches. Small retroperitoneal lymph nodes. Electronically Signed: Maximo Obrien MD at 12:14 EDT ,
--- NOTE | 2024-01-07 11:39 | ED.RN ---
Report given to turning lathe tender
--- NOTE | 2024-01-07 11:40 | PCM.HP.STD ---
HPI - General General Date of Admission: 01/07/24 Date of Service: 01/07/24 Chief Complaint: altered MS SHERLEY BIGGS, is a 63 F who presented to the emergency department at [facility] on 01/07/2024 from her local ECF due to altered mental status and hypotension. She is not able to give me any history however history that was given to emergency department from the nursing facility ([facility]) noted that she started have some mild altered mental status and lower than normal blood pressure starting on Friday and has been slowly worsening since that point in time. At baseline she is alert and oriented x 3-4 and currently only oriented to self. The nursing facility noted she was sluggish and hypotensive today so they called the squad. She has a very complicated medical history at baseline and was recently started on dialysis in September 2023. Upon evaluation she was oriented to self but appeared very confused, fatigued, and dehydrated. Vital signs on presentation showed initial temperature of 95.4 with repeat at 97.8, pulse was 60, blood pressure initially was 76/32 and currently is 93/40 2:08 liters bolus. Third liter is being infused. CBC is unremarkable for leukocytosis or left shift however she does have a chronic stable anemia with hemoglobin currently at 9.0. Her platelet count is low at 29,000 which is lower than typical. She does have chronic thrombocytopenia. Differential shows a monocytosis with a 13.0% monocyte count. Coags are slightly abnormal with a prolonged PTT and a normal PT and INR. Electrolytes are normal. BUN and serum creatinine are elevated at 67 and 5.47 respectively however she is on dialysis at baseline. Dialysis days are Friday and Friday. Lactic acid was normal at 0.8 and troponin was 6. Her UA is consistent with infection and shows ketones, protein, leuk esterase, white cells at greater than 100 per high-power field and 4+ bacteria. EKG showed normal sinus rhythm without any ST-T wave changes concerning for acute ischemia and no changes from previous. CT of the brain shows age consistent senescent changes with no acute abnormalities. Chest x-ray shows no acute cardiopulmonary process and is stable right-sided dialysis catheter. In the emergency department for her hypotension she was given 3 L bolus which is 30 cc/kg of body weight and given Rocephin. She will be admitted to the intensive care unit. [facility] Medical History Acute on chronic anemia CKD (chronic kidney disease) Hypoxemia CHF (congestive heart failure) Respiratory failure with hypoxia and hypercapnia Diabetes Current use of insulin Restless legs COPD (chronic obstructive pulmonary disease) History of stress test Irregular heartbeat MSSA bacteremia Congestive heart failure Gastroparesis Anxiety CPAP (continuous positive airway pressure) dependence Sleep apnea On home oxygen therapy Chronic kidney disease Anemia Chest pain (HFpEF) heart failure with preserved ejection fraction Pleural effusion, left Pulmonary edema Chronic kidney disease Malaise History of fever GASTON (acute kidney injury) Retinal hemorrhage Lower extremity edema History of renal insufficiency History of diabetes mellitus Diabetes mellitus with diabetic polyneuropathy SACHIN (obstructive sleep apnea) Chronic acquired lymphedema Chronic anemia CKD (chronic kidney disease), stage III HLD (hyperlipidemia) HTN (hypertension) Morbid obesity Diabetes mellitus, type 2 Anxiety and depression Hypoxia Hypothyroidism Home Medications ?Medication ?Instructions ?Recorded ?Last Taken ?Type atorvastatin 10 mg tablet 10 mg PO QHS cholesterol 09/24/22 04/13/23 History fenofibrate nanocrystallized 48 mg 48 mg PO DAILY cholesterol 09/24/22 04/13/23 History tablet (Tricor) levothyroxine 150 mcg tablet 150 mcg PO DAILY@0600 THYROID 03/05/23 Unknown History ropinirole 4 mg tablet 4 mg PO QHS restless legs 03/05/23 05/01/23 History pen needle, diabetic 31 gauge x 04/14/23 Unknown History 1/4 (Easy Touch) pantoprazole 40 mg tablet,delayed 40 mg PO BID heartburn #60 tabs 05/08/23 Unknown Rx release sucralfate 1 gram tablet (Carafate) 1 g PO BID heartburn #60 tabs 05/08/23 Unknown Rx acetaminophen 325 mg tablet 650 mg PO Q6H PRN pain 08/26/23 Unknown History difluprednate 0.05 % eye drops 1 drp ophthalmic (eye) 4X/DAY 08/26/23 Unknown History bleeding behind eyes nystatin 100,000 unit/gram topical 1 applic topical BID yeast 08/26/23 Unknown History powder (Nystop) artificial tears(hypromellose) 0.3 1 drp EACH EYE Q2H PRN dry eye(s) 09/07/23 Unknown History % eye gel flash glucose sensor (FreeStyle 09/16/23 Unknown History Bandar 2 Sensor kit) gabapentin 300 mg capsule 300 mg PO QHS #0 caps 09/25/23 Unknown Rx midodrine 10 mg tablet 30 mg PO MOWEFR 12/31/23 Unknown History sennosides 8.6 mg-docusate sodium 2 tab-cap PO DAILY PRN constipation 12/31/23 Unknown History 50 mg tablet (2-in-1 Laxative) zinc sulfate 50 mg zinc (220 mg) 50 mg PO DAILY 12/31/23 Unknown History tablet B complex-vitamin C-folic acid ER 1 tab PO DAILY 01/07/24 Unknown History 400 mcg tablet,extended release cefuroxime axetil 250 mg tablet 250 mg PO QHS INFECTION 01/07/24 Unknown History doxycycline hyclate 100 mg tablet 100 mg PO BID 01/07/24 Unknown History midodrine 5 mg tablet 5 mg PO TIDCM 01/07/24 Unknown History mirtazapine 15 mg tablet 15 mg PO QHS 01/07/24 Unknown History Allergy/AdvReac Type Severity Reaction Status Date / Time No Known Allergies Allergy Verified 09/16/23 08:52 Family History Mother Heart disease Hypertension Diabetes Father Prostate cancer Surgical History H/O cataract removal with insertion of prosthetic lens History of surgery on lower extremity History of cholecystectomy Social History housing: half-way Smoking Status: Never smoker alcohol intake: never substance use type: does not use ROS Review of Systems ROS Unobtainable: due to encephalopathy Vital Signs Vital Signs Vital Signs: 01/07/24 08:23 01/07/24 08:27 01/07/24 08:55 Temperature 95.4 F L Temperature Source Temporal Pulse Rate 60 57 L Respiratory Rate 17 14 Blood Pressure 76/32 L 69/51 L Blood Pressure Mean 46 57 Pulse Ox 98 97 Oxygen Delivery Method Room Air Room Air Room Air 01/07/24 09:15 01/07/24 09:54 01/07/24 10:41 Temperature Temperature Source Pulse Rate 54 L 53 L 51 L Respiratory Rate 16 18 18 Blood Pressure 94/40 L 71/40 L 73/52 L Blood Pressure Mean 58 50 59 Pulse Ox 97 98 97 Oxygen Delivery Method Room Air Room Air Room Air 01/07/24 11:21 01/07/24 11:22 Temperature 97.8 F Temperature Source Pulse Rate 51 L Respiratory Rate 18 Blood Pressure 80/50 L 80/50 L Blood Pressure Mean 60 60 Pulse Ox 98 Oxygen Delivery Method Weight Weight: 104.1 kg Body Mass Index (BMI) 38.2 Physical Exam Const alert, no apparent distress and well nourished; Negative for oriented x3, average body habitus or healthy appearing Constitutional Narrative: Morbidly obese, white female, oriented only to self, middle-aged, appears much older than stated age, appears ill and toxic Orientation / Consciousness: confused and lethargic HEENT normocephalic, head/scalp atraumatic and hearing grossly normal bilaterally; Negative for moist oral mucous membranes Eyes PERRL and EOMs intact bilaterally Eyes Narrative: Mild conjunctival pallor bilaterally, no scleral icterus Neck no lymphadenopathy and supple Neck Narrative: Short thick neck, trachea midline, no noted thyroid enlargement Resp normal respiratory effort, no retractions, no use of accessory muscles and clear to auscultation bilaterally Resp Narrative: distant Auscultation: Negative for rales, rhonchi or wheezes Cardio regular rate, regular rhythm, S1 normal heart sound, S2 normal heart sound, no murmurs, no rub, no gallops and no clicks GI normal to inspection, nondistended, normoactive bowel sounds, soft to palpation and non-tender GI Narrative: Large protuberant abdomen Extremity Extremity Narrative: Trace bilateral lower extremity edema that is pitting in nature, no cyanosis or clubbing Neuro moves all extremities and no focal motor deficits Sensorium / Orientation: awake, alert and oriented to person Psych Psych Narrative: Affect is flat and patient appears ill Results Lab / Micro Data Attestation: I reviewed the patient's lab results. 01/07/24 08:23 01/07/24 08:23 Labs: Laboratory Results - last 24 hr 01/07/24 08:23: WBC 4.6, RBC 3.34 L, Hgb 9.0 L, Hct 29.9 L, MCV 89.5, MCH 26.9 L, MCHC 30.1 L, RDW Std Deviation 57.0 H, RDW Coeff of Lvad 18.0 H, Plt Count 29 L*, MPV 11.2, Immature Gran % (Auto) 1.500 H, Neut % (Auto) 60.9, Lymph % (Auto) 23.5, [place] % (Auto) 13.0 H, Eos % (Auto) 0.9, Baso % (Auto) 0.2, Absolute Neuts (auto) 2.8, Absolute Lymphs (auto) 1.08, Nucleated RBC % 0.4, Diff Path Review November, Platelet Estimate MKD DEC, PT 14.9, INR 1.2, APTT 66.9 H, Sodium 137, Potassium 4.1, Chloride 103, Carbon Dioxide 27.0, Anion Gap 7, BUN 67 H, Creatinine 5.47 H, Estim Creat Clear Calc 12.28, Est GFR (MDRD) Af Amer 10 L, Est GFR (MDRD) Non-Af 8 L, BUN/Creatinine Ratio 12.2, Glucose 115 H, Lactic Acid 0.9, Calcium 9.4, Troponin I High Sens 6 01/07/24 09:17: Urine Color Yellow, Urine Clarity Cloudy, Urine pH 6.0, Ur Specific [place] 1.015, Urine Protein 500 H, Urine Glucose (UA) Normal, Urine Ketones 5 H, Urine Occult Blood 50 H, Urine Nitrite Negative, Urine Bilirubin 1 H, Urine Urobilinogen 1 H, Ur Leukocyte Esterase 500 H, Urine RBC 0 SEEN, Urine WBC >100 SEEN, Ur Squamous Epith Cells 10-25 SEEN, Ur Transition Epith Cell 0-5 SEEN, Ur Renal Epithelial Cell 0-5 SEEN, Urine Bacteria 4+, Urine Mucus 0 SEEN Rhythm Strip Rhythm Strip: Sinus Rhythm Rate: 60 Ectopy: None Imaging Radiology Impression Brain CT 01/07/24 08:31 IMPRESSION: Age consistent senescent changes, no acute hemorrhage, no interval change Electronically Signed: King Hadley MD at 9:31 EDT , Chest X-Ray 01/07/24 08:47 IMPRESSION: No acute pulmonary process Electronically Signed: King Hadley MD at 9:02 EDT , Assessment & Plan Assessment/Plan (1) Hypotension: (2) UTI (urinary tract infection): (3) Thrombocytopenia: (4) Toxic metabolic encephalopathy: PLAN: Plan Hypotension with suspected UTI -Patient does not meet criteria for sepsis per Sep 3 guidelines -Patient was given 30 cc kilogram of body weight fluid bolus which equated 3 L at the time of presentation the emergency department and thus far seems to be fluid responsive however will need to monitor and start pressors if pressures do not stabilize -Blood and urine cultures are pending -Check MRSA PCR -Start cefepime and vancomycin as patient has had frequent hospitalization and resides in a ECF at this time -Patient is on midodrine at baseline so I suspect her pressures are not great normally so we will continue midodrine as patient is able to take -Admit to the ICU and consult critical care medicine Abnormal UA -Highly suspect UTI -Treatment as above -Await cultures Toxic/metabolic encephalopathy -Reportedly baseline alert and oriented x 3-4 -currently oriented only x 1 -Likely related to the above -Continue to monitor -Check ABG to rule out hypercapnia -CT of the brain is unremarkable Thrombocytopenia-acute on chronic -Baseline platelet counts appear to be 70 and 100,000 next-currently 29,000 and highly suspect this is related to infection -Repeat CBC in a.m. -Will hold chemoprophylaxis with subcu heparin at this time due to thrombocytopenia but once greater than 75,000 initiate subcu DVT prophylaxis Dehydration -Patient looks very clinically dry on exam -Fluids given as above -will reassess -No maintenance fluids as patient is dialysis dependent at baseline End-stage renal disease -Dialysis dependent -Has temporary line in right chest -No signs of infection here at this time -Typical dialysis is MWF -Consult nephrology Chronic hypoxic respiratory failure/SACHIN -BiPAP nocturnally -Continue home oxygen as ordered -Typically on 4 L per previous documentation at baseline -As needed bronchodilator therapy Chronic anemia -Baseline appears to be between 7.5 and 9 -Currently 9.0 -Anticipate drop with IV fluids next-continue to monitor -No signs of acute blood loss Chronic debility secondary to comorbid conditions -PT/OT consultation -Case management/social work consulted for assistance with discharge planning DM-2 -Had recent hemoglobin A1c in September and was 7.6 -Patient is currently not on anything for her blood sugars as an outpatient -Add sliding scale -Accu-Cheks as ordered -Cardiac/carb controlled diet as patient able to partake History of dysphagia -Will continue mechanical soft thin liquid diet -May need speech therapy involvement depending on how she does with this diet Hypothyroidism -Continue home Synthroid GERD/esophageal stenosis/history of erosive gastropathy -Continue home Protonix -Continue home Carafate -Hemoglobin is stable Pulmonary hypertension -Likely related to morbid obesity and obstructive sleep apnea -Most recent echo shows a right ventricular systolic pressure of 40 mmHg -Continue dialysis for volume status management History of HFpEF -Currently compensated Restless leg syndrome -Continue ropinirole Diabetic neuropathy -Will hold gabapentin currently with somnolence Hyperlipidemia -Continue home fenofibrate -Continue home atorvastatin Obesity -BMI 38.2 -Recommend weight loss -Complicates treatment, prognosis, outcomes Depression -Continue home mirtazapine DVT prophylaxis -SCDs next-chemoprophylaxis on hold due to thrombocytopenia CODE STATUS -Full code Sepsis Attestation Sepsis Attestation: Sepsis Ruled Out Charges/Coding Visit Charges Inpatient E&M: 55219 Init Hosp L3
[2024-01-07] MEDS: Ceftriaxone 1 GM/50 ML BAG IV (11:41)
--- NOTE | 2024-01-07 12:20 | EX.PCM.CONCC ---
Assessment & Plan Assessment/Plan (1) Sepsis: PLAN: Plan RECOMMENDATIONS: 1. Continue broad-spectrum antimicrobials as ordered. 2. If hypotension persists, will initiate vasopressor support. 3. Continue scheduled midodrine. 4. Check TSH. 5. Supplemental oxygen, if needed, to maintain saturations at or above 90%. 6. Recommend initiation of BiPAP therapy with naps and nightly. IMPRESSIONS: 1. Sepsis The patient presented to the hospital with sepsis due to probable urinary tract source of infection with acute sepsis related organ dysfunction as evidenced by altered mental status, persistent hypotension and thrombocytopenia. The patient did receive sepsis related IV fluids in the emergency department. Her blood pressures are somewhat borderline. If she remains persistently hypotensive, vasopressor support will be initiated. The patient has already been initiated on broad-spectrum antimicrobials, which will be continued, pending culture results. 2. Toxic metabolic encephalopathy Likely related to #1. Anticipate improvement in mental status with resolution of presenting infection. Will continue to monitor the patient clinically. TSH will be checked. 3. History of anemia/thrombocytopenia/obesity/hypothyroidism/diabetes mellitus/chronic kidney disease/GERD/obstructive sleep apnea Complicates care, management, recovery and prognosis. Continue supportive measures as noted above. This note was generated with [employer] dictation software. It may contain incorrect words, spelling, and punctuation that were not noted in checking the note before signing. HPI Consult Data Date of Consult: 01/08/24 HPI Narrative Reason for Consultation: Septic shock HPI Narrative: The patient is a 63-year-old female, with a history as outlined below, who presented to the emergency department from her extended care facility with altered mental status and hypotension. The patient is well-known to me from prior hospitalizations and has a history of chronic combined respiratory failure with a baseline oxygen requirement of 2 L/min throughout the day and 4 L/min nightly. She has been noncompliant with prescribed nocturnal PAP therapy in the past. Her medical history is also significant for hypertension, diabetes mellitus, hypothyroidism, chronic kidney disease, GERD and hyperlipidemia. History pertinent to her hospitalization was obtained primarily via chart review, as the patient is to confused and disoriented to provide any additional detail. On presentation to the emergency department, the patient was documented to have a temperature of 95.4 ?F. She was bradycardic and hypotensive, but maintaining appropriate oxygen saturations on room air. Initial laboratory evaluation revealed a platelet count of 29,000. Arterial blood gas was notable for a pH of 7.32 with a pCO2 of 44 and pO2 of 97. Chemistry profile was notable for a creatinine of 5.47. Lactate was within normal limits. Urine analysis was negative for nitrates but positive for leukocyte esterase and 4+ urine bacteria. The patient received supplemental IV fluid hydration in the emergency department and was initiated on antimicrobial therapy. She was subsequently admitted to the medical intensive care unit for further management. [facility] Medical History (Updated 01/08/24 @ 00:01 by Yari Dickinson) Sepsis Acute on chronic anemia CKD (chronic kidney disease) Hypoxemia CHF (congestive heart failure) Respiratory failure with hypoxia and hypercapnia Diabetes Current use of insulin Restless legs COPD (chronic obstructive pulmonary disease) History of stress test Irregular heartbeat MSSA bacteremia Congestive heart failure Gastroparesis Anxiety CPAP (continuous positive airway pressure) dependence Sleep apnea On home oxygen therapy Chronic kidney disease Anemia Chest pain (HFpEF) heart failure with preserved ejection fraction Pleural effusion, left Pulmonary edema Chronic kidney disease Malaise History of fever GASTON (acute kidney injury) Retinal hemorrhage Lower extremity edema History of renal insufficiency History of diabetes mellitus Diabetes mellitus with diabetic polyneuropathy SACHIN (obstructive sleep apnea) Chronic acquired lymphedema Chronic anemia CKD (chronic kidney disease), stage III HLD (hyperlipidemia) HTN (hypertension) Morbid obesity Diabetes mellitus, type 2 Anxiety and depression Hypoxia Hypothyroidism Home Medications ?Medication ?Instructions ?Recorded ?Last Taken ?Type atorvastatin 10 mg tablet 10 mg PO QHS cholesterol 09/24/22 04/13/23 History fenofibrate nanocrystallized 48 mg 48 mg PO DAILY cholesterol 09/24/22 04/13/23 History tablet (Tricor) levothyroxine 150 mcg tablet 150 mcg PO DAILY@0600 THYROID 03/05/23 Unknown History ropinirole 4 mg tablet 4 mg PO QHS restless legs 03/05/23 05/01/23 History pen needle, diabetic 31 gauge x 04/14/23 Unknown History 07/24 (Easy Touch) pantoprazole 40 mg tablet,delayed 40 mg PO BID heartburn #60 tabs 05/08/23 Unknown Rx release sucralfate 1 gram tablet (Carafate) 1 g PO BID heartburn #60 tabs 05/08/23 Unknown Rx acetaminophen 325 mg tablet 650 mg PO Q6H PRN pain 08/26/23 Unknown History difluprednate 0.05 % eye drops 1 drp ophthalmic (eye) 4X/DAY 08/26/23 Unknown History bleeding behind eyes nystatin 100,000 unit/gram topical 1 applic topical BID yeast 08/26/23 Unknown History powder (Nystop) artificial tears(hypromellose) 0.3 1 drp EACH EYE Q2H PRN dry eye(s) 09/07/23 Unknown History % eye gel flash glucose sensor (FreeStyle 09/16/23 Unknown History Bandar 2 Sensor kit) gabapentin 300 mg capsule 300 mg PO QHS #0 caps 09/25/23 Unknown Rx midodrine 10 mg tablet 30 mg PO MOWEFR 12/31/23 Unknown History sennosides 8.6 mg-docusate sodium 2 tab-cap PO DAILY PRN constipation 12/31/23 Unknown History 50 mg tablet (2-in-1 Laxative) zinc sulfate 50 mg zinc (220 mg) 50 mg PO DAILY 12/31/23 Unknown History tablet B complex-vitamin C-folic acid ER 1 tab PO DAILY 01/07/24 Unknown History 400 mcg tablet,extended release cefuroxime axetil 250 mg tablet 250 mg PO QHS INFECTION 01/07/24 Unknown History doxycycline hyclate 100 mg tablet 100 mg PO BID 01/07/24 Unknown History midodrine 5 mg tablet 5 mg PO TIDCM 01/07/24 Unknown History mirtazapine 15 mg tablet 15 mg PO QHS 01/07/24 Unknown History Allergy/AdvReac Type Severity Reaction Status Date / Time No Known Allergies Allergy Verified 09/16/23 08:52 Family History Mother Heart disease Hypertension Diabetes Father Prostate cancer Surgical History H/O cataract removal with insertion of prosthetic lens History of surgery on lower extremity History of cholecystectomy Social History housing: intermediate Smoking Status: Never smoker alcohol intake: never substance use type: does not use ROS Review of Systems ROS Unobtainable: due to mental status Physical Exam Const Constitutional Narrative: The patient will arouse to verbal stimulation but is still lethargic and disoriented. Obese. General Appearance: ill appearing HEENT normocephalic and head/scalp atraumatic Eyes PERRL, EOMs intact bilaterally and conjunctivae normal Neck supple General: trachea midline Chest inspection of chest normal Resp normal respiratory effort Auscultation: Negative for rales, rhonchi or wheezes Cardio S1 normal heart sound and S2 normal heart sound Rate: bradycardia GI normal to inspection, nondistended, normoactive bowel sounds Extremity General Extremity: edema; Negative for clubbing Skin no rashes or lesions noted Neuro CN's II-XII intact bilaterally and no focal motor deficits Psych Mood & Affect: flat affect Lab / Micro Data 01/08/24 06:20 01/07/24 08:23 Labs: Laboratory Results - last 24 hr 01/07/24 08:23: WBC 4.6, RBC 3.34 L, Hgb 9.0 L, Hct 29.9 L, MCV 89.5, MCH 26.9 L, MCHC 30.1 L, RDW Std Deviation 57.0 H, RDW Coeff of [place] 18.0 H, Plt Count 29 L*, MPV 11.2, Immature Gran % (Auto) 1.500 H, Neut % (Auto) 60.9, Lymph % (Auto) 23.5, [place] % (Auto) 13.0 H, Eos % (Auto) 0.9, Baso % (Auto) 0.2, Absolute Neuts (auto) 2.8, Absolute Lymphs (auto) 1.08, Nucleated RBC % 0.4, Diff Path Review November, Platelet Estimate MKD DEC, PT 14.9, INR 1.2, APTT 66.9 H, Sodium 137, Potassium 4.1, Chloride 103, Carbon Dioxide 27.0, Anion Gap 7, BUN 67 H, Creatinine 5.47 H, Estim Creat Clear Calc 12.28, Est GFR (MDRD) Af Amer 10 L, Est GFR (MDRD) Non-Af 8 L, BUN/Creatinine Ratio 12.2, Glucose 115 H, Lactic Acid 0.9, Calcium 9.4, Troponin I High Sens 6 01/07/24 09:17: Urine Color Yellow, Urine Clarity Cloudy, Urine pH 6.0, Ur Specific [place] 1.015, Urine Protein 500 H, Urine Glucose (UA) Normal, Urine Ketones 5 H, Urine Occult Blood 50 H, Urine Nitrite Negative, Urine Bilirubin 1 H, Urine Urobilinogen 1 H, Ur Leukocyte Esterase 500 H, Urine RBC 0 SEEN, Urine WBC >100 SEEN, Ur Squamous Epith Cells 10-25 SEEN, Ur Transition Epith Cell 0-5 SEEN, Ur Renal Epithelial Cell 0-5 SEEN, Urine Bacteria 4+, Urine Mucus 0 SEEN Rhythm Strip Rhythm Strip: Sinus Rhythm Rate: 60 Ectopy: None Imaging Radiology Impression Brain CT 01/07/24 08:31 IMPRESSION: Age consistent senescent changes, no acute hemorrhage, no interval change Electronically Signed: King Hadley MD at 9:31 EDT , Chest X-Ray 01/07/24 08:47 IMPRESSION: No acute pulmonary process Electronically Signed: King Hadley MD at 9:02 EDT , Abdomen/Pelvis CT 01/07/24 11:28 IMPRESSION: Increased markings at the lung bases slightly worse on the left side suggestive of bibasilar atelectasis and/or infiltrates. Splenomegaly. Atherosclerotic calcification of the abdominal aorta and major visceral branches. Small retroperitoneal lymph nodes. Electronically Signed: Maximo Obrien MD at 12:14 EDT , Charges/Coding Visit Charges Inpatient E&M: 31777 Init Hosp L3
[2024-01-07 12:22] LABS: Allen Test Positive; Base Excess -3 mmol/L (-2 to +2); Bicarbonate 22.8 mmol/L (22-26); Blood Gas Specimen Type ART; Mode Not entered; O2 Delivery Device Room Air; PO2 97 mmHG (75-100); SITE R Radial; SO2 97 % (95-99); Total Carbon Dioxide 24 mmol/L; pCO2 44.3 mmHg (35-45); pH 7.32 (7.35-7.45)
[2024-01-07] MEDS: Norepinephrine 8 MG in 0.9% Normal Saline (250mL Bag) 242 ML 9.4 MG CONT INF (12:49)
[2024-01-07] MEDS: Cefepime HCl 2 GM in 0.9% Normal Saline (100mL MB+) 100 ML IV (12:54)
[2024-01-07 13:15] LABS: Thyroid Stim Hormone (TSH) 1.69 uIU/mL (0.358-3.74)
[2024-01-07] MEDS: Vancomycin HCl 1,500 MG in 0.9% Normal Saline (500mL Bag) 500 ML 250 MG IV (13:44)
[2024-01-07 13:56] LABS: M R Staph aureus DNA By PCR Negative (Negative); Probe Check PASS; Specimen Processing Control PASS
--- NOTE | 2024-01-07 14:31 | PCM.RX.CS ---
Consult Antibiotic Management Pharmacy has been consulted to manage selected antibiotic: Vancomycin Type of Intervention Type of Consult: New start Suspected Infection Suspected Infection: Other Labs Labs: Sodium 137 mmol/L (136-145) 01/07/24 08:23 Potassium 4.1 mmol/L (3.5-5.1) 01/07/24 08:23 Chloride 103 mmol/L (98-107) 01/07/24 08:23 Carbon Dioxide 27.0 mmol/L (21.0-32.0) 01/07/24 08:23 Anion Gap 7 (5-15) 01/07/24 08:23 BUN 67 mg/dL (7-18) H 01/07/24 08:23 Creatinine 5.47 mg/dL (0.55-1.02) H 01/07/24 08:23 Est GFR (MDRD) Af Amer 10 mL/min (>60) L 01/07/24 08:23 Est GFR (MDRD) Non-Af 8 mL/min (>60) L 01/07/24 08:23 BUN/Creatinine Ratio 12.2 RATIO (10-20) 01/07/24 08:23 Glucose 115 mg/dL (74-106) H 01/07/24 08:23 Goal Trough Goal Trough: 15-20 mcg/mL Pharmacy Plan for Drug Dosing Pharmacy Plan for Drug Dosing: NEW START IV VANCOMYCIN Consulting Physician: Dr. Missy Szymanski Indication: UTI Goal Trough: 15-20 SrCr:5.47 CrCl: Patient on HD- Normal schedule M/W/ Comments: Patient had initial dose of 1500mg IV x1 ordered and administered 01/07/24 @1344 Vancomycin Dose: Patient will be dosed based on pre-HD levels. Spoke with Robert marine operations coordinator to verify schedule. at this time, the plan for the patient will be to get HD 01/07, 01/08, then resume normal HD schedule which is M/W/. Will enter a post-HD dose of vancomycin 750mg IV x1 for 01/08/24. Pending Level: *RANDOM* pre-HD level 01/09/24 with AM labs. Pharmacy Service will continue to monitor and adjust dosing as required.
[2024-01-07] MEDS: prednisoLONE eye drops (5 mL) 1 DROP OPTH.BTL 1 DRP OPHTHALMIC ×2 (16:57→22:07)
[2024-01-07 16:58] LABS: Bedside Glucose 90 mg/dL (74-106)
[2024-01-07] MEDS: 0.9% Saline Lock 10 ML Syringe IV (19:47)
[2024-01-07] MEDS: Nystatin Powder 15gm Bottle 1 APPLIC TOPICAL (22:07)
[2024-01-08] VITALS (66 sets, daily range): BP systolic 82–225; BP diastolic 28–79; PULSE 67–103; RESP 12–26; TEMP 36.8–37.7; O2SAT 87–102; BMI 40.1; BMI 39.4
--- NOTE | 2024-01-08 06:06 | NURSING ---
Spoke with Dr. Mendoza regarding BP titrations of Levo with this patient. Max PIV rate is 10mg/hr and it is difficult to maintain the required SBP>90. Mendoza suggested a PICC line for Levo admin. If SBP does not remain above 90 before line is placed. May have one 25gm dose of Albumin per Mendoza verbal readback.
[2024-01-08 06:39] LABS: Absolute Lymphocyte Count 0.99 X10^3/uL (0.83-4.51); Absolute Neutrophil Count 5.1 X10^3/uL (2.0-7.7); Basophil# 0.01 X10^3/uL; Basophil% 0.1 % (0-1); Eosinophil# 0.03 X10^3/uL; Eosinophils% 0.4 % (0-5); Hematocrit 31.7 % (37-47); Hemoglobin 9.3 g/dL (12.0-15.0); Lymphocyte # 0.99 X10^3/ul (0.83-4.51); Lymphocyte % 14.2 % (19-41); Mean Corp Hgb Conc 29.3 g/dL (32-36); Mean Corpuscular Hgb 26.6 pg (27.0-32.0); Mean Corpuscular Volume 90.6 fL (81-99); Mean Platelet Vol. 11.6 fl (6.2-12.0); Monocyte# 0.72 X10^3/uL; Monocyte% 10.3 % (0-10); NRBC Flagged by Analyzer 0.6 % (0-5); POSITIVE COUNT YES; RBC Distribution Width CV 18.5 % (11.6-14.6); RBC Distribution Width SD 58.2 fl (35.1-43.9)
[2024-01-08 06:43] LABS: Differential Indicated SCAN CRITERIA MET; Platelet Count 30 K/mm3 (150-450)
--- NOTE | 2024-01-08 06:59 | PN.CC_ITS ---
Assessment & Plan Assessment/Plan (1) Sepsis: PLAN: Plan RECOMMENDATIONS: 1. Continue broad-spectrum antimicrobials as ordered. 2. Continue Levophed to maintain hemodynamic stability. Will place central venous catheter. 3. Dialysis support per nephrology recommendations. 4. Obtain echocardiogram. 5. Supplemental oxygen, if needed, to maintain saturations at or above 90%. 6. Recommend initiation of BiPAP therapy with naps and nightly. 7. I anticipate the patient will require tunneled dialysis catheter removal. IMPRESSIONS: 1. Septic shock The patient presented to the hospital with sepsis due to probable urinary tract source of infection with acute sepsis related organ dysfunction as evidenced by altered mental status, persistent hypotension and thrombocytopenia. In addition, the patient was noted to have gram-positive's on blood culture. She ultimately developed fluid refractory hypotension, which did require the initiation of vasopressor support. In light of her gram-positive bacteremia, will obtain echocardiogram. Otherwise, continue current supportive measures. 2. Toxic metabolic encephalopathy Likely related to #1. Anticipate improvement in mental status with resolution of presenting infection. Will continue to monitor the patient clinically. Presenting TSH was within normal limits. 3. End-stage renal disease on hemodialysis Nephrology following to assist with hemodialysis needs. 4. History of anemia/thrombocytopenia/obesity/hypothyroidism/diabetes mellitus/chronic kidney disease/GERD/obstructive sleep apnea Complicates care, management, recovery and prognosis. Continue supportive measures as noted above. The patient is to remain n.p.o. for now. TIME: 34 minutes, independent of procedures, was spent addressing the patient's septic shock, toxic metabolic encephalopathy, end-stage renal disease, thrombocytopenia, review of all data and collaboration with care team. Subjective Subjective The patient was seen and examined at the bedside this morning. Events from the last 24 hours have been reviewed. The patient is currently afebrile, but has been maintained on a Betty hugger overnight. She is now requiring Levophed at 10 mcg/min to maintain hemodynamic stability. The patient has been maintained on BiPAP therapy with an FiO2 requirement of 30%. The patient remains disoriented and confused. Hemoglobin is stable at 9.3 g/dL. Platelet count remains low at 30,000. Preliminary blood cultures overnight were noted to be positive for gram-positive cocci. Objective Data Objective Data The patient's most recent lab work, culture data and imaging studies have all been personally reviewed. Preliminary blood cultures dated January 06 were positive for gram-positive cocci. Urine cultures are pending. Vital Signs: Vital Signs Temp Pulse Resp BP Pulse Ox O2 Del Method FiO2 97.8 F 101 H 21 H 100/37 L 96 Bi-pap 30 01/07/24 22:00 01/08/24 06:30 01/08/24 06:30 01/08/24 06:30 01/08/24 06:30 01/08/24 06:30 01/08/24 06:30 Oxygen Delivery Method Bi-pap Weight: 241 lb 2.971 oz Body Mass Index (BMI) 40.1 Intake & Output: Intake and Output for Last 24 Hours 01/06/24 01/07/24 01/08/24 23:59 23:59 23:59 Intake Total 3749.58 / 3752.86 117.60 / 117.60 Output Total Balance 3744.58 / 3732.86 102.60 / 102.60 Lab / Micro Data Attestation: I reviewed the patient's lab results. 01/08/24 06:20 01/08/24 06:20 Labs: Laboratory Results - last 24 hr 01/07/24 08:23: WBC 4.6, RBC 3.34 L, Hgb 9.0 L, Hct 29.9 L, MCV 89.5, MCH 26.9 L , MCHC 30.1 L, RDW Std Deviation 57.0 H, RDW Coeff of Vlad 18.0 H, Plt Count 29 L*, MPV 11.2, Immature Gran % (Auto) 1.500 H, Neut % (Auto) 60.9, Lymph % (Auto) 23.5, [place] % (Auto) 13.0 H, Eos % (Auto) 0.9, Baso % (Auto) 0.2, Absolute Neuts (auto) 2.8, Absolute Lymphs (auto) 1.08, Nucleated RBC % 0.4, Diff Path Review November, Platelet Estimate MKD DEC, PT 14.9, INR 1.2, APTT 66.9 H, Sodium 137, Potassium 4.1, Chloride 103, Carbon Dioxide 27.0, Anion Gap 7, BUN 67 H, C reatinine 5.47 H, Estim Creat Clear Calc 12.28, Est GFR (MDRD) Af Amer 10 L, Est GFR (MDRD) Non-Af 8 L, BUN/Creatinine Ratio 12.2, Glucose 115 H, Lactic Acid 0.9, Calcium 9.4, Troponin I High Sens 6, TSH 1.69 01/07/24 09:17: Urine Color Yellow, Urine Clarity Cloudy, Urine pH 6.0, Ur Specific [place] 1.015, Urine Protein 500 H, Urine Glucose (UA) Normal, Urine Ketones 5 H, Urine Occult Blood 50 H, Urine Nitrite Negative, Urine Bilirubin 1 H, Urine Urobilinogen 1 H, Ur Leukocyte Esterase 500 H, Urine RBC 0 SEEN, Urine WBC >100 SEEN, Ur Squamous Epith Cells 10-25 SEEN, Ur Transition Epith Cell 0-5 SEEN, Ur Renal Epithelial Cell 0-5 SEEN, Urine Bacteria 4+, Urine Mucus 0 SEEN 01/07/24 12:00: MRSA (PCR) Negative 01/07/24 16:41: POC Glucose 90 01/08/24 06:20: WBC 7.0, RBC 3.50 L, Hgb 9.3 L, Hct 31.7 L, MCV 90.6, MCH 26.6 L , MCHC 29.3 L, RDW Std Deviation 58.2 H, RDW Coeff of Vlad 18.5 H, MPV 11.6, I mmature Gran % (Auto) 2.000 H, Neut % (Auto) 73.0 H, Lymph % (Auto) 14.2 L, [place] % (Auto) 10.3 H, Eos % (Auto) 0.4, Baso % (Auto) 0.1, Absolute Neuts (auto) 5.1, Absolute Lymphs (auto) 0.99, Nucleated RBC % 0.6 Micro: Microbiology 01/07/24 08:40 Blood Culture (Wb) - Left Hand Blood Culture - Preliminary 01/07/24 08:37 Blood Culture (Wb) - Anticubital Left Blood Culture - Preliminary ABG Data ABG results: ABG 01/07/24 12:19 Specimen Type ART Sample Site R Radial pH 7.32 L Bicarbonate Actual 22.8 Total CO2 24 Base Excess -3 L O2 Saturation 97 O2 % 21.0 ABG pCO2 44.3 ABG pO2 97 Madi Test Positive O2 Delivery Device Room Air Vent Mode Not entered Radiography Diagnostic Testing: Radiology Impression Brain CT 01/07/24 08:31 IMPRESSION: Age consistent senescent changes, no acute hemorrhage, no interval change Electronically Signed: King Hadley MD at 9:31 EDT , Chest X-Ray 01/07/24 08:47 IMPRESSION: No acute pulmonary process Electronically Signed: King Hadley MD at 9:02 EDT , Abdomen/Pelvis CT 01/07/24 11:28 IMPRESSION: Increased markings at the lung bases slightly worse on the left side suggestive of bibasilar atelectasis and/or infiltrates. Splenomegaly. Atherosclerotic calcification of the abdominal aorta and major visceral branches. Small retroperitoneal lymph nodes. Electronically Signed: Maximo Obrien MD at 12:14 EDT , Rhythm Strip Rhythm Strip: Sinus Rhythm Rate: 60 Ectopy: None Physical Exam Const Constitutional Narrative: The patient is encephalopathic, audibly moaning, but will not follow any commands. General Appearance: ill appearing HEENT normocephalic and head/scalp atraumatic Eyes PERRL, EOMs intact bilaterally and conjunctivae normal Neck supple General: trachea midline Chest inspection of chest normal Resp Auscultation: rhonchi; Negative for rales or wheezes Cardio regular rate, regular rhythm, S1 normal heart sound and S2 normal heart sound GI normal to inspection, nondistended, normoactive bowel sounds Extremity General Extremity: edema; Negative for clubbing Skin no rashes or lesions noted Neuro moves all extremities and no focal motor deficits Psych Mood & Affect: flat affect Charges/Coding Procedures Hospitalists Procedures: 53989 Critical Care 1st Hr
--- NOTE | 2024-01-08 07:01 | ECHOD_ITS ---
Version 2 Reason For Study: OTHER Procedure This was a 2D Doppler, Color Flow transthoracic echocardiogram. Technically difficult study due to patients altered mental state. Definity deferred due to open wound under patients breast. Exam performed portable in ICU/CCU. Left Ventricle Normal LV size. The estimated ejection fraction is 70 %. Unable to assess diastolic dysfunction. No regional wall motion abnormalities noted. Right Ventricle Normal RV size. Normal systolic function. Atria The left and right atria are normal. No doppler evidence for ASD. Mitral Valve There is moderate mitral annular calcification. There is no mitral valve stenosis. No mitral valve insufficiency. Tricuspid Valve There is no tricuspid stenosis. Unable to estimate RV systolic pressure due to inadequate jet, pulmonary artery pressure probably normal. Aortic Valve Trisinus/trileaflet aortic valve. There is no aortic stenosis. No aortic valve insufficiency. Pulmonic Valve There is no pulmonic valvular stenosis. No pulmonic valve insufficiency. Great Vessels Normal aortic root. Pericardium/Pleural No pericardial effusion. MMode/2D Measurements & Calculations LVIDd: 4.7 cm IVSd: 1.5 cm Ao root diam: 3.3 cm LVIDs: 2.6 cm LVPWd: 1.2 cm FS: 45.1 % LAV(MOD-sp4): 57.7 ml LA A4 area: 20.2 cm2 LA dimension(2D): 3.4 cm RA A4 area: 6.3 cm2 Time Measurements MV dec time: 0.08 sec Doppler Measurements & Calculations MV E max eze: 103.4 cm/sec Lat Peak E' Eze: 6.9 cm/sec Med Peak E' Eze: 7.9 cm/sec MV A max eze: 99.8 cm/sec E/E' lat: 15.1 E/E' med: 13.2 MV E/A: 1.0 MV V2 max: 125.2 cm/sec MV dec slope: 1318 cm/sec2 Ao V2 max: 202.1 cm/sec MV max P.3 mmHg Ao max P.4 mmHg MV V2 mean: 85.6 cm/sec Ao V2 mean: 140.3 cm/sec MV mean P.3 mmHg Ao mean P.9 mmHg MV V2 VTI: 36.2 cm Ao V2 VTI: 39.5 cm AV (velocity ratio): 0.54 LV V1 max: 124.0 cm/sec PA V2 max: 114.9 cm/sec LV V1 max P.2 mmHg PA V2 mean: 80.6 cm/sec LV V1 mean P.6 mmHg LV V1 mean: 89.4 cm/sec LV V1 VTI: 21.2 cm ECHO/Echo Complete Interpretation Summary The estimated ejection fraction is 70 %. Unable to assess diastolic dysfunction. Ordering Physician: Gerson Cox Referring Physician: YG HINSON Performed By: Varsha Aguilar RCS
[2024-01-08 07:08] LABS: Allen Test Positive; Base Excess -7 mmol/L (-2 to +2); Bicarbonate 17.8 mmol/L (22-26); Blood Gas Specimen Type ART; Mode Not entered; O2 Delivery Device BiPAP; PO2 70 mmHG (75-100); SITE L Radial; SO2 94 % (95-99); Total Carbon Dioxide 19 mmol/L; pCO2 30.3 mmHg (35-45); pH 7.38 (7.35-7.45)
[2024-01-08 07:09] LABS: ALB/GLOB Ratio 0.6 RATIO (0.9-2.4); AST(SGOT) 81 U/L (15-37); Alanine Aminotransfer ALT/SGPT 72 U/L (13-56); Albumin, Serum 2.4 g/dL (3.2-5.0); Alkaline Phosphatase 70 U/L (45-117); Anion Gap 13 (5-15); BUN 68 mg/dL (7-18); Calcium,Total 9.1 mg/dL (8.5-10.1); Chloride 111 mmol/L (98-107); Creatinine, Serum 5.66 mg/dL (0.55-1.02); EST Glomerular Filtration Rate 8 mL/min (>60); Est Glom Filt Rate - Afr Amer 10 mL/min (>60); Estimated Creatinine Clearance 11.98 ml/min; Glucose 93 mg/dL (74-106); Magnesium 1.7 mg/dL (1.6-2.6); Phosphorus 5.5 mg/dL (2.5-4.9); Potassium 4.4 mmol/L (3.5-5.1); Protein, Total 6.4 g/dL (6.4-8.2); Sodium Level 143 mmol/L (136-145)
[2024-01-08 07:27] LABS: Platelet Estimate MKD DEC (ADEQ)
--- NOTE | 2024-01-08 08:04 | PCM.OP.PRO ---
Procedure Report Date of Procedure: 01/08/24 Central Venous Catheter Indication: Septic shock Consent was obtained from: Family A time-out was completed verifying correct patient, procedure, site, positioning, and special equipment if applicable. The patient was placed in a dependent position appropriate for central line placement based on the vein to be cannulated. The patient's left neck was prepped and draped in a sterile fashion. 1% lidocaine was used to anesthetize the surrounding skin area. A triple-lumen catheter was introduced into the left internal jugular vein using the Seldinger technique and under ultrasound guidance. The catheter was threaded smoothly over the guidewire and appropriate blood return was obtained. Each lumen of the catheter was evacuated of air and flushed with sterile saline. The catheter was then sutured in place to the skin and a sterile dressing applied. Chest x-ray to confirm appropriate positioning is pending. ULTRASOUND GUIDANCE STATEMENT (Vascular Access): I performed ultrasound image acquisition and interpretation for needle placement during the procedure. The vessel was identified and found to be free of thrombosis by compression technique. A safe point of entry was marked at the skin in an angle for axis was determined. The needle was guided by obtaining free-flowing fluid and by real-time visualization. Procedures Hospitalists Procedures: [id number] Insert Non-tunnel CV Cath
[2024-01-08] MEDS: Norepinephrine 8 MG in 0.9% Normal Saline (250mL Bag) 242 ML 28.1 MG CONT INF ×2 (08:06→22:42)
--- NOTE | 2024-01-08 08:50 | RAD_ITS ---
STUDY: X-RAY CHEST REASON FOR EXAM: Female, 63 years old. Line Placement TECHNIQUE: Single AP portable view of the chest. COMPARISON: Comparison is made with prior study dated January 07, 2024. FINDINGS: EKG electrodes are seen. A right-sided double-lumen catheter is seen with the tip at the junction of the superior vena cava and right atrium. Mild degree of vascular congestion. There is no demonstrated pleural abnormality. There is borderline cardiomegaly. Normal mediastinum and rebekah. Normal visualized pulmonary arteries. Normal visualized aortic arch and descending thoracic aorta. Normal visualized thoracic spine. Normal visualized ribs, clavicles, and shoulders. There is no demonstrated abnormality of the visualized soft tissue structures of the upper abdomen. RAD/CXR for Line Placement IMPRESSION: Mild degree of vascular congestion. Electronically Signed: Maximo Obrien MD at 9:43 EDT ,
--- NOTE | 2024-01-08 09:05 | CASEMGMT ---
Addendum entered by Louise King 01/08/24 10:26: Patient will need precert to return. Louise King DC Planning Asst. Original Note: Discharge Planning Updates sent to [facility] via [facility]. Asked if precert will be needed to return. Awaiting response. Louise King DC Planning Asst.
--- NOTE | 2024-01-08 09:35 | CASEMGMT ---
SW reviewed patient's chart and noted that in April of 2023 patient stated she did complete advance directives. Patient told SW that her brother is her power of workers compensation attorney. SW did tell patient at the time to get a copy to [facility]. Updates will be sent to [facility] and we will also inquire if they have a copy of patient's POA papers. Should they not have the documents SW will check with patient's brother to see if he is aware of where documents are located. Varsha BELTRAN
--- NOTE | 2024-01-08 10:11 | PCM.CONS.GEN ---
Assessment & Plan Assessment/Plan (1) Septic shock: PLAN: Septic shock due to VRE bacteremia (per pcr) with HD line in place - echo pending. Prior admit to [facility] 09/2023 with MRSA bacteremia requiring HD line removal. Given severity of illness, recommend HD line removal if possible. Cont cefepime for now, will change vanc to dapto, 1st dose stat. CXR is clear, no sign pneumonia at this time. Will follow, thank you, d/w nursing and Dr. Cox (2) VRE bacteremia: (3) ESRF (end stage renal failure): HPI Consult Data Date of Consult: 01/08/24 HPI Narrative Reason for Consultation: bacteremia HPI Narrative: TOBIN BIGGS, is a 63 F with ESRD, CHF, COPD, admitted end of September to [facility] with MRSA bacteremia with line removed and replaced. Sent to ED from [facility] with acute onset altered mental status and hypotension. Admitted to icu after dose of ceftriaxone, changed to vanc/cefepime. Remains in icu on pressor, getting HD this AM. Sister at bedside provided history, pt unable to provide history or ROS due to mental status. [facility] Medical History Sepsis Acute on chronic anemia CKD (chronic kidney disease) Hypoxemia CHF (congestive heart failure) Respiratory failure with hypoxia and hypercapnia Diabetes Current use of insulin Restless legs COPD (chronic obstructive pulmonary disease) History of stress test Irregular heartbeat MSSA bacteremia Congestive heart failure Gastroparesis Anxiety CPAP (continuous positive airway pressure) dependence Sleep apnea On home oxygen therapy Chronic kidney disease Anemia Chest pain (HFpEF) heart failure with preserved ejection fraction Pleural effusion, left Pulmonary edema Chronic kidney disease Malaise History of fever GASTON (acute kidney injury) Retinal hemorrhage Lower extremity edema History of renal insufficiency History of diabetes mellitus Diabetes mellitus with diabetic polyneuropathy SACHIN (obstructive sleep apnea) Chronic acquired lymphedema Chronic anemia CKD (chronic kidney disease), stage III HLD (hyperlipidemia) HTN (hypertension) Morbid obesity Diabetes mellitus, type 2 Anxiety and depression Hypoxia Hypothyroidism Home Medications ?Medication ?Instructions ?Recorded ?Last Taken ?Type atorvastatin 10 mg tablet 10 mg PO QHS cholesterol 09/24/22 04/13/23 History fenofibrate nanocrystallized 48 mg 48 mg PO DAILY cholesterol 09/24/22 04/13/23 History tablet (Tricor) levothyroxine 150 mcg tablet 150 mcg PO DAILY@0600 THYROID 03/05/23 Unknown History ropinirole 4 mg tablet 4 mg PO QHS restless legs 03/05/23 05/01/23 History pen needle, diabetic 31 gauge x 04/14/23 Unknown History 1/4 (Easy Touch) pantoprazole 40 mg tablet,delayed 40 mg PO BID heartburn #60 tabs 05/08/23 Unknown Rx release sucralfate 1 gram tablet (Carafate) 1 g PO BID heartburn #60 tabs 05/08/23 Unknown Rx acetaminophen 325 mg tablet 650 mg PO Q6H PRN pain 08/26/23 Unknown History difluprednate 0.05 % eye drops 1 drp ophthalmic (eye) 4X/DAY 08/26/23 Unknown History bleeding behind eyes nystatin 100,000 unit/gram topical 1 applic topical BID yeast 08/26/23 Unknown History powder (Nystop) artificial tears(hypromellose) 0.3 1 drp EACH EYE Q2H PRN dry eye(s) 09/07/23 Unknown History % eye gel flash glucose sensor (FreeStyle 09/16/23 Unknown History Bandar 2 Sensor kit) gabapentin 300 mg capsule 300 mg PO QHS #0 caps 09/25/23 Unknown Rx midodrine 10 mg tablet 30 mg PO MOWEFR 12/31/23 Unknown History sennosides 8.6 mg-docusate sodium 2 tab-cap PO DAILY PRN constipation 12/31/23 Unknown History 50 mg tablet (2-in-1 Laxative) zinc sulfate 50 mg zinc (220 mg) 50 mg PO DAILY 12/31/23 Unknown History tablet B complex-vitamin C-folic acid ER 1 tab PO DAILY 01/07/24 Unknown History 400 mcg tablet,extended release cefuroxime axetil 250 mg tablet 250 mg PO QHS INFECTION 01/07/24 Unknown History doxycycline hyclate 100 mg tablet 100 mg PO BID 01/07/24 Unknown History midodrine 5 mg tablet 5 mg PO TIDCM 01/07/24 Unknown History mirtazapine 15 mg tablet 15 mg PO QHS 01/07/24 Unknown History Allergy/AdvReac Type Severity Reaction Status Date / Time No Known Allergies Allergy Verified 09/16/23 08:52 Family History Mother Heart disease Hypertension Diabetes Father Prostate cancer Surgical History H/O cataract removal with insertion of prosthetic lens History of surgery on lower extremity History of cholecystectomy Social History housing: jail Smoking Status: Never smoker alcohol intake: never substance use type: does not use Physical Exam Const Constitutional Narrative: unintelligible speech General Appearance: lethargic HEENT normocephalic and head/scalp atraumatic Eyes PERRL Neck supple and No nodes Resp normal air movement and clear to auscultation bilaterally Cardio Rate: tachycardic GI soft to palpation, non-tender and non-distended Extremity General Extremity: edema Skin no rashes or lesions noted Skin Narrative: no splinter hemorrhages on fingers. HD cath in chest. Neuro Neuro Narrative: not following commands, moving all exts Lab / Micro Data Attestation: I reviewed the patient's lab results. 01/08/24 06:20 01/08/24 06:20 Labs: Laboratory Results - last 24 hr 01/07/24 08:23: TSH 1.69 01/07/24 12:00: MRSA (PCR) Negative 01/07/24 16:41: POC Glucose 90 01/08/24 06:20: WBC 7.0, RBC 3.50 L, Hgb 9.3 L, Hct 31.7 L, MCV 90.6, MCH 26.6 L, MCHC 29.3 L, RDW Std Deviation 58.2 H, RDW Coeff of Vlad 18.5 H, Plt Count 30 L*, MPV 11.6, Immature Gran % (Auto) 2.000 H, Neut % (Auto) 73.0 H, Lymph % (Auto) 14.2 L, [place] % (Auto) 10.3 H, Eos % (Auto) 0.4, Baso % (Auto) 0.1, Absolute Neuts (auto) 5.1, Absolute Lymphs (auto) 0.99, Nucleated RBC % 0.6, Diff Path Review November, Platelet Estimate MKD DEC, Sodium 143, Potassium 4.4, Chloride 111 H, Carbon Dioxide 19.0 L, Anion Gap 13, BUN 68 H, Creatinine 5.66 H, Estim Creat Clear Calc 11.98, Est GFR (MDRD) Af Amer 10 L, Est GFR (MDRD) Non-Af 8 L, BUN/Creatinine Ratio 12.0, Glucose 93, Calcium 9.1, Phosphorus 5.5 H, Magnesium 1.7, Total Bilirubin 0.60, AST 81 H, ALT 72 H, Alkaline Phosphatase 70, Total Protein 6.4, Albumin 2.4 L, Globulin 4.0, Albumin/Globulin Ratio 0.6 L Micro: Microbiology 01/07/24 08:40 Blood Culture (Wb) - Left Hand Bacteria Detection (PCR) - Final Vancomycin Resist. E. faecalis 01/07/24 08:40 Blood Culture (Wb) - Left Hand Blood Culture - Preliminary 01/07/24 08:37 Blood Culture (Wb) - Anticubital Left Blood Culture - Preliminary ABG Data ABG results: ABG 01/07/24 01/08/24 12:19 07:02 Specimen Type ART ART Sample Site R Radial L Radial pH 7.32 L 7.38 Bicarbonate Actual 22.8 17.8 L Total CO2 24 19 Base Excess -3 L -7 L O2 Saturation 97 94 L O2 % 21.0 30.0 ABG pCO2 44.3 30.3 L ABG pO2 97 70 L Madi Test Positive Positive O2 Delivery Device Room Air BiPAP Vent Mode Not entered Not entered Clinical Comments I14 E6 Rhythm Strip Rhythm Strip: Sinus Rhythm Rate: 60 Ectopy: None Imaging Radiology Impression Abdomen/Pelvis CT 01/07/24 11:28 IMPRESSION: Increased markings at the lung bases slightly worse on the left side suggestive of bibasilar atelectasis and/or infiltrates. Splenomegaly. Atherosclerotic calcification of the abdominal aorta and major visceral branches. Small retroperitoneal lymph nodes. Electronically Signed: Maximo Obrien MD at 12:14 EDT , Chest X-Ray 01/08/24 08:50 IMPRESSION: Mild degree of vascular congestion. Electronically Signed: Maximo Obrien MD at 9:43 EDT ,
[2024-01-08] MEDS: Nystatin Powder 15gm Bottle 1 APPLIC TOPICAL ×2 (10:43→20:30)
--- NOTE | 2024-01-08 10:55 | CASEMGMT ---
Satish does not have a copy of Healthcare POA for patient. WES called patient's brother Al. Al said he has a copy of the documents. He has been sick all week so is not sure how he will get them to [facility]. Al said he will try and take pictures of the document and email them to EWS. WES provided Al with 's email address. Varsha BELTRAN
[2024-01-08 11:39] LABS: Bedside Glucose 66 mg/dL (74-106)
[2024-01-08] MEDS: Dextrose 10%-Water 250 ML 999 ML IV (11:43)
[2024-01-08] MEDS: prednisoLONE eye drops (5 mL) 1 DROP OPTH.BTL 1 DRP OPHTHALMIC ×2 (11:44→20:30)
[2024-01-08] MEDS: NORMAL SALINE 0.9% IV (11:46)
[2024-01-08] MEDS: DAPTOMYCIN IV (11:46)
[2024-01-08] MEDS: Heparin 10,000 UNITS/10 ML Vial IV (11:56)
[2024-01-08] MEDS: 0.9% Normal Saline 1,000 ML IV.SOLN. 1000 ML OPERA.SITE (12:12)
[2024-01-08] MEDS: PureFlow B 2K Dialysis Soln 1 BAG 6 BAG PF (12:12)
[2024-01-08 12:25] LABS: Bedside Glucose 121 mg/dL (74-106)
--- NOTE | 2024-01-08 13:43 | CASEMGMT ---
Patient's brother Al emailed patient's Healthcare Power of Finance Controller and Healthcare Living Will. SW placed these documents in patient's chart. WES updated RN. Patient's brother Al is patient's Healthcare Power of Finance Controller. Varsha BELTRAN
--- NOTE | 2024-01-08 13:58 | PCM.PN.HOSP ---
Reason for Visit Reason for Visit: Altered mental status Subjective Subjective Patient still markedly confused. No significant issues overnight other than hypotension which is now requiring 10 mics Levophed and she now has a left central venous catheter. Was compliant with BiPAP overnight. Objective Data Objective Data Vital Signs: Vital Signs Temp Pulse Resp BP Pulse Ox O2 Del Method O2 Flow Rate 99.9 F H 101 H 19 H 145/58 H 100 Nasal Cannula 6 01/08/24 12:00 01/08/24 12:00 01/08/24 12:00 01/08/24 12:15 01/08/24 12:00 01/08/24 12:00 01/08/24 12:00 FiO2 30 01/08/24 06:30 Oxygen Flow Rate (L/min) 6 Oxygen Delivery Method Nasal Cannula Weight: 107.5 kg Body Mass Index (BMI) 39.4 Intake & Output: Intake and Output for Last 24 Hours 01/06/24 01/07/24 01/08/24 23:59 23:59 23:59 Intake Total 3749.58 / 3752.86 610.92 / 610.92 Output Total 2265 / 2265 Balance 3744.58 / 3732.86 -1654.08 / -1654.08 Lab / Micro Data 01/08/24 06:20 01/08/24 06:20 Labs: Laboratory Results - last 24 hr 01/07/24 16:41: POC Glucose 90 01/08/24 06:20: WBC 7.0, RBC 3.50 L, Hgb 9.3 L, Hct 31.7 L, MCV 90.6, MCH 26.6 L, MCHC 29.3 L, RDW Std Deviation 58.2 H, RDW Coeff of Vlad 18.5 H, Plt Count 30 L*, MPV 11.6, Immature Gran % (Auto) 2.000 H, Neut % (Auto) 73.0 H, Lymph % (Auto) 14.2 L, [place] % (Auto) 10.3 H, Eos % (Auto) 0.4, Baso % (Auto) 0.1, Absolute Neuts (auto) 5.1, Absolute Lymphs (auto) 0.99, Nucleated RBC % 0.6, Diff Path Review November, Platelet Estimate MKD DEC, Sodium 143, Potassium 4.4, Chloride 111 H, Carbon Dioxide 19.0 L, Anion Gap 13, BUN 68 H, Creatinine 5.66 H, Estim Creat Clear Calc 11.98, Est GFR (MDRD) Af Amer 10 L, Est GFR (MDRD) Non-Af 8 L, BUN/Creatinine Ratio 12.0, Glucose 93, Calcium 9.1, Phosphorus 5.5 H, Magnesium 1.7, Total Bilirubin 0.60, AST 81 H, ALT 72 H, Alkaline Phosphatase 70, Total Protein 6.4, Albumin 2.4 L, Globulin 4.0, Albumin/Globulin Ratio 0.6 L 01/08/24 11:20: POC Glucose 66 L 01/08/24 12:07: POC Glucose 121 H Micro: Microbiology 01/07/24 09:17 Urine Catheter - Catheter Urine Culture - Preliminary Gram positive organism 01/07/24 08:37 Blood Culture (Wb) - Anticubital Left Blood Culture - Preliminary GPC Poss Enterococcus sp 01/07/24 08:40 Blood Culture (Wb) - Left Hand Bacteria Detection (PCR) - Final Vancomycin Resist. E. faecalis 01/07/24 08:40 Blood Culture (Wb) - Left Hand Blood Culture - Preliminary Enterococcus faecalis ABG Data ABG results: ABG 01/08/24 07:02 Specimen Type ART Sample Site L Radial pH 7.38 Bicarbonate Actual 17.8 L Total CO2 19 Base Excess -7 L O2 Saturation 94 L O2 % 30.0 ABG pCO2 30.3 L ABG pO2 70 L Madi Test Positive O2 Delivery Device BiPAP Vent Mode Not entered Clinical Comments I14 E6 Radiography Diagnostic Testing: Radiology Impression Chest X-Ray 01/08/24 08:50 IMPRESSION: Mild degree of vascular congestion. Electronically Signed: Maximo Obrien MD at 9:43 EDT , Rhythm Strip Rhythm Strip: Sinus Rhythm Rate: 60 Ectopy: None Physical Exam Const no apparent distress and well nourished; Negative for oriented x3, average body habitus or healthy appearing Constitutional Narrative: Patient lying in bed with no meaningful interaction but moaning intermittently morbidly obese, white female, appears much older than stated age, appears ill and toxic, dialysis nurse at bedside Orientation / Consciousness: confused, disoriented and lethargic HEENT normocephalic, head/scalp atraumatic and hearing grossly normal bilaterally; Negative for moist oral mucous membranes HEENT Narrative: Mucous membranes remain dry but improved since yesterday Resp normal respiratory effort, no retractions, no use of accessory muscles and clear to auscultation bilaterally Resp Narrative: distant Auscultation: Negative for rales, rhonchi or wheezes Cardio regular rate, regular rhythm, S1 normal heart sound, S2 normal heart sound, no murmurs, no rub, no gallops and no clicks GI normal to inspection, nondistended, normoactive bowel sounds, soft to palpation and non-tender GI Narrative: Large protuberant abdomen Extremity Extremity Narrative: Trace bilateral lower extremity edema that is pitting in nature, no cyanosis or clubbing Neuro moves all extremities and no focal motor deficits Speech: Negative for speech normal Psych Psych Narrative: Affect is flat and patient appears ill Assessment & Plan Assessment/Plan (1) Hypotension: (2) UTI (urinary tract infection): (3) Thrombocytopenia: (4) Toxic metabolic encephalopathy: PLAN: Plan Septic shock secondary to VRE UTI and bacteremia -Patient now meets criteria for sepsis with altered mental status, hypoxia, lactic acidosis and bacteremia with VRE/patient was also hypothermic Preliminary cultures for both blood and urine are positive for VRE -Antibiotics were transitioned from vancomycin to daptomycin and cefepime was continued -On pressors at 25 mics per minute currently -Did receive fluids at 30 cc/kg of body weight with initial response however pressures deteriorated and pressors required initiation last evening -Continue midodrine but increase to 5 3 times daily -Repeat cultures are pending for tomorrow morning -Echocardiogram is pending -Will need removal of tunneled dialysis catheter -Discussed with Dr. Burton -ID and pulmonary/critical care medicine following appreciate input Toxic/metabolic encephalopathy -Reportedly baseline alert and oriented x 3-4 -Remains markedly confused -Secondary to severe infection as above -Continue to monitor -ABG did not show hypercapnia -CT of the brain is unremarkable -TSH within normal limits Hypothermia -Likely due to sepsis -TSH within normal limits -Bear hugger per protocol -Temperature seem to be stabilizing Thrombocytopenia-acute on chronic -Baseline platelet counts appear to be 70 and 100,000 -Stable at 30,000 -Repeat CBC in a.m. -Will hold chemoprophylaxis with subcu heparin at this time due to thrombocytopenia but once greater than 75,000 initiate subcu DVT prophylaxis Dehydration -Resolved End-stage renal disease -Dialysis dependent -Has temporary line in right chest -Will need to be removed with VRE bacteremia -Typical dialysis is MWF -Nephrology following-appreciate input Chronic hypoxic respiratory failure/SACHIN -BiPAP nocturnally -Continue home oxygen as ordered -Typically on 4 L per previous documentation at baseline -As needed bronchodilator therapy Chronic anemia -Baseline appears to be between 7.5 and 9 -Currently 9.3 despite aggressive fluid resuscitation -No signs of acute blood loss Chronic debility secondary to comorbid conditions -PT/OT to follow once more medically stable -Case management/social work consulted for assistance with discharge planning DM-2 -Had recent hemoglobin A1c in September and was 7.6 -Patient is currently not on anything for her blood sugars as an outpatient -Add sliding scale -Accu-Cheks as ordered -Cardiac/carb controlled diet as patient able to partake History of dysphagia -Will continue mechanical soft thin liquid diet -May need speech therapy involvement depending on how she does with this diet Hypothyroidism -Continue home Synthroid GERD/esophageal stenosis/history of erosive gastropathy -Continue home Protonix -Continue home Carafate -Hemoglobin is stable Pulmonary hypertension -Likely related to morbid obesity and obstructive sleep apnea -Most recent echo shows a right ventricular systolic pressure of 40 mmHg -Continue dialysis for volume status management History of HFpEF -Currently compensated Restless leg syndrome -Continue ropinirole Diabetic neuropathy -Will hold gabapentin currently with somnolence Hyperlipidemia -Continue home fenofibrate -Continue home atorvastatin Obesity -BMI 39.5 -Recommend weight loss -Complicates treatment, prognosis, outcomes Depression -Continue home mirtazapine DVT prophylaxis -SCDs -chemoprophylaxis on hold due to thrombocytopenia CODE STATUS -Full code Charges/Coding Visit Charges Inpatient E&M: 56346 Subs Hosp L2
[2024-01-08 14:17] LABS: Pathologist Review Reviewed
[2024-01-08] MEDS: Norepinephrine 8 MG in 0.9% Normal Saline (250mL Bag) 242 ML 37.5 MG CONT INF (14:34)
[2024-01-08 15:32] LABS: Pathologist Review Reviewed
--- NOTE | 2024-01-08 16:25 | PCM.CONS.R ---
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 Patient presented to hospital from SNF on 01/07/2024 with altered mental status and hypotension. She was diagnosed with septic shock secondary to VRE bacteremia and UTI. Nephrology is following for ESRD. ESRD. Patient normally dialyzes at [facility] on MWF schedule. Patient missed dialysis on 01/07/2024 because of presentation to the hospital. Patient was dialyzed earlier today. Will plan on dialyzing patient again tomorrow before tunneled dialysis catheter is removed. Patient can then have 48 hours of line holiday prior to replacement of catheter on 01/12/2024. Septic shock secondary to VRE bacteremia. Antimicrobial treatment as per hospital medicine and ID services. She will eventually need TDC removal. Barrier to TDC removal is thrombocytopenia which appears to be chronic. However, platelet is less than 50 K. Recheck tomorrow. Nephrology plan as discussed with Dr. Haylie Szymanski. HPI Consult Data Date of Consult: 01/08/24 HPI Narrative Reason for Consultation: ESRD HPI Narrative: The patient is a 63-year-old female with past history of ESRD, type 2 diabetes mellitus, HFpEF, COPD, SACHIN, hypothyroidism, and hyperlipidemia. Patient presented to the hospital on 01/07/2024 from SNF with altered mental status and hypotension. Patient is admitted to ICU because of septic shock attributed to UTI with VRE bacteremia. Nephrology is asked to see the patient because of ESRD and need for dialysis treatment. The patient usually dialyzes at [facility] on MWF schedule. Patient is confused and cannot provide history. She remains on IV vasopressor today although requirements been coming down per my discussion with nursing staff. [facility] Medical History Sepsis Acute on chronic anemia CKD (chronic kidney disease) Hypoxemia CHF (congestive heart failure) Respiratory failure with hypoxia and hypercapnia Diabetes Current use of insulin Restless legs COPD (chronic obstructive pulmonary disease) History of stress test Irregular heartbeat MSSA bacteremia Congestive heart failure Gastroparesis Anxiety CPAP (continuous positive airway pressure) dependence Sleep apnea On home oxygen therapy Chronic kidney disease Anemia Chest pain (HFpEF) heart failure with preserved ejection fraction Pleural effusion, left Pulmonary edema Chronic kidney disease Malaise History of fever GASTON (acute kidney injury) Retinal hemorrhage Lower extremity edema History of renal insufficiency History of diabetes mellitus Diabetes mellitus with diabetic polyneuropathy SACHIN (obstructive sleep apnea) Chronic acquired lymphedema Chronic anemia CKD (chronic kidney disease), stage III HLD (hyperlipidemia) HTN (hypertension) Morbid obesity Diabetes mellitus, type 2 Anxiety and depression Hypoxia Hypothyroidism Home Medications ?Medication ?Instructions ?Recorded ?Last Taken ?Type atorvastatin 10 mg tablet 10 mg PO QHS cholesterol 09/24/22 04/13/23 History fenofibrate nanocrystallized 48 mg 48 mg PO DAILY cholesterol 09/24/22 04/13/23 History tablet (Tricor) levothyroxine 150 mcg tablet 150 mcg PO DAILY@0600 THYROID 03/05/23 Unknown History ropinirole 4 mg tablet 4 mg PO QHS restless legs 03/05/23 05/01/23 History pen needle, diabetic 31 gauge x 04/14/23 Unknown History 1/4 (Easy Touch) pantoprazole 40 mg tablet,delayed 40 mg PO BID heartburn #60 tabs 05/08/23 Unknown Rx release sucralfate 1 gram tablet (Carafate) 1 g PO BID heartburn #60 tabs 05/08/23 Unknown Rx acetaminophen 325 mg tablet 650 mg PO Q6H PRN pain 08/26/23 Unknown History difluprednate 0.05 % eye drops 1 drp ophthalmic (eye) 4X/DAY 08/26/23 Unknown History bleeding behind eyes nystatin 100,000 unit/gram topical 1 applic topical BID yeast 08/26/23 Unknown History powder (Nystop) artificial tears(hypromellose) 0.3 1 drp EACH EYE Q2H PRN dry eye(s) 09/07/23 Unknown History % eye gel flash glucose sensor (FreeStyle 09/16/23 Unknown History Bandar 2 Sensor kit) gabapentin 300 mg capsule 300 mg PO QHS #0 caps 09/25/23 Unknown Rx midodrine 10 mg tablet 30 mg PO MOWEFR 12/31/23 Unknown History sennosides 8.6 mg-docusate sodium 2 tab-cap PO DAILY PRN constipation 12/31/23 Unknown History 50 mg tablet (2-in-1 Laxative) zinc sulfate 50 mg zinc (220 mg) 50 mg PO DAILY 12/31/23 Unknown History tablet B complex-vitamin C-folic acid ER 1 tab PO DAILY 01/07/24 Unknown History 400 mcg tablet,extended release cefuroxime axetil 250 mg tablet 250 mg PO QHS INFECTION 01/07/24 Unknown History doxycycline hyclate 100 mg tablet 100 mg PO BID 01/07/24 Unknown History midodrine 5 mg tablet 5 mg PO TIDCM 01/07/24 Unknown History mirtazapine 15 mg tablet 15 mg PO QHS 01/07/24 Unknown History Allergy/AdvReac Type Severity Reaction Status Date / Time No Known Allergies Allergy Verified 09/16/23 08:52 Family History Mother Heart disease Hypertension Diabetes Father Prostate cancer Surgical History H/O cataract removal with insertion of prosthetic lens History of surgery on lower extremity History of cholecystectomy Social History housing: prison Smoking Status: Never smoker alcohol intake: never substance use type: does not use ROS ROS Narrative Cannot do ROS given her encephalopathy Physical Exam Narrative General: Encephalopathic, does not follow commands. HEENT: Normocephalic, atraumatic. Mucous membrane dry without erythema. PERRLA. Neck: Supple, no JVD. Trachea is midline. No thyromegaly or lymphadenopathy. Cardiovascular: Normal S1, S2. No rubs, murmurs, or gallops. Respiratory: Lungs are clear to auscultation anteriorly. Abdomen: Normal bowel sounds, soft, nontender, no guarding or rebound, no organomegaly. Extremities: No clubbing, cyanosis, or edema. Musculoskeletal: Full passive range of motion, no joint swelling. Skin: Warm and dry, no rash. Lab / Micro Data 01/08/24 06:20 01/08/24 06:20 Labs: Laboratory Results - last 24 hr 01/07/24 08:23: Diff Path Review Reviewed 01/07/24 16:41: POC Glucose 90 01/08/24 06:20: WBC 7.0, RBC 3.50 L, Hgb 9.3 L, Hct 31.7 L, MCV 90.6, MCH 26.6 L, MCHC 29.3 L, RDW Std Deviation 58.2 H, RDW Coeff of Vlad 18.5 H, Plt Count 30 L*, MPV 11.6, Immature Gran % (Auto) 2.000 H, Neut % (Auto) 73.0 H, Lymph % (Auto) 14.2 L, [place] % (Auto) 10.3 H, Eos % (Auto) 0.4, Baso % (Auto) 0.1, Absolute Neuts (auto) 5.1, Absolute Lymphs (auto) 0.99, Nucleated RBC % 0.6, Diff Path Review Reviewed, Platelet Estimate MKD DEC, Sodium 143, Potassium 4.4, Chloride 111 H, Carbon Dioxide 19.0 L, Anion Gap 13, BUN 68 H, Creatinine 5.66 H, Estim Creat Clear Calc 11.98, Est GFR (MDRD) Af Amer 10 L, Est GFR (MDRD) Non-Af 8 L, BUN/Creatinine Ratio 12.0, Glucose 93, Calcium 9.1, Phosphorus 5.5 H, Magnesium 1.7, Total Bilirubin 0.60, AST 81 H, ALT 72 H, Alkaline Phosphatase 70, Total Protein 6.4, Albumin 2.4 L, Globulin 4.0, Albumin/Globulin Ratio 0.6 L 01/08/24 11:20: POC Glucose 66 L 01/08/24 12:07: POC Glucose 121 H Micro: Microbiology 01/07/24 09:17 Urine Catheter - Catheter Urine Culture - Preliminary Gram positive organism 01/07/24 08:37 Blood Culture (Wb) - Anticubital Left Blood Culture - Preliminary GPC Poss Enterococcus sp 01/07/24 08:40 Blood Culture (Wb) - Left Hand Bacteria Detection (PCR) - Final Vancomycin Resist. E. faecalis 01/07/24 08:40 Blood Culture (Wb) - Left Hand Blood Culture - Preliminary Enterococcus faecalis ABG Data ABG results: ABG 01/08/24 07:02 Specimen Type ART Sample Site L Radial pH 7.38 Bicarbonate Actual 17.8 L Total CO2 19 Base Excess -7 L O2 Saturation 94 L O2 % 30.0 ABG pCO2 30.3 L ABG pO2 70 L Madi Test Positive O2 Delivery Device BiPAP Vent Mode Not entered Clinical Comments I14 E6 Rhythm Strip Rhythm Strip: Sinus Rhythm Rate: 60 Ectopy: None Imaging Radiology Impression Chest X-Ray 01/08/24 08:50 IMPRESSION: Mild degree of vascular congestion. Electronically Signed: Maximo Obrien MD at 9:43 EDT ,
[2024-01-08 17:18] LABS: Bedside Glucose 127 mg/dL (74-106)
[2024-01-09] VITALS (61 sets, daily range): BP systolic 82–217; BP diastolic 35–112; PULSE 82–104; RESP 12–27; TEMP 35.6–37.1; O2SAT 87–100; BMI 39.1; BMI 38.7
--- NOTE | 2024-01-09 00:09 | CPS ---
RN attempted to place patient on bipap, and pt became agitated and could not tolerate
[2024-01-09 00:28] LABS: Bedside Glucose 144 mg/dL (74-106)
[2024-01-09 03:35] LABS: Absolute Lymphocyte Count 1.84 X10^3/uL (0.83-4.51); Absolute Neutrophil Count 23.2 X10^3/uL (2.0-7.7); Basophil# 0.09 X10^3/uL; Basophil% 0.3 % (0-1); Eosinophil# 0.03 X10^3/uL; Eosinophils% 0.1 % (0-5); Hematocrit 30.2 % (37-47); Hemoglobin 8.9 g/dL (12.0-15.0); Lymphocyte # 1.84 X10^3/ul (0.83-4.51); Lymphocyte % 6.7 % (19-41); Mean Corp Hgb Conc 29.5 g/dL (32-36); Mean Corpuscular Hgb 26.9 pg (27.0-32.0); Mean Corpuscular Volume 91.2 fL (81-99); Mean Platelet Vol. 10.7 fl (6.2-12.0); Monocyte# 1.41 X10^3/uL; Monocyte% 5.1 % (0-10); NRBC Flagged by Analyzer 0.1 % (0-5); Neutrophil # 23.15 X10^3/uL (2.7-7.7); Neutrophil % 83.9 % (47-70); POSITIVE COUNT YES; POSITIVE DIFFERENTIAL YES; RBC Distribution Width CV 18.7 % (11.6-14.6); RBC Distribution Width SD 61.2 fl (35.1-43.9); Red Blood Count 3.31 M/mm3 (4.2-5.4); White Blood Count 27.6 K/mm3 (4.4-11.0)
[2024-01-09 03:47] LABS: Differential Indicated SCAN CRITERIA MET; Platelet Count 28 K/mm3 (150-450)
[2024-01-09 03:51] LABS: ALB/GLOB Ratio 0.6 RATIO (0.9-2.4); AST(SGOT) 47 U/L (15-37); Alanine Aminotransfer ALT/SGPT 53 U/L (13-56); Albumin, Serum 2.2 g/dL (3.2-5.0); Alkaline Phosphatase 83 U/L (45-117); Anion Gap 12 (5-15); BUN 54 mg/dL (7-18); BUN/Creat Ratio 11.8 RATIO (10-20); Calcium,Total 9.1 mg/dL (8.5-10.1); Chloride 108 mmol/L (98-107); Creatinine, Serum 4.59 mg/dL (0.55-1.02); EST Glomerular Filtration Rate 10 mL/min (>60); Est Glom Filt Rate - Afr Amer 12 mL/min (>60); Estimated Creatinine Clearance 14.63 ml/min; Globulin 3.7 g/dL (2.2-4.2); Glucose 203 mg/dL (74-106); Potassium 3.8 mmol/L (3.5-5.1); Protein, Total 5.9 g/dL (6.4-8.2); Sodium Level 143 mmol/L (136-145)
[2024-01-09 04:41] LABS: Differential Comment SCANNED; Platelet Estimate MKD DEC (ADEQ)
--- NOTE | 2024-01-09 07:07 | PCM.PN.INT ---
Assessment & Plan Assessment/Plan (1) Sepsis: PLAN: Plan RECOMMENDATIONS: 1. Continue antimicrobials per ID recommendations. 2. Continue Levophed to maintain hemodynamic stability. 3. Dialysis support per nephrology recommendations. 4. Surgery consultation to evaluate for dialysis catheter removal. 5. Supplemental oxygen to maintain saturations at or above 90%. 6. Recommend BiPAP therapy with naps and nightly. IMPRESSIONS: 1. Septic shock secondary to VRE cystitis and bacteremia The patient presented to the hospital with sepsis due to urinary tract source of infection, along with secondary bacteremia, with acute sepsis related organ dysfunction as evidenced by altered mental status, persistent hypotension and thrombocytopenia. She ultimately developed fluid refractory hypotension, which did require the initiation of vasopressor support. Infectious diseases currently following to assist with antimicrobial management. In light of her current clinical situation, she will require general surgery evaluation for consideration of tunneled dialysis catheter removal, in order to allow for a line holiday. 2. Toxic metabolic encephalopathy Likely related to #1. Anticipate improvement in mental status with resolution of presenting infection. Will continue to monitor the patient clinically. Presenting TSH was within normal limits. 3. End-stage renal disease on hemodialysis Nephrology following to assist with hemodialysis needs. 4. History of anemia/thrombocytopenia/obesity/hypothyroidism/diabetes mellitus/chronic kidney disease/GERD/obstructive sleep apnea Complicates care, management, recovery and prognosis. Continue supportive measures as noted above. The patient is to remain n.p.o. for now. TIME: 32 minutes, independent of procedures, was spent addressing the patient's septic shock, toxic metabolic encephalopathy, end-stage renal disease, thrombocytopenia, review of all data and collaboration with care team. Subjective Subjective The patient was seen and examined at the bedside this morning. Events from the last 24 hours have been reviewed. The patient is currently afebrile and maintaining appropriate oxygen saturations on 4 L/min via nasal cannula. The patient was not able to tolerate PAP therapy overnight. She remains disoriented and confused. The patient is still requiring Levophed at 10 mcg/min. White count remains elevated at 27,000. Platelet count remains low at 28,000. Surgery was consulted to evaluate the patient for removal of her tunneled dialysis catheter to allow for a line holiday. Objective Data Objective Data The patient's most recent lab work, culture data and imaging studies have all been personally reviewed. Preliminary blood cultures dated January 06 were positive for VRE. Vital Signs: Vital Signs Temp Pulse Resp BP Pulse Ox O2 Del Method O2 Flow Rate 98.8 F 82 15 113/39 L 100 Nasal Cannula 4 01/09/24 04:00 01/09/24 05:15 01/09/24 05:00 01/09/24 05:15 01/09/24 05:00 01/09/24 05:00 01/09/24 05:00 FiO2 30 01/08/24 06:30 Oxygen Flow Rate (L/min) 4 Oxygen Delivery Method Nasal Cannula Weight: 234 lb 12.677 oz Body Mass Index (BMI) 39.1 Intake & Output: Intake and Output for Last 24 Hours 01/07/24 01/08/24 01/09/24 23:59 23:59 23:59 Intake Total 3749.58 / 3752.86 1032.55 / 1038.18 120.06 / 120.06 Output Total 2385 / 2385 Balance 3744.58 / 3732.86 -1352.45 / -1346.82 120.06 / 120.06 Lab / Micro Data Attestation: I reviewed the patient's lab results. 01/09/24 03:20 01/09/24 03:20 Labs: Laboratory Results - last 24 hr 01/07/24 08:23: Diff Path Review Reviewed 01/08/24 06:20: Plt Count 30 L*, Diff Path Review Reviewed, Platelet Estimate MKD DEC, Sodium 143, Potassium 4.4, Chloride 111 H, Carbon Dioxide 19.0 L, Anion Gap 13, BUN 68 H, Creatinine 5.66 H, Estim Creat Clear Calc 11.98, Est GFR (MDRD) Af Amer 10 L, Est GFR (MDRD) Non-Af 8 L, BUN/Creatinine Ratio 12.0, Glucose 93, Calcium 9.1, Phosphorus 5.5 H, Magnesium 1.7, Total Bilirubin 0.60, AST 81 H, ALT 72 H, Alkaline Phosphatase 70, Total Protein 6.4, Albumin 2.4 L, Globulin 4.0, Albumin/Globulin Ratio 0.6 L 01/08/24 11:20: POC Glucose 66 L 01/08/24 12:07: POC Glucose 121 H 01/08/24 16:59: POC Glucose 127 H 01/09/24 00:09: POC Glucose 144 H 01/09/24 03:20: WBC 27.6 H, RBC 3.31 L, Hgb 8.9 L, Hct 30.2 L, MCV 91.2, MCH 26.9 L, MCHC 29.5 L, RDW Std Deviation 61.2 H, RDW Coeff of Vlad 18.7 H, Plt Count 28 L*, MPV 10.7, Immature Gran % (Auto) 3.900 H, Neut % (Auto) 83.9 H, Lymph % (Auto) 6.7 L, [place] % (Auto) 5.1, Eos % (Auto) 0.1, Baso % (Auto) 0.3, Absolute Neuts (auto) 23.2 H, Absolute Lymphs (auto) 1.84, Nucleated RBC % 0.1, Differential Comment SCANNED, Diff Path Review November, Platelet Estimate MKD DEC, Sodium 143, Potassium 3.8, Chloride 108 H, Carbon Dioxide 23.0, Anion Gap 12, BUN 54 H, Creatinine 4.59 H, Estim Creat Clear Calc 14.63, Est GFR (MDRD) Af Amer 12 L, Est GFR (MDRD) Non-Af 10 L, BUN/Creatinine Ratio 11.8, Glucose 203 H, Calcium 9.1, Total Bilirubin 0.60, AST 47 H, ALT 53, Alkaline Phosphatase 83, Total Protein 5.9 L, Albumin 2.2 L, Globulin 3.7, Albumin/Globulin Ratio 0.6 L Micro: Microbiology 01/07/24 09:17 Urine Catheter - Catheter Urine Culture - Preliminary Gram positive organism 01/07/24 08:37 Blood Culture (Wb) - Anticubital Left Blood Culture - Preliminary GPC Poss Enterococcus sp 01/07/24 08:40 Blood Culture (Wb) - Left Hand Bacteria Detection (PCR) - Final Vancomycin Resist. E. faecalis 01/07/24 08:40 Blood Culture (Wb) - Left Hand Blood Culture - Preliminary Enterococcus faecalis ABG Data ABG results: ABG 01/08/24 07:02 Specimen Type ART Sample Site L Radial pH 7.38 Bicarbonate Actual 17.8 L Total CO2 19 Base Excess -7 L O2 Saturation 94 L O2 % 30.0 ABG pCO2 30.3 L ABG pO2 70 L Madi Test Positive O2 Delivery Device BiPAP Vent Mode Not entered Clinical Comments I14 E6 Radiography Diagnostic Testing: Radiology Impression Echocardiogram 01/08/24 07:01 Interpretation Summary The estimated ejection fraction is 70 %. Unable to assess diastolic dysfunction. Ordering Physician: Gerson Cox Referring Physician: YG HINSON Performed By: Varsha Aguilar RCS Chest X-Ray 01/08/24 08:50 IMPRESSION: Mild degree of vascular congestion. Electronically Signed: Maximo Obrien MD at 9:43 EDT Reading Location ID and State: [facility] / ID , Service support , Rhythm Strip Rhythm Strip: Sinus Rhythm Rate: 60 Ectopy: None Physical Exam Const Constitutional Narrative: The patient is encephalopathic, audibly moaning and yelling and yelling, but will not follow any commands. General Appearance: ill appearing HEENT normocephalic and head/scalp atraumatic Eyes PERRL, EOMs intact bilaterally and conjunctivae normal Neck supple General: trachea midline Chest inspection of chest normal Resp Auscultation: rhonchi; Negative for rales or wheezes Cardio regular rate, regular rhythm, S1 normal heart sound and S2 normal heart sound GI normal to inspection, nondistended, normoactive bowel sounds Extremity General Extremity: edema; Negative for clubbing Skin no rashes or lesions noted Neuro moves all extremities and no focal motor deficits Psych Mood & Affect: flat affect Charges/Coding Procedures Hospitalists Procedures: [id number] Critical Care 1st Hr
[2024-01-09 07:55] LABS: Bedside Glucose 144 mg/dL (74-106)
--- NOTE | 2024-01-09 08:23 | CON.PCM.SX_ITS ---
Assessment & Plan Assessment/Plan (1) VRE bacteremia: PLAN: The patient has bacteremia and I was consulted to remove the tunneled dialysis catheter. Unfortunately the patient's platelet count is under 50. Today is 28. Our service will be available to remove the tunneled dialysis catheter when as the platelets get over 50. Brian Burton MD Pager: [facility] [address] [place] [address], [address] [place] [address] Office: HPI Consult Data Date of Consult: 01/09/24 HPI Narrative HPI Narrative: TOBIN BIGGS, is a 63 F who presents With sepsis. The patient was found to have an infection of her last dialysis catheter was changed over at her outside hospital. She presents again with bacteremia and there is concern for infection of the dialysis catheter. Currently she is thrombocytopenic. [facility] Medical History Sepsis Acute on chronic anemia CKD (chronic kidney disease) Hypoxemia CHF (congestive heart failure) Respiratory failure with hypoxia and hypercapnia Diabetes Current use of insulin Restless legs COPD (chronic obstructive pulmonary disease) History of stress test Irregular heartbeat MSSA bacteremia Congestive heart failure Gastroparesis Anxiety CPAP (continuous positive airway pressure) dependence Sleep apnea On home oxygen therapy Chronic kidney disease Anemia Chest pain (HFpEF) heart failure with preserved ejection fraction Pleural effusion, left Pulmonary edema Chronic kidney disease Malaise History of fever GASTON (acute kidney injury) Retinal hemorrhage Lower extremity edema History of renal insufficiency History of diabetes mellitus Diabetes mellitus with diabetic polyneuropathy SACHIN (obstructive sleep apnea) Chronic acquired lymphedema Chronic anemia CKD (chronic kidney disease), stage III HLD (hyperlipidemia) HTN (hypertension) Morbid obesity Diabetes mellitus, type 2 Anxiety and depression Hypoxia Hypothyroidism Home Medications ?Medication ?Instructions ?Recorded ?Last Taken ?Type atorvastatin 10 mg tablet 10 mg PO QHS cholesterol 09/24/22 04/13/23 History fenofibrate nanocrystallized 48 mg 48 mg PO DAILY cholesterol 09/24/22 04/13/23 History tablet (Tricor) levothyroxine 150 mcg tablet 150 mcg PO DAILY@0600 THYROID 03/05/23 Unknown History ropinirole 4 mg tablet 4 mg PO QHS restless legs 03/05/23 05/01/23 History pen needle, diabetic 31 gauge x 04/14/23 Unknown History 1/4 (Easy Touch) pantoprazole 40 mg tablet,delayed 40 mg PO BID heartburn #60 tabs 05/08/23 Unknown Rx release sucralfate 1 gram tablet (Carafate) 1 g PO BID heartburn #60 tabs 05/08/23 Unknown Rx acetaminophen 325 mg tablet 650 mg PO Q6H PRN pain 08/26/23 Unknown History difluprednate 0.05 % eye drops 1 drp ophthalmic (eye) 4X/DAY 08/26/23 Unknown History bleeding behind eyes nystatin 100,000 unit/gram topical 1 applic topical BID yeast 08/26/23 Unknown History powder (Nystop) artificial tears(hypromellose) 0.3 1 drp EACH EYE Q2H PRN dry eye(s) 09/07/23 Unknown History % eye gel flash glucose sensor (FreeStyle 09/16/23 Unknown History Bandar 2 Sensor kit) gabapentin 300 mg capsule 300 mg PO QHS #0 caps 09/25/23 Unknown Rx midodrine 10 mg tablet 30 mg PO MOWEFR 12/31/23 Unknown History sennosides 8.6 mg-docusate sodium 2 tab-cap PO DAILY PRN constipation 12/31/23 Unknown History 50 mg tablet (2-in-1 Laxative) zinc sulfate 50 mg zinc (220 mg) 50 mg PO DAILY 12/31/23 Unknown History tablet B complex-vitamin C-folic acid ER 1 tab PO DAILY 01/07/24 Unknown History 400 mcg tablet,extended release cefuroxime axetil 250 mg tablet 250 mg PO QHS INFECTION 01/07/24 Unknown History doxycycline hyclate 100 mg tablet 100 mg PO BID 01/07/24 Unknown History midodrine 5 mg tablet 5 mg PO TIDCM 01/07/24 Unknown History mirtazapine 15 mg tablet 15 mg PO QHS 01/07/24 Unknown History Allergy/AdvReac Type Severity Reaction Status Date / Time No Known Allergies Allergy Verified 09/16/23 08:52 Family History Mother Heart disease Hypertension Diabetes Father Prostate cancer Surgical History H/O cataract removal with insertion of prosthetic lens History of surgery on lower extremity History of cholecystectomy Social History [facility] Smoking Status: Never smoker alcohol intake: never substance use type: does not use ROS Review of Systems ROS Unobtainable: due to mental status Physical Exam Const no apparent distress HEENT normocephalic Lymph Lymphatic: no lymphadenopathy noted Resp normal respiratory effort Cardio Rate: regular rate Rhythm: regular rhythm GI soft to palpation and non-tender Lab / Micro Data 01/09/24 03:20 01/09/24 03:20 Labs: Laboratory Results - last 24 hr 01/07/24 08:23: Diff Path Review Reviewed 01/08/24 06:20: Diff Path Review Reviewed 01/08/24 11:20: POC Glucose 66 L 01/08/24 12:07: POC Glucose 121 H 01/08/24 16:59: POC Glucose 127 H 01/09/24 00:09: POC Glucose 144 H 01/09/24 03:20: WBC 27.6 H, RBC 3.31 L, Hgb 8.9 L, Hct 30.2 L, MCV 91.2, MCH 26.9 L, MCHC 29.5 L, RDW Std Deviation 61.2 H, RDW Coeff of Vlad 18.7 H, Plt Count 28 L*, MPV 10.7, Immature Gran % (Auto) 3.900 H, Neut % (Auto) 83.9 H, L ymph % (Auto) 6.7 L, [place] % (Auto) 5.1, Eos % (Auto) 0.1, Baso % (Auto) 0.3, A bsolute Neuts (auto) 23.2 H, Absolute Lymphs (auto) 1.84, Nucleated RBC % 0.1, Differential Comment SCANNED, Diff Path Review May foll, Platelet Estimate MKD DEC, Sodium 143, Potassium 3.8, Chloride 108 H, Carbon Dioxide 23.0, Anion Gap 12, BUN 54 H, Creatinine 4.59 H, Estim Creat Clear Calc 14.63, Est GFR (MDRD) Af Amer 12 L, Est GFR (MDRD) Non-Af 10 L, BUN/Creatinine Ratio 11.8, Glucose 203 H, Calcium 9.1, Total Bilirubin 0.60, AST 47 H, ALT 53, Alkaline Phosphatase 83, T otal Protein 5.9 L, Albumin 2.2 L, Globulin 3.7, Albumin/Globulin Ratio 0.6 L 01/09/24 07:37: POC Glucose 144 H Micro: Microbiology 01/07/24 09:17 Urine Catheter - Catheter Urine Culture - Preliminary Gram positive organism 01/07/24 08:37 Blood Culture (Wb) - Anticubital Left Blood Culture - Preliminary GPC Poss Enterococcus sp 01/07/24 08:40 Blood Culture (Wb) - Left Hand Bacteria Detection (PCR) - Final Vancomycin Resist. E. faecalis 01/07/24 08:40 Blood Culture (Wb) - Left Hand Blood Culture - Preliminary Enterococcus faecalis Rhythm Strip Rhythm Strip: Sinus Rhythm Rate: 60 Ectopy: None Imaging Radiology Impression Echocardiogram 01/08/24 07:01 Interpretation Summary The estimated ejection fraction is 70 %. Unable to assess diastolic dysfunction. Ordering Physician: Gerson Cox Referring Physician: YG HINSON Performed By: Varsha Aguilar RCS Chest X-Ray 01/08/24 08:50 IMPRESSION: Mild degree of vascular congestion. Electronically Signed: Maximo Obrien MD at 9:43 EDT ,
[2024-01-09] MEDS: PureFlow B 2K Dialysis Soln 1 BAG 6 BAG PF (09:21)
[2024-01-09] MEDS: 0.9% Normal Saline 1,000 ML IV.SOLN. 1000 ML OPERA.SITE (09:21)
[2024-01-09] MEDS: Norepinephrine 8 MG in 0.9% Normal Saline (250mL Bag) 242 ML 18.8 MG CONT INF (10:00)
[2024-01-09] MEDS: Nystatin Powder 15gm Bottle 1 APPLIC TOPICAL ×2 (11:12→20:39)
[2024-01-09] MEDS: prednisoLONE eye drops (5 mL) 1 DROP OPTH.BTL 1 DRP OPHTHALMIC (11:12)
--- NOTE | 2024-01-09 11:18 | PN.HOSP_ITS ---
Reason for Visit Reason for Visit: Altered mental status Subjective Subjective No significant issues overnight. Remains on Levophed however this has been weaned and now down to 10 mcg/min with blood pressure slowly improving. Patient remains encephalopathic and is combative at times. Objective Data Objective Data Vital Signs: Vital Signs Temp Pulse Resp BP Pulse Ox O2 Del Method O2 Flow Rate 97.2 F L 87 16 105/42 L 99 Nasal Cannula 2 01/09/24 08:04 01/09/24 11:04 01/09/24 11:04 01/09/24 11:04 01/09/24 11:04 01/09/24 11:04 01/09/24 11:04 FiO2 30 01/08/24 06:30 Oxygen Flow Rate (L/min) 2 Oxygen Delivery Method Nasal Cannula Weight: 106.5 kg Body Mass Index (BMI) 39.1 Intake & Output: Intake and Output for Last 24 Hours 01/07/24 01/08/24 01/09/24 23:59 23:59 23:59 Intake Total 3749.58 / 3752.86 1032.55 / 1038.18 209.36 / 209.36 Output Total 2385 / 2385 Balance 3744.58 / 3732.86 -1352.45 / -1346.82 209.36 / 209.36 Lab / Micro Data 01/09/24 03:20 01/09/24 03:20 Labs: Laboratory Results - last 24 hr 01/07/24 08:23: Diff Path Review Reviewed 01/08/24 06:20: Diff Path Review Reviewed 01/08/24 11:20: POC Glucose 66 L 01/08/24 12:07: POC Glucose 121 H 01/08/24 16:59: POC Glucose 127 H 01/09/24 00:09: POC Glucose 144 H 01/09/24 03:20: WBC 27.6 H, RBC 3.31 L, Hgb 8.9 L, Hct 30.2 L, MCV 91.2, MCH 26.9 L, MCHC 29.5 L, RDW Std Deviation 61.2 H, RDW Coeff of Vlad 18.7 H, Plt Count 28 L*, MPV 10.7, Immature Gran % (Auto) 3.900 H, Neut % (Auto) 83.9 H, L ymph % (Auto) 6.7 L, [place] % (Auto) 5.1, Eos % (Auto) 0.1, Baso % (Auto) 0.3, A bsolute Neuts (auto) 23.2 H, Absolute Lymphs (auto) 1.84, Nucleated RBC % 0.1, Differential Comment SCANNED, Diff Path Review May foll, Platelet Estimate MKD DEC, Sodium 143, Potassium 3.8, Chloride 108 H, Carbon Dioxide 23.0, Anion Gap 12, BUN 54 H, Creatinine 4.59 H, Estim Creat Clear Calc 14.63, Est GFR (MDRD) Af Amer 12 L, Est GFR (MDRD) Non-Af 10 L, BUN/Creatinine Ratio 11.8, Glucose 203 H, Calcium 9.1, Total Bilirubin 0.60, AST 47 H, ALT 53, Alkaline Phosphatase 83, T otal Protein 5.9 L, Albumin 2.2 L, Globulin 3.7, Albumin/Globulin Ratio 0.6 L 01/09/24 07:37: POC Glucose 144 H Micro: Microbiology 01/07/24 08:37 Blood Culture (Wb) - Anticubital Left Blood Culture - Final GPC Poss Enterococcus sp 01/07/24 08:40 Blood Culture (Wb) - Left Hand Bacteria Detection (PCR) - Final Vancomycin Resist. E. faecalis 01/07/24 08:40 Blood Culture (Wb) - Left Hand Blood Culture - Final Vancomycin Resist. E. faecalis 01/08/24 10:05 Blood Culture (Wb) - Other Blood Culture - Preliminary 01/07/24 09:17 Urine Catheter - Catheter Urine Culture - Preliminary Gram positive organism Radiography Diagnostic Testing: Radiology Impression Echocardiogram 01/08/24 07:01 Interpretation Summary The estimated ejection fraction is 70 %. Unable to assess diastolic dysfunction. Ordering Physician: Gerson Cox Referring Physician: YG HINSON Performed By: Varsha Aguilar RCS Rhythm Strip Rhythm Strip: Sinus Rhythm Rate: 60 Ectopy: None Physical Exam Const no apparent distress and well nourished; Negative for oriented x3, average body habitus or healthy appearing Constitutional Narrative: Obese, white female, lying in bed with eyes closed, intermittently yells out, dialysis nurse at bedside and patient is currently on dialysis, becomes agitated with examination and intermittently is combative Orientation / Consciousness: confused, disoriented and lethargic HEENT normocephalic, head/scalp atraumatic and hearing grossly normal bilaterally; Negative for moist oral mucous membranes HEENT Narrative: Lips are still mildly dry but improved hydration, oral mucous membranes are no longer parched, Mallampati 3, no thrush Resp normal respiratory effort, no retractions, no use of accessory muscles and clear to auscultation bilaterally Resp Narrative: distant Auscultation: Negative for rales, rhonchi or wheezes Cardio regular rate, regular rhythm, S1 normal heart sound, S2 normal heart sound, no murmurs, no rub, no gallops and no clicks GI normal to inspection, nondistended, normoactive bowel sounds, soft to palpation and non-tender GI Narrative: Large protuberant abdomen Extremity Extremity Narrative: Trace bilateral lower extremity edema that is pitting in nature, no cyanosis or clubbing Neuro moves all extremities and no focal motor deficits Neuro Narrative: Moves all extremities symmetrically but not following commands and markedly agitated Speech: Negative for speech normal Psych Psych Narrative: Significant agitation with intermittent combativeness Assessment & Plan Assessment/Plan (1) Hypotension: (2) UTI (urinary tract infection): (3) Thrombocytopenia: (4) Toxic metabolic encephalopathy: PLAN: Plan Septic shock secondary to VRE UTI and bacteremia -Blood and urine cultures both positive for VRE -Continue daptomycin and cefepime per infectious disease -Levophed has been weaned to 10 mics per minute from 25 mics per minute yesterday -Continue midodrine 10 mg 3 times daily -Clearance cultures are pending -Echocardiogram shows an EF of 70% with the inability to assess diastolic dysfunction and no valvular abnormalities or abscesses noted -May need CY if patient does not clear catheters -Will need removal of tunneled dialysis catheter -Discussed with Dr. Burton--> await for his plan for removal -ID and pulmonary/critical care medicine following appreciate input Toxic/metabolic encephalopathy -Reportedly baseline alert and oriented x 3-4 -Remains markedly confused -Secondary to severe infection as above -Continue to monitor -CT of the brain is unremarkable Hypothermia -Resolved Thrombocytopenia-acute on chronic -Baseline platelet counts appear to be 70 and 100,000 -Stable currently but not yet uptrending -Repeat CBC in a.m. -Will hold chemoprophylaxis with subcu heparin at this time due to thrombocytopenia but once greater than 75,000 initiate subcu DVT prophylaxis End-stage renal disease -Dialysis dependent -Has temporary line in right chest -Will need to be removed with VRE bacteremia -Typical dialysis is MWF -Nephrology following-appreciate input--> discussed with Dr. Max Wise Chronic hypoxic respiratory failure/SACHIN -BiPAP nocturnally--> patient is noncompliant at baseline with nocturnal BiPAP -Continue home oxygen as ordered -Typically on 4 L per previous documentation at baseline -As needed bronchodilator therapy Chronic anemia -Baseline appears to be between 7.5 and 9 -Currently stable at 8.9 -No signs of acute blood loss Chronic debility secondary to comorbid conditions -PT/OT to follow once more medically stable -Case management/social work consulted for assistance with discharge planning DM-2 -Had recent hemoglobin A1c in September and was 7.6 -Patient is currently not on anything for her blood sugars as an outpatient -May need to add low-dose basal insulin if blood sugars remain elevated fasting--> 200 today if remains elevated tomorrow we will dose with some Levemir -Add sliding scale -Accu-Cheks as ordered -Cardiac/carb controlled diet as patient able to partake History of dysphagia -Will continue mechanical soft thin liquid diet -May need speech therapy involvement depending on how she does with this diet Hypothyroidism -Continue home Synthroid GERD/esophageal stenosis/history of erosive gastropathy -Continue home Protonix -Continue home Carafate -Hemoglobin is stable Pulmonary hypertension -Likely related to morbid obesity and obstructive sleep apnea -Most recent echo shows a right ventricular systolic pressure of 40 mmHg -Continue dialysis for volume status management History of HFpEF -Currently compensated Restless leg syndrome -Continue ropinirole Diabetic neuropathy -Will hold gabapentin currently with somnolence Hyperlipidemia -Continue home fenofibrate -Continue home atorvastatin Obesity -BMI 39.1 -Recommend weight loss -Complicates treatment, prognosis, outcomes Depression -Continue home mirtazapine DVT prophylaxis -SCDs -chemoprophylaxis on hold due to thrombocytopenia CODE STATUS -Full code Charges/Coding Visit Charges Inpatient E&M: 82196 Subs Hosp L2
[2024-01-09] MEDS: Heparin 10,000 UNITS/10 ML Vial IV (11:33)
[2024-01-09 11:46] LABS: Bedside Glucose 138 mg/dL (74-106)
--- NOTE | 2024-01-09 12:55 | PN.ID_ITS ---
Physical Exam Narrative Sleeping, some intermittent agitation per nursing. No fever. Const Orientation / Consciousness: lethargic Resp normal air movement and clear to auscultation bilaterally Cardio regular rate and regular rhythm GI soft to palpation, non-tender and non-distended Skin no rashes or lesions noted ID ID: Route of nutrition/ use of supplements: [] Nutritional Intake: [] IV Site: [] Lyons Catheter: [] Assessment & Plan Assessment/Plan (1) Septic shock: PLAN: Septic shock due to VRE bacteremia (per pcr) with HD line in place - echo showed no veg. Prior admit to [facility] 09/2023 with MRSA bacteremia requiring HD line removal. Line removed here. Cont dapto/cefepime. CXR is clear, no sign pneumonia at this time. Remains on pressor Will follow (2) VRE bacteremia: (3) ESRF (end stage renal failure):
--- NOTE | 2024-01-09 12:59 | PN.RENAL_ITS ---
Subjective Subjective Following for ESRD. Patient remains encephalopathic although she appears to be more alert today. Patient remains on IV norepinephrine although requirement has decreased. Patient was dialyzed earlier today. Objective Data Objective Data Vital Signs: Vital Signs Temp Pulse Resp BP Pulse Ox O2 Del Method O2 Flow Rate 97.6 F L 95 21 H 130/42 H 98 Nasal Cannula 2 01/09/24 11:34 01/09/24 11:34 01/09/24 11:34 01/09/24 11:34 01/09/24 11:34 01/09/24 11:34 01/09/24 11:34 FiO2 30 01/08/24 06:30 Oxygen Flow Rate (L/min) 2 Oxygen Delivery Method Nasal Cannula Weight: 105.5 kg Body Mass Index (BMI) 38.7 Intake & Output: Intake and Output for Last 24 Hours 01/07/24 01/08/24 01/09/24 23:59 23:59 23:59 Intake Total 3749.58 / 3752.86 1032.55 / 1038.18 237.56 / 237.56 Output Total 2385 / 2385 950 / 950 Balance 3744.58 / 3732.86 -1352.45 / -1346.82 -712.44 / -712.44 Lab / Micro Data 01/09/24 03:20 01/09/24 03:20 Labs: Laboratory Results - last 24 hr 01/07/24 08:23: Diff Path Review Reviewed 01/08/24 06:20: Diff Path Review Reviewed 01/08/24 16:59: POC Glucose 127 H 01/09/24 00:09: POC Glucose 144 H 01/09/24 03:20: WBC 27.6 H, RBC 3.31 L, Hgb 8.9 L, Hct 30.2 L, MCV 91.2, MCH 26.9 L, MCHC 29.5 L, RDW Std Deviation 61.2 H, RDW Coeff of Vlad 18.7 H, Plt Count 28 L*, MPV 10.7, Immature Gran % (Auto) 3.900 H, Neut % (Auto) 83.9 H, L ymph % (Auto) 6.7 L, [place] % (Auto) 5.1, Eos % (Auto) 0.1, Baso % (Auto) 0.3, A bsolute Neuts (auto) 23.2 H, Absolute Lymphs (auto) 1.84, Nucleated RBC % 0.1, Differential Comment SCANNED, Diff Path Review May foll, Platelet Estimate MKD DEC, Sodium 143, Potassium 3.8, Chloride 108 H, Carbon Dioxide 23.0, Anion Gap 12, BUN 54 H, Creatinine 4.59 H, Estim Creat Clear Calc 14.63, Est GFR (MDRD) Af Amer 12 L, Est GFR (MDRD) Non-Af 10 L, BUN/Creatinine Ratio 11.8, Glucose 203 H, Calcium 9.1, Total Bilirubin 0.60, AST 47 H, ALT 53, Alkaline Phosphatase 83, T otal Protein 5.9 L, Albumin 2.2 L, Globulin 3.7, Albumin/Globulin Ratio 0.6 L 01/09/24 07:37: POC Glucose 144 H 01/09/24 11:28: POC Glucose 138 H Micro: Microbiology 01/07/24 08:37 Blood Culture (Wb) - Anticubital Left Blood Culture - Final GPC Poss Enterococcus sp 01/07/24 08:40 Blood Culture (Wb) - Left Hand Bacteria Detection (PCR) - Final Vancomycin Resist. E. faecalis 01/07/24 08:40 Blood Culture (Wb) - Left Hand Blood Culture - Final Vancomycin Resist. E. faecalis 01/08/24 10:05 Blood Culture (Wb) - Other Blood Culture - Preliminary 01/07/24 09:17 Urine Catheter - Catheter Urine Culture - Preliminary Gram positive organism Radiography Diagnostic Testing: Radiology Impression Echocardiogram 01/08/24 07:01 Interpretation Summary The estimated ejection fraction is 70 %. Unable to assess diastolic dysfunction. Ordering Physician: Gerson Cox Referring Physician: YG HINSON Performed By: Varsha Aguilar RCS Rhythm Strip Rhythm Strip: Sinus Rhythm Rate: 60 Ectopy: None Physical Exam Narrative General: Encephalopathic, does not follow commands. HEENT: Normocephalic, atraumatic. Mucous membrane dry without erythema. PERRLA. Neck: Supple, no JVD. Trachea is midline. No thyromegaly or lymphadenopathy. Cardiovascular: Normal S1, S2. No rubs, murmurs, or gallops. Respiratory: Lungs are coarse to auscultation anteriorly. Abdomen: Normal bowel sounds, soft, nontender, no guarding or rebound, no organomegaly. Extremities: No clubbing, cyanosis, or edema. Assessment & Plan Assessment/Plan (1) ESRF (end stage renal failure): (2) VRE bacteremia: (3) Septic shock: PLAN: Plan Impression/Plan: 63-year-old female with past history of ESRD, type 2 diabetes mellitus, HFpEF, COPD, SACHNI, hypothyroidism, and hyperlipidemia. Patient presented to hospital from [facility] on 01/07/2024 with altered mental status and hypotension. She was diagnosed with septic shock secondary to VRE bacteremia and UTI. Nephrology is following for ESRD. ESRD. Patient normally dialyzes at on MWF schedule. Patient missed dialysis on 01/07/2024 because of presentation to the hospital. Patient was dialyzed on 01/08/2024. Patient was dialyzed again today to get her back on MWF dialysis schedule. Patient should be okay for the weekend without needing further dialysis. Therefore, TDC can be removed from nephrology standpoint when it is safe (patient still has thrombocytopenia). Septic shock secondary to VRE bacteremia. Antimicrobial treatment as per hospital medicine and ID services. Patient remains on norepinephrine infusion, but vasopressor requirement has decreased in the last 24 hours. She will eventually need TDC removal. Barrier to TDC removal is thrombocytopenia which appears to be chronic. Platelet remains less than 50 K. Defer decision to transfuse platelet and remove TDC more safely to surgery. Nephrology plan will be discussed with Dr. Haylie Szymanski.
[2024-01-09 13:48] LABS: Pathologist Review Reviewed
[2024-01-09 17:11] LABS: Bedside Glucose 141 mg/dL (74-106)
--- NOTE | 2024-01-09 19:42 | NURSING ---
1940- Patients brother/ POA Al Brito contacted in regards to consent for blood/ blood products. Procedure explained to pt by this RN. At this time, POA's consent for blood was given and received by this RN and Elizabeth Ferrera RN.
[2024-01-09] MEDS: Desmopressin Acetate 40 MCG/10 ML Vial 20 MCG IV (20:39)
[2024-01-09] MEDS: 0.9% Saline Lock 10 ML Syringe IV (20:39)
[2024-01-09] MEDS: Pantoprazole Sodium 40 MG in 0.9% Normal Saline (100mL MB+) 100 ML 330 MG IV (20:39)
[2024-01-09 21:22] LABS: Bedside Glucose 126 mg/dL (74-106)
[2024-01-10] VITALS (45 sets, daily range): BP systolic 79–140; BP diastolic 36–86; PULSE 82–106; RESP 17–25; TEMP 36.2–36.8; O2SAT 90–100; BMI 39.4
--- NOTE | 2024-01-10 01:04 | NURSING ---
Addendum entered by Yane Lara 01/10/24 02:18: 0130- platelets infused, vitals taken. Original Note: 0048- this RN called blood bank. platelets sent showing A+ RH, pt is B+. All other info on unit matching w/ patient information. Blood bankLeigh, verified this was okay to give to patient. 0055- platelets verified by this RN and Elizabeth Ferrera RN. When attempting to start blood in TAR, screen showed that the TAR was locked and no further intervention could be charted on. Vitals charted in vitals routine. Blood bank notified.
[2024-01-10] MEDS: 0.9% Saline Lock 10 ML Syringe IV (03:46)
[2024-01-10 03:53] LABS: Absolute Lymphocyte Count 0.93 X10^3/uL (0.83-4.51); Absolute Neutrophil Count 10.2 X10^3/uL (2.0-7.7); Basophil# 0.03 X10^3/uL; Basophil% 0.2 % (0-1); Eosinophils% 0.8 % (0-5); Hematocrit 25.5 % (37-47); Hemoglobin 7.4 g/dL (12.0-15.0); Lymphocyte # 0.93 X10^3/ul (0.83-4.51); Lymphocyte % 7.6 % (19-41); Mean Corpuscular Hgb 26.7 pg (27.0-32.0); Mean Corpuscular Volume 92.1 fL (81-99); Mean Platelet Vol. 10.5 fl (6.2-12.0); Monocyte# 0.72 X10^3/uL; Monocyte% 5.9 % (0-10); NRBC Flagged by Analyzer 0 % (0-5); Neutrophil # 10.22 X10^3/uL (2.7-7.7); Neutrophil % 83.8 % (47-70); POSITIVE COUNT YES; RBC Distribution Width CV 18.6 % (11.6-14.6); RBC Distribution Width SD 61.1 fl (35.1-43.9); Red Blood Count 2.77 M/mm3 (4.2-5.4); White Blood Count 12.2 K/mm3 (4.4-11.0)
[2024-01-10 04:00] LABS: Differential Indicated SCAN CRITERIA MET; Platelet Count 45 K/mm3 (150-450)
[2024-01-10 04:06] LABS: Anion Gap 15 (5-15); BUN 45 mg/dL (7-18); BUN/Creat Ratio 12.4 RATIO (10-20); Calcium,Total 9.3 mg/dL (8.5-10.1); Chloride 108 mmol/L (98-107); Creatinine, Serum 3.62 mg/dL (0.55-1.02); EST Glomerular Filtration Rate 13 mL/min (>60); Est Glom Filt Rate - Afr Amer 16 mL/min (>60); Estimated Creatinine Clearance 18.53 ml/min; Glucose 185 mg/dL (74-106); Potassium 3.5 mmol/L (3.5-5.1); Sodium Level 144 mmol/L (136-145)
[2024-01-10 04:38] LABS: Differential Comment SCANNED; Platelet Estimate MKD DEC (ADEQ)
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
--- NOTE | 2024-01-10 05:50 | NURSING ---
0538- pt continous pulling off oxygen, pulse ox and leads. Multiple attempts to redirect pt without success 0540- pt w/ oxygen off, desatting to mid 80's. At this time restraints applied by this RN and Elizabeth Ferrera RN.
--- NOTE | 2024-01-10 07:15 | PN.SURG_ITS ---
Subjective Subjective Patient seen and examined during AM rounds. She is yelling belligerently the moment I entered the room and asked for me to stop repeatedly. She appears afraid that someone is there to harm her. She also suggest that someone is in the room with her. Objective Data Objective Data Vital Signs: Vital Signs Temp Pulse Resp BP Pulse Ox O2 Del Method O2 Flow Rate 98.2 F 88 25 H 102/51 L 100 Room Air 3 01/10/24 04:00 01/10/24 07:00 01/10/24 07:00 01/10/24 07:00 01/10/24 07:00 01/10/24 07:00 01/10/24 06:00 FiO2 30 01/09/24 23:50 Oxygen Flow Rate (L/min) 3 Oxygen Delivery Method Room Air Weight: 236 lb 8.896 oz Body Mass Index (BMI) 39.4 Intake & Output: Intake and Output for Last 24 Hours 01/08/24 01/09/24 01/10/24 23:59 23:59 23:59 Intake Total 1032.55 / 1038.18 742.76 / 744.64 33.90 / 33.90 Output Total 2385 / 2385 1375 / 1395 30 / 30 Balance -1352.45 / -1346.82 -632.24 / -650.36 3.90 / 3.90 Lab / Micro Data 01/10/24 03:32 01/10/24 03:32 Labs: Laboratory Results - last 24 hr 01/09/24 03:20: Diff Path Review Reviewed 01/09/24 07:37: POC Glucose 144 H 01/09/24 11:28: POC Glucose 138 H 01/09/24 16:53: POC Glucose 141 H 01/09/24 19:48: Blood Type B POSITIVE 01/09/24 21:01: POC Glucose 126 H 01/10/24 03:32: WBC 12.2 H, RBC 2.77 L, Hgb 7.4 L, Hct 25.5 L, MCV 92.1, MCH 26.7 L, MCHC 29.0 L, RDW Std Deviation 61.1 H, RDW Coeff of Vlad 18.6 H, Plt Count 45 L*, MPV 10.5, Immature Gran % (Auto) 1.700 H, Neut % (Auto) 83.8 H, L ymph % (Auto) 7.6 L, [place] % (Auto) 5.9, Eos % (Auto) 0.8, Baso % (Auto) 0.2, A bsolute Neuts (auto) 10.2 H, Absolute Lymphs (auto) 0.93, Nucleated RBC % 0, Differential Comment SCANNED, Diff Path Review May , Platelet Estimate MKD DEC, Sodium 144, Potassium 3.5, Chloride 108 H, Carbon Dioxide 21.0, Anion Gap 15, BUN 45 H, Creatinine 3.62 H, Estim Creat Clear Calc 18.53, Est GFR (MDRD) Af Amer 16 L, Est GFR (MDRD) Non-Af 13 L, BUN/Creatinine Ratio 12.4, Glucose 185 H, Calcium 9.3 Micro: Microbiology 01/07/24 09:17 Urine Catheter - Catheter Urine Culture - Preliminary Gram positive organism 01/07/24 08:37 Blood Culture (Wb) - Anticubital Left Blood Culture - Final GPC Poss Enterococcus sp 01/07/24 08:40 Blood Culture (Wb) - Left Hand Bacteria Detection (PCR) - Final Vancomycin Resist. E. faecalis 01/07/24 08:40 Blood Culture (Wb) - Left Hand Blood Culture - Final Vancomycin Resist. E. faecalis 01/08/24 10:05 Blood Culture (Wb) - Other Blood Culture - Preliminary Rhythm Strip Rhythm Strip: Sinus Rhythm Rate: 60 Ectopy: None Physical Exam Const Constitutional Narrative: Oriented to person only General Appearance: ill appearing Chest Chest Narrative: Right-sided tunneled hemodialysis catheter was some clotted blood about the tunnel exit site but no evidence of purulence. Patient does not appear to be tender about the catheter. Assessment & Plan Assessment/Plan (1) VRE bacteremia: PLAN: The patient has VRE bacteremia with a right-sided tunneled hemodialysis catheter. 2 packs of platelets were provided alongside of DDAVP and her pleasant platelet count is 45. With this improvement I am happy to proceed with tunneled hemodialysis catheter as patient is evidently septic with neurologic manifestations. Consents were obtained from her power of assistant city attorney via telephone and the procedure was undertaken with multiple ICU staff on hand to help with patient's redirection. The procedure was completed in uncomplicated fashion. A pressure dressing was placed after holding manual pressure and will reevaluate for hemostasis. Dawood Jeffries MD General Surgery Endocrine Surgery Pager: [facility] [address] [place] [address], [facility], [address] [place] [address] Office: [phone] Charges/Coding Visit Charges Inpatient E&M: 01893 Subs Hosp L2
[2024-01-10 07:55] LABS: Bedside Glucose 129 mg/dL (74-106)
[2024-01-10] MEDS: Pantoprazole Sodium 40 MG in 0.9% Normal Saline (100mL MB+) 100 ML 330 MG IV ×2 (09:41→20:34)
[2024-01-10] MEDS: DAPTOMYCIN IV (10:25)
[2024-01-10] MEDS: NORMAL SALINE 0.9% IV (10:25)
[2024-01-10] MEDS: fentaNYL 100 MCG/2 ML Ampul 25 MCG IV (11:25)
[2024-01-10] MEDS: Nystatin Powder 15gm Bottle 1 APPLIC TOPICAL ×2 (11:39→20:34)
[2024-01-10] MEDS: Insulin Glargine-YFGN 100 UNIT/ML Pen 8 UNIT SC (11:39)
--- NOTE | 2024-01-10 11:58 | PCM.PN.HOSP ---
Reason for Visit Reason for Visit: Altered mental status Subjective Subjective No issues overnight. Levo is down to 1 todd per minute from a maximum of 25 mcg/min. Plan is to remove dialysis catheter today. Patient remains agitated and confused however she is more alert. Still with intermittent agitation and combativeness so restraints had to be placed through the night. Objective Data Objective Data Vital Signs: Vital Signs Temp Pulse Resp BP Pulse Ox O2 Del Method O2 Flow Rate 98.2 F 90 25 H 102/51 L 100 Nasal Cannula 3 01/10/24 04:00 01/10/24 08:00 01/10/24 07:00 01/10/24 07:00 01/10/24 07:00 01/10/24 08:00 01/10/24 08:00 FiO2 30 01/09/24 23:50 Oxygen Flow Rate (L/min) 3 Oxygen Delivery Method Nasal Cannula Weight: 107.3 kg Body Mass Index (BMI) 39.4 Intake & Output: Intake and Output for Last 24 Hours 01/08/24 01/09/24 01/10/24 23:59 23:59 23:59 Intake Total 1032.55 / 1038.18 742.76 / 744.64 209.90 / 209.90 Output Total 2385 / 2385 1375 / 1395 30 / 30 Balance -1352.45 / -1346.82 -632.24 / -650.36 179.90 / 179.90 Lab / Micro Data 01/10/24 03:32 01/10/24 03:32 Labs: Laboratory Results - last 24 hr 01/09/24 03:20: Diff Path Review Reviewed 01/09/24 16:53: POC Glucose 141 H 01/09/24 19:48: Blood Type B POSITIVE 01/09/24 21:01: POC Glucose 126 H 01/10/24 03:32: WBC 12.2 H, RBC 2.77 L, Hgb 7.4 L, Hct 25.5 L, MCV 92.1, MCH 26.7 L, MCHC 29.0 L, RDW Std Deviation 61.1 H, RDW Coeff of Vlad 18.6 H, Plt Count 45 L*, MPV 10.5, Immature Gran % (Auto) 1.700 H, Neut % (Auto) 83.8 H, Lymph % (Auto) 7.6 L, [place] % (Auto) 5.9, Eos % (Auto) 0.8, Baso % (Auto) 0.2, Absolute Neuts (auto) 10.2 H, Absolute Lymphs (auto) 0.93, Nucleated RBC % 0, Differential Comment SCANNED, Diff Path Review May foll, Platelet Estimate MKD DEC, Sodium 144, Potassium 3.5, Chloride 108 H, Carbon Dioxide 21.0, Anion Gap 15, BUN 45 H, Creatinine 3.62 H, Estim Creat Clear Calc 18.53, Est GFR (MDRD) Af Amer 16 L, Est GFR (MDRD) Non-Af 13 L, BUN/Creatinine Ratio 12.4, Glucose 185 H, Calcium 9.3 01/10/24 07:34: POC Glucose 129 H Micro: Microbiology 01/07/24 09:17 Urine Catheter - Catheter Urine Culture - Preliminary Gram positive organism 01/07/24 08:37 Blood Culture (Wb) - Anticubital Left Blood Culture - Final GPC Poss Enterococcus sp 01/07/24 08:40 Blood Culture (Wb) - Left Hand Bacteria Detection (PCR) - Final Vancomycin Resist. E. faecalis 01/07/24 08:40 Blood Culture (Wb) - Left Hand Blood Culture - Final Vancomycin Resist. E. faecalis 01/08/24 10:05 Blood Culture (Wb) - Other Blood Culture - Preliminary Rhythm Strip Rhythm Strip: Sinus Rhythm Rate: 60 Ectopy: None Physical Exam Const alert, no apparent distress and well nourished; Negative for oriented x3, average body habitus or healthy appearing Constitutional Narrative: Obese, white female, lying in bed and awake today but oriented only to her name, remains confused but more alert, intermittent combativeness and yells out intermittently Orientation / Consciousness: confused and disoriented HEENT normocephalic, head/scalp atraumatic and hearing grossly normal bilaterally; Negative for moist oral mucous membranes HEENT Narrative: Mallampati 3, no thrush Eyes Eyes Narrative: Mild conjunctival pallor bilaterally, no scleral icterus Resp normal respiratory effort, no retractions, no use of accessory muscles and clear to auscultation bilaterally Resp Narrative: distant Auscultation: Negative for rales, rhonchi or wheezes Cardio regular rate, regular rhythm, S1 normal heart sound, S2 normal heart sound, no murmurs, no rub, no gallops and no clicks GI normal to inspection, nondistended, normoactive bowel sounds, soft to palpation and non-tender GI Narrative: Large protuberant abdomen Extremity no clubbing, cyanosis or edema Extremity Narrative: Pedal and radial pulses are 2+ Skin Skin Narrative: Left-sided IJ in place, right-sided tunneled dialysis catheter in place Neuro moves all extremities and no focal motor deficits Neuro Narrative: Moves all extremities symmetrically, intermittently following commands today, more alert but remains agitated and confused Sensorium / Orientation: awake, alert and oriented to person Speech: Negative for speech normal Psych Psych Narrative: Still with significant intermittent agitation and combativeness Assessment & Plan Assessment/Plan (1) Hypotension: (2) UTI (urinary tract infection): (3) Thrombocytopenia: (4) Toxic metabolic encephalopathy: PLAN: Plan Septic shock secondary to VRE UTI and bacteremia -Blood and urine cultures both positive for VRE -Continue daptomycin and cefepime -Levophed is now only at 1 mcg/min down from a max of 25 mcg/min -Continue midodrine 10 mg 3 times daily -Repeat cultures from 01/08/2024 remain positive -Repeat clearance cultures again tomorrow -Echocardiogram shows an EF of 70% with the inability to assess diastolic dysfunction and no valvular abnormalities or abscesses noted -If next other cultures are do not clear will need CY -Tunneled dialysis catheter removed today by general surgery -ID and pulmonary/critical care medicine following appreciate input Toxic/metabolic encephalopathy -Reportedly baseline alert and oriented x 3-4 -Remains markedly confused but seems to be slowly improving -Secondary to severe infection as above -Continue to monitor -CT of the brain is unremarkable Thrombocytopenia-acute on chronic -Baseline platelet counts appear to be 70 and 100,000 -Platelet count today up to 45,000 however she was given 2 packs so we could remove dialysis catheter today -Highly anticipate that her platelet count will not improve until we have source control and her sepsis resolves -Repeat CBC in a.m. -Will hold chemoprophylaxis with subcu heparin at this time due to thrombocytopenia but once greater than 75,000 initiate subcu DVT prophylaxis End-stage renal disease -Dialysis dependent -Dialysis catheter removed today -Once cultures care can reinsert tunneled line however may need temporary line inserted on Friday if blood cultures remain positive -Will discuss further with nephrology after labs reviewed on Friday -Typical dialysis is MWF -Nephrology following Chronic hypoxic respiratory failure/SACHIN -BiPAP nocturnally--> patient is noncompliant at baseline with nocturnal BiPAP -Continue home oxygen as ordered -Typically on 4 L per previous documentation at baseline--> patient currently stable on 3 L -As needed bronchodilator therapy Chronic anemia -Baseline appears to be between 7.5 and 9 -Dropped to 7.4 this morning however no signs of obvious bleeding--> repeat hemoglobin pending for 1300 -No signs of acute blood loss Chronic debility secondary to comorbid conditions -PT/OT to follow once more medically stable -Case management/social work consulted for assistance with discharge planning DM-2 -Had recent hemoglobin A1c in September and was 7.6 -Patient is currently not on anything for her blood sugars as an outpatient -Blood sugars remain elevated so added Levemir 8 units for goal blood sugar range 140-180 -Add sliding scale -Accu-Cheks as ordered -Cardiac/carb controlled diet as patient able to partake History of dysphagia -Will continue mechanical soft thin liquid diet -May need speech therapy involvement depending on how she does with this diet Hypothyroidism -Continue home Synthroid GERD/esophageal stenosis/history of erosive gastropathy -Continue home Protonix -Continue home Carafate -Hemoglobin is stable Pulmonary hypertension -Likely related to morbid obesity and obstructive sleep apnea -Most recent echo shows a right ventricular systolic pressure of 40 mmHg -Continue dialysis for volume status management History of HFpEF -Currently compensated Restless leg syndrome -Continue ropinirole Diabetic neuropathy -Will hold gabapentin currently with somnolence Hyperlipidemia -Continue home fenofibrate -Continue home atorvastatin Obesity -BMI 39.4 -Recommend weight loss -Complicates treatment, prognosis, outcomes Depression -Continue home mirtazapine DVT prophylaxis -SCDs -chemoprophylaxis on hold due to thrombocytopenia CODE STATUS -Full code Charges/Coding Visit Charges Inpatient E&M: 46831 Subs Hosp L2
[2024-01-10 12:08] LABS: Bedside Glucose 120 mg/dL (74-106)
--- NOTE | 2024-01-10 12:49 | PCM.OP.PRO ---
Procedure Report Date of Procedure: 01/10/24 Procedure: Tunneled hemodialysis catheter removal (right) After obtaining written consent, the patient was positioned supine in the ICU bed with a slight reverse Trendelenburg positioning. The right lower neck and upper chest area as well as the proximal portion of the catheter were prepped with a chlorhexidine prep solution. Then a formal timeout was conducted to confirm patient and the procedure. Procedure was commenced with infiltration of the soft tissues with 1% lidocaine about the catheter insertion site in the right neck as well as the tunneling tract in the upper chest. A total volume of 9 mL was used. Following this local block, the sutures around the catheter were removed. The tunneling tract was bluntly dilated. Then the catheter was withdrawn from the neck and tunneling tract as pressure was applied at the insertion site in the right lower neck. This pressure was maintained for a period of 5 minutes. Following this application of pressure inspection revealed no evidence of ongoing bleeding. The skin edges at the tunneling tract exit site were loosely approximated with a single interrupted 4-0 nylon suture. A couple of 4 x 4 gauzes were folded into fourths and were taped over the tunneling exit site as a pressure dressing. Patient tolerated the procedure well without difficulty. Estimated blood loss: Less than 2 mL Complications: None Procedures Cardiovascular CF Procedures [id number]: [id number] Removal tunneled cv cath
[2024-01-10 13:58] LABS: Hemoglobin 7.2 g/dL (12.0-15.0)
--- NOTE | 2024-01-10 14:23 | PN.CC_ITS ---
Objective Data Objective Data Vital Signs: Vital Signs Last response 3 Temperature 36.6 C 01/10/24 08:00 Temperature Source Temporal 01/10/24 08:00 Pulse Rate 86 01/10/24 12:00 Pulse Strength Weak (1+) 01/10/24 10:00 Respiratory Rate 21 H 01/10/24 12:00 Respiratory Effort Normal, Non-Labored 01/10/24 12:00 Respiratory Depth Normal 01/10/24 12:00 Respiratory Pattern Tachypnea 01/10/24 12:00 Blood Pressure 105/61 01/10/24 12:00 Blood Pressure Mean 75 01/10/24 12:00 Blood Pressure Source Monitor 01/10/24 12:00 Blood Pressure Position Semi-Fowlers 01/10/24 12:00 Blood Pressure Location Right Arm 01/10/24 12:00 Pulse Ox 96 01/10/24 12:00 Oxygen Delivery Method Nasal Cannula 01/10/24 12:00 Oxygen Flow Rate (L/min) 2 01/10/24 12:00 Fraction of Inspired Oxygen (FIO2) 30 01/09/24 23:50 I&O: I&O Last 24 Hours 3 01/09/24 01/10/24 01/10/24 23:59 11:59 23:59 Intake Total 505.20 / 744.64 216.57 / 218.47 1.9 / 218.47 Output Total 425 / 1395 30 Balance 80.20 / -650.36 186.57 / 188.47 1.9 / 188.47 I&O: Total Stay 3 01/07/24 08:15 thru 01/10/24 12:00 Intake Total 5743.36 Output Total 3795 Balance 1948.36 Current Meds Ordered / Administered: Current meds ordered / Administered 3 Generic Name Dose Route Start Last Admin Trade Name Freq PRN Reason Stop Dose Admin Acetaminophen 650 mg 01/07/24 11:58 Acetaminophen 325 Mg Tablet PO Q6H PRN PRN Pain 1-10 Or Fever>100.7 Albuterol Sulfate 2.5 mg 01/07/24 11:58 Albuterol 2.5 Mg/3 Ml Vial.Neb. INHALATION Q2H PRN PRN SOB &/OR WHEEZING Glucagon 1 mg 01/07/24 11:58 Glucagon 1 Mg/Ml Syringe IM X1 PRN HYPOGLYCEMIA Protocol Glycerin/Hypromellose/Polyethylene 1 drp 01/07/24 12:04 Glycerin/Hypromellose/Sfx854 15 Ml Bottle EACH EYE Q2H PRN dry eye(s) Cefepime HCl 500 mg/ Sodium 50 mls @ 100 mls/hr 01/08/24 15:00 01/09/24 15:25 Chloride IV 01/15/24 15:01 Infused DAILY@1500 VERONICA Infusion Dextrose 250 mls @ 999 mls/hr 01/07/24 11:58 01/08/24 12:20 Dextrose 10%-Water IV Infused .Q16M PRN Infusion HYPOGLYCEMIA Protocol Norepinephrine Bitartrate 8 mg 250 mls @ 9.375 mls/hr 01/07/24 12:25 01/10/24 12:00 / Sodium Chloride CONT INF 1 mcg/min .[id number] VERONICA 1.9 mls/hr Titration Protocol 5 MCG/MIN Daptomycin 800 mg/ Sodium 66 mls @ 120 mls/hr 01/08/24 10:00 01/10/24 10:58 Chloride IV Infused Q48 VERONICA Infusion Pantoprazole Sodium 40 mg/ 110 mls @ 330 mls/hr 01/09/24 22:00 01/10/24 10:01 Sodium Chloride IV Infused Q12 VERONICA Infusion Insulin Glargine 8 unit 01/10/24 10:00 01/10/24 11:39 Insulin Glargine-Yfgn 100 Unit/Ml Pen SC 8 unit DAILY VERONICA Administration Insulin Human Lispro 0 unit 01/07/24 16:00 01/10/24 11:37 Insulin Lispro 100 Unit/Ml Insuln.Pen SC Not Given TIDAC [facility] Protocol Nystatin 1 applic 01/07/24 22:00 01/10/24 11:39 Nystatin Powder 15gm Bottle TOPICAL 1 applic BID VERONICA Administration Protocol Ondansetron HCl 4 mg 01/07/24 11:58 Ondansetron 4 Mg/2 Ml Vial IV Q8H PRN PRN NAUSEA/VOMITING Prednisolone Acetate 1 drp 01/07/24 14:00 01/10/24 11:41 Prednisolone Eye Drops (5 Ml) 1 Drop Opth.Btl OPHTHALMIC Not Given 4X/DAY VERONICA Senna/Docusate Sodium 2 tablet 01/07/24 11:58 Senna/Docusate Sodium 1 Tablet PO DAILY PRN constipation Sodium Chloride 10 - 40 ml 01/07/24 12:35 01/10/24 03:46 0.9% Saline Lock 10 Ml Syringe IV 20 ml UD PRN Administration SALINE FLUSH Lab / Micro Data Attestation: I reviewed the patient's lab results. 01/10/24 13:48 01/10/24 03:32 Labs: Laboratory Results - last 24 hr 01/09/24 16:53: POC Glucose 141 H 01/09/24 19:48: Blood Type B POSITIVE 01/09/24 21:01: POC Glucose 126 H 01/10/24 03:32: WBC 12.2 H, RBC 2.77 L, Hgb 7.4 L, Hct 25.5 L, MCV 92.1, MCH 26.7 L, MCHC 29.0 L, RDW Std Deviation 61.1 H, RDW Coeff of Vlad 18.6 H, Plt Count 45 L*, MPV 10.5, Immature Gran % (Auto) 1.700 H, Neut % (Auto) 83.8 H, L ymph % (Auto) 7.6 L, [place] % (Auto) 5.9, Eos % (Auto) 0.8, Baso % (Auto) 0.2, A bsolute Neuts (auto) 10.2 H, Absolute Lymphs (auto) 0.93, Nucleated RBC % 0, Differential Comment SCANNED, Diff Path Review May , Platelet Estimate MKD DEC, Sodium 144, Potassium 3.5, Chloride 108 H, Carbon Dioxide 21.0, Anion Gap 15, BUN 45 H, Creatinine 3.62 H, Estim Creat Clear Calc 18.53, Est GFR (MDRD) Af Amer 16 L, Est GFR (MDRD) Non-Af 13 L, BUN/Creatinine Ratio 12.4, Glucose 185 H, Calcium 9.3 01/10/24 07:34: POC Glucose 129 H 01/10/24 11:36: POC Glucose 120 H 01/10/24 13:48: Hgb 7.2 L Micro: Microbiology 01/08/24 10:05 Blood Culture (Wb) - Other Blood Culture - Preliminary GPC Poss Enterococcus sp 01/07/24 09:17 Urine Catheter - Catheter Urine Culture - Preliminary Gram positive organism Rhythm Strip Rhythm Strip: Sinus Rhythm Rate: 60 Ectopy: None Assessment and Plan . Assessment and plan: [facility] Medical [facility] Department [address] [place] [address] Progress Note - Zinc Chloride Operator 01/09/24 0707 MR#: [id number] Acct: [id number] Name: TOBIN BIGGS Rep #: [id number] : 1960 63 From: Gerson Cox DO PCP: Dr. Cortez Smith, DO Status: ADM IN Location: ICU ICU03-1 IMPRESSIONS: 1. Septic shock secondary to VRE cystitis and bacteremia 2. Toxic metabolic encephalopathy working diagnosis is attributing this to sepsis in a dialysis patient 3. End-stage renal disease on hemodialysis Nephrology following to assist with hemodialysis needs. 4. Histories of anemia/thrombocytopenia/obesity/hypothyroidism/diabetes mellitus/chronic kidney disease/GERD/obstructive sleep apnea RECOMMENDATIONS: 1. Continue antimicrobials per ID recommendations. 2. Continue Levophed to maintain hemodynamic stability. 3. Dialysis support per nephrology recommendations. 4. Following platelet counts- improved today to 46K but only after transfusion of two apheresis packs of platelets overnight 5. Per report surgical intervention to remove tunnelled catheter is delayed awaiting recovery of platelets Critical Care Time: 50 minutes The entirety of this encounter was done via Telemedicine Physical Exam HEENT normocephalic and head/scalp atraumatic Mouth: oral and palatal mucosa normal Eyes PERRL Neck full ROM Resp normal respiratory effort Cardio regular rate GI normal to inspection, nondistended, normoactive bowel sounds Subjective Subjective Visibly distressed, emotional. Calls out continuously Please, No and my legs are hurting.
[2024-01-10] MEDS: prednisoLONE eye drops (5 mL) 1 DROP OPTH.BTL 1 DRP OPHTHALMIC (20:35)
[2024-01-11] VITALS (20 sets, daily range): BP systolic 88–136; BP diastolic 44–82; PULSE 72–96; RESP 12–27; TEMP 36.3–36.8; O2SAT 86–99; BMI 39.2
--- NOTE | 2024-01-11 02:36 | CPS ---
Attempted PAP therapy. Patient then became agitated and refused.
[2024-01-11 04:21] LABS: Absolute Neutrophil Count 6.3 X10^3/uL (2.0-7.7); Basophil# 0.02 X10^3/uL; Basophil% 0.3 % (0-1); Eosinophil# 0.11 X10^3/uL; Eosinophils% 1.4 % (0-5); Hematocrit 24.9 % (37-47); Hemoglobin 7.2 g/dL (12.0-15.0); Lymphocyte % 11.5 % (19-41); Mean Corp Hgb Conc 28.9 g/dL (32-36); Mean Corpuscular Hgb 26.6 pg (27.0-32.0); Mean Corpuscular Volume 91.9 fL (81-99); Mean Platelet Vol. 10.6 fl (6.2-12.0); Monocyte# 0.43 X10^3/uL; Monocyte% 5.5 % (0-10); NRBC Flagged by Analyzer 0 % (0-5); Neutrophil # 6.25 X10^3/uL (2.7-7.7); Neutrophil % 79.6 % (47-70); POSITIVE COUNT YES; RBC Distribution Width CV 18.6 % (11.6-14.6); RBC Distribution Width SD 60.7 fl (35.1-43.9); Red Blood Count 2.71 M/mm3 (4.2-5.4); White Blood Count 7.8 K/mm3 (4.4-11.0)
[2024-01-11 04:46] LABS: Differential Indicated SCAN CRITERIA MET
[2024-01-11 04:47] LABS: Platelet Count 33 K/mm3 (150-450)
[2024-01-11 04:57] LABS: ALB/GLOB Ratio 0.5 RATIO (0.9-2.4); AST(SGOT) 25 U/L (15-37); Alanine Aminotransfer ALT/SGPT 33 U/L (13-56); Alkaline Phosphatase 74 U/L (45-117); Anion Gap 12 (5-15); BUN 53 mg/dL (7-18); BUN/Creat Ratio 13.2 RATIO (10-20); Calcium,Total 9.4 mg/dL (8.5-10.1); Chloride 113 mmol/L (98-107); Creatinine, Serum 4.02 mg/dL (0.55-1.02); EST Glomerular Filtration Rate 12 mL/min (>60); Est Glom Filt Rate - Afr Amer 14 mL/min (>60); Estimated Creatinine Clearance 16.68 ml/min; Globulin 3.7 g/dL (2.2-4.2); Glucose 101 mg/dL (74-106); Magnesium 1.8 mg/dL (1.6-2.6); Phosphorus 4.3 mg/dL (2.5-4.9); Potassium 3.1 mmol/L (3.5-5.1); Protein, Total 5.7 g/dL (6.4-8.2); Sodium Level 149 mmol/L (136-145)
[2024-01-11 06:21] LABS: Bedside Glucose 110 mg/dL (74-106)
[2024-01-11 06:42] LABS: Platelet Estimate MKD DEC (ADEQ)
--- NOTE | 2024-01-11 07:25 | PN.SURG_ITS ---
Subjective Subjective Patient seen and examined during AM rounds. She is found resting more comfortably in bed. She seems less belligerent and more welcoming. She denies any pain. She denies much rest because she shares that she simply has not been tired. Objective Data Objective Data Vital Signs: Vital Signs Temp Pulse Resp BP Pulse Ox O2 Del Method O2 Flow Rate 97.9 F 87 27 H 121/60 H 91 Nasal Cannula 3 01/11/24 04:00 01/11/24 07:00 01/11/24 07:00 01/11/24 07:00 01/11/24 07:00 01/11/24 07:00 01/11/24 07:00 FiO2 30 01/09/24 23:50 Oxygen Flow Rate (L/min) 3 Oxygen Delivery Method Nasal Cannula Weight: 235 lb 3.732 oz Body Mass Index (BMI) 39.2 Intake & Output: Intake and Output for Last 24 Hours 01/09/24 01/10/24 01/11/24 23:59 23:59 23:59 Intake Total 742.76 / 744.64 430.37 / 430.37 Output Total 1375 / 1395 480 / 480 100 / 100 Balance -632.24 / -650.36 -49.63 / -49.63 -100 / -100 Lab / Micro Data 01/11/24 04:05 01/11/24 04:05 Labs: Laboratory Results - last 24 hr 01/10/24 07:34: POC Glucose 129 H 01/10/24 11:36: POC Glucose 120 H 01/10/24 13:48: Hgb 7.2 L 01/10/24 17:14: POC Glucose 110 H 01/11/24 04:05: WBC 7.8, RBC 2.71 L, Hgb 7.2 L, Hct 24.9 L, MCV 91.9, MCH 26.6 L , MCHC 28.9 L, RDW Std Deviation 60.7 H, RDW Coeff of Vlad 18.6 H, Plt Count 33 L*, MPV 10.6, Immature Gran % (Auto) 1.700 H, Neut % (Auto) 79.6 H, Lymph % (Auto) 11.5 L, [place] % (Auto) 5.5, Eos % (Auto) 1.4, Baso % (Auto) 0.3, Absolute Neuts (auto) 6.3, Absolute Lymphs (auto) 0.90, Nucleated RBC % 0, Diff Path Review May foll, Platelet Estimate MKD DEC, Sodium 149 H, Potassium 3.1 L, C hloride 113 H, Carbon Dioxide 24.0, Anion Gap 12, BUN 53 H, Creatinine 4.02 H, Estim Creat Clear Calc 16.68, Est GFR (MDRD) Af Amer 14 L, Est GFR (MDRD) Non-Af 12 L, BUN/Creatinine Ratio 13.2, Glucose 101, Calcium 9.4, Phosphorus 4.3, Magnesium 1.8, Total Bilirubin 0.70, AST 25, ALT 33, Alkaline Phosphatase 74, T otal Protein 5.7 L, Albumin 2.0 L, Globulin 3.7, Albumin/Globulin Ratio 0.5 L Micro: Microbiology 01/08/24 10:05 Blood Culture (Wb) - Other Blood Culture - Final Enterococcus faecalis 01/07/24 09:17 Urine Catheter - Catheter Urine Culture - Preliminary Gram positive organism 01/07/24 08:37 Blood Culture (Wb) - Anticubital Left Blood Culture - Final GPC Poss Enterococcus sp 01/07/24 08:40 Blood Culture (Wb) - Left Hand Bacteria Detection (PCR) - Final Vancomycin Resist. E. faecalis 01/07/24 08:40 Blood Culture (Wb) - Left Hand Blood Culture - Final Vancomycin Resist. E. faecalis Rhythm Strip Rhythm Strip: Sinus Rhythm Rate: 60 Ectopy: None Physical Exam Const no apparent distress Constitutional Narrative: Appears oriented to person and place Chest Chest Narrative: Stable appearance to tunnel catheter removal site with dressing from yesterday's procedure clean dry and intact. The areas palpated and I do not appreciate any underlying fluctuance or significant skin discoloration to suggest subcutaneous hematoma. Resp normal respiratory effort Assessment & Plan Assessment/Plan (1) VRE bacteremia: PLAN: The patient has VRE bacteremia with a right-sided tunneled hemodialysis catheter. Following platelet infusion patient's catheter was removed at bedside without event yesterday, 01/10/2024. This removal site appears appropriate and patient appears to be somewhat clinically improved?with particularly improved mentation. Recommend continuing dressing until tomorrow and then it may be removed. Uncertain what plans are for reinstating dialysis access but Dr. Burton will return tomorrow. Dawood Jeffries MD General Surgery Endocrine Surgery Pager: [facility] [address] [place] [address], [address] [place] [address] Office: [phone] Charges/Coding Visit Charges Inpatient E&M: 32418 Subs Hosp L2
[2024-01-11] MEDS: Dext 5%-0.45% NS 1,000 ML 60 ML IV (07:55)
[2024-01-11] MEDS: Potassium Chloride 10mEq/100mL 10 MEQ/100 ML IV.SOLN. 100 MEQ IV BOLUS ×4 (08:34→13:39)
[2024-01-11] MEDS: Nystatin Powder 15gm Bottle 1 APPLIC TOPICAL ×2 (10:13→21:38)
[2024-01-11] MEDS: prednisoLONE eye drops (5 mL) 1 DROP OPTH.BTL 1 DRP OPHTHALMIC ×4 (10:14→21:38)
[2024-01-11] MEDS: Alteplase 2 MG/2 ML Vial IV (10:53)
--- NOTE | 2024-01-11 11:27 | PN.CC_ITS ---
Objective Data Objective Data Vital Signs: Vital Signs Last response 3 Temperature 36.6 C 01/11/24 08:00 Temperature Source Temporal 01/11/24 08:00 Pulse Rate 88 01/11/24 09:00 Pulse Strength Normal (2+) 01/11/24 09:42 Respiratory Rate 21 H 01/11/24 09:00 Respiratory Effort Normal, Non-Labored 01/11/24 08:00 Respiratory Depth Shallow 01/11/24 08:00 Respiratory Pattern Normal 01/11/24 08:00 Blood Pressure 136/59 H 01/11/24 09:00 Blood Pressure Mean 84 01/11/24 09:00 Blood Pressure Source Monitor 01/11/24 09:00 Blood Pressure Position Semi-Fowlers 01/11/24 09:00 Blood Pressure Location Left Forearm 01/11/24 09:00 Pulse Ox 94 01/11/24 11:26 Oxygen Delivery Method Nasal Cannula 01/11/24 11:26 Oxygen Flow Rate (L/min) 3 01/11/24 11:26 Fraction of Inspired Oxygen (FIO2) 30 01/09/24 23:50 I&O: I&O Last 24 Hours 3 01/10/24 01/10/24 01/11/24 11:59 23:59 11:59 Intake Total 216.57 / 430.37 213.8 / 430.37 100 / 100 Output Total 30 / 480 450 / 480 100 / 100 Balance 186.57 / -49.63 -236.2 / -49.63 0 / 0 I&O: Total Stay 3 01/07/24 08:15 thru 01/11/24 10:07 Intake Total 6055.26 Output Total 4345 Balance 1710.26 Current Meds Ordered / Administered: Current meds ordered / Administered 3 Generic Name Dose Route Start Last Admin Trade Name Freq PRN Reason Stop Dose Admin Acetaminophen 650 mg 01/07/24 11:58 Acetaminophen 325 Mg Tablet PO Q6H PRN PRN Pain 1-10 Or Fever>100.7 Albuterol Sulfate 2.5 mg 01/07/24 11:58 Albuterol 2.5 Mg/3 Ml Vial.Neb. INHALATION Q2H PRN PRN SOB &/OR WHEEZING Glucagon 1 mg 01/07/24 11:58 Glucagon 1 Mg/Ml Syringe IM X1 PRN HYPOGLYCEMIA Protocol Glycerin/Hypromellose/Polyethylene 1 drp 01/07/24 12:04 Glycerin/Hypromellose/[id number] 15 Ml Bottle EACH EYE Q2H PRN dry eye(s) Cefepime HCl 500 mg/ Sodium 50 mls @ 100 mls/hr 01/08/24 15:00 01/10/24 16:19 Chloride IV 01/15/24 15:01 Infused DAILY@1500 VERONICA Infusion Dextrose 250 mls @ 999 mls/hr 01/07/24 11:58 01/08/24 12:20 Dextrose 10%-Water IV Infused .Q16M PRN Infusion HYPOGLYCEMIA Protocol Norepinephrine Bitartrate 8 mg 250 mls @ 9.375 mls/hr 01/07/24 12:25 01/11/24 09:23 / Sodium Chloride CONT INF Infused .[id number] VREONICA Titration Protocol 5 MCG/MIN Daptomycin 800 mg/ Sodium 66 mls @ 120 mls/hr 01/08/24 10:00 01/10/24 10:58 Chloride IV Infused Q48 VERONICA Infusion Pantoprazole Sodium 40 mg/ 110 mls @ 330 mls/hr 01/09/24 22:00 01/10/24 20:54 Sodium Chloride IV Infused Q12 VERONICA Infusion Dextrose/Sodium Chloride 1,000 mls @ 60 mls/hr 01/11/24 07:20 01/11/24 07:55 IV 01/11/24 23:59 60 mls/hr .[id number] VERONICA Administration Potassium Chloride 10 meq in 100 mls @ 100 mls/hr 01/11/24 08:00 01/11/24 10:07 IV BOLUS 01/11/24 11:59 100 mls/hr Q1H VERONICA Administration Insulin Glargine 8 unit 01/10/24 10:00 01/11/24 10:13 Insulin Glargine-Yfgn 100 Unit/Ml Pen SC Not Given DAILY VERONICA Insulin Human Lispro 0 unit 01/07/24 16:00 01/11/24 09:16 Insulin Lispro 100 Unit/Ml Insuln.Pen SC Not Given TIDAC [facility] Protocol Nystatin 1 applic 01/07/24 22:00 01/11/24 10:13 Nystatin Powder 15gm Bottle TOPICAL 1 applic BID VERONICA Administration Protocol Ondansetron HCl 4 mg 01/07/24 11:58 Ondansetron 4 Mg/2 Ml Vial IV Q8H PRN PRN NAUSEA/VOMITING Prednisolone Acetate 1 drp 01/07/24 14:00 01/11/24 10:14 Prednisolone Eye Drops (5 Ml) 1 Drop Opth.Btl OPHTHALMIC 1 drp 4X/DAY VERONICA Administration Senna/Docusate Sodium 2 tablet 01/07/24 11:58 Senna/Docusate Sodium 1 Tablet PO DAILY PRN constipation Sodium Chloride 10 - 40 ml 01/07/24 12:35 01/10/24 03:46 0.9% Saline Lock 10 Ml Syringe IV 20 ml UD PRN Administration SALINE FLUSH Lab / Micro Data Attestation: I reviewed the patient's lab results. 01/11/24 04:05 01/11/24 04:05 Labs: Laboratory Results - last 24 hr 01/10/24 11:36: POC Glucose 120 H 01/10/24 13:48: Hgb 7.2 L 01/10/24 17:14: POC Glucose 110 H 01/11/24 04:05: WBC 7.8, RBC 2.71 L, Hgb 7.2 L, Hct 24.9 L, MCV 91.9, MCH 26.6 L , MCHC 28.9 L, RDW Std Deviation 60.7 H, RDW Coeff of Vlad 18.6 H, Plt Count 33 L*, MPV 10.6, Immature Gran % (Auto) 1.700 H, Neut % (Auto) 79.6 H, Lymph % (Auto) 11.5 L, [place] % (Auto) 5.5, Eos % (Auto) 1.4, Baso % (Auto) 0.3, Absolute Neuts (auto) 6.3, Absolute Lymphs (auto) 0.90, Nucleated RBC % 0, Diff Path Review November, Platelet Estimate MKD DEC, Sodium 149 H, Potassium 3.1 L, C hloride 113 H, Carbon Dioxide 24.0, Anion Gap 12, BUN 53 H, Creatinine 4.02 H, Estim Creat Clear Calc 16.68, Est GFR (MDRD) Af Amer 14 L, Est GFR (MDRD) Non-Af 12 L, BUN/Creatinine Ratio 13.2, Glucose 101, Calcium 9.4, Phosphorus 4.3, Magnesium 1.8, Total Bilirubin 0.70, AST 25, ALT 33, Alkaline Phosphatase 74, T otal Protein 5.7 L, Albumin 2.0 L, Globulin 3.7, Albumin/Globulin Ratio 0.5 L Micro: Microbiology 01/07/24 09:17 Urine Catheter - Catheter Urine Culture - Final Lactobacillus casei Yeast, not Yulia albicans 01/08/24 10:05 Blood Culture (Wb) - Other Blood Culture - Final Enterococcus faecalis Rhythm Strip Rhythm Strip: Sinus Rhythm Rate: 60 Ectopy: None Assessment and Plan . Assessment and plan: IMPRESSIONS: 1. Septic shock secondary to VRE cystitis and bacteremia, improving quickly since catheter pulled 2. Toxic metabolic encephalopathy, resolving 3. End-stage renal disease on hemodialysis 4. Histories of anemia/thrombocytopenia/obesity/hypothyroidism/diabetes mellitus/chronic kidney disease/GERD/obstructive sleep apnea RECOMMENDATIONS: 1. Continue antimicrobials per ID recommendations. 2. DC norepinephrine 3. Dialysis support per nephrology recommendations. 4. Following platelet counts Critical Care Time: 50 minutes The entirety of this encounter was done via Telemedicine Physical Exam Const alert and oriented x3 General Appearance: cooperative HEENT head/scalp atraumatic Neck supple Resp normal respiratory effort Cardio regular rate Subjective Subjective Significant improvement noted overnight. Catheter pulled yesterday by General Surgery. Cognition improved, less moaning, responds appropriately to simple questions.
--- NOTE | 2024-01-11 12:17 | PN.HOSP_ITS ---
Reason for Visit Reason for Visit: Altered mental status Subjective Subjective Mentation is much improved. Patient is now alert and oriented x 3. No significant agitation currently. No complaints at this time. Off pressors since yesterday. Objective Data Objective Data Vital Signs: Vital Signs Temp Pulse Resp BP Pulse Ox O2 Del Method O2 Flow Rate 97.9 F 88 21 H 136/59 H 94 Nasal Cannula 3 01/11/24 08:00 01/11/24 09:00 01/11/24 09:00 01/11/24 09:00 01/11/24 11:26 01/11/24 11:26 01/11/24 11:26 FiO2 30 01/09/24 23:50 Oxygen Flow Rate (L/min) 3 Oxygen Delivery Method Nasal Cannula Weight: 106.7 kg Body Mass Index (BMI) 39.2 Intake & Output: Intake and Output for Last 24 Hours 01/09/24 01/10/24 01/11/24 23:59 23:59 23:59 Intake Total 742.76 / 744.64 430.37 / 430.37 100 / 100 Output Total 1375 / 1395 480 / 480 100 / 100 Balance -632.24 / -650.36 -49.63 / -49.63 0 / 0 Lab / Micro Data 01/11/24 04:05 01/11/24 04:05 Labs: Laboratory Results - last 24 hr 01/10/24 13:48: Hgb 7.2 L 01/10/24 17:14: POC Glucose 110 H 01/11/24 04:05: WBC 7.8, RBC 2.71 L, Hgb 7.2 L, Hct 24.9 L, MCV 91.9, MCH 26.6 L , MCHC 28.9 L, RDW Std Deviation 60.7 H, RDW Coeff of Vlad 18.6 H, Plt Count 33 L*, MPV 10.6, Immature Gran % (Auto) 1.700 H, Neut % (Auto) 79.6 H, Lymph % (Auto) 11.5 L, [place] % (Auto) 5.5, Eos % (Auto) 1.4, Baso % (Auto) 0.3, Absolute Neuts (auto) 6.3, Absolute Lymphs (auto) 0.90, Nucleated RBC % 0, Diff Path Review November, Platelet Estimate MKD DEC, Sodium 149 H, Potassium 3.1 L, C hloride 113 H, Carbon Dioxide 24.0, Anion Gap 12, BUN 53 H, Creatinine 4.02 H, Estim Creat Clear Calc 16.68, Est GFR (MDRD) Af Amer 14 L, Est GFR (MDRD) Non-Af 12 L, BUN/Creatinine Ratio 13.2, Glucose 101, Calcium 9.4, Phosphorus 4.3, Magnesium 1.8, Total Bilirubin 0.70, AST 25, ALT 33, Alkaline Phosphatase 74, T otal Protein 5.7 L, Albumin 2.0 L, Globulin 3.7, Albumin/Globulin Ratio 0.5 L Micro: Microbiology 01/07/24 09:17 Urine Catheter - Catheter Urine Culture - Final Lactobacillus casei Yeast, not Yulia albicans 01/08/24 10:05 Blood Culture (Wb) - Other Blood Culture - Final Enterococcus faecalis 01/07/24 08:37 Blood Culture (Wb) - Anticubital Left Blood Culture - Final GPC Poss Enterococcus sp 01/07/24 08:40 Blood Culture (Wb) - Left Hand Bacteria Detection (PCR) - Final Vancomycin Resist. E. faecalis 01/07/24 08:40 Blood Culture (Wb) - Left Hand Blood Culture - Final Vancomycin Resist. E. faecalis Rhythm Strip Rhythm Strip: Sinus Rhythm Rate: 60 Ectopy: None Physical Exam Const alert, oriented x3, no apparent distress and well nourished; Negative for average body habitus or healthy appearing Constitutional Narrative: Obese, white female, lying in bed, nursing at bedside, patient is now completely alert and oriented, no signs of agitation or combativeness, very cooperative, appears comfortable, does not appear toxic at this time HEENT normocephalic, head/scalp atraumatic, hearing grossly normal bilaterally and moist oral mucous membranes HEENT Narrative: Mallampati 3, no thrush Resp normal respiratory effort, no retractions, no use of accessory muscles and clear to auscultation bilaterally Auscultation: Negative for rales, rhonchi or wheezes Cardio regular rate, regular rhythm, S1 normal heart sound, S2 normal heart sound, no murmurs, no rub, no gallops and no clicks GI normal to inspection, nondistended, normoactive bowel sounds, soft to palpation and non-tender GI Narrative: Large protuberant abdomen Extremity no clubbing, cyanosis or edema Extremity Narrative: Pedal and radial pulses are 2+, bilateral leg tenderness with palpation Skin Skin Narrative: Left-sided IJ in place, right-sided tunneled dialysis catheter in place Neuro oriented x3, CN's II-XII intact bilaterally, moves all extremities and no focal motor deficits Neuro Narrative: Confusion has resolved Speech: speech normal Psych affect normal Psych Narrative: Eye contact is good and patient interacts appropriately Assessment & Plan Assessment/Plan (1) Hypotension: (2) UTI (urinary tract infection): (3) Thrombocytopenia: (4) Toxic metabolic encephalopathy: PLAN: Plan Septic shock secondary to VRE UTI and bacteremia -Shock has resolved and patient has been off pressors for about 24 hours now -Will transfer from ICU to PCU -Blood and urine cultures both positive for VRE -Continue daptomycin and cefepime -Continue midodrine 10 mg 3 times daily -Repeat cultures from 01/08/2024 remain positive -Repeat clearance cultures were done again on 01/11/2024 -Echocardiogram shows an EF of 70% with the inability to assess diastolic dysfunction and no valvular abnormalities or abscesses noted -If next other cultures are do not clear will need CY -Tunneled dialysis catheter removed on a.m. of 01/10/2024 -ID and pulmonary/critical care medicine following appreciate input Toxic/metabolic encephalopathy -Resolved -Patient is pretty close back to her baseline mental status -Secondary to severe infection as above Thrombocytopenia-acute on chronic -Baseline platelet counts appear to be 70 and 100,000 -Platelet count today at 33,000 -Repeat CBC in a.m. -Will hold chemoprophylaxis with subcu heparin at this time due to thrombocytopenia but once greater than 75,000 initiate subcu DVT prophylaxis End-stage renal disease -Dialysis dependent -Dialysis catheter removed today -Once cultures care can reinsert tunneled line however may need temporary line inserted on Friday if blood cultures remain positive -Will discuss further with nephrology after labs reviewed on Friday -Typical dialysis is MWF -Nephrology following Chronic hypoxic respiratory failure/SACHIN -BiPAP nocturnally--> patient is noncompliant at baseline with nocturnal BiPAP -Continue home oxygen as ordered -Typically on 4 L per previous documentation at baseline--> patient currently stable on 3 L -As needed bronchodilator therapy Chronic anemia -Baseline appears to be between 7.5 and 9 -Hemoglobin stable at this time at 7.2 --> no signs of bleeding and will continue to monitor -No signs of acute blood loss Chronic debility secondary to comorbid conditions -PT/OT to follow once more medically stable -Case management/social work consulted for assistance with discharge planning DM-2 -Had recent hemoglobin A1c in September and was 7.6 -Patient is currently not on anything for her blood sugars as an outpatient -Continue Levemir 8 units subcu -Continue sliding scale -Accu-Cheks as ordered -Patient now on renal carb controlled diet History of dysphagia -Diet as ordered per speech therapy next-speech therapy following-appreciate input Hypothyroidism -Continue home Synthroid GERD/esophageal stenosis/history of erosive gastropathy -Continue home Protonix--> transition back from IV to p.o. with improved mental status -Hemoglobin is stable Pulmonary hypertension -Likely related to morbid obesity and obstructive sleep apnea -Most recent echo shows a right ventricular systolic pressure of 40 mmHg -Continue dialysis for volume status management History of HFpEF -Currently compensated Restless leg syndrome -Continue ropinirole Diabetic neuropathy -Will hold gabapentin currently with somnolence Hyperlipidemia -Continue home fenofibrate -Continue home atorvastatin Obesity -BMI 39.2 -Recommend weight loss -Complicates treatment, prognosis, outcomes Depression -Continue home mirtazapine DVT prophylaxis -SCDs -chemoprophylaxis on hold due to thrombocytopenia CODE STATUS -Full code Charges/Coding Visit Charges Inpatient E&M: 07804 Subs Hosp L2
[2024-01-11] MEDS: Pantoprazole Sodium 40 MG in 0.9% Normal Saline (100mL MB+) 100 ML 330 MG IV (12:18)
[2024-01-11] MEDS: Acetaminophen 325 MG Tablet 650 MG PO (15:50)
[2024-01-11] MEDS: 0.9% Saline Lock 10 ML Syringe IV (15:52)
[2024-01-11 16:36] LABS: Bedside Glucose 105 mg/dL (74-106)
[2024-01-11 18:02] LABS: Bedside Glucose 78 mg/dL (74-106)
[2024-01-11 18:02] LABS: Bedside Glucose 101 mg/dL (74-106)
[2024-01-11] MEDS: Pantoprazole Sodium 40 MG Tablet PO (21:40)
[2024-01-11 22:14] LABS: Bedside Glucose 111 mg/dL (74-106)
[2024-01-12] VITALS (9 sets, daily range): BP systolic 109–127; BP diastolic 46–74; PULSE 87–101; RESP 12–22; TEMP 36.3–36.6; O2SAT 2–99; BMI 39.2; BMI 38.9
[2024-01-12 05:46] LABS: Absolute Lymphocyte Count 0.83 X10^3/uL (0.83-4.51); Absolute Neutrophil Count 6.6 X10^3/uL (2.0-7.7); Basophil# 0.01 X10^3/uL; Basophil% 0.1 % (0-1); Eosinophil# 0.11 X10^3/uL; Eosinophils% 1.3 % (0-5); Hematocrit 24.8 % (37-47); Hemoglobin 7.3 g/dL (12.0-15.0); Lymphocyte # 0.83 X10^3/ul (0.83-4.51); Lymphocyte % 10.1 % (19-41); Mean Corp Hgb Conc 29.4 g/dL (32-36); Mean Corpuscular Volume 91.9 fL (81-99); Mean Platelet Vol. 11.4 fl (6.2-12.0); Monocyte# 0.54 X10^3/uL; Monocyte% 6.6 % (0-10); NRBC Flagged by Analyzer 0 % (0-5); Neutrophil # 6.58 X10^3/uL (2.7-7.7); Neutrophil % 80.4 % (47-70); POSITIVE COUNT YES; RBC Distribution Width CV 18.3 % (11.6-14.6); RBC Distribution Width SD 60.2 fl (35.1-43.9); White Blood Count 8.2 K/mm3 (4.4-11.0)
[2024-01-12 05:54] LABS: Anion Gap 8 (5-15); BUN 55 mg/dL (7-18); BUN/Creat Ratio 13.6 RATIO (10-20); Calcium,Total 9.2 mg/dL (8.5-10.1); Chloride 116 mmol/L (98-107); Creatinine, Serum 4.05 mg/dL (0.55-1.02); EST Glomerular Filtration Rate 12 mL/min (>60); Est Glom Filt Rate - Afr Amer 14 mL/min (>60); Estimated Creatinine Clearance 16.51 ml/min; Glucose 97 mg/dL (74-106); Potassium 3.6 mmol/L (3.5-5.1); Sodium Level 148 mmol/L (136-145)
[2024-01-12 05:59] LABS: Differential Indicated SCAN CRITERIA MET; Platelet Count 44 K/mm3 (150-450)
[2024-01-12 06:13] LABS: International Normalized Ratio 1.2; Prothrombin Time (Protime)PT. 15.3 SECONDS (11.7-14.9)
[2024-01-12 06:15] LABS: Partial Thromboplast Time 62.3 Seconds (24.1-36.2)
[2024-01-12 06:53] LABS: Platelet Estimate MKD DEC (ADEQ)
[2024-01-12 07:06] LABS: Bedside Glucose 79 mg/dL (74-106)
--- NOTE | 2024-01-12 09:24 | CASEMGMT ---
Discharge Planning Updates sent via [facility] to [facility]. Louise King DC Planning Asst.
[2024-01-12] MEDS: NORMAL SALINE 0.9% IV (09:34)
[2024-01-12] MEDS: DAPTOMYCIN IV (09:34)
[2024-01-12] MEDS: 0.9% Saline Lock 10 ML Syringe IV (09:34)
[2024-01-12] MEDS: prednisoLONE eye drops (5 mL) 1 DROP OPTH.BTL 1 DRP OPHTHALMIC ×4 (09:40→21:23)
[2024-01-12] MEDS: Nystatin Powder 15gm Bottle 1 APPLIC TOPICAL ×2 (09:40→21:23)
[2024-01-12] MEDS: Pantoprazole Sodium 40 MG Tablet PO ×2 (09:42→21:23)
[2024-01-12] MEDS: Acetaminophen 325 MG Tablet 650 MG PO ×2 (09:47→16:43)
[2024-01-12 10:29] LABS: Hemoglobin A1c 5.3 % (3.8-5.6)
--- NOTE | 2024-01-12 11:16 | PN.HOSP_ITS ---
Reason for Visit Reason for Visit: Altered mental status Subjective Subjective No issues overnight. Patient is complaining that her butt is sore from sitting up in a chair. Overall patient appears clinically much improved. Remains alert and oriented x 3. No longer agitated or combative. Objective Data Objective Data Vital Signs: Vital Signs Temp Pulse Resp BP Pulse Ox O2 Del Method O2 Flow Rate 97.9 F 87 16 126/55 H 95 Nasal Cannula 2 01/12/24 09:20 01/12/24 09:20 01/12/24 09:20 01/12/24 09:20 01/12/24 09:57 01/12/24 09:29 01/12/24 09:57 FiO2 30 01/12/24 05:25 Oxygen Flow Rate (L/min) 2 Oxygen Delivery Method Nasal Cannula Weight: 106 kg Body Mass Index (BMI) 38.9 Intake & Output: Intake and Output for Last 24 Hours 01/10/24 01/11/24 01/12/24 23:59 23:59 23:59 Intake Total 430.37 / 430.37 680 / 680 1000 / 1000 Output Total 480 / 480 575 / 575 100 / 100 Balance -49.63 / -49.63 105 / 105 900 / 900 Lab / Micro Data 01/12/24 05:10 01/12/24 05:10 Labs: Laboratory Results - last 24 hr 01/11/24 08:37: POC Glucose 78 01/11/24 10:12: POC Glucose 101 01/11/24 16:10: POC Glucose 105 01/11/24 21:55: POC Glucose 111 H 01/12/24 05:10: WBC 8.2, RBC 2.70 L, Hgb 7.3 L, Hct 24.8 L, MCV 91.9, MCH 27.0, MCHC 29.4 L, RDW Std Deviation 60.2 H, RDW Coeff of Vlad 18.3 H, Plt Count 44 L*, MPV 11.4, Immature Gran % (Auto) 1.500 H, Neut % (Auto) 80.4 H, Lymph % (Auto) 10.1 L, [place] % (Auto) 6.6, Eos % (Auto) 1.3, Baso % (Auto) 0.1, Absolute Neuts (auto) 6.6, Absolute Lymphs (auto) 0.83, Nucleated RBC % 0, Diff Path Review May foll, Platelet Estimate MKD DEC, PT 15.3 H, INR 1.2, APTT 62.3 H, Sodium 148 H, Potassium 3.6, Chloride 116 H, Carbon Dioxide 24.0, Anion Gap 8, BUN 55 H, C reatinine 4.05 H, Estim Creat Clear Calc 16.51, Est GFR (MDRD) Af Amer 14 L, Est GFR (MDRD) Non-Af 12 L, BUN/Creatinine Ratio 13.6, Glucose 97, Hemoglobin A1c 5.3, Calcium 9.2 01/12/24 06:12: POC Glucose 79 Micro: Microbiology 01/07/24 09:17 Urine Catheter - Catheter Urine Culture - Final Lactobacillus casei Yeast, not Yulia albicans 01/08/24 10:05 Blood Culture (Wb) - Other Blood Culture - Final Enterococcus faecalis 01/07/24 08:37 Blood Culture (Wb) - Anticubital Left Blood Culture - Final GPC Poss Enterococcus sp 01/07/24 08:40 Blood Culture (Wb) - Left Hand Bacteria Detection (PCR) - Final Vancomycin Resist. E. faecalis 01/07/24 08:40 Blood Culture (Wb) - Left Hand Blood Culture - Final Vancomycin Resist. E. faecalis Rhythm Strip Rhythm Strip: Sinus Rhythm Rate: 60 Ectopy: None Physical Exam Const alert, oriented x3, no apparent distress and well nourished; Negative for average body habitus or healthy appearing Constitutional Narrative: Obese, white female, sitting up in a chair at the bedside, appears uncomfortable and complaining that her bottom hurts, nursing was notified and they will reposition her--> she was informed of this, does not appear toxic any longer HEENT normocephalic, head/scalp atraumatic, hearing grossly normal bilaterally and moist oral mucous membranes HEENT Narrative: Mallampati is 3, no thrush, mucous membranes are no longer dry Resp normal respiratory effort, no retractions, no use of accessory muscles and clear to auscultation bilaterally Resp Narrative: distant Auscultation: Negative for rales, rhonchi or wheezes Cardio regular rate, regular rhythm, S1 normal heart sound, S2 normal heart sound, no murmurs, no rub, no gallops and no clicks GI normal to inspection, nondistended, normoactive bowel sounds, soft to palpation and non-tender GI Narrative: Large protuberant abdomen Extremity no clubbing, cyanosis or edema Extremity Narrative: Pedal and radial pulses are 2+, bilateral leg tenderness with palpation Neuro oriented x3, CN's II-XII intact bilaterally, moves all extremities and no focal motor deficits Neuro Narrative: Confusion has resolved Speech: speech normal Psych affect normal Psych Narrative: Eye contact is good and patient interacts appropriately Assessment & Plan Assessment/Plan (1) Hypotension: (2) UTI (urinary tract infection): (3) Thrombocytopenia: (4) Toxic metabolic encephalopathy: PLAN: Plan Septic shock secondary to VRE UTI and bacteremia -Resolved septic shock -Blood and urine cultures both positive for VRE -Repeat clearance cultures are pending and if positive will need CY -Echocardiogram shows an EF of 70% with the inability to assess diastolic dysfunction and no valvular abnormalities or abscesses noted -Continue daptomycin and cefepime -Continue midodrine 10 mg 3 times daily for now -Repeat cultures from 01/08/2024 remain positive -Tunneled dialysis catheter removed on a.m. of 01/10/2024 -ID and pulmonary/critical care medicine following appreciate input Toxic/metabolic encephalopathy -Resolved Thrombocytopenia-acute on chronic -Baseline platelet counts appear to be 70 and 100,000 -Platelet count today at 44,000--> platelet count seems to be recovering with improvement of her infection -Repeat CBC in a.m. -Will hold chemoprophylaxis with subcu heparin at this time due to thrombocytopenia but once greater than 75,000 initiate subcu DVT prophylaxis End-stage renal disease -Dialysis dependent -Dialysis catheter removed 01/10/2024 -Will need to await clearance cultures for reinsertion of tunneled dialysis catheter -No dialysis needed today--> plan is to hold off and reevaluate tomorrow -Typical dialysis is MWF -Nephrology following Chronic hypoxic respiratory failure/SACHIN -BiPAP nocturnally--> patient is noncompliant at baseline with nocturnal BiPAP -Continue home oxygen as ordered -Typically on 4 L per previous documentation at baseline--> patient currently stable on 2 L -As needed bronchodilator therapy Hypernatremia/hyperchloremia -Continue very gentle D5 half-normal as a suspect oral to make is not great -Will discontinue once normalizes Chronic anemia -Baseline appears to be between 7.5 and 9 -Hemoglobin stable at this time at 7.3 --> no signs of bleeding and will continue to monitor -No signs of acute blood loss Chronic debility secondary to comorbid conditions -PT/OT to follow once more medically stable -Case management/social work consulted for assistance with discharge planning DM-2 -Had recent hemoglobin A1c in September and was 7.6 -Patient is currently not on anything for her blood sugars as an outpatient -Continue Levemir 8 units subcu--> fasting blood sugar this morning was 97 -May be able to discontinue soon since her blood sugars seem to be improving now that her infection is under better control -Continue sliding scale -Accu-Cheks as ordered -Patient now on renal carb controlled diet History of dysphagia -Diet as ordered per speech therapy -speech therapy following-appreciate input -Currently on a mechanical soft thin liquid diet with being a total feed Hypothyroidism -Continue home Synthroid GERD/esophageal stenosis/history of erosive gastropathy -Continue p.o. Protonix -Hemoglobin is stable Pulmonary hypertension -Likely related to morbid obesity and obstructive sleep apnea -Most recent echo shows a right ventricular systolic pressure of 40 mmHg -Continue dialysis for volume status management History of HFpEF -Currently compensated Restless leg syndrome -Continue ropinirole -Restart home nightly gabapentin Diabetic neuropathy -Will hold gabapentin currently with somnolence Hyperlipidemia -Continue home fenofibrate -Continue home atorvastatin Obesity -BMI 39.2 -Recommend weight loss -Complicates treatment, prognosis, outcomes Depression -Continue home mirtazapine DVT prophylaxis -SCDs -chemoprophylaxis on hold due to thrombocytopenia CODE STATUS -Full code Charges/Coding Visit Charges Inpatient E&M: 12423 Subs Hosp L2
[2024-01-12 12:29] LABS: Bedside Glucose 91 mg/dL (74-106)
--- NOTE | 2024-01-12 12:32 | CASEMGMT ---
Patient has a Healthcare Power of Velvet Weaver and a Healthcare Living Will. Both are on file at [facility]. Patient's brother Al is patient's Healthcare Power of Velvet Weaver. Varsha BELTRAN
[2024-01-12 13:37] LABS: Pathologist Review Reviewed
[2024-01-12 13:44] LABS: Pathologist Review Reviewed
[2024-01-12 13:45] LABS: Pathologist Review Reviewed
--- NOTE | 2024-01-12 16:40 | PCM.PN.ID ---
Physical Exam Narrative Feeling ok, no fever, no n/v/d. Const alert and no apparent distress General Appearance: cooperative Resp normal air movement and clear to auscultation bilaterally Cardio regular rate and regular rhythm GI soft to palpation, non-tender and non-distended Skin no rashes or lesions noted ID ID: Route of nutrition/ use of supplements: [] Nutritional Intake: [] IV Site: [] [place] Catheter: [] Assessment & Plan Assessment/Plan (1) Septic shock: PLAN: Septic shock due to VRE bacteremia (per pcr) with HD line in place - echo showed no veg. Prior admit to [facility] 09/2023 with MRSA bacteremia requiring HD line removal. Line removed 01/09. Cont dapto, will stop cefepime. Repeat bcx pending. Out of icu, off pressor. Will follow (2) VRE bacteremia: (3) ESRF (end stage renal failure):
[2024-01-12] MEDS: Pramipexole Di-HCl 1 MG Tablet PO ×2 (16:41→21:23)
[2024-01-12 17:10] LABS: Bedside Glucose 121 mg/dL (74-106)
[2024-01-12] MEDS: Mirtazapine 15 MG Tablet PO (21:23)
[2024-01-12] MEDS: Sucralfate 1 GM Tablet PO (21:23)
[2024-01-12] MEDS: Gabapentin 300 MG Capsule PO (21:23)
--- NOTE | 2024-01-12 22:08 | PCM.PN.REN ---
Subjective Subjective c/o back pain/buttcock area pain Objective Data Objective Data Vital Signs: Vital Signs Temp Pulse Resp BP Pulse Ox O2 Del Method O2 Flow Rate 97.9 F 87 16 110/46 L 97 Nasal Cannula 2 01/12/24 21:18 01/12/24 21:18 01/12/24 21:18 01/12/24 21:18 01/12/24 21:18 01/12/24 21:18 01/12/24 21:18 FiO2 30 01/12/24 05:25 Oxygen Flow Rate (L/min) 2 Oxygen Delivery Method Nasal Cannula Weight: 106 kg Body Mass Index (BMI) 38.9 Intake & Output: Intake and Output for Last 24 Hours 01/10/24 01/11/24 01/12/24 23:59 23:59 23:59 Intake Total 430.37 / 430.37 680 / 680 1306 / 1306 Output Total 480 / 480 575 / 575 450 / 450 Balance -49.63 / -49.63 105 / 105 856 / 856 Lab / Micro Data 01/12/24 05:10 01/12/24 05:10 Labs: Laboratory Results - last 24 hr 01/10/24 03:32: Diff Path Review Reviewed 01/11/24 04:05: Diff Path Review Reviewed 01/11/24 21:55: POC Glucose 111 H 01/12/24 05:10: WBC 8.2, RBC 2.70 L, Hgb 7.3 L, Hct 24.8 L, MCV 91.9, MCH 27.0, MCHC 29.4 L, RDW Std Deviation 60.2 H, RDW Coeff of Vlad 18.3 H, Plt Count 44 L*, MPV 11.4, Immature Gran % (Auto) 1.500 H, Neut % (Auto) 80.4 H, Lymph % (Auto) 10.1 L, [place] % (Auto) 6.6, Eos % (Auto) 1.3, Baso % (Auto) 0.1, Absolute Neuts (auto) 6.6, Absolute Lymphs (auto) 0.83, Nucleated RBC % 0, Diff Path Review Reviewed, Platelet Estimate MKD DEC, PT 15.3 H, INR 1.2, APTT 62.3 H, Sodium 148 H, Potassium 3.6, Chloride 116 H, Carbon Dioxide 24.0, Anion Gap 8, BUN 55 H, Creatinine 4.05 H, Estim Creat Clear Calc 16.51, Est GFR (MDRD) Af Amer 14 L, Est GFR (MDRD) Non-Af 12 L, BUN/Creatinine Ratio 13.6, Glucose 97, Hemoglobin A1c 5.3, Calcium 9.2 01/12/24 06:12: POC Glucose 79 01/12/24 12:01: POC Glucose 91 01/12/24 16:53: POC Glucose 121 H Micro: Microbiology 01/07/24 09:17 Urine Catheter - Catheter Urine Culture - Final Lactobacillus casei Yeast, not Yulia albicans 01/08/24 10:05 Blood Culture (Wb) - Other Blood Culture - Final Enterococcus faecalis 01/07/24 08:37 Blood Culture (Wb) - Anticubital Left Blood Culture - Final GPC Poss Enterococcus sp 01/07/24 08:40 Blood Culture (Wb) - Left Hand Bacteria Detection (PCR) - Final Vancomycin Resist. E. faecalis 01/07/24 08:40 Blood Culture (Wb) - Left Hand Blood Culture - Final Vancomycin Resist. E. faecalis Rhythm Strip Rhythm Strip: Sinus Rhythm Rate: 60 Ectopy: None Physical Exam Narrative General: Encephalopathic, does not follow commands. HEENT: Normocephalic, atraumatic. Mucous membrane dry without erythema. PERRLA. Neck: Supple, no JVD. Trachea is midline. No thyromegaly or lymphadenopathy. Cardiovascular: Normal S1, S2. No rubs, murmurs, or gallops. Respiratory: Lungs are coarse to auscultation anteriorly. Abdomen: Normal bowel sounds, soft, nontender, no guarding or rebound, no organomegaly. Extremities: No clubbing, cyanosis, or edema. 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 Patient presented to hospital from SNF on 01/07/2024 with altered mental status and hypotension. She was diagnosed with septic shock secondary to VRE bacteremia and UTI. Nephrology is following for ESRD. ESRD. Patient normally dialyzes at [facility] on MWF schedule. Patient missed dialysis on 01/07/2024 because of presentation to the hospital. Patient was dialyzed on 01/08/2024. HD friday line removed blood cultures yet to return negative labs are ok today dw Dr Szymanski. will wait till tomorrow. if cultures negative will plan for tunneled line otherwise may need temporary catheter
[2024-01-13 03:32] VITALS: O2SAT 87
[2024-01-13 03:35] VITALS: BP 115/45; PULSE 85; RESP 18; TEMP 36.4; O2SAT 94
[2024-01-13] MEDS: Pramipexole Di-HCl 1 MG Tablet PO ×2 (05:57→15:01)
[2024-01-13 07:08] LABS: Anion Gap 9 (5-15); BUN 62 mg/dL (7-18); BUN/Creat Ratio 13.9 RATIO (10-20); Calcium,Total 8.9 mg/dL (8.5-10.1); Chloride 119 mmol/L (98-107); Creatinine, Serum 4.45 mg/dL (0.55-1.02); EST Glomerular Filtration Rate 11 mL/min (>60); Est Glom Filt Rate - Afr Amer 13 mL/min (>60); Estimated Creatinine Clearance 14.97 ml/min; Glucose 86 mg/dL (74-106); Potassium 3.6 mmol/L (3.5-5.1); Sodium Level 151 mmol/L (136-145)
[2024-01-13 07:11] LABS: Bedside Glucose 79 mg/dL (74-106)
[2024-01-13 07:11] LABS: Bedside Glucose 92 mg/dL (74-106)
--- NOTE | 2024-01-13 07:50 | PN_ITS ---
Progress Note Patient was still mildly confused. Assessment & Plan Assessment/Plan (1) VRE bacteremia: PLAN: Patient had catheter removed Friday for bacteremia. Awaiting cultures. She will either need temporary line or no timeline. Waiting for culture results for decision. Brian Burton MD Pager: [facility] [address] [place] [address], [address] [place] [address] Office:
--- NOTE | 2024-01-13 07:50 | PCM.PN.BLA ---
Progress Note Patient was still mildly confused. Assessment & Plan Assessment/Plan (1) VRE bacteremia: PLAN: Patient had catheter removed Friday for bacteremia. Awaiting cultures. She will either need temporary line or no timeline. Waiting for culture results for decision. Brian Burton MD Pager: [facility] [address] [place] [address], [address] [place] [address] Office:
[2024-01-13 09:49] VITALS: BP 95/57; PULSE 75; RESP 17; TEMP 36.5; O2SAT 99
[2024-01-13] MEDS: Sucralfate 1 GM Tablet PO (09:53)
[2024-01-13] MEDS: Nystatin Powder 15gm Bottle 1 APPLIC TOPICAL ×2 (09:53→21:20)
[2024-01-13] MEDS: Pantoprazole Sodium 40 MG Tablet PO (09:53)
[2024-01-13] MEDS: Acetaminophen 325 MG Tablet 650 MG PO (09:53)
[2024-01-13] MEDS: prednisoLONE eye drops (5 mL) 1 DROP OPTH.BTL 1 DRP OPHTHALMIC ×3 (09:54→21:20)
[2024-01-13] MEDS: 0.9% Saline Lock 10 ML Syringe IV ×2 (09:54→14:56)
[2024-01-13 09:57] LABS: Basophil% 0.4 % (0-1); Eosinophils% 1.4 % (0-5); Hematocrit 24.3 % (37-47); Lymphocyte % 17.3 % (19-41); Mean Corp Hgb Conc 28.8 g/dL (32-36); Mean Corpuscular Hgb 26.7 pg (27.0-32.0); Mean Corpuscular Volume 92.7 fL (81-99); Mean Platelet Vol. 11.6 fl (6.2-12.0); Monocyte% 9.7 % (0-10); Neutrophil % 68.9 % (47-70); Platelet Count 59 K/mm3 (150-450); RBC Distribution Width CV 18.4 % (11.6-14.6); RBC Distribution Width SD 60.4 fl (35.1-43.9); Red Blood Count 2.62 M/mm3 (4.2-5.4)
[2024-01-13 09:58] LABS: Absolute Lymphocyte Count 1.22 X10^3/uL (0.83-4.51); Absolute Neutrophil Count 4.9 X10^3/uL (2.0-7.7); Basophil# 0.03 X10^3/uL; Lymphocyte # 1.22 X10^3/ul (0.83-4.51); Monocyte# 0.68 X10^3/uL; Neutrophil # 4.85 X10^3/uL (2.7-7.7)
--- NOTE | 2024-01-13 10:05 | NURSING ---
Patient dropped x1 Tylenol (325mg) on the floor; another dose of 325mg pulled and administered to the patient.
[2024-01-13 10:56] VITALS: O2SAT 97
--- NOTE | 2024-01-13 10:57 | PN.RENAL_ITS ---
Subjective Subjective No new events. Objective Data Objective Data Vital Signs: Vital Signs Temp Pulse Resp BP Pulse Ox O2 Del Method O2 Flow Rate 97.7 F L 75 17 95/57 L 99 Nasal Cannula 2 01/13/24 09:49 01/13/24 09:49 01/13/24 09:49 01/13/24 09:49 01/13/24 09:49 01/13/24 10:06 01/13/24 10:06 FiO2 30 01/12/24 05:25 Oxygen Flow Rate (L/min) 2 Oxygen Delivery Method Nasal Cannula Weight: 106 kg Body Mass Index (BMI) 38.9 Intake & Output: Intake and Output for Last 24 Hours 01/11/24 01/12/24 01/13/24 23:59 23:59 23:59 Intake Total 680 / 680 1306 / 1306 Output Total 575 / 575 600 / 600 Balance 105 / 105 706 / 706 Lab / Micro Data 01/13/24 05:05 01/13/24 05:05 Labs: Laboratory Results - last 24 hr 01/10/24 03:32: Diff Path Review Reviewed 01/11/24 04:05: Diff Path Review Reviewed 01/12/24 05:10: Diff Path Review Reviewed 01/12/24 12:01: POC Glucose 91 01/12/24 16:53: POC Glucose 121 H 01/12/24 21:20: POC Glucose 92 01/13/24 05:05: WBC 7.0, RBC 2.62 L, Hgb 7.0 L, Hct 24.3 L, MCV 92.7, MCH 26.7 L , MCHC 28.8 L, RDW Std Deviation 60.4 H, RDW Coeff of Vlad 18.4 H, Plt Count 59 L , MPV 11.6, Immature Gran % (Auto) 2.300 H, Neut % (Auto) 68.9, Lymph % (Auto) 17.3 L, [place] % (Auto) 9.7, Eos % (Auto) 1.4, Baso % (Auto) 0.4, Absolute Neuts (auto) 4.9, Absolute Lymphs (auto) 1.22, Sodium 151 H, Potassium 3.6, Chloride 119 H, Carbon Dioxide 23.0, Anion Gap 9, BUN 62 H, Creatinine 4.45 H, Estim Creat Clear Calc 14.97, Est GFR (MDRD) Af Amer 13 L, Est GFR (MDRD) Non-Af 11 L, BUN/Creatinine Ratio 13.9, Glucose 86, Calcium 8.9 01/13/24 06:21: POC Glucose 79 Micro: Microbiology 01/07/24 09:17 Urine Catheter - Catheter Urine Culture - Final Lactobacillus casei Yeast, not Yulia albicans 01/08/24 10:05 Blood Culture (Wb) - Other Blood Culture - Final Enterococcus faecalis 01/07/24 08:37 Blood Culture (Wb) - Anticubital Left Blood Culture - Final GPC Poss Enterococcus sp 01/07/24 08:40 Blood Culture (Wb) - Left Hand Bacteria Detection (PCR) - Final Vancomycin Resist. E. faecalis 01/07/24 08:40 Blood Culture (Wb) - Left Hand Blood Culture - Final Vancomycin Resist. E. faecalis Rhythm Strip Rhythm Strip: Sinus Rhythm Rate: 60 Ectopy: None Physical Exam Narrative HEENT: Normocephalic, atraumatic. Mucous membrane dry without erythema. PERRLA. Neck: Supple, no JVD. Trachea is midline. No thyromegaly or lymphadenopathy. Cardiovascular: Normal S1, S2. No rubs, murmurs, or gallops. Respiratory: Lungs are coarse to auscultation anteriorly. Abdomen: Normal bowel sounds, soft, nontender, no guarding or rebound, no organomegaly. Extremities: No clubbing, cyanosis, or edema. 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 Patient presented to hospital from SNF on 01/07/2024 with altered mental status and hypotension. She was diagnosed with septic shock secondary to VRE bacteremia and UTI. Nephrology is following for ESRD. ESRD. Patient normally dialyzes at [facility] on MWF schedule. Patient missed dialysis on 01/07/2024 because of presentation to the hospital. Patient was dialyzed on 01/08/2024. HD friday line removed Blood cultures are still pending. Today her potassium is normal. Breathing is okay on 2 L of nasal cannula. Blood cultures are still pending. We will wait on the catheter for 1 more day. If blood cultures are negative tomorrow, we will have a tunneled dialysis catheter placed. If still positive, will need a temporary catheter tomorrow. Hypernatremia. Due to lack of oral intake. On low-dose D5 water. Discussed with hospitalist about plan
[2024-01-13] MEDS: Dextrose 5%-Water (1000mL Bag) 1,000 ML 60 ML IV (11:05)
[2024-01-13 11:47] LABS: Bedside Glucose 95 mg/dL (74-106)
--- NOTE | 2024-01-13 14:08 | PCM.PN.HOSP ---
Reason for Visit Reason for Visit: Altered mental status Subjective Subjective No issues overnight. Patient sleeping at the time of my evaluation. Slowly improving clinically. Objective Data Objective Data Vital Signs: Vital Signs Temp Pulse Resp BP Pulse Ox O2 Del Method O2 Flow Rate 97.7 F L 75 17 95/57 L 97 Nasal Cannula 3 01/13/24 09:49 01/13/24 09:49 01/13/24 09:49 01/13/24 09:49 01/13/24 10:56 01/13/24 10:56 01/13/24 10:56 FiO2 30 01/12/24 05:25 Oxygen Flow Rate (L/min) 3 Oxygen Delivery Method Nasal Cannula Weight: 106 kg Body Mass Index (BMI) 38.9 Intake & Output: Intake and Output for Last 24 Hours 01/11/24 01/12/24 01/13/24 23:59 23:59 23:59 Intake Total 680 / 680 1306 / 1306 Output Total 575 / 575 600 / 600 Balance 105 / 105 706 / 706 Lab / Micro Data 01/13/24 05:05 01/13/24 05:05 Labs: Laboratory Results - last 24 hr 01/12/24 16:53: POC Glucose 121 H 01/12/24 21:20: POC Glucose 92 01/13/24 05:05: WBC 7.0, RBC 2.62 L, Hgb 7.0 L, Hct 24.3 L, MCV 92.7, MCH 26.7 L, MCHC 28.8 L, RDW Std Deviation 60.4 H, RDW Coeff of Vlad 18.4 H, Plt Count 59 L, MPV 11.6, Immature Gran % (Auto) 2.300 H, Neut % (Auto) 68.9, Lymph % (Auto) 17.3 L, [place] % (Auto) 9.7, Eos % (Auto) 1.4, Baso % (Auto) 0.4, Absolute Neuts (auto) 4.9, Absolute Lymphs (auto) 1.22, Sodium 151 H, Potassium 3.6, Chloride 119 H, Carbon Dioxide 23.0, Anion Gap 9, BUN 62 H, Creatinine 4.45 H, Estim Creat Clear Calc 14.97, Est GFR (MDRD) Af Amer 13 L, Est GFR (MDRD) Non-Af 11 L, BUN/Creatinine Ratio 13.9, Glucose 86, Calcium 8.9 01/13/24 06:21: POC Glucose 79 01/13/24 11:21: POC Glucose 95 Micro: Microbiology 01/11/24 11:18 Blood Culture (Wb) - Anticubital Left Blood Culture - Preliminary No growth in 48 hours. 01/07/24 09:17 Urine Catheter - Catheter Urine Culture - Final Lactobacillus casei Yeast, not Yulia albicans 01/08/24 10:05 Blood Culture (Wb) - Other Blood Culture - Final Enterococcus faecalis 01/07/24 08:37 Blood Culture (Wb) - Anticubital Left Blood Culture - Final GPC Poss Enterococcus sp 01/07/24 08:40 Blood Culture (Wb) - Left Hand Bacteria Detection (PCR) - Final Vancomycin Resist. E. faecalis 01/07/24 08:40 Blood Culture (Wb) - Left Hand Blood Culture - Final Vancomycin Resist. E. faecalis Rhythm Strip Rhythm Strip: Sinus Rhythm Rate: 60 Ectopy: None Physical Exam Const no apparent distress and well nourished; Negative for average body habitus or healthy appearing Constitutional Narrative: Obese, white female, lying in bed sleeping, appears comfortable, nontoxic HEENT normocephalic and head/scalp atraumatic Resp normal respiratory effort, no retractions, no use of accessory muscles and clear to auscultation bilaterally Resp Narrative: distant Auscultation: Negative for rales, rhonchi or wheezes Cardio regular rate, regular rhythm, S1 normal heart sound, S2 normal heart sound, no murmurs, no rub, no gallops and no clicks GI normal to inspection, nondistended, normoactive bowel sounds, soft to palpation and non-tender GI Narrative: Large protuberant abdomen Extremity Extremity Narrative: Pedal and radial pulses are 2+, trace bilateral lower extremity pitting edema with no cyanosis or clubbing Skin Skin Narrative: Left-sided IJ in place, right-sided tunneled dialysis catheter in place Neuro Neuro Narrative: Patient sleeping but per nursing mentation is remaining at baseline Assessment & Plan Assessment/Plan (1) Hypotension: (2) UTI (urinary tract infection): (3) Thrombocytopenia: (4) Toxic metabolic encephalopathy: PLAN: Plan Septic shock secondary to VRE UTI and bacteremia -Resolved septic shock -Blood and urine cultures both positive for VRE -Clearance cultures are now negative -Currently on daptomycin -Echocardiogram shows an EF of 70% with the inability to assess diastolic dysfunction and no valvular abnormalities or abscesses noted -Continue daptomycin and cefepime -Continue midodrine 10 mg 3 times daily for now--> wean as blood pressure allows -Repeat cultures from 01/08/2024 remain positive -Tunneled dialysis catheter removed on a.m. of 01/10/2024--> now with negative cultures at 48 hours plan is to reinsert tunneled dialysis catheter tomorrow at 1:30 PM -Discussed with infectious disease, general surgery and nephrology -ID and pulmonary/critical care medicine following appreciate input Thrombocytopenia-acute on chronic -Baseline platelet counts appear to be 70 and 100,000 -Platelet count is recovering and now up to 59,000 -Repeat CBC in a.m. -Will hold chemoprophylaxis with subcu heparin at this time due to thrombocytopenia but once greater than 75,000 initiate subcu DVT prophylaxis End-stage renal disease -Dialysis dependent -Dialysis catheter removed 01/10/2024 -To be replaced tomorrow -Typical dialysis is MWF -Nephrology following Chronic hypoxic respiratory failure/SACHIN -BiPAP nocturnally--> patient is noncompliant at baseline with nocturnal BiPAP -Continue home oxygen as ordered -Typically on 4 L per previous documentation at baseline--> has been stable here on 2 to 3 L -As needed bronchodilator therapy Hypernatremia/hyperchloremia -Continue very gentle D5W at 60 cc/h as a suspect oral to make is not great -Will discontinue once normalizes Chronic anemia -Baseline appears to be between 7.5 and 9 -Hemoglobin stable at this time at 7.0 today however patient was not dialyzed yesterday and I do expect after dialysis her hemoglobin showed an improve -No signs of acute blood loss Chronic debility secondary to comorbid conditions -PT/OT to follow once more medically stable -Case management/social work consulted for assistance with discharge planning DM-2 -Had recent hemoglobin A1c in September and was 7.6 -Patient is currently not on anything for her blood sugars as an outpatient -Has been on Levemir 8 units subcu--> fasting blood sugar this morning was 86 -Discontinue Levemir--> suspect acute elevation was related to infection -Continue sliding scale -Accu-Cheks as ordered -Patient now on renal carb controlled diet History of dysphagia -Diet as ordered per speech therapy -speech therapy following-appreciate input -Currently on a mechanical soft thin liquid diet with being a total feed Hypothyroidism -Continue home Synthroid GERD/esophageal stenosis/history of erosive gastropathy -Continue p.o. Protonix -Hemoglobin is stable Pulmonary hypertension -Likely related to morbid obesity and obstructive sleep apnea -Most recent echo shows a right ventricular systolic pressure of 40 mmHg -Continue dialysis for volume status management History of HFpEF -Currently compensated Restless leg syndrome -Continue ropinirole -Restart home nightly gabapentin Diabetic neuropathy -Will hold gabapentin currently with somnolence Hyperlipidemia -Continue home fenofibrate -Continue home atorvastatin Obesity -BMI 39.2 -Recommend weight loss -Complicates treatment, prognosis, outcomes Depression -Continue home mirtazapine DVT prophylaxis -SCDs -chemoprophylaxis on hold due to thrombocytopenia CODE STATUS -Full code Charges/Coding Visit Charges Inpatient E&M: 54983 Subs Hosp L2
[2024-01-13 14:47] VITALS: BP 105/52; PULSE 73; RESP 16; TEMP 36.5; O2SAT 96
--- NOTE | 2024-01-13 14:48 | CASEMGMT ---
Dr Dickerson gave WES a prescription for an IV antibiotic patient will get at discharge with dialysis. WES called Alethea at [facility] and notified her as well as faxed the script. WES let Alethea know that patient will be getting a tunneled dialysis catheter placed tomorrow. Alethea asked that the operative report be faxed when done. WES also sent a copy of the script to [facility]. Varsha Villatoro [employer]
[2024-01-13 15:08] VITALS: BMI 38.9
--- NOTE | 2024-01-13 15:23 | PN.ID_ITS ---
Physical Exam Narrative Sleeping now, no fever Const no apparent distress Resp normal air movement and clear to auscultation bilaterally Cardio regular rate and regular rhythm GI soft to palpation, non-tender and non-distended Skin no rashes or lesions noted ID ID: Route of nutrition/ use of supplements: [] Nutritional Intake: [] IV Site: [] Lyons Catheter: [] Assessment & Plan Assessment/Plan (1) Septic shock: PLAN: Septic shock due to VRE bacteremia with HD line in place - echo showed no veg. Prior admit to [facility] 09/2023 with MRSA bacteremia requiring HD line removal. Line removed 01/09. Cont dapto. Repeat bcx neg so far. Out of icu, off pressor. Ok for line placement tomorrow as long as bcx remain neg. Will write for iv dapto dosed with HD at discharge. Will follow (2) VRE bacteremia: (3) ESRF (end stage renal failure):
[2024-01-13 17:01] LABS: Bedside Glucose 101 mg/dL (74-106)
[2024-01-13 21:10] VITALS: BP 119/50; PULSE 68; RESP 18; TEMP 36.3; O2SAT 99
--- NOTE | 2024-01-13 22:00 | NURSING ---
pt threw up while trying to give pills. MD notified, speech therapy consulted.
[2024-01-13 22:47] LABS: Bedside Glucose 95 mg/dL (74-106)
--- NOTE | 2024-01-13 23:39 | CPS ---
Patient not ready to go on machine at this time.
[2024-01-14] VITALS (16 sets, daily range): BP systolic 90–164; BP diastolic 37–53; PULSE 63–79; RESP 12–25; TEMP 36.4–36.9; O2SAT 92–100; BMI 38.3; BMI 38.0
[2024-01-14] MEDS: Dextrose 5%-Water (1000mL Bag) 1,000 ML 60 ML IV ×2 (03:18→21:06)
--- NOTE | 2024-01-14 05:55 | EKG12_ITS ---
Test Reason : AM EKG Blood Pressure : / mmHG Vent. Rate : 071 BPM Atrial Rate : 071 BPM P-R Int : 184 ms QRS Dur : 088 ms QT Int : 414 ms P-R-T Axes : 055 -14 051 degrees QTc Int : 449 ms Sinus rhythm with occasional Premature ventricular complexes Low voltage QRS Borderline ECG When compared with ECG of 07-JAN-2024 08:33, Premature ventricular complexes are now Present NV interval has decreased Confirmed by Dawood Rand ([id number]), medical transcription editor HARSHIL CARDONA ([id number]) on 01/15/2024 11:20:09 AM Referred By: DAVID Confirmed By:Dawood Rand
[2024-01-14 05:56] LABS: Absolute Lymphocyte Count 1.16 X10^3/uL (0.83-4.51); Absolute Neutrophil Count 4.7 X10^3/uL (2.0-7.7); Basophil# 0.03 X10^3/uL; Basophil% 0.4 % (0-1); Eosinophil# 0.13 X10^3/uL; Eosinophils% 1.9 % (0-5); Hematocrit 24.9 % (37-47); Lymphocyte # 1.16 X10^3/ul (0.83-4.51); Lymphocyte % 17.4 % (19-41); Mean Corp Hgb Conc 28.1 g/dL (32-36); Mean Corpuscular Hgb 26.4 pg (27.0-32.0); Mean Platelet Vol. 11.2 fl (6.2-12.0); Monocyte# 0.56 X10^3/uL; Monocyte% 8.4 % (0-10); NRBC Flagged by Analyzer 0 % (0-5); Neutrophil # 4.66 X10^3/uL (2.7-7.7); POSITIVE COUNT YES; Platelet Count 88 K/mm3 (150-450); RBC Distribution Width CV 18.3 % (11.6-14.6); RBC Distribution Width SD 61.4 fl (35.1-43.9); Red Blood Count 2.65 M/mm3 (4.2-5.4); White Blood Count 6.7 K/mm3 (4.4-11.0)
[2024-01-14 06:06] LABS: International Normalized Ratio 1.3; Prothrombin Time (Protime)PT. 16.3 SECONDS (11.7-14.9)
[2024-01-14 06:08] LABS: Partial Thromboplast Time 61.7 Seconds (24.1-36.2)
[2024-01-14 06:22] LABS: Anion Gap 8 (5-15); BUN 66 mg/dL (7-18); BUN/Creat Ratio 14.3 RATIO (10-20); Calcium,Total 8.9 mg/dL (8.5-10.1); Chloride 117 mmol/L (98-107); Creatinine, Serum 4.62 mg/dL (0.55-1.02); EST Glomerular Filtration Rate 10 mL/min (>60); Est Glom Filt Rate - Afr Amer 12 mL/min (>60); Glucose 114 mg/dL (74-106); Potassium 3.8 mmol/L (3.5-5.1); Sodium Level 148 mmol/L (136-145)
[2024-01-14 06:28] LABS: Bedside Glucose 101 mg/dL (74-106)
--- NOTE | 2024-01-14 09:18 | PCM.PN.HOSP ---
Reason for Visit Reason for Visit: Diagnoses Sepsis, unspecified organism (01/07/24) Enterococcus as the cause of diseases classified elsewhere (01/07/24) Thrombocytopenia, unspecified (01/07/24) Other toxic encephalopathy (01/07/24) Hypotension, unspecified (01/07/24) End stage renal disease (01/07/24) Urinary tract infection, site not specified (01/07/24) Severe sepsis with septic shock (01/07/24) Bacteremia (01/07/24) Resistance to vancomycin (01/07/24) Subjective Subjective No new events. Objective Data Objective Data Vital Signs: Vital Signs Temp Pulse Resp BP Pulse Ox O2 Del Method O2 Flow Rate 36.4 C L 68 18 135/53 H 92 Nasal Cannula 2 01/14/24 03:16 01/14/24 03:16 01/14/24 03:16 01/14/24 03:16 01/14/24 08:31 01/14/24 05:24 01/14/24 08:31 FiO2 30 01/14/24 03:16 Oxygen Flow Rate (L/min) 2 Oxygen Delivery Method Nasal Cannula Weight: 104.5 kg Body Mass Index (BMI) 38.3 Intake & Output: Intake and Output for Last 24 Hours 01/12/24 01/13/24 01/14/24 23:59 23:59 23:59 Intake Total 1306 / 1306 973 / 973 Output Total 600 / 600 200 / 200 100 / 100 Balance 706 / 706 -200 / -200 873 / 873 Lab / Micro Data 01/14/24 05:32 01/14/24 05:32 Labs: Laboratory Results - last 24 hr 01/13/24 05:05: WBC 7.0, RBC 2.62 L, Hgb 7.0 L, Hct 24.3 L, MCV 92.7, MCH 26.7 L, MCHC 28.8 L, RDW Std Deviation 60.4 H, RDW Coeff of Vlad 18.4 H, Plt Count 59 L, MPV 11.6, Immature Gran % (Auto) 2.300 H, Neut % (Auto) 68.9, Lymph % (Auto) 17.3 L, [place] % (Auto) 9.7, Eos % (Auto) 1.4, Baso % (Auto) 0.4, Absolute Neuts (auto) 4.9, Absolute Lymphs (auto) 1.22, Sodium 151 H, Potassium 3.6, Chloride 119 H, Carbon Dioxide 23.0, Anion Gap 9, BUN 62 H, Creatinine 4.45 H, Estim Creat Clear Calc 14.97, Est GFR (MDRD) Af Amer 13 L, Est GFR (MDRD) Non-Af 11 L, BUN/Creatinine Ratio 13.9, Glucose 86, Calcium 8.9 01/13/24 11:21: POC Glucose 95 01/13/24 16:33: POC Glucose 101 01/13/24 21:12: POC Glucose 95 01/14/24 05:32: WBC 6.7, RBC 2.65 L, Hgb 7.0 L, Hct 24.9 L, MCV 94.0, MCH 26.4 L, MCHC 28.1 L, RDW Std Deviation 61.4 H, RDW Coeff of Vlad 18.3 H, Plt Count 88 L, MPV 11.2, Immature Gran % (Auto) 1.900 H, Neut % (Auto) 70.0, Lymph % (Auto) 17.4 L, Jefferson % (Auto) 8.4, Eos % (Auto) 1.9, Baso % (Auto) 0.4, Absolute Neuts (auto) 4.7, Absolute Lymphs (auto) 1.16, Nucleated RBC % 0, PT 16.3 H, INR 1.3, APTT 61.7 H, Sodium 148 H, Potassium 3.8, Chloride 117 H, Carbon Dioxide 23.0, Anion Gap 8, BUN 66 H, Creatinine 4.62 H, Estim Creat Clear Calc 14.30, Est GFR (MDRD) Af Amer 12 L, Est GFR (MDRD) Non-Af 10 L, BUN/Creatinine Ratio 14.3, Glucose 114 H, Calcium 8.9 01/14/24 06:07: POC Glucose 101 Micro: Microbiology 01/11/24 11:18 Blood Culture (Wb) - Anticubital Left Blood Culture - Preliminary 01/07/24 09:17 Urine Catheter - Catheter Urine Culture - Final Lactobacillus casei Yeast, not Yulia albicans 01/08/24 10:05 Blood Culture (Wb) - Other Blood Culture - Final Enterococcus faecalis 01/07/24 08:37 Blood Culture (Wb) - Anticubital Left Blood Culture - Final GPC Poss Enterococcus sp 01/07/24 08:40 Blood Culture (Wb) - Left Hand Bacteria Detection (PCR) - Final Vancomycin Resist. E. faecalis 01/07/24 08:40 Blood Culture (Wb) - Left Hand Blood Culture - Final Vancomycin Resist. E. faecalis Rhythm Strip Rhythm Strip: Sinus Rhythm Rate: 60 Ectopy: None Physical Exam Const alert and no apparent distress HEENT head/scalp atraumatic and moist oral mucous membranes Neck no lymphadenopathy Resp normal respiratory effort, no retractions and no use of accessory muscles Cardio regular rate, regular rhythm, S1 normal heart sound and S2 normal heart sound GI normal to inspection, nondistended, normoactive bowel sounds, soft to palpation and non-tender Assessment & Plan Assessment/Plan (1) Hypotension: (2) UTI (urinary tract infection): (3) Thrombocytopenia: (4) Toxic metabolic encephalopathy: PLAN: Plan Septic shock secondary to VRE UTI and bacteremia Resolved Blood and urine cultures both positive for VRE Currently on daptomycin Echocardiogram shows an EF of 70% with the inability to assess diastolic dysfunction and no valvular abnormalities or abscesses noted Continue daptomycin and cefepime Repeat cultures from 01/08/2024 remain positive Tunneled dialysis catheter removed on a.m. of 01/10/2024 blood culture on the positive. From the still pending. Discussed with Dr. Weir, who recommends against placing a tunneled dialysis catheter at this time recommending a temporary line. Informed Dr. Burton who deferred temporary line placement to Dr. Weir, but will be available to tunnelled line when appropriate. Dr. Weir and I placed left IJ temporary dialysis catheter on 01/13 (see procedure note) End-stage renal disease Dialysis dependent-Dialysis catheter removed 01/10/2024 Nephrology following. 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--> patient is noncompliant at baseline with nocturnal BiPAP-Continue home oxygen as ordered-Typically on 4 L per previous documentation at baseline--> has been stable here on 2 to 3 L-As needed bronchodilator therapy Chronic anemia-Baseline appears to be between 7.5 and 9-Hemoglobin stable at this time at 7.0 today however patient was not dialyzed yesterday and I do expect after dialysis her hemoglobin showed an improve-No signs of acute blood loss DM-2-Had recent hemoglobin A1c in September and was 7.6-Patient is currently not on anything for her blood sugars as an outpatient-Has been on Levemir 8 units subcu--> fasting blood sugar this morning was 86 -Discontinue Levemir--> suspect acute elevation was related to infection-Continue sliding peghc-Bjvr-Vhxhn as ordered-Patient now on renal carb controlled diet History of dysphagia-Diet as ordered per speech therapy -speech therapy following-appreciate input-Currently on a mechanical soft thin liquid diet with being a total feed Hypothyroidism-Continue home Synthroid GERD/esophageal stenosis/history of erosive gastropathy-Continue p.o. Protonix-Hemoglobin is stable Pulmonary hypertension-Likely related to morbid obesity and obstructive sleep apnea-Most recent echo shows a right ventricular systolic pressure of 40 mmHg-Continue dialysis for volume status management History of HFpEF-Currently compensated Restless leg syndrome-Continue ropinirole-Restart home nightly gabapentin Diabetic neuropathy-Will hold gabapentin currently with somnolence Hyperlipidemia-Continue home fenofibrate-Continue home atorvastatin Obesity-BMI 39.2-Recommend weight loss-Complicates treatment, prognosis, outcomes Depression-Continue home mirtazapine DVT prophylaxis SCDs CODE STATUS-Full code Charges/Coding Visit Charges Inpatient E&M: 17608 Subs Hosp L2
--- NOTE | 2024-01-14 09:48 | CASEMGMT ---
Addendum entered by Varsha Villatoro 01/14/24 12:08: SW was informed patient received a temporary dialysis catheter today not a tunneled. Per physician patient will get a tunneled dialysis catheter prior to discharge once cultures are negative. WES notified [facility]. Varsha BELTRAN Original Note: WES sent updates to [facility] and asked that they start per-cert. WES also let [facility] know that patient is getting a tunneled dialysis catheter placed today. Varsha BELTRAN
[2024-01-14] MEDS: Nystatin Powder 15gm Bottle 1 APPLIC TOPICAL ×2 (11:57→21:07)
[2024-01-14] MEDS: prednisoLONE eye drops (5 mL) 1 DROP OPTH.BTL 1 DRP OPHTHALMIC ×2 (11:57→21:07)
--- NOTE | 2024-01-14 12:00 | RAD_ITS ---
STUDY: X-RAY CHEST REASON FOR EXAM: Female, 63 years old. Line placement. TECHNIQUE: Single frontal view of the chest. COMPARISON: January 08, 2024 FINDINGS: Only support device present now is a left internal jugular catheter with tip projected over the lower SVC. Stable chest with cardiomegaly, aortic tortuosity, mild diffuse interstitial pattern and probable small left effusion. Findings most compatible with mild interstitial edema/congestive failure and follow-up chest imaging to resolution is recommended. No abnormality of the visualized soft tissue structures of the upper abdomen. RAD/Chest 1 View (Portable) IMPRESSION: Left internal jugular catheter with tip projected over the lower SVC. Findings a mild interstitial edema/congestive failure for which follow-up chest imaging to resolution is recommended. Electronically Signed: Humphrey Velez MD at 12:13 EDT ,
[2024-01-14 12:33] LABS: Bedside Glucose 118 mg/dL (74-106)
[2024-01-14] MEDS: 0.9% Normal Saline 1,000 ML IV.SOLN. 1000 ML OPERA.SITE (12:43)
[2024-01-14] MEDS: PureFlow B 4K Dialysis Soln 1 BAG BAG 6 BAG PF (12:43)
[2024-01-14] MEDS: 0.9% Saline Lock 10 ML Syringe IV ×2 (12:44→17:41)
--- NOTE | 2024-01-14 13:51 | PN.SURG_ITS ---
Subjective Subjective No new issues overnight Objective Data Objective Data Vital Signs: Vital Signs Temp Pulse Resp BP Pulse Ox O2 Del Method O2 Flow Rate 97.7 F L 66 15 100/40 L 98 Nasal Cannula 2 01/14/24 09:29 01/14/24 13:38 01/14/24 13:38 01/14/24 13:38 01/14/24 13:38 01/14/24 13:38 01/14/24 13:38 FiO2 30 01/14/24 03:16 Oxygen Flow Rate (L/min) 2 Oxygen Delivery Method Nasal Cannula Weight: 230 lb 6.129 oz Body Mass Index (BMI) 38.3 Intake & Output: Intake and Output for Last 24 Hours 01/12/24 01/13/24 01/14/24 23:59 23:59 23:59 Intake Total 1306 / 1306 973 / 973 Output Total 600 / 600 200 / 200 100 / 100 Balance 706 / 706 -200 / -200 873 / 873 Lab / Micro Data 01/14/24 05:32 01/14/24 05:32 Labs: Laboratory Results - last 24 hr 01/13/24 16:33: POC Glucose 101 01/13/24 21:12: POC Glucose 95 01/14/24 05:32: WBC 6.7, RBC 2.65 L, Hgb 7.0 L, Hct 24.9 L, MCV 94.0, MCH 26.4 L , MCHC 28.1 L, RDW Std Deviation 61.4 H, RDW Coeff of Vlad 18.3 H, Plt Count 88 L , MPV 11.2, Immature Gran % (Auto) 1.900 H, Neut % (Auto) 70.0, Lymph % (Auto) 17.4 L, Major % (Auto) 8.4, Eos % (Auto) 1.9, Baso % (Auto) 0.4, Absolute Neuts (auto) 4.7, Absolute Lymphs (auto) 1.16, Nucleated RBC % 0, PT 16.3 H, INR 1.3, APTT 61.7 H, Sodium 148 H, Potassium 3.8, Chloride 117 H, Carbon Dioxide 23.0, Anion Gap 8, BUN 66 H, Creatinine 4.62 H, Estim Creat Clear Calc 14.30, Est GFR (MDRD) Af Amer 12 L, Est GFR (MDRD) Non-Af 10 L, BUN/Creatinine Ratio 14.3, G lucose 114 H, Calcium 8.9 01/14/24 06:07: POC Glucose 101 01/14/24 12:05: POC Glucose 118 H Micro: Microbiology 01/07/24 08:40 Blood Culture (Wb) - Left Hand Bacteria Detection (PCR) - Final Vancomycin Resist. E. faecalis 01/07/24 08:40 Blood Culture (Wb) - Left Hand Blood Culture - Final Vancomycin Resist. E. faecalis 01/11/24 11:18 Blood Culture (Wb) - Anticubital Left Blood Culture - Preliminary 01/07/24 09:17 Urine Catheter - Catheter Urine Culture - Final Lactobacillus casei Yeast, not Yulia albicans 01/08/24 10:05 Blood Culture (Wb) - Other Blood Culture - Final Enterococcus faecalis 01/07/24 08:37 Blood Culture (Wb) - Anticubital Left Blood Culture - Final GPC Poss Enterococcus sp Radiography Diagnostic Testing: Radiology Impression Chest X-Ray 01/14/24 12:00 IMPRESSION: Left internal jugular catheter with tip projected over the lower SVC. Findings a mild interstitial edema/congestive failure for which follow-up chest imaging to resolution is recommended. Electronically Signed: Humphrey Velez MD at 12:13 EDT Reading Location ID and State: formerly [facility] / [place] , Service support , Rhythm Strip Rhythm Strip: Sinus Rhythm Rate: 60 Ectopy: None Physical Exam Const oriented x3 and no apparent distress Resp normal respiratory effort GI soft to palpation and non-tender Assessment & Plan Assessment/Plan (1) VRE bacteremia: PLAN: The latest that her cultures did result back as positive so nephrology is placing a temporary catheter and they will contact me when she needs placement of a tunneled catheter in the future. Okay for diet today. Brian Burton MD Pager: [facility] [address] [place] [address], [address] [place] [address] Office:
--- NOTE | 2024-01-14 14:42 | PCM.OP.PRO ---
Procedure Report Date of Procedure: 01/14/24 Left IJ dialysis catheter. Indication is for dialysis. Additionally, tunneled dialysis catheter was removed due to bacteremia. Risks and benefits were explained to the patient and patient was agreeable to proceeding with the procedure. Procedure: Using ultrasound guidance, procedure was first attempted on the right side in the IJ. The vessel was identified and actually cannulated but the guidewire was unable to be successfully advanced. Myself as well as Dr. Lechuga attempted this. Given the lack of success, the left side was proceed with. Both sides, the area was prepped and draped in a sterile fashion and using modified Seldinger technique, it was successful on the left side with the guidewire being advanced. Using the staged dilators, the dialysis catheter was advanced to the hub and sutured in place. Patient did have discomfort with the procedure but otherwise tolerated the procedure well. Estimated blood loss was around 5 cc Follow-up chest x-ray showed the left IJ dialysis catheter in place. No evidence of pneumothorax. Procedure was performed along with and under the guidance of Dr. Lechuga. Procedures Hospitalists Procedures: Other Procedure - See Report ([id number] Left IJ dialysis catheter. )
--- NOTE | 2024-01-14 15:05 | PCM.PN.REN ---
Subjective Subjective no new complaints Objective Data Objective Data Vital Signs: Vital Signs Temp Pulse Resp BP Pulse Ox O2 Del Method O2 Flow Rate 97.7 F L 63 13 95/39 L 100 Nasal Cannula 2 01/14/24 09:29 01/14/24 15:00 01/14/24 15:00 01/14/24 15:00 01/14/24 15:00 01/14/24 15:00 01/14/24 15:00 FiO2 30 01/14/24 03:16 Oxygen Flow Rate (L/min) 2 Oxygen Delivery Method Nasal Cannula Weight: 104.5 kg Body Mass Index (BMI) 38.3 Intake & Output: Intake and Output for Last 24 Hours 01/12/24 01/13/24 01/14/24 23:59 23:59 23:59 Intake Total 1306 / 1306 973 / 973 Output Total 600 / 600 200 / 200 100 / 100 Balance 706 / 706 -200 / -200 873 / 873 Lab / Micro Data 01/14/24 05:32 01/14/24 05:32 Labs: Laboratory Results - last 24 hr 01/13/24 16:33: POC Glucose 101 01/13/24 21:12: POC Glucose 95 01/14/24 05:32: WBC 6.7, RBC 2.65 L, Hgb 7.0 L, Hct 24.9 L, MCV 94.0, MCH 26.4 L, MCHC 28.1 L, RDW Std Deviation 61.4 H, RDW Coeff of Vlad 18.3 H, Plt Count 88 L, MPV 11.2, Immature Gran % (Auto) 1.900 H, Neut % (Auto) 70.0, Lymph % (Auto) 17.4 L, [place] % (Auto) 8.4, Eos % (Auto) 1.9, Baso % (Auto) 0.4, Absolute Neuts (auto) 4.7, Absolute Lymphs (auto) 1.16, Nucleated RBC % 0, PT 16.3 H, INR 1.3, APTT 61.7 H, Sodium 148 H, Potassium 3.8, Chloride 117 H, Carbon Dioxide 23.0, Anion Gap 8, BUN 66 H, Creatinine 4.62 H, Estim Creat Clear Calc 14.30, Est GFR (MDRD) Af Amer 12 L, Est GFR (MDRD) Non-Af 10 L, BUN/Creatinine Ratio 14.3, Glucose 114 H, Calcium 8.9 01/14/24 06:07: POC Glucose 101 01/14/24 12:05: POC Glucose 118 H Micro: Microbiology 01/07/24 08:40 Blood Culture (Wb) - Left Hand Bacteria Detection (PCR) - Final Vancomycin Resist. E. faecalis 01/07/24 08:40 Blood Culture (Wb) - Left Hand Blood Culture - Final Vancomycin Resist. E. faecalis 01/11/24 11:18 Blood Culture (Wb) - Anticubital Left Blood Culture - Preliminary 01/07/24 09:17 Urine Catheter - Catheter Urine Culture - Final Lactobacillus casei Yeast, not Yulia albicans 01/08/24 10:05 Blood Culture (Wb) - Other Blood Culture - Final Enterococcus faecalis 01/07/24 08:37 Blood Culture (Wb) - Anticubital Left Blood Culture - Final GPC Poss Enterococcus sp Radiography Diagnostic Testing: Radiology Impression Chest X-Ray 01/14/24 12:00 IMPRESSION: Left internal jugular catheter with tip projected over the lower SVC. Findings a mild interstitial edema/congestive failure for which follow-up chest imaging to resolution is recommended. Electronically Signed: Humphrey Velez MD at 12:13 EDT Reading Location ID and State: [id number] [facility] [place] , Service support , Rhythm Strip Rhythm Strip: Sinus Rhythm Rate: 60 Ectopy: None Physical Exam Narrative HEENT: Normocephalic, atraumatic. Mucous membrane dry without erythema. PERRLA. Neck: Supple, no JVD. Trachea is midline. No thyromegaly or lymphadenopathy. Cardiovascular: Normal S1, S2. No rubs, murmurs, or gallops. Respiratory: Lungs are coarse to auscultation anteriorly. Abdomen: Normal bowel sounds, soft, nontender, no guarding or rebound, no organomegaly. Extremities: No clubbing, cyanosis, or edema. 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 Patient presented [facility] hospital from SNF on [facility]24 with altered mental status and hypotension. She was diagnosed with septic shock secondary to VRE bacteremia and UTI. Nephrology is following for ESRD. ESRD. Patient normally dialyzes at [facility] on MWF schedule. Patient missed dialysis on 01/07/2024 because of presentation to the hospital. Patient was dialyzed on 01/08/2024. HD friday line removed Blood cultures are still positive no negative cultures yet dw surgery dw hospitalist left IJ dialysis line placed bedside HD today
--- NOTE | 2024-01-14 15:28 | CASEMGMT ---
WES sent operative report to Alethea at [facility]. WES also called Alethea and updated her that patient will likely be out all week. WES also let her know that patient got a temporary cath today and will get a tunneled when blood cultures clear. Varsha Villatoro MSW RUBY
[2024-01-14] MEDS: Heparin 10,000 UNITS/10 ML Vial IV (15:38)
[2024-01-14] MEDS: Epoetin Alfa epbx 10,000 UNIT/ML 20000 UNIT IV (15:43)
[2024-01-14] MEDS: DAPTOMYCIN IV (16:23)
[2024-01-14] MEDS: NORMAL SALINE 0.9% IV (16:23)
[2024-01-14 17:11] LABS: Bedside Glucose 96 mg/dL (74-106)
[2024-01-14] MEDS: Pramipexole Di-HCl 1 MG Tablet PO (21:06)
[2024-01-14] MEDS: Gabapentin 300 MG Capsule PO (21:06)
[2024-01-14] MEDS: Sucralfate 1 GM Tablet PO (21:06)
[2024-01-14] MEDS: Mirtazapine 15 MG Tablet PO (21:07)
[2024-01-14] MEDS: Pantoprazole Sodium 40 MG Tablet PO (21:07)
[2024-01-14 22:11] LABS: Bedside Glucose 96 mg/dL (74-106)
[2024-01-15 03:14] VITALS: BP 117/45; PULSE 84; RESP 18; TEMP 36.1; O2SAT 95
[2024-01-15 03:58] VITALS: BMI 38.2
[2024-01-15 05:20] LABS: Hemoglobin 7.2 g/dL (12.0-15.0); Mean Corp Hgb Conc 28.8 g/dL (32-36); Mean Corpuscular Hgb 26.7 pg (27.0-32.0); Mean Corpuscular Volume 92.6 fL (81-99); Mean Platelet Vol. 11.6 fl (6.2-12.0); POSITIVE COUNT YES; POSITIVE MORPHOLOGY YES; Platelet Count 97 K/mm3 (150-450); RBC Distribution Width CV 17.9 % (11.6-14.6); RBC Distribution Width SD 58.9 fl (35.1-43.9); White Blood Count 7.3 K/mm3 (4.4-11.0)
[2024-01-15 05:37] LABS: Differential Indicated MANUAL DIFF
[2024-01-15 05:48] LABS: Anion Gap 7 (5-15); BUN 44 mg/dL (7-18); BUN/Creat Ratio 13.8 RATIO (10-20); Calcium,Total 8.6 mg/dL (8.5-10.1); Chloride 109 mmol/L (98-107); Creatinine, Serum 3.19 mg/dL (0.55-1.02); EST Glomerular Filtration Rate 16 mL/min (>60); Est Glom Filt Rate - Afr Amer 19 mL/min (>60); Estimated Creatinine Clearance 20.66 ml/min; Glucose 108 mg/dL (74-106); Potassium 3.8 mmol/L (3.5-5.1); Sodium Level 140 mmol/L (136-145)
[2024-01-15] MEDS: Pramipexole Di-HCl 1 MG Tablet PO ×3 (06:00→21:17)
[2024-01-15 06:25] LABS: Bedside Glucose 107 mg/dL (74-106)
[2024-01-15 06:40] LABS: Lymphocyte 22 % (19-41); Monocyte 6 % (0-10); Neutrophil-Band 2 % (0-5); Neutrophil-Segmented 70 % (47-70); Total Cells Counted 100 (MANUAL DIFF)
[2024-01-15 06:41] LABS: Absolute Neutrophil Count 5.3 X10^3/uL (2.0-7.7)
[2024-01-15 06:42] LABS: Absolute Lymphocyte Count 1.61 X10^3/uL (0.83-4.51)
[2024-01-15 07:00] VITALS: O2SAT 94
[2024-01-15] MEDS: Sucralfate 1 GM Tablet PO ×2 (07:48→21:17)
[2024-01-15] MEDS: Nystatin Powder 15gm Bottle 1 APPLIC TOPICAL ×2 (07:49→21:17)
[2024-01-15] MEDS: prednisoLONE eye drops (5 mL) 1 DROP OPTH.BTL 1 DRP OPHTHALMIC ×4 (07:49→21:18)
[2024-01-15] MEDS: Pantoprazole Sodium 40 MG Tablet PO ×2 (07:50→21:17)
--- NOTE | 2024-01-15 08:08 | PCM.PN.HOSP ---
Reason for Visit Reason for Visit: Diagnoses Sepsis, unspecified organism (01/07/24) Enterococcus as the cause of diseases classified elsewhere (01/07/24) Thrombocytopenia, unspecified (01/07/24) Other toxic encephalopathy (01/07/24) Hypotension, unspecified (01/07/24) End stage renal disease (01/07/24) Urinary tract infection, site not specified (01/07/24) Severe sepsis with septic shock (01/07/24) Bacteremia (01/07/24) Resistance to vancomycin (01/07/24) Subjective Subjective Denies complaints Objective Data Objective Data Vital Signs: Vital Signs Temp Pulse Resp BP Pulse Ox O2 Del Method O2 Flow Rate 36.1 C L 84 18 117/45 L 94 Nasal Cannula 2 01/15/24 03:14 01/15/24 03:14 01/15/24 03:14 01/15/24 03:14 01/15/24 07:00 01/15/24 07:00 01/15/24 07:00 FiO2 30 01/14/24 03:16 Oxygen Flow Rate (L/min) 2 Oxygen Delivery Method Nasal Cannula Weight: 104 kg Body Mass Index (BMI) 38.2 Intake & Output: Intake and Output for Last 24 Hours 01/13/24 01/14/24 01/15/24 23:59 23:59 23:59 Intake Total 2038 / 203 Output Total 200 / 200 1100 / 1200 100 / 100 Balance -200 / -200 939 / 839 -100 / -100 Lab / Micro Data 01/15/24 04:53 01/15/24 04:53 Labs: Laboratory Results - last 24 hr 01/14/24 12:05: POC Glucose 118 H 01/14/24 16:49: POC Glucose 96 01/14/24 21:00: POC Glucose 96 01/15/24 04:53: WBC 7.3, RBC 2.70 L, Hgb 7.2 L, Hct 25.0 L, MCV 92.6, MCH 26.7 L, MCHC 28.8 L, RDW Std Deviation 58.9 H, RDW Coeff of Vlad 17.9 H, Plt Count 97 L, MPV 11.6, Neut % (Auto) Not Reportable, Absolute Neuts (auto) 5.3, Absolute Lymphs (auto) 1.61, Total Counted 100, Neutrophils % (Manual) 70, Band Neutrophils % 2, Lymphocytes % (Manual) 22, Monocytes % (Manual) 6, Sodium 140, Potassium 3.8, Chloride 109 H, Carbon Dioxide 24.0, Anion Gap 7, BUN 44 H, Creatinine 3.19 H, Estim Creat Clear Calc 20.66, Est GFR (MDRD) Af Amer 19 L, Est GFR (MDRD) Non-Af 16 L, BUN/Creatinine Ratio 13.8, Glucose 108 H, Calcium 8.6 01/15/24 05:59: POC Glucose 107 H Micro: Microbiology 01/07/24 08:40 Blood Culture (Wb) - Left Hand Bacteria Detection (PCR) - Final Vancomycin Resist. E. faecalis 01/07/24 08:40 Blood Culture (Wb) - Left Hand Blood Culture - Final Vancomycin Resist. E. faecalis 01/11/24 11:18 Blood Culture (Wb) - Anticubital Left Blood Culture - Preliminary 01/07/24 09:17 Urine Catheter - Catheter Urine Culture - Final Lactobacillus casei Yeast, not Yulia albicans 01/08/24 10:05 Blood Culture (Wb) - Other Blood Culture - Final Enterococcus faecalis 01/07/24 08:37 Blood Culture (Wb) - Anticubital Left Blood Culture - Final GPC Poss Enterococcus sp Radiography Diagnostic Testing: Radiology Impression Chest X-Ray 01/14/24 12:00 IMPRESSION: Left internal jugular catheter with tip projected over the lower SVC. Findings a mild interstitial edema/congestive failure for which follow-up chest imaging to resolution is recommended. Electronically Signed: Humphrey Velez MD at 12:13 EDT Reading Location ID and State: [facility] / [place] , Service support , Rhythm Strip Rhythm Strip: Sinus Rhythm Rate: 60 Ectopy: None Physical Exam Const alert and no apparent distress HEENT head/scalp atraumatic and moist oral mucous membranes Resp normal respiratory effort, no retractions, no use of accessory muscles and clear to auscultation bilaterally Cardio regular rate, regular rhythm, S1 normal heart sound and S2 normal heart sound GI normal to inspection, nondistended, normoactive bowel sounds, soft to palpation, non-tender and non-distended Extremity normal to inspection and full ROM Neuro Sensorium / Orientation: awake and alert Assessment & Plan Assessment/Plan (1) Hypotension: (2) UTI (urinary tract infection): (3) Thrombocytopenia: (4) Toxic metabolic encephalopathy: PLAN: Plan Septic shock secondary to VRE UTI and bacteremia Resolved Blood and urine cultures both positive for VRE from the , and . Cultures from the and are currently pending. Currently on daptomycin Echocardiogram shows an EF of 70% with the inability to assess diastolic dysfunction and no valvular abnormalities or abscesses noted Continue daptomycin and cefepime Repeat cultures from 01/08/2024 remain positive Tunneled dialysis catheter removed on a.m. of 01/10/2024 blood culture on the positive. From the still pending. Discussed with Dr. Weir, who recommends against placing a tunneled dialysis catheter at this time recommending a temporary line. Informed Dr. Burton who deferred temporary line placement to Dr. Weir, but will be available to tunnelled line when appropriate. Dr. Weir and I placed left IJ temporary dialysis catheter on 01/13 (see procedure note) End-stage renal disease Dialysis dependent-Dialysis catheter removed 01/10/2024. Left IJ temporary catheter placed 01/13 Nephrology following. 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--> patient is noncompliant at baseline with nocturnal BiPAP-Continue home oxygen as ordered-Typically on 4 L per previous documentation at baseline--> has been stable here on 2 to 3 L-As needed bronchodilator therapy Chronic anemia-Baseline appears to be between 7.5 and 9-Hemoglobin stable at this time at 7.0 today however patient was not dialyzed yesterday and I do expect after dialysis her hemoglobin showed an improve-No signs of acute blood loss DM-2-Had recent hemoglobin A1c in September and was 7.6-Patient is currently not on anything for her blood sugars as an outpatient-Has been on Levemir 8 units subcu--> fasting blood sugar this morning was 86 -Discontinue Levemir--> suspect acute elevation was related to infection-Continue sliding [id number] as ordered-Patient now on renal carb controlled diet History of dysphagia-Diet as ordered per speech therapy -speech therapy following-appreciate input-Currently on a mechanical soft thin liquid diet with being a total feed Hypothyroidism-Continue home Synthroid GERD/esophageal stenosis/history of erosive gastropathy-Continue p.o. Protonix-Hemoglobin is stable Pulmonary hypertension-Likely related to morbid obesity and obstructive sleep apnea-Most recent echo shows a right ventricular systolic pressure of 40 mmHg-Continue dialysis for volume status management History of HFpEF-Currently compensated Restless leg syndrome-Continue ropinirole-Restart home nightly gabapentin Diabetic neuropathy-Will hold gabapentin currently with somnolence Hyperlipidemia-Continue home fenofibrate-Continue home atorvastatin Obesity-BMI 39.2-Recommend weight loss-Complicates treatment, prognosis, outcomes Depression-Continue home mirtazapine DVT prophylaxis SCDs CODE STATUS-Full code Charges/Coding Visit Charges Inpatient E&M: 93939 Subs Hosp L2
--- NOTE | 2024-01-15 08:27 | PCM.PN.SRG ---
Subjective Subjective Patient is a 63 y/o F I am following for chronic renal failure with acute bacteremia from her dialysis catheter. Patient had temporary chest catheters placed in the left neck yesterday by Dr. Lechuga. She notes minimal amount of pressure at the catheter site. She dialyzed well without any issues. She denies any concerns or complaints at this time. Objective Data Objective Data Vital Signs: Vital Signs Temp Pulse Resp BP Pulse Ox O2 Del Method O2 Flow Rate 97.0 F L 84 18 117/45 L 94 Nasal Cannula 2 01/15/24 03:14 01/15/24 03:14 01/15/24 03:14 01/15/24 03:14 01/15/24 07:00 01/15/24 07:00 01/15/24 07:00 FiO2 30 01/14/24 03:16 Oxygen Flow Rate (L/min) 2 Oxygen Delivery Method Nasal Cannula Weight: 229 lb 4.492 oz Body Mass Index (BMI) 38.2 Intake & Output: Intake and Output for Last 24 Hours 01/13/24 01/14/24 01/15/24 23:59 23:59 23:59 Intake Total 2039 / 2039 Output Total 200 / 200 1100 / 1200 100 / 100 Balance -200 / -200 939 / 839 -100 / -100 Lab / Micro Data 01/15/24 04:53 01/15/24 04:53 Labs: Laboratory Results - last 24 hr 01/14/24 12:05: POC Glucose 118 H 01/14/24 16:49: POC Glucose 96 01/14/24 21:00: POC Glucose 96 01/15/24 04:53: WBC 7.3, RBC 2.70 L, Hgb 7.2 L, Hct 25.0 L, MCV 92.6, MCH 26.7 L, MCHC 28.8 L, RDW Std Deviation 58.9 H, RDW Coeff of Vlad 17.9 H, Plt Count 97 L, MPV 11.6, Neut % (Auto) Not Reportable, Absolute Neuts (auto) 5.3, Absolute Lymphs (auto) 1.61, Total Counted 100, Neutrophils % (Manual) 70, Band Neutrophils % 2, Lymphocytes % (Manual) 22, Monocytes % (Manual) 6, Sodium 140, Potassium 3.8, Chloride 109 H, Carbon Dioxide 24.0, Anion Gap 7, BUN 44 H, Creatinine 3.19 H, Estim Creat Clear Calc 20.66, Est GFR (MDRD) Af Amer 19 L, Est GFR (MDRD) Non-Af 16 L, BUN/Creatinine Ratio 13.8, Glucose 108 H, Calcium 8.6 01/15/24 05:59: POC Glucose 107 H Micro: Microbiology 01/07/24 08:40 Blood Culture (Wb) - Left Hand Bacteria Detection (PCR) - Final Vancomycin Resist. E. faecalis 01/07/24 08:40 Blood Culture (Wb) - Left Hand Blood Culture - Final Vancomycin Resist. E. faecalis 01/11/24 11:18 Blood Culture (Wb) - Anticubital Left Blood Culture - Preliminary 01/07/24 09:17 Urine Catheter - Catheter Urine Culture - Final Lactobacillus casei Yeast, not Yulia albicans 01/08/24 10:05 Blood Culture (Wb) - Other Blood Culture - Final Enterococcus faecalis 01/07/24 08:37 Blood Culture (Wb) - Anticubital Left Blood Culture - Final GPC Poss Enterococcus sp Radiography Diagnostic Testing: Radiology Impression Chest X-Ray 01/14/24 12:00 IMPRESSION: Left internal jugular catheter with tip projected over the lower SVC. Findings a mild interstitial edema/congestive failure for which follow-up chest imaging to resolution is recommended. Electronically Signed: Humphrey Velez MD at 12:13 EDT , Rhythm Strip Rhythm Strip: Sinus Rhythm Rate: 60 Ectopy: None Physical Exam Neck Neck Narrative: Left lateral neck- temporary catheter intact Assessment & Plan Assessment/Plan (1) VRE bacteremia: (2) History of renal dialysis: PLAN: Plan I am following this patient in conjunction with Dr. Ruiz in Dr. Forrest's absence. Continue with temporary dialysis catheter until blood cultures are negative We will plan to place a tunneled chest catheter once blood cultures are negative We will continue to monitor this patient Charges/Coding Visit Charges Inpatient E&M: 04662 [facility] L1
[2024-01-15 09:15] VITALS: BP 102/36; PULSE 82; RESP 18; TEMP 36.4; O2SAT 96
[2024-01-15 11:24] VITALS: O2SAT 99
[2024-01-15 12:01] LABS: Bedside Glucose 101 mg/dL (74-106)
--- NOTE | 2024-01-15 12:20 | CASEMGMT ---
Discharge Planning Satish has obtained auth. It is good through 01/16/24. Luoise King DC Planning Asst.
[2024-01-15] MEDS: Dextrose 5%-Water (1000mL Bag) 1,000 ML 60 ML IV (12:46)
[2024-01-15 15:00] VITALS: BP 91/36; PULSE 73; RESP 18; TEMP 36.6; O2SAT 94
[2024-01-15 17:00] LABS: Bedside Glucose 127 mg/dL (74-106)
[2024-01-15 21:02] VITALS: BP 94/46; PULSE 76; RESP 18; TEMP 36.4; O2SAT 99
[2024-01-15] MEDS: Mirtazapine 15 MG Tablet PO (21:17)
[2024-01-15] MEDS: Gabapentin 300 MG Capsule PO (21:17)
--- NOTE | 2024-01-15 22:08 | PCM.PN.REN ---
Subjective Subjective no new events Objective Data Objective Data Vital Signs: Vital Signs Temp Pulse Resp BP Pulse Ox O2 Del Method O2 Flow Rate 97.6 F L 76 18 94/46 L 99 Nasal Cannula 2 01/15/24 21:02 01/15/24 21:02 01/15/24 21:02 01/15/24 21:02 01/15/24 21:02 01/15/24 21:02 01/15/24 21:02 FiO2 30 01/14/24 03:16 Oxygen Flow Rate (L/min) 2 Oxygen Delivery Method Nasal Cannula Weight: 104 kg Body Mass Index (BMI) 38.2 Intake & Output: Intake and Output for Last 24 Hours 01/13/24 01/14/24 01/15/24 23:59 23:59 23:59 Intake Total 2039 / 2039 1240 / 1240 Output Total 200 / 200 1100 / 1200 300 / 300 Balance -200 / -200 939 / 839 940 / 940 Lab / Micro Data 01/15/24 04:53 01/15/24 04:53 Labs: Laboratory Results - last 24 hr 01/14/24 21:00: POC Glucose 96 01/15/24 04:53: WBC 7.3, RBC 2.70 L, Hgb 7.2 L, Hct 25.0 L, MCV 92.6, MCH 26.7 L, MCHC 28.8 L, RDW Std Deviation 58.9 H, RDW Coeff of Vlad 17.9 H, Plt Count 97 L, MPV 11.6, Neut % (Auto) Not Reportable, Absolute Neuts (auto) 5.3, Absolute Lymphs (auto) 1.61, Total Counted 100, Neutrophils % (Manual) 70, Band Neutrophils % 2, Lymphocytes % (Manual) 22, Monocytes % (Manual) 6, Sodium 140, Potassium 3.8, Chloride 109 H, Carbon Dioxide 24.0, Anion Gap 7, BUN 44 H, Creatinine 3.19 H, Estim Creat Clear Calc 20.66, Est GFR (MDRD) Af Amer 19 L, Est GFR (MDRD) Non-Af 16 L, BUN/Creatinine Ratio 13.8, Glucose 108 H, Calcium 8.6 01/15/24 05:59: POC Glucose 107 H 01/15/24 11:41: POC Glucose 101 01/15/24 16:42: POC Glucose 127 H Micro: Microbiology 01/11/24 11:18 Blood Culture (Wb) - Anticubital Left Bacteria Detection (PCR) - Final Vancomycin Resist. E. faecalis Lorenzo/vanB Resistance Marker 01/11/24 11:18 Blood Culture (Wb) - Anticubital Left Blood Culture - Preliminary GPC Poss Enterococcus sp 01/07/24 08:40 Blood Culture (Wb) - Left Hand Bacteria Detection (PCR) - Final Vancomycin Resist. E. faecalis 01/07/24 08:40 Blood Culture (Wb) - Left Hand Blood Culture - Final Vancomycin Resist. E. faecalis 01/07/24 09:17 Urine Catheter - Catheter Urine Culture - Final Lactobacillus casei Yeast, not Yulia albicans 01/08/24 10:05 Blood Culture (Wb) - Other Blood Culture - Final Enterococcus faecalis 01/07/24 08:37 Blood Culture (Wb) - Anticubital Left Blood Culture - Final GPC Poss Enterococcus sp Rhythm Strip Rhythm Strip: Sinus Rhythm Rate: 60 Ectopy: None Physical Exam Narrative HEENT: Normocephalic, atraumatic. Mucous membrane dry without erythema. PERRLA. Neck: Supple, no JVD. Trachea is midline. No thyromegaly or lymphadenopathy. Cardiovascular: Normal S1, S2. No rubs, murmurs, or gallops. Respiratory: Lungs are coarse to auscultation anteriorly. Abdomen: Normal bowel sounds, soft, nontender, no guarding or rebound, no organomegaly. Extremities: No clubbing, cyanosis, or edema. 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 Patient presented to hospital from [facility] on 01/07/2024 with altered mental status and hypotension. She was diagnosed with septic shock secondary to VRE bacteremia and UTI. Nephrology is following for ESRD. ESRD. Patient normally dialyzes at [facility] [place] on MWF schedule. HD 01/13 blood cultures are still positive waiting for negative cultures before tunneled line placement please note RIJ site was attempted initially. wire confirmed to be in lumen, could not advance catheter. possible she has RIJ thrombosis
[2024-01-16] VITALS (14 sets, daily range): BP systolic 80–188; BP diastolic 40–58; PULSE 63–78; RESP 13–18; TEMP 35.6–36.4; O2SAT 2–100; BMI 39.2; BMI 38.7
[2024-01-16 00:37] LABS: Bedside Glucose 115 mg/dL (74-106)
[2024-01-16] MEDS: Dextrose 5%-Water (1000mL Bag) 1,000 ML 60 ML IV ×2 (05:20→22:04)
[2024-01-16 05:55] LABS: Hematocrit 24.6 % (37-47); Hemoglobin 7.1 g/dL (12.0-15.0); Mean Corp Hgb Conc 28.9 g/dL (32-36); Mean Corpuscular Hgb 26.5 pg (27.0-32.0); Mean Corpuscular Volume 91.8 fL (81-99); POSITIVE COUNT YES; POSITIVE MORPHOLOGY YES; Platelet Count 131 K/mm3 (150-450); RBC Distribution Width CV 17.9 % (11.6-14.6); RBC Distribution Width SD 58.6 fl (35.1-43.9); Red Blood Count 2.68 M/mm3 (4.2-5.4); White Blood Count 8.3 K/mm3 (4.4-11.0)
[2024-01-16 06:07] LABS: Differential Indicated MANUAL DIFF
[2024-01-16] MEDS: Pramipexole Di-HCl 1 MG Tablet PO ×2 (06:10→21:32)
[2024-01-16 06:24] LABS: Anion Gap 9 (5-15); BUN 50 mg/dL (7-18); BUN/Creat Ratio 12.6 RATIO (10-20); Calcium,Total 8.5 mg/dL (8.5-10.1); Chloride 106 mmol/L (98-107); Creatinine, Serum 3.98 mg/dL (0.55-1.02); EST Glomerular Filtration Rate 12 mL/min (>60); Est Glom Filt Rate - Afr Amer 15 mL/min (>60); Estimated Creatinine Clearance 16.81 ml/min; Glucose 112 mg/dL (74-106); Potassium 3.9 mmol/L (3.5-5.1); Sodium Level 138 mmol/L (136-145)
[2024-01-16 06:34] LABS: CPK Total, Creatine Kinase 37 U/L (26-192)
[2024-01-16 07:14] LABS: Bedside Glucose 119 mg/dL (74-106)
--- NOTE | 2024-01-16 08:07 | PN.HOSP_ITS ---
Reason for Visit Reason for Visit: Diagnoses Sepsis, unspecified organism (01/07/24) Enterococcus as the cause of diseases classified elsewhere (01/07/24) Thrombocytopenia, unspecified (01/07/24) Other toxic encephalopathy (01/07/24) Hypotension, unspecified (01/07/24) End stage renal disease (01/07/24) Urinary tract infection, site not specified (01/07/24) Severe sepsis with septic shock (01/07/24) Bacteremia (01/07/24) Resistance to vancomycin (01/07/24) Personal history of other medical treatment (01/07/24) Subjective Subjective Feels well. Objective Data Objective Data Vital Signs: Vital Signs Temp Pulse Resp BP Pulse Ox O2 Del Method O2 Flow Rate 36.4 C L 78 18 103/43 L 99 Nasal Cannula 2 01/16/24 03:42 01/16/24 03:42 01/16/24 03:42 01/16/24 03:42 01/16/24 03:42 01/16/24 03:45 01/16/24 03:45 FiO2 30 01/14/24 03:16 Oxygen Flow Rate (L/min) 2 Oxygen Delivery Method Nasal Cannula Weight: 106.8 kg Body Mass Index (BMI) 39.2 Intake & Output: Intake and Output for Last 24 Hours 01/14/24 01/15/24 01/16/24 23:59 23:59 23:59 Intake Total 2039 / 2039 1240 / 1240 994 / 994 Output Total 1100 / 1200 350 / 350 200 / 200 Balance 939 / 839 890 / 890 794 / 794 Lab / Micro Data 01/16/24 05:35 01/16/24 05:35 Labs: Laboratory Results - last 24 hr 01/15/24 11:41: POC Glucose 101 01/15/24 16:42: POC Glucose 127 H 01/15/24 21:11: POC Glucose 115 H 01/16/24 05:35: WBC 8.3, RBC 2.68 L, Hgb 7.1 L, Hct 24.6 L, MCV 91.8, MCH 26.5 L , MCHC 28.9 L, RDW Std Deviation 58.6 H, RDW Coeff of Vlad 17.9 H, Plt Count 131 L, MPV 11.0, Neut % (Auto) Not Reportable, Sodium 138, Potassium 3.9, Chloride 106, Carbon Dioxide 23.0, Anion Gap 9, BUN 50 H, Creatinine 3.98 H, Estim Creat Clear Calc 16.81, Est GFR (MDRD) Af Amer 15 L, Est GFR (MDRD) Non-Af 12 L, BUN/Creatinine Ratio 12.6, Glucose 112 H, Calcium 8.5, Total Creatine Kinase 37 01/16/24 06:09: POC Glucose 119 H Micro: Microbiology 01/11/24 11:18 Blood Culture (Wb) - Anticubital Left Bacteria Detection (PCR) - Final Vancomycin Resist. E. faecalis Lorenzo/vanB Resistance Marker 01/11/24 11:18 Blood Culture (Wb) - Anticubital Left Blood Culture - Preliminary GPC Poss Enterococcus sp 01/07/24 08:40 Blood Culture (Wb) - Left Hand Bacteria Detection (PCR) - Final Vancomycin Resist. E. faecalis 01/07/24 08:40 Blood Culture (Wb) - Left Hand Blood Culture - Final Vancomycin Resist. E. faecalis 01/07/24 09:17 Urine Catheter - Catheter Urine Culture - Final Lactobacillus casei Yeast, not Yulia albicans 01/08/24 10:05 Blood Culture (Wb) - Other Blood Culture - Final Enterococcus faecalis 01/07/24 08:37 Blood Culture (Wb) - Anticubital Left Blood Culture - Final GPC Poss Enterococcus sp Rhythm Strip Rhythm Strip: Sinus Rhythm Rate: 60 Ectopy: None Physical Exam Const alert and no apparent distress HEENT head/scalp atraumatic and moist oral mucous membranes Resp normal respiratory effort, no retractions, no use of accessory muscles and clear to auscultation bilaterally Cardio regular rate, regular rhythm, S1 normal heart sound and S2 normal heart sound GI normal to inspection, nondistended, normoactive bowel sounds, soft to palpation, non-tender and non-distended Neuro Sensorium / Orientation: awake and alert Assessment & Plan Assessment/Plan (1) Hypotension: (2) UTI (urinary tract infection): (3) Thrombocytopenia: (4) Toxic metabolic encephalopathy: PLAN: Plan Septic shock secondary to VRE UTI and bacteremia * Resolved * Blood and urine cultures both positive for VRE from the , and . Cultures from the and are currently pending. * Currently on daptomycin * Echocardiogram shows an EF of 70% with the inability to assess diastolic dysfunction and no valvular abnormalities or abscesses noted * Continue daptomycin and cefepime * Repeat cultures from 01/08/2024 remain positive * Tunneled dialysis catheter removed on a.m. of 01/10/2024 blood culture on the positive. From the still pending. Discussed with Dr. Weir, who recommends against placing a tunneled dialysis catheter at this time recommending a temporary line. Informed Dr. Burton who deferred temporary line placement to Dr. Weir, but will be available to tunnelled line when appropriate. * Dr. Weir and I placed left IJ temporary dialysis catheter on 01/13 (see procedure note) * 01/15: discussed with microbiology, BCx on 01/11 and 01/[address] Dickerson, bal[place] for tunnelled dialysis catheter. Texted Dr. Burton to notify ok to perform dialysis catheter. End-stage renal disease * Dialysis dependent-Dialysis catheter removed 01/10/2024. Left IJ temporary catheter placed 01/13 * Nephrology following. 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--> patient is noncompliant at baseline with nocturnal BiPAP-Continue home oxygen as ordered- Typically on 4 L per previous documentation at baseline--> has been stable here on 2 to 3 L-As needed bronchodilator therapy * Chronic anemia-Baseline appears to be between 7.5 and 9-Hemoglobin stable at this time at 7.0 today however patient was not dialyzed yesterday and I do expect after dialysis her hemoglobin showed an improve-No signs of acute blood loss * DM-2-Had recent hemoglobin A1c in September and was 7.6-Patient is currently not on anything for her blood sugars as an outpatient-Has been on Levemir 8 units subcu--> fasting blood sugar this morning was 86 -Discontinue Levemir--> suspect acute elevation was related to infection- Continue sliding swpev-Wrcy-Oogcb as ordered-Patient now on renal carb controlled diet * History of dysphagia-Diet as ordered per speech therapy -speech therapy following-appreciate input-Currently on a mechanical soft thin liquid diet with being a total feed * Hypothyroidism-Continue home Synthroid * GERD/esophageal stenosis/history of erosive gastropathy-Continue p.o. Protonix-Hemoglobin is stable * Pulmonary hypertension-Likely related to morbid obesity and obstructive sleep apnea-Most recent echo shows a right ventricular systolic pressure of 40 mmHg- Continue dialysis for volume status management * History of HFpEF-Currently compensated * Restless leg syndrome-Continue ropinirole-Restart home nightly gabapentin * Diabetic neuropathy-Will hold gabapentin currently with somnolence * Hyperlipidemia-Continue home fenofibrate-Continue home atorvastatin * Obesity-BMI 39.2-Recommend weight loss-Complicates treatment, prognosis, outcomes * Depression-Continue home mirtazapine DVT prophylaxis SCDs CODE STATUS-Full code Charges/Coding Visit Charges Inpatient E&M: 10117 Subs Hosp L2
[2024-01-16] MEDS: PureFlow B 4K Dialysis Soln 1 BAG BAG 6 BAG PF (08:10)
[2024-01-16] MEDS: 0.9% Normal Saline 1,000 ML IV.SOLN. 1000 ML OPERA.SITE (08:10)
[2024-01-16] MEDS: 0.9% Saline Lock 10 ML Syringe IV (08:11)
[2024-01-16 08:50] LABS: Basophil 2 % (0-1); Eosinophil 2 % (0-5); Lymphocyte 22 % (19-41); Metamyelocyte 2 % (0-1); Monocyte 2 % (0-10); Neutrophil-Band 3 % (0-5); Neutrophil-Segmented 67 % (47-70); Total Cells Counted 100 (MANUAL DIFF)
[2024-01-16 08:51] LABS: Polychromasia 1+
[2024-01-16 08:52] LABS: Basophilic Stippling 2+; Stomatocyte 1+
[2024-01-16 08:53] LABS: Anisocytosis 2+; Macrocytosis 1+; Microcytosis 1+; Tear Drop Cell 1+
[2024-01-16 08:55] LABS: Absolute Neutrophil Count 5.8 X10^3/uL (2.0-7.7)
[2024-01-16 08:56] LABS: Absolute Lymphocyte Count 1.82 X10^3/uL (0.83-4.51)
[2024-01-16] MEDS: Heparin 10,000 UNITS/10 ML Vial IV (10:41)
[2024-01-16] MEDS: Pantoprazole Sodium 40 MG Tablet PO ×2 (11:07→21:32)
[2024-01-16] MEDS: DAPTOMYCIN IV (11:07)
[2024-01-16] MEDS: NORMAL SALINE 0.9% IV (11:07)
[2024-01-16] MEDS: Nystatin Powder 15gm Bottle 1 APPLIC TOPICAL ×2 (11:07→21:33)
[2024-01-16] MEDS: prednisoLONE eye drops (5 mL) 1 DROP OPTH.BTL 1 DRP OPHTHALMIC ×4 (11:07→21:33)
[2024-01-16 11:22] LABS: Bedside Glucose 88 mg/dL (74-106)
[2024-01-16 11:24] LABS: Pathologist Review Reviewed
--- NOTE | 2024-01-16 11:43 | PN.RENAL_ITS ---
Subjective Subjective Seen on dialysis today. Looks comfortable. Objective Data Objective Data Vital Signs: Vital Signs Temp Pulse Resp BP Pulse Ox O2 Del Method O2 Flow Rate 97.5 F L 68 13 90/58 L 100 Nasal Cannula 100 01/16/24 03:42 01/16/24 10:58 01/16/24 10:58 01/16/24 10:58 01/16/24 10:58 01/16/24 11:21 01/16/24 10:58 FiO2 30 01/14/24 03:16 Oxygen Flow Rate (L/min) 100 Oxygen Delivery Method Nasal Cannula Weight: 105.5 kg Body Mass Index (BMI) 38.7 Intake & Output: Intake and Output for Last 24 Hours 01/14/24 01/15/24 01/16/24 23:59 23:59 23:59 Intake Total 2039 / 2039 1240 / 1240 994 / 994 Output Total 1100 / 1200 350 / 350 1200 / 1200 Balance 939 / 839 890 / 890 -206 / -206 Lab / Micro Data 01/16/24 05:35 01/16/24 05:35 Labs: Laboratory Results - last 24 hr 01/15/24 11:41: POC Glucose 101 01/15/24 16:42: POC Glucose 127 H 01/15/24 21:11: POC Glucose 115 H 01/16/24 05:35: WBC 8.3, RBC 2.68 L, Hgb 7.1 L, Hct 24.6 L, MCV 91.8, MCH 26.5 L , MCHC 28.9 L, RDW Std Deviation 58.6 H, RDW Coeff of Vlad 17.9 H, Plt Count 131 L, MPV 11.0, Neut % (Auto) Not Reportable, Absolute Neuts (auto) 5.8, Absolute Lymphs (auto) 1.82, Total Counted 100, Neutrophils % (Manual) 67, Band Neutrophils % 3, Lymphocytes % (Manual) 22, Monocytes % (Manual) 2, Eosinophils % (Manual) 2, Basophils % (Manual) 2 H, Metamyelocytes % 2 H, Diff Path Review Reviewed, Polychromasia 1+, Basophilic Stippling 2+, Anisocytosis 2+, Microcytosis 1+, Macrocytosis 1+, Tear Drop Cells 1+, Stomatocytes 1+, Sodium 138, Potassium 3.9, Chloride 106, Carbon Dioxide 23.0, Anion Gap 9, BUN 50 H, C reatinine 3.98 H, Estim Creat Clear Calc 16.81, Est GFR (MDRD) Af Amer 15 L, Est GFR (MDRD) Non-Af 12 L, BUN/Creatinine Ratio 12.6, Glucose 112 H, Calcium 8.5, Total Creatine Kinase 37 01/16/24 06:09: POC Glucose 119 H 01/16/24 11:05: POC Glucose 88 Micro: Microbiology 01/11/24 11:18 Blood Culture (Wb) - Anticubital Left Bacteria Detection (PCR) - Final Vancomycin Resist. E. faecalis Lorenzo/vanB Resistance Marker 01/11/24 11:18 Blood Culture (Wb) - Anticubital Left Blood Culture - Preliminary Vancomycin Resist. E. faecalis 01/08/24 10:05 Blood Culture (Wb) - Other Blood Culture - Final Enterococcus faecalis 01/07/24 08:40 Blood Culture (Wb) - Left Hand Bacteria Detection (PCR) - Final Vancomycin Resist. E. faecalis 01/07/24 08:40 Blood Culture (Wb) - Left Hand Blood Culture - Final Vancomycin Resist. E. faecalis 01/07/24 09:17 Urine Catheter - Catheter Urine Culture - Final Lactobacillus casei Yeast, not Yulia albicans 01/07/24 08:37 Blood Culture (Wb) - Anticubital Left Blood Culture - Final GPC Poss Enterococcus sp Rhythm Strip Rhythm Strip: Sinus Rhythm Rate: 60 Ectopy: None Physical Exam Narrative HEENT: Normocephalic, atraumatic. Mucous membrane dry without erythema. PERRLA. Neck: Supple, no JVD. Trachea is midline. No thyromegaly or lymphadenopathy. Cardiovascular: Normal S1, S2. No rubs, murmurs, or gallops. Respiratory: Lungs are coarse to auscultation anteriorly. Abdomen: Normal bowel sounds, soft, nontender, no guarding or rebound, no organomegaly. Extremities: No clubbing, cyanosis, or edema. 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 Patient [facility] with altered mental status and hypotension. She was diagnosed with septic shock secondary to VRE bacteremia and UTI. Nephrology is following for ESRD. ESRD. Patient normally dialyzes at [facility] [place] on MWF schedule. Dialysis today, see orders. Tolerating well so far Enterococcus bacteremia. Last set of cultures are from 01/10 which were positive. Cultures from 01/11 are still pending. Discussed with hospitalist. They will reach out to lab since this is day 4. When okay with ID service, tunneled dialysis catheter to be placed by surgery. Discussed with hospitalist about plan please note RIJ site was attempted initially. wire confirmed to be in lumen, could not advance catheter. possible she has RIJ thrombosis from previous catheter
--- NOTE | 2024-01-16 13:18 | PCM.PN.BLA ---
Progress Note I was informed that the cultures are negative, will add her on for left IJ catheter tomorrow in OR. There was difficulty placing a Right IJ by nephrology so there may be central stenosis
--- NOTE | 2024-01-16 14:17 | CASEMGMT ---
WES received an updated prescription for IV antibiotic for patient. WES faxed this to [facility]. WES also sent a copy to [facility]. Patient's pre-cert is good up to 11:59 on 01-17-24. However, if patient is not discharged by that time a new pre-cert will need obtained. 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
--- NOTE | 2024-01-16 15:12 | PCM.PN.ID ---
Physical Exam Narrative Not feeling well, just tired. No body aches, no fever. No cough or SOB. Const alert and no apparent distress General Appearance: cooperative Resp normal air movement and clear to auscultation bilaterally Cardio regular rate and regular rhythm GI soft to palpation, non-tender and non-distended Extremity General Extremity: edema Skin no rashes or lesions noted ID ID: Route of nutrition/ use of supplements: [] Nutritional Intake: [] IV Site: [] [place]ons Catheter: [] Assessment & Plan Assessment/Plan (1) Septic shock: PLAN: Septic shock due to VRE bacteremia with HD line in place - echo showed no veg. Prior admit to [facility] 09/2023 with MRSA bacteremia requiring HD line removal. Line removed 01/09. Cont dapto. Repeat bcx neg so far. Out of icu, off pressor. Bcx 01/10 turned (+). Ok for line placement tomorrow as long as bcx from 01/11 remain neg. Will update rx for iv dapto dosed with HD at discharge. Will follow (2) VRE bacteremia: (3) ESRF (end stage renal failure):
[2024-01-16 16:21] LABS: Bedside Glucose 97 mg/dL (74-106)
[2024-01-16] MEDS: Mirtazapine 15 MG Tablet PO (21:32)
[2024-01-16] MEDS: Sucralfate 1 GM Tablet PO (21:32)
[2024-01-16] MEDS: Gabapentin 300 MG Capsule PO (21:33)
[2024-01-16 23:24] LABS: Bedside Glucose 100 mg/dL (74-106)
[2024-01-17] VITALS (14 sets, daily range): BP systolic 83–102; BP diastolic 36–60; PULSE 71–79; RESP 14–22; TEMP 2.7–37; O2SAT 92–99; BMI 38.7
[2024-01-17 05:43] LABS: Absolute Lymphocyte Count 1.08 X10^3/uL (0.83-4.51); Absolute Neutrophil Count 4.6 X10^3/uL (2.0-7.7); Basophil# 0.01 X10^3/uL; Basophil% 0.1 % (0-1); Eosinophil# 0.07 X10^3/uL; Hematocrit 24.7 % (37-47); Hemoglobin 7.2 g/dL (12.0-15.0); Lymphocyte # 1.08 X10^3/ul (0.83-4.51); Lymphocyte % 16.1 % (19-41); Mean Corp Hgb Conc 29.1 g/dL (32-36); Mean Corpuscular Hgb 26.7 pg (27.0-32.0); Mean Corpuscular Volume 91.5 fL (81-99); Mean Platelet Vol. 11.1 fl (6.2-12.0); Monocyte# 0.68 X10^3/uL; Monocyte% 10.1 % (0-10); NRBC Flagged by Analyzer 0 % (0-5); Neutrophil # 4.56 X10^3/uL (2.7-7.7); Neutrophil % 68.2 % (47-70); Platelet Count 123 K/mm3 (150-450); RBC Distribution Width CV 17.8 % (11.6-14.6); RBC Distribution Width SD 57.8 fl (35.1-43.9); White Blood Count 6.7 K/mm3 (4.4-11.0)
[2024-01-17 05:54] LABS: International Normalized Ratio 1.2; Prothrombin Time (Protime)PT. 14.9 SECONDS (11.7-14.9)
[2024-01-17 05:55] LABS: Partial Thromboplast Time 57.3 Seconds (24.1-36.2)
[2024-01-17 05:59] LABS: Anion Gap 8 (5-15); BUN 34 mg/dL (7-18); BUN/Creat Ratio 11.1 RATIO (10-20); Calcium,Total 8.5 mg/dL (8.5-10.1); Chloride 104 mmol/L (98-107); Creatinine, Serum 3.06 mg/dL (0.55-1.02); EST Glomerular Filtration Rate 16 mL/min (>60); Est Glom Filt Rate - Afr Amer 20 mL/min (>60); Estimated Creatinine Clearance 21.72 ml/min; Glucose 92 mg/dL (74-106); Potassium 3.8 mmol/L (3.5-5.1); Sodium Level 136 mmol/L (136-145)
[2024-01-17] MEDS: Pramipexole Di-HCl 1 MG Tablet PO ×2 (06:52→14:34)
[2024-01-17 07:22] LABS: Bedside Glucose 90 mg/dL (74-106)
[2024-01-17] MEDS: Nystatin Powder 15gm Bottle 1 APPLIC TOPICAL (08:00)
--- NOTE | 2024-01-17 08:32 | PN.HOSP_ITS ---
Reason for Visit Reason for Visit: Diagnoses Sepsis, unspecified organism (01/07/24) Enterococcus as the cause of diseases classified elsewhere (01/07/24) Thrombocytopenia, unspecified (01/07/24) Other toxic encephalopathy (01/07/24) Hypotension, unspecified (01/07/24) End stage renal disease (01/07/24) Urinary tract infection, site not specified (01/07/24) Severe sepsis with septic shock (01/07/24) Bacteremia (01/07/24) Resistance to vancomycin (01/07/24) Personal history of other medical treatment (01/07/24) Subjective Subjective status post tunneled dialysis catheter placement. Feeling fine. Objective Data Objective Data Vital Signs: Vital Signs Temp Pulse Resp BP Pulse Ox O2 Del Method O2 Flow Rate 36.4 C L 77 22 H 101/42 L 95 Nasal Cannula 2 01/17/24 07:40 01/17/24 07:40 01/17/24 07:40 01/17/24 07:40 01/17/24 07:52 01/17/24 08:01 01/17/24 08:01 FiO2 30 01/14/24 03:16 Oxygen Flow Rate (L/min) 2 Oxygen Delivery Method Nasal Cannula Weight: 105.6 kg Body Mass Index (BMI) 38.7 Intake & Output: Intake and Output for Last 24 Hours 01/15/24 01/16/24 01/17/24 23:59 23:59 23:59 Intake Total 1240 / 1240 2060 / 2060 Output Total 350 / 350 1250 / 1250 50 / 50 Balance 890 / 890 810 / 810 -50 / -50 Lab / Micro Data 01/17/24 05:25 01/17/24 05:28 Labs: Laboratory Results - last 24 hr 01/16/24 05:35: Absolute Neuts (auto) 5.8, Absolute Lymphs (auto) 1.82, Total Counted 100, Neutrophils % (Manual) 67, Band Neutrophils % 3, Lymphocytes % (Manual) 22, Monocytes % (Manual) 2, Eosinophils % (Manual) 2, Basophils % (Manual) 2 H, Metamyelocytes % 2 H, Diff Path Review Reviewed, Polychromasia 1+, Basophilic Stippling 2+, Anisocytosis 2+, Microcytosis 1+, Macrocytosis 1+, Tear Drop Cells 1+, Stomatocytes 1+ 01/16/24 11:05: POC Glucose 88 01/16/24 16:04: POC Glucose 97 01/16/24 21:28: POC Glucose 100 01/17/24 05:25: WBC 6.7, RBC 2.70 L, Hgb 7.2 L, Hct 24.7 L, MCV 91.5, MCH 26.7 L , MCHC 29.1 L, RDW Std Deviation 57.8 H, RDW Coeff of Vlad 17.8 H, Plt Count 123 L, MPV 11.1, Immature Gran % (Auto) 4.500 H, Neut % (Auto) 68.2, Lymph % (Auto) 16.1 L, [place] % (Auto) 10.1 H, Eos % (Auto) 1.0, Baso % (Auto) 0.1, Absolute Neuts (auto) 4.6, Absolute Lymphs (auto) 1.08, Nucleated RBC % 0, PT 14.9, INR 1.2, APTT 57.3 H 01/17/24 05:28: Sodium 136, Potassium 3.8, Chloride 104, Carbon Dioxide 24.0, Anion Gap 8, BUN 34 H, Creatinine 3.06 H, Estim Creat Clear Calc 21.72, Est GFR (MDRD) Af Amer 20 L, Est GFR (MDRD) Non-Af 16 L, BUN/Creatinine Ratio 11.1, Glucose 92, Calcium 8.5 01/17/24 06:41: POC Glucose 90 Micro: Microbiology 01/12/24 05:10 Blood Culture (Wb) - Anticubital Left Blood Culture - Final No growth in 5 days. 01/11/24 11:18 Blood Culture (Wb) - Anticubital Left Bacteria Detection (PCR) - Final Vancomycin Resist. E. faecalis Lorenzo/vanB Resistance Marker 01/11/24 11:18 Blood Culture (Wb) - Anticubital Left Blood Culture - Final Vancomycin Resist. E. faecalis 01/14/24 09:44 Blood Culture (Wb) - Left Hand Blood Culture - Preliminary No growth in 48 hours. 01/14/24 09:38 Blood Culture (Wb) - Anticubital Right Blood Culture - Preliminary No growth in 48 hours. 01/08/24 10:05 Blood Culture (Wb) - Other Blood Culture - Final Enterococcus faecalis 01/07/24 08:40 Blood Culture (Wb) - Left Hand Bacteria Detection (PCR) - Final Vancomycin Resist. E. faecalis 01/07/24 08:40 Blood Culture (Wb) - Left Hand Blood Culture - Final Vancomycin Resist. E. faecalis 01/07/24 09:17 Urine Catheter - Catheter Urine Culture - Final Lactobacillus casei Yeast, not Yulia albicans 01/07/24 08:37 Blood Culture (Wb) - Anticubital Left Blood Culture - Final GPC Poss Enterococcus sp Rhythm Strip Rhythm Strip: Sinus Rhythm Rate: 60 Ectopy: None Physical Exam Const alert and no apparent distress Constitutional Narrative: On BiPAP. No respiratory distress. Afebrile. Left-sided tunneled dialysis catheter in place without hematoma. Resp normal respiratory effort, no retractions, no use of accessory muscles and clear to auscultation bilaterally Assessment & Plan Assessment/Plan (1) Hypotension: (2) UTI (urinary tract infection): (3) Thrombocytopenia: (4) Toxic metabolic encephalopathy: PLAN: Plan Septic shock secondary to VRE UTI and bacteremia * Resolved * Blood and urine cultures both positive for VRE from the , and . Cultures from the and are currently pending. * Currently on daptomycin * Echocardiogram shows an EF of 70% with the inability to assess diastolic dysfunction and no valvular abnormalities or abscesses noted * Continue daptomycin and cefepime * Repeat cultures from 01/08/2024 remain positive * Tunneled dialysis catheter removed on a.m. of 01/10/2024 blood culture on the positive. From the still pending. Discussed with Dr. Weir, who recommends against placing a tunneled dialysis catheter at this time recommending a temporary line. Informed Dr. Burton who deferred temporary line placement to Dr. Weir, but will be available to tunnelled line when appropriate. * Dr. Weir and I placed left IJ temporary dialysis catheter on 01/13 (see procedure note) * 01/15: discussed with microbiology, BCx on 01/11 and 01/[address] Dickerson, [place] for tunnelled dialysis catheter. * Dr. Burton to perform tunnelled HD catheter 01/16 * Pt to continue IV daptomycin upon discharge with stop date of 01/25 End-stage renal disease * Dialysis dependent-Dialysis catheter removed 01/10/2024. Left IJ temporary catheter placed 01/13 * Nephrology following. 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--> patient is noncompliant at baseline with nocturnal BiPAP-Continue home oxygen as ordered- Typically on 4 L per previous documentation at baseline--> has been stable here on 2 to 3 L-As needed bronchodilator therapy * Chronic anemia-stable * DM-2-Had recent hemoglobin A1c in September and was 7.6-Patient is currently not on anything for her blood sugars as an outpatient-Has been on Levemir 8 units subcu--> fasting blood sugar this morning was 86 -Discontinue Levemir--> suspect acute elevation was related to infection- Continue sliding [id number]-[id number] as ordered-Patient now on renal carb controlled diet * History of dysphagia-Diet as ordered per speech therapy -speech therapy following-appreciate input-Currently on a mechanical soft thin liquid diet with being a total feed * Hypothyroidism-Continue home Synthroid * GERD/esophageal stenosis/history of erosive gastropathy-Continue p.o. Protonix-Hemoglobin is stable * Pulmonary hypertension-Likely related to morbid obesity and obstructive sleep apnea-Most recent echo shows a right ventricular systolic pressure of 40 mmHg- Continue dialysis for volume status management * History of HFpEF-Currently compensated * Restless leg syndrome-Continue ropinirole-Restart home nightly gabapentin * Diabetic neuropathy-Will hold gabapentin currently with somnolence * Hyperlipidemia-Continue home fenofibrate-Continue home atorvastatin * Obesity-BMI 39.2-Recommend weight loss-Complicates treatment, prognosis, outcomes * Depression-Continue home mirtazapine DVT prophylaxis SCDs CODE STATUS-Full code Discharge to [facility].
[2024-01-17 10:04] LABS: Bedside Glucose 101 mg/dL (74-106)
--- NOTE | 2024-01-17 10:04 | PCM.PRE.AN2 ---
ASA Classification* ASA Classification ASA Classification: 3 and E Assessment & Plan Anesthesia* Anesthesia Assessment Anesthesia Assessment: Discussed sedation and/or anesthesia options, risks, benefits, and alternatives with patient/parents/legal guardian/POA. Questions invited. The patient/parents/legal guardian/POA seems to understand and agrees to proceed with anesthesia plan. Reviewed the physical assessment, medical history, allergy history and patient home medications list prior to surgery/procedure/anesthetic and documented any changes. Performed airway and anesthesia risk assessments. Anesthesia Type Anesthesia Type: MAC (see written pre anesthesia record for full assessment) Anesthesia Focused Assessment* Temperature: 97.6 F Pulse Rate: 77 Blood Pressure: 101/42 Respiratory Rate: 22 Pulse Ox: 95 Fraction of Inspired Oxygen (FIO2): 30 Airway Assessment Mouth opens: >3 cm Mallampati Score: II Focused Labs Anesthesia Preop lab: CBC WBC 6.7 K/mm3 (4.4-11.0) 01/17/24 05:25 RBC 2.70 M/mm3 (4.2-5.4) L 01/17/24 05:25 Hgb 7.2 g/dL (12.0-15.0) L 01/17/24 05:25 Hct 24.7 % (37-47) L 01/17/24 05:25 Plt Count 123 K/mm3 (150-450) L 01/17/24 05:25 CHEMISTRY Potassium 3.8 mmol/L (3.5-5.1) 01/17/24 05:28 Sodium 136 mmol/L (136-145) 01/17/24 05:28 Magnesium 1.8 mg/dL (1.6-2.6) 01/11/24 04:05 Phosphorus 4.3 mg/dL (2.5-4.9) 01/11/24 04:05 BUN 34 mg/dL (7-18) H 01/17/24 05:28 Creatinine 3.06 mg/dL (0.55-1.02) H 01/17/24 05:28 Glucose 92 mg/dL (74-106) 01/17/24 05:28 POC Glucose 90 mg/dL (74-106) 01/17/24 06:41 TSH 1.69 uIU/mL (0.358-3.74) 06/19/24 08:23 COAG PT 14.9 SECONDS (11.7-14.9) 01/17/24 05:25 Pre-Assessment Diagnosis/Proposed Procedure Planned Operative Procedure(s): dialysis cath Anesthesia History Anesthesia History - second baller: Anesthesia History - second baller Hx Hospitalization Any Problems With Anesthesia No 01/17/24 03:00 Cholinesterase deficiency No 01/17/24 03:00 You/Your Family Experience No 01/17/24 03:00 fever (hyperthermia) with Relationship Recent Exposure to Contagious No 01/17/24 03:00 Disease Does patient have nerve No 01/17/24 03:00 stimulator Patient instructed to have device shut off --Does patient have Pacemaker or ICD? When Was Last Pacemaker Check QUESTION #4 FULL TEXT: You/Your Family Experience fever (hyperthermia) with Anesthesia Last Oral Intake Last Oral intake: Last Oral Intake NPO since 00:00 01/17/24 00:39 Meds taken in AM with sips of water? Meds patient instructed to take am of surgery PONV PONV - second baller: PONV - second baller Female HX of Motion Sickness HX of N/V After Surgery Non-Smoker Duration of Surgery greater than 60 minutes Number of Risk Factors PONV Score Height & Weight Height & Weight: Anesthesia: Height & Weight Height 5 ft 4.96 in 01/17/24 00:39 Weight: 105.6 kg 01/17/24 04:02 Body Mass Index (BMI) 38.7 01/17/24 04:02 Respiratory Assessment Respiratory Assessment - second baller: Respiratory Tract Infection Hx - second baller Hx Respiratory Tract Infection No 01/17/24 03:00 STOP Sleep Apnea STOP Sleep Apnea - second baller: STOP Sleep Apnea - second baller Hx Hypertension No 01/13/24 15:08 Hx Sleep Apnea No 01/07/24 11:59 CPAP Yes 09/24/23 11:45 BIPAP No 09/16/23 12:48 Do you snore loudly (louder No 01/07/24 11:59 than talking or can be heard Do you often feel tired/ No 01/07/24 11:59 fatigued/ sleepy during daytime? Has anyone observed you stop No 01/07/24 11:59 breathing during sleep? STOP Results Negative 01/07/24 11:59 QUESTION #5 FULL TEXT : Do you snore loudly (louder than talking or can be heard through closed doors)? 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 Specify any problems Hx of Preganancy in last 3 N/A 01/07/24 11:59 Months Nurse Filling Out Transfusion HFALK 01/07/24 11:59 & Questions: Date: 01/07/24 01/07/24 11:59 Time: 12:34 01/07/24 11:59 Patient unable to answer at this time (ie. confused, unrespo /Reproduction History /Reproductive History - second baller: /Reproductive Hx- second baller Hx Now No 01/17/24 03:00 Gestational Age (in weeks): EDC: Hx Hx Para Hx Section SAB No 01/17/24 03:00 Active Medications Active Medications: Current Medications Generic Name Dose Route Start Last Admin Trade Name Freq PRN Reason Stop Dose Admin Acetaminophen 650 mg 01/07/24 11:58 01/13/24 09:53 Acetaminophen 325 Mg Tablet PO 650 mg Q6H PRN PRN Administration Pain 1-10 Or Fever>100.7 Albuterol Sulfate 2.5 mg 01/07/24 11:58 Albuterol 2.5 Mg/3 Ml Vial.Neb. INHALATION Q2H PRN PRN SOB &/OR WHEEZING Gabapentin 300 mg 01/12/24 22:00 01/16/24 21:33 Gabapentin 300 Mg Capsule PO 300 mg QHS VERONICA Administration Glucagon 1 mg 01/07/24 11:58 Glucagon 1 Mg/Ml Syringe IM X1 PRN HYPOGLYCEMIA Protocol Glycerin/Hypromellose/Polyethylene 1 drp 01/07/24 12:04 Glycerin/Hypromellose/[id number] 15 Ml Bottle EACH EYE Q2H PRN dry eye(s) Dextrose 250 mls @ 999 mls/hr 01/07/24 11:58 01/08/24 12:20 Dextrose 10%-Water IV Infused .Q16M PRN Infusion HYPOGLYCEMIA Protocol Daptomycin 800 mg/ Sodium 66 mls @ 120 mls/hr 01/08/24 10:00 01/16/24 13:08 Chloride IV Infused Q48 VERONICA Infusion Dextrose 1,000 mls @ 60 mls/hr 01/13/24 10:25 01/16/24 22:04 IV 60 mls/hr .[id number] VERONICA Administration Insulin Human Lispro 0 unit 01/07/24 16:00 01/17/24 06:45 Insulin Lispro 100 Unit/Ml Insuln.Pen SC Not Given [facility] Protocol Mirtazapine 15 mg 01/12/24 22:00 01/16/24 21:32 Mirtazapine 15 Mg Tablet PO 15 mg QHS VERONICA Administration Nystatin 1 applic 01/07/24 22:00 01/16/24 21:33 Nystatin Powder 15gm Bottle TOPICAL 1 applic BID VERONICA Administration Protocol Ondansetron HCl 4 mg 01/07/24 11:58 Ondansetron 4 Mg/2 Ml Vial IV Q8H PRN PRN NAUSEA/VOMITING Pantoprazole Sodium 40 mg 01/11/24 22:00 01/16/24 21:32 Pantoprazole Sodium 40 Mg Tablet PO 40 mg BID VERONICA Administration Pramipexole Dihydrochloride 1 mg 01/12/24 14:00 01/17/24 06:52 Pramipexole Di-Hcl 1 Mg Tablet PO 1 mg TID VERONICA Administration Prednisolone Acetate 1 drp 01/07/24 14:00 01/16/24 21:33 Prednisolone Eye Drops (5 Ml) 1 Drop Opth.Btl OPHTHALMIC 1 drp 4X/DAY VERONICA Administration Senna/Docusate Sodium 2 tablet 01/07/24 11:58 Senna/Docusate Sodium 1 Tablet PO DAILY PRN constipation Sodium Chloride 10 - 40 ml 01/07/24 12:35 01/16/24 08:11 0.9% Saline Lock 10 Ml Syringe IV 20 ml UD PRN Administration SALINE FLUSH Sucralfate 1 gm 01/12/24 22:00 01/16/24 21:32 Sucralfate 1 Gm Tablet PO 1 gm BID VERONICA Administration PFSH Medical History Sepsis Acute on chronic anemia CKD (chronic kidney disease) Hypoxemia CHF (congestive heart failure) Respiratory failure with hypoxia and hypercapnia Diabetes Current use of insulin Restless legs COPD (chronic obstructive pulmonary disease) History of stress test Irregular heartbeat MSSA bacteremia Congestive heart failure Gastroparesis Anxiety CPAP (continuous positive airway pressure) dependence Sleep apnea On home oxygen therapy Chronic kidney disease Anemia Chest pain (HFpEF) heart failure with preserved ejection fraction Pleural effusion, left Pulmonary edema Chronic kidney disease Malaise History of fever GASTON (acute kidney injury) Retinal hemorrhage Lower extremity edema History of renal insufficiency History of diabetes mellitus Diabetes mellitus with diabetic polyneuropathy SACHIN (obstructive sleep apnea) Chronic acquired lymphedema Chronic anemia CKD (chronic kidney disease), stage III HLD (hyperlipidemia) HTN (hypertension) Morbid obesity Diabetes mellitus, type 2 Anxiety and depression Hypoxia Hypothyroidism Home Medications ?Medication ?Instructions ?Recorded ?Last Taken ?Type atorvastatin 10 mg tablet 10 mg PO QHS cholesterol 09/24/22 04/13/23 History fenofibrate nanocrystallized 48 mg 48 mg PO DAILY cholesterol 09/24/22 04/13/23 History tablet (Tricor) levothyroxine 150 mcg tablet 150 mcg PO DAILY@0600 THYROID 03/05/23 Unknown History ropinirole 4 mg tablet 4 mg PO QHS restless legs 03/05/23 05/01/23 History pen needle, diabetic 31 gauge x 04/14/23 Unknown History 1/4 (Easy Touch) pantoprazole 40 mg tablet,delayed 40 mg PO BID heartburn #60 tabs 05/08/23 Unknown Rx release sucralfate 1 gram tablet (Carafate) 1 g PO BID heartburn #60 tabs 05/08/23 Unknown Rx acetaminophen 325 mg tablet 650 mg PO Q6H PRN pain 08/26/23 Unknown History difluprednate 0.05 % eye drops 1 drp ophthalmic (eye) 4X/DAY 08/26/23 Unknown History bleeding behind eyes nystatin 100,000 unit/gram topical 1 applic topical BID yeast 08/26/23 Unknown History powder (Nystop) artificial tears(hypromellose) 0.3 1 drp EACH EYE Q2H PRN dry eye(s) 09/07/23 Unknown History % eye gel flash glucose sensor (FreeStyle 09/16/23 Unknown History Bandar 2 Sensor kit) gabapentin 300 mg capsule 300 mg PO QHS #0 caps 09/25/23 Unknown Rx midodrine 10 mg tablet 30 mg PO MOWEFR 12/31/23 Unknown History sennosides 8.6 mg-docusate sodium 2 tab-cap PO DAILY PRN constipation 12/31/23 Unknown History 50 mg tablet (2-in-1 Laxative) zinc sulfate 50 mg zinc (220 mg) 50 mg PO DAILY 12/31/23 Unknown History tablet B complex-vitamin C-folic acid ER 1 tab PO DAILY 01/07/24 Unknown History 400 mcg tablet,extended release midodrine 5 mg tablet 5 mg PO TIDCM 01/07/24 Unknown History mirtazapine 15 mg tablet 15 mg PO QHS 01/07/24 Unknown History daptomycin 500 mg intravenous 800 mg IV Q24H 10 days 01/16/24 Unknown Rx solution Allergy/AdvReac Type Severity Reaction Status Date / Time No Known Allergies Allergy Verified 09/16/23 08:52 Family History Mother Heart disease Hypertension Diabetes Father Prostate cancer Surgical History H/O cataract removal with insertion of prosthetic lens History of surgery on lower extremity History of cholecystectomy Social History housing: [facility] Smoking Status: Never smoker alcohol intake: never substance use type: does not use Review of Systems (Anesthesia) ROS Narrative System reviewed and no additional complaints, except as documented.
[2024-01-17] MEDS: Lidocaine 1% /Epi 1:100 (20ml) 20 ML Vial (10:54)
[2024-01-17] MEDS: Heparin 10,000 UNITS/10 ML Vial 10000 UNITS (11:01)
--- NOTE | 2024-01-17 11:06 | PCM.POST.ANE ---
Anesthesia: Postop Eval I Current Vital Signs Temperature: 37 F Pulse Rate: 79 Blood Pressure: 98/60 Respiratory Rate: 14 Pulse Ox: 93 Oxygen Delivery Method: Nasal Cannula Oxygen Flow Rate (L/min): 2 Assessment Airway patent: Yes Spontaneous unlabored respirations: Yes Mental status: Awake nausea: No Vomiting: No Anesthesia Complication: No Fluid Hydration Crystalloid volume administer (ml): 30 Total IV fluid infused: 30 Progress Note Anesthesia document: Postop Eval 1 completed: Yes
--- NOTE | 2024-01-17 11:09 | OP.PCM_ITS ---
Report of Operation Date of Procedure: 01/17/24 Pre-Operative Diagnosis: Infected dialysis catheter Post-Operative Diagnosis: Same Surgery/Procedure Performed:: Placement of new left chest tunneled dialysis catheter utilizing left IJ, ultrasound and fluoroscopy guided Type of Anesthesia: Local MAC Specimen's removed: None Estimated Blood Loss (mL): 10 Description of Procedure: Patient was brought back to the operating room and MAC anesthesia was induced. The left neck was prepped and draped in usual sterile fashion. Under ultrasound guidance the left IJ was localized. The skin overlying it was then injected with local anesthetic as well as a small area on the chest. A small incision was made in the neck and ultrasound was used to guide the needle into the IJ. Guidewire was then placed without resistance under fluoroscopy. The needle was removed over the wire and serial dilators and then the peel-away sheath were placed over the wire under fluoroscopy guidance. The wire was removed and a cap was placed. Next a small incision was made at the chest site and then the catheter and tunneler were tunneled from the chest incision to the neck incision. The tunneler was removed and the catheter was placed into the peel- away sheath. The peel-away sheath was then peeled away leaving the catheter in place and under good position under fluoroscopy. Each of the catheters was then drawn and flushed and they each omayra and flushed easily. They were each then flushed with 2 cc of heparinized saline and clamped and capped. Next the neck incision was closed with 3-0 Vicryl suture. The catheter was sutured to the skin using 3-0 nylon suture. Dressings were applied. X-ray will be obtained in PACU. Grafts/Implants Used: 23 cm palindrome curved cuffed dialysis catheter Admit VTE Documentation VTE Mechan Device Prophylaxis: SCD's
--- NOTE | 2024-01-17 11:10 | PCM.POSTANE2 ---
Anesthesia Postop Eval I Sum Postop Eval Completion status Anesthesia document: Postop Eval 1 completed: Yes Anesthesia Postop Eval I Summary Anesthesia Postop Eval I Summary: Anesthesia Postop Eval I: Assessment Summary Airway patent Yes 01/17/24 11:08 Spontaneous unlabored Yes 01/17/24 11:08 respirations Mental status Awake 01/17/24 11:08 nausea No 01/17/24 11:08 Vomiting No 01/17/24 11:08 Anesthesia Postop Eval I: Fluid Summary Crystalloid volume administer 30 01/17/24 11:08 (ml) Colloids volume administered ( ml) Blood Product volume administered (ml) Total IV fluid infused 30 01/17/24 11:08 Anesthesia Postop Eval I: Summary Notes Anesthesia Complication No 01/17/24 11:09 Anesthesia Complication Comment: Post-operative progress note Anesthesia: Postop Eval II Evaluation Mental status: Awake Pain Level: 0 nausea: No Vomiting: No
--- NOTE | 2024-01-17 11:11 | RAD_ITS ---
EXAM: XR CHEST, 1 VIEW CLINICAL INDICATION: line placement -- in pacu TECHNIQUE: Frontal view of the chest. COMPARISON: XR Chest dated 01/14/2024 FINDINGS: LUNGS AND PLEURAL SPACES: Persistent central parenchymal lung densities more prominent on the left than right which may represent edema and/or pneumonia. Small left pleural effusion. HEART: Normal heart size. MEDIASTINUM: No mediastinal or hilar mass. BONES/JOINTS: No acute abnormality. TUBES, LINES AND DEVICES: Tip of the dialysis catheter at the level of the mid superior vena cava. RAD/CXR for Line Placement IMPRESSION: 1. Satisfactory dialysis catheter placement. 2. Central bilateral pneumonia/pulmonary edema. Electronically Signed: Nam Castro MD at 12:20 EDT ,
[2024-01-17 12:28] LABS: Bedside Glucose 100 mg/dL (74-106)
--- NOTE | 2024-01-17 12:59 | CASEMGMT ---
Social Work SW marc Duggan, pt's authorization is good until 11:59pm on 01/16. Physician aware and will discharge pt back to [facility] today. ARIAN Philippe
--- NOTE | 2024-01-17 13:41 | TREXTCAR_ITS ---
Diet Diet Order/Speech Therapy: 01/17/24 07:16 Diet: Renal - General Dietary Modifications:: Consistent Carbohydrate Type of Dietary Supplement:: 120mL Nepro Q meal Is pt able to select menu?: No Diet Comments: patient is a total feed Routine Orders/Code Status O2 Liters per Minute: 2. BiPAP nightly and with naps O2 Frequency: Continuous Routine Lab Work: CBC (Friday) and BMP (Friday) Code Status: Full Code Wound(s) Left buttock: Wound Type: Pressure Injury Coccyx: Wound Type: Pressure Injury right upper chest: Wound Type: Surgical Incision Left neck: Wound Type: Surgical Incision left upper chest: Wound Type: Puncture lt neck: Wound Type: Surgical Incision Therapies Weight Bearing: Full weight bearing Physical Therapy: Eval and Treat Occupational Therapy: Eval and Treat Problem/Diagnosis (1) Hypotension: Status: Acute Code(s): I95.9 - Hypotension, unspecified (2) UTI (urinary tract infection): Status: Acute Code(s): N39.0 - Urinary tract infection, site not specified (3) Thrombocytopenia: Status: Acute Code(s): D69.6 - Thrombocytopenia, unspecified (4) Toxic metabolic encephalopathy: Status: Acute Code(s): G92.8 - Other toxic encephalopathy Plan Septic shock secondary to VRE UTI and bacteremia * Resolved * Blood and urine cultures both positive for VRE from the , and . Cultures from the and are currently pending. * Currently on daptomycin * Echocardiogram shows an EF of 70% with the inability to assess diastolic dysfunction and no valvular abnormalities or abscesses noted * Continue daptomycin and cefepime * Repeat cultures from 01/08/2024 remain positive * Tunneled dialysis catheter removed on a.m. of 01/10/2024 blood culture on the positive. From the still pending. Discussed with Dr. Weir, who recommends against placing a tunneled dialysis catheter at this time recommending a temporary line. Informed Dr. Burton who deferred temporary line placement to Dr. Weir, but will be available to tunnelled line when appropriate. * Dr. Weir and I placed left IJ temporary dialysis catheter on 01/13 (see procedure note) * 01/15: discussed with microbiology, BCx on 01/11 and 01/[address] Dickerson, ok for tunnelled dialysis catheter. * Dr. Burton to perform tunnelled HD catheter 01/16 * Pt to continue IV daptomycin upon discharge with stop date of 01/25 End-stage renal disease * Dialysis dependent-Dialysis catheter removed 01/10/2024. Left IJ temporary catheter placed 01/13 * Nephrology following. 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-BiPAP nocturnally--> patient is noncompliant at baseline with nocturnal BiPAP-Continue home oxygen as ordered- Typically on 4 L per previous documentation at baseline--> has been stable here on 2 to 3 L-As needed bronchodilator therapy * Chronic anemia-stable * DM-2-Had recent hemoglobin A1c in September and was 7.6-Patient is currently not on anything for her blood sugars as an outpatient-Has been on Levemir 8 units subcu--> fasting blood sugar this morning was 86 -Discontinue Levemir--> suspect acute elevation was related to infection- Continue sliding cpjyv-Ekjc-Lpzck as ordered-Patient now on renal carb controlled diet * History of dysphagia-Diet as ordered per speech therapy -speech therapy following-appreciate input-Currently on a mechanical soft thin liquid diet with being a total feed * Hypothyroidism-Continue home Synthroid * GERD/esophageal stenosis/history of erosive gastropathy-Continue p.o. Protonix-Hemoglobin is stable * Pulmonary hypertension-Likely related to morbid obesity and obstructive sleep apnea-Most recent echo shows a right ventricular systolic pressure of 40 mmHg- Continue dialysis for volume status management * History of HFpEF-Currently compensated * Restless leg syndrome-Continue ropinirole-Restart home nightly gabapentin * Diabetic neuropathy-Will hold gabapentin currently with somnolence * Hyperlipidemia-Continue home fenofibrate-Continue home atorvastatin * Obesity-BMI 39.2-Recommend weight loss-Complicates treatment, prognosis, outcomes * Depression-Continue home mirtazapine DVT prophylaxis SCDs CODE STATUS-Full code Discharge to [facility]. Allergies/Procedures Done in Hospital Allergies No Known Allergies Allergy (Verified 09/16/23 08:52) Type of Care/Length of Stay Estimated LOS: Convalescent Care Less Than 30 days Type of Care Needed: Skilled Rehab Potential: Fair Prognosis: Fair Additional Orders/Day of Discharge Day of Discharge: 01/17/24 Dietary and Speech Recommendations Dietitian Recommendations/Changes: Continue Renal General - Consistent CHO -co nsistency per CASTING COORDINATOR to manage medical conditions. 120mL Nepro 3 times per day with meals as tolerated. Consider enteral nutrition support if PO remains poor and inadequate at meals. Discharge Plan Admission Admit Date/Time: 01/07/24 11:22 Primary Reason for Your Visit: Septic shock. Attending Provider: Jason Hernandez Primary Care Provider: Cortez Smith Consulting Providers: Brian Burton; Tobias Dickerson; Jose Luis Lechuga; Karissa Szymanski Instructions Additional Instructions / Restrictions: Dialysis every Friday. Discharge Orders/Prescriptions Prescriptions: New daptomycin 500 mg recon soln 800 mg IV Q24H 10 Days Rx Instructions: Stop date 01/26/24. Dose with dialysis sessions: 800mg on Mondays, 800mg on Wednesdays, and 1200mg on Fridays. Dx: VRE bacteremia. Weekly bmp, cbc, CK, and LFT. Fax to [phone]. insulin lispro [Humalog KwikPen Insulin] 100 unit/mL Insulin Pen See Protocol subcut TIDAC Qty: 0 0RF Protocol: 3. Sliding Scale Insulin Med Dosing Condition: 150-189 mg/dl = 1 unit Condition: 190-229 mg/dl = 2 units Condition: 230-269 mg/dl = 3 units Condition: 270-309 mg/dl = 4 units Condition: 310-349 mg/dl = 5 units Condition: 350-399 mg/dl = 6 units Condition: 400-449 mg/dl = 7 units Condition: Greater than 449 call physician Protocol Text: - Use for Total Daily Dose of Insulin 37-55 units - Obsese, infected, or steroid patients MEDIUM DOSING ALGORITHIM Continued levothyroxine 150 mcg tablet 150 mcg PO DAILY@0600 atorvastatin 10 mg Tablet 10 mg PO QHS fenofibrate nanocrystallized [Tricor] 48 mg Tablet 48 mg PO DAILY ropinirole 4 mg tablet 4 mg PO QHS Rx Instructions: administer 1-3 hours before bedtime (DME) pen needle, diabetic [Easy Touch] 31 gauge x 1/4 needle MISCELLANEOUS sucralfate [Carafate] 1 gram tablet 1 g PO BID Qty: 60 1RF pantoprazole 40 mg tablet,delayed release (DR/EC) 40 mg PO BID Qty: 60 2RF acetaminophen 325 mg tablet 650 mg PO Q6H PRN (Reason: pain) difluprednate 0.05 % drops 1 drp ophthalmic (eye) 4X/DAY Rx Instructions: BOTH EYES- HAD SHOTS IN HER EYES W BLEEDING BEHIND THEM nystatin [Nystop] 100,000 unit/gram powder 1 applic TOPICAL BID Rx Instructions: APPLY TO GROIN AND UNDER BREASTS artificial tears(hypromellose) 0.3 % gel 1 drp EACH EYE Q2H PRN (Reason: dry eye(s)) midodrine 10 mg tablet 30 mg PO MOWE Rx Instructions: TAKE 3 TABLETS ONCE DAILY ON FRIDAY, FRIDAY, AND FRIDAY BEFORE DIALYSIS sennosides-docusate sodium [2-in-1 Laxative] 8.6-50 mg tablet 2 tab-cap PO DAILY PRN (Reason: constipation) zinc sulfate 50 mg zinc (220 mg) tablet 50 mg PO DAILY (DME) [employer] Bandar 2 Sensor Kit MISCELLANEOUS gabapentin 300 mg Capsule 300 mg PO QHS Qty: 0 0RF B complex-vitamin C-folic acid 400 mcg tablet extended release 1 tab PO DAILY mirtazapine 15 mg tablet 15 mg PO QHS midodrine 5 mg tablet 5 mg PO TIDCM Discontinued cefuroxime axetil 250 mg tablet 250 mg PO QHS Rx Instructions: START DATE- 01/07/24 END- 01/12/24 doxycycline hyclate 100 mg tablet 100 mg PO BID Rx Instructions: FOR 7 DAYS. START- 01/06/24 END-01/13/24 Referrals / Follow Up: Cortez Smith DO [Primary Care Provider] - Within 2 Weeks Disposition Disposition (needs filled in before D/C Order can be placed[facility]
--- NOTE | 2024-01-17 13:46 | DS.PCM_ITS ---
Providers Date of Admission: 01/07/24 Primary Care Physician: Dr. Cortez Smith, Consultations 01/07/24 11:58 Consult: Chain Link Fence Installer / Pulmonary Medicine Routine Consulting Provider: Intensivists/Pulmonary Med Reason for Consult: hypotension with UTI EMERGENT Consult: No MD Notified: Yes Date Notified: 01/07/24 Time Notified: 11:38 Method of Notification: Text Consult: Nephrology Routine Consulting Provider: Jose Luis Lechuga Reason for Consult: ESRD on HD EMERGENT Consult: No MD Notified: Yes Date Notified: 01/07/24 Time Notified: 11:32 Method of Notification: Answering Service 01/08/24 09:17 Consult: Infectious Disease Routine Consulting Provider: Tobias Dickerson Reason for Consult: Septic Shock with Bacteremia EMERGENT Consult: No MD Notified: Yes Date Notified: 01/08/24 Time Notified: 09:35 Method of Notification: Answering Service 01/08/24 14:01 Consult: General Surgery Routine Consulting Provider: Brian Burton Reason for Consult: Tunneled HD catheter removal EMERGENT Consult: No MD Notified: Yes Date Notified: 01/08/24 Time Notified: 14:01 Method of Notification: Verbal Reason For Visit: HYPOTENSION WITH SUSPECTED UTI Diagnosis Discharge Diagnosis (1) Hypotension: Status: Acute Code(s): I95.9 - Hypotension, unspecified (2) UTI (urinary tract infection): Status: Acute Code(s): N39.0 - Urinary tract infection, site not specified (3) Thrombocytopenia: Status: Acute Code(s): D69.6 - Thrombocytopenia, unspecified (4) Toxic metabolic encephalopathy: Status: Acute Code(s): G92.8 - Other toxic encephalopathy Plan Septic shock secondary to VRE UTI and bacteremia * Resolved * Blood and urine cultures both positive for VRE from the , and . Cultures from the and are currently pending. * Currently on daptomycin * Echocardiogram shows an EF of 70% with the inability to assess diastolic dysfunction and no valvular abnormalities or abscesses noted * Continue daptomycin and cefepime * Repeat cultures from 01/08/2024 remain positive * Tunneled dialysis catheter removed on a.m. of 01/10/2024 blood culture on the positive. From the still pending. Discussed with Dr. Weir, who recommends against placing a tunneled dialysis catheter at this time recommending a temporary line. Informed Dr. Burton who deferred temporary line placement to Dr. Weir, but will be available to tunnelled line when appropriate. * Dr. Weir and I placed left IJ temporary dialysis catheter on 01/13 (see procedure note) * 01/15: discussed with microbiology, BCx on 01/11 and 01/13 negative. DW balbina Proctor for tunnelled dialysis catheter. * Dr. Burton to perform tunnelled HD catheter 01/16 * Pt to continue IV daptomycin upon discharge with stop date of 01/25 End-stage renal disease * Dialysis dependent-Dialysis catheter removed 01/10/2024. Left IJ temporary catheter placed 01/13 * Nephrology following. 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--> patient is noncompliant at baseline with nocturnal BiPAP-Continue home oxygen as ordered- Typically on 4 L per previous documentation at baseline--> has been stable here on 2 to 3 L-As needed bronchodilator therapy * Chronic anemia-stable * DM-2-Had recent hemoglobin A1c in September and was 7.6-Patient is currently not on anything for her blood sugars as an outpatient-Has been on Levemir 8 units subcu--> fasting blood sugar this morning was 86 -Discontinue Levemir--> suspect acute elevation was related to infection- Continue sliding bgajn-Aoxj-Yngcm as ordered-Patient now on renal carb controlled diet * History of dysphagia-Diet as ordered per speech therapy -speech therapy following-appreciate input-Currently on a mechanical soft thin liquid diet with being a total feed * Hypothyroidism-Continue home Synthroid * GERD/esophageal stenosis/history of erosive gastropathy-Continue p.o. Protonix-Hemoglobin is stable * Pulmonary hypertension-Likely related to morbid obesity and obstructive sleep apnea-Most recent echo shows a right ventricular systolic pressure of 40 mmHg- Continue dialysis for volume status management * History of HFpEF-Currently compensated * Restless leg syndrome-Continue ropinirole-Restart home nightly gabapentin * Diabetic neuropathy-Will hold gabapentin currently with somnolence * Hyperlipidemia-Continue home fenofibrate-Continue home atorvastatin * Obesity-BMI 39.2-Recommend weight loss-Complicates treatment, prognosis, outcomes * Depression-Continue home mirtazapine DVT prophylaxis SCDs CODE STATUS-Full code Discharge to [facility]. Medications at Discharge Home Medications atorvastatin 10 mg tablet 10 mg PO QHS cholesterol 09/24/22 fenofibrate nanocrystallized 48 mg tablet (Tricor) 48 mg PO DAILY cholesterol 09/24/22 levothyroxine 150 mcg tablet 150 mcg PO DAILY@0600 THYROID 03/05/23 ropinirole 4 mg tablet 4 mg PO QHS restless legs 03/05/23 pen needle, diabetic 31 gauge x 1/4 (Easy Touch) 04/14/23 pantoprazole 40 mg tablet,delayed release 40 mg PO BID heartburn #60 tabs 05/08/23 sucralfate 1 gram tablet (Carafate) 1 g PO BID heartburn #60 tabs 05/08/23 acetaminophen 325 mg tablet 650 mg PO Q6H PRN pain 08/26/23 difluprednate 0.05 % eye drops 1 drp ophthalmic (eye) 4X/DAY bleeding behind eyes 08/26/23 nystatin 100,000 unit/gram topical powder (Nystop) 1 applic topical BID yeast 08/26/23 artificial tears(hypromellose) 0.3 % eye gel 1 drp EACH EYE Q2H PRN dry eye(s) 09/07/23 flash glucose sensor (FreeStyle Bandar 2 Sensor kit) 09/16/23 gabapentin 300 mg capsule 300 mg PO QHS #0 caps 09/25/23 midodrine 10 mg tablet 30 mg PO MOWEFR 12/31/23 sennosides 8.6 mg-docusate sodium 50 mg tablet (2-in-1 Laxative) 2 tab-cap PO DAILY PRN constipation 12/31/23 zinc sulfate 50 mg zinc (220 mg) tablet 50 mg PO DAILY 12/31/23 B complex-vitamin C-folic acid ER 400 mcg tablet,extended release 1 tab PO DAILY 01/07/24 midodrine 5 mg tablet 5 mg PO TIDCM 01/07/24 mirtazapine 15 mg tablet 15 mg PO QHS 01/07/24 daptomycin 500 mg intravenous solution 800 mg IV Q24H 10 days 01/16/24 insulin lispro 100 unit/mL subcutaneous pen (Humalog KwikPen (U-100) Insulin) See Protocol subcut TIDAC #0 mL 01/17/24 Hospital Course Operations None Procedures Central line placement, Dialysis and - (Tunneled dialysis catheter removal and replacement. Placement of a temporary dialysis catheter.) Summary of Care Provided Minutes Spent on Discharge: 40 Hospital Course: Patient was found to be in septic shock with a change in mental status. Patient was found to have VRE bacteremia. This is likely due to her dialysis line. Patient had it removed on the . Plan was for later on if the cultures are negative to have the tunneled dialysis catheter placed on , however, the cultures came back positive. So temporary dialysis catheter was placed on the . Cultures on the and were negative. Patient underwent tunneled dialysis catheter. Patient was seen in consultation by nephrology to continue dialysis while infectious disease. Patient will be continued on daptomycin upon discharge. Weight / BMI Weight Weight: 105.6 kg Body Mass Index (BMI) 38.7 ABG / Lab / Microbiology Data 01/17/24 05:25 01/17/24 05:28 Laboratory: Laboratory Results - last 24 hr 01/16/24 16:04: POC Glucose 97 01/16/24 21:28: POC Glucose 100 01/17/24 05:25: WBC 6.7, RBC 2.70 L, Hgb 7.2 L, Hct 24.7 L, MCV 91.5, MCH 26.7 L , MCHC 29.1 L, RDW Std Deviation 57.8 H, RDW Coeff of Vlad 17.8 H, Plt Count 123 L, MPV 11.1, Immature Gran % (Auto) 4.500 H, Neut % (Auto) 68.2, Lymph % (Auto) 16.1 L, [place] % (Auto) 10.1 H, Eos % (Auto) 1.0, Baso % (Auto) 0.1, Absolute Neuts (auto) 4.6, Absolute Lymphs (auto) 1.08, Nucleated RBC % 0, PT 14.9, INR 1.2, APTT 57.3 H 01/17/24 05:28: Sodium 136, Potassium 3.8, Chloride 104, Carbon Dioxide 24.0, Anion Gap 8, BUN 34 H, Creatinine 3.06 H, Estim Creat Clear Calc 21.72, Est GFR (MDRD) Af Amer 20 L, Est GFR (MDRD) Non-Af 16 L, BUN/Creatinine Ratio 11.1, Glucose 92, Calcium 8.5 01/17/24 06:41: POC Glucose 90 01/17/24 09:47: POC Glucose 101 01/17/24 12:09: POC Glucose 100 Microbiology: Microbiology 01/12/24 05:10 Blood Culture (Wb) - Anticubital Left Blood Culture - Final No growth in 5 days. 01/11/24 11:18 Blood Culture (Wb) - Anticubital Left Bacteria Detection (PCR) - Final Vancomycin Resist. E. faecalis Lorenzo/vanB Resistance Marker 01/11/24 11:18 Blood Culture (Wb) - Anticubital Left Blood Culture - Final Vancomycin Resist. E. faecalis 01/14/24 09:44 Blood Culture (Wb) - Left Hand Blood Culture - Preliminary No growth in 48 hours. 01/14/24 09:38 Blood Culture (Wb) - Anticubital Right Blood Culture - Preliminary No growth in 48 hours. 01/08/24 10:05 Blood Culture (Wb) - Other Blood Culture - Final Enterococcus faecalis 01/07/24 08:40 Blood Culture (Wb) - Left Hand Bacteria Detection (PCR) - Final Vancomycin Resist. E. faecalis 01/07/24 08:40 Blood Culture (Wb) - Left Hand Blood Culture - Final Vancomycin Resist. E. faecalis 01/07/24 09:17 Urine Catheter - Catheter Urine Culture - Final Lactobacillus casei Yeast, not Yulia albicans 01/07/24 08:37 Blood Culture (Wb) - Anticubital Left Blood Culture - Final GPC Poss Enterococcus sp Radiography Diagnostic Testing: Radiology Impression Chest X-Ray 01/17/24 11:11 IMPRESSION: 1. Satisfactory dialysis catheter placement. 2. Central bilateral pneumonia/pulmonary edema. Electronically Signed: Nam Castro MD at 12:20 EDT , D/C Instructions Discharge Diet: Renal Diet Meaningful Use Info Meaningful Use Meaningful Use Diagnoses (Choose all that apply): None applicable Ischemic Stroke Statin Dosing Therapy Reference: STATIN DOSE THERAPY REFERENCE: * Patients > 75 years receive moderate or high dose statin therapy. * Patients 75 years or YOUNGER should receive HIGH intensity statin dose unless contraindicated. You will be required to document reason for non-treatment if statin daily dose does not meet guidelines. HIGH DOSE STATIN THERAPY DAILY Atorvastatin > than or = to 40 mg Rosuvastatin > than or = to 20 mg Amlodipine + Atorvastatin > than or = to 2.5/40 mg Ezetimibe + Simvastatin 10/80 mg Simvastatin 80mg Discharge Plan Admission Admit Date/Time: 01/07/24 11:22 Primary Reason for Your Visit: Septic shock. Attending Provider: Jason Hernandez Primary Care Provider: Cortez Smith Consulting Providers: Brian Burton; Tobias Dickerson; Jose Luis Lechuga; Karissa Szymanski Instructions Additional Instructions / Restrictions: Dialysis every Friday. Discharge Orders/Prescriptions Prescriptions: New daptomycin 500 mg recon soln 800 mg IV Q24H 10 Days Rx Instructions: Stop date 01/26/24. Dose with dialysis sessions: 800mg on Mondays, 800mg on Wednesdays, and 1200mg on Fridays. Dx: VRE bacteremia. Weekly bmp, cbc, CK, and LFT. Fax to [phone]. insulin lispro [Humalog KwikPen Insulin] 100 unit/mL Insulin Pen See Protocol subcut TIDAC Qty: 0 0RF Protocol: 3. Sliding Scale Insulin Med Dosing Condition: 150-189 mg/dl = 1 unit Condition: 190-229 mg/dl = 2 units Condition: 230-269 mg/dl = 3 units Condition: 270-309 mg/dl = 4 units Condition: 310-349 mg/dl = 5 units Condition: 350-399 mg/dl = 6 units Condition: 400-449 mg/dl = 7 units Condition: Greater than 449 call physician Protocol Text: - Use for Total Daily Dose of Insulin 37-55 units - Obsese, infected, or steroid patients MEDIUM DOSING ALGORITHIM Continued levothyroxine 150 mcg tablet 150 mcg PO DAILY@0600 atorvastatin 10 mg Tablet 10 mg PO QHS fenofibrate nanocrystallized [Tricor] 48 mg Tablet 48 mg PO DAILY ropinirole 4 mg tablet 4 mg PO QHS Rx Instructions: administer 1-3 hours before bedtime (DME) pen needle, diabetic [Easy Touch] 31 gauge x 1/4 needle MISCELLANEOUS sucralfate [Carafate] 1 gram tablet 1 g PO BID Qty: 60 1RF pantoprazole 40 mg tablet,delayed release (DR/EC) 40 mg PO BID Qty: 60 2RF acetaminophen 325 mg tablet 650 mg PO Q6H PRN (Reason: pain) difluprednate 0.05 % drops 1 drp ophthalmic (eye) 4X/DAY Rx Instructions: BOTH EYES- HAD SHOTS IN HER EYES W BLEEDING BEHIND THEM nystatin [Nystop] 100,000 unit/gram powder 1 applic TOPICAL BID Rx Instructions: APPLY TO GROIN AND UNDER BREASTS artificial tears(hypromellose) 0.3 % gel 1 drp EACH EYE Q2H PRN (Reason: dry eye(s)) midodrine 10 mg tablet 30 mg PO MOWEFR Rx Instructions: TAKE 3 TABLETS ONCE DAILY ON FRIDAY, FRIDAY, AND FRIDAY BEFORE DIALYSIS sennosides-docusate sodium [2-in-1 Laxative] 8.6-50 mg tablet 2 tab-cap PO DAILY PRN (Reason: constipation) zinc sulfate 50 mg zinc (220 mg) tablet 50 mg PO DAILY (DME) FreeStyle Bandar 2 Sensor Kit MISCELLANEOUS gabapentin 300 mg Capsule 300 mg PO QHS Qty: 0 0RF B complex-vitamin C-folic acid 400 mcg tablet extended release 1 tab PO DAILY mirtazapine 15 mg tablet 15 mg PO QHS midodrine 5 mg tablet 5 mg PO TIDCM Discontinued cefuroxime axetil 250 mg tablet 250 mg PO QHS Rx Instructions: START DATE- 01/07/24 END- 01/12/24 doxycycline hyclate 100 mg tablet 100 mg PO BID Rx Instructions: FOR 7 DAYS. START- 01/06/24 END-01/13/24 Referrals / Follow Up: Cortez Smith DO [Primary Care Provider] - Within 2 Weeks Disposition Disposition (needs filled in before D/C Order can be placed): Group Home Facility Charges/Coding Visit Charges Inpatient E&M: 29307 Disch Hosp >30min
[2024-01-17] MEDS: prednisoLONE eye drops (5 mL) 1 DROP OPTH.BTL 1 DRP OPHTHALMIC (14:34)
== END 2024-01-17 15:10 | disposition skilled nursing facility (03) | DRG 871 ==
LOC: ED 11:24 → ICU 11:42 → PCU 01-11 14:14
PROVIDERS: Anesthesiology; Internal Medicine Critical Care Medicine; Internal Medicine Infectious Disease; Surgery; Admitting Provider Internal Medicine; Emergency Provider Emergency Medicine; PCP Internal Medicine
PROC: 0JH63XZ Insertion of Tunneled Vascular Access Device into Chest Subcutaneous Tissue and Fascia, Percutaneous Approach (ICD-10-PCS; principal; 2024-01-17 07:45)
DX: A41.59 Other Gram-negative sepsis (principal); G92.8 Other toxic encephalopathy; R65.21 Severe sepsis with septic shock; N18.6 End stage renal disease; E87.20 Acidosis, unspecified; E87.0 Hyperosmolality and hypernatremia; I13.2 Hypertensive heart and chronic kidney disease with heart failure and with stage 5 chronic kidney disease, or end stage renal disease; J96.11 Chronic respiratory failure with hypoxia; I50.32 Chronic diastolic (congestive) heart failure; N39.0 Urinary tract infection, site not specified; Z16.21 Resistance to vancomycin; D69.6 Thrombocytopenia, unspecified; D63.1 Anemia in chronic kidney disease; J44.9 Chronic obstructive pulmonary disease, unspecified; E66.01 Morbid (severe) obesity due to excess calories; I27.22 Pulmonary hypertension due to left heart disease; E11.42 Type 2 diabetes mellitus with diabetic polyneuropathy; E11.65 Type 2 diabetes mellitus with hyperglycemia; E11.22 Type 2 diabetes mellitus with diabetic chronic kidney disease; E11.43 Type 2 diabetes mellitus with diabetic autonomic (poly)neuropathy; A41.81 Sepsis due to Enterococcus; E03.9 Hypothyroidism, unspecified; G25.81 Restless legs syndrome; F32.A Depression, unspecified; E78.5 Hyperlipidemia, unspecified; G47.33 Obstructive sleep apnea (adult) (pediatric); K21.9 Gastro-esophageal reflux disease without esophagitis; K22.2 Esophageal obstruction; Z99.2 Dependence on renal dialysis; K31.84 Gastroparesis; Z68.38 Body mass index [BMI] 38.0-38.9, adult; R53.81 Other malaise; Z68.39 Body mass index [BMI] 39.0-39.9, adult; B95.62 Methicillin resistant Staphylococcus aureus infection as the cause of diseases classified elsewhere; Z99.81 Dependence on supplemental oxygen; Z99.89 Dependence on other enabling machines and devices; Z91.199 Patient's noncompliance with other medical treatment and regimen due to unspecified reason; Z98.49 Cataract extraction status, unspecified eye; Z79.85 Long-term (current) use of injectable non-insulin antidiabetic drugs
CPT/HCPCS: 36415; 36600; 70450; 71045; 74176; 76000; 80048; 80053; 81001; 82550; 82803; 82962; 83036; 83605; 83735; 84100; 84443; 84484; 85018; 85025; 85610; 85730; 86900; 86901; 86965; 87040; 87077; 87086; 87088; 87149; 87186; 87641; 90937; 92526; 92610; 93005; 93306; 94002; 94003; 94762; 97161; 97166; 97530; 97535; 97802; 97803; 99252; 99285; J0878; J2997; J7030; J7040; J7050; P9035; P9612; Q9957; A4216; G0257; G0463; J2597; J3490; J7799; Q5106

== ENCOUNTER 2024-01-26 04:27 | Inpatient (IN) | payer MEDICARE, MEDICAID, SELFPAY ==
[2024-01-26] VITALS (58 sets, daily range): BP systolic 68–147; BP diastolic 30–58; PULSE 63–108; RESP 15–32; TEMP 36.3–36.7; O2SAT 91–100; BMI 40.3; BMI 38.2
--- NOTE | 2024-01-26 04:44 | RAD_ITS ---
INDICATION: pain EXAMINATION/TECHNIQUE: X-RAY - XR Hip Unilateral with Pelvis when performed; 2-3 Views COMPARISON: FINDINGS: No fracture demonstrated. Femoral heads are normal in contour. No dislocation of the hips. Arterial calcifications noted. RAD/HIP, UNI W/ Pelvis 2-3 Views IMPRESSION: No evidence of fracture. Electronically Signed: Lydia Arthur MD at 6:07 EDT ,
--- NOTE | 2024-01-26 04:44 | RAD_ITS ---
INDICATION: pain EXAMINATION/TECHNIQUE: X-RAY - XR Sacrum/Coccyx Min 2 Views COMPARISON: FINDINGS: No definite fracture demonstrated. Degenerative changes at the lower lumbar spine. RAD/Sacrum-Coccyx min 2 Views IMPRESSION: No definite fracture demonstrated. CT may be helpful for further evaluation if clinically indicated.. Electronically Signed: Lydia Arthur MD at 6:08 EDT ,
--- NOTE | 2024-01-26 04:58 | EX.ED.DYSGE1 ---
HPI History of Present Illness Chief Complaint: Fall Informant: patient, EMS and SNF Narrative Narrative: Patient is a 63-year-old female with past medical history of end-stage renal disease on dialysis type 2 diabetes and recent admission to the hospital secondary to sepsis. She was discharged at the end of December and is currently on daptomycin. Reportedly patient got up and felt weak and fell landing on her knees. She denies striking her head or any loss of consciousness and she states that he does not have a history of bleeding disorder or take blood thinners. correction states they are able to help the patient up but checked her vitals and her blood pressure was low and with her recent admission for sepsis they sent her in for evaluation. Patient complains of pain in her buttocks at this time [facility] Medical History History of diabetes mellitus History of renal dialysis Hx of renal failure ESRF (end stage renal failure) Thrombocytopenia Hypoxia Morbid (severe) obesity due to excess calories Sepsis Acute on chronic anemia CKD (chronic kidney disease) Hypoxemia CHF (congestive heart failure) Respiratory failure with hypoxia and hypercapnia Diabetes Current use of insulin Restless legs COPD (chronic obstructive pulmonary disease) History of stress test Irregular heartbeat MSSA bacteremia Congestive heart failure Gastroparesis Anxiety CPAP (continuous positive airway pressure) dependence Sleep apnea On home oxygen therapy Chronic kidney disease Anemia Chest pain (HFpEF) heart failure with preserved ejection fraction Pleural effusion, left Pulmonary edema Chronic kidney disease Malaise History of fever GASTON (acute kidney injury) Retinal hemorrhage Lower extremity edema History of renal insufficiency History of diabetes mellitus Diabetes mellitus with diabetic polyneuropathy SACHIN (obstructive sleep apnea) Chronic acquired lymphedema Chronic anemia CKD (chronic kidney disease), stage III HLD (hyperlipidemia) HTN (hypertension) Morbid obesity Diabetes mellitus, type 2 Anxiety and depression Hypoxia Hypothyroidism Home Medications ?Medication ?Instructions ?Recorded ?Last Taken ?Type atorvastatin 10 mg tablet 10 mg PO QHS cholesterol 09/24/22 04/13/23 History fenofibrate nanocrystallized 48 mg 48 mg PO DAILY cholesterol 09/24/22 04/13/23 History tablet (Tricor) levothyroxine 150 mcg tablet 150 mcg PO DAILY@0600 THYROID 03/05/23 Unknown History ropinirole 4 mg tablet 4 mg PO QHS restless legs 03/05/23 05/01/23 History pen needle, diabetic 31 gauge x 04/14/23 Unknown History 1/4 (Easy Touch) pantoprazole 40 mg tablet,delayed 40 mg PO BID heartburn #60 tabs 05/08/23 Unknown Rx release sucralfate 1 gram tablet (Carafate) 1 g PO BID heartburn #60 tabs 05/08/23 Unknown Rx difluprednate 0.05 % eye drops 1 drp ophthalmic (eye) DAILY 08/26/23 Unknown History bleeding behind eyes nystatin 100,000 unit/gram topical 1 applic topical BID yeast 08/26/23 Unknown History powder (Nystop) flash glucose sensor (FreeStyle 09/16/23 Unknown History Bandar 2 Sensor kit) gabapentin 300 mg capsule 300 mg PO QHS #0 caps 09/25/23 Unknown Rx midodrine 10 mg tablet 30 mg PO MOWEFR 12/31/23 Unknown History sennosides 8.6 mg-docusate sodium 2 tab-cap PO DAILY PRN constipation 12/31/23 Unknown History 50 mg tablet (2-in-1 Laxative) zinc sulfate 50 mg zinc (220 mg) 50 mg PO DAILY 12/31/23 Unknown History tablet B complex-vitamin C-folic acid ER 0.8 tab PO DAILY 01/07/24 Unknown History 400 mcg tablet,extended release midodrine 5 mg tablet 10 mg PO TIDCM 01/07/24 Unknown History mirtazapine 15 mg tablet 15 mg PO QHS 01/07/24 Unknown History daptomycin 500 mg intravenous 800 mg IV Q24H 10 days 01/16/24 Unknown Rx solution insulin lispro 100 unit/mL See Protocol subcut TIDAC #0 mL 01/17/24 Unknown Rx subcutaneous pen (Humalog KwikPen (U-100) Insulin) Allergy/AdvReac Type Severity Reaction Status Date / Time No Known Allergies Allergy Verified 09/16/23 08:52 Family History Mother Heart disease Hypertension Diabetes Father Prostate cancer Surgical History H/O cataract removal with insertion of prosthetic lens History of surgery on lower extremity History of cholecystectomy Social History housing: retirement Smoking Status: Never smoker alcohol intake: never substance use type: does not use ROS ROS ED Constitutional Constitutional ED: Denies chills or fever(s) Eyes Eyes: Denies change in vision ENT ENT ED: Denies sore throat Cardiovascular Cardiovascular: Reports other Details: Negative syncope ; Denies chest pain or palpitations Respiratory/Chest Respiratory/Chest: Denies cough or dyspnea Gastrointestinal Gastrointestinal: Denies abdominal pain, diarrhea, nausea or vomiting Genitourinary Genitourinary ED: Denies dysuria Musculoskeletal Musculoskeletal: Reports back pain; Denies neck pain Integumentary Denies rash Neurologic Neurologic: Reports weakness; Denies headache(s) Hematologic/Lymphatic Hematologic/Lymphatic: Denies easy bleeding or easy bruising EXAM Physical Exam Const Vital Signs: 01/26/24 04:27 01/26/24 04:32 01/26/24 04:32 Temperature 98.1 F Temperature Source Oral Pulse Rate 72 Respiratory Rate 24 H Respiratory Effort Normal Non-Labored Normal Non-Labored Respiratory Depth Normal Respiratory Pattern Normal Normal Blood Pressure 70/44 L Blood Pressure Mean 52 Pulse Ox 94 Oxygen Delivery Method Nasal Cannula Nasal Cannula Oxygen Flow Rate (L/min) 4 4 01/26/24 05:00 01/26/24 05:30 01/26/24 06:00 Temperature Temperature Source Pulse Rate 74 69 67 Respiratory Rate 19 H 21 H 22 H Respiratory Effort Respiratory Depth Respiratory Pattern Blood Pressure 81/46 L 87/39 L 94/44 L Blood Pressure Mean 57 55 60 Pulse Ox 100 99 99 Oxygen Delivery Method Nasal Cannula Nasal Cannula Nasal Cannula Oxygen Flow Rate (L/min) 4 4 4 01/26/24 06:30 01/26/24 07:33 Temperature Temperature Source Pulse Rate 71 95 Respiratory Rate 27 H 20 H Respiratory Effort Respiratory Depth Respiratory Pattern Blood Pressure 83/38 L 93/48 L Blood Pressure Mean 53 63 Pulse Ox 100 96 Oxygen Delivery Method Nasal Cannula Nasal Cannula Oxygen Flow Rate (L/min) 4 4 Positive well nourished, well developed and obese General Appearance ED: well developed and pallor Nutritional Appearance: obese HEENT Reports dry mucous membranes HEENT Narrative: Normocephalic atraumatic No signs of depressed or basilar skull fracture Mouth ED: Yes dry mucous membranes Mouth: dry mucous membranes Eyes PERRL and EOMs intact bilaterally Eyes Narrative: No hyphema noted Positive subconjunctival pallor noted General Eye ED: Yes pale conjunctiva Neck supple Neck Narrative: No bony deformity or step-off of the cervical spine no midline tenderness to palpation Chest Wall palpation of chest normal Chest Narrative: No bony deformity or crepitance noted Resp normal respiratory effort and clear to auscultation bilaterally Resp Narrative: Breath sounds are diminished throughout with faint crackles noted in bilateral lower lobes. Tachypnea is noted but no nasal flaring or retractions or accessory muscle use Cardio regular rate and regular rhythm GI normal to inspection, nondistended, normoactive bowel sounds, non-tender, non-distended and no masses GI Narrative: No voluntary guarding or rigidity or pulsatile mass Auscultation: normoactive bowel sounds Palpation: soft Back/Spine Back/Spine Narrative: No bony deformity or step-off of the thoracic or lumbar spine no midline tenderness to palpation Extremity Extremity Narrative: Pelvis is stable and there is diffuse pain with palpation of the pelvis and both the right and left hip as well as inguinal regions. However the right leg is shortened and externally rotated compared to the left. Lower extremities are both neurovascularly intact. No obvious joint effusion. Active range of motion of the lower extremities is limited secondary to pain and weakness. Patient has full active range of motion of the upper extremities Neuro oriented x3, CN's II-XII intact bilaterally and no sensory deficits noted Neuro Narrative: Patient has GCS of 14. She is resting with eyes closed but will open and eyes and awake to voice and respond appropriately without focal neurologic deficit Sensorium / Orientation: orientation impaired Psych Psych Narrative: Patient has a flat affect Skin Skin Narrative: Patient has a stage II sacral decubitus ulcer which is chronic in nature along the left portion of the sacrum with concurrent surrounding erythema and warmth. No obvious crepitance palpated Overall skin is pale in color consistent with history of chronic anemia General Skin Exam: pallor; Negative for jaundice MDM MDM MDM Narrative Medical decision making narrative: Patient arrived to the ER hypotensive but afebrile and satting in the mid 90s on her normal nasal cannula oxygen. She reported she fell because she was weak and she denies striking her head any loss of conscious or history of bleeding disorder or blood thinner use. Patient is prescribed midodrine secondary to recurrent hypotension and as her fall happened earlier this morning she most likely did not receive her morning dose of the medication. Also chart review reveals her albumin level has been chronically low and therefore she may be volume depleted but as she is on dialysis I do not want to provide normal saline fluid boluses as there is risk for fluid overload instead she will be given albumin. As patient was recently in the hospital secondary to hypotension secondary to septic shock from her hemodialysis catheter with her hypotension this morning there is also concern that might be the reason for her weakness and hypotension. Therefore repeat blood work was obtained and as patient did fall and was complaining of pelvic pain potential for pubic rami fracture versus femoral neck fracture versus sacral fracture is a possibility. And with the sacral decubitus ulcer there is concern for sacral osteomyelitis versus cellulitis/necrotizing fasciitis. Patient's white blood cell count is elevated at 27.4 when she was discharged from the hospital it was normal at 7. She also has 17 bands reported indicating an infectious process. As x-rays revealed no obvious signs of acute infection or fracture I did elect to perform a CT scan of the abdomen pelvis because of concern for osteomyelitis or necrotizing fasciitis. Radiology did note soft tissue stranding with small area of gas concerning for potential abscess. As patient has been on daptomycin daily since her discharge I discussed the case with infectious disease. They recommend continuing daptomycin but adding meropenem for further gram-negative coverage therefore these medications were ordered. With receiving the albumin and her midodrine her blood pressure did improve. However at this time with physical exam and vitals and workup pointing towards recurrent sepsis the hospitalist was contacted for placement. Secondary to the CT scan showing changes concerning for potentially developing abscess in the sacral region the hospitalist does not feel comfortable keeping the patient unless there is surgical backup to perform potential procedures if needed. The case was discussed with general surgeon on-call Dr. King and he feels that based on the patient's complex medical care and the fact she just recently left the facility that she should be transferred to a higher level of care where they have more resources to address her complex medical issues. Therefore as general surgery is not on backup for this patient the hospitalist recommends transfer as well The case was discussed with Brett General accounting specialist Dr. Sewell. He agrees to accept the patient at this time. We will inform Brett Kee of any changes to the patient's status such as needed for pressors. At this time the patient states she is still full code History & Record Review Discussion w/independent historian: EMS personnel and Patient Lab Data Attestation: I reviewed the patient's lab results. Labs: Laboratory Results - last 24 hr 01/26/24 05:00 WBC 27.4 H RBC 3.44 L Hgb 9.0 L Hct 31.8 L MCV 92.4 MCH 26.2 L MCHC 28.3 L RDW Std Deviation 62.1 H RDW Coeff of Vlad 19.2 H Plt Count 91 L MPV 10.9 Neut % (Auto) Not Reportable Absolute Neuts (auto) 21.6 H Absolute Lymphs (auto) 2.46 Total Counted 100 Neutrophils % (Manual) 62 Band Neutrophils % 17 H Lymphocytes % (Manual) 5 L Monocytes % (Manual) 9 Eosinophils % (Manual) 1 Myelocytes % 5 H Promyelocytes % 1 H Differential Comment SCANNED Diff Path Review May foll Platelet Estimate ADEQUATE Stomatocytes 1+ Sodium 141 Potassium 3.8 Chloride 102 Carbon Dioxide 29.0 Anion Gap 10 BUN 32 H Creatinine 4.56 H Estim Creat Clear Calc 14.64 Est GFR (MDRD) Af Amer 12 L Est GFR (MDRD) Non-Af 10 L BUN/Creatinine Ratio 7.0 L Glucose 84 Lactic Acid 1.2 Calcium 8.4 L Total Bilirubin 1.00 Direct Bilirubin 0.61 H AST 20 ALT 12 L Alkaline Phosphatase 114 Total Protein 5.0 L Albumin 1.9 L Globulin 3.1 Procalcitonin 0.80 H Radiography Diagnostic Testing: Clinical Impression(s) from Imaging Studies Hip/Pelvis X-Ray 01/26/24 04:44 IMPRESSION: No evidence of fracture. Electronically Signed: Lydia Arthur MD at 6:07 EDT , Sacrum and Coccyx X-Ray 01/26/24 04:44 IMPRESSION: No definite fracture demonstrated. CT may be helpful for further evaluation if clinically indicated.. Electronically Signed: Lydia Arthur MD at 6:08 EDT , Abdomen/Pelvis CT 01/26/24 05:45 IMPRESSION: 1. Soft tissue changes in the perineum with relatively localized collection suspicious for abscess. Small foci of air within the stranding may be related to wound, recent procedure attempted drainage, versus infection. Findings are new compared to the recent CT. 2. Correlate for additional area of possible cellulitis left paravertebral at the T10-T11 level. 3. Inguinal and pelvic adenopathy likely reactive. 4. Small left pleural effusion and patchy airspace disease in the lower lungs greater on the left is increased, possible pneumonia. Electronically Signed: Lydia Arthur MD at 6:48 EDT , Chest X-Ray 01/26/24 05:45 IMPRESSION: Bilateral infiltrates slightly increased. Pneumonia versus edema. Electronically Signed: Lydia Arthur MD at 6:33 EDT , Critical Care Time Critical Care Time: Yes Critical care time (excluding procedures): Discussing w/Patient &/or Family/Chief Mechanical Engineer, Discussing w/Consultants, Arranging Admission or Transfer and - (Critical care time of 37 minutes) Discharge Plan Triage Chief Complaint: Fall Other Complaint: Hypotension ED Provider: Antolin Caputo Dx/Rx/DC Orders Clinical Impression: Sepsis, End-stage renal disease needing dialysis, Insulin dependent diabetes mellitus, Decubitus ulcer of sacral area, Chronic anemia, Thrombocytopenia, Cellulitis of sacral region Prescriptions: No Action levothyroxine 150 mcg tablet 150 mcg PO DAILY@0600 atorvastatin 10 mg Tablet 10 mg PO QHS fenofibrate nanocrystallized [Tricor] 48 mg Tablet 48 mg PO DAILY ropinirole 4 mg tablet 4 mg PO QHS Rx Instructions: administer 1-3 hours before bedtime (DME) pen needle, diabetic [Easy Touch] 31 gauge x 1/4 needle MISCELLANEOUS sucralfate [Carafate] 1 gram tablet 1 g PO BID Qty: 60 1RF pantoprazole 40 mg tablet,delayed release (DR/EC) 40 mg PO BID Qty: 60 2RF difluprednate 0.05 % drops 1 drp ophthalmic (eye) DAILY Rx Instructions: BOTH EYES- HAD SHOTS IN HER EYES W BLEEDING BEHIND THEM nystatin [Nystop] 100,000 unit/gram powder 1 applic TOPICAL BID Rx Instructions: APPLY TO GROIN AND UNDER BREASTS midodrine 10 mg tablet 30 mg PO MOWEFR Rx Instructions: TAKE 3 TABLETS ONCE DAILY ON FRIDAY, FRIDAY, AND FRIDAY BEFORE DIALYSIS sennosides-docusate sodium [2-in-1 Laxative] 8.6-50 mg tablet 2 tab-cap PO DAILY PRN (Reason: constipation) zinc sulfate 50 mg zinc (220 mg) tablet 50 mg PO DAILY (DME) FreeStyle Bandar 2 Sensor Kit MISCELLANEOUS gabapentin 300 mg Capsule 300 mg PO QHS Qty: 0 0RF B complex-vitamin C-folic acid 400 mcg tablet extended release 0.8 tab PO DAILY mirtazapine 15 mg tablet 15 mg PO QHS midodrine 5 mg tablet 10 mg PO TIDCM daptomycin 500 mg recon soln 800 mg IV Q24H 10 Days Rx Instructions: Stop date 01/26/24. Dose with dialysis sessions: 800mg on Mondays, 800mg on Wednesdays, and 1200mg on Fridays. Dx: VRE bacteremia. Weekly bmp, cbc, CK, and LFT. Fax to [phone]. insulin lispro [Humalog KwikPen Insulin] 100 unit/mL Insulin Pen See Protocol subcut TIDAC Qty: 0 0RF Protocol: 3. Sliding Scale Insulin Med Dosing Condition: 150-189 mg/dl = 1 unit Condition: 190-229 mg/dl = 2 units Condition: 230-269 mg/dl = 3 units Condition: 270-309 mg/dl = 4 units Condition: 310-349 mg/dl = 5 units Condition: 350-399 mg/dl = 6 units Condition: 400-449 mg/dl = 7 units Condition: Greater than 449 call physician Protocol Text: - Use for Total Daily Dose of Insulin 37-55 units - Obsese, infected, or steroid patients MEDIUM DOSING ALGORITHIM Primary Care Provider: Cortez Smith Referrals: Cortez Smith DO [Primary Care Provider] - Print Language: Citizen Of [place] Disposition Disposition: Acute Care Hospital Discharge Location: [facility]
[2024-01-26 05:08] LABS: Hematocrit 31.8 % (37-47); Mean Corp Hgb Conc 28.3 g/dL (32-36); Mean Corpuscular Hgb 26.2 pg (27.0-32.0); Mean Corpuscular Volume 92.4 fL (81-99); Mean Platelet Vol. 10.9 fl (6.2-12.0); POSITIVE COUNT YES; POSITIVE DIFFERENTIAL YES; POSITIVE MORPHOLOGY YES; Platelet Count 91 K/mm3 (150-450); RBC Distribution Width CV 19.2 % (11.6-14.6); RBC Distribution Width SD 62.1 fl (35.1-43.9); Red Blood Count 3.44 M/mm3 (4.2-5.4); White Blood Count 27.4 K/mm3 (4.4-11.0)
[2024-01-26 05:23] LABS: AST(SGOT) 20 U/L (15-37); Alanine Aminotransfer ALT/SGPT 12 U/L (13-56); Albumin, Serum 1.9 g/dL (3.2-5.0); Alkaline Phosphatase 114 U/L (45-117); Anion Gap 10 (5-15); BUN 32 mg/dL (7-18); Bilirubin, Direct 0.61 mg/dL (0.00-0.30); Calcium,Total 8.4 mg/dL (8.5-10.1); Chloride 102 mmol/L (98-107); Creatinine, Serum 4.56 mg/dL (0.55-1.02); EST Glomerular Filtration Rate 10 mL/min (>60); Est Glom Filt Rate - Afr Amer 12 mL/min (>60); Estimated Creatinine Clearance 14.64 ml/min; Globulin 3.1 g/dL (2.2-4.2); Glucose 84 mg/dL (74-106); Potassium 3.8 mmol/L (3.5-5.1); Sodium Level 141 mmol/L (136-145)
[2024-01-26 05:28] LABS: Differential Indicated MANUAL DIFF
[2024-01-26] MEDS: Midodrine HCl 5 MG Tablet 10 MG PO ×3 (05:29→15:53)
[2024-01-26] MEDS: Albumin Human 25% (100 mL) 25 GM/100 ML BAG IV (05:29)
--- NOTE | 2024-01-26 05:45 | RAD_ITS ---
INDICATION: cough EXAMINATION/TECHNIQUE: X-RAY - XR Chest 1 View AP portable. 6:07 AM COMPARISON: 01/17/2024 FINDINGS: LINES/DEVICES: Central venous catheter unchanged position. LUNGS: Patchy infiltrates bilaterally, greater on the left, appears slightly increased compared to the prior. No consolidation. No pneumothorax. MEDIASTINUM: Unremarkable. CARDIAC SILHOUETTE: Not enlarged. BONES AND SOFT TISSUES: No acute abnormalities. RAD/Chest 1 View (Portable) IMPRESSION: Bilateral infiltrates slightly increased. Pneumonia versus edema. Electronically Signed: Lydia Arthur MD at 6:33 EDT ,
--- NOTE | 2024-01-26 05:45 | CT_ITS ---
EXAM: CT Abdomen And Pelvis W/O Contrast Injection HISTORY: ? sacral osteomyelitis versus necrotizing fasciitis TECHNIQUE: Routine protocol CT abdomen and pelvis. IV Contrast: None.. Oral contrast: None. RADIATION DOSAGE (If Supplied By Facility): CTDIvol = ( 19.42 ) mGy, DLP = ( 1497.79 ) mGycm Individualized dose optimization techniques were used for this CT. COMPARISON: CT abdomen and pelvis 01/07/2024. LIMITATIONS: None. FINDINGS: LOWER CHEST: Small left pleural effusion increased compared to prior. Hazy opacities in both lung bases greater on the left, increased. Coronary artery calcifications are noted. LIVER: Grossly unremarkable. GALLBLADDER AND BILIARY TREE: The gallbladder is surgically absent. PANCREAS: Grossly unremarkable. SPLEEN: Mildly enlarged. Small calcification is previous granulomatous process. ADRENAL GLANDS: Grossly unremarkable. KIDNEYS AND URETERS: No calculi demonstrated. No hydronephrosis. PERITONEUM: No free air. No free fluid. BOWEL: No bowel obstruction. APPENDIX: Visualized and unremarkable. No evidence of acute appendicitis. VESSELS: Abdominal aorta is normal caliber. Extensive arterial calcifications. REPRODUCTIVE ORGANS: Calcifications centrally in the uterus unchanged. URINARY BLADDER: Grossly unremarkable. ABDOMINAL WALL: Relatively localized low attenuation collection in the perineum on the left perianal, measures approximately 6 x 2 cm axial by 3.5 cm craniocaudal. Adjacent stranding subcutaneous with small foci of air inferior to the collection fairly localized, with stranding extending to the midline gluteal fold and overlying skin thickening. This is new compared to the prior study. No other distant air in the soft tissues. There is also a focus of stranding subcutaneous with skin thickening paravertebral just to the left of midline lower thoracic/upper abdominal level T10-T11, increased compared to the prior. No definite localized collection or air in this region. Enlarged inguinal lymph nodes bilaterally, and along the pelvic sidewall. BONES: No acute abnormalities. No definite bony changes of the coccyx to suggest osteomyelitis. Degenerative changes of the lumbar spine. CT/Abdomen/Pelvis without Cont IMPRESSION: 1. Soft tissue changes in the perineum with relatively localized collection suspicious for abscess. Small foci of air within the stranding may be related to wound, recent procedure attempted drainage, versus infection. Findings are new compared to the recent CT. 2. Correlate for additional area of possible cellulitis left paravertebral at the T10-T11 level. 3. Inguinal and pelvic adenopathy likely reactive. 4. Small left pleural effusion and patchy airspace disease in the lower lungs greater on the left is increased, possible pneumonia. Electronically Signed: Lydia Arthur MD at 6:48 EDT ,
[2024-01-26 05:58] LABS: Lactic Acid 1.2 mmol/L (0.4-1.9)
[2024-01-26 06:27] LABS: Neutrophil-Band 17 % (0-5); Neutrophil-Segmented 62 % (47-70); Total Cells Counted 100 (MANUAL DIFF)
[2024-01-26 06:28] LABS: Absolute Neutrophil Count 21.6 X10^3/uL (2.0-7.7); Eosinophil 1 % (0-5); Lymphocyte 5 % (19-41); Monocyte 9 % (0-10); Myelocyte 5 % (0-0); Promyelocyte 1 % (0-0)
[2024-01-26 06:29] LABS: Absolute Lymphocyte Count 2.46 X10^3/uL (0.83-4.51); Platelet Estimate ADEQUATE (ADEQ); Stomatocyte 1+
[2024-01-26 06:30] LABS: Differential Comment SCANNED
[2024-01-26] MEDS: Meropenem 500 MG in 0.9% Normal Saline (50mL MB+) 50 ML 100 MG IV (07:31)
[2024-01-26 07:33] LABS: Mucous, Urine 0 SEEN /hpf (<or=2+)
[2024-01-26] MEDS: DAPTOMYCIN IV (07:53)
[2024-01-26] MEDS: NORMAL SALINE 0.9% IV (07:53)
[2024-01-26] MEDS: 0.9% Normal Saline (500mL Bag) 500 ML 999 ML IV (08:08)
[2024-01-26 08:41] LABS: Color, Urine Yellow (Yellow); Glucose, Dipstick Normal (Normal); Ketone-Dipstick 15 mg/dl (Negative); Leukocyte Esterase-Dipstick 500 /ul (Negative); Nitrite-Dipstick Positive (Negative); Occult Blood-Urine 10 /ul (Negative); Protein-Dipstick 100 mg/dl (Negative); Urine Clarity Sl. Cloudy (Clear); Urine Urobilinogen 1 mg/dl (Normal)
[2024-01-26 08:42] LABS: Urine Bilirubin Dipstick 6 mg/dL (Negative)
[2024-01-26 08:50] LABS: Bacteria 2+ /hpf (None Seen); Red Blood Cells-Urine 0-5 SEEN /hpf (0-5); Squamous Epithelial Cells - UA 5-10 SEEN /hpf (5-10); Transitional Epithelial - Ur 0-5 SEEN /hpf (0-5); White Blood Cells 25-50 SEEN /hpf (0-5)
[2024-01-26] MEDS: Norepinephrine 8 MG in 0.9% Normal Saline (250mL Bag) 242 ML 9.4 MG CONT INF (09:38)
--- NOTE | 2024-01-26 10:02 | ED.RN ---
CALLED [facility]--STILL ON WAITLIST, NO DISCHARGES OR TRANSFERS SCHEDULED
--- NOTE | 2024-01-26 10:20 | PCM.OP.PRO ---
Procedure Report Date of Procedure: 01/26/24 Assessment & Plan Assessment/Plan (1) Cellulitis of sacral region: Procedures Radiology Radiology Access Procedures: PICC Procedure Time Out Time Out Informed consent given: Yes Consent signed: Yes Time out checklist: patient, procedure, site marked/identified, positioning of patient, supplies available and allergies confirmed Time out staff in room: Yes Time out verified: Yes Time out date: 01/26/24 Time out time: 08:40 PICC Line Consent Screening tool completed:: Yes Consent obtained:: Yes Consent given by (patient or responsible alliance party):: patient Line successful (if no, document why in comments):: Yes Insertion Reason for Insertion: vesicant Date of Insertion: 01/26/24 Ok to use: Yes Type of PICC inserted: Dual Power PICC PICC Lot #: [id number] PICC Reference #: [id number] Microintroducer Used: Yes (in kit) Ultrasound/Equipment Used: Probe Cover Kit Trimmed Length (cm): 44 Insertion Length (cm): 43 Exposed Length (cm): 1 Tip Placement: Caval Atrial Junction Placement Confirmation: 3CG Insertion Vein: Right Basilic Insertion Attempts: 1 Local Anesthesia Used: Lidocaine 1% (in kit) Dressing Applied: Statlock and Tegaderm CHG Arm Measurement above site (in cm): 36 Patient Tolerated Procedure: Well Threading Difficulties: No Comments Comment: Patient identity was verified with two patient identifiers. Informed consent was obtained and time-out was completed. Hands were sanitized. The patient was positioned supine with right arm at 90 degrees. The patient's upper arm vasculature was assessed using ultrasound. Patency of the right basilic vein was confirmed and the vein was externally marked. An external measurement was obtained of 44 cm. External leads were applied to the patient's right upper chest and laterally and inferior of the umbilicus on the mid axillary line. Cap, mask, and prep gloves were donned. The underdrape was placed under the patient's arm. The site was prepped with chlorhexidine, and tourniquet was loosely applied. Prep gloves were discarded, and hands were sanitized. The sterile kit was opened with additional supplies dropped in. Sterile gown and gloves were donned, and the patient was draped. The sterile kit was assembled with needle, introducer, needless connectors, and each catheter lumen flushed with sterile normal saline. The marked site of insertion was anesthetized with 1% lidocaine from the kit. Patient tolerated well. The right basilic vein was then accessed using ultrasound guidance and guidewire was inserted to safety claudio. The tourniquet was released. The access needle was removed while securing the guidewire in place. The site was again anesthetized with 1% lidocaine, prior to insertion of introducer sheath and dilator. Patient tolerated the insertion well. The catheter was trimmed to a length of 44 cm. Using 3C guidance, the catheter was then inserted through the introducer sheath, slowly. There was no resistance on insertion. The catheter followed the expected course of the vessel using 3CG tracking. The introducer sheath was retracted and peeled away, incrementally, while keeping the catheter secured. Maximal p-wave, without deflection, confirming placement in the cavoatrial junction, was obtained at an insertion length of 43 cm, leaving 1 cm external. The stylet was removed. A flushed needleless connector was attached to the lumen. Aspiration of the lumen was performed to remove any air and confirm blood return. Blood return was verified and each lumen was flushed with 10 ml of sterile normal saline in a pulsatile fashion. The each lumen was clamped with the last pulsed flush. Total sterile flushes used for the insertion was 6 10 ml syringes, 2 from the kit. Finally, the insertion site was cleaned with chlorhexidine, and the catheter was secured using a StatLock. The site was covered with a Tegaderm CHG Dressing and disinfecting caps were applied. Baseline arm circumference was obtained at the insertion site and measured 36 cm. The patient was provided with a patient education handout on PICC line care of infection prevention, heavy lifting restriction, maintaining mobility, and watching for any signs of infection. The primary nurse is aware that the PICC line is ready for use.
--- NOTE | 2024-01-26 11:23 | ED.RN ---
Pt sepsis alert at time of taking over care, fluid resuscitation indicated but pt already on levophed with picc placed.
--- NOTE | 2024-01-26 11:27 | CON.PCM.CC_ITS ---
Assessment & Plan Assessment/Plan (1) Sepsis: (2) Cellulitis of sacral region: (3) Decubitus ulcer of sacral area: (4) End-stage renal disease needing dialysis: PLAN: Plan RECOMMENDATIONS: 1. Continue antimicrobials per ID recommendations. 2. Continue vasopressor support and wean as tolerated. 3. Nephrology consultation for hemodialysis needs. 4. Awaiting transfer to [facility]. IMPRESSIONS: 1. Septic shock The patient presented to the hospital with generalized weakness and fall, with resultant fluid refractory hypotension, which required vasopressor initiation. Subsequent imaging demonstrated findings concerning for a possible abscess involving the perineum. The patient has a known history of frequent hospitalizations, the last occurring just over 1 week ago, after she was admitted with septic shock secondary to VRE UTI and bacteremia. Accordingly, the patient has been initiated on broad-spectrum antimicrobials, per ID recommendations. Recommend continuing Levophed to maintain hemodynamic stability. The patient is awaiting transfer to a tertiary care facility. 2. End-stage renal disease on hemodialysis Nephrology has been consulted to assist with hemodialysis needs. 3. History of anemia/thrombocytopenia/obesity/hypothyroidism/diabetes mellitus/chronic kidney disease/GERD/obstructive sleep apnea Complicates care, management, recovery and prognosis. Continue supportive measures as noted above. The patient is to remain n.p.o. for now. TIME: 33 minutes of critical care time, independent of procedures, was spent addressing the patient's septic shock, end-stage renal disease on hemodialysis, review of all data and collaboration with the care team. HPI Consult Data Date of Consult: 01/27/24 HPI Narrative Reason for Consultation: Septic shock HPI Narrative: The patient is a 63-year-old female, with a history as outlined below, who presented to the emergency department on the morning of January 25 with generalized weakness and fall. The patient is well-known due to frequent, prior hospitalizations, most recently as December 2023 when she was admitted with septic shock secondary to VRE UTI and bacteremia. Patient was ultimately discharged on IV daptomycin. Her medical history is also significant for end-stage renal disease on hemodialysis, anemia, hypothyroidism, diabetes mellitus, chronic kidney disease and obstructive sleep apnea. This morning, the patient reported pain, most pronounced in her buttock. On presentation to the emergency department, the patient was documented to be afebrile, but was hypotensive with a presenting blood pressure of 70/44 mmHg. Laboratory evaluation revealed a white blood cell count of 27,000. Hemoglobin was stable at 9.0 g/dL. Platelet count was low at 91,000. Chemistry profile was notable for a creatinine of 4.56. Lactate was normal at 1.2. Urinalysis was positive for nitrates, leukocyte esterase and 2+ urine bacteria. CT abdomen/pelvis demonstrated soft tissue changes in the perineum with a localized collection suspicious for abscess. There was an additional area of possible cellulitis involving the left paravertebral T10/T11 level. Given the aforementioned findings, the case was discussed with infectious diseases and general surgery. ID recommended continuing daptomycin and adding meropenem. General surgery felt that the patient would be best served by being transferred to a tertiary care facility given the complex nature of her medical history. The case was discussed with Brett Kee, who has accepted the patient, pending bed availability. Ultimately, the patient had a PICC line placed in the emergency department and was initiated on Levophed to maintain hemodynamic stability. [facility] Medical History History of diabetes mellitus History of renal dialysis Hx of renal failure ESRF (end stage renal failure) Thrombocytopenia Hypoxia Morbid (severe) obesity due to excess calories Sepsis Acute on chronic anemia CKD (chronic kidney disease) Hypoxemia CHF (congestive heart failure) Respiratory failure with hypoxia and hypercapnia Diabetes Current use of insulin Restless legs COPD (chronic obstructive pulmonary disease) History of stress test Irregular heartbeat MSSA bacteremia Congestive heart failure Gastroparesis Anxiety CPAP (continuous positive airway pressure) dependence Sleep apnea On home oxygen therapy Chronic kidney disease Anemia Chest pain (HFpEF) heart failure with preserved ejection fraction Pleural effusion, left Pulmonary edema Chronic kidney disease Malaise History of fever GASTON (acute kidney injury) Retinal hemorrhage Lower extremity edema History of renal insufficiency History of diabetes mellitus Diabetes mellitus with diabetic polyneuropathy SACHIN (obstructive sleep apnea) Chronic acquired lymphedema Chronic anemia CKD (chronic kidney disease), stage III HLD (hyperlipidemia) HTN (hypertension) Morbid obesity Diabetes mellitus, type 2 Anxiety and depression Hypoxia Hypothyroidism Home Medications ?Medication ?Instructions ?Recorded ?Last Taken ?Type atorvastatin 10 mg tablet 10 mg PO QHS cholesterol 09/24/22 04/13/23 History fenofibrate nanocrystallized 48 mg 48 mg PO DAILY cholesterol 09/24/22 04/13/23 History tablet (Tricor) levothyroxine 150 mcg tablet 150 mcg PO DAILY@0600 THYROID 03/05/23 Unknown History ropinirole 4 mg tablet 4 mg PO QHS restless legs 03/05/23 05/01/23 History pen needle, diabetic 31 gauge x 04/14/23 Unknown History 1/4 (Easy Touch) pantoprazole 40 mg tablet,delayed 40 mg PO BID heartburn #60 tabs 05/08/23 Unknown Rx release sucralfate 1 gram tablet (Carafate) 1 g PO BID heartburn #60 tabs 05/08/23 Unknown Rx difluprednate 0.05 % eye drops 1 drp ophthalmic (eye) DAILY 08/26/23 Unknown History bleeding behind eyes nystatin 100,000 unit/gram topical 1 applic topical BID yeast 08/26/23 Unknown History powder (Nystop) flash glucose sensor (FreeStyle 09/16/23 Unknown History Bandar 2 Sensor kit) gabapentin 300 mg capsule 300 mg PO QHS #0 caps 09/25/23 Unknown Rx midodrine 10 mg tablet 30 mg PO MOWEFR 12/31/23 Unknown History sennosides 8.6 mg-docusate sodium 2 tab-cap PO DAILY PRN constipation 12/31/23 Unknown History 50 mg tablet (2-in-1 Laxative) zinc sulfate 50 mg zinc (220 mg) 50 mg PO DAILY 12/31/23 Unknown History tablet B complex-vitamin C-folic acid ER 0.8 tab PO DAILY 01/07/24 Unknown History 400 mcg tablet,extended release midodrine 5 mg tablet 10 mg PO TIDCM 01/07/24 Unknown History mirtazapine 15 mg tablet 15 mg PO QHS 01/07/24 Unknown History daptomycin 500 mg intravenous 800 mg IV Q24H 10 days 01/16/24 Unknown Rx solution insulin lispro 100 unit/mL See Protocol subcut TIDAC #0 mL 01/17/24 Unknown Rx subcutaneous pen (Humalog KwikPen (U-100) Insulin) Allergy/AdvReac Type Severity Reaction Status Date / Time No Known Allergies Allergy Verified 09/16/23 08:52 Family History Mother Heart disease Hypertension Diabetes Father Prostate cancer Surgical History H/O cataract removal with insertion of prosthetic lens History of surgery on lower extremity History of cholecystectomy Social History housing: assisted Smoking Status: Never smoker alcohol intake: never substance use type: does not use ROS ROS Narrative 10 systems were reviewed with pertinent positives as noted in the HPI above. Physical Exam Const Constitutional Narrative: Somnolent, but able to answer simple questions. Ill in appearance. HEENT normocephalic and head/scalp atraumatic Eyes PERRL and EOMs intact bilaterally Neck supple General: trachea midline Chest inspection of chest normal Resp normal respiratory effort Effort and Inspection: tachypneic Auscultation: Negative for rales, rhonchi or wheezes Cardio regular rate and regular rhythm GI normal to inspection, nondistended, normoactive bowel sounds Extremity no clubbing, cyanosis or edema Skin Skin Narrative: Sacral decubitus ulcer present Neuro CN's II-XII intact bilaterally and no focal motor deficits Psych Mood & Affect: flat affect Lab / Micro Data 01/27/24 04:40 01/27/24 04:40 Labs: Laboratory Results - last 24 hr 01/26/24 05:00: WBC 27.4 H, RBC 3.44 L, Hgb 9.0 L, Hct 31.8 L, MCV 92.4, MCH 26.2 L, MCHC 28.3 L, RDW Std Deviation 62.1 H, RDW Coeff of Vlad 19.2 H, Plt Count 91 L, MPV 10.9, Neut % (Auto) Not Reportable, Absolute Neuts (auto) 21.6 H , Absolute Lymphs (auto) 2.46, Total Counted 100, Neutrophils % (Manual) 62, B and Neutrophils % 17 H, Lymphocytes % (Manual) 5 L, Monocytes % (Manual) 9, Eosinophils % (Manual) 1, Myelocytes % 5 H, Promyelocytes % 1 H, Differential Comment SCANNED, Diff Path Review May foll, Platelet Estimate ADEQUATE, Stomatocytes 1+, Sodium 141, Potassium 3.8, Chloride 102, Carbon Dioxide 29.0, Anion Gap 10, BUN 32 H, Creatinine 4.56 H, Estim Creat Clear Calc 14.64, Est GFR (MDRD) Af Amer 12 L, Est GFR (MDRD) Non-Af 10 L, BUN/Creatinine Ratio 7.0 L, Glucose 84, Lactic Acid 1.2, Calcium 8.4 L, Total Bilirubin 1.00, Direct Bilirubin 0.61 H, AST 20, ALT 12 L, Alkaline Phosphatase 114, Total Protein 5.0 L, Albumin 1.9 L, Globulin 3.1, Procalcitonin 0.80 H 01/26/24 07:27: Urine Color Yellow, Urine Clarity Sl. Cloudy, Urine pH 5.0, Ur Specific Woodruff 1.020, Urine Protein 100 H, Urine Glucose (UA) Normal, Urine Ketones 15 H, Urine Occult Blood 10 H, Urine Nitrite Positive H, Urine Bilirubin 6 H, Urine Urobilinogen 1 H, Ur Leukocyte Esterase 500 H, Urine RBC 0-5 SEEN, Urine WBC 25-50 SEEN, Ur Squamous Epith Cells 5-10 SEEN, Ur Transition Epith Cell 0-5 SEEN, Urine Bacteria 2+, Urine Mucus 0 SEEN Imaging Radiology Impression Hip/Pelvis X-Ray 01/26/24 04:44 IMPRESSION: No evidence of fracture. Electronically Signed: Lydia Arthur MD at 6:07 EDT , Sacrum and Coccyx X-Ray 01/26/24 04:44 IMPRESSION: No definite fracture demonstrated. CT may be helpful for further evaluation if clinically indicated.. Electronically Signed: Lydia Arthur MD at 6:08 EDT , Abdomen/Pelvis CT 01/26/24 05:45 IMPRESSION: 1. Soft tissue changes in the perineum with relatively localized collection suspicious for abscess. Small foci of air within the stranding may be related to wound, recent procedure attempted drainage, versus infection. Findings are new compared to the recent CT. 2. Correlate for additional area of possible cellulitis left paravertebral at the T10-T11 level. 3. Inguinal and pelvic adenopathy likely reactive. 4. Small left pleural effusion and patchy airspace disease in the lower lungs greater on the left is increased, possible pneumonia. Electronically Signed: Lydia Arthur MD at 6:48 EDT , Chest X-Ray 01/26/24 05:45 IMPRESSION: Bilateral infiltrates slightly increased. Pneumonia versus edema. Electronically Signed: Lydia Arthur MD at 6:33 EDT , Charges/Coding Procedures Hospitalists Procedures: [id number] Critical Care 1st Hr
--- NOTE | 2024-01-26 12:27 | PCM.CONS.R ---
Documented by User: KELVIN Gomez 01/26/24 12:39 Assessment & Plan Assessment/Plan (1) End-stage renal disease needing dialysis: (2) Cellulitis of sacral region: (3) Sepsis: (4) Anemia of chronic disease: PLAN: Plan This is an unfortunate 63-year-old female with past medical history significant for ESRD, has been on hemodialysis since August 2023, admitted to the hospital for sepsis, CT demonstrating localized collection suspicious for abscess, possible cellulitis. Started on IV antibiotics. Patient admitted to ICU pending bed availability at [facility]. Blood pressure low, on IV pressor support. Nephrology consulted as patient undergoes hemodialysis 3 times weekly. She last dialyzed Friday. We will continue to provide dialysis support for Ms. Mckoy. There is no emergent need for hemodialysis today, likely plan hemodialysis tomorrow with minimal fluid removal if blood pressures are still low. Patient's volume status appears to be near her EDW. To note patient does have chronic hypotension and is on midodrine. History of anemia, will follow hgb trends. Further orders forthcoming as hospitalization evolves, thank you for letting us participate in the care of Ms. Mckoy. HPI Consult Data Date of Consult: 01/26/24 HPI Narrative HPI Narrative: TOBIN MCKOY, is a 63 F with past medical history significant for ESRD (began hemodialysis August 2023), diabetes mellitus type 2, heart failure preserved EF, COPD, SACHIN who was brought to the emergency room from [facility] for generalized weakness, fall, hypotension. Workup in the emergency room included CT of abdomen pelvis which demonstrated soft tissue changes in perineum, localized collection suspicious for abscess and cellulitis. General surgery consulted, felt patient best served by being transferred to tertiary center. Patient was admitted to ICU pending bed availability. Nephrology consulted as patient has history of ESRD requiring hemodialysis. Patient currently dialyzes Friday, last dialyzed Friday. Patient is alert to name but slow to respond. [facility] Medical History History of diabetes mellitus History of renal dialysis Hx of renal failure ESRF (end stage renal failure) Thrombocytopenia Hypoxia Morbid (severe) obesity due to excess calories Sepsis Acute on chronic anemia CKD (chronic kidney disease) Hypoxemia CHF (congestive heart failure) Respiratory failure with hypoxia and hypercapnia Diabetes Current use of insulin Restless legs COPD (chronic obstructive pulmonary disease) History of stress test Irregular heartbeat MSSA bacteremia Congestive heart failure Gastroparesis Anxiety CPAP (continuous positive airway pressure) dependence Sleep apnea On home oxygen therapy Chronic kidney disease Anemia Chest pain (HFpEF) heart failure with preserved ejection fraction Pleural effusion, left Pulmonary edema Chronic kidney disease Malaise History of fever GASTON (acute kidney injury) Retinal hemorrhage Lower extremity edema History of renal insufficiency History of diabetes mellitus Diabetes mellitus with diabetic polyneuropathy SACHIN (obstructive sleep apnea) Chronic acquired lymphedema Chronic anemia CKD (chronic kidney disease), stage III HLD (hyperlipidemia) HTN (hypertension) Morbid obesity Diabetes mellitus, type 2 Anxiety and depression Hypoxia Hypothyroidism Home Medications ?Medication ?Instructions ?Recorded ?Last Taken ?Type atorvastatin 10 mg tablet 10 mg PO QHS cholesterol 09/24/22 04/13/23 History fenofibrate nanocrystallized 48 mg 48 mg PO DAILY cholesterol 09/24/22 04/13/23 History tablet (Tricor) levothyroxine 150 mcg tablet 150 mcg PO DAILY@0600 THYROID 03/05/23 Unknown History ropinirole 4 mg tablet 4 mg PO QHS restless legs 03/05/23 05/01/23 History pen needle, diabetic 31 gauge x 04/14/23 Unknown History / (Easy Touch) pantoprazole 40 mg tablet,delayed 40 mg PO BID heartburn #60 tabs 05/08/23 Unknown Rx release sucralfate 1 gram tablet (Carafate) 1 g PO BID heartburn #60 tabs 05/08/23 Unknown Rx difluprednate 0.05 % eye drops 1 drp ophthalmic (eye) DAILY 08/26/23 Unknown History bleeding behind eyes nystatin 100,000 unit/gram topical 1 applic topical BID yeast 08/26/23 Unknown History powder (Nystop) flash glucose sensor (FreeStyle 09/16/23 Unknown History Bandar 2 Sensor kit) gabapentin 300 mg capsule 300 mg PO QHS #0 caps 09/25/23 Unknown Rx midodrine 10 mg tablet 30 mg PO MOWEFR 12/31/23 Unknown History sennosides 8.6 mg-docusate sodium 2 tab-cap PO DAILY PRN constipation 12/31/23 Unknown History 50 mg tablet (2-in-1 Laxative) zinc sulfate 50 mg zinc (220 mg) 50 mg PO DAILY 12/31/23 Unknown History tablet B complex-vitamin C-folic acid ER 0.8 tab PO DAILY 01/07/24 Unknown History 400 mcg tablet,extended release midodrine 5 mg tablet 10 mg PO TIDCM 01/07/24 Unknown History mirtazapine 15 mg tablet 15 mg PO QHS 01/07/24 Unknown History daptomycin 500 mg intravenous 800 mg IV Q24H 10 days 01/16/24 Unknown Rx solution insulin lispro 100 unit/mL See Protocol subcut TIDAC #0 mL 01/17/24 Unknown Rx subcutaneous pen (Humalog KwikPen (U-100) Insulin) Allergy/AdvReac Type Severity Reaction Status Date / Time No Known Allergies Allergy Verified 09/16/23 08:52 Family History Mother Heart disease Hypertension Diabetes Father Prostate cancer Surgical History H/O cataract removal with insertion of prosthetic lens History of surgery on lower extremity History of cholecystectomy Social History housing: [facility] Smoking Status: Never smoker alcohol intake: never substance use type: does not use ROS ROS Narrative Limited due to patient slow to respond Physical Exam Narrative Alert to name, slow to respond. No apparent distress S1, S2, RRR Lung sounds clear anteriorly. No rales or rhonchi Abdomen soft, nontender Nonpitting edema bilateral lower legs Tunneled hemodialysis catheter left chest dressing clean, dry and intact Lab / Micro Data 01/26/24 05:00 01/26/24 05:00 Labs: Laboratory Results - last 24 hr 01/26/24 05:00: WBC 27.4 H, RBC 3.44 L, Hgb 9.0 L, Hct 31.8 L, MCV 92.4, MCH 26.2 L, MCHC 28.3 L, RDW Std Deviation 62.1 H, RDW Coeff of Vlad 19.2 H, Plt Count 91 L, MPV 10.9, Neut % (Auto) Not Reportable, Absolute Neuts (auto) 21.6 H, Absolute Lymphs (auto) 2.46, Total Counted 100, Neutrophils % (Manual) 62, Band Neutrophils % 17 H, Lymphocytes % (Manual) 5 L, Monocytes % (Manual) 9, Eosinophils % (Manual) 1, Myelocytes % 5 H, Promyelocytes % 1 H, Differential Comment SCANNED, Diff Path Review May foll, Platelet Estimate ADEQUATE, Stomatocytes 1+, Sodium 141, Potassium 3.8, Chloride 102, Carbon Dioxide 29.0, Anion Gap 10, BUN 32 H, Creatinine 4.56 H, Estim Creat Clear Calc 14.64, Est GFR (MDRD) Af Amer 12 L, Est GFR (MDRD) Non-Af 10 L, BUN/Creatinine Ratio 7.0 L, Glucose 84, Lactic Acid 1.2, Calcium 8.4 L, Total Bilirubin 1.00, Direct Bilirubin 0.61 H, AST 20, ALT 12 L, Alkaline Phosphatase 114, Total Protein 5.0 L, Albumin 1.9 L, Globulin 3.1, Procalcitonin 0.80 H 01/26/24 07:27: Urine Color Yellow, Urine Clarity Sl. Cloudy, Urine pH 5.0, Ur Specific [place] 1.020, Urine Protein 100 H, Urine Glucose (UA) Normal, Urine Ketones 15 H, Urine Occult Blood 10 H, Urine Nitrite Positive H, Urine Bilirubin 6 H, Urine Urobilinogen 1 H, Ur Leukocyte Esterase 500 H, Urine RBC 0-5 SEEN, Urine WBC 25-50 SEEN, Ur Squamous Epith Cells 5-10 SEEN, Ur Transition Epith Cell 0-5 SEEN, Urine Bacteria 2+, Urine Mucus 0 SEEN Imaging Radiology Impression Hip/Pelvis X-Ray 01/26/24 04:44 IMPRESSION: No evidence of fracture. Electronically Signed: Lydia Arthur MD at 6:07 EDT Reading Location ID and State: [facility] [place] [facility] [place] MD Tel , Service support , Sacrum and Coccyx X-Ray 01/26/24 04:44 IMPRESSION: No definite fracture demonstrated. CT may be helpful for further evaluation if clinically indicated.. Electronically Signed: Lydia Arthur MD at 6:08 EDT , Abdomen/Pelvis CT 01/26/24 05:45 IMPRESSION: 1. Soft tissue changes in the perineum with relatively localized collection suspicious for abscess. Small foci of air within the stranding may be related to wound, recent procedure attempted drainage, versus infection. Findings are new compared to the recent CT. 2. Correlate for additional area of possible cellulitis left paravertebral at the T10-T11 level. 3. Inguinal and pelvic adenopathy likely reactive. 4. Small left pleural effusion and patchy airspace disease in the lower lungs greater on the left is increased, possible pneumonia. Electronically Signed: Lydia Arthur MD at 6:48 EDT , Chest X-Ray 01/26/24 05:45 IMPRESSION: Bilateral infiltrates slightly increased. Pneumonia versus edema. Electronically Signed: Lydia Arthur MD at 6:33 EDT , Documented by User: Dr. Jose Luis Lechuga MD 01/26/24 19:29 Assessment & Plan Assessment/Plan (1) End-stage renal disease needing dialysis: (2) Cellulitis of sacral region: (3) Sepsis: (4) Anemia of chronic disease: PLAN: Plan This is an unfortunate 63-year-old female with past medical history significant for ESRD, has been on hemodialysis since August 2023, admitted to the hospital for sepsis, CT demonstrating localized collection suspicious for abscess, possible cellulitis. Started on IV antibiotics. Patient admitted to ICU pending bed availability at tertiary center. Blood pressure low, on IV pressor support. Nephrology consulted as patient undergoes hemodialysis 3 times weekly. She last dialyzed Friday. We will continue to provide dialysis support for Ms. Mckoy. There is no emergent need for hemodialysis today, likely plan hemodialysis tomorrow with minimal fluid removal if blood pressures are still low. Patient's volume status appears to be near her EDW. To note patient does have chronic hypotension and is on midodrine. History of anemia, will follow hgb trends. Further orders forthcoming as hospitalization evolves, thank you for letting us participate in the care of Ms. Mckoy. Seen and examined independently. Hold dialysis for today in view of active sepsis. She is currently on transfer list to [facility]. We will reevaluate tomorrow for potential dialysis. Potassium is okay today. HPI Consult Data Date of Consult: 01/26/24 [facility] Medical History History of diabetes mellitus History of renal dialysis Hx of renal failure ESRF (end stage renal failure) Thrombocytopenia Hypoxia Morbid (severe) obesity due to excess calories Sepsis Acute on chronic anemia CKD (chronic kidney disease) Hypoxemia CHF (congestive heart failure) Respiratory failure with hypoxia and hypercapnia Diabetes Current use of insulin Restless legs COPD (chronic obstructive pulmonary disease) History of stress test Irregular heartbeat MSSA bacteremia Congestive heart failure Gastroparesis Anxiety CPAP (continuous positive airway pressure) dependence Sleep apnea On home oxygen therapy Chronic kidney disease Anemia Chest pain (HFpEF) heart failure with preserved ejection fraction Pleural effusion, left Pulmonary edema Chronic kidney disease Malaise History of fever GASTON (acute kidney injury) Retinal hemorrhage Lower extremity edema History of renal insufficiency History of diabetes mellitus Diabetes mellitus with diabetic polyneuropathy SACHIN (obstructive sleep apnea) Chronic acquired lymphedema Chronic anemia CKD (chronic kidney disease), stage III HLD (hyperlipidemia) HTN (hypertension) Morbid obesity Diabetes mellitus, type 2 Anxiety and depression Hypoxia Hypothyroidism Home Medications ?Medication ?Instructions ?Recorded ?Last Taken ?Type atorvastatin 10 mg tablet 10 mg PO QHS cholesterol 09/24/22 04/13/23 History fenofibrate nanocrystallized 48 mg 48 mg PO DAILY cholesterol 09/24/22 04/13/23 History tablet (Tricor) levothyroxine 150 mcg tablet 150 mcg PO DAILY@0600 THYROID 03/05/23 Unknown History ropinirole 4 mg tablet 4 mg PO QHS restless legs 03/05/23 05/01/23 History pen needle, diabetic 31 gauge x 04/14/23 Unknown History 1/4 (Easy Touch) pantoprazole 40 mg tablet,delayed 40 mg PO BID heartburn #60 tabs 05/08/23 Unknown Rx release sucralfate 1 gram tablet (Carafate) 1 g PO BID heartburn #60 tabs 05/08/23 Unknown Rx difluprednate 0.05 % eye drops 1 drp ophthalmic (eye) DAILY 08/26/23 Unknown History bleeding behind eyes nystatin 100,000 unit/gram topical 1 applic topical BID yeast 08/26/23 Unknown History powder (Nystop) flash glucose sensor (FreeStyle 09/16/23 Unknown History Bandar 2 Sensor kit) gabapentin 300 mg capsule 300 mg PO QHS #0 caps 09/25/23 Unknown Rx midodrine 10 mg tablet 30 mg PO MOWEFR 12/31/23 Unknown History sennosides 8.6 mg-docusate sodium 2 tab-cap PO DAILY PRN constipation 12/31/23 Unknown History 50 mg tablet (2-in-1 Laxative) zinc sulfate 50 mg zinc (220 mg) 50 mg PO DAILY 12/31/23 Unknown History tablet B complex-vitamin C-folic acid ER 0.8 tab PO DAILY 01/07/24 Unknown History 400 mcg tablet,extended release midodrine 5 mg tablet 10 mg PO TIDCM 01/07/24 Unknown History mirtazapine 15 mg tablet 15 mg PO QHS 01/07/24 Unknown History daptomycin 500 mg intravenous 800 mg IV Q24H 10 days 01/16/24 Unknown Rx solution insulin lispro 100 unit/mL See Protocol subcut TIDAC #0 mL 01/17/24 Unknown Rx subcutaneous pen (Humalog KwikPen (U-100) Insulin) Allergy/AdvReac Type Severity Reaction Status Date / Time No Known Allergies Allergy Verified 09/16/23 08:52 Family History Mother Heart disease Hypertension Diabetes Father Prostate cancer Surgical History H/O cataract removal with insertion of prosthetic lens History of surgery on lower extremity History of cholecystectomy Social History housing: [facility] Smoking Status: Never smoker alcohol intake: never substance use type: does not use Lab / Micro Data 01/26/24 05:00 01/26/24 05:00
--- NOTE | 2024-01-26 12:48 | HP.PCM.HOS_ITS ---
HPI - General General Date of Admission: 01/26/24 Date of Service: 01/26/24 Chief Complaint: hypotension HPI Narrative TOBIN BIGGS, is a 63 F who presents from long-term with hypotension. Patient was recently hospitalized late December with dialysis line infection. Patient was found to have an abscess. The Hospitalist service was contacted and I advised reaching out to General Surgery. They contacted Dr. Burton, who advised transfer. Patient was accepted at [facility], but beds were not readily available, so patient will be admitted until could be transferred. Patient was hypotensive in the emergency room and PICC line was placed in the right upper extremity and patient was started on Levophed. Infectious disease was contacted and patient was continued on her daptomycin that she was on for her recent line infection but also added on meropenem. [facility] Medical History History of diabetes mellitus History of renal dialysis Hx of renal failure ESRF (end stage renal failure) Thrombocytopenia Hypoxia Morbid (severe) obesity due to excess calories Sepsis Acute on chronic anemia CKD (chronic kidney disease) Hypoxemia CHF (congestive heart failure) Respiratory failure with hypoxia and hypercapnia Diabetes Current use of insulin Restless legs COPD (chronic obstructive pulmonary disease) History of stress test Irregular heartbeat MSSA bacteremia Congestive heart failure Gastroparesis Anxiety CPAP (continuous positive airway pressure) dependence Sleep apnea On home oxygen therapy Chronic kidney disease Anemia Chest pain (HFpEF) heart failure with preserved ejection fraction Pleural effusion, left Pulmonary edema Chronic kidney disease Malaise History of fever GASTON (acute kidney injury) Retinal hemorrhage Lower extremity edema History of renal insufficiency History of diabetes mellitus Diabetes mellitus with diabetic polyneuropathy SACHIN (obstructive sleep apnea) Chronic acquired lymphedema Chronic anemia CKD (chronic kidney disease), stage III HLD (hyperlipidemia) HTN (hypertension) Morbid obesity Diabetes mellitus, type 2 Anxiety and depression Hypoxia Hypothyroidism Home Medications ?Medication ?Instructions ?Recorded ?Last Taken ?Type atorvastatin 10 mg tablet 10 mg PO QHS cholesterol 09/24/22 04/13/23 History fenofibrate nanocrystallized 48 mg 48 mg PO DAILY cholesterol 09/24/22 04/13/23 History tablet (Tricor) levothyroxine 150 mcg tablet 150 mcg PO DAILY@0600 THYROID 03/05/23 Unknown History ropinirole 4 mg tablet 4 mg PO QHS restless legs 03/05/23 05/01/23 History pen needle, diabetic 31 gauge x 04/14/23 Unknown History 1/4 (Easy Touch) pantoprazole 40 mg tablet,delayed 40 mg PO BID heartburn #60 tabs 05/08/23 Unknown Rx release sucralfate 1 gram tablet (Carafate) 1 g PO BID heartburn #60 tabs 05/08/23 Unknown Rx difluprednate 0.05 % eye drops 1 drp ophthalmic (eye) DAILY 08/26/23 Unknown History bleeding behind eyes nystatin 100,000 unit/gram topical 1 applic topical BID yeast 08/26/23 Unknown History powder (Nystop) flash glucose sensor (FreeStyle 09/16/23 Unknown History Bandar 2 Sensor kit) gabapentin 300 mg capsule 300 mg PO QHS #0 caps 09/25/23 Unknown Rx midodrine 10 mg tablet 30 mg PO MOWEFR 12/31/23 Unknown History sennosides 8.6 mg-docusate sodium 2 tab-cap PO DAILY PRN constipation 12/31/23 Unknown History 50 mg tablet (2-in-1 Laxative) zinc sulfate 50 mg zinc (220 mg) 50 mg PO DAILY 12/31/23 Unknown History tablet B complex-vitamin C-folic acid ER 0.8 tab PO DAILY 01/07/24 Unknown History 400 mcg tablet,extended release midodrine 5 mg tablet 10 mg PO TIDCM 01/07/24 Unknown History mirtazapine 15 mg tablet 15 mg PO QHS 01/07/24 Unknown History daptomycin 500 mg intravenous 800 mg IV Q24H 10 days 01/16/24 Unknown Rx solution insulin lispro 100 unit/mL See Protocol subcut TIDAC #0 mL 01/17/24 Unknown Rx subcutaneous pen (Humalog KwikPen (U-100) Insulin) Allergy/AdvReac Type Severity Reaction Status Date / Time No Known Allergies Allergy Verified 09/16/23 08:52 Family History Mother Heart disease Hypertension Diabetes Father Prostate cancer Surgical History H/O cataract removal with insertion of prosthetic lens History of surgery on lower extremity History of cholecystectomy Social History housing: long-term Smoking Status: Never smoker alcohol intake: never substance use type: does not use ROS ROS Narrative All review of systems were negative except as mentioned above in the history of present illness and the other review of systems. Vital Signs Vital Signs Vital Signs: 01/26/24 04:27 01/26/24 04:32 01/26/24 04:32 Temperature 36.7 C Temperature Source Oral Pulse Rate 72 Respiratory Rate 24 H Respiratory Effort Normal Non-Labored Normal Non-Labored Respiratory Depth Normal Respiratory Pattern Normal Normal Blood Pressure 70/44 L Blood Pressure Mean 52 Blood Pressure Source Blood Pressure Position Blood Pressure Location Pulse Ox 94 Oxygen Delivery Method Nasal Cannula Nasal Cannula Oxygen Flow Rate (L/min) 4 4 01/26/24 05:00 01/26/24 05:30 01/26/24 06:00 Temperature Temperature Source Pulse Rate 74 69 67 Respiratory Rate 19 H 21 H 22 H Respiratory Effort Respiratory Depth Respiratory Pattern Blood Pressure 81/46 L 87/39 L 94/44 L Blood Pressure Mean 57 55 60 Blood Pressure Source Blood Pressure Position Blood Pressure Location Pulse Ox 100 99 99 Oxygen Delivery Method Nasal Cannula Nasal Cannula Nasal Cannula Oxygen Flow Rate (L/min) 4 4 4 01/26/24 06:30 01/26/24 07:33 01/26/24 08:09 Temperature Temperature Source Pulse Rate 71 95 64 Respiratory Rate 27 H 20 H 18 Respiratory Effort Respiratory Depth Respiratory Pattern Blood Pressure 83/38 L 93/48 L 83/40 L Blood Pressure Mean 53 63 54 Blood Pressure Source Blood Pressure Position Blood Pressure Location Pulse Ox 100 96 100 Oxygen Delivery Method Nasal Cannula Nasal Cannula Nasal Cannula Oxygen Flow Rate (L/min) 4 4 3 01/26/24 08:27 01/26/24 09:16 01/26/24 09:38 Temperature Temperature Source Pulse Rate 65 63 Respiratory Rate 18 18 Respiratory Effort Respiratory Depth Respiratory Pattern Blood Pressure 99/48 L 85/43 L 89/46 L Blood Pressure Mean 65 57 60 Blood Pressure Source Blood Pressure Position Blood Pressure Location Pulse Ox 91 92 Oxygen Delivery Method Nasal Cannula Oxygen Flow Rate (L/min) 3 3 01/26/24 09:57 01/26/24 10:09 01/26/24 10:15 Temperature Temperature Source Pulse Rate 63 66 65 Respiratory Rate 18 18 18 Respiratory Effort Respiratory Depth Respiratory Pattern Blood Pressure 82/43 L 73/30 L 72/34 L Blood Pressure Mean 56 44 46 Blood Pressure Source Blood Pressure Position Blood Pressure Location Pulse Ox 94 100 96 Oxygen Delivery Method Nasal Cannula Nasal Cannula Nasal Cannula Oxygen Flow Rate (L/min) 3 3 3 01/26/24 10:20 01/26/24 10:26 01/26/24 10:58 Temperature 36.6 C Temperature Source Oral Pulse Rate 77 82 102 H Respiratory Rate 20 H 19 H 22 H Respiratory Effort Respiratory Depth Respiratory Pattern Blood Pressure 68/33 L 138/55 H 126/47 H Blood Pressure Mean 44 82 73 Blood Pressure Source Blood Pressure Position Blood Pressure Location Pulse Ox 100 100 98 Oxygen Delivery Method Nasal Cannula Nasal Cannula Nasal Cannula Oxygen Flow Rate (L/min) 3 3 3 01/26/24 11:13 01/26/24 11:17 01/26/24 11:22 Temperature 36.3 C L 36.3 C L 36.3 C L Temperature Source Oral Oral Pulse Rate 98 102 H 97 Respiratory Rate 32 H 27 H 29 H Respiratory Effort Respiratory Depth Respiratory Pattern Blood Pressure 127/50 H 125/39 H 147/42 H Blood Pressure Mean 75 67 77 Blood Pressure Source Blood Pressure Position Blood Pressure Location Pulse Ox 99 99 100 Oxygen Delivery Method Nasal Cannula Nasal Cannula Oxygen Flow Rate (L/min) 3 3 01/26/24 11:51 01/26/24 12:00 01/26/24 12:19 Temperature 36.5 C L Temperature Source Temporal Pulse Rate 108 H 108 H 98 Respiratory Rate 18 18 Respiratory Effort Respiratory Depth Respiratory Pattern Blood Pressure 129/51 H 129/51 H 123/40 H Blood Pressure Mean 77 77 67 Blood Pressure Source Monitor Monitor Monitor Blood Pressure Position Semi-Fowlers Semi-Fowlers Semi-Fowlers Blood Pressure Location Left Arm Left Arm Left Arm Pulse Ox 100 100 Oxygen Delivery Method Nasal Cannula Nasal Cannula Oxygen Flow Rate (L/min) 4 4 01/26/24 12:30 Temperature Temperature Source Pulse Rate 98 Respiratory Rate Respiratory Effort Respiratory Depth Respiratory Pattern Blood Pressure 119/39 L Blood Pressure Mean 65 Blood Pressure Source Monitor Blood Pressure Position Semi-Fowlers Blood Pressure Location Left Arm Pulse Ox Oxygen Delivery Method Oxygen Flow Rate (L/min) Weight Weight: 104.1 kg Body Mass Index (BMI) 38.2 Physical Exam Const Constitutional Narrative: Awake. Nontoxic. Listless. Afebrile. HEENT normocephalic and head/scalp atraumatic Eyes Eyes Narrative: No icterus Resp normal respiratory effort, no retractions, no use of accessory muscles and clear to auscultation bilaterally Cardio regular rate, regular rhythm, S1 normal heart sound and S2 normal heart sound GI normal to inspection, nondistended, normoactive bowel sounds, soft to palpation and non-tender Extremity normal to inspection and full ROM Skin Skin Narrative: Ulceration on the left buttocks as well as extending into the perineum. Granulation tissue. Purulence. Neuro Sensorium / Orientation: awake and alert Psych Mood & Affect: anxious Results Lab / Micro Data 01/26/24 05:00 01/26/24 05:00 Labs: Laboratory Results - last 24 hr 01/26/24 05:00: WBC 27.4 H, RBC 3.44 L, Hgb 9.0 L, Hct 31.8 L, MCV 92.4, MCH 26.2 L, MCHC 28.3 L, RDW Std Deviation 62.1 H, RDW Coeff of Vlad 19.2 H, Plt Count 91 L, MPV 10.9, Neut % (Auto) Not Reportable, Absolute Neuts (auto) 21.6 H , Absolute Lymphs (auto) 2.46, Total Counted 100, Neutrophils % (Manual) 62, B and Neutrophils % 17 H, Lymphocytes % (Manual) 5 L, Monocytes % (Manual) 9, Eosinophils % (Manual) 1, Myelocytes % 5 H, Promyelocytes % 1 H, Differential Comment SCANNED, Diff Path Review May foll, Platelet Estimate ADEQUATE, Stomatocytes 1+, Sodium 141, Potassium 3.8, Chloride 102, Carbon Dioxide 29.0, Anion Gap 10, BUN 32 H, Creatinine 4.56 H, Estim Creat Clear Calc 14.64, Est GFR (MDRD) Af Amer 12 L, Est GFR (MDRD) Non-Af 10 L, BUN/Creatinine Ratio 7.0 L, Glucose 84, Lactic Acid 1.2, Calcium 8.4 L, Total Bilirubin 1.00, Direct Bilirubin 0.61 H, AST 20, ALT 12 L, Alkaline Phosphatase 114, Total Protein 5.0 L, Albumin 1.9 L, Globulin 3.1, Procalcitonin 0.80 H 01/26/24 07:27: Urine Color Yellow, Urine Clarity Sl. Cloudy, Urine pH 5.0, Ur Specific [place] 1.020, Urine Protein 100 H, Urine Glucose (UA) Normal, Urine Ketones 15 H, Urine Occult Blood 10 H, Urine Nitrite Positive H, Urine Bilirubin 6 H, Urine Urobilinogen 1 H, Ur Leukocyte Esterase 500 H, Urine RBC 0-5 SEEN, Urine WBC 25-50 SEEN, Ur Squamous Epith Cells 5-10 SEEN, Ur Transition Epith Cell 0-5 SEEN, Urine Bacteria 2+, Urine Mucus 0 SEEN Imaging Radiology Impression Hip/Pelvis X-Ray 01/26/24 04:44 IMPRESSION: No evidence of fracture. Electronically Signed: Lydia Arthur MD at 6:07 EDT Reading Location ID and State: [employer] [place] / [employer] , Service support , Sacrum and Coccyx X-Ray 01/26/24 04:44 IMPRESSION: No definite fracture demonstrated. CT may be helpful for further evaluation if clinically indicated.. Electronically Signed: Lydia Arthur MD at 6:08 EDT Reading Location ID and State: [employer] [place] / [employer] , Service support , Abdomen/Pelvis CT 01/26/24 05:45 IMPRESSION: 1. Soft tissue changes in the perineum with relatively localized collection suspicious for abscess. Small foci of air within the stranding may be related to wound, recent procedure attempted drainage, versus infection. Findings are new compared to the recent CT. 2. Correlate for additional area of possible cellulitis left paravertebral at the T10-T11 level. 3. Inguinal and pelvic adenopathy likely reactive. 4. Small left pleural effusion and patchy airspace disease in the lower lungs greater on the left is increased, possible pneumonia. Electronically Signed: Lydia Arthur MD at 6:48 EDT Reading Location ID and State: [employer] / [employer] , Service support , Chest X-Ray 01/26/24 05:45 IMPRESSION: Bilateral infiltrates slightly increased. Pneumonia versus edema. Electronically Signed: Lydia Arthur MD at 6:33 EDT , Assessment & Plan Assessment/Plan (1) Septic shock: PLAN: Plan Septic shock * Multiple potential sources but most concerning at this time would be for the apparent abscess that she has developing in her perineum. * General surgery recommending transfer to a tertiary facility to be seen by The proper specialist * Follow-up blood cultures, wound cultures * Consult infectious disease * Not a candidate for IV fluids given her end-stage renal disease. Patient did have a PICC line placed in the emergency room and has been started on norepinephrine. * Critical care medicine on for consultation Perineal abscess * Awaiting on transfer to [facility] * Consult wound care * Wound culture * Infectious disease * Antibiotics with daptomycin and meropenem End-stage renal disease * Consult nephrology Chronic conditions: * Chronic hypoxic respiratory failure/SACHIN-BiPAP nocturnally--> patient is noncompliant at baseline with nocturnal BiPAP-Continue home oxygen as ordered- Typically on 4 L per previous documentation at baseline--> has been stable here on 2 to 3 L-As needed bronchodilator therapy * Chronic anemia-stable * DM-2-Had recent hemoglobin A1c in September and was 7.6- * History of dysphagia-mechanical soft thin liquid diet. ST * Hypothyroidism-Continue home Synthroid * GERD/esophageal stenosis/history of erosive gastropathy-Continue p.o. Protonix-Hemoglobin is stable * Pulmonary hypertension-Likely related to morbid obesity and obstructive sleep apnea-Most recent echo shows a right ventricular systolic pressure of 40 mmHg- Continue dialysis for volume status management * History of HFpEF-Currently compensated * Restless leg syndrome-Continue ropinirole-Restart home nightly gabapentin * Diabetic neuropathy-Will hold gabapentin currently with somnolence * Hyperlipidemia-Continue home fenofibrate-Continue home atorvastatin * Obesity-BMI 39.2-Recommend weight loss-Complicates treatment, prognosis, outcomes * Depression-Continue home mirtazapine DVT prophylaxis subcu heparin CODE STATUS: Addressed with the patient. Patient wished to be full code. Charges/Coding Visit Charges Inpatient E&M: 91151 Init Hosp L3
--- NOTE | 2024-01-26 13:20 | WOUNDNOTE ---
wound photo: left buttock/perineum
--- NOTE | 2024-01-26 13:21 | WOUNDNOTE ---
wound photo: left buttock/perineum
--- NOTE | 2024-01-26 13:44 | CON.PCM.ID_ITS ---
Assessment & Plan Assessment/Plan (1) Septic shock: PLAN: h/o ESRD, recurrent CRBSI, last admit 01/07/24 to [facility] with septic shock due to VRE bacteremia. Had MRSA bacteremia at [facility] 09/2023. HD line removed 01/10/24. Bcx cleared 01/11. Treated with dapto, HD line was replaced, and discharged 01/16 on dapto dosed with HD stop date 01/26/24. Now admitted 01/25 with perineal wound and abscess seen on CT. Wound cx, bcx pending. Cont dapto/lian. Transfer planned. Will follow, thank you (2) End-stage renal disease needing dialysis: (3) Cellulitis of sacral region: HPI Consult Data Date of Consult: 01/26/24 HPI Narrative Reason for Consultation: septic shock HPI Narrative: TOBIN BIGGS, is a 63 F with ESRD, recurrent CRBSI, last admit 01/07/24 to [facility] with septic shock due to VRE bacteremia. Had MRSA bacteremia at [facility] 09/2023. HD line removed 01/10/24. Bcx cleared 01/11. Treated with dapto, HD line was replaced, and discharged 01/16 on dapto dosed with HD stop date 01/26/24. Now admitted 01/25 from ED with weakness and fall at [facility]. C/o pain in backside. Found to have wound and abscess on CT. Admitted to icu on pressor, lian, and dapto. Feeling ok, no fever, pain is mild. Full ROS performed and neg except as noted above. [facility] Medical History History of diabetes mellitus History of renal dialysis Hx of renal failure ESRF (end stage renal failure) Thrombocytopenia Hypoxia Morbid (severe) obesity due to excess calories Sepsis Acute on chronic anemia CKD (chronic kidney disease) Hypoxemia CHF (congestive heart failure) Respiratory failure with hypoxia and hypercapnia Diabetes Current use of insulin Restless legs COPD (chronic obstructive pulmonary disease) History of stress test Irregular heartbeat MSSA bacteremia Congestive heart failure Gastroparesis Anxiety CPAP (continuous positive airway pressure) dependence Sleep apnea On home oxygen therapy Chronic kidney disease Anemia Chest pain (HFpEF) heart failure with preserved ejection fraction Pleural effusion, left Pulmonary edema Chronic kidney disease Malaise History of fever GASTON (acute kidney injury) Retinal hemorrhage Lower extremity edema History of renal insufficiency History of diabetes mellitus Diabetes mellitus with diabetic polyneuropathy SACHIN (obstructive sleep apnea) Chronic acquired lymphedema Chronic anemia CKD (chronic kidney disease), stage III HLD (hyperlipidemia) HTN (hypertension) Morbid obesity Diabetes mellitus, type 2 Anxiety and depression Hypoxia Hypothyroidism Home Medications ?Medication ?Instructions ?Recorded ?Last Taken ?Type atorvastatin 10 mg tablet 10 mg PO QHS cholesterol 09/24/22 04/13/23 History fenofibrate nanocrystallized 48 mg 48 mg PO DAILY cholesterol 09/24/22 04/13/23 History tablet (Tricor) levothyroxine 150 mcg tablet 150 mcg PO DAILY@0600 THYROID 03/05/23 Unknown History ropinirole 4 mg tablet 4 mg PO QHS restless legs 03/05/23 05/01/23 History pen needle, diabetic 31 gauge x 04/14/23 Unknown History 1/4 (Easy Touch) pantoprazole 40 mg tablet,delayed 40 mg PO BID heartburn #60 tabs 05/08/23 Unknown Rx release sucralfate 1 gram tablet (Carafate) 1 g PO BID heartburn #60 tabs 05/08/23 Unknown Rx difluprednate 0.05 % eye drops 1 drp ophthalmic (eye) DAILY 08/26/23 Unknown History bleeding behind eyes nystatin 100,000 unit/gram topical 1 applic topical BID yeast 08/26/23 Unknown History powder (Nystop) flash glucose sensor (FreeStyle 09/16/23 Unknown History Bandar 2 Sensor kit) gabapentin 300 mg capsule 300 mg PO QHS #0 caps 09/25/23 Unknown Rx midodrine 10 mg tablet 30 mg PO MOWEFR 12/31/23 Unknown History sennosides 8.6 mg-docusate sodium 2 tab-cap PO DAILY PRN constipation 12/31/23 Unknown History 50 mg tablet (2-in-1 Laxative) zinc sulfate 50 mg zinc (220 mg) 50 mg PO DAILY 12/31/23 Unknown History tablet B complex-vitamin C-folic acid ER 0.8 tab PO DAILY 01/07/24 Unknown History 400 mcg tablet,extended release midodrine 5 mg tablet 10 mg PO TIDCM 01/07/24 Unknown History mirtazapine 15 mg tablet 15 mg PO QHS 01/07/24 Unknown History daptomycin 500 mg intravenous 800 mg IV Q24H 10 days 01/16/24 Unknown Rx solution insulin lispro 100 unit/mL See Protocol subcut TIDAC #0 mL 01/17/24 Unknown Rx subcutaneous pen (Humalog KwikPen (U-100) Insulin) Allergy/AdvReac Type Severity Reaction Status Date / Time No Known Allergies Allergy Verified 09/16/23 08:52 Family History Mother Heart disease Hypertension Diabetes Father Prostate cancer Surgical History H/O cataract removal with insertion of prosthetic lens History of surgery on lower extremity History of cholecystectomy Social History housing: [facility] Smoking Status: Never smoker alcohol intake: never substance use type: does not use Physical Exam Const oriented x3 and no apparent distress General Appearance: lethargic HEENT normocephalic and head/scalp atraumatic Eyes PERRL and EOMs intact bilaterally Neck supple and No nodes Resp normal air movement and clear to auscultation bilaterally Cardio regular rate and regular rhythm GI soft to palpation, non-tender and non-distended Extremity General Extremity: edema Skin Skin Narrative: Reviewed photo. Perineal wound. Neuro CN's II-XII intact bilaterally Lab / Micro Data Attestation: I reviewed the patient's lab results. 01/26/24 05:00 01/26/24 05:00 Labs: Laboratory Results - last 24 hr 01/26/24 05:00: WBC 27.4 H, RBC 3.44 L, Hgb 9.0 L, Hct 31.8 L, MCV 92.4, MCH 26.2 L, MCHC 28.3 L, RDW Std Deviation 62.1 H, RDW Coeff of Vlad 19.2 H, Plt Count 91 L, MPV 10.9, Neut % (Auto) Not Reportable, Absolute Neuts (auto) 21.6 H , Absolute Lymphs (auto) 2.46, Total Counted 100, Neutrophils % (Manual) 62, B and Neutrophils % 17 H, Lymphocytes % (Manual) 5 L, Monocytes % (Manual) 9, Eosinophils % (Manual) 1, Myelocytes % 5 H, Promyelocytes % 1 H, Differential Comment SCANNED, Diff Path Review May foll, Platelet Estimate ADEQUATE, Stomatocytes 1+, Sodium 141, Potassium 3.8, Chloride 102, Carbon Dioxide 29.0, Anion Gap 10, BUN 32 H, Creatinine 4.56 H, Estim Creat Clear Calc 14.64, Est GFR (MDRD) Af Amer 12 L, Est GFR (MDRD) Non-Af 10 L, BUN/Creatinine Ratio 7.0 L, Glucose 84, Lactic Acid 1.2, Calcium 8.4 L, Total Bilirubin 1.00, Direct Bilirubin 0.61 H, AST 20, ALT 12 L, Alkaline Phosphatase 114, Total Protein 5.0 L, Albumin 1.9 L, Globulin 3.1, Procalcitonin 0.80 H 01/26/24 07:27: Urine Color Yellow, Urine Clarity Sl. Cloudy, Urine pH 5.0, Ur Specific [place] 1.020, Urine Protein 100 H, Urine Glucose (UA) Normal, Urine Ketones 15 H, Urine Occult Blood 10 H, Urine Nitrite Positive H, Urine Bilirubin 6 H, Urine Urobilinogen 1 H, Ur Leukocyte Esterase 500 H, Urine RBC 0-5 SEEN, Urine WBC 25-50 SEEN, Ur Squamous Epith Cells 5-10 SEEN, Ur Transition Epith Cell 0-5 SEEN, Urine Bacteria 2+, Urine Mucus 0 SEEN Imaging Radiology Impression Hip/Pelvis X-Ray 01/26/24 04:44 IMPRESSION: No evidence of fracture. Electronically Signed: Lydia Arthur MD at 6:07 EDT , Sacrum and Coccyx X-Ray 01/26/24 04:44 IMPRESSION: No definite fracture demonstrated. CT may be helpful for further evaluation if clinically indicated.. Electronically Signed: Lydia Arthur MD at 6:08 EDT , Abdomen/Pelvis CT 01/26/24 05:45 IMPRESSION: 1. Soft tissue changes in the perineum with relatively localized collection suspicious for abscess. Small foci of air within the stranding may be related to wound, recent procedure attempted drainage, versus infection. Findings are new compared to the recent CT. 2. Correlate for additional area of possible cellulitis left paravertebral at the T10-T11 level. 3. Inguinal and pelvic adenopathy likely reactive. 4. Small left pleural effusion and patchy airspace disease in the lower lungs greater on the left is increased, possible pneumonia. Electronically Signed: Lydia Arthur MD at 6:48 EDT , Chest X-Ray 01/26/24 05:45 IMPRESSION: Bilateral infiltrates slightly increased. Pneumonia versus edema. Electronically Signed: Lydia Arthur MD at 6:33 EDT ,
--- NOTE | 2024-01-26 13:58 | CASEMGMT ---
Social Work Pt is here from [facility]. Pt may be transferred, SW will continue to follow and is available for any social service needs as they arise. ARIAN Philippe
--- NOTE | 2024-01-26 14:03 | CASEMGMT ---
Social Work- Pt has directives in chart naming Tobias Brito Jr as agent and Amie Pyle as alternate agent. JOYCE Christensen
[2024-01-26 14:27] LABS: Pathologist Review Reviewed
--- NOTE | 2024-01-26 15:16 | CASEMGMT ---
Social Work SW received a call from Alethea at [facility]. She states that pt is now ESRD, and wanted to let SW know as this may open up other SNF options for pt. SW will follow as long as pt is here. ARIAN Philippe
[2024-01-26] MEDS: Sucralfate 1 GM Tablet PO (15:53)
[2024-01-26 16:10] LABS: Bedside Glucose 103 mg/dL (74-106)
[2024-01-26] MEDS: Norepinephrine 8 MG in 0.9% Normal Saline (250mL Bag) 242 ML 18.8 MG CONT INF (18:09)
[2024-01-26] MEDS: Gabapentin 300 MG Capsule PO (21:56)
[2024-01-26] MEDS: Mirtazapine 15 MG Tablet PO (21:56)
[2024-01-26] MEDS: Pramipexole Di-HCl 0.125 MG Tablet 0.375 MG PO (21:57)
[2024-01-26] MEDS: Pantoprazole Sodium 40 MG Tablet PO (21:57)
[2024-01-26] MEDS: Atorvastatin Calcium 10 MG Tablet PO (21:58)
[2024-01-26] MEDS: Heparin Injection (Vial) 5,000 UNIT/ML VIAL 5000 UNIT SC (21:58)
[2024-01-27] VITALS (41 sets, daily range): BP systolic 91–386; BP diastolic 36–79; PULSE 72–94; RESP 12–25; TEMP 36.1–37.1; O2SAT 95–100; BMI 38.0
[2024-01-27 04:52] LABS: Absolute Lymphocyte Count 2.72 X10^3/uL (0.83-4.51); Absolute Neutrophil Count 18.8 X10^3/uL (2.0-7.7); Basophil# 0.12 X10^3/uL; Basophil% 0.4 % (0-1); Eosinophil# 0.13 X10^3/uL; Eosinophils% 0.5 % (0-5); Hemoglobin 8.5 g/dL (12.0-15.0); Lymphocyte # 2.72 X10^3/ul (0.83-4.51); Lymphocyte % 9.9 % (19-41); Mean Corp Hgb Conc 27.4 g/dL (32-36); Mean Corpuscular Hgb 25.8 pg (27.0-32.0); Mean Corpuscular Volume 93.9 fL (81-99); Mean Platelet Vol. 11.2 fl (6.2-12.0); Monocyte# 2.97 X10^3/uL; Monocyte% 10.8 % (0-10); NRBC Flagged by Analyzer 0.4 % (0-5); Neutrophil # 18.77 X10^3/uL (2.7-7.7); Neutrophil % 68.1 % (47-70); POSITIVE COUNT YES; POSITIVE DIFFERENTIAL YES; POSITIVE MORPHOLOGY YES; Platelet Count 105 K/mm3 (150-450); RBC Distribution Width CV 19.6 % (11.6-14.6); RBC Distribution Width SD 65.1 fl (35.1-43.9); White Blood Count 27.5 K/mm3 (4.4-11.0)
[2024-01-27 05:06] LABS: Anion Gap 14 (5-15); BUN 41 mg/dL (7-18); BUN/Creat Ratio 7.6 RATIO (10-20); Calcium,Total 8.5 mg/dL (8.5-10.1); Chloride 103 mmol/L (98-107); Creatinine, Serum 5.43 mg/dL (0.55-1.02); EST Glomerular Filtration Rate 8 mL/min (>60); Est Glom Filt Rate - Afr Amer 10 mL/min (>60); Estimated Creatinine Clearance 12.34 ml/min; Glucose 110 mg/dL (74-106); Potassium 4.1 mmol/L (3.5-5.1); Sodium Level 141 mmol/L (136-145)
[2024-01-27] MEDS: Pramipexole Di-HCl 0.125 MG Tablet 0.375 MG PO ×2 (05:44→15:22)
[2024-01-27] MEDS: Levothyroxine 150 MCG Tablet PO (05:44)
[2024-01-27 05:47] LABS: CPK Total, Creatine Kinase 19 U/L (26-192)
[2024-01-27 06:29] LABS: Differential Indicated SCAN CRITERIA MET
[2024-01-27] MEDS: PureFlow B 4K Dialysis Soln 1 BAG BAG 6 BAG PF (06:54)
[2024-01-27] MEDS: 0.9% Normal Saline 1,000 ML IV.SOLN. 1000 ML OPERA.SITE (06:54)
--- NOTE | 2024-01-27 07:01 | PN.HOSP_ITS ---
Reason for Visit Reason for Visit: Diagnoses Sepsis, unspecified organism (01/26/24) Anemia in other chronic diseases classified elsewhere (01/26/24) Cellulitis of trunk, unspecified (01/26/24) Pressure ulcer of sacral region, unspecified stage (01/26/24) End stage renal disease (01/26/24) Severe sepsis with septic shock (01/26/24) Dependence on renal dialysis (01/26/24) Subjective Subjective Complains of pain in buttocks. Still requiring norepinephrine. Objective Data Objective Data Vital Signs: Vital Signs Temp Pulse Resp BP Pulse Ox O2 Del Method O2 Flow Rate 36.4 C L 81 19 H 96/41 L 97 Nasal Cannula 2 01/27/24 06:30 01/27/24 06:59 01/27/24 06:59 01/27/24 06:59 01/27/24 06:59 01/27/24 06:59 01/27/24 06:59 Oxygen Flow Rate (L/min) 2 Oxygen Delivery Method Nasal Cannula Weight: 103.7 kg Body Mass Index (BMI) 38.0 Intake & Output: Intake and Output for Last 24 Hours 01/25/24 01/26/24 01/27/24 23:59 23:59 23:59 Intake Total 1334.25 / 1336.60 117.99 / 117.99 Output Total 0 / 0 0 / 0 Balance 1334.25 / 1336.60 117.99 / 117.99 Lab / Micro Data 01/27/24 04:40 01/27/24 04:40 Labs: Laboratory Results - last 24 hr 01/26/24 05:00: Diff Path Review Reviewed 01/26/24 07:27: Urine Color Yellow, Urine Clarity Sl. Cloudy, Urine pH 5.0, Ur Specific [place] 1.020, Urine Protein 100 H, Urine Glucose (UA) Normal, Urine Ketones 15 H, Urine Occult Blood 10 H, Urine Nitrite Positive H, Urine Bilirubin 6 H, Urine Urobilinogen 1 H, Ur Leukocyte Esterase 500 H, Urine RBC 0-5 SEEN, Urine WBC 25-50 SEEN, Ur Squamous Epith Cells 5-10 SEEN, Ur Transition Epith Cell 0-5 SEEN, Urine Bacteria 2+, Urine Mucus 0 SEEN 01/26/24 15:51: POC Glucose 103 01/27/24 04:40: WBC 27.5 H, RBC 3.30 L, Hgb 8.5 L, Hct 31.0 L, MCV 93.9, MCH 25.8 L, MCHC 27.4 L, RDW Std Deviation 65.1 H, RDW Coeff of Vlad 19.6 H, Plt Count 105 L, MPV 11.2, Immature Gran % (Auto) 10.300 H, Neut % (Auto) 68.1, L ymph % (Auto) 9.9 L, [place] % (Auto) 10.8 H, Eos % (Auto) 0.5, Baso % (Auto) 0.4, Absolute Neuts (auto) 18.8 H, Absolute Lymphs (auto) 2.72, Nucleated RBC % 0.4, Sodium 141, Potassium 4.1, Chloride 103, Carbon Dioxide 24.0, Anion Gap 14, BUN 41 H, Creatinine 5.43 H, Estim Creat Clear Calc 12.34, Est GFR (MDRD) Af Amer 10 L, Est GFR (MDRD) Non-Af 8 L, BUN/Creatinine Ratio 7.6 L, Glucose 110 H, Calcium 8.5, Total Creatine Kinase 19 L Radiography Diagnostic Testing: Radiology Impression Sacrum and Coccyx X-Ray 01/26/24 04:44 IMPRESSION: No definite fracture demonstrated. CT may be helpful for further evaluation if clinically indicated.. Electronically Signed: Lydia Arthur MD at 6:08 EDT , Physical Exam Const alert and no apparent distress Constitutional Narrative: seen in room on HD. Resp normal respiratory effort, no retractions, no use of accessory muscles and clear to auscultation bilaterally Cardio regular rate, regular rhythm, S1 normal heart sound and S2 normal heart sound GI normal to inspection, nondistended, normoactive bowel sounds, soft to palpation, non-tender and non-distended Neuro Sensorium / Orientation: awake and alert Assessment & Plan Assessment/Plan (1) Septic shock: PLAN: Plan Septic shock * Multiple potential sources but most concerning at this time would be for the apparent abscess that she has developing in her perineum. * General surgery recommending transfer to a tertiary facility to be seen by The proper specialist * BCx pending. UCx E. coli. Wound Cx GNR. * Consult infectious disease * Not a candidate for IV fluids given her end-stage renal disease. Patient did have a PICC line placed in the emergency room and has been started on norepinephrine. * Critical care medicine on for consultation * On norepinephrine. Perineal abscess * Awaiting on transfer to 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 ST * Hypothyroidism-Continue home Synthroid * GERD/esophageal stenosis/history of erosive gastropathy-Continue p.o. Protonix-Hemoglobin is stable * Pulmonary hypertension-Likely Group 2. Treat the underlying etiology. * History of HFpEF-Currently compensated * Restless leg syndrome-Continue ropinirole-Restart home nightly gabapentin * Diabetic neuropathy-gabapentin * Hyperlipidemia-Continue home fenofibrate-Continue home atorvastatin * Obesity Class II. * Depression-Continue home mirtazapine DVT prophylaxis subcu heparin CODE STATUS: Addressed with the patient. Patient wished to be full code. Disposition: awaiting on transfer to [facility]. Charges/Coding Visit Charges Inpatient E&M: 47186 [facility] Hosp L2
[2024-01-27 07:27] LABS: Anisocytosis 2+; Differential Comment SCANNED; Macrocytosis 2+; Ovalocyte 1+; Platelet Estimate SLT DEC (ADEQ); Polychromasia 2+
--- NOTE | 2024-01-27 07:35 | PCM.PN.INT ---
Assessment & Plan Assessment/Plan (1) Sepsis: (2) Cellulitis of sacral region: (3) Decubitus ulcer of sacral area: (4) End-stage renal disease needing dialysis: PLAN: Plan RECOMMENDATIONS: 1. Continue antimicrobials per ID recommendations. 2. Continue vasopressor support and wean as tolerated. 3. Dialysis support per nephrology recommendations. 4. Awaiting transfer to [facility]. IMPRESSIONS: 1. Septic shock The patient presented to the hospital with generalized weakness and fall, with resultant fluid refractory hypotension, which required vasopressor initiation. Subsequent imaging demonstrated findings concerning for a possible abscess involving the perineum. The patient has a known history of frequent hospitalizations, the last occurring just over 1 week ago, after she was admitted with septic shock secondary to VRE UTI and bacteremia. Accordingly, the patient has been initiated on broad-spectrum antimicrobials, per ID recommendations. Recommend continuing Levophed to maintain hemodynamic stability. The patient is awaiting transfer to a tertiary care facility. 2. End-stage renal disease on hemodialysis Nephrology has been consulted to assist with hemodialysis needs. 3. History of anemia/thrombocytopenia/obesity/hypothyroidism/diabetes mellitus/chronic kidney disease/GERD/obstructive sleep apnea Complicates care, management, recovery and prognosis. Continue supportive measures as noted above. TIME: 31 minutes of critical care time, independent of procedures, was spent addressing the patient's septic shock, end-stage renal disease on hemodialysis, review of all data and collaboration with the care team. Subjective Subjective The patient was seen and examined at the bedside this morning. Events from the last 24 hours have been reviewed. The patient is currently afebrile maintaining hemodynamic stability on Levophed at 6 mcg/min. White count remains elevated at 27,000. Platelet count is low at 105,000. Objective Data Objective Data The patient's most recent lab work, culture data and imaging studies have all been personally reviewed. Urine culture is demonstrating growth of presumptive E. coli. Blood cultures are pending. Vital Signs: Vital Signs Temp Pulse Resp BP Pulse Ox O2 Del Method O2 Flow Rate 97.6 F L 81 20 H 119/44 L 98 Nasal Cannula 3 01/27/24 06:30 01/27/24 07:15 01/27/24 07:15 01/27/24 07:15 01/27/24 07:15 01/27/24 07:15 01/27/24 07:15 Oxygen Flow Rate (L/min) 3 Oxygen Delivery Method Nasal Cannula Weight: 228 lb 9.91 oz Body Mass Index (BMI) 38.0 Intake & Output: Intake and Output for Last 24 Hours 01/25/24 01/26/24 01/27/24 23:59 23:59 23:59 Intake Total 1334.25 / 1336.60 117.99 / 117.99 Output Total 0 / 0 0 / 0 Balance 1334.25 / 1336.60 117.99 / 117.99 Lab / Micro Data Attestation: I reviewed the patient's lab results. 01/27/24 04:40 01/27/24 04:40 Labs: Laboratory Results - last 24 hr 01/26/24 05:00: Diff Path Review Reviewed 01/26/24 07:27: Urine Color Yellow, Urine Clarity Sl. Cloudy, Urine pH 5.0, Ur Specific [place] 1.020, Urine Protein 100 H, Urine Glucose (UA) Normal, Urine Ketones 15 H, Urine Occult Blood 10 H, Urine Nitrite Positive H, Urine Bilirubin 6 H, Urine Urobilinogen 1 H, Ur Leukocyte Esterase 500 H, Urine RBC 0-5 SEEN, Urine WBC 25-50 SEEN, Ur Squamous Epith Cells 5-10 SEEN, Ur Transition Epith Cell 0-5 SEEN, Urine Bacteria 2+, Urine Mucus 0 SEEN 01/26/24 15:51: POC Glucose 103 01/27/24 04:40: WBC 27.5 H, RBC 3.30 L, Hgb 8.5 L, Hct 31.0 L, MCV 93.9, MCH 25.8 L, MCHC 27.4 L, RDW Std Deviation 65.1 H, RDW Coeff of Vlad 19.6 H, Plt Count 105 L, MPV 11.2, Immature Gran % (Auto) 10.300 H, Neut % (Auto) 68.1, Lymph % (Auto) 9.9 L, [place] % (Auto) 10.8 H, Eos % (Auto) 0.5, Baso % (Auto) 0.4, Absolute Neuts (auto) 18.8 H, Absolute Lymphs (auto) 2.72, Nucleated RBC % 0.4, Differential Comment SCANNED, Diff Path Review May foll, Platelet Estimate SLT DEC, Polychromasia 2+, Anisocytosis 2+, Macrocytosis 2+, Ovalocytes 1+, Sodium 141, Potassium 4.1, Chloride 103, Carbon Dioxide 24.0, Anion Gap 14, BUN 41 H, Creatinine 5.43 H, Estim Creat Clear Calc 12.34, Est GFR (MDRD) Af Amer 10 L, Est GFR (MDRD) Non-Af 8 L, BUN/Creatinine Ratio 7.6 L, Glucose 110 H, Calcium 8.5, Total Creatine Kinase 19 L Micro: Microbiology 01/26/24 07:27 Urine, Catheterized Urine Culture - Preliminary Presumptive E. coli Physical Exam Const alert and no apparent distress Constitutional Narrative: Chronically ill in appearance. HEENT normocephalic and head/scalp atraumatic Eyes PERRL and EOMs intact bilaterally Neck supple General: trachea midline Chest inspection of chest normal Resp normal respiratory effort Effort and Inspection: tachypneic Auscultation: Negative for rales, rhonchi or wheezes Cardio regular rate and regular rhythm GI normal to inspection, nondistended, normoactive bowel sounds Extremity no clubbing, cyanosis or edema Skin Skin Narrative: Sacral decubitus ulcer present Neuro CN's II-XII intact bilaterally and no focal motor deficits Psych Mood & Affect: flat affect Charges/Coding Procedures Hospitalists Procedures: 36222 Critical Care 1st Hr
[2024-01-27 07:44] LABS: Bedside Glucose 100 mg/dL (74-106)
[2024-01-27] MEDS: Heparin 10,000 UNITS/10 ML Vial IV (09:19)
--- NOTE | 2024-01-27 09:39 | CASEMGMT ---
Insurance review for hospitals In-network with?[facility] Connected [facility] insurance if transfer is recommended is as follows: [facility], [place], [facility], [facility], [facility], [facility]), and .
[2024-01-27] MEDS: Pantoprazole Sodium 40 MG Tablet PO (09:55)
[2024-01-27] MEDS: Folic Acid/Vitamin B Comp W-C 1 Capsule 1 CAP PO (09:55)
[2024-01-27] MEDS: Sucralfate 1 GM Tablet PO ×2 (09:55→15:20)
[2024-01-27] MEDS: Zinc Sulfate 50 mg zinc (220 mg) ORAL capsule PO (09:55)
[2024-01-27] MEDS: Midodrine HCl 5 MG Tablet 30 MG PO (09:56)
[2024-01-27] MEDS: Heparin Injection (Vial) 5,000 UNIT/ML VIAL 5000 UNIT SC (09:58)
[2024-01-27] MEDS: Juven (unflavored) Packet 1 PACKET PO (09:59)
[2024-01-27] MEDS: Midodrine HCl 5 MG Tablet 10 MG PO ×2 (10:09→15:22)
[2024-01-27] MEDS: Acetaminophen 325 MG Tablet 650 MG PO (10:12)
[2024-01-27] MEDS: prednisoLONE eye drops (5 mL) 1 DROP OPTH.BTL 1 DRP OPHTHALMIC ×3 (10:13→17:45)
--- NOTE | 2024-01-27 10:27 | PCM.PN.REN ---
Subjective Subjective Sitting up in bed, finished dialysis. More alert and oriented this morning. Complaining of coccyx pain. Objective Data Objective Data Vital Signs: Vital Signs Temp Pulse Resp BP Pulse Ox O2 Del Method O2 Flow Rate 96.9 F L 76 18 128/44 H 100 Nasal Cannula 3 01/27/24 09:44 01/27/24 09:44 01/27/24 09:44 01/27/24 09:45 01/27/24 09:44 01/27/24 09:44 01/27/24 09:44 Oxygen Flow Rate (L/min) 3 Oxygen Delivery Method Nasal Cannula Weight: 103.7 kg Body Mass Index (BMI) 38.0 Intake & Output: Intake and Output for Last 24 Hours 01/25/24 01/26/24 01/27/24 23:59 23:59 23:59 Intake Total 1334.25 / 1336.60 150.18 / 150.18 Output Total 0 / 0 40 / 40 Balance 1334.25 / 1336.60 110.18 / 110.18 Lab / Micro Data 01/27/24 04:40 01/27/24 04:40 Labs: Laboratory Results - last 24 hr 01/26/24 05:00: Diff Path Review Reviewed 01/26/24 15:51: POC Glucose 103 01/27/24 04:40: WBC 27.5 H, RBC 3.30 L, Hgb 8.5 L, Hct 31.0 L, MCV 93.9, MCH 25.8 L, MCHC 27.4 L, RDW Std Deviation 65.1 H, RDW Coeff of Vlad 19.6 H, Plt Count 105 L, MPV 11.2, Immature Gran % (Auto) 10.300 H, Neut % (Auto) 68.1, Lymph % (Auto) 9.9 L, [place] % (Auto) 10.8 H, Eos % (Auto) 0.5, Baso % (Auto) 0.4, Absolute Neuts (auto) 18.8 H, Absolute Lymphs (auto) 2.72, Nucleated RBC % 0.4, Differential Comment SCANNED, Diff Path Review November, Platelet Estimate SLT DEC, Polychromasia 2+, Anisocytosis 2+, Macrocytosis 2+, Ovalocytes 1+, Sodium 141, Potassium 4.1, Chloride 103, Carbon Dioxide 24.0, Anion Gap 14, BUN 41 H, Creatinine 5.43 H, Estim Creat Clear Calc 12.34, Est GFR (MDRD) Af Amer 10 L, Est GFR (MDRD) Non-Af 8 L, BUN/Creatinine Ratio 7.6 L, Glucose 110 H, Calcium 8.5, Total Creatine Kinase 19 L 01/27/24 07:26: POC Glucose 100 Micro: Microbiology 01/26/24 13:01 Wound - Sacral Wound Culture - Preliminary GNR lactose circular knife cutter machine 01/26/24 07:27 Urine, Catheterized Urine Culture - Preliminary Presumptive E. coli Physical Exam Narrative Alert and oriented. No apparent distress S1, S2, RRR Lung sounds clear Abdomen soft, nontender Nonpitting edema bilateral lower legs Tunneled hemodialysis catheter left chest dressing clean, dry and intact Assessment & Plan Assessment/Plan (1) End-stage renal disease needing dialysis: (2) Cellulitis of sacral region: (3) Sepsis: (4) Anemia of chronic disease: PLAN: Plan - ESRD, has been on hemodialysis since August 2023, HD MWF, EDW 105kg. Patient underwent HD today with only around 500 mL fluid removal. Patient is under her EDW. Will evaluate for hemodialysis tomorrow. Patient is on Levophed at 7 mcg/hr. - sepsis, possible source is perineal wound/abscess. CT A/P demonstrating localized collection suspicious for abscess, cellulitis. IV antibiotics per ID, dapto and meropenem. Blood cultures pending, urine culture ecoli, wound culture pending. General surgery recommended transfer to tertiary center. - chronic hypotension on midodrine. - History of anemia, will follow hgb trends. Patient receives ABBI and iron at the kidney center. Hemoglobin 8.5 - recent history of catheter related infection s/p new tunneled HD catheter placed, was receiving dapto with HD with stop date 01/25
[2024-01-27] MEDS: 0.9% Saline Lock 10 ML Syringe IV (11:17)
[2024-01-27 11:41] LABS: Bedside Glucose 99 mg/dL (74-106)
[2024-01-27 13:41] LABS: Pathologist Review Reviewed
[2024-01-27] MEDS: Meropenem 1 GM in 0.9% Normal Saline (100mL MB+) 100 ML IV (15:02)
[2024-01-27] MEDS: Norepinephrine 8 MG in 0.9% Normal Saline (250mL Bag) 242 ML 13.1 MG CONT INF (15:10)
[2024-01-27 17:16] LABS: Bedside Glucose 119 mg/dL (74-106)
--- NOTE | 2024-01-27 21:00 | DS.PCM_ITS ---
Providers Date of Admission: 01/26/24 Primary Care Physician: Dr. Cortez Smith, DO Consultations 01/26/24 12:20 Consult: Infectious Disease Routine Consulting Provider: Tobias Dickerson Reason for Consult: septic shock EMERGENT Consult: No MD Notified: Yes Date Notified: 01/26/24 Time Notified: 11:23 Method of Notification: Text Consult: Neonatal Surgeon / Pulmonary Medicine Routine Consulting Provider: Intensivists/Pulmonary Med Reason for Consult: septic shock EMERGENT Consult: No Notified: Yes Date Notified: 01/26/24 Time Notified: 11:21 Method of Notification: Verbal Consult: Nephrology Routine Consulting Provider: Jose Luis Lechuga Reason for Consult: HD EMERGENT Consult: No Notified: Yes Date Notified: 01/26/24 Time Notified: 11:22 Method of Notification: Answering Service Consult: Onc/Wound/doll wig hackler Routine Comment: Reason For Visit: SEPTIC SHOCK Diagnosis Discharge Diagnosis (1) End-stage renal disease needing dialysis: Status: Acute Code(s): N18.6 - End stage renal disease; Z99.2 - Dependence on renal dialysis (2) Cellulitis of sacral region: Status: Acute Code(s): L03.319 - Cellulitis of trunk, unspecified (3) Sepsis: Status: Acute Code(s): A41.9 - Sepsis, unspecified organism (4) Anemia of chronic disease: Status: Chronic Code(s): D63.8 - Anemia in other chronic diseases classified elsewhere Plan Septic shock * Multiple potential sources but most concerning at this time would be for the apparent abscess that she has developing in her perineum. * General surgery recommending transfer to a tertiary facility to be seen by The proper specialist * BCx pending. UCx E. coli. Wound Cx GNR. * Consult infectious disease * Not a candidate for IV fluids given her end-stage renal disease. Patient did have a PICC line placed in the emergency room and has been started on norepinephrine. * Critical care medicine on for consultation * On norepinephrine. 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 ST * Hypothyroidism-Continue home Synthroid * GERD/esophageal stenosis/history of erosive gastropathy-Continue p.o. Protonix-Hemoglobin is stable * Pulmonary hypertension-Likely Group 2. Treat the underlying etiology. * History of HFpEF-Currently compensated * Restless leg syndrome-Continue ropinirole-Restart home nightly gabapentin * Diabetic neuropathy-gabapentin * Hyperlipidemia-Continue home fenofibrate-Continue home atorvastatin * Obesity Class II. * Depression-Continue home mirtazapine DVT prophylaxis subcu heparin CODE STATUS: Addressed with the patient. Patient wished to be full code. Disposition: awaiting on transfer to [facility]. Medications at Discharge Home Medications atorvastatin 10 mg tablet 10 mg PO QHS cholesterol 09/24/22 fenofibrate nanocrystallized 48 mg tablet (Tricor) 48 mg PO DAILY cholesterol 09/24/22 levothyroxine 150 mcg tablet 150 mcg PO DAILY@0600 THYROID 03/05/23 ropinirole 4 mg tablet 4 mg PO QHS restless legs 03/05/23 pen needle, diabetic 31 gauge x 1/4 (Easy Touch) 04/14/23 pantoprazole 40 mg tablet,delayed release 40 mg PO BID heartburn #60 tabs 05/08/23 sucralfate 1 gram tablet (Carafate) 1 g PO BID heartburn #60 tabs 05/08/23 difluprednate 0.05 % eye drops 1 drp ophthalmic (eye) DAILY bleeding behind eyes 08/26/23 nystatin 100,000 unit/gram topical powder (Nystop) 1 applic topical BID yeast 08/26/23 flash glucose sensor (FreeStyle Bandar 2 Sensor kit) 09/16/23 gabapentin 300 mg capsule 300 mg PO QHS #0 caps 09/25/23 midodrine 10 mg tablet 30 mg PO MOWEFR 12/31/23 sennosides 8.6 mg-docusate sodium 50 mg tablet (2-in-1 Laxative) 2 tab-cap PO DAILY PRN constipation 12/31/23 zinc sulfate 50 mg zinc (220 mg) tablet 50 mg PO DAILY 12/31/23 B complex-vitamin C-folic acid ER 400 mcg tablet,extended release 0.8 tab PO DAILY 01/07/24 midodrine 5 mg tablet 10 mg PO TIDCM 01/07/24 mirtazapine 15 mg tablet 15 mg PO QHS 01/07/24 daptomycin 500 mg intravenous solution 800 mg IV Q24H 10 days 01/16/24 insulin lispro 100 unit/mL subcutaneous pen (Humalog KwikPen (U-100) Insulin) See Protocol subcut TIDAC #0 mL 01/17/24 Hospital Course Procedures None, Dialysis and PICC line placement Summary of Care Provided Minutes Spent on Discharge: 35 Hospital Course: Patient presents with septic shock. Further related with underlying gluteal, perineal abscess. Patient had been on daptomycin for recent line infection which was continued and also added meropenem. PICC line was placed so that she may receive norepinephrine. Surgery was contacted from the emergency room who recommended transfer to tertiary facility given the complexity. Patient was excepted at [facility]. Culture came back positive for ESBL E. coli in the urine as well as wound culture. Transfer was delayed so patient was admitted to the intensive care unit where she remained stable despite being on pressors. Weight / BMI Weight Weight: 103.7 kg Body Mass Index (BMI) 38.0 ABG / Lab / Microbiology Data 01/27/24 04:40 01/27/24 04:40 Laboratory: Laboratory Results - last 24 hr 01/27/24 04:40: Diff Path Review Reviewed 01/27/24 11:15: POC Glucose 99 01/27/24 16:56: POC Glucose 119 H Microbiology: Microbiology 01/26/24 07:27 Urine, Catheterized Urine Culture - Preliminary ESBL Escherichia coli 01/26/24 13:01 Wound - Sacral Gram Stain - Final 01/26/24 13:01 Wound - Sacral Wound Culture - Preliminary ESBL Escherichia coli 01/26/24 06:22 Blood Culture (Wb) - Other Blood Culture - Preliminary No growth in 48 hours. 01/26/24 05:54 Blood Culture (Wb) - Anticubital Right Blood Culture - Preliminary No growth in 48 hours. D/C Instructions Discharge Diet: No restrictions Meaningful Use Info Meaningful Use Meaningful Use Diagnoses (Choose all that apply): None applicable Ischemic Stroke Statin Dosing Therapy Reference: STATIN DOSE THERAPY REFERENCE: * Patients > 75 years receive moderate or high dose statin therapy. * Patients 75 years or YOUNGER should receive HIGH intensity statin dose unless contraindicated. You will be required to document reason for non-treatment if statin daily dose does not meet guidelines. HIGH DOSE STATIN THERAPY DAILY Atorvastatin > than or = to 40 mg Rosuvastatin > than or = to 20 mg Amlodipine + Atorvastatin > than or = to 2.5/40 mg Ezetimibe + Simvastatin 10/80 mg Simvastatin 80mg Discharge Plan Admission Admit Date/Time: 01/26/24 11:15 Primary Reason for Your Visit: Septic shock Attending Provider: Jason Hernandez Primary Care Provider: Cortez Smith Consulting Providers: Sav Partida; Hal Muhammad; Gerson Cox; Ronal Salas; Dariel Meza; Ayesha Gómez; Daniel Winn; Calin Soares; Mirna Carreno; Melvin aLng; Prosper Delaney; Willy Vora; Reinier Sánchez; Jesus Ford; Jairo Mccann; Jose Luis Lechuga; Tobias Dickerson Discharge Orders/Prescriptions Prescriptions: No Action levothyroxine 150 mcg tablet 150 mcg PO DAILY@0600 atorvastatin 10 mg Tablet 10 mg PO QHS fenofibrate nanocrystallized [Tricor] 48 mg Tablet 48 mg PO DAILY ropinirole 4 mg tablet 4 mg PO QHS Rx Instructions: administer 1-3 hours before bedtime (DME) pen needle, diabetic [Easy Touch] 31 gauge x 1/4 needle MISCELLANEOUS sucralfate [Carafate] 1 gram tablet 1 g PO BID Qty: 60 1RF pantoprazole 40 mg tablet,delayed release (DR/EC) 40 mg PO BID Qty: 60 2RF difluprednate 0.05 % drops 1 drp ophthalmic (eye) DAILY Rx Instructions: BOTH EYES- HAD SHOTS IN HER EYES W BLEEDING BEHIND THEM nystatin [Nystop] 100,000 unit/gram powder 1 applic TOPICAL BID Rx Instructions: APPLY TO GROIN AND UNDER BREASTS midodrine 10 mg tablet 30 mg PO MOWEFR Rx Instructions: TAKE 3 TABLETS ONCE DAILY ON FRIDAY, FRIDAY, AND FRIDAY BEFORE DIALYSIS sennosides-docusate sodium [2-in-1 Laxative] 8.6-50 mg tablet 2 tab-cap PO DAILY PRN (Reason: constipation) zinc sulfate 50 mg zinc (220 mg) tablet 50 mg PO DAILY (DME) FreeStyle Bandar 2 Sensor Kit MISCELLANEOUS gabapentin 300 mg Capsule 300 mg PO QHS Qty: 0 0RF B complex-vitamin C-folic acid 400 mcg tablet extended release 0.8 tab PO DAILY mirtazapine 15 mg tablet 15 mg PO QHS midodrine 5 mg tablet 10 mg PO TIDCM daptomycin 500 mg recon soln 800 mg IV Q24H 10 Days Rx Instructions: Stop date 01/26/24. Dose with dialysis sessions: 800mg on Mondays, 800mg on Wednesdays, and 1200mg on Fridays. Dx: VRE bacteremia. Weekly bmp, cbc, CK, and LFT. Fax to [phone]. insulin lispro [Humalog KwikPen Insulin] 100 unit/mL Insulin Pen See Protocol subcut TIDAC Qty: 0 0RF Protocol: 3. Sliding Scale Insulin Med Dosing Condition: 150-189 mg/dl = 1 unit Condition: 190-229 mg/dl = 2 units Condition: 230-269 mg/dl = 3 units Condition: 270-309 mg/dl = 4 units Condition: 310-349 mg/dl = 5 units Condition: 350-399 mg/dl = 6 units Condition: 400-449 mg/dl = 7 units Condition: Greater than 449 call physician Protocol Text: - Use for Total Daily Dose of Insulin 37-55 units - Obsese, infected, or steroid patients MEDIUM DOSING ALGORITHIM Referrals / Follow Up: Cortez Smith DO [Primary Care Provider] - Disposition Disposition (needs filled in before D/C Order can be placed): Acute Care Hospital Charges/Coding Visit Charges Inpatient E&M: 87490 Disch Hosp >30min
--- NOTE | 2024-01-27 21:02 | NURSING ---
ICU 201: Jie Mckoy discharged via transport to [facility] on January 27, 2024 at 2100.
== END 2024-01-27 21:00 | disposition short-term general hospital (02) | DRG 871 ==
LOC: ED 08:02 → ICU 11:42
PROVIDERS: Internal Medicine Infectious Disease; Emergency Provider Emergency Medicine; PCP Internal Medicine
DX: A41.51 Sepsis due to Escherichia coli [E. coli] (principal); N18.6 End stage renal disease; R65.21 Severe sepsis with septic shock; I13.2 Hypertensive heart and chronic kidney disease with heart failure and with stage 5 chronic kidney disease, or end stage renal disease; J96.11 Chronic respiratory failure with hypoxia; I50.32 Chronic diastolic (congestive) heart failure; L03.312 Cellulitis of back [any part except buttock and flank]; L02.215 Cutaneous abscess of perineum; N39.0 Urinary tract infection, site not specified; Z16.12 Extended spectrum beta lactamase (ESBL) resistance; I27.22 Pulmonary hypertension due to left heart disease; L89.152 Pressure ulcer of sacral region, stage 2; E11.22 Type 2 diabetes mellitus with diabetic chronic kidney disease; J44.9 Chronic obstructive pulmonary disease, unspecified; E66.01 Morbid (severe) obesity due to excess calories; Z79.4 Long term (current) use of insulin; E11.42 Type 2 diabetes mellitus with diabetic polyneuropathy; E03.9 Hypothyroidism, unspecified; F32.A Depression, unspecified; G25.81 Restless legs syndrome; E78.5 Hyperlipidemia, unspecified; Z99.2 Dependence on renal dialysis; G47.33 Obstructive sleep apnea (adult) (pediatric); I95.89 Other hypotension; K21.9 Gastro-esophageal reflux disease without esophagitis; R13.10 Dysphagia, unspecified; Z91.199 Patient's noncompliance with other medical treatment and regimen due to unspecified reason; Z68.39 Body mass index [BMI] 39.0-39.9, adult; Z99.81 Dependence on supplemental oxygen; Z79.890 Hormone replacement therapy; Z79.899 Other long term (current) drug therapy
CPT/HCPCS: 36569; 71045; 72220; 73502; 74176; 80048; 80076; 81001; 82550; 82962; 83605; 84145; 85025; 87040; 87070; 87077; 87086; 87088; 87186; 87205; 90937; 97802; 97803; 99284; J0878; J2185; J7030; J7040; J7050; P9047; A4216; G0257; J3490